=== PATIENT | female | born 1965 | race Caucasian/White ===

== ENCOUNTER → 2017-10-24 01:06 | Outpatient (CLI) | payer MEDICARE, MEDICAID, SELFPAY ==
--- NOTE | 2017-10-24 13:10 | DI.REPORT_ITS ---
SYMPTOMS/DIAGNOSIS: SCREENING MAMMOGRAM: Mammograms were interpreted according to the usual protocol including computer analysis with CAD system, tomosynthesis and C view imaging. Comparison is made with exams from 2009 through 2015. The breasts are composed of scattered fibroglandular densities, breast density Category B. No suspicious masses or suspicious microcalcifications are seen. There has been no significant change. IMPRESSION: Category I B, negative mammogram. Routine screening is recommended. SA ASSESSMENT OF FINDINGS: Negative. Category 1. Patient will receive a letter notifying them of these results. BI-RADS category B. There are scattered areas of fibroglandular density.
== END ==
PROVIDERS: PCP Family Medicine; Visit Provider Nurse Practitioner Primary Care
DX: Z12.31 Encounter for screening mammogram for malignant neoplasm of breast (principal)
CPT/HCPCS: 77063; 77067

== ENCOUNTER 2017-12-22 17:17 | Emergency (ER) | payer MEDICARE, SELFPAY ==
[2017-12-22 17:31] VITALS: BP 149/85; PULSE 70; RESP 18; TEMP 36.7; O2SAT 96
--- NOTE | 2017-12-22 18:19 | DI.CT_ITS ---
SYMPTOM/DIAGNOSIS: RT POST EAR PAIN TEMPORAL BONE CT: CT examination of the temporal region was performed without contrast administration. The visualized brain is unremarkable in appearance. Orbital structures appear intact. Paranasal sinuses and mastoid air cells well aerated. No cervical mass or adenopathy. Severe degenerative changes of the temporal mandibular joints noted, left greater than right, with some fragmentation of the mandibular condyle on the left, progressed since 07/29/14. The middle and inner ear structures appear intact as visualized. CONCLUSION: No evidence of mastoiditis. Severe TMJ degenerative changes, left greater than right.
[2017-12-22] MEDS: Acetaminophen 500 MG TAB 1000 MG PO (18:23)
--- NOTE | 2017-12-22 18:24 | W.ED.GENAD ---
Discharge Plan Disposition Patient Disposition: HOME Condition: Good Discharge Details Chief Complaint: EarProblem Clinical Impression: Swelling of right ear, Acute right otitis media Primary Care Provider: Chano Neves ED Provider: Aaron Puente Home Meds and New Rx's Prescriptions: New amoxicillin 500 mg capsule 500 mg PO BID Qty: 20 RF: 0 Continue acetaminophen [Acetaminophen Extra Strength] 500 MG tablet 1,000 mg PO Q6H PRN RF: 0 amlodipine 10 MG tablet 10 mg PO DAILY RF: 0 aspirin 81 MG tablet,chewable 81 mg PO DAILY RF: 0 sucroferric oxyhydroxide [Velphoro] 500 MG tablet,chewable 500 - 1,000 mg PO as directed RF: 0 omeprazole 20 MG capsule,delayed release(DR/EC) 40 mg PO BID RF: 0 ibuprofen 400 MG tablet 400 mg PO Q6H PRN RF: 0 albuterol sulfate [ProAir HFA] 8.5 GM HFA aerosol inhaler 2 puff Inhalation Q4H PRN RF: 0 PROVENTIL HFA 18 GM HFA.AER.AD 2 puff Inhalation BID RF: 0 tiotropium bromide [Spiriva Respimat] 4 GM mist 1 puff Inhalation BID RF: 0 atorvastatin 40 MG tablet 40 mg PO DAILY Qty: 90 RF: 3 fosinopril 20 MG tablet 20 mg PO BID 3 Days Qty: 180 RF: 3 ondansetron 4 MG tablet,disintegrating 4 mg PO Q8H PRNQty: 10 RF: 1 minoxidil 2.5 MG tablet 2.5 - 5 mg PO BID RF: 0 metoprolol tartrate 50 MG tablet 50 mg PO BID RF: 0 Discharge Instructions Instructions: Otitis Media (ED) Discharge Data Discharge Physician: Aaron Puente Medical Decision Making Patient with hx of esrd on dialysis mwf who comes in with cc of right ear pain since yesterday. 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 Will start abx for AOM and d/c home, advised f/u with pcp and return precautions given Differential Diagnosis aom, mastotoiditis, cellulitis Imaging Data Radiologic Study: Attestation: I personally reviewed and interpreted this imaging study as follows: Imaging: CT Scan My impression: no acute findings Radiologist's impression: no acute findings on cat scan, left tmj djd HPI General Mode of arrival: ambulatory. Date/Time Provider Initiated Documentation: 12/22/17 17:51. Limitations to Documentation: no limitations. Information obtained by: patient. History of Present Illness 52 year old F presents to the emergency department with the chief complaint of right ear pain, described as severe, with intensity rated at 7. Quality is described as constant, Patient reports no radiation. Patient started experiencing this day(s) (1) and it has been constant. No relieving factors improve symptom(s), No exacerbating factors reported . Patient notes no other symptoms.. Related Data Home Medications Medication Instructions Recorded Confirmed acetaminophen [Acetaminophen Extra 1,000 mg PO Q6H PRN tab-cap 05/24/16 12/22/17 Strength] amlodipine 10 mg PO DAILY tab-cap 05/24/16 12/22/17 aspirin 81 mg PO DAILY tab-cap 05/24/16 12/22/17 sucroferric oxyhydroxide [Velphoro] 500 - 1,000 mg PO as directed 05/24/16 12/22/17 tab.chew omeprazole 40 mg PO BID tab-cap 05/30/17 12/22/17 Proventil Hfa 2 puff INHALATION BID inhaler 07/26/17 12/22/17 albuterol sulfate [ProAir HFA] 2 puff INHALATION Q4H PRN inhaler 07/26/17 12/22/17 atorvastatin 40 mg PO DAILY #90 tab-cap 07/26/17 12/22/17 fosinopril 20 mg PO BID 3 Days #180 tab-cap 07/26/17 12/22/17 ibuprofen 400 mg PO Q6H PRN tab-cap 07/26/17 12/22/17 tiotropium bromide [Spiriva 1 puff INHALATION BID 07/26/17 12/22/17 Respimat] ondansetron 4 mg PO Q8H PRN #10 tabef 08/11/17 12/22/17 metoprolol tartrate 50 mg PO BID tab-cap 08/27/17 12/22/17 minoxidil 2.5 - 5 mg PO BID 08/27/17 12/22/17 amoxicillin 500 mg PO BID #20 cap 10/12/18 Previous Rx's Medication Instructions Recorded atorvastatin 40 mg PO DAILY #90 tab-cap 07/26/17 amoxicillin 500 mg PO BID #20 cap 12/22/17 Allergies Allergy/AdvReac Type Severity Reaction Status Date / Time cephalexin monohydrate Allergy Severe trouble Unverified 12/22/17 17:37 [From Keflex] breathing allopurinol AdvReac Intermediate gout Unverified 12/22/17 17:37 breakout erythromycin base AdvReac Intermediate gout Unverified 12/22/17 17:37 breakout General Stated Complaint: EarProblem AWA: 3 Review of Systems Review of Systems All systems reviewed & are unremarkable except as noted in HPI and below Constitutional Denies chills, Denies fever(s) and Denies weakness Eyes Denies loss of vision ENT Denies change in voice Cardiovascular Denies chest pain and Denies dyspnea Respiratory Denies dyspnea Gastrointestinal Denies abdominal pain, Denies nausea and Denies vomiting Genitourinary Denies dysuria Musculoskeletal Denies joint swelling Integumentary/Breasts Denies rash Neurologic Denies loss of vision and Denies weakness Psychiatric Denies depression Endocrine Denies cold intolerance and Denies heat intolerance Allergic/Immunologic Reports urticaria PFSH Family History Mother Essential hypertension Personal history of malignant neoplasm Heart disease Pulmonary emphysema Father Personal history of malignant neoplasm Pulmonary emphysema Brother Hyperlipidemia Brother Hyperlipidemia Brother No problems noted. Social History Smoking/Tobacco Use Status: Former Tobacco Use Surgical History Abdominal hysterectomy (~2006) Repair of umbilical hernia TRANSPLANT, KIDNEY (~1997) Exam Const General: no acute distress Orientation: alert [facility] Head: normal to inspection Ears: other (right tm is red, external audiory meatus normal, has tenderness with mild swelling posterior to the right ear) General nose exam: external nose normal Mouth: moist mucous membranes Eyes General: appearance normal, both eyes and all related structures Neck Neck: normal visual inspection Resp Effort & Inspection: normal respiratory effort and able to speak in complete sentences Cardio Rate: regular rate Skin General skin exam: no rashes or lesions noted Neuro General: alert and oriented x3 Extrem General: normal to inspection Psych Mental Status: mental status grossly normal Course Vital Signs Temperature 36.7 C 10/12/18 17:31 Pulse 70 12/22/17 17:31 Respiratory Rate 18 12/22/17 17:31 Blood Pressure 149/85 H 12/22/17 17:31 Pulse Oximetry 96 12/22/17 17:31 Temperature 36.7 C 12/22/17 17:31 Temperature Source Temporal Artery Scan 12/22/17 17:31 Pulse 70 12/22/17 17:31 Respiratory Rate 18 12/22/17 17:31 Respiratory Effort Non-Labored 12/22/17 17:35 Blood Pressure 149/85 H 12/22/17 17:31 Blood Pressure Position Sitting 12/22/17 17:31 Pulse Oximetry 96 12/22/17 17:31 Oxygen Delivery Method Room Air 12/22/17 17:31 Oxygen Flow Rate 0 12/22/17 17:31 Pain Level 9 12/22/17 17:31 Lab/Test Results Lab/Test Results: Laboratory Tests Range/Units 12/22/17 12/22/17 18:11 18:11 WBC Cancelled RBC Cancelled Hgb Cancelled Hct Cancelled MCV Cancelled MCH Cancelled MCHC Cancelled RDW Cancelled Plt Count Cancelled MPV Cancelled Abs Immat Gran (auto) Cancelled Immature Gran % Cancelled Neutrophils % Cancelled Lymphocytes % Cancelled Monocytes % Cancelled Eosinophils % Cancelled Basophils % Cancelled Absolute Neutrophils Cancelled Band Neutrophils Cancelled Absolute Lymphocytes Cancelled Absolute Monocytes Cancelled Absolute Eosinophils Cancelled Absolute Basophils Cancelled Metamyelocytes Cancelled Myelocytes Cancelled Promyelocytes Cancelled Nucleated RBCs Cancelled Differential Comment Cancelled Atypical Lymphocytes Cancelled Other Cell Type Cancelled RBC Morphology Cancelled Polychromasia Cancelled Hypochromasia Cancelled Poikilocytosis Cancelled Basophilic Stippling Cancelled Anisocytosis Cancelled Microcytosis Cancelled Macrocytosis Cancelled Spherocytes Cancelled Target Cells Cancelled Tear Drop Cells Cancelled Ovalocytes Cancelled Stomatocytes Cancelled [place] Bodies Cancelled Gigi Cells Cancelled Acanthocytes (Spur) Cancelled Schistocytes Cancelled Sodium Cancelled Potassium Cancelled Chloride Cancelled Carbon Dioxide Cancelled Anion Gap Cancelled BUN Cancelled Creatinine Cancelled Estimated GFR/1.73 m2 Cancelled Glucose Cancelled Calcium Cancelled Total Bilirubin Cancelled AST Cancelled ALT Cancelled Alkaline Phosphatase Cancelled Total Protein Cancelled Albumin Cancelled
--- NOTE | 2017-12-22 19:19 | DI.VRAD_ITS ---
EXAM: CT Temporal Bones Without Intravenous Contrast CLINICAL HISTORY: 52 years old, female; Pain; Other: Ear pain; Patient HX: Right posterior ear pain; Additional info: R/O mastoiditis TECHNIQUE: Axial computed tomography images of the temporal bones without intravenous contrast. Coronal and sagittal reformatted images were created and reviewed. COMPARISON: CT HEAD WITHOUT CONTRAST 07/29/2014 11:25 AM FINDINGS: The middle ear is well aerated bilaterally. The mastoid air cells are well aerated bilaterally. The ossicles, semicircular canals and cochlea appear intact bilaterally. No focal bony erosions are present. Bones/joints: Marked erosive changes at the left temporal mandibular joint. No acute fracture. Soft tissues: No focal pathology. Dental: Dental caries. Oropharynx: Tonsilloliths. IMPRESSION: 1. No acute findings. No evidence of otitis or mastoiditis. 2. Marked erosive changes at the left temporomandibular joint. Dictated and Authenticated by: Korina Henderson MD. Ordering:JAMES CORDOVA MD
[2017-12-22] MEDS: Amoxicillin 500 MG CAP PO (19:30)
[2017-12-22 19:32] VITALS: TEMP 36.4
== END 2017-12-22 19:36 | disposition home or self-care (01) ==
PROVIDERS: Emergency Provider Emergency Medicine; PCP Family Medicine
DX: H66.91 Otitis media, unspecified, right ear (principal); R22.0 Localized swelling, mass and lump, head; Z99.2 Dependence on renal dialysis; I12.0 Hypertensive chronic kidney disease with stage 5 chronic kidney disease or end stage renal disease; N18.6 End stage renal disease; J44.9 Chronic obstructive pulmonary disease, unspecified; Z87.891 Personal history of nicotine dependence
CPT/HCPCS: 80053; 99284; 70480; 85025; 99285

== ENCOUNTER 2018-01-02 15:35 | Emergency (ER) | payer MEDICARE, SELFPAY ==
[2018-01-02] VITALS (24 sets, daily range): BP systolic 142–163; BP diastolic 76–104; PULSE 60–66; RESP 2–30; TEMP 36.8–37; O2SAT 90–99
--- NOTE | 2018-01-02 16:34 | DI.RAD_ITS ---
SYMPTOMS/DIAGNOSIS: COUGH, SHORTNESS OF BREATH PA AND LATERAL CHEST: Comparison is made with June,. Cardiomegaly and aortic valve prosthesis are again noted. There are leads overlying the chest. There is a density seen posteriorly, which may be in the left lower lobe, suspicious for pneumonia. The right lung appears clear. IMPRESSION: Findings suspicious for left lower lobe pneumonia.
[2018-01-02] MEDS: Albuterol/Ipratropium 3 ML UPD VIAL UPD (16:39)
--- NOTE | 2018-01-02 16:39 | W.ED.GENAD ---
Discharge Plan Disposition Patient Disposition: HOME Condition: Stable Discharge Details Chief Complaint: Chest Pain Clinical Impression: Pneumonia, COPD (chronic obstructive pulmonary disease) Primary Care Provider: Chano Neves ED Provider: Benjy Espinoza Home Meds and New Rx's Prescriptions: New levofloxacin 500 mg tablet 500 mg PO Q48H Qty: 3 RF: 0 No Action acetaminophen [Acetaminophen Extra Strength] 500 MG tablet 1,000 mg PO Q6H PRN RF: 0 amlodipine 10 MG tablet 10 mg PO DAILY RF: 0 aspirin 81 MG tablet,chewable 81 mg PO DAILY RF: 0 sucroferric oxyhydroxide [Velphoro] 500 MG tablet,chewable 500 - 1,000 mg PO as directed RF: 0 omeprazole 20 MG capsule,delayed release(DR/EC) 40 mg PO BID RF: 0 ibuprofen 400 MG tablet 400 mg PO Q6H PRN RF: 0 albuterol sulfate [ProAir HFA] 8.5 GM HFA aerosol inhaler 2 puff Inhalation Q4H PRN RF: 0 PROVENTIL HFA 18 GM HFA.AER.AD 2 puff Inhalation BID RF: 0 tiotropium bromide [Spiriva Respimat] 4 GM mist 1 puff Inhalation BID RF: 0 atorvastatin 40 MG tablet 40 mg PO DAILY Qty: 90 RF: 3 fosinopril 20 MG tablet 20 mg PO BID 3 Days Qty: 180 RF: 3 ondansetron 4 MG tablet,disintegrating 4 mg PO Q8H PRNQty: 10 RF: 1 minoxidil 2.5 MG tablet 2.5 - 5 mg PO BID RF: 0 metoprolol tartrate 50 MG tablet 50 mg PO BID RF: 0 amoxicillin 500 mg capsule 500 mg PO BID Qty: 20 RF: 0 Discharge Instructions Instructions: COPD (Chronic Obstructive Pulmonary Disease) (ED), Pneumonia (ED) Additional Instructions: Feel free to return to the emergency department for any new or significant worsening of symptoms. Otherwise take your normally prescribed medication for your COPD and other conditions as prescribed by your primary care provider. With your antibiotic you should take this every 48 hours. Referrals: Chano Neves [Primary Care Provider] - 1 week (Follow-up with your primary care provider for reassessment in the next week. ) Discharge Data Discharge Date/Time-TO BE ENTERED AT DEPARTURE: 01/02/18 18:24 Medical Decision Making <Benjy Espinoza NP - Last Filed: 01/10/18 09:19> Patient presenting to the emergency department with chief complaint of chest pain, cough, malaise for the past 2 days. Patient does have history of COPD but states that this feels different. Physical exam does reveal crackles and diminished lung sounds throughout. Plan to check labs including troponin, perform chest x-ray, and EKG. Suspect pneumonia versus COPD exacerbation more than ACS. Pending results patient given DuoNeb Review of labs is nondiagnostic with no severe leukocytosis and no elevation in troponin. X-ray shows opacities in the left lower lobe and otherwise findings consistent with COPD. Given these opacities I do suspect pneumonia so patient placed upon Levaquin. Patient did have improvement of symptoms after DuoNeb. Patient to return for any new or significant worsening of symptoms otherwise follow-up with primary care as needed for reassessment. After discussion of diagnosis and plan of care patient has no further needs, questions, or concerns and states clear understanding to return to the emergency department for any worsening symptoms. Lab Data Lab results reviewed: Yes I reviewed the patient's lab results. <Justice Cooper MD - Last Filed: 01/02/18 17:47> ECG Data Attestation: I personally reviewed and interpreted this ECG (s) as follows: (Sinus rhythm 64 bpm, right bundle branch block is present, normal axis, nondiagnostic and no significant changes compared to prior EKG from 06/23/2017) HPI <Benjy Espinoza NP - Last Filed: 01/10/18 09:19> General Mode of arrival: ambulatory. Date/Time Provider Initiated Documentation: 01/02/18 16:17. Limitations to Documentation: no limitations. Information obtained by: patient and RN notes reviewed. History of Present Illness 52 year old F presents to the emergency department with the chief complaint of Chest pain, described as moderate, with intensity rated at 5. Quality is described as dull, and is localized to the chest. Patient started experiencing this day(s) (2) and it has been constant. No relieving factors improve symptom(s), Other factors that worsen symptoms (activity) . Related Data Home Medications Medication Instructions Recorded Confirmed acetaminophen [Acetaminophen Extra 1,000 mg PO Q6H PRN tab-cap 05/24/16 12/22/17 Strength] amlodipine 10 mg PO DAILY tab-cap 05/24/16 12/22/17 aspirin 81 mg PO DAILY tab-cap 05/24/16 12/22/17 sucroferric oxyhydroxide [Velphoro] 500 - 1,000 mg PO as directed 05/24/16 12/22/17 tab.chew omeprazole 40 mg PO BID tab-cap 05/30/17 12/22/17 Proventil Hfa 2 puff INHALATION BID inhaler 07/26/17 12/22/17 albuterol sulfate [ProAir HFA] 2 puff INHALATION Q4H PRN inhaler 07/26/17 12/22/17 atorvastatin 40 mg PO DAILY #90 tab-cap 07/26/17 12/22/17 fosinopril 20 mg PO BID 3 Days #180 tab-cap 07/26/17 12/22/17 ibuprofen 400 mg PO Q6H PRN tab-cap 07/26/17 12/22/17 tiotropium bromide [Spiriva 1 puff INHALATION BID 07/26/17 12/22/17 Respimat] ondansetron 4 mg PO Q8H PRN #10 tabef 08/11/17 12/22/17 metoprolol tartrate 50 mg PO BID tab-cap 08/27/17 12/22/17 minoxidil 2.5 - 5 mg PO BID 08/27/17 12/22/17 amoxicillin 500 mg PO BID #20 cap 12/22/17 levofloxacin 500 mg PO Q48H #3 tab 01/02/18 Previous Rx's Medication Instructions Recorded atorvastatin 40 mg PO DAILY #90 tab-cap 07/26/17 amoxicillin 500 mg PO BID #20 cap 12/22/17 levofloxacin 500 mg PO Q48H #3 tab 01/02/18 Allergies Allergy/AdvReac Type Severity Reaction Status Date / Time cephalexin monohydrate Allergy Severe trouble Unverified 12/22/17 17:37 [From Keflex] breathing allopurinol AdvReac Intermediate gout Unverified 12/22/17 17:37 breakout erythromycin base AdvReac Intermediate gout Unverified 12/22/17 17:37 breakout General Stated Complaint: Chest Pain AWA: 2 Review of Systems <Benjy Espinoza NP - Last Filed: 01/10/18 09:19> Constitutional Denies chills, Reports fatigue, Denies fever(s) and Reports malaise ENT Denies hoarseness, Denies nasal congestion, Denies sinus pressure and Denies sore throat Cardiovascular Reports chest pain, Reports dyspnea and Reports dyspnea on exertion Respiratory Reports as per HPI, Reports chest congestion, Reports cough, Reports pain with cough, Reports dyspnea, Reports dyspnea on exertion and Denies wheezing Gastrointestinal Reports vomiting Musculoskeletal Denies joint swelling Integumentary/Breasts Denies rash Endocrine Reports fatigue Allergic/Immunologic Denies wheezing Exam <Benjy Espinoza NP - Last Filed: 01/10/18 09:19> Const General: cooperative, comfortable and no acute distress Orientation: alert, awake and oriented x3 HENMT Head: normal to inspection Ears: hearing grossly normal bilaterally Face and sinus: normal facial exam Mouth: oral mucosae normal Throat: posterior oropharynx normal Eyes General: appearance normal, both eyes and all related structures Conjunctivae: conjunctivae normal Sclera: sclerae normal Neck Neck: normal visual inspection, full ROM, no lymphadenopathy, meningismus present and no JVD Resp Effort & Inspection: normal respiratory effort, able to speak in complete sentences, no audible wheezes, cough Quality of cough: productive, not labored, no pursed lip breathing and no respiratory distress Auscultation: crackles on the right at the base and diminished lung sounds bilaterally throughout Cardio Rate: regular rate Rhythm: regular rhythm Heart Sounds: S1 normal, S2 normal and murmur systolic Skin General skin exam: no rashes or lesions noted and dry skin Rashes: no rashes Neuro General: alert, awake, oriented x3 and gait normal Course <Benjy Espinoza, KATALINA - Last Filed: 01/10/18 09:19> Vital Signs Temperature 37 C 01/02/18 15:59 Pulse 62 01/02/18 15:59 Respiratory Rate 24 01/02/18 15:59 Blood Pressure 149/76 H 01/02/18 15:59 Pulse Oximetry 99 01/02/18 15:59 Temperature 37 C 01/02/18 15:59 Temperature Source Skin 01/02/18 15:59 Pulse 62 01/02/18 15:59 Respiratory Rate 24 01/02/18 15:59 Respiratory Effort Labored 01/02/18 16:18 Respiratory Depth Normal 01/02/18 16:18 Respiratory Pattern Normal 01/02/18 16:18 Blood Pressure 149/76 H 01/02/18 15:59 Blood Pressure Position Sitting 01/02/18 15:59 Pulse Oximetry 99 01/02/18 15:59 Oxygen Delivery Method Room Air 01/02/18 15:59 Oxygen Flow Rate 0 01/02/18 15:59 Pain Level 5 01/02/18 15:59
[2018-01-02 16:42] LABS: Abs Immature Grans 0.04 k/cumm (0.0-0.09); Absolute Basophil Count 0.07 k/cumm (0.0-0.2); Absolute Eosinophil Count 0.45 k/cumm (0.0-0.7); Absolute Lymphocyte Count 1.16 k/cumm (1.2-3.4); Absolute Monocyte Count 0.94 k/cumm (0.11-0.7); Absolute Neutrophil Count 5.06 k/cumm (1.2-6.7); Basophils % 0.9; Eosinophils % 5.8; HCT 36.1 % (36.0-46.0); HGB 11.5 g/dL (12.0-15.5); Immature Grans % 0.5; Mean Corp. HGB Concentration 31.9 g/dL (32.0-36.0); Mean Corpuscular Hemoglobin 31.6 pg (27.0-33.0); Mean Corpuscular Volume 99.2 fL (80-95); Monocytes % 12.2; Neutrophils % 65.6; Platelet Count 177 x1000/uL (130-400); RBC 3.64 m/cumm (4.00-5.20); RBC Distribution Width 15.1 % (11.7-14.6); White Blood Cell Count 7.72 k/cumm (4.4-10.8)
--- NOTE | 2018-01-02 16:44 | ED.GENADUL_ITS ---
Discharge Plan Disposition Patient Disposition: HOME Condition: Stable Discharge Details Chief Complaint: Chest Pain Clinical Impression: Pneumonia, COPD (chronic obstructive pulmonary disease) Primary Care Provider: Chano Neves ED Provider: Benjy Espinoza Home Meds and New Rx's Prescriptions: New levofloxacin 500 mg tablet 500 mg PO Q48H Qty: 3 RF: 0 No Action acetaminophen [Acetaminophen Extra Strength] 500 MG tablet 1,000 mg PO Q6H PRN RF: 0 amlodipine 10 MG tablet 10 mg PO DAILY RF: 0 aspirin 81 MG tablet,chewable 81 mg PO DAILY RF: 0 sucroferric oxyhydroxide [Velphoro] 500 MG tablet,chewable 500 - 1,000 mg PO as directed RF: 0 omeprazole 20 MG capsule,delayed release(DR/EC) 40 mg PO BID RF: 0 ibuprofen 400 MG tablet 400 mg PO Q6H PRN RF: 0 albuterol sulfate [ProAir HFA] 8.5 GM HFA aerosol inhaler 2 puff Inhalation Q4H PRN RF: 0 PROVENTIL HFA 18 GM HFA.AER.AD 2 puff Inhalation BID RF: 0 tiotropium bromide [Spiriva Respimat] 4 GM mist 1 puff Inhalation BID RF: 0 atorvastatin 40 MG tablet 40 mg PO DAILY Qty: 90 RF: 3 fosinopril 20 MG tablet 20 mg PO BID 3 Days Qty: 180 RF: 3 ondansetron 4 MG tablet,disintegrating 4 mg PO Q8H PRNQty: 10 RF: 1 minoxidil 2.5 MG tablet 2.5 - 5 mg PO BID RF: 0 metoprolol tartrate 50 MG tablet 50 mg PO BID RF: 0 amoxicillin 500 mg capsule 500 mg PO BID Qty: 20 RF: 0 Discharge Instructions Instructions: COPD (Chronic Obstructive Pulmonary Disease) (ED), Pneumonia (ED) Additional Instructions: Feel free to return to the emergency department for any new or significant worsening of symptoms. Otherwise take your normally prescribed medication for your COPD and other conditions as prescribed by your primary care provider. With your antibiotic you should take this every 48 hours. Referrals: Chano Neves [Primary Care Provider] - 1 week (Follow-up with your primary care provider for reassessment in the next week. ) Discharge Data Discharge Date/Time-TO BE ENTERED AT DEPARTURE: 01/02/18 18:24 Medical Decision Making <Benjy Espinoza NP - Last Filed: 01/10/18 09:19> Patient presenting to the emergency department with chief complaint of chest pain, cough, malaise for the past 2 days. Patient does have history of COPD but states that this feels different. Physical exam does reveal crackles and diminished lung sounds throughout. Plan to check labs including troponin, perform chest x-ray, and EKG. Suspect pneumonia versus COPD exacerbation more than ACS. Pending results patient given DuoNeb Review of labs is nondiagnostic with no severe leukocytosis and no elevation in troponin. X-ray shows opacities in the left lower lobe and otherwise findings consistent with COPD. Given these opacities I do suspect pneumonia so patient placed upon Levaquin. Patient did have improvement of symptoms after DuoNeb. Patient to return for any new or significant worsening of symptoms otherwise follow-up with primary care as needed for reassessment. After discussion of diagnosis and plan of care patient has no further needs, questions, or concerns and states clear understanding to return to the emergency department for any worsening symptoms. Lab Data Lab results reviewed: Yes I reviewed the patient's lab results. <Justice Cooper MD - Last Filed: 01/02/18 17:47> ECG Data Attestation: I personally reviewed and interpreted this ECG (s) as follows: ( Sinus rhythm 64 bpm, right bundle branch block is present, normal axis, nondiagnostic and no significant changes compared to prior EKG from 06/23/2017) HPI <Benjy Espinoza NP - Last Filed: 01/10/18 09:19> General Mode of arrival: ambulatory . Date/Time Provider Initiated Documentation: 01/02/18 16:17 . Limitations to Documentation: no limitations . Information obtained by: patient and RN notes reviewed . History of Present Illness 52 year old F presents to the emergency department with the chief complaint of Chest pain, described as moderate, with intensity rated at 5. Quality is described as dull, and is localized to the chest. Patient started experiencing this day(s) (2) and it has been constant. No relieving factors improve symptom(s), Other factors that worsen symptoms (activity) . Related Data Home Medications Medication Instructions Recorded Confirmed acetaminophen [Acetaminophen Extra 1,000 mg PO Q6H PRN tab-cap 05/24/16 Strength] amlodipine 10 mg PO DAILY tab-cap 05/24/16 12/22/17 aspirin 81 mg PO DAILY tab-cap 05/24/16 12/22/17 sucroferric oxyhydroxide [Velphoro] 500 - 1,000 mg PO as directed 05/24/1612/22 tab.chew omeprazole 40 mg PO BID tab-cap 05/30/17 12/22/17 Proventil Hfa 2 puff INHALATION BID inhaler 07/26/17 12/22/17 albuterol sulfate [ProAir HFA] 2 puff INHALATION Q4H PRN inhaler 07/26/1712/22 atorvastatin 40 mg PO DAILY #90 tab-cap 07/26/17 12/22/17 fosinopril 20 mg PO BID 3 Days #180 tab-cap 07/26/17 12/22/17 ibuprofen 400 mg PO Q6H PRN tab-cap 07/26/17 12/22/17 tiotropium bromide [Spiriva 1 puff INHALATION BID 07/26/17 12/22/17 Respimat] ondansetron 4 mg PO Q8H PRN #10 tabef 08/11/17 12/22/17 metoprolol tartrate 50 mg PO BID tab-cap 08/27/17 12/22/17 minoxidil 2.5 - 5 mg PO BID 08/27/17 12/22/17 amoxicillin 500 mg PO BID #20 cap 12/22/17 levofloxacin 500 mg PO Q48H #3 tab 01/02/18 Previous Rx's Medication Instructions Recorded atorvastatin 40 mg PO DAILY #90 tab-cap 07/26/17 amoxicillin 500 mg PO BID #20 cap 12/22/17 levofloxacin 500 mg PO Q48H #3 tab 01/02/18 Allergies Allergy/AdvReac Type Severity Reaction Status Date / Time cephalexin monohydrate Allergy Severe trouble Unverified 12/22/17 17:37 [From Keflex] breathing allopurinol AdvReac Intermediate gout Unverified 12/22/17 17:37 breakout erythromycin base AdvReac Intermediate gout Unverified 12/22/17 17:37 breakout General Stated Complaint: Chest Pain AWA: 2 Review of Systems <Benjy Espinoza NP - Last Filed: 01/10/18 09:19> Constitutional Denies chills, Reports fatigue, Denies fever(s) and Reports malaise ENT Denies hoarseness, Denies nasal congestion, Denies sinus pressure and Denies sore throat Cardiovascular Reports chest pain, Reports dyspnea and Reports dyspnea on exertion Respiratory Reports as per HPI, Reports chest congestion, Reports cough, Reports pain with cough, Reports dyspnea, Reports dyspnea on exertion and Denies wheezing Gastrointestinal Reports vomiting Musculoskeletal Denies joint swelling Integumentary/Breasts Denies rash Endocrine Reports fatigue Allergic/Immunologic Denies wheezing Exam <Benjy Espinoza NP - Last Filed: 01/10/18 09:19> Const General: cooperative, comfortable and no acute distress Orientation: alert, awake and oriented x3 HENMT Head: normal to inspection Ears: hearing grossly normal bilaterally Face and sinus: normal facial exam Mouth: oral mucosae normal Throat: posterior oropharynx normal Eyes General: appearance normal, both eyes and all related structures Conjunctivae: conjunctivae normal Sclera: sclerae normal Neck Neck: normal visual inspection, full ROM, no lymphadenopathy, meningismus present and no JVD Resp Effort & Inspection: normal respiratory effort, able to speak in complete sentences, no audible wheezes, cough Quality of cough: productive, not labored, no pursed lip breathing and no respiratory distress Auscultation: crackles on the right at the base and diminished lung sounds bilaterally throughout Cardio Rate: regular rate Rhythm: regular rhythm Heart Sounds: S1 normal, S2 normal and murmur systolic Skin General skin exam: no rashes or lesions noted and dry skin Rashes: no rashes Neuro General: alert, awake, oriented x3 and gait normal Course <Benjy Espinoza, KATALINA - Last Filed: 01/10/18 09:19> Vital Signs Temperature 37 C 01/02/18 15:59 Pulse 62 01/02/18 15:59 Respiratory Rate 24 01/02/18 15:59 Blood Pressure 149/76 H 01/02/18 15:59 Pulse Oximetry 99 01/02/18 15:59 Temperature 37 C 01/02/18 15:59 Temperature Source Skin 01/02/18 15:59 Pulse 62 01/02/18 15:59 Respiratory Rate 24 01/02/18 15:59 Respiratory Effort Labored 01/02/18 16:18 Respiratory Depth Normal 01/02/18 16:18 Respiratory Pattern Normal 01/02/18 16:18 Blood Pressure 149/76 H 01/02/18 15:59 Blood Pressure Position Sitting 01/02/18 15:59 Pulse Oximetry 99 01/02/18 15:59 Oxygen Delivery Method Room Air 01/02/18 15:59 Oxygen Flow Rate 0 01/02/18 15:59 Pain Level 5 01/02/18 15:59
[2018-01-02 16:50] LABS: ALT 27 U/L (12-78); AST 30 U/L (15-37); Albumin 3.9 g/dL (3.4-5.0); Alkaline Phosphatase 285 U/L (46-116); BUN 29 mg/dL (7-18); Bilirubin, Total 0.9 mg/dL (0.2-1.0); Calcium 9.1 mg/dL (8.5-10.1); Chloride 95 mmol/L (98-107); Estimated GFR 5.84 (mL/min/1.73m2); Glucose 96 mg/dL (70-100); Potassium 4.3 mmol/L (3.5-5.1); Sodium 138 mmol/L (136-145); Total Protein 7.9 g/dL (6.4-8.2)
[2018-01-02 17:02] LABS: CREATININE 7.29 mg/dL (0.55-1.02); Troponin I < 0.02 ng/mL (0.00-0.06)
--- NOTE | 2018-01-02 17:22 | DI.VRAD_ITS ---
EXAM: XR Chest, 2 Views EXAM DATE/TIME: 01/02/2018 4:36 PM CLINICAL HISTORY: 52 years old, female; Signs and symptoms; Other: Cough, SOB TECHNIQUE: XR of the chest, 2 views. COMPARISON: CR CHEST 2 VIEWS PA,LAT 06/23/2017 11:12 AM FINDINGS: Lungs: Hyperexpanded lung knox consistent with COPD. Mild opacities in the left lower lobe were not present on the prior study. This may represent mild atelectasis or pneumonia. Pleural space: Unremarkable. No pleural effusion. No pneumothorax. Heart/Mediastinum: Cardiac valve replacement Stable cardiac silhouette Bones/joints: Median sternotomy IMPRESSION: 1. Hyperexpanded lung knox consistent with COPD. 2. Mild opacities in the left lower lobe were not present on the prior study. This may represent mild atelectasis or pneumonia. Dictated and Authenticated by: Yao Lanier MD. Ordering:JESSIKA SCHMIDT MD
[2018-01-02] MEDS: LEVOFLOXACIN 500 MG, LEVOFLOXACIN 250 MG 750 MG PO (18:19)
== END 2018-01-02 18:24 | disposition home or self-care (01) ==
PROVIDERS: Emergency Provider Nurse Practitioner Family; PCP Family Medicine
DX: J18.9 Pneumonia, unspecified organism (principal); J44.9 Chronic obstructive pulmonary disease, unspecified; Z87.891 Personal history of nicotine dependence; N18.6 End stage renal disease; I12.0 Hypertensive chronic kidney disease with stage 5 chronic kidney disease or end stage renal disease; Z99.2 Dependence on renal dialysis
CPT/HCPCS: 36415; 80053; 93005; 94640; 99285; 71046; 84484; 85025; 93010; 99284; J7620

== ENCOUNTER 2018-02-12 18:45 | Emergency (ER) | payer MEDICARE, SELFPAY ==
[2018-02-12 18:53] VITALS: BP 180/98; PULSE 69; RESP 18; TEMP 37.2; O2SAT 96
--- NOTE | 2018-02-12 19:00 | DI.CT_ITS ---
SYMPTOMS/DIAGNOSIS: PAIN S/P FALL CT BRAIN: Noncontrast examination. Comparison is 12/22/17 and 07/29/14. The ventricular system is normal in appearance. There is no evidence of an intracranial mass lesion. There is no evidence of a subdural or epidural hematoma. No focal areas of decreased attenuation are seen. IMPRESSION: Normal noncontrast cranial CT. CT SCAN OF THE CERVICAL SPINE: Multiple contiguous axial images of the cervical spine were obtained. Sagittal and coronal reformatted images were evaluated on the Siemens workstation. There is normal alignment of the cervical spine. No acute fractures or subluxations are seen. Moderate degenerative changes are seen in the cervical spine from C3-4 though C5-C6. Prevertebral soft tissues are unremarkable. The odontoid and lateral masses are well aligned. IMPRESSION: No acute fractures or subluxations in the cervical spine. CT SCAN OF THE CHEST, ABDOMEN AND PELVIS AND RECONSTRUCTIONS OF THE THORACIC AND LUMBAR SPINE: CT SCAN OF THE ABDOMEN AND PELVIS AND RECONSTRUCTIONS OF THE LUMBAR SPINE: Comparison is 03/21/17. Lack of IV contrast does limit evaluation of the abdominal organ injury. The liver is normal in size. There is a nodular contour of the liver suggesting hepatic cirrhosis. There are gallstones present. No biliary ductal dilatation is seen. The spleen appears mildly enlarged. The pancreas and adrenal glands are unremarkable. The kidneys are again noted to be severely atrophic. The urinary bladder is unremarkable as visualized. The reproductive organs are unremarkable. There is atherosclerosis of the abdominal aorta. There is ectasia of the proximal abdominal aorta. There is diverticulosis of the colon, but no evidence of acute diverticulitis. No evidence of bowel obstruction or bowel inflammatory process. No findings to suggest an acute appendicitis are present. A normal appendix is seen in the right lower quadrant. There is a small amount of free intraperitoneal fluid, particularly around the liver. This has decreased in size compared to the examination from 03/21/17. No significant adenopathy is appreciated. The lumbar spine is intact. No acute fracture or subluxation is seen. Degenerative changes are seen in the lumbar spine, particularly the facets at L4 -5 and L5-S1. The pelvis and visualized proximal femurs are unremarkable and intact. IMPRESSION: 1. No evidence of an acute fracture or dislocation. 2. No definite abdominal or pelvic organ injury. Lack of IV contrast does limit evaluation of visceral injury. Followup as clinically appropriate. 3. Findings suggestive of hepatic cirrhosis. 4. Cholelithiasis without CT evidence of acute cholecystitis. 5. Diverticulosis without evidence of acute diverticulitis. CT SCAN OF THE CHEST AND CT RECONSTRUCTIONS OF THE THORACIC SPINE: There is patient motion artifact present. Emphysematous changes are seen in the lungs. Dependent atelectatic changes are seen in the lung bases. No focal consolidating infiltrates are present. There is a 3 mm pleural-based nodule in the left lower lobe. No other pulmonary nodules are seen. The tracheobronchial tree is unremarkable. No pleural effusion or pneumothorax is identified. There is cardiomegaly present. Coronary artery calcifications are seen. Sternal wires are in place. the patient is status post aortic valve replacement. There is calcification of the mitral annulus. No significant thoracic adenopathy is seen. There is atherosclerosis of the thoracic aorta, but no aneurysmal dilatation is appreciated. The thoracic spine is intact. No acute fracture or subluxation is seen. Wires are seen in the sternum. No acute rib fracture is appreciated. IMPRESSION: 1. No evidence of an acute fracture or dislocation. 2. No evidence of acute thoracic injury. Lack of IV contrast does limit evaluation.
[2018-02-12] MEDS: Acetaminophen 500 MG TAB 1000 MG PO (19:06)
--- NOTE | 2018-02-12 19:15 | W.ED.GENAD ---
Discharge Plan Disposition Patient Disposition: HOME Condition: Good Discharge Details Chief Complaint: Trauma Clinical Impression: Blunt head trauma, Cervical strain, Blunt abdominal trauma, Blunt chest trauma Reason For Visit: Fall Primary Care Provider: Chano Neves ED Provider: [facility] Meds and New Rx's Prescriptions: New cyclobenzaprine 10 mg tablet 10 mg PO TID PRN (Reason: muscle spasm) Qty: 20 RF: 0 Continue acetaminophen [Acetaminophen Extra Strength] 500 MG tablet 1,000 mg PO Q6H PRN RF: 0 amlodipine 10 MG tablet 10 mg PO DAILY RF: 0 aspirin 81 MG tablet,chewable 81 mg PO DAILY RF: 0 sucroferric oxyhydroxide [Velphoro] 500 MG tablet,chewable 500 - 1,000 mg PO as directed RF: 0 omeprazole 20 MG capsule,delayed release(DR/EC) 40 mg PO BID RF: 0 ibuprofen 400 MG tablet 400 mg PO Q6H PRN RF: 0 albuterol sulfate [ProAir HFA] 8.5 GM HFA aerosol inhaler 2 puff Inhalation Q4H PRN RF: 0 PROVENTIL HFA 18 GM HFA.AER.AD 2 puff Inhalation BID RF: 0 tiotropium bromide [Spiriva Respimat] 4 GM mist 1 puff Inhalation BID RF: 0 atorvastatin 40 MG tablet 40 mg PO DAILY Qty: 90 RF: 3 fosinopril 20 MG tablet 20 mg PO BID 3 Days Qty: 180 RF: 3 ondansetron 4 MG tablet,disintegrating 4 mg PO Q8H PRNQty: 10 RF: 1 minoxidil 2.5 MG tablet 2.5 - 5 mg PO BID RF: 0 metoprolol tartrate 50 MG tablet 50 mg PO BID RF: 0 levofloxacin 500 mg tablet 500 mg PO Q48H Qty: 3 RF: 0 amoxicillin 500 mg capsule 500 mg PO BID Qty: 20 RF: 0 Discharge Instructions Instructions: Cervical Strain (ED) Additional Instructions: follow up with your primary care provider in 1-2 weeks if still in pain and also discuss the findings on the cat scan of possible liver damage that could have been from alcohol use Medical Decision Making 52 yo female comes in with back elizabeth, headache and neck pain since falling earlier, she states she fell back after tripping over cat liter. Denies loc but has had headache, neck pain, upper and lower back pain and upper abdominal pain since. Given location of all of her pain and the fall will obtan CT imaging to eval for fx/dislocation. No preceding symptoms such as chest pain/pressure or lightheadedness to suggest syncope/presyncope all imaging shows no acute findings, cleared c spine clinically and has no pain in neck at this time. CT did show possible cirrhosis, she states when she was younger she did drink heavily, hasn't drank in 6 years. She was advised to f/u with pcp regarding this and will d/c home. No longer has any abdominal tenderness on exam Differential Diagnosis contusion, fracture, dislocation Imaging Data Radiologic Study: Attestation: I personally reviewed and interpreted this imaging study as follows: Imaging: CT Scan Radiologist's impression: Ct head/c spine/chest/abd/pelvis shows no acute emergent findings HPI General Mode of arrival: ambulatory. Date/Time Provider Initiated Documentation: 02/12/18 18:46. Limitations to Documentation: no limitations. Information obtained by: patient. History of Present Illness 52 year old F presents to the emergency department with the chief complaint of back pain, described as severe, Patient reports no radiation. Patient started experiencing this hour(s) (4) and it has been constant. No relieving factors improve symptom(s), No exacerbating factors reported . Patient notes no other symptoms.. Patient did receive the following treatments prior to arrival, none Related Data Home Medications Medication Instructions Recorded Confirmed acetaminophen [Acetaminophen Extra 1,000 mg PO Q6H PRN tab-cap 05/24/16 12/22/17 Strength] amlodipine 10 mg PO DAILY tab-cap 05/24/16 12/22/17 aspirin 81 mg PO DAILY tab-cap 05/24/16 12/22/17 sucroferric oxyhydroxide [Velphoro] 500 - 1,000 mg PO as directed 05/24/16 12/22/17 tab.chew omeprazole 40 mg PO BID tab-cap 05/30/17 12/22/17 Proventil Hfa 2 puff INHALATION BID inhaler 07/26/17 12/22/17 albuterol sulfate [ProAir HFA] 2 puff INHALATION Q4H PRN inhaler 07/26/17 12/22/17 atorvastatin 40 mg PO DAILY #90 tab-cap 07/26/17 12/22/17 fosinopril 20 mg PO BID 3 Days #180 tab-cap 07/26/17 12/22/17 ibuprofen 400 mg PO Q6H PRN tab-cap 07/26/17 12/22/17 tiotropium bromide [Spiriva 1 puff INHALATION BID 07/26/17 12/22/17 Respimat] ondansetron 4 mg PO Q8H PRN #10 tabef 08/11/17 12/22/17 metoprolol tartrate 50 mg PO BID tab-cap 08/27/17 12/22/17 minoxidil 2.5 - 5 mg PO BID 08/27/17 12/22/17 amoxicillin 500 mg PO BID #20 cap 12/22/17 levofloxacin 500 mg PO Q48H #3 tab 01/02/18 cyclobenzaprine 10 mg PO TID PRN #20 tab 02/12/18 Previous Rx's Medication Instructions Recorded atorvastatin 40 mg PO DAILY #90 tab-cap 07/26/17 amoxicillin 500 mg PO BID #20 cap 12/22/17 levofloxacin 500 mg PO Q48H #3 tab 01/02/18 cyclobenzaprine 10 mg PO TID PRN #20 tab 02/12/18 Allergies Allergy/AdvReac Type Severity Reaction Status Date / Time cephalexin monohydrate Allergy Severe trouble Unverified 02/12/18 18:52 [From Keflex] breathing allopurinol AdvReac Intermediate gout Unverified 02/12/18 18:52 breakout erythromycin base AdvReac Intermediate gout Unverified 02/12/18 18:52 breakout General Stated Complaint: Trauma AWA: 2 Review of Systems Review of Systems All systems reviewed & are unremarkable except as noted in HPI and below Constitutional Denies chills, Denies fever(s) and Denies weakness Eyes Denies loss of vision ENT Denies change in voice Cardiovascular Denies chest pain and Denies dyspnea Respiratory Denies dyspnea Gastrointestinal Denies vomiting Genitourinary Denies dysuria Musculoskeletal Denies joint swelling Integumentary/Breasts Denies rash Neurologic Denies loss of vision and Denies weakness Allergic/Immunologic Denies urticaria PFSH Aortic stenosis (Chronic) COPD (chronic obstructive pulmonary disease) (Chronic) ESRD on dialysis (Chronic) Family History Mother Essential hypertension Personal history of malignant neoplasm Heart disease Pulmonary emphysema Father Personal history of malignant neoplasm Pulmonary emphysema Brother Hyperlipidemia Brother Hyperlipidemia Brother No problems noted. Medical History Aortic stenosis (Chronic) COPD (chronic obstructive pulmonary disease) (Chronic) ESRD on dialysis (Chronic) Social History Smoking/Tobacco Use Status: Former Tobacco Use Surgical History Abdominal hysterectomy (~2006) Repair of umbilical hernia TRANSPLANT, KIDNEY (~1997) Social History Smoking/Tobacco Use Status: Former Tobacco Use Exam Const General: no acute distress Orientation: alert HENMT Head: normal to inspection Ears: external ears normal General nose exam: external nose normal Mouth: moist mucous membranes Eyes General: appearance normal, both eyes and all related structures Neck Neck: normal visual inspection Resp Effort & Inspection: normal respiratory effort and able to speak in complete sentences Cardio Rate: regular rate Skin General skin exam: no rashes or lesions noted Neuro General: alert and oriented x3 Extrem General: normal to inspection Psych Mental Status: mental status grossly normal Course Vital Signs Temperature 37.2 C 02/12/18 18:53 Pulse 69 02/12/18 18:53 Respiratory Rate 18 02/12/18 18:53 Blood Pressure 180/98 H 02/12/18 18:53 Pulse Oximetry 96 02/12/18 18:53 Temperature 37.2 C 02/12/18 18:53 Temperature Source Temporal Artery Scan 02/12/18 18:53 Pulse 69 02/12/18 18:53 Respiratory Rate 18 02/12/18 18:53 Respiratory Effort 02/12/18 18:57 Respiratory Depth Normal 02/12/18 18:57 Blood Pressure 180/98 H 02/12/18 18:53 Pulse Oximetry 96 02/12/18 18:53 Oxygen Delivery Method Room Air 02/12/18 18:53 Oxygen Flow Rate 0 02/12/18 18:53 Pain Level 8 02/12/18 19:06
--- NOTE | 2018-02-12 19:19 | ED.GENADUL_ITS ---
Discharge Plan Disposition Patient Disposition: HOME Condition: Good Discharge Details Chief Complaint: Trauma Clinical Impression: Blunt head trauma, Cervical strain, Blunt abdominal trauma, Blunt chest trauma Reason For Visit: Fall Primary Care Provider: Chano Neves ED Provider: Aaron Puente Davidson Meds and New Rx's Prescriptions: New cyclobenzaprine 10 mg tablet 10 mg PO TID PRN (Reason: muscle spasm) Qty: 20 RF: 0 Continue acetaminophen [Acetaminophen Extra Strength] 500 MG tablet 1,000 mg PO Q6H PRN RF: 0 amlodipine 10 MG tablet 10 mg PO DAILY RF: 0 aspirin 81 MG tablet,chewable 81 mg PO DAILY RF: 0 sucroferric oxyhydroxide [Velphoro] 500 MG tablet,chewable 500 - 1,000 mg PO as directed RF: 0 omeprazole 20 MG capsule,delayed release(DR/EC) 40 mg PO BID RF: 0 ibuprofen 400 MG tablet 400 mg PO Q6H PRN RF: 0 albuterol sulfate [ProAir HFA] 8.5 GM HFA aerosol inhaler 2 puff Inhalation Q4H PRN RF: 0 PROVENTIL HFA 18 GM HFA.AER.AD 2 puff Inhalation BID RF: 0 tiotropium bromide [Spiriva Respimat] 4 GM mist 1 puff Inhalation BID RF: 0 atorvastatin 40 MG tablet 40 mg PO DAILY Qty: 90 RF: 3 fosinopril 20 MG tablet 20 mg PO BID 3 Days Qty: 180 RF: 3 ondansetron 4 MG tablet,disintegrating 4 mg PO Q8H PRNQty: 10 RF: 1 minoxidil 2.5 MG tablet 2.5 - 5 mg PO BID RF: 0 metoprolol tartrate 50 MG tablet 50 mg PO BID RF: 0 levofloxacin 500 mg tablet 500 mg PO Q48H Qty: 3 RF: 0 amoxicillin 500 mg capsule 500 mg PO BID Qty: 20 RF: 0 Discharge Instructions Instructions: Cervical Strain (ED) Additional Instructions: follow up with your primary care provider in 1-2 weeks if still in pain and also discuss the findings on the cat scan of possible liver damage that could have been from alcohol use Medical Decision Making 52 yo female comes in with back elizabeth, headache and neck pain since falling earlier, she states she fell back after tripping over cat liter. Denies loc but has had headache, neck pain, upper and lower back pain and upper abdominal pain since. Given location of all of her pain and the fall will obtan CT imaging to eval for fx/dislocation. No preceding symptoms such as chest pain/pressure or lightheadedness to suggest syncope/presyncope all imaging shows no acute findings, cleared c spine clinically and has no pain in neck at this time. CT did show possible cirrhosis, she states when she was younger she did drink heavily, hasn't drank in 6 years. She was advised to f/u with pcp regarding this and will d/c home. No longer has any abdominal tenderness on exam Differential Diagnosis contusion, fracture, dislocation Imaging Data Radiologic Study: Attestation: I personally reviewed and interpreted this imaging study as follows: Imaging: CT Scan Radiologist's impression: Ct head/c spine/chest/abd/pelvis shows no acute emergent findings HPI General Mode of arrival: ambulatory . Date/Time Provider Initiated Documentation: 02/12/18 18:46 . Limitations to Documentation: no limitations . Information obtained by: patient . History of Present Illness 52 year old F presents to the emergency department with the chief complaint of back pain, described as severe, Patient reports no radiation. Patient started experiencing this hour(s) (4) and it has been constant. No relieving factors improve symptom(s), No exacerbating factors reported . Patient notes no other symptoms.. Patient did receive the following treatments prior to arrival, none Related Data Home Medications Medication Instructions Recorded Confirmed acetaminophen [Acetaminophen Extra 1,000 mg PO Q6H PRN tab-cap 05/24/16 Strength] amlodipine 10 mg PO DAILY tab-cap 05/24/16 12/22/17 aspirin 81 mg PO DAILY tab-cap 05/24/16 12/22/17 sucroferric oxyhydroxide [Velphoro] 500 - 1,000 mg PO as directed 05/24/1612/22 tab.chew omeprazole 40 mg PO BID tab-cap 05/30/17 12/22/17 Proventil Hfa 2 puff INHALATION BID inhaler 07/26/17 12/22/17 albuterol sulfate [ProAir HFA] 2 puff INHALATION Q4H PRN inhaler 07/26/1712/22 atorvastatin 40 mg PO DAILY #90 tab-cap 07/26/17 12/22/17 fosinopril 20 mg PO BID 3 Days #180 tab-cap 07/26/17 12/22/17 ibuprofen 400 mg PO Q6H PRN tab-cap 07/26/17 12/22/17 tiotropium bromide [Spiriva 1 puff INHALATION BID 07/26/17 12/22/17 Respimat] ondansetron 4 mg PO Q8H PRN #10 tabef 08/11/17 12/22/17 metoprolol tartrate 50 mg PO BID tab-cap 08/27/17 12/22/17 minoxidil 2.5 - 5 mg PO BID 08/27/17 12/22/17 amoxicillin 500 mg PO BID #20 cap 12/22/17 levofloxacin 500 mg PO Q48H #3 tab 01/02/18 cyclobenzaprine 10 mg PO TID PRN #20 tab 02/12/18 Previous Rx's Medication Instructions Recorded atorvastatin 40 mg PO DAILY #90 tab-cap 07/26/17 amoxicillin 500 mg PO BID #20 cap 12/22/17 levofloxacin 500 mg PO Q48H #3 tab 01/02/18 cyclobenzaprine 10 mg PO TID PRN #20 tab 02/12/18 Allergies Allergy/AdvReac Type Severity Reaction Status Date / Time cephalexin monohydrate Allergy Severe trouble Unverified 02/12/18 18:52 [From Keflex] breathing allopurinol AdvReac Intermediate gout Unverified 02/12/18 18:52 breakout erythromycin base AdvReac Intermediate gout Unverified 02/12/18 18:52 breakout General Stated Complaint: Trauma AWA: 2 Review of Systems Review of Systems All systems reviewed & are unremarkable except as noted in HPI and below Constitutional Denies chills, Denies fever(s) and Denies weakness Eyes Denies loss of vision ENT Denies change in voice Cardiovascular Denies chest pain and Denies dyspnea Respiratory Denies dyspnea Gastrointestinal Denies vomiting Genitourinary Denies dysuria Musculoskeletal Denies joint swelling Integumentary/Breasts Denies rash Neurologic Denies loss of vision and Denies weakness Allergic/Immunologic Denies urticaria PFSH Aortic stenosis (Chronic) COPD (chronic obstructive pulmonary disease) (Chronic) ESRD on dialysis (Chronic) Family History Mother Essential hypertension Personal history of malignant neoplasm Heart disease Pulmonary emphysema Father Personal history of malignant neoplasm Pulmonary emphysema Brother Hyperlipidemia Brother Hyperlipidemia Brother No problems noted. Medical History Aortic stenosis (Chronic) COPD (chronic obstructive pulmonary disease) (Chronic) ESRD on dialysis (Chronic) Social History Smoking/Tobacco Use Status: Former Tobacco Use Surgical History Abdominal hysterectomy (~2006) Repair of umbilical hernia TRANSPLANT, KIDNEY (~1997) Social History Smoking/Tobacco Use Status: Former Tobacco Use Exam Const General: no acute distress Orientation: alert HENMT Head: normal to inspection Ears: external ears normal General nose exam: external nose normal Mouth: moist mucous membranes Eyes General: appearance normal, both eyes and all related structures Neck Neck: normal visual inspection Resp Effort & Inspection: normal respiratory effort and able to speak in complete sentences Cardio Rate: regular rate Skin General skin exam: no rashes or lesions noted Neuro General: alert and oriented x3 Extrem General: normal to inspection Psych Mental Status: mental status grossly normal Course Vital Signs Temperature 37.2 C 02/12/18 18:53 Pulse 69 02/12/18 18:53 Respiratory Rate 18 02/12/18 18:53 Blood Pressure 180/98 H 02/12/18 18:53 Pulse Oximetry 96 02/12/18 18:53 Temperature 37.2 C 02/12/18 18:53 Temperature Source Temporal Artery Scan 02/12/18 18:53 Pulse 69 02/12/18 18:53 Respiratory Rate 18 02/12/18 18:53 Respiratory Effort 02/12/18 18:57 Respiratory Depth Normal 02/12/18 18:57 Blood Pressure 180/98 H 02/12/18 18:53 Pulse Oximetry 96 02/12/18 18:53 Oxygen Delivery Method Room Air 02/12/18 18:53 Oxygen Flow Rate 0 02/12/18 18:53 Pain Level 8 02/12/18 19:06
[2018-02-12 19:32] VITALS: PULSE 64; RESP 16; O2SAT 93
[2018-02-12 19:40] VITALS: PULSE 63; RESP 18; O2SAT 92
--- NOTE | 2018-02-12 19:44 | DI.VRAD_ITS ---
EXAM: CT Chest Without Contrast EXAM DATE/TIME: 02/12/2018 7:01 PM CLINICAL HISTORY: 52 years old, female; Injury or trauma; Fall; Patient HX: Pain S/P fall with back pain headache and neck pain. TECHNIQUE: Axial computed tomography images of the chest without intravenous contrast. Coronal and sagittal reformatted images were created and reviewed. COMPARISON: CTA chest 04/26/2016. FINDINGS: Limitations: Absence of IV contrast decreases soft tissue differentiation and sensitivity for detecting pathology. Thyroid: The thyroid gland is normal. Lungs: There is minor linear scarring or atelectasis in the left lung.There are dependent changes in the lung bases.There are no focal air space opacities. There is a stable 3 mm pleural-based nodule in the left lower lobe. Pleural space: Normal. No pneumothorax. No pleural effusion. Heart: The heart demonstrates moderate diffuse enlargement.There are coronary artery calcifications.The patient is status post aortic valve replacement. There is calcification of the mitral valve annulus.There is no evidence of pericardial fluid collections. Mediastinum: The trachea and main bronchi are patent. Aorta: The aorta is normal in caliber.The vasculature demonstrates diffuse moderate atherosclerotic calcification. Lymph nodes: Unremarkable. No enlarged lymph nodes. Bones/joints: There are sternal wires consistent with sternotomy incision.There is no evidence of acute fracture. No dislocation. Soft tissues: Unremarkable. IMPRESSION: 1. No evidence of acute fracture or dislocation. 2. No acute pulmonary parenchymal process, pleural effusion or pneumothorax. EXAM: CT Abdomen and Pelvis Without Intravenous Contrast EXAM DATE/TIME: 02/12/2018 7:01 PM CLINICAL HISTORY: 52 years old, female; Injury or trauma; Fall; Patient HX: Pain S/P fall TECHNIQUE: Axial computed tomography images of the abdomen and pelvis without intravenous contrast. Coronal and sagittal reformatted images were created and reviewed. COMPARISON: CT ABD PELVIS WO CONTRAST 03/21/2017 5:09 PM FINDINGS: Limitations: Absence of IV contrast decreases soft tissue differentiation and sensitivity for detecting pathology. Lower thorax: No acute findings. ABDOMEN: Liver: There is a finely nodular contour to the liver, suggestive of cirrhosis. Gallbladder and bile ducts: There is cholelithiasis with no evidence of acute cholecystitis. The gallbladder is not distended. Pancreas: Normal. No ductal dilation. Spleen: Normal. No splenomegaly. Adrenals: Normal. No mass. Kidneys and ureters: The kidneys are severely atrophic. Stomach and bowel: There is diverticulosis with no evidence of acute diverticulitis. Appendix: No evidence of appendicitis. PELVIS: Bladder: Unremarkable as visualized. Reproductive: Unremarkable as visualized. ABDOMEN and PELVIS: Intraperitoneal space: There is a small amount of nonspecific free intraperitoneal fluid present. This has decreased in comparison to the prior examination.There is no free intraperitoneal air. Bones/joints: There is no evidence of acute fracture. No dislocation. Soft tissues: There has been a left lower quadrant ventral hernia repair. There has been midline ventral hernia repair. Vasculature: The vasculature demonstrates diffuse marked atherosclerotic calcification. The aorta is ectatic.There is no evidence of an aortic aneurysm. Lymph nodes: Normal. No enlarged lymph nodes. IMPRESSION: 1. No evidence of acute fracture or dislocation. 2. There is no definite evidence of visceral trauma. Absence of IV contrast decreases sensitivity for detecting visceral injury. Clinical correlation and close clinical follow-up is recommended to exclude occult injury. 3. There is a finely nodular contour to the liver, suggestive of cirrhosis. 4. There is cholelithiasis with no evidence of acute cholecystitis. 5. There is diverticulosis with no evidence of acute diverticulitis. Remainder of non-emergent findings as described above. Dictated and Authenticated by: Arlene Asencio MD. Ordering:JAMES CORDOVA MD
[2018-02-12 19:46] VITALS: BP 140/88; PULSE 64; RESP 20; O2SAT 93
--- NOTE | 2018-02-12 19:46 | DI.VRAD_ITS ---
EXAM: CT Head Without Intravenous Contrast EXAM DATE/TIME: 02/12/2018 7:01 PM CLINICAL HISTORY: 52 years old, female; Injury or trauma; Fall; Initial encounter; Injury details: Pain S/P fall TECHNIQUE: Axial computed tomography images of the head/brain without intravenous contrast. Coronal and sagittal reformatted images were created and reviewed. COMPARISON: CT HEAD WITHOUT CONTRAST 07/29/2014 11:25 AM FINDINGS: Brain: No acute intracranial hemorrhage identified. No midline shift. There are vascular calcifications. Ventricles: Normal. No ventriculomegaly. Bones/joints: Normal. No acute fracture. Sinuses: Normal as visualized. No acute sinusitis. Mastoid air cells: Normal as visualized. No mastoid effusion. Soft tissues: Normal. IMPRESSION: 1. No acute intracranial hemorrhage identified. Other findings as above. If symptoms remain concerning, MRI would be beneficial. EXAM: CT Cervical Spine Without Intravenous Contrast EXAM DATE/TIME: 02/12/2018 7:01 PM CLINICAL HISTORY: 52 years old, female; Injury or trauma; Fall; Initial encounter; Injury details: Pain S/P fall TECHNIQUE: Axial computed tomography images of the cervical spine without intravenous contrast. Coronal and sagittal reformatted images were created and reviewed. COMPARISON: CT HEAD WITHOUT CONTRAST 07/29/2014 11:25 AM FINDINGS: Vertebrae: No loss of vertebral body height or listhesis. Skeletal degenerative changes are seen. Discs/Spinal canal/Neural foramina: There is disc space narrowing at C4-5 and C5-6. There is a disc bulge versus protrusion at C3-4. If the patient is symptomatic, MRI would be beneficial. Soft tissues: Gas is noted in the esophagus which can be seen with reflux. Possible paraesophageal surgical clips are seen on series 6 image 49. There are vascular calcifications.. Lungs: Lung apices are normal. IMPRESSION: 1. No loss in vertebral body height or listhesis seen. 2. Disc space narrowing at C4-5 and C5-6. Disc bulge versus protrusion at C3-4. If the patient is symptomatic, MRI would be beneficial. 3. Other findings as above. Dictated and Authenticated by: Hortencia Mobley MD. Ordering:JAMES CORDOVA MD
[2018-02-12 19:50] VITALS: PULSE 64; RESP 23; O2SAT 91
[2018-02-12] MEDS: Cyclobenzaprine 10 MG TAB PO ×2 (19:58)
== END 2018-02-12 20:08 | disposition home or self-care (01) ==
PROVIDERS: Emergency Provider Emergency Medicine; PCP Family Medicine
DX: R51 Headache (principal); S13.4XXA Sprain of ligaments of cervical spine, initial encounter; M54.6 Pain in thoracic spine; M54.5 Low back pain; J44.9 Chronic obstructive pulmonary disease, unspecified; Z87.891 Personal history of nicotine dependence; W01.0XXA Fall on same level from slipping, tripping and stumbling without subsequent striking against object, initial encounter
CPT/HCPCS: 71250; 99284; 70450; 72125; 74176; L0172

== ENCOUNTER 2018-05-17 13:44 | Emergency (ER) | payer MEDICARE, OTHER, SELFPAY ==
[2018-05-17] VITALS (37 sets, daily range): BP systolic 131–148; BP diastolic 71–98; PULSE 65–82; RESP 4–30; TEMP 37.4; O2SAT 87–98
--- NOTE | 2018-05-17 14:00 | DI.RAD_ITS ---
SYMPTOMS/DIAGNOSIS: SHORTNESS OF BREATH CHEST X-RAY, PA AND LATERAL: Comparison is 01/02/18. The heart appears enlarged but stable. There are again seen postsurgical changes of an aortic valve replacement. The lungs show no evidence of congestive heart failure or pneumonia. No effusions or pneumothoraces are identified. The bones appear intact. Sternal wires are in place. IMPRESSION: No acute pulmonary process.
[2018-05-17] MEDS: methylPREDNISolone SUCC 125 MG VIAL IVP (14:12)
[2018-05-17 14:19] LABS: Abs Immature Grans 0.02 k/cumm (0.0-0.09); Absolute Basophil Count 0.04 k/cumm (0.0-0.2); Absolute Eosinophil Count 0.18 k/cumm (0.0-0.7); Absolute Lymphocyte Count 0.62 k/cumm (1.2-3.4); Absolute Monocyte Count 0.58 k/cumm (0.11-0.7); Absolute Neutrophil Count 3.23 k/cumm (1.2-6.7); Basophils % 0.9; Eosinophils % 3.9; HCT 32.5 % (36.0-46.0); HGB 10.4 g/dL (12.0-15.5); Immature Grans % 0.4; Lymphocytes % 13.3; Mean Corpuscular Hemoglobin 31.1 pg (27.0-33.0); Mean Corpuscular Volume 97.3 fL (80-95); Mean Platelet Volume 11.3 fL (8.0-11.0); Monocytes % 12.4; Neutrophils % 69.1; Platelet Count 201 x1000/uL (130-400); RBC 3.34 m/cumm (4.00-5.20); RBC Distribution Width 14.9 % (11.7-14.6); White Blood Cell Count 4.67 k/cumm (4.4-10.8)
[2018-05-17] MEDS: Albuterol/Ipratropium 3 ML UPD VIAL UPD ×2 (14:20→14:48)
[2018-05-17 14:42] LABS: ALT 32 U/L (12-78); AST 44 U/L (15-37); Albumin 3.4 g/dL (3.4-5.0); Alkaline Phosphatase 563 U/L (46-116); Anion Gap 10.2 mmol/L (3-11); BUN 25 mg/dL (7-18); Bilirubin, Total 0.7 mg/dL (0.2-1.0); CO2 31.8 mmol/L (21.0-32.0); Calcium 8.1 mg/dL (8.5-10.1); Chloride 94 mmol/L (98-107); Estimated GFR 6.34 (mL/min/1.73m2); Glucose 111 mg/dL (70-100); Magnesium 1.7 mg/dL (1.8-2.4); Potassium 4.1 mmol/L (3.5-5.1); Sodium 136 mmol/L (136-145); Total Protein 7.8 g/dL (6.4-8.2); Troponin I 0.05 ng/mL (0.00-0.06)
[2018-05-17 14:49] LABS: CREATININE 6.79 mg/dL (0.55-1.02)
[2018-05-17 15:05] LABS: NT-proBNP > 35000 pg/mL
--- NOTE | 2018-05-17 15:16 | ED.GENADUL_ITS ---
Discharge Plan Disposition Patient Disposition: HOME Discharge Details Chief Complaint: RespSymp Clinical Impression: Asthma exacerbation in COPD, Acute bronchitis with chronic obstructive pulmonary disease (COPD) Primary Care Provider: Chano Neves ED Provider: Justice Cooper Home Meds and New Rx's Prescriptions: New ipratropium-albuterol 0.5 mg-3 mg(2.5 mg base)/3 mL solution for nebulization 3 ml IH Q6H Qty: 90 RF: 0 prednisone 20 mg tablet 60 mg PO DAILY Qty: 12 RF: 0 levofloxacin [Levaquin] 750 mg tablet 750 mg PO DAILY Qty: 4 RF: 0 Continued acetaminophen [Acetaminophen Extra Strength] 500 MG tablet 1,000 mg PO Q6H PRN RF: 0 amlodipine 10 MG tablet 10 mg PO DAILY RF: 0 aspirin 81 MG tablet,chewable 81 mg PO DAILY RF: 0 Velphoro 500 MG tablet,chewable 500 - 1,000 mg PO as directed RF: 0 omeprazole 20 MG capsule,delayed release(DR/EC) 40 mg PO BID RF: 0 ibuprofen 400 MG tablet 400 mg PO Q6H PRN RF: 0 albuterol sulfate [ProAir HFA] 8.5 GM HFA aerosol inhaler 2 puff Inhalation Q4H PRN RF: 0 PROVENTIL HFA 18 GM HFA.AER.AD 2 puff Inhalation BID RF: 0 Spiriva Respimat 4 GM mist 1 puff Inhalation BID RF: 0 atorvastatin 40 MG tablet 40 mg PO DAILY Qty: 90 RF: 3 fosinopril 20 MG tablet 20 mg PO BID 3 Days Qty: 180 RF: 3 ondansetron 4 MG tablet,disintegrating 4 mg PO Q8H PRNQty: 10 RF: 1 minoxidil 2.5 MG tablet 2.5 mg PO HS RF: 0 metoprolol tartrate 50 MG tablet 50 mg PO BID RF: 0 Discharge Instructions Instructions: Acute Bronchitis (ED), COPD (Chronic Obstructive Pulmonary Dis ease) (ED) Additional Instructions: Please use albuterol nebulizer as prescribed. Take prednisone and antibiotic (levaquin) as prescribed. You should undergo dialysis tomorrow as scheduled. Please contact your primary care physician to arrange follow-up. Return to the ER for any worsening or new concerning symptoms. Referrals: Chano Neves [Primary Care Provider] - Discharge Data Discharge Date/Time-TO BE ENTERED AT DEPARTURE: 05/17/18 17:57 Medical Decision Making 52-year-old female with multiple medical problems including history of end-stage renal disease on hemodialysis, prior CHF in the past, former smoker, COPD, here with shortness of breath and cough. Patient in mild respiratory distress on arrival in tripod positioning. Chest x-ray interpreted by radiology as negative. Patient was given 2 DuoNeb treatments and an additional albuterol neb treatment. She was given Solu-Medrol IV. Patient was seen by respiratory therapy. Her symptoms significantly improved with treatment. I suspect the patient has a COPD exacerbation with bronchitis. She did complete a course of azithromycin 1-2 weeks ago that did provide some improvement to her symptoms while she was taking it. Plan is to start Levaquin for broader coverage for bronchitis. Also will continue burst course of prednisone. Patient does have a history of aortic stenosis. She has a 3/6 murmur on exam. Patient was advised to follow-up with her primary care physician for potential outpatient echocardiogram. Pt was encouraged to have her dialysis tomorrow as scheduled. Disposition decision was made weighing the risks and benefits of hospitalization versus outpatient treatment, the risk for further decompensation, and the patient's wishes. The patient was stable and requested discharge. Prior to discharge, my usual and customary return precautions were reviewed with the patient - this included follow-up instructions and reason to return to the emergency department if condition worsens, does not improve as expected, or other new concerns arise. Imaging Data Radiologic Study: Imaging: X-Ray Radiologist's impression: CHEST X-RAY, PA AND LATERAL: Comparison is 01/02/18. The heart appears enlarged but stable. There are again seen postsurgical changes of an aortic valve replacement. The lungs show no evidence of congestive heart failure or pneumonia. No effusions or pneumothoraces are identified. The bones appear intact. Sternal wires are in place. IMPRESSION: No acute pulmonary process. ECG Data Attestation: I personally reviewed and interpreted this ECG (s) as follows: (Sinus rhythm 68 bpm, normal axis, right bundle branch block pattern, nondiagnostic) Prior ECG tracings: available for review (No significant changes today) HPI General Mode of arrival: ambulatory . Date/Time Provider Initiated Documentation: 05/17/18 14:00 . Limitations to Documentation: no limitations . Information obtained by: patient . HPI Narrative: 52-year-old female with multiple medical problems including history of COPD, end-stage renal disease on hemodialysis, CHF in the past, here with chief complaint of shortness of breath. Patient notes that she has had cough for the past 2 weeks. She was treated with azithromycin and completed course last week. She thinks that this antibiotic course did help her symptoms while she was on it but upon completion seem to have worsened. She notes that over the past 4 days she has had progressively worse shortness of breath. Shortness of breath is severe. Worse with exertion. She specifically notes that it feels like she has trouble getting air in. Patient denies associated chest pain. She has no associated leg swelling or edema. No calf tenderness. Patient seen by her primary care provider today and advised to come to the emergency department for further evaluation. Of note, patient has been undergoing dialysis as scheduled and last completed dialysis yesterday. She is due for dialysis again tomorrow. Related Data Home Medications Medication Instructions Recorded Confirmed Velphoro 500 - 1,000 mg PO as directed 05/24/16 05/17/18 tab.chew acetaminophen [Acetaminophen Extra 1,000 mg PO Q6H PRN tab-cap 05/24/16 05/17/18 Strength] amlodipine 10 mg PO DAILY tab-cap 05/24/16 05/17/18 aspirin 81 mg PO DAILY tab-cap 05/24/16 05/17/18 omeprazole 40 mg PO BID tab-cap 05/30/17 05/17/18 Proventil Hfa 2 puff INHALATION BID inhaler 07/26/17 05/17/18 Spiriva Respimat 1 puff INHALATION BID 07/26/17 05/17/18 albuterol sulfate [ProAir HFA] 2 puff INHALATION Q4H PRN inhaler 07/26/17 05/17/18 atorvastatin 40 mg PO DAILY #90 tab-cap 07/26/17 05/17/18 fosinopril 20 mg PO BID 3 Days #180 tab-cap 07/26/17 05/17/18 ibuprofen 400 mg PO Q6H PRN tab-cap 07/26/17 05/17/18 ondansetron 4 mg PO Q8H PRN #10 tabef 08/11/17 05/17/18 metoprolol tartrate 50 mg PO BID tab-cap 08/27/17 05/17/18 minoxidil 2.5 mg PO HS 08/27/17 05/17/18 ipratropium-albuterol 3 ml IH Q6H #90 ml 05/17/18 levofloxacin [Levaquin] 750 mg PO DAILY #4 tab 05/17/18 prednisone 60 mg PO DAILY #12 tab 05/17/18 Previous Rx's Medication Instructions Recorded atorvastatin 40 mg PO DAILY #90 tab-cap 07/26/17 ipratropium-albuterol 3 ml IH Q6H #90 ml 05/17/18 levofloxacin [Levaquin] 750 mg PO DAILY #4 tab 05/17/18 prednisone 60 mg PO DAILY #12 tab 05/17/18 Allergies Allergy/AdvReac Type Severity Reaction Status Date / Time cephalexin monohydrate Allergy Severe trouble Verified 05/17/18 13:04 [From Keflex] breathing allopurinol AdvReac Intermediate gout Verified 05/17/18 13:04 breakout erythromycin base AdvReac Intermediate gout Verified 05/17/18 13:04 breakout General Stated Complaint: RespSymp AWA: 2 Review of Systems Constitutional Denies fever(s) Cardiovascular Denies chest pain, Denies diaphoresis, Denies syncope and Reports dyspnea Respiratory Reports as per HPI, Reports cough and Reports dyspnea Neurologic Denies syncope PFSH Medical History Shoulder pain, right (Acute) Gallstones (Acute) Aortic stenosis (Chronic) COPD (chronic obstructive pulmonary disease) (Chronic) ESRD on dialysis (Chronic) Surgical History Abdominal hysterectomy (~2006) Repair of umbilical hernia TRANSPLANT, KIDNEY (~1997) Family History Mother Essential hypertension Personal history of malignant neoplasm Heart disease Pulmonary emphysema Father Personal history of malignant neoplasm Pulmonary emphysema Brother Hyperlipidemia Brother Hyperlipidemia Brother No problems noted. Social History Smoking and Tabacco status: Former Tobacco Use Exam Const General: cooperative and no acute distress HENMT Head: normocephalic and atraumatic Mouth: moist mucous membranes Eyes Conjunctivae: normal conjunctivae Sclera: normal sclerae EOM: EOM intact bilaterally Neck Neck: trachea midline, supple and no JVD Resp Effort & Inspection: labored, tripod positioning and other Auscultation: diminished lung sounds bilaterally, rales bilaterally at the base (Faint) and wheezes expiratory wheezes Cardio Jugular venous pressure: no JVD Rate: regular rate and not tachycardic Rhythm: regular rhythm GI Palpation: soft, not firm, no guarding, no masses, not rigid and nontender Skin General skin exam: no rashes or lesions noted Neuro General: alert, awake, oriented x3 and tone normal Extrem General: no calf tenderness and no edema Psych Appearance: grossly normal Mental Status: mental status grossly normal Speech and Movement: speech and movement normal Course Vital Signs Temperature 37.4 C 05/17/18 13:51 Pulse 69 05/17/18 13:51 Respiratory Rate 20 05/17/18 13:51 Blood Pressure 131/81 05/17/18 13:51 Pulse Oximetry 95 05/17/18 13:51 Temperature 37.4 C 05/17/18 13:51 Temperature Source Skin 05/17/18 13:51 Pulse 66 05/17/18 14:20 Respiratory Rate 23 05/17/18 14:20 Respiratory Effort Labored 05/17/18 14:13 Blood Pressure 131/81 05/17/18 13:51 Blood Pressure Position Sitting 05/17/18 13:51 Pulse Oximetry 98 05/17/18 14:20 Oxygen Delivery Method Room Air 05/17/18 14:20 Oxygen Flow Rate 0 05/17/18 14:20 Lab/Test Results Lab/Test Results: Laboratory Tests Range/Units 05/17/18 14:05 WBC (4.4-10.8) k/cumm 4.67 RBC (4.00-5.20) m/cumm 3.34 L Hgb (12.0-15.5) g/dL 10.4 L Hct (36.0-46.0) % 32.5 L MCV (80-95) fL 97.3 H MCH (27.0-33.0) pg 31.1 MCHC (32.0-36.0) g/dL 32.0 RDW (11.7-14.6) % 14.9 H Plt Count (130-400) x1000/uL 201 MPV (8.0-11.0) fL 11.3 H Immature Gran % 0.4 Neutrophils % 69.1 Lymphocytes % 13.3 Monocytes % 12.4 Eosinophils % 3.9 Basophils % 0.9 Absolute Neutrophils (1.2-6.7) k/cumm 3.23 Absolute Lymphocytes (1.2-3.4) k/cumm 0.62 L Absolute Monocytes (0.11-0.7) k/cumm 0.58 Absolute Eosinophils (0.0-0.7) k/cumm 0.18 Absolute Basophils (0.0-0.2) k/cumm 0.04
[2018-05-17] MEDS: LEVOFLOXACIN 750 MG/150 ML BAG 100 MG IVPB (15:21)
== END 2018-05-17 17:57 | disposition home or self-care (01) ==
PROVIDERS: Emergency Provider Student in an Organized Health Care Education/Training Program; PCP Family Medicine
DX: J44.1 Chronic obstructive pulmonary disease with (acute) exacerbation (principal); R01.1 Cardiac murmur, unspecified; Z87.891 Personal history of nicotine dependence
CPT/HCPCS: 36415; 80053; 94640; 96365; 96375; 99284; 71046; 83735; 83880; 84484; 85025; J1956; J2930; J7620

== ENCOUNTER 2018-09-17 07:04 | Emergency (ER) | payer MEDICARE, SELFPAY ==
[2018-09-17 07:05] VITALS: BP 188/81; PULSE 65; RESP 18; TEMP 36.7; O2SAT 95
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
[2018-09-17] MEDS: diazePAM 5 MG TAB PO (07:50)
[2018-09-17] MEDS: Ondansetron O.D.T. 4 MG TABEF (08:15)
[2018-09-17 08:36] VITALS: BP 143/87; PULSE 61; RESP 18; O2SAT 95
[2018-09-17 08:54] VITALS: BP 143/87; PULSE 61; RESP 18; O2SAT 95
== END 2018-09-17 08:57 | disposition home or self-care (01) ==
PROVIDERS: Emergency Provider Physician Assistant; PCP Family Medicine
DX: S16.1XXA Strain of muscle, fascia and tendon at neck level, initial encounter (principal); S39.012A Strain of muscle, fascia and tendon of lower back, initial encounter; V43.52XA Car driver injured in collision with other type car in traffic accident, initial encounter; I13.0 Hypertensive heart and chronic kidney disease with heart failure and stage 1 through stage 4 chronic kidney disease, or unspecified chronic kidney disease; I50.811 Acute right heart failure; J44.9 Chronic obstructive pulmonary disease, unspecified; N18.6 End stage renal disease; Z99.2 Dependence on renal dialysis; Z94.0 Kidney transplant status
CPT/HCPCS: 99284; 72110; 72125

== ENCOUNTER 2018-09-27 12:28 | Emergency (ER) | payer MEDICARE, SELFPAY ==
[2018-09-27] VITALS (19 sets, daily range): BP systolic 169–195; BP diastolic 93–109; PULSE 66–70; RESP 14–23; TEMP 36.7; O2SAT 90–98
--- NOTE | 2018-09-27 12:45 | W.ED.GENAD ---
Discharge Plan Disposition Patient Disposition: HOME Condition: Improving Discharge Details Chief Complaint: Nausea/Vomit/Diar Clinical Impression: Gastroenteritis Primary Care Provider: Chano Neves ED Provider: Kristie Mathews Home Meds and New Rx's Prescriptions: New ondansetron 4 mg tablet,disintegrating 4 mg PO Q8H PRN (Reason: nausea and vomiting) Qty: 10 RF: 0 Continued acetaminophen [Acetaminophen Extra Strength] 500 MG tablet 1,000 mg PO Q6H PRN RF: 0 amlodipine 10 MG tablet 10 mg PO DAILY RF: 0 aspirin 81 MG tablet,chewable 81 mg PO DAILY RF: 0 Velphoro 500 MG tablet,chewable 500 - 1,000 mg PO as directed RF: 0 omeprazole 20 MG capsule,delayed release(DR/EC) 40 mg PO BID RF: 0 ibuprofen 400 MG tablet 400 mg PO Q6H PRN RF: 0 albuterol sulfate [ProAir HFA] 8.5 GM HFA aerosol inhaler 2 puff Inhalation Q4H PRN RF: 0 PROVENTIL HFA 18 GM HFA.AER.AD 2 puff Inhalation BID RF: 0 Spiriva Respimat 4 GM mist 1 puff Inhalation BID RF: 0 atorvastatin 40 MG tablet 40 mg PO DAILY Qty: 90 RF: 3 fosinopril 20 MG tablet 20 mg PO BID 3 Days Qty: 180 RF: 3 ondansetron 4 MG tablet,disintegrating 4 mg PO Q8H PRNQty: 10 RF: 1 minoxidil 2.5 MG tablet 2.5 mg PO HS RF: 0 metoprolol tartrate 50 MG tablet 50 mg PO BID RF: 0 methocarbamol 750 mg tablet 750 mg PO TID PRN (Reason: muscle spasm) Qty: 10 RF: 0 ondansetron HCl [Zofran] 4 mg tablet 4 mg PO TID PRN (Reason: nausea and vomiting) Qty: 6 RF: 0 ipratropium-albuterol 0.5 mg-3 mg(2.5 mg base)/3 mL solution for nebulization 3 ml IH Q6H Qty: 90 RF: 0 Discharge Instructions Instructions: Gastroenteritis (ED) Additional Instructions: Please continue to hydrate as previously advised. You may use the Zofran as prescribed for recurrence of your nausea/vomiting. You have an appointment with Dr. Neves tomorrow afternoon at 2PM. If you develop fevers/chills, inability to stay hydrated, have increased abdominal pain or other new/worsening symptoms please seek care urgently once again. Please keep appointment for dialysis tomorrow. Referrals: Chano Neves [Primary Care Provider] - 09/28/18 2:00 pm Discharge Data Discharge Date/Time-TO BE ENTERED AT DEPARTURE: 09/27/18 14:53 Medical Decision Making Patient 53-year-old female, currently on dialysis for CKD, presenting today with chief complaint of nausea, vomiting and diarrhea x4 days. She reports that she is having some abdominal cramping. Denies any hematemesis, melena, hematochezia. Does not have any peritoneal findings on exam. Patient does have a palpable hard area superior to the umbilicus which she reports is new and tender on exam. She does not have any peritoneal findings. She does not not make urine. Undergoes dialysis Monday, Monday, Monday. Patient is afebrile. Denies fever at home. Is notably hypertensive at 195/96, reports that she has not taken her medications for her hypertension recently. Plan to give a small IV bolus, obtain CT scan and laboratory evaluation. In particular, I am curious about the hernia palpable area. Discussed this plan with the patient who is in agreement. We will give IV morphine for discomfort. Patient feeling improved after IV Zofran. She reports she is uses historically with good relief. Spoke spoke with radiologist regarding the patient's noncontrast abdominal CT. He notes mesh in good position with no evidence of acute hernia, this appears consistent with the area of hardness is likely chronic based on the findings at this time. They advised no acute abnormalities noted on the imaging. Labs significant for anemia with a hemoglobin of 9.7, this is not atypical for the patient. Her BUN is 37 with a creatinine of 5.62, again this is not atypical for the patient. Her alk phos is elevated at 236 which is typical for the patient. We examined the patient. She continues to feel much improved. No abdominal pain at this time. Her nausea has subsided. No diarrhea since being here. Has only had one episode of soft stools today. Advise at this point, I do not see any evidence of acute surgical pathology of the abdomen. With resolution of her symptoms, I advised that she continue with her hydration plan as previously outlined. Advise close follow-up with primary care, she will call them today to schedule follow-up appointment. I will prescribe Zofran to help with symptomatic management. She does have dialysis tomorrow. All of her questions and concerns were addressed and she is in agreement this plan. Patient is able to return with new or worsening symptoms. HPI General Mode of arrival: ambulatory. Date/Time Provider Initiated Documentation: 09/27/18 12:41. Limitations to Documentation: no limitations. Information obtained by: patient and RN notes reviewed. History of Present Illness 53 year old F presents to the emergency department with the chief complaint of nauea/vomiting/diarrhea , described as moderate, Quality is described as aching (having abdominal cramping), and is localized to the abdomen. Patient reports no radiation. Patient started experiencing this day(s) (4) and it has been constant. No relieving factors improve symptom(s), No exacerbating factors reported . Patient notes loss of appetite and nausea/vomiting; denies chest pain, cough, diaphoresis, fever/chills, headaches, malaise, rash, shortness of breath and weakness. Patient did receive the following treatments prior to arrival, none Related Data Home Medications Medication Instructions Recorded Confirmed Velphoro 500 - 1,000 mg PO as directed 05/24/16 09/28/18 tab.chew acetaminophen [Acetaminophen Extra 1,000 mg PO Q6H PRN tab-cap 05/24/16 09/28/18 Strength] amlodipine 10 mg PO DAILY tab-cap 05/24/16 09/28/18 aspirin 81 mg PO DAILY tab-cap 05/24/16 09/28/18 omeprazole 40 mg PO BID tab-cap 05/30/17 09/28/18 Proventil Hfa 2 puff INHALATION BID inhaler 07/26/17 09/28/18 Spiriva Respimat 1 puff INHALATION BID 07/26/17 09/28/18 albuterol sulfate [ProAir HFA] 2 puff INHALATION Q4H PRN inhaler 07/26/17 09/28/18 atorvastatin 40 mg PO DAILY #90 tab-cap 07/26/17 09/28/18 fosinopril 20 mg PO BID 3 Days #180 tab-cap 07/26/17 09/28/18 ibuprofen 400 mg PO Q6H PRN tab-cap 07/26/17 09/28/18 ondansetron 4 mg PO Q8H PRN #10 tabef 08/11/17 09/28/18 metoprolol tartrate 50 mg PO BID tab-cap 08/27/17 09/28/18 minoxidil 2.5 mg PO HS 08/27/17 09/28/18 ipratropium-albuterol 3 ml IH Q6H #90 ml 05/17/18 09/28/18 methocarbamol 750 mg PO TID PRN #10 tab 09/17/18 09/28/18 ondansetron HCl [Zofran] 4 mg PO TID PRN #6 tab 09/17/18 09/28/18 ondansetron 4 mg PO Q8H PRN #10 tab 09/27/18 09/28/18 Previous Rx's Medication Instructions Recorded atorvastatin 40 mg PO DAILY #90 tab-cap 07/26/17 ipratropium-albuterol 3 ml IH Q6H #90 ml 05/17/18 methocarbamol 750 mg PO TID PRN #10 tab 09/17/18 ondansetron HCl [Zofran] 4 mg PO TID PRN #6 tab 09/17/18 ondansetron 4 mg PO Q8H PRN #10 tab 09/27/18 Allergies Allergy/AdvReac Type Severity Reaction Status Date / Time cephalexin monohydrate Allergy Severe trouble Verified 09/28/18 14:15 [From Keflex] breathing allopurinol AdvReac Intermediate gout Verified 09/28/18 14:15 breakout erythromycin base AdvReac Intermediate gout Verified 09/28/18 14:15 breakout General Stated Complaint: Nausea/Vomit/Diar AWA: 3 Review of Systems Constitutional Reports as per HPI, Reports chills, Denies fatigue, Denies fever(s) and Denies headache(s) ENT Denies headache(s) Cardiovascular Reports as per HPI, Denies chest pain and Denies dyspnea Respiratory Reports as per HPI, Denies cough and Denies dyspnea Gastrointestinal Reports as per HPI, Reports change in bowel habits, Reports diarrhea, Reports nausea and Reports vomiting Genitourinary Reports other (patient on MWF dialysis, does not make urine) Musculoskeletal Reports as per HPI and Denies back pain Integumentary/Breasts Reports as per HPI and Denies rash Neurologic Reports as per HPI and Denies headache(s) Endocrine Denies fatigue FOR[facility]LY [facility] Medical History Aortic stenosis (Chronic) COPD (chronic obstructive pulmonary disease) (Chronic) ESRD on dialysis (Chronic) Gallstones (Acute) Shoulder pain, right (Acute) Surgical History Abdominal hysterectomy (~2006) Repair of umbilical hernia TRANSPLANT, KIDNEY (~1997) Social History Smoking/Tobacco Use Status: Former Tobacco Use Alcohol Intake: never Drug use: Occasionally Do you feel safe at home: Yes Do you feel safe in your relationship?: Yes Exam Const General: cooperative, healthy appearing, comfortable, no acute distress and well developed Nutritional Appearance: average body habitus and well nourished Orientation: alert and awake HENMT Head: normal to inspection Mouth: moist mucous membranes Resp Effort & Inspection: normal respiratory effort, able to speak in complete sentences and no respiratory distress Auscultation: clear to auscultation bilaterally, no rales, no rhonchi and no wheezes Cardio Rate: regular rate Rhythm: regular rhythm Heart Sounds: S1 normal and S2 normal GI Inspection: no edema, non-distended, incision (have healed well) and obesity Palpation: soft, no hepatosplenomegaly, not firm, no guarding, hernia (patient has a central area of firmness superior to umbilicus ) and tender Back/Spine/Pelvis Back: no CVA tenderness Skin General skin exam: no rashes or lesions noted Trauma: no lacerations or abrasions Neuro General: alert and awake Cognition: normal cognition Speech: speech normal Gait: normal gait Psych Appearance: grossly normal and well kempt Mental Status: mental status grossly normal Speech and Movement: speech and movement normal Course Vital Signs Temperature 36.7 C 09/27/18 12:38 Pulse 67 09/27/18 12:38 Respiratory Rate 19 09/27/18 12:38 Blood Pressure 195/96 H 09/27/18 12:38 Pulse Oximetry 98 09/27/18 12:38 Temperature 36.7 C 09/27/18 12:38 Temperature Source Skin 09/27/18 12:38 Pulse 67 09/27/18 12:38 Respiratory Rate 09/27/18 12:38 Respiratory Effort Non-Labored 09/27/18 12:38 Blood Pressure 195/96 H 09/27/18 12:38 Blood Pressure Position Supine 09/27/18 12:38 Pulse Oximetry 98 09/27/18 12:38 Oxygen Delivery Method Room Air 09/27/18 12:38 Oxygen Flow Rate 0 09/27/18 12:38 Pain Level 09/27/18 12:38
--- NOTE | 2018-09-27 13:01 | DI.CT_ITS ---
SYMPTOM/DIAGNOSIS: ABD PAIN, PALPABLE HARD AREA, ? HERNIA ABDOMEN AND PELVIC CT: A noncontrast enhanced examination was performed. No acute abnormality involving the lung bases is demonstrated. A cirrhotic liver is noted. There is evidence of cholelithiasis with nothing to suggest acute cholecystitis. The pancreas is intact. The spleen is enlarged. Severe atrophic changes involving the kidneys are noted. There is no evidence of bowel obstruction. Diverticulosis involving the colon is again identified. There is no evidence of diverticulitis. The patient is status post ventral hernia repair, unchanged. Again demonstrated in the fascial defect involving the left lower quadrant. The bladder is decompressed. There is no evidence of free air or free fluid in the intraperitoneal space. When compared with previous images, again noted are the edematous changes in the soft tissues. Again demonstrated is prominence of the infrarenal abdominal aorta. There is nothing to suggest a leak. SUMMARY: A cirrhotic liver is demonstrated. There is cholelithiasis and diverticulosis without evidence of diverticulitis. Post surgical changes are noted as described above.
[2018-09-27] MEDS: Ondansetron 4 MG/2 ML VIAL IVP (13:15)
[2018-09-27] MEDS: Normal Saline 1,000 ML 250 ML IV (13:15)
[2018-09-27 13:20] LABS: Abs Immature Grans 0.02 k/cumm (0.0-0.09); Absolute Basophil Count 0.05 k/cumm (0.0-0.2); Absolute Eosinophil Count 0.22 k/cumm (0.0-0.7); Absolute Lymphocyte Count 0.78 k/cumm (1.2-3.4); Absolute Monocyte Count 0.52 k/cumm (0.11-0.7); Absolute Neutrophil Count 2.56 k/cumm (1.2-6.7); Basophils % 1.2; Eosinophils % 5.3; HCT 30.7 % (36.0-46.0); HGB 9.7 g/dL (12.0-15.5); Immature Grans % 0.5; Lymphocytes % 18.8; Mean Corp. HGB Concentration 31.6 g/dL (32.0-36.0); Mean Corpuscular Volume 98.1 fL (80-95); Mean Platelet Volume 12.1 fL (8.0-11.0); Monocytes % 12.5; Neutrophils % 61.7; Platelet Count 120 x1000/uL (130-400); RBC 3.13 m/cumm (4.00-5.20); RBC Distribution Width 14.4 % (11.7-14.6); White Blood Cell Count 4.15 k/cumm (4.4-10.8)
[2018-09-27 13:54] LABS: ALT 33 U/L (12-78); AST 31 U/L (15-37); Albumin 3.7 g/dL (3.4-5.0); Alkaline Phosphatase 236 U/L (46-116); Anion Gap 11.3 mmol/L (3-11); BUN 37 mg/dL (7-18); Bilirubin, Total 0.6 mg/dL (0.2-1.0); CO2 29.7 mmol/L (21.0-32.0); Calcium 9.2 mg/dL (8.5-10.1); Chloride 100 mmol/L (98-107); Estimated GFR 7.85 (mL/min/1.73m2); Glucose 91 mg/dL (70-100); Magnesium 1.8 mg/dL (1.8-2.4); Potassium 4.9 mmol/L (3.5-5.1); Sodium 141 mmol/L (136-145); Total Protein 7.2 g/dL (6.4-8.2)
[2018-09-27 13:57] LABS: CREATININE 5.62 mg/dL (0.55-1.02); Troponin I < 0.05 ng/mL (0.00-0.06)
== END 2018-09-27 14:53 | disposition home or self-care (01) ==
PROVIDERS: Emergency Provider Physician Assistant; PCP Family Medicine
DX: K52.9 Noninfective gastroenteritis and colitis, unspecified (principal); N18.6 End stage renal disease; Z99.2 Dependence on renal dialysis; J44.9 Chronic obstructive pulmonary disease, unspecified; Z87.891 Personal history of nicotine dependence
CPT/HCPCS: 36415; 80053; 96361; 96374; 96375; 99284; 74176; 83735; 84484; 85025; J2405

== ENCOUNTER 2018-11-08 16:01 | Emergency (ER) | payer MEDICARE, SELFPAY ==
[2018-11-08 16:04] VITALS: PULSE 80; RESP 16; TEMP 36.6; O2SAT 98
--- NOTE | 2018-11-08 16:45 | ED.GENADUL_ITS ---
Discharge Plan Disposition Patient Disposition: HOME Condition: Improving Discharge Details Chief Complaint: Laceration Clinical Impression: Finger laceration Primary Care Provider: Chano Neves ED Provider: Benjy Espinoza Home Meds and New Rx's Prescriptions: No Action acetaminophen [Acetaminophen Extra Strength] 500 MG tablet 1,000 mg PO Q6H PRN RF: 0 amlodipine 10 MG tablet 10 mg PO DAILY RF: 0 aspirin 81 MG tablet,chewable 81 mg PO DAILY RF: 0 Velphoro 500 MG tablet,chewable 500 - 1,000 mg PO as directed RF: 0 omeprazole 20 MG capsule,delayed release(DR/EC) 40 mg PO BID RF: 0 ibuprofen 400 MG tablet 400 mg PO Q6H PRN RF: 0 albuterol sulfate [ProAir HFA] 8.5 GM HFA aerosol inhaler 2 puff Inhalation Q4H PRN RF: 0 PROVENTIL HFA 18 GM HFA.AER.AD 2 puff Inhalation BID RF: 0 Spiriva Respimat 4 GM mist 1 puff Inhalation BID RF: 0 atorvastatin 40 MG tablet 40 mg PO DAILY Qty: 90 RF: 3 fosinopril 20 MG tablet 20 mg PO BID 3 Days Qty: 180 RF: 3 ondansetron 4 MG tablet,disintegrating 4 mg PO Q8H PRNQty: 10 RF: 1 minoxidil 2.5 MG tablet 2.5 mg PO HS RF: 0 metoprolol tartrate 50 MG tablet 50 mg PO BID RF: 0 methocarbamol 750 mg tablet 750 mg PO TID PRN (Reason: muscle spasm) Qty: 10 RF: 0 ondansetron HCl [Zofran] 4 mg tablet 4 mg PO TID PRN (Reason: nausea and vomiting) Qty: 6 RF: 0 ipratropium-albuterol 0.5 mg-3 mg(2.5 mg base)/3 mL solution for nebulization 3 ml IH Q6H Qty: 90 RF: 0 ondansetron 4 mg tablet,disintegrating 4 mg PO Q8H PRN (Reason: nausea and vomiting) Qty: 10 RF: 0 Discharge Instructions Instructions: Finger Laceration (ED), Skin Adhesive Care (ED) Additional Instructions: Return to the emergency department for any signs of infection, swelling, redness, or any concerns. Otherwise keep wound clean and dry. Adhesive will fall off when ready. Please use finger splint to reduce tension on the wound for the next 3 days. Referrals: Chano Neves [Primary Care Provider] - (As needed for reassessment) Medical Decision Making Patient presenting the emergency department for chief complaint of finger laceration. This happened just prior to arrival. Patient has a 1 cm superficial finger laceration to the dorsal aspect of the right middle finger over the PIP. Patient has full range of motion and strength to digit with no tendon involvement noted. Two-point discrimination is intact along with cap refill. Patient given 1.5 cc of local injection of 1% lidocaine and finger tourniquet was applied. Wound was thoroughly scrubbed and irrigated with normal saline. Wound was visualized to base in bloodless field no evidence of foreign body. Wound is easy to approximate so given superficial nature I do not feel that sutures are required but skin glue is adequate. This was applied and tourniquet removed. Appropriate hemostasis was achieved. Patient tolerated procedure well with no complications noted. Patient given foam metal splint to keep finger extended to allow for reduction of tension on the wound over the next 3 days. Return precautions were discussed. Patient is up-to-date on tetanus. After discussion of diagnosis and plan of care patient has no further needs, questions, or concerns and states clear understanding to return to the emergency department for any worsening symptoms. HPI General Mode of arrival: ambulatory . Date/Time Provider Initiated Documentation: 11/08/18 16:08 . Limitations to Documentation: no limitations . Information obtained by: patient and RN notes reviewed . History of Present Illness 53 year old F presents to the emergency department with the chief complaint of Right middle finger laceration, described as moderate, Quality is described as other (Denies pain or discomfort), and is localized to the right and upper extremity. Patient started experiencing this hour(s) (1) and it has been constant. Patient notes no other symptoms.. Patient did receive the following treatments prior to arrival, none Related Data Home Medications Medication Instructions Recorded Confirmed Velphoro 500 - 1,000 mg PO as directed 05/24/16 09/28/18 tab.chew acetaminophen [Acetaminophen Extra 1,000 mg PO Q6H PRN tab-cap 05/24/16 09/28/18 Strength] amlodipine 10 mg PO DAILY tab-cap 05/24/16 09/28/18 aspirin 81 mg PO DAILY tab-cap 05/24/16 09/28/18 omeprazole 40 mg PO BID tab-cap 05/30/17 09/28/18 Proventil Hfa 2 puff INHALATION BID inhaler 07/26/17 09/28/18 Spiriva Respimat 1 puff INHALATION BID 07/26/17 09/28/18 albuterol sulfate [ProAir HFA] 2 puff INHALATION Q4H PRN inhaler 07/26/17 09/28/18 atorvastatin 40 mg PO DAILY #90 tab-cap 07/26/17 09/28/18 fosinopril 20 mg PO BID 3 Days #180 tab-cap 07/26/17 09/28/18 ibuprofen 400 mg PO Q6H PRN tab-cap 07/26/17 09/28/18 ondansetron 4 mg PO Q8H PRN #10 tabef 08/11/17 09/28/18 metoprolol tartrate 50 mg PO BID tab-cap 08/27/17 09/28/18 minoxidil 2.5 mg PO HS 08/27/17 09/28/18 ipratropium-albuterol 3 ml IH Q6H #90 ml 05/17/18 09/28/18 methocarbamol 750 mg PO TID PRN #10 tab 09/17/18 09/28/18 ondansetron HCl [Zofran] 4 mg PO TID PRN #6 tab 09/17/18 09/28/18 ondansetron 4 mg PO Q8H PRN #10 tab 09/27/18 09/28/18 Previous Rx's Medication Instructions Recorded atorvastatin 40 mg PO DAILY #90 tab-cap 07/26/17 ipratropium-albuterol 3 ml IH Q6H #90 ml 05/17/18 methocarbamol 750 mg PO TID PRN #10 tab 09/17/18 ondansetron HCl [Zofran] 4 mg PO TID PRN #6 tab 09/17/18 ondansetron 4 mg PO Q8H PRN #10 tab 09/27/18 Allergies Allergy/AdvReac Type Severity Reaction Status Date / Time cephalexin monohydrate Allergy Severe trouble Verified 11/08/18 16:08 [From Keflex] breathing allopurinol AdvReac Intermediate gout Verified 11/08/18 16:08 breakout erythromycin base AdvReac Intermediate gout Verified 11/08/18 16:08 breakout General Stated Complaint: Laceration AWA: 4 Review of Systems Musculoskeletal Denies deformity, Denies limited range of motion and Denies numbness Integumentary/Breasts Reports as per HPI Neurologic Denies numbness and Denies paresthesias PFSH Social History Smoking/Tobacco Use Status: Former Tobacco Use Alcohol Intake: never Drug use: Occasionally Substance use type: marijuana Do you feel safe at home: Yes Do you feel safe in your relationship?: Yes Exam Const General: cooperative and no acute distress Orientation: alert, awake and oriented x3 Limitations: mental status not altered Resp Effort & Inspection: normal respiratory effort and able to speak in complete sentences Cardio Rate: regular rate Rhythm: regular rhythm Skin Trauma: laceration right dorsal 3rd finger linear, actively bleeding, superficial, motor nerve function intact and sensation intact; no foreign bodies present and not contaminated Neuro General: alert, awake, oriented x3 and no focal motor deficits Motor: no movement abnormalities noted Sensory Exam: no sensory deficits noted Extrem General: normal exam except as noted Course Vital Signs Temperature 36.6 C 11/08/18 16:04 Pulse 80 11/08/18 16:04 Respiratory Rate 16 11/08/18 16:04 Pulse Oximetry 98 11/08/18 16:04 Temperature 36.6 C 11/08/18 16:04 Temperature Source Skin 11/08/18 16:04 Pulse 80 11/08/18 16:04 Respiratory Rate 16 11/08/18 16:04 Respiratory Effort Non-Labored 11/08/18 16:07 Pulse Oximetry 98 11/08/18 16:04 Pain Level 0 11/08/18 16:13 Comment 11/08/18 16:04
[2018-11-08 16:54] VITALS: PULSE 80; RESP 16; TEMP 36.6; O2SAT 98
== END 2018-11-08 17:00 | disposition home or self-care (01) ==
PROVIDERS: Emergency Provider Nurse Practitioner Family; PCP Family Medicine
DX: S61.212A Laceration without foreign body of right middle finger without damage to nail, initial encounter (principal); W45.8XXA Other foreign body or object entering through skin, initial encounter; J44.9 Chronic obstructive pulmonary disease, unspecified; I10 Essential (primary) hypertension; F17.210 Nicotine dependence, cigarettes, uncomplicated
CPT/HCPCS: 12001

== ENCOUNTER 2019-01-26 14:19 | Observation (INO) | payer OTHER, MEDICARE, SELFPAY ==
[2019-01-26] VITALS (56 sets, daily range): BP systolic 145–223; BP diastolic 72–166; PULSE 66–89; RESP 1–31; TEMP 36.8–37.4; O2SAT 90–100
--- NOTE | 2019-01-26 14:22 | ED.GENADUL_ITS ---
Discharge Plan Disposition Patient Disposition: [facility] INPATIENT Condition: Stable Discharge Details Chief Complaint: RespSymp Clinical Impression: COPD with acute exacerbation, ESRD (end stage renal disease) on dialysis, Hypoxia Admit Date/Time: 01/26/19 18:40 Admit Provider: Tony Mcallister Attending Provider: Tony Mcallister Primary Care Provider: Chano Neves. ED Provider: Gladis Haji Medical Decision Making 1420 -- 53-year-old female with a history of COPD, former alcohol abuse, end- stage renal disease on dialysis presents with shortness of breath since 3 AM this morning. She did require oxygen at dialysis yesterday due to shortness of breath. Appears in moderate respiratory distress on arrival. Speaking in 2-3 word sentences. Wheezing and rhonchi throughout with diminished breath sounds. O2 sat 94% on room air. EKG on arrival notes a rate of 70, sinus with right bundle branch block and no acute change from previous EKG. Differential diagnosis includes COPD exacerbation, acute bronchitis, pneumonia, AK, arrhythmia, electrolyte abnormality. Will place an IV, check screening labs, chest x-ray and give a DuoNeb and Solu- Medrol and reassess. 1500 --patient states she feels 100% better. Significantly improved breath sounds. No wheezing or rhonchi noted. O2 sat 97% on room air. Patient still appears to be talking in 3-[address] on 2 L nasal cannula for some time and then reassess. Labs reviewed. White blood cell count mildly decreased to 3.62 from 4.15 in September. Hemoglobin 10 which is close to her baseline. Creatinine 6.47 which is close to her baseline. Troponin negative. CXR notes cardiomegaly and ILD but no effusion or pneumonia. 1535 --patient feels better on O2 and oxygen saturation 100%, 98% on room air, however patient still seems to be working to breathe. Will give another neb treatment and check ABG. 1605 --patient feels much better. Oxygen saturation 96% on room air. Appears much more comfortable and no longer labored breathing. She states that she smokes marijuana frequently for anxiety. Discussed that this may not be the best option for her with her COPD. She states she does get anxious with her shortness of breath as well. We will give a dose of Ativan and attempt ABG. 1640 --O2 sat 89 to 90% on room air. Increased to 96 on 2 L. This is likely an effect of Ativan. ABG done after Ativan given and notes a PO2 of 54 and O2 sat 89%. Normal CO2 at 27 with a normal pH 7.45. Patient states her baseline O2 is low 90s. 1720 --O2 sat 92% on room air. Patient does appear to have some labored breathing. She states she would feel better with admission overnight for oxygen and neb treatment. Patient is a dialysis patient, however her main process appears due to COPD exacerbation. No signs of fluid overload. There could be consideration to keep here overnight for O2 and neb treatments. Case discussed with Dr. Mcallister who would prefer transfer to tertiary facility if available. If not available, can consider admission here overnight. Discussed with [facility] center and no beds available. Discussed with [facility] [[email or web address]] hospitalist -no beds available tonight but can be accepted in the morning/early afternoon tomorrow if needing transfer for dialysis. Accepting physician would be Dr. Mariposa Phipps in the am. 1834 -- d/w Dr. Mcallister --accepts patient for admission. Medical Records Medical records reviewed: Yes I reviewed the patient's medical records. Imaging Data Radiologic Study: Radiologist's impression: XR Chest, 1 View Exam date and time: 01/26/2019 2:54 PM Clinical history: 53 years old, female; Other: Cough, SOB, R/O pneumonia TECHNIQUE: Imaging protocol: XR of the chest Views: 1 view. COMPARISON: CR XR CHEST 2V PA LATERAL 05/17/2018 2:34 PM FINDINGS: Prior median sternotomy unchanged. Moderate cardiomegaly unchanged. Interstitial lung disease most representing interstitial scarring. Mild hyperaeration. No definite focal consolidation. IMPRESSION: Cardiomegaly and mild chronic lung disease unchanged from prior exam. Lab Data Lab results reviewed: Yes I reviewed the patient's lab results. Labs: Laboratory Tests Range/Units 01/26/19 01/26/19 01/26/19 14:31 14:31 16:30 WBC (4.4-10.8) k/cumm 3.62 L RBC (4.00-5.20) m/cumm 3.57 L Hgb (12.0-15.5) g/dL 10.9 L Hct (36.0-46.0) % 34.2 L MCV (80-95) fL 95.8 H MCH (27.0-33.0) pg 30.5 MCHC (32.0-36.0) g/dL 31.9 L RDW (11.7-14.6) % 14.1 Plt Count (130-400) x1000/uL 116 L MPV (8.0-11.0) fL 13.1 H Immature Gran % 0.8 Neutrophils % 57.3 Lymphocytes % 16.0 Monocytes % 19.6 Eosinophils % 5.2 Basophils % 1.1 Absolute Neutrophils (1.2-6.7) k/cumm 2.07 Absolute Lymphocytes (1.2-3.4) k/cumm 0.58 L Absolute Monocytes (0.11-0.7) k/cumm 0.71 H Absolute Eosinophils (0.0-0.7) k/cumm 0.19 Absolute Basophils (0.0-0.2) k/cumm 0.04 Sample Site Right radial pCO2 (34-47) mmHg 42 pO2 (83-108) mmHg 54 L O2 Saturation (94-98) % 89 L ABG pH (7.35-7.45) 7.45 ABG HCO3 (22-28) mmol/L 29 H ABG Total CO2 (22-29) mmol/L 27 ABG Base Excess (-3-3) mmol/L 5.0 H Oxygen Liter Flow L R/a Sodium (136-145) mmol/L 137 Potassium (3.5-5.1) mmol/L 4.1 Chloride (98-107) mmol/L 97 L Carbon Dioxide (21.0-32.0) mmol/L 29.1 Anion Gap (3-11) mmol/L 10.9 BUN (7-18) mg/dL 29 H Creatinine (0.55-1.02) mg/dL 6.47 H* Estimated GFR/1.73 m2 (mL/min/1.73m2) 6.67 Glucose (70-100) mg/dL 112 H Calcium (8.5-10.1) mg/dL 8.6 Magnesium (1.8-2.4) mg/dL 1.7 L Total Bilirubin (0.2-1.0) mg/dL 0.8 AST (15-37) U/L 26 ALT (14-59) U/L 22 Alkaline Phosphatase (46-116) U/L 203 H Troponin I (0.00-0.06) ng/mL < 0.05 Total Protein (6.4-8.2) g/dL 8.0 Albumin (3.4-5.0) g/dL 4.2 ECG Data Attestation: I personally reviewed and interpreted this ECG (s) as follows: Interpretation: Rate of 70, sinus, right bundle branch block. No acute change from previous EKG. No acute ST elevation. VT 160. QTc 483. HPI General Mode of arrival: ambulatory . Date/Time Provider Initiated Documentation: 01/26/19 14:20 . Limitations to Documentation: no limitations . Information obtained by: patient . HPI Narrative: Pt is a 53yo F with a history of COPD, former tobacco smoker who was still exposed to smoke from a wood stove and a roommate who smokes, end-stage renal disease on dialysis, hypertension, depression who presents for shortness of breath since 3 AM. She also admits to cough that is mainly dry but occasionally productive of clear and white sputum. She denies any known fever. She denies any chest pain is complaining of intermittent pain to her right shoulder. She admits to chest congestion. She states her last dialysis session was yesterday and she did require oxygen for 2 hours during that. Due to shortness of breath. She denies any recent antibiotics or recent hospital admission. Related Data Home Medications Medication Instructions Recorded Confirmed Velphoro 1,000 mg PO AC tab.chew 05/24/16 01/26/19 acetaminophen [Acetaminophen Extra 1,000 mg PO Q6H PRN tab-cap 05/24/16 01/26/19 Strength] amlodipine 10 mg PO DAILY tab-cap 05/24/16 01/26/19 aspirin 81 mg PO DAILY tab-cap 05/24/16 01/26/19 omeprazole 40 mg PO BID tab-cap 05/30/17 01/26/19 Proventil Hfa 2 puff INHALATION BID inhaler 07/26/17 01/26/19 Spiriva Respimat 1 puff INHALATION BID 07/26/17 01/26/19 albuterol sulfate [ProAir HFA] 2 puff INHALATION Q4H PRN inhaler 05/16/18 11/16/19 atorvastatin 40 mg PO DAILY #90 tab-cap 07/26/17 01/26/19 fosinopril 20 mg PO BID 3 Days #180 tab-cap 07/26/17 01/26/19 ibuprofen 600 mg PO Q6H PRN tab-cap 07/26/17 01/26/19 ondansetron 4 mg PO Q8H PRN #10 tabef 08/11/17 01/26/19 metoprolol tartrate 50 mg PO BID tab-cap 08/27/17 01/26/19 minoxidil 2.5 mg PO HS 08/27/17 01/26/19 ipratropium-albuterol 3 ml IH Q6H #90 ml 05/17/18 01/26/19 methocarbamol 750 mg PO TID PRN #10 tab 09/17/18 01/26/19 inhalational spacing device 01/26/19 01/26/19 [Aerochamber MV] sucroferric oxyhydroxide [Velphoro] 500 mg PO PRN PRN 01/26/19 01/26/19 Previous Rx's Medication Instructions Recorded atorvastatin 40 mg PO DAILY #90 tab-cap 07/26/17 ipratropium-albuterol 3 ml IH Q6H #90 ml 05/17/18 methocarbamol 750 mg PO TID PRN #10 tab 09/17/18 Allergies Allergy/AdvReac Type Severity Reaction Status Date / Time cephalexin monohydrate Allergy Severe trouble Verified 01/26/19 16:12 [From Keflex] breathing allopurinol AdvReac Intermediate gout Verified 01/26/19 16:12 breakout erythromycin base AdvReac Intermediate gout Verified 01/26/19 16:12 breakout General AWA: 4 Review of Systems All systems reviewed & are unremarkable except as noted in HPI and below Constitutional Constitutional: Reports as per HPI, Denies chills and Denies fever(s) Eyes Eyes: Denies blurry vision ENT Ears, Nose, Mouth, and Throat: Denies dizziness, Denies sore throat and Denies throat swelling Cardiovascular Cardiovascular: Denies chest pain and Denies dyspnea Respiratory Respiratory: Denies cough and Denies dyspnea Gastrointestinal Gastrointestinal: Denies abdominal pain, Denies diarrhea and Denies vomiting Genitourinary Genitourinary: Denies hematuria and Denies dysuria Musculoskeletal Musculoskeletal: Denies back pain and Denies numbness Integumentary/Breasts Skin/Breast: Denies lesions and Denies rash Neurologic Neurologic: Denies dizziness, Denies focal weakness and Denies numbness Allergic/Immunologic Allergic/Immunologic: Denies throat swelling [facility] Medical History Aortic stenosis (Chronic) COPD (chronic obstructive pulmonary disease) (Chronic) ESRD on dialysis (Chronic) Gallstones (Acute) Shoulder pain, right (Acute) continue with tylenol as needed/warmth call if not getting better Surgical History Abdominal hysterectomy (~2006) s/p hyst, but cervix still present and needs yearly PAP due to transplant Repair of umbilical hernia 1995,1997,2001,2003 TRANSPLANT, KIDNEY (~1997) LEFT Family History Mother Essential hypertension Personal history of malignant neoplasm KIDNEY Heart disease Pulmonary emphysema Father Personal history of malignant neoplasm Pulmonary emphysema Brother Hyperlipidemia Brother Hyperlipidemia Brother No problems noted. Social History Smoking/Tobacco Use Status: Current-Occasional Tobacco Type: cigarettes Alcohol Intake: former Drug use: Daily Substance use type: marijuana Details: pt states she has not drank etoh in 6 months Do you feel safe at home: Yes Do you feel safe in your relationship?: Yes Exam Const General: cooperative and ill appearing chronically HENMT Head: normal to inspection Face and sinus: normal facial exam Eyes General: appearance normal, both eyes and all related structures Pupils: PERRL EOM: EOM intact bilaterally Neck Neck: normal visual inspection and No submandibular swelling Lymphatic: no lymphadenopathy noted Chest Chest: normal inspection of the chest and no tenderness Resp Effort & Inspection: normal respiratory effort and not able to speak in complete sentences Auscultation: diminished lung sounds bilaterally throughout and wheezes expiratory wheezes and inspiratory wheezes Cardio Rate: regular rate Rhythm: regular rhythm Heart Sounds: murmur systolic III/ GI Inspection: normal to inspection Palpation: soft, not firm, not rigid and nontender Auscultation: normal bowel sounds Back/Spine/Pelvis Back: no CVA tenderness Skin General skin exam: no rashes or lesions noted Neuro General: alert, awake and oriented x3 Cognition: normal cognition Speech: speech normal Motor: muscle tone normal throughout Sensory Exam: no sensory deficits noted Extrem General: normal to inspection, full ROM, normal capillary refill, no calf tenderness bilaterally and no edema Psych Appearance: grossly normal Mental Status: mental status grossly normal Speech and Movement: speech and movement normal Affect: normal affect
--- NOTE | 2019-01-26 14:31 | DI.RAD_ITS ---
EXAM: XR PORTABLE CHEST AP INDICATION: cough, sob, r/o pneumonia. COMPARISON: No exams were available for comparison TECHNIQUE: 2D digital imaging was performed. FINDINGS: The heart is again noted to be enlarged. An aortic valve prosthesis and sternal wires are seen. Ther e is minimal blunting at both costophrenic angles which could represent tiny effusions or scarring. The lungs appear clear. No overt pulmonary edema or focal consolidation is seen. IMPRESSION: Cardiomegaly. No acute abnormality.
[2019-01-26] MEDS: Albuterol/Ipratropium 3 ML UPD VIAL (14:36)
[2019-01-26] MEDS: Albuterol 2.5 MG/3 ML INH SOLN VIAL 7.5 MG UPD (14:37)
[2019-01-26] MEDS: methylPREDNISolone SUCC 125 MG VIAL IVP (14:38)
[2019-01-26 14:41] LABS: Abs Immature Grans 0.03 k/cumm (0.0-0.09); Absolute Basophil Count 0.04 k/cumm (0.0-0.2); Absolute Eosinophil Count 0.19 k/cumm (0.0-0.7); Absolute Lymphocyte Count 0.58 k/cumm (1.2-3.4); Absolute Monocyte Count 0.71 k/cumm (0.11-0.7); Absolute Neutrophil Count 2.07 k/cumm (1.2-6.7); Basophils % 1.1; Eosinophils % 5.2; HCT 34.2 % (36.0-46.0); HGB 10.9 g/dL (12.0-15.5); Immature Grans % 0.8; Mean Corp. HGB Concentration 31.9 g/dL (32.0-36.0); Mean Corpuscular Hemoglobin 30.5 pg (27.0-33.0); Mean Corpuscular Volume 95.8 fL (80-95); Mean Platelet Volume 13.1 fL (8.0-11.0); Monocytes % 19.6; Neutrophils % 57.3; Platelet Count 116 x1000/uL (130-400); RBC 3.57 m/cumm (4.00-5.20); RBC Distribution Width 14.1 % (11.7-14.6); White Blood Cell Count 3.62 k/cumm (4.4-10.8)
[2019-01-26 14:58] LABS: ALT 22 U/L (14-59); AST 26 U/L (15-37); Albumin 4.2 g/dL (3.4-5.0); Alkaline Phosphatase 203 U/L (46-116); Anion Gap 10.9 mmol/L (3-11); BUN 29 mg/dL (7-18); Bilirubin, Total 0.8 mg/dL (0.2-1.0); CO2 29.1 mmol/L (21.0-32.0); Calcium 8.6 mg/dL (8.5-10.1); Chloride 97 mmol/L (98-107); Estimated GFR 6.67 (mL/min/1.73m2); Glucose 112 mg/dL (70-100); Magnesium 1.7 mg/dL (1.8-2.4); Potassium 4.1 mmol/L (3.5-5.1); Sodium 137 mmol/L (136-145)
[2019-01-26 15:03] LABS: CREATININE 6.47 mg/dL (0.55-1.02); Troponin I < 0.05 ng/mL (0.00-0.06)
--- NOTE | 2019-01-26 15:28 | DI.VRAD_ITS ---
PROCEDURE INFORMATION: Exam: XR Chest, 1 View Exam date and time: 01/26/2019 2:54 PM Clinical history: 53 years old, female; Other: Cough, SOB, R/O pneumonia TECHNIQUE: Imaging protocol: XR of the chest Views: 1 view. COMPARISON: CR XR CHEST 2V PA LATERAL 05/17/2018 2:34 PM FINDINGS: Prior median sternotomy unchanged. Moderate cardiomegaly unchanged. Interstitial lung disease most representing interstitial scarring. Mild hyperaeration. No definite focal consolidation. IMPRESSION: Cardiomegaly and mild chronic lung disease unchanged from prior exam. Dictated and Authenticated by: Milton Cunha MD. Ordering:RADHA Griffith MD
[2019-01-26] MEDS: LORazepam 2 MG/ML VIAL 0.5 MG IVP (16:24)
[2019-01-26 16:39] LABS: HCO3 29 mmol/L (22-28); pCO2 42 mmHg (34-47); pH 7.45 (7.35-7.45); pO2 54 mmHg (83-108); sO2 89 % (94-98); tCO2 27 mmol/L (22-29)
[2019-01-26 16:42] LABS: FIO2L R/A L; Site Right Radial
[2019-01-26] MEDS: Lidocaine 5% Patch 1 PATCH TP (18:15)
[2019-01-26] MEDS: Methocarbamol 500 MG TAB PO (18:15)
--- NOTE | 2019-01-26 18:51 | W.PM.HP.N ---
Date of service: 01/26/19 Time of Service: 18:52 Assessment and Plan Assessment and plan (1) Hypoxemia: Start date: 01/25/19 Status: Acute Assessment and plan: This is a 53-year-old intermittent smoker who has severe COPD and is fairly compliant with her inhalers when reviewed at admission. She does go [facility] and needs to have help with her medications through that system. She was admitted because of hypoxemia the day prior to admission while she was receiving hemodialysis and she worsened the day of admission. She was observed hoping that with increased nebulizer treatments, removal from her would he and IV steroids may help her to improve enough to go home tomorrow. If she is not improving she may need to be transferred to [facility] to Dr. [place] service and nephrology for possible hemodialysis there Monday if she requires inpatient care. She is hopeful to go home in the morning. She may need to apply for oxygen supplement at home long-term. She certainly was encouraged to stop smoking anything and she should work on humidification and adequate ventilation in her house with wood heat. She may have caught a viral URI with recent tenant though she has had no fever measured at home or in the hospital. She did have some slight chills prior to admission. Imaging revealed no pneumonia and she has had no other symptoms to suggest infection requiring antibiotic therapy. If she does well she could go home on oral steroids. (2) COPD (chronic obstructive pulmonary disease): Status: Acute Assessment and plan: This is an acute exacerbation of her chronic end-stage problem with poor compliance with inhalers and intermittent smoking. Patient will be treated with aggressive nebulizer treatments and IV Solu-Medrol which can be converted to steroids by mouth such as prednisone if she is doing well in the morning. She probably could be discharged in the morning but home O2 may need to be arranged. Qualifiers: COPD type: COPD with acute exacerbation Qualified Code(s): J44.1 - Chronic obstructive pulmonary disease with (acute) exacerbation (3) End stage renal disease: Status: Chronic Assessment and plan: Stable on hemodialysis 3 days a week with patient failed renal transplant which was placed which was very for severe reflux which resulted in her renal failure. She did have chronic hep C at one point after transplant but this had cleared. (4) Essential hypertension: Status: Chronic Assessment and plan: Continue multiple antihypertensives while in the hospital with this problem not presently active though not well controlled. She may be noncompliant with medical therapy as she is with her inhalers. [facility] (5) Cannabis dependence: Status: Chronic Assessment and plan: Patient was advised to smoke nothing including her cigarettes which he adamantly smokes presently. She will work on this with her primary care provider as an outpatient. History of Present Illness History of Present Illness Chief Complaint: Difficulty breathing with decreased oxygen saturation Narrative: This is a 53-year-old lady who is a former smoker quitting daily use 6 months ago but she still occasionally smoke cigarettes and does smoke marijuana more frequent. She has a history of COPD with exacerbations in the past, presently with exacerbation of her breathing status requiring oxygen during hemodialysis yesterday. She had been having problems with increased dyspnea since early this morning and presented to the ED for evaluation. She does heat with wood and a new border in her house may have had a cold recently with patient having some chills but no fever prior to evaluation in the ED. She was hypoxemic but not retaining CO2 and did not appear to be have an acute bacterial infection. She has end-stage renal disease on hemodialysis having failed renal transplant which was done when she was younger status post renal failure secondary to severe reflux of both kidneys when she was a child. She was dialyzed last the day prior to admission. Dr. Phipps, optomechanical engineer at [facility] was called and will accept the patient tomorrow if she needs continued hospitalization with inpatient hemodialysis on Monday. The patient was comfortable with this plan if needed but she does prefer [facility] where she has received her previous care with nephrology. She did have improvement during her treatment at the ED with frequent nebulizers and a dose of Solu-Medrol which will be continued. She may want to arrange for home O2 long-term if this is an ongoing problem. Review of Systems Narrative: 13 point review of systems otherwise unrevealing or stable. [facility] Medical History Aortic stenosis (Chronic) COPD (chronic obstructive pulmonary disease) (Chronic) ESRD on dialysis (Chronic) Gallstones (Acute) Shoulder pain, right (Acute) continue with tylenol as needed/warmth call if not getting better Surgical History Abdominal hysterectomy (~2006) s/p hyst, but cervix still present and needs yearly PAP due to transplant Repair of umbilical hernia 1995,1997,2001,2003 TRANSPLANT, KIDNEY (~1997) LEFT Family History Mother Essential hypertension Personal history of malignant neoplasm KIDNEY Heart disease Pulmonary emphysema Father Personal history of malignant neoplasm Pulmonary emphysema Brother Hyperlipidemia Brother Hyperlipidemia Brother No problems noted. Social History Smoking/Tobacco Use Status: Current-Occasional Tobacco Type: cigarettes Alcohol Intake: former Drug use: Daily Substance use type: marijuana Details: pt states she has not drank etoh in 6 months Do you feel safe at home: Yes Do you feel safe in your relationship?: Yes Meds Home Medications and Allergies Home Medications Medication Instructions Recorded Confirmed Type Velphoro 1,000 mg PO AC tab.chew 05/24/16 01/26/19 History acetaminophen [Acetaminophen Extra 1,000 mg PO Q6H PRN tab-cap 05/24/16 01/26/19 History Strength] amlodipine 10 mg PO DAILY tab-cap 05/24/16 01/26/19 History aspirin 81 mg PO DAILY tab-cap 05/24/16 01/26/19 History omeprazole 40 mg PO BID tab-cap 05/30/17 01/26/19 History Proventil Hfa 2 puff INHALATION BID inhaler 07/26/17 01/26/19 History Spiriva Respimat 1 puff INHALATION BID 07/26/17 01/26/19 History albuterol sulfate [ProAir HFA] 2 puff INHALATION Q4H PRN inhaler 07/26/17 01/26/19 History atorvastatin 40 mg PO DAILY #90 tab-cap 07/26/17 01/26/19 Rx fosinopril 20 mg PO BID 3 Days #180 tab-cap 07/26/17 01/26/19 History ibuprofen 600 mg PO Q6H PRN tab-cap 07/26/17 01/26/19 History ondansetron 4 mg PO Q8H PRN #10 tabef 08/11/17 01/26/19 History metoprolol tartrate 50 mg PO BID tab-cap 08/27/17 01/26/19 History minoxidil 2.5 mg PO HS 08/27/17 01/26/19 History ipratropium-albuterol 3 ml IH Q6H #90 ml 05/17/18 01/26/19 Rx methocarbamol 750 mg PO TID PRN #10 tab 09/17/18 01/26/19 Rx inhalational spacing device 01/26/19 01/26/19 History [Aerochamber MV] sucroferric oxyhydroxide [Velphoro] 500 mg PO PRN PRN 01/26/19 01/26/19 History Allergies Allergy/AdvReac Type Severity Reaction Status Date / Time cephalexin monohydrate Allergy Severe trouble Verified 01/26/19 16:12 [From Keflex] breathing allopurinol AdvReac Intermediate gout Verified 01/26/19 16:12 breakout erythromycin base AdvReac Intermediate gout Verified 01/26/19 16:12 breakout Exam Narrative Exam Narrative: General: Patient appears older than stated age, short stature but lean, alert and oriented x3 and in no acute distress. She does speak with a hoarse voice. HEENT: Normocephalic, eyes with pupils equal and reactive to light symmetrically and extraocular movement intact. Sclera anicteric. Oropharynx is slightly dry oral mucosa. Ears normal. Neck: Supple without JVD. Lungs: Decreased aeration diffusely with slightly increased expiratory phase especially on the left and expiratory wheeze mostly on the left. No focalizing rales or rhonchi. No intercostal retractions with inspiration. Back: Stooped posture without CVA tenderness. Heart: Regular rate and rhythm with 3/6 systolic murmur left sternal border. No gallops or rubs. Breast: Exam deferred. Abdomen: Scaphoid contour, soft and nontender with bowel sounds positive all quadrants. No palpable hepatosplenomegaly. Genitalia/rectal: Exam deferred. Extremities: Without clubbing, cyanosis or edema. Joints with fair range of motion. Peripheral pulses intact. There is a large AV fistula with palpable thrill over left forearm. Skin: Tanned, warm and dry. No rashes noted. Neuro: Cranial nerves II through XII grossly intact, no focalizing motor deficits. Psych: Pressured speech with normal mood and affect. Good eye contact. Normal thought processes. Recent and remote memory intact. Results Imaging Imaging Studies: Exam(s) PROCEDURE INFORMATION: Exam: XR Chest, 1 View Exam date and time: 01/26/2019 2:54 PM Clinical history: 53 years old, female; Other: Cough, SOB, R/O pneumonia TECHNIQUE: Imaging protocol: XR of the chest Views: 1 view. COMPARISON: CR XR CHEST 2V PA LATERAL 05/17/2018 2:34 PM FINDINGS: Prior median sternotomy unchanged. Moderate cardiomegaly unchanged. Interstitial lung disease most representing interstitial scarring. Mild hyperaeration. No definite focal consolidation. IMPRESSION: Cardiomegaly and mild chronic lung disease unchanged from prior exam. Dictated and Authenticated by: Milton Cunha MD. Labs Result diagrams: 01/26/19 14:31 01/26/19 14:31 Labs: Laboratory Results - last 24 hr 01/26/19 01/26/19 01/26/19 14:31 14:31 16:30 WBC 3.62 L RBC 3.57 L Hgb 10.9 L Hct 34.2 L MCV 95.8 H MCH 30.5 MCHC 31.9 L RDW 14.1 Plt Count 116 L MPV 13.1 H Immature Gran % 0.8 Neutrophils % 57.3 Lymphocytes % 16.0 Monocytes % 19.6 Eosinophils % 5.2 Basophils % 1.1 Absolute Neutrophils 2.07 Absolute Lymphocytes 0.58 L Absolute Monocytes 0.71 H Absolute Eosinophils 0.19 Absolute Basophils 0.04 Sample Site Right radial pCO2 42 pO2 54 L O2 Saturation 89 L ABG pH 7.45 ABG HCO3 29 H ABG Total CO2 27 ABG Base Excess 5.0 H Oxygen Liter Flow R/a Sodium 137 Potassium 4.1 Chloride 97 L Carbon Dioxide 29.1 Anion Gap 10.9 BUN 29 H Creatinine 6.47 H* Estimated GFR/1.73 m2 6.67 Glucose 112 H Calcium 8.6 Magnesium 1.7 L Total Bilirubin 0.8 AST 26 ALT 22 Alkaline Phosphatase 203 H Troponin I < 0.05 Total Protein 8.0 Albumin 4.2 Last Vital Signs Pulse 75 01/26/19 18:01 Resp 31 H 01/26/19 18:20 BP 173/89 H 01/26/19 18:01 Pulse Ox 99 01/26/19 18:20
[2019-01-26] MEDS: Omeprazole 20 MG CAPCR 40 MG PO (21:25)
[2019-01-26] MEDS: Atorvastatin 40 MG TAB PO (21:25)
[2019-01-26] MEDS: Metoprolol 50 MG TAB PO (21:25)
[2019-01-26] MEDS: Albuterol/Ipratropium 3 ML UPD VIAL UPD (21:25)
[2019-01-26] MEDS: Normal Saline Flush 10 ML SYR IVP (21:26)
[2019-01-26] MEDS: methylPREDNISolone SUCC 125 MG VIAL 80 MG IVP (21:26)
[2019-01-26] MEDS: Minoxidil 2.5 MG TAB PO (22:01)
[2019-01-26] MEDS: Ibuprofen 400 MG TAB 600 MG PO (22:01)
[2019-01-27] VITALS (7 sets, daily range): BP systolic 157–164; BP diastolic 77–88; PULSE 65–68; RESP 1–19; TEMP 36.5–37.1; O2SAT 94–99
[2019-01-27] MEDS: Acetaminophen 325 MG TAB 650 MG PO ×2 (00:53→08:15)
[2019-01-27] MEDS: guaiFENesin/D-METHORPHAN HB 5 ML CUP PO ×2 (00:54→08:14)
[2019-01-27] MEDS: Albuterol/Ipratropium 3 ML UPD VIAL UPD ×2 (03:57→11:36)
[2019-01-27] MEDS: methylPREDNISolone SUCC 125 MG VIAL 80 MG IVP (06:57)
[2019-01-27] MEDS: Normal Saline Flush 10 ML SYR IVP ×2 (06:57→08:16)
[2019-01-27 07:15] LABS: HCT 29.4 % (36.0-46.0); HGB 9.1 g/dL (12.0-15.5); Mean Corpuscular Hemoglobin 29.5 pg (27.0-33.0); Mean Corpuscular Volume 95.5 fL (80-95); Mean Platelet Volume 12.9 fL (8.0-11.0); Platelet Count 101 x1000/uL (130-400); RBC 3.08 m/cumm (4.00-5.20)
[2019-01-27 07:26] LABS: ALT 20 U/L (14-59); AST 21 U/L (15-37); Albumin 3.9 g/dL (3.4-5.0); Alkaline Phosphatase 172 U/L (46-116); Anion Gap 16.3 mmol/L (3-11); BUN 43 mg/dL (7-18); Bilirubin, Total 0.8 mg/dL (0.2-1.0); CO2 24.7 mmol/L (21.0-32.0); Calcium 8.1 mg/dL (8.5-10.1); Chloride 95 mmol/L (98-107); Estimated GFR 4.84 (mL/min/1.73m2); Glucose 138 mg/dL (70-100); Potassium 4.8 mmol/L (3.5-5.1); Sodium 136 mmol/L (136-145); Total Protein 7.5 g/dL (6.4-8.2)
[2019-01-27 07:27] LABS: CREATININE 8.54 mg/dL (0.55-1.02)
[2019-01-27] MEDS: amLODIPine 10 MG TAB PO (08:14)
[2019-01-27] MEDS: Aspirin 81 MG CHEW PO (08:14)
[2019-01-27] MEDS: Metoprolol 50 MG TAB PO (08:14)
[2019-01-27] MEDS: Omeprazole 20 MG CAPCR 40 MG PO (08:15)
--- NOTE | 2019-01-27 11:40 | DSE_ITS ---
Date of service: 01/27/19 Time of Service: 11:40 DS: Diagnosis Discharge Diagnosis (1) Acute exacerbation of chronic obstructive pulmonary disease (COPD): Status: Acute (2) Acute bronchitis: Status: Acute (3) Acute respiratory failure with hypoxia: Status: Resolved (4) End stage renal disease: Status: Chronic (5) Essential hypertension: Status: Chronic (6) Cannabis dependence: Status: Chronic Discharge Plan Disposition Patient Disposition: HOME Condition: Stable Discharge Details Chief Complaint: RespSymp Clinical Impression: COPD with acute exacerbation, ESRD (end stage renal disease) on dialysis, Hypoxia Reason For Visit: HYPOXEMIA W/EXACERB OF COPD,ESRD ON HEMODIALYSIS Admit Date/Time: 01/26/19 18:40 Admit Provider: Tony Mcallister Attending Provider: Tony Mcallsiter Primary Care Provider: Chano Neves ED Provider: Gladis Haji Hospital Course Hospital Course: Ms Huang is a 53 year old female with PMHx of non-oxygen dependent COPD, ESRD on HD M/W/F via LUE AV fistula, as well as hypertension, and ongoing tobacco and cannabis abuse, who was admitted to [facility] hospitalist service overnight on 01/26/19 due to acute hypoxic respiratory failure due to acute exacerbation of COPD/acute viral bronchitis. The patient was treated with Nebulizer treatments, systemic steroids, supplemental O2 (2L), which we were able to wean down to room air on discharge. Ambulatory pulse ox on discharge is 94% on room air, and the patient states that she is 200% better, specifying that she feels better than her baseline. We spoke at length about smoking cessation (both tobacco and cannabis); the patient declined nicotine replacement therapy. She appears euvolemic at the time of discharge and is stable for discharge home today with routine follow up with her outpatient dialysis tomorrow. Care for patient as well as completion of her discharge paperwork on discharge took 45 minutes. Home Meds and New Rx's Prescriptions: New prednisone 20 mg tablet 40 mg PO DAILY Qty: 6 RF: 0 Continued acetaminophen [Acetaminophen Extra Strength] 500 MG tablet 1,000 mg PO Q6H PRN RF: 0 amlodipine 10 MG tablet 10 mg PO DAILY RF: 0 aspirin 81 MG tablet,chewable 81 mg PO DAILY RF: 0 Velphoro 500 MG tablet,chewable 1,000 mg PO AC RF: 0 omeprazole 20 MG capsule,delayed release(DR/EC) 40 mg PO BID RF: 0 ibuprofen 400 MG tablet 600 mg PO Q6H PRN RF: 0 albuterol sulfate [ProAir HFA] 8.5 GM HFA aerosol inhaler 2 puff Inhalation Q4H PRN RF: 0 PROVENTIL HFA 18 GM HFA.AER.AD 2 puff Inhalation BID RF: 0 Spiriva Respimat 4 GM mist 1 puff Inhalation BID RF: 0 atorvastatin 40 MG tablet 40 mg PO DAILY Qty: 90 RF: 3 fosinopril 20 MG tablet 20 mg PO BID 3 Days Qty: 180 RF: 3 ondansetron 4 MG tablet,disintegrating 4 mg PO Q8H PRNQty: 10 RF: 1 minoxidil 2.5 MG tablet 2.5 mg PO HS RF: 0 metoprolol tartrate 50 MG tablet 50 mg PO BID RF: 0 methocarbamol 750 mg tablet 750 mg PO TID PRN (Reason: muscle spasm) Qty: 10 RF: 0 ipratropium-albuterol 0.5 mg-3 mg(2.5 mg base)/3 mL solution for nebulization 3 ml IH Q6H Qty: 90 RF: 0 Velphoro 500 mg Tablet,Chewable 500 mg PO PRN PRNRF: 0 No Action (DME) Aerochamber MV Spacer MISCELLANEOUS RF: 0 Discharge Instructions Instructions: Prednisone (By mouth), How to Stop Smoking (DC), Acute Bronchitis (GEN), COPD (Chronic Obstructive Pulmonary Disease) (DC) Additional Instructions: Finish your steroids as prescribed - your next dose of 40 mg of prednisone (2 tabs) is tomorrow morning. Return to the hospital with any fever, bleeding, chest pain, or shortness of breath. Do not smoke either tobacco or marijuana. Avoid being around smokers. Resume outpatient dialysis tomorrow as scheduled. Stand Alone Forms: Nursing Discharge Form Referrals: Chano Neves [Primary Care Provider] - Activity:: Activity as Tolerated Equipment/Supplies:: No Equipment Needed Diet:: renal Discharge Orders Discharge Orders: Discharge Order (Routine); Ordered 01/27/19 Ordered By: Kendra Verduzco DS: Summary Status at Discharge Functional status at discharge: independent ambulation Overall status at discharge: patient is back to baseline Mental Status: mental status grossly normal Speech and Movement: speech and movement normal Mood: congruent mood Affect: normal affect Exam Narrative Exam Narrative: General: very pleasant middle-aged female, speaking in lengthy statements - no shortness of breath observed, A&Ox3 HEENT: EOMI, MMM Heart: RRR, + GENO Lungs: CTAB with good bilateral air entry GI: abdomen is soft, nondistended, nontender Extremities: no e/c/c BLE's, LUE AVF with good bruit/thrill Psych Mental Status: mental status grossly normal Speech and Movement: speech and movement normal Mood: congruent mood Affect: normal affect DS: Data Vitals/I&O Vitals and I&O: Vital Signs Temperature 36.5 C 01/27/19 07:28 Temperature Source Tympanic 01/27/19 07:28 Pulse 67 01/27/19 08:00 Pulse Rhythm Regular 01/27/19 11:11 Pulse 78 01/26/19 19:40 Respiratory Rate 17 01/27/19 07:28 Respiratory Effort Non-Labored 01/27/19 11:11 Respiratory Depth Normal 01/27/19 11:11 Respiratory Pattern Normal 01/27/19 11:11 Blood Pressure 164/82 H 01/27/19 07:28 Blood Pressure Mean 100 01/26/19 19:01 Pulse Oximetry 94 L 01/27/19 09:42 Oxygen Delivery Method Room Air 01/27/19 09:42 Oxygen Flow Rate 0 01/27/19 09:42 Pain Level 3 01/27/19 08:15 Intake & Output 01/26/19 01/26/19 01/27/19 11:59 23:59 11:59 Intake Total 60 / 60 740 / 740 Balance 60 / 60 740 / 740 Weight 59.2 kg 58.8 kg Intake: IV Oral 60 / 60 730 / 730 Other: Urine Color Yellow Urine Appearance Clear Urine Odor Normal Comment pt on dialysis, does not void Voiding Methods Toilet Data Completed and Pending Completed studies during hospitalization [Text1]: CXR 01/26/19: Cardiomegaly and mild chronic lung disease unchanged from prior exam. Labs on day of discharge: Labs from last 24 hours 01/27/19 01/27/19 01/26/19 06:50 06:50 16:30 WBC 2.90 L RBC 3.08 L Hgb 9.1 L Hct 29.4 L MCV 95.5 H MCH 29.5 MCHC 31.0 L RDW 14.0 Plt Count 101 L MPV 12.9 H Immature Gran % Neutrophils % Lymphocytes % Monocytes % Eosinophils % Basophils % Absolute Neutrophils Absolute Lymphocytes Absolute Monocytes Absolute Eosinophils Absolute Basophils Sample Site Right radial pCO2 42 pO2 54 L O2 Saturation 89 L ABG pH 7.45 ABG HCO3 29 H ABG Total CO2 27 ABG Base Excess 5.0 H Oxygen Liter Flow R/a Sodium 136 Potassium 4.8 Chloride 95 L Carbon Dioxide 24.7 Anion Gap 16.3 H BUN 43 H D Creatinine 8.54 H* D Estimated GFR/1.73 m2 4.84 Glucose 138 H Calcium 8.1 L Magnesium Total Bilirubin 0.8 AST 21 ALT 20 Alkaline Phosphatase 172 H Troponin I Total Protein 7.5 Albumin 3.9 01/26/19 01/26/19 14:31 14:31 WBC 3.62 L RBC 3.57 L Hgb 10.9 L Hct 34.2 L MCV 95.8 H MCH 30.5 MCHC 31.9 L RDW 14.1 Plt Count 116 L MPV 13.1 H Immature Gran % 0.8 Neutrophils % 57.3 Lymphocytes % 16.0 Monocytes % 19.6 Eosinophils % 5.2 Basophils % 1.1 Absolute Neutrophils 2.07 Absolute Lymphocytes 0.58 L Absolute Monocytes 0.71 H Absolute Eosinophils 0.19 Absolute Basophils 0.04 Sample Site pCO2 pO2 O2 Saturation ABG pH ABG HCO3 ABG Total CO2 ABG Base Excess Oxygen Liter Flow Sodium 137 Potassium 4.1 Chloride 97 L Carbon Dioxide 29.1 Anion Gap 10.9 BUN 29 H Creatinine 6.47 H* Estimated GFR/1.73 m2 6.67 Glucose 112 H Calcium 8.6 Magnesium 1.7 L Total Bilirubin 0.8 AST 26 ALT 22 Alkaline Phosphatase 203 H Troponin I < 0.05 Total Protein 8.0 Albumin 4.2 PFSH Medical History Aortic stenosis (Chronic) COPD (chronic obstructive pulmonary disease) (Chronic) ESRD on dialysis (Chronic) Gallstones (Acute) Shoulder pain, right (Acute) continue with tylenol as needed/warmth call if not getting better Surgical History Abdominal hysterectomy (~2006) s/p hyst, but cervix still present and needs yearly PAP due to transplant Repair of umbilical hernia 1995,1997,2001,2003 TRANSPLANT, KIDNEY (~1997) LEFT Family History Mother Essential hypertension Personal history of malignant neoplasm KIDNEY Heart disease Pulmonary emphysema Father Personal history of malignant neoplasm Pulmonary emphysema Brother Hyperlipidemia Brother Hyperlipidemia Brother No problems noted. Social History Smoking/Tobacco Use Status: Current-Occasional Tobacco Type: cigarettes Alcohol Intake: former Drug use: Daily Substance use type: marijuana Details: pt states she has not drank etoh in 6 months Do you feel safe at home: Yes Do you feel safe in your relationship?: Yes
--- NOTE | 2019-01-27 13:31 | CMDISCH_ITS ---
- If Service Date Differs Date of service: 01/27/19 Time of Service: 13:31 LACE Index Scoring Tool - Questions: Length of Stay (in days): 1 Acuity (Admit via E.D.?): Yes Comorbidities: Chronic Pulmonary Disease, Liver or Renal Disease E.D. Visits: 6 - Answers: Total Score: 13 Risk of Readmission: High Risk Care Management Discharge Reason for Hospitalization: Hypoxemia Discharge Plan: Earlene will be discharged home with no new services. She will follow up with her PCP and helix coil winder and resume dialysis tomorrow. She will transport via private vehicle with family. Patient/Family Education Needs: Discharge plan, limitations, follow up plan and Ask Me Three
== END 2019-01-27 12:55 | disposition home or self-care (01) ==
LOC: ER 18:58 → MS 19:54
PROVIDERS: Admitting Provider Family Medicine; Emergency Provider Physician Assistant; PCP Family Medicine; Visit Provider Internal Medicine
DX: J44.1 Chronic obstructive pulmonary disease with (acute) exacerbation (principal); J44.0 Chronic obstructive pulmonary disease with (acute) lower respiratory infection; J20.8 Acute bronchitis due to other specified organisms; J96.01 Acute respiratory failure with hypoxia; N18.6 End stage renal disease; I10 Essential (primary) hypertension; F12.20 Cannabis dependence, uncomplicated; Z99.2 Dependence on renal dialysis; Z72.0 Tobacco use; K21.0 Gastro-esophageal reflux disease with esophagitis
CPT/HCPCS: 36415; 80053; 82805; 85027; 93005; 94640; 96374; 96375; 96376; 99220; 99239; 99285; 36600; 71045; 83735; 84484; 85025; 93010; 99217; G0378; J2060; J2930; J7613; J7620

== ENCOUNTER 2019-02-28 14:57 | Emergency (ER) | payer MEDICARE, OTHER, SELFPAY ==
[2019-02-28 15:07] VITALS: BP 141/80; PULSE 62; RESP 16; TEMP 36.7; O2SAT 95
--- NOTE | 2019-02-28 15:24 | ED.GENADUL_ITS ---
Discharge Plan Disposition Patient Disposition: HOME Discharge Details Chief Complaint: Vascular Clinical Impression: Hemorrhage of arteriovenous fistula Primary Care Provider: Chano Neves ED Provider: Chavez Thompson Home Meds and New Rx's Prescriptions: No Action levofloxacin 250 mg tablet 500 mg PO Q48H Qty: 6 RF: 0 acetaminophen [Acetaminophen Extra Strength] 500 MG tablet 1,000 mg PO Q6H PRN RF: 0 amlodipine 10 MG tablet 10 mg PO DAILY RF: 0 aspirin 81 MG tablet,chewable 81 mg PO DAILY RF: 0 Velphoro 500 MG tablet,chewable 1,000 mg PO AC RF: 0 omeprazole 20 MG capsule,delayed release(DR/EC) 40 mg PO BID RF: 0 ibuprofen 400 MG tablet 600 mg PO Q6H PRN RF: 0 albuterol sulfate [ProAir HFA] 8.5 GM HFA aerosol inhaler 2 puff Inhalation Q4H PRN RF: 0 PROVENTIL HFA 18 GM HFA.AER.AD 2 puff Inhalation BID RF: 0 Spiriva Respimat 4 GM mist 1 puff Inhalation BID RF: 0 atorvastatin 40 MG tablet 40 mg PO DAILY Qty: 90 RF: 3 fosinopril 20 MG tablet 20 mg PO BID 3 Days Qty: 180 RF: 3 minoxidil 2.5 MG tablet 2.5 mg PO HS RF: 0 metoprolol tartrate 50 MG tablet 50 mg PO BID RF: 0 methocarbamol 750 mg tablet 750 mg PO TID PRN (Reason: muscle spasm) Qty: 10 RF: 0 ipratropium-albuterol 0.5 mg-3 mg(2.5 mg base)/3 mL solution for nebulization 3 ml IH Q6H Qty: 90 RF: 0 Velphoro 500 mg Tablet,Chewable 500 mg PO PRN PRNRF: 0 (DME) Aerochamber MV Spacer MISCELLANEOUS RF: 0 Discharge Instructions Additional Instructions: Keep pressure dressing on site for the next 4 to 5 hours. Return to the emergency department should you bleed through the dressing. Return sooner should he develop swelling, severe pain or numbness of the hand. Follow-up with your primary care provider as needed. Call should you have any questions or concerns. Referrals: Chano Neves [Primary Care Provider] - 1 week Medical Decision Making This is a nontoxic-appearing 53-year-old female presenting to the emergency department with slow bleed from her left fistula. Neurovascularly intact status post pressure dressing. We will keep pressure dressing on for the next 4 hours and have her remove it at home. Return precautions provided including distal arm swelling, severe pain, or bleeding through the dressing. HPI General Date/Time Provider Initiated Documentation: 02/28/19 15:12 . HPI Narrative: Patient is a 53-year-old female on hemodialysis who presents to the emergency department with ongoing left fistula bleeding that she describes a slow ooze. She is changed roughly 4-5 bandages over the last 24 hours. She denies any pulsatile bleeding. She is not on any oral anticoagulation. She denies any chest pain or lightheadedness. Related Data Home Medications Medication Instructions Recorded Confirmed Velphoro 1,000 mg PO AC tab.chew 05/24/16 02/28/19 acetaminophen [Acetaminophen Extra 1,000 mg PO Q6H PRN tab-cap 05/24/16 02/28/19 Strength] amlodipine 10 mg PO DAILY tab-cap 05/24/16 02/28/19 aspirin 81 mg PO DAILY tab-cap 05/24/16 02/28/19 omeprazole 40 mg PO BID tab-cap 05/30/17 02/28/19 Proventil Hfa 2 puff INHALATION BID inhaler 07/26/17 02/28/19 Spiriva Respimat 1 puff INHALATION BID 07/26/17 02/28/19 albuterol sulfate [ProAir HFA] 2 puff INHALATION Q4H PRN inhaler 07/26/17 02/28/19 atorvastatin 40 mg PO DAILY #90 tab-cap 07/26/17 02/28/19 fosinopril 20 mg PO BID 3 Days #180 tab-cap 07/26/17 02/28/19 ibuprofen 600 mg PO Q6H PRN tab-cap 07/26/17 02/28/19 metoprolol tartrate 50 mg PO BID tab-cap 08/27/17 02/28/19 minoxidil 2.5 mg PO HS 08/27/17 02/28/19 ipratropium-albuterol 3 ml IH Q6H #90 ml 05/17/18 02/28/19 methocarbamol 750 mg PO TID PRN #10 tab 09/17/18 02/28/19 Velphoro 500 mg PO PRN PRN 01/26/19 02/28/19 inhalational spacing device 01/26/19 02/05/19 [Aertahir MV] levofloxacin 250 mg tablet 500 mg PO Q48H #6 tab 02/05/19 02/28/19 Previous Rx's Medication Instructions Recorded atorvastatin 40 mg PO DAILY #90 tab-cap 07/26/17 ipratropium-albuterol 3 ml IH Q6H #90 ml 05/17/18 methocarbamol 750 mg PO TID PRN #10 tab 09/17/18 levofloxacin 250 mg tablet 500 mg PO Q48H #6 tab 02/05/19 Allergies Allergy/AdvReac Type Severity Reaction Status Date / Time cephalexin monohydrate Allergy Severe trouble Verified 02/28/19 15:11 [From Keflex] breathing allopurinol AdvReac Intermediate gout Verified 02/28/19 15:11 breakout erythromycin base AdvReac Intermediate gout Verified 02/28/19 15:11 breakout General Stated Complaint: Vascular AWA: 3 Review of Systems All systems reviewed & are unremarkable except as noted in HPI and below PFSH Medical History Aortic stenosis (Chronic) COPD (chronic obstructive pulmonary disease) (Chronic) ESRD on dialysis (Chronic) Gallstones (Acute) Shoulder pain, right (Acute) continue with tylenol as needed/warmth call if not getting better Surgical History Abdominal hysterectomy (~2006) s/p hyst, but cervix still present and needs yearly PAP due to transplant Repair of umbilical hernia 1995,1997,2001,2003 TRANSPLANT, KIDNEY (~1997) LEFT Family History Mother Essential hypertension Personal history of malignant neoplasm KIDNEY Heart disease Pulmonary emphysema Father Personal history of malignant neoplasm Pulmonary emphysema Brother Hyperlipidemia Brother Hyperlipidemia Brother No problems noted. Social History Smoking/Tobacco Use Status: Former Tobacco Use Alcohol Intake: former Drug use: Daily Substance use type: marijuana Details: pt states she has not drank etoh in 6 months Do you feel safe at home: Yes Do you feel safe in your relationship?: Yes Exam Const General: cooperative, comfortable and no acute distress Orientation: alert, awake and oriented x3 HENMT Head: normal to inspection Eyes General: appearance normal, both eyes and all related structures Sclera: sclerae normal Pupils: PERRL EOM: EOM intact bilaterally Resp Effort & Inspection: normal respiratory effort and able to speak in complete sentences Extrem Other: Palpable thrill over the left fistula. Small ooze from vascular access. No arterial bleeding. Course Vital Signs Vital signs: Vital Signs Temperature 36.7 C 02/28/19 15:07 Pulse 62 02/28/19 15:07 Respiratory Rate 16 02/28/19 15:07 Blood Pressure 141/80 H 02/28/19 15:07 Pulse Oximetry 95 02/28/19 15:07 Temperature 36.7 C 02/28/19 15:07 Temperature Source Skin 02/28/19 15:07 Pulse 62 02/28/19 15:07 Respiratory Rate 16 02/28/19 15:07 Respiratory Effort Non-Labored 02/28/19 15:07 Blood Pressure 141/80 H 02/28/19 15:07 Blood Pressure Position Sitting 02/28/19 15:07 Pulse Oximetry 95 02/28/19 15:07 Oxygen Delivery Method Room Air 02/28/19 15:07 Oxygen Flow Rate 0 02/28/19 15:07 Pain Level 0 02/28/19 15:07
== END 2019-02-28 16:12 | disposition home or self-care (01) ==
PROVIDERS: Emergency Provider Physician Assistant; PCP Family Medicine
DX: T82.838A Hemorrhage due to vascular prosthetic devices, implants and grafts, initial encounter (principal); N18.6 End stage renal disease; Z99.2 Dependence on renal dialysis; J44.9 Chronic obstructive pulmonary disease, unspecified; Z87.891 Personal history of nicotine dependence
CPT/HCPCS: 99281; 99282

== ENCOUNTER 2019-03-18 12:20 | Emergency (ER) | payer MEDICARE, SELFPAY ==
[2019-03-18] VITALS (29 sets, daily range): BP systolic 161–192; BP diastolic 73–94; PULSE 73–84; RESP 15–23; TEMP 36.8–37; O2SAT 87–97
--- NOTE | 2019-03-18 12:30 | ED.GENADUL_ITS ---
Discharge Plan Disposition Patient Disposition: OTHER Condition: Stable Discharge Details Chief Complaint: Abd Prob Clinical Impression: Abdominal pain, Dyspnea Primary Care Provider: Chano Neves ED Provider: Bhanu Mayorga Home Meds and New Rx's Prescriptions: No Action acetaminophen [Acetaminophen Extra Strength] 500 MG tablet 1,000 mg PO Q6H PRN RF: 0 amlodipine 10 MG tablet 10 mg PO DAILY RF: 0 aspirin 81 MG tablet,chewable 81 mg PO DAILY RF: 0 Velphoro 500 MG tablet,chewable 1,000 mg PO AC RF: 0 albuterol sulfate [ProAir HFA] 8.5 GM HFA aerosol inhaler 2 puff Inhalation Q4H PRN RF: 0 PROVENTIL HFA 18 GM HFA.AER.AD 2 puff Inhalation BID RF: 0 Spiriva Respimat 4 GM mist 1 puff Inhalation BID RF: 0 minoxidil 2.5 MG tablet 2.5 mg PO BID RF: 0 metoprolol succinate 25 mg Tablet Extended Release 24 Hr 25 mg PO BID RF: 0 omeprazole 40 mg Capsule,Delayed Release(Dr/Ec) 40 mg PO BID RF: 0 lisinopril 20 mg Tablet 20 mg PO BID RF: 0 meclizine 12.5 mg Tablet 12.5 mg PO PRN PRNRF: 0 ipratropium-albuterol 0.5 mg-3 mg(2.5 mg base)/3 mL solution for nebulization 3 ml IH Q6H Qty: 90 RF: 0 Velphoro 500 mg Tablet,Chewable 500 mg PO PRN PRNRF: 0 (DME) Aerochamber MV Spacer MISCELLANEOUS RF: 0 Discharge Data Discharge Date/Time-TO BE ENTERED AT DEPARTURE: 03/18/19 19:45 Medical Decision Making <Ivy Cooper MD - Last Filed: 03/25/19 09:48> Earlene Huang is a 53-year-old woman with a history of renal failure on dialysis, COPD, aortic valve repair, CHF, hypertension who presented to the emergency department with lower abdominal pain, increased episodes of bowel movements with softer stool than usual for the past 3 days, nausea. On exam patient is somewhat chronically ill-appearing but acutely nontoxic. Appears comfortable. Expiratory wheeze bilateral lower lobes without increased work of breathing. Mild tenderness palpation across lower abdomen, worse in the left lower quadrant without peritoneal signs. Concern for diverticulitis versus colitis versus other, possible metabolic/lyte derangement. Possible mild COPD exacerbation. Exam/history is not consistent with acute aortic process, ACS, PE, sepsis. Plan for EKG, screening labs, CT abdomen/pelvis, DuoNeb. After CT abdomen/pelvis ordered, patient stating that she would prefer to have CT abdomen/pelvis without contrast due to her renal failure status. I discussed with patient that given that she makes no urine, there is no significant indication to avoid IV contrast at this time. With informed decision making, patient continued to refuse CT abdomen/pelvis with contrast and prefer CT abdomen/pelvis without contrast, she verbalizes the risks of potentially missing significant findings. CT abdomen/pelvis resulted as negative. On reassessment patient reports that she feels well and feels that her abdominal pain and nausea can be managed at home. Patient found to be hypoxic in the mid to high 80s well on room air. Patient reports her normal oxygen saturation is 94%. She does not have home oxygen. Expiratory wheeze continues as on initial exam after DuoNeb. Plan for repeat DuoNeb's, chest x-ray for COPD exacerbation. Patient reports that she has frequent COPD exacerbations in the cold weather, and reports that she noticed her shortness of breath did seem worse this morning while she was out in the cold. After DuoNeb's patient O2 sat remains in mid 80s while she is at rest. While speaking her oxygen saturation increases to 89% on room air. Given that patient has no home O2, plan for admission. 16:15 called [facility], who stated they are at capacity and not accepting noncritical patients. I did discuss the patient with Dr. Verduzco of hospitalist medicine here at [facility], who refused patient based on dialysis status and patient likely to need dialysis prior to her discharge. [facility] transfer center contacted 16:20, awaiting callback. Discussed patient presentation results with Dr. Root hospitalist at [facility]. Patient was reviewed secondary to capacity issues. I called [facility] and discussed patient presentation results, patient refused secondary to capacity issues. Patient was accepted at [facility] in [facility], accepting physician Dr. Stroud. Patient presentation results discussed with accepting physician. On reassessment, patient remains oxygen dependent. Low suspicion for pulmonary embolism, however given relatively benign respiratory exam, no improvement in hypoxia after DuoNeb's,, concern for possible PE at this time. I had a lengthy discussion regarding need for IV contrast for PE study, patient is amenable to obtaining CTA of the chest. Awaiting bed assignment at [facility], will obtain CT chest in the meantime. Patient signed out to Dr. Mayorga at time shift change with CTA, transfer pending. Medical Records Medical records reviewed: Yes I reviewed the patient's medical records. Imaging Data Radiologic Study: Attestation: I personally reviewed and interpreted this imaging study as follows: Radiologist's impression: EXAM: XR CHEST 2V PA AND LATERAL INDICATION: COUGH. COMPARISON: XR PORTABLE CHEST AP from 01/26/2019 TECHNIQUE: 2D digital imaging was performed. FINDINGS: Heart is markedly enlarged, unchanged. Sternal wires and aortic valve prosthesis are again noted. There is no evidence of focal infiltrate, pleural effusion or pulmonary edema. IMPRESSION: Cardiomegaly. No acute abnormality. EXAM: CT ABDOMEN AND PELVIS WO CLINICAL HISTORY: LLQ pain TECHNIQUE: Noncontrast. COMPARISON: CT ABDOMEN PELVIS WO from 09/27/2018 FINDINGS: The heart is enlarged. The lung bases are clear. The liver again has a nodular cirrhotic appearance. The kidneys are atrophic. There is a small amount of fluid around the liver as well as in the pelvis. The spleen is enlarged. Splenic varices are noted. There are numerous calcified stones in the gallbladder. There is no abnormal gallbladder wall thickening or biliary dilatation. The adrenals and pancreas are unremarkable. There is extensive diverticulosis seen throughout the colon. There is no evidence of diverticulitis. There is no small bowel dilatation. The appendix appears normal. There has been prior bilateral hernia repair. There is extensive vascular calcification. IMPRESSION: Diverticulosis. No evidence of diverticulitis. No acute abnormalities identified Lab Data Lab results reviewed: Yes I reviewed the patient's lab results. Labs: Laboratory Tests Range/Units 03/18/19 03/18/19 03/18/19 12:55 12:55 12:55 WBC (4.4-10.8) k/cumm 4.45 RBC (4.00-5.20) m/cumm 3.57 L Hgb (12.0-15.5) g/dL 11.1 L Hct (36.0-46.0) % 34.9 L MCV (80-95) fL 97.8 H MCH (27.0-33.0) pg 31.1 MCHC (32.0-36.0) g/dL 31.8 L RDW (11.7-14.6) % 15.0 H Plt Count (130-400) x1000/uL 126 L MPV (8.0-11.0) fL 11.5 H Immature Gran % % 0.2 Neutrophils % 72.4 Lymphocytes % 12.4 Monocytes % 9.2 Eosinophils % 4.9 Basophils % 0.9 Absolute Neutrophils (1.2-6.7) k/cumm 3.22 Absolute Lymphocytes (1.2-3.4) k/cumm 0.55 L Absolute Monocytes (0.11-0.7) k/cumm 0.41 Absolute Eosinophils (0.0-0.7) k/cumm 0.22 Absolute Basophils (0.0-0.2) k/cumm 0.04 Sodium (136-145) mmol/L 138 Potassium (3.5-5.1) mmol/L 3.6 Chloride (98-107) mmol/L 97 L Carbon Dioxide (21.0-32.0) mmol/L 33.5 H Anion Gap (3-11) mmol/L 7.5 BUN (7-18) mg/dL 12 Creatinine (0.55-1.02) mg/dL 3.56 H* Estimated GFR/1.73 m2 (mL/min/1.73m2) 13.30 Glucose (74-106) mg/dL 81 Lactate (0.6-1.4) mmol/L 0.5 L Calcium (8.5-10.1) mg/dL 8.8 Magnesium (1.8-2.4) mg/dL 1.7 L Total Bilirubin (0.2-1.0) mg/dL 0.8 AST (15-37) U/L 21 ALT (14-59) U/L 19 Alkaline Phosphatase (46-116) U/L 175 H Troponin I (<0.06) ng/Ml < 0.05 Total Protein (6.4-8.2) g/dL 7.2 Albumin (3.4-5.0) g/dL 3.7 Lipase (73-393) U/L 190 ECG Data Attestation: I personally reviewed and interpreted this ECG (s) as follows: Interpretation: EKG shows sinus rhythm at 81, normal axis, right bundle branch block, T wave inversions V1 through V4, T wave inversions present on prior V1 through V2, no STEMI, nondiagnostic EKG <Bhanu Mayorga DO - Last Filed: 03/18/19 21:48> Patient was signed out to me by my colleague Dr. Ivy Cooper. Disposition had already been made and we are waiting EMS personnel for transfer. The patient's was discharged to the other facility safely, Zofran was given for nausea. The patient had no other complaints or challenges here in the ED during her brief time after transfer of care. CT scan demonstrates no evidence of pulmonary embolism. FINDINGS: Pulmonary arteries: Enlarged main pulmonary artery measures 4.6 cm. No evidence for pulmonary embolus. Aorta: Atherosclerotic disease. Lungs: Emphysematous lung disease. 2.0 cm lung mass versus infiltrate left upper lobes posterior lateral segment. 0.5 cm right upper lobe lung nodule series 6, image 28. Prominent pulmonary vasculature. Pleural space: Unremarkable. No pneumothorax. No pleural effusion. Heart: Cardiomegaly. Interval cardiac surgery with sternotomy wires and prosthetic valve in place. Coronary artery disease. Mediastinum: Hiatal hernia. Lymph nodes: Mediastinal lymph nodes. Bones/joints: Multilevel degenerative changes of the spine. Soft tissues: Unremarkable. IMPRESSION: 1. No evidence for pulmonary embolus. 2. Enlarged main pulmonary artery. 3. Emphysematous lung disease. 4. 2.0 cm lung nodule versus infiltrate posterior segment left upper lobe series 10, image 33. 0.5 cm right upper lobe lung nodule series 2, image 28. 5. Cardiomegaly. Interval cardiac surgery with prosthetic valve. Coronary artery disease. Dictated and Authenticated by: Mel Vallejo MD. Ordering:GUNNAR Haynes MD HPI <Ivy Cooper MD - Last Filed: 03/25/19 09:48> General Mode of arrival: ambulatory . Date/Time Provider Initiated Documentation: 03/18/19 12:30 . Limitations to Documentation: no limitations . Information obtained by: patient, RN notes reviewed and old records reviewed . HPI Narrative: Earlene Huang is a 53-year-old woman with a history of COPD, renal failure on dialysis for the past 8 years, GERD, hypertension, CHF, aortic valve replacement presenting to the emergency department with abdominal pain, loose stool. Patient reports that for the past 3 days she has had lower abdominal pain, worse on the left in addition to softer and looser stools than usual, patient reports that stool is not liquid or watery. It is light brown in color. Patient also reports nausea and dry heaving without vomiting. She has been able to eat and drink essentially as usual. Patient received a full course of dialysis today, gets dialysis Monday. She states that she has not made any urine in the past 8 years. Patient reports that she has history of COPD and is not on home O2. She reports that she has chronic shortness of breath and cough that are currently at baseline. She denies fevers, rash, numbness, weakness. Related Data Home Medications Medication Instructions Recorded Confirmed Velphoro 1,000 mg PO AC tab.chew 05/24/16 03/18/19 acetaminophen [Acetaminophen Extra 1,000 mg PO Q6H PRN tab-cap 05/24/16 03/18/19 Strength] amlodipine 10 mg PO DAILY tab-cap 05/24/16 03/18/19 aspirin 81 mg PO DAILY tab-cap 05/24/16 03/18/19 Proventil Hfa 2 puff INHALATION BID inhaler 07/26/17 03/18/19 Spiriva Respimat 1 puff INHALATION BID 07/26/17 03/18/19 albuterol sulfate [ProAir HFA] 2 puff INHALATION Q4H PRN inhaler 07/26/17 03/18/19 minoxidil 2.5 mg PO BID 08/27/17 03/18/19 ipratropium-albuterol 3 ml IH Q6H #90 ml 05/17/18 03/18/19 Velphoro 500 mg PO PRN PRN 01/26/19 03/18/19 inhalational spacing device 01/26/19 03/18/19 [Aerochamber MV] lisinopril 20 mg PO BID 03/18/19 03/18/19 meclizine 12.5 mg PO PRN PRN 03/18/19 03/18/19 metoprolol succinate 25 mg PO BID 03/18/19 03/18/19 omeprazole 40 mg PO BID 03/18/19 03/18/19 Previous Rx's Medication Instructions Recorded ipratropium-albuterol 3 ml IH Q6H #90 ml 05/17/18 Allergies Allergy/AdvReac Type Severity Reaction Status Date / Time cephalexin monohydrate Allergy Severe trouble Verified 02/28/19 15:11 [From Keflex] breathing colchicine Allergy Unverified 03/18/19 12:34 allopurinol AdvReac Intermediate gout Verified 02/28/19 15:11 breakout erythromycin base AdvReac Intermediate gout Verified 02/28/19 15:11 breakout General AWA: 3 Review of Systems <Ivy Cooper MD - Last Filed: 03/25/19 09:48> Narrative: Constitutional: denies fevers Eyes: denies eye pain ENT: denies ear pain, dental pain, sore throat Cardiovascular: denies chest pain Respiratory: denies SOB, cough GI: denies vomiting, diarrhea, constipation, reports increase in frequency of stool, soft stool, abdominal pain : denies flank pain MSK: denies back pain, neck pain, arthralgias, myalgias Skin: denies rash Neuro: denies headaches, numbness, weakness PFSH <Ivy Cooper MD - Last Filed: 03/25/19 09:48> Medical History Aortic stenosis (Chronic) COPD (chronic obstructive pulmonary disease) (Chronic) ESRD on dialysis (Chronic) Gallstones (Acute) Shoulder pain, right (Acute) continue with tylenol as needed/warmth call if not getting better Social History Smoking/Tobacco Use Status: Former Tobacco Use Alcohol Intake: former Drug use: Daily Substance use type: marijuana Details: pt states she has not drank etoh in 6 months Do you feel safe at home: Yes Do you feel safe in your relationship?: Yes Exam <Ivy Cooper MD - Last Filed: 03/25/19 09:48> Narrative Exam Narrative: Constitutional: Somewhat chronically ill but acutely [id number], pleasant, conversing normally HENT: head atraumatic/normocephalic/normal inspection, mucous membranes moist Eyes: conjunctiva normal, sclera normal, pupils 3mm b/l Neck: no stridor, normal ROM, trachea midline Chest: normal inspection Resp: normal work of breathing, expiratory wheeze bilateral lower lobes without rales or rhonchi Cardio: normal rate, normal rhythm, no murmur appreciated GI: abdomen soft, non-distended, mild tenderness to palpation across the lower abdomen worse in the left lower quadrant, no rebound, no guarding Back: normal inspection, no rash Skin: warm, dry, normal color, no rash Neuro: alert, not altered, grossly non-focal, normal tone Ext: no edema, no posterior calf tenderness to palpation Psych: normal mood, normal affect, normal behavior Sign Out <Ivy Cooper MD - Last Filed: 03/25/19 09:48> Sign Out Data: Sign Out Comment: Patient signed out to Dr. Mayorga at time of shift change with CTA chest, transfer pending Last updated by Ivy Cooper MD at 03/18/19 17:46
[2019-03-18 13:04] LABS: Lactate 0.5 mmol/L (0.6-1.4)
[2019-03-18 13:05] LABS: Abs Immature Grans 0.01 k/cumm (0.0-0.09); Absolute Basophil Count 0.04 k/cumm (0.0-0.2); Absolute Eosinophil Count 0.22 k/cumm (0.0-0.7); Absolute Lymphocyte Count 0.55 k/cumm (1.2-3.4); Absolute Monocyte Count 0.41 k/cumm (0.11-0.7); Absolute Neutrophil Count 3.22 k/cumm (1.2-6.7); Basophils % 0.9; Eosinophils % 4.9; HCT 34.9 % (36.0-46.0); HGB 11.1 g/dL (12.0-15.5); Immature Grans % 0.2 %; Lymphocytes % 12.4; Mean Corp. HGB Concentration 31.8 g/dL (32.0-36.0); Mean Corpuscular Hemoglobin 31.1 pg (27.0-33.0); Mean Corpuscular Volume 97.8 fL (80-95); Mean Platelet Volume 11.5 fL (8.0-11.0); Monocytes % 9.2; Neutrophils % 72.4; Platelet Count 126 x1000/uL (130-400); RBC 3.57 m/cumm (4.00-5.20); White Blood Cell Count 4.45 k/cumm (4.4-10.8)
[2019-03-18 13:29] LABS: ALT 19 U/L (14-59); AST 21 U/L (15-37); Albumin 3.7 g/dL (3.4-5.0); Alkaline Phosphatase 175 U/L (46-116); Anion Gap 7.5 mmol/L (3-11); BUN 12 mg/dL (7-18); Bilirubin, Total 0.8 mg/dL (0.2-1.0); CO2 33.5 mmol/L (21.0-32.0); Calcium 8.8 mg/dL (8.5-10.1); Chloride 97 mmol/L (98-107); Glucose 81 mg/dL (74-106); Magnesium 1.7 mg/dL (1.8-2.4); Potassium 3.6 mmol/L (3.5-5.1); Sodium 138 mmol/L (136-145); Total Protein 7.2 g/dL (6.4-8.2); Troponin I < 0.05 ng/Ml (<0.06)
[2019-03-18 13:35] LABS: CREATININE 3.56 mg/dL (0.55-1.02)
--- NOTE | 2019-03-18 13:52 | DI.CT_ITS ---
EXAM: CT ABDOMEN AND PELVIS WO CLINICAL HISTORY: LLQ pain TECHNIQUE: Noncontrast. COMPARISON: CT ABDOMEN PELVIS WO from 09/27/2018 FINDINGS: The heart is enlarged. The lung bases are clear. The liver again has a nodular cirrhotic appearance . The kidneys are atrophic. There is a small amount of fluid around the liver as well as in the pel vis. The spleen is enlarged. Splenic varices are noted. There are numerous calcified stones in the gallbladder. There is no abnormal gallbladder wall thickening or biliary dilatation. The adrenals and pancreas are unremarkable. There is extensive diverticulosis seen throughout the colon. There i s no evidence of diverticulitis. There is no small bowel dilatation. The appendix appears normal. There has been prior bilateral hernia repair. There is extensive vascular calcification. IMPRESSION: Diverticulosis. No evidence of diverticulitis. No acute abnormalities identified
[2019-03-18] MEDS: Albuterol/Ipratropium 3 ML UPD VIAL UPD ×3 (14:48→15:16)
[2019-03-18] MEDS: Ondansetron 4 MG/2 ML VIAL IVP (15:16)
--- NOTE | 2019-03-18 15:36 | DI.RAD_ITS ---
EXAM: XR CHEST 2V PA AND LATERAL INDICATION: COUGH. COMPARISON: XR PORTABLE CHEST AP from 01/26/2019 TECHNIQUE: 2D digital imaging was performed. FINDINGS: Heart is markedly enlarged, unchanged. Sternal wires and aortic valve prosthesis are again noted. T here is no evidence of focal infiltrate, pleural effusion or pulmonary edema. IMPRESSION: Cardiomegaly. No acute abnormality.
[2019-03-18 15:42] LABS: Lipase 190 U/L (73-393)
--- NOTE | 2019-03-18 15:45 | NUR.NOTE ---
pt still c/o nausa that was made worse by movement Nursing Note:
[2019-03-18] MEDS: Meclizine 12.5 MG TAB PO (16:16)
[2019-03-18] MEDS: methylPREDNISolone SUCC 125 MG VIAL IVP (16:21)
--- NOTE | 2019-03-18 18:21 | DI.CT_ITS ---
EXAM: CT CHEST PE CTA CLINICAL HISTORY: hypoxia TECHNIQUE: Axial CT angiography was performed with multi-slice acquisition and multi-planar and/or 3 D reconstructions. 120 cc's of Omnipaque 350 was utilized. COMPARISON: CT chest/abd/pel wo from 02/12/2018 CT ABDOMEN PELVIS WO from 03/18/2019 XR CHEST 2V PA LATERAL from 03/18/2019 FINDINGS: There is no evidence of pulmonary emboli or aortic dissection. An aortic valve prosthesis and sternal wires are noted. The main pulmonary artery is dilated with a diameter of 4.6 cm. No pleural or peric ardial effusion or pneumothorax is seen. There are mild underlying emphysematous changes. Evaluation of the lungs is limited by respiratory motion. There is an area of atelectasis versus infiltrate in t he lateral left upper lobe. There is a pretracheal lymph node measuring 3.2 cm, increased in size from the previous exam. IMPRESSION: No evidence of pulmonary emboli. Dilated pulmonary artery. Small focus of atelectasis versus infiltra te in the left upper lobe.
[2019-03-18] MEDS: Omnipaque 350 MG/ML 100 ML BTL IJ ×2 (18:34→18:35)
[2019-03-18] MEDS: Metoclopramide 10 MG/2 ML VIAL IVP (18:35)
--- NOTE | 2019-03-18 19:57 | DI.VRAD_ITS ---
PROCEDURE INFORMATION: Exam: CT Angiography Chest With Contrast Exam date and time: 03/18/2019 6:18 PM Age: 53 years old Clinical indication: Other: Hypoxia; Prior surgery; Patient HX: On dialysis, symptoms n/v, dizziness; Additional info: Missed bolus with first attempt. When i did the second exam i slowed down injection rate and was able to obtain diagnostic quality imaging TECHNIQUE: Imaging protocol: Computed tomographic angiography of the chest with intravenous contrast. 3D rendering: MIP and/or 3D reconstructed images were created by the technologist. COMPARISON: CT CHEST FOR PULMONARY EMBOLUS 26/04/2016 20:56 FINDINGS: Pulmonary arteries: Enlarged main pulmonary artery measures 4.6 cm. No evidence for pulmonary embolus. Aorta: Atherosclerotic disease. Lungs: Emphysematous lung disease. 2.0 cm lung mass versus infiltrate left upper lobes posterior lateral segment. 0.5 cm right upper lobe lung nodule series 6, image 28. Prominent pulmonary vasculature. Pleural space: Unremarkable. No pneumothorax. No pleural effusion. Heart: Cardiomegaly. Interval cardiac surgery with sternotomy wires and prosthetic valve in place. Coronary artery disease. Mediastinum: Hiatal hernia. Lymph nodes: Mediastinal lymph nodes. Bones/joints: Multilevel degenerative changes of the spine. Soft tissues: Unremarkable. IMPRESSION: 1. No evidence for pulmonary embolus. 2. Enlarged main pulmonary artery. 3. Emphysematous lung disease. 4. 2.0 cm lung nodule versus infiltrate posterior segment left upper lobe series 10, image 33. 0.5 cm right upper lobe lung nodule series 2, image 28. 5. Cardiomegaly. Interval cardiac surgery with prosthetic valve. Coronary artery disease. Dictated and Authenticated by: Mel Vallejo MD. Ordering:GUNNAR Haynes MD
== END 2019-03-18 19:45 | disposition other institution (70) ==
PROVIDERS: Student in an Organized Health Care Education/Training Program; Emergency Provider Student in an Organized Health Care Education/Training Program; PCP Family Medicine
DX: R10.32 Left lower quadrant pain (principal); R11.0 Nausea; R19.7 Diarrhea, unspecified; R09.02 Hypoxemia; N18.6 End stage renal disease; I12.0 Hypertensive chronic kidney disease with stage 5 chronic kidney disease or end stage renal disease; Z99.2 Dependence on renal dialysis; J44.9 Chronic obstructive pulmonary disease, unspecified; Z87.891 Personal history of nicotine dependence; Z95.2 Presence of prosthetic heart valve
CPT/HCPCS: 36415; 71275; 80053; 83690; 93005; 94640; 96374; 96375; 96376; 99285; 71046; 74176; 83605; 83735; 84484; 85025; 93010; J2405; J2765; J2930; J3490; J7620

== ENCOUNTER 2019-04-06 07:58 | Observation (INO) | payer OTHER, SELFPAY ==
[2019-04-06] VITALS (56 sets, daily range): BP systolic 131–173; BP diastolic 69–100; PULSE 71–86; RESP 13–77; TEMP 36.6–37.4; O2SAT 87–97
--- NOTE | 2019-04-06 08:07 | W.ED.GENAD ---
Discharge Plan Disposition Patient Disposition: HOME Condition: Stable Discharge Details Chief Complaint: Chest Pain Clinical Impression: Acute exacerbation of chronic obstructive pulmonary disease Primary Care Provider: Chano Neves ED Provider: Kirt Sky Home Meds and New Rx's Prescriptions: No Action acetaminophen [Acetaminophen Extra Strength] 500 MG tablet 1,000 mg PO Q6H PRN RF: 0 amlodipine 10 MG tablet 10 mg PO DAILY RF: 0 aspirin 81 MG tablet,chewable 81 mg PO DAILY RF: 0 Velphoro 500 MG tablet,chewable 1,000 mg PO AC RF: 0 albuterol sulfate [ProAir HFA] 8.5 GM HFA aerosol inhaler 2 puff Inhalation Q4H PRN RF: 0 PROVENTIL HFA 18 GM HFA.AER.AD 2 puff Inhalation BID RF: 0 Spiriva Respimat 4 GM mist 1 puff Inhalation BID RF: 0 minoxidil 2.5 mg tablet 2.5 mg PO DAILY RF: 0 metoprolol succinate 25 mg Tablet Extended Release 24 Hr 25 mg PO BID RF: 0 omeprazole 40 mg Capsule,Delayed Release(Dr/Ec) 40 mg PO BID RF: 0 lisinopril 20 mg Tablet 20 mg PO BID RF: 0 meclizine 12.5 mg Tablet 12.5 mg PO PRN PRNRF: 0 ipratropium-albuterol 0.5 mg-3 mg(2.5 mg base)/3 mL solution for nebulization 3 ml IH Q6H Qty: 90 RF: 0 Velphoro 500 mg Tablet,Chewable 500 mg PO PRN PRNRF: 0 (DME) Aerochamber MV Spacer MISCELLANEOUS RF: 0 Medical Decision Making 53-year-old female with a number of chronic medical problems including COPD, end-stage renal disease, pulmonary hypertension. She was admitted on March 18 in transfer from this ER to [facility], discharged improved but with 7 kg weight gain. She had dialysis yesterday and is returned to 1 kg over dry weight. She states in dialysis she developed a cough with congestion and subsequent production of yellow sputum. She awoke at 6:00 this morning with aching her chest and cough. She will admit to a great deal of anxiety and stress due to both her own chronic medical conditions and the current marital stress of her daughter. This stress has led to some increased use of cigarettes. She arrives anxious, afebrile, pulse 72, blood pressure 166/88, oxygenation 91 to 94% on room air. She is diminished throughout all lung knox. Differential diagnosis includes COPD exacerbation with bronchitis, must exclude ACS, she also is quite anxious and merits treatment for that. IV was placed, EKG obtained, patient given DuoNeb, Solu-Medrol, 0.5 mg Ativan. Patient's past medical history is notable for aortic valve replacement, April 2016.. Records noted of right and left cardiac cath on July 14, 2017 with mild diffuse disease but no obstructive lesions. Records will note severe tricuspid insufficiency (? planned repair with Dr Coburn). Today, chest x-ray with opacities in the bases, likely atelectasis versus pneumonia. Labs: White blood cell count 3.5, hematocrit 36, platelets 102. Sodium 140, potassium 4.1, chloride 98, bicarb 32, BUN 20, creatinine 5.7. Lactate 0.6. Magnesium 1.6, troponin 0.09. Repeat troponin obtained: 0.06 Patient improved with DuoNeb and Ativan. Discussed the patient's presentation and objective data with Dr. Trivedi of [facility] cardiology, who states she feels this is consistent with type II myocardial infarction, for which she does not recommend heparin. She recommends trending of the patient's troponin, aspirin, the patient's pre-standing medications including metoprolol, and treatment of underlying oxygen demand with the patient COPD exacerbation and bronchitis. Case discussed with Dr. Donato. Given patient's clinical improvement, improvement of troponin, she is appropriate for admission for treatment of COPD exacerbation. Lab Data Lab results reviewed: Yes I reviewed the patient's lab results. Labs: Laboratory Results - last 24 hr 04/06/19 04/06/19 08:10 08:10 WBC 3.54 L RBC 3.66 L Hgb 11.3 L Hct 36.1 MCV 98.6 H MCH 30.9 MCHC 31.3 L RDW 15.6 H Plt Count 102 L MPV 12.2 H Immature Gran % 0.3 Neutrophils % 70.6 Lymphocytes % 9.6 Monocytes % 14.7 Eosinophils % 4.2 Basophils % 0.6 Absolute Neutrophils 2.50 Absolute Lymphocytes 0.34 L Absolute Monocytes 0.52 Absolute Eosinophils 0.15 Absolute Basophils 0.02 Sodium 140 Potassium 4.1 Chloride 98 Carbon Dioxide 32.1 H Anion Gap 9.9 BUN 28 H Creatinine 5.74 H* Estimated GFR/1.73 m2 7.66 Glucose 96 Calcium 7.8 L Magnesium 1.6 L Total Bilirubin 1.5 H AST 33 ALT 25 Alkaline Phosphatase 210 H Troponin I 0.09 H* Total Protein 7.0 Albumin 3.6 ECG Data Attestation: I personally reviewed and interpreted this ECG (s) as follows: Interpretation: Normal sinus rhythm, rate of 71, the QRS is widened with a right bundle branch block pattern. There are repolarization changes throughout the precordium. It is not significantly changed versus March 18, 2019, also similar to May 17, 2018 HPI General Mode of arrival: ambulatory. Date/Time Provider Initiated Documentation: 04/06/19 07:59. Limitations to Documentation: no limitations. Information obtained by: patient. History of Present Illness 53 year old F presents to the emergency department with the chief complaint of Cough x2 days, described as moderate, Quality is described as dull and constant, and is localized to the chest. Patient reports no radiation. Patient started experiencing this day(s) and it has been constant. No relieving factors improve symptom(s), No exacerbating factors reported . Patient notes cough and other (Sputum production, anxious); denies shortness of breath. Patient did receive the following treatments prior to arrival, other (Inhaler x1 at 6 AM) Related Data Home Medications Medication Instructions Recorded Confirmed Velphoro 1,000 mg PO AC tab.chew 05/24/16 04/06/19 acetaminophen [Acetaminophen Extra 1,000 mg PO Q6H PRN tab-cap 05/24/16 04/06/19 Strength] amlodipine 10 mg PO DAILY tab-cap 05/24/16 04/06/19 aspirin 81 mg PO DAILY tab-cap 05/24/16 04/06/19 Proventil Hfa 2 puff INHALATION BID inhaler 07/26/17 04/06/19 Spiriva Respimat 1 puff INHALATION BID 07/26/17 04/06/19 albuterol sulfate [ProAir HFA] 2 puff INHALATION Q4H PRN inhaler 07/26/17 04/06/19 ipratropium-albuterol 3 ml IH Q6H #90 ml 05/17/18 04/06/19 Velphoro 500 mg PO PRN PRN 01/26/19 04/06/19 inhalational spacing device 01/26/19 03/26/19 [Aerochamber MV] lisinopril 20 mg PO BID 03/18/19 04/06/19 meclizine 12.5 mg PO PRN PRN 03/18/19 04/06/19 metoprolol succinate 25 mg PO BID 03/18/19 04/06/19 omeprazole 40 mg PO BID 03/18/19 04/06/19 minoxidil 2.5 mg tablet 2.5 mg PO DAILY tab 03/26/19 04/06/19 Previous Rx's Medication Instructions Recorded ipratropium-albuterol 3 ml IH Q6H #90 ml 05/17/18 Allergies Allergy/AdvReac Type Severity Reaction Status Date / Time cephalexin monohydrate Allergy Severe trouble Verified 04/06/19 08:11 [From Keflex] breathing colchicine Allergy Unverified 04/06/19 08:11 allopurinol AdvReac Intermediate gout Verified 04/06/19 08:11 breakout erythromycin base AdvReac Intermediate gout Verified 04/06/19 08:11 breakout General AWA: 3 Review of Systems Narrative: A great deal of anxiety and stress due to both her own chronic medical issues as well as marital problems of her daughter. No fever, vomiting, difficulty breathing. She has had sputum production that is yellow. Normal dialysis run yesterday. [facility] Medical History Aortic stenosis (Chronic) COPD (chronic obstructive pulmonary disease) (Chronic) ESRD on dialysis (Chronic) Gallstones (Acute) Shoulder pain, right (Acute) continue with tylenol as needed/warmth call if not getting better Surgical History (Updated 04/06/19 @ 09:27 by Kirt Sky MD) Abdominal hysterectomy (~2006) s/p hyst, but cervix still present and needs yearly PAP due to transplant H/O aortic valve replacement (Acute) Repair of umbilical hernia 1995,1997,2001,2003 TRANSPLANT, KIDNEY (~1997) LEFT Social History Smoking/Tobacco Use Status: Former Tobacco Use Alcohol Intake: former Drug use: Daily Substance use type: marijuana Details: pt states she has not drank etoh in 6 months Do you feel safe at home: Yes Do you feel safe in your relationship?: Yes Exam Narrative Exam Narrative: GEN: awake, alert, oriented 3. Pleasant, well groomed, interactive. HEAD: Normocephalic, atraumatic ENT: Mucous membranes moist, oropharynx unremarkable, External ear exam unremarkable EYES: PERRL, EOMI NECK: Full ROM, no MIK, no menigismus CHEST/RESP: Nontender, diminished bilaterally throughout CARDIOVASCULAR: RRR, subtle systolic murmur, no rub sergio. 2+ Rad pulse bilateral ABDOMEN: Soft, nontender, no mass. +Bowel sounds EXT: Full ROM, trace pretibial edema, no rash. Left upper extremity AV fistula Neuro: Grossly normal neurologic exam, conversant, interactive. Psych: Speech fluent, thoughts congruent, affect anxious
[2019-04-06] MEDS: Albuterol/Ipratropium 3 ML UPD VIAL UPD (08:21)
[2019-04-06] MEDS: methylPREDNISolone SUCC 125 MG VIAL 60 MG IVP (08:24)
[2019-04-06] MEDS: LORazepam 2 MG/ML VIAL 0.5 MG IVP ×2 (08:26→11:37)
[2019-04-06 08:27] LABS: Abs Immature Grans 0.01 k/cumm (0.0-0.09); Absolute Basophil Count 0.02 k/cumm (0.0-0.2); Absolute Eosinophil Count 0.15 k/cumm (0.0-0.7); Absolute Lymphocyte Count 0.34 k/cumm (1.2-3.4); Absolute Monocyte Count 0.52 k/cumm (0.11-0.7); Basophils % 0.6; Eosinophils % 4.2; HCT 36.1 % (36.0-46.0); HGB 11.3 g/dL (12.0-15.5); Immature Grans % 0.3 %; Lymphocytes % 9.6; Mean Corp. HGB Concentration 31.3 g/dL (32.0-36.0); Mean Corpuscular Hemoglobin 30.9 pg (27.0-33.0); Mean Corpuscular Volume 98.6 fL (80-95); Mean Platelet Volume 12.2 fL (8.0-11.0); Monocytes % 14.7; Neutrophils % 70.6; Platelet Count 102 x1000/uL (130-400); RBC 3.66 m/cumm (4.00-5.20); RBC Distribution Width 15.6 % (11.7-14.6); White Blood Cell Count 3.54 k/cumm (4.4-10.8)
[2019-04-06] MEDS: Normal Saline Flush 10 ML SYR IVP (08:30)
[2019-04-06] MEDS: Acetaminophen 325 MG TAB 650 MG PO (08:33)
[2019-04-06 08:43] LABS: ALT 25 U/L (14-59); AST 33 U/L (15-37); Albumin 3.6 g/dL (3.4-5.0); Alkaline Phosphatase 210 U/L (46-116); Anion Gap 9.9 mmol/L (3-11); BUN 28 mg/dL (7-18); Bilirubin, Total 1.5 mg/dL (0.2-1.0); CO2 32.1 mmol/L (21.0-32.0); Calcium 7.8 mg/dL (8.5-10.1); Chloride 98 mmol/L (98-107); Estimated GFR 7.66 (mL/min/1.73m2); Glucose 96 mg/dL (74-106); Magnesium 1.6 mg/dL (1.8-2.4); Potassium 4.1 mmol/L (3.5-5.1); Sodium 140 mmol/L (136-145)
--- NOTE | 2019-04-06 08:45 | DI.RAD_ITS ---
EXAM: XR CHEST 2V PA LATERAL INDICATION: cough/sputum. COMPARISON: XR CHEST 2V PA LATERAL from 03/18/2019 TECHNIQUE: 2D digital imaging was performed. FINDINGS: The heart is again noted to be grossly enlarged. An aortic valve prosthesis and sternal wires are a gain noted. No focal infiltrate, effusion or overt pulmonary edema is seen. There is no evidence of pneumothorax. The spine appears intact. IMPRESSION: Cardiomegaly. No acute abnormality.
--- NOTE | 2019-04-06 08:49 | NUR.NOTE ---
08:49 Critical value Troponin 0.[address] Sky aware.
[2019-04-06 08:50] LABS: CREATININE 5.74 mg/dL (0.55-1.02)
[2019-04-06 08:51] LABS: Troponin I 0.09 ng/Ml (<0.06)
[2019-04-06] MEDS: Albuterol/Ipratropium 3 ML UPD VIAL (08:52)
--- NOTE | 2019-04-06 09:04 | DI.VRAD_ITS ---
PROCEDURE INFORMATION: Exam: XR Chest, 2 Views Exam date and time: 04/06/2019 8:47 AM Age: 53 years old Clinical indication: Prior surgery; Patient HX: Cough, sputum TECHNIQUE: Imaging protocol: XR of the chest Views: 2 views. COMPARISON: CR XR CHEST 2V PA LATERAL 03/18/2019 3:36 PM FINDINGS: Lungs: Mild opacities in the bases may represent atelectasis or pneumonia. Pleural space: Unremarkable. No pleural effusion. No pneumothorax. Heart/Mediastinum: Status post cardiac valve replacement Stable cardiomegaly Bones/joints: Median sternotomy IMPRESSION: Mild opacities in the bases may represent atelectasis or pneumonia. Dictated and Authenticated by: Yao Lanier MD. Ordering:IMELDA Moralez MD
[2019-04-06 09:07] LABS: Lactate 0.6 mmol/L (0.6-1.4)
[2019-04-06] MEDS: Aspirin 81 MG CHEW 162 MG PO (09:11)
[2019-04-06 11:19] LABS: Troponin I 0.06 ng/Ml (<0.06)
[2019-04-06] MEDS: Azithromycin 250 MG TAB 500 MG PO (11:29)
--- NOTE | 2019-04-06 13:50 | W.PM.HP.N ---
Date of service: 04/06/19 Time of Service: 13:50 Assessment and Plan Assessment and plan (1) Acute exacerbation of chronic obstructive pulmonary disease (COPD): Status: Acute Assessment and plan: In order to avoid IV fluid overload in this patient who has end-stage renal disease requiring hemodialysis I am going to treat her COPD exacerbation with oral prednisone rather than continued doses of IV Solu-Medrol. Of note she did receive a dose of Solu-Medrol in the emergency department. I would continue to treat her with DuoNeb treatments every 6 hours as needed for acute wheezing or dyspnea. I will treat her anxiety with alprazolam as needed. She will receive azithromycin for her acute bronchitis and will attempt to obtain a sputum culture. She will be placed on Mucinex to help mobilize her sputum and given an Acapella device. She will continue on her Spiriva. For her blood pressure she will continue her minoxidil and lisinopril. She will be kept on a baby aspirin daily. Her troponins will be trended overnight and as long as they continue to decline to within normal limits we will plan for discharge tomorrow and she can have a follow-up outpatient stress test (2) Acute bronchitis: Status: Acute Assessment and plan: As above Qualifiers: Bronchitis organism: unspecified organism Qualified Code(s): J20.9 - Acute bronchitis, unspecified (3) ESRD on dialysis: Status: Chronic Assessment and plan: Continue current hemodialysis regimen every Monday and Monday. If the patient requires hospitalization beyond tomorrow she will need to be transferred to a tertiary care center that can handle her dialysis needs. (4) Elevated troponin I level: Status: Acute Assessment and plan: We will trend her troponin levels and as long as they are normal she will be discharged home tomorrow with a follow-up stress MPI next week. Otherwise she will stay on a baby aspirin daily. We will get a lipid profile in the morning to assess her need for statin therapy History of Present Illness History of Present Illness Chief Complaint: Chest pain, dyspnea Narrative: 53-year-old female with a history of COPD, end-stage renal disease requiring hemodialysis every Monday and Monday, pulmonary pretension. She was recently hospitalized in [facility] from March 18 until recently discharged in improved condition after treatment of COPD exacerbation. She had about a 7 kg weight gain over that hospitalization. However she completed dialysis yesterday and is down to just 1 kg over her dry weight. She states that she she awoke this morning with aching chest and coughing and dyspnea. She is also under increased anxiety and stress due to not only her own chronic medical conditions but also recent marital distress between her daughter and son-in-law. Evaluation emergency room revealed a normal white cell count 3500. She has a stable chronic anemia with hematocrit 36% stable thrombocytopenia 102,000. BUN and creatinine are elevated at 20 and 5.7 with a normal potassium of 4.1. Blood lactate level is 0.6. Initial troponin 0 0.09 and a repeat level is 0.06. ECG was performed and demonstrated sinus rhythm with right bundle branch block. There is some baseline artifact in V leads V5 and V6 but otherwise her ECG is unchanged from prior ECGs. She has concordant T wave changes consistent with right bundle branch block. Dr. Kitr Sky, emergency room attending, discussed her case with Dr. Corbin, freezing room worker of [facility] who felt that her presentation was consistent with a type II myocardial infarction due to increased stress from her COPD exacerbation and anxiety. She recommended trending of her troponin treating her with aspirin admitting her oxygen demands with supplemental oxygen and treat her acute purulent bronchitis. She did not feel it warranted heparin. If the troponins rise and reached a level of significance then further consideration for acute transfer would be given. [facility] Medical History Aortic stenosis (Chronic) COPD (chronic obstructive pulmonary disease) (Chronic) ESRD on dialysis (Chronic) Gallstones (Acute) Shoulder pain, right (Acute) continue with tylenol as needed/warmth call if not getting better Surgical History Abdominal hysterectomy (~2006) s/p hyst, but cervix still present and needs yearly PAP due to transplant H/O aortic valve replacement (Acute) Repair of umbilical hernia 1995,1997,2001,2003 TRANSPLANT, KIDNEY (~1997) LEFT Family History Mother Essential hypertension Personal history of malignant neoplasm KIDNEY Heart disease Pulmonary emphysema Father Personal history of malignant neoplasm Pulmonary emphysema Brother Hyperlipidemia Brother Hyperlipidemia Brother No problems noted. Social History Smoking/Tobacco Use Status: Former Tobacco Use Alcohol Intake: former Drug use: Daily Substance use type: marijuana Details: pt states she has not drank etoh in 6 months Do you feel safe at home: Yes Do you feel safe in your relationship?: Yes Meds Home Medications and Allergies Home Medications Medication Instructions Recorded Confirmed Type Velphoro 1,000 mg PO AC tab.chew 05/24/16 04/06/19 History acetaminophen [Acetaminophen Extra 1,000 mg PO Q6H PRN tab-cap 05/24/16 04/06/19 History Strength] amlodipine 10 mg PO DAILY tab-cap 05/24/16 04/06/19 History aspirin 81 mg PO DAILY tab-cap 05/24/16 04/06/19 History Proventil Hfa 2 puff INHALATION BID inhaler 07/26/17 04/06/19 History Spiriva Respimat 1 puff INHALATION BID 07/26/17 04/06/19 History albuterol sulfate [ProAir HFA] 2 puff INHALATION Q4H PRN inhaler 07/26/17 04/06/19 History ipratropium-albuterol 3 ml IH Q6H #90 ml 05/17/18 04/06/19 Rx Velphoro 500 mg PO PRN PRN 01/26/19 04/06/19 History inhalational spacing device 01/26/19 03/26/19 History [Aerochamber MV] lisinopril 20 mg PO BID 03/18/19 04/06/19 History meclizine 12.5 mg PO PRN PRN 03/18/19 04/06/19 History metoprolol succinate 25 mg PO BID 03/18/19 04/06/19 History omeprazole 40 mg PO BID 03/18/19 04/06/19 History minoxidil 2.5 mg tablet 2.5 mg PO DAILY tab 03/26/19 04/06/19 History Allergies Allergy/AdvReac Type Severity Reaction Status Date / Time cephalexin monohydrate Allergy Severe trouble Verified 04/06/19 08:11 [From Keflex] breathing colchicine Allergy Unverified 04/06/19 08:11 allopurinol AdvReac Intermediate gout Verified 04/06/19 08:11 breakout erythromycin base AdvReac Intermediate gout Verified 04/06/19 08:11 breakout Exam Narrative Exam Narrative: Middle-aged female sitting up in bed alert and oriented person place time circumstance mildly dyspneic with moderate conversation. Not using accessory respiratory muscles. Lungs reveal scattered end expiratory wheezes no rhonchi or rales. Heart is regular rate and rhythm without appreciable murmur rub or gallop. Abdomen is obese soft and nontender. Extremities without peripheral cyanosis or edema. Neuro exam is nonfocal no gross motor or sensory deficits appreciated. Results Labs Result diagrams: 04/06/19 08:10 04/06/19 08:10 Labs: Laboratory Results - last 24 hr 04/06/19 04/06/19 04/06/19 08:10 08:10 09:04 WBC 3.54 L RBC 3.66 L Hgb 11.3 L Hct 36.1 MCV 98.6 H MCH 30.9 MCHC 31.3 L RDW 15.6 H Plt Count 102 L MPV 12.2 H Immature Gran % 0.3 Neutrophils % 70.6 Lymphocytes % 9.6 Monocytes % 14.7 Eosinophils % 4.2 Basophils % 0.6 Absolute Neutrophils 2.50 Absolute Lymphocytes 0.34 L Absolute Monocytes 0.52 Absolute Eosinophils 0.15 Absolute Basophils 0.02 Sodium 140 Potassium 4.1 Chloride 98 Carbon Dioxide 32.1 H Anion Gap 9.9 BUN 28 H Creatinine 5.74 H* Estimated GFR/1.73 m2 7.66 Glucose 96 Lactate 0.6 Calcium 7.8 L Magnesium 1.6 L Total Bilirubin 1.5 H AST 33 ALT 25 Alkaline Phosphatase 210 H Troponin I 0.09 H* Total Protein 7.0 Albumin 3.6 04/06/19 11:00 WBC RBC Hgb Hct MCV MCH MCHC RDW Plt Count MPV Immature Gran % Neutrophils % Lymphocytes % Monocytes % Eosinophils % Basophils % Absolute Neutrophils Absolute Lymphocytes Absolute Monocytes Absolute Eosinophils Absolute Basophils Sodium Potassium Chloride Carbon Dioxide Anion Gap BUN Creatinine Estimated GFR/1.73 m2 Glucose Lactate Calcium Magnesium Total Bilirubin AST ALT Alkaline Phosphatase Troponin I 0.06 Total Protein Albumin Last Vital Signs Temp 36.7 C 04/06/19 12:50 Pulse 79 04/06/19 12:50 Resp 26 H 04/06/19 12:50 BP 154/98 H 04/06/19 12:50 Pulse Ox 94 L 04/06/19 12:50
[2019-04-06] MEDS: Heparin 5,000 UNITS/ML VIAL 5000 UNITS SC (15:04)
[2019-04-06] MEDS: guaiFENesin 600 MG TABCR PO ×2 (15:07→19:53)
[2019-04-06] MEDS: predniSONE 20 MG TAB 60 MG PO (16:38)
[2019-04-06 16:47] LABS: Troponin I < 0.05 ng/Ml (<0.06)
[2019-04-06 17:08] LABS: Procalcitonin 0.9 ng/mL
[2019-04-06] MEDS: Tiotropium Bromide-Respimat 10 PUFF INH IH (19:52)
[2019-04-06] MEDS: Omeprazole 20 MG CAPCR 40 MG PO (19:53)
[2019-04-06] MEDS: ALPRAZolam 0.25 MG TAB PO (19:53)
[2019-04-06] MEDS: Metoprolol CR 25 MG TABCR PO (19:53)
[2019-04-06] MEDS: Lisinopril 20 MG TAB PO (19:53)
[2019-04-07] VITALS (10 sets, daily range): BP systolic 134–185; BP diastolic 82–108; PULSE 72–76; RESP 8–21; TEMP 36.4–36.8; O2SAT 92–98
[2019-04-07] MEDS: Heparin 5,000 UNITS/ML VIAL 5000 UNITS SC (03:05)
[2019-04-07] MEDS: Albuterol/Ipratropium 3 ML UPD VIAL UPD (03:21)
[2019-04-07] MEDS: Albuterol 2.5 MG/3 ML INH SOLN VIAL UPD (07:04)
[2019-04-07 07:13] LABS: Abs Immature Grans 0.02 k/cumm (0.0-0.09); Absolute Lymphocyte Count 0.25 k/cumm (1.2-3.4); Absolute Monocyte Count 0.25 k/cumm (0.11-0.7); Absolute Neutrophil Count 1.88 k/cumm (1.2-6.7); HCT 36.1 % (36.0-46.0); HGB 11.3 g/dL (12.0-15.5); Immature Grans % 0.8 %; Lymphocytes % 10.4; Mean Corp. HGB Concentration 31.3 g/dL (32.0-36.0); Mean Corpuscular Hemoglobin 30.6 pg (27.0-33.0); Mean Corpuscular Volume 97.8 fL (80-95); Mean Platelet Volume 12.8 fL (8.0-11.0); Monocytes % 10.4; Neutrophils % 78.4; Platelet Count 107 x1000/uL (130-400); RBC 3.69 m/cumm (4.00-5.20); RBC Distribution Width 15.3 % (11.7-14.6)
[2019-04-07 07:29] LABS: Anion Gap 14.6 mmol/L (3-11); BUN 53 mg/dL (7-18); CO2 26.4 mmol/L (21.0-32.0); Calcium 7.7 mg/dL (8.5-10.1); Chloride 95 mmol/L (98-107); Estimated GFR 5.28 (mL/min/1.73m2); Glucose 126 mg/dL (74-106); Potassium 5.4 mmol/L (3.5-5.1); Sodium 136 mmol/L (136-145)
[2019-04-07 07:30] LABS: Magnesium 1.6 mg/dL (1.8-2.4)
[2019-04-07 07:35] LABS: CREATININE 7.92 mg/dL (0.55-1.02)
[2019-04-07] MEDS: Tiotropium Bromide-Respimat 10 PUFF INH IH (07:44)
[2019-04-07] MEDS: predniSONE 20 MG TAB 60 MG PO (08:08)
[2019-04-07] MEDS: Lisinopril 20 MG TAB PO (08:08)
[2019-04-07] MEDS: Omeprazole 20 MG CAPCR 40 MG PO (08:08)
[2019-04-07] MEDS: Aspirin 81 MG CHEW PO (08:09)
[2019-04-07] MEDS: Minoxidil 2.5 MG TAB PO (08:09)
[2019-04-07] MEDS: Azithromycin 250 MG TAB PO (08:09)
[2019-04-07] MEDS: amLODIPine 10 MG TAB PO (08:09)
[2019-04-07] MEDS: guaiFENesin 600 MG TABCR PO (08:09)
[2019-04-07] MEDS: ALPRAZolam 0.25 MG TAB PO (08:10)
[2019-04-07] MEDS: Metoprolol CR 25 MG TABCR PO (08:10)
--- NOTE | 2019-04-07 08:19 | PDOC.CMIN ---
- If Service Date Differs Date of service: 04/07/19 Time of Service: 08:19 Care Management Initial Assess REASON FOR HOSPITALIZATION:: Acute exacerbation of COPD PAST MEDICAL HISTORY/PAST SURGICAL HISTORY:: Medical History: Aortic stenosis (Chronic). COPD (chronic obstructive pulmonary disease) (Chronic). ESRD on dialysis (Chronic). Gallstones (Acute). Shoulder pain, right (Acute). continue with tylenol as needed/warmth. call if not getting better. Surgical History: Abdominal hysterectomy (~2006). s/p hyst, but cervix still present and needs yearly PAP due to transplant. H/O aortic valve replacement (Acute). Repair of umbilical hernia. 1995,1997,2001,2003. TRANSPLANT, KIDNEY (~1997). LEFT ADVANCE DIRECTIVES:: On file. Fabio Grider [facility] - . CODE STATUS:: Full Code INSURANCE COVERAGE / FINANCIAL ISSUES:: [employer] (not [employer]) CURRENT HOME/COMMUNITY SERVICES/EQUIPMENT:: on dialysis PRIMARY CARE PHYSICIAN:: Chano Neves POTENTIAL DISCHARGE NEEDS:: Follow up with cardiology, PCP and discharge plan of care PATIENT/FAMILY EDUCATION NEEDS:: Discharge plan, limitations, follow up plan, Ask Me Three
[2019-04-07 10:11] LABS: Hemoglobin A1C 4.7 % (3.8-5.6)
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
[2019-04-07 11:26] LABS: Calculated LDL 73 mg/dL; Cholesterol 160 mg/dL (<200); HDL Cholesterol 58 mg/dL (40-60); Triglyceride 147 mg/dL (<150)
== END 2019-04-07 13:18 | disposition home or self-care (01) ==
LOC: ER 12:23 → MS 13:00
PROVIDERS: Admitting Provider Internal Medicine; Emergency Provider Emergency Medicine; PCP Family Medicine; Visit Provider Internal Medicine
DX: J44.1 Chronic obstructive pulmonary disease with (acute) exacerbation (principal); J44.0 Chronic obstructive pulmonary disease with (acute) lower respiratory infection; J18.9 Pneumonia, unspecified organism; N18.6 End stage renal disease; Z99.2 Dependence on renal dialysis; R79.89 Other specified abnormal findings of blood chemistry; F17.210 Nicotine dependence, cigarettes, uncomplicated; F41.8 Other specified anxiety disorders; F43.0 Acute stress reaction
CPT/HCPCS: 36415; 80048; 80053; 80061; 84145; 93005; 94640; 96374; 96375; 96376; 99220; 99238; 99285; 71046; 83036; 83605; 83735; 84484; 85025; 87070; 87205; 93010; 94667; 99217; G0378; J1644; J2060; J2930; J7512; J7613; J7620

== ENCOUNTER 2019-04-15 12:04 | Inpatient (IN) | payer OTHER, SELFPAY ==
[2019-04-15] VITALS (26 sets, daily range): BP systolic 151–184; BP diastolic 73–91; PULSE 70–100; RESP 8–22; TEMP 36.2–37.1; O2SAT 90–97
[2019-04-15] MEDS: Ondansetron 4 MG/2 ML VIAL IVP (13:01)
[2019-04-15] MEDS: Normal Saline Flush 10 ML SYR IVP (13:03)
[2019-04-15 13:10] LABS: Lactate 0.6 mmol/L (0.6-1.4)
--- NOTE | 2019-04-15 13:14 | ED.GENADUL_ITS ---
Discharge Plan Discharge Details Chief Complaint: Dizzy/Sync Primary Care Provider: Chano Neves ED Provider: Ivy Cooper Home Meds and New Rx's Prescriptions: No Action fosinopril 40 mg tablet 20 mg PO BID Qty: 90 RF: 3 acetaminophen [Acetaminophen Extra Strength] 500 MG tablet 1,000 mg PO Q6H PRN RF: 0 amlodipine 10 MG tablet 10 mg PO DAILY RF: 0 aspirin 81 MG tablet,chewable 81 mg PO DAILY RF: 0 Velphoro 500 MG tablet,chewable 1,000 mg PO AC RF: 0 albuterol sulfate [ProAir HFA] 8.5 GM HFA aerosol inhaler 2 puff Inhalation Q4H PRN RF: 0 PROVENTIL HFA 18 GM HFA.AER.AD 2 puff Inhalation BID RF: 0 Spiriva Respimat 4 GM mist 1 puff Inhalation BID RF: 0 minoxidil 2.5 mg tablet 2.5 mg PO DAILY RF: 0 metoprolol succinate 25 mg Tablet Extended Release 24 Hr 25 mg PO BID RF: 0 omeprazole 40 mg Capsule,Delayed Release(Dr/Ec) 40 mg PO BID RF: 0 meclizine 12.5 mg Tablet 12.5 mg PO PRN PRNRF: 0 levofloxacin [Levaquin] 500 mg tablet 500 mg PO Q48H Qty: 4 RF: 0 guaifenesin [Mucinex] 600 mg tablet extended release 12hr 600 mg PO BID Qty: 14 RF: 0 alprazolam [Xanax] 0.25 mg tablet 0.25 mg PO BID PRN (Reason: anxiety) Qty: 10 RF: 0 ipratropium-albuterol 0.5 mg-3 mg(2.5 mg base)/3 mL solution for nebulization 3 ml IH Q6H Qty: 90 RF: 0 Velphoro 500 mg Tablet,Chewable 500 mg PO PRN PRNRF: 0 (DME) Aerochamber MV Spacer MISCELLANEOUS RF: 0 Medical Decision Making Earlene Huang is a 53 y/o woman with history of COPD, CHF, end-stage renal disease on dialysis, hypertension presenting to the emergency department with 2 days of increased fatigue, nausea, dyspnea upon exertion. On exam patient is chronically ill but acutely nontoxic appearing. No increased work of breathing but decreased lung sounds bilaterally with prolonged expiratory phase. No lower extremity edema or posterior calf tenderness to palpation. Abdominal exam benign. O2 sat 85 to 86% on room air, improved to 93 to 94% on 4 L nasal cannula. Patient does not have home oxygen and is not prescribed oxygen at this time. Concern for COPD exacerbation, pneumonia, influenza, ACS, other. Doubt CHF given dialysis completed today. Exam/history is not consistent with pulmonary embolism, acute aortic process, sepsis at this time. Plan for DuoNeb, chest x-ray, EKG, screening labs, IV Zofran. Will monitor and reassess. Patient reports nausea resolved after Zofran, feels breathing somewhat improved after DuoNeb. She reports that she still has continued headache, reiterates that this is not the worst headache of her life and feels typical of her usual hypertension of headaches. Plan for morphine. Patient with blood pressure 150/80 at this time. Patient with headache improved. Rechecked oxygen status, patient becomes hypoxic when removed from nasal cannula. Plan for repeat DuoNeb, oral prednisone. Chest x-ray shows no new infiltrate. Labs reviewed, troponin negative, BNP greater than 35,000 as has been at previous visits, no leukocytosis, lactate 0.6. Influenza negative. Plan for admission for COPD exacerbation, hypoxia. Clinical impression: COPD exacerbation, hypoxia Disposition: [facility] inpatient Medical Records Medical records reviewed: Yes I reviewed the patient's medical records. Imaging Data Radiologic Study: Attestation: I personally reviewed and interpreted this imaging study as follows: Radiologist's impression: EXAM: XR CHEST 2V PA LATERAL INDICATION: cough. COMPARISON: XR CHEST 2V PA LATERAL from 04/06/2019 TECHNIQUE: 2D digital imaging was performed. FINDINGS: There is cardiomegaly. There is an aortic valve replacement. The pulmonary vasculature is unremarkable. No focal consolidating infiltrates are seen. No pleural effusion or pneumothorax is present. The lungs appear hyperinflated with flattened diaphragms consistent with COPD. Sternal wires are in place. Mild degenerative changes are seen in the spine. IMPRESSION: 1. Cardiomegaly. 2. COPD. 3. No acute pulmonary process. Lab Data Lab results reviewed: Yes I reviewed the patient's lab results. Labs: 04/15/19 13:05 Nasopharynx Influenza Types A,B Antigen - Final Laboratory Tests Range/Units 02/03/20 02/03/20 02/03/20 12:50 12:50 12:50 WBC (4.4-10.8) k/cumm 5.44 RBC (4.00-5.20) m/cumm 3.70 L Hgb (12.0-15.5) g/dL 11.2 L Hct (36.0-46.0) % 36.1 MCV (80-95) fL 97.6 H MCH (27.0-33.0) pg 30.3 MCHC (32.0-36.0) g/dL 31.0 L RDW (11.7-14.6) % 15.3 H Plt Count (130-400) x1000/uL 124 L MPV (8.0-11.0) fL 12.5 H Immature Gran % % 2.6 Neutrophils % 70.3 Lymphocytes % 11.6 Monocytes % 11.8 Eosinophils % 3.5 Basophils % 0.2 Absolute Neutrophils (1.2-6.7) k/cumm 3.83 Absolute Lymphocytes (1.2-3.4) k/cumm 0.63 L Absolute Monocytes (0.11-0.7) k/cumm 0.64 Absolute Eosinophils (0.0-0.7) k/cumm 0.19 Absolute Basophils (0.0-0.2) k/cumm 0.01 Sodium (136-145) mmol/L 139 Potassium (3.5-5.1) mmol/L 3.7 Chloride (98-107) mmol/L 99 Carbon Dioxide (21.0-32.0) mmol/L 33.4 H Anion Gap (3-11) mmol/L 6.6 BUN (7-18) mg/dL 22 H Creatinine (0.55-1.02) mg/dL 3.23 H Estimated GFR/1.73 m2 (mL/min/1.73m2) 14.88 Glucose (74-106) mg/dL 78 Lactate (0.6-1.4) mmol/L 0.6 Calcium (8.5-10.1) mg/dL 7.9 L Total Bilirubin (0.2-1.0) mg/dL 0.7 AST (15-37) U/L 26 ALT (14-59) U/L 50 Alkaline Phosphatase (46-116) U/L 155 H Troponin I (<0.06) ng/Ml < 0.05 NT-Pro-B Natriuret Pep (<300) pg/mL > 00434 H Total Protein (6.4-8.2) g/dL 6.3 L Albumin (3.4-5.0) g/dL 3.2 L Lipase (73-393) U/L 238 Range/Units 04/15/19 15:33 WBC (4.4-10.8) k/cumm RBC (4.00-5.20) m/cumm Hgb (12.0-15.5) g/dL Hct (36.0-46.0) % MCV (80-95) fL MCH (27.0-33.0) pg MCHC (32.0-36.0) g/dL RDW (11.7-14.6) % Plt Count (130-400) x1000/uL MPV (8.0-11.0) fL Immature Gran % % Neutrophils % Lymphocytes % Monocytes % Eosinophils % Basophils % Absolute Neutrophils (1.2-6.7) k/cumm Absolute Lymphocytes (1.2-3.4) k/cumm Absolute Monocytes (0.11-0.7) k/cumm Absolute Eosinophils (0.0-0.7) k/cumm Absolute Basophils (0.0-0.2) k/cumm Sodium (136-145) mmol/L Potassium (3.5-5.1) mmol/L Chloride (98-107) mmol/L Carbon Dioxide (21.0-32.0) mmol/L Anion Gap (3-11) mmol/L BUN (7-18) mg/dL Creatinine (0.55-1.02) mg/dL Estimated GFR/1.73 m2 (mL/min/1.73m2) Glucose (74-106) mg/dL Lactate (0.6-1.4) mmol/L Calcium (8.5-10.1) mg/dL Total Bilirubin (0.2-1.0) mg/dL AST (15-37) U/L ALT (14-59) U/L Alkaline Phosphatase (46-116) U/L Troponin I (<0.06) ng/Ml < 0.05 NT-Pro-B Natriuret Pep (<300) pg/mL Total Protein (6.4-8.2) g/dL Albumin (3.4-5.0) g/dL Lipase (73-393) U/L ECG Data Attestation: I personally reviewed and interpreted this ECG (s) as follows: Interpretation: EKG shows sinus rhythm at 74, right bundle branch block, normal axis, morphology similar to prior, no STEMI, nondiagnostic EKG HPI General Mode of arrival: ambulatory . Date/Time Provider Initiated Documentation: 04/15/19 12:23 . Limitations to Documentation: no limitations . Information obtained by: patient, RN notes reviewed and old records reviewed . HPI Narrative: Earlene Huang is a 53 y/o woman with a history of end-stage renal disease on dialysis, CHF, COPD, aortic stenosis presenting to the emergency department with nausea, shortness of breath. Patient reports that for the past 2 days she has been sleeping more than usual and feeling increasingly nauseous. Patient reports that she has baseline cough and shortness of breath, although her shortness of breath seems to be increasing significantly. Patient was unable to complete her usual daily activities due to dyspnea upon exertion this morning. She did go to dialysis and received a full session, and then came directly from dialysis to the emergency department. Patient reports that she has had waxing and waning headache since yesterday, feels like prior high blood pressure headache she has had in the past, gradual onset. Not the worst h eadache of her life, not worse in severity than prior headaches. She denies other pain. She denies vomiting, diarrhea, fever, numbness, weakness. Has had decreased appetite over the past few days. No recent travel. Has been receiving her dialysis Monday without missed sessions. Related Data Home Medications Medication Instructions Recorded Confirmed Velphoro 1,000 mg PO AC tab.chew 05/24/16 04/10/19 acetaminophen [Acetaminophen Extra 1,000 mg PO Q6H PRN tab-cap 05/24/16 04/10/19 Strength] amlodipine 10 mg PO DAILY tab-cap 05/24/16 04/10/19 aspirin 81 mg PO DAILY tab-cap 05/24/16 04/10/19 Proventil Hfa 2 puff INHALATION BID inhaler 07/26/17 04/10/19 Spiriva Respimat 1 puff INHALATION BID 07/26/17 04/10/19 albuterol sulfate [ProAir HFA] 2 puff INHALATION Q4H PRN inhaler 07/26/17 04/10/19 ipratropium-albuterol 3 ml IH Q6H #90 ml 05/17/18 04/10/19 Velphoro 500 mg PO PRN PRN 01/26/19 04/10/19 inhalational spacing device 01/26/19 04/10/19 [Aerochamber MV] meclizine 12.5 mg PO PRN PRN 03/18/19 04/10/19 metoprolol succinate 25 mg PO BID 03/18/19 04/10/19 omeprazole 40 mg PO BID 03/18/19 04/10/19 minoxidil 2.5 mg tablet 2.5 mg PO DAILY tab 03/26/19 04/10/19 alprazolam [Xanax] 0.25 mg PO BID PRN #10 tab 04/07/19 04/10/19 guaifenesin [Mucinex] 600 mg PO BID #14 tab 04/07/19 04/10/19 levofloxacin [Levaquin] 500 mg PO Q48H #4 tab 04/07/19 04/10/19 fosinopril 40 mg tablet 20 mg PO BID #90 tab 04/10/19 04/10/19 Previous Rx's Medication Instructions Recorded ipratropium-albuterol 3 ml IH Q6H #90 ml 05/17/18 alprazolam [Xanax] 0.25 mg PO BID PRN #10 tab 04/07/19 guaifenesin [Mucinex] 600 mg PO BID #14 tab 04/07/19 levofloxacin [Levaquin] 500 mg PO Q48H #4 tab 04/07/19 fosinopril 40 mg tablet 20 mg PO BID #90 tab 04/10/19 Allergies Allergy/AdvReac Type Severity Reaction Status Date / Time cephalexin monohydrate Allergy Severe trouble Verified 04/15/19 12:11 [From Keflex] breathing colchicine Allergy Unverified 04/15/19 12:11 allopurinol AdvReac Intermediate gout Verified 04/15/19 12:11 breakout erythromycin base AdvReac Intermediate gout Verified 04/15/19 12:11 breakout General Stated Complaint: Dizzy/Sync AWA: 3 Review of Systems Narrative: Constitutional: denies fevers Eyes: denies eye pain ENT: denies ear pain, dental pain, sore throat Cardiovascular: denies chest pain, edema Respiratory: Reports dyspnea upon exertion, cough increased from baseline GI: denies abdominal pain, vomiting, diarrhea, reports nausea : denies flank pain MSK: denies back pain, neck pain, arthralgias, myalgias Skin: denies rash Neuro: denies numbness, weakness, reports headache PFSH Medical History Aortic stenosis (Chronic) COPD (chronic obstructive pulmonary disease) (Chronic) ESRD on dialysis (Chronic) Gallstones (Acute) Shoulder pain, right (Acute) continue with tylenol as needed/warmth call if not getting better Social History Smoking/Tobacco Use Status: Former Tobacco Use Alcohol Intake: former Drug use: Daily Substance use type: marijuana Details: pt states she has not drank etoh in 6 months Do you feel safe at home: Yes Do you feel safe in your relationship?: Yes Exam Narrative Exam Narrative: Constitutional: Chronically ill-appearing but acutely non-toxic, pleasant, conversing normally HENT: head atraumatic/normocephalic/normal inspection, mucous membranes moist Eyes: conjunctiva normal, sclera normal, pupils 3mm b/l Neck: no stridor, normal ROM, trachea midline Chest: normal inspection Resp: normal work of breathing, decreased breath sounds bilaterally throughout, prolonged expiratory phase Cardio: normal rate, normal rhythm GI: abdomen soft, non-tender, non-distended Back: normal inspection, no rash Skin: warm, dry, normal color, no rash Neuro: alert, not altered, grossly non-focal, normal tone Ext: no edema, no posterior calf tenderness to palpation Psych: normal mood, normal affect, normal behavior Course Vital Signs Vital signs: Vital Signs Temperature 37.1 C 04/15/19 12:09 Pulse 79 04/15/19 12:09 Respiratory Rate 22 04/15/19 12:09 Blood Pressure 182/89 H 04/15/19 12:09 Pulse Oximetry 90 L 04/15/19 12:09 Temperature 37.1 C 04/15/19 12:09 Temperature Source Skin 04/15/19 12:09 Pulse 74 04/15/19 13:01 Pulse 75 04/15/19 13:10 Respiratory Rate 16 04/15/19 13:10 Blood Pressure 172/84 H 04/15/19 13:01 Blood Pressure Mean 105 04/15/19 13:01 Blood Pressure Position Sitting 04/15/19 12:09 Pulse Oximetry 90 L 04/15/19 13:10 Oxygen Delivery Method Room Air 04/15/19 12:09 Oxygen Flow Rate 0 04/15/19 12:09 Pain Level 7 04/15/19 12:09 Lab/Test Results Lab/Test Results: 04/15/19 12:48 Nasopharynx Influenza Types A,B Antigen - Pending Laboratory Tests Range/Units 04/15/19 12:50 Lactate (0.6-1.4) mmol/L 0.6
[2019-04-15 13:17] LABS: Abs Immature Grans 0.14 k/cumm (0.0-0.09); Absolute Basophil Count 0.01 k/cumm (0.0-0.2); Absolute Eosinophil Count 0.19 k/cumm (0.0-0.7); Absolute Lymphocyte Count 0.63 k/cumm (1.2-3.4); Absolute Monocyte Count 0.64 k/cumm (0.11-0.7); Absolute Neutrophil Count 3.83 k/cumm (1.2-6.7); Basophils % 0.2; Eosinophils % 3.5; HCT 36.1 % (36.0-46.0); HGB 11.2 g/dL (12.0-15.5); Immature Grans % 2.6 %; Lymphocytes % 11.6; Mean Corpuscular Hemoglobin 30.3 pg (27.0-33.0); Mean Corpuscular Volume 97.6 fL (80-95); Mean Platelet Volume 12.5 fL (8.0-11.0); Monocytes % 11.8; Neutrophils % 70.3; Platelet Count 124 x1000/uL (130-400); RBC Distribution Width 15.3 % (11.7-14.6); White Blood Cell Count 5.44 k/cumm (4.4-10.8)
[2019-04-15 13:42] LABS: ALT 50 U/L (14-59); AST 26 U/L (15-37); Albumin 3.2 g/dL (3.4-5.0); Alkaline Phosphatase 155 U/L (46-116); Anion Gap 6.6 mmol/L (3-11); BUN 22 mg/dL (7-18); Bilirubin, Total 0.7 mg/dL (0.2-1.0); CO2 33.4 mmol/L (21.0-32.0); CREATININE 3.23 mg/dL (0.55-1.02); Calcium 7.9 mg/dL (8.5-10.1); Chloride 99 mmol/L (98-107); Estimated GFR 14.88 (mL/min/1.73m2); Glucose 78 mg/dL (74-106); Lipase 238 U/L (73-393); Potassium 3.7 mmol/L (3.5-5.1); Sodium 139 mmol/L (136-145); Total Protein 6.3 g/dL (6.4-8.2); Troponin I < 0.05 ng/Ml (<0.06)
[2019-04-15 14:08] LABS: NT-proBNP > 35000 pg/mL (<300)
[2019-04-15 15:54] LABS: Troponin I < 0.05 ng/Ml (<0.06)
[2019-04-15] MEDS: Albuterol/Ipratropium 3 ML UPD VIAL UPD ×3 (16:45→21:33)
[2019-04-15] MEDS: predniSONE 20 MG TAB 60 MG PO (17:50)
--- NOTE | 2019-04-15 18:48 | W.PM.HP.N ---
Date of service: 04/15/19 Time of Service: 18:48 Assessment and Plan Assessment and plan (1) COPD (chronic obstructive pulmonary disease): Status: Chronic Assessment and plan: COPD exacerbation. I don't see clear evidence of infection at this point. Perhaps she just needs slower taper of steroids, and perhaps home oxygen as well. Will continue oral steroids, Duonebs and O2 as is. May complete current course of Levaquin but I am not sure she needs ongoing antibiotics. Reviewed advance directives, requests Full Code, but not the marathon. History of Present Illness History of Present Illness Chief Complaint: SOB Narrative: 53 female with COPD, CRF on HD (last dialysis today)-- recently in with COPD exacerbation, D/C'on 5 dy course Prednison along with Levaquin. Since stopping the Prednisone (2 days ago) she reports increasing SOB. No CP, fever or change in baseline cough. States she has also had non-specific anorexia and malaise. In ER findings of note for O2 sats in 80s, negative CXR, and absence of fever or leukocytosis. EKG shows baseline RBBB, no ischemic changes, and troponin is negative x 2. Received Duonebs and 60 oral prednisone and put on 2 L O2. Says she feels definitely improved. Review of Systems All systems reviewed & are unremarkable except as noted in HPI and below PFSH Medical History Aortic stenosis (Chronic) COPD (chronic obstructive pulmonary disease) (Chronic) ESRD on dialysis (Chronic) Gallstones (Acute) Shoulder pain, right (Acute) continue with tylenol as needed/warmth call if not getting better Surgical History Abdominal hysterectomy (~2006) s/p hyst, but cervix still present and needs yearly PAP due to transplant H/O aortic valve replacement (Acute) Repair of umbilical hernia 1995,1997,2001,2003 TRANSPLANT, KIDNEY (~1997) LEFT Family History Mother Essential hypertension Personal history of malignant neoplasm KIDNEY Heart disease Pulmonary emphysema Father Personal history of malignant neoplasm Pulmonary emphysema Brother Hyperlipidemia Brother Hyperlipidemia Brother No problems noted. Social History Smoking/Tobacco Use Status: Former Tobacco Use Alcohol Intake: former Drug use: Daily Substance use type: marijuana Details: pt states she has not drank etoh in 6 months Do you feel safe at home: Yes Do you feel safe in your relationship?: Yes Meds Home Medications and Allergies Home Medications Medication Instructions Recorded Confirmed Type Velphoro 1,000 mg PO AC tab.chew 05/24/16 04/15/19 History acetaminophen [Acetaminophen Extra 1,000 mg PO Q6H PRN tab-cap 05/24/16 04/15/19 History Strength] amlodipine 10 mg PO DAILY tab-cap 05/24/16 04/15/19 History aspirin 81 mg PO DAILY tab-cap 05/24/16 04/15/19 History Proventil Hfa 2 puff INHALATION BID inhaler 07/26/17 04/15/19 History Spiriva Respimat 1 puff INHALATION BID 07/26/17 04/15/19 History albuterol sulfate [ProAir HFA] 2 puff INHALATION Q4H PRN inhaler 07/26/17 04/15/19 History ipratropium-albuterol 3 ml IH Q6H #90 ml 05/17/18 04/15/19 Rx Velphoro 500 mg PO PRN PRN 01/26/19 04/15/19 History inhalational spacing device 01/26/19 04/10/19 History [Aerochamber MV] meclizine 12.5 mg PO PRN PRN 03/18/19 04/15/19 History metoprolol succinate 25 mg PO BID 03/18/19 04/15/19 History omeprazole 40 mg PO BID 03/18/19 04/15/19 History minoxidil 2.5 mg tablet 2.5 mg PO DAILY tab 03/26/19 04/15/19 History alprazolam [Xanax] 0.25 mg PO BID PRN #10 tab 04/07/19 04/15/19 Rx guaifenesin [Mucinex] 600 mg PO BID #14 tab 04/07/19 04/15/19 Rx levofloxacin [Levaquin] 500 mg PO Q48H #4 tab 04/07/19 04/15/19 Rx fosinopril 40 mg tablet 20 mg PO BID #90 tab 04/10/19 04/15/19 Rx Allergies Allergy/AdvReac Type Severity Reaction Status Date / Time cephalexin monohydrate Allergy Severe trouble Verified 04/15/19 12:11 [From Keflex] breathing colchicine Allergy Unverified 04/15/19 12:11 allopurinol AdvReac Intermediate gout Verified 04/15/19 12:11 breakout erythromycin base AdvReac Intermediate gout Verified 04/15/19 12:11 breakout Exam Narrative Exam Narrative: 172/84, 73, 37.1, 21; HEENT AT/NC, neck supple; l;ungs diminished, diffuse wheeze; heart distant but RRR; abdomen soft and NT; extremities w/o edema, +thrill LUE Results Labs Result diagrams: 04/15/19 12:50 04/15/19 12:50 Labs: Laboratory Results - last 24 hr 04/15/19 04/15/19 04/15/19 12:50 12:50 12:50 WBC 5.44 RBC 3.70 L Hgb 11.2 L Hct 36.1 MCV 97.6 H MCH 30.3 MCHC 31.0 L RDW 15.3 H Plt Count 124 L MPV 12.5 H Immature Gran % 2.6 Neutrophils % 70.3 Lymphocytes % 11.6 Monocytes % 11.8 Eosinophils % 3.5 Basophils % 0.2 Absolute Neutrophils 3.83 Absolute Lymphocytes 0.63 L Absolute Monocytes 0.64 Absolute Eosinophils 0.19 Absolute Basophils 0.01 Sodium 139 Potassium 3.7 Chloride 99 Carbon Dioxide 33.4 H Anion Gap 6.6 BUN 22 H Creatinine 3.23 H Estimated GFR/1.73 m2 14.88 Glucose 78 Lactate 0.6 Calcium 7.9 L Total Bilirubin 0.7 AST 26 ALT 50 Alkaline Phosphatase 155 H Troponin I < 0.05 NT-Pro-B Natriuret Pep > 21868 H Total Protein 6.3 L Albumin 3.2 L Lipase 238 04/15/19 15:33 WBC RBC Hgb Hct MCV MCH MCHC RDW Plt Count MPV Immature Gran % Neutrophils % Lymphocytes % Monocytes % Eosinophils % Basophils % Absolute Neutrophils Absolute Lymphocytes Absolute Monocytes Absolute Eosinophils Absolute Basophils Sodium Potassium Chloride Carbon Dioxide Anion Gap BUN Creatinine Estimated GFR/1.73 m2 Glucose Lactate Calcium Total Bilirubin AST ALT Alkaline Phosphatase Troponin I < 0.05 NT-Pro-B Natriuret Pep Total Protein Albumin Lipase Last Vital Signs Temp 37.1 C 04/15/19 12:09 Pulse 74 04/15/19 13:01 Resp 21 04/15/19 15:20 BP 172/84 H 04/15/19 13:01 Pulse Ox 95 04/15/19 15:20
--- NOTE | 2019-04-15 19:06 | NUR.NOTE ---
Assumed care of pt, report from Ni. Pt had HD today via LAVF, 3.3kg off. Came to ED [facility] dizziness, JIMENEZ. #18 RAC. Reports 8/10 crampy abd pain. Attempted to eat dinner, vomited after eating, undigested food. Plan for adimssion, awaiting bed placement. Pt wearing 2L O2, denies using at home.
--- NOTE | 2019-04-15 19:45 | NUR.NOTE ---
LAVF +bruit, +thrill
--- NOTE | 2019-04-15 20:00 | NUR.NOTE ---
Vomited approx 100mL undigested food/fluid. reports feeling better after vomiting. Reports room spinning dizziness when standing. 1 assist to chair while bedding changed.
[2019-04-15] MEDS: Metoprolol CR 25 MG TABCR PO (21:34)
[2019-04-15] MEDS: levoFLOXacin 500 MG TAB PO (21:34)
[2019-04-16] VITALS (29 sets, daily range): BP systolic 104–212; BP diastolic 74–113; PULSE 71–83; RESP 1–24; TEMP 36.6–37.5; O2SAT 85–100
[2019-04-16] MEDS: Ondansetron 4 MG/2 ML VIAL IVP (01:10)
[2019-04-16] MEDS: Normal Saline Flush 10 ML SYR IVP ×2 (01:10→20:38)
[2019-04-16] MEDS: Albuterol/Ipratropium 3 ML UPD VIAL UPD ×4 (01:58→19:49)
[2019-04-16] MEDS: Acetaminophen 325 MG TAB 650 MG PO ×2 (02:37→14:17)
--- NOTE | 2019-04-16 07:53 | INITIAL_ITS ---
- If Service Date Differs Date of service: 04/16/19 Time of Service: 07:53 Care Management Initial Assess REASON FOR HOSPITALIZATION:: COPD PAST MEDICAL HISTORY/PAST SURGICAL HISTORY:: Medical History . Aortic stenosis (Chronic). COPD (chronic obstructive pulmonary disease) (Chronic). ESRD on dialysis (Chronic). Gallstones (Acute). Shoulder pain, right (Acute). continue with tylenol as needed/warmth. call if not getting better. Surgical History . Abdominal hysterectomy (~2006). s/p hyst, but cervix still present and needs yearly PAP due to transplant. H/O aortic valve replacement (Acute). Repair of umbilical hernia. 1995,1997,2001,2003. TRANSPLANT, KIDNEY (~1997). LEFT PREVIOUS FUNCTIONAL STATUS/SOCIAL/FAMILY SUPPORTS:: Earlene lives alone in her [address] family home in [facility]. She has 7 cats that live with her. Earlene is a , having served in the [employer] for 6 years. 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 Earlene has 2 independent daughters and 2 grandchildren. She describes her family as very close and supportive.Earlene has renal disease and receives dialysis 3 times per week. CURRENT FUNCTIONAL STATUS:: Earlene was sitting up in a chair when CM met with her. She was pleasant and engaged readily in conversation. She shared information about her past and some of the challenges she has had to overcome. She also talked proudly of her daughters whom she has raised to be strong, independent women. ADVANCE DIRECTIVES:: On file Nancy Huang [facility] CODE STATUS:: Full Code INSURANCE COVERAGE / FINANCIAL ISSUES:: [id number] (not 's choice) CURRENT HOME/COMMUNITY SERVICES/EQUIPMENT:: on hemodialysis PRIMARY CARE PHYSICIAN:: Chano Neves POTENTIAL DISCHARGE NEEDS:: Follow up with PCP and discharge plan of care PATIENT/FAMILY EDUCATION NEEDS:: Discharge plan, limitations, follow up plan, Ask Me Three ANTICIPATED BARRIERS TO DISCHARGE:: available bed at a receiving facility that can do dialysis TRANSPORTATION:: via private vehicle with family PLAN:: Earlene is awaiting a bed at a tertiary care facility where dialysis is offered. [facility], [facility] and [facility] in [place] have all been contacted but no bed is currently available. There are concerns about a possible abdominal process and testing that needs to be done in a facility that can perform dialysis immediately afterwards.CM will continue to support patient, family and discharge needs.
[2019-04-16] MEDS: Tiotropium Bromide-Respimat 10 PUFF INH IH ×2 (08:45→19:49)
[2019-04-16] MEDS: amLODIPine 10 MG TAB PO (08:47)
[2019-04-16] MEDS: Metoprolol CR 25 MG TABCR PO ×2 (08:47→19:48)
[2019-04-16] MEDS: Minoxidil 2.5 MG TAB PO (08:47)
[2019-04-16] MEDS: Aspirin 81 MG CHEW PO (08:47)
[2019-04-16] MEDS: Omeprazole 20 MG CAPCR 40 MG PO ×2 (08:47→19:49)
[2019-04-16] MEDS: predniSONE 20 MG TAB 60 MG PO (08:47)
--- NOTE | 2019-04-16 10:42 | W.NUTCONSULT ---
Date of service: 04/16/19 Time of Service: 10:42 Nutritional Consult ASSESSMENT: 53 year old female with COPD. PMH: ESRD on HD (MWF). BMI wnl. Following Renal Diet with excellent intake. Not at nutritional risk at this time. MONITORING AND EVALUATION: po intake, weight, labs Time Spent in Nutritional Counseling and Treatment: 0 time spent face to face
[2019-04-16 15:14] LABS: Absolute Basophil Count 0.01 k/cumm (0.0-0.2); Absolute Lymphocyte Count 0.22 k/cumm (1.2-3.4); Absolute Monocyte Count 0.09 k/cumm (0.11-0.7); Basophils % 0.2; HCT 38.8 % (36.0-46.0); HGB 12.2 g/dL (12.0-15.5); Immature Grans % 2.4 %; Lactate 1.5 mmol/L (0.6-1.4); Lymphocytes % 5.2; Mean Corp. HGB Concentration 31.4 g/dL (32.0-36.0); Mean Corpuscular Hemoglobin 30.9 pg (27.0-33.0); Mean Corpuscular Volume 98.2 fL (80-95); Mean Platelet Volume 11.7 fL (8.0-11.0); Monocytes % 2.1; Neutrophils % 90.1; Platelet Count 154 x1000/uL (130-400); RBC 3.95 m/cumm (4.00-5.20); RBC Distribution Width 15.1 % (11.7-14.6); White Blood Cell Count 4.22 k/cumm (4.4-10.8)
[2019-04-16 15:37] LABS: Anion Gap 10.4 mmol/L (3-11); BUN 49 mg/dL (7-18); CO2 31.6 mmol/L (21.0-32.0); Calcium 7.9 mg/dL (8.5-10.1); Chloride 95 mmol/L (98-107); Estimated GFR 6.01 (mL/min/1.73m2); Glucose 155 mg/dL (74-106); Magnesium 1.8 mg/dL (1.8-2.4); Potassium 5.9 mmol/L (3.5-5.1); Sodium 137 mmol/L (136-145)
[2019-04-16 15:41] LABS: CREATININE 7.09 mg/dL (0.55-1.02)
[2019-04-16] MEDS: Dextrose 50%-Water 25 GM/50 ML SYR IVP ×2 (16:03→20:38)
[2019-04-16] MEDS: Insulin REGULAR-Human 100 UNITS/ML UNIT 10 UNITS IV ×2 (16:03→20:40)
[2019-04-16] MEDS: Dextrose 50%-Water 25 GM/50 ML SYR (16:15)
[2019-04-16 20:04] LABS: Anion Gap 10.7 mmol/L (3-11); BUN 54 mg/dL (7-18); CO2 31.3 mmol/L (21.0-32.0); Chloride 95 mmol/L (98-107); Estimated GFR 5.48 (mL/min/1.73m2); Glucose 171 mg/dL (74-106); Potassium 5.7 mmol/L (3.5-5.1); Sodium 137 mmol/L (136-145)
[2019-04-16 20:10] LABS: CREATININE 7.68 mg/dL (0.55-1.02)
--- NOTE | 2019-04-16 20:32 | DSE_ITS ---
Date of service: 04/16/19 Time of Service: 20:32 DS: Diagnosis Discharge Diagnosis (1) Hyperkalemia: Status: Acute (2) ESRD on dialysis: Status: Chronic (3) Abdominal pain: Status: Acute (4) Acute respiratory failure with hypoxia: Status: Acute (5) Acute exacerbation of chronic obstructive pulmonary disease (COPD): Status: Acute Discharge Plan Disposition Condition: Serious Discharge Details Chief Complaint: Dizzy/Sync Reason For Visit: COPD Admit Date/Time: 04/16/19 20:50 Admit Provider: Tony Miranda Attending Provider: Tony Miranda Primary Care Provider: Chano Neves ED Provider: Ivy [facility] Course Hospital Course: Ms Huang is a 53 year old female with PMHx of ESRD on HD MWF via LUE AVF, as well as aortic stenosis s/p bioprosthetic aortic valve, hypertension, GERD, ongoing tobacco abuse, who was admitted to [facility] hospitalist service on 04/16/2019 after presenting to [facility] ED with shortness of breath following her dialysis treatment, with initial diagnostic impression of COPD exacerbation. She was initiated on scheduled and prn nebs, prednisone, and levofloxacin, but her symptoms did not improve. In fact the patient reports feeling like she is fluid overloaded and needs to have more fluid taken off. She also started to report diffuse abdominal pain, especially worse periumbilically, and had nausea/vomiting. Her physical exam is consistent with rales rather than rhonchi and her abdominal pain is out of proportion to her physical exam, concerning for mesenteric ischemia. Her labs on 04/16/2019 revealed a potassium of 5.9, which after treatment with D50/insulin/veltassa and calcium gluconate (because she had evidence of peaked T waves) only came down to 5.7 (about to be treated with D50/insulin again). The patient will likely need her hemodialysis sooner than tomorrow, and [facility] does not have it available. Additionally, she requires a CTA of her abdomen to ensure that her abdominal pain is not due to meseneric ischemia, which needs to be done at a facility where HD is available. No beds were available at the [place], [facility], or [facility]. The patient was accepted in transfer at the [facility] by Dr Navarro of the hospitalist service, whose assistance is greatly appreciated. The patient is hemodynamically stable for transfer and is agreeable to transfer. Care for patient on the day of her transfer took 180 minutes. Home Meds and New Rx's Prescriptions: No Action fosinopril 40 mg tablet 20 mg PO BID Qty: 90 RF: 3 acetaminophen [Acetaminophen Extra Strength] 500 MG tablet 1,000 mg PO Q6H PRN RF: 0 amlodipine 10 MG tablet 10 mg PO DAILY RF: 0 aspirin 81 MG tablet,chewable 81 mg PO DAILY RF: 0 Velphoro 500 MG tablet,chewable 1,000 mg PO AC RF: 0 albuterol sulfate [ProAir HFA] 8.5 GM HFA aerosol inhaler 2 puff Inhalation Q4H PRN RF: 0 PROVENTIL HFA 18 GM HFA.AER.AD 2 puff Inhalation BID RF: 0 Spiriva Respimat 4 GM mist 1 puff Inhalation BID RF: 0 minoxidil 2.5 mg tablet 2.5 mg PO DAILY RF: 0 metoprolol succinate 25 mg Tablet Extended Release 24 Hr 25 mg PO BID RF: 0 omeprazole 40 mg Capsule,Delayed Release(Dr/Ec) 40 mg PO BID RF: 0 meclizine 12.5 mg Tablet 12.5 mg PO PRN PRNRF: 0 levofloxacin [Levaquin] 500 mg tablet 500 mg PO Q48H Qty: 4 RF: 0 guaifenesin [Mucinex] 600 mg tablet extended release 12hr 600 mg PO BID Qty: 14 RF: 0 alprazolam [Xanax] 0.25 mg tablet 0.25 mg PO BID PRN (Reason: anxiety) Qty: 10 RF: 0 ipratropium-albuterol 0.5 mg-3 mg(2.5 mg base)/3 mL solution for nebulization 3 ml IH Q6H Qty: 90 RF: 0 Velphoro 500 mg Tablet,Chewable 500 mg PO PRN PRNRF: 0 (DME) Aerochamber MV Spacer MISCELLANEOUS RF: 0 Discharge Instructions Activity:: Activity as Tolerated Equipment/Supplies:: No Equipment Needed Diet:: renal clear liquid DS: Summary Status at Discharge Functional status at discharge: independent ambulation Overall status at discharge: patient is not back to baseline Mental Status: mental status grossly normal Speech and Movement: speech and movement normal Mood: congruent mood Affect: normal affect Exam Narrative Exam Narrative: General: very pleasant elderly female, who is not in respiratory distress while seated HEENT: EOMI, MMM Heart: RRR, minimal GENO auscultated Lungs: rales at B bases GI: abdomen is soft, nontender, nondistended Extremities: 1+ BLE edema, no c/c Psych Mental Status: mental status grossly normal Speech and Movement: speech and movement normal Mood: congruent mood Affect: normal affect DS: Data Vitals/I&O Vitals and I&O: Vital Signs Temperature 37.1 C 04/16/19 18:19 Temperature Source Tympanic 04/16/19 18:19 Pulse 75 04/16/19 18:19 Pulse Rhythm Regular 04/16/19 19:41 Pulse 73 04/15/19 15:20 Respiratory Rate 20 04/16/19 18:19 Respiratory Effort Non-Labored 04/16/19 19:41 Respiratory Depth Normal 04/16/19 19:41 Respiratory Pattern Normal 04/16/19 19:41 Blood Pressure 143/79 H 04/16/19 18:19 Blood Pressure Mean 105 04/15/19 13:01 Blood Pressure Position Sitting 04/15/19 12:09 Pulse Oximetry 95 04/16/19 18:19 Oxygen Delivery Method Nasal Cannula 04/16/19 18:19 Oxygen Flow Rate 1 04/16/19 18:19 Pain Level 3 04/16/19 18:19 Comment 04/16/19 18:19 Intake & Output 04/15/19 04/16/19 04/16/19 23:59 11:59 23:59 Intake Total 330 / 570 240 / 570 Output Total 0 / 0 Balance 330 / 570 240 / 570 Weight 61.7 kg Intake: Oral 330 / 570 240 / 570 Output: Urine 0 / 0 Other: Comment PT IS ON DIALYSIS AND DOES NOT VOID. Emesis Description Undigested Food None Data Completed and Pending Completed studies during hospitalization [Text1]: CXR official read: 1. Cardiomegaly. 2. COPD. 3. No acute pulmonary process. Per my read: mild pulmonary edema Labs on day of discharge: Labs from last 24 hours 04/16/19 04/16/19 04/16/19 19:36 15:03 15:03 WBC 4.22 L RBC 3.95 L Hgb 12.2 Hct 38.8 MCV 98.2 H MCH 30.9 MCHC 31.4 L RDW 15.1 H Plt Count 154 MPV 11.7 H Immature Gran % 2.4 Neutrophils % 90.1 Lymphocytes % 5.2 Monocytes % 2.1 Eosinophils % 0.0 Basophils % 0.2 Absolute Neutrophils 3.80 Absolute Lymphocytes 0.22 L Absolute Monocytes 0.09 L Absolute Eosinophils 0.00 Absolute Basophils 0.01 Sodium 137 Potassium 5.7 H Chloride 95 L Carbon Dioxide 31.3 Anion Gap 10.7 BUN 54 H Creatinine 7.68 H* Estimated GFR/1.73 m2 5.48 Glucose 171 H Lactate 1.5 H Calcium 8.0 L Magnesium 04/16/19 15:03 WBC RBC Hgb Hct MCV MCH MCHC RDW Plt Count MPV Immature Gran % Neutrophils % Lymphocytes % Monocytes % Eosinophils % Basophils % Absolute Neutrophils Absolute Lymphocytes Absolute Monocytes Absolute Eosinophils Absolute Basophils Sodium 137 Potassium 5.9 H D Chloride 95 L Carbon Dioxide 31.6 Anion Gap 10.4 BUN 49 H D Creatinine 7.09 H* D Estimated GFR/1.73 m2 6.01 Glucose 155 H D Lactate Calcium 7.9 L Magnesium 1.8 PFSH Medical History Aortic stenosis (Chronic) COPD (chronic obstructive pulmonary disease) (Chronic) ESRD on dialysis (Chronic) Gallstones (Acute) Shoulder pain, right (Acute) continue with tylenol as needed/warmth call if not getting better Surgical History Abdominal hysterectomy (~2006) s/p hyst, but cervix still present and needs yearly PAP due to transplant H/O aortic valve replacement (Acute) Repair of umbilical hernia 1995,1997,2001,2003 TRANSPLANT, KIDNEY (~1997) LEFT Family History Mother Essential hypertension Personal history of malignant neoplasm KIDNEY Heart disease Pulmonary emphysema Father Personal history of malignant neoplasm Pulmonary emphysema Brother Hyperlipidemia Brother Hyperlipidemia Brother No problems noted. Social History Smoking/Tobacco Use Status: Former Tobacco Use Alcohol Intake: former Drug use: Daily Substance use type: marijuana Details: pt states she has not drank etoh in 6 months Do you feel safe at home: Yes Do you feel safe in your relationship?: Yes
[2019-04-16] MEDS: ALPRAZolam 0.25 MG TAB PO (20:57)
--- NOTE | 2019-04-17 00:39 | NUR.NOTE ---
Patient was transferred to [facility] via ambulance services. She felt alert, oriented x 3, but a little anxious about the trip and the present diagnosis. All efforts done to reassure patient. Patient was admitted to [address] [place] [address] Room 51, handover report was given to Lynn at 23:20.
== END 2019-04-16 21:55 | disposition short-term general hospital (02) | DRG 190 ==
LOC: ER 19:23 → MS 20:08
PROVIDERS: Admitting Provider General Practice; Emergency Provider Student in an Organized Health Care Education/Training Program; PCP Family Medicine; Visit Provider Internal Medicine
DX: J44.1 Chronic obstructive pulmonary disease with (acute) exacerbation (principal); N18.6 End stage renal disease; Z94.0 Kidney transplant status; E87.5 Hyperkalemia; R10.9 Unspecified abdominal pain; E87.70 Fluid overload, unspecified; Z99.2 Dependence on renal dialysis
CPT/HCPCS: 36415; 80048; 80053; 83690; 87449; 93005; 94618; 94640; 96374; 96375; 99222; 99239; 99285; 71046; 83605; 83735; 83880; 84484; 85025; 93010; 99219; G0378; J0610; J2405; J7512; J7620

== ENCOUNTER 2019-10-11 12:02 | Emergency (ER) | payer MEDICARE, SELFPAY ==
[2019-10-11 12:11] VITALS: BP 158/84; PULSE 65; RESP 18; TEMP 37.1; O2SAT 91
--- NOTE | 2019-10-11 12:36 | RT.EKG_ITS ---
APPROVED REPORT Exam: Resting ECG Patient Location: E HR:62 bpm ECG Measurements Heart Rate 62 AXIS CA 198 P 17 QRSd 170 QRS 16 QT 525 T 48 QTc 534 <Conclusion> Sinus rhythm...normal P axis, V-rate 60- 99 Right bundle branch block...QRSd>120, terminal axis(90,270) Repol abnrm suggests ischemia, diffuse leads...ST-T neg, ant/lat/inf
--- NOTE | 2019-10-11 12:42 | DI.CT_ITS ---
EXAM: CT ABDOMEN PELVIS WO CLINICAL HISTORY: GI bleed hx diverticulitis. TECHNIQUE: Imaging Protocol: Axial computed tomography images with coronal and sagittal reformatted images were created and reviewed. Oral: Yes COMPARISON: CT CT ABDOMEN PELVIS WO from 03/18/[address] CHEST PE CTA from 03/18/2019 FINDINGS: The heart is enlarged. There is respiratory motion at the lung bases. Small amount of fluid is agai n noted around the liver. Gallstones are seen. The spleen is enlarged. There is body wall edema. Diverticulosis is seen in the descending and sigmoid colon. There is no evidence of diverticulitis. There is no small bowel dilatation. There is small amount of fluid in the low pelvis. The bladder is empty. The aorta is heavily calcified. A 2.6 centimeter aneurysm is seen of the distal aorta. IMPRESSION: Limited exam due to lack of IV contrast and mild patient motion.. There is diverticulosis without ev idence of diverticulitis. There is a mild amount of ascites as well as body wall edema. Cirrhotic l iver and gallstones are noted. RADIATION DOSE DELIVERED: 652.15mGy.cm Total DLP DATA REPOSITORY: All CT scans at this facility are submitted to the National Radiology Data Registry (NRDR) Dose Index Registry (DIR) with the [employer] (ACR). RADIATION OPTIMIZATION: All CT scans at this facility use at least one of these dose optimization te chniques: automated exposure control; mA and/or kV adjustment per patient size (includes targeted exa ms where dose is matched to clinical indication); or iterative reconstruction.
--- NOTE | 2019-10-11 12:45 | W.ED.GENAD ---
Discharge Plan Disposition Patient Disposition: HOME Condition: Stable Discharge Details Chief Complaint: GI Bleed Clinical Impression: GI bleed Primary Care Provider: Chano Neves ED Provider: Lyn Márquez Home Meds and New Rx's Prescriptions: Continued fosinopril 40 mg tablet 20 mg PO BID Qty: 90 RF: 3 amlodipine 10 MG tablet 10 mg PO DAILY RF: 0 aspirin 81 MG tablet,chewable 81 mg PO DAILY RF: 0 Velphoro 500 MG tablet,chewable 1,000 mg PO AC RF: 0 albuterol sulfate [ProAir HFA] 8.5 GM HFA aerosol inhaler 2 puff Inhalation Q4H PRN RF: 0 minoxidil 2.5 mg tablet 2.5 mg PO DAILY RF: 0 metoprolol succinate 25 mg Tablet Extended Release 24 Hr 25 mg PO BID RF: 0 omeprazole 40 mg Capsule,Delayed Release(Dr/Ec) 40 mg PO BID RF: 0 meclizine 12.5 mg Tablet 12.5 mg PO PRN PRNRF: 0 alprazolam [Xanax] 0.25 mg tablet 0.25 mg PO BID PRN (Reason: anxiety) Qty: 10 RF: 0 ipratropium-albuterol 0.5 mg-3 mg(2.5 mg base)/3 mL solution for nebulization 3 ml IH Q6H Qty: 90 RF: 0 Velphoro 500 mg Tablet,Chewable 500 mg PO PRN PRNRF: 0 (DME) Aerochamber MV Spacer MISCELLANEOUS RF: 0 Discharge Instructions Instructions: Gastrointestinal Bleeding (ED) Additional Instructions: Follow up with primary care provider in 3-5 days. Return to ED sooner if any worsening or concerns. Increase oral fluids. Return to the ED for any gush of blood, increased dizziness or lightheadedness or any other symptoms such as you have this morning. Referrals: Rama Camacho MD [ [facility] STAFF PHYSICIAN] - Chano Neves [Primary Care Provider] - Discharge Data Discharge Date/Time-TO BE ENTERED AT DEPARTURE: 10/11/19 17:49 Medical Decision Making 54-year-old female with history of stage V chronic kidney disease reports 3 episodes of bright red rectal bleeding with clots which began this morning. Associated with posterior umbilical abdominal tenderness, queasiness and nausea. Does have a history of diverticulitis. She did have dialysis today. She denies any dizziness, lightheadedness or vomiting. She describes pain as cramping, radiates into her lower back. She has a medical history of aortic stenosis, COPD, end-stage renal dialysis, gallstones shoulder pain surgical history includes abdominal hysterectomy, aortic valve replacement, umbilical hernia. She is a daily smoker. Labs are largely within baseline for patient, hemoglobin is 10.8 hematocrit 33.3 which is stable but slightly lower than her last value, RDW is 15.2%, platelet count is 92 which is down from 154 lab result from April, potassium is 3.3, chloride 97, carbon dioxide 30.0, BUN is 16 creatinine is 2.98 GFR is 16.27, glucose 110 COMPARISON: CT CT ABDOMEN PELVIS WO from 03/18/[address] CHEST PE CTA from 03/18/2019 FINDINGS: The heart is enlarged. There is respiratory motion at the lung bases. Small amount of fluid is again noted around the liver. Gallstones are seen. The spleen is enlarged. There is body wall edema. Diverticulosis is seen in the descending and sigmoid colon. There is no evidence of diverticulitis. There is no small bowel dilatation. There is small amount of fluid in the low pelvis. The bladder is empty. The aorta is heavily calcified. A 2.6 centimeter aneurysm is seen of the distal aorta. IMPRESSION: Limited exam due to lack of IV contrast and mild patient motion.. There is diverticulosis without evidence of diverticulitis. There is a mild amount of ascites as well as body wall edema. Cirrhotic liver and gallstones are noted. 1600: Spoke with Dr. Camacho communications and signals supervisor for surgery, she agrees to consult patient for observation and possible nonemergent endoscopy or colonoscopy. Request hospitalist consultation for admission here. 1618: Spoke with hospitalist Dr. Donato regarding patient he recommends transfer to facility that has dialysis if patient needs fluid resuscitation. Will call [facility], for possible transfer. 1638: [facility] states that a potential option for admission would be at redirected to [facility] in [facility]. Awaiting call back. 1647: Spoke with patient, [facility] and [facility], will consult for bed availability. 1714: Spoke with Dr. Waldemar GAYLE at [facility] discussed at length patient case in details and her recommendations is that patient is stable for follow-up as an outpatient does not require emergent admission or emergent scope at this time. Their facility is also at capacity. Rolando reynaga DC and Follow up with Gen surg for outpatient colonoscopy with patient. Patient verbalizes understanding and is ok with the plan to discharge home. Discussed strict return instructions to return immediately or go straight to [facility] if she has any gush of bright red rectal bleeding or gush of blood or any worsening symptoms dizziness weakness lightheadedness. Patient remained slightly hypertensive but hemodynamically stable throughout stay, was discharged with family. This text was generated using [employer] system, please disregard any oddities of phrase or misspellings. HPI General Date/Time Provider Initiated Documentation: 10/11/19 12:35. Limitations to Documentation: no limitations. Information obtained by: patient. HPI Narrative: 54-year-old female with history of stage V chronic kidney disease reports 3 episodes of bright red rectal bleeding with clots which began this morning. Associated with posterior umbilical abdominal tenderness, queasiness and nausea. Does have a history of diverticulitis. She did have dialysis today. She denies any dizziness, lightheadedness or vomiting. She describes pain as cramping, radiates into her lower back. She has a medical history of aortic stenosis, COPD, end-stage renal dialysis, gallstones shoulder pain surgical history includes abdominal hysterectomy, aortic valve replacement, umbilical hernia. She is a daily smoker. Related Data Home Medications Medication Instructions Recorded Confirmed Velphoro 1,000 mg PO AC tab.chew 05/24/16 10/11/19 amlodipine 10 mg PO DAILY tab-cap 05/24/16 10/11/19 aspirin 81 mg PO DAILY tab-cap 05/24/16 10/11/19 albuterol sulfate [ProAir HFA] 2 puff INHALATION Q4H PRN inhaler 07/26/17 10/11/19 ipratropium-albuterol 3 ml IH Q6H #90 ml 05/17/18 10/11/19 Aerochamber MV 01/26/19 10/11/19 Velphoro 500 mg PO PRN PRN 01/26/19 10/11/19 meclizine 12.5 mg PO PRN PRN 03/18/19 10/11/19 metoprolol succinate 25 mg PO BID 03/18/19 10/11/19 omeprazole 40 mg PO BID 03/18/19 10/11/19 minoxidil 2.5 mg tablet 2.5 mg PO DAILY tab 03/26/19 10/11/19 alprazolam [Xanax] 0.25 mg PO BID PRN #10 tab 04/07/19 10/11/19 fosinopril 40 mg tablet 20 mg PO BID #90 tab 04/10/19 10/11/19 Previous Rx's Medication Instructions Recorded ipratropium-albuterol 3 ml IH Q6H #90 ml 05/17/18 alprazolam [Xanax] 0.25 mg PO BID PRN #10 tab 04/07/19 fosinopril 40 mg tablet 20 mg PO BID #90 tab 04/10/19 Allergies Allergy/AdvReac Type Severity Reaction Status Date / Time cephalexin monohydrate Allergy Severe trouble Verified 10/11/19 12:16 [From Keflex] breathing colchicine Allergy Unverified 10/11/19 12:16 allopurinol AdvReac Intermediate gout Verified 10/11/19 12:16 breakout erythromycin base AdvReac Intermediate gout Verified 10/11/19 12:16 breakout General Stated Complaint: GI Bleed AWA: 2 Review of Systems Narrative: Constitutional: Negative for weight loss, alert and oriented, well groomed, normal body habitus, appears comfortable. HEENT: Denies trauma, headaches, blurry vision, nasal discharge, sore throat, trouble swallowing. Chest: Denies chest pain, palpitations, irregular rhythm, hypertension. Respiratory: Denies Shortness of breath, cough, hemoptysis. GI: Reports generalized Reports bright red rectal bleeding with clots x3 this a.m. : Chronic kidney disease stage V does not make urine. Neuro: Denies dizziness, blurry vision, weakness, syncope, headache or facial numbness. Hematologic: Denies easy bruising, intolerance to heat or cold, hair loss. PENDING SALE TO [facility] Medical History Aortic stenosis (Chronic) COPD (chronic obstructive pulmonary disease) (Chronic) ESRD on dialysis (Chronic) Gallstones (Acute) Shoulder pain, right (Acute) continue with tylenol as needed/warmth call if not getting better Surgical History Abdominal hysterectomy (~2006) s/p hyst, but cervix still present and needs yearly PAP due to transplant H/O aortic valve replacement (Acute) Repair of umbilical hernia 1995,1997,2001,2003 TRANSPLANT, KIDNEY (~1997) LEFT Family History Mother Essential hypertension Personal history of malignant neoplasm KIDNEY Heart disease Pulmonary emphysema Father Personal history of malignant neoplasm Pulmonary emphysema Brother Hyperlipidemia Brother Hyperlipidemia Brother No problems noted. Social History Smoking/Tobacco Use Status: Current-Occasional Tobacco Type: cigarettes Alcohol Intake: former Drug use: Daily Substance use type: marijuana Details: pt states she has not had ETOH x 4 years- edible marijuana Do you feel safe at home: Yes Do you feel safe in your relationship?: Yes Exam Narrative Exam Narrative: Constitutional: Alert and oriented x3. Appears stated age. Normal body habitus. Head: Normocephalic, no trauma. Eyes: Pupils PERRLA, Red reflex noted, EOM's intact. Eyelids symmetrical without lesions, discharge, or swelling. ENT: Bilateral TM's WNL, External ear normal to inspection, no mastoid TTP, swelling, or erythema, Nasal turbinates WNL, no nasal discharge. Normal dentition, Posterior pharynx WNL, no exudate. Chest: RRR, Normal S1, S2, distal pulses intact. Resp: Lungs clear to auscultation bilaterally, no wheezes, rales, or rhonchi. Musculoskeletal: Normal gait, 5/5 strength to all four extremities. Abdomen: maggy-umbilical abdominal tenderness, associated with nausea, cramping type pain, hyperactive bowel sounds all 4 quadrants with auscultation. Skin: Has a dialysis shunt noted to her left forearm. Capillary refill less than 2 sec. Neurologic: Cranial nerves II-XII intact. Alert and oriented x 3. DTR's intact. Hematologic/Lymphatic: No ecchymosis, no lymphadenopathy. Course Vital Signs Vital signs: Vital Signs Temperature 37.1 C 10/11/19 12:11 Pulse 65 10/11/19 12:11 Respiratory Rate 18 10/11/19 12:11 Blood Pressure 158/84 H 10/11/19 12:11 Pulse Oximetry 91 L 10/11/19 12:11 Temperature 37.1 C 10/11/19 12:11 Temperature Source Skin 10/11/19 12:11 Pulse 65 10/11/19 12:11 Respiratory Rate 18 10/11/19 12:11 Respiratory Effort Non-Labored 10/11/19 12:14 Blood Pressure 158/84 H 10/11/19 12:11 Blood Pressure Position Sitting 10/11/19 12:11 Pulse Oximetry 91 L 10/11/19 12:11 Oxygen Delivery Method Room Air 10/11/19 12:11 Oxygen Flow Rate 0 10/11/19 12:11 Pain Level 4 10/11/19 12:11
[2019-10-11 12:52] LABS: Abs Immature Grans 0.02 10^3/uL (0.0-0.06); Absolute Basophil Count 0.04 10^3/uL (0.0-0.2); Absolute Eosinophil Count 0.25 10^3/uL (0.0-0.7); Absolute Lymphocyte Count 0.71 10^3/uL (1.2-3.4); Absolute Monocyte Count 0.46 10^3/uL (0.1-0.8); Absolute Neutrophil Count 2.09 10^3/uL (1.2-6.7); Basophils % 1.1; HCT 33.3 % (36.0-46.0); HGB 10.8 g/dL (11.2-15.7); Immature Grans % 0.6; Lymphocytes % 19.9; MCH 30.6 pg (27.0-33.0); MCHC 32.4 % (32.0-36.0); MCV 94.3 fL (80-95); MPV 13.1 fL (8.0-11.0); Monocytes % 12.9; Neutrophils % 58.5; RBC 3.53 10^6/uL (3.93-5.22); RDW 15.2 % (11.7-14.6); RDW-SD 52.6 fL; WBC 3.57 10^3/uL (4.4-10.8)
[2019-10-11 13:12] LABS: Platelet Count 92 10^3/uL (130-400)
[2019-10-11] MEDS: Ondansetron 4 MG/2 ML VIAL IVP (13:14)
[2019-10-11 13:15] LABS: ALT 25 U/L (14-59); AST 28 U/L (15-37); Albumin 3.9 g/dL (3.4-5.0); Alkaline Phosphatase 211 U/L (46-116); BUN 16 mg/dL (7-18); Bilirubin, Total 0.9 mg/dL (0.2-1.0); CREATININE 2.98 mg/dL (0.55-1.02); Calcium 8.9 mg/dL (8.5-10.1); Chloride 97 mmol/L (98-107); Estimated GFR 16.27 (mL/min/1.73m2); Glucose 110 mg/dL (74-106); Magnesium 1.8 mg/dL (1.8-2.4); Potassium 3.3 mmol/L (3.5-5.1); Sodium 138 mmol/L (136-145); Total Protein 7.3 g/dL (6.4-8.2)
[2019-10-11 13:19] LABS: Troponin I < 0.05 ng/mL (<0.06)
[2019-10-11 14:54] VITALS: BP 138/75; PULSE 61; RESP 18; O2SAT 95
[2019-10-11 16:10] VITALS: BP 125/74; PULSE 77; O2SAT 91
[2019-10-11 17:13] VITALS: BP 120/69; PULSE 70; O2SAT 93
[2019-10-11 17:51] VITALS: BP 160/98; PULSE 71; RESP 18; O2SAT 93
[2019-10-12 11:48] LABS: Campylobacter PCR Negative (Negative); Salmonella PCR Negative (Negative); Shiga Toxin PCR Negative (Negative); Shigella/Enteroinvasive Ecoli Negative (Negative)
== END 2019-10-11 17:49 | disposition home or self-care (01) ==
PROVIDERS: Emergency Provider Registered Nurse Emergency; PCP Family Medicine
DX: K62.5 Hemorrhage of anus and rectum (principal); R10.33 Periumbilical pain; R11.0 Nausea; N18.5 Chronic kidney disease, stage 5; Z99.2 Dependence on renal dialysis; J44.9 Chronic obstructive pulmonary disease, unspecified; F17.210 Nicotine dependence, cigarettes, uncomplicated
CPT/HCPCS: 36415; 80053; 86850; 86900; 86901; 87505; 93005; 96374; 99285; 74176; 82270; 83735; 84484; 85025; 87324; 93010; J2405

== ENCOUNTER → 2019-11-19 11:04 | Outpatient (BNVA) | payer MEDICARE, SELFPAY | PROVIDERS: PCP Family Medicine; Referring Provider Family Medicine; Visit Provider Surgery | DX: R13.10 Dysphagia, unspecified (principal); K62.5 Hemorrhage of anus and rectum; R06.02 Shortness of breath; J44.9 Chronic obstructive pulmonary disease, unspecified; N18.6 End stage renal disease; Z99.2 Dependence on renal dialysis; I25.10 Atherosclerotic heart disease of native coronary artery without angina pectoris; F17.210 Nicotine dependence, cigarettes, uncomplicated | CPT/HCPCS: 99213 ==

== ENCOUNTER 2020-01-09 01:26 | Outpatient (CLI) | payer MEDICARE, SELFPAY ==
--- NOTE | 2020-01-09 06:45 | DI.US_ITS ---
EXAM: US ABDOMEN CLINICAL HISTORY: abdominal distension,H.O CIRRHOSIS,ABNL WT LOSS,R63.4,R14.0 TECHNIQUE: Ultrasound performed using standard protocol. COMPARISON: US Cardiac from 04/28/[address] ABDOMEN PELVIS WO from 10/11/2019 FINDINGS: The hepatic contour is nodular and there is mild hepatomegaly and perihepatic ascites, the findings a re consistent with hepatic cirrhosis. No focal lesion identified. Pancreas poorly visualized. There is cholelithiasis with a mildly thickened gallbladder. There is a negative sonographic Wheeler sign. No biliary dilatation seen. Spleen is at the upper limits of normal in size. Kidneys are nonvisualized, the patient has history of renal atrophy bilaterally. IMPRESSION: Hepato splenomegaly and findings consistent with hepatic cirrhosis, mild ascites. Cholelithiasis noted with a thickened gallbladder wall which is nonspecific. DATA REPOSITORY:
== END 2020-01-09 01:46 ==
PROVIDERS: PCP Family Medicine; Visit Provider Family Medicine
DX: R14.0 Abdominal distension (gaseous) (principal); R63.4 Abnormal weight loss; K76.89 Other specified diseases of liver; K80.20 Calculus of gallbladder without cholecystitis without obstruction
CPT/HCPCS: 76700

== ENCOUNTER 2020-01-23 15:49 | Emergency (ER) | payer MEDICARE, SELFPAY ==
--- NOTE | 2020-01-23 14:05 | DI.CT_ITS ---
EXAM: CT ABDOMEN PELVIS W CLINICAL HISTORY: abdominal pain, bloating and bruising TECHNIQUE: Imaging Protocol: Axial computed tomography images with coronal and sagittal reformatted images were created and reviewed CONTRAST MATERIAL: Intravenous: Omnipaque 350 Contrast volume:80 mL Oral: No COMPARISON: CT CT ABDOMEN PELVIS WO from 10/11/2019 FINDINGS: ABDOMEN: Lung Bases: Cardiomegaly. Liver: The liver has a nodular appearance with an enlarged left lobe suggesting hepatic cirrhosis. N o measurable mass. Portal, Superior Mesenteric, and Splenic Veins: Unremarkable. Gallbladder and Biliary Tract: Cholelithiasis is present. No biliary ductal dilatation. Pancreas: Normal density, no abnormal calcifications or inflammatory process. Spleen: Normal. Adrenals: No masses seen. Kidneys: There is marked bilateral renal atrophy. No radiodense stones or obstructive uropathy. No m asses seen. Abdominal Aorta: Abdominal portion non-dilated. Atherosclerosis. Bowel: No obstruction or bowel wall thickening. Appendix is unremarkable. Colonic diverticulosis but no evidence of acute diverticulitis. Peritoneal Cavity: Moderate amount of abdominal pelvic ascites which has increased since the prior ex amination. Lymph Nodes: Stable nonspecific mildly enlarged lymph nodes in the abdomen and pelvis. Calcific dens ities are adjacent to the left external iliac vessels which may represent calcified lymph nodes. The se are unchanged compared to the prior examination. Bones: Degenerative changes in the spine. Soft Tissues: Moderate diffuse subcutaneous edema suspicious for anasarca. PELVIS: Bladder: Incompletely distended. No gross abnormality. Reproductive Organs: Unremarkable as visualized. Lymph Nodes: Please see above. Bones: Please see above. IMPRESSION: 1. Moderate abdominal pelvic ascites which has increased since the prior examination. 2. Findings suggestive of hepatic cirrhosis 3. Anasarca. 4. Incidental findings in the abdomen and pelvis as described above. RADIATION DOSE DELIVERED: 765.58mGy.cm Total DLP DATA REPOSITORY: All CT scans at this facility are submitted to the National Radiology Data Registry (NRDR) Dose Index Registry (DIR) with the [employer] (A[employer]). RADIATION OPTIMIZATION: All CT scans at this facility use at least one of these dose optimization te chniques: automated exposure control; mA and/or kV adjustment per patient size (includes targeted exa ms where dose is matched to clinical indication); or iterative reconstruction.
--- NOTE | 2020-01-23 15:45 | RT.EKG_ITS ---
APPROVED REPORT Exam: Resting ECG Patient Location: E HR:66 bpm ECG Measurements Heart Rate 66 AXIS NE 82 P 0 QRSd 166 QRS 31 QT 678 T -20 QTc 708 Conclusion Sinus rhythm...normal P axis, V-rate 60- 99 Left atrial enlargement...P, P'>60mS, <-0.15mV V1 Right bundle branch block...QRSd>120, terminal axis(90,270). RBBB. No STEMI. No change from previous EKG. I have reviewed and interpreted ECG and agree with software generated interpretation.
[2020-01-23 15:53] VITALS: BP 111/67; PULSE 68; RESP 20; TEMP 37; O2SAT 97
--- NOTE | 2020-01-23 16:08 | ED.GENADUL_ITS ---
Discharge Plan Disposition Patient Disposition: HOME Condition: Stable Discharge Details Clinical Impression: Abdominal ascites Primary Care Provider: Chano Neves ED Provider: Judy Álvarez Home Meds and New Rx's Prescriptions: Continued fosinopril 40 mg tablet 20 mg PO BID Qty: 90 RF: 3 tramadol 50 mg tablet 50 mg PO .q 6h PRN (Reason: pain) Qty: 12 RF: 0 amoxicillin 500 mg capsule 500 mg PO BID Qty: 20 RF: 0 amlodipine 10 MG tablet 10 mg PO DAILY RF: 0 aspirin 81 MG tablet,chewable 81 mg PO DAILY RF: 0 Velphoro 500 MG tablet,chewable 1,000 mg PO AC RF: 0 albuterol sulfate [ProAir HFA] 8.5 GM HFA aerosol inhaler 2 puff Inhalation Q4H PRN RF: 0 minoxidil 2.5 mg tablet 2.5 mg PO DAILY RF: 0 atorvastatin 40 mg tablet 40 mg PO DAILY RF: 0 carboxymethylcellulose sodium 0.5 % dropperette 1 drp OP BID RF: 0 lisinopril 20 mg tablet 20 mg PO BID RF: 0 metoprolol tartrate 50 mg tablet 50 mg PO BID RF: 0 Lactobacillus acidophilus 100 million cell capsule 100 mmu cells PO TID Qty: 90 RF: 0 minoxidil 2.5 mg tablet 2.5 mg PO BID RF: 0 omeprazole 40 mg Capsule,Delayed Release(Dr/Ec) 40 mg PO BID RF: 0 meclizine 12.5 mg Tablet 12.5 mg PO PRN PRNRF: 0 Velphoro 500 mg Tablet,Chewable 500 mg PO PRN PRNRF: 0 (DME) Aerochamber MV Spacer MISCELLANEOUS RF: 0 Discharge Instructions Instructions: Ascites (ED) Additional Instructions: Presents for her dialysis tomorrow as scheduled as you did receive CT contrast in the emergency department tonight You will need to call surgery for a appointment to evaluate ascites and therapeutic?diagnostic paracentesis and further recommendations you will be given one dose of oral morphine for home use if needed tonight Referrals: Rama Camacho MD [ [facility] STAFF PHYSICIAN] - (Plan for symptomatic morning for an appointment as soon as possible for a diagnostic/therapeutic paracentesis) Discharge Data Discharge Date/Time-TO BE ENTERED AT DEPARTURE: 01/23/20 19:02 Medical Decision Making Patient with history of end-stage renal disease on dialysis history of alcohol abuse with cirrhosis who presented to the emergency department for evaluation of increasing abdominal distention and new bruising. IV established CBC CMP coags sent and reviewed. Her labs are stable. I also obtained a CT of the abdomen and pelvis with IV contrast as she is scheduled for dialysis tomorrow that shows ascites cirrhosis and possible anasarca. She received 2 doses of morphine IV with improvement in her symptoms. She will be discharged home she should attend dialysis tomorrow as she did receive IV contrast. Patient is to follow-up with her outpatient provider and will be referred to GI for therapeutic paracentesis. She has had no fevers and there is no tachycardia or hypotension or paracentesis making SBP less likely but it is certainly a differential. I feel her pain is related to her increasing ascites. she will be referred outpatient surgery for therapeutic/diagnositic paracentesis. Medical Records Medical records reviewed: Yes I reviewed the patient's medical records. Medical records narrative: CT abd/pelvis with contrast: IMPRESSION: 1. Ascites. 2. Concern for possible cirrhosis. 3. Possible anasarca. Lab Data Lab results reviewed: Yes I reviewed the patient's lab results. Lab results narrative: Laboratory Results - last 24 hr 01/23/20 01/23/20 01/23/20 16:08 16:08 16:08 WBC 5.29 RBC 3.43 L Hgb 10.6 L Hct 32.8 L MCV 95.6 H MCH 30.9 MCHC 32.3 RDW 15.9 H Plt Count 97 L MPV 12.1 H Immature Gran % 0.2 Neutrophils % 70.8 Lymphocytes % 12.9 Monocytes % 10.6 Eosinophils % 4.9 Basophils % 0.6 Nucleated RBC % 0 Absolute Neutrophils 3.75 Absolute Lymphocytes 0.68 L Absolute Monocytes 0.56 Absolute Eosinophils 0.26 Absolute Basophils 0.03 RBC Morphology Normal PT 12.7 H INR 1.3 H APTT 25.0 Sodium 138 Potassium 4.1 Chloride 98 Carbon Dioxide 30.5 Anion Gap 9.5 BUN 23 H Creatinine 5.64 H* Estimated GFR/1.73 m2 7.79 Glucose 97 Calcium 8.7 Total Bilirubin 1.1 H AST 33 ALT 21 Alkaline Phosphatase 296 H Total Protein 7.5 Albumin 3.8 HPI General Date/Time Provider Initiated Documentation: 01/23/20 15:50 . Limitations to Documentation: no limitations . Information obtained by: patient . HPI Narrative: presents to the ED for increasing abdominal distention, pain, with new bruising. She states she does not recall any trauma. She has had no fevers. No cough or increased shortness of breath. She states she has shortness of breath at baseline due to her COPD but this is unchanged. She has been receiving her dialysis as scheduled. She has been eating and drinking. She reports her bowels and bladder have been functioning Related Data Home Medications Medication Instructions Recorded Confirmed Velphoro 1,000 mg PO AC tab.chew 05/24/16 01/23/20 amlodipine 10 mg PO DAILY tab-cap 05/24/16 01/23/20 aspirin 81 mg PO DAILY tab-cap 05/24/16 01/23/20 albuterol sulfate [ProAir HFA] 2 puff INHALATION Q4H PRN inhaler 07/26/17 01/23/20 Aerochamber MV 01/26/19 01/23/20 Velphoro 500 mg PO PRN PRN 01/26/19 01/23/20 meclizine 12.5 mg PO PRN PRN 03/18/19 01/23/20 omeprazole 40 mg PO BID 03/18/19 01/23/20 minoxidil 2.5 mg tablet 2.5 mg PO DAILY tab 03/26/19 01/23/20 fosinopril 40 mg tablet 20 mg PO BID #90 tab 04/10/19 01/23/20 atorvastatin 40 mg tablet 40 mg PO DAILY 10/24/19 01/23/20 carboxymethylcellulose sodium 0.5 1 drp OP BID 10/24/19 01/23/20 % eye drops in a dropperette lisinopril 20 mg tablet 20 mg PO BID 10/24/19 01/23/20 metoprolol tartrate 50 mg tablet 50 mg PO BID 10/24/19 01/23/20 tramadol 50 mg tablet 50 mg PO .q 6h PRN #12 tab 11/06/19 01/23/20 Lactobacillus acidophilus 100 100 mmu cells PO TID #90 cap 11/12/19 01/23/20 million cell capsule amoxicillin 500 mg capsule 500 mg PO BID #20 cap 11/14/19 01/23/20 minoxidil 2.5 mg tablet 2.5 mg PO BID 12/09/19 01/23/20 Previous Rx's Medication Instructions Recorded fosinopril 40 mg tablet 20 mg PO BID #90 tab 04/10/19 tramadol 50 mg tablet 50 mg PO .q 6h PRN #12 tab 11/06/19 Lactobacillus acidophilus 100 100 mmu cells PO TID #90 cap 11/12/19 million cell capsule amoxicillin 500 mg capsule 500 mg PO BID #20 cap 11/14/19 Allergies Allergy/AdvReac Type Severity Reaction Status Date / Time cephalexin monohydrate Allergy Severe trouble Verified 01/23/20 15:03 [From Keflex] breathing oxycodone Allergy Unknown Verified 01/23/20 15:59 colchicine Allergy Verified 01/23/20 15:03 allopurinol AdvReac Intermediate gout Verified 01/23/20 15:03 breakout erythromycin base AdvReac Intermediate gout Verified 01/23/20 15:03 breakout General Stated Complaint: GenMedical AWA: 3 Review of Systems Constitutional Constitutional: Denies fever(s) Cardiovascular Cardiovascular: Denies chest pain and Reports dyspnea (At baseline) Respiratory Respiratory: Denies cough, Reports dyspnea (At baseline) and Denies wheezing Gastrointestinal Gastrointestinal: Reports abdominal pain, Denies melena, Reports bloating, Denies change in stool character, Denies constipation, Denies diarrhea and Denies nausea Genitourinary Genitourinary: Denies difficulty voiding, Denies urinary hesitancy and Denies urinary urgency Integumentary/Breasts Skin/Breast: Reports unusual bruising Neurologic Neurologic: Denies confusion Psychiatric Psychiatric: Denies confusion Hematologic/Lymphatic Hematologic/Lymphatic: Reports easy bruising Allergic/Immunologic Allergic/Immunologic: Denies wheezing [facility] Medical History Aortic stenosis Central venous catheter in place [place]10/29/19[place] [facility] [place] [facility] [place]; REMOVE SUTURES ON OR AFTER 05/14/16 CKD (chronic kidney disease) stage 5, GFR less than 15 ml/min COPD (chronic obstructive pulmonary disease) ESRD on dialysis Gallstones Other psychoactive substance abuse, uncomplicated Right heart failure Secondary hyperparathyroidism (of renal origin) Shoulder pain, right continue with tylenol as needed/warmth call if not getting better Tricuspid regurgitation Surgical History Abdominal hysterectomy (~2006) s/p hyst, but cervix still present and needs yearly PAP due to transplant H/O aortic valve replacement Repair of umbilical hernia 1995,1997,2001,2003 TRANSPLANT, KIDNEY (~1997) LEFT Family History Mother Essential hypertension Personal history of malignant neoplasm KIDNEY Heart disease Pulmonary emphysema Father Personal history of malignant neoplasm Pulmonary emphysema Brother Hyperlipidemia Brother Hyperlipidemia Brother No problems noted. Social History Smoking/Tobacco Use Status: Current-Occasional Tobacco Type: cigarettes Smoking risk assessment performed?: Yes Alcohol Intake: former Drug use: Daily Substance use type: marijuana Details: pt states she has not had ETOH x 4 years- edible marijuana Current gender identity: female Do you feel safe at home: Yes Do you feel safe in your relationship?: Yes Exam Const General: cooperative, no acute distress and ill appearing (older appearing than stated age) chronically Nutritional Appearance: average body habitus Orientation: alert, awake and oriented x3 HENMT Head: normal to inspection, normocephalic and atraumatic Eyes Sclera: scleral abnormality bilaterally (icteric) Resp Effort & Inspection: normal respiratory effort Auscultation: diminished lung sounds and wheezes Cardio Rate: regular rate Rhythm: regular rhythm GI Inspection: edema Palpation: ascites Skin General skin exam: ecchymosis (left breast and just below sternum) Course Vital Signs Vital signs: Vital Signs Temperature 37.0 C 01/23/20 15:53 Pulse 68 01/23/20 15:53 Respiratory Rate 01/23/20 15:53 Blood Pressure 111/67 01/23/20 15:53 Pulse Oximetry 97 01/23/20 15:53 Temperature 37.0 C 01/23/20 15:53 Temperature Source Skin 01/23/20 15:53 Pulse 68 01/23/20 15:53 Respiratory Rate 01/23/20 15:53 Respiratory Effort 01/23/20 15:56 Blood Pressure 111/67 01/23/20 15:53 Blood Pressure Position Sitting 01/23/20 15:53 Pulse Oximetry 97 01/23/20 15:53 Oxygen Delivery Method Room Air 01/23/20 15:53 Oxygen Flow Rate 0 01/23/20 15:53 Pain Level 8 01/23/20 15:53
[2020-01-23] MEDS: Ondansetron 4 MG/2 ML VIAL IVP (16:23)
[2020-01-23 16:24] LABS: Abs Immature Grans 0.01 10^3/uL (0.0-0.06); Absolute Basophil Count 0.03 10^3/uL (0.0-0.2); Absolute Eosinophil Count 0.26 10^3/uL (0.0-0.7); Absolute Lymphocyte Count 0.68 10^3/uL (1.2-3.4); Absolute Monocyte Count 0.56 10^3/uL (0.1-0.8); Absolute Neutrophil Count 3.75 10^3/uL (1.2-6.7); Basophils % 0.6; Eosinophils % 4.9; HCT 32.8 % (36.0-46.0); HGB 10.6 g/dL (11.2-15.7); Immature Grans % 0.2; Lymphocytes % 12.9; MCH 30.9 pg (27.0-33.0); MCHC 32.3 % (32.0-36.0); MCV 95.6 fL (80-95); MPV 12.1 fL (8.0-11.0); Monocytes % 10.6; Neutrophils % 70.8; Nucleated RBC 0 %; RBC 3.43 10^6/uL (3.93-5.22); RDW 15.9 % (11.7-14.6); RDW-SD 54.3 fL; WBC 5.29 10^3/uL (4.4-10.8)
[2020-01-23 16:36] LABS: ALT 21 U/L (14-59); AST 33 U/L (15-37); Albumin 3.8 g/dL (3.4-5.0); Alkaline Phosphatase 296 U/L (46-116); Anion Gap 9.5 mmol/L (3-11); BUN 23 mg/dL (7-18); Bilirubin, Total 1.1 mg/dL (0.2-1.0); CO2 30.5 mmol/L (21.0-32.0); Calcium 8.7 mg/dL (8.5-10.1); Chloride 98 mmol/L (98-107); Estimated GFR 7.79 (mL/min/1.73m2); Glucose 97 mg/dL (74-106); Potassium 4.1 mmol/L (3.5-5.1); Sodium 138 mmol/L (136-145); Total Protein 7.5 g/dL (6.4-8.2)
[2020-01-23 16:39] LABS: CREATININE 5.64 mg/dL (0.55-1.02)
[2020-01-23 16:46] LABS: INR 1.3 (0.9-1.1); Prothrombin Time 12.7 sec (9.3-11.0)
[2020-01-23 16:48] LABS: Platelet Count 97 10^3/uL (130-400)
[2020-01-23 16:49] LABS: RBC Morphology Normal
[2020-01-23] MEDS: Normal Saline - Diluent 50 ML VIAL IV (16:59)
[2020-01-23] MEDS: Omnipaque 350 MG/ML 100 ML BTL 80 ML IJ (17:01)
[2020-01-23] MEDS: Albuterol HFA 8 GM 60 PUFF INH IH (17:22)
--- NOTE | 2020-01-23 17:27 | DI.VRAD_ITS ---
PROCEDURE INFORMATION: Exam: CT Abdomen And Pelvis With Contrast Exam date and time: 01/23/2020 4:59 PM Age: 54 years old Clinical indication: Bloating; Abdominal pain; Generalized; Prior surgery; Surgery date: 6+ months; Surgery type: Multiple abdominal surgeries over years. ( hernia, hysterectomy, kidney surgeries unknown kind). TECHNIQUE: Imaging protocol: Computed tomography of the abdomen and pelvis with intravenous contrast. Radiation optimization: All CT scans at this facility use at least one of these dose optimization techniques: automated exposure control; mA and/or kV adjustment per patient size (includes targeted exams where dose is matched to clinical indication); or iterative reconstruction. Contrast material: OMNIPAQUE 350; Contrast volume: 80 ml; Contrast route: INTRAVENOUS (IV); COMPARISON: CT ABDOMEN PELVIS WO 10/11/2019 2:27 PM FINDINGS: Lungs: Minimal right lower lobe atelectasis. Heart: There is marked cardiomegaly, unchanged. Liver: There is some nodular change to the hepatic surface of concern for possible cirrhosis. Gallbladder and bile ducts: Gallstones. There may be mild gallbladder wall thickening, difficult to assess with associated ascites. Overall appearances are not significantly changed. Pancreas: Normal. No ductal dilation. Spleen: Normal. No splenomegaly. Adrenal glands: Normal. No mass. Kidneys and ureters: There is marked bilateral renal atrophy. Stomach and bowel: There is diverticulosis without acute diverticulitis. Appendix: No evidence of appendicitis. Intraperitoneal space: Moderate bilateral upper quadrant and pelvic ascites, markedly increased from prior exam. Retroperitoneal space: There are coarse dystrophic calcifications in the left retroperitoneum, some associated with the external iliac artery again seen. Etiology uncertain. Dystrophic bryant calcifications are a consideration. Vasculature: Severe atherosclerotic change present in the vasculature. Lymph nodes: Unremarkable. No enlarged lymph nodes. Urinary bladder: The bladder is nearly empty. Reproductive: Unremarkable as visualized. Bones/joints: Unremarkable. No acute fracture. Soft tissues: There is fairly significant, diffuse subcutaneous edema increased from prior study. Status post anterior abdominal wall hernia repair. There appears to be a left sided spigelian hernia repair change noted with some persistent fatty herniation and dystrophic calcifications. There is asymmetric atrophy of the left rectus abdominus muscle from the mid level to the pelvis. IMPRESSION: 1. Ascites. 2. Concern for possible cirrhosis. 3. Possible anasarca. Dictated and Authenticated by: Althea Davis MD. Ordering:KAYLA Kim MD
[2020-01-23] MEDS: Ipratropium/Albuterol 4 GM 120 PUFF INH IH (17:38)
[2020-01-23 17:40] VITALS: RESP 22
[2020-01-23 17:45] VITALS: BP 113/66; PULSE 68; RESP 20; O2SAT 96
--- NOTE | 2020-01-23 19:09 | NUR.NOTE ---
Referral faxed to [facility]Nursing Note:
== END 2020-01-23 19:02 | disposition home or self-care (01) ==
PROVIDERS: Emergency Provider Nurse Practitioner Acute Care; PCP Family Medicine
DX: R18.8 Other ascites (principal); N18.6 End stage renal disease; Z99.2 Dependence on renal dialysis; J44.9 Chronic obstructive pulmonary disease, unspecified; F17.210 Nicotine dependence, cigarettes, uncomplicated
CPT/HCPCS: 36415; 80053; 93005; 96374; 96375; 96376; 99285; 74177; 85025; 85610; 85730; 93010; 99284; J2405; J3490

== ENCOUNTER → 2020-01-28 12:49 | Outpatient (BNVA) | payer MEDICARE, SELFPAY | PROVIDERS: PCP Family Medicine; Referring Provider Family Medicine; Visit Provider Surgery | DX: K70.30 Alcoholic cirrhosis of liver without ascites (principal); I07.1 Rheumatic tricuspid insufficiency; J43.9 Emphysema, unspecified; N18.6 End stage renal disease; Z99.2 Dependence on renal dialysis; R10.9 Unspecified abdominal pain; I12.0 Hypertensive chronic kidney disease with stage 5 chronic kidney disease or end stage renal disease; F17.210 Nicotine dependence, cigarettes, uncomplicated | CPT/HCPCS: 99214 ==

== ENCOUNTER 2020-02-11 00:50 | Outpatient (CLI) | payer MEDICARE, SELFPAY ==
--- NOTE | 2020-02-11 12:54 | DI.MAMMO_ITS ---
EXAM: MAMMO SCREENING CLINICAL HISTORY: screening,Z12.39 TECHNIQUE: Mammograms were interpreted according to the usual protocol including computer analysis w [employer] CAD system, tomosynthesis and C-view imaging. COMPARISON: FINDINGS: The breasts heterogeneously dense. There is skin thickening of the breasts, left greater than right, in a diffuse pattern. Patient has a history of hemodialysis and hepatic failure, correlation reques kera regarding extent and chronicity of skin edema. Skin thickening can be an indication of breast ca rcinoma. No mass or clumped microcalcification identified in either breast. Apart from thickening of the skin , there has been no gross interval change in appearance of the breasts in comparison with examination of October 2017. Incidentally noted is a high density artifact in the central posterior portion of the right breast on MLO view only. Repeat spot compression view of this area resolved the artifact and there is no mass or calcification in this area. IMPRESSION: Marked skin thickening, particularly of the left breast. This is a nonspecific finding but may be as sociated with breast carcinoma. Please correlate with the patient's overall status regarding diffuse skin edema. No focal mass or clumped microcalcification is identified to suggest the presence of breast carcinoma . BI-RADS Category 2 - Benign Findings Breast Density - Category C - Heterogeneously dense IC
== END 2020-02-11 01:10 ==
PROVIDERS: PCP Family Medicine; Visit Provider Family Medicine
DX: Z12.31 Encounter for screening mammogram for malignant neoplasm of breast (principal); R92.8 Other abnormal and inconclusive findings on diagnostic imaging of breast
CPT/HCPCS: 77063; 77067

== ENCOUNTER 2020-03-18 18:24 | Outpatient (REF) | payer MEDICARE, SELFPAY ==
[2020-03-18 18:55] LABS: INR 1.8 (0.9-1.1); Prothrombin Time 18.3 sec (9.3-11.0)
== END 2020-03-18 18:44 ==
LOC: LBN 18:24
PROVIDERS: PCP Family Medicine; Visit Provider Nurse Practitioner Primary Care
DX: I25.10 Atherosclerotic heart disease of native coronary artery without angina pectoris (principal); Z95.2 Presence of prosthetic heart valve; Z79.01 Long term (current) use of anticoagulants
CPT/HCPCS: 85610

== ENCOUNTER 2020-05-09 13:21 | Emergency (ER) | payer OTHER, SELFPAY ==
[2020-05-09 13:22] VITALS: BP 135/74; PULSE 97; RESP 20; TEMP 36.8; O2SAT 94
--- NOTE | 2020-05-09 13:41 | W.ED.GENAD ---
Discharge Plan Disposition Patient Disposition: HOME Condition: Stable Discharge Details Clinical Impression: Hemorrhage of arteriovenous fistula Primary Care Provider: Chano Neves ED Provider: Aaron Puente Home Meds and New Rx's Prescriptions: Continued fosinopril 40 mg tablet 20 mg PO BID Qty: 90 RF: 3 warfarin 5 mg tablet 2.5 - 5 mg PO DAILY Qty: 90 RF: 2 ondansetron 4 mg tablet,disintegrating 4 mg PO BID PRN PRN (Reason: nausea and vomiting) Qty: 14 RF: 0 bisacodyl [Dulcolax (bisacodyl)] 5 mg tablet,delayed release (DR/EC) 5 mg PO Q3D PRN (Reason: constipation) Qty: 30 RF: 3 tramadol 50 mg tablet 50 mg PO Q6H PRNRF: 0 aspirin 81 MG tablet,chewable 81 mg PO DAILY RF: 0 Velphoro 500 MG tablet,chewable 1,000 mg PO AC RF: 0 albuterol sulfate [ProAir HFA] 8.5 GM HFA aerosol inhaler 2 puff Inhalation Q4H PRN RF: 0 atorvastatin 40 mg tablet 40 mg PO DAILY RF: 0 carboxymethylcellulose sodium 0.5 % dropperette 1 drp OP BID RF: 0 minoxidil 2.5 mg tablet 2.5 mg PO BID RF: 0 tramadol 50 mg tablet 50 mg PO Q8H PRN (Reason: pain) Qty: 15 RF: 0 omeprazole 40 mg Capsule,Delayed Release(Dr/Ec) 40 mg PO BID RF: 0 meclizine 12.5 mg Tablet 12.5 mg PO PRN PRNRF: 0 Velphoro 500 mg Tablet,Chewable 500 mg PO PRN PRNRF: 0 (DME) Aerochamber MV Spacer MISCELLANEOUS RF: 0 Discharge Instructions Additional Instructions: keep the pressure dressing on for 24 hours if you have recurrent bleeding you are unable to stop with direct pressure return to the emergency department follow up with your primary care provider as scheduled for inr check next week Medical Decision Making 54 yo female with esrd on dialysis mwf, comes in with bleeding from left upper arm av fistula site since needle was removed after dialysis yesterday. She states when she removes pressure it starts bleeding again. She did have her inr checked hesterday and it was 1.1. On exam she is stable in no distress and has no pain or other complaints. When I remove a pressure dressing from her left arm she hasa 0.5cm area that is slowly oozing from the av fistula, no pulsatile bleeding and has pulsations through the av fistula. Suspect bleeding from the av fistula due to the needle stick, given inr checked yesterday do not feel repeat testing today indicated and no signs to suggest anemia. I placed surgicel over the site and placed pressure dressing, will observe. patient continues to have no bleeding and no complaints, will continue to observe pt continues to have no recurrent bleeding, will d/c return precautions given and she is in agreement with d/c and f/u with pcp and understands the return precautions Differential Diagnosis Differential Diagnosis: coagulopathy, bleeding fistula HPI General Mode of arrival: EMS. Date/Time Provider Initiated Documentation: 05/09/20 13:28. Limitations to Documentation: no limitations. Information obtained by: patient. History of Present Illness 54 year old F presents to the emergency department with the chief complaint of bleeding from av fistula, described as mild, Patient started experiencing this day(s) (1) and it has been intermittent. Patient did receive the following treatments prior to arrival, none Related Data Home Medications Medication Instructions Recorded Confirmed Velphoro 1,000 mg PO AC tab.chew 05/24/16 03/31/20 aspirin 81 mg PO DAILY tab-cap 05/24/16 03/31/20 albuterol sulfate [ProAir HFA] 2 puff INHALATION Q4H PRN inhaler 07/26/17 03/31/20 Aerochamber MV 01/26/19 03/31/20 Velphoro 500 mg PO PRN PRN 01/26/19 03/31/20 meclizine 12.5 mg PO PRN PRN 03/18/19 03/31/20 omeprazole 40 mg PO BID 03/18/19 03/31/20 fosinopril 40 mg tablet 20 mg PO BID #90 tab 04/10/19 03/31/20 atorvastatin 40 mg tablet 40 mg PO DAILY 10/24/19 03/31/20 carboxymethylcellulose sodium 0.5 1 drp OP BID 10/24/19 03/31/20 % eye drops in a dropperette minoxidil 2.5 mg tablet 2.5 mg PO BID 12/09/19 03/31/20 bisacodyl 5 mg tablet,delayed 5 mg PO Q3D PRN #30 tab 01/31/20 03/31/20 release ondansetron 4 mg disintegrating 4 mg PO BID PRN PRN #14 tab 01/31/20 03/31/20 tablet tramadol 50 mg tablet 50 mg PO Q6H PRN 03/19/20 03/31/20 tramadol 50 mg tablet 50 mg PO Q8H PRN #15 tab 04/09/20 warfarin 5 mg tablet 2.5 - 5 mg PO DAILY #90 tab 05/05/20 05/05/20 Previous Rx's Medication Instructions Recorded fosinopril 40 mg tablet 20 mg PO BID #90 tab 04/10/19 bisacodyl 5 mg tablet,delayed 5 mg PO Q3D PRN #30 tab 01/31/20 release ondansetron 4 mg disintegrating 4 mg PO BID PRN PRN #14 tab 01/31/20 tablet tramadol 50 mg tablet 50 mg PO Q8H PRN #15 tab 04/09/20 warfarin 5 mg tablet 2.5 - 5 mg PO DAILY #90 tab 05/05/20 Allergies Allergy/AdvReac Type Severity Reaction Status Date / Time cephalexin monohydrate Allergy Severe trouble Verified 05/09/20 13:28 [From Keflex] breathing colchicine Allergy Verified 05/09/20 13:28 allopurinol AdvReac Intermediate gout Verified 05/09/20 13:28 breakout erythromycin base AdvReac Intermediate gout Verified 05/09/20 13:28 breakout oxycodone AdvReac Unknown constipatio Verified 05/09/20 13:28 n General Stated Complaint: GenMedical AWA: 3 Review of Systems All systems reviewed & are unremarkable except as noted in HPI and below Constitutional Constitutional: Denies chills, Denies fever(s) and Denies weakness Cardiovascular Cardiovascular: Denies chest pain and Denies dyspnea Respiratory Respiratory: Denies cough and Denies dyspnea Gastrointestinal Gastrointestinal: Denies abdominal pain, Denies nausea and Denies vomiting Musculoskeletal Musculoskeletal: Denies joint swelling Neurologic Neurologic: Denies weakness [facility] Medical History (Updated 05/09/20 @ 14:15 by Aaron Puente MD) Acute bronchitis Acute respiratory failure with hypoxia Acute right-sided congestive heart failure [facility] [place]-05/12/17 Alcohol abuse Aortic stenosis Axillary lymphadenopathy Bleeding hemorrhoids (01/08/13) rectal bleeding (colonoscopy [facility] [place] 01/01/13 internal hemorrhoids and diverticuli) Cannabis dependence Central venous catheter in place (~10/29/19) [facility] [place] Chest tube in place 05/11/16~ [facility] [place] AV REPLACEMENT TUBE; REMOVE SUTURES ON OR AFTER 05/14/16 CKD (chronic kidney disease) stage 5, GFR less than 15 ml/min Community acquired pneumonia COPD (chronic obstructive pulmonary disease) Critical aortic valve stenosis s/p valve repalcement CVD (cardiovascular disease) Cyst of ovary (08/20/12) Depression (09/14/12) Diverticulitis of large intestine without perforation or abscess with bleeding DNI (do not intubate) DNR (do not resuscitate) ESRD on dialysis Essential hypertension (01/16/13) severe and labile Gallstones Gastroesophageal reflux disease with esophagitis (02/03/15) Hyperkalemia Hyperlipidemia Hyperparathyroidism, unspecified (02/09/11) 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[facility] [place] Left 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 Recurrent urinary tract infection Renal failure 2010 transplant failed, back on dialysis 1997-renal transplant left pelvis; renal insuff. Right foot injury (10/19/16) Right heart failure Secondary hyperparathyroidism (of renal origin) Shoulder pain, right continue with tylenol as needed/warmth call if not getting better Smoker Tinea cruris Tricuspid regurgitation s/p tricuspid valve replacement 02/2020 Umbilical hernia repaired 1995,1997,2001,2003 Upper GI bleed (05/17/14) 05/15/14 [facility] [place] EGD, HH, esophagitis, gastric ulcer and duodenitis Wound infection after surgery Surgical History Abdominal hysterectomy (~2006) s/p hyst, but cervix still present and needs yearly PAP due to transplant H/O aortic valve replacement History of kidney transplant Repair of umbilical hernia 1995,1997,2001,2003 TRANSPLANT, KIDNEY (~1997) LEFT Family History Mother Essential hypertension Personal history of malignant neoplasm KIDNEY Heart disease Pulmonary emphysema Father Personal history of malignant neoplasm Pulmonary emphysema Brother Hyperlipidemia Brother Hyperlipidemia Brother No problems noted. Social History Smoking/Tobacco Use Status: Current-Occasional Tobacco Type: cigarettes Smoking risk assessment performed?: Yes Alcohol Intake: former Drug use: Daily Substance use type: marijuana Details: pt states she has not had ETOH x 4 years- edible marijuana Current gender identity: female Do you feel safe at home: Yes Do you feel safe in your relationship?: Yes Exam Const General: no acute distress Orientation: alert HENMT Head: normal to inspection Ears: external ears normal General nose exam: external nose normal Mouth: moist mucous membranes Eyes General: appearance normal, both eyes and all related structures Neck Neck: normal visual inspection Resp Effort & Inspection: normal respiratory effort and able to speak in complete sentences Cardio Rate: regular rate Skin General skin exam: no rashes or lesions noted Neuro General: patient alert and patient oriented x3 Extrem General: capillary refill normal Psych Mental Status: mental status grossly normal Course Vital Signs Vital signs: Vital Signs Temperature 36.8 C 05/09/20 13:22 Pulse 97 H 05/09/20 13:22 Respiratory Rate 20 05/09/20 13:22 Blood Pressure 135/74 05/09/20 13:22 Pulse Oximetry 94 05/09/20 13:22 Temperature 36.8 C 05/09/20 13:22 Temperature Source Temporal Artery Scan 05/09/20 13:22 Pulse 97 H 05/09/20 13:22 Respiratory Rate 20 05/09/20 13:22 Respiratory Effort 05/09/20 13:29 Blood Pressure 135/74 05/09/20 13:22 Blood Pressure Position Sitting 05/09/20 13:22 Pulse Oximetry 94 05/09/20 13:22 Oxygen Delivery Method Room Air 05/09/20 13:22 Oxygen Flow Rate 0 05/09/20 13:22 Pain Level 0 05/09/20 13:22
[2020-05-09 13:46] VITALS: RESP 16
[2020-05-09] MEDS: Cellulose,Oxidized 2X3 PKT 1 EACH MC (13:50)
[2020-05-09 15:44] VITALS: BP 134/76; PULSE 83; RESP 16; O2SAT 94
== END 2020-05-09 15:16 | disposition home or self-care (01) ==
LOC: ER 14:56
PROVIDERS: Emergency Provider Emergency Medicine; PCP Family Medicine
DX: T82.838A Hemorrhage due to vascular prosthetic devices, implants and grafts, initial encounter (principal); N18.6 End stage renal disease; Z99.2 Dependence on renal dialysis; Z79.01 Long term (current) use of anticoagulants
CPT/HCPCS: 99281

== ENCOUNTER 2020-06-10 10:15 | Outpatient (CLI) | payer MEDICARE, OTHER, SELFPAY ==
[2020-06-10 10:51] LABS: Potassium 4.6 mmol/L (3.5-5.1)
== END 2020-06-10 10:16 | disposition home or self-care (01) ==
LOC: LBO 10:16
PROVIDERS: PCP Family Medicine; Visit Provider Internal Medicine Nephrology
DX: E87.5 Hyperkalemia (principal)
CPT/HCPCS: 36415; 84132

== ENCOUNTER 2020-06-18 21:59 | Emergency (ER) | payer OTHER, SELFPAY ==
[2020-06-18] VITALS (11 sets, daily range): BP systolic 143–179; BP diastolic 87–95; PULSE 83–100; RESP 16–20; TEMP 36.7; O2SAT 83–91
--- NOTE | 2020-06-18 22:16 | NUR.NOTE ---
Nursing Note: Pt reports [place] [facility] [place] Reports it's been painful ever since. Pt reports but today it feels like it is tugging and it started to bleed. Pt reports has not performed dressing change since bleeding start. Denies CP, denies SOB.
--- NOTE | 2020-06-18 22:34 | ED.GENADUL_ITS ---
Discharge Plan Disposition Patient Disposition: HOME Condition: Stable Discharge Details Clinical Impression: Post-op bleeding Primary Care Provider: Chano Neves ED Provider: Karan Barrera Home Meds and New Rx's Prescriptions: Continued ondansetron 4 mg tablet,disintegrating 4 mg PO BID PRN PRN (Reason: nausea and vomiting) Qty: 14 RF: 0 bisacodyl [Dulcolax (bisacodyl)] 5 mg tablet,delayed release (DR/EC) 5 mg PO Q3D PRN (Reason: constipation) Qty: 30 RF: 3 aspirin 81 MG tablet,chewable 81 mg PO DAILY RF: 0 Velphoro 500 MG tablet,chewable 1,000 mg PO AC RF: 0 albuterol sulfate [ProAir HFA] 8.5 GM HFA aerosol inhaler 2 puff Inhalation Q4H PRN RF: 0 atorvastatin 40 mg tablet 40 mg PO DAILY RF: 0 carboxymethylcellulose sodium 0.5 % dropperette 1 drp OP BID RF: 0 minoxidil 2.5 mg tablet 2.5 mg PO BID RF: 0 omeprazole 40 mg Capsule,Delayed Release(Dr/Ec) 40 mg PO BID RF: 0 meclizine 12.5 mg Tablet 12.5 mg PO PRN PRNRF: 0 Velphoro 500 mg Tablet,Chewable 500 mg PO PRN PRNRF: 0 (DME) Aerochamber MV Spacer MISCELLANEOUS RF: 0 Discharge Instructions Additional Instructions: I spoke with Dr. Howard from interventional radiology at [facility] regarding your tunneled dialysis catheter bleeding and presentation. He was able to visualize your imaging during your stay at [facility] and recommended removing your current dressing, applying pressure, and using a Surgicel dressing. We were able to easily control the bleeding. Please watch for new or worsening symptoms and return to the ER for any concerns. Otherwise I recommend following the instructions given to you by the [facility] team upon discharge earlier today. Please have your dialysis tomorrow as already scheduled. Medical Decision Making 54-year-old female discharged from [facility] earlier today after a left upper extremity brachiocephalic fistula ligation and subsequent right sided tunneled dialysis catheter. She had a full dialysis yesterday and is scheduled for dialysis tomorrow. Patient reports that she fell asleep this evening asymptomatic and awoke with her dressing bleeding through. She denies any pain, she is unaware of pulling or tugging at the catheter. She appears well, nontoxic. Blood pressure 143/87. Pulse 83. Case was discussed with Dr. Sky, then a consultation placed with [facility]. I was able to speak with SILVINA Moody, who reports that it is very common for these to bleed. He does not recommend any laboratory values or imaging. He would recommend that we that the patient to 70 degrees, applied direct pressure for approximately 15 minutes, can use a Surgicel dressing, and this will likely control the bleeding. If it does not we could place a couple of pressure sutures. If bleeding is not controlled then we could always transfer down to his facility. I removed the Tegaderm dressing, removed all blood, clots, dried blood. The catheter appears to be in place without complication. There is no active bleeding around the catheter. A Surgicel pressure dressing was placed for approximately 15 minutes. No active bleeding. Hemostasis achieved. A Tegaderm dressing was then applied. Unfortunately we did not have any CHG impregnated Tegaderm, I contacted the house carpenter. She is unable to find any either. Patient is scheduled for dialysis tomorrow and they have been stressing at dialysis. Patient remains hemodynamically stable. She has no additional questions or concerns and is comfortable discharge. Standard return precautions given. Otherwise she will follow the instructions given to her from [facility] today upon discharge. Medical Records Medical records reviewed: Yes I reviewed the patient's medical records. HPI General Mode of arrival: EMS . Date/Time Provider Initiated Documentation: 06/18/20 22:18 . Limitations to Documentation: no limitations . Information obtained by: patient . HPI Narrative: This is a 54-year-old female with past medical history that includes right-sided heart failure, history of alcohol abuse, aortic stenosis, end-stage renal disease dialysis patient, COPD, COPD, depression, DNI, DNR, hypertension, GERD, presenting to the ER today via EMS. She was admitted to [facility] on 06-15 and subsequently discharged on 06-18. She had a left upper extremity brachiocephalic fistula ligation. Subsequent right-sided tunneled dialysis catheter placed. She was discharged from [facility] earlier today and reports that she was feeling well, asymptomatic. She fell asleep this evening, and when she awoke a dressing over the catheter has soaked through. She denies any pain. She denies any other bleeding, hematuria, blood in her stools, black tarry stools. She is not anticoagulated. She states that she has had a catheter placed twice before and never had bleeding like this but she is very concerned. Otherwise has no additional concerns or questions. Patient had full dialysis yesterday. Due for dialysis tomorrow. Related Data Home Medications Medication Instructions Recorded Confirmed Velphoro 1,000 mg PO AC tab.chew 05/24/16 03/31/20 aspirin 81 mg PO DAILY tab-cap 05/24/16 06/18/20 albuterol sulfate [ProAir HFA] 2 puff INHALATION Q4H PRN inhaler 07/26/17 06/18/20 Aerochamber MV 01/26/19 03/31/20 Velphoro 500 mg PO PRN PRN 01/26/19 06/18/20 meclizine 12.5 mg PO PRN PRN 03/18/19 06/18/20 omeprazole 40 mg PO BID 03/18/19 06/18/20 atorvastatin 40 mg tablet 40 mg PO DAILY 10/24/19 06/18/20 carboxymethylcellulose sodium 0.5 1 drp OP BID 10/24/19 06/18/20 % eye drops in a dropperette minoxidil 2.5 mg tablet 2.5 mg PO BID 12/09/19 06/18/20 bisacodyl 5 mg tablet,delayed 5 mg PO Q3D PRN #30 tab 01/31/20 06/18/20 release ondansetron 4 mg disintegrating 4 mg PO BID PRN PRN #14 tab 01/31/20 06/18/20 tablet Previous Rx's Medication Instructions Recorded bisacodyl 5 mg tablet,delayed 5 mg PO Q3D PRN #30 tab 01/31/20 release ondansetron 4 mg disintegrating 4 mg PO BID PRN PRN #14 tab 01/31/20 tablet Allergies Allergy/AdvReac Type Severity Reaction Status Date / Time cephalexin monohydrate Allergy Severe trouble Verified 06/18/20 22:05 [From Keflex] breathing colchicine Allergy Verified 06/18/20 22:05 allopurinol AdvReac Intermediate gout Verified 06/18/20 22:05 breakout erythromycin base AdvReac Intermediate gout Verified 06/18/20 22:05 breakout oxycodone AdvReac Unknown constipatio Verified 06/18/20 22:05 n General Stated Complaint: Vascular AWA: 3 Review of Systems Constitutional Constitutional: Denies fever(s) and Denies headache(s) ENT Ears, Nose, Mouth, and Throat: Denies headache(s) and Denies neck pain Cardiovascular Cardiovascular: Denies chest pain and Denies dyspnea Respiratory Respiratory: Denies dyspnea Gastrointestinal Gastrointestinal: Denies abdominal pain, Denies nausea and Denies vomiting Musculoskeletal Musculoskeletal: Denies back pain and Denies neck pain Integumentary/Breasts Skin/Breast: Denies rash Neurologic Neurologic: Denies headache(s) [facility] Medical History Acute bronchitis Acute respiratory failure with hypoxia Acute right-sided congestive heart failure [facility] [place]-05/12/17 Alcohol abuse Aortic stenosis Axillary lymphadenopathy Bleeding hemorrhoids (01/08/13) rectal bleeding (colonoscopy [facility] [place] 01/01/13 internal hemorrhoids and diverticuli) Cannabis dependence Central venous catheter in place (~10/29/19) [facility] [place] Chest tube in place 05/11/16~ [facility] [place] AV REPLACEMENT TUBE; REMOVE SUTURES ON OR AFTER 05/14/16 CKD (chronic kidney disease) stage 5, GFR less than 15 ml/min Community acquired pneumonia COPD (chronic obstructive pulmonary disease) Critical aortic valve stenosis s/p valve repalcement CVD (cardiovascular disease) Cyst of ovary (08/20/12) Depression (09/14/12) Diverticulitis of large intestine without perforation or abscess with bleeding DNI (do not intubate) DNR (do not resuscitate) ESRD on dialysis Essential hypertension (01/16/13) severe and labile Gallstones Gastroesophageal reflux disease with esophagitis (02/03/15) Hyperkalemia Hyperlipidemia Hyperparathyroidism, unspecified (02/09/11) 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[facility] [place] Left arm cellulitis correction current use of anticoagulant therapy Macular degeneration of left eye (~10/17/19) [facility] [place] Nail dystrophy Other psychoactive substance abuse, uncomplicated Palliative care patient POLST (Physician Orders for Life-Sustaining Treatment) COLST completed 02/13/2020, DNR/DNI. Recurrent urinary tract infection Renal failure 2010 transplant failed, back on dialysis 1997-renal transplant left pelvis; renal insuff. Right foot injury (10/19/16) Right heart failure Secondary hyperparathyroidism (of renal origin) Shoulder pain, right continue with tylenol as needed/warmth call if not getting better Smoker Tinea cruris Tricuspid regurgitation s/p tricuspid valve replacement 02/2020 Umbilical hernia repaired 1995,1997,2001,2003 Upper GI bleed (05/17/14) 05/15/14 [facility] [place] EGD, HH, esophagitis, gastric ulcer and duodenitis Ventral hernia Wound infection after surgery Surgical History Abdominal hysterectomy (~2006) s/p hyst, but cervix still present and needs yearly PAP due to transplant H/O aortic valve replacement History of kidney transplant Repair of umbilical hernia 1995,1997,2001,2003 TRANSPLANT, KIDNEY (~1997) LEFT Family History Mother Essential hypertension Personal history of malignant neoplasm KIDNEY Heart disease Pulmonary emphysema Father Personal history of malignant neoplasm Pulmonary emphysema Brother Hyperlipidemia Brother Hyperlipidemia Brother No problems noted. Social History Smoking/Tobacco Use Status: Current-Occasional Tobacco Type: cigarettes Smoking risk assessment performed?: Yes Alcohol Intake: former Drug use: Daily Substance use type: marijuana Details: pt states she has not had ETOH x 4 years- edible marijuana Current gender identity: female Do you feel safe at home: Yes Do you feel safe in your relationship?: Yes Exam Const General: cooperative, healthy appearing, comfortable and no acute distress Orientation: alert, awake and oriented x3 HENMT Head: normal to inspection, normocephalic and atraumatic Face and sinus: normal facial exam Mouth: moist mucous membranes Eyes General: appearance normal, both eyes and all related structures Conjunctivae: conjunctivae normal Neck Neck: normal visual inspection, trachea midline and supple Chest Other: Right-sided chest, there is a tunneled dialysis catheter in place with a Tegaderm dressing over the catheter. The dressing is filled with blood and there is a small trickle of blood coming from the dressing along the inferior aspect. Clotting is noted. Diffuse mild discomfort. Patient also has an underlying hematoma and ecchymosis surrounding the catheter site. No erythema or warmth. Resp Effort & Inspection: normal respiratory effort and able to speak in complete sentences Auscultation: clear to auscultation bilaterally Cardio Rate: regular rate Rhythm: regular rhythm Heart Sounds: murmur GI Palpation: soft and nontender Back/Spine/Pelvis Back: No back tenderness Skin General skin exam: no rashes or lesions noted Neuro General: patient alert, patient awake, patient oriented x3, moves all ex tremities and no focal motor deficits Cognition: normal cognition Speech: speech normal Gait: normal gait Motor: muscle tone normal throughout Sensory Exam: no sensory deficits noted Psych Appearance: grossly normal Mental Status: mental status grossly normal Course Vital Signs Vital signs: Vital Signs Temperature 36.7 C 06/18/20 22:00 Pulse 83 06/18/20 22:00 Respiratory Rate 16 06/18/20 22:00 Blood Pressure 143/87 H 06/18/20 22:00 Pulse Oximetry 91 L 06/18/20 22:00 Temperature 36.7 C 06/18/20 22:00 Temperature Source Tympanic 06/18/20 22:00 Pulse 83 06/18/20 22:00 Respiratory Rate 16 06/18/20 22:10 Respiratory Effort Non-Labored 06/18/20 22:10 Respiratory Depth Normal 06/18/20 22:10 Respiratory Pattern Normal 06/18/20 22:10 Blood Pressure 143/87 H 06/18/20 22:00 Blood Pressure Position Sitting 06/18/20 22:00 Pulse Oximetry 91 L 06/18/20 22:00 Oxygen Delivery Method Room Air 06/18/20 22:00 Oxygen Flow Rate 0 06/18/20 22:00 Pain Level 7 06/18/20 22:00 Comment 06/18/20 22:00
--- NOTE | 2020-06-18 22:54 | NUR.NOTE ---
Nursing Note: hand off to Soraida ROSENBERG
[2020-06-18] MEDS: Cellulose,Oxidized 2X3 PKT 1 EACH MC (23:01)
--- NOTE | 2020-06-18 23:52 | NUR.NOTE ---
Nursing Note: central line tegaderm applied to pt fistula after provider applied surgicel to site. Tegaderm secured and dated with initials. Bleeding controlled.
== END 2020-06-18 23:59 | disposition home or self-care (01) ==
PROVIDERS: Emergency Provider Physician Assistant; PCP Family Medicine
DX: T82.838A Hemorrhage due to vascular prosthetic devices, implants and grafts, initial encounter (principal)
CPT/HCPCS: 99283

== ENCOUNTER 2020-06-20 00:31 | Emergency (ER) | payer MEDICARE, SELFPAY ==
[2020-06-20] VITALS (18 sets, daily range): BP systolic 159–169; BP diastolic 79–92; PULSE 79–85; RESP 14–24; TEMP 37.2; O2SAT 81–99
--- NOTE | 2020-06-20 00:33 | W.ED.GENAD ---
Discharge Plan Disposition Patient Disposition: HOME Condition: Good Discharge Details Clinical Impression: Post-op bleeding Primary Care Provider: Chano Neves ED Provider: Joe Samson Home Meds and New Rx's Prescriptions: Continued ondansetron 4 mg tablet,disintegrating 4 mg PO BID PRN PRN (Reason: nausea and vomiting) Qty: 14 RF: 0 bisacodyl [Dulcolax (bisacodyl)] 5 mg tablet,delayed release (DR/EC) 5 mg PO Q3D PRN (Reason: constipation) Qty: 30 RF: 3 aspirin 81 MG tablet,chewable 81 mg PO DAILY RF: 0 Velphoro 500 MG tablet,chewable 1,000 mg PO AC RF: 0 albuterol sulfate [ProAir HFA] 8.5 GM HFA aerosol inhaler 2 puff Inhalation Q4H PRN RF: 0 atorvastatin 40 mg tablet 40 mg PO DAILY RF: 0 carboxymethylcellulose sodium 0.5 % dropperette 1 drp OP BID RF: 0 minoxidil 2.5 mg tablet 2.5 mg PO BID RF: 0 omeprazole 40 mg Capsule,Delayed Release(Dr/Ec) 40 mg PO BID RF: 0 meclizine 12.5 mg Tablet 12.5 mg PO PRN PRNRF: 0 Velphoro 500 mg Tablet,Chewable 500 mg PO PRN PRNRF: 0 (DME) Aerochamber MV Spacer MISCELLANEOUS RF: 0 amoxicillin 500 mg Tablet 500 mg PO DAILY RF: 0 oxycodone 5 mg Tablet 5 mg PO Q6H PRNRF: 0 Discharge Instructions Additional Instructions: You can expect continued oozing of blood until hematoma from procedure has resolved. You should not have significant bleeding. But you are likely going to need dressing changes few times a day. If significant heavy bleeding, chest pain, shortness of breath return to ED. Otherwise follow-up with home health care as well as [facility] providers as previously scheduled. Medical Decision Making I do not think this is bleeding per se, this is normal training from the hematoma and bruising involving the subcutaneous tissue especially at the base of the neck. While desaturation or mid to high 80s that is baseline according to patient. She is not having difficulty breathing. There is minimal bleeding once dressing has been removed. With pressure over the swelling along the tunnel, I am able to express blood that I suspect is related to the hematoma. We will give the patient DuoNeb as she has not used her nebulizer. Will obtain chest x-ray to be sure catheter in place with no large pleural effusion. Patient breathing much better after neb treatment. Chest x-ray shows no pneumothorax or large pleural effusion. Catheter in correct position. Discussed with patient and explained likelihood of continued oozing until the hematoma from the procedure has resolved. She is comfortable with dressing changes and seems to have a better understanding of what is going on. HPI General Mode of arrival: EMS. Date/Time Provider Initiated Documentation: 06/20/20 00:33. Limitations to Documentation: no limitations. Information obtained by: patient, RN notes reviewed and old records reviewed. HPI Narrative: Patient presents to the ED by ambulance with recurrent bleeding from recent tunneled catheter placement. Patient seen here last night for same. She has just had dialysis catheter placed by interventional radiology at [facility]. She was seen here last night because of bleeding which was easily controlled with Surgicel and pressure. Subsequently had dialysis today without any issues. Catheter worked fine. Nurse did a dressing change after dialysis. Patient this evening has soaked so that dressing. Called EMS to be brought back here for evaluation. Patient is known to have severe COPD and has saturations that are in the mid to high 80s as her normal. She was placed on oxygen by EMS, but it was more for anxiety. Patient denies feeling any significant change in her breathing. There is been no fever. There is no chest pain. There is pain in the area of the procedure. Related Data Home Medications Medication Instructions Recorded Confirmed Velphoro 1,000 mg PO AC tab.chew 05/24/16 06/20/20 aspirin 81 mg PO DAILY tab-cap 05/24/16 06/20/20 albuterol sulfate [ProAir HFA] 2 puff INHALATION Q4H PRN inhaler 07/26/17 06/20/20 Aerochamber MV 01/26/19 06/20/20 Velphoro 500 mg PO PRN PRN 01/26/19 06/20/20 meclizine 12.5 mg PO PRN PRN 03/18/19 06/20/20 omeprazole 40 mg PO BID 03/18/19 06/20/20 atorvastatin 40 mg tablet 40 mg PO DAILY 10/24/19 06/20/20 carboxymethylcellulose sodium 0.5 1 drp OP BID 10/24/19 06/20/20 % eye drops in a dropperette minoxidil 2.5 mg tablet 2.5 mg PO BID 12/09/19 06/20/20 bisacodyl 5 mg tablet,delayed 5 mg PO Q3D PRN #30 tab 01/31/20 06/20/20 release ondansetron 4 mg disintegrating 4 mg PO BID PRN PRN #14 tab 01/31/20 06/20/20 tablet amoxicillin 500 mg PO DAILY 06/20/20 06/20/20 oxycodone 5 mg PO Q6H PRN 06/20/20 06/20/20 Previous Rx's Medication Instructions Recorded bisacodyl 5 mg tablet,delayed 5 mg PO Q3D PRN #30 tab 01/31/20 release ondansetron 4 mg disintegrating 4 mg PO BID PRN PRN #14 tab 01/31/20 tablet Allergies Allergy/AdvReac Type Severity Reaction Status Date / Time cephalexin monohydrate Allergy Severe trouble Verified 06/20/20 00:42 [From Keflex] breathing colchicine Allergy Verified 06/20/20 00:42 allopurinol AdvReac Intermediate gout Verified 06/20/20 00:42 breakout erythromycin base AdvReac Intermediate gout Verified 06/20/20 00:42 breakout oxycodone AdvReac Unknown constipatio Verified 06/20/20 00:42 n General AWA: 3 Review of Systems Narrative: As documented in HPI otherwise negative as below. Const: no fever, chills, weakness Resp: chronic cough, SOB CV: no CP, diaphoresis, syncope GI: no abdominal pain, nausea, vomiting, diarrhea Neuro: no headache, numbness, focal weakness, confusion [facility] Medical History Acute bronchitis Acute respiratory failure with hypoxia Acute right-sided congestive heart failure [facility]-05/12/17 Alcohol abuse Aortic stenosis Axillary lymphadenopathy Bleeding hemorrhoids (01/08/13) rectal bleeding (colonoscopy [facility] 01/01/13 internal hemorrhoids and diverticuli) Cannabis dependence Central venous catheter in place (~10/29/19) [facility] Chest tube in place 05/11/16~ [facility] AV REPLACEMENT TUBE; REMOVE SUTURES ON OR AFTER 3/4/17 CKD (chronic kidney disease) stage 5, GFR less than 15 ml/min Community acquired pneumonia COPD (chronic obstructive pulmonary disease) Critical aortic valve stenosis s/p valve repalcement CVD (cardiovascular disease) Cyst of ovary (08/20/12) Depression (09/14/12) Diverticulitis of large intestine without perforation or abscess with bleeding DNI (do not intubate) DNR (do not resuscitate) ESRD on dialysis Essential hypertension (01/16/13) severe and labile Gallstones Gastroesophageal reflux disease with esophagitis (02/03/15) Hyperkalemia Hyperlipidemia Hyperparathyroidism, unspecified (02/09/11) 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[facility] 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 Recurrent urinary tract infection Renal failure 2010 transplant failed, back on dialysis 1997-renal transplant left pelvis; renal insuff. Right foot injury (10/19/16) Right heart failure Secondary hyperparathyroidism (of renal origin) Shoulder pain, right continue with tylenol as needed/warmth call if not getting better Smoker Tinea cruris Tricuspid regurgitation s/p tricuspid valve replacement 02/2020 Umbilical hernia repaired 1995,1997,2001,2003 Upper GI bleed (05/17/14) 05/15/14 [facility] EGD, HH, esophagitis, gastric ulcer and duodenitis Ventral hernia Wound infection after surgery Surgical History Abdominal hysterectomy (~2006) s/p hyst, but cervix still present and needs yearly PAP due to transplant H/O aortic valve replacement History of kidney transplant Repair of umbilical hernia 1995,1997,2001,2003 TRANSPLANT, KIDNEY (~1997) LEFT Family History Mother Essential hypertension Personal history of malignant neoplasm KIDNEY Heart disease Pulmonary emphysema Father Personal history of malignant neoplasm Pulmonary emphysema Brother Hyperlipidemia Brother Hyperlipidemia Brother No problems noted. Social History Smoking/Tobacco Use Status: Current-Occasional Tobacco Type: cigarettes Smoking risk assessment performed?: Yes Alcohol Intake: former Drug use: Daily Substance use type: marijuana Details: pt states she has not had ETOH x 4 years- edible marijuana Current gender identity: female Do you feel safe at home: Yes Do you feel safe in your relationship?: Yes Exam Narrative Exam Narrative: Const: WDWN female in NAD. HEENT: NC/AT. Normal facial exam. Neck: Supple. Trachea midline. Hematoma with mild tenderness base of the right neck where tunneled catheter appears to enter subclavian vein. Lungs: Normal respiratory effort. Tunneled catheter exit anterior right upper chest. Bruising in the area of catheter. Slight oozing around catheter entrance into the skin. Neuro: A+O x 3. Normal speech, mentation. Cranial nerves II - XII grossly intact. No gross motor or sensory deficit. Ext: No C/E. Skin: Warm and dry. Bruising involving right base of, subclavian area, upper chest.
[2020-06-20] MEDS: Albuterol/Ipratropium 3 ML UPD VIAL UPD (01:02)
--- NOTE | 2020-06-20 01:34 | DI.RAD_ITS ---
EXAM: XR CHEST 2V PA LATERAL CLINICAL HISTORY: check cath placement TECHNIQUE: 2D digital imaging was performed. COMPARISON: CR XR CHEST 2V PA LATERAL from 04/15/2019 FINDINGS: MEDIASTINUM: Normal. HEART: There is cardiomegaly present. There are aortic and mitral valve replacements. PULMONARY VASCULATURE: Normal. LUNGS: The lungs are clear and hyperinflated suggesting underlying COPD. PLEURAL SPACE: No pleural effusion or pneumothorax. There is stable blunting of the costophrenic angl e suggesting scarring. BONE:Within normal limits for the patient's age. OTHER FINDINGS:The tunneled right IJ catheter is in good position. IMPRESSION: 1. The tunnel dialysis catheter is in good position. 2. No acute pulmonary process. DATA REPOSITORY: RADIATION DOSE DELIVERED:
--- NOTE | 2020-06-20 02:14 | DI.VRAD_ITS ---
PROCEDURE INFORMATION: Exam: XR Chest Exam date and time: 06/20/2020 12:50 AM Age: 54 years old Clinical indication: Other vascular access device placement or adjustment; Other: Central line; Prior surgery; Surgery date: Post-operative (0-2 days); Surgery type: [place] [facility] [place] position TECHNIQUE: Imaging protocol: XR of the chest. Views: 2 views. COMPARISON: CR XR CHEST 2V PA LATERAL 04/15/2019 1:24 PM FINDINGS: Tubes, catheters and devices: Right chest tunneled dialysis catheter is well positioned. Lungs: Hyperinflation of lung knox suggesting COPD. No focal lung consolidation. No interstitial edema. Pleural spaces: Blunting of the costophrenic angles bilaterally suggesting minor pleural effusions. No pneumothorax. Heart/Mediastinum: Cardiomegaly. Mitral valve replacement. Aortic valve replacement. Bones/joints: Unremarkable. IMPRESSION: 1. Hyperinflation suggesting COPD. No acute lung infiltrates or edema. 2. Blunted costophrenic angles consistent with small pleural effusions. 3. Right chest dialysis catheter well positioned. 4. Cardiomegaly. Previous open-heart surgery for aortic and mitral valve replacements. Dictated and Authenticated by: Og Quarles MD. Ordering:DENI Diaz MD
== END 2020-06-20 02:55 | disposition home or self-care (01) ==
PROVIDERS: Emergency Provider Emergency Medicine; PCP Family Medicine
DX: T82.838A Hemorrhage due to vascular prosthetic devices, implants and grafts, initial encounter (principal); L76.32 Postprocedural hematoma of skin and subcutaneous tissue following other procedure
CPT/HCPCS: 94640; 99284; 71046; 99283; J7620

== ENCOUNTER 2020-07-03 11:35 | Emergency (ER) | payer MEDICARE, SELFPAY ==
[2020-07-03] VITALS (26 sets, daily range): BP systolic 174–196; BP diastolic 90–114; PULSE 68–79; RESP 4–34; TEMP 37.3; O2SAT 90–100
--- NOTE | 2020-07-03 12:06 | ED.GENADUL_ITS ---
Discharge Plan Disposition Patient Disposition: HOME Condition: Improving Discharge Details Clinical Impression: Headache, Hypertension Primary Care Provider: [facility] ED Provider: Gladis Haji Home Meds and New Rx's Prescriptions: Continued ondansetron 4 mg tablet,disintegrating 4 mg PO BID PRN PRN (Reason: nausea and vomiting) Qty: 14 RF: 0 bisacodyl [Dulcolax (bisacodyl)] 5 mg tablet,delayed release (DR/EC) 5 mg PO Q3D PRN (Reason: constipation) Qty: 30 RF: 3 aspirin 81 MG tablet,chewable 81 mg PO DAILY RF: 0 Velphoro 500 MG tablet,chewable 1,000 mg PO AC RF: 0 albuterol sulfate [ProAir HFA] 8.5 GM HFA aerosol inhaler 2 puff Inhalation Q4H PRN RF: 0 atorvastatin 40 mg tablet 40 mg PO DAILY RF: 0 carboxymethylcellulose sodium 0.5 % dropperette 1 drp OP BID RF: 0 minoxidil 2.5 mg tablet 2.5 mg PO BID RF: 0 omeprazole 40 mg Capsule,Delayed Release(Dr/Ec) 40 mg PO BID RF: 0 meclizine 12.5 mg Tablet 12.5 mg PO PRN PRNRF: 0 Velphoro 500 mg Tablet,Chewable 500 mg PO PRN PRNRF: 0 (DME) Aerochamber MV Spacer MISCELLANEOUS RF: 0 amoxicillin 500 mg Tablet 500 mg PO DAILY RF: 0 oxycodone 5 mg Tablet 5 mg PO Q6H PRNRF: 0 Discharge Instructions Instructions: Hypertension (ED), General Headache (ED) Additional Instructions: Take your regular medications as directed. Take Tylenol as needed and directed for headache. Check your blood pressure this evening when you get home. If it remains high, you can take your evening dose of minoxidil. Follow-up with your primary care doctor in 1 week. Return to the emergency department with any worsening or new concerning symptoms. Discharge Data Discharge Date/Time-TO BE ENTERED AT DEPARTURE: 07/03/20 15:55 Discharge Physician: Gladis Haji Medical Decision Making 54-year-old female with a history of hypertension, COPD, end-stage renal disease on dialysis presents with hypertension today and headache for the past few days. Blood pressure on arrival 183/107. States her highest blood pressure has been 230/114. She denies any chest pain. She states she has intermittent shortness of breath and wheezing with her COPD and states she would like a breathing treatment for this. Patient has scattered wheezing throughout. EKG unremarkable. History and presentation does not appear consistent with CVA, ACS, dissection, PE. Considering patient's age and history, will check screening labs, CT head and chest x-ray and give a dose of 5 mg minoxidil p.o. x1. Labs and imaging reviewed and unremarkable. CT head negative. Chest x-ray negative. Patient reassessed and she feels much better and she is requesting to go home. Lowest blood pressure 181/94. Patient states she needs to go home and sleep as she is becoming anxious while waiting here in the ED and this may be affecting her blood pressure. She states she will check her blood pressure when she gets home and take another minoxidil before bedtime if needed. She is advised to follow-up with her primary care doctor for reevaluation. Usual and customary return precautions given prior to discharge. Medical Records Medical records reviewed: Yes I reviewed the patient's medical records. Imaging Data Radiologic Study: Radiologist's impression: CT HEAD WO CLINICAL HISTORY: headache, r/o acute disease. TECHNIQUE: Imaging Protocol: Axial computed tomography images with coronal and sagittal reformatted images were created and reviewed COMPARISON: CT CT HEAD CERVICAL SPINE WO from 02/12/2018 FINDINGS: Ventricles and Extra axial spaces: Normal in size and morphology for the patient's age. Hemorrhage: None. Cerebral parenchyma: Normal. Midline shift: None. Brainstem/Cerebellum: Normal. Calvarium: Normal. Visualized Paranasal sinuses/Mastoids: Clear. Soft Tissues: Unremarkable. IMPRESSION: No acute intracranial process. XR CHEST 2V PA LATERAL CLINICAL HISTORY: sob, r/o acute disease TECHNIQUE: 2D digital imaging was performed. COMPARISON: CR,XR XR CHEST 2V PA LATERAL from 06/20/2020 FINDINGS: The heart is again noted to be grossly enlarged. Valve prostheses are again noted. There are sternal wires. A port is again noted over the right chest with tip in the right atrium. The lungs are clear. There is no pneumothorax. IMPRESSION: Cardiomegaly, stable. No acute pulmonary findings. Lab Data Lab results reviewed: Yes I reviewed the patient's lab results. Labs: Laboratory Tests Range/Units 07/03/20 07/03/20 12:57 12:57 WBC (4.4-10.8) 10^3/uL 6.42 RBC (3.93-5.22) 10^6/uL 3.27 L Hgb (11.2-15.7) g/dL 9.7 L Hct (36.0-46.0) % 31.2 L MCV (80-95) fL 95.4 H MCH (27.0-33.0) pg 29.7 MCHC (32.0-36.0) % 31.1 L RDW (11.7-14.6) % 16.5 H Plt Count (130-400) 10^3/uL 179 MPV (8.0-11.0) fL 11.2 H Immature Gran % 0.8 Neutrophils % 69.4 Lymphocytes % 9.5 Monocytes % 8.1 Eosinophils % 11.4 Basophils % 0.8 Nucleated RBC % % 0 Absolute Neutrophils (1.2-6.7) 10^3/uL 4.46 Absolute Lymphocytes (1.2-3.4) 10^3/uL 0.61 L Absolute Monocytes (0.1-0.8) 10^3/uL 0.52 Absolute Eosinophils (0.0-0.7) 10^3/uL 0.73 H Absolute Basophils (0.0-0.2) 10^3/uL 0.05 Sodium (136-145) mmol/L 138 Potassium (3.5-5.1) mmol/L 3.5 Chloride (98-107) mmol/L 99 Carbon Dioxide (21.0-32.0) mmol/L 32.8 H Anion Gap (3-11) mmol/L 6.2 BUN (7-18) mg/dL 9 Creatinine (0.55-1.02) mg/dL 2.8 H Estimated GFR/1.73 m2 (mL/min/1.73m2) 17.48 Glucose (74-106) mg/dL 79 Calcium (8.5-10.1) mg/dL 8.9 Total Bilirubin (0.2-1.0) mg/dL 0.9 AST (15-37) U/L 33 ALT (14-59) U/L 19 Alkaline Phosphatase (46-116) U/L 305 H Total Protein (6.4-8.2) g/dL 7.6 Albumin (3.4-5.0) g/dL 3.6 ECG Data Attestation: I personally reviewed and interpreted this ECG (s) as follows: HPI General Mode of arrival: ambulatory . Date/Time Provider Initiated Documentation: 07/03/20 12:05 . Limitations to Documentation: no limitations . Information obtained by: patient . HPI Narrative: Patient is a 54-year-old female with a history of hypertension, GERD, COPD, end-stage renal disease on dialysis who presents to the ED with complaint of hypertension today and headache for the past few days. Patient states she finished her regular session of dialysis today and was noted to be hypotensive before and after the procedure. She states her blood pressure was highest at 230/114. She states she has had intermittent diffuse headache for the past few days. She denies any fever, neck pain, blurry vision, chest pain, nausea, vomiting or dizziness. She states she has intermittent shortness of breath and wheezing with her COPD and states she has been using her nebulizer for this today. She states she has some wheezing at present for which she would like a breathing treatment. She states she did not take her minoxidil this morning due to her shortness of breath. Related Data Home Medications Medication Instructions Recorded Confirmed Velphoro 1,000 mg PO AC tab.chew 05/24/16 06/20/20 aspirin 81 mg PO DAILY tab-cap 05/24/16 06/20/20 albuterol sulfate [ProAir HFA] 2 puff INHALATION Q4H PRN inhaler 07/26/17 06/20/20 Aerochamber MV 01/26/19 06/20/20 Velphoro 500 mg PO PRN PRN 01/26/19 06/20/20 meclizine 12.5 mg PO PRN PRN 03/18/19 06/20/20 omeprazole 40 mg PO BID 03/18/19 06/20/20 atorvastatin 40 mg tablet 40 mg PO DAILY 10/24/19 06/20/20 carboxymethylcellulose sodium 0.5 1 drp OP BID 10/24/19 06/20/20 % eye drops in a dropperette minoxidil 2.5 mg tablet 2.5 mg PO BID 12/09/19 06/20/20 bisacodyl 5 mg tablet,delayed 5 mg PO Q3D PRN #30 tab 01/31/20 06/20/20 release ondansetron 4 mg disintegrating 4 mg PO BID PRN PRN #14 tab 01/31/20 06/20/20 tablet amoxicillin 500 mg PO DAILY 06/20/20 06/20/20 oxycodone 5 mg PO Q6H PRN 06/20/20 06/20/20 Previous Rx's Medication Instructions Recorded bisacodyl 5 mg tablet,delayed 5 mg PO Q3D PRN #30 tab 01/31/20 release ondansetron 4 mg disintegrating 4 mg PO BID PRN PRN #14 tab 01/31/20 tablet Allergies Allergy/AdvReac Type Severity Reaction Status Date / Time cephalexin monohydrate Allergy Severe trouble Verified 06/26/20 14:42 [From Keflex] breathing colchicine Allergy Verified 06/26/20 14:42 allopurinol AdvReac Intermediate gout Verified 06/26/20 14:42 breakout erythromycin base AdvReac Intermediate gout Verified 06/26/20 14:42 breakout oxycodone AdvReac Unknown constipatio Verified 06/26/20 14:42 n General AWA: 3 Review of Systems All systems reviewed & are unremarkable except as noted in HPI and below Constitutional Constitutional: Reports as per HPI, Denies chills, Denies fever(s) and Reports headache(s) Eyes Eyes: Denies blurry vision ENT Ears, Nose, Mouth, and Throat: Denies dizziness, Reports headache(s), Denies sore throat and Denies throat swelling Cardiovascular Cardiovascular: Denies chest pain and Reports dyspnea Respiratory Respiratory: Denies cough and Reports dyspnea Gastrointestinal Gastrointestinal: Denies abdominal pain, Denies diarrhea and Denies vomiting Genitourinary Genitourinary: Denies hematuria and Denies dysuria Musculoskeletal Musculoskeletal: Denies back pain and Denies numbness Integumentary/Breasts Skin/Breast: Denies lesions and Denies rash Neurologic Neurologic: Denies dizziness, Reports headache(s), Denies localized weakness and Denies numbness Allergic/Immunologic Allergic/Immunologic: Denies throat swelling [facility] Medical History Acute bronchitis Acute respiratory failure with hypoxia [place] right-sided congestive heart [place] [facility] [place] Alcohol abuse Aortic stenosis Axillary lymphadenopathy Bleeding hemorrhoids (01/08/13) rectal bleeding [place] [facility] [place] internal hemorrhoids and diverticuli) Cannabis dependence Central venous catheter in place (~10/29/19) [facility] [place] Chest tube in place 05/11/16~ [facility] [place] TUBE; REMOVE SUTURES ON OR AFTER 05/14/16 CKD (chronic kidney disease) stage 5, GFR less than 15 ml/min Community acquired pneumonia COPD (chronic obstructive pulmonary disease) Critical aortic valve stenosis s/p valve repalcement CVD (cardiovascular disease) Cyst of ovary (08/20/12) Depression (09/14/12) Diverticulitis of large intestine without perforation or abscess with bleeding DNI (do not intubate) DNR (do not resuscitate) ESRD on dialysis Essential hypertension (01/16/13) severe and labile Gallstones Gastroesophageal reflux disease with esophagitis (02/03/15) Hyperkalemia Hyperlipidemia Hyperparathyroidism, unspecified (02/09/11) 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 [place] Nail dystrophy Other psychoactive substance abuse, uncomplicated Palliative care patient POLST (Physician Orders for Life-Sustaining Treatment) COLST completed 02/13/2020, DNR/DNI. Recurrent urinary tract infection Renal failure 2010 transplant failed, back on dialysis 1997-renal transplant left pelvis; renal insuff. Right foot injury (10/19/16) Right heart failure Secondary hyperparathyroidism (of renal origin) Shoulder pain, right continue with tylenol as needed/warmth call if not getting better Smoker Tinea cruris Tricuspid regurgitation s/p tricuspid valve replacement 02/2020 Umbilical hernia repaired 1995,1997,2001,2003 Upper GI bleed (05/17/14) 05/15/14 [facility] [place], HH, esophagitis, gastric ulcer and duodenitis Ventral hernia Wound infection after surgery Surgical History Abdominal hysterectomy (~2006) s/p hyst, but cervix still present and needs yearly PAP due to transplant H/O aortic valve replacement History of kidney transplant Repair of umbilical hernia 1995,1997,2001,2003 TRANSPLANT, KIDNEY (~1997) LEFT Family History Mother Essential hypertension Personal history of malignant neoplasm KIDNEY Heart disease Pulmonary emphysema Father Personal history of malignant neoplasm Pulmonary emphysema Brother Hyperlipidemia Brother Hyperlipidemia Brother No problems noted. Social History Smoking/Tobacco Use Status: Current-Occasional Tobacco Type: cigarettes Smoking risk assessment performed?: Yes Alcohol Intake: former Drug use: Daily Substance use type: marijuana Details: pt states she has not had ETOH x 4 years- edible marijuana Current gender identity: female Do you feel safe at home: Yes Do you feel safe in your relationship?: Yes Exam Const General: cooperative and no acute distress HENMT Head: normal to inspection Face and sinus: normal facial exam Eyes General: appearance normal, both eyes and all related structures Pupils: PERRL EOM: EOM intact bilaterally Neck Neck: normal visual inspection and No submandibular swelling Lymphatic: no lymphadenopathy noted Chest Chest: normal inspection of the chest and no tenderness Resp Effort & Inspection: normal respiratory effort and able to speak in complete sentences Auscultation: wheezes scattered wheezes Cardio Rate: regular rate Rhythm: regular rhythm GI Inspection: normal to inspection Palpation: soft, not firm, not rigid and nontender Auscultation: normal bowel sounds Back/Spine/Pelvis Pelvis: no pain with anterior-posterior compression Skin General skin exam: no rashes or lesions noted Neuro General: patient alert, patient awake, patient oriented x3, gait normal, moves all extremities, no meningeal signs and no focal motor deficits Cranial Nerves: CN's II-XI intact bilaterally Cognition: normal cognition Speech: speech normal Motor: muscle tone normal throughout Sensory Exam: no sensory deficits noted Extrem General: normal to inspection, full ROM, capillary refill normal, no calf tenderness bilaterally and no edema Psych Appearance: grossly normal Mental Status: mental status grossly normal Speech and Movement: speech and movement normal Affect: normal affect
--- NOTE | 2020-07-03 12:15 | DI.CT_ITS ---
EXAM: CT HEAD WO CLINICAL HISTORY: headache, r/o acute disease. TECHNIQUE: Imaging Protocol: Axial computed tomography images with coronal and sagittal reformatted images were created and reviewed COMPARISON: CT CT HEAD CERVICAL SPINE WO from 02/12/2018 FINDINGS: Ventricles and Extra axial spaces: Normal in size and morphology for the patient's age. Hemorrhage: None. Cerebral parenchyma: Normal. Midline shift: None. Brainstem/Cerebellum: Normal. Calvarium: Normal. Visualized Paranasal sinuses/Mastoids: Clear. Soft Tissues: Unremarkable. IMPRESSION: No acute intracranial process. RADIATION DOSE DELIVERED: 698.89mGy.cm Total DLP DATA REPOSITORY: All CT scans at this facility are submitted to the National Radiology Data Registry (NRDR) Dose Index Registry (DIR) with the [employer] ([employer]). RADIATION OPTIMIZATION: All CT scans at this facility use at least one of these dose optimization te chniques: automated exposure control; mA and/or kV adjustment per patient size (includes targeted exa ms where dose is matched to clinical indication); or iterative reconstruction.
--- NOTE | 2020-07-03 12:30 | DI.RAD_ITS ---
EXAM: XR CHEST 2V PA LATERAL CLINICAL HISTORY: sob, r/o acute disease TECHNIQUE: 2D digital imaging was performed. COMPARISON: CR,XR XR CHEST 2V PA LATERAL from 06/20/2020 FINDINGS: The heart is again noted to be grossly enlarged. Valve prostheses are again noted. There are sterna l wires. A port is again noted over the right chest with tip in the right atrium. The lungs are omega ar. There is no pneumothorax. IMPRESSION: Cardiomegaly, stable. No acute pulmonary findings. DATA REPOSITORY: RADIATION DOSE DELIVERED:
[2020-07-03] MEDS: Normal Saline 250 ML IV (13:01)
[2020-07-03] MEDS: ACETAMINOPHEN 1,000 MG/100 ML BTL 400 MG IVPB (13:02)
[2020-07-03 13:19] LABS: Abs Immature Grans 0.05 10^3/uL (0.0-0.06); Absolute Basophil Count 0.05 10^3/uL (0.0-0.2); Absolute Eosinophil Count 0.73 10^3/uL (0.0-0.7); Absolute Lymphocyte Count 0.61 10^3/uL (1.2-3.4); Absolute Monocyte Count 0.52 10^3/uL (0.1-0.8); Absolute Neutrophil Count 4.46 10^3/uL (1.2-6.7); Basophils % 0.8; Eosinophils % 11.4; HCT 31.2 % (36.0-46.0); HGB 9.7 g/dL (11.2-15.7); Immature Grans % 0.8; Lymphocytes % 9.5; MCH 29.7 pg (27.0-33.0); MCHC 31.1 % (32.0-36.0); MCV 95.4 fL (80-95); MPV 11.2 fL (8.0-11.0); Monocytes % 8.1; Neutrophils % 69.4; Nucleated RBC 0 %; Platelet Count 179 10^3/uL (130-400); RBC 3.27 10^6/uL (3.93-5.22); RDW 16.5 % (11.7-14.6); RDW-SD 56.8 fL; WBC 6.42 10^3/uL (4.4-10.8)
[2020-07-03 13:22] LABS: ALT 19 U/L (14-59); AST 33 U/L (15-37); Albumin 3.6 g/dL (3.4-5.0); Alkaline Phosphatase 305 U/L (46-116); Anion Gap 6.2 mmol/L (3-11); BUN 9 mg/dL (7-18); Bilirubin, Total 0.9 mg/dL (0.2-1.0); CO2 32.8 mmol/L (21.0-32.0); CREATININE 2.8 mg/dL (0.55-1.02); Calcium 8.9 mg/dL (8.5-10.1); Chloride 99 mmol/L (98-107); Estimated GFR 17.48 (mL/min/1.73m2); Glucose 79 mg/dL (74-106); Potassium 3.5 mmol/L (3.5-5.1); Sodium 138 mmol/L (136-145); Total Protein 7.6 g/dL (6.4-8.2)
[2020-07-03] MEDS: Minoxidil 2.5 MG TAB 5 MG PO (13:24)
[2020-07-03] MEDS: Albuterol/Ipratropium 3 ML UPD VIAL UPD (13:25)
--- NOTE | 2020-07-03 15:30 | RT.EKG_ITS ---
APPROVED REPORT Exam: Resting ECG Patient Location: E HR:76 bpm ECG Measurements Heart Rate 76 AXIS OK 187 P -22 QRSd 156 QRS 65 QT 468 T -31 QTc 522 Conclusion Sinus rhythm...normal P axis, V-rate 60- 99 Atrial premature complex...SV complex w/ short R-R interval Right bundle branch block...QRSd>120, terminal axis(90,270). No change from previous. I have reviewed and interpreted ECG and agree with software generated interpretation. I have reviewed and interpreted ECG and agree with software generated interpretation.
== END 2020-07-03 15:55 | disposition home or self-care (01) ==
PROVIDERS: Emergency Provider Physician Assistant; PCP Family Medicine
DX: I12.0 Hypertensive chronic kidney disease with stage 5 chronic kidney disease or end stage renal disease (principal); N18.6 End stage renal disease; Z99.2 Dependence on renal dialysis; R51.9 Headache, unspecified
CPT/HCPCS: 80053; 93005; 94640; 99284; 70450; 71046; 85025; 93010; 99283; J0131; J7620

== ENCOUNTER 2020-07-10 14:10 | Emergency (ER) | payer MEDICARE, SELFPAY ==
[2020-07-10 14:24] VITALS: BP 161/87; PULSE 82; RESP 20; TEMP 36.3; O2SAT 93
--- NOTE | 2020-07-10 14:38 | W.ED.GENAD ---
Discharge Plan Disposition Patient Disposition: HOME Condition: Stable Discharge Details Clinical Impression: Spontaneous hematoma of hand Primary Care Provider: Chano Neves ED Provider: Lyn Márquez Home Meds and New Rx's Prescriptions: No Action ondansetron 4 mg tablet,disintegrating 4 mg PO BID PRN PRN (Reason: nausea and vomiting) Qty: 14 RF: 0 bisacodyl [Dulcolax (bisacodyl)] 5 mg tablet,delayed release (DR/EC) 5 mg PO Q3D PRN (Reason: constipation) Qty: 30 RF: 3 aspirin 81 MG tablet,chewable 81 mg PO DAILY RF: 0 Velphoro 500 MG tablet,chewable 1,000 mg PO AC RF: 0 albuterol sulfate [ProAir HFA] 8.5 GM HFA aerosol inhaler 2 puff Inhalation Q4H PRN RF: 0 atorvastatin 40 mg tablet 20 mg PO DAILY RF: 0 minoxidil 2.5 mg tablet 5 mg PO BID RF: 0 omeprazole 40 mg Capsule,Delayed Release(Dr/Ec) 40 mg PO BID RF: 0 meclizine 12.5 mg Tablet 12.5 mg PO PRN PRNRF: 0 Velphoro 500 mg Tablet,Chewable 500 mg PO PRN PRNRF: 0 (DME) Aerochamber MV Spacer MISCELLANEOUS RF: 0 oxycodone 5 mg Tablet 5 mg PO Q6H PRNRF: 0 Discharge Instructions Instructions: Hematoma (ED) Additional Instructions: Rest ice compression elevation. Keep extremity elevated above the level of your heart while sitting or lying down. Apply ice directly to the skin at least 3 times a day. You may try a compression wrap milligrams (okay You were alsoor nery bandage. Please which you need me to get on a care take Tylenol with food every 4-6 hours as needed for pain and swelling. Return to the ED or be seen sooner if you feel that you may have some complications with vasculature distally to the injury. Return for severe increasing pain, cold blue numb or tingly fingers or worsening swelling. Follow up with primary care provider in 3-5 days. Return to ED sooner if any worsening or concerns. Increase oral fluids. Referrals: Chano Neves [Primary Care Provider] - Discharge Data Discharge Date/Time-TO BE ENTERED AT DEPARTURE: 07/10/20 16:59 Medical Decision Making 54-year-old female with history of chronic kidney disease, COPD, hypertension and aortic stenosis presents to the ER chief complaint of left hand pain and swelling which began at approximately 1:00 this afternoon. Patient is a dialysis patient had dialysis this morning from a right subclavian dialysis port but she states that approximately 1 PM when she was driving home she noticed her left hand began to swell. On initial exam she does have a large hematoma to the dorsum of her left hand which is painful to the touch. Cap refill to the distal digits is less than 2 seconds she does have good radial pulses intact. She has a dialysis shunt to her left AC which is no longer in use and has been tied off without a bruit or thrill palpated. She denies any injury to the hand or bumping it on anything that she can remember. She does not take it blood thinners she finished warfarin end of May, she does take a daily baby aspirin. Ice pack applied by industrial staff nurse in triage, lab orders in place x-ray of left hand ordered and hydrocodone/Tylenol. Labs show hemoglobin of 9.7 hematocrit 30.9 which is largely patient's baseline, PT is 12.0 INR 2. EXAM: XR HAND LT COMPLETE CLINICAL HISTORY: Hematoma, R/O injury. TECHNIQUE: 2D digital imaging was performed. COMPARISON: No exams were available for comparison FINDINGS: BONES: No acute fracture is present. No bony destructive lesion is seen. JOINTS: No dislocation present. SOFT TISSUE: There is marked soft tissue swelling of the dorsum of the hand. No radiopaque foreign bodies are seen in the soft tissues. IMPRESSION: 1. No acute fracture or dislocation. 2. Marked soft tissue swelling on the dorsum of the hand. CBC shows hemoglobin 9.7 hematocrit 30.9 which is largely patient's baseline, PT 12.0 INR 1.2. Ultrasound soft tissue ordered extremity to rule out arterial bleed. 1600: Spoke with radiologist regarding ultrasound result he does not appreciate any arterial bleeding. EXAM: US SOFT TISSUE EXTREMITY CLINICAL HISTORY: Swelling dorsum left hand. TECHNIQUE: Ultrasound was performed using standard protocol. COMPARISON: No exams were available for comparison FINDINGS: Sonographic assessment utilizing grayscale and color Doppler imaging was performed and targeted to the area of clinical concern. There is a 2.2 AP by 3.7 cc by 4.1 transverse complex fluid collection in the dorsum of the wrist consistent with the patient's known hematoma. No arterial flow is seen within the lesion. There is a vein adjacent to the lesion which appears to communicate. IMPRESSION: 4.1 cm hematoma on the dorsum of the wrist. Results of this exam have been verbally communicated with provider. Discussed results with patient, instructed rest ice compression elevation, discuss strict return instructions including vascular compromise and/or worsening swelling or pain. Patient verbalized understand. HPI General Mode of arrival: ambulatory. Date/Time Provider Initiated Documentation: 07/10/20 14:10. Limitations to Documentation: no limitations. Information obtained by: patient. HPI Narrative: 54-year-old female with history of chronic kidney disease, COPD, hypertension and aortic stenosis presents to the ER chief complaint of left hand pain and swelling which began at approximately 1:00 this afternoon. Patient is a dialysis patient had dialysis this morning from a right subclavian dialysis port but she states that approximately 1 PM when she was driving home she noticed her left hand began to swell. On initial exam she does have a large hematoma to the dorsum of her left hand which is painful to the touch. Cap refill to the distal digits is less than 2 seconds she does have good radial pulses intact. She has a dialysis shunt to her left AC which is no longer in use and has been tied off without a bruit or thrill palpated. She denies any injury to the hand or bumping it on anything that she can remember. She does not take it blood thinners she finished warfarin end of May, she does take a daily baby aspirin. Related Data Home Medications Medication Instructions Recorded Confirmed Velphoro 1,000 mg PO AC tab.chew 05/24/16 07/10/20 aspirin 81 mg PO DAILY tab-cap 05/24/16 07/10/20 albuterol sulfate [ProAir HFA] 2 puff INHALATION Q4H PRN inhaler 07/26/17 07/10/20 Aerochamber MV 01/26/19 06/20/20 Velphoro 500 mg PO PRN PRN 01/26/19 07/10/20 meclizine 12.5 mg PO PRN PRN 03/18/19 07/10/20 omeprazole 40 mg PO BID 03/18/19 07/10/20 atorvastatin 40 mg tablet 20 mg PO DAILY 10/24/19 07/10/20 minoxidil 2.5 mg tablet 5 mg PO BID 12/09/19 07/10/20 bisacodyl 5 mg tablet,delayed 5 mg PO Q3D PRN #30 tab 01/31/20 07/10/20 release ondansetron 4 mg disintegrating 4 mg PO BID PRN PRN #14 tab 01/31/20 07/10/20 tablet oxycodone 5 mg PO Q6H PRN 06/20/20 06/20/20 Previous Rx's Medication Instructions Recorded bisacodyl 5 mg tablet,delayed 5 mg PO Q3D PRN #30 tab 01/31/20 release ondansetron 4 mg disintegrating 4 mg PO BID PRN PRN #14 tab 01/31/20 tablet Allergies Allergy/AdvReac Type Severity Reaction Status Date / Time cephalexin monohydrate Allergy Severe trouble Verified 07/10/20 14:28 [From Keflex] breathing colchicine Allergy Verified 07/10/20 14:28 allopurinol AdvReac Intermediate gout Verified 07/10/20 14:28 breakout erythromycin base AdvReac Intermediate gout Verified 07/10/20 14:28 breakout oxycodone AdvReac Unknown constipatio Verified 07/10/20 14:28 n General Stated Complaint: Orthopedic AWA: 3 Review of Systems All systems reviewed & are unremarkable except as noted in HPI and below Musculoskeletal Musculoskeletal: Reports joint swelling Comments: Dorsum left hand [facility] Medical History Acute bronchitis Acute respiratory failure with hypoxia Acute right-sided congestive heart [place] [facility] Alcohol abuse Aortic stenosis Axillary lymphadenopathy Bleeding hemorrhoids (01/08/13) rectal bleeding (colon[place] [facility] [place] internal hemorrhoids and diverticuli) Cannabis dependence Central venous catheter in place (~10/29/19) [facility] Chest tube in place 05/11/16~ [facility] [place]PLACEMENT TUBE; REMOVE SUTURES ON OR AFTER 05/14/16 CKD (chronic kidney disease) stage 5, GFR less than 15 ml/min Community acquired pneumonia COPD (chronic obstructive pulmonary disease) Critical aortic valve stenosis s/p valve repalcement CVD (cardiovascular disease) Cyst of ovary (08/20/12) Depression (09/14/12) Diverticulitis of large intestine without perforation or abscess with bleeding DNI (do not intubate) DNR (do not resuscitate) ESRD on dialysis Essential hypertension (01/16/13) severe and labile Gallstones Gastroesophageal reflux disease with esophagitis (02/03/15) Hyperkalemia Hyperlipidemia Hyperparathyroidism, unspecified (02/09/11) 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[facility] Left 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 Recurrent urinary tract infection Renal failure 2010 transplant failed, back on dialysis 1997-renal transplant left pelvis; renal insuff. Right foot injury (10/19/16) Right heart failure Secondary hyperparathyroidism (of renal origin) Shoulder pain, right continue with tylenol as needed/warmth call if not getting better Smoker Tinea cruris Tricuspid regurgitation s/p tricuspid valve replacement 02/2020 Umbilical hernia repaired 1995,1997,2001,2003 Upper GI bleed (05/17/14) 05/15/14 [facility] [place], HH, esophagitis, gastric ulcer and duodenitis Ventral hernia Wound infection after surgery Surgical History Abdominal hysterectomy (~2006) s/p hyst, but cervix still present and needs yearly PAP due to transplant H/O aortic valve replacement History of kidney transplant Repair of umbilical hernia 1995,1997,2001,2003 TRANSPLANT, KIDNEY (~1997) LEFT Family History Mother Essential hypertension Personal history of malignant neoplasm KIDNEY Heart disease Pulmonary emphysema Father Personal history of malignant neoplasm Pulmonary emphysema Brother Hyperlipidemia Brother Hyperlipidemia Brother No problems noted. Social History Smoking/Tobacco Use Status: Current-Occasional Tobacco Type: cigarettes Smoking risk assessment performed?: Yes Alcohol Intake: former Drug use: Daily Substance use type: marijuana Details: pt states she has not had ETOH x 4 years- edible marijuana Current gender identity: female Do you feel safe at home: Yes Do you feel safe in your relationship?: Yes Exam Extrem Left upper extremity: hand Details: abnormal to inspection, normal capillary refill, neurosensory exam normal, tenderness, swelling Location: of the dorsal hand and ecchymosis Location: of the dorsal hand (See diagram below); no lacerations and no puncture wound Hand/finger images: 1. Small contusion 2. Significant swelling/hematoma noted to the dorsum of the left hand. Course Vital Signs Vital signs: Vital Signs Temperature 36.3 C L 07/10/20 14:24 Pulse 82 07/10/20 14:24 Respiratory Rate 20 07/10/20 14:24 Blood Pressure 161/87 H 07/10/20 14:24 Pulse Oximetry 93 07/10/20 14:24 Temperature 36.3 C L 07/10/20 14:24 Temperature Source Skin 07/10/20 14:24 Pulse 82 07/10/20 14:24 Respiratory Rate 20 07/10/20 14:24 Blood Pressure 161/87 H 07/10/20 14:24 Blood Pressure Position Sitting 07/10/20 14:24 Pulse Oximetry 93 07/10/20 14:24 Oxygen Delivery Method Room Air 07/10/20 14:24 Oxygen Flow Rate 0 07/10/20 14:24 Pain Level 10 07/10/20 14:24
[2020-07-10] MEDS: HYDROcodone 5/Acetaminophen 325 TAB PO (14:40)
--- NOTE | 2020-07-10 15:01 | DI.RAD_ITS ---
Exam(s) XR HAND LT COMPLETE EXAM: XR HAND LT COMPLETE CLINICAL HISTORY: Hematoma, R/O injury. TECHNIQUE: 2D digital imaging was performed. COMPARISON: No exams were available for comparison FINDINGS: BONES: No acute fracture is present. No bony destructive lesion is seen. JOINTS: No dislocation present. SOFT TISSUE: There is marked soft tissue swelling of the dorsum of the hand. No radiopaque foreign b odies are seen in the soft tissues. IMPRESSION: 1. No acute fracture or dislocation. 2. Marked soft tissue swelling on the dorsum of the hand. DATA REPOSITORY: RADIATION DOSE DELIVERED:
[2020-07-10 15:05] LABS: Abs Immature Grans 0.02 10^3/uL (0.0-0.06); Absolute Basophil Count 0.06 10^3/uL (0.0-0.2); Absolute Eosinophil Count 0.68 10^3/uL (0.0-0.7); Absolute Lymphocyte Count 0.49 10^3/uL (1.2-3.4); Absolute Neutrophil Count 2.97 10^3/uL (1.2-6.7); Basophils % 1.3; Eosinophils % 14.7; HCT 30.9 % (36.0-46.0); HGB 9.7 g/dL (11.2-15.7); Immature Grans % 0.4; Lymphocytes % 10.6; MCH 29.6 pg (27.0-33.0); MCHC 31.4 % (32.0-36.0); MCV 94.2 fL (80-95); MPV 11.6 fL (8.0-11.0); Monocytes % 8.7; Neutrophils % 64.3; Nucleated RBC 0 %; Platelet Count 130 10^3/uL (130-400); RBC 3.28 10^6/uL (3.93-5.22); RDW 16.2 % (11.7-14.6); RDW-SD 56.2 fL; WBC 4.62 10^3/uL (4.4-10.8)
--- NOTE | 2020-07-10 15:15 | DI.US_ITS ---
Exam(s) US SOFT TISSUE EXTREMITY EXAM: US SOFT TISSUE EXTREMITY CLINICAL HISTORY: Swelling dorsum left hand. TECHNIQUE: Ultrasound was performed using standard protocol. COMPARISON: No exams were available for comparison FINDINGS: Sonographic assessment utilizing grayscale and color Doppler imaging was performed and targeted to th e area of clinical concern. There is a 2.2 AP by 3.7 cc by 4.1 transverse complex fluid collection in the dorsum of the wrist con sistent with the patient's known hematoma. No arterial flow is seen within the lesion. There is a v ein adjacent to the lesion which appears to communicate. IMPRESSION: 4.1 cm hematoma on the dorsum of the wrist. Results of this exam have been verbally communicated with provider. DATA REPOSITORY:
[2020-07-10 15:22] LABS: INR 1.2 (0.9-1.1)
[2020-07-10 16:51] VITALS: BP 161/87; PULSE 82; RESP 20; TEMP 36.3; O2SAT 93
[2020-07-10] MEDS: oxyCODONE 5 MG TAB PO (16:51)
== END 2020-07-10 16:59 | disposition home or self-care (01) ==
PROVIDERS: Emergency Provider Registered Nurse Emergency; PCP Family Medicine
DX: M79.81 Nontraumatic hematoma of soft tissue (principal)
CPT/HCPCS: 36415; 76881; 99284; 73130; 85025; 85610

== ENCOUNTER 2020-07-11 20:11 | Emergency (ER) | payer MEDICARE, SELFPAY ==
[2020-07-11 20:17] VITALS: BP 178/103; PULSE 79; RESP 16; TEMP 36.8; O2SAT 93
--- NOTE | 2020-07-11 20:55 | ED.GENADUL_ITS ---
Discharge Plan Disposition Patient Disposition: HOME Condition: Stable Discharge Details Clinical Impression: Hematoma Primary Care Provider: Chano Neves ED Provider: Lyn Márquez Home Meds and New Rx's Prescriptions: No Action ondansetron 4 mg tablet,disintegrating 4 mg PO BID PRN PRN (Reason: nausea and vomiting) Qty: 14 RF: 0 bisacodyl [Dulcolax (bisacodyl)] 5 mg tablet,delayed release (DR/EC) 5 mg PO Q3D PRN (Reason: constipation) Qty: 30 RF: 3 aspirin 81 MG tablet,chewable 81 mg PO DAILY RF: 0 Velphoro 500 MG tablet,chewable 1,000 mg PO AC RF: 0 albuterol sulfate [ProAir HFA] 8.5 GM HFA aerosol inhaler 2 puff Inhalation Q4H PRN RF: 0 atorvastatin 40 mg tablet 20 mg PO DAILY RF: 0 minoxidil 2.5 mg tablet 5 mg PO BID RF: 0 omeprazole 40 mg Capsule,Delayed Release(Dr/Ec) 40 mg PO BID RF: 0 meclizine 12.5 mg Tablet 12.5 mg PO PRN PRNRF: 0 Velphoro 500 mg Tablet,Chewable 500 mg PO PRN PRNRF: 0 (DME) Aerochamber MV Spacer MISCELLANEOUS RF: 0 Discharge Instructions Instructions: Contusion in Adults (ED), Hematoma (ED) Additional Instructions: Use compression bandage and ice as much as possible. Keep elevated above the level of your heart is much as possible. Take Tylenol every 4-6 hours as needed pain. Follow up with primary care provider in 3-5 days. Return to ED sooner if any worsening or concerns. Referrals: Chano Neves. [Primary Care Provider] - Medical Decision Making Discussed hematoma healing process with patient and discussed that this is typical for the second day out of the spreading into the fingers and forearm. I did discuss that it will continue to spread and change color Ed wrap applied an ice pack. Patient does have a sling from yesterday's visit. Instructed to keep arm elevated above level of heart as much as possible. She verbalizes understanding. We will give patient a hydrocodone Tylenol here in department and discharge home This text was generated using Showbieation system, please disregard any odd ities of phrase or misspellings. Discussed strict return instructions and home care verbalized understanding. HPI General Mode of arrival: ambulatory . Date/Time Provider Initiated Documentation: 07/11/20 20:17 . Limitations to Documentation: no limitations . Information obtained by: patient . HPI Narrative: 54-year-old female presents to the ER chief complaint of left hand pain. Was seen yesterday by myself for left hand hematoma which patient reports began while driving. She denied any trauma or being on anything. She has a dialysis patient. Does take aspirin 81 mg daily. Is not currently on any anticoagulant she presents again today for spreading of the swelling into her fingers and her distal forearm increased pain. She states that she is been taking ibuprofen. She does have an ice pack in place upon arrival. On initial exam swelling has gone down somewhat fingers are more swollen and mild lateral forearm swelling. No erythema warmth or evidence of cellulitis at this time. Related Data Home Medications Medication Instructions Recorded Confirmed Velphoro 1,000 mg PO AC tab.chew 05/24/16 07/11/20 aspirin 81 mg PO DAILY tab-cap 05/24/16 07/11/20 albuterol sulfate [ProAir HFA] 2 puff INHALATION Q4H PRN inhaler 07/26/17 07/11/20 Aerochamber MV 01/26/19 07/11/20 Velphoro 500 mg PO PRN PRN 01/26/19 07/11/20 meclizine 12.5 mg PO PRN PRN 03/18/19 07/11/20 omeprazole 40 mg PO BID 03/18/19 07/11/20 atorvastatin 40 mg tablet 20 mg PO DAILY 10/24/19 07/11/20 minoxidil 2.5 mg tablet 5 mg PO BID 12/09/19 07/11/20 bisacodyl 5 mg tablet,delayed 5 mg PO Q3D PRN #30 tab 01/31/20 07/11/20 release ondansetron 4 mg disintegrating 4 mg PO BID PRN PRN #14 tab 01/31/20 07/11/20 tablet Previous Rx's Medication Instructions Recorded bisacodyl 5 mg tablet,delayed 5 mg PO Q3D PRN #30 tab 01/31/20 release ondansetron 4 mg disintegrating 4 mg PO BID PRN PRN #14 tab 11/20/20 tablet Allergies Allergy/AdvReac Type Severity Reaction Status Date / Time cephalexin monohydrate Allergy Severe trouble Verified 07/10/20 14:28 [From Keflex] breathing colchicine Allergy Verified 07/10/20 14:28 allopurinol AdvReac Intermediate gout Verified 07/10/20 14:28 breakout erythromycin base AdvReac Intermediate gout Verified 07/10/20 14:28 breakout oxycodone AdvReac Unknown constipatio Verified 07/10/20 14:28 n General Stated Complaint: Cellulitis AWA: 2 Review of Systems All systems reviewed & are unremarkable except as noted in HPI and below Musculoskeletal Musculoskeletal: Reports arthralgias (Left hand pain) and Reports joint swelling (Swelling has spread into her fingers and distal forearm) [facility] Medical History Acute bronchitis Acute respiratory failure with hypoxia Acute right-sided congestive heart failure [facility] [place]-05/12/17 Alcohol abuse Aortic stenosis Axillary lymphadenopathy Bleeding hemorrhoids (01/08/13) rectal bleeding (colonoscopy [facility] [place] 01/01/13 internal hemorrhoids and diverticuli) Cannabis dependence Central venous catheter in place (~10/29/19) [facility] Chest tube in place 05/11/16~ [facility] AV REPLACEMENT TUBE; REMOVE SUTURES ON OR AFTER 05/14/16 CKD (chronic kidney disease) stage 5, GFR less than 15 ml/min Community acquired pneumonia COPD (chronic obstructive pulmonary disease) Critical aortic valve stenosis s/p valve repalcement CVD (cardiovascular disease) Cyst of ovary (08/20/12) Depression (09/14/12) Diverticulitis of large intestine without perforation or abscess with bleeding DNI (do not intubate) DNR (do not resuscitate) ESRD on dialysis Essential hypertension (01/16/13) severe and labile Gallstones Gastroesophageal reflux disease with esophagitis (02/03/15) Hyperkalemia Hyperlipidemia Hyperparathyroidism, unspecified (02/09/11) 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[facility] [place] Left arm cellulitis [facility] current use of anticoagulant therapy Macular degeneration of left eye (~10/17/19) [facility] [place] Nail dystrophy Other psychoactive substance abuse, uncomplicated Palliative care patient POLST (Physician Orders for Life-Sustaining Treatment) COLST completed 02/13/2020, DNR/DNI. Recurrent urinary tract infection Renal failure 2010 transplant failed, back on dialysis 1997-renal transplant left pelvis; renal insuff. Right foot injury (10/19/16) Right heart failure Secondary hyperparathyroidism (of renal origin) Shoulder pain, right continue with tylenol as needed/warmth call if not getting better Smoker Tinea cruris Tricuspid regurgitation s/p tricuspid valve replacement 02/2020 Umbilical hernia repaired 1995,1997,2001,2003 Upper GI bleed (05/17/14) 05/15/14 [facility] [place] EGD, HH, esophagitis, gastric ulcer and duodenitis Ventral hernia Wound infection after surgery Surgical History Abdominal hysterectomy (~2006) s/p hyst, but cervix still present and needs yearly PAP due to transplant H/O aortic valve replacement History of kidney transplant Repair of umbilical hernia 1995,1997,2001,2003 TRANSPLANT, KIDNEY (~1997) LEFT Family History Mother Essential hypertension Personal history of malignant neoplasm KIDNEY Heart disease Pulmonary emphysema Father Personal history of malignant neoplasm Pulmonary emphysema Brother Hyperlipidemia Brother Hyperlipidemia Brother No problems noted. Social History Smoking/Tobacco Use Status: Current-Occasional Tobacco Type: cigarettes Smoking risk assessment performed?: Yes Alcohol Intake: former Drug use: Daily Substance use type: marijuana Details: pt states she has not had ETOH x 4 years- edible marijuana Current gender identity: female Do you feel safe at home: Yes Do you feel safe in your relationship?: Yes Exam Narrative Exam Narrative: Patient is a dialysis patient Const General: cooperative, comfortable and frail appearing Nutritional Appearance: thin Extrem Left upper extremity: full ROM (Wrist) and normal capillary refill Elbow/forearm/wrist images: 1. Swelling and ecchymosis, improved from yesterday Course Vital Signs Vital signs: Vital Signs Temperature 36.8 C 07/11/20 20:17 Pulse 79 07/11/20 20:17 Respiratory Rate 16 07/11/20 20:17 Blood Pressure 178/103 H 07/11/20 20:17 Pulse Oximetry 93 07/11/20 20:17 Temperature 36.8 C 07/11/20 20:17 Pulse 79 07/11/20 20:17 Respiratory Rate 16 07/11/20 20:17 Respiratory Effort 07/11/20 20:24 Blood Pressure 178/103 H 07/11/20 20:17 Blood Pressure Position Sitting 07/11/20 20:17 Pulse Oximetry 93 07/11/20 20:17 Oxygen Delivery Method Room Air 07/11/20 20:17 Oxygen Flow Rate 0 07/11/20 20:17 Pain Level 10 07/11/20 20:17
[2020-07-11] MEDS: HYDROcodone 5/Acetaminophen 325 TAB PO (21:40)
== END 2020-07-11 21:55 | disposition home or self-care (01) ==
PROVIDERS: Emergency Provider Registered Nurse Emergency; PCP Family Medicine
DX: M79.81 Nontraumatic hematoma of soft tissue (principal); R60.0 Localized edema
CPT/HCPCS: 99283

== ENCOUNTER 2020-08-19 08:21 | Emergency (ER) | payer MEDICARE, SELFPAY ==
[2020-08-19 08:24] VITALS: BP 152/84; PULSE 70; RESP 12; TEMP 36.7; O2SAT 94
--- NOTE | 2020-08-19 08:30 | DI.RAD_ITS ---
Exam(s) XR CHEST 2V PA LATERAL EXAM: XR CHEST 2V PA LATERAL CLINICAL HISTORY: Hypoxia TECHNIQUE: 2D digital imaging was performed. COMPARISON: CR XR CHEST 2V PA LATERAL from 07/03/2020 FINDINGS: MEDIASTINUM: Normal. HEART: Stable cardiomegaly. Valvular prior cc are again noted. PULMONARY VASCULATURE: Normal. LUNGS: Clear. The lungs appear hyperinflated suggesting underlying COPD. PLEURAL SPACE: No pleural effusion or pneumothorax. BONE:Within normal limits for the patient's age. Sternal wires are present. OTHER FINDINGS:The tip of the right-sided port is stable in the right atrium. IMPRESSION: No acute pulmonary findings. DATA REPOSITORY: RADIATION DOSE DELIVERED:
--- NOTE | 2020-08-19 08:38 | W.ED.GENAD ---
Discharge Plan Disposition Patient Disposition: HOME Condition: Improving Discharge Details Clinical Impression: Vomiting Primary Care Provider: Chano Neves ED Provider: Lyn Márquez Home Meds and New Rx's Prescriptions: Continued amoxicillin 500 mg capsule 500 mg PO BID RF: 0 ondansetron 4 mg tablet,disintegrating 4 mg PO BID PRN PRN (Reason: nausea and vomiting) Qty: 14 RF: 0 bisacodyl [Dulcolax (bisacodyl)] 5 mg tablet,delayed release (DR/EC) 5 mg PO Q3D PRN (Reason: constipation) Qty: 30 RF: 3 aspirin 81 MG tablet,chewable 81 mg PO DAILY RF: 0 Velphoro 500 MG tablet,chewable 1,000 mg PO AC RF: 0 albuterol sulfate [ProAir HFA] 8.5 GM HFA aerosol inhaler 2 puff Inhalation Q4H PRN RF: 0 atorvastatin 40 mg tablet 20 mg PO DAILY RF: 0 minoxidil 2.5 mg tablet 5 mg PO BID RF: 0 omeprazole 40 mg Capsule,Delayed Release(Dr/Ec) 40 mg PO BID RF: 0 meclizine 12.5 mg Tablet 12.5 mg PO PRN PRNRF: 0 Velphoro 500 mg Tablet,Chewable 500 mg PO PRN PRNRF: 0 (DME) Aerochamber MV Spacer MISCELLANEOUS RF: 0 Discharge Instructions Instructions: Acute Nausea and Vomiting (ED) Additional Instructions: At this time there is no evidence for pneumonia on your chest x-ray, EKG was unchanged from last and a troponin was negative. Urine to be discharged to the dialysis clinic. Follow up with primary care provider in 3-5 days. Return to ED sooner if any worsening or concerns. Increase oral fluids. Referrals: Chano Neves [Primary Care Provider] - Discharge Data Discharge Date/Time-TO BE ENTERED AT DEPARTURE: 08/19/20 11:15 Medical Decision Making 75-year-old female with history of renal failure on dialysis presents to the ER via EMS with nausea vomiting which began this morning. Patient states that she was out in heat yesterday may have overexerted herself. Upon arrival she is hypoxic at 88% on room air. She is placed on 2 L nasal cannula now at 94%. She is reports generalized weakness. She denies any diarrhea, denies fever does have a past medical history of aortic valve replacement, hysterectomy, end-stage renal disease, heart failure, hypertension, COPD, she is still a smoker former drinker. She is alert and oriented upon arrival. 0920: Spoke with associate faculty at [facility] dialysis at this time awaiting work-up she reports that if she does not need to be admitted they can get her in before noon. She will call back for an update. EKG was reviewed by [facility] attending, please see his official report old EKG available for review. No significant change from previous. EXAM: XR CHEST 2V PA LATERAL CLINICAL HISTORY: Hypoxia TECHNIQUE: 2D digital imaging was performed. COMPARISON: CR XR CHEST 2V PA LATERAL from 07/03/2020 FINDINGS: MEDIASTINUM: Normal. HEART: Stable cardiomegaly. Valvular prior cc are again noted. PULMONARY VASCULATURE: Normal. LUNGS: Clear. The lungs appear hyperinflated suggesting underlying COPD. PLEURAL SPACE: No pleural effusion or pneumothorax. BONE:Within normal limits for the patient's age. Sternal wires are present. OTHER FINDINGS:The tip of the right-sided port is stable in the right atrium. IMPRESSION: No acute pulmonary findings. 1112: Patient placed on room air, 90% room air. Patient states that she feels somewhat better. Discussed follow-up with dialysis clinic patient does feel that she is able to do that. P.o. challenge successful, patient was given hayden dewey and crackers here in department without any further emesis. Will transfer patient to dialysis clinic for her dialysis session. Discussed return instructions with her she verbalizes understanding. HPI General Mode of arrival: EMS. Date/Time Provider Initiated Documentation: 08/19/20 08:32. Limitations to Documentation: no limitations. Information obtained by: patient, EMS and RN notes reviewedFor couple days so. HPI Narrative: 75-year-old female with history of renal failure on dialysis presents to the ER via EMS with nausea vomiting which began this morning. Patient states that she was out in heat yesterday may have overexerted herself. Upon arrival she is hypoxic at 88% on room air. She is placed on 2 L nasal cannula now at 94%. She is reports generalized weakness. She denies any diarrhea, denies fever does have a past medical history of aortic valve replacement, hysterectomy, end-stage renal disease, heart failure, hypertension, COPD, she is still a smoker former drinker. She is alert and oriented upon arrival. Related Data Home Medications Medication Instructions Recorded Confirmed Velphoro 1,000 mg PO AC tab.chew 05/24/16 08/19/20 aspirin 81 mg PO DAILY tab-cap 05/24/16 08/19/20 albuterol sulfate [ProAir HFA] 2 puff INHALATION Q4H PRN inhaler 07/26/17 08/19/20 Aerochamber MV 01/26/19 08/19/20 Velphoro 500 mg PO PRN PRN 01/26/19 08/19/20 meclizine 12.5 mg PO PRN PRN 03/18/19 08/19/20 omeprazole 40 mg PO BID 03/18/19 08/19/20 atorvastatin 40 mg tablet 20 mg PO DAILY 10/24/19 08/19/20 minoxidil 2.5 mg tablet 5 mg PO BID 12/09/19 08/19/20 bisacodyl 5 mg tablet,delayed 5 mg PO Q3D PRN #30 tab 01/31/20 08/19/20 release ondansetron 4 mg disintegrating 4 mg PO BID PRN PRN #14 tab 01/31/20 08/19/20 tablet amoxicillin 500 mg capsule 500 mg PO BID 07/24/20 08/19/20 Previous Rx's Medication Instructions Recorded bisacodyl 5 mg tablet,delayed 5 mg PO Q3D PRN #30 tab 01/31/20 release ondansetron 4 mg disintegrating 4 mg PO BID PRN PRN #14 tab 01/31/20 tablet Allergies Allergy/AdvReac Type Severity Reaction Status Date / Time cephalexin monohydrate Allergy Severe trouble Verified 08/19/20 08:27 [From Keflex] breathing colchicine Allergy Verified 08/19/20 08:27 allopurinol AdvReac Intermediate gout Verified 08/19/20 08:27 breakout erythromycin base AdvReac Intermediate gout Verified 08/19/20 08:27 breakout oxycodone AdvReac Unknown constipatio Verified 08/19/20 08:27 n General Stated Complaint: Nausea/Vomit/Diar AWA: 2 Review of Systems Constitutional Constitutional: Reports as per HPI, Reports fatigue, Reports lethargy and Reports weakness Cardiovascular Cardiovascular: Reports as per HPI, Denies chest pain, Denies chest pain at rest, Denies leg ulcers, Denies leg edema and Reports dyspnea on exertion Respiratory Respiratory: Reports as per HPI, Denies chest congestion, Denies cough, Reports dyspnea on exertion and Denies wheezing Gastrointestinal Gastrointestinal: Denies diarrhea, Reports nausea and Reports vomiting Genitourinary Genitourinary: Reports as per HPI (Does not make urine end-stage renal disease on dialysis 3 times a week) Neurologic Neurologic: Reports weakness Endocrine Endocrine: Reports fatigue Allergic/Immunologic Allergic/Immunologic: Denies wheezing [facility] Medical History Acute bronchitis Acute respiratory failure with hypoxia Acute right-sided congestive heart failure [facility] [place] abuse Aortic stenosis Axillary lymphadenopathy Bleeding hemorrhoids (01/08/13) rectal bleeding (colon[place] [facility] [place] internal hemorrhoids and diverticuli) Cannabis dependence Central venous catheter in place (~10/29/19) [facility] [place] tube in place 05/11/16~ [facility] [place]; REMOVE SUTURES ON OR AFTER 05/14/16 CKD (chronic kidney disease) stage 5, GFR less than 15 ml/min Community acquired pneumonia COPD (chronic obstructive pulmonary disease) Critical aortic valve stenosis s/p valve repalcement CVD (cardiovascular disease) Cyst of ovary (08/20/12) Depression (09/14/12) Diverticulitis of large intestine without perforation or abscess with bleeding DNI (do not intubate) DNR (do not resuscitate) ESRD on dialysis Essential hypertension (01/16/13) severe and labile Gallstones Gastroesophageal reflux disease with esophagitis (02/03/15) Hyperkalemia Hyperlipidemia Hyperparathyroidism, unspecified (02/09/11) 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[facility] [place] arm cellulitis assisted current use of anticoagulant therapy Macular degeneration of left eye (~10/17/19) [facility] [place] Nail dystrophy Other psychoactive substance abuse, uncomplicated Palliative care patient POLST (Physician Orders for Life-Sustaining Treatment) COLST completed 02/13/2020, DNR/DNI. Recurrent urinary tract infection Renal failure 2010 transplant failed, back on dialysis 1997-renal transplant left pelvis; renal insuff. Right foot injury (10/19/16) Right heart failure Secondary hyperparathyroidism (of renal origin) Shoulder pain, right continue with tylenol as needed/warmth call if not getting better Smoker Tinea cruris Tricuspid regurgitation s/p tricuspid valve replacement 02/2020 Umbilical hernia repaired 1995,1997,2001,2003 Upper GI bleed (05/17/14) 05/15/14 [facility] [place], [place], esophagitis, gastric ulcer and duodenitis Ventral hernia Wound infection after surgery Surgical History Abdominal hysterectomy (~2006) s/p hyst, but cervix still present and needs yearly PAP due to transplant H/O aortic valve replacement History of kidney transplant Repair of umbilical hernia 1995,1997,2001,2003 TRANSPLANT, KIDNEY (~1997) LEFT Family History Mother Essential hypertension Personal history of malignant neoplasm KIDNEY Heart disease Pulmonary emphysema Father Personal history of malignant neoplasm Pulmonary emphysema Brother Hyperlipidemia Brother Hyperlipidemia Brother No problems noted. Social History Smoking/Tobacco Use Status: Current-Occasional Tobacco Type: cigarettes Smoking risk assessment performed?: Yes Alcohol Intake: former Drug use: Daily Substance use type: marijuana Current gender identity: female Do you feel safe at home: Yes Do you feel safe in your relationship?: Yes Exam Narrative Exam Narrative: Constitutional: Alert and oriented x3. Appears older than stated age. Appears sickly. Normal body habitus. Head: Normocephalic, no trauma. Eyes: Pupils PERRLA, Red reflex noted, EOM's intact. Eyelids symmetrical without lesions, discharge, or swelling. ENT: Bilateral TM's WNL, External ear normal to inspection, no mastoid TTP, swelling, or erythema, Nasal turbinates WNL, no nasal discharge. Normal dentition, Posterior pharynx WNL, no exudate. Chest: RRR, Normal S1, S2, distal pulses intact. Dialysis shunt noted to the right anterior chest, all dialysis shunts noted to bilateral upper extremities abdomen: Soft, Resp: Lungs diminished bilaterally, no wheezes, rales, or rhonchi. Nondistended nontender with palpation Musculoskeletal: Normal gait, 5/5 strength to all four extremities. Skin: No suspicious rashes or lesions. Capillary refill less than 2 sec. Neurologic: Cranial nerves II-XII intact. Alert and oriented x 3. DTR's intact. Generalized weakness no focal neuro deficits noted. Hematologic/Lymphatic: No ecchymosis, no lymphadenopathy. Course Vital Signs Vital signs: Vital Signs Temperature 36.7 C 08/19/20 08:24 Pulse 70 08/19/20 08:24 Respiratory Rate 12 08/19/20 08:24 Blood Pressure 152/84 H 08/19/20 08:24 Pulse Oximetry 94 08/19/20 08:24 Temperature 36.7 C 08/19/20 08:24 Temperature Source Skin 08/19/20 08:24 Pulse 70 08/19/20 08:24 Respiratory Rate 12 08/19/20 08:24 Respiratory Effort Non-Labored 08/19/20 08:31 Blood Pressure 152/84 H 08/19/20 08:24 Blood Pressure Position Sitting 08/19/20 08:24 Pulse Oximetry 94 08/19/20 08:24 Oxygen Delivery Method Nasal Cannula 08/19/20 08:24 Oxygen Flow Rate 2 08/19/20 08:24 Pain Level 8 08/19/20 08:24 Comment 08/19/20 08:24
[2020-08-19 08:47] VITALS: BP 155/82; PULSE 70; PULSE 71; O2SAT 96
[2020-08-19 09:05] LABS: Abs Immature Grans 0.01 10^3/uL (0.0-0.06); Absolute Basophil Count 0.07 10^3/uL (0.0-0.2); Absolute Eosinophil Count 0.41 10^3/uL (0.0-0.7); Absolute Lymphocyte Count 0.61 10^3/uL (1.2-3.4); Absolute Monocyte Count 0.55 10^3/uL (0.1-0.8); Absolute Neutrophil Count 2.43 10^3/uL (1.2-6.7); Basophils % 1.7; HCT 37.1 % (36.0-46.0); HGB 11.4 g/dL (11.2-15.7); Immature Grans % 0.2; MCH 29.6 pg (27.0-33.0); MCHC 30.7 % (32.0-36.0); MCV 96.4 fL (80-95); MPV 12.6 fL (8.0-11.0); Monocytes % 13.5; Neutrophils % 59.6; Nucleated RBC 0 %; Platelet Count 121 10^3/uL (130-400); RBC 3.85 10^6/uL (3.93-5.22); RDW 16.2 % (11.7-14.6); RDW-SD 57.7 fL; WBC 4.08 10^3/uL (4.4-10.8)
--- NOTE | 2020-08-19 09:15 | RT.EKG_ITS ---
APPROVED REPORT Exam: Resting ECG Reason for Exam: nausea Patient Location: E HR:68 bpm ECG Measurements Heart Rate 68 AXIS FL 190 P 21 QRSd 159 QRS 101 QT 476 T -19 QTc 509 Conclusion Sinus rhythm... RBBB and LPFB. No significant change.
[2020-08-19 09:27] LABS: Diff Comment Agrees w/ Instrument
[2020-08-19 09:28] LABS: RBC Morphology Normal
[2020-08-19 09:42] LABS: ALT 22 U/L (14-59); AST 37 U/L (15-37); Albumin 3.7 g/dL (3.4-5.0); Alkaline Phosphatase 334 U/L (46-116); Anion Gap 9.6 mmol/L (3-11); BUN 49 mg/dL (7-18); Bilirubin, Total 0.8 mg/dL (0.2-1.0); CO2 28.4 mmol/L (21.0-32.0); Chloride 101 mmol/L (98-107); Estimated GFR 6.36 (mL/min/1.73m2); Glucose 85 mg/dL (74-106); Magnesium 1.9 mg/dL (1.8-2.4); Potassium 5.5 mmol/L (3.5-5.1); Sodium 139 mmol/L (136-145); Total Protein 7.7 g/dL (6.4-8.2); Troponin I < 0.05 ng/mL (<0.06)
[2020-08-19 09:48] LABS: CREATININE 6.7 mg/dL (0.55-1.02)
[2020-08-19] MEDS: Ondansetron O.D.T. 4 MG TABEF, 3 TABS/BTL PO (11:16)
== END 2020-08-19 11:15 | disposition home or self-care (01) ==
PROVIDERS: Emergency Provider Registered Nurse Emergency; PCP Family Medicine
DX: R11.2 Nausea with vomiting, unspecified (principal)
CPT/HCPCS: 80053; 93005; 99283; 71046; 83735; 84484; 85025; 93010

== ENCOUNTER 2021-02-03 13:52 | Emergency (ER) | payer MEDICARE, SELFPAY ==
--- NOTE | 2021-02-03 14:00 | DI.CT_ITS ---
Exam(s) CT CHEST/ABD/PEL W EXAM: CT CHEST/ABD/PEL W CLINICAL HISTORY: trip and fall, chest pain, rt flank pain TECHNIQUE: CT examination of the chest, abdomen, and pelvis was performed with intravenous infusion of 100 cc of Omnipaque 350. COMPARISON: CT CT ABDOMEN PELVIS W from 01/23/2020 FINDINGS: The lungs are clear. There is no pleural effusion seen. There is no mediastinal or hilar adenopathy. Pulmonary arteries are markedly dilated centrally consistent with pulmonary arterial hypertension. N o focal pulmonary embolic disease. No thoracic aortic aneurysm dissection. Note is made of coronary artery calcification. There are mitral and aortic prostheses position period there is central venou s line place the tip which lies in the right atrium.. There is a midline sternotomy. No acute fracture seen. There is hepatosplenomegaly. Liver has a nodular contour consistent with cirrhosis. There are promi nent venous collaterals in the upper abdomen consistent with portal venous hypertension. There is mo derate to severe ascites. There is cholelithiasis without evident biliary dilatation. No abnormality seen involving the spleen. Pancreas appears intact. The adrenals are unremarkable in appearance. The kidneys severely atrophic. The patient is reported ly on dialysis. Abdominal aorta and major visceral branches appear intact. No significant abdominal wall hernia seen. No significant abdominal or pelvic adenopathy. No focal bowel pathology. No evidence of appendicitis or diverticulitis. IMPRESSION: No evidence of acute process of the chest, abdomen, or pelvis. Please see multiple chronic findings in above discussion. RADIATION DOSE DELIVERED: 862.34mGy.cm Total DLP 862.34mGy.cm Total DLP 13.55mGy CTDIvol
[2021-02-03 14:04] VITALS: BP 181/86; PULSE 64; RESP 18; TEMP 36.7; O2SAT 98
[2021-02-03 14:28] LABS: Abs Immature Grans 0.04 10^3/uL (0.0-0.06); Absolute Basophil Count 0.05 10^3/uL (0.0-0.2); Absolute Eosinophil Count 0.37 10^3/uL (0.0-0.7); Absolute Lymphocyte Count 0.64 10^3/uL (1.2-3.4); Absolute Monocyte Count 0.61 10^3/uL (0.1-0.8); Absolute Neutrophil Count 3.02 10^3/uL (1.2-6.7); Basophils % 1.1; Eosinophils % 7.8; HCT 35.8 % (36.0-46.0); HGB 11.1 g/dL (11.2-15.7); Immature Grans % 0.8; Lymphocytes % 13.5; MCH 30.4 pg (27.0-33.0); MCV 98.1 fL (80-95); MPV 11.7 fL (8.0-11.0); Monocytes % 12.9; Neutrophils % 63.9; Nucleated RBC 0 %; Platelet Count 125 10^3/uL (130-400); RBC 3.65 10^6/uL (3.93-5.22); RDW 14.4 % (11.7-14.6); RDW-SD 51.4 fL; WBC 4.73 10^3/uL (4.4-10.8)
[2021-02-03 14:44] LABS: ALT 18 U/L (14-59); AST 24 U/L (15-37); Albumin 4.1 g/dL (3.4-5.0); Alkaline Phosphatase 244 U/L (46-116); Anion Gap 8.7 mmol/L (3-11); BUN 24 mg/dL (7-18); Bilirubin, Total 0.7 mg/dL (0.2-1.0); CO2 32.3 mmol/L (21.0-32.0); Calcium 8.7 mg/dL (8.5-10.1); Chloride 98 mmol/L (98-107); Estimated GFR 10.07 (mL/min/1.73m2); Glucose 74 mg/dL (74-106); Potassium 4.2 mmol/L (3.5-5.1); Sodium 139 mmol/L (136-145); Total Protein 8.1 g/dL (6.4-8.2)
[2021-02-03 14:45] LABS: CREATININE 4.5 mg/dL (0.55-1.02)
[2021-02-03] MEDS: Omnipaque 350 MG/ML 100 ML BTL IJ (15:17)
[2021-02-03] MEDS: Normal Saline Flush 10 ML SYR IVP (15:18)
--- NOTE | 2021-02-03 15:45 | ED.GENADUL_ITS ---
Discharge Plan Disposition Patient Disposition: HOME Condition: Stable Discharge Details Clinical Impression: Fall, Chest wall contusion Primary Care Provider: Chano Neves ED Provider: Justice Cooper Home Meds and New Rx's Prescriptions: Continued ondansetron 4 mg tablet,disintegrating 4 mg PO BID PRN PRN (Reason: nausea and vomiting) Qty: 14 RF: 0 bisacodyl [Dulcolax (bisacodyl)] 5 mg tablet,delayed release (DR/EC) 5 mg PO Q3D PRN (Reason: constipation) Qty: 30 RF: 3 aspirin 81 MG tablet,chewable 81 mg PO DAILY RF: 0 Velphoro 500 MG tablet,chewable 1,000 mg PO AC RF: 0 albuterol sulfate [ProAir HFA] 8.5 GM HFA aerosol inhaler 2 puff Inhalation Q4H PRN RF: 0 atorvastatin 40 mg tablet 20 mg PO DAILY RF: 0 minoxidil 2.5 mg tablet 5 mg PO BID RF: 0 omeprazole 40 mg Capsule,Delayed Release(Dr/Ec) 40 mg PO BID RF: 0 meclizine 12.5 mg Tablet 12.5 mg PO PRN PRNRF: 0 Velphoro 500 mg Tablet,Chewable 500 mg PO PRN PRNRF: 0 (DME) Aerochamber MV Spacer MISCELLANEOUS RF: 0 Discharge Instructions Instructions: Contusion in Adults (ED), Fall Prevention (ED) Additional Instructions: Please contact your primary care physician to arrange follow-up. Return to the ER for any worsening or new concerning symptoms. Referrals: Chano Neves MD [Primary Care Provider] - Discharge Data Discharge Date/Time-TO BE ENTERED AT DEPARTURE: 02/03/21 16:05 Medical Decision Making 55-year-old female with multiple medical problems presents after mechanical trip and fall with injury to her sternum and abdomen. Patient is tender over sternum as well as upper abdomen. Considered acute life-threatening intra-abdominal and intrathoracic traumatic process. CT of the chest abdomen pelvis was interpreted by radiology: No acute traumatic injury. Patient reassessed and has remained stable. She was given Tylenol for pain. All results were discussed with the patient. Usual and customary discharge instructions reviewed with the patient. Plan for discharge with outpatient followup. Lab Data Lab results reviewed: Yes I reviewed the patient's lab results. Labs: Laboratory Tests Range/Units 02/03/21 02/03/21 14:22 14:22 WBC (4.4-10.8) 10^3/uL 4.73 RBC (3.93-5.22) 10^6/uL 3.65 L Hgb (11.2-15.7) g/dL 11.1 L Hct (36.0-46.0) % 35.8 L MCV (80-95) fL 98.1 H MCH (27.0-33.0) pg 30.4 MCHC (32.0-36.0) % 31.0 L RDW (11.7-14.6) % 14.4 Plt Count (130-400) 10^3/uL 125 L MPV (8.0-11.0) fL 11.7 H Immature Gran % 0.8 Neutrophils % 63.9 Lymphocytes % 13.5 Monocytes % 12.9 Eosinophils % 7.8 Basophils % 1.1 Nucleated RBC % % 0 Absolute Neutrophils (1.2-6.7) 10^3/uL 3.02 Absolute Lymphocytes (1.2-3.4) 10^3/uL 0.64 L Absolute Monocytes (0.1-0.8) 10^3/uL 0.61 Absolute Eosinophils (0.0-0.7) 10^3/uL 0.37 Absolute Basophils (0.0-0.2) 10^3/uL 0.05 Sodium (136-145) mmol/L 139 Potassium (3.5-5.1) mmol/L 4.2 Chloride (98-107) mmol/L 98 Carbon Dioxide (21.0-32.0) mmol/L 32.3 H Anion Gap (3-11) mmol/L 8.7 BUN (7-18) mg/dL 24 H Creatinine (0.55-1.02) mg/dL 4.5 H* Estimated GFR/1.73 m2 (mL/min/1.73m2) 10.07 Glucose (74-106) mg/dL 74 Calcium (8.5-10.1) mg/dL 8.7 Total Bilirubin (0.2-1.0) mg/dL 0.7 AST (15-37) U/L 24 ALT (14-59) U/L 18 Alkaline Phosphatase (46-116) U/L 244 H Total Protein (6.4-8.2) g/dL 8.1 Albumin (3.4-5.0) g/dL 4.1 HPI General Mode of arrival: ambulatory . Date/Time Provider Initiated Documentation: 02/03/21 14:10 . Limitations to Documentation: no limitations . Information obtained by: patient . HPI Narrative: 55-year-old female with multiple medical presents with chief complaint of chest pain. Patient tripped and fell from standing position to the ground and impacted her chest. She notes moderate to severe pain in her sternal chest and upper abdomen as well as right flank. No modifiers. No associated shortness of breath. No head trauma. No neck pain or back pain. Patient notes she did not blackout during the fall. This was a mechanical fall. Related Data Home Medications Medication Instructions Recorded Confirmed Velphoro 1,000 mg PO AC tab.chew 05/24/16 02/03/21 aspirin 81 mg PO DAILY tab-cap 05/24/16 02/03/21 albuterol sulfate [ProAir HFA] 2 puff INHALATION Q4H PRN inhaler 07/26/17 02/03/21 Aerochamber MV 01/26/19 02/03/21 Velphoro 500 mg PO PRN PRN 01/26/19 02/03/21 meclizine 12.5 mg PO PRN PRN 03/18/19 02/03/21 omeprazole 40 mg PO BID 03/18/19 02/03/21 atorvastatin 40 mg tablet 20 mg PO DAILY 10/24/19 02/03/21 minoxidil 2.5 mg tablet 5 mg PO BID 12/09/19 02/03/21 bisacodyl 5 mg tablet,delayed 5 mg PO Q3D PRN #30 tab 01/31/20 02/03/21 release ondansetron 4 mg disintegrating 4 mg PO BID PRN PRN #14 tab 01/31/20 02/03/21 tablet Previous Rx's Medication Instructions Recorded bisacodyl 5 mg tablet,delayed 5 mg PO Q3D PRN #30 tab 01/31/20 release ondansetron 4 mg disintegrating 4 mg PO BID PRN PRN #14 tab 01/31/20 tablet Allergies Allergy/AdvReac Type Severity Reaction Status Date / Time cephalexin monohydrate Allergy Severe trouble Verified 02/03/21 14:07 [From Keflex] breathing colchicine Allergy Verified 02/03/21 14:07 allopurinol AdvReac Intermediate gout Verified 02/03/21 14:07 breakout erythromycin base AdvReac Intermediate gout Verified 02/03/21 14:07 breakout oxycodone AdvReac Unknown constipatio Verified 02/03/21 14:07 n General Stated Complaint: Trauma AWA: 2 Review of Systems All systems reviewed & are unremarkable except as noted in HPI and below Cardiovascular Cardiovascular: Reports as per HPI Gastrointestinal Gastrointestinal: Reports as per HPI [facility] Active Problem List Vomiting (Acute) Fall (Acute) Chest wall contusion (Acute) Spontaneous hematoma of hand (Acute) Hematoma (Acute) Subcutaneous nodules (Acute) Asthma (Chronic) Headache (Acute) Hypertension (Chronic) Elevated blood pressure, situational (Acute) Post-op bleeding (Acute) Anticoagulation adequate (Acute) Ventral hernia (Acute) Hemorrhage of arteriovenous fistula (Acute) 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 (Acute) Abdominal wall cellulitis (Acute) Palliative care patient (Acute) DNI (do not intubate) (Acute) DNR (do not resuscitate) (Acute) POLST (Physician Orders for Life-Sustaining Treatment) (Acute) Cirrhosis, alcoholic (Acute) Tricuspid regurgitation (Acute) Abdominal distension (Acute) Central venous catheter in place (Acute ~10/29/19) Abdominal pain (Acute) COPD (chronic obstructive pulmonary disease) (Chronic) ESRD on dialysis (Chronic) Gastroenteritis (Acute) Headache (Acute) Chest pain (Acute) Shoulder pain, right (Acute) Gallstones (Acute) Depression (Acute 08/28/14) Exertional dyspnea (Acute) COPD (chronic obstructive pulmonary disease) (Acute) Hypertensive urgency (Acute) End stage renal disease (Chronic) Medical History Acute bronchitis Acute respiratory failure with hypoxia Acute right-sided congestive heart failure [facility] [place]-05/12/17 Alcohol abuse Aortic stenosis Axillary lymphadenopathy Bleeding hemorrhoids (01/08/13) rectal bleeding (colonoscopy [facility] [place] 01/01/13 internal hemorrhoids and diverticuli) Cannabis dependence Chest tube in place 05/11/16~ [facility] [place] AV REPLACEMENT TUBE; REMOVE SUTURES ON OR AFTER 05/14/16 CKD (chronic kidney disease) stage 5, GFR less than 15 ml/min Community acquired pneumonia COPD (chronic obstructive pulmonary disease) Critical aortic valve stenosis s/p valve repalcement CVD (cardiovascular disease) Cyst of ovary (08/20/12) Depression (09/14/12) Diverticulitis of large intestine without perforation or abscess with bleeding Essential hypertension (01/16/13) severe and labile Gastroesophageal reflux disease with esophagitis (02/03/15) Hyperkalemia Hyperlipidemia Hyperparathyroidism, unspecified (02/09/11) 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[facility] [place] Left arm cellulitis Macular degeneration of left eye (~10/17/19) [facility] [place] Nail dystrophy Other psychoactive substance abuse, uncomplicated Recurrent urinary tract infection Renal failure 2010 transplant failed, back on dialysis 1997-renal transplant left pelvis; renal insuff. Right foot injury (10/19/16) Right heart failure Secondary hyperparathyroidism (of renal origin) Smoker Tinea cruris Umbilical hernia repaired 1995,1997,2001,2003 Upper GI bleed (05/17/14) 05/15/14 [facility] [place] EGD, HH, esophagitis, gastric ulcer and duodenitis Wound infection after surgery Surgical History Abdominal hysterectomy (~2006) s/p hyst, but cervix still present and needs yearly PAP due to transplant H/O aortic valve replacement History of kidney transplant Repair of umbilical hernia 1995,1997,2001,2003 TRANSPLANT, KIDNEY (~1997) LEFT Family History Mother Essential hypertension Personal history of malignant neoplasm KIDNEY Heart disease Pulmonary emphysema Father Personal history of malignant neoplasm Pulmonary emphysema Brother Hyperlipidemia Brother Hyperlipidemia Brother No problems noted. Social History Smoking/Tobacco Use Status: Current-Occasional Tobacco Type: cigarettes Smoking risk assessment performed?: Yes Alcohol Intake: former Drug use: Daily Substance use type: marijuana Current gender identity: female Do you feel safe at home: Yes Do you feel safe in your relationship?: Yes Exam Const General: cooperative and no acute distress HENMT Mouth: moist mucous membranes Eyes Conjunctivae: normal conjunctivae Sclera: normal sclerae Neck Neck: trachea midline and supple Chest Chest: tenderness sternum Resp Auscultation: clear to auscultation bilaterally, no rales, no rhonchi and no wheezes Cardio Rate: regular rate and not tachycardic Rhythm: regular rhythm GI Palpation: soft, firm, no guarding, no masses and tender in the epigastrum Back/Spine/Pelvis Cervical Spine: cervical ROM normal, No cervical spinal tenderness and No step off deformity Thoracic/Lumbar Spine: No thoracic spinal tenderness and No lumbar spinal tende rness Skin General skin exam: no rashes or lesions noted Neuro General: patient alert, patient awake, patient oriented x3 and tone normal Extrem General: no edema Psych Appearance: grossly normal Mental Status: mental status grossly normal Speech and Movement: speech and movement normal Course Vital Signs Vital signs: Vital Signs Temperature 36.7 C 02/03/21 14:04 Pulse 64 02/03/21 14:04 Respiratory Rate 18 02/03/21 14:04 Blood Pressure 181/86 H 02/03/21 14:04 Pulse Oximetry 98 02/03/21 14:04 Temperature 36.7 C 02/03/21 14:04 Temperature Source Temporal Artery Scan 02/03/21 14:04 Pulse 64 02/03/21 14:04 Respiratory Rate 18 02/03/21 14:04 Respiratory Effort Non-Labored 02/03/21 14:27 Respiratory Depth Normal 02/03/21 14:27 Respiratory Pattern Normal 02/03/21 14:27 Blood Pressure 181/86 H 02/03/21 14:04 Pulse Oximetry 98 02/03/21 14:04 Oxygen Delivery Method Room Air 02/03/21 14:04 Oxygen Flow Rate 0 02/03/21 14:04 Pain Level 8 02/03/21 14:04 Lab/Test Results Lab/Test Results: Laboratory Tests Range/Units 02/03/21 02/03/21 14:22 14:22 WBC (4.4-10.8) 10^3/uL 4.73 RBC (3.93-5.22) 10^6/uL 3.65 L Hgb (11.2-15.7) g/dL 11.1 L Hct (36.0-46.0) % 35.8 L MCV (80-95) fL 98.1 H MCH (27.0-33.0) pg 30.4 MCHC (32.0-36.0) % 31.0 L RDW (11.7-14.6) % 14.4 Plt Count (130-400) 10^3/uL 125 L MPV (8.0-11.0) fL 11.7 H Immature Gran % 0.8 Neutrophils % 63.9 Lymphocytes % 13.5 Monocytes % 12.9 Eosinophils % 7.8 Basophils % 1.1 Nucleated RBC % % 0 Absolute Neutrophils (1.2-6.7) 10^3/uL 3.02 Absolute Lymphocytes (1.2-3.4) 10^3/uL 0.64 L Absolute Monocytes (0.1-0.8) 10^3/uL 0.61 Absolute Eosinophils (0.0-0.7) 10^3/uL 0.37 Absolute Basophils (0.0-0.2) 10^3/uL 0.05 Sodium (136-145) mmol/L 139 Potassium (3.5-5.1) mmol/L 4.2 Chloride (98-107) mmol/L 98 Carbon Dioxide (21.0-32.0) mmol/L 32.3 H Anion Gap (3-11) mmol/L 8.7 BUN (7-18) mg/dL 24 H Creatinine (0.55-1.02) mg/dL 4.5 H* Estimated GFR/1.73 m2 (mL/min/1.73m2) 10.07 Glucose (74-106) mg/dL 74 Calcium (8.5-10.1) mg/dL 8.7 Total Bilirubin (0.2-1.0) mg/dL 0.7 AST (15-37) U/L 24 ALT (14-59) U/L 18 Alkaline Phosphatase (46-116) U/L 244 H Total Protein (6.4-8.2) g/dL 8.1 Albumin (3.4-5.0) g/dL 4.1
[2021-02-03 16:06] VITALS: BP 124/80; PULSE 61; RESP 18; TEMP 36.7; O2SAT 95
[2021-02-03] MEDS: Acetaminophen 325 MG TAB PO (16:06)
== END 2021-02-03 16:05 | disposition home or self-care (01) ==
PROVIDERS: Emergency Provider Student in an Organized Health Care Education/Training Program; PCP Family Medicine
DX: S20.214A Contusion of middle front wall of thorax, initial encounter (principal); R10.9 Unspecified abdominal pain; W01.0XXA Fall on same level from slipping, tripping and stumbling without subsequent striking against object, initial encounter
CPT/HCPCS: 74177; 80053; 99285; 71260; 85025; 99284; J3490

== ENCOUNTER 2021-02-16 19:20 | Outpatient (REF) | payer MEDICARE, SELFPAY ==
[2021-02-18 14:06] LABS: COVID-19 RT-PCR UVMMC Result Negative (Negative)
== END 2021-02-16 19:21 | disposition home or self-care (01) ==
LOC: LBN 19:20
PROVIDERS: PCP Family Medicine; Visit Provider Family Medicine
DX: Z20.822 Contact with and (suspected) exposure to COVID-19 (principal); R50.9 Fever, unspecified
CPT/HCPCS: U0003

== ENCOUNTER 2021-03-16 18:45 | Outpatient (REF) | payer MEDICARE, SELFPAY ==
[2021-03-18 01:18] LABS: COVID-19 RT-PCR UVMMC Result Negative (Negative)
== END 2021-03-16 18:46 | disposition home or self-care (01) ==
LOC: LBN 18:45
PROVIDERS: PCP Family Medicine; Visit Provider Internal Medicine Hematology & Oncology
DX: Z20.822 Contact with and (suspected) exposure to COVID-19 (principal)
CPT/HCPCS: U0003; U0005

== ENCOUNTER 2021-03-20 16:17 | Emergency (ER) | payer MEDICARE, OTHER, SELFPAY ==
[2021-03-20] VITALS (37 sets, daily range): BP systolic 96–132; BP diastolic 50–75; PULSE 67–93; RESP 14–26; TEMP 36.9; O2SAT 84–100
--- NOTE | 2021-03-20 16:15 | RT.EKG_ITS ---
APPROVED REPORT Exam: Resting ECG Reason for Exam: SOB Patient Location: E HR:73 bpm ECG Measurements Heart Rate 73 AXIS NV 215 P 58 QRSd 164 QRS 86 QT 470 T -11 QTc 517 Conclusion Sinus rhythm Prolonged NV interval. Right bundle branch block, Similar to previous.
--- NOTE | 2021-03-20 16:45 | DI.RAD_ITS ---
Exam(s) XR PORTABLE CHEST AP EXAM: XR PORTABLE CHEST AP CLINICAL HISTORY: shortness of breath TECHNIQUE: 2D digital imaging was performed. COMPARISON: CR XR CHEST 2V PA LATERAL from 08/19/[address] CHEST/ABD/PEL W from 02/03/2021 FINDINGS: LUNGS: Minimal blunting at the costophrenic angles. Vascular prominence. HEART: Markedly enlarged. Valve prosthesis. Central venous catheter unchanged with tip in right atrium. BONES: Sternal wires. IMPRESSION: Cardiomegaly and mild CHF. DATA REPOSITORY: RADIATION DOSE DELIVERED:
[2021-03-20 17:06] LABS: Abs Immature Grans 0.05 10^3/uL (0.0-0.06); Absolute Basophil Count 0.04 10^3/uL (0.0-0.2); Absolute Eosinophil Count 0.31 10^3/uL (0.0-0.7); Absolute Lymphocyte Count 0.61 10^3/uL (1.2-3.4); Absolute Monocyte Count 0.49 10^3/uL (0.1-0.8); Absolute Neutrophil Count 2.06 10^3/uL (1.2-6.7); Basophils % 1.1; Eosinophils % 8.7; HCT 33.9 % (36.0-46.0); HGB 10.6 g/dL (11.2-15.7); Immature Grans % 1.4; Lymphocytes % 17.1; MCH 30.5 pg (27.0-33.0); MCHC 31.3 % (32.0-36.0); MCV 97.4 fL (80-95); MPV 13.4 fL (8.0-11.0); Monocytes % 13.8; Neutrophils % 57.9; Nucleated RBC 0 %; Platelet Count 99 10^3/uL (130-400); RBC 3.48 10^6/uL (3.93-5.22); RDW 14.4 % (11.7-14.6); RDW-SD 51.8 fL; WBC 3.56 10^3/uL (4.4-10.8)
--- NOTE | 2021-03-20 17:18 | ED.GENADUL_ITS ---
Discharge Plan Disposition Patient Disposition: [facility] Condition: Critical Discharge Details Clinical Impression: COPD (chronic obstructive pulmonary disease), ESRD on dialysis, CHF (congestive heart failure), Respiratory failure ED Provider: Aarti Peralta Home Meds and New Rx's Prescriptions: No Action ondansetron 4 mg tablet,disintegrating 4 mg PO BID PRN PRN (Reason: nausea and vomiting) Qty: 14 RF: 0 bisacodyl [Dulcolax (bisacodyl)] 5 mg tablet,delayed release (DR/EC) 5 mg PO Q3D PRN (Reason: constipation) Qty: 30 RF: 3 Spiriva with HandiHaler 18 mcg capsule, w/inhalation device 1 cap inhalation DAILY Qty: 1 RF: 0 albuterol sulfate 2.5 mg /3 mL (0.083 %) solution for nebulization 2.5 mg inhalation Q6H PRN (Reason: shortness of breath or wheezing) Qty: 3 RF: 0 codeine-guaifenesin 10-100 mg/5 mL liquid See Rx Instructions PO Q6H PRN (Reason: cough) Qty: 120 RF: 0 azithromycin 250 mg tablet 250 - 500 mg PO DAILY Qty: 6 RF: 0 aspirin 81 MG tablet,chewable 81 mg PO DAILY RF: 0 Velphoro 500 MG tablet,chewable 1,000 mg PO AC RF: 0 albuterol sulfate [ProAir HFA] 8.5 GM HFA aerosol inhaler 2 puff Inhalation Q4H PRN RF: 0 atorvastatin 40 mg tablet 20 mg PO DAILY RF: 0 minoxidil 2.5 mg tablet 5 mg PO BID RF: 0 omeprazole 40 mg Capsule,Delayed Release(Dr/Ec) 40 mg PO BID RF: 0 meclizine 12.5 mg Tablet 12.5 mg PO PRN PRNRF: 0 Velphoro 500 mg Tablet,Chewable 500 mg PO PRN PRNRF: 0 (DME) Aerochamber MV Spacer MISCELLANEOUS RF: 0 Medical Decision Making Patient presentation is likely predominantly COPD but does appear to be volume overloaded with peripheral edema Anuric Dyspneic with speech and position change, hypoxic off oxygen, not currently oxygen dependent, 86% on room air Feels symptomatic improvement after 3 DuoNeb administration, initially had CPR For approximately 20 minutes in route to the hospital, on room air 2 L on reassessment CODE STATUS DNR/DNI confirmed with patient Covid negative x2, negative PCR today, negative BCR yesterday reportedly Low suspicion for pulmonary embolism given presentation similar to prior COPD exacerbations in the past, evidence of vascular congestion on chest x-ray, consistent with prior, BNP consistent prior, 35,000, troponin 83 strain induced Received 125 of Solu-Medrol and 3 DuoNeb treatments, dose of doxycycline 100 mg for COPD exacerbation No chest pain at this time, nonpleuritic pain EKG baseline for patient when compared to prior Electrolytes stable, last dialysis Monday per patient Did have episode of epistaxis, no active bleeding at this time, facemask applied with humidified oxygen, tolerating this well Case discussed with [facility], Dr. Neves, admitting hospitalist They are graciously able to accept this patient is not a candidate for Lasix given that patient is anuric symptomatically improved after COPD intervention but still in respiratory failure, with oxygen supplementation necessary needing admission In transfer as we do not have dialysis capability at this hospital for COPD exacerbation likely complicated with CHF exacerbation, I did not administer BiPAP as it would not be necessary during my clinical assessment No indication for emergent dialysis at time of my assessment but would likely benefit from dialysis sooner than Monday At this time, patient is stable for transfer to the [facility] in [place], she has been accepted by Dr. Neves, and pending transport at this time, she is agreeable to transport Medical Records Medical records reviewed: Yes I reviewed the patient's medical records. Lab Data Lab results reviewed: Yes I reviewed the patient's lab results. HPI General Mode of arrival: ambulatory . Date/Time Provider Initiated Documentation: 03/20/21 16:24 . Limitations to Documentation: no limitations . Information obtained by: patient . HPI Narrative: This 65-year-old female with history of hypertension, renal failure and dialysis dependent, alcoholic cirrhosis, COPD, presents with report of cough, subjective fever, and shortness of breath for the past week. Does smoke tobacco on a daily basis. Denies any new calf pain or swelling. Denies any significant weight gain. Does not drink alcohol currently. Denies any associated chest discomfort. Denies history of pulmonary embolism. States her symptoms are consistent with a COPD exacerbation. Has been using inhalers at home. Prior to arrival, she was given a DuoNeb and placed on CPAP in route by EMS and had symptomatic improvement. Denies any falls or injuries. Denies any insomnia. Has not been on a steroid or antibiotics recently reportedly. Did have a recent Covid exposure, tested negative yesterday per patient. Related Data Home Medications Medication Instructions Recorded Confirmed Velphoro 1,000 mg PO AC tab.chew 05/24/16 03/20/21 aspirin 81 mg PO DAILY tab-cap 05/24/16 03/20/21 albuterol sulfate [ProAir HFA] 2 puff INHALATION Q4H PRN inhaler 07/26/17 03/20/21 Aerochamber MV 01/26/19 03/20/21 Velphoro 500 mg PO PRN PRN 01/26/19 03/20/21 meclizine 12.5 mg PO PRN PRN 03/18/19 03/20/21 omeprazole 40 mg PO BID 03/18/19 03/20/21 atorvastatin 40 mg tablet 20 mg PO DAILY 10/24/19 03/20/21 minoxidil 2.5 mg tablet 5 mg PO BID 12/09/19 03/20/21 bisacodyl 5 mg tablet,delayed 5 mg PO Q3D PRN #30 tab 01/31/20 03/20/21 release ondansetron 4 mg disintegrating 4 mg PO BID PRN PRN #14 tab 01/31/20 03/20/21 tablet albuterol sulfate 2.5 mg INHALATION Q6H PRN #3 ml 02/16/21 03/20/21 tiotropium bromide 18 mcg capsule 1 cap INHALATION DAILY #1 inh 02/16/21 03/20/21 with inhalation device azithromycin 250 mg tablet 250 - 500 mg PO DAILY #6 tab 03/16/21 03/20/21 codeine 10 mg-guaifenesin 100 mg/5 See Rx Instructions PO Q6H PRN 03/16/21 03/20/21 mL oral liquid #120 ml Previous Rx's Medication Instructions Recorded bisacodyl 5 mg tablet,delayed 5 mg PO Q3D PRN #30 tab 01/31/20 release ondansetron 4 mg disintegrating 4 mg PO BID PRN PRN #14 tab 01/31/20 tablet albuterol sulfate 2.5 mg INHALATION Q6H PRN #3 ml 02/16/21 tiotropium bromide 18 mcg capsule 1 cap INHALATION DAILY #1 inh 02/16/21 with inhalation device azithromycin 250 mg tablet 250 - 500 mg PO DAILY #6 tab 03/16/21 codeine 10 mg-guaifenesin 100 mg/5 See Rx Instructions PO Q6H PRN 03/16/21 mL oral liquid #120 ml Allergies Allergy/AdvReac Type Severity Reaction Status Date / Time cephalexin monohydrate Allergy Severe trouble Verified 03/20/21 16:30 [From Keflex] breathing colchicine Allergy Verified 03/20/21 16:30 allopurinol AdvReac Intermediate gout Verified 03/20/21 16:30 breakout erythromycin base AdvReac Intermediate gout Verified 03/20/21 16:30 breakout General Stated Complaint: SOB AWA: 2 Review of Systems All systems reviewed & are unremarkable except as noted in HPI and below PFSH All Active Problems (Updated 03/20/21 @ 21:07 by SHIRA Pepper) CHF (congestive heart failure) (Chronic) Respiratory failure (Acute) Exposure to COVID-19 virus (Acute) Personal history of nicotine dependence (Acute) 02/2021 Aortic valve replaced (Acute) Bovine-with [facility] Hypertension (Chronic) Ventral hernia (Acute) Hemorrhage of arteriovenous fistula (Acute) Abdominal wall cellulitis (Acute) Palliative care patient (Acute) DNI (do not intubate) (Acute) DNR (do not resuscitate) (Acute) POLST (Physician Orders for Life-Sustaining Treatment) (Acute) COLST completed 02/13/2020, DNR/DNI. Cirrhosis, alcoholic (Acute) Tricuspid regurgitation (Acute) s/p tricuspid valve replacement 02/2020, bovine Central venous catheter in place (Acute ~10/29/19) [facility] [place], right subclavian-dialysis COPD (chronic obstructive pulmonary disease) (Chronic) Pulmonary at [facility] ESRD on dialysis (Chronic) On hemodialysis currently using central catheter-nephrology at [facility] receives dialysis at [facility] Gallstones (Acute) Depression (Acute 08/28/14) COPD (chronic obstructive pulmonary disease) (Acute) End stage renal disease (Chronic) Medical History (Updated 03/20/21 @ 21:07 by SHIRA Pepper) Acute bronchitis Acute respiratory failure with hypoxia Acute right-sided congestive heart failure [facility] [place]-05/12/17 Alcohol abuse Aortic stenosis Axillary lymphadenopathy Bleeding hemorrhoids (01/08/13) rectal bleeding (colonoscopy [facility] [place] 01/01/13 internal hemorrhoids and diverticuli) Cannabis dependence Chest tube in place 05/11/16~ [facility] [place] AV REPLACEMENT TUBE; REMOVE SUTURES ON OR AFTER 05/14/16 CKD (chronic kidney disease) stage 5, GFR less than 15 ml/min Community acquired pneumonia COPD (chronic obstructive pulmonary disease) Critical aortic valve stenosis s/p valve repalcement CVD (cardiovascular disease) Cyst of ovary (08/20/12) Depression (09/14/12) Diverticulitis of large intestine without perforation or abscess with bleeding Essential hypertension (01/16/13) severe and labile Gastroesophageal reflux disease with esophagitis (02/03/15) Hyperkalemia Hyperlipidemia Hyperparathyroidism, unspecified (02/09/11) 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[facility] [place] Left arm cellulitis Macular degeneration of left eye (~10/17/19) [facility] [place] Nail dystrophy Other psychoactive substance abuse, uncomplicated Recurrent urinary tract infection Renal failure 2010 transplant failed, back on dialysis 1997-renal transplant left pelvis; renal insuff. Right foot injury (10/19/16) Right heart failure Secondary hyperparathyroidism (of renal origin) Smoker Tinea cruris Umbilical hernia repaired 1995,1997,2001,2003 Upper GI bleed (05/17/14) 05/15/14 [facility] [place] EGD, HH, esophagitis, gastric ulcer and duodenitis Wound infection after surgery Surgical History (Updated 02/16/21 @ 14:45 by Rubens Amaya MD) Abdominal hysterectomy (~2006) s/p hyst, but cervix still present and needs yearly PAP due to transplant H/O aortic valve replacement History of kidney transplant Repair of umbilical hernia 1995,1997,2001,2003 TRANSPLANT, KIDNEY (~1997) LEFT Family History Mother Essential hypertension Personal history of malignant neoplasm KIDNEY Heart disease Pulmonary emphysema Father Personal history of malignant neoplasm Pulmonary emphysema Brother Hyperlipidemia Brother Hyperlipidemia Brother No problems noted. Social History Smoking/Tobacco Use Status: Current-Occasional Tobacco Type: cigarettes Smoking risk assessment performed?: Yes Alcohol Intake: former Drug use: Daily Substance use type: marijuana Current gender identity: female Do you feel safe at home: Yes Do you feel safe in your relationship?: Yes Exam Const General: cooperative, frail appearing and ill appearing HENMT Other: Scant bleeding from left nare, uvula midline, moist mucous membranes Eyes Pupils: PERRL Chest Chest: no crepitus Resp Effort & Inspection: tachypneic Auscultation: diminished lung sounds and rhonchi Cardio Rate: regular rate Heart Sounds: murmur GI Other: No abdominal tenderness Skin General skin exam: no rashes or lesions noted Neuro General: patient alert and patient oriented x3 Speech: speech normal Sensory Exam: sensory deficits noted Extrem Other: 2+ edema to bilateral lower extremities Doppler pulses positive to bilateral lower extremities No calf tenderness Course Vital Signs Vital signs: Vital Signs Respiratory Rate 24 03/20/21 16:20 Temperature 36.9 C 03/20/21 16:21 Temperature Source Skin 03/20/21 16:21 Pulse 72 03/20/21 16:22 Pulse 79 03/20/21 16:30 Respiratory Rate 19 03/20/21 16:30 Respiratory Effort 03/20/21 16:39 Respiratory Depth Normal 03/20/21 16:39 Respiratory Pattern Normal 03/20/21 16:39 Blood Pressure 119/67 03/20/21 16:22 Blood Pressure Mean 76 03/20/21 16:22 Blood Pressure Position Supine 03/20/21 16:21 Pulse Oximetry 96 03/20/21 16:30 Oxygen Delivery Method Room Air 03/20/21 16:21 Oxygen Flow Rate 0 03/20/21 16:21 Pain Level 5 03/20/21 16:21 Lab/Test Results Lab/Test Results: Laboratory Tests Range/Units 03/20/21 16:34 WBC (4.4-10.8) 10^3/uL 3.56 L RBC (3.93-5.22) 10^6/uL 3.48 L Hgb (11.2-15.7) g/dL 10.6 L Hct (36.0-46.0) % 33.9 L MCV (80-95) fL 97.4 H MCH (27.0-33.0) pg 30.5 MCHC (32.0-36.0) % 31.3 L RDW (11.7-14.6) % 14.4 Plt Count (130-400) 10^3/uL 99 L MPV (8.0-11.0) fL 13.4 H Immature Gran % 1.4 Neutrophils % 57.9 Lymphocytes % 17.1 Monocytes % 13.8 Eosinophils % 8.7 Basophils % 1.1 Nucleated RBC % % 0 Absolute Neutrophils (1.2-6.7) 10^3/uL 2.06 Absolute Lymphocytes (1.2-3.4) 10^3/uL 0.61 L Absolute Monocytes (0.1-0.8) 10^3/uL 0.49 Absolute Eosinophils (0.0-0.7) 10^3/uL 0.31 Absolute Basophils (0.0-0.2) 10^3/uL 0.04 Critical Care Time Critical Care Time Critical Care Time: Yes Total Critical Care Time: 60 Attestation: IV Solu-Medrol, DuoNeb x3, telemetry monitoring, IV access, diagnostic labs, diagnostic imaging, supplemental oxygen, transfer to higher level of care
[2021-03-20 17:21] LABS: ALT 27 U/L (14-59); AST 45 U/L (15-37); Albumin 4.2 g/dL (3.4-5.0); Alkaline Phosphatase 243 U/L (46-116); Anion Gap 8.1 mmol/L (3-11); BUN 19 mg/dL (7-18); Bilirubin, Total 0.9 mg/dL (0.2-1.0); CO2 30.9 mmol/L (21.0-32.0); Calcium 8.2 mg/dL (8.5-10.1); Chloride 97 mmol/L (98-107); Estimated GFR 9.58 (mL/min/1.73m2); Glucose 103 mg/dL (74-106); Magnesium 1.8 mg/dL (1.8-2.4); Potassium 3.9 mmol/L (3.5-5.1); Sodium 136 mmol/L (136-145); Total Protein 8.3 g/dL (6.4-8.2)
[2021-03-20 17:23] LABS: CREATININE 4.7 mg/dL (0.55-1.02)
[2021-03-20 17:24] LABS: Troponin I 83 ng/L (<or=60)
--- NOTE | 2021-03-20 17:24 | DI.VRAD_ITS ---
PROCEDURE INFORMATION: Exam: XR Chest Exam date and time: 03/20/2021 4:57 PM Age: 55 years old Clinical indication: Shortness of breath TECHNIQUE: Imaging protocol: XR of the chest. Views: 1 view. COMPARISON: CT CHEST/ABD/PEL W 02/03/2021 3:16 PM FINDINGS: Tubes, catheters and devices: Sternal wires. Right-sided approach central venous catheter terminates over the right atrium. Lungs: Pulmonary vascular prominence. No convincing consolidation. Pleural spaces: Trace bilateral pleural effusions. No pneumothorax. Heart/Mediastinum: Cardiac silhouette is enlarged. Prosthetic heart valve. Bones/joints: No acute displaced fracture. IMPRESSION: Findings most suggestive of mild pulmonary edema. Dictated and Authenticated by: Dipak Elkins MD. Ordering:FELA Broussard MD
[2021-03-20] MEDS: methylPREDNISolone SUCC 125 MG VIAL IVP (17:26)
[2021-03-20] MEDS: Albuterol/Ipratropium 3 ML UPD VIAL UPD ×2 (17:26)
[2021-03-20 17:27] LABS: Source Nasal/Nares
[2021-03-20 17:53] LABS: NT-proBNP > 35000 pg/mL (<300)
[2021-03-20 18:05] LABS: COVID-19 PCR Negative (Negative)
[2021-03-20 18:58] LABS: BE (Venous) 5 mmol/L (-2-3); HCO3 (Venous) 31 mmol/L (23-28); O2 Sat (Venous) 89 %; TCO2 (Venous) 29 mmol/L (24-29); pCO2 (Venous) 59 mmHg (41-51); pH (Venous) 7.33 (7.31-7.41); pO2 (Venous) 57 mmHg
[2021-03-20 18:59] LABS: Lactate 0.5 mmol/L (0.6-1.4)
[2021-03-20] MEDS: Doxycycline Hyclate 100 MG CAP PO (19:37)
[2021-03-20 20:08] LABS: Troponin I 85 ng/L (<or=60)
== END 2021-03-20 20:21 | disposition short-term general hospital (02) ==
PROVIDERS: Emergency Provider Physician Assistant; PCP Family Medicine
DX: J44.1 Chronic obstructive pulmonary disease with (acute) exacerbation (principal); J96.01 Acute respiratory failure with hypoxia; I13.2 Hypertensive heart and chronic kidney disease with heart failure and with stage 5 chronic kidney disease, or end stage renal disease; N18.6 End stage renal disease; I50.9 Heart failure, unspecified; Z99.2 Dependence on renal dialysis
CPT/HCPCS: 36415; 80053; 82805; 87635; 93005; 94640; 96374; 99291; 71045; 83605; 83735; 83880; 84100; 84484; 85025; 93010; J2930; J7620

== ENCOUNTER 2021-04-19 15:02 | Emergency (ER) | payer MEDICARE, OTHER, SELFPAY ==
--- NOTE | 2021-04-19 15:00 | DI.RAD_ITS ---
Exam(s) XR PORTABLE CHEST AP EXAM: XR PORTABLE CHEST AP CLINICAL HISTORY: cough, hx COPD, ? covid exposure. TECHNIQUE: 2D digital imaging was performed. COMPARISON: CR XR CHEST 2V PA LATERAL from 08/19/2020 CR,XR XR PORTABLE CHEST AP from 03/20/2021 FINDINGS: Distal tip of the right dialysis catheter is in the mid-lower right atrium. Sternotomy wires and cardiomegaly as well as prosthetic cardiac valve is a are again noted. There ar e 2 prosthetic valves. One mitral and the other aortic. Cardiomegaly again noted. Mediastinum unchanged. Pulmonary venous hypertension pattern no jenny air space pulmonary edema. Blunting of the right costophrenic angle indicates a small amount of right pl eural fluid not a new finding. IMPRESSION: Dialysis catheter. Cardiomegaly. Prosthetic mitral and aortic valves. Pulmonary venous hypertensio n pattern. Small right pleural effusion. No prominent airspace pulmonary edema. Minimal radiograph ic change compared to August 2020. DATA REPOSITORY: RADIATION DOSE DELIVERED: All CT scans at this facility use at least one of these dose optimization techniques: automated exposure control; mA and/or kV adjustment per patient size (includes targeted e xams where dose is matched to clinical indication); or iterative reconstruction.
[2021-04-19 15:07] VITALS: BP 143/84; PULSE 73; RESP 18; TEMP 36.7; O2SAT 94
--- NOTE | 2021-04-19 15:26 | W.ED.GENAD ---
Discharge Plan Disposition Patient Disposition: HOME Condition: Improving Discharge Details Clinical Impression: Exposure to COVID-19 virus Primary Care Provider: Chano Neves ED Provider: Kirt Sky Home Meds and New Rx's Prescriptions: Continued ondansetron 4 mg tablet,disintegrating 4 mg PO BID PRN PRN (Reason: nausea and vomiting) Qty: 14 RF: 0 bisacodyl [Dulcolax (bisacodyl)] 5 mg tablet,delayed release (DR/EC) 5 mg PO Q3D PRN (Reason: constipation) Qty: 30 RF: 3 Spiriva with HandiHaler 18 mcg capsule, w/inhalation device 1 cap inhalation DAILY Qty: 1 RF: 0 albuterol sulfate 2.5 mg /3 mL (0.083 %) solution for nebulization 2.5 mg inhalation Q6H PRN (Reason: shortness of breath or wheezing) Qty: 3 RF: 0 codeine-guaifenesin 10-100 mg/5 mL liquid See Rx Instructions PO Q6H PRN (Reason: cough) Qty: 120 RF: 0 azithromycin 250 mg tablet 250 - 500 mg PO DAILY Qty: 6 RF: 0 aspirin 81 MG tablet,chewable 81 mg PO DAILY RF: 0 Velphoro 500 MG tablet,chewable 1,000 mg PO AC RF: 0 albuterol sulfate [ProAir HFA] 8.5 GM HFA aerosol inhaler 2 puff Inhalation Q4H PRN RF: 0 atorvastatin 40 mg tablet 20 mg PO DAILY RF: 0 minoxidil 2.5 mg tablet 5 mg PO BID RF: 0 omeprazole 40 mg Capsule,Delayed Release(Dr/Ec) 40 mg PO BID RF: 0 meclizine 12.5 mg Tablet 12.5 mg PO PRN PRNRF: 0 Velphoro 500 mg Tablet,Chewable 500 mg PO PRN PRNRF: 0 (DME) Aerochamber MV Spacer MISCELLANEOUS RF: 0 Discharge Instructions Instructions: Droplet Precautions (ED), COVID-19: Slow the Coronavirus Spread (ED) Additional Instructions: We will call you with results of your COVID test. You also underwent Chest XRay today. Continue careful mask use, and quarantine until test results. Return at any time fore repeat evaluation. Stand Alone Forms: PENDING COVID-19 TESTING Medical Decision Making [id number], known to me from previous visits. Her chronic medical problems have been stable, she has felt well and had normal dialysis this morning. She is immunized x3 against covid. She was informed of + Covid exposure in Child/grandchildren after a 20 min visit. No symptoms and she waylon cough, fever. She is oxygenating normally and has only been using oxygen at night. Lungs are clear and exam is reassuring. Rapid Flu-Covid/Rsv obtained. Screening CXR obtained. Her chest x-ray is without consolidation, flu/RSV/Covid are negative. Patient stable and appropriate for discharge to home. HPI General Mode of arrival: ambulatory. Date/Time Provider Initiated Documentation: 04/19/21 15:07. Limitations to Documentation: no limitations. Information obtained by: patient. History of Present Illness 55 year old F presents to the emergency department with the chief complaint of Exposure to Covid - [address] [facility], feels well, described as mild, No relieving factors improve symptom(s), No exacerbating factors reported . Patient notes no other symptoms.; denies chest pain, cough, fever/chills and shortness of breath. Patient did receive the following treatments prior to arrival, none Related Data Home Medications Medication Instructions Recorded Confirmed Velphoro 1,000 mg PO AC tab.chew 05/24/16 03/20/21 aspirin 81 mg PO DAILY tab-cap 05/24/16 03/20/21 albuterol sulfate [ProAir HFA] 2 puff INHALATION Q4H PRN inhaler 07/26/17 03/20/21 Aerochamber MV 01/26/19 03/20/21 Velphoro 500 mg PO PRN PRN 01/26/19 03/20/21 meclizine 12.5 mg PO PRN PRN 03/18/19 03/20/21 omeprazole 40 mg PO BID 03/18/19 03/20/21 atorvastatin 40 mg tablet 20 mg PO DAILY 10/24/19 03/20/21 minoxidil 2.5 mg tablet 5 mg PO BID 12/09/19 03/20/21 bisacodyl 5 mg tablet,delayed 5 mg PO Q3D PRN #30 tab 01/31/20 03/20/21 release ondansetron 4 mg disintegrating 4 mg PO BID PRN PRN #14 tab 01/31/20 03/20/21 tablet albuterol sulfate 2.5 mg INHALATION Q6H PRN #3 ml 02/16/21 03/20/21 tiotropium bromide 18 mcg capsule 1 cap INHALATION DAILY #1 inh 02/16/21 03/20/21 with inhalation device azithromycin 250 mg tablet 250 - 500 mg PO DAILY #6 tab 03/16/21 03/20/21 codeine 10 mg-guaifenesin 100 mg/5 See Rx Instructions PO Q6H PRN 03/16/21 03/20/21 mL oral liquid #120 ml Previous Rx's Medication Instructions Recorded bisacodyl 5 mg tablet,delayed 5 mg PO Q3D PRN #30 tab 01/31/20 release ondansetron 4 mg disintegrating 4 mg PO BID PRN PRN #14 tab 01/31/20 tablet albuterol sulfate 2.5 mg INHALATION Q6H PRN #3 ml 02/16/21 tiotropium bromide 18 mcg capsule 1 cap INHALATION DAILY #1 inh 02/16/21 with inhalation device azithromycin 250 mg tablet 250 - 500 mg PO DAILY #6 tab 03/16/21 codeine 10 mg-guaifenesin 100 mg/5 See Rx Instructions PO Q6H PRN 03/16/21 mL oral liquid #120 ml Allergies Allergy/AdvReac Type Severity Reaction Status Date / Time cephalexin monohydrate Allergy Severe trouble Verified 03/20/21 16:30 [From Keflex] breathing colchicine Allergy Verified 03/20/21 16:30 allopurinol AdvReac Intermediate gout Verified 03/20/21 16:30 breakout erythromycin base AdvReac Intermediate gout Verified 03/20/21 16:30 breakout General Stated Complaint: RespSymp AWA: 3 Review of Systems Narrative: 2L O2 at night, unchanged. No SOB, no weight gain, normal dialysis today. PLan for RUE fistula, now with R chest port. Immunized Covid x3. 8 systems were reviewed. PFSH All Active Problems (Updated 04/19/21 @ 15:58 by Kirt Sky MD) CHF (congestive heart failure) (Chronic) Respiratory failure (Acute) Exposure to COVID-19 virus (Acute) Personal history of nicotine dependence (Acute) 02/2021 Aortic valve replaced (Acute) Bovine-with [facility] Hypertension (Chronic) Ventral hernia (Acute) Hemorrhage of arteriovenous fistula (Acute) Abdominal wall cellulitis (Acute) Palliative care patient (Acute) DNI (do not intubate) (Acute) DNR (do not resuscitate) (Acute) POLST (Physician Orders for Life-Sustaining Treatment) (Acute) COLST completed 02/13/2020, DNR/DNI. Cirrhosis, alcoholic (Acute) Tricuspid regurgitation (Acute) s/p tricuspid valve replacement 02/2020, bovine Central venous catheter in place (Acute ~10/29/19) [facility] [place], right subclavian-dialysis COPD (chronic obstructive pulmonary disease) (Chronic) Pulmonary at [facility] ESRD on dialysis (Chronic) On hemodialysis currently using central catheter-nephrology at [facility] receives dialysis at [facility] Gallstones (Acute) Depression (Acute 08/28/14) COPD (chronic obstructive pulmonary disease) (Acute) End stage renal disease (Chronic) Medical History Acute bronchitis Acute respiratory failure with hypoxia Acute right-sided congestive heart failure [facility] [place]-05/12/17 Alcohol abuse Aortic stenosis Axillary lymphadenopathy Bleeding hemorrhoids (01/08/13) rectal bleeding (colonoscopy [facility] [place] 01/01/13 internal hemorrhoids and diverticuli) Cannabis dependence Chest tube in place 05/11/16~ [facility] [place] AV REPLACEMENT TUBE; REMOVE SUTURES ON OR AFTER 05/14/16 CKD (chronic kidney disease) stage 5, GFR less than 15 ml/min Community acquired pneumonia COPD (chronic obstructive pulmonary disease) Critical aortic valve stenosis s/p valve repalcement CVD (cardiovascular disease) Cyst of ovary (08/20/12) Depression (09/14/12) Diverticulitis of large intestine without perforation or abscess with bleeding Essential hypertension (01/16/13) severe and labile Gastroesophageal reflux disease with esophagitis (02/03/15) Hyperkalemia Hyperlipidemia Hyperparathyroidism, unspecified (02/09/11) 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[facility] [place] Left arm cellulitis Macular degeneration of left eye (~10/17/19) [facility] [place] Nail dystrophy Other psychoactive substance abuse, uncomplicated Recurrent urinary tract infection Renal failure 2010 transplant failed, back on dialysis 1997-renal transplant left pelvis; renal insuff. Right foot injury (10/19/16) Right heart failure Secondary hyperparathyroidism (of renal origin) Smoker Tinea cruris Umbilical hernia repaired 1995,1997,2001,2003 Upper GI bleed (05/17/14) 05/15/14 [facility] [place] EGD, HH, esophagitis, gastric ulcer and duodenitis Wound infection after surgery Surgical History (Updated 02/16/21 @ 14:45 by Rubens Amaya MD) Abdominal hysterectomy (~2006) s/p hyst, but cervix still present and needs yearly PAP due to transplant H/O aortic valve replacement History of kidney transplant Repair of umbilical hernia 1995,1997,2001,2003 TRANSPLANT, KIDNEY (~1997) LEFT Family History Mother Essential hypertension Personal history of malignant neoplasm KIDNEY Heart disease Pulmonary emphysema Father Personal history of malignant neoplasm Pulmonary emphysema Brother Hyperlipidemia Brother Hyperlipidemia Brother No problems noted. Social History Smoking/Tobacco Use Status: Current-Occasional Tobacco Type: cigarettes Smoking risk assessment performed?: Yes Alcohol Intake: former Drug use: Daily Substance use type: marijuana Current gender identity: female Do you feel safe at home: Yes Do you feel safe in your relationship?: Yes Exam Narrative Exam Narrative: GEN: awake, alert, oriented 3. Pleasant, well groomed, interactive. HEAD: Normocephalic, atraumatic ENT: Mucous membranes moist, oropharynx unremarkable, External ear exam unremarkable EYES: PERRL, EOMI NECK: Full ROM, no MIK, no menigismus CHEST/RESP: Right upper chest dialysis catheter, clean dry and intact. Normal chest movement, clear to auscultation bilateral, no wheeze/rhonchi/rales CARDIOVASCULAR: RRR, no murmur, rub sergio. 2+ Rad pulse bilateral ABDOMEN: Soft, nontender, no mass. +Bowel sounds EXT: Full ROM, no edema, no rash. Upper extremity fistula without thrill. Neuro: Grossly normal neurologic exam, conversant, interactive. Psych: Speech fluent, thoughts congruent, affect normal Course Vital Signs Vital signs: Vital Signs Temperature 36.7 C 04/19/21 15:07 Pulse 73 04/19/21 15:07 Respiratory Rate 18 04/19/21 15:07 Blood Pressure 143/84 H 04/19/21 15:07 Pulse Oximetry 94 04/19/21 15:07 Temperature 36.7 C 04/19/21 15:07 Temperature Source Temporal Artery Scan 04/19/21 15:07 Pulse 73 04/19/21 15:07 Respiratory Rate 18 04/19/21 15:07 Respiratory Effort Short of Breath 04/19/21 15:12 Respiratory Depth Normal 04/19/21 15:12 Blood Pressure 143/84 H 04/19/21 15:07 Blood Pressure Position Supine 04/19/21 15:07 Pulse Oximetry 94 04/19/21 15:07 Oxygen Delivery Method Room Air 04/19/21 15:07 Oxygen Flow Rate 0 04/19/21 15:07 Pain Level 0 04/19/21 15:07
[2021-04-19 15:35] LABS: Source Nasopharynx
[2021-04-19 16:23] LABS: COVID-19 PCR Negative (Negative); Influenza A PCR Negative (Negative); Influenza B PCR Negative (Negative); RSV PCR Negative (Negative)
== END 2021-04-19 16:10 | disposition home or self-care (01) ==
PROVIDERS: Emergency Provider Emergency Medicine; PCP Family Medicine
DX: R05.1 Acute cough (principal); Z20.822 Contact with and (suspected) exposure to COVID-19; J44.9 Chronic obstructive pulmonary disease, unspecified
CPT/HCPCS: 87637; 99283; 71045

== ENCOUNTER 2021-06-08 15:16 | Outpatient (REF) | payer MEDICARE, OTHER, SELFPAY ==
[2021-06-10 12:52] LABS: COVID-19 RT-PCR UVMMC Result Negative (Negative)
== END 2021-06-08 15:17 | disposition home or self-care (01) ==
LOC: LBN 15:16
PROVIDERS: PCP Family Medicine; Visit Provider Family Medicine
DX: Z20.822 Contact with and (suspected) exposure to COVID-19 (principal); R09.89 Other specified symptoms and signs involving the circulatory and respiratory systems
CPT/HCPCS: U0003

== ENCOUNTER 2021-06-28 15:24 | Outpatient (CLI) | payer MEDICARE, OTHER, SELFPAY ==
--- NOTE | 2021-06-28 15:00 | DI.RAD_ITS ---
Exam(s) XR CHEST 2V PA LATERAL EXAM: XR CHEST 2V PA LATERAL CLINICAL HISTORY: W19.XXXA Fall- large hematoma-painful breathing back right TECHNIQUE: 2D digital imaging was performed. COMPARISON: CR XR PORTABLE CHEST AP from 04/19/2021 FINDINGS: MEDIASTINUM: Normal. HEART: Enlarged, unchanged. Valve prostheses. PULMONARY VASCULATURE: Mildly prominent. LUNGS: Clear. PLEURAL SPACE: No pleural effusion or pneumothorax. BONE:Sternal wires. No spine or rib fracture visible. No change in position of right-sided central venous catheter with tip in the right atrium. IMPRESSION: No acute abnormality. DATA REPOSITORY: RADIATION DOSE DELIVERED:
== END 2021-06-28 15:44 ==
PROVIDERS: PCP Family Medicine; Visit Provider Nurse Practitioner Family
DX: R07.1 Chest pain on breathing (principal); S20.221A Contusion of right back wall of thorax, initial encounter; W19.XXXA Unspecified fall, initial encounter; Z95.2 Presence of prosthetic heart valve
CPT/HCPCS: 71046

== ENCOUNTER 2021-09-17 11:51 | Emergency (ER) | payer MEDICARE, SELFPAY ==
[2021-09-17] VITALS (17 sets, daily range): BP systolic 111–134; BP diastolic 49–58; PULSE 61–68; RESP 17–24; TEMP 37.6; O2SAT 93–100
--- NOTE | 2021-09-17 11:45 | RT.EKG_ITS ---
APPROVED REPORT Exam: Resting ECG Reason for Exam: SOB Patient Location: E HR:79 bpm ECG Measurements Heart Rate 79 AXIS [place] 155 P 7 QRSd 167 QRS 67 QT 453 T -21 QTc 520 Conclusion Sinus rhythm...normal P axis, V-rate 60- 99 Right bundle branch block...QRSd>120, terminal axis(90,270)
--- NOTE | 2021-09-17 12:00 | DI.RAD_ITS ---
Exam(s) XR PORTABLE CHEST AP EXAM: XR PORTABLE CHEST AP CLINICAL HISTORY: cough, left chest pain, copd flare TECHNIQUE: 2D digital imaging was performed. COMPARISON: CR XR CHEST 2V PA LATERAL from 06/28/2021 FINDINGS: LUNGS: Clear. No pleural abnormality seen. HEART: Stable cardiac enlargement. Valve prostheses, sternal wires and central venous catheter. AORTA: Normal. BONES: Unremarkable for age. Soft tissues: Unremarkable. IMPRESSION: Cardiomegaly. No acute findings. DATA REPOSITORY: RADIATION DOSE DELIVERED:
[2021-09-17] MEDS: methylPREDNISolone SUCC 125 MG VIAL IVP (12:28)
[2021-09-17 12:34] LABS: Source Nasal/Nares
--- NOTE | 2021-09-17 12:40 | W.ED.GENAD ---
Discharge Plan Disposition Patient Disposition: HOME Condition: Stable Discharge Details Clinical Impression: Acute exacerbation of chronic obstructive pulmonary disease Primary Care Provider: Chano Neves ED Provider: Justice Cooper Home Meds and New Rx's Prescriptions: New prednisone 20 mg tablet 40 mg PO DAILY Qty: 8 0RF Rx Instructions: start 09/18/21 Continued Spiriva with HandiHaler 18 mcg capsule, w/inhalation device 1 cap inhalation DAILY Qty: 1 0RF Rx Instructions: puncture 1 cap using device; one dose = 2 inhalations from [facility] albuterol sulfate 2.5 mg /3 mL (0.083 %) solution for nebulization 2.5 mg inhalation Q6H PRN (Reason: shortness of breath or wheezing) Qty: 3 0RF Rx Instructions: [facility] bupropion HCl [Wellbutrin SR] 150 mg tablet sustained-release 12 hr 150 mg PO DAILY Qty: 30 5RF aspirin 81 MG tablet,chewable 81 mg PO DAILY albuterol sulfate [ProAir HFA] 8.5 GM HFA aerosol inhaler 2 puff Inhalation Q4H PRN atorvastatin 40 mg tablet 20 mg PO DAILY minoxidil 2.5 mg tablet 10 mg PO DAILY omeprazole 40 mg Capsule,Delayed Release(Dr/Ec) 40 mg PO BID meclizine 12.5 mg Tablet 12.5 mg PO PRN PRN (DME) Aerochamber MV Spacer MISCELLANEOUS Discharge Instructions Instructions: COPD (Chronic Obstructive Pulmonary Disease) (ED) Additional Instructions: Please use your inhaler as prescribed. Please contact your primary care physician to arrange follow-up. Return to the ER immediately for any worsening or new concerning symptoms. Referrals: Chano Neves MD [Primary Care Provider] - Discharge Data Discharge Date/Time-TO BE ENTERED AT DEPARTURE: 09/17/21 14:35 Medical Decision Making 1245 --56-year-old female with significant medical history including COPD, end-stage renal disease on hemodialysis, alcoholic cirrhosis, here with shortness of breath today, expiratory wheeze on exam and mild respiratory distress. Patient has had recent cough and associated pleuritic left rib pain. Patient has point tenderness over the left rib. I will apply lidocaine patch. Consider COVID. Patient is vaccinated. Plan to obtain stat testing. Suspect acute exacerbation of COPD. I will treat with multiple DuoNeb and Solu-Medrol IV. Consider pneumonia and pneumothorax we will obtain chest x-ray. Screening EKG was reviewed and interpreted by me: Sinus rhythm 75 bpm, right bundle branch block is present, please see report. --Chest x-ray was reviewed and interpreted by radiology: No acute findings. Labs reviewed and nondiagnostic. 1415 --Patient received 2 DuoNeb treatments and Solu-Medrol. On reassessment she notes significant improvement in symptoms. Patient is wheezing at baseline and breathing easily. She is requesting discharge. Patient discharged in improved and stable condition. Usual customary discharge instructions reviewed with the patient. Lab Data Lab results reviewed: Yes I reviewed the patient's lab results. Labs: Laboratory Tests Range/Units 09/17/21 09/17/21 09/17/21 12:15 12:20 12:20 WBC (4.4-10.8) 10^3/uL 4.17 L RBC (3.93-5.22) 10^6/uL 3.79 L Hgb (11.2-15.7) g/dL 11.5 Hct (36.0-46.0) % 35.7 L MCV (80-95) fL 94 MCH (27.0-33.0) pg 30.3 MCHC (32.0-36.0) % 32.2 RDW (11.7-14.6) % 15.8 H Plt Count (130-400) 10^3/uL 118 L MPV (8.0-11.0) fL 12.6 H Immature Gran % 0.5 Neutrophils % 62.3 Lymphocytes % 13.7 Monocytes % 12.0 Eosinophils % 10.3 Basophils % 1.2 Nucleated RBC % (0.0-0.3) % 0.0 Absolute Neutrophils (1.2-6.7) 10^3/uL 2.60 Absolute Lymphocytes (1.2-3.4) 10^3/uL 0.57 L Absolute Monocytes (0.1-0.8) 10^3/uL 0.50 Absolute Eosinophils (0.0-0.7) 10^3/uL 0.43 Absolute Basophils (0.0-0.2) 10^3/uL 0.05 Sodium (136-145) mmol/L 137 Potassium (3.5-5.1) mmol/L 3.6 Chloride (98-107) mmol/L 96 L Carbon Dioxide (21.0-32.0) mmol/L 30.7 Anion Gap (3-11) mmol/L 10.3 BUN (7-18) mg/dL 13 Creatinine (0.55-1.02) mg/dL 2.5 H Estimated GFR/1.73 m2 (mL/min/1.73m2) 19.78 Glucose (74-106) mg/dL 93 Calcium (8.5-10.1) mg/dL 8.7 Magnesium (1.8-2.4) mg/dL 1.8 Total Bilirubin (0.2-1.0) mg/dL 0.7 AST (15-37) U/L 30 ALT (14-59) U/L 27 Alkaline Phosphatase (46-116) U/L 248 H Troponin I (<or=60) ng/L < 50 Total Protein (6.4-8.2) g/dL 8.0 Albumin (3.4-5.0) g/dL 4.1 COVID-19 Source Nasal/Nares SARS-CoV-2 (PCR) (Negative) Negative HPI General Mode of arrival: ambulatory. Date/Time Provider Initiated Documentation: 09/17/21 11:56. Limitations to Documentation: no limitations. Information obtained by: patient. HPI Narrative: 56-year-old female with multiple medical problems including history of COPD, end-stage renal disease on hemodialysis, alcoholic cirrhosis, status post aortic valve replacement, here with chief complaint of shortness of breath. Patient notes she completed dialysis today and started to have shortness of breath. She states she has been having cough for the past week and developed left lateral chest wall pain related to the cough. Shortness of breath today is severe. Patient thinks breathing treatment would be helpful. She denies associated fever. No associated leg swelling. Related Data Home Medications Medication Instructions Recorded Confirmed aspirin 81 mg chewable tablet 81 mg PO DAILY 05/24/16 09/17/21 albuterol sulfate 90 mcg/actuation 2 puff inhalation Q4H PRN 07/26/17 09/17/21 aerosol inhaler (ProAir HFA) inhalational spacing device 01/26/19 09/16/21 (Aerochamber MV spacer) meclizine 12.5 mg tablet 12.5 mg PO PRN PRN 03/18/19 09/17/21 omeprazole 40 mg capsule,delayed 40 mg PO BID 03/18/19 09/17/21 release atorvastatin 40 mg tablet 20 mg PO DAILY 10/24/19 09/17/21 albuterol sulfate 2.5 mg/3 mL 2.5 mg (3 mL) inhalation Q6H PRN 02/16/21 09/17/21 (0.083 %) solution for nebulization shortness of breath or wheezing #3 mL tiotropium bromide 18 mcg capsule 1 cap inhalation DAILY #1 inh 02/16/21 09/17/21 with inhalation device (Spiriva with HandiHaler) bupropion HCl 150 mg tablet,12 hr 150 mg PO DAILY #30 tabs 06/22/21 09/17/21 sustained-release (Wellbutrin SR) minoxidil 2.5 mg tablet 10 mg PO DAILY 09/16/21 09/17/21 prednisone 20 mg tablet 40 mg PO DAILY #8 tabs 09/17/21 Previous Rx's Medication Instructions Recorded albuterol sulfate 2.5 mg/3 mL 2.5 mg (3 mL) inhalation Q6H PRN 02/16/21 (0.083 %) solution for nebulization shortness of breath or wheezing #3 mL tiotropium bromide 18 mcg capsule 1 cap inhalation DAILY #1 inh 02/16/21 with inhalation device (Spiriva with HandiHaler) bupropion HCl 150 mg tablet,12 hr 150 mg PO DAILY #30 tabs 06/22/21 sustained-release (Wellbutrin SR) prednisone 20 mg tablet 40 mg PO DAILY #8 tabs 09/17/21 Allergies Allergy/AdvReac Type Severity Reaction Status Date / Time cephalexin monohydrate Allergy Severe trouble Verified 09/17/21 12:25 [From Keflex] breathing colchicine Allergy Verified 09/17/21 12:25 allopurinol AdvReac Intermediate gout Verified 09/17/21 12:25 breakout erythromycin base AdvReac Intermediate gout Verified 09/17/21 12:25 breakout General Stated Complaint: SOB AWA: 3 Review of Systems All systems reviewed & are unremarkable except as noted in HPI and below Constitutional Constitutional: Denies fever(s) Cardiovascular Cardiovascular: Reports as per HPI Respiratory Respiratory: Reports as per HPI PFSH All Active Problems (Updated 09/17/21 @ 14:23 by Justice Cooper MD) Acute exacerbation of chronic obstructive pulmonary disease (Acute) Rib pain on left side (Acute) Pneumonia (Acute) Fall with injury (Acute) Tobacco abuse (Acute) Exposure to COVID-19 virus (Acute) Personal history of nicotine dependence (Acute) 02/2021 Aortic valve replaced (Acute) Bovine-with [facility] [place] Hypertension (Chronic) Ventral hernia (Acute) Hemorrhage of arteriovenous fistula (Acute) Abdominal wall cellulitis (Acute) DNI (do not intubate) (Acute) DNR (do not resuscitate) (Acute) POLST (Physician Orders for Life-Sustaining Treatment) (Acute) COLST completed 02/13/2020, DNR/DNI. Cirrhosis, alcoholic (Acute) Tricuspid regurgitation (Acute) s/p tricuspid valve replacement 02/2020, bovine Central venous catheter in place (Acute ~10/29/19) [facility], right subclavian-dialysis COPD (chronic obstructive pulmonary disease) (Chronic) Pulmonary at [place] ESRD on dialysis (Chronic) On hemodialysis currently using central catheter-nephrology at [facility] receives dialysis at [facility] Gallstones (Acute) Depression (Acute 08/28/14) COPD (chronic obstructive pulmonary disease) (Acute) End stage renal disease (Chronic) Medical History Acute bronchitis Acute respiratory failure with hypoxia Acute right-sided congestive heart failure [facility]-05/12/17 Alcohol abuse Aortic stenosis Axillary lymphadenopathy Bleeding hemorrhoids (01/08/13) rectal bleeding (colonoscopy [facility] 01/01/13 internal hemorrhoids and diverticuli) Cannabis dependence Chest tube in place 05/11/16~ [facility] AV REPLACEMENT TUBE; REMOVE SUTURES ON OR AFTER 05/14/16 CKD (chronic kidney disease) stage 5, GFR less than 15 ml/min Community acquired pneumonia COPD (chronic obstructive pulmonary disease) Critical aortic valve stenosis s/p valve repalcement CVD (cardiovascular disease) Cyst of ovary (08/20/12) Depression (09/14/12) Diverticulitis of large intestine without perforation or abscess with bleeding Essential hypertension (01/16/13) severe and labile Gastroesophageal reflux disease with esophagitis (02/03/15) Hyperkalemia Hyperlipidemia Hyperparathyroidism, unspecified (02/09/11) 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[facility] Left arm cellulitis Macular degeneration of left eye (~10/17/19) [facility] Nail dystrophy Other psychoactive substance abuse, uncomplicated Palliative care 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 Right foot injury (10/19/16) Right heart failure Secondary hyperparathyroidism (of renal origin) Smoker Tinea cruris Umbilical hernia repaired 1995,1997,2001,2003 Upper GI bleed (05/17/14) 05/15/14 [facility] EGD, HH, esophagitis, gastric ulcer and duodenitis Wound infection after surgery Surgical History Abdominal hysterectomy (~2006) s/p hyst, but cervix still present and needs yearly PAP due to transplant H/O aortic valve replacement History of kidney transplant Repair of umbilical hernia 1995,1997,2001,2003 TRANSPLANT, KIDNEY (~1997) LEFT Family History Mother Essential hypertension Personal history of malignant neoplasm KIDNEY Heart disease Pulmonary emphysema Father Personal history of malignant neoplasm Pulmonary emphysema Brother Hyperlipidemia Brother Hyperlipidemia Brother No problems noted. Social History Smoking/Tobacco Use Status: Current-Occasional Tobacco Type: cigarettes Smoking risk assessment performed?: Yes Alcohol Intake: former Drug use: Daily Substance use type: marijuana Current gender identity: female Do you feel safe at home: Yes Do you feel safe in your relationship?: Yes Exam Const General: cooperative and in distress respiratory Orientation: alert and awake HENMT Mouth: moist mucous membranes Eyes Conjunctivae: normal conjunctivae Sclera: normal sclerae Neck Neck: trachea midline and supple Resp Auscultation: no rales, no rhonchi and wheezes expiratory wheezes Cardio Rate: regular rate and not tachycardic Rhythm: regular rhythm GI Palpation: soft, not firm, no guarding, no masses, not rigid and nontender Skin General skin exam: no rashes or lesions noted Neuro General: patient alert, patient awake and tone normal Extrem General: no calf tenderness and no edema Psych Appearance: grossly normal Mental Status: mental status grossly normal Speech and Movement: speech and movement normal Course Vital Signs Vital signs: Vital Signs Temperature 37.6 C 09/17/21 12:19 Pulse 68 09/17/21 12:19 Respiratory Rate 17 09/17/21 12:19 Blood Pressure 122/57 L 09/17/21 12:19 Pulse Oximetry 95 09/17/21 12:19 Temperature 37.6 C 09/17/21 12:19 Temperature Source Temporal Artery Scan 09/17/21 12:19 Pulse 68 09/17/21 12:19 Respiratory Rate 17 09/17/21 12:23 Respiratory Effort 09/17/21 12:24 Respiratory Depth Shallow 09/17/21 12:23 Respiratory Pattern Normal 09/17/21 12:23 Blood Pressure 122/57 L 09/17/21 12:19 Blood Pressure Position Sitting 09/17/21 12:19 Pulse Oximetry 95 09/17/21 12:19 Oxygen Delivery Method Nasal Cannula 09/17/21 12:19 Oxygen Flow Rate 1 09/17/21 12:19 Pain Level 7 09/17/21 12:19 Lab/Test Results Lab/Test Results: Laboratory Tests Range/Units 09/17/21 12:15 COVID-19 Source Nasal/Nares
[2021-09-17 12:43] LABS: Abs Immature Grans 0.02 10^3/uL (0.0-0.06); Absolute Basophil Count 0.05 10^3/uL (0.0-0.2); Absolute Eosinophil Count 0.43 10^3/uL (0.0-0.7); Absolute Lymphocyte Count 0.57 10^3/uL (1.2-3.4); Basophils % 1.2; Eosinophils % 10.3; HCT 35.7 % (36.0-46.0); HGB 11.5 g/dL (11.2-15.7); Immature Grans % 0.5; Lymphocytes % 13.7; MCH 30.3 pg (27.0-33.0); MCHC 32.2 % (32.0-36.0); MCV 94 fL (80-95); MPV 12.6 fL (8.0-11.0); Neutrophils % 62.3; Platelet Count 118 10^3/uL (130-400); RBC 3.79 10^6/uL (3.93-5.22); RDW 15.8 % (11.7-14.6); RDW-SD 53.6 fL; WBC 4.17 10^3/uL (4.4-10.8)
[2021-09-17 12:53] LABS: ALT 27 U/L (14-59); AST 30 U/L (15-37); Albumin 4.1 g/dL (3.4-5.0); Alkaline Phosphatase 248 U/L (46-116); Anion Gap 10.3 mmol/L (3-11); BUN 13 mg/dL (7-18); Bilirubin, Total 0.7 mg/dL (0.2-1.0); CO2 30.7 mmol/L (21.0-32.0); CREATININE 2.5 mg/dL (0.55-1.02); Calcium 8.7 mg/dL (8.5-10.1); Chloride 96 mmol/L (98-107); Estimated GFR 19.78 (mL/min/1.73m2); Glucose 93 mg/dL (74-106); Magnesium 1.8 mg/dL (1.8-2.4); Potassium 3.6 mmol/L (3.5-5.1); Sodium 137 mmol/L (136-145); Troponin I < 50 ng/L (<or=60)
[2021-09-17] MEDS: Albuterol/Ipratropium 3 ML UPD VIAL UPD ×2 (12:58)
[2021-09-17 13:26] LABS: COVID-19 PCR Negative (Negative)
[2021-09-17] MEDS: Lidocaine 5% Patch 1 PATCH TP (14:28)
== END 2021-09-17 14:35 | disposition home or self-care (01) ==
PROVIDERS: Emergency Provider Student in an Organized Health Care Education/Training Program; PCP Family Medicine
DX: J44.1 Chronic obstructive pulmonary disease with (acute) exacerbation (principal); R07.9 Chest pain, unspecified; R05.1 Acute cough
CPT/HCPCS: 36415; 80053; 87635; 93005; 96374; 99284; 71045; 83735; 84484; 85025; 93010; J2930; J7620

== ENCOUNTER 2021-09-28 07:48 | Emergency (ER) | payer MEDICARE, SELFPAY ==
[2021-09-28] VITALS (31 sets, daily range): BP systolic 152–176; BP diastolic 40–92; PULSE 59–75; RESP 4–25; TEMP 36.9; O2SAT 95–100
--- NOTE | 2021-09-28 07:30 | RT.EKG_ITS ---
APPROVED REPORT Exam: Resting ECG Reason for Exam: sob Patient Location: E HR:66 bpm ECG Measurements Heart Rate 66 AXIS WA 186 P 12 QRSd 162 QRS 98 QT 485 T -4 QTc 509 Conclusion Sinus rhythm...normal P axis, V-rate 60- 99 RBBB and LPFB...QRSd >120mS, axis(90,210). Sinus. No significant change from previous EKG. No STEMI. I have reviewed and interpreted ECG and agree with software generated interpretation.
--- NOTE | 2021-09-28 08:00 | DI.RAD_ITS ---
Exam(s) XR PORTABLE CHEST AP EXAM: XR PORTABLE CHEST AP CLINICAL HISTORY: sob. TECHNIQUE: 2D digital imaging was performed. COMPARISON: CR XR PORTABLE CHEST AP from 09/17/2021 FINDINGS: Single AP portable view. Distal tip of the right supra clavi in line is in the right atrium, unchanged Cardiomegaly and sternotomy wires again noted as well as 2 prosthetic cardiac valves again noted. Mild pulmonary venous hypertension pattern but no jenny airspace edema. No Lluvia B lines. No pleur al effusions. IMPRESSION: Cardiac findings as above. No pulmonary edema at this time. DATA REPOSITORY: RADIATION DOSE DELIVERED: All CT scans at this facility use at least one of these dose optimization techniques: automated exposure control; mA and/or kV adjustment per patient size (includes targeted e xams where dose is matched to clinical indication); or iterative reconstruction.
[2021-09-28] MEDS: Ondansetron 4 MG/2 ML VIAL IVP (08:19)
--- NOTE | 2021-09-28 08:22 | ED.GENADUL_ITS ---
Discharge Plan Disposition Patient Disposition: HOME Condition: Improving Discharge Details Clinical Impression: Acute exacerbation of chronic obstructive pulmonary disease Primary Care Provider: Chano Neves ED Provider: Karan Barrera Home Meds and New Rx's Prescriptions: New prednisone 20 mg tablet 40 mg PO DAILY 4 Days Qty: 8 0RF Continued Spiriva with HandiHaler 18 mcg capsule, w/inhalation device 1 cap inhalation DAILY Qty: 1 0RF Rx Instructions: puncture 1 cap using device; one dose = 2 inhalations from [facility] albuterol sulfate 2.5 mg /3 mL (0.083 %) solution for nebulization 2.5 mg inhalation Q6H PRN (Reason: shortness of breath or wheezing) Qty: 3 0RF Rx Instructions: [facility] bupropion HCl [Wellbutrin SR] 150 mg tablet sustained-release 12 hr 150 mg PO DAILY Qty: 30 5RF aspirin 81 MG tablet,chewable 81 mg PO DAILY albuterol sulfate [ProAir HFA] 8.5 GM HFA aerosol inhaler 2 puff Inhalation Q4H PRN atorvastatin 40 mg tablet 20 mg PO DAILY minoxidil 2.5 mg tablet 10 mg PO DAILY omeprazole 40 mg Capsule,Delayed Release(Dr/Ec) 40 mg PO BID meclizine 12.5 mg Tablet 12.5 mg PO PRN PRN (DME) Aerochamber MV Spacer MISCELLANEOUS Discontinued prednisone 20 mg tablet 40 mg PO DAILY Qty: 8 0RF Rx Instructions: start 09/18/21 Discharge Instructions Instructions: COPD (Chronic Obstructive Pulmonary Disease) (ED) Additional Instructions: Work-up in the ER does not reveal any obvious emergent process and you have responded well to the neb treatments and steroids. Prednisone for the next 4 days as directed. I do recommend that you quit smoking. Please watch for new or worsening symptoms and return to the ER for any concerns. Lastly, I recommend reaching out to your primary care provider later today or tomorrow to discuss your ER visit and need for outpatient Medical Decision Making 56-year-old female, DNR, DNI, past medical history of COPD, heart failure, aortic stenosis, end-stage renal disease, dialysis 3 times a week, last dialysis was yesterday and completed in full, hypertension, palliative care patient, current smoker, O2 dependent only at night, presents to the ER for what she describes as a COPD exacerbation. Patient states that during her dialysis yesterday which she completed overall she did not feel well, mild nausea, awoke this morning with shortness of breath and had 1 episode of diarrhea when coughing. Clinically she appears chronically ill but in no acute distress, speaking in full sentences, afebrile, O2 sat is 96% on room air. We obtain IV access, initiate cardiac work-up, provide 2 breathing treatments, IV Solu- Medrol, obtain a chest x-ray and obtain a COVID, flu, RSV swab. Patient received her breathing treatments and reports feeling 100% better and ready to go home. Laboratory values revealed no evidence of leukocytosis. No evidence of anemia. Platelet count is appropriate at 133. Sodium 136 potassium 4.5. Creatinine is 5.3 but this is to be expected in end-stage renal disease patient. Dialysis was performed yesterday. Troponin less than 50. BNP is greater than 35,000, this appears to be her baseline. Clinically no clear signs of acute CHF exacerbati on. Flu, COVID, RSV all negative. Discussed work-up with patient and daughter. Patient reports that she feels back to baseline and is ready to go home, requesting discharge. Given her symptoms began a few hours prior to arrival, she has no chest pain and this feels exactly like her COPD exacerbation which has responded well to the neb treatments, I do not feel as though a deltal troponin is indicated, patient would rather not wait. We will provide for day history of burst dose steroids. Strict discharge and return precautions were provided. Patient understands, is agreeable to this plan, and has no additional questions or concerns upon discharge. This documentation was generated using [employer] dictation system, please disregard any oddities of phrase or misspellings. Medical Records Medical records reviewed: Yes I reviewed the patient's medical records. Imaging Data Radiologic Study: Attestation: I personally reviewed and interpreted this imaging study as follows: Imaging: X-Ray Radiologist's impression: Exam(s) XR PORTABLE CHEST AP EXAM: XR PORTABLE CHEST AP CLINICAL HISTORY: sob. TECHNIQUE: 2D digital imaging was performed. COMPARISON: CR XR PORTABLE CHEST AP from 09/17/2021 FINDINGS: Single AP portable view. Distal tip of the right supra clavi in line is in the right atrium, unchanged Cardiomegaly and sternotomy wires again noted as well as 2 prosthetic cardiac valves again noted. Mild pulmonary venous hypertension pattern but no jenny airspace edema. No Lluvia B lines. No pleural effusions. IMPRESSION: Cardiac findings as above. No pulmonary edema at this time. Lab Data Lab results reviewed: Yes I reviewed the patient's lab results. Labs: Laboratory Tests Range/Units 09/28/21 09/28/21 09/28/21 08:07 08:07 08:20 WBC (4.4-10.8) 10^3/uL 5.58 RBC (3.93-5.22) 10^6/uL 3.72 L Hgb (11.2-15.7) g/dL 11.3 Hct (36.0-46.0) % 35.2 L MCV (80-95) fL 95 MCH (27.0-33.0) pg 30.4 MCHC (32.0-36.0) % 32.1 RDW (11.7-14.6) % 15.6 H Plt Count (130-400) 10^3/uL 133 MPV (8.0-11.0) fL 12.3 H Immature Gran % 1.1 Neutrophils % 69.0 Lymphocytes % 9.5 Monocytes % 12.4 Eosinophils % 7.3 Basophils % 0.7 Nucleated RBC % (0.0-0.3) % 0.0 Absolute Neutrophils (1.2-6.7) 10^3/uL 3.85 Absolute Lymphocytes (1.2-3.4) 10^3/uL 0.53 L Absolute Monocytes (0.1-0.8) 10^3/uL 0.69 Absolute Eosinophils (0.0-0.7) 10^3/uL 0.41 Absolute Basophils (0.0-0.2) 10^3/uL 0.04 Sodium (136-145) mmol/L 136 Potassium (3.5-5.1) mmol/L 4.5 Chloride (98-107) mmol/L 96 L Carbon Dioxide (21.0-32.0) mmol/L 27.3 Anion Gap (3-11) mmol/L 12.7 H BUN (7-18) mg/dL 32 H Creatinine (0.55-1.02) mg/dL 5.3 H* Estimated GFR/1.73 m2 (mL/min/1.73m2) 8.31 Glucose (74-106) mg/dL 92 Calcium (8.5-10.1) mg/dL 8.5 Magnesium (1.8-2.4) mg/dL 2.0 Total Bilirubin (0.2-1.0) mg/dL 0.9 AST (15-37) U/L 24 ALT (14-59) U/L 31 Alkaline Phosphatase (46-116) U/L 196 H Troponin I (<or=60) ng/L < 50 NT-Pro-B Natriuret Pep (<300) pg/mL > 87840 H Total Protein (6.4-8.2) g/dL 7.7 Albumin (3.4-5.0) g/dL 4.1 COVID-19 Source Nasopharynx SARS-CoV-2 (PCR) (Negative) Negative Influenza Type A (PCR) (Negative) Negative Influenza Type B (PCR) (Negative) Negative RSV (PCR) (Negative) Negative ECG Data Attestation: I personally reviewed and interpreted this ECG (s) as follows: Interpretation: Please see official report by Dr. Haji. Sinus rhythm, ventricular rate of 66, right bundle branch block, no dynamic changes when compared to previous EKG HPI General Mode of arrival: EMS . Date/Time Provider Initiated Documentation: 09/28/21 08:02 . Limitations to Documentation: no limitations . Information obtained by: patient and EMS . History of Present Illness 56 year old F presents to the emergency department with the chief complaint of copd exacerbation, described as moderate, with intensity rated at 4. Quality is described as other (wheezing), and is localized to the chest. Patient reports no radiation. Patient started experiencing this hour(s) (3) and it has been constant. No relieving factors improve symptom(s), No exacerbating factors reported . Patient notes cough, nausea/vomiting (just nausea), shortness of breath and other (Diarrhea x1); denies chest pain and fever/chills. Patient did receive the following treatments prior to arrival, other (EMS) Related Data Home Medications Medication Instructions Recorded Confirmed aspirin 81 mg chewable tablet 81 mg PO DAILY 05/24/16 09/17/21 albuterol sulfate 90 mcg/actuation 2 puff inhalation Q4H PRN 07/26/17 09/17/21 aerosol inhaler (ProAir HFA) inhalational spacing device 01/26/19 09/16/21 (Aerochamber MV spacer) meclizine 12.5 mg tablet 12.5 mg PO PRN PRN 03/18/19 09/17/21 omeprazole 40 mg capsule,delayed 40 mg PO BID 03/18/19 09/17/21 release atorvastatin 40 mg tablet 20 mg PO DAILY 10/24/19 09/17/21 albuterol sulfate 2.5 mg/3 mL 2.5 mg (3 mL) inhalation Q6H PRN 02/16/21 09/17/21 (0.083 %) solution for nebulization shortness of breath or wheezing #3 mL tiotropium bromide 18 mcg capsule 1 cap inhalation DAILY #1 inh 02/16/21 09/17/21 with inhalation device (Spiriva with HandiHaler) bupropion HCl 150 mg tablet,12 hr 150 mg PO DAILY #30 tabs 06/22/21 09/17/21 sustained-release (Wellbutrin SR) minoxidil 2.5 mg tablet 10 mg PO DAILY 09/16/21 09/17/21 prednisone 20 mg tablet 40 mg PO DAILY 4 days #8 tabs 09/28/21 Previous Rx's Medication Instructions Recorded albuterol sulfate 2.5 mg/3 mL 2.5 mg (3 mL) inhalation Q6H PRN 02/16/21 (0.083 %) solution for nebulization shortness of breath or wheezing #3 mL tiotropium bromide 18 mcg capsule 1 cap inhalation DAILY #1 inh 02/16/21 with inhalation device (Spiriva with HandiHaler) bupropion HCl 150 mg tablet,12 hr 150 mg PO DAILY #30 tabs 06/22/21 sustained-release (Wellbutrin SR) prednisone 20 mg tablet 40 mg PO DAILY 4 days #8 tabs 09/28/21 Allergies Allergy/AdvReac Type Severity Reaction Status Date / Time cephalexin monohydrate Allergy Severe trouble Verified 09/28/21 08:13 [From Keflex] breathing colchicine Allergy Verified 09/28/21 08:13 allopurinol AdvReac Intermediate gout Verified 09/28/21 08:13 breakout erythromycin base AdvReac Intermediate gout Verified 09/28/21 08:13 breakout General Stated Complaint: SOB AWA: 2 Review of Systems Constitutional Constitutional: Denies fever(s) and Denies weakness ENT Ears, Nose, Mouth, and Throat: Denies neck pain Cardiovascular Cardiovascular: Denies chest pain and Reports dyspnea Respiratory Respiratory: Reports cough and Reports dyspnea Gastrointestinal Gastrointestinal: Denies abdominal pain, Reports diarrhea, Reports nausea and Denies vomiting Musculoskeletal Musculoskeletal: Denies neck pain Integumentary/Breasts Skin/Breast: Denies rash Neurologic Neurologic: Denies weakness PFSH All Active Problems (Updated 09/28/21 @ 10:15 by SHIRA Belcher) Acute exacerbation of chronic obstructive pulmonary disease (Acute) Rib pain on left side (Acute) Pneumonia (Acute) Fall with injury (Acute) Tobacco abuse (Acute) Exposure to COVID-19 virus (Acute) Personal history of nicotine dependence (Acute) 02/2021 Aortic valve replaced (Acute) Bovine-with [facility] Hypertension (Chronic) Ventral hernia (Acute) Hemorrhage of arteriovenous fistula (Acute) Abdominal wall cellulitis (Acute) DNI (do not intubate) (Acute) DNR (do not resuscitate) (Acute) POLST (Physician Orders for Life-Sustaining Treatment) (Acute) COLST completed 02/13/2020, DNR/DNI. Cirrhosis, alcoholic (Acute) Tricuspid regurgitation (Acute) s/p tricuspid valve replacement 02/2020, bovine Central venous catheter in place (Acute ~10/29/19) [facility], right subclavian-dialysis COPD (chronic obstructive pulmonary disease) (Chronic) Pulmonary at [facility] ESRD on dialysis (Chronic) On hemodialysis currently using central catheter-nephrology at [facility] receives dialysis at [facility] Gallstones (Acute) Depression (Acute 08/28/14) COPD (chronic obstructive pulmonary disease) (Acute) End stage renal disease (Chronic) Medical History Acute bronchitis Acute respiratory failure with hypoxia Acute right-sided congestive heart failure [facility]-05/12/17 Alcohol abuse Aortic stenosis Axillary lymphadenopathy Bleeding hemorrhoids (01/08/13) rectal bleeding (colonoscopy [facility] 01/01/13 internal hemorrhoids and diverticuli) Cannabis dependence Chest tube in place 05/11/16~ [facility] AV REPLACEMENT TUBE; REMOVE SUTURES ON OR AFTER 05/14/16 CKD (chronic kidney disease) stage 5, GFR less than 15 ml/min Community acquired pneumonia COPD (chronic obstructive pulmonary disease) Critical aortic valve stenosis s/p valve repalcement CVD (cardiovascular disease) Cyst of ovary (08/20/12) Depression (09/14/12) Diverticulitis of large intestine without perforation or abscess with bleeding Essential hypertension (01/16/13) severe and labile Gastroesophageal reflux disease with esophagitis (02/03/15) Hyperkalemia Hyperlipidemia Hyperparathyroidism, unspecified (02/09/11) 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[facility] Left arm cellulitis Macular degeneration of left eye (~10/17/19) [facility] Nail dystrophy Other psychoactive substance abuse, uncomplicated Palliative care 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 Right foot injury (10/19/16) Right heart failure Secondary hyperparathyroidism (of renal origin) Smoker Tinea cruris Umbilical hernia repaired 1995,1997,2001,2003 Upper GI bleed (05/17/14) 05/15/14 [facility] EGD, HH, esophagitis, gastric ulcer and duodenitis Wound infection after surgery Surgical History Abdominal hysterectomy (~2006) s/p hyst, but cervix still present and needs yearly PAP due to transplant H/O aortic valve replacement History of kidney transplant Repair of umbilical hernia 1995,1997,2001,2003 TRANSPLANT, KIDNEY (~1997) LEFT Family History Mother Essential hypertension Personal history of malignant neoplasm KIDNEY Heart disease Pulmonary emphysema Father Personal history of malignant neoplasm Pulmonary emphysema Brother Hyperlipidemia Brother Hyperlipidemia Brother No problems noted. Social History Smoking/Tobacco Use Status: Current-Occasional Tobacco Type: cigarettes Smoking risk assessment performed?: Yes Alcohol Intake: former Drug use: Daily Substance use type: marijuana Details: mostly edibles Current gender identity: female Do you feel safe at home: Yes Do you feel safe in your relationship?: Yes Exam Const General: cooperative, comfortable, no acute distress and ill appearing chronically Orientation: alert, awake and oriented x3 HENMT Head: normal to inspection, normocephalic and atraumatic Face and sinus: normal facial exam Mouth: moist mucous membranes Eyes General: appearance normal, both eyes and all related structures Conjunctivae: conjunctivae normal Neck Neck: normal visual inspection, full ROM, no meningeal signs, trachea midline and supple Resp Effort & Inspection: normal respiratory effort, able to speak in complete sentences and cough Quality of cough: dry (Mild) Auscultation: diminished lung sounds bilaterally in the lower lung knox and wheezes scattered wheezes (Throughout) Cardio Rate: regular rate Rhythm: regular rhythm GI Palpation: soft, not firm, no guarding, no pulsatile masses and nontender Auscultation: normal bowel sounds Back/Spine/Pelvis Back: No back tenderness Skin General skin exam: no rashes or lesions noted Neuro General: patient alert, patient awake, moves all extremities and no focal motor deficits Cognition: normal cognition Speech: speech normal Motor: muscle tone normal throughout Sensory Exam: no sensory deficits noted Extrem General: normal to inspection, full ROM, capillary refill normal, no pedal edema and no calf tenderness Psych Appearance: grossly normal Mental Status: mental status grossly normal Course Vital Signs Vital signs: Vital Signs Temperature 36.9 C 09/28/21 07:50 Pulse 71 09/28/21 07:50 Respiratory Rate 16 09/28/21 07:50 Blood Pressure 152/88 H 09/28/21 07:50 Pulse Oximetry 96 09/28/21 07:50 Temperature 36.9 C 09/28/21 07:50 Temperature Source Skin 09/28/21 07:50 Pulse 71 09/28/21 07:50 Respiratory Rate 16 09/28/21 07:55 Respiratory Effort Incrsd Work of Breathing 09/28/21 07:55 Respiratory Depth Shallow 09/28/21 07:55 Respiratory Pattern Normal 09/28/21 07:55 Blood Pressure 152/88 H 09/28/21 07:50 Blood Pressure Position Sitting 09/28/21 07:50 Pulse Oximetry 96 09/28/21 07:50 Oxygen Delivery Method Nasal Cannula 09/28/21 07:50 Pain Level 3 09/28/21 07:55
[2021-09-28] MEDS: methylPREDNISolone SUCC 125 MG VIAL IVP (08:30)
[2021-09-28 08:34] LABS: Abs Immature Grans 0.06 10^3/uL (0.0-0.06); Absolute Basophil Count 0.04 10^3/uL (0.0-0.2); Absolute Eosinophil Count 0.41 10^3/uL (0.0-0.7); Absolute Lymphocyte Count 0.53 10^3/uL (1.2-3.4); Absolute Monocyte Count 0.69 10^3/uL (0.1-0.8); Absolute Neutrophil Count 3.85 10^3/uL (1.2-6.7); Basophils % 0.7; Eosinophils % 7.3; HCT 35.2 % (36.0-46.0); HGB 11.3 g/dL (11.2-15.7); Immature Grans % 1.1; Lymphocytes % 9.5; MCH 30.4 pg (27.0-33.0); MCHC 32.1 % (32.0-36.0); MCV 95 fL (80-95); MPV 12.3 fL (8.0-11.0); Monocytes % 12.4; Platelet Count 133 10^3/uL (130-400); RBC 3.72 10^6/uL (3.93-5.22); RDW 15.6 % (11.7-14.6); RDW-SD 54.4 fL; WBC 5.58 10^3/uL (4.4-10.8)
--- NOTE | 2021-09-28 08:34 | NUR.NOTE ---
0106 Daughter Hortencia given an update on patient condition.
[2021-09-28] MEDS: Albuterol/Ipratropium 3 ML UPD VIAL UPD (08:45)
[2021-09-28] MEDS: Albuterol 2.5 MG/3 ML INH SOLN VIAL UPD (08:46)
--- NOTE | 2021-09-28 08:52 | NUR.NOTE ---
Nursing Note: patient presents unkept with very dirty skin.
[2021-09-28 09:23] LABS: ALT 31 U/L (14-59); AST 24 U/L (15-37); Albumin 4.1 g/dL (3.4-5.0); Alkaline Phosphatase 196 U/L (46-116); Anion Gap 12.7 mmol/L (3-11); BUN 32 mg/dL (7-18); Bilirubin, Total 0.9 mg/dL (0.2-1.0); CO2 27.3 mmol/L (21.0-32.0); Calcium 8.5 mg/dL (8.5-10.1); Chloride 96 mmol/L (98-107); Estimated GFR 8.31 (mL/min/1.73m2); Glucose 92 mg/dL (74-106); Potassium 4.5 mmol/L (3.5-5.1); Sodium 136 mmol/L (136-145); Total Protein 7.7 g/dL (6.4-8.2); Troponin I < 50 ng/L (<or=60)
[2021-09-28 09:29] LABS: COVID-19 PCR Negative (Negative); Influenza A PCR Negative (Negative); Influenza B PCR Negative (Negative); RSV PCR Negative (Negative)
[2021-09-28 09:32] LABS: Source Nasopharynx
[2021-09-28 09:35] LABS: CREATININE 5.3 mg/dL (0.55-1.02)
--- NOTE | 2021-09-28 09:37 | NUR.NOTE ---
Nursing Note: gave the result of creatine to Jonathan Barrera. Also noted to him that the NTP is greater than 35,000 but it still needs to be verified.
[2021-09-28 09:54] LABS: NT-proBNP > 35000 pg/mL (<300)
== END 2021-09-28 10:30 | disposition home or self-care (01) ==
PROVIDERS: Emergency Provider Physician Assistant; PCP Family Medicine
DX: J44.1 Chronic obstructive pulmonary disease with (acute) exacerbation (principal); Z20.822 Contact with and (suspected) exposure to COVID-19; R06.02 Shortness of breath
CPT/HCPCS: 36415; 80053; 87637; 93005; 94640; 96374; 96375; 99283; 99284; 71045; 83735; 83880; 84484; 85025; 93010; J2405; J2930; J7613; J7620

== ENCOUNTER 2021-10-29 08:23 | Emergency (ER) | payer MEDICARE, SELFPAY ==
[2021-10-29] VITALS (32 sets, daily range): BP systolic 89–121; BP diastolic 38–58; PULSE 60–72; RESP 1–26; TEMP 37; O2SAT 85–100
--- NOTE | 2021-10-29 08:15 | RT.EKG_ITS ---
APPROVED REPORT Exam: Resting ECG Reason for Exam: dyspnea Patient Location: E HR:64 bpm ECG Measurements Heart Rate 64 AXIS CO 209 P 7 QRSd 166 QRS 78 QT 501 T 43 QTc 519 Conclusion Sinus rhythm...normal P axis, V-rate 60- 99 Borderline prolonged CO interval...CO >202, V-rate 50- 90 Right bundle branch block...QRSd>120, terminal axis(90,270). Sinus. RBBB. No STEMI. I have reviewed and interpreted ECG and agree with software generated interpretation.
--- NOTE | 2021-10-29 08:45 | DI.CT_ITS ---
Exam(s) CT ABDOMEN WO EXAM: CT ABDOMEN WO CLINICAL HISTORY: abd pain, nausea vomiting diarrhea TECHNIQUE: Imaging Protocol: Axial computed tomography images with coronal and sagittal reformatted images were created and reviewed CONTRAST MATERIAL: Noncontrast COMPARISON: CT CT CHEST/ABD/PEL W from 02/03/2021 CR XR PORTABLE CHEST AP from 09/28/2021 CR XR CHEST 2V PA LATERAL from 10/29/2021 FINDINGS: ABDOMEN: Exam is limited without oral and IV contrast. Lung Bases: Evaluation limited due to respiratory motion. Heart: Partially included on exam. Markedly enlarged. Mitral valve prosthesis. No pericardial effusio n. Liver: Cirrhotic liver.. No measurable mass. Prominent portal vein. Varicosities. Gallbladder and biliary tract: Cholelithiasis. No biliary dilation. Pancreas: Normal density, no abnormal calcifications or inflammatory process. Spleen: Enlarged, unchanged. Kidneys: Severely atrophic Adrenal glands: No masses seen. Abdominal Aorta: Heavily calcified. Lymph nodes: Within normal limits. Peritoneum: Mild to moderate quantity of ascites, less than prior. Bowel: Prominent diverticulosis. No wall thickening or evidence of obstruction. Stomach contains flu id. No abnormal gastric distension. Bones: Unremarkable for age. Soft tissues: Severe body wall edema. Mesh midline anterior abdomen. IMPRESSION: Cirrhotic liver. Moderate amount of ascites. Body wall edema. No acute abnormality. RADIATION DOSE DELIVERED: 370.59mGy.cm Total DLP DATA REPOSITORY: All CT scans at this facility are submitted to the National Radiology Data Registry (NRDR) Dose Index Registry (DIR) with the [employer] (A[employer]). RADIATION OPTIMIZATION: All CT scans at this facility use at least one of these dose optimization te chniques: automated exposure control; mA and/or kV adjustment per patient size (includes targeted exa ms where dose is matched to clinical indication); or iterative reconstruction.
--- NOTE | 2021-10-29 08:48 | ED.GENADUL_ITS ---
Discharge Plan Disposition Patient Disposition: HOME Condition: Improving Discharge Details Clinical Impression: Nausea vomiting and diarrhea, COPD (chronic obstructive pulmonary disease) Primary Care Provider: Chano Neves ED Provider: Benjy Espinoza Home Meds and New Rx's Prescriptions: No Action Spiriva with HandiHaler 18 mcg capsule, w/inhalation device 1 cap inhalation DAILY Qty: 1 0RF Rx Instructions: puncture 1 cap using device; one dose = 2 inhalations from [facility] albuterol sulfate 2.5 mg /3 mL (0.083 %) solution for nebulization 2.5 mg inhalation Q6H PRN (Reason: shortness of breath or wheezing) Qty: 3 0RF Rx Instructions: [facility] bupropion HCl [Wellbutrin SR] 150 mg tablet sustained-release 12 hr 150 mg PO DAILY Qty: 30 5RF aspirin 81 MG tablet,chewable 81 mg PO DAILY albuterol sulfate [ProAir HFA] 8.5 GM HFA aerosol inhaler 2 puff Inhalation Q4H PRN atorvastatin 40 mg tablet 20 mg PO DAILY minoxidil 2.5 mg tablet 10 mg PO DAILY omeprazole 40 mg Capsule,Delayed Release(Dr/Ec) 40 mg PO BID meclizine 12.5 mg Tablet 12.5 mg PO PRN PRN prednisone 20 mg tablet 40 mg PO DAILY 4 Days Qty: 8 0RF (DME) Aerochamber MV Spacer MISCELLANEOUS Discharge Instructions Instructions: COPD (Chronic Obstructive Pulmonary Disease) (ED), Acute Nausea and Vomiting (ED) Additional Instructions: Please start with clear liquids and drink the appropriate mental fluid that we are allowed with your end-stage renal disease and dialysis. If you have any new or significant worsening of symptoms please return immediately to the emergency department otherwise slowly advance your diet as tolerated. At this time I feel that you more likely have a slight viral gastrointestinal illness that will typically resolve over the next couple days. Again if you have any concerns please return immediately to the emergency department or follow-up with your primary care provider Referrals: Chano Neves MD [Primary Care Provider] - (As needed for reassessment) Discharge Data Discharge Date/Time-TO BE ENTERED AT DEPARTURE: 10/29/21 11:21 Medical Decision Making Patient presenting to the emergency department for chief complaint of shortness of breath that is slightly worsened versus her baseline but also more concerned about developing abdominal pain nausea vomiting diarrhea. This started last night. Patient has a significant past medical history of COPD with multiple exacerbations, ESRD with dialysis Monday, alcoholic cirrhosis aortic valve replacement and tricuspid regurgitation. Patient is DNR/DNI. Patient was due for dialysis this morning but due to the abdominal pain nausea vomiting diarrhea is presenting to the emergency department. Physical exam shows diminished lung sounds in the bases but no obvious crackles and otherwise clear lung sounds, cardiac exam shows a grade 2/3 murmur otherwise unremarkable, abdominal exam shows a diffusely tender abdomen with patient stating mostly epigastric pain. We will plan on checking patient's labs along with a CT of her abdomen. Pending results we will give patient 2 DuoNeb's and Solu-Medrol which typically resolves her shortness of breath symptoms and Zofran pending results. EKG performed and shows a sinus rhythm with a rate of 64. Please see physician interpretation for full interpretation of EKG but does not show any worrisome interval changes from previous EKGs. Reviewed CBC and shows no significant leukocytosis. Patient has chronic anemia which is not far from baseline, platelet count of 115 which is also at or near patient's baseline. CMP shows creatinine of 6.1 with a BUN of 36 and GFR 7 which is near patient's baseline. Calcium of 8.1 again which is not abnormal for patient. Alk phos of 219. Troponin is nondetected and BNP is 29,000 358 which again is actually lower than patient's previously reported results. Lipase is 138. Review of chest x-ray and abdominal CT shows no acute findings noted all other findings are chronic and stable in nature. Patient is also negative for COVID flu and RSV. Patient reassessed and stated that she has mostly improved but still having slight shortness of breath. Patient's lactate is 0.4 which I feel is reassuring. Will give patient 1 more albuterol and patient otherwise states she feels comfortable being discharged. We will send her home with some Zofran and have her complete her dialysis today. After discussion of diagnosis and plan of care patient has no further needs, questions, or concerns and states clear understanding to return to the emergency department for any worsening symptoms. This documentation was generated using [employer] system, please disregard any oddities of phrase or misspellings. Imaging Data Radiologic Study: Imaging: X-Ray Radiologist's impression: FINDINGS: The heart is massively enlarged, stable. Pulmonary arteries are prominent, unchanged. Aortic and mitral valve prostheses, sternal wires and central venous catheter again noted. There is minimal blunting at the right costophrenic angle. No overt pulmonary edema or focal infiltrate is seen. IMPRESSION: Marked cardiomegaly. No acute abnormality Radiologic Study #2: Imaging: CT Scan Radiologist's impression: FINDINGS: ABDOMEN: Exam is limited without oral and IV contrast. Lung Bases: Evaluation limited due to respiratory motion. Heart: Partially included on exam. Markedly enlarged. Mitral valve prosthesis. No pericardial effusion. Liver: Cirrhotic liver.. No measurable mass. Prominent portal vein. Varicosities. Gallbladder and biliary tract: Cholelithiasis. No biliary dilation. Pancreas: Normal density, no abnormal calcifications or inflammatory process. Spleen: Enlarged, unchanged. Kidneys: Severely atrophic Adrenal glands: No masses seen. Abdominal Aorta: Heavily calcified. Lymph nodes: Within normal limits. Peritoneum: Mild to moderate quantity of ascites, less than prior. Bowel: Prominent diverticulosis. No wall thickening or evidence of obstruction. Stomach contains fluid. No abnormal gastric distension. Bones: Unremarkable for age. Soft tissues: Severe body wall edema. Mesh midline anterior abdomen. IMPRESSION: Cirrhotic liver. Moderate amount of ascites. Body wall edema. No acute abnormality. Lab Data Lab results reviewed: Yes I reviewed the patient's lab results. HPI General Mode of arrival: EMS . Date/Time Provider Initiated Documentation: 10/29/21 08:31 . Limitations to Documentation: no limitations . Information obtained by: patient, RN notes reviewed and old records reviewed . History of Present Illness 56 year old F presents to the emergency department with the chief complaint of Shortness of breath, abdominal pain nausea vomiting diarrhea, described as moderate, with intensity rated at 7. Quality is described as aching, and is localized to the abdomen. Patient started experiencing this day(s) (1) and it has been constant. No relieving factors improve symptom(s), No exacerbating factors reported . Patient did receive the following treatments prior to arrival, none Related Data Home Medications Medication Instructions Recorded Confirmed aspirin 81 mg chewable tablet 81 mg PO DAILY 05/24/16 10/29/21 albuterol sulfate 90 mcg/actuation 2 puff inhalation Q4H PRN 07/26/17 10/29/21 aerosol inhaler (ProAir HFA) inhalational spacing device 01/26/19 10/29/21 (Aerochamber MV spacer) meclizine 12.5 mg tablet 12.5 mg PO PRN PRN 03/18/19 10/29/21 omeprazole 40 mg capsule,delayed 40 mg PO BID 03/18/19 10/29/21 release atorvastatin 40 mg tablet 20 mg PO DAILY 10/24/19 10/29/21 albuterol sulfate 2.5 mg/3 mL 2.5 mg (3 mL) inhalation Q6H PRN 02/16/21 10/29/21 (0.083 %) solution for nebulization shortness of breath or wheezing #3 mL tiotropium bromide 18 mcg capsule 1 cap inhalation DAILY #1 inh 02/16/21 10/29/21 with inhalation device (Spiriva with HandiHaler) bupropion HCl 150 mg tablet,12 hr 150 mg PO DAILY #30 tabs 06/22/21 10/29/21 sustained-release (Wellbutrin SR) minoxidil 2.5 mg tablet 10 mg PO DAILY 09/16/21 10/29/21 prednisone 20 mg tablet 40 mg PO DAILY 4 days #8 tabs 09/28/21 10/29/21 Previous Rx's Medication Instructions Recorded albuterol sulfate 2.5 mg/3 mL 2.5 mg (3 mL) inhalation Q6H PRN 02/16/21 (0.083 %) solution for nebulization shortness of breath or wheezing #3 mL tiotropium bromide 18 mcg capsule 1 cap inhalation DAILY #1 inh 02/16/21 with inhalation device (Spiriva with HandiHaler) bupropion HCl 150 mg tablet,12 hr 150 mg PO DAILY #30 tabs 06/22/21 sustained-release (Wellbutrin SR) prednisone 20 mg tablet 40 mg PO DAILY 4 days #8 tabs 09/28/21 Allergies Allergy/AdvReac Type Severity Reaction Status Date / Time cephalexin monohydrate Allergy Severe trouble Verified 09/28/21 08:13 [From Keflex] breathing colchicine Allergy Verified 09/28/21 08:13 allopurinol AdvReac Intermediate gout Verified 09/28/21 08:13 breakout erythromycin base AdvReac Intermediate gout Verified 09/28/21 08:13 breakout General Stated Complaint: RespSymp AWA: 2 Review of Systems Constitutional Constitutional: Denies chills, Denies fever(s), Reports malaise and Reports poor appetite Cardiovascular Cardiovascular: Denies chest pain, Denies edema, Denies leg edema and Reports dyspnea Respiratory Respiratory: Reports cough (Chronic without change) and Reports dyspnea Gastrointestinal Gastrointestinal: Reports as per HPI, Reports abdominal pain, Denies melena, Denies change in bowel habits, Denies constipation, Denies diarrhea, Reports nausea and Reports vomiting Genitourinary Genitourinary: Denies hematuria, Denies urinary incontinence, Denies urinary hesitancy and Denies urinary urgency Integumentary/Breasts Skin/Breast: Denies rash PFSH All Active Problems (Updated 10/29/21 @ 10:51 by Benjy Espinoza NP) Nausea vomiting and diarrhea (Acute) Rib pain on left side (Acute) Pneumonia (Acute) Fall with injury (Acute) Tobacco abuse (Acute) Exposure to COVID-19 virus (Acute) Personal history of nicotine dependence (Acute) 02/2021 Aortic valve replaced (Acute) Bovine-with [facility] Hypertension (Chronic) Ventral hernia (Acute) Hemorrhage of arteriovenous fistula (Acute) Abdominal wall cellulitis (Acute) DNI (do not intubate) (Acute) DNR (do not resuscitate) (Acute) POLST (Physician Orders for Life-Sustaining Treatment) (Acute) COLST completed 02/13/2020, DNR/DNI. Cirrhosis, alcoholic (Acute) Tricuspid regurgitation (Acute) s/p tricuspid valve replacement 02/2020, bovine Central venous catheter in place (Acute ~10/29/19) [facility], right subclavian-dialysis COPD (chronic obstructive pulmonary disease) (Chronic) Pulmonary at [place] ESRD on dialysis (Chronic) On hemodialysis currently using central catheter-nephrology at [facility] receives dialysis at [facility] region Gallstones (Acute) Depression (Acute 08/28/14) COPD (chronic obstructive pulmonary disease) (Acute) End stage renal disease (Chronic) Medical History Acute bronchitis Acute respiratory failure with hypoxia Acute right-sided congestive heart failure [facility]-05/12/17 Alcohol abuse Aortic stenosis Axillary lymphadenopathy Bleeding hemorrhoids (01/08/13) rectal bleeding (colonoscopy [facility] 01/01/13 internal hemorrhoids and diverticuli) Cannabis dependence Chest tube in place 05/11/16~ [facility] AV REPLACEMENT TUBE; REMOVE SUTURES ON OR AFTER 05/14/16 CKD (chronic kidney disease) stage 5, GFR less than 15 ml/min Community acquired pneumonia COPD (chronic obstructive pulmonary disease) Critical aortic valve stenosis s/p valve repalcement CVD (cardiovascular disease) Cyst of ovary (08/20/12) Depression (09/14/12) Diverticulitis of large intestine without perforation or abscess with bleeding Essential hypertension (01/16/13) severe and labile Gastroesophageal reflux disease with esophagitis (02/03/15) Hyperkalemia Hyperlipidemia Hyperparathyroidism, unspecified (02/09/11) 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[facility] Left arm cellulitis Macular degeneration of left eye (~10/17/19) [facility] Nail dystrophy Other psychoactive substance abuse, uncomplicated Palliative care 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 Right foot injury (10/19/16) Right heart failure Secondary hyperparathyroidism (of renal origin) Smoker Tinea cruris Umbilical hernia repaired 1995,1997,2001,2003 Upper GI bleed (05/17/14) 05/15/14 [facility] EGD, HH, esophagitis, gastric ulcer and duodenitis Wound infection after surgery Surgical History Abdominal hysterectomy (~2006) s/p hyst, but cervix still present and needs yearly PAP due to transplant H/O aortic valve replacement History of kidney transplant Repair of umbilical hernia 1995,1997,2001,2003 TRANSPLANT, KIDNEY (~1997) LEFT Family History Mother Essential hypertension Personal history of malignant neoplasm KIDNEY Heart disease Pulmonary emphysema Father Personal history of malignant neoplasm Pulmonary emphysema Brother Hyperlipidemia Brother Hyperlipidemia Brother No problems noted. Social History Smoking/Tobacco Use Status: Current-Occasional Tobacco Type: cigarettes Smoking risk assessment performed?: Yes Alcohol Intake: former Drug use: Daily Substance use type: marijuana Details: mostly edibles Current gender identity: female Do you feel safe at home: Yes Do you feel safe in your relationship?: Yes Exam Const General: cooperative Orientation: alert, awake and oriented x3 Resp Effort & Inspection: able to speak in complete sentences and tachypneic Auscultation: diminished lung sounds bilaterally in the lower lung knox Cardio Rate: regular rate Rhythm: regular rhythm Heart Sounds: S1 normal and S2 normal GI Palpation: soft, not firm, guarding, no masses, no pulsatile masses and tender (Diffuse) Auscultation: normal bowel sounds Back/Spine/Pelvis Back: no CVA tenderness Neuro General: patient alert, patient awake, patient oriented x3, gait normal and moves all extremities Course Vital Signs Vital signs: Vital Signs Temperature 37.0 C 10/29/21 08:22 Pulse 65 10/29/21 08:22 Respiratory Rate 24 10/29/21 08:22 Blood Pressure 112/58 L 10/29/21 08:22 Pulse Oximetry 98 10/29/21 08:22 Temperature 37.0 C 10/29/21 08:22 Temperature Source Temporal Artery Scan 10/29/21 08:22 Pulse 65 10/29/21 08:22 Respiratory Rate 24 10/29/21 08:22 Respiratory Effort 10/29/21 08:38 Respiratory Depth Normal 10/29/21 08:38 Blood Pressure 112/58 L 10/29/21 08:22 Blood Pressure Position Supine 10/29/21 08:22 Pulse Oximetry 98 10/29/21 08:22 Oxygen Delivery Method Nasal Cannula 10/29/21 08:22 Oxygen Flow Rate 3 10/29/21 08:22 Pain Level 7 10/29/21 08:22
--- NOTE | 2021-10-29 08:57 | DI.RAD_ITS ---
Exam(s) XR CHEST 2V PA LATERAL EXAM: XR CHEST 2V PA LATERAL CLINICAL HISTORY: Shortness of breath TECHNIQUE: 2D digital imaging was performed. COMPARISON: CR XR PORTABLE CHEST AP from 09/28/2021 FINDINGS: The heart is massively enlarged, stable. Pulmonary arteries are prominent, unchanged. Aortic and mi tral valve prostheses, sternal wires and central venous catheter again noted. There is minimal blunt ing at the right costophrenic angle. No overt pulmonary edema or focal infiltrate is seen. IMPRESSION: Marked cardiomegaly. No acute abnormality. DATA REPOSITORY: RADIATION DOSE DELIVERED:
[2021-10-29 09:03] LABS: Abs Immature Grans 0.02 10^3/uL (0.0-0.06); Absolute Basophil Count 0.03 10^3/uL (0.0-0.2); Absolute Eosinophil Count 0.42 10^3/uL (0.0-0.7); Absolute Lymphocyte Count 0.42 10^3/uL (1.2-3.4); Absolute Monocyte Count 0.47 10^3/uL (0.1-0.8); Absolute Neutrophil Count 3.37 10^3/uL (1.2-6.7); Basophils % 0.6; Eosinophils % 8.9; HCT 31.4 % (36.0-46.0); HGB 9.8 g/dL (11.2-15.7); Immature Grans % 0.4; Lymphocytes % 8.9; MCH 30.6 pg (27.0-33.0); MCHC 31.2 % (32.0-36.0); MCV 98 fL (80-95); MPV 12.8 fL (8.0-11.0); Monocytes % 9.9; Neutrophils % 71.3; Platelet Count 115 10^3/uL (130-400); RDW 14.2 % (11.7-14.6); RDW-SD 51.1 fL; WBC 4.73 10^3/uL (4.4-10.8)
[2021-10-29] MEDS: Ondansetron 4 MG/2 ML VIAL IVP (09:12)
[2021-10-29 09:24] LABS: ALT 29 U/L (14-59); AST 32 U/L (15-37); Alkaline Phosphatase 219 U/L (46-116); Anion Gap 10.4 mmol/L (3-11); BUN 36 mg/dL (7-18); Bilirubin, Total 0.6 mg/dL (0.2-1.0); CO2 29.6 mmol/L (21.0-32.0); Calcium 8.1 mg/dL (8.5-10.1); Chloride 98 mmol/L (98-107); Estimated GFR 7.07 (mL/min/1.73m2); Glucose 92 mg/dL (74-106); Lipase 138 U/L (73-393); NT-proBNP 29358 pg/mL (<300); Potassium 4.2 mmol/L (3.5-5.1); Sodium 138 mmol/L (136-145); Total Protein 7.4 g/dL (6.4-8.2); Troponin I < 50 ng/L (<or=60)
[2021-10-29 09:26] LABS: CREATININE 6.1 mg/dL (0.55-1.02)
[2021-10-29 09:37] LABS: COVID-19 PCR Negative (Negative); Influenza A PCR Negative (Negative); Influenza B PCR Negative (Negative); RSV PCR Negative (Negative)
[2021-10-29 10:33] LABS: Lactate 0.4 mmol/L (0.6-1.4)
[2021-10-29] MEDS: Albuterol 2.5 MG/3 ML INH SOLN VIAL UPD (10:57)
== END 2021-10-29 11:21 | disposition home or self-care (01) ==
PROVIDERS: Emergency Provider Nurse Practitioner Family; PCP Family Medicine
DX: J44.9 Chronic obstructive pulmonary disease, unspecified (principal); K52.9 Noninfective gastroenteritis and colitis, unspecified; R01.1 Cardiac murmur, unspecified; I13.2 Hypertensive heart and chronic kidney disease with heart failure and with stage 5 chronic kidney disease, or end stage renal disease; I50.811 Acute right heart failure; N18.6 End stage renal disease; Z99.2 Dependence on renal dialysis; F17.210 Nicotine dependence, cigarettes, uncomplicated; Z20.822 Contact with and (suspected) exposure to COVID-19
CPT/HCPCS: 36415; 74150; 80053; 83690; 87637; 93005; 94640; 96374; 96375; 99284; 99285; 71046; 83605; 83880; 84484; 85025; 93010; J2405; J7613

== ENCOUNTER 2021-11-23 10:47 | Emergency (ER) | payer MEDICARE, SELFPAY ==
[2021-11-23] VITALS (35 sets, daily range): BP systolic 140–176; BP diastolic 55–138; PULSE 69–85; RESP 0–29; TEMP 38–38.1; O2SAT 90–100
--- NOTE | 2021-11-23 10:30 | RT.EKG_ITS ---
APPROVED REPORT Exam: Resting ECG Reason for Exam: sob Patient Location: E HR:81 bpm ECG Measurements Heart Rate 81 AXIS NJ 185 P 4 QRSd 162 QRS 74 QT 410 T 1 QTc 477 Conclusion Sinus rhythm...normal P axis, V-rate 60- 99 Right bundle branch block...QRSd>120, terminal axis(90,270). Sinus. RBBB. No significant change from previous. No STEMI. I have reviewed and interpreted ECG and agree with software generated interpretation.
--- NOTE | 2021-11-23 10:55 | ED.GENADUL_ITS ---
Discharge Plan Disposition Patient Disposition: HOME Condition: Stable Discharge Details Clinical Impression: Pneumonia, Acute exacerbation of chronic obstructive pulmonary disease Primary Care Provider: Chano Neves ED Provider: Lyn Márquez Home Meds and New Rx's Prescriptions: New levofloxacin 750 mg tablet 750 mg PO DAILY 7 Days Qty: 7 0RF Rx Instructions: Take one tablet daily x 7 days Continued Spiriva with HandiHaler 18 mcg capsule, w/inhalation device 1 cap inhalation DAILY Qty: 1 0RF Rx Instructions: puncture 1 cap using device; one dose = 2 inhalations from [facility] albuterol sulfate 2.5 mg /3 mL (0.083 %) solution for nebulization 2.5 mg inhalation Q6H PRN (Reason: shortness of breath or wheezing) Qty: 3 0RF Rx Instructions: [facility] prednisone 20 mg tablet 40 mg PO DAILY 5 Days Qty: 10 0RF aspirin 81 MG tablet,chewable 81 mg PO DAILY albuterol sulfate [ProAir HFA] 8.5 GM HFA aerosol inhaler 2 puff Inhalation Q4H PRN atorvastatin 40 mg tablet 20 mg PO DAILY minoxidil 2.5 mg tablet 2.5 mg PO QHS omeprazole 40 mg Capsule,Delayed Release(Dr/Ec) 40 mg PO BID meclizine 12.5 mg Tablet 12.5 mg PO PRN PRN (DME) Aerochamber MV Spacer MISCELLANEOUS Discharge Instructions Instructions: COPD (Chronic Obstructive Pulmonary Disease) (ED), Pneumonia (ED) Additional Instructions: A prescription for levofloxacin was sent to the pharmacy on file. Please take 1 tablet daily x7 days. This time it appears you may have pneumonia. Please take Tylenol with food every 4-6 hours as needed for pain and swelling. Wear your oxygen during the day as needed for shortness of breath. Continue taking your inhalers as prescribed. Please keep your dialysis appointments. Follow up with primary care provider in 3-5 days. Return to ED sooner if any worsening or concerns. Referrals: Chano Neves MD [Primary Care Provider] - 3 days Discharge Data Discharge Date/Time-TO BE ENTERED AT DEPARTURE: 11/23/21 14:24 Medical Decision Making 56-year-old female with a past medical history of stage V renal failure on dialysis, mitral valve regurgitation, hyperlipidemia, hyperlipidemia, hypertension, aortic valve stenosis, COPD, congestive heart failure presents to the ER with chief complaint of increased shortness of breath. EMS gave her a DuoNeb and albuterol neb prior to arrival. On scene she was speaking in 2 word sentences and tachypneic. Upon arrival on 3 L nasal cannula patient is satting 96%. She reports quitting smoking in October 11, she reports she has not smoked marijuana for last 5 days. She has noted bilateral lower extremity swelling which has improved over the last couple of days. She is also complaining of some chest pressure. She does have some decreased lung sounds noted on the left and wheezes expiratory on the right. X-ray shows cardiomegaly. Pulmonary edema versus bibasilar pneumonia. Patient is febrile here. Which would indicate pneumonia. COVID, flu, RSV all negative. Discussed results with patient she is requesting to be transferred to the [facility]. Patient given p.o. doxycycline and IV levofloxacin ordered. After discussion with patient after learning that the [facility] does not do dialysis patient has determined that she would rather trial outpatient oral antibiotics at home. Before being admitted. I feel like this is reasonable. I did discuss strict return instructions and follow-up care she is scheduled for dialysis tomorrow. She reports feeling better. I will send her home on Levaquin. Medical Records Medical records reviewed: Yes I reviewed the patient's medical records. Imaging Data Radiologic Study: Imaging: X-Ray Radiologist's impression: EXAM:? XR PORTABLE CHEST AP CLINICAL HISTORY:? SOB, Hx COPD TECHNIQUE:? 2D digital imaging was performed. COMPARISON:? CR XR CHEST 2V PA ? LATERAL from 10/29/2021 FINDINGS: LUNGS: Bibasilar areas of increased patchy density could represent pneumonia versus mild pulmonary edema. HEART: Marked cardiomegaly.? A valve prostheses.? Right-sided central venous catheter with tip terminating in the right atrium. AORTA: Normal. BONES: Unremarkable for age.? Soft tissues: Unremarkable. IMPRESSION: Marked cardiomegaly.? Mild pulmonary edema versus bibasilar pneumonia.? Lab Data Lab results reviewed: Yes I reviewed the patient's lab results. Labs: Laboratory Tests Range/Units 11/23/21 11/23/21 11/23/21 11:00 11:00 11:00 WBC (4.4-10.8) 10^3/uL 8.33 RBC (3.93-5.22) 10^6/uL 3.15 L Hgb (11.2-15.7) g/dL 9.7 L Hct (36.0-46.0) % 31.0 L MCV (80-95) fL 98 H MCH (27.0-33.0) pg 30.8 MCHC (32.0-36.0) % 31.3 L RDW (11.7-14.6) % 14.3 Plt Count (130-400) 10^3/uL 130 MPV (8.0-11.0) fL 11.9 H Immature Gran % 0.8 Neutrophils % 79.4 Lymphocytes % 5.4 Monocytes % 11.6 Eosinophils % 2.3 Basophils % 0.5 Nucleated RBC % (0.0-0.3) % 0.0 Absolute Neutrophils (1.2-6.7) 10^3/uL 6.61 Absolute Lymphocytes (1.2-3.4) 10^3/uL 0.45 L Absolute Monocytes (0.1-0.8) 10^3/uL 0.97 H Absolute Eosinophils (0.0-0.7) 10^3/uL 0.19 Absolute Basophils (0.0-0.2) 10^3/uL 0.04 PT (9.3-11.0) sec 11.8 H INR (0.9-1.1) 1.2 H Sodium (136-145) mmol/L 137 Potassium (3.5-5.1) mmol/L 3.7 Chloride (98-107) mmol/L 97 L Carbon Dioxide (21.0-32.0) mmol/L 30.6 Anion Gap (3-11) mmol/L 9.4 BUN (7-18) mg/dL 40 H Creatinine (0.55-1.02) mg/dL 5.6 H* Est GFR (CKD-EPI 2020) (mL/min/1.73m2) 8.26 Glucose (74-106) mg/dL 97 Calcium (8.5-10.1) mg/dL 9.0 Magnesium (1.8-2.4) mg/dL 1.3 L Total Bilirubin (0.2-1.0) mg/dL 0.9 AST (15-37) U/L 46 H ALT (14-59) U/L 33 Alkaline Phosphatase (46-116) U/L 298 H Troponin I (<or=60) ng/L < 50 NT-Pro-B Natriuret Pep (<300) pg/mL > 11888 H Total Protein (6.4-8.2) g/dL 7.3 Albumin (3.4-5.0) g/dL 3.7 HPI General Mode of arrival: EMS . Date/Time Provider Initiated Documentation: 11/23/21 10:54 . Limitations to Documentation: no limitations . Information obtained by: patient, EMS, RN notes reviewed and old records reviewed . HPI Narrative: 56-year-old female with a past medical history of stage V renal failure on dialysis, mitral valve regurgitation, hyperlipidemia, hyperlipidemia, hypertension, aortic valve stenosis, COPD, congestive heart failure presents to the ER with chief complaint of increased shortness of breath. EMS gave her a DuoNeb and albuterol neb prior to arrival. On scene she was speaking in 2 word sentences and tachypneic. Upon arrival on 3 L nasal cannula patient is satting 96%. She reports quitting smoking in October 11, she reports she has not smoked marijuana for last 5 days. She has noted bilateral lower extremity swelling which has improved over the last couple of days. She is also complaining of some chest pressure. She does have some decreased lung sounds noted on the left and wheezes expiratory on the right. Related Data Home Medications Medication Instructions Recorded Confirmed aspirin 81 mg chewable tablet 81 mg PO DAILY 05/24/16 11/23/21 albuterol sulfate 90 mcg/actuation 2 puff inhalation Q4H PRN 07/26/17 11/23/21 aerosol inhaler (ProAir HFA) inhalational spacing device 01/26/19 11/20/21 (Aerochamber MV spacer) meclizine 12.5 mg tablet 12.5 mg PO PRN PRN 03/18/19 11/23/21 omeprazole 40 mg capsule,delayed 40 mg PO BID 03/18/19 11/23/21 release atorvastatin 40 mg tablet 20 mg PO DAILY 10/24/19 11/23/21 albuterol sulfate 2.5 mg/3 mL 2.5 mg (3 mL) inhalation Q6H PRN 02/16/21 11/23/21 (0.083 %) solution for nebulization shortness of breath or wheezing #3 mL tiotropium bromide 18 mcg capsule 1 cap inhalation DAILY #1 inh 02/16/21 11/23/21 with inhalation device (Spiriva with HandiHaler) minoxidil 2.5 mg tablet 2.5 mg PO QHS 11/20/21 11/23/21 prednisone 20 mg tablet 40 mg PO DAILY 5 days #10 tabs 11/20/21 11/23/21 levofloxacin 750 mg tablet 750 mg PO DAILY 7 days #7 tabs 11/23/21 Previous Rx's Medication Instructions Recorded albuterol sulfate 2.5 mg/3 mL 2.5 mg (3 mL) inhalation Q6H PRN 02/16/21 (0.083 %) solution for nebulization shortness of breath or wheezing #3 mL tiotropium bromide 18 mcg capsule 1 cap inhalation DAILY #1 inh 02/16/21 with inhalation device (Spiriva with HandiHaler) prednisone 20 mg tablet 40 mg PO DAILY 5 days #10 tabs 11/20/21 levofloxacin 750 mg tablet 750 mg PO DAILY 7 days #7 tabs 11/23/21 Allergies Allergy/AdvReac Type Severity Reaction Status Date / Time cephalexin monohydrate Allergy Severe trouble Verified 11/23/21 10:58 [From Keflex] breathing colchicine Allergy Verified 11/23/21 10:58 allopurinol AdvReac Intermediate gout Verified 11/23/21 10:58 breakout erythromycin base AdvReac Intermediate gout Verified 11/23/21 10:58 breakout General AWA: 2 Review of Systems All systems reviewed & are unremarkable except as noted in HPI and below Cardiovascular Cardiovascular: Reports dyspnea Respiratory Respiratory: Reports as per HPI and Reports dyspnea Gastrointestinal Gastrointestinal: Denies diarrhea, Denies nausea and Denies vomiting PFSH All Active Problems (Updated 11/23/21 @ 13:17 by Lyn Márquez NP) Pneumonia (Acute) Acute exacerbation of chronic obstructive pulmonary disease (Acute) Nausea vomiting and diarrhea (Acute) Rib pain on left side (Acute) Pneumonia (Acute) Fall with injury (Acute) Tobacco abuse (Acute) Exposure to COVID-19 virus (Acute) Personal history of nicotine dependence (Acute) 02/2021 Aortic valve replaced (Acute) Bovine-with [facility] Hypertension (Chronic) Ventral hernia (Acute) Hemorrhage of arteriovenous fistula (Acute) Abdominal wall cellulitis (Acute) DNI (do not intubate) (Acute) DNR (do not resuscitate) (Acute) POLST (Physician Orders for Life-Sustaining Treatment) (Acute) COLST completed 02/13/2020, DNR/DNI. Cirrhosis, alcoholic (Acute) Tricuspid regurgitation (Acute) s/p tricuspid valve replacement 02/2020, bovine Central venous catheter in place (Acute ~10/29/19) [facility], right subclavian-dialysis COPD (chronic obstructive pulmonary disease) (Chronic) [facility] ESRD on dialysis (Chronic) On hemodialysis currently using central catheter-nephrology at [facility] receives dialysis at [facility] Gallstones (Acute) Depression (Acute 08/28/14) COPD (chronic obstructive pulmonary disease) (Acute) End stage renal disease (Chronic) Medical History Acute bronchitis Acute respiratory failure with hypoxia Acute right-sided congestive heart failure [facility]-05/12/17 Alcohol abuse Aortic stenosis Axillary lymphadenopathy Bleeding hemorrhoids (01/08/13) rectal bleeding (colonoscopy [facility] 01/01/13 internal hemorrhoids and diverticuli) Cannabis dependence Chest tube in place 05/11/16~ [facility] AV REPLACEMENT TUBE; REMOVE SUTURES ON OR AFTER 05/14/16 CKD (chronic kidney disease) stage 5, GFR less than 15 ml/min Community acquired pneumonia COPD (chronic obstructive pulmonary disease) Critical aortic valve stenosis s/p valve repalcement CVD (cardiovascular disease) Cyst of ovary (08/20/12) Depression (09/14/12) Diverticulitis of large intestine without perforation or abscess with bleeding Essential hypertension (01/16/13) severe and labile Gastroesophageal reflux disease with esophagitis (02/03/15) Hyperkalemia Hyperlipidemia Hyperparathyroidism, unspecified (02/09/11) 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[facility] Left arm cellulitis Macular degeneration of left eye (~10/17/19) [facility] Nail dystrophy Other psychoactive substance abuse, uncomplicated Palliative care 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 Right foot injury (10/19/16) Right heart failure Secondary hyperparathyroidism (of renal origin) Smoker Tinea cruris Umbilical hernia repaired 1995,1997,2001,2003 Upper GI bleed (05/17/14) 05/15/14 [facility] EGD, HH, esophagitis, gastric ulcer and duodenitis Wound infection after surgery Surgical History Abdominal hysterectomy (~2006) s/p hyst, but cervix still present and needs yearly PAP due to transplant H/O aortic valve replacement History of kidney transplant Repair of umbilical hernia 1995,1997,2001,2003 TRANSPLANT, KIDNEY (~1997) LEFT Family History Mother Essential hypertension Personal history of malignant neoplasm KIDNEY Heart disease Pulmonary emphysema Father Personal history of malignant neoplasm Pulmonary emphysema Brother Hyperlipidemia Brother Hyperlipidemia Brother No problems noted. Social History Smoking/Tobacco Use Status: Former Tobacco Use Quit Date: 10/11/21 Smoking risk assessment performed?: Yes Alcohol Intake: former Drug use: Daily Substance use type: marijuana Details: mostly edibles Current gender identity: female Do you feel safe at home: Yes Do you feel safe in your relationship?: Yes Exam Narrative Exam Narrative: Constitutional: Alert and oriented x3. Patient appears chronically ill. She does have a dialysis shunt to her right anterior chest wall. Newly placed fistula noted to right upper extremity with stitches in place no surrounding redness or erythema. Head: Normocephalic, no trauma. Eyes: Pupils PERRL, Red reflex noted, EOM's intact. Eyelids symmetrical without lesions, discharge, or swelling. ENT: Bilateral TM's WNL, External ear normal to inspection, no mastoid TTP, swelling, or erythema, Nasal turbinates WNL, no nasal discharge. Normal d entition, Posterior pharynx WNL, no exudate. Chest: RRR, Normal S1, S2, distal pulses intact. Resp: Lungs diminished on the left, expiratory wheezes noted on the right Abdomen: Soft, non-distended, Normoactive bowel sounds all 4 quads. Musculoskeletal: Unable to assess gait. She does have 2+ pitting edema noted to her bilateral lower extremities. Skin: No suspicious rashes or lesions. Capillary refill less than 2 sec. Neurologic: Cranial nerves II-XII intact. Alert and oriented x 3. Motor: No deficits noted. Sensory: Intact bilaterally all 4 extremities. Reflexes: DTR's intact bilaterally.. Hematologic/Lymphatic: No ecchymosis, no lymphadenopathy.
[2021-11-23] MEDS: methylPREDNISolone SUCC 125 MG VIAL IVP (11:07)
[2021-11-23 11:09] LABS: Abs Immature Grans 0.07 10^3/uL (0.0-0.06); Absolute Basophil Count 0.04 10^3/uL (0.0-0.2); Absolute Eosinophil Count 0.19 10^3/uL (0.0-0.7); Absolute Lymphocyte Count 0.45 10^3/uL (1.2-3.4); Absolute Monocyte Count 0.97 10^3/uL (0.1-0.8); Absolute Neutrophil Count 6.61 10^3/uL (1.2-6.7); Basophils % 0.5; Eosinophils % 2.3; HGB 9.7 g/dL (11.2-15.7); Immature Grans % 0.8; Lymphocytes % 5.4; MCH 30.8 pg (27.0-33.0); MCHC 31.3 % (32.0-36.0); MCV 98 fL (80-95); MPV 11.9 fL (8.0-11.0); Monocytes % 11.6; Neutrophils % 79.4; Platelet Count 130 10^3/uL (130-400); RBC 3.15 10^6/uL (3.93-5.22); RDW 14.3 % (11.7-14.6); RDW-SD 50.9 fL; WBC 8.33 10^3/uL (4.4-10.8)
[2021-11-23 11:20] LABS: INR 1.2 (0.9-1.1); Prothrombin Time 11.8 sec (9.3-11.0)
--- NOTE | 2021-11-23 11:30 | DI.RAD_ITS ---
Exam(s) XR PORTABLE CHEST AP EXAM: XR PORTABLE CHEST AP CLINICAL HISTORY: SOB, Hx COPD TECHNIQUE: 2D digital imaging was performed. COMPARISON: CR XR CHEST 2V PA LATERAL from 10/29/2021 FINDINGS: LUNGS: Bibasilar areas of increased patchy density could represent pneumonia versus mild pulmonary ed sundar. HEART: Marked cardiomegaly. A valve prostheses. Right-sided central venous catheter with tip termin ating in the right atrium. AORTA: Normal. BONES: Unremarkable for age. Soft tissues: Unremarkable. IMPRESSION: Marked cardiomegaly. Mild pulmonary edema versus bibasilar pneumonia. DATA REPOSITORY: RADIATION DOSE DELIVERED:
[2021-11-23] MEDS: ACETAMINOPHEN 1,000 MG/100 ML BTL 400 MG IVPB (11:36)
[2021-11-23 11:56] LABS: ALT 33 U/L (14-59); AST 46 U/L (15-37); Albumin 3.7 g/dL (3.4-5.0); Alkaline Phosphatase 298 U/L (46-116); Anion Gap 9.4 mmol/L (3-11); BUN 40 mg/dL (7-18); Bilirubin, Total 0.9 mg/dL (0.2-1.0); CO2 30.6 mmol/L (21.0-32.0); Chloride 97 mmol/L (98-107); Estimated GFR 8.26 (mL/min/1.73m2); Glucose 97 mg/dL (74-106); Magnesium 1.3 mg/dL (1.8-2.4); NT-proBNP > 35000 pg/mL (<300); Potassium 3.7 mmol/L (3.5-5.1); Sodium 137 mmol/L (136-145); Total Protein 7.3 g/dL (6.4-8.2); Troponin I < 50 ng/L (<or=60)
[2021-11-23 11:57] LABS: CREATININE 5.6 mg/dL (0.55-1.02)
[2021-11-23 12:02] LABS: COVID-19 PCR Negative (Negative); Influenza A PCR Negative (Negative); Influenza B PCR Negative (Negative); RSV PCR Negative (Negative)
[2021-11-23] MEDS: Doxycycline Hyclate 100 MG CAP PO (12:53)
[2021-11-23 13:58] LABS: Troponin I < 50 ng/L (<or=60)
== END 2021-11-23 14:24 | disposition home or self-care (01) ==
PROVIDERS: Emergency Provider Registered Nurse Emergency; PCP Family Medicine
DX: J44.0 Chronic obstructive pulmonary disease with (acute) lower respiratory infection (principal); J18.9 Pneumonia, unspecified organism; J44.1 Chronic obstructive pulmonary disease with (acute) exacerbation; I13.2 Hypertensive heart and chronic kidney disease with heart failure and with stage 5 chronic kidney disease, or end stage renal disease; I50.9 Heart failure, unspecified; N18.6 End stage renal disease; Z99.2 Dependence on renal dialysis; Z20.822 Contact with and (suspected) exposure to COVID-19; Z79.82 Long term (current) use of aspirin
CPT/HCPCS: 36415; 80053; 87040; 87637; 93005; 96365; 96375; 99284; 99285; 71045; 83735; 83880; 84484; 85025; 85610; 93010; J0131; J2930

== ENCOUNTER 2021-12-27 12:53 | Emergency (ER) | payer MEDICARE, SELFPAY ==
[2021-12-27] VITALS (44 sets, daily range): BP systolic 140–159; BP diastolic 31–110; PULSE 62–90; RESP 8–26; TEMP 36.7; O2SAT 86–99
--- NOTE | 2021-12-27 13:15 | RT.EKG_ITS ---
APPROVED REPORT Exam: Resting ECG Reason for Exam: SOB Patient Location: E HR:85 bpm ECG Measurements Heart Rate 85 AXIS MN 215 P 3 QRSd 173 QRS 80 QT 450 T -12 QTc 536 Conclusion Sinus rhythm...normal P axis, V-rate 60- 99 Prolonged MN interval...MN >210, V-rate 50- 90 Right bundle branch block...QRSd>120, terminal axis(90,270) sinus rhythm at 85, normal axis, right bundle branch block, no STEMI, nondiagnostic EKG I have reviewed and interpreted ECG and agree with software generated interpretation.
[2021-12-27] MEDS: Albuterol/Ipratropium 3 ML UPD VIAL UPD (13:30)
--- NOTE | 2021-12-27 13:45 | ED.GENADUL_ITS ---
Discharge Plan Disposition Patient Disposition: STILL A PATIENT Discharge Details Chief Complaint: GenMedical Primary Care Provider: Chano Neves ED Provider: Ivy Cooper Home Meds and New Rx's Prescriptions: No Action Spiriva with HandiHaler 18 mcg capsule, w/inhalation device 1 cap inhalation DAILY Qty: 1 0RF Rx Instructions: puncture 1 cap using device; one dose = 2 inhalations from [facility] albuterol sulfate 2.5 mg /3 mL (0.083 %) solution for nebulization 2.5 mg inhalation Q6H PRN (Reason: shortness of breath or wheezing) Qty: 3 0RF Rx Instructions: VA aspirin 81 MG tablet,chewable 81 mg PO DAILY albuterol sulfate [ProAir HFA] 8.5 GM HFA aerosol inhaler 2 puff Inhalation Q4H PRN atorvastatin 40 mg tablet 20 mg PO DAILY minoxidil 2.5 mg tablet 2.5 mg PO QHS omeprazole 40 mg Capsule,Delayed Release(Dr/Ec) 40 mg PO BID meclizine 12.5 mg Tablet 12.5 mg PO PRN PRN (DME) Aerochamber MV Spacer MISCELLANEOUS Medical Decision Making Concern for COPD exacerbation, pneumonia, COVID, flu, other. Doubt acute coronary syndrome, pulmonary embolism. Exam/history at this time is not consistent with sepsis, acute aortic pathology. Plan for EKG, IV placement, telemetry, screening labs, nasal cannula O2 at 2 L, DuoNebs, IV solumedrol. Will monitor and reassess. Patient reports feeling improved after DuoNeb. D-dimer greater than 5000, BNP greater than 35,000, difficult to interpret these lab results in this clinical setting however D-dimer significantly elevated from prior 2014. Chest x-ray read as mild increase in interstitial markings concerning for pulmonary edema. I discussed patient presentation results with Dr. Cruz of nephrology at [facility], who has some concern for fluid overload from contrast dye administration. He states also the plan for CT of the chest could potentially be ultrasound of bilateral lower extremities with Noncon CT of chest. He will attempt to call dialysis center and see if patient can undergo dialysis tomorrow, in which case fluid overload from contrast dye would be less of a concern, states he will call back. Spoke with Dr. Cruz of nephrology at [facility] a second time, who states that patient can be dialyzed in [facility] [place] at [address] for [address] chest. Patient signed out to Dr. Puente at time of shift change with CT chest, reassessment pending. Patient confirmed that she is able to attend dialysis at 745 tomorrow morning if she is discharged. Medical Records Medical records reviewed: Yes I reviewed the patient's medical records. Lab Data Lab results reviewed: Yes I reviewed the patient's lab results. Labs: Laboratory Tests Range/Units 12/27/21 12/27/21 12/27/21 13:30 13:45 13:45 WBC (4.4-10.8) 10^3/uL 3.43 L RBC (3.93-5.22) 10^6/uL 3.58 L Hgb (11.2-15.7) g/dL 10.7 L Hct (36.0-46.0) % 33.9 L MCV (80-95) fL 95 MCH (27.0-33.0) pg 29.9 MCHC (32.0-36.0) % 31.6 L RDW (11.7-14.6) % 14.7 H Plt Count (130-400) 10^3/uL 110 L MPV (8.0-11.0) fL 11.3 H Immature Gran % 0.3 Neutrophils % 64.8 Lymphocytes % 12.5 Monocytes % 12.2 Eosinophils % 9.0 Basophils % 1.2 Nucleated RBC % (0.0-0.3) % 0.0 Absolute Neutrophils (1.2-6.7) 10^3/uL 2.22 Absolute Lymphocytes (1.2-3.4) 10^3/uL 0.43 L Absolute Monocytes (0.1-0.8) 10^3/uL 0.42 Absolute Eosinophils (0.0-0.7) 10^3/uL 0.31 Absolute Basophils (0.0-0.2) 10^3/uL 0.04 D-Dimer (<500) ng/mlFEU VBG Lactate (0.6-1.4) mmol/L Sodium (136-145) mmol/L 139 Potassium (3.5-5.1) mmol/L 3.3 L Chloride (98-107) mmol/L 97 L Carbon Dioxide (21.0-32.0) mmol/L 33.5 H Anion Gap (3-11) mmol/L 8.5 BUN (7-18) mg/dL 11 Creatinine (0.55-1.02) mg/dL 3.2 H Est GFR (CKD-EPI 2020) (mL/min/1.73m2) 16.17 Glucose (74-106) mg/dL 108 H Calcium (8.5-10.1) mg/dL 9.0 Total Bilirubin (0.2-1.0) mg/dL 0.7 AST (15-37) U/L 31 ALT (14-59) U/L 21 Alkaline Phosphatase (46-116) U/L 264 H Troponin I (<or=60) ng/L 53 NT-Pro-B Natriuret Pep (<300) pg/mL > 17425 H Total Protein (6.4-8.2) g/dL 7.7 Albumin (3.4-5.0) g/dL 3.9 COVID-19 Source Not Applicable SARS-CoV-2 (PCR) (Negative) Negative Influenza Type A (PCR) (Negative) Negative Influenza Type B (PCR) (Negative) Negative RSV (PCR) (Negative) Negative Range/Units 12/27/21 12/27/21 12/27/21 13:45 13:45 13:45 WBC (4.4-10.8) 10^3/uL RBC (3.93-5.22) 10^6/uL Hgb (11.2-15.7) g/dL Hct (36.0-46.0) % MCV (80-95) fL MCH (27.0-33.0) pg MCHC (32.0-36.0) % RDW (11.7-14.6) % Plt Count (130-400) 10^3/uL MPV (8.0-11.0) fL Immature Gran % Neutrophils % Lymphocytes % Monocytes % Eosinophils % Basophils % Nucleated RBC % (0.0-0.3) % Absolute Neutrophils (1.2-6.7) 10^3/uL Absolute Lymphocytes (1.2-3.4) 10^3/uL Absolute Monocytes (0.1-0.8) 10^3/uL Absolute Eosinophils (0.0-0.7) 10^3/uL Absolute Basophils (0.0-0.2) 10^3/uL D-Dimer (<500) ng/mlFEU 5377 H VBG Lactate (0.6-1.4) mmol/L 1.0 Sodium (136-145) mmol/L Potassium (3.5-5.1) mmol/L Chloride (98-107) mmol/L Carbon Dioxide (21.0-32.0) mmol/L Anion Gap (3-11) mmol/L BUN (7-18) mg/dL Creatinine (0.55-1.02) mg/dL Est GFR (CKD-EPI 2020) (mL/min/1.73m2) Glucose (74-106) mg/dL Calcium (8.5-10.1) mg/dL Total Bilirubin (0.2-1.0) mg/dL AST (15-37) U/L ALT (14-59) U/L Alkaline Phosphatase (46-116) U/L Troponin I (<or=60) ng/L NT-Pro-B Natriuret Pep (<300) pg/mL Cancelled Total Protein (6.4-8.2) g/dL Albumin (3.4-5.0) g/dL COVID-19 Source SARS-CoV-2 (PCR) (Negative) Influenza Type A (PCR) (Negative) Influenza Type B (PCR) (Negative) RSV (PCR) (Negative) ECG Data Attestation: I personally reviewed and interpreted this ECG (s) as follows: Interpretation: EKG shows sinus rhythm at 85, normal axis, right bundle branch block, no STEMI, nondiagnostic EKG HPI General Mode of arrival: ambulatory . Date/Time Provider Initiated Documentation: 12/27/21 13:20 . Limitations to Documentation: no limitations . Information obtained by: patient, RN notes reviewed and old records reviewed . HPI Narrative: Earlene Huang is a 56-year-old woman with a history of aortic valve replacement, hypertension, cirrhosis, COPD, end-stage renal disease on dialysis presenting to the emergency department with shortness of breath. Patient reports that she is currently supposed to be using home oxygen at night only, 2 L. Patient reports that over the past 2 weeks she has needed to use 2 L of oxygen throughout the day as well due to feeling dyspneic with any type of exertion, even around her house. Patient reports that 6 or 7 days ago she developed cough productive of thick white sputum. Patient reports that she has had no change in symptoms today, but came to the emergency department because of their persistence. Patient reports that prior to arrival in the ER she went to her dialysis session as usual and received full dialysis. She denies pain, fevers, vomiting, diarrhea, numbness, focal weakness, rash. She reports feeling very tired over the past few days and having a decreased appetite. Patient reports that she was recently treated for pneumonia, and her symptoms now feel similar. Record review shows that this was 11/23/2021. Patient denies any recent hospitalizations over the past few months. Patient reports that she has some mild swelling of her ankles that is chronic and unchanged. Patient states that she has received 4 COVID vaccinations. Related Data Home Medications Medication Instructions Recorded Confirmed aspirin 81 mg chewable tablet 81 mg PO DAILY 05/24/16 12/27/21 albuterol sulfate 90 mcg/actuation 2 puff inhalation Q4H PRN 07/26/17 12/27/21 aerosol inhaler (ProAir HFA) inhalational spacing device 01/26/19 12/27/21 (Aerochamber MV spacer) meclizine 12.5 mg tablet 12.5 mg PO PRN PRN 03/18/19 12/27/21 omeprazole 40 mg capsule,delayed 40 mg PO BID 03/18/19 12/27/21 release atorvastatin 40 mg tablet 20 mg PO DAILY 10/24/19 12/27/21 albuterol sulfate 2.5 mg/3 mL 2.5 mg (3 mL) inhalation Q6H PRN 02/16/21 12/27/21 (0.083 %) solution for nebulization shortness of breath or wheezing #3 mL tiotropium bromide 18 mcg capsule 1 cap inhalation DAILY #1 inh 02/16/21 12/27/21 with inhalation device (Spiriva with HandiHaler) minoxidil 2.5 mg tablet 2.5 mg PO QHS 11/20/21 12/27/21 Previous Rx's Medication Instructions Recorded albuterol sulfate 2.5 mg/3 mL 2.5 mg (3 mL) inhalation Q6H PRN 02/16/21 (0.083 %) solution for nebulization shortness of breath or wheezing #3 mL tiotropium bromide 18 mcg capsule 1 cap inhalation DAILY #1 inh 02/16/21 with inhalation device (Spiriva with HandiHaler) Allergies Allergy/AdvReac Type Severity Reaction Status Date / Time cephalexin monohydrate Allergy Severe trouble Verified 12/27/21 12:08 [From Keflex] breathing colchicine Allergy Verified 12/27/21 12:08 allopurinol AdvReac Intermediate gout Verified 12/27/21 12:08 breakout erythromycin base AdvReac Intermediate gout Verified 12/27/21 12:08 breakout General Stated Complaint: GenMedical AWA: 3 Review of Systems Narrative: Constitutional: denies fevers, reports fatigue Eyes: denies eye pain ENT: denies ear pain, dental pain, sore throat Cardiovascular: denies chest pain, reports chronic edema Respiratory: Reports SOB, cough GI: denies abdominal pain, vomiting, diarrhea : denies flank pain MSK: denies back pain, neck pain, arthralgias, myalgias Skin: denies rash Neuro: denies headaches, numbness, weakness PFSH All Active Problems Rib pain on left side (Acute) Pneumonia (Acute) Fall with injury (Acute) Tobacco abuse (Acute) Exposure to COVID-19 virus (Acute) Personal history of nicotine dependence (Acute) 02/2021 Aortic valve replaced (Acute) Bovine-with [facility] Hypertension (Chronic) Ventral hernia (Acute) Hemorrhage of arteriovenous fistula (Acute) Abdominal wall cellulitis (Acute) DNI (do not intubate) (Acute) DNR (do not resuscitate) (Acute) POLST (Physician Orders for Life-Sustaining Treatment) (Acute) COLST completed 02/13/2020, DNR/DNI. Cirrhosis, alcoholic (Acute) Tricuspid regurgitation (Acute) s/p tricuspid valve replacement 02/2020, bovine Central venous catheter in place (Acute ~10/29/19) [facility], right subclavian-dialysis COPD (chronic obstructive pulmonary disease) (Chronic) Pulmonary at [facility] ESRD on dialysis (Chronic) On hemodialysis currently using central catheter-nephrology at [facility] receives dialysis at [facility] Gallstones (Acute) Depression (Acute 08/28/14) COPD (chronic obstructive pulmonary disease) (Acute) End stage renal disease (Chronic) Medical History Acute bronchitis Acute respiratory failure with hypoxia Acute right-sided congestive heart failure [facility]-05/12/17 Alcohol abuse Aortic stenosis Axillary lymphadenopathy Bleeding hemorrhoids (01/08/13) rectal bleeding (colonoscopy [facility] 01/01/13 internal hemorrhoids and diverticuli) Cannabis dependence Chest tube in place 05/11/16~ [facility] AV REPLACEMENT TUBE; REMOVE SUTURES ON OR AFTER 05/14/16 CKD (chronic kidney disease) stage 5, GFR less than 15 ml/min Community acquired pneumonia COPD (chronic obstructive pulmonary disease) Critical aortic valve stenosis s/p valve repalcement CVD (cardiovascular disease) Cyst of ovary (08/20/12) Depression (09/14/12) Diverticulitis of large intestine without perforation or abscess with bleeding Essential hypertension (01/16/13) severe and labile Gastroesophageal reflux disease with esophagitis (02/03/15) Hyperkalemia Hyperlipidemia Hyperparathyroidism, unspecified (02/09/11) 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[facility] Left arm cellulitis Macular degeneration of left eye (~10/17/19) [facility] Nail dystrophy Other psychoactive substance abuse, uncomplicated Palliative care 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 Right foot injury (10/19/16) Right heart failure Secondary hyperparathyroidism (of renal origin) Smoker Tinea cruris Umbilical hernia repaired 1995,1997,2001,2003 Upper GI bleed (05/17/14) 05/15/14 [facility] EGD, HH, esophagitis, gastric ulcer and duodenitis Wound infection after surgery Surgical History Abdominal hysterectomy (~2006) s/p hyst, but cervix still present and needs yearly PAP due to transplant H/O aortic valve replacement History of kidney transplant Repair of umbilical hernia 1995,1997,2001,2003 TRANSPLANT, KIDNEY (~1997) LEFT Family History Mother Essential hypertension Personal history of malignant neoplasm KIDNEY Heart disease Pulmonary emphysema Father Personal history of malignant neoplasm Pulmonary emphysema Brother Hyperlipidemia Brother Hyperlipidemia Brother No problems noted. Social History Smoking/Tobacco Use Status: Former Tobacco Use Quit Date: 10/11/21 Smoking risk assessment performed?: Yes Alcohol Intake: former Drug use: Daily Substance use type: marijuana Details: mostly edibles Current gender identity: female Do you feel safe at home: Yes Do you feel safe in your relationship?: Yes Exam Narrative Exam Narrative: Constitutional: Chronically ill but acutely [id number], pleasant, conversing normally on 2 L nasal cannula O2 HENT: head atraumatic/normocephalic/normal inspection, mucous membranes moist Eyes: conjunctiva normal, sclera normal, pupils 3mm b/l Neck: no stridor, normal ROM, trachea midline Chest: normal inspection Resp: normal work of breathing, diminished breath sounds bilaterally, expiratory wheeze throughout Cardio: normal rate, normal rhythm, no murmur appreciated GI: abdomen soft, non-tender, non-distended Back: normal inspection, no rash Skin: warm, dry, normal color, no rash Neuro: alert, not altered, grossly non-focal, normal tone Ext: mild edema b/l ankles, no posterior calf tenderness to palpation Psych: normal mood, normal affect, normal behavior Course Vital Signs Vital signs: Vital Signs Temperature 36.7 C 12/27/21 13:03 Pulse 90 12/27/21 13:03 Respiratory Rate 20 12/27/21 13:03 Blood Pressure 147/67 H 12/27/21 13:03 Pulse Oximetry 86 L 12/27/21 13:03 Temperature 36.7 C 12/27/21 13:03 Temperature Source Oral 12/27/21 13:03 Pulse 90 12/27/21 13:03 Respiratory Rate 20 12/27/21 13:03 Blood Pressure 147/67 H 12/27/21 13:03 Blood Pressure Position Sitting 12/27/21 13:03 Pulse Oximetry 86 L 12/27/21 13:03 Oxygen Delivery Method Room Air 12/27/21 13:03 Oxygen Flow Rate 0 12/27/21 13:03
[2021-12-27 13:58] LABS: Abs Immature Grans 0.01 10^3/uL (0.0-0.06); Absolute Basophil Count 0.04 10^3/uL (0.0-0.2); Absolute Eosinophil Count 0.31 10^3/uL (0.0-0.7); Absolute Lymphocyte Count 0.43 10^3/uL (1.2-3.4); Absolute Monocyte Count 0.42 10^3/uL (0.1-0.8); Absolute Neutrophil Count 2.22 10^3/uL (1.2-6.7); Basophils % 1.2; HCT 33.9 % (36.0-46.0); HGB 10.7 g/dL (11.2-15.7); Immature Grans % 0.3; Lymphocytes % 12.5; MCH 29.9 pg (27.0-33.0); MCHC 31.6 % (32.0-36.0); MCV 95 fL (80-95); MPV 11.3 fL (8.0-11.0); Monocytes % 12.2; Neutrophils % 64.8; Platelet Count 110 10^3/uL (130-400); RBC 3.58 10^6/uL (3.93-5.22); RDW 14.7 % (11.7-14.6); WBC 3.43 10^3/uL (4.4-10.8)
--- NOTE | 2021-12-27 14:02 | DI.RAD_ITS ---
Exam(s) XR PORTABLE CHEST AP EXAM: XR PORTABLE CHEST AP CLINICAL HISTORY: cough, SOB TECHNIQUE: 2D digital imaging was performed of the chest. Two images were obtained. AP views were obtained. COMPARISON: CR XR CHEST 2V PA LATERAL from 10/29/2021 CR XR PORTABLE CHEST AP from 11/23/2021 FINDINGS: MEDIASTINUM: Normal. HEART: Cardiomegaly is present. Valvular prostheses are again noted. PULMONARY VASCULATURE: Normal. LUNGS: No focal consolidating infiltrates are present. There is a mild overall increase in the inter stitial markings which may represent pulmonary edema. PLEURAL SPACE: No pleural effusion or pneumothorax. BONE:Within normal limits for the patient's age. OTHER FINDINGS:The right-sided central venous catheter is stable. IMPRESSION: Mild overall increase in the interstitial markings suspicious for pulmonary edema. DATA REPOSITORY: RADIATION DOSE DELIVERED:
[2021-12-27] MEDS: Albuterol/Ipratropium 3 ML UPD VIAL (14:11)
[2021-12-27 14:20] LABS: ALT 21 U/L (14-59); AST 31 U/L (15-37); Albumin 3.9 g/dL (3.4-5.0); Alkaline Phosphatase 264 U/L (46-116); Anion Gap 8.5 mmol/L (3-11); BUN 11 mg/dL (7-18); Bilirubin, Total 0.7 mg/dL (0.2-1.0); CO2 33.5 mmol/L (21.0-32.0); CREATININE 3.2 mg/dL (0.55-1.02); Chloride 97 mmol/L (98-107); Estimated GFR 16.17 (mL/min/1.73m2); Glucose 108 mg/dL (74-106); Potassium 3.3 mmol/L (3.5-5.1); Sodium 139 mmol/L (136-145); Total Protein 7.7 g/dL (6.4-8.2); Troponin I 53 ng/L (<or=60)
[2021-12-27 14:34] LABS: COVID-19 PCR Negative (Negative); Influenza A PCR Negative (Negative); Influenza B PCR Negative (Negative); RSV PCR Negative (Negative)
[2021-12-27 14:40] LABS: NT-proBNP > 35000 pg/mL (<300)
[2021-12-27 14:41] LABS: D-Dimer 5377 ng/mlFEU (<500)
[2021-12-27] MEDS: methylPREDNISolone SUCC 125 MG VIAL IVP (15:38)
--- NOTE | 2021-12-27 16:30 | DI.CT_ITS ---
Exam(s) CT CHEST PE CTA EXAM: CT CHEST PE CTA CLINICAL HISTORY: elevated d dimer, ?pe. TECHNIQUE: Imaging Protocol: Axial CT angiography was performed with multi-slice acquisition and mu lti-planar and/or 3D reconstructions. CONTRAST MATERIAL: Intravenous: Omnipaque 350 contrast volume:99 mL COMPARISON: CT CT CHEST/ABD/PEL W from 02/03/[address] ABDOMEN WO from 10/29/2021 CR XR PORTABLE CHEST AP from 12/27/2021 FINDINGS: Tracheobronchial tree: Patent where visualized. Pulmonary parenchyma: There is a 2.1 x 1 x 1.0 irregular nodule in the posterior aspect of the right upper lobe abutting the fissure. Bilateral basilar opacities are seen which may reflect atelectasis. Emphysematous changes are present in the lungs. Pulmonary Arteries: The subsegmental pulmonary arteries are suboptimally opacified. No large central pulmonary embolus is identified. There is dilatation of the main pulmonary artery suggesting pulmon nate artery hypertension. Mediastinum and Magali: There are stable mildly enlarged mediastinal lymph nodes. The esophagus is unr emarkable. Visualized thyroid gland: Unremarkable. Pleura: There are bilateral tiny pleural effusions. No pneumothorax is identified. Heart: Cardiomegaly is present. Coronary artery calcifications are present. No pericardial effusion . Aorta: Thoracic aorta non-dilated. No evidence of dissection. Atherosclerosis is present. Upper abdomen: Moderate abdominal ascites is seen. The liver has a lobulated contour with an intra large left lobe and caudate suspicious for hepatic cirrhosis. The spleen is enlarged. There is agai n seen severe bilateral renal atrophy. Tubes, Catheters, and Lines: The tip of the catheter is seen in the right atrium. Soft tissues: There is mild diffuse subcutaneous edema. Stable mildly enlarged axillary lymph nodes are seen. Bones: Sternal wires are in place. IMPRESSION: 1. No evidence of pulmonary embolism, thoracic aortic dissection or aneurysm. 2. Cardiomegaly and tiny pleural effusions. 3. Bilateral basilar opacities which may represent atelectasis. Pneumonia cannot be excluded. 4. New 2.1 x 1.0 x 1.0 irregular nodular lesion in the right upper lobe. While this may represent in fectious or inflammatory process neoplasm cannot be excluded. CT scan at 3 months, PET-CT or biopsy should be considered for both low and high risk patients. (Priti et al, 2017). 5. Findings of hepatic cirrhosis with splenomegaly and abdominal ascites. 6. Dual lumen catheter tip seen in the right atrium. RADIATION DOSE DELIVERED: 306.48mGy.cm Total DLP DATA REPOSITORY: All CT scans at this facility are submitted to the National Radiology Data Registry (NRDR) Dose Index Registry (DIR) with the [employer] (ACR). RADIATION OPTIMIZATION: All CT scans at this facility use at least one of these dose optimization te chniques: automated exposure control; mA and/or kV adjustment per patient size (includes targeted exa ms where dose is matched to clinical indication); or iterative reconstruction.
[2021-12-27 17:26] LABS: Troponin I < 50 ng/L (<or=60)
[2021-12-27] MEDS: Omnipaque 350 MG/ML 100 ML BTL 99 ML IJ (17:28)
[2021-12-27] MEDS: Normal Saline Flush 10 ML SYR IVP (17:31)
--- NOTE | 2021-12-27 18:19 | DI.VRAD_ITS ---
PROCEDURE INFORMATION: Exam: CTA Chest With Contrast Exam date and time: 12/27/2021 4:43 PM Age: 56 years old Clinical indication: Other: Elevated d dimer, ? pe; Patient HX: PT is a dialysis PT. Okay to inject per Dr. Puetne. TECHNIQUE: Imaging protocol: Computed tomographic angiography of the chest with contrast. 3D rendering (Not supervised by radiologist): MIP and/or 3D reconstructed images were created by the technologist. Radiation optimization: All CT scans at this facility use at least one of these dose optimization techniques: automated exposure control; mA and/or kV adjustment per patient size (includes targeted exams where dose is matched to clinical indication); or iterative reconstruction. Contrast material: OMNIPAQUE 350; Contrast volume: 99 ml; Contrast route: INTRAVENOUS (IV); COMPARISON: CT CHEST PE CTA 03/18/2019 6:21 PM FINDINGS: Tubes, catheters and devices: There is a new double-lumen right IJ line with its tip residing within the lower right atrium near the inferior cavoatrial junction. Pulmonary arteries: No filling defects within the pulmonary arteries are identified to suggest pulmonary embolism. Again noted is dilatation of the central pulmonary arteries with the main pulmonary artery measuring 4.5 cm diameter, suggesting history of pulmonary hypertension. Aorta: There is mild to moderate scattered atherosclerotic calcification throughout the thoracic aorta. Again noted is mild fusiform dilatation of the ascending aorta measuring up to 4.3 cm diameter, without change. Celiac trunk and mesenteric arteries: Again noted is mild aneurysmal dilatation of the celiac axis. There is marked atherosclerotic calcification of the splenic artery with diffuse ectasia, as on prior study. Lungs: There is a new irregular 2.1 x 1.0 x 1.0 cm nodular lesion within the posterior aspect of the right upper lobe abutting the major fissure, as seen on axial image 260, series 7 and sagittal image 86, series 10. There are few regions of tiny subcentimeter nodular branching opacity around this larger lesion suggesting infectious small airways disease. There are increased dependent airspace opacities within both lung bases in a configuration suggesting atelectasis. Again noted is moderate centrilobular and paraseptal emphysema involving the upper lobes. Pleural spaces: There are new tiny pleural effusions. There is no evidence of pneumothorax. Heart: There is moderate cardiomegaly, as on prior study. There is a new very small pericardial effusion. Again noted is a prosthetic aortic valve. There is moderate coronary artery calcification. Lymph nodes: Again noted are prominent subcentimeter bilateral axillary lymph nodes, likely reactive. Liver: The liver demonstrates a lobular contour, suggesting cirrhosis, as on prior study. Spleen: The spleen measures 14 cm diameter, consistent with mild splenomegaly. Kidneys and ureters: Both pamunkey kidneys appear severely atrophic but are only partially imaged on this exam. Intraperitoneal space: There is increased small ascites within the upper abdomen. Bones/joints: There are postoperative changes of sternotomy with sternal wire placement. The hardware appears intact. There appears to be nonunion the sternum, with corticated margins. Soft tissues: There is increased moderate anasarca. IMPRESSION: 1. No pulmonary embolism identified. 2. Dilatation of the central pulmonary arteries, as on prior study, suggesting history of pulmonary hypertension. Recommend clinical correlation. 3. Moderate cardiomegaly, as on prior study. New tiny pleural effusions. 4. Increased basilar airspace opacities suggesting atelectasis. 5. New 2.1 x 1.0 x 1.0 cm irregular nodular lesion within the right upper lobe, may represent focal pneumonia but cannot exclude pulmonary neoplasm on this exam. For both low risk and high risk patients, consider CT Chest at 3 months, PET/CT, or biopsy. (Reference: [place]) 6. Moderate emphysema, as on prior study. 7. New double lumen right IJ line with tip residing in the region of the inferior cavoatrial junction. Recommend retraction by approximately 4 cm. 8. Mild fusiform dilatation of the ascending aorta, stable. Recommend clinical assessment and follow-up. REFERENCES: Refugiohotracy H, et al. Guidelines for Management of Incidental Pulmonary Nodules Detected on CT Images: From the Fleischner Society 2017. Radiology. 2017;284(1):228-243. Dictated and Authenticated by: Willard Haro MD. Ordering:JAMES Walker MD
--- NOTE | 2021-12-27 18:37 | ED.GENADUL_ITS ---
Discharge Plan Disposition Patient Disposition: HOME Condition: Stable Discharge Details Clinical Impression: COPD (chronic obstructive pulmonary disease), Pneumonia, Shortness of breath Primary Care Provider: Chano Neves ED Provider: Aaron Puente Home Meds and New Rx's Prescriptions: New prednisone 20 mg tablet 60 mg PO DAILY 4 Days Qty: 12 0RF levofloxacin 750 mg tablet 750 mg PO DAILY Qty: 5 0RF Continued Spiriva with HandiHaler 18 mcg capsule, w/inhalation device 1 cap inhalation DAILY Qty: 1 0RF Rx Instructions: puncture 1 cap using device; one dose = 2 inhalations from [facility] albuterol sulfate 2.5 mg /3 mL (0.083 %) solution for nebulization 2.5 mg inhalation Q6H PRN (Reason: shortness of breath or wheezing) Qty: 3 0RF Rx Instructions: VA aspirin 81 MG tablet,chewable 81 mg PO DAILY albuterol sulfate [ProAir HFA] 8.5 GM HFA aerosol inhaler 2 puff Inhalation Q4H PRN atorvastatin 40 mg tablet 20 mg PO DAILY minoxidil 2.5 mg tablet 2.5 mg PO QHS omeprazole 40 mg Capsule,Delayed Release(Dr/Ec) 40 mg PO BID meclizine 12.5 mg Tablet 12.5 mg PO PRN PRN (DME) Aerochamber MV Spacer MISCELLANEOUS Discharge Instructions Instructions: COPD (Chronic Obstructive Pulmonary Disease) (ED), Pneumonia (ED) Additional Instructions: follow up with your primary care provider within 1-2 weeks. You should have a follow up cat scan in 3 months to confirm your right upper lung is improving you have dialysis tomorrow morning if you feel more ill , feel more pain or significant more short of breath return to the emergency department Medical Decision Making patient signed out to me pending cta which shows no pe, no acute changes other than new 2.1x1xcm nodular lesion in right upper lobe suspicious for pneumonia vs neoplasm. She is feeling much better requesting d/c, has bilateral apical wheezing otherwise clear lungs. Discussed with her and given stable vitals and reassuring workup will start her on prednisone and levofloxacin. She is going to dialysis tomorrow, has nebulizers and oxygen at home. She states her ij line is being removed soon as her fistual is almost mature, is following up at [facility] for this and will f/u with pcp to confirm resuolution of lesion in her lungs, return precautions given Imaging Data Radiologic Study: Attestation: I personally reviewed and interpreted this imaging study as follows: Imaging: CT Scan Radiologist's impression: 1. No pulmonary embolism identified. 2. Dilatation of the central pulmonary arteries, as on prior study, suggesting history of pulmonary hypertension. Recommend clinical correlation. 3. Moderate cardiomegaly, as on prior study. New tiny pleural effusions. 4. Increased basilar airspace opacities suggesting atelectasis. 5. New 2.1 x 1.0 x 1.0 cm irregular nodular lesion within the right upper lobe, may represent focal pneumonia but cannot exclude pulmonary neoplasm on this exam. For both low risk and high risk patients, consider CT Chest at 3 months, PET/CT, or biopsy. (Reference: [facility]) 6. Moderate emphysema, as on prior study. 7. New double lumen right IJ line with tip residing in the region of the inferior cavoatrial junction. Recommend retraction by approximately 4 cm. 8. Mild fusiform dilatation of the ascending aorta, stable. Recommend clinical assessment and followup. Lab Data Lab results reviewed: Yes I reviewed the patient's lab results. HPI General Mode of arrival: ambulatory . Date/Time Provider Initiated Documentation: 12/27/21 13:20 . Limitations to Documentation: no limitations . Information obtained by: patient, RN notes reviewed and old records reviewed . Related Data Home Medications Medication Instructions Recorded Confirmed aspirin 81 mg chewable tablet 81 mg PO DAILY 05/24/16 12/27/21 albuterol sulfate 90 mcg/actuation 2 puff inhalation Q4H PRN 07/26/17 12/27/21 aerosol inhaler (ProAir HFA) inhalational spacing device 01/26/19 12/27/21 (Aerochamber MV spacer) meclizine 12.5 mg tablet 12.5 mg PO PRN PRN 03/18/19 12/27/21 omeprazole 40 mg capsule,delayed 40 mg PO BID 03/18/19 12/27/21 release atorvastatin 40 mg tablet 20 mg PO DAILY 10/24/19 12/27/21 albuterol sulfate 2.5 mg/3 mL 2.5 mg (3 mL) inhalation Q6H PRN 02/16/21 12/27/21 (0.083 %) solution for nebulization shortness of breath or wheezing #3 mL tiotropium bromide 18 mcg capsule 1 cap inhalation DAILY #1 inh 02/16/21 with inhalation device (Spiriva with HandiHaler) minoxidil 2.5 mg tablet 2.5 mg PO QHS 11/20/21 12/27/21 levofloxacin 750 mg tablet 750 mg PO DAILY #5 tabs 12/27/21 prednisone 20 mg tablet 60 mg PO DAILY 4 days #12 tabs 12/27/21 Previous Rx's Medication Instructions Recorded albuterol sulfate 2.5 mg/3 mL 2.5 mg (3 mL) inhalation Q6H PRN 02/16/21 (0.083 %) solution for nebulization shortness of breath or wheezing #3 mL tiotropium bromide 18 mcg capsule 1 cap inhalation DAILY #1 inh 02/16/21 with inhalation device (Spiriva with HandiHaler) levofloxacin 750 mg tablet 750 mg PO DAILY #5 tabs 12/27/21 prednisone 20 mg tablet 60 mg PO DAILY 4 days #12 tabs 12/27/21 Allergies Allergy/AdvReac Type Severity Reaction Status Date / Time cephalexin monohydrate Allergy Severe trouble Verified 12/27/21 12:08 [From Keflex] breathing colchicine Allergy Verified 12/27/21 12:08 allopurinol AdvReac Intermediate gout Verified 12/27/21 12:08 breakout erythromycin base AdvReac Intermediate gout Verified 12/27/21 12:08 breakout General Stated Complaint: GenMedical AWA: 3 PFSH All Active Problems (Updated 12/27/21 @ 18:41 by Aaron Puente MD) Pneumonia (Acute) Shortness of breath (Acute) Rib pain on left side (Acute) Pneumonia (Acute) Fall with injury (Acute) Tobacco abuse (Acute) Exposure to COVID-19 virus (Acute) Personal history of nicotine dependence (Acute) 02/2021 Aortic valve replaced (Acute) Bovine-with [facility] Hypertension (Chronic) Ventral hernia (Acute) Hemorrhage of arteriovenous fistula (Acute) Abdominal wall cellulitis (Acute) DNI (do not intubate) (Acute) DNR (do not resuscitate) (Acute) POLST (Physician Orders for Life-Sustaining Treatment) (Acute) COLST completed 02/13/2020, DNR/DNI. Cirrhosis, alcoholic (Acute) Tricuspid regurgitation (Acute) s/p tricuspid valve replacement 02/2020, bovine Central venous catheter in place (Acute ~10/29/19) [facility] [place] subclavian-dialysis COPD (chronic obstructive pulmonary disease) (Chronic) Pulmonary at [facility] ESRD on dialysis (Chronic) On hemodialysis currently using central catheter-nephrology at [facility] receives dialysis at [facility] Gallstones (Acute) Depression (Acute 08/28/14) COPD (chronic obstructive pulmonary disease) (Acute) End stage renal disease (Chronic) Medical History Acute bronchitis Acute respiratory failure with hypoxia Acute right-sided congestive heart failure [facility] [place]-05/12/17 Alcohol abuse Aortic stenosis Axillary lymphadenopathy Bleeding hemorrhoids (01/08/13) rectal bleeding (colonoscopy [facility] [place] 01/01/13 internal hemorrhoids and diverticuli) Cannabis dependence Chest tube in place 05/11/16~ [facility] [place] AV REPLACEMENT TUBE; REMOVE SUTURES ON OR AFTER 05/14/16 CKD (chronic kidney disease) stage 5, GFR less than 15 ml/min Community acquired pneumonia COPD (chronic obstructive pulmonary disease) Critical aortic valve stenosis s/p valve repalcement CVD (cardiovascular disease) Cyst of ovary (08/20/12) Depression (09/14/12) Diverticulitis of large intestine without perforation or abscess with bleeding Essential hypertension (01/16/13) severe and labile Gastroesophageal reflux disease with esophagitis (02/03/15) Hyperkalemia Hyperlipidemia Hyperparathyroidism, unspecified (02/09/11) 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[facility] [place] Left arm cellulitis Macular degeneration of left eye (~10/17/19) [facility] [place] Nail dystrophy Other psychoactive substance abuse, uncomplicated Palliative care 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 Right foot injury (10/19/16) Right heart failure Secondary hyperparathyroidism (of renal origin) Smoker Tinea cruris Umbilical hernia repaired 1995,1997,2001,2003 Upper GI bleed (05/17/14) 05/15/14 [facility] [place] EGD, HH, esophagitis, gastric ulcer and duodenitis Wound infection after surgery Surgical History Abdominal hysterectomy (~2006) s/p hyst, but cervix still present and needs yearly PAP due to transplant H/O aortic valve replacement History of kidney transplant Repair of umbilical hernia 1995,1997,2001,2003 TRANSPLANT, KIDNEY (~1997) LEFT Family History Mother Essential hypertension Personal history of malignant neoplasm KIDNEY Heart disease Pulmonary emphysema Father Personal history of malignant neoplasm Pulmonary emphysema Brother Hyperlipidemia Brother Hyperlipidemia Brother No problems noted. Social History Smoking/Tobacco Use Status: Former Tobacco Use Quit Date: 10/11/21 Smoking risk assessment performed?: Yes Alcohol Intake: former Drug use: Daily Substance use type: marijuana Details: mostly edibles Current gender identity: female Do you feel safe at home: Yes Do you feel safe in your relationship?: Yes Course Vital Signs Vital signs: Vital Signs Temperature 36.7 C 12/27/21 13:03 Pulse 90 12/27/21 13:03 Respiratory Rate 20 12/27/21 13:03 Blood Pressure 147/67 H 12/27/21 13:03 Pulse Oximetry 86 L 12/27/21 13:03 Temperature 36.7 C 12/27/21 13:03 Temperature Source Oral 12/27/21 13:03 Pulse 78 12/27/21 18:16 Pulse 78 12/27/21 18:20 Respiratory Rate 15 12/27/21 18:20 Respiratory Effort 12/27/21 14:29 Respiratory Depth Normal 12/27/21 14:29 Respiratory Pattern Normal 12/27/21 14:29 Blood Pressure 151/37 H 12/27/21 18:16 Blood Pressure Mean 67 12/27/21 18:16 Blood Pressure Position Sitting 12/27/21 13:03 Pulse Oximetry 93 12/27/21 18:20 Oxygen Delivery Method Nasal Cannula 12/27/21 14:11 Oxygen Flow Rate 2 12/27/21 14:11 Pain Level 0 12/27/21 15:38 Lab/Test Results Lab/Test Results: Laboratory Tests Range/Units 12/27/21 12/27/21 12/27/21 13:30 13:45 13:45 WBC (4.4-10.8) 10^3/uL 3.43 L RBC (3.93-5.22) 10^6/uL 3.58 L Hgb (11.2-15.7) g/dL 10.7 L Hct (36.0-46.0) % 33.9 L MCV (80-95) fL 95 MCH (27.0-33.0) pg 29.9 MCHC (32.0-36.0) % 31.6 L RDW (11.7-14.6) % 14.7 H Plt Count (130-400) 10^3/uL 110 L MPV (8.0-11.0) fL 11.3 H Immature Gran % 0.3 Neutrophils % 64.8 Lymphocytes % 12.5 Monocytes % 12.2 Eosinophils % 9.0 Basophils % 1.2 Nucleated RBC % (0.0-0.3) % 0.0 Absolute Neutrophils (1.2-6.7) 10^3/uL 2.22 Absolute Lymphocytes (1.2-3.4) 10^3/uL 0.43 L Absolute Monocytes (0.1-0.8) 10^3/uL 0.42 Absolute Eosinophils (0.0-0.7) 10^3/uL 0.31 Absolute Basophils (0.0-0.2) 10^3/uL 0.04 D-Dimer (<500) ng/mlFEU VBG Lactate (0.6-1.4) mmol/L Sodium (136-145) mmol/L 139 Potassium (3.5-5.1) mmol/L 3.3 L Chloride (98-107) mmol/L 97 L Carbon Dioxide (21.0-32.0) mmol/L 33.5 H Anion Gap (3-11) mmol/L 8.5 BUN (7-18) mg/dL 11 Creatinine (0.55-1.02) mg/dL 3.2 H Est GFR (CKD-EPI 2020) (mL/min/1.73m2) 16.17 Glucose (74-106) mg/dL 108 H Calcium (8.5-10.1) mg/dL 9.0 Total Bilirubin (0.2-1.0) mg/dL 0.7 AST (15-37) U/L 31 ALT (14-59) U/L 21 Alkaline Phosphatase (46-116) U/L 264 H Troponin I (<or=60) ng/L 53 NT-Pro-B Natriuret Pep (<300) pg/mL > 43775 H Total Protein (6.4-8.2) g/dL 7.7 Albumin (3.4-5.0) g/dL 3.9 COVID-19 Source Not Applicable SARS-CoV-2 (PCR) (Negative) Negative Influenza Type A (PCR) (Negative) Negative Influenza Type B (PCR) (Negative) Negative RSV (PCR) (Negative) Negative Range/Units 12/27/21 12/27/21 12/27/21 13:45 13:45 13:45 WBC (4.4-10.8) 10^3/uL RBC (3.93-5.22) 10^6/uL Hgb (11.2-15.7) g/dL Hct (36.0-46.0) % MCV (80-95) fL MCH (27.0-33.0) pg MCHC (32.0-36.0) % RDW (11.7-14.6) % Plt Count (130-400) 10^3/uL MPV (8.0-11.0) fL Immature Gran % Neutrophils % Lymphocytes % Monocytes % Eosinophils % Basophils % Nucleated RBC % (0.0-0.3) % Absolute Neutrophils (1.2-6.7) 10^3/uL Absolute Lymphocytes (1.2-3.4) 10^3/uL Absolute Monocytes (0.1-0.8) 10^3/uL Absolute Eosinophils (0.0-0.7) 10^3/uL Absolute Basophils (0.0-0.2) 10^3/uL D-Dimer (<500) ng/mlFEU 5377 H VBG Lactate (0.6-1.4) mmol/L 1.0 Sodium (136-145) mmol/L Potassium (3.5-5.1) mmol/L Chloride (98-107) mmol/L Carbon Dioxide (21.0-32.0) mmol/L Anion Gap (3-11) mmol/L BUN (7-18) mg/dL Creatinine (0.55-1.02) mg/dL Est GFR (CKD-EPI 2020) (mL/min/1.73m2) Glucose (74-106) mg/dL Calcium (8.5-10.1) mg/dL Total Bilirubin (0.2-1.0) mg/dL AST (15-37) U/L ALT (14-59) U/L Alkaline Phosphatase (46-116) U/L Troponin I (<or=60) ng/L NT-Pro-B Natriuret Pep (<300) pg/mL Cancelled Total Protein (6.4-8.2) g/dL Albumin (3.4-5.0) g/dL COVID-19 Source SARS-CoV-2 (PCR) (Negative) Influenza Type A (PCR) (Negative) Influenza Type B (PCR) (Negative) RSV (PCR) (Negative) Range/Units 12/27/21 17:00 WBC (4.4-10.8) 10^3/uL RBC (3.93-5.22) 10^6/uL Hgb (11.2-15.7) g/dL Hct (36.0-46.0) % MCV (80-95) fL MCH (27.0-33.0) pg MCHC (32.0-36.0) % RDW (11.7-14.6) % Plt Count (130-400) 10^3/uL MPV (8.0-11.0) fL Immature Gran % Neutrophils % Lymphocytes % Monocytes % Eosinophils % Basophils % Nucleated RBC % (0.0-0.3) % Absolute Neutrophils (1.2-6.7) 10^3/uL Absolute Lymphocytes (1.2-3.4) 10^3/uL Absolute Monocytes (0.1-0.8) 10^3/uL Absolute Eosinophils (0.0-0.7) 10^3/uL Absolute Basophils (0.0-0.2) 10^3/uL D-Dimer (<500) ng/mlFEU VBG Lactate (0.6-1.4) mmol/L Sodium (136-145) mmol/L Potassium (3.5-5.1) mmol/L Chloride (98-107) mmol/L Carbon Dioxide (21.0-32.0) mmol/L Anion Gap (3-11) mmol/L BUN (7-18) mg/dL Creatinine (0.55-1.02) mg/dL Est GFR (CKD-EPI 2020) (mL/min/1.73m2) Glucose (74-106) mg/dL Calcium (8.5-10.1) mg/dL Total Bilirubin (0.2-1.0) mg/dL AST (15-37) U/L ALT (14-59) U/L Alkaline Phosphatase (46-116) U/L Troponin I (<or=60) ng/L < 50 NT-Pro-B Natriuret Pep (<300) pg/mL Total Protein (6.4-8.2) g/dL Albumin (3.4-5.0) g/dL COVID-19 Source SARS-CoV-2 (PCR) (Negative) Influenza Type A (PCR) (Negative) Influenza Type B (PCR) (Negative) RSV (PCR) (Negative) Sign Out Sign Out Data: Sign Out Comment: Patient signed out to Dr. Puente at time of shift change with CT chest, reassessment pending Last updated by Ivy Cooper MD at 12/27/21 16:28
[2021-12-27] MEDS: levoFLOXacin 500 MG, levoFLOXacin 250 MG 750 MG PO (18:47)
== END 2021-12-27 18:48 | disposition home or self-care (01) ==
PROVIDERS: Student in an Organized Health Care Education/Training Program; Emergency Provider Emergency Medicine; PCP Family Medicine
DX: J44.0 Chronic obstructive pulmonary disease with (acute) lower respiratory infection (principal); J18.9 Pneumonia, unspecified organism; I12.0 Hypertensive chronic kidney disease with stage 5 chronic kidney disease or end stage renal disease; N18.6 End stage renal disease; Z99.2 Dependence on renal dialysis; Z87.891 Personal history of nicotine dependence; Z20.822 Contact with and (suspected) exposure to COVID-19
CPT/HCPCS: 71275; 80053; 87637; 93005; 94640; 96374; 99284; 99285; 71045; 83605; 83880; 84484; 85025; 85379; 93010; J2930; J3490; J7620

== ENCOUNTER 2021-12-29 15:56 | Emergency (ER) | payer MEDICARE, SELFPAY ==
[2021-12-29] VITALS (33 sets, daily range): BP systolic 102–175; BP diastolic 63–99; PULSE 93–98; RESP 15–20; TEMP 36.8; O2SAT 81–93
--- NOTE | 2021-12-29 16:30 | DI.CT_ITS ---
Exam(s) CT NECK W EXAM: CT NECK W CLINICAL HISTORY: submandibular edema TECHNIQUE: COMPARISON: CT CT CERVICAL SPINE WO from 09/17/2018 FINDINGS: CT examination of the cervical region was performed with intravenous infusion of 100 cc of Omnipaque 350. Images obtained through the upper thorax show pulmonary emphysematous changes and show dilatation of the main pulmonary artery which measures 46 millimeters in diameter, raising the possibility of pulmo nary arterial hypertension. No gross cervical mass or adenopathy. Motion artifact limits evaluation of pharyngeal and laryngeal structures. There is no gross airway obstruction. There is atheromatous disease of the carotid bifurcations bilaterally with the degree of stenosis of the proximal internal carotid arteries estimated at 50 percent of the luminal diameter bilaterally. Carotid arteries are not optimally visualized due to motion artifact. No gross abnormality of the salivary glands. No significant abnormality seen on visualized portions of the brain. IMPRESSION: Limited scan due to motion artifact. No gross cervical abnormality seen. Note is made of dilatation of the main pulmonary artery at 46 millimeters raising the possibility of pulmonary arterial hypertension Probable approximately 50 percent luminal diameter stenosis of proximal internal carotid arteries ambika aterally RADIATION DOSE DELIVERED: 270.63mGy.cm Total DLP !Error CTDIvol DATA REPOSITORY: All CT scans at this facility are submitted to the National Radiology Data Registry (NRDR) Dose Index Registry (DIR) with the [employer] ([employer]). RADIATION OPTIMIZATION: All CT scans at this facility use at least one of these dose optimization te chniques: automated exposure control; mA and/or kV adjustment per patient size (includes targeted exa ms where dose is matched to clinical indication); or iterative reconstruction.
[2021-12-29 17:06] LABS: Abs Immature Grans 0.01 10^3/uL (0.0-0.06); Absolute Lymphocyte Count 0.21 10^3/uL (1.2-3.4); Absolute Monocyte Count 0.12 10^3/uL (0.1-0.8); Absolute Neutrophil Count 2.35 10^3/uL (1.2-6.7); HCT 35.3 % (36.0-46.0); HGB 11.1 g/dL (11.2-15.7); Immature Grans % 0.4; Lymphocytes % 7.8; MCH 29.4 pg (27.0-33.0); MCHC 31.4 % (32.0-36.0); MCV 94 fL (80-95); MPV 12.3 fL (8.0-11.0); Monocytes % 4.5; Neutrophils % 87.3; Platelet Count 102 10^3/uL (130-400); RBC 3.77 10^6/uL (3.93-5.22); RDW 14.8 % (11.7-14.6); RDW-SD 51.1 fL; WBC 2.69 10^3/uL (4.4-10.8)
[2021-12-29 17:20] LABS: ALT 39 U/L (14-59); AST 58 U/L (15-37); Albumin 4.3 g/dL (3.4-5.0); Alkaline Phosphatase 285 U/L (46-116); Anion Gap 9.2 mmol/L (3-11); BUN 19 mg/dL (7-18); Bilirubin, Total 0.8 mg/dL (0.2-1.0); C-Reactive Protein 0.13 mg/dL (0.0-0.3); CO2 31.8 mmol/L (21.0-32.0); Calcium 9.5 mg/dL (8.5-10.1); Chloride 97 mmol/L (98-107); Estimated GFR 13.16 (mL/min/1.73m2); Glucose 128 mg/dL (74-106); Potassium 4.1 mmol/L (3.5-5.1); Sodium 138 mmol/L (136-145); Total Protein 8.5 g/dL (6.4-8.2)
[2021-12-29 17:22] LABS: CREATININE 3.8 mg/dL (0.55-1.02)
[2021-12-29] MEDS: Omnipaque 350 MG/ML 100 ML BTL IJ (18:36)
--- NOTE | 2021-12-29 19:25 | DI.VRAD_ITS ---
PROCEDURE INFORMATION: Exam: CT Neck With Contrast Exam date and time: 12/29/2021 6:14 PM Age: 56 years old Clinical indication: Submandibular edema TECHNIQUE: Imaging protocol: Computed tomography of the neck with contrast. Radiation optimization: All CT scans at this facility use at least one of these dose optimization techniques: automated exposure control; mA and/or kV adjustment per patient size (includes targeted exams where dose is matched to clinical indication); or iterative reconstruction. COMPARISON: CT CERVICAL SPINE WO 09/17/2018 8:09 AM FINDINGS: Limitations: Motion and streak artifact moderately limit the sensitivity of this examination. Mastoid air cells: Trace fluid seen in the bilateral mastoid air cells. Pharynx: No significant tonsillar enlargement. Larynx: Epiglottis is grossly normal. Prevertebral and retropharyngeal spaces: Not well evaluated. Salivary glands: The bilateral parotid and submandibular glands appear grossly unremarkable. Thyroid: No enlarged or calcified nodules visualized. Lymph nodes: No lymphadenopathy. Trachea: Visualized trachea is unremarkable. Lungs: Centrilobular emphysema noted. Bones/joints: No acute fracture. Prominent degenerative changes noted in the cervical spine with bilateral neural foraminal narrowing. Vasculature: Incidentally noted is a retropharyngeal course of the right internal carotid artery. Soft tissues: There is suggestion of subcutaneous edema in the submandibular region, however not well evaluated due to motion and streak artifact. IMPRESSION: 1. Suggestion of mild subcutaneous edema in the submandibular region and anterior neck, however not well evaluated due to prominent artifacts. If there is clinical concern for venous thrombosis, ultrasound may be obtained for further evaluation. 2. Prominent cervical spine degenerative changes. Dictated and Authenticated by: Sulma Brown MD. Ordering:FELA Broussard MD
[2021-12-29] MEDS: PIPERACILLIN/TAZO 3.375 GM in Normal Saline 50 ML IVPB (19:58)
--- NOTE | 2021-12-29 22:46 | W.ED.GENAD ---
Discharge Plan Disposition Patient Disposition: HOME Condition: Stable Discharge Details Clinical Impression: Cellulitis of submandibular region Primary Care Provider: Chano Neves ED Provider: Aarti Peralta Home Meds and New Rx's Prescriptions: New amoxicillin-pot clavulanate [Augmentin] 500-125 mg tablet 1 tab PO BID Qty: 14 0RF Rx Instructions: Take 1 tablet of the amoxicillin daily Bactrim DS that you have dialysis and he should take a dose of during your dialysis session and immediately after your dialysis session prednisone 20 mg tablet 20 mg PO DAILY Qty: 5 0RF Rx Instructions: take 20 mg daily for the next 4 days, take 1/2 tablet for the last two days Continued Spiriva with HandiHaler 18 mcg capsule, w/inhalation device 1 cap inhalation DAILY Qty: 1 0RF Rx Instructions: puncture 1 cap using device; one dose = 2 inhalations from [facility] albuterol sulfate 2.5 mg /3 mL (0.083 %) solution for nebulization 2.5 mg inhalation Q6H PRN (Reason: shortness of breath or wheezing) Qty: 3 0RF Rx Instructions: VA aspirin 81 MG tablet,chewable 81 mg PO DAILY albuterol sulfate [ProAir HFA] 8.5 GM HFA aerosol inhaler 2 puff Inhalation Q4H PRN atorvastatin 40 mg tablet 20 mg PO DAILY minoxidil 2.5 mg tablet 2.5 mg PO QHS omeprazole 40 mg Capsule,Delayed Release(Dr/Ec) 40 mg PO BID meclizine 12.5 mg Tablet 12.5 mg PO PRN PRN prednisone 20 mg tablet 60 mg PO DAILY 4 Days Qty: 12 0RF levofloxacin 750 mg tablet 750 mg PO DAILY Qty: 5 0RF (DME) Aerochamber MV Spacer MISCELLANEOUS Discharge Instructions Instructions: Cellulitis (ED) Additional Instructions: Please go to your dialysis session on Monday You received a dose of your antibiotic today, take your antibiotic once daily and on days he has dialysis take the antibiotic during dialysis and that immediately following Recheck in the emergency department in 12 to 24 hours for reassessment and immediate return should you have new or worsening complaints Extend your prednisone for another 5 days Referrals: Chano Neves MD [Primary Care Provider] - 1 day Discharge Data Discharge Date/Time-TO BE ENTERED AT DEPARTURE: 12/29/21 21:57 Medical Decision Making Patient appears chronically ill but in no acute distress She has mild submandibular swelling and pink discoloration She has no evidence of intraoral lesion, specifically no dental tenderness on exam Maintaining secretions, uvula midline, no trismus CT scan does not show evidence of significant acute abnormality, specifically no airway compromise Labs are stable for patient with compared to prior, encouraged to discontinue Levaquin, placed on Augmentin, 500 mg, 1 tablet daily aside from days with dialysis which she will take 2 tablets Will need recheck tomorrow, 12 to 24 hours recommended Will take Augmentin, will extend prednisone We talked about admission, however there are no beds available at this facility and the patient was willing to be transferred to the [place], however they were unable to accept patient secondary capacity Patient therefore would like to be discharged home with close outpatient reassessment Medical Records Medical records reviewed: Yes I reviewed the patient's medical records. Lab Data Lab results reviewed: Yes I reviewed the patient's lab results. HPI General Date/Time Provider Initiated Documentation: 12/29/21 15:58. HPI Narrative: This 66-year-old female presents with submandibular swelling. She denies fever or chills. She states that she has a scratchy throat noticed swelling underneath her chin. She denies any fever or chills. She states it is slightly painful. She denies any dental pain. She denies any difficulty swallowing. She is taking Levaquin for bronchitis. She is also taking prednisone for bronchitis. Last dialysis was today. Was sent in by her primary care physician for CT scan. Denies history of similar symptoms in the past. Denies pain with chewing or opening jaw. Denies any stiff neck. Denies new chest pain or shortness of breath. Denies globus sensation. Related Data Home Medications Medication Instructions Recorded Confirmed aspirin 81 mg chewable tablet 81 mg PO DAILY 05/24/16 12/30/21 albuterol sulfate 90 mcg/actuation 2 puff inhalation Q4H PRN 07/26/17 12/30/21 aerosol inhaler (ProAir HFA) inhalational spacing device 01/26/19 12/30/21 (Aerochamber MV spacer) meclizine 12.5 mg tablet 12.5 mg PO PRN PRN 03/18/19 12/30/21 omeprazole 40 mg capsule,delayed 40 mg PO BID 03/18/19 12/30/21 release atorvastatin 40 mg tablet 20 mg PO DAILY 10/24/19 12/30/21 albuterol sulfate 2.5 mg/3 mL 2.5 mg (3 mL) inhalation Q6H PRN 02/16/21 12/30/21 (0.083 %) solution for nebulization shortness of breath or wheezing #3 mL tiotropium bromide 18 mcg capsule 1 cap inhalation DAILY #1 inh 02/16/21 12/30/21 with inhalation device (Spiriva with HandiHaler) minoxidil 2.5 mg tablet 2.5 mg PO QHS 11/20/21 12/30/21 levofloxacin 750 mg tablet 750 mg PO DAILY #5 tabs 12/27/21 12/30/21 prednisone 20 mg tablet 60 mg PO DAILY 4 days #12 tabs 12/27/21 12/30/21 amoxicillin 500 mg-potassium 1 tab PO BID #14 tabs 12/29/21 12/30/21 clavulanate 125 mg tablet (Augmentin) prednisone 20 mg tablet 20 mg PO DAILY #5 tabs 12/29/21 12/30/21 Previous Rx's Medication Instructions Recorded albuterol sulfate 2.5 mg/3 mL 2.5 mg (3 mL) inhalation Q6H PRN 02/16/21 (0.083 %) solution for nebulization shortness of breath or wheezing #3 mL tiotropium bromide 18 mcg capsule 1 cap inhalation DAILY #1 inh 02/16/21 with inhalation device (Spiriva with HandiHaler) levofloxacin 750 mg tablet 750 mg PO DAILY #5 tabs 12/27/21 prednisone 20 mg tablet 60 mg PO DAILY 4 days #12 tabs 12/27/21 amoxicillin 500 mg-potassium 1 tab PO BID #14 tabs 12/29/21 clavulanate 125 mg tablet (Augmentin) prednisone 20 mg tablet 20 mg PO DAILY #5 tabs 12/29/21 Allergies Allergy/AdvReac Type Severity Reaction Status Date / Time cephalexin monohydrate Allergy Severe trouble Verified 12/29/21 14:46 [From Keflex] breathing colchicine Allergy Verified 12/29/21 14:46 allopurinol AdvReac Intermediate gout Verified 12/29/21 14:46 breakout erythromycin base AdvReac Intermediate gout Verified 12/29/21 14:46 breakout General Stated Complaint: GenMedical AWA: 4 Review of Systems All systems reviewed & are unremarkable except as noted in HPI and below PFSH All Active Problems Cellulitis of submandibular region (Acute) Submandibular gland swelling (Acute) Pneumonia (Acute) Shortness of breath (Acute) Rib pain on left side (Acute) Pneumonia (Acute) Fall with injury (Acute) Tobacco abuse (Acute) Exposure to COVID-19 virus (Acute) Personal history of nicotine dependence (Acute) 02/2021 Aortic valve replaced (Acute) Bovine-with [facility] Hypertension (Chronic) Ventral hernia (Acute) Hemorrhage of arteriovenous fistula (Acute) Abdominal wall cellulitis (Acute) DNI (do not intubate) (Acute) DNR (do not resuscitate) (Acute) POLST (Physician Orders for Life-Sustaining Treatment) (Acute) COLST completed 02/13/2020, DNR/DNI. Cirrhosis, alcoholic (Acute) Tricuspid regurgitation (Acute) s/p tricuspid valve replacement 02/2020, bovine Central venous catheter in place (Acute ~10/29/19) [facility] [place], right subclavian-dialysis COPD (chronic obstructive pulmonary disease) (Chronic) Pulmonary at [place] ESRD on dialysis (Chronic) On hemodialysis currently using central catheter-nephrology at [facility] receives dialysis at [facility] Gallstones (Acute) Depression (Acute 08/28/14) COPD (chronic obstructive pulmonary disease) (Acute) End stage renal disease (Chronic) Medical History Acute bronchitis Acute respiratory failure with hypoxia Acute right-sided congestive heart failure [facility] [place]-05/12/17 Alcohol abuse Aortic stenosis Axillary lymphadenopathy Bleeding hemorrhoids (01/08/13) rectal bleeding (colonoscopy [facility] [place] 01/01/13 internal hemorrhoids and diverticuli) Cannabis dependence Chest tube in place 05/11/16~ [facility] [place] AV REPLACEMENT TUBE; REMOVE SUTURES ON OR AFTER 05/14/16 CKD (chronic kidney disease) stage 5, GFR less than 15 ml/min Community acquired pneumonia COPD (chronic obstructive pulmonary disease) Critical aortic valve stenosis s/p valve repalcement CVD (cardiovascular disease) Cyst of ovary (08/20/12) Depression (09/14/12) Diverticulitis of large intestine without perforation or abscess with bleeding Essential hypertension (01/16/13) severe and labile Gastroesophageal reflux disease with esophagitis (02/03/15) Hyperkalemia Hyperlipidemia Hyperparathyroidism, unspecified (02/09/11) 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[facility] [place] Left arm cellulitis Macular degeneration of left eye (~10/17/19) [facility] [place] Nail dystrophy Other psychoactive substance abuse, uncomplicated Palliative care 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 Right foot injury (10/19/16) Right heart failure Secondary hyperparathyroidism (of renal origin) Smoker Tinea cruris Umbilical hernia repaired 1995,1997,2001,2003 Upper GI bleed (05/17/14) 05/15/14 [facility] [place] EGD, HH, esophagitis, gastric ulcer and duodenitis Wound infection after surgery Surgical History Abdominal hysterectomy (~2006) s/p hyst, but cervix still present and needs yearly PAP due to transplant H/O aortic valve replacement History of kidney transplant Repair of umbilical hernia 1995,1997,2001,2003 TRANSPLANT, KIDNEY (~1997) LEFT Family History Mother Essential hypertension Personal history of malignant neoplasm KIDNEY Heart disease Pulmonary emphysema Father Personal history of malignant neoplasm Pulmonary emphysema Brother Hyperlipidemia Brother Hyperlipidemia Brother No problems noted. Social History Smoking/Tobacco Use Status: Former Tobacco Use Quit Date: 10/11/21 Smoking risk assessment performed?: Yes Alcohol Intake: former Drug use: Daily Substance use type: marijuana Details: mostly edibles Current gender identity: female Do you feel safe at home: Yes Do you feel safe in your relationship?: Yes Exam Const General: cooperative, no acute distress and frail appearing Orientation: alert and oriented x3 HENMT Head: normal to inspection Head images: 1. Swelling and mild erythema, no submandibular lymphadenopathy Mouth: oral mucosae normal Other: uvula midline Eyes Sclera: sclerae normal Resp Effort & Inspection: normal respiratory effort Auscultation: clear to auscultation bilaterally Cardio Rate: regular rate Rhythm: regular rhythm Neuro General: patient alert Course Vital Signs Vital signs: Vital Signs Temperature 36.8 C 12/29/21 16:03 Pulse 98 H 12/29/21 16:03 Respiratory Rate 20 12/29/21 16:03 Blood Pressure 102/81 12/29/21 16:03 Pulse Oximetry 93 12/29/21 16:03 Temperature 36.8 C 12/29/21 16:03 Temperature Source Oral 12/29/21 16:03 Pulse 98 H 12/29/21 21:56 Respiratory Rate 15 12/29/21 21:56 Respiratory Effort 12/29/21 18:58 Respiratory Depth Normal 12/29/21 18:58 Respiratory Pattern Normal 12/29/21 18:58 Blood Pressure 139/82 12/29/21 21:56 Blood Pressure Mean 107 12/29/21 21:16 Blood Pressure Position Sitting 12/29/21 16:03 Pulse Oximetry 93 12/29/21 21:56 Oxygen Delivery Method Room Air 12/29/21 16:03 Oxygen Flow Rate 0 12/29/21 16:03 Pain Level 0 12/29/21 21:56 Lab/Test Results Lab/Test Results: Laboratory Tests Range/Units 12/29/21 12/29/21 16:56 16:56 WBC (4.4-10.8) 10^3/uL 2.69 L RBC (3.93-5.22) 10^6/uL 3.77 L Hgb (11.2-15.7) g/dL 11.1 L Hct (36.0-46.0) % 35.3 L MCV (80-95) fL 94 MCH (27.0-33.0) pg 29.4 MCHC (32.0-36.0) % 31.4 L RDW (11.7-14.6) % 14.8 H Plt Count (130-400) 10^3/uL 102 L MPV (8.0-11.0) fL 12.3 H Immature Gran % 0.4 Neutrophils % 87.3 Lymphocytes % 7.8 Monocytes % 4.5 Eosinophils % 0.0 Basophils % 0.0 Nucleated RBC % (0.0-0.3) % 0.0 Absolute Neutrophils (1.2-6.7) 10^3/uL 2.35 Absolute Lymphocytes (1.2-3.4) 10^3/uL 0.21 L Absolute Monocytes (0.1-0.8) 10^3/uL 0.12 Absolute Eosinophils (0.0-0.7) 10^3/uL 0.00 Absolute Basophils (0.0-0.2) 10^3/uL 0.00 Sodium (136-145) mmol/L 138 Potassium (3.5-5.1) mmol/L 4.1 Chloride (98-107) mmol/L 97 L Carbon Dioxide (21.0-32.0) mmol/L 31.8 Anion Gap (3-11) mmol/L 9.2 BUN (7-18) mg/dL 19 H Creatinine (0.55-1.02) mg/dL 3.8 H* Est GFR (CKD-EPI 2020) (mL/min/1.73m2) 13.16 Glucose (74-106) mg/dL 128 H Calcium (8.5-10.1) mg/dL 9.5 Total Bilirubin (0.2-1.0) mg/dL 0.8 AST (15-37) U/L 58 H ALT (14-59) U/L 39 Alkaline Phosphatase (46-116) U/L 285 H C-Reactive Protein (0.0-0.3) mg/dL 0.13 Total Protein (6.4-8.2) g/dL 8.5 H Albumin (3.4-5.0) g/dL 4.3
== END 2021-12-29 21:57 | disposition home or self-care (01) ==
PROVIDERS: Emergency Provider Physician Assistant; PCP Family Medicine
DX: K12.2 Cellulitis and abscess of mouth (principal); I13.2 Hypertensive heart and chronic kidney disease with heart failure and with stage 5 chronic kidney disease, or end stage renal disease; I50.811 Acute right heart failure; N18.6 End stage renal disease; Z99.2 Dependence on renal dialysis; J44.9 Chronic obstructive pulmonary disease, unspecified; Z79.52 Long term (current) use of systemic steroids
CPT/HCPCS: 70491; 80053; 96365; 99285; 85025; 86140; 99284; J2543; J3490

== ENCOUNTER 2021-12-30 10:35 | Emergency (ER) | payer MEDICARE, SELFPAY ==
[2021-12-30 10:40] VITALS: BP 178/90; PULSE 74; RESP 18; TEMP 37.3; O2SAT 92
--- NOTE | 2021-12-30 10:50 | W.ED.GENAD ---
Discharge Plan Disposition Patient Disposition: HOME Condition: Improving Discharge Details Clinical Impression: Submandibular gland swelling, Cellulitis of submandibular region Primary Care Provider: Chano Neves ED Provider: Kirt Sky Home Meds and New Rx's Prescriptions: Continued Spiriva with HandiHaler 18 mcg capsule, w/inhalation device 1 cap inhalation DAILY Qty: 1 0RF Rx Instructions: puncture 1 cap using device; one dose = 2 inhalations from VA albuterol sulfate 2.5 mg /3 mL (0.083 %) solution for nebulization 2.5 mg inhalation Q6H PRN (Reason: shortness of breath or wheezing) Qty: 3 0RF Rx Instructions: VA aspirin 81 MG tablet,chewable 81 mg PO DAILY albuterol sulfate [ProAir HFA] 8.5 GM HFA aerosol inhaler 2 puff Inhalation Q4H PRN atorvastatin 40 mg tablet 20 mg PO DAILY minoxidil 2.5 mg tablet 2.5 mg PO QHS omeprazole 40 mg Capsule,Delayed Release(Dr/Ec) 40 mg PO BID meclizine 12.5 mg Tablet 12.5 mg PO PRN PRN prednisone 20 mg tablet 60 mg PO DAILY 4 Days Qty: 12 0RF amoxicillin-pot clavulanate [Augmentin] 500-125 mg tablet 1 tab PO BID Qty: 14 0RF Rx Instructions: Take 1 tablet of the amoxicillin daily Bactrim DS that you have dialysis and he should take a dose of during your dialysis session and immediately after your dialysis session prednisone 20 mg tablet 20 mg PO DAILY Qty: 5 0RF Rx Instructions: take 20 mg daily for the next 4 days, take 1/2 tablet for the last two days (DME) Aerochamber MV Spacer MISCELLANEOUS No Action levofloxacin 750 mg tablet 750 mg PO DAILY Qty: 5 0RF Discharge Instructions Instructions: Cellulitis (ED) Additional Instructions: You were given the morning dose of prednisone and Augmentin today. Please fill the prescriptions and continue the course of treatment. Return for any acute concern Medical Decision Making 56-year-old female presents for recheck. She was diagnosed with submandibular cellulitis that had occurred following some upper respiratory illness which has been treated with Levaquin and prednisone. She been placed on more persistent prednisone burst yesterday and switched from Levaquin to Augmentin. Today she is improving. She has not yet had a chance to fill her prescription therefore was given a dose of both prednisone and Augmentin. She is stable and appropriate for discharge to home. HPI General Mode of arrival: ambulatory. Date/Time Provider Initiated Documentation: 12/30/21 10:36. Limitations to Documentation: no limitations. Information obtained by: patient. History of Present Illness 56 year old F presents to the emergency department with the chief complaint of Recheck of submandibular swelling and cellulitis, described as moderate, Quality is described as dull, and is localized to the face. Patient reports no radiation. and it has been constant. No relieving factors improve symptom(s), No exacerbating factors reported . Patient notes no other symptoms.. Patient did receive the following treatments prior to arrival, none Related Data Home Medications Medication Instructions Recorded Confirmed aspirin 81 mg chewable tablet 81 mg PO DAILY 05/24/16 12/30/21 albuterol sulfate 90 mcg/actuation 2 puff inhalation Q4H PRN 07/26/17 12/30/21 aerosol inhaler (ProAir HFA) inhalational spacing device 01/26/19 12/30/21 (Aerochamber MV spacer) meclizine 12.5 mg tablet 12.5 mg PO PRN PRN 03/18/19 12/30/21 omeprazole 40 mg capsule,delayed 40 mg PO BID 03/18/19 12/30/21 release atorvastatin 40 mg tablet 20 mg PO DAILY 10/24/19 12/30/21 albuterol sulfate 2.5 mg/3 mL 2.5 mg (3 mL) inhalation Q6H PRN 02/16/21 12/30/21 (0.083 %) solution for nebulization shortness of breath or wheezing #3 mL tiotropium bromide 18 mcg capsule 1 cap inhalation DAILY #1 inh 02/16/21 12/30/21 with inhalation device (Spiriva with HandiHaler) minoxidil 2.5 mg tablet 2.5 mg PO QHS 11/20/21 12/30/21 levofloxacin 750 mg tablet 750 mg PO DAILY #5 tabs 12/27/21 12/30/21 prednisone 20 mg tablet 60 mg PO DAILY 4 days #12 tabs 12/27/21 12/30/21 amoxicillin 500 mg-potassium 1 tab PO BID #14 tabs 12/29/21 12/30/21 clavulanate 125 mg tablet (Augmentin) prednisone 20 mg tablet 20 mg PO DAILY #5 tabs 12/29/21 12/30/21 Previous Rx's Medication Instructions Recorded albuterol sulfate 2.5 mg/3 mL 2.5 mg (3 mL) inhalation Q6H PRN 02/16/21 (0.083 %) solution for nebulization shortness of breath or wheezing #3 mL tiotropium bromide 18 mcg capsule 1 cap inhalation DAILY #1 inh 02/16/21 with inhalation device (Spiriva with HandiHaler) levofloxacin 750 mg tablet 750 mg PO DAILY #5 tabs 12/27/21 prednisone 20 mg tablet 60 mg PO DAILY 4 days #12 tabs 12/27/21 amoxicillin 500 mg-potassium 1 tab PO BID #14 tabs 12/29/21 clavulanate 125 mg tablet (Augmentin) prednisone 20 mg tablet 20 mg PO DAILY #5 tabs 12/29/21 Allergies Allergy/AdvReac Type Severity Reaction Status Date / Time cephalexin monohydrate Allergy Severe trouble Verified 12/29/21 14:46 [From Keflex] breathing colchicine Allergy Verified 12/29/21 14:46 allopurinol AdvReac Intermediate gout Verified 12/29/21 14:46 breakout erythromycin base AdvReac Intermediate gout Verified 12/29/21 14:46 breakout General Stated Complaint: GenMedical AWA: 3 Review of Systems Narrative: 6 systems reviewed and otherwise negative. No change to voice. Normal shortness of breath that is unchanged. No change to chronic cough. PFSH All Active Problems Cellulitis of submandibular region (Acute) Submandibular gland swelling (Acute) Pneumonia (Acute) Shortness of breath (Acute) Rib pain on left side (Acute) Pneumonia (Acute) Fall with injury (Acute) Tobacco abuse (Acute) Exposure to COVID-19 virus (Acute) Personal history of nicotine dependence (Acute) 02/2021 Aortic valve replaced (Acute) Bovine-with [facility] Hypertension (Chronic) Ventral hernia (Acute) Hemorrhage of arteriovenous fistula (Acute) Abdominal wall cellulitis (Acute) DNI (do not intubate) (Acute) DNR (do not resuscitate) (Acute) POLST (Physician Orders for Life-Sustaining Treatment) (Acute) COLST completed 02/13/2020, DNR/DNI. Cirrhosis, alcoholic (Acute) Tricuspid regurgitation (Acute) s/p tricuspid valve replacement 02/2020, bovine Central venous catheter in place (Acute ~10/29/19) [facility], right subclavian-dialysis COPD (chronic obstructive pulmonary disease) (Chronic) Pulmonary at [place] ESRD on dialysis (Chronic) On hemodialysis currently using central catheter-nephrology at [facility] receives dialysis at [facility] Gallstones (Acute) Depression (Acute 08/28/14) COPD (chronic obstructive pulmonary disease) (Acute) End stage renal disease (Chronic) Medical History Acute bronchitis Acute respiratory failure with hypoxia Acute right-sided congestive heart failure [facility]-05/12/17 Alcohol abuse Aortic stenosis Axillary lymphadenopathy Bleeding hemorrhoids (01/08/13) rectal bleeding (colonoscopy [facility] 01/01/13 internal hemorrhoids and diverticuli) Cannabis dependence Chest tube in place 05/11/16~ [facility] AV REPLACEMENT TUBE; REMOVE SUTURES ON OR AFTER 05/14/16 CKD (chronic kidney disease) stage 5, GFR less than 15 ml/min Community acquired pneumonia COPD (chronic obstructive pulmonary disease) Critical aortic valve stenosis s/p valve repalcement CVD (cardiovascular disease) Cyst of ovary (08/20/12) Depression (09/14/12) Diverticulitis of large intestine without perforation or abscess with bleeding Essential hypertension (01/16/13) severe and labile Gastroesophageal reflux disease with esophagitis (02/03/15) Hyperkalemia Hyperlipidemia Hyperparathyroidism, unspecified (02/09/11) 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[facility] Left arm cellulitis Macular degeneration of left eye (~10/17/19) [facility] Nail dystrophy Other psychoactive substance abuse, uncomplicated Palliative care 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 Right foot injury (10/19/16) Right heart failure Secondary hyperparathyroidism (of renal origin) Smoker Tinea cruris Umbilical hernia repaired 1995,1997,2001,2003 Upper GI bleed (05/17/14) 05/15/14 [facility] EGD, HH, esophagitis, gastric ulcer and duodenitis Wound infection after surgery Surgical History Abdominal hysterectomy (~2006) s/p hyst, but cervix still present and needs yearly PAP due to transplant H/O aortic valve replacement History of kidney transplant Repair of umbilical hernia 1995,1997,2001,2003 TRANSPLANT, KIDNEY (~1997) LEFT Family History Mother Essential hypertension Personal history of malignant neoplasm KIDNEY Heart disease Pulmonary emphysema Father Personal history of malignant neoplasm Pulmonary emphysema Brother Hyperlipidemia Brother Hyperlipidemia Brother No problems noted. Social History Smoking/Tobacco Use Status: Former Tobacco Use Quit Date: 10/11/21 Smoking risk assessment performed?: Yes Alcohol Intake: former Drug use: Daily Substance use type: marijuana Details: mostly edibles Current gender identity: female Do you feel safe at home: Yes Do you feel safe in your relationship?: Yes Exam Narrative Exam Narrative: GEN: awake, alert, oriented 3. Pleasant, well groomed, interactive. HEAD: Normocephalic, atraumatic ENT: Mucous membranes moist, oropharynx unremarkable, submandibular lymphadenopathy present bilaterally. No intraoral lesions. External ear exam unremarkable EYES: PERRL, EOMI NECK: Full ROM, no MIK, no menigismus CHEST/RESP: Scant, scattered end expiratory wheeze. Speaking in full sentences. CARDIOVASCULAR: Distant, RRR, no murmur, rub sergio. 2+ Rad pulse bilateral EXT: Full ROM, no edema, no rash Neuro: Grossly normal neurologic exam, conversant, interactive. Psych: Speech fluent, thoughts congruent, affect normal Course Vital Signs Vital signs: Vital Signs Temperature 37.3 C 12/30/21 10:40 Pulse 74 12/30/21 10:40 Respiratory Rate 18 12/30/21 10:40 Blood Pressure 178/90 H 12/30/21 10:40 Pulse Oximetry 92 12/30/21 10:40 Temperature 37.3 C 12/30/21 10:40 Temperature Source Temporal Artery Scan 12/30/21 10:40 Pulse 74 12/30/21 10:40 Respiratory Rate 18 12/30/21 10:40 Blood Pressure 178/90 H 12/30/21 10:40 Blood Pressure Position Sitting 12/30/21 10:40 Pulse Oximetry 92 12/30/21 10:40 Oxygen Delivery Method Room Air 12/30/21 10:40 Oxygen Flow Rate 0 12/30/21 10:40
[2021-12-30] MEDS: Amoxicillin 875/Clav. 125 TAB PO (10:58)
[2021-12-30 10:59] VITALS: RESP 20
[2021-12-30] MEDS: predniSONE 20 MG TAB 60 MG PO (10:59)
== END 2021-12-30 11:01 | disposition home or self-care (01) ==
LOC: ER 10:56
PROVIDERS: Emergency Provider Emergency Medicine; PCP Family Medicine
DX: K12.2 Cellulitis and abscess of mouth (principal); I13.2 Hypertensive heart and chronic kidney disease with heart failure and with stage 5 chronic kidney disease, or end stage renal disease; I50.811 Acute right heart failure; N18.6 End stage renal disease; J44.9 Chronic obstructive pulmonary disease, unspecified; Z79.52 Long term (current) use of systemic steroids
CPT/HCPCS: 99283; 99284; J7512

== ENCOUNTER 2022-01-21 10:52 | Outpatient (CLI) | payer MEDICARE, SELFPAY ==
--- NOTE | 2022-01-21 09:45 | DI.US_ITS ---
Exam(s) US LOWER EXTREMITY VENOUS LT EXAM: US LOWER EXTREMITY VENOUS LT CLINICAL HISTORY: inner thigh ecchymoses and nodules / ? clots R22.42 SWELLING LT LEG R58 TECHNIQUE: Grayscale, color, and doppler imaging of the deep venous system of the left lower extremi ty was performed. COMPARISON: US US SOFT TISSUE EXTREMITY from 07/10/2020 FINDINGS: There is no evidence of intraluminal thrombus and there is normal compression and augmentation demons trated within the common femoral vein, femoral vein, and popliteal vein. In the ipsilateral calf the interrogated veins also exhibit normal compression/ augmentation properti es. The ipsilateral saphenofemoral junction is patent. IMPRESSION: 1. No evidence of DVT in the LEFT lower extremity. DATA REPOSITORY:
== END 2022-01-21 11:12 ==
LOC: DI 10:54
PROVIDERS: PCP Family Medicine; Visit Provider Family Medicine
DX: K70.30 Alcoholic cirrhosis of liver without ascites (principal); R22.42 Localized swelling, mass and lump, left lower limb; R58 Hemorrhage, not elsewhere classified
CPT/HCPCS: 93971

== ENCOUNTER 2022-01-28 08:47 | Emergency (ER) | payer MEDICARE, SELFPAY ==
--- NOTE | 2022-01-28 08:45 | RT.EKG_ITS ---
APPROVED REPORT Exam: Resting ECG Reason for Exam: Dyspnea Patient Location: E HR:65 bpm ECG Measurements Heart Rate 65 AXIS RI 184 P 31 QRSd 165 QRS 78 QT 487 T -9 QTc 509 Conclusion Sinus rhythm...normal P axis, V-rate 60- 99 Right bundle branch block...QRSd>120, terminal axis(90,270) sinus rhythm. normal axis, RBBB
[2022-01-28 08:48] VITALS: BP 123/59; PULSE 71; RESP 22; TEMP 36.7; O2SAT 99
[2022-01-28 08:54] VITALS: RESP 22
--- NOTE | 2022-01-28 09:00 | DI.RAD_ITS ---
Exam(s) XR PORTABLE CHEST AP EXAM: XR PORTABLE CHEST AP CLINICAL HISTORY: Shortness of breath. TECHNIQUE: 2D digital imaging was performed. COMPARISON: CR XR PORTABLE CHEST AP from 12/27/2021 FINDINGS: Single AP portable view. There is sternotomy wires and prosthetic heart valves again noted. Distal tip of the right supra cla vi in dialysis catheter is in the right atrium, unchanged. Cardiomegaly again noted. The mediastinum is not widened. No confluent infiltrates nor pleural effusions and there is no evidence of pulmonary edema. No pneum othorax. IMPRESSION: Lungs are presently clear.Other findings as above. DATA REPOSITORY: RADIATION DOSE DELIVERED:
[2022-01-28 09:37] VITALS: RESP 5
[2022-01-28] MEDS: Albuterol/Ipratropium 3 ML UPD VIAL 6 ML UPD (09:37)
[2022-01-28] MEDS: methylPREDNISolone SUCC 125 MG VIAL IVP (09:37)
[2022-01-28 09:45] LABS: Abs Immature Grans 0.02 10^3/uL (0.0-0.06); Absolute Basophil Count 0.05 10^3/uL (0.0-0.2); Absolute Eosinophil Count 0.61 10^3/uL (0.0-0.7); Absolute Lymphocyte Count 0.42 10^3/uL (1.2-3.4); Absolute Monocyte Count 0.52 10^3/uL (0.1-0.8); Absolute Neutrophil Count 2.24 10^3/uL (1.2-6.7); Basophils % 1.3; Eosinophils % 15.8; HCT 30.8 % (36.0-46.0); HGB 9.4 g/dL (11.2-15.7); Immature Grans % 0.5; Lymphocytes % 10.9; MCH 29.7 pg (27.0-33.0); MCHC 30.5 % (32.0-36.0); MCV 97 fL (80-95); Monocytes % 13.5; Platelet Count 137 10^3/uL (130-400); RBC 3.17 10^6/uL (3.93-5.22); RDW 16.4 % (11.7-14.6); RDW-SD 58.4 fL; WBC 3.86 10^3/uL (4.4-10.8)
[2022-01-28 10:03] LABS: ALT 20 U/L (14-59); AST 30 U/L (15-37); Albumin 3.7 g/dL (3.4-5.0); Alkaline Phosphatase 281 U/L (46-116); Anion Gap 10.4 mmol/L (3-11); BUN 42 mg/dL (7-18); Bilirubin, Total 0.6 mg/dL (0.2-1.0); CO2 30.6 mmol/L (21.0-32.0); Calcium 8.7 mg/dL (8.5-10.1); Chloride 98 mmol/L (98-107); Estimated GFR 7.61 (mL/min/1.73m2); Glucose 84 mg/dL (74-106); Potassium 4.6 mmol/L (3.5-5.1); Sodium 139 mmol/L (136-145); Total Protein 7.5 g/dL (6.4-8.2); Troponin I < 50 ng/L (<or=60)
--- NOTE | 2022-01-28 10:05 | W.ED.GENAD ---
Discharge Plan Disposition Patient Disposition: Home Condition: Improving Discharge Details Clinical Impression: COPD exacerbation Primary Care Provider: Chano Neves ED Provider: Benjy Espinoza Home Meds and New Rx's Prescriptions: New doxycycline hyclate 100 mg capsule 100 mg PO BID Qty: 10 0RF prednisone 20 mg tablet 40 mg PO DAILY Qty: 10 0RF Continued Spiriva with HandiHaler 18 mcg capsule, w/inhalation device 1 cap inhalation DAILY Qty: 1 0RF Rx Instructions: puncture 1 cap using device; one dose = 2 inhalations from [facility] albuterol sulfate 2.5 mg /3 mL (0.083 %) solution for nebulization 2.5 mg inhalation Q6H PRN (Reason: shortness of breath or wheezing) Qty: 3 0RF Rx Instructions: VA aspirin 81 MG tablet,chewable 81 mg PO DAILY albuterol sulfate [ProAir HFA] 8.5 GM HFA aerosol inhaler 2 puff Inhalation Q4H PRN atorvastatin 40 mg tablet 20 mg PO DAILY minoxidil 2.5 mg tablet 5 mg PO QHS omeprazole 40 mg Capsule,Delayed Release(Dr/Ec) 40 mg PO BID meclizine 12.5 mg Tablet 12.5 mg PO PRN PRN (DME) Aerochamber MV Spacer MISCELLANEOUS Discharge Instructions Instructions: COPD (Chronic Obstructive Pulmonary Disease) (ED) Additional Instructions: Please take your medication as prescribed along with the new antibiotic and steroid burst. If you develop any new or significant worsening of symptoms feel free to return the emergency department for reassessment. It is important that you still complete your dialysis today. If possible ensure that as you use a woodstove that you also ensure the correct humidity level is obtained in your home by using a humidifier as this may help with some of your symptoms. Referrals: Chano Neves MD [Primary Care Provider] - 1 week (As needed for reassessment or if not improving) Discharge Data Discharge Date/Time-TO BE ENTERED AT DEPARTURE: 01/28/22 11:05 Medical Decision Making Patient presenting the emergency department via EMS for chief complaint of shortness of breath and productive cough. Patient does state this is similar to in the past when she has had pneumonia but also does endorse this could be a COPD exacerbation given that she has been needing to use with heat more often due to the change in weather. Patient denies any fever chills, denies chest pain, denies any other medical changes in her baseline status. Patient does have end-stage renal disease on dialysis, COPD with oxygen dependence, hypertension, mitral valve replacement. Physical exam shows diffuse wheezing throughout all lung sounds, normal vital signs, patient is on oxygen but is oxygenating appropriate. Exam is otherwise nondiagnostic and appears at baseline for patient. Of notation is that patient is hoping to get to dialysis today as she gets dialysis on Monday and feels like she should be able to be discharged. Based upon initial presentation and exam I do feel this is a reasonable goal and last findings dictate otherwise. Please see physician interpretation for full interpretation of EKG but upon my review patient has a right bundle branch block, rate of 65, and overall does not appear to have much changes noticed from last EKG Review of labs show a chronic but stable anemia, elevated BUN of 42 and creatinine of 6.0 and alk phos this is 281. These all are very typical labs for patient with no worrisome electrolyte abnormalities, negative troponin, BNP at patient's baseline. Reviewed chest x-ray and radiologist interpretation that shows no acute worrisome findings. Reassessed patient after she received Solu-Medrol and 2 DuoNeb's and patient stated significant improvement and almost full resolution of symptoms. Reassessed patient lungs and wheezing is no longer appreciated. Given stable labs and significant improvement in the emergency department I do feel that she is able to be safely discharged. Due to patient's complicated medical history and severe COPD we will still place patient on doxycycline for 5 days along with prednisone for the same amount of time. Patient states clear understanding to return if her COPD exacerbation worsens in any way and will continue with dialysis today along with continuing her normal daily medications. After discussion of diagnosis and plan of care patient has no further needs, questions, or concerns and states clear understanding to return to the emergency department for any worsening symptoms. This documentation was generated using [employer]acyteation system, please disregard any oddities of phrase or misspellings. Imaging Data Radiologic Study: Attestation: I personally reviewed and interpreted this imaging study as follows: Imaging: X-Ray Radiologist's impression: FINDINGS: Single AP portable view. There is sternotomy wires and prosthetic heart valves again noted. Distal tip of the right supra clavi in dialysis catheter is in the right atrium, unchanged. Cardiomegaly again noted. The mediastinum is not widened. No confluent infiltrates nor pleural effusions and there is no evidence of pulmonary edema. No pneumothorax. IMPRESSION: Lungs are presently clear.Other findings as above. Sign Out No HPI General Mode of arrival: EMS. Date/Time Provider Initiated Documentation: 01/28/22 09:01. Limitations to Documentation: no limitations. Information obtained by: patient, RN notes reviewed and old records reviewed. History of Present Illness 56 year old F presents to the emergency department with the chief complaint of Shortness of breath, described as moderate and similar to prior episodes, Patient started experiencing this day(s) (1) and it has been constant. No relieving factors improve symptom(s), Other factors that worsen symptoms (Use of woodstove) . Patient did receive the following treatments prior to arrival, other (Home inhalers) Related Data Home Medications Medication Instructions Recorded Confirmed aspirin 81 mg chewable tablet 81 mg PO DAILY 05/24/16 01/28/22 albuterol sulfate 90 mcg/actuation 2 puff inhalation Q4H PRN 07/26/17 01/28/22 aerosol inhaler (ProAir HFA) inhalational spacing device 01/26/19 01/28/22 (Aerochamber MV spacer) meclizine 12.5 mg tablet 12.5 mg PO PRN PRN 03/18/19 01/28/22 omeprazole 40 mg capsule,delayed 40 mg PO BID 03/18/19 01/28/22 release atorvastatin 40 mg tablet 20 mg PO DAILY 10/24/19 01/28/22 albuterol sulfate 2.5 mg/3 mL 2.5 mg (3 mL) inhalation Q6H PRN 02/16/21 01/28/22 (0.083 %) solution for nebulization shortness of breath or wheezing #3 mL tiotropium bromide 18 mcg capsule 1 cap inhalation DAILY #1 inh 02/16/21 01/28/22 with inhalation device (Spiriva with HandiHaler) minoxidil 2.5 mg tablet 5 mg PO QHS 01/21/22 01/28/22 doxycycline hyclate 100 mg capsule 100 mg PO BID #10 caps 01/28/22 prednisone 20 mg tablet 40 mg PO DAILY #10 tabs 01/28/22 Previous Rx's Medication Instructions Recorded albuterol sulfate 2.5 mg/3 mL 2.5 mg (3 mL) inhalation Q6H PRN 02/16/21 (0.083 %) solution for nebulization shortness of breath or wheezing #3 mL tiotropium bromide 18 mcg capsule 1 cap inhalation DAILY #1 inh 02/16/21 with inhalation device (Spiriva with HandiHaler) doxycycline hyclate 100 mg capsule 100 mg PO BID #10 caps 01/28/22 prednisone 20 mg tablet 40 mg PO DAILY #10 tabs 01/28/22 Allergies Allergy/AdvReac Type Severity Reaction Status Date / Time cephalexin monohydrate Allergy Severe trouble Verified 01/28/22 08:57 [From Keflex] breathing colchicine Allergy Verified 01/28/22 08:57 allopurinol AdvReac Intermediate gout Verified 01/28/22 08:57 breakout erythromycin base AdvReac Intermediate gout Verified 01/28/22 08:57 breakout General Stated Complaint: SOB AWA: 2 Review of Systems Constitutional Constitutional: Reports chills, Denies fever(s), Denies headache(s) and Reports malaise ENT Ears, Nose, Mouth, and Throat: Denies headache(s), Denies nasal congestion, Denies nasal discharge, Denies sore throat and Denies throat swelling Cardiovascular Cardiovascular: Denies chest pain, Denies syncope, Denies lightheadedness, Reports dyspnea and Reports dyspnea on exertion Respiratory Respiratory: Reports as per HPI, Reports change in phlegm color, Reports pain with cough, Reports dyspnea, Reports dyspnea on exertion and Reports wheezing Gastrointestinal Gastrointestinal: Denies abdominal pain, Denies nausea and Denies vomiting Musculoskeletal Musculoskeletal: Denies myalgias Integumentary/Breasts Skin/Breast: Denies rash Neurologic Neurologic: Denies syncope and Denies headache(s) Allergic/Immunologic Allergic/Immunologic: Denies throat swelling and Reports wheezing PFSH All Active Problems (Updated 01/30/22 @ 00:05 by GETACHEW MELENDEZ) ESRD on dialysis (Chronic) On hemodialysis currently using central catheter-nephrology at [facility] receives dialysis at [facility] region Depression (Acute 08/28/14) Gallstones (Acute) COPD (chronic obstructive pulmonary disease) (Chronic) Pulmonary at [facility] Central venous catheter in place (Acute ~10/29/19) [facility], right subclavian-dialysis Tricuspid regurgitation (Acute) s/p tricuspid valve replacement 02/2020, bovine Cirrhosis, alcoholic (Acute) POLST (Physician Orders for Life-Sustaining Treatment) (Acute) COLST completed 02/13/2020, DNR/DNI. Hemorrhage of arteriovenous fistula (Acute) Ventral hernia (Acute) Hypertension (Chronic) Aortic valve replaced (Acute) Bovine-with [facility] Personal history of nicotine dependence (Acute) 02/2021 Tobacco abuse (Acute) Lung nodule, solitary (Acute) Hemoptysis (Acute) COPD exacerbation (Acute) Medical History (Updated 01/30/22 @ 00:05 by GETACHEW MELENDEZ) Axillary lymphadenopathy Bleeding hemorrhoids (01/08/13) rectal bleeding (colonoscopy [facility] 01/01/13 internal hemorrhoids and diverticuli) Cannabis dependence CVD (cardiovascular disease) Cyst of ovary (08/20/12) Depression (09/14/12) Diverticulitis of large intestine without perforation or abscess with bleeding Essential hypertension (01/16/13) severe and labile Gastroesophageal reflux disease with esophagitis (02/03/15) Hyperlipidemia Hyperparathyroidism, unspecified (02/09/11) 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[facility] Macular degeneration of left eye (~10/17/19) [facility] Nail dystrophy Recurrent urinary tract infection Right heart failure Secondary hyperparathyroidism (of renal origin) Umbilical hernia repaired 1995,1997,2001,2003 Upper GI bleed (05/17/14) 05/15/14 [facility] EGD, HH, esophagitis, gastric ulcer and duodenitis Surgical History Abdominal hysterectomy (~2006) s/p hyst, but cervix still present and needs yearly PAP due to transplant H/O aortic valve replacement History of kidney transplant Repair of umbilical hernia 1995,1997,2001,2003 TRANSPLANT, KIDNEY (~1997) LEFT Family History Mother Essential hypertension Personal history of malignant neoplasm KIDNEY Heart disease Pulmonary emphysema Father Personal history of malignant neoplasm Pulmonary emphysema Brother Hyperlipidemia Brother Hyperlipidemia Brother No problems noted. Social History Smoking/Tobacco Use Status: Former Tobacco Use Quit Date: 10/11/21 Smoking risk assessment performed?: Yes Alcohol Intake: former Drug use: Daily Substance use type: marijuana Details: mostly edibles Current gender identity: female Do you feel safe at home: Yes Do you feel safe in your relationship?: Yes Exam Const General: cooperative, no acute distress and ill appearing chronically Orientation: alert, awake and oriented x3 HENMT Mouth: moist mucous membranes Resp Effort & Inspection: normal respiratory effort, able to speak in complete sentences, no audible wheezes, no cough, no respiratory distress and tachypneic Auscultation: diminished lung sounds bilaterally throughout and wheezes scattered wheezes Cardio Rate: regular rate Rhythm: regular rhythm Heart Sounds: S1 normal and S2 normal Pulses: normal peripheral pulses Skin General skin exam: no rashes or lesions noted Neuro General: patient alert, patient awake, patient oriented x3, moves all extremities and no focal motor deficits Sensory Exam: no sensory deficits noted Course Vital Signs Vital signs: Vital Signs Temperature 36.7 C 01/28/22 08:48 Pulse 71 01/28/22 08:48 Respiratory Rate 22 01/28/22 08:48 Blood Pressure 123/59 L 01/28/22 08:48 Pulse Oximetry 99 01/28/22 08:48 Temperature 36.7 C 01/28/22 08:48 Temperature Source Temporal Artery Scan 01/28/22 08:48 Pulse 71 01/28/22 08:48 Respiratory Rate 22 01/28/22 08:54 Respiratory Effort Labored 01/28/22 08:54 Respiratory Depth Normal 01/28/22 08:54 Respiratory Pattern Normal 01/28/22 08:54 Blood Pressure 123/59 L 01/28/22 08:48 Pulse Oximetry 99 01/28/22 08:48 Oxygen Delivery Method Nasal Cannula 01/28/22 08:48 Oxygen Flow Rate 4 01/28/22 08:48 Pain Level 2 01/28/22 08:48 Lab/Test Results Lab/Test Results: Laboratory Tests Range/Units 01/28/22 01/28/22 09:30 09:30 WBC (4.4-10.8) 10^3/uL 3.86 L RBC (3.93-5.22) 10^6/uL 3.17 L Hgb (11.2-15.7) g/dL 9.4 L Hct (36.0-46.0) % 30.8 L MCV (80-95) fL 97 H MCH (27.0-33.0) pg 29.7 MCHC (32.0-36.0) % 30.5 L RDW (11.7-14.6) % 16.4 H Plt Count (130-400) 10^3/uL 137 MPV (8.0-11.0) fL 12.0 H Immature Gran % 0.5 Neutrophils % 58.0 Lymphocytes % 10.9 Monocytes % 13.5 Eosinophils % 15.8 Basophils % 1.3 Nucleated RBC % (0.0-0.3) % 0.0 Absolute Neutrophils (1.2-6.7) 10^3/uL 2.24 Absolute Lymphocytes (1.2-3.4) 10^3/uL 0.42 L Absolute Monocytes (0.1-0.8) 10^3/uL 0.52 Absolute Eosinophils (0.0-0.7) 10^3/uL 0.61 Absolute Basophils (0.0-0.2) 10^3/uL 0.05 Sodium Cancelled Potassium Cancelled Chloride Cancelled Carbon Dioxide Cancelled Anion Gap Cancelled BUN Cancelled Creatinine Cancelled Est GFR (CKD-EPI 2020) Cancelled Glucose Cancelled Calcium Cancelled Total Bilirubin Cancelled AST Cancelled ALT Cancelled Alkaline Phosphatase Cancelled Total Protein Cancelled Albumin Cancelled
[2022-01-28 10:06] LABS: NT-proBNP > 35000 pg/mL (<300)
[2022-01-28 10:28] LABS: COVID-19 PCR Negative (Negative); Influenza A PCR Negative (Negative); Influenza B PCR Negative (Negative); RSV PCR Negative (Negative)
[2022-01-28] MEDS: Doxycycline Hyclate 100 MG CAP PO (10:47)
--- NOTE | 2022-01-28 10:54 | NUR.NOTE ---
Nursing Note: PT info faxed to PCP for follow up next week for COPD exacerbation. Yolanda, ED
== END 2022-01-28 11:05 | disposition home or self-care (01) ==
PROVIDERS: Emergency Provider Nurse Practitioner Family; PCP Family Medicine
DX: J44.1 Chronic obstructive pulmonary disease with (acute) exacerbation (principal); I12.0 Hypertensive chronic kidney disease with stage 5 chronic kidney disease or end stage renal disease; N18.6 End stage renal disease; D63.1 Anemia in chronic kidney disease; R79.89 Other specified abnormal findings of blood chemistry; Z79.82 Long term (current) use of aspirin; Z99.2 Dependence on renal dialysis; Z20.822 Contact with and (suspected) exposure to COVID-19; R74.8 Abnormal levels of other serum enzymes
CPT/HCPCS: 36415; 80053; 87637; 93005; 96374; 99284; 71045; 83735; 83880; 84484; 85025; 93010; J2930; J7620

== ENCOUNTER 2022-02-08 12:03 | Outpatient (REF) | payer MEDICARE, SELFPAY | END 2022-02-08 12:04 | disposition home or self-care (01) | LOC: LBN 12:03 | PROVIDERS: PCP Family Medicine; Visit Provider Physician Assistant | DX: N89.8 Other specified noninflammatory disorders of vagina (principal) | CPT/HCPCS: 87480; 87510; 87660 ==

== ENCOUNTER 2022-03-01 11:14 | Emergency (ER) | payer MEDICARE, SELFPAY ==
[2022-03-01] VITALS (22 sets, daily range): BP systolic 91–152; BP diastolic 50–83; PULSE 67–93; RESP 4–20; TEMP 36.8; O2SAT 87–100
[2022-03-01] MEDS: Albuterol/Ipratropium 3 ML UPD VIAL 6 ML UPD (12:05)
[2022-03-01] MEDS: methylPREDNISolone SUCC 125 MG VIAL 80 MG IVP (12:25)
[2022-03-01] MEDS: Doxycycline Hyclate 100 MG CAP PO (12:25)
[2022-03-01 12:29] LABS: Abs Immature Grans 0.02 10^3/uL (0.0-0.06); Absolute Basophil Count 0.04 10^3/uL (0.0-0.2); Absolute Eosinophil Count 0.46 10^3/uL (0.0-0.7); Absolute Lymphocyte Count 0.56 10^3/uL (1.2-3.4); Absolute Monocyte Count 0.52 10^3/uL (0.1-0.8); Absolute Neutrophil Count 2.33 10^3/uL (1.2-6.7); Eosinophils % 11.7; HCT 36.7 % (36.0-46.0); HGB 11.3 g/dL (11.2-15.7); Immature Grans % 0.5; Lymphocytes % 14.2; MCH 29.4 pg (27.0-33.0); MCHC 30.8 % (32.0-36.0); MCV 96 fL (80-95); Monocytes % 13.2; Neutrophils % 59.4; Platelet Count 109 10^3/uL (130-400); RBC 3.84 10^6/uL (3.93-5.22); RDW 15.6 % (11.7-14.6); RDW-SD 54.4 fL; WBC 3.93 10^3/uL (4.4-10.8)
[2022-03-01 12:52] LABS: ALT 23 U/L (14-59); AST 34 U/L (15-37); Albumin 3.8 g/dL (3.4-5.0); Alkaline Phosphatase 189 U/L (46-116); Anion Gap 7.9 mmol/L (3-11); BUN 27 mg/dL (7-18); Bilirubin, Total 0.7 mg/dL (0.2-1.0); CO2 31.1 mmol/L (21.0-32.0); Calcium 8.5 mg/dL (8.5-10.1); Chloride 98 mmol/L (98-107); Estimated GFR 7.46 (mL/min/1.73m2); Glucose 95 mg/dL (74-106); Potassium 4.2 mmol/L (3.5-5.1); Sodium 137 mmol/L (136-145); Total Protein 7.3 g/dL (6.4-8.2); Troponin I < 50 ng/L (<or=60)
[2022-03-01 12:54] LABS: CREATININE 6.1 mg/dL (0.55-1.02); NT-proBNP > 35000 pg/mL (<300)
[2022-03-01 13:06] LABS: COVID-19 PCR Negative (Negative); Influenza A PCR Negative (Negative); Influenza B PCR Negative (Negative); RSV PCR Negative (Negative)
[2022-03-01 13:15] LABS: Source Nasopharynx
--- NOTE | 2022-03-01 13:48 | DI.RAD_ITS ---
Exam(s) XR PORTABLE CHEST AP EXAM: XR PORTABLE CHEST AP CLINICAL HISTORY: cough. TECHNIQUE: 2D digital imaging was performed. COMPARISON: CR XR PORTABLE CHEST AP from 01/28/2022 FINDINGS: Single AP portable view. There is a right supra clavi in dialysis catheter. Distal tip is in the mid-lower right atrium, unch anged. There is cardiomegaly and sternotomy wires again evident. There are 2 prosthetic valves again noted. There is a pulmonary venous hypertension pattern but no jenny airspace pulmonary edema. Mild bluntin g of the right costophrenic angle is noted which may indicate a small amount of right pleural fluid. This is unchanged from 01/28/2022. IMPRESSION: As above but with minimal change from 01/28/2022.No new confluent infiltrates. DATA REPOSITORY: RADIATION DOSE DELIVERED:
[2022-03-01] MEDS: Albuterol/Ipratropium 3 ML UPD VIAL UPD (14:01)
[2022-03-01 14:02] LABS: Lactate 0.7 mmol/L (0.6-1.4)
--- NOTE | 2022-03-01 14:58 | W.ED.GENAD ---
Discharge Plan Disposition Patient Disposition: Home Condition: Stable Discharge Details Clinical Impression: Acute exacerbation of chronic obstructive pulmonary disease Primary Care Provider: Chano Neves ED Provider: Aarti Peralta Home Meds and New Rx's Prescriptions: New prednisone 20 mg tablet 40 mg PO DAILY 5 Days Qty: 10 0RF doxycycline hyclate 100 mg tablet 100 mg PO BID Qty: 20 0RF ipratropium-albuterol 0.5 mg-3 mg(2.5 mg base)/3 mL solution for nebulization 3 ml inhalation Q4H PRNQty: 180 0RF Continued ondansetron HCl 4 mg tablet 4 mg PO ONCE PRN (Reason: nausea and vomiting) Qty: 1 0RF Spiriva with HandiHaler 18 mcg capsule, w/inhalation device 1 cap inhalation DAILY Qty: 1 0RF Rx Instructions: puncture 1 cap using device; one dose = 2 inhalations from [facility] albuterol sulfate 2.5 mg /3 mL (0.083 %) solution for nebulization 2.5 mg inhalation Q6H PRN (Reason: shortness of breath or wheezing) Qty: 3 0RF Rx Instructions: [facility] mupirocin 2 % ointment 1 applic topical TID Qty: 15 0RF aspirin 81 MG tablet,chewable 81 mg PO DAILY albuterol sulfate [ProAir HFA] 8.5 GM HFA aerosol inhaler 2 puff Inhalation Q4H PRN atorvastatin 40 mg tablet 20 mg PO DAILY minoxidil 2.5 mg tablet 5 mg PO QHS omeprazole 40 mg Capsule,Delayed Release(Dr/Ec) 40 mg PO BID meclizine 12.5 mg Tablet 12.5 mg PO PRN PRN (DME) Aerochamber MV Spacer MISCELLANEOUS Discharge Instructions Instructions: COPD (Chronic Obstructive Pulmonary Disease) (ED) Additional Instructions: Use your nebulizer every 4-6 hours Take the steroid as prescribed, your next dose is tomorrow Take your dose of antibiotic this evening Yogurt daily while on antibiotics Use your oxygen as needed for shortness of breath Please return earlier should you have new or worsening complaints, recommendation for recheck in 24 to 48 hours Referrals: Cahno Neves MD [Primary Care Provider] - 1 day Discharge Data Discharge Date/Time-TO BE ENTERED AT DEPARTURE: 03/01/22 15:30 Medical Decision Making This complex 56-year-old female with history of dialysis and COPD presents with shortness of breath consistent with COPD exacerbation per patient States she has been worsening progressively over the past 2 weeks, is not taking steroid Using inhaler, ran out of nebulizers Completed full dialysis yesterday without incident Denies any chest discomfort or fever. Denies any known sick contacts. Denies any calf pain or swelling Denies any pleuritic chest pain, calf pain or swelling Patient with reports of [facility] oxygenation's 88%, this is her baseline, and she is at 88% renown feeling symptomatic improvement She request discharge home, I discussed risk of further deterioration and even , she states that she will not stay in the hospital and is requesting treatment for home which I am happy to supply She is completely alert and oriented, of decisional capacity Should be discharged home on doxycycline, Combivent nebulizer capsules, and steroids She is instructed to call her primary care physician for reassessment tomorrow and return earlier should she have new or worsening complaints Her labs are baseline for her including a BNP of greater than 35,000, no evidence of acute abnormality on her chest x-ray per radiology interpretation my review Troponin within normal limits, no leukocytosis Medical Records Medical records reviewed: Yes I reviewed the patient's medical records. Lab Data Lab results reviewed: Yes I reviewed the patient's lab results. ECG Data Prior ECG tracings: available for review HPI General Date/Time Provider Initiated Documentation: 03/01/22 11:42. HPI Narrative: This chronically unwell 56-year-old female with history of end-stage renal disease on dialysis, COPD, not oxygen dependent, alcoholic cirrhosis tobacco use presents with report of cough, shortness of breath despite using home measures. Taking her regular inhalers at home. Denies any chest pain associated, weakness, dizziness. Was able to drive herself here. Denies fever or chills, calf pain or swelling. Did receive full dialysis yesterday reportedly. Related Data Home Medications Medication Instructions Recorded Confirmed aspirin 81 mg chewable tablet 81 mg PO DAILY 05/24/16 03/01/22 albuterol sulfate 90 mcg/actuation 2 puff inhalation Q4H PRN 07/26/17 03/01/22 aerosol inhaler (ProAir HFA) inhalational spacing device 01/26/19 02/26/22 (Aerochamber MV spacer) meclizine 12.5 mg tablet 12.5 mg PO PRN PRN 03/18/19 03/01/22 omeprazole 40 mg capsule,delayed 40 mg PO BID 03/18/19 03/01/22 release atorvastatin 40 mg tablet 20 mg PO DAILY 10/24/19 03/01/22 albuterol sulfate 2.5 mg/3 mL 2.5 mg (3 mL) inhalation Q6H PRN 02/16/21 02/26/22 (0.083 %) solution for nebulization shortness of breath or wheezing #3 mL tiotropium bromide 18 mcg capsule 1 cap inhalation DAILY #1 inh 02/16/21 03/01/22 with inhalation device (Spiriva with HandiHaler) minoxidil 2.5 mg tablet 5 mg PO QHS 01/21/22 03/01/22 mupirocin 2 % topical ointment 1 applic topical TID #15 grams 02/02/22 03/01/22 ondansetron HCl 4 mg tablet 4 mg PO ONCE PRN nausea and 02/08/22 03/01/22 vomiting #1 tab doxycycline hyclate 100 mg tablet 100 mg PO BID #20 tabs 03/01/22 ipratropium 0.5 mg-albuterol 3 mg 3 ml inhalation Q4H PRN #180 mL 03/01/22 (2.5 mg base)/3 mL nebulization soln prednisone 20 mg tablet 40 mg PO DAILY 5 days #10 tabs 03/01/22 Previous Rx's Medication Instructions Recorded albuterol sulfate 2.5 mg/3 mL 2.5 mg (3 mL) inhalation Q6H PRN 02/16/21 (0.083 %) solution for nebulization shortness of breath or wheezing #3 mL tiotropium bromide 18 mcg capsule 1 cap inhalation DAILY #1 inh 02/16/21 with inhalation device (Spiriva with HandiHaler) mupirocin 2 % topical ointment 1 applic topical TID #15 grams 02/02/22 ondansetron HCl 4 mg tablet 4 mg PO ONCE PRN nausea and 02/08/22 vomiting #1 tab doxycycline hyclate 100 mg tablet 100 mg PO BID #20 tabs 03/01/22 ipratropium 0.5 mg-albuterol 3 mg 3 ml inhalation Q4H PRN #180 mL 03/01/22 (2.5 mg base)/3 mL nebulization soln prednisone 20 mg tablet 40 mg PO DAILY 5 days #10 tabs 03/01/22 Allergies Allergy/AdvReac Type Severity Reaction Status Date / Time cephalexin monohydrate Allergy Severe trouble Verified 03/01/22 11:28 [From Keflex] breathing colchicine Allergy Verified 03/01/22 11:28 allopurinol AdvReac Intermediate gout Verified 03/01/22 11:28 breakout erythromycin base AdvReac Intermediate gout Verified 03/01/22 11:28 breakout General Stated Complaint: SOB AWA: 3 Review of Systems All systems reviewed & are unremarkable except as noted in HPI and below PFSH All Active Problems (Updated 03/01/22 @ 15:03 by SHIRA Pepper) Acute exacerbation of chronic obstructive pulmonary disease (Acute) ESRD on dialysis (Chronic) On hemodialysis currently using central catheter-nephrology at [facility] receives dialysis at [facility] Depression (Acute 08/28/14) Gallstones (Acute) COPD (chronic obstructive pulmonary disease) (Chronic) Pulmonary at [facility] Central venous catheter in place (Acute ~10/29/19) [facility], right subclavian-dialysis Tricuspid regurgitation (Acute) s/p tricuspid valve replacement 02/2020, bovine Cirrhosis, alcoholic (Acute) POLST (Physician Orders for Life-Sustaining Treatment) (Acute) COLST completed 02/13/2020, DNR/DNI. Hemorrhage of arteriovenous fistula (Acute) Ventral hernia (Acute) Hypertension (Chronic) Aortic valve replaced (Acute) Bovine-with [facility] Personal history of nicotine dependence (Acute) 02/2021 Tobacco abuse (Acute) Lung nodule, solitary (Acute) Hemoptysis (Acute) Medical History Axillary lymphadenopathy Bleeding hemorrhoids (01/08/13) rectal bleeding (colonoscopy [facility] 01/01/13 internal hemorrhoids and diverticuli) Cannabis dependence CVD (cardiovascular disease) Cyst of ovary (08/20/12) Depression (09/14/12) Diverticulitis of large intestine without perforation or abscess with bleeding Essential hypertension (01/16/13) severe and labile Gastroesophageal reflux disease with esophagitis (02/03/15) Hyperlipidemia Hyperparathyroidism, unspecified (02/09/11) 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[facility] Macular degeneration of left eye (~10/17/19) [facility] Nail dystrophy Recurrent urinary tract infection Right heart failure Secondary hyperparathyroidism (of renal origin) Umbilical hernia repaired 1995,1997,2001,2003 Upper GI bleed (05/17/14) 05/15/14 [facility] EGD, HH, esophagitis, gastric ulcer and duodenitis Surgical History Abdominal hysterectomy (~2006) s/p hyst, but cervix still present and needs yearly PAP due to transplant H/O aortic valve replacement History of kidney transplant Repair of umbilical hernia 1995,1997,2001,2003 TRANSPLANT, KIDNEY (~1997) LEFT Family History Mother Essential hypertension Personal history of malignant neoplasm KIDNEY Heart disease Pulmonary emphysema Father Personal history of malignant neoplasm Pulmonary emphysema Brother Hyperlipidemia Brother Hyperlipidemia Brother No problems noted. Social History Smoking/Tobacco Use Status: Former Tobacco Use Quit Date: 10/11/21 Smoking risk assessment performed?: Yes Alcohol Intake: former Drug use: Daily Substance use type: marijuana Details: mostly edibles Current gender identity: female Do you feel safe at home: Yes Do you feel safe in your relationship?: Yes Exam Const General: cooperative, comfortable, no acute distress and well developed Orientation: alert and oriented x3 Eyes Pupils: PERRL Resp Auscultation: diminished lung sounds and wheezes Cardio Rate: regular rate Rhythm: regular rhythm Neuro General: patient alert and patient oriented x3 Course Vital Signs Vital signs: Vital Signs Pulse Oximetry 90 L 03/01/22 11:23 Temperature 36.8 C 03/01/22 11:24 Temperature Source Oral 03/01/22 11:24 Pulse 73 03/01/22 13:48 Respiratory Rate 20 03/01/22 11:24 Respiratory Effort 03/01/22 11:30 Respiratory Depth Normal 03/01/22 11:30 Respiratory Pattern Normal 03/01/22 11:30 Blood Pressure 129/64 03/01/22 13:48 Blood Pressure Mean 77 03/01/22 13:48 Blood Pressure Position Sitting 03/01/22 11:24 Pulse Oximetry 100 03/01/22 14:10 Oxygen Delivery Method Room Air 03/01/22 11:24 Oxygen Flow Rate 0 03/01/22 11:24 Lab/Test Results Lab/Test Results: 03/01/22 14:11 Blood Blood Culture - Pending 03/01/22 13:55 Blood Blood Culture - Pending Laboratory Tests Range/Units 03/01/22 03/01/22 03/01/22 12:20 12:20 12:20 WBC (4.4-10.8) 10^3/uL RBC (3.93-5.22) 10^6/uL Hgb (11.2-15.7) g/dL Hct (36.0-46.0) % MCV (80-95) fL MCH (27.0-33.0) pg MCHC (32.0-36.0) % RDW (11.7-14.6) % Plt Count (130-400) 10^3/uL MPV (8.0-11.0) fL Immature Gran % Neutrophils % Lymphocytes % Monocytes % Eosinophils % Basophils % Nucleated RBC % (0.0-0.3) % Absolute Neutrophils (1.2-6.7) 10^3/uL Absolute Lymphocytes (1.2-3.4) 10^3/uL Absolute Monocytes (0.1-0.8) 10^3/uL Absolute Eosinophils (0.0-0.7) 10^3/uL Absolute Basophils (0.0-0.2) 10^3/uL VBG Lactate (0.6-1.4) mmol/L Sodium (136-145) mmol/L 137 Potassium (3.5-5.1) mmol/L 4.2 Chloride (98-107) mmol/L 98 Carbon Dioxide (21.0-32.0) mmol/L 31.1 Anion Gap (3-11) mmol/L 7.9 BUN (7-18) mg/dL 27 H Creatinine (0.55-1.02) mg/dL 6.1 H* Est GFR (CKD-EPI 2020) (mL/min/1.73m2) 7.46 Glucose (74-106) mg/dL 95 Calcium (8.5-10.1) mg/dL 8.5 Magnesium (1.8-2.4) mg/dL 2.0 Total Bilirubin (0.2-1.0) mg/dL 0.7 AST (15-37) U/L 34 ALT (14-59) U/L 23 Alkaline Phosphatase (46-116) U/L 189 H Troponin I (<or=60) ng/L < 50 Cancelled NT-Pro-B Natriuret Pep (<300) pg/mL > 79833 H Total Protein (6.4-8.2) g/dL 7.3 Albumin (3.4-5.0) g/dL 3.8 COVID-19 Source Nasopharynx SARS-CoV-2 (PCR) (Negative) Negative Influenza Type A (PCR) (Negative) Negative Influenza Type B (PCR) (Negative) Negative RSV (PCR) (Negative) Negative Range/Units 03/01/22 03/01/22 12:20 13:55 WBC (4.4-10.8) 10^3/uL 3.93 L RBC (3.93-5.22) 10^6/uL 3.84 L Hgb (11.2-15.7) g/dL 11.3 Hct (36.0-46.0) % 36.7 MCV (80-95) fL 96 H MCH (27.0-33.0) pg 29.4 MCHC (32.0-36.0) % 30.8 L RDW (11.7-14.6) % 15.6 H Plt Count (130-400) 10^3/uL 109 L MPV (8.0-11.0) fL 12.0 H Immature Gran % 0.5 Neutrophils % 59.4 Lymphocytes % 14.2 Monocytes % 13.2 Eosinophils % 11.7 Basophils % 1.0 Nucleated RBC % (0.0-0.3) % 0.0 Absolute Neutrophils (1.2-6.7) 10^3/uL 2.33 Absolute Lymphocytes (1.2-3.4) 10^3/uL 0.56 L Absolute Monocytes (0.1-0.8) 10^3/uL 0.52 Absolute Eosinophils (0.0-0.7) 10^3/uL 0.46 Absolute Basophils (0.0-0.2) 10^3/uL 0.04 VBG Lactate (0.6-1.4) mmol/L 0.7 Sodium (136-145) mmol/L Potassium (3.5-5.1) mmol/L Chloride (98-107) mmol/L Carbon Dioxide (21.0-32.0) mmol/L Anion Gap (3-11) mmol/L BUN (7-18) mg/dL Creatinine (0.55-1.02) mg/dL Est GFR (CKD-EPI 2020) (mL/min/1.73m2) Glucose (74-106) mg/dL Calcium (8.5-10.1) mg/dL Magnesium (1.8-2.4) mg/dL Total Bilirubin (0.2-1.0) mg/dL AST (15-37) U/L ALT (14-59) U/L Alkaline Phosphatase (46-116) U/L Troponin I (<or=60) ng/L NT-Pro-B Natriuret Pep (<300) pg/mL Total Protein (6.4-8.2) g/dL Albumin (3.4-5.0) g/dL COVID-19 Source SARS-CoV-2 (PCR) (Negative) Influenza Type A (PCR) (Negative) Influenza Type B (PCR) (Negative) RSV (PCR) (Negative)
--- NOTE | 2022-03-01 18:13 | NUR.NOTE ---
Nursing Note: Referral faxed to PCP for recheck MARY.
== END 2022-03-01 15:30 | disposition home or self-care (01) ==
PROVIDERS: Emergency Provider Physician Assistant; PCP Family Medicine
DX: J44.1 Chronic obstructive pulmonary disease with (acute) exacerbation (principal); I12.0 Hypertensive chronic kidney disease with stage 5 chronic kidney disease or end stage renal disease; N18.6 End stage renal disease; Z99.2 Dependence on renal dialysis; Z79.82 Long term (current) use of aspirin; Z20.822 Contact with and (suspected) exposure to COVID-19
CPT/HCPCS: 36415; 80053; 87040; 87637; 96374; 99284; 71045; 83605; 83735; 83880; 84484; 85025; J2930; J7620

== ENCOUNTER 2022-03-03 11:58 | Outpatient (REF) | payer MEDICARE, SELFPAY | END 2022-03-03 11:59 | disposition home or self-care (01) | LOC: LBN 11:58 | PROVIDERS: PCP Family Medicine; Visit Provider Family Medicine | DX: L02.211 Cutaneous abscess of abdominal wall (principal) | CPT/HCPCS: 87070; 87205 ==

== ENCOUNTER 2022-03-28 07:18 | Emergency (ER) | payer OTHER, SELFPAY ==
[2022-03-28] VITALS (52 sets, daily range): BP systolic 146–171; BP diastolic 41–131; PULSE 74–88; RESP 18–20; TEMP 37.2–37.4; O2SAT 74–100
--- NOTE | 2022-03-28 07:15 | DI.RAD_ITS ---
Exam(s) XR PORTABLE CHEST AP EXAM: XR PORTABLE CHEST AP CLINICAL HISTORY: fever TECHNIQUE: 2D digital imaging was performed of the chest. One image was obtained. An AP view was ob tained. COMPARISON: CR XR CHEST 2V PA LATERAL from 10/29/2021 CR XR PORTABLE CHEST AP from 01/28/2022 CR XR PORTABLE CHEST AP from 03/01/2022 FINDINGS: MEDIASTINUM: Normal. HEART: Unchanged cardiomegaly. Prostatic cardiac valves are again seen. PULMONARY VASCULATURE: Normal. LUNGS: No focal consolidating infiltrates. PLEURAL SPACE: No pleural effusion or pneumothorax. BONE:Within normal limits for the patient's age. OTHER FINDINGS:There is a dialysis catheter in place. IMPRESSION: No acute pulmonary findings. DATA REPOSITORY: RADIATION DOSE DELIVERED:
--- NOTE | 2022-03-28 08:15 | RT.EKG_ITS ---
APPROVED REPORT Exam: Resting ECG Reason for Exam: shortness of breath Patient Location: E HR:78 bpm ECG Measurements Heart Rate 78 AXIS MO 173 P 13 QRSd 159 QRS 80 QT 440 T -5 QTc 502 Conclusion Sinus rhythm. Probable left atrial enlargement Right bundle branch block ST depr anterolateral lds...ST <-0.10mV, I aVL V2-V6. Similar to previous
[2022-03-28 08:16] LABS: Lactate 0.6 mmol/L (0.6-1.4)
[2022-03-28 08:19] LABS: Abs Immature Grans 0.06 10^3/uL (0.0-0.06); Absolute Basophil Count 0.03 10^3/uL (0.0-0.2); Absolute Eosinophil Count 0.25 10^3/uL (0.0-0.7); Absolute Lymphocyte Count 0.38 10^3/uL (1.2-3.4); Absolute Monocyte Count 1.05 10^3/uL (0.1-0.8); Absolute Neutrophil Count 8.47 10^3/uL (1.2-6.7); Basophils % 0.3; Eosinophils % 2.4; HCT 32.5 % (36.0-46.0); HGB 10.3 g/dL (11.2-15.7); Immature Grans % 0.6; Lymphocytes % 3.7; MCH 29.9 pg (27.0-33.0); MCHC 31.7 % (32.0-36.0); MCV 94 fL (80-95); Monocytes % 10.3; Neutrophils % 82.7; RBC 3.45 10^6/uL (3.93-5.22); RDW 15.5 % (11.7-14.6); RDW-SD 54.1 fL; WBC 10.24 10^3/uL (4.4-10.8)
[2022-03-28 08:31] LABS: Diff Comment Diff Reviewed; Platelet Count 90 10^3/uL (130-400); RBC Morphology Normal
[2022-03-28 08:33] LABS: ALT 32 U/L (14-59); AST 27 U/L (15-37); Albumin 3.8 g/dL (3.4-5.0); Alkaline Phosphatase 239 U/L (46-116); Anion Gap 10.7 mmol/L (3-11); BUN 45 mg/dL (7-18); Bilirubin, Total 1.3 mg/dL (0.2-1.0); CO2 28.3 mmol/L (21.0-32.0); Calcium 8.5 mg/dL (8.5-10.1); Chloride 96 mmol/L (98-107); Estimated GFR 5.08 (mL/min/1.73m2); Glucose 85 mg/dL (74-106); Magnesium 1.9 mg/dL (1.8-2.4); Potassium 4.6 mmol/L (3.5-5.1); Sodium 135 mmol/L (136-145); Total Protein 7.4 g/dL (6.4-8.2)
[2022-03-28 08:35] LABS: CREATININE 8.4 mg/dL (0.55-1.02)
[2022-03-28 08:52] LABS: Magnesium 1.8 mg/dL (1.8-2.4)
[2022-03-28] MEDS: Acetaminophen 325 MG TAB 650 MG PO (08:53)
[2022-03-28] MEDS: Albuterol/Ipratropium 3 ML UPD VIAL 6 ML UPD (08:54)
[2022-03-28] MEDS: Metoclopramide 10 MG/2 ML VIAL 5 MG IVP (08:56)
[2022-03-28] MEDS: methylPREDNISolone SUCC 125 MG VIAL 80 MG IVP (08:58)
[2022-03-28] MEDS: Erythromycin Ophth Oint 3.5 GM TUBE OU (09:00)
[2022-03-28 09:03] LABS: COVID-19 PCR Negative (Negative); Influenza A PCR Negative (Negative); Influenza B PCR Negative (Negative); RSV PCR Negative (Negative)
[2022-03-28 09:04] LABS: Source Nasopharynx
--- NOTE | 2022-03-28 09:30 | DI.CT_ITS ---
Exam(s) CT ABDOMEN PELVIS WO EXAM: CT ABDOMEN PELVIS WO CLINICAL HISTORY: abdominal pain, diarrhea. TECHNIQUE: Imaging Protocol: Axial computed tomography images with coronal and sagittal reformatted images were created and reviewed. COMPARISON: CT CT CHEST/ABD/PEL W from 02/03/[address] ABDOMEN WO from 10/29/[address] CHEST PE CTA from 12/27/2021 FINDINGS: The examination is limited due to patient motion artifact.. ABDOMEN: Lung Bases: Cardiomegaly. There is an aortic valve replacement. Coronary artery calcifications are present. There infiltrates seen in the right middle lobe and right lower lobe. The right middle lob e infiltrate is new since 12/27/2021. Liver: There are findings again suggestive of hepatic cirrhosis. No measurable mass. Mild hepatomega ly. Gallbladder and biliary tract: Cholelithiasis. No biliary ductal dilatation. Pancreas: Normal density, no abnormal calcifications or inflammatory process. Spleen: Mild splenomegaly. Kidneys: There is again seen marked atrophy of the [place] kidneys.No radiodense stones or obstructive uropathy. No masses seen. Adrenal glands: No mass is seen. Lymph nodes: Stable mildly prominent abdominal pelvic lymph nodes. Abdominal Aorta: Atherosclerosis. PELVIS: Bladder:The urinary bladder is incompletely distended. Bowel: There is diverticulosis seen in the colon but no evidence of acute diverticulitis. There is n o evidence of bowel obstruction. There is mild thickening of the wall of proximal small bowel loops. No evidence of appendicitis. There is a duodenal diverticulum present. Peritoneal cavity: There is a small amount of abdominal pelvic ascites. No free air. Reproductive organs: Unremarkable as visualized. Bones: Within normal limits. Soft Tissues: There is extensive edema in the soft tissues suggesting anasarca. There is a small fat and fluid containing midline upper abdominal wall hernia. IMPRESSION: 1. Mild wall thickening seen in proximal small bowel loops suspicious for an infectious/inflammatory enteritis. 2. Findings of hepatic cirrhosis with hepatosplenomegaly. Small amount of abdominal pelvic ascites. 3. Extensive edema in the soft tissues suggesting anasarca. 4. New right middle lobe infiltrate and a right lower lobe infiltrate. This may represent atelectasi s, pneumonia or scarring. Please correlate clinically. 5. Cholelithiasis. No biliary ductal dilatation. 6. Stable marked [place] renal atrophy. 7. Findings were discussed with Aarti Peralta at 11:35 a.m. on 03/28/2022. RADIATION DOSE DELIVERED: 741.41mGy.cm Total DLP DATA REPOSITORY: All CT scans at this facility are submitted to the National Radiology Data Registry (NRDR) Dose Index Registry (DIR) with the [employer] ([employer]). RADIATION OPTIMIZATION: All CT scans at this facility use at least one of these dose optimization te chniques: automated exposure control; mA and/or kV adjustment per patient size (includes targeted exa ms where dose is matched to clinical indication); or iterative reconstruction.
--- NOTE | 2022-03-28 11:14 | ED.GENADUL_ITS ---
Discharge Plan Disposition Patient Disposition: Transfer-Acute Inpatient Care Specific Acute Inpt Facility: Other Condition: Serious Discharge Details Clinical Impression: ESRD on dialysis, Acute exacerbation of chronic obstructive pulmonary disease, Pneumonia, Respiratory failure Primary Care Provider: Chano Neves ED Provider: Aarti Peralta Home Meds and New Rx's Prescriptions: No Action ondansetron HCl 4 mg tablet 4 mg PO ONCE PRN (Reason: nausea and vomiting) Qty: 1 0RF Spiriva with HandiHaler 18 mcg capsule, w/inhalation device 1 cap inhalation DAILY Qty: 1 0RF Rx Instructions: puncture 1 cap using device; one dose = 2 inhalations from [facility] albuterol sulfate 2.5 mg /3 mL (0.083 %) solution for nebulization 2.5 mg inhalation Q6H PRN (Reason: shortness of breath or wheezing) Qty: 3 0RF Rx Instructions: [facility] codeine-guaifenesin 10-100 mg/5 mL liquid See Rx Instructions PO Q6H PRN (Reason: cough) Qty: 120 0RF Rx Instructions: one to two teaspoons PO every 6 hours PRN cough ; aspirin 81 MG tablet,chewable 81 mg PO DAILY albuterol sulfate [ProAir HFA] 8.5 GM HFA aerosol inhaler 2 puff Inhalation Q4H PRN atorvastatin 40 mg tablet 20 mg PO DAILY minoxidil 2.5 mg tablet 5 mg PO QHS omeprazole 40 mg Capsule,Delayed Release(Dr/Ec) 40 mg PO BID meclizine 12.5 mg Tablet 12.5 mg PO PRN PRN (DME) Aerochamber MV Spacer MISCELLANEOUS ipratropium-albuterol 0.5 mg-3 mg(2.5 mg base)/3 mL solution for nebulization 3 ml inhalation Q4H PRNQty: 180 0RF Discharge Data Discharge Date/Time-TO BE ENTERED AT DEPARTURE: 03/28/22 15:36 Medical Decision Making This 56-year-old female presents with history of cirrhosis and end-stage renal disease dialysis dependent with flulike syndrome She has shortness of breath that is worsening, nausea, vomiting, diarrhea, weakness She is been treated outpatient with antibiotics and reportedly had pneumonia back in December, she feels though she may be developing pneumonia again She generally feels unwell, she had conjunctival injection for which we will initiate erythromycin ointment She has increased work of breathing with wheezes throughout, will order Solu- Medrol, DuoNeb administration, placed on telemetry monitoring, and perform chest x-ray Chest x-ray and CT show evidence of right middle and right lower lobe infiltrate CT scan of abdomen and pelvis shows evidence of enteritis but no other acute abn ormalities, exam consistent with psoriasis and chronic renal disease Secondary to patient's allergies, and comorbidities, meropenem was ordered for IV antibiotics for broad-spectrum treatment This will likely need to be renally adjusted Secondary hypoxia, 79% on room air VBG and oxygen were ordered, lactate is 0.4 and VBG is all within normal limits She is received 2 DuoNeb's in the emergency department, Solu-Medrol IV antibiotics, 500 cc of fluid Her last dialysis was reportedly on Monday, she missed her dialysis today secondary to illness She is also received antiemetics, Zofran, and she was able to tolerate p.o. She feels weak and she is hypoxic, although she is flu, COVID, and RSV negative, secondary to pneumonia and failure of outpatient treatment likely, she will need admission to inpatient status for acute respiratory failure, she has very between 1 to 2 L and the goal is to keep patient at 90 to 92% Case was discussed with several local hospitals who are at capacity and unable to accept this patient, finally she was accepted in transfer by Dr. Evans and will be transferred to the [facility] at this time Electrolytes stable however creatinine is 8.67 consistent with dialysis status Has remained stable throughout this encounter Medical Records Medical records reviewed: Yes I reviewed the patient's medical records. Lab Data Lab results reviewed: Yes I reviewed the patient's lab results. HPI General Date/Time Provider Initiated Documentation: 03/28/22 07:26 . HPI Narrative: This complex 56-year-old female with history of end-stage renal disease dialysis dependent with aortic valve replacement coronary artery disease alcoholic cirrhosis presents with reports of worsening shortness of breath, nausea, vomiting, dizziness, weakness. She been sick for several weeks now Symptoms are worsening. She states that she has had diarrhea for the past week and with cough and subjective fevers. She states she has been on numerous antibiotics for COPD exacerbations and thinks she was last on antibiotics for pneumonia in December. She lives at home independently. She states that after her last prednisone and antibiotic regimen she did not have improvement as she typically does with COPD exacerbations. Related Data Home Medications Medication Instructions Recorded Confirmed aspirin 81 mg chewable tablet 81 mg PO DAILY 05/24/16 03/28/22 albuterol sulfate 90 mcg/actuation 2 puff inhalation Q4H PRN 07/26/17 03/28/22 aerosol inhaler (ProAir HFA) inhalational spacing device 01/26/19 03/15/22 (Aerochamber MV spacer) meclizine 12.5 mg tablet 12.5 mg PO PRN PRN 03/18/19 03/28/22 omeprazole 40 mg capsule,delayed 40 mg PO BID 03/18/19 03/28/22 release atorvastatin 40 mg tablet 20 mg PO DAILY 10/24/19 03/28/22 albuterol sulfate 2.5 mg/3 mL 2.5 mg (3 mL) inhalation Q6H PRN 02/16/21 03/28/22 (0.083 %) solution for nebulization shortness of breath or wheezing #3 mL tiotropium bromide 18 mcg capsule 1 cap inhalation DAILY #1 inh 02/16/21 03/28/22 with inhalation device (Spiriva with HandiHaler) minoxidil 2.5 mg tablet 5 mg PO QHS 01/21/22 03/28/22 ondansetron HCl 4 mg tablet 4 mg PO ONCE PRN nausea and 02/08/22 03/28/22 vomiting #1 tab ipratropium 0.5 mg-albuterol 3 mg 3 ml inhalation Q4H PRN #180 mL 03/01/22 03/28/22 (2.5 mg base)/3 mL nebulization soln codeine 10 mg-guaifenesin 100 mg/5 See Rx Instructions PO Q6H PRN 03/03/22 03/28/22 mL oral liquid cough #120 mL Previous Rx's Medication Instructions Recorded albuterol sulfate 2.5 mg/3 mL 2.5 mg (3 mL) inhalation Q6H PRN 02/16/21 (0.083 %) solution for nebulization shortness of breath or wheezing #3 mL tiotropium bromide 18 mcg capsule 1 cap inhalation DAILY #1 inh 02/16/21 with inhalation device (Spiriva with HandiHaler) ondansetron HCl 4 mg tablet 4 mg PO ONCE PRN nausea and 02/08/22 vomiting #1 tab ipratropium 0.5 mg-albuterol 3 mg 3 ml inhalation Q4H PRN #180 mL 03/01/22 (2.5 mg base)/3 mL nebulization soln codeine 10 mg-guaifenesin 100 mg/5 See Rx Instructions PO Q6H PRN 03/03/22 mL oral liquid cough #120 mL Allergies Allergy/AdvReac Type Severity Reaction Status Date / Time cephalexin monohydrate Allergy Severe trouble Verified 03/28/22 07:31 [From Keflex] breathing colchicine Allergy Verified 03/28/22 07:31 allopurinol AdvReac Intermediate gout Verified 03/28/22 07:31 breakout erythromycin base AdvReac Intermediate gout Verified 03/28/22 07:31 breakout General Stated Complaint: RespSymp AWA: 3 Review of Systems All systems reviewed & are unremarkable except as noted in HPI and below PFSH All Active Problems (Updated 03/30/22 @ 16:25 by SHIRA Pepper) Pneumonia (Acute) Respiratory failure (Acute) Open abdominal wall wound (Acute) Acute exacerbation of chronic obstructive pulmonary disease (Acute) ESRD on dialysis (Chronic) On hemodialysis currently using central catheter-nephrology at [facility] receives dialysis at [facility] Depression (Acute 08/28/14) Gallstones (Acute) COPD (chronic obstructive pulmonary disease) (Chronic) Pulmonary at [facility] Central venous catheter in place (Acute ~10/29/19) [facility], right subclavian-dialysis Tricuspid regurgitation (Acute) s/p tricuspid valve replacement 02/2020, bovine Cirrhosis, alcoholic (Acute) POLST (Physician Orders for Life-Sustaining Treatment) (Acute) COLST completed 02/13/2020, DNR/DNI. Hemorrhage of arteriovenous fistula (Acute) Ventral hernia (Acute) Hypertension (Chronic) Aortic valve replaced (Acute) Bovine-with [facility] Personal history of nicotine dependence (Acute) 02/2021 Tobacco abuse (Acute) Lung nodule, solitary (Acute) Hemoptysis (Acute) Medical History Axillary lymphadenopathy Bleeding hemorrhoids (01/08/13) rectal bleeding (colonoscopy [facility] 10/22/13 internal hemorrhoids and diverticuli) Cannabis dependence CVD (cardiovascular disease) Cyst of ovary (08/20/12) Depression (09/14/12) Diverticulitis of large intestine without perforation or abscess with bleeding Essential hypertension (01/16/13) severe and labile Gastroesophageal reflux disease with esophagitis (02/03/15) Hyperlipidemia Hyperparathyroidism, unspecified (02/09/11) 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[facility] Macular degeneration of left eye (~10/17/19) [facility] Nail dystrophy Recurrent urinary tract infection Right heart failure Secondary hyperparathyroidism (of renal origin) Umbilical hernia repaired 1995,1997,2001,2003 Upper GI bleed (05/17/14) 05/15/14 [facility] EGD, HH, esophagitis, gastric ulcer and duodenitis Surgical History Abdominal hysterectomy (~2006) s/p hyst, but cervix still present and needs yearly PAP due to transplant H/O aortic valve replacement History of kidney transplant Repair of umbilical hernia 1995,1997,2001,2003 TRANSPLANT, KIDNEY (~1997) LEFT Family History Mother Essential hypertension Personal history of malignant neoplasm KIDNEY Heart disease Pulmonary emphysema Father Personal history of malignant neoplasm Pulmonary emphysema Brother Hyperlipidemia Brother Hyperlipidemia Brother No problems noted. Social History (Updated 03/03/22 @ 16:54 by Za Kim RN) Smoking/Tobacco Use Status: Former Tobacco Use Quit Date: 02/10/22 Smoking risk assessment performed?: Yes Alcohol Intake: former Drug use: Daily Substance use type: marijuana Details: mostly edibles Current gender identity: female Do you feel safe at home: Yes Do you feel safe in your relationship?: Yes Exam Const General: cooperative and ill appearing [facility] Head: normal to inspection Other: Moist mucous membranes Eyes Pupils: PERRL Resp Auscultation: wheezes Other: Tachypnea over the Cardio Rate: regular rate Rhythm: regular rhythm GI Other: Diffuse abdominal tenderness Neuro General: patient alert and patient oriented x3 Cranial Nerves: tongue midline Other: Tired in appearance Course Vital Signs Vital signs: Vital Signs Temperature 37.4 C 03/28/22 07:24 Blood Pressure 171/45 H 03/28/22 07:24 Pulse Oximetry 100 03/28/22 07:24 Temperature 37.4 C 03/28/22 07:24 Temperature Source Tympanic 03/28/22 07:24 Pulse 77 03/28/22 08:54 Respiratory Rate 20 03/28/22 08:54 Respiratory Effort Non-Labored 03/28/22 07:34 Blood Pressure 171/45 H 03/28/22 07:24 Blood Pressure Position Supine 03/28/22 07:24 Pulse Oximetry 97 03/28/22 08:54 Oxygen Delivery Method Nasal Cannula 03/28/22 08:54 Oxygen Flow Rate 1 03/28/22 08:54 Lab/Test Results Lab/Test Results: 03/28/22 08:45 Blood Blood Culture - Pending 03/28/22 09:00 Blood Blood Culture - Pending Laboratory Tests Range/Units 03/28/22 03/28/22 03/28/22 08:10 08:10 08:10 WBC (4.4-10.8) 10^3/uL 10.24 RBC (3.93-5.22) 10^6/uL 3.45 L Hgb (11.2-15.7) g/dL 10.3 L Hct (36.0-46.0) % 32.5 L MCV (80-95) fL 94 MCH (27.0-33.0) pg 29.9 MCHC (32.0-36.0) % 31.7 L RDW (11.7-14.6) % 15.5 H Plt Count (130-400) 10^3/uL 90 L MPV (8.0-11.0) fL 12.0 H Immature Gran % 0.6 Neutrophils % 82.7 Lymphocytes % 3.7 Monocytes % 10.3 Eosinophils % 2.4 Basophils % 0.3 Nucleated RBC % (0.0-0.3) % 0.0 Absolute Neutrophils (1.2-6.7) 10^3/uL 8.47 H Absolute Lymphocytes (1.2-3.4) 10^3/uL 0.38 L Absolute Monocytes (0.1-0.8) 10^3/uL 1.05 H Absolute Eosinophils (0.0-0.7) 10^3/uL 0.25 Absolute Basophils (0.0-0.2) 10^3/uL 0.03 RBC Morphology Normal VBG Lactate (0.6-1.4) mmol/L 0.6 Sodium (136-145) mmol/L 135 L Potassium (3.5-5.1) mmol/L 4.6 Chloride (98-107) mmol/L 96 L Carbon Dioxide (21.0-32.0) mmol/L 28.3 Anion Gap (3-11) mmol/L 10.7 BUN (7-18) mg/dL 45 H Creatinine (0.55-1.02) mg/dL 8.4 H* Est GFR (CKD-EPI 2020) (mL/min/1.73m2) 5.08 Glucose (74-106) mg/dL 85 Calcium (8.5-10.1) mg/dL 8.5 Magnesium (1.8-2.4) mg/dL 1.9 Total Bilirubin (0.2-1.0) mg/dL 1.3 H AST (15-37) U/L 27 ALT (14-59) U/L 32 Alkaline Phosphatase (46-116) U/L 239 H Total Protein (6.4-8.2) g/dL 7.4 Albumin (3.4-5.0) g/dL 3.8 COVID-19 Source SARS-CoV-2 (PCR) (Negative) Influenza Type A (PCR) (Negative) Influenza Type B (PCR) (Negative) RSV (PCR) (Negative) Range/Units 03/28/22 03/28/22 08:10 08:17 WBC (4.4-10.8) 10^3/uL RBC (3.93-5.22) 10^6/uL Hgb (11.2-15.7) g/dL Hct (36.0-46.0) % MCV (80-95) fL MCH (27.0-33.0) pg MCHC (32.0-36.0) % RDW (11.7-14.6) % Plt Count (130-400) 10^3/uL MPV (8.0-11.0) fL Immature Gran % Neutrophils % Lymphocytes % Monocytes % Eosinophils % Basophils % Nucleated RBC % (0.0-0.3) % Absolute Neutrophils (1.2-6.7) 10^3/uL Absolute Lymphocytes (1.2-3.4) 10^3/uL Absolute Monocytes (0.1-0.8) 10^3/uL Absolute Eosinophils (0.0-0.7) 10^3/uL Absolute Basophils (0.0-0.2) 10^3/uL RBC Morphology VBG Lactate (0.6-1.4) mmol/L Sodium (136-145) mmol/L Potassium (3.5-5.1) mmol/L Chloride (98-107) mmol/L Carbon Dioxide (21.0-32.0) mmol/L Anion Gap (3-11) mmol/L BUN (7-18) mg/dL Creatinine (0.55-1.02) mg/dL Est GFR (CKD-EPI 2020) (mL/min/1.73m2) Glucose (74-106) mg/dL Calcium (8.5-10.1) mg/dL Magnesium (1.8-2.4) mg/dL 1.8 Total Bilirubin (0.2-1.0) mg/dL AST (15-37) U/L ALT (14-59) U/L Alkaline Phosphatase (46-116) U/L Total Protein (6.4-8.2) g/dL Albumin (3.4-5.0) g/dL COVID-19 Source Nasopharynx SARS-CoV-2 (PCR) (Negative) Negative Influenza Type A (PCR) (Negative) Negative Influenza Type B (PCR) (Negative) Negative RSV (PCR) (Negative) Negative Critical Care Time Critical Care Time Critical Care Time: Yes Total Critical Care Time: 45 Attestation: Recently 45 minutes of critical care time were performed secondary to acute respiratory failure in the presence of COPD exacerbation and a previously known oxygen dependent patient Placed on nasal cannula oxygen at 2 L Diagnostic evaluation including chest x-ray and diagnostic labs IV antibiotics consistent with acute pneumonia And transfer to higher level of care secondary to need for dialysis IV antibiotics, meropenem secondary to inpatient hospitalization for pneumonia in the presence of recent antibiotics for pneumonia in the outpatient setting Telemetry monitoring
[2022-03-28 12:38] LABS: Lactate 0.4 mmol/L (0.6-1.4)
[2022-03-28] MEDS: CEFEPIME 2 GM in Normal Saline 100 ML IVPB (13:06)
[2022-03-28] MEDS: Albuterol/Ipratropium 3 ML UPD VIAL UPD (13:13)
[2022-03-28 13:32] LABS: BE (Venous) 3 mmol/L (-2-3); HCO3 (Venous) 28 mmol/L (23-28); O2 Sat (Venous) 99 %; TCO2 (Venous) 26 mmol/L (24-29); pCO2 (Venous) 50 mmHg (41-51); pH (Venous) 7.36 (7.31-7.41); pO2 (Venous) 126 mmHg
== END 2022-03-28 15:36 | disposition short-term general hospital (02) ==
PROVIDERS: Emergency Medicine; Emergency Provider Physician Assistant; PCP Family Medicine
DX: J44.1 Chronic obstructive pulmonary disease with (acute) exacerbation (principal); J96.91 Respiratory failure, unspecified with hypoxia; J18.9 Pneumonia, unspecified organism; I13.2 Hypertensive heart and chronic kidney disease with heart failure and with stage 5 chronic kidney disease, or end stage renal disease; N18.6 End stage renal disease; I50.9 Heart failure, unspecified; I25.10 Atherosclerotic heart disease of native coronary artery without angina pectoris; Z95.4 Presence of other heart-valve replacement; Z79.82 Long term (current) use of aspirin; Z86.73 Personal history of transient ischemic attack (TIA), and cerebral infarction without residual deficits; Z99.2 Dependence on renal dialysis; Z20.822 Contact with and (suspected) exposure to COVID-19; Z94.0 Kidney transplant status; Z90.710 Acquired absence of both cervix and uterus
CPT/HCPCS: 36415; 80053; 82805; 84145; 87040; 87637; 93005; 94640; 96361; 96365; 96366; 96375; 99291; 71045; 74176; 83605; 83735; 85025; 93010; J2765; J2930; J7620

== ENCOUNTER 2022-04-13 09:12 | Emergency (ER) | payer OTHER, SELFPAY ==
[2022-04-13] VITALS (20 sets, daily range): BP systolic 103–123; BP diastolic 32–98; PULSE 72–84; RESP 10–29; TEMP 37.3; O2SAT 93–97
--- NOTE | 2022-04-13 09:30 | DI.RAD_ITS ---
Exam(s) XR PORTABLE CHEST AP EXAM: XR PORTABLE CHEST AP CLINICAL HISTORY: cough, r/o acute disease TECHNIQUE: 2D digital imaging was performed. COMPARISON: CR XR PORTABLE CHEST AP from 03/28/2022 FINDINGS: Leads overlie the chest. The heart is enlarged, stable. Sternal wires and valve prosthesis are note d. There is a double-lumen catheter tip projecting in right atrium, unchanged. No infiltrate, effus ion or pulmonary edema visible. IMPRESSION: No acute findings. DATA REPOSITORY: RADIATION DOSE DELIVERED:
[2022-04-13 09:35] LABS: Abs Immature Grans 0.01 10^3/uL (0.0-0.06); Absolute Basophil Count 0.04 10^3/uL (0.0-0.2); Absolute Lymphocyte Count 0.38 10^3/uL (1.2-3.4); Absolute Monocyte Count 0.68 10^3/uL (0.1-0.8); Absolute Neutrophil Count 3.62 10^3/uL (1.2-6.7); Basophils % 0.8; Eosinophils % 4.1; HCT 34.8 % (36.0-46.0); HGB 10.6 g/dL (11.2-15.7); Immature Grans % 0.2; Lymphocytes % 7.7; MCH 28.8 pg (27.0-33.0); MCHC 30.5 % (32.0-36.0); MCV 95 fL (80-95); MPV 12.3 fL (8.0-11.0); Monocytes % 13.8; Neutrophils % 73.4; Platelet Count 140 10^3/uL (130-400); RBC 3.68 10^6/uL (3.93-5.22); WBC 4.93 10^3/uL (4.4-10.8)
[2022-04-13 09:51] LABS: ALT 21 U/L (14-59); AST 36 U/L (15-37); Albumin 3.9 g/dL (3.4-5.0); Alkaline Phosphatase 360 U/L (46-116); Anion Gap 7.2 mmol/L (3-11); BUN 13 mg/dL (7-18); Bilirubin, Total 1.1 mg/dL (0.2-1.0); CO2 32.8 mmol/L (21.0-32.0); CREATININE 3.5 mg/dL (0.55-1.02); Calcium 9.4 mg/dL (8.5-10.1); Chloride 97 mmol/L (98-107); Estimated GFR 14.52 (mL/min/1.73m2); Glucose 81 mg/dL (74-106); Potassium 3.1 mmol/L (3.5-5.1); Sodium 137 mmol/L (136-145); Total Protein 7.6 g/dL (6.4-8.2)
[2022-04-13 10:11] LABS: COVID-19 PCR Negative (Negative); Influenza A PCR Negative (Negative); Influenza B PCR Negative (Negative)
[2022-04-13 10:23] LABS: RSV PCR Positive (Negative)
[2022-04-13] MEDS: ACETAMINOPHEN 1,000 MG/100 ML BTL 400 MG IVPB (10:31)
[2022-04-13] MEDS: Potassium Chloride 20 MEQ TABCR PO (10:31)
[2022-04-13] MEDS: Ondansetron 4 MG/2 ML VIAL IVP (10:31)
[2022-04-13] MEDS: Normal Saline 250 ML IV (10:32)
--- NOTE | 2022-04-13 10:34 | ED.GENADUL_ITS ---
Discharge Plan Disposition Patient Disposition: Home Condition: Improving Discharge Details Clinical Impression: Nausea, Diarrhea, RSV infection Primary Care Provider: Chano Neves. ED Provider: Gladis Haji Home Meds and New Rx's Prescriptions: Continued ondansetron HCl 4 mg tablet 4 mg PO ONCE PRN (Reason: nausea and vomiting) Qty: 1 0RF Spiriva with HandiHaler 18 mcg capsule, w/inhalation device 1 cap inhalation DAILY Qty: 1 0RF Rx Instructions: puncture 1 cap using device; one dose = 2 inhalations from [facility] albuterol sulfate 2.5 mg /3 mL (0.083 %) solution for nebulization 2.5 mg inhalation Q6H PRN (Reason: shortness of breath or wheezing) Qty: 3 0RF Rx Instructions: [facility] codeine-guaifenesin 10-100 mg/5 mL liquid See Rx Instructions PO Q6H PRN (Reason: cough) Qty: 120 0RF Rx Instructions: one to two teaspoons PO every 6 hours PRN cough ; aspirin 81 MG tablet,chewable 81 mg PO DAILY albuterol sulfate [ProAir HFA] 8.5 GM HFA aerosol inhaler 2 puff Inhalation Q4H PRN atorvastatin 40 mg tablet 20 mg PO DAILY minoxidil 2.5 mg tablet 5 mg PO QHS omeprazole 40 mg Capsule,Delayed Release(Dr/Ec) 40 mg PO BID meclizine 12.5 mg Tablet 12.5 mg PO PRN PRN (DME) Aerochamber MV Spacer MISCELLANEOUS ipratropium-albuterol 0.5 mg-3 mg(2.5 mg base)/3 mL solution for nebulization 3 ml inhalation Q4H PRNQty: 180 0RF sucralfate 1 gram tablet 1 g PO DAILY Label Comments: TAKE 1 TABLET BY MOUTH FOUR TIMES DAILY BEFORE MEALS AND AT BEDTIME loperamide 2 mg Capsule 2 mg PO PRN PRN diphenhydramine HCl 25 mg Tablet 25 mg PO PRN PRN calcitriol 1 mcg/mL Solution 1 mcg Discharge Instructions Instructions: Respiratory Syncytial Virus (ED), Acute Nausea and Vomiting (ED), Acute Diarrhea (ED) Additional Instructions: You tested positive for the RSV virus today. This is a respiratory virus that can cause fever, fatigue, runny nose, sore throat and coughing. The remainder of your blood tests are reassurring, your COVID and influenza tests are negative and your chest x-ray was negative for acute disease today. Drink plenty of fluids and get plenty of rest. Take Tylenol as needed and directed for pain. Return the stool sample to the hospital as directed. Follow-up with your primary care doctor in 1 week. Return to the emergency department with any worsening or new concerning symptoms. Discharge Data Discharge Physician: Gladis Haji Medical Decision Making 0918 -- 56-year-old female with a history of hypertension, hyperlipidemia, GERD, COPD, end-stage renal disease on dialysis, aortic valve replacement, kidney transplant presents from dialysis for nausea and dry heaving. EMS reported that they were called to the dialysis center for new cough with clear phlegm. Review of records note that patient was transferred to [facility] on March 28 for COPD and pneumonia. She was recently discharged and since then has developed watery brown diarrhea for the past few days and nausea today. She states she has a chronic cough and denies any new shortness of breath. 1215 --labs and imaging reviewed. Normal white blood cell count. Hemoglobin stable at 10. Potassium 3.1, likely decreased in the setting of diarrhea, will replete. Creatinine 3.5, reflecting recent dialysis. RSV +. Covid and RSV negative. CXR negative for acute disease. Patient reassessed and she feels much better and she is requesting to eat. Patient was able to eat shepherds pie and mashed potatoes and feels comfortable going home. She was unable to provide a stool sample and has had no further diarrhea here. She has normal oxygen saturation and is breathing comfortably. We will give Zofran to go. She was given a stool sample kit to go. Advised to follow up with the primary care doctor for re-evaluation. Usual and customary return precautions given prior to discharge. Medical Records Medical records reviewed: Yes I reviewed the patient's medical records. Imaging Data Radiologic Study: Radiologist's impression: XR PORTABLE CHEST AP CLINICAL HISTORY:? cough, r/o acute disease TECHNIQUE:? 2D digital imaging was performed. COMPARISON:? CR XR PORTABLE CHEST AP from 03/28/2022 FINDINGS: Leads overlie the chest.? The heart is enlarged, stable.? Sternal wires and valve prosthesis are noted.? There is a double-lumen catheter tip projecting in right atrium, unchanged.? No infiltrate, effusion or pulmonary edema visible. IMPRESSION: No acute? findings. Lab Data Lab results reviewed: Yes I reviewed the patient's lab results. Labs: Laboratory Tests Range/Units 04/13/22 04/13/22 04/13/22 09:20 09:27 09:27 WBC (4.4-10.8) 10^3/uL 4.93 RBC (3.93-5.22) 10^6/uL 3.68 L Hgb (11.2-15.7) g/dL 10.6 L Hct (36.0-46.0) % 34.8 L MCV (80-95) fL 95 MCH (27.0-33.0) pg 28.8 MCHC (32.0-36.0) % 30.5 L RDW (11.7-14.6) % 15.0 H Plt Count (130-400) 10^3/uL 140 MPV (8.0-11.0) fL 12.3 H Immature Gran % 0.2 Neutrophils % 73.4 Lymphocytes % 7.7 Monocytes % 13.8 Eosinophils % 4.1 Basophils % 0.8 Nucleated RBC % (0.0-0.3) % 0.0 Absolute Neutrophils (1.2-6.7) 10^3/uL 3.62 Absolute Lymphocytes (1.2-3.4) 10^3/uL 0.38 L Absolute Monocytes (0.1-0.8) 10^3/uL 0.68 Absolute Eosinophils (0.0-0.7) 10^3/uL 0.20 Absolute Basophils (0.0-0.2) 10^3/uL 0.04 Sodium (136-145) mmol/L 137 Potassium (3.5-5.1) mmol/L 3.1 L Chloride (98-107) mmol/L 97 L Carbon Dioxide (21.0-32.0) mmol/L 32.8 H Anion Gap (3-11) mmol/L 7.2 BUN (7-18) mg/dL 13 Creatinine (0.55-1.02) mg/dL 3.5 H Est GFR (CKD-EPI 2020) (mL/min/1.73m2) 14.52 Glucose (74-106) mg/dL 81 Calcium (8.5-10.1) mg/dL 9.4 Total Bilirubin (0.2-1.0) mg/dL 1.1 H AST (15-37) U/L 36 ALT (14-59) U/L 21 Alkaline Phosphatase (46-116) U/L 360 H Total Protein (6.4-8.2) g/dL 7.6 Albumin (3.4-5.0) g/dL 3.9 COVID-19 Source Nasopharynx SARS-CoV-2 (PCR) (Negative) Negative Influenza Type A (PCR) (Negative) Negative Influenza Type B (PCR) (Negative) Negative RSV (PCR) (Negative) Positive A* HPI General Mode of arrival: EMS . Date/Time Provider Initiated Documentation: 04/13/22 09:18 . Limitations to Documentation: no limitations . Information obtained by: patient . HPI Narrative: Patient is a 56-year-old female with a history of hypertension, hyperlipidemia, GERD, COPD, end-stage renal disease on dialysis, aortic valve replacement, kidney transplant presents from dialysis for nausea and dry heaving. She had a recent hospitalization for COPD and pneumonia and had been transferred to [facility] due to lack of local bed availability and need for dialysis. She states she developed watery brown diarrhea a few days ago and has been having multiple episodes daily. She states she has a chronic cough and does not believe it is any worse than usual. Dialysis called EMS for patient complaining of a new cough with clear phlegm. Patient denies any worsening shortness of breath and is mainly complaining now of nausea. She denies any fever, chest pain, difficulty breathing, abdominal pain. Patient states she is on a Monday schedule for her dialysis and did receive a full session 2 days ago and received three quarters of a session today. She states she no longer makes urine. Related Data Home Medications Medication Instructions Recorded Confirmed aspirin 81 mg chewable tablet 81 mg PO DAILY 05/24/16 04/13/22 albuterol sulfate 90 mcg/actuation 2 puff inhalation Q4H PRN 07/26/17 04/13/22 aerosol inhaler (ProAir HFA) inhalational spacing device 01/26/19 04/12/22 (Aerochamber MV spacer) meclizine 12.5 mg tablet 12.5 mg PO PRN PRN 03/18/19 04/13/22 omeprazole 40 mg capsule,delayed 40 mg PO BID 03/18/19 04/13/22 release atorvastatin 40 mg tablet 20 mg PO DAILY 10/24/19 04/13/22 albuterol sulfate 2.5 mg/3 mL 2.5 mg (3 mL) inhalation Q6H PRN 02/16/21 04/13/22 (0.083 %) solution for nebulization shortness of breath or wheezing #3 mL tiotropium bromide 18 mcg capsule 1 cap inhalation DAILY #1 inh 02/16/21 04/13/22 with inhalation device (Spiriva with HandiHaler) minoxidil 2.5 mg tablet 5 mg PO QHS 01/21/22 04/13/22 ondansetron HCl 4 mg tablet 4 mg PO ONCE PRN nausea and 02/08/22 04/13/22 vomiting #1 tab ipratropium 0.5 mg-albuterol 3 mg 3 ml inhalation Q4H PRN #180 mL 03/01/22 04/12/22 (2.5 mg base)/3 mL nebulization soln codeine 10 mg-guaifenesin 100 mg/5 See Rx Instructions PO Q6H PRN 03/03/22 04/13/22 mL oral liquid cough #120 mL calcitriol 1 mcg/mL intravenous 1 mcg 04/13/22 solution diphenhydramine HCl 25 mg tablet 25 mg PO PRN PRN 04/13/22 04/13/22 loperamide 2 mg capsule 2 mg PO PRN PRN 04/13/22 04/13/22 sucralfate 1 gram tablet 1 g PO DAILY 04/13/22 04/13/22 Previous Rx's Medication Instructions Recorded albuterol sulfate 2.5 mg/3 mL 2.5 mg (3 mL) inhalation Q6H PRN 02/16/21 (0.083 %) solution for nebulization shortness of breath or wheezing #3 mL tiotropium bromide 18 mcg capsule 1 cap inhalation DAILY #1 inh 02/16/21 with inhalation device (Spiriva with HandiHaler) ondansetron HCl 4 mg tablet 4 mg PO ONCE PRN nausea and 02/08/22 vomiting #1 tab ipratropium 0.5 mg-albuterol 3 mg 3 ml inhalation Q4H PRN #180 mL 03/01/22 (2.5 mg base)/3 mL nebulization soln codeine 10 mg-guaifenesin 100 mg/5 See Rx Instructions PO Q6H PRN 03/03/22 mL oral liquid cough #120 mL Allergies Allergy/AdvReac Type Severity Reaction Status Date / Time cephalexin monohydrate Allergy Severe trouble Verified 03/28/22 07:31 [From Keflex] breathing colchicine Allergy Verified 03/28/22 07:31 allopurinol AdvReac Intermediate gout Verified 03/28/22 07:31 breakout erythromycin base AdvReac Intermediate gout Verified 03/28/22 07:31 breakout acetaminophen [From Percocet] AdvReac Unverified 04/13/22 10:08 oxycodone [From Percocet] AdvReac Unverified 04/13/22 10:08 General Stated Complaint: RespSymp AWA: 3 Review of Systems All systems reviewed & are unremarkable except as noted in HPI and below Constitutional Constitutional: Reports as per HPI, Denies chills and Denies fever(s) Eyes Eyes: Denies blurry vision ENT Ears, Nose, Mouth, and Throat: Denies dizziness, Denies sore throat and Denies throat swelling Cardiovascular Cardiovascular: Denies chest pain and Denies dyspnea Respiratory Respiratory: Reports cough and Denies dyspnea Gastrointestinal Gastrointestinal: Denies abdominal pain, Reports diarrhea, Reports nausea (dry heaving) and Denies vomiting Genitourinary Genitourinary: Denies hematuria and Denies dysuria Musculoskeletal Musculoskeletal: Denies back pain and Denies numbness Integumentary/Breasts Skin/Breast: Denies lesions and Denies rash Neurologic Neurologic: Denies dizziness, Denies localized weakness and Denies numbness Allergic/Immunologic Allergic/Immunologic: Denies throat swelling PFSH All Active Problems (Updated 04/13/22 @ 12:23 by Gladis Haji DO) Nausea (Acute) Diarrhea (Acute) RSV infection (Acute) Fever (Acute) Pneumonia (Acute) Respiratory failure (Acute) Open abdominal wall wound (Acute) ESRD on dialysis (Chronic) On hemodialysis currently using central catheter-nephrology at [facility] receives dialysis at [facility] Depression (Acute 08/28/14) Gallstones (Acute) COPD (chronic obstructive pulmonary disease) (Chronic) Pulmonary at [facility] Central venous catheter in place (Acute ~10/29/19) [facility], right subclavian-dialysis Tricuspid regurgitation (Acute) s/p tricuspid valve replacement 02/2020, bovine Cirrhosis, alcoholic (Acute) POLST (Physician Orders for Life-Sustaining Treatment) (Acute) COLST completed 02/13/2020, DNR/DNI. Hemorrhage of arteriovenous fistula (Acute) Ventral hernia (Acute) Hypertension (Chronic) Aortic valve replaced (Acute) Bovine-with [facility] Personal history of nicotine dependence (Acute) 02/2021 Tobacco abuse (Acute) Lung nodule, solitary (Acute) Hemoptysis (Acute) Medical History Axillary lymphadenopathy Bleeding hemorrhoids (01/08/13) rectal bleeding (colonoscopy [facility] 01/01/13 internal hemorrhoids and diverticuli) Cannabis dependence CVD (cardiovascular disease) Cyst of ovary (08/20/12) Depression (09/14/12) Diverticulitis of large intestine without perforation or abscess with bleeding Essential hypertension (01/16/13) severe and labile Gastroesophageal reflux disease with esophagitis (02/03/15) Hyperlipidemia Hyperparathyroidism, unspecified (02/09/11) 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[facility] Macular degeneration of left eye (~10/17/19) [facility] Nail dystrophy Recurrent urinary tract infection Right heart failure Secondary hyperparathyroidism (of renal origin) Umbilical hernia repaired 1995,1997,2001,2003 Upper GI bleed (05/17/14) 05/15/14 [facility] EGD, HH, esophagitis, gastric ulcer and duodenitis Surgical History Abdominal hysterectomy (~2006) s/p hyst, but cervix still present and needs yearly PAP due to transplant H/O aortic valve replacement History of kidney transplant Repair of umbilical hernia 1995,1997,2001,2003 TRANSPLANT, KIDNEY (~1997) LEFT Family History Mother Essential hypertension Personal history of malignant neoplasm KIDNEY Heart disease Pulmonary emphysema Father Personal history of malignant neoplasm Pulmonary emphysema Brother Hyperlipidemia Brother Hyperlipidemia Brother No problems noted. Social History (Updated 03/03/22 @ 16:54 by Za Kim RN) Smoking/Tobacco Use Status: Former Tobacco Use Quit Date: 02/10/22 Smoking risk assessment performed?: Yes Alcohol Intake: former Drug use: Daily Substance use type: marijuana Details: mostly edibles Current gender identity: female Do you feel safe at home: Yes Do you feel safe in your relationship?: Yes Exam Const General: cooperative, healthy appearing and no acute distress Orientation: alert, awake and oriented x3 HENMT Head: normal to inspection Ears: hearing grossly normal bilaterally and external ears normal Face and sinus: normal facial exam Mouth: mucous membranes dry Eyes General: appearance normal, both eyes and all related structures Pupils: PERRL EOM: EOM intact bilaterally Neck Neck: normal visual inspection and No submandibular swelling Lymphatic: no lymphadenopathy noted Chest Chest: normal inspection of the chest and no tenderness Resp Effort & Inspection: normal respiratory effort and able to speak in complete sentences Auscultation: clear to auscultation bilaterally Cardio Rate: regular rate Rhythm: regular rhythm GI Inspection: normal to inspection Palpation: soft, not firm, not rigid and nontender Auscultation: hypoactive bowel sounds Back/Spine/Pelvis Thoracic/Lumbar Spine: thoracic and lumbar spine normal to inspection Skin General skin exam: no rashes or lesions noted Neuro General: patient alert, patient awake and patient oriented x3 Cognition: normal cognition Speech: speech normal Motor: muscle tone normal throughout Sensory Exam: no sensory deficits noted Extrem General: normal to inspection, full ROM, capillary refill normal, no calf tenderness bilaterally and no edema Psych Appearance: grossly normal Mental Status: mental status grossly normal Speech and Movement: speech and movement normal Affect: normal affect Course Vital Signs Vital signs: Vital Signs Temperature 99.1 F 04/13/22 09:15 Pulse 76 04/13/22 09:15 Respiratory Rate 24 04/13/22 09:15 Blood Pressure 123/98 H 04/13/22 09:15 Pulse Oximetry 96 04/13/22 09:15 Temperature 99.1 F 04/13/22 09:15 Temperature Source Oral 04/13/22 09:15 Pulse 76 04/13/22 09:15 Respiratory Rate 24 04/13/22 09:15 Respiratory Effort 04/13/22 10:14 Respiratory Depth Normal 04/13/22 10:14 Blood Pressure 123/98 H 04/13/22 09:15 Blood Pressure Position Sitting 04/13/22 09:15 Pulse Oximetry 96 04/13/22 09:15 Oxygen Delivery Method Nasal Cannula 04/13/22 09:15 Oxygen Flow Rate 4 04/13/22 09:15 Pain Level 6 04/13/22 09:15 Lab/Test Results Lab/Test Results: Laboratory Tests Range/Units 04/13/22 04/13/22 04/13/22 09:20 09:27 09:27 WBC (4.4-10.8) 10^3/uL 4.93 RBC (3.93-5.22) 10^6/uL 3.68 L Hgb (11.2-15.7) g/dL 10.6 L Hct (36.0-46.0) % 34.8 L MCV (80-95) fL 95 MCH (27.0-33.0) pg 28.8 MCHC (32.0-36.0) % 30.5 L RDW (11.7-14.6) % 15.0 H Plt Count (130-400) 10^3/uL 140 MPV (8.0-11.0) fL 12.3 H Immature Gran % 0.2 Neutrophils % 73.4 Lymphocytes % 7.7 Monocytes % 13.8 Eosinophils % 4.1 Basophils % 0.8 Nucleated RBC % (0.0-0.3) % 0.0 Absolute Neutrophils (1.2-6.7) 10^3/uL 3.62 Absolute Lymphocytes (1.2-3.4) 10^3/uL 0.38 L Absolute Monocytes (0.1-0.8) 10^3/uL 0.68 Absolute Eosinophils (0.0-0.7) 10^3/uL 0.20 Absolute Basophils (0.0-0.2) 10^3/uL 0.04 Sodium (136-145) mmol/L 137 Potassium (3.5-5.1) mmol/L 3.1 L Chloride (98-107) mmol/L 97 L Carbon Dioxide (21.0-32.0) mmol/L 32.8 H Anion Gap (3-11) mmol/L 7.2 BUN (7-18) mg/dL 13 Creatinine (0.55-1.02) mg/dL 3.5 H Est GFR (CKD-EPI 2020) (mL/min/1.73m2) 14.52 Glucose (74-106) mg/dL 81 Calcium (8.5-10.1) mg/dL 9.4 Total Bilirubin (0.2-1.0) mg/dL 1.1 H AST (15-37) U/L 36 ALT (14-59) U/L 21 Alkaline Phosphatase (46-116) U/L 360 H Total Protein (6.4-8.2) g/dL 7.6 Albumin (3.4-5.0) g/dL 3.9 SARS-CoV-2 (PCR) (Negative) Negative Influenza Type A (PCR) (Negative) Negative Influenza Type B (PCR) (Negative) Negative RSV (PCR) (Negative) Positive A*
[2022-04-13 11:14] LABS: Source Nasopharynx
[2022-04-13] MEDS: Ondansetron O.D.T. 4 MG TABEF, 3 TABS/BTL PO (12:40)
== END 2022-04-13 12:52 | disposition home or self-care (01) ==
PROVIDERS: Emergency Provider Physician Assistant; PCP Family Medicine
DX: J98.8 Other specified respiratory disorders (principal); B97.4 Respiratory syncytial virus as the cause of diseases classified elsewhere; R11.0 Nausea; R19.7 Diarrhea, unspecified; I13.0 Hypertensive heart and chronic kidney disease with heart failure and stage 1 through stage 4 chronic kidney disease, or unspecified chronic kidney disease; I50.9 Heart failure, unspecified; N18.6 End stage renal disease; J44.9 Chronic obstructive pulmonary disease, unspecified; Z95.4 Presence of other heart-valve replacement; Z20.822 Contact with and (suspected) exposure to COVID-19; Z94.0 Kidney transplant status; Z99.2 Dependence on renal dialysis; Z79.82 Long term (current) use of aspirin; Z86.73 Personal history of transient ischemic attack (TIA), and cerebral infarction without residual deficits
CPT/HCPCS: 80053; 87493; 87505; 87637; 96361; 96365; 96375; 99284; 71045; 85025; J0131; J2405

== ENCOUNTER 2022-04-15 07:05 | Emergency (ER) | payer OTHER, SELFPAY ==
[2022-04-15] VITALS (99 sets, daily range): BP systolic 100–166; BP diastolic 40–78; PULSE 78–105; RESP 14–26; TEMP 36.3–39; O2SAT 90–97
--- NOTE | 2022-04-15 07:15 | RT.EKG_ITS ---
APPROVED REPORT Exam: Resting ECG Reason for Exam: Dyspnea Patient Location: E HR:94 bpm ECG Measurements Heart Rate 94 AXIS OK 58 P 0 QRSd 162 QRS 158 QT 375 T -7 QTc 470 Conclusion Sinus rhythm...normal P axis, V-rate 60- 99 Right bundle branch block...QRSd>120, terminal axis(90,270) Lateral infarct, old...Q>40mS, flat T, V5 V6 I aVL Physician:Notable RBBB and artifact
--- NOTE | 2022-04-15 07:18 | ED.GENADUL_ITS ---
Discharge Plan Discharge Details Chief Complaint: GenMedical Primary Care Provider: Chano Neves ED Provider: Bhanu Mayorga Home Meds and New Rx's Prescriptions: No Action ondansetron HCl 4 mg tablet 4 mg PO ONCE PRN (Reason: nausea and vomiting) Qty: 1 0RF Spiriva with HandiHaler 18 mcg capsule, w/inhalation device 1 cap inhalation DAILY Qty: 1 0RF Rx Instructions: puncture 1 cap using device; one dose = 2 inhalations from [facility] albuterol sulfate 2.5 mg /3 mL (0.083 %) solution for nebulization 2.5 mg inhalation Q6H PRN (Reason: shortness of breath or wheezing) Qty: 3 0RF Rx Instructions: [place] codeine-guaifenesin 10-100 mg/5 mL liquid See Rx Instructions PO Q6H PRN (Reason: cough) Qty: 120 0RF Rx Instructions: one to two teaspoons PO every 6 hours PRN cough ; aspirin 81 MG tablet,chewable 81 mg PO DAILY albuterol sulfate [ProAir HFA] 8.5 GM HFA aerosol inhaler 2 puff Inhalation Q4H PRN atorvastatin 40 mg tablet 20 mg PO DAILY minoxidil 2.5 mg tablet 5 mg PO QHS codeine-guaifenesin 10-100 mg/5 mL liquid See Rx Instructions PO Q6H PRN (Reason: cough) Qty: 120 0RF Rx Instructions: one to two teaspoons PO every 6 hours PRN cough ; omeprazole 40 mg Capsule,Delayed Release(Dr/Ec) 40 mg PO BID meclizine 12.5 mg Tablet 12.5 mg PO PRN PRN (DME) Aerochamber MV Spacer MISCELLANEOUS ipratropium-albuterol 0.5 mg-3 mg(2.5 mg base)/3 mL solution for nebulization 3 ml inhalation Q4H PRNQty: 180 0RF sucralfate 1 gram tablet 1 g PO DAILY Label Comments: TAKE 1 TABLET BY MOUTH FOUR TIMES DAILY BEFORE MEALS AND AT BEDTIME loperamide 2 mg Capsule 2 mg PO PRN PRN diphenhydramine HCl 25 mg Tablet 25 mg PO PRN PRN calcitriol 1 mcg/mL Solution 1 mcg Medical Decision Making 56-year-old female with a history of hypertension, hyperlipidemia, GERD, COPD, end-stage renal disease on dialysis, aortic valve replacement, kidney transplant, who is on dialysis Monday, Monday, Monday, presents today for evaluation of fever. She went to dialysis today and she was noted to be febrile by the dialysis team. They refused to perform dialysis and recommend that she come for evaluation. She was diagnosed with respiratory syncytial virus 2 days ago. She has had a cough that is continued since then. She did have diarrhea previously about 3 to 5 days ago, but this is improved and resolved with Imodium. She denies any chest pain. She denies any vomiting. She denies any hemoptysis. No other complaints at this time. No other modifying factors. Exam demonstrates rhonchorous breath sounds. She is febrile here. Heart rate elevated. Concern for pneumonia. We will get labs, chest x-ray, give Tylenol, monitor closely and reassess. Patient will be signed out to my colleague Dr. Victor for follow-up on labs and imaging. HPI General Date/Time Provider Initiated Documentation: 04/15/22 07:13 . HPI Narrative: 56-year-old female with a history of hypertension, hyperlipidemia, GERD, COPD, end-stage renal disease on dialysis, aortic valve replacement, kidney transplant, who is on dialysis Monday, Monday, Monday, presents today for evaluation of fever. She went to dialysis today and she was noted to be febrile by the dialysis team. They refused to perform dialysis and recommend that she come for evaluation. She was diagnosed with respiratory syncytial virus 2 days ago. She has had a cough that is continued since then. She did have diarrhea previously about 3 to 5 days ago, but this is improved and resolved with Imodium. She denies any chest pain. She denies any vomiting. She denies any hemoptysis. No other complaints at this time. No other modifying factors. Related Data Home Medications Medication Instructions Recorded Confirmed aspirin 81 mg chewable tablet 81 mg PO DAILY 05/24/16 04/15/22 albuterol sulfate 90 mcg/actuation 2 puff inhalation Q4H PRN 07/26/17 04/15/22 aerosol inhaler (ProAir HFA) inhalational spacing device 01/26/19 04/12/22 (Aerochamber MV spacer) meclizine 12.5 mg tablet 12.5 mg PO PRN PRN 03/18/19 04/15/22 omeprazole 40 mg capsule,delayed 40 mg PO BID 03/18/19 04/15/22 release atorvastatin 40 mg tablet 20 mg PO DAILY 10/24/19 04/15/22 albuterol sulfate 2.5 mg/3 mL 2.5 mg (3 mL) inhalation Q6H PRN 02/16/21 04/15/22 (0.083 %) solution for nebulization shortness of breath or wheezing #3 mL tiotropium bromide 18 mcg capsule 1 cap inhalation DAILY #1 inh 02/16/21 04/15/22 with inhalation device (Spiriva with HandiHaler) minoxidil 2.5 mg tablet 5 mg PO QHS 01/21/22 04/15/22 ondansetron HCl 4 mg tablet 4 mg PO ONCE PRN nausea and 02/08/22 04/15/22 vomiting #1 tab ipratropium 0.5 mg-albuterol 3 mg 3 ml inhalation Q4H PRN #180 mL 03/01/22 04/15/22 (2.5 mg base)/3 mL nebulization soln codeine 10 mg-guaifenesin 100 mg/5 See Rx Instructions PO Q6H PRN 03/03/2204/15 mL oral liquid cough #120 mL calcitriol 1 mcg/mL intravenous 1 mcg 04/13/22 solution diphenhydramine HCl 25 mg tablet 25 mg PO PRN PRN 04/13/22 04/15/22 loperamide 2 mg capsule 2 mg PO PRN PRN 04/13/22 04/15/22 sucralfate 1 gram tablet 1 g PO DAILY 04/13/22 04/15/22 codeine 10 mg-guaifenesin 100 mg/5 See Rx Instructions PO Q6H PRN 04/14/22 04/15/22 mL oral liquid cough #120 mL Previous Rx's Medication Instructions Recorded albuterol sulfate 2.5 mg/3 mL 2.5 mg (3 mL) inhalation Q6H PRN 02/16/21 (0.083 %) solution for nebulization shortness of breath or wheezing #3 mL tiotropium bromide 18 mcg capsule 1 cap inhalation DAILY #1 inh 02/16/21 with inhalation device (Spiriva with HandiHaler) ondansetron HCl 4 mg tablet 4 mg PO ONCE PRN nausea and 02/08/22 vomiting #1 tab ipratropium 0.5 mg-albuterol 3 mg 3 ml inhalation Q4H PRN #180 mL 03/01/22 (2.5 mg base)/3 mL nebulization soln codeine 10 mg-guaifenesin 100 mg/5 See Rx Instructions PO Q6H PRN 03/03/22 mL oral liquid cough #120 mL codeine 10 mg-guaifenesin 100 mg/5 See Rx Instructions PO Q6H PRN 04/14/22 mL oral liquid cough #120 mL Allergies Allergy/AdvReac Type Severity Reaction Status Date / Time cephalexin monohydrate Allergy Severe trouble Verified 04/15/22 07:13 [From Keflex] breathing colchicine Allergy Verified 04/15/22 07:13 allopurinol AdvReac Intermediate gout Verified 04/15/22 07:13 breakout erythromycin base AdvReac Intermediate gout Verified 04/15/22 07:13 breakout acetaminophen [From Percocet] AdvReac Unverified 04/15/22 07:13 oxycodone [From Percocet] AdvReac Unverified 04/15/22 07:13 General Stated Complaint: GenMedical AWA: 3 Review of Systems All systems reviewed & are unremarkable except as noted in HPI and below PFSH All Active Problems Nausea (Acute) Diarrhea (Acute) RSV infection (Acute) Fever (Acute) Pneumonia (Acute) Respiratory failure (Acute) Open abdominal wall wound (Acute) ESRD on dialysis (Chronic) On hemodialysis currently using central catheter-nephrology at [facility] receives dialysis at [facility] region Depression (Acute 08/28/14) Gallstones (Acute) COPD (chronic obstructive pulmonary disease) (Chronic) Pulmonary at [facility] Central venous catheter in place [place]Acute [place]10[place]29/19[place] [facility] [place] sub[place] Tricuspid regurgitation (Acute) s/p tricuspid valve replacement 02/2020, bovine Cirrhosis, alcoholic (Acute) POLST (Physician Orders for Life-Sustaining Treatment) (Acute) COLST completed 02/13/2020, DNR/DNI. Hemorrhage of arteriovenous fistula (Acute) Ventral hernia (Acute) Hypertension (Chronic) Aortic valve replaced (Acute) Bovine-with [facility] Personal history of nicotine dependence (Acute) 02/2021 Tobacco abuse (Acute) Lung nodule, solitary (Acute) Hemoptysis (Acute) Medical History Axillary lymphadenopathy Bleeding hemorrhoids (01/08/13) rectal bleeding [place] [facility] [place] internal hemorrhoids and diverticuli) Cannabis dependence CVD (cardiovascular disease) Cyst of ovary (08/20/12) Depression (09/14/12) Diverticulitis of large intestine without perforation or abscess with bleeding Essential hypertension (01/16/13) severe and labile Gastroesophageal reflux disease with esophagitis (02/03/15) Hyperlipidemia Hyperparathyroidism, unspecified (02/09/11) 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[facility] [place]ular degeneration of left eye (~10/17/19[place] [facility] [place] Nail dystrophy Recurrent urinary tract infection Right heart failure Secondary hyperparathyroidism (of renal origin) Umbilical hernia repaired 1995,1997,2001,2003 Upper GI bleed (05/17/14) 05/15/14 [facility] [place], HH, esophagitis, gastric ulcer and duodenitis Surgical History Abdominal hysterectomy (~2006) s/p hyst, but cervix still present and needs yearly PAP due to transplant H/O aortic valve replacement History of kidney transplant Repair of umbilical hernia 1995,1997,2001,2003 TRANSPLANT, KIDNEY (~1997) LEFT Family History Mother Essential hypertension Personal history of malignant neoplasm KIDNEY Heart disease Pulmonary emphysema Father Personal history of malignant neoplasm Pulmonary emphysema Brother Hyperlipidemia Brother Hyperlipidemia Brother No problems noted. Social History Smoking/Tobacco Use Status: Former Tobacco Use Quit Date: 02/10/22 Smoking risk assessment performed?: Yes Alcohol Intake: former Drug use: Daily Substance use type: marijuana Details: mostly edibles Current gender identity: female Do you feel safe at home: Yes Do you feel safe in your relationship?: Yes Exam Narrative Exam Narrative: 1.Const: Well-nourished, Well-developed, appearing stated age 2.Eyes: PERRL, no conjunctival injection, and symmetrical lids. 3.ENT: Atraumatic external nose and ears. Moist MM. Neck: Symmetric, trachea midline, No thyromegaly. 4.CVS: +S1/S2, No murmurs or gallops. Peripheral pulses 2+ and equal in all extremities. Brisk capillary refill in all extremities. 5.RESP: Mild rhonchi throughout. No rales or wheezes. Chest wall demonstrates dialysis port in right chest. 6.GI: Soft, Nontender/Nondistended, No hepatosplenomegaly. No guarding or rebound. 7.MSK: Normocephalic/Atraumatic, Extremities w/o deformity or ttp No cyanosis or clubbing, Normal movement of all extremities. Multiple failed fistulas on the left and the right. Right AV fistula still has palpable thrill. 8.Skin: Warm, Dry. No rashes or lesions. 9.Neuro: pump installation and servicer II-XII grossly intact. Sensation grossly intact, no focal neurologic deficits. 10.Psych: (AAO) x3. Appropriate mood and affect Course Vital Signs Vital signs: Vital Signs Temperature 39.0 C H 04/15/22 07:08 Pulse 89 04/15/22 07:08 Respiratory Rate 22 04/15/22 07:08 Blood Pressure 153/76 H 04/15/22 07:08 Pulse Oximetry 90 L 04/15/22 07:08 Temperature 39.0 C H 04/15/22 07:08 Temperature Source Temporal Artery Scan 04/15/22 07:08 Pulse 89 04/15/22 07:08 Respiratory Rate 22 04/15/22 07:08 Respiratory Effort Labored 04/15/22 07:15 Blood Pressure 153/76 H 04/15/22 07:08 Blood Pressure Position Sitting 04/15/22 07:08 Pulse Oximetry 90 L 04/15/22 07:08 Oxygen Delivery Method Nasal Cannula 04/15/22 07:08 Oxygen Flow Rate 2 04/15/22 07:08 Pain Level 8 04/15/22 07:08
[2022-04-15 07:47] LABS: BE (Venous) 1 mmol/L (-2-3); HCO3 (Venous) 27 mmol/L (23-28); O2 Sat (Venous) 93 %; TCO2 (Venous) 25 mmol/L (24-29); pCO2 (Venous) 48 mmHg (41-51); pH (Venous) 7.35 (7.31-7.41); pO2 (Venous) 64 mmHg
[2022-04-15 07:48] LABS: Abs Immature Grans 0.02 10^3/uL (0.0-0.06); Absolute Basophil Count 0.04 10^3/uL (0.0-0.2); Absolute Eosinophil Count 0.03 10^3/uL (0.0-0.7); Absolute Lymphocyte Count 0.53 10^3/uL (1.2-3.4); Absolute Neutrophil Count 3.46 10^3/uL (1.2-6.7); Basophils % 0.8; Eosinophils % 0.6; HCT 29.9 % (36.0-46.0); HGB 9.2 g/dL (11.2-15.7); Immature Grans % 0.4; Lymphocytes % 10.9; MCH 28.9 pg (27.0-33.0); MCHC 30.8 % (32.0-36.0); MCV 94 fL (80-95); MPV 12.3 fL (8.0-11.0); Monocytes % 16.4; Neutrophils % 70.9; Platelet Count 133 10^3/uL (130-400); RBC 3.18 10^6/uL (3.93-5.22); RDW 15.3 % (11.7-14.6); RDW-SD 53.6 fL; WBC 4.88 10^3/uL (4.4-10.8)
--- NOTE | 2022-04-15 08:00 | DI.RAD_ITS ---
Exam(s) XR PORTABLE CHEST AP EXAM: XR PORTABLE CHEST AP CLINICAL HISTORY: cough, fever, rsv, r/o pneumonia. TECHNIQUE: 2D digital imaging was performed. COMPARISON: CR XR PORTABLE CHEST AP from 04/13/2022 FINDINGS: Single AP portable view. Distal tip of the right supra clavi in catheter is in the right atrium, unchanged. Sternotomy wires again noted. Two prosthetic cardiac valves are again evident. Cardiomegaly again noted. Mediastinum not widened. Mild increased markings in the right lung base as well as in the right midlung.. No pulmonary edema. IMPRESSION: Findings as above. Recommend nonportable PA and lateral views when clinically possible. DATA REPOSITORY: RADIATION DOSE DELIVERED:
[2022-04-15] MEDS: Ondansetron 4 MG/2 ML VIAL IVP ×2 (08:04→18:24)
[2022-04-15] MEDS: ACETAMINOPHEN 1,000 MG/100 ML BTL 400 MG IVPB (08:08)
[2022-04-15 08:13] LABS: ALT 21 U/L (14-59); AST 42 U/L (15-37); Albumin 3.6 g/dL (3.4-5.0); Alkaline Phosphatase 353 U/L (46-116); Anion Gap 11.3 mmol/L (3-11); BUN 41 mg/dL (7-18); Bilirubin, Total 1.1 mg/dL (0.2-1.0); CO2 26.7 mmol/L (21.0-32.0); Calcium 8.5 mg/dL (8.5-10.1); Chloride 94 mmol/L (98-107); Estimated GFR 6.11 (mL/min/1.73m2); Glucose 83 mg/dL (74-106); Sodium 132 mmol/L (136-145); Total Protein 7.1 g/dL (6.4-8.2)
[2022-04-15 08:15] LABS: CREATININE 7.2 mg/dL (0.55-1.02); Troponin I 118 ng/L (<or=60)
[2022-04-15 08:40] LABS: Procalcitonin 1.7 ng/mL
[2022-04-15 08:47] LABS: COVID-19 PCR Negative (Negative); Influenza A PCR Negative (Negative); Influenza B PCR Negative (Negative)
[2022-04-15 08:52] LABS: Source Nasopharynx
[2022-04-15 08:53] LABS: RSV PCR Positive (Negative)
--- NOTE | 2022-04-15 10:15 | RT.EKG_ITS ---
APPROVED REPORT Exam: Resting ECG Reason for Exam: Repeat Patient Location: E HR:84 bpm ECG Measurements Heart Rate 84 AXIS OR 194 P 18 QRSd 169 QRS 79 QT 441 T -8 QTc 523 Conclusion Sinus rhythm...normal P axis, V-rate 60- 99 Right bundle branch block...QRSd>120, terminal axis(90,270)
[2022-04-15 11:06] LABS: Troponin I 162 ng/L (<or=60)
[2022-04-15] MEDS: Albuterol 2.5 MG/3 ML INH SOLN VIAL UPD (11:17)
--- NOTE | 2022-04-15 11:31 | ED.PROG_ITS ---
Date of service: 04/15/22 Time of Service: 15:39 Medical Decision Making Signout received from Dr. Bhanu Mayorga. Work-up pending. Patient's troponins are trending up. No EKG changes. No chest pain. Patient will require dialysis. She is also has some mild congestive heart failure. Her COPD appears stable after treatment on her 2 L. I reached out to her with [facility] for admission. Unfortunately they do not have any beds. I reached out to [facility] at the patient's request 11:30 AM I received a call from the [facility] transfer center asking me to contact [facility] because her census at [facility] is high. 13:30 [place] d/[place] [facility] [place] [facility] awaiting bed placement Patient s/o Dr Samson - awaiting bed and transport Sign Out Sign Out Data: Sign Out Comment: Dialysis, cough, fever. Follow-up on labs and imaging and x- ray Last updated by Bhanu Mayorga DO at 04/15/22 07:27 Discharge Plan Disposition Specific Acute Inpt Facility: [facility] Condition: Good Discharge Details Chief Complaint: GenMedical Clinical Impression: Respiratory syncytial virus (RSV) infection, COPD (chronic obstructive pulmonary disease), CAD (coronary artery disease), Anemia Primary Care Provider: Chano Neves ED Provider: Bhanu Mayorga Home Meds and New Rx's Prescriptions: No Action ondansetron HCl 4 mg tablet 4 mg PO ONCE PRN (Reason: nausea and vomiting) Qty: 1 0RF Spiriva with HandiHaler 18 mcg capsule, w/inhalation device 1 cap inhalation DAILY Qty: 1 0RF Rx Instructions: puncture 1 cap using device; one dose = 2 inhalations from [place] albuterol sulfate 2.5 mg /3 mL (0.083 %) solution for nebulization 2.5 mg inhalation Q6H PRN (Reason: shortness of breath or wheezing) Qty: 3 0RF Rx Instructions: [place] codeine-guaifenesin 10-100 mg/5 mL liquid See Rx Instructions PO Q6H PRN (Reason: cough) Qty: 120 0RF Rx Instructions: one to two teaspoons PO every 6 hours PRN cough ; aspirin 81 MG tablet,chewable 81 mg PO DAILY albuterol sulfate [ProAir HFA] 8.5 GM HFA aerosol inhaler 2 puff Inhalation Q4H PRN atorvastatin 40 mg tablet 20 mg PO DAILY minoxidil 2.5 mg tablet 5 mg PO QHS codeine-guaifenesin 10-100 mg/5 mL liquid See Rx Instructions PO Q6H PRN (Reason: cough) Qty: 120 0RF Rx Instructions: one to two teaspoons PO every 6 hours PRN cough ; omeprazole 40 mg Capsule,Delayed Release(Dr/Ec) 40 mg PO BID meclizine 12.5 mg Tablet 12.5 mg PO PRN PRN (DME) Aerochamber MV Spacer MISCELLANEOUS ipratropium-albuterol 0.5 mg-3 mg(2.5 mg base)/3 mL solution for nebulization 3 ml inhalation Q4H PRNQty: 180 0RF sucralfate 1 gram tablet 1 g PO DAILY Label Comments: TAKE 1 TABLET BY MOUTH FOUR TIMES DAILY BEFORE MEALS AND AT BEDTIME loperamide 2 mg Capsule 2 mg PO PRN PRN diphenhydramine HCl 25 mg Tablet 25 mg PO PRN PRN calcitriol 1 mcg/mL Solution 1 mcg
[2022-04-15] MEDS: Ibuprofen 400 MG TAB PO (11:45)
--- NOTE | 2022-04-15 14:29 | NUR.NOTE ---
low sodium meal provided Nursing Note:
--- NOTE | 2022-04-15 17:29 | NUR.NOTE ---
[place] [facility] [place]:
== END 2022-04-15 18:53 ==
PROVIDERS: Student in an Organized Health Care Education/Training Program; Emergency Provider Emergency Medicine; PCP Family Medicine
DX: I25.10 Atherosclerotic heart disease of native coronary artery without angina pectoris (principal); B97.4 Respiratory syncytial virus as the cause of diseases classified elsewhere; I12.0 Hypertensive chronic kidney disease with stage 5 chronic kidney disease or end stage renal disease; N18.6 End stage renal disease; E78.5 Hyperlipidemia, unspecified; J44.9 Chronic obstructive pulmonary disease, unspecified; D63.1 Anemia in chronic kidney disease; Z99.2 Dependence on renal dialysis; Z79.82 Long term (current) use of aspirin; Z20.822 Contact with and (suspected) exposure to COVID-19
CPT/HCPCS: 36415; 80053; 82805; 84145; 87040; 87637; 93005; 96374; 96375; 96376; 99284; 99285; 71045; 83605; 84484; 85025; 93010; J0131; J2405; J7613

== ENCOUNTER 2022-05-04 07:40 | Outpatient (REF) | payer OTHER, SELFPAY ==
[2022-05-04 07:55] LABS: HGB 9.1 g/dL (11.2-15.7)
== END 2022-05-04 07:41 | disposition home or self-care (01) ==
LOC: LBN 07:40
PROVIDERS: PCP Family Medicine; Visit Provider Internal Medicine Nephrology
DX: D64.9 Anemia, unspecified (principal)
CPT/HCPCS: 85018

== ENCOUNTER 2022-05-14 11:15 | Emergency (ER) | payer OTHER, SELFPAY ==
[2022-05-14] VITALS (30 sets, daily range): BP systolic 154–211; BP diastolic 76–97; PULSE 75–90; RESP 4–28; TEMP 37.1; O2SAT 91–100
--- NOTE | 2022-05-14 11:00 | RT.EKG_ITS ---
APPROVED REPORT Exam: Resting ECG Reason for Exam: SOB Patient Location: E HR:77 bpm ECG Measurements Heart Rate 77 AXIS MN 220 P 12 QRSd 155 QRS 73 QT 433 T 7 QTc 490 Conclusion Sinus rhythm...normal P axis, V-rate 60- 99 Prolonged MN interval...MN >210, V-rate 50- 90 Right bundle branch block...QRSd>120, terminal axis(90,270) sinus rhythm, normal axis, RBBB, largely unchanged from prior ecg
--- NOTE | 2022-05-14 11:15 | DI.RAD_ITS ---
Exam(s) XR PORTABLE CHEST AP EXAM: XR PORTABLE CHEST AP CLINICAL HISTORY: copd, sob, cough. TECHNIQUE: 2D digital imaging was performed. COMPARISON: CR XR PORTABLE CHEST AP from 04/13/2022 CR XR PORTABLE CHEST AP from 04/15/2022 FINDINGS: Single AP portable view. Again noted sternotomy and 2 prosthetic cardiac valves as well as wide bore right supra clavicular ca theter with distal tip in the lower right atrium. Cardiomegaly again noted. Mediastinum not widened. Pulmonary venous hypertension pattern. Small ri ght pleural effusion. More so than previous. No airspace pulmonary edema. IMPRESSION: Pulmonary venous hypertension pattern without confluent airspace pulmonary edema. Small right pleura l effusion evident, more so than previous. DATA REPOSITORY: RADIATION DOSE DELIVERED:
[2022-05-14] MEDS: Albuterol/Ipratropium 3 ML UPD VIAL UPD (11:27)
--- NOTE | 2022-05-14 11:30 | ED.GENADUL_ITS ---
Discharge Plan Disposition Patient Disposition: Home Condition: Improving Discharge Details Chief Complaint: RespSymp Clinical Impression: COPD (chronic obstructive pulmonary disease) Primary Care Provider: Chano Neves ED Provider: Best Daniels Home Meds and New Rx's Prescriptions: No Action ondansetron HCl 4 mg tablet 4 mg PO ONCE PRN (Reason: nausea and vomiting) Qty: 1 0RF Spiriva with HandiHaler 18 mcg capsule, w/inhalation device 1 cap inhalation DAILY Qty: 1 0RF Rx Instructions: puncture 1 cap using device; one dose = 2 inhalations from [facility] albuterol sulfate 2.5 mg /3 mL (0.083 %) solution for nebulization 2.5 mg inhalation Q6H PRN (Reason: shortness of breath or wheezing) Qty: 3 0RF Rx Instructions: [facility] codeine-guaifenesin 10-100 mg/5 mL liquid See Rx Instructions PO Q6H PRN (Reason: cough) Qty: 120 0RF Rx Instructions: one to two teaspoons PO every 6 hours PRN cough ; B complex-vitamin C-folic acid 0.8 mg tablet 1 tab PO DAILY sevelamer carbonate 800 mg tablet 400 mg PO TID Rx Instructions: must administer with a meal/food aspirin 81 MG tablet,chewable 81 mg PO DAILY albuterol sulfate [ProAir HFA] 8.5 GM HFA aerosol inhaler 2 puff Inhalation Q4H PRN atorvastatin 40 mg tablet 20 mg PO DAILY minoxidil 2.5 mg tablet 5 mg PO QHS codeine-guaifenesin 10-100 mg/5 mL liquid See Rx Instructions PO Q6H PRN (Reason: cough) Qty: 120 0RF Rx Instructions: one to two teaspoons PO every 6 hours PRN cough ; omeprazole 40 mg Capsule,Delayed Release(Dr/Ec) 40 mg PO BID meclizine 12.5 mg Tablet 12.5 mg PO PRN PRN (DME) Aerochamber MV Spacer MISCELLANEOUS ipratropium-albuterol 0.5 mg-3 mg(2.5 mg base)/3 mL solution for nebulization 3 ml inhalation Q4H PRNQty: 180 0RF sucralfate 1 gram tablet 1 g PO DAILY Patient Comments: TAKE 1 TABLET BY MOUTH FOUR TIMES DAILY BEFORE MEALS AND AT BEDTIME loperamide 2 mg Capsule 2 mg PO PRN PRN diphenhydramine HCl 25 mg Tablet 25 mg PO PRN PRN calcitriol 1 mcg/mL Solution 1 mcg intraperitoneal 1XD Discharge Instructions Instructions: COPD (Chronic Obstructive Pulmonary Disease) (ED) Additional Instructions: Please follow-up with your primary care physician. Medical Decision Making 56-year-old female history of COPD, end-stage renal disease on hemodialysis, presents with shortness of breath and cough baseline 2 L nasal cannula at home has increased her self to 3-4, saturating 98% on 3 to 4 L nasal cannula, no respiratory distress at this time mild wheezing left base greater than right, peripheral edema bilateral lower extremities to level of shins, nausea without vomiting abdomen soft nontender nondistended. Consider viral syndrome exacerbating COPD versus COPD exacerbation related to environmental exposure versus gastritis versus less likely diverticulitis bowel obstruction colitis or appendicitis, trial of nebs dexamethasone famotidine basic labs chest x-ray viral screening. Disposition pending results 13: 45 patient resting comfortably no acute distress feeling much better after medications. No vomiting. No respiratory distress. Saturating 97% on nasal cannula. HPI General Date/Time Provider Initiated Documentation: 05/14/22 11:23 . HPI Narrative: 56-year-old female history of COPD end-stage renal disease on hemodialysis last dialyzed yesterday presents with shortness of breath and nausea and vomiting. He is on approximately 2 L nasal cannula oxygen at home. Chronic stomach issues including gastric ulcer and past diverticulitis. Endorses that her discomfort feels different than diverticulitis more of a nauseous sensation Related Data Home Medications Medication Instructions Recorded Confirmed aspirin 81 mg chewable tablet 81 mg PO DAILY 05/24/16 05/14/22 albuterol sulfate 90 mcg/actuation 2 puff inhalation Q4H PRN 07/26/17 05/14/22 aerosol inhaler (ProAir HFA) inhalational spacing device 01/26/19 05/14/22 (Aerochamber MV spacer) meclizine 12.5 mg tablet 12.5 mg PO PRN PRN 03/18/19 05/14/22 omeprazole 40 mg capsule,delayed 40 mg PO BID 03/18/19 05/14/22 release atorvastatin 40 mg tablet 20 mg PO DAILY 10/24/19 05/14/22 albuterol sulfate 2.5 mg/3 mL 2.5 mg (3 mL) inhalation Q6H PRN 02/16/21 05/14/22 (0.083 %) solution for nebulization shortness of breath or wheezing #3 mL tiotropium bromide 18 mcg capsule 1 cap inhalation DAILY #1 inh 02/16/21 05/14/22 with inhalation device (Spiriva with HandiHaler) minoxidil 2.5 mg tablet 5 mg PO QHS 01/21/22 05/14/22 ondansetron HCl 4 mg tablet 4 mg PO ONCE PRN nausea and 02/08/22 05/14/22 vomiting #1 tab ipratropium 0.5 mg-albuterol 3 mg 3 ml inhalation Q4H PRN #180 mL 03/01/22 05/14/22 (2.5 mg base)/3 mL nebulization soln codeine 10 mg-guaifenesin 100 mg/5 See Rx Instructions PO Q6H PRN 03/03/22 05/14/22 mL oral liquid cough #120 mL calcitriol 1 mcg/mL intravenous 1 mcg intraperitoneal 1XD 04/13/22 05/14/22 solution diphenhydramine HCl 25 mg tablet 25 mg PO PRN PRN 04/13/22 05/14/22 loperamide 2 mg capsule 2 mg PO PRN PRN 04/13/22 05/14/22 sucralfate 1 gram tablet 1 g PO DAILY 04/13/22 05/14/22 codeine 10 mg-guaifenesin 100 mg/5 See Rx Instructions PO Q6H PRN 04/14/22 05/14/22 mL oral liquid cough #120 mL sevelamer carbonate 800 mg tablet 400 mg PO TID 04/19/22 05/14/22 vitamin B complex-vitamin C-folic 1 tab PO DAILY 04/19/22 05/14/22 acid 0.8 mg tablet Previous Rx's Medication Instructions Recorded albuterol sulfate 2.5 mg/3 mL 2.5 mg (3 mL) inhalation Q6H PRN 02/16/21 (0.083 %) solution for nebulization shortness of breath or wheezing #3 mL tiotropium bromide 18 mcg capsule 1 cap inhalation DAILY #1 inh 02/16/21 with inhalation device (Spiriva with HandiHaler) ondansetron HCl 4 mg tablet 4 mg PO ONCE PRN nausea and 02/08/22 vomiting #1 tab ipratropium 0.5 mg-albuterol 3 mg 3 ml inhalation Q4H PRN #180 mL 03/01/22 (2.5 mg base)/3 mL nebulization soln codeine 10 mg-guaifenesin 100 mg/5 See Rx Instructions PO Q6H PRN 03/03/22 mL oral liquid cough #120 mL codeine 10 mg-guaifenesin 100 mg/5 See Rx Instructions PO Q6H PRN 04/14/22 mL oral liquid cough #120 mL Allergies Allergy/AdvReac Type Severity Reaction Status Date / Time cephalexin monohydrate Allergy Severe trouble Verified 05/14/22 11:18 [From Keflex] breathing colchicine Allergy Verified 05/14/22 11:18 allopurinol AdvReac Intermediate gout Verified 05/14/22 11:18 breakout erythromycin base AdvReac Intermediate gout Verified 05/14/22 11:18 breakout acetaminophen [From Percocet] AdvReac Unverified 05/14/22 11:18 oxycodone [From Percocet] AdvReac Unverified 05/14/22 11:18 General Stated Complaint: RespSymp AWA: 3 Review of Systems Narrative: Review of Systems Constitutional: negative Eyes: negative ENT: negative Cardiovascular: negative Respiratory: Shortness of breath Gastrointestinal: Nausea, vomiting : negative Musculoskeletal: negative Skin: negative Neurologic: negative Psych: negative PFSH All Active Problems (Updated 05/14/22 @ 13:46 by Best Daniels MD) Respiratory syncytial virus (RSV) infection (Acute) COPD (chronic obstructive pulmonary disease) (Chronic) CAD (coronary artery disease) (Chronic) Anemia (Chronic) Fever (Acute) Open abdominal wall wound (Acute) ESRD on dialysis (Chronic) On hemodialysis currently using central catheter-nephrology at [facility] receives dialysis at [facility] region Depression (Acute 08/28/14) Gallstones (Acute) COPD (chronic obstructive pulmonary disease) (Chronic) Pulmonary at [facility] Central venous catheter in place (Acute ~10/29/19) [facility] [place] [facility] [place] right subclavian-dialysis Tricuspid regurgitation (Acute) s/p tricuspid valve replacement 02/2020, bovine Cirrhosis, alcoholic (Acute) POLST (Physician Orders for Life-Sustaining Treatment) (Acute) COLST completed 02/13/2020, DNR/DNI. Hemorrhage of arteriovenous fistula (Acute) Ventral hernia (Acute) Hypertension (Chronic) Aortic valve replaced (Acute) Bovine-with [facility] Personal history of nicotine dependence (Acute) 02/2021 Tobacco abuse (Acute) Lung nodule, solitary (Acute) Hemoptysis (Acute) Medical History Axillary lymphadenopathy Bleeding hemorrhoids (01/08/13) rectal bleeding (colonoscopy [facility] [place]/01/13 internal hemorrhoids and diverticuli) Cannabis dependence CVD (cardiovascular disease) Cyst of ovary (08/20/12) Depression (09/14/12) Diverticulitis of large intestine without perforation or abscess with bleeding Essential hypertension (01/16/13) severe and labile Gastroesophageal reflux disease with esophagitis (02/03/15) Hyperlipidemia Hyperparathyroidism, unspecified (02/09/11) 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[facility] [place] [facility] [place] Macular degeneration of left eye (~10/17/19) [facility] [place] Nail dystrophy Recurrent urinary tract infection Right heart failure Secondary hyperparathyroidism (of renal origin) Umbilical hernia repaired 1995,1997,2001,2003 Upper GI bleed (05/17/14) 05/15/14 [facility] [place] [facility] [place] EGD, HH, esophagitis, gastric ulcer and duodenitis Surgical History Abdominal hysterectomy (~2006) s/p hyst, but cervix still present and needs yearly PAP due to transplant H/O aortic valve replacement History of kidney transplant Repair of umbilical hernia 1995,1997,2001,2003 TRANSPLANT, KIDNEY (~1997) LEFT Family History Mother Essential hypertension Personal history of malignant neoplasm KIDNEY Heart disease Pulmonary emphysema Father Personal history of malignant neoplasm Pulmonary emphysema Brother Hyperlipidemia Brother Hyperlipidemia Brother No problems noted. Social History Smoking/Tobacco Use Status: Current every day Tobacco Type: cigarettes Smoking risk assessment performed?: Yes Alcohol Intake: former Drug use: Daily Substance use type: marijuana Details: mostly edibles Current gender identity: female Do you feel safe at home: Yes Do you feel safe in your relationship?: Yes Exam Narrative Exam Narrative: Physical Examination General: alert, awake, cooperative, mildly uncomfortable HEENT: normocephalic, atraumatic; PERRL, EOM intact, conjunctiva normal; no nasal discharge; moist mucous membranes, oral and pharyngeal mucosa normal, tolerating secretions Neck: supple, trachea midline; full ROM Chest: normal to inspection Respiratory: normal respiratory effort, speaking in full sentences, wheezing left base greater than right Cardiac: regular rate, regular rhythm, S1S2 intact, no murmurs rubs or gallops GI: abdomen soft, non-tender, non-distended; no palpable mass or hepatosplenomegaly Skin: Dry skin Neuro: AAOx3, normal speech, moving all extremities Extremities: Pitting edema to bilateral shins Psych: Appropriate mood and affect Course Vital Signs Vital signs: Vital Signs Temperature 37.1 C 05/14/22 11:20 Pulse 90 05/14/22 11:20 Pulse Oximetry 98 05/14/22 11:20 Temperature 37.1 C 05/14/22 11:20 Temperature Source Oral 05/14/22 11:20 Pulse 90 05/14/22 11:20 Respiratory Effort Normal, Non-Labored 05/14/22 11:16 Blood Pressure 191/93 H 05/14/22 11:23 Pulse Oximetry 93 05/14/22 11:23 Oxygen Delivery Method Room Air 05/14/22 11:23 Oxygen Flow Rate 0 05/14/22 11:23
[2022-05-14] MEDS: Dexamethasone 10 MG/ML VIAL IVP (11:32)
[2022-05-14] MEDS: Ondansetron 4 MG/2 ML VIAL IVP (11:33)
[2022-05-14] MEDS: Famotidine 20 MG/2 ML VIAL IVP (11:34)
[2022-05-14 11:35] LABS: Abs Immature Grans 0.02 10^3/uL (0.0-0.06); Absolute Basophil Count 0.04 10^3/uL (0.0-0.2); Absolute Eosinophil Count 0.67 10^3/uL (0.0-0.7); Absolute Lymphocyte Count 0.55 10^3/uL (1.2-3.4); Absolute Monocyte Count 0.37 10^3/uL (0.1-0.8); Absolute Neutrophil Count 1.89 10^3/uL (1.2-6.7); Basophils % 1.1; Eosinophils % 18.9; HCT 31.9 % (36.0-46.0); HGB 9.5 g/dL (11.2-15.7); Immature Grans % 0.6; Lymphocytes % 15.5; MCH 28.9 pg (27.0-33.0); MCHC 29.8 % (32.0-36.0); MCV 97 fL (80-95); MPV 11.6 fL (8.0-11.0); Monocytes % 10.5; Neutrophils % 53.4; Platelet Count 125 10^3/uL (130-400); RBC 3.29 10^6/uL (3.93-5.22); RDW 15.7 % (11.7-14.6); RDW-SD 56.2 fL; WBC 3.54 10^3/uL (4.4-10.8)
[2022-05-14 11:48] LABS: ALT 26 U/L (14-59); AST 33 U/L (15-37); Albumin 3.8 g/dL (3.4-5.0); Alkaline Phosphatase 268 U/L (46-116); Anion Gap 6.9 mmol/L (3-11); BUN 21 mg/dL (7-18); Bilirubin, Total 0.7 mg/dL (0.2-1.0); CO2 33.1 mmol/L (21.0-32.0); Calcium 9.4 mg/dL (8.5-10.1); Chloride 100 mmol/L (98-107); Estimated GFR 9.94 (mL/min/1.73m2); Glucose 88 mg/dL (74-106); Lipase 24 U/L (16-77); Potassium 4.6 mmol/L (3.5-5.1); Sodium 140 mmol/L (136-145); Total Protein 7.2 g/dL (6.4-8.2)
[2022-05-14 11:50] LABS: CREATININE 4.8 mg/dL (0.55-1.02)
[2022-05-14 12:36] LABS: COVID-19 PCR Negative (Negative); Influenza A PCR Negative (Negative); Influenza B PCR Negative (Negative); RSV PCR Negative (Negative)
[2022-05-14 12:38] LABS: Source Nasopharynx
--- NOTE | 2022-05-14 13:31 | DI.VRAD_ITS ---
PROCEDURE INFORMATION: Exam: XR Chest Exam date and time: 05/14/2022 12:47 PM Age: 56 years old Clinical indication: Cough TECHNIQUE: Imaging protocol: Radiologic exam of the chest. Views: 1 view. COMPARISON: CR XR PORTABLE CHEST AP 05/12/2022 07:36 FINDINGS: Tubes, catheters and devices: Right central line in place with the tip in the right atrium. Lungs: Increased perihilar markings and interstitial markings with peribronchial thickening consistent with vascular congestion. Persistent increased perihilar markings and increased markings in the right mid lung and right base. Persistent increased markings in the left retrocardiac region. Pleural spaces: Blunted right lateral costophrenic angle. Heart/Mediastinum: See Bones/joints finding. Bones/joints: Sternotomy wires and prosthetic valves are in place stable compared with prior study. IMPRESSION: Cardiomegaly. Pulmonary vascular congestion. Right pleural effusion. Bibasilar densities consistent with atelectasis or developing infiltrate. Dictated and Authenticated by: Mel Vallejo MD. Ordering:KENNETH Jewell MD
== END 2022-05-14 14:15 | disposition home or self-care (01) ==
PROVIDERS: Emergency Provider Emergency Medicine; PCP Family Medicine
DX: J44.9 Chronic obstructive pulmonary disease, unspecified (principal); I13.2 Hypertensive heart and chronic kidney disease with heart failure and with stage 5 chronic kidney disease, or end stage renal disease; I50.9 Heart failure, unspecified; N18.6 End stage renal disease; R60.0 Localized edema; F17.210 Nicotine dependence, cigarettes, uncomplicated; Z95.4 Presence of other heart-valve replacement; Z99.2 Dependence on renal dialysis; Z79.82 Long term (current) use of aspirin; Z86.73 Personal history of transient ischemic attack (TIA), and cerebral infarction without residual deficits; Z20.822 Contact with and (suspected) exposure to COVID-19
CPT/HCPCS: 80053; 83690; 87637; 93005; 94640; 96374; 96375; 99284; 99285; 71045; 85025; 93010; J1100; J2405; J7620

== ENCOUNTER 2022-05-19 15:18 | Emergency (ER) | payer OTHER, SELFPAY ==
[2022-05-19] VITALS (8 sets, daily range): BP systolic 116–205; BP diastolic 61–98; PULSE 83–101; RESP 18–28; TEMP 37; O2SAT 95–99
--- NOTE | 2022-05-19 15:00 | RT.EKG_ITS ---
APPROVED REPORT Exam: Resting ECG Reason for Exam: sob Patient Location: E HR:99 bpm ECG Measurements Heart Rate 99 AXIS KS 197 P 8 QRSd 154 QRS 119 QT 394 T -12 QTc 505 Conclusion Sinus rhythm...normal P axis, V-rate 60- 99 Borderline prolonged KS interval...KS >197, V-rate 91-120 Right bundle branch block...QRSd>120, terminal axis(90,270)
--- NOTE | 2022-05-19 15:45 | DI.RAD_ITS ---
Exam(s) XR PORTABLE CHEST AP EXAM: XR PORTABLE CHEST AP CLINICAL HISTORY: cough TECHNIQUE: 2D digital imaging was performed. COMPARISON: CR XR PORTABLE CHEST AP from 04/13/2022 CR XR PORTABLE CHEST AP from 04/15/2022 CR,XR XR PORTABLE CHEST AP from 05/14/2022 FINDINGS: Heart is enlarged, unchanged. Two prosthetic valves again noted. Sternal wires and central venous c atheter present. Mild blunting at the costophrenic angles consistent with small effusions. No focal infiltrates or evidence of overt pulmonary edema. IMPRESSION: Small tiny bilateral pleural effusions. Cardiomegaly. DATA REPOSITORY: RADIATION DOSE DELIVERED:
--- NOTE | 2022-05-19 15:53 | ED.GENADUL_ITS ---
Discharge Plan Disposition Patient Disposition: Home Condition: Improving Discharge Details Clinical Impression: Acute exacerbation of chronic obstructive pulmonary disease Primary Care Provider: Chano Neves ED Provider: Benjy Espinoza Home Meds and New Rx's Prescriptions: New doxycycline hyclate 100 mg capsule 100 mg PO BID Qty: 10 0RF benzonatate 100 mg capsule 100 mg PO TID PRN (Reason: cough) Qty: 20 0RF prednisone 20 mg tablet 40 mg PO DAILY Qty: 6 0RF Continued ondansetron HCl 4 mg tablet 4 mg PO ONCE PRN (Reason: nausea and vomiting) Qty: 1 0RF Spiriva with HandiHaler 18 mcg capsule, w/inhalation device 1 cap inhalation DAILY Qty: 1 0RF Rx Instructions: puncture 1 cap using device; one dose = 2 inhalations from [facility] albuterol sulfate 2.5 mg /3 mL (0.083 %) solution for nebulization 2.5 mg inhalation Q6H PRN (Reason: shortness of breath or wheezing) Qty: 3 0RF Rx Instructions: [facility] codeine-guaifenesin 10-100 mg/5 mL liquid See Rx Instructions PO Q6H PRN (Reason: cough) Qty: 120 0RF Rx Instructions: one to two teaspoons PO every 6 hours PRN cough ; B complex-vitamin C-folic acid 0.8 mg tablet 1 tab PO DAILY sevelamer carbonate 800 mg tablet 400 mg PO TID Rx Instructions: must administer with a meal/food aspirin 81 MG tablet,chewable 81 mg PO DAILY albuterol sulfate [ProAir HFA] 8.5 GM HFA aerosol inhaler 2 puff Inhalation Q4H PRN atorvastatin 40 mg tablet 20 mg PO DAILY minoxidil 2.5 mg tablet 5 mg PO QHS codeine-guaifenesin 10-100 mg/5 mL liquid See Rx Instructions PO Q6H PRN (Reason: cough) Qty: 120 0RF Rx Instructions: one to two teaspoons PO every 6 hours PRN cough ; omeprazole 40 mg Capsule,Delayed Release(Dr/Ec) 40 mg PO BID meclizine 12.5 mg Tablet 12.5 mg PO PRN PRN (DME) Aerochamber MV Spacer MISCELLANEOUS ipratropium-albuterol 0.5 mg-3 mg(2.5 mg base)/3 mL solution for nebulization 3 ml inhalation Q4H PRNQty: 180 0RF sucralfate 1 gram tablet 1 g PO DAILY Patient Comments: TAKE 1 TABLET BY MOUTH FOUR TIMES DAILY BEFORE MEALS AND AT BEDTIME loperamide 2 mg Capsule 2 mg PO PRN PRN diphenhydramine HCl 25 mg Tablet 25 mg PO PRN PRN calcitriol 1 mcg/mL Solution 1 mcg intraperitoneal 1XD Discharge Instructions Instructions: COPD (Chronic Obstructive Pulmonary Disease) (ED) Additional Instructions: Please continue to take your medication as prescribed and monitor your symptoms. Return to the emergency department for any new or significant worsening of your condition otherwise follow-up with your primary care provider to ensure that you are improving next week or for further medication changes as needed. Referrals: Chano Neves MD [Primary Care Provider] - 1 week Medical Decision Making Patient presenting to the emergency department for chief complaint of worsening cough. Patient states she is had symptoms for approximately 1 week but worse alyx since Monday. Patient was seen on Monday and diagnosed with COPD exacerbation and given steroids which did somewhat help but now her symptoms seem to have worsened. She states that she has been getting her standard dialysis and no worsening of fluid and was able to complete her full dialysis yesterday. Patient does have history of COPD, ESRD, cardiovascular disease, right-sided CHF. Physical exam shows acute on chronic respiratory symptoms with patient ill in appearance worse than baseline, nontoxic stable vital signs with mild tachycardia but within normal range, no hypotension, patient on 2 L of oxygen but satting 94 to 95%, does have mild crackles in left lower lung otherwise diminished to clear lung sounds throughout. Exam is otherwise nondiagnostic. We will plan on checking labs EKG and chest x-ray along with blood cultures. Differential diagnosis to include continued COPD exacerbation, pneumonia, viral illness, CHF. Less likely patient has ACS, patient denies any GI complaints. Pending results we will give patient 2 DuoNebs, 125 Solu-Medrol, and Tessalon Perle. Please see physician interpretation for full interpretation of EKG but patient is in sinus rhythm, rate of 99, borderline prolonged UT was noted with right bundle branch block. Patient has ongoing but stable anemia with no significant or precipitous drop, no leukocytosis or shift noted, patient's creatinine was 4.8 and BUN of 26 but nonworrisome given end-stage renal disease. Troponin was negative BNP is greater than 35,000 which is at patient's baseline. Patient negative for COVID flu and RSV. Reviewed chest x-ray along with radiologist interpretation that shows no acute cardiopulmonary findings. Patient reassessed after 2 DuoNeb's and did state some improvement of symptoms but will give additional DuoNeb. Reassessed patient patient states significant improvement and that she is breathing better. And spite of overall negative work-up and high suspicion of acute COPD exacerbation I will place patient on 3 additional days of 40 mg of prednisone, 1 week of antibiotic given high risk of development of pneumonia, and Tessalon Perles. After discussion of diagnosis and plan of care patient has no further needs, questions, or concerns and states clear understanding to return to the emergency department for any worsening symptoms. This documentation was generated using [employer] system, please disregard any oddities of phrase or misspellings. Medical Records Medical records reviewed: Yes I reviewed the patient's medical records. Medical records narrative: Reviewed recent visit to the emergency department along with work-up and treatment plan Imaging Data Radiologic Study: Imaging: X-Ray Radiologist's impression: Exam(s) XR PORTABLE CHEST AP EXAM: XR PORTABLE CHEST AP CLINICAL HISTORY: cough TECHNIQUE: 2D digital imaging was performed. COMPARISON: CR XR PORTABLE CHEST AP from 04/13/2022 CR XR PORTABLE CHEST AP from 04/15/2022 CR,XR XR PORTABLE CHEST AP from 05/14/2022 FINDINGS: Heart is enlarged, unchanged. Two prosthetic valves again noted. Sternal wires and central venous catheter present. Mild blunting at the costophrenic angles consistent with small effusions. No focal infiltrates or evidence of overt pulmonary edema. IMPRESSION: Small tiny bilateral pleural effusions. Cardiomegaly. Lab Data Lab results reviewed: Yes I reviewed the patient's lab results. HPI General Mode of arrival: EMS . Date/Time Provider Initiated Documentation: 05/19/22 15:43 . Limitations to Documentation: no limitations . Information obtained by: patient, RN notes reviewed and old records reviewed . History of Present Illness 56 year old F presents to the emergency department with the chief complaint of Worsening cough and shortness of breath, described as moderate and similar to prior episodes, with intensity rated at 5. Quality is described as aching, and is localized to the chest. Patient started experiencing this week(s) (1) and it has been constant. No relieving factors improve symptom(s), No exacerbating factors reported . Patient notes no other symptoms.. Patient did receive the following treatments prior to arrival, other (Inhaler use this morning) Related Data Home Medications Medication Instructions Recorded Confirmed aspirin 81 mg chewable tablet 81 mg PO DAILY 05/24/16 05/17/22 albuterol sulfate 90 mcg/actuation 2 puff inhalation Q4H PRN 07/26/17 05/17/22 aerosol inhaler (ProAir HFA) inhalational spacing device 01/26/19 05/17/22 (Aerochamber MV spacer) meclizine 12.5 mg tablet 12.5 mg PO PRN PRN 03/18/19 05/17/22 omeprazole 40 mg capsule,delayed 40 mg PO BID 03/18/19 05/17/22 release atorvastatin 40 mg tablet 20 mg PO DAILY 10/24/19 05/17/22 albuterol sulfate 2.5 mg/3 mL 2.5 mg (3 mL) inhalation Q6H PRN 02/16/21 05/17/22 (0.083 %) solution for nebulization shortness of breath or wheezing #3 mL tiotropium bromide 18 mcg capsule 1 cap inhalation DAILY #1 inh 02/16/21 05/17/22 with inhalation device (Spiriva with HandiHaler) minoxidil 2.5 mg tablet 5 mg PO QHS 01/21/22 05/17/22 ondansetron HCl 4 mg tablet 4 mg PO ONCE PRN nausea and 02/08/22 05/17/22 vomiting #1 tab ipratropium 0.5 mg-albuterol 3 mg 3 ml inhalation Q4H PRN #180 mL 03/01/22 05/17/22 (2.5 mg base)/3 mL nebulization soln codeine 10 mg-guaifenesin 100 mg/5 See Rx Instructions PO Q6H PRN 03/03/22 7 mL oral liquid cough #120 mL calcitriol 1 mcg/mL intravenous 1 mcg intraperitoneal 1XD 04/13/22 05/17/22 solution diphenhydramine HCl 25 mg tablet 25 mg PO PRN PRN 04/13/22 05/17/22 loperamide 2 mg capsule 2 mg PO PRN PRN 04/13/22 05/17/22 sucralfate 1 gram tablet 1 g PO DAILY 04/13/22 05/17/22 codeine 10 mg-guaifenesin 100 mg/5 See Rx Instructions PO Q6H PRN 04/14/22 05/17/22 mL oral liquid cough #120 mL sevelamer carbonate 800 mg tablet 400 mg PO TID 04/19/22 05/17/22 vitamin B complex-vitamin C-folic 1 tab PO DAILY 04/19/22 05/17/22 acid 0.8 mg tablet benzonatate 100 mg capsule 100 mg PO TID PRN cough #20 caps 05/19/22 doxycycline hyclate 100 mg capsule 100 mg PO BID #10 caps 05/19/22 prednisone 20 mg tablet 40 mg PO DAILY #6 tabs 05/19/22 Previous Rx's Medication Instructions Recorded albuterol sulfate 2.5 mg/3 mL 2.5 mg (3 mL) inhalation Q6H PRN 02/16/21 (0.083 %) solution for nebulization shortness of breath or wheezing #3 mL tiotropium bromide 18 mcg capsule 1 cap inhalation DAILY #1 inh 02/16/21 with inhalation device (Spiriva with HandiHaler) ondansetron HCl 4 mg tablet 4 mg PO ONCE PRN nausea and 02/08/22 vomiting #1 tab ipratropium 0.5 mg-albuterol 3 mg 3 ml inhalation Q4H PRN #180 mL 03/01/22 (2.5 mg base)/3 mL nebulization soln codeine 10 mg-guaifenesin 100 mg/5 See Rx Instructions PO Q6H PRN 03/03/22 mL oral liquid cough #120 mL codeine 10 mg-guaifenesin 100 mg/5 See Rx Instructions PO Q6H PRN 04/14/22 mL oral liquid cough #120 mL benzonatate 100 mg capsule 100 mg PO TID PRN cough #20 caps 05/19/22 doxycycline hyclate 100 mg capsule 100 mg PO BID #10 caps 05/19/22 prednisone 20 mg tablet 40 mg PO DAILY #6 tabs 05/19/22 Allergies Allergy/AdvReac Type Severity Reaction Status Date / Time cephalexin monohydrate Allergy Severe trouble Verified 05/17/22 11:47 [From Keflex] breathing colchicine Allergy Verified 05/17/22 11:47 allopurinol AdvReac Intermediate gout Verified 05/17/22 11:47 breakout erythromycin base AdvReac Intermediate gout Verified 05/17/22 11:47 breakout acetaminophen [From Percocet] AdvReac Unverified 05/17/22 11:47 oxycodone [From Percocet] AdvReac Unverified 05/17/22 11:47 General Stated Complaint: RespSymp AWA: 3 Review of Systems Constitutional Constitutional: Denies chills and Denies fever(s) Cardiovascular Cardiovascular: Reports chest pain (Secondary to coughing), Denies syncope, Denies pedal edema (At baseline) and Reports dyspnea Respiratory Respiratory: Reports as per HPI, Reports chest congestion, Reports cough, Denies hemoptysis, Reports excessive phlegm production, Reports pain with cough and Reports dyspnea Gastrointestinal Gastrointestinal: Denies abdominal pain Neurologic Neurologic: Denies syncope PFSH All Active Problems (Updated 05/19/22 @ 18:14 by Benjy Espinoza NP) Acute exacerbation of chronic obstructive pulmonary disease (Acute) Fever (Acute) Open abdominal wall wound (Acute) ESRD on dialysis (Chronic) On hemodialysis currently using central catheter-nephrology at [facility] receives dialysis at [facility] Depression (Acute 08/28/14) Gallstones (Acute) COPD (chronic obstructive pulmonary disease) (Chronic) Pulmonary at [facility] Central venous catheter in place (Acute ~10/29/19) [facility] [place], right subclavian-dialysis Tricuspid regurgitation (Acute) s/p tricuspid valve replacement 02/2020, bovine Cirrhosis, alcoholic (Acute) POLST (Physician Orders for Life-Sustaining Treatment) (Acute) COLST completed 02/13/2020, DNR/DNI. Hemorrhage of arteriovenous fistula (Acute) Ventral hernia (Acute) Hypertension (Chronic) Aortic valve replaced (Acute) Bovine-with [facility] Personal history of nicotine dependence (Acute) 02/2021 Tobacco abuse (Acute) Lung nodule, solitary (Acute) Hemoptysis (Acute) Medical History Axillary lymphadenopathy Bleeding hemorrhoids (01/08/13) rectal bleeding (colonoscopy [facility] [place] 01/01/13 internal hemorrhoids and diverticuli) Cannabis dependence CVD (cardiovascular disease) Cyst of ovary (08/20/12) Depression (09/14/12) Diverticulitis of large intestine without perforation or abscess with bleeding Essential hypertension (01/16/13) severe and labile Gastroesophageal reflux disease with esophagitis (02/03/15) Hyperlipidemia Hyperparathyroidism, unspecified (02/09/11) 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[facility] [place] Macular degeneration of left eye (~10/17/19) [facility] Nail dystrophy Recurrent urinary tract infection Right heart failure Secondary hyperparathyroidism (of renal origin) Umbilical hernia repaired 1995,1997,2001,2003 Upper GI bleed (05/17/14) 05/15/14 [facility] [place] EGD, HH, esophagitis, gastric ulcer and duodenitis Surgical History Abdominal hysterectomy (~2006) s/p hyst, but cervix still present and needs yearly PAP due to transplant H/O aortic valve replacement History of kidney transplant Repair of umbilical hernia 1995,1997,2001,2003 TRANSPLANT, KIDNEY (~1997) LEFT Family History Mother Essential hypertension Personal history of malignant neoplasm KIDNEY Heart disease Pulmonary emphysema Father Personal history of malignant neoplasm Pulmonary emphysema Brother Hyperlipidemia Brother Hyperlipidemia Brother No problems noted. Social History Smoking/Tobacco Use Status: Current every day Tobacco Type: cigarettes Smoking risk assessment performed?: Yes Alcohol Intake: former Drug use: Daily Substance use type: marijuana Details: mostly edibles Current gender identity: female Do you feel safe at home: Yes Do you feel safe in your relationship?: Yes Exam Const General: cooperative, not diaphoretic and ill appearing acutely and chronically Orientation: alert, awake and oriented x3 Limitations: mental status not altered Neck Neck: normal visual inspection, full ROM and no anterior neck swelling Resp Effort & Inspection: normal respiratory effort, able to speak in complete sentences and cough (wet) Quality of cough: actively coughing Auscultation: crackles on the left in the lower lung knox and diminished lung sounds bilaterally in the lower lung knox Cardio Jugular venous pressure: no JVD Palpation: normal PMI Rate: regular rate Rhythm: regular rhythm Heart Sounds: S1 normal and S2 normal Neuro General: patient alert, patient awake, patient oriented x3, tone normal and moves all extremities Course Vital Signs Vital signs: Vital Signs Temperature 37.0 C 05/19/22 15:37 Pulse 100 H 05/19/22 15:37 Respiratory Rate 28 H 05/19/22 15:37 Blood Pressure 116/70 05/19/22 15:37 Pulse Oximetry 96 05/19/22 15:37 Temperature 37.0 C 05/19/22 15:37 Temperature Source Oral 05/19/22 15:37 Pulse 100 H 05/19/22 15:37 Respiratory Rate 28 H 05/19/22 15:37 Respiratory Effort Short of Breath, Labored 05/19/22 15:41 Blood Pressure 116/70 05/19/22 15:37 Blood Pressure Position Supine 05/19/22 15:37 Pulse Oximetry 96 05/19/22 15:37 Oxygen Delivery Method Nasal Cannula 05/19/22 15:37 Oxygen Flow Rate 2 05/19/22 15:37 Pain Level 5 05/19/22 15:37
[2022-05-19] MEDS: methylPREDNISolone SUCC 125 MG VIAL IVP (16:09)
[2022-05-19] MEDS: Benzonatate 100 MG CAP PO (16:15)
[2022-05-19] MEDS: Albuterol/Ipratropium 3 ML UPD VIAL 6 ML UPD (16:15)
--- NOTE | 2022-05-19 16:25 | NUR.NOTE ---
Nursing Note: First set BC drawn from pt L arm and taken to lab. electronic calibration technician asked to get 2nd set of cx and agreed.
[2022-05-19 16:27] LABS: Abs Immature Grans 0.01 10^3/uL (0.0-0.06); Absolute Basophil Count 0.06 10^3/uL (0.0-0.2); Absolute Lymphocyte Count 0.54 10^3/uL (1.2-3.4); Absolute Monocyte Count 0.46 10^3/uL (0.1-0.8); Absolute Neutrophil Count 2.84 10^3/uL (1.2-6.7); Basophils % 1.4; Eosinophils % 11.3; HCT 32.9 % (36.0-46.0); HGB 10.1 g/dL (11.2-15.7); Immature Grans % 0.2; Lymphocytes % 12.2; MCHC 30.7 % (32.0-36.0); MCV 95 fL (80-95); MPV 11.9 fL (8.0-11.0); Monocytes % 10.4; Neutrophils % 64.5; Platelet Count 135 10^3/uL (130-400); RBC 3.48 10^6/uL (3.93-5.22); RDW 15.2 % (11.7-14.6); RDW-SD 52.8 fL; WBC 4.41 10^3/uL (4.4-10.8)
[2022-05-19 16:35] LABS: ALT 27 U/L (14-59); AST 30 U/L (15-37); Albumin 3.8 g/dL (3.4-5.0); Alkaline Phosphatase 227 U/L (46-116); Anion Gap 10.1 mmol/L (3-11); BUN 26 mg/dL (7-18); Bilirubin, Total 0.6 mg/dL (0.2-1.0); CO2 29.9 mmol/L (21.0-32.0); Calcium 9.3 mg/dL (8.5-10.1); Chloride 97 mmol/L (98-107); Estimated GFR 9.94 (mL/min/1.73m2); Glucose 86 mg/dL (74-106); Potassium 4.8 mmol/L (3.5-5.1); Sodium 137 mmol/L (136-145); Total Protein 7.2 g/dL (6.4-8.2)
[2022-05-19 16:36] LABS: CREATININE 4.8 mg/dL (0.55-1.02)
[2022-05-19 16:42] LABS: Troponin I < 50 ng/L (<or=60)
[2022-05-19 16:43] LABS: NT-proBNP > 35000 pg/mL (<300)
[2022-05-19] MEDS: Albuterol/Ipratropium 3 ML UPD VIAL UPD (16:51)
[2022-05-19 16:57] LABS: COVID-19 PCR Negative (Negative); Influenza A PCR Negative (Negative); Influenza B PCR Negative (Negative); RSV PCR Negative (Negative)
[2022-05-19 17:00] LABS: Source Nasopharynx
--- NOTE | 2022-05-19 17:00 | NUR.NOTE ---
Nursing Note: equipment operator/laborer at bedside for 2nd set BC
--- NOTE | 2022-05-19 18:26 | NUR.NOTE ---
Nursing Note: Faxed to PCP referral for COPD exacerbation, next week.
[2022-05-19] MEDS: Doxycycline Hyclate 100 MG CAP PO (18:30)
--- NOTE | 2022-05-21 12:34 | RESPIRATORY ---
RT called patient to follow-up on the Oxygen tank in which patient took home. RT was unable to speak to patient but left a voicemail concerning returning the tank to the ER.
== END 2022-05-19 18:44 | disposition home or self-care (01) ==
PROVIDERS: Emergency Provider Nurse Practitioner Family; PCP Family Medicine
DX: J44.1 Chronic obstructive pulmonary disease with (acute) exacerbation (principal); I13.2 Hypertensive heart and chronic kidney disease with heart failure and with stage 5 chronic kidney disease, or end stage renal disease; I50.9 Heart failure, unspecified; N18.6 End stage renal disease; F17.210 Nicotine dependence, cigarettes, uncomplicated; Z86.73 Personal history of transient ischemic attack (TIA), and cerebral infarction without residual deficits; Z95.4 Presence of other heart-valve replacement; Z94.0 Kidney transplant status; Z20.822 Contact with and (suspected) exposure to COVID-19
CPT/HCPCS: 80053; 87040; 87637; 93005; 94640; 96374; 99284; 71045; 83880; 84484; 85025; 93010; J2930; J7620

== ENCOUNTER → 2022-05-31 08:59 | Outpatient (BNVA) | payer OTHER, SELFPAY | PROVIDERS: PCP Family Medicine; Referring Provider Family Medicine; Visit Provider Surgery | DX: N18.6 End stage renal disease (principal); Z99.2 Dependence on renal dialysis; Z99.81 Dependence on supplemental oxygen; J44.9 Chronic obstructive pulmonary disease, unspecified | CPT/HCPCS: 99212; 99213 ==

== ENCOUNTER 2022-06-07 09:15 | Emergency (ER) | payer OTHER, SELFPAY ==
--- NOTE | 2022-06-07 09:15 | RT.EKG_ITS ---
APPROVED REPORT Exam: Resting ECG Reason for Exam: short of breath Patient Location: E HR:79 bpm ECG Measurements Heart Rate 79 AXIS OK 224 P 8 QRSd 167 QRS 45 QT 508 T 11 QTc 558 Conclusion Sinus rhythm.poor wandering baseline Prolonged OK interval...OK >210 Right bundle branch block
--- NOTE | 2022-06-07 09:15 | DI.RAD_ITS ---
Exam(s) XR PORTABLE CHEST AP EXAM: XR PORTABLE CHEST AP CLINICAL HISTORY: shortness of breath TECHNIQUE: 2D digital imaging was performed of the chest. One image was obtained. An AP view was ob tained. COMPARISON: CR XR CHEST 2V PA LATERAL from 07/03/[address] CHEST/ABD/PEL W from 02/03/2021 CR XR PORTABLE CHEST AP from 05/19/2022 FINDINGS: MEDIASTINUM: Normal. HEART: Cardiomegaly. Aortic and tricuspid process valves are again seen. PULMONARY VASCULATURE: Normal. LUNGS: No focal consolidating infiltrates are present. The lungs are hyperinflated with flattened di aphragms suggesting underlying COPD. PLEURAL SPACE: No pneumothorax. There is again seen blunting of the right costophrenic angle. This may represent scarring or tiny effusion. No significant left pleural effusion is seen. BONE:Within normal limits for the patient's age. OTHER FINDINGS:The central venous catheter is stable in position. IMPRESSION: Overall, there has been no significant change in appearance of the chest compared to prior examinatio n. No focal consolidating infiltrate. Scarring versus tiny right pleural effusion. DATA REPOSITORY: RADIATION DOSE DELIVERED:
[2022-06-07 09:22] VITALS: PULSE 74; TEMP 36.8; O2SAT 90
--- NOTE | 2022-06-07 09:24 | ED.GENADUL_ITS ---
Discharge Plan Disposition Patient Disposition: Home Discharge Details Clinical Impression: ESRD on dialysis, COPD exacerbation Primary Care Provider: Chano Neves ED Provider: Kirt Sky Home Meds and New Rx's Prescriptions: New prednisone 50 mg tablet 50 mg PO DAILY 5 Days Qty: 5 0RF Continued ondansetron HCl 4 mg tablet 4 mg PO ONCE PRN (Reason: nausea and vomiting) Qty: 1 0RF levofloxacin 750 mg tablet 750 mg PO DAILY Qty: 5 0RF Spiriva with HandiHaler 18 mcg capsule, w/inhalation device 1 cap inhalation DAILY Qty: 1 0RF Rx Instructions: puncture 1 cap using device; one dose = 2 inhalations from [facility] albuterol sulfate 2.5 mg /3 mL (0.083 %) solution for nebulization 2.5 mg inhalation Q6H PRN (Reason: shortness of breath or wheezing) Qty: 3 0RF Rx Instructions: VA B complex-vitamin C-folic acid 0.8 mg tablet 1 tab PO DAILY sevelamer carbonate 800 mg tablet 400 mg PO TID Rx Instructions: must administer with a meal/food aspirin 81 MG tablet,chewable 81 mg PO DAILY albuterol sulfate [ProAir HFA] 8.5 GM HFA aerosol inhaler 2 puff Inhalation Q4H PRN atorvastatin 40 mg tablet 20 mg PO DAILY minoxidil 2.5 mg tablet 5 mg PO QHS omeprazole 40 mg Capsule,Delayed Release(Dr/Ec) 40 mg PO BID meclizine 12.5 mg Tablet 12.5 mg PO PRN PRN benzonatate 100 mg capsule 100 mg PO TID PRN (Reason: cough) Qty: 20 0RF (DME) Aerochamber MV Spacer MISCELLANEOUS ipratropium-albuterol 0.5 mg-3 mg(2.5 mg base)/3 mL solution for nebulization 3 ml inhalation Q4H PRNQty: 180 0RF sucralfate 1 gram tablet 1 g PO DAILY Patient Comments: TAKE 1 TABLET BY MOUTH FOUR TIMES DAILY BEFORE MEALS AND AT BEDTIME loperamide 2 mg Capsule 2 mg PO PRN PRN diphenhydramine HCl 25 mg Tablet 25 mg PO PRN PRN calcitriol 1 mcg/mL Solution 1 mcg intraperitoneal 1XD No Action codeine-guaifenesin 10-100 mg/5 mL liquid See Rx Instructions PO Q6H PRN (Reason: cough) Qty: 120 0RF Rx Instructions: one to two teaspoons PO every 6 hours PRN cough ; doxycycline hyclate 100 mg capsule 100 mg PO BID Qty: 10 0RF prednisone 20 mg tablet 40 mg PO DAILY Qty: 6 0RF Discharge Instructions Instructions: COPD (Chronic Obstructive Pulmonary Disease) (ED) Additional Instructions: Continue your Levaquin as previously prescribed until finished. You should be proud of the fact that you stop smoking, continue this good improvement to your health. Take prednisone as prescribed, next dose will be tomorrow morning. Follow-up with Dr. Neves for routine care and dialysis as planned. Return to the emergency department for any acute concerns Medical Decision Making This is a 56-year-old female who presents via EMS. She has a history of COPD on 2 L home oxygen. Noticed increased shortness of breath this morning. She has had some cough and wheezing. No noted fever. The patient has been routinely attending dialysis including a normal run yesterday. She arrives with diminished breath sounds and at times low oxygen. IV access is established, she is given parenteral steroids, inhaled DuoNeb and is improving with an oxygen 97% on 2 L. Laboratories note chronic anemia hemoglobin of 9.9, hematocrit 33, white blood cell count of 3.8 and platelets 92. Electrolytes unremarkable. BUN 29 creatinine 5.5. Influenza/SARS/RSV negative Chest x-ray no significant change in appearance of the chest compared to prior. No infiltrate. See formal report. Patient observed, ate a midday meal, improved with DuoNeb therapy and steroids. Oxygen was 95 to 96% on her home level of 2 L. This piercing was consistent with COPD exacerbation. Her primary care physician has her on currently on a course of Levaquin for which she is finishing in 2 days. I will add a burst of steroids. Patient will continue outpatient dialysis tomorrow. HPI General Mode of arrival: EMS . Date/Time Provider Initiated Documentation: 06/07/22 09:48 . Limitations to Documentation: no limitations . Information obtained by: patient and EMS . History of Present Illness 56 year old F presents to the emergency department with the chief complaint of Shortness of breath this morning. Normal dialysis yesterday., described as moderate, and is localized to the chest. Patient reports no radiation. Patient started experiencing this hour(s) and it has been constant. other things that improve symptom(s), (DuoNeb en route) No exacerbating factors reported . Patient notes shortness of breath; denies chest pain, fever/chills and syncope. Patient did receive the following treatments prior to arrival, none Related Data Home Medications Medication Instructions Recorded Confirmed aspirin 81 mg chewable tablet 81 mg PO DAILY 05/24/16 06/02/22 albuterol sulfate 90 mcg/actuation 2 puff inhalation Q4H PRN 07/26/17 06/02/22 aerosol inhaler (ProAir HFA) inhalational spacing device 01/26/19 06/02/22 (Aerochamber MV spacer) meclizine 12.5 mg tablet 12.5 mg PO PRN PRN 03/18/19 06/02/22 omeprazole 40 mg capsule,delayed 40 mg PO BID 03/18/19 06/02/22 release atorvastatin 40 mg tablet 20 mg PO DAILY 10/24/19 06/02/22 albuterol sulfate 2.5 mg/3 mL 2.5 mg (3 mL) inhalation Q6H PRN 02/16/21 06/02/22 (0.083 %) solution for nebulization shortness of breath or wheezing #3 mL tiotropium bromide 18 mcg capsule 1 cap inhalation DAILY #1 inh 02/16/21 06/02/22 with inhalation device (Spiriva with HandiHaler) minoxidil 2.5 mg tablet 5 mg PO QHS 01/21/22 06/02/22 ondansetron HCl 4 mg tablet 4 mg PO ONCE PRN nausea and 02/08/22 06/02/22 vomiting #1 tab ipratropium 0.5 mg-albuterol 3 mg 3 ml inhalation Q4H PRN #180 mL 03/01/22 06/02/22 (2.5 mg base)/3 mL nebulization soln calcitriol 1 mcg/mL intravenous 1 mcg intraperitoneal 1XD 04/13/22 06/02/22 solution diphenhydramine HCl 25 mg tablet 25 mg PO PRN PRN 04/13/22 06/02/22 loperamide 2 mg capsule 2 mg PO PRN PRN 04/13/22 06/02/22 sucralfate 1 gram tablet 1 g PO DAILY 04/13/22 06/02/22 codeine 10 mg-guaifenesin 100 mg/5 See Rx Instructions PO Q6H PRN 04/14/22 06/02/22 mL oral liquid cough #120 mL sevelamer carbonate 800 mg tablet 400 mg PO TID 04/19/22 06/02/22 vitamin B complex-vitamin C-folic 1 tab PO DAILY 04/19/22 06/02/22 acid 0.8 mg tablet benzonatate 100 mg capsule 100 mg PO TID PRN cough #20 caps 05/19/22 06/02/22 doxycycline hyclate 100 mg capsule 100 mg PO BID #10 caps 05/19/22 06/02/22 prednisone 20 mg tablet 40 mg PO DAILY #6 tabs 05/19/22 06/02/22 levofloxacin 750 mg tablet 750 mg PO DAILY #5 tabs 06/02/22 06/02/22 prednisone 50 mg tablet 50 mg PO DAILY 5 days #5 tabs 06/07/22 Previous Rx's Medication Instructions Recorded albuterol sulfate 2.5 mg/3 mL 2.5 mg (3 mL) inhalation Q6H PRN 02/16/21 (0.083 %) solution for nebulization shortness of breath or wheezing #3 mL tiotropium bromide 18 mcg capsule 1 cap inhalation DAILY #1 inh 02/16/21 with inhalation device (Spiriva with HandiHaler) ondansetron HCl 4 mg tablet 4 mg PO ONCE PRN nausea and 02/08/22 vomiting #1 tab ipratropium 0.5 mg-albuterol 3 mg 3 ml inhalation Q4H PRN #180 mL 03/01/22 (2.5 mg base)/3 mL nebulization soln codeine 10 mg-guaifenesin 100 mg/5 See Rx Instructions PO Q6H PRN 04/14/22 mL oral liquid cough #120 mL benzonatate 100 mg capsule 100 mg PO TID PRN cough #20 caps 05/19/22 doxycycline hyclate 100 mg capsule 100 mg PO BID #10 caps 05/19/22 prednisone 20 mg tablet 40 mg PO DAILY #6 tabs 05/19/22 levofloxacin 750 mg tablet 750 mg PO DAILY #5 tabs 06/02/22 prednisone 50 mg tablet 50 mg PO DAILY 5 days #5 tabs 06/07/22 Allergies Allergy/AdvReac Type Severity Reaction Status Date / Time cephalexin monohydrate Allergy Severe trouble Verified 05/31/22 09:02 [From Keflex] breathing colchicine Allergy Verified 05/31/22 09:02 allopurinol AdvReac Intermediate gout Verified 05/31/22 09:02 breakout erythromycin base AdvReac Intermediate gout Verified 05/31/22 09:02 breakout acetaminophen [From Percocet] AdvReac Unverified 05/31/22 09:02 oxycodone [From Percocet] AdvReac Unverified 05/31/22 09:02 General Stated Complaint: SOB AWA: 3 Review of Systems Narrative: 6 systems reviewed and otherwise negative. Home oxygen of 2 L. No recent prednisone. Monday dialysis that has been routine. She has a maturing right upper extremity AV fistula they have begun to use. PFSH All Active Problems (Updated 06/07/22 @ 11:35 by Kirt Sky MD) COPD exacerbation (Acute) Acute exacerbation of chronic obstructive pulmonary disease (Acute) Fever (Acute) Open abdominal wall wound (Acute) ESRD on dialysis (Chronic) On hemodialysis currently using central catheter-nephrology at [facility] receives dialysis at [facility] Depression (Acute 08/28/14) Gallstones (Acute) COPD (chronic obstructive pulmonary disease) (Chronic) Pulmonary at [facility] Central venous catheter in place (Acute ~10/29/19) [facility] [place] subclavian-dialysis Tricuspid regurgitation (Acute) s/p tricuspid valve replacement 02/2020, bovine Cirrhosis, alcoholic (Acute) POLST (Physician Orders for Life-Sustaining Treatment) (Acute) COLST completed 02/13/2020, DNR/DNI. Hemorrhage of arteriovenous fistula (Acute) Ventral hernia (Acute) Hypertension (Chronic) Aortic valve replaced (Acute) Bovine-with [facility] Personal history of nicotine dependence (Acute) 02/2021 Tobacco abuse (Acute) Lung nodule, solitary (Acute) Hemoptysis (Acute) Medical History Axillary lymphadenopathy Bleeding hemorrhoids (01/08/13) rectal bleeding (colonoscopy [facility] [place]13 internal hemorrhoids and diverticuli) Cannabis dependence CVD (cardiovascular disease) Cyst of ovary (08/20/12) Depression (09/14/12) Diverticulitis of large intestine without perforation or abscess with bleeding Essential hypertension (01/16/13) severe and labile Gastroesophageal reflux disease with esophagitis (02/03/15) Hyperlipidemia Hyperparathyroidism, unspecified (02/09/11) 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[facility] [place] Macular degeneration of left eye (~10/17/19) [facility] [place] Nail dystrophy Recurrent urinary tract infection Right heart failure Secondary hyperparathyroidism (of renal origin) Umbilical hernia repaired 1995,1997,2001,2003 Upper GI bleed (05/17/14) 05/15/14 [facility] [place] EGD, HH, esophagitis, gastric ulcer and duodenitis Surgical History Abdominal hysterectomy (~2006) s/p hyst, but cervix still present and needs yearly PAP due to transplant H/O aortic valve replacement History of kidney transplant Repair of umbilical hernia 1995,1997,2001,2003 TRANSPLANT, KIDNEY (~1997) LEFT Family History Mother Essential hypertension Personal history of malignant neoplasm KIDNEY Heart disease Pulmonary emphysema Father Personal history of malignant neoplasm Pulmonary emphysema Brother Hyperlipidemia Brother Hyperlipidemia Brother No problems noted. Social History Smoking/Tobacco Use Status: Current every day Tobacco Type: cigarettes Smoking risk assessment performed?: Yes Alcohol Intake: former Drug use: Daily Substance use type: marijuana Details: mostly edibles Current gender identity: female Do you feel safe at home: Yes Do you feel safe in your relationship?: Yes Exam Narrative Exam Narrative: GEN: awake, alert, oriented 3. Pleasant, interactive. HEAD: Normocephalic, atraumatic ENT: Mucous membranes moist, oropharynx unremarkable, External ear exam unremarkable EYES: PERRL, EOMI NECK: Full ROM, no MIK, no menigismus CHEST/RESP: Nontender, diminished throughout with few expiratory wheezes, no rales appreciated. Right upper anterior chest with dialysis catheter in place. CARDIOVASCULAR: RRR, no murmur, rub sergio. 2+ Rad pulse bilateral ABDOMEN: Soft, nontender, no mass. +Bowel sounds EXT: Full ROM, right and left upper extremity AV fistulas present, 1-2+ edema lower extremity. Neuro: Grossly normal neurologic exam, conversant, interactive. Psych: Speech fluent, thoughts congruent, affect normal Course Vital Signs Vital signs: Respiratory Effort Short of Breath 06/07/22 09:20
[2022-06-07 09:25] VITALS: RESP 24
[2022-06-07 09:28] VITALS: BP 174/90
[2022-06-07 09:34] VITALS: O2SAT 97
[2022-06-07 09:48] LABS: Abs Immature Grans 0.02 10^3/uL (0.0-0.06); Absolute Basophil Count 0.05 10^3/uL (0.0-0.2); Absolute Eosinophil Count 0.46 10^3/uL (0.0-0.7); Absolute Lymphocyte Count 0.49 10^3/uL (1.2-3.4); Absolute Monocyte Count 0.47 10^3/uL (0.1-0.8); Absolute Neutrophil Count 2.38 10^3/uL (1.2-6.7); Basophils % 1.3; Eosinophils % 11.9; HGB 9.9 g/dL (11.2-15.7); Immature Grans % 0.5; Lymphocytes % 12.7; MCH 29.2 pg (27.0-33.0); MCV 97 fL (80-95); MPV 11.6 fL (8.0-11.0); Monocytes % 12.1; Neutrophils % 61.5; RBC 3.39 10^6/uL (3.93-5.22); RDW 16.2 % (11.7-14.6); RDW-SD 57.3 fL; WBC 3.87 10^3/uL (4.4-10.8)
[2022-06-07 10:00] VITALS: RESP 11; RESP 15; RESP 8; O2SAT 97
[2022-06-07] MEDS: methylPREDNISolone SUCC 125 MG VIAL IVP (10:00)
[2022-06-07] MEDS: Normal Saline 500 ML IV (10:01)
[2022-06-07 10:03] LABS: ALT 24 U/L (14-59); AST 29 U/L (15-37); Albumin 3.4 g/dL (3.4-5.0); Alkaline Phosphatase 236 U/L (46-116); Anion Gap 9.6 mmol/L (3-11); BUN 29 mg/dL (7-18); Bilirubin, Total 0.6 mg/dL (0.2-1.0); CO2 30.4 mmol/L (21.0-32.0); Calcium 8.8 mg/dL (8.5-10.1); Chloride 100 mmol/L (98-107); Estimated GFR 8.44 (mL/min/1.73m2); Glucose 83 mg/dL (74-106); Magnesium 2.1 mg/dL (1.8-2.4); Potassium 4.9 mmol/L (3.5-5.1); Sodium 140 mmol/L (136-145); Total Protein 6.9 g/dL (6.4-8.2)
[2022-06-07 10:04] LABS: CREATININE 5.5 mg/dL (0.55-1.02)
[2022-06-07 10:14] LABS: Diff Comment Diff Reviewed; Platelet Count 92 10^3/uL (130-400)
[2022-06-07 10:15] LABS: Hypochromasia 1+
[2022-06-07 10:50] LABS: COVID-19 PCR Negative (Negative); Influenza A PCR Negative (Negative); Influenza B PCR Negative (Negative); RSV PCR Negative (Negative)
[2022-06-07 11:00] LABS: Source Nasopharynx
[2022-06-07] MEDS: Acetaminophen 500 MG TAB 1000 MG PO (11:54)
[2022-06-07] MEDS: Ondansetron 4 MG/2 ML VIAL IVP (12:12)
--- NOTE | 2022-06-07 12:16 | NUR.NOTE ---
Nursing Note: Pt started vomiting. Administered IV zofran 4mg per Dr. Sky verbal order
--- NOTE | 2022-06-07 12:18 | NUR.NOTE ---
Nursing Note: MD Sky stopped IV infusion at 250ml did not want to finish
[2022-06-07] MEDS: predniSONE 40 MG, predniSONE 10 MG 50 MG PO (12:33)
[2022-06-07 12:35] VITALS: BP 168/82; PULSE 75; RESP 18; O2SAT 97
== END 2022-06-07 12:39 | disposition home or self-care (01) ==
PROVIDERS: Emergency Provider Emergency Medicine; PCP Family Medicine
DX: J44.1 Chronic obstructive pulmonary disease with (acute) exacerbation (principal); N18.6 End stage renal disease; D63.1 Anemia in chronic kidney disease; Z20.822 Contact with and (suspected) exposure to COVID-19; Z99.2 Dependence on renal dialysis; I12.0 Hypertensive chronic kidney disease with stage 5 chronic kidney disease or end stage renal disease
CPT/HCPCS: 36415; 80053; 87637; 93005; 94640; 96374; 96375; 99284; 71045; 83735; 85025; 93010; J2405; J2930; J7512; J7613; J7644

== ENCOUNTER 2022-07-04 10:15 | Emergency (ER) | payer OTHER, SELFPAY ==
[2022-07-04] VITALS (9 sets, daily range): BP systolic 90–137; BP diastolic 37–73; PULSE 65–74; RESP 4–22; TEMP 36.8; O2SAT 89–100
--- NOTE | 2022-07-04 10:15 | DI.RAD_ITS ---
Exam(s) XR PORTABLE CHEST AP EXAM: XR PORTABLE CHEST AP CLINICAL HISTORY: dyspnea, wheezing TECHNIQUE: 2D digital imaging was performed of the chest. One image was obtained. An AP view was ob tained. COMPARISON: CR XR CHEST 2V PA LATERAL from 06/28/[address] CHEST PE CTA from 12/27/2021 CR XR PORTABLE CHEST AP from 06/07/2022 FINDINGS: MEDIASTINUM: Normal. HEART: Cardiomegaly. Aortic and mitral valve replacements are present. PULMONARY VASCULATURE: Normal. LUNGS: No focal consolidating infiltrates. PLEURAL SPACE: No pleural effusion or pneumothorax. BONE:Within normal limits for the patient's age. Sternal wires are in place. OTHER FINDINGS:Normal. IMPRESSION: No acute pulmonary findings. DATA REPOSITORY: RADIATION DOSE DELIVERED:
--- NOTE | 2022-07-04 10:20 | ED.GENADUL_ITS ---
Discharge Plan Disposition Patient Disposition: Home Discharge Details Clinical Impression: COPD exacerbation, Acute bronchitis Primary Care Provider: Chano Neves ED Provider: Kian Gross Home Meds and New Rx's Prescriptions: New prednisone 10 mg tablet 10 mg PO DIRECTED Qty: 30 0RF Rx Instructions: see taper instructions3 4 tab x 3 day, 3 tab x 3 days, 2 tab x 3 days, 1 tab x 3 days levofloxacin 250 mg tablet 250 mg PO DAILY 10 Days Qty: 10 0RF Continued ondansetron HCl 4 mg tablet 4 mg PO ONCE PRN (Reason: nausea and vomiting) Qty: 1 0RF levofloxacin 750 mg tablet 750 mg PO DAILY Qty: 5 0RF Spiriva with HandiHaler 18 mcg capsule, w/inhalation device 1 cap inhalation DAILY Qty: 1 0RF Rx Instructions: puncture 1 cap using device; one dose = 2 inhalations from [facility] albuterol sulfate 2.5 mg /3 mL (0.083 %) solution for nebulization 2.5 mg inhalation Q6H PRN (Reason: shortness of breath or wheezing) Qty: 3 0RF Rx Instructions: VA B complex-vitamin C-folic acid 0.8 mg tablet 1 tab PO DAILY sevelamer carbonate 800 mg tablet 400 mg PO TID Rx Instructions: must administer with a meal/food codeine-guaifenesin 10-100 mg/5 mL liquid See Rx Instructions PO Q6H PRN (Reason: cough) Qty: 120 0RF Rx Instructions: one to two teaspoons PO every 6 hours PRN cough ; aspirin 81 MG tablet,chewable 81 mg PO DAILY albuterol sulfate [ProAir HFA] 8.5 GM HFA aerosol inhaler 2 puff Inhalation Q4H PRN atorvastatin 40 mg tablet 20 mg PO DAILY minoxidil 2.5 mg tablet 5 mg PO QHS omeprazole 40 mg Capsule,Delayed Release(Dr/Ec) 40 mg PO BID meclizine 12.5 mg Tablet 12.5 mg PO PRN PRN doxycycline hyclate 100 mg capsule 100 mg PO BID Qty: 10 0RF benzonatate 100 mg capsule 100 mg PO TID PRN (Reason: cough) Qty: 20 0RF prednisone 20 mg tablet 40 mg PO DAILY Qty: 6 0RF prednisone 50 mg tablet 50 mg PO DAILY 5 Days Qty: 5 0RF (DME) Aerochamber MV Spacer MISCELLANEOUS ipratropium-albuterol 0.5 mg-3 mg(2.5 mg base)/3 mL solution for nebulization 3 ml inhalation Q4H PRNQty: 180 0RF sucralfate 1 gram tablet 1 g PO DAILY Patient Comments: TAKE 1 TABLET BY MOUTH FOUR TIMES DAILY BEFORE MEALS AND AT BEDTIME loperamide 2 mg Capsule 2 mg PO PRN PRN diphenhydramine HCl 25 mg Tablet 25 mg PO PRN PRN calcitriol 1 mcg/mL Solution 1 mcg intraperitoneal 1XD Discharge Instructions Instructions: Acute Bronchitis (ED), COPD (Chronic Obstructive Pulmonary Disease) (ED) Discharge Data Discharge Physician: Kian Gross Medical Decision Making Patient presented to the emergency department this morning after she had dialysis complaining of wheezing cough productive of yellow sputum. On exam she had audible wheezing. She had chest x-rays done which did not show any abnormality at this time. Labs are unchanged from previous ones, patient received prednisone, DuoNeb, and ciprofloxacin in the emergency department no examination he has no more wheezing. She will be placed on a tapering dose of prednisone and will be discharged home with continuation of dialysis program. Differential Diagnosis Differential Diagnosis: 1. COPD exacerbation 2. Asthma 3. Fluid overload with congestive heart f Medical Records Medical records reviewed: Yes I reviewed the patient's medical records. Imaging Data Radiologic Study: Attestation: I personally reviewed and interpreted this imaging study as follows: Imaging: X-Ray My impression: Agree with the radiologist interpretation that the patient has no infiltrates on his chest x-ray Radiologist's impression: Patient Name: Earlene Huang Unit #: [id number] Loc: ER ? Ordering Provider:? Kian Gross M.D. Status: REG ER ? Primary Care Provider: Chano Neves M.D. Date of Exam: 07/04/22 Sex: F ? Admission Date: 07/04/22? : 1965 ? Age: 56 ? Exam(s) XR PORTABLE CHEST AP EXAM:? XR PORTABLE CHEST AP CLINICAL HISTORY:? dyspnea, wheezing TECHNIQUE:? 2D digital imaging was performed of the chest. One image was obtained.? An AP view was obtained. COMPARISON:? CR XR CHEST 2V PA ? LATERAL from 06/28/[address] CHEST PE CTA from 12/27/2021 CR XR PORTABLE CHEST AP from 06/07/2022 FINDINGS: MEDIASTINUM: Normal.? HEART: Cardiomegaly.? Aortic and mitral valve replacements are present.? PULMONARY VASCULATURE: Normal. LUNGS: No focal consolidating infiltrates. ? PLEURAL SPACE: No pleural effusion or pneumothorax. BONE:Within normal limits for the patient's age. Sternal wires are in place. OTHER FINDINGS:Normal.? IMPRESSION: No acute pulmonary findings. DATA REPOSITORY:? RADIATION DOSE DELIVERED:? Ordered By:? Kian Gross M.D. CC: ? Dictated By: Joe Short M.D. ? 07/04/22 1149 ? <Electronically signed by Joe Short M.D. in OV> ? 07/04/22 1149 Transcribed By: Joe Short?? ? This is privileged, confidential information intended only for the provider named. Any use or distribution by any person other than this provider is strictly prohibited. If you receive this report in error, please notify us immediately at [phone] Lab Data Lab results reviewed: Yes I reviewed the patient's lab results. HPI General Date/Time Provider Initiated Documentation: 07/04/22 10:20 . HPI Narrative: Patient presents emergency department complaining of cough sometimes productive of yellow-green sputum shortness of breath and states that she has audible wheezes. Patient is a frequent visitor to the emergency department who is on hemodialysis who was hemodialysis prior to arrival to the ED where they removed 2 L of fluid. She was noted to be wheezing and states that she has COPD and this is most likely one of her exacerbation. Denies any chest pain denies any lower extremity swelling denies any fever denies any chills. Related Data Home Medications Medication Instructions Recorded Confirmed aspirin 81 mg chewable tablet 81 mg PO DAILY 05/24/16 07/04/22 albuterol sulfate 90 mcg/actuation 2 puff inhalation Q4H PRN 07/26/17 07/04/22 aerosol inhaler (ProAir HFA) inhalational spacing device 01/26/19 07/04/22 (Aerochamber MV spacer) meclizine 12.5 mg tablet 12.5 mg PO PRN PRN 03/18/19 07/04/22 omeprazole 40 mg capsule,delayed 40 mg PO BID 03/18/19 07/04/22 release atorvastatin 40 mg tablet 20 mg PO DAILY 10/24/19 07/04/22 albuterol sulfate 2.5 mg/3 mL 2.5 mg (3 mL) inhalation Q6H PRN 02/16/21 07/04/22 (0.083 %) solution for nebulization shortness of breath or wheezing #3 mL tiotropium bromide 18 mcg capsule 1 cap inhalation DAILY #1 inh 02/16/21 07/04/22 with inhalation device (Spiriva with HandiHaler) minoxidil 2.5 mg tablet 5 mg PO QHS 01/21/22 07/04/22 ondansetron HCl 4 mg tablet 4 mg PO ONCE PRN nausea and 02/08/22 07/04/22 vomiting #1 tab ipratropium 0.5 mg-albuterol 3 mg 3 ml inhalation Q4H PRN #180 mL 03/01/22 07/04/22 (2.5 mg base)/3 mL nebulization soln calcitriol 1 mcg/mL intravenous 1 mcg intraperitoneal 1XD 04/13/22 07/04/22 solution diphenhydramine HCl 25 mg tablet 25 mg PO PRN PRN 04/13/22 07/04/22 loperamide 2 mg capsule 2 mg PO PRN PRN 04/13/22 07/04/22 sucralfate 1 gram tablet 1 g PO DAILY 04/13/22 07/04/22 sevelamer carbonate 800 mg tablet 400 mg PO TID 04/19/22 07/04/22 vitamin B complex-vitamin C-folic 1 tab PO DAILY 04/19/22 07/04/22 acid 0.8 mg tablet benzonatate 100 mg capsule 100 mg PO TID PRN cough #20 caps 05/19/22 07/04/22 doxycycline hyclate 100 mg capsule 100 mg PO BID #10 caps 05/19/22 07/04/22 prednisone 20 mg tablet 40 mg PO DAILY #6 tabs 05/19/22 07/04/22 levofloxacin 750 mg tablet 750 mg PO DAILY #5 tabs 06/02/22 07/04/22 prednisone 50 mg tablet 50 mg PO DAILY 5 days #5 tabs 06/07/22 07/04/22 codeine 10 mg-guaifenesin 100 mg/5 See Rx Instructions PO Q6H PRN 06/14/22 07/04/22 mL oral liquid cough #120 mL levofloxacin 250 mg tablet 250 mg PO DAILY 10 days #10 tabs 07/04/22 prednisone 10 mg tablet 10 mg PO DIRECTED #30 tabs 07/04/22 Previous Rx's Medication Instructions Recorded albuterol sulfate 2.5 mg/3 mL 2.5 mg (3 mL) inhalation Q6H PRN 02/16/21 (0.083 %) solution for nebulization shortness of breath or wheezing #3 mL tiotropium bromide 18 mcg capsule 1 cap inhalation DAILY #1 inh 02/16/21 with inhalation device (Spiriva with HandiHaler) ondansetron HCl 4 mg tablet 4 mg PO ONCE PRN nausea and 02/08/22 vomiting #1 tab ipratropium 0.5 mg-albuterol 3 mg 3 ml inhalation Q4H PRN #180 mL 03/01/22 (2.5 mg base)/3 mL nebulization soln benzonatate 100 mg capsule 100 mg PO TID PRN cough #20 caps 05/19/22 doxycycline hyclate 100 mg capsule 100 mg PO BID #10 caps 05/19/22 prednisone 20 mg tablet 40 mg PO DAILY #6 tabs 05/19/22 levofloxacin 750 mg tablet 750 mg PO DAILY #5 tabs 06/02/22 prednisone 50 mg tablet 50 mg PO DAILY 5 days #5 tabs 06/07/22 codeine 10 mg-guaifenesin 100 mg/5 See Rx Instructions PO Q6H PRN 06/14/22 mL oral liquid cough #120 mL levofloxacin 250 mg tablet 250 mg PO DAILY 10 days #10 tabs 07/04/22 prednisone 10 mg tablet 10 mg PO DIRECTED #30 tabs 07/04/22 Allergies Allergy/AdvReac Type Severity Reaction Status Date / Time cephalexin monohydrate Allergy Severe trouble Verified 07/04/22 10:24 [From Keflex] breathing colchicine Allergy Verified 07/04/22 10:24 allopurinol AdvReac Intermediate gout Verified 07/04/22 10:24 breakout erythromycin base AdvReac Intermediate gout Verified 07/04/22 10:24 breakout acetaminophen [From Percocet] AdvReac Unverified 07/04/22 10:24 oxycodone [From Percocet] AdvReac Unverified 07/04/22 10:24 General AWA: 3 Review of Systems All systems reviewed & are unremarkable except as noted in HPI and below Constitutional Constitutional: Reports as per HPI and Reports system reviewed and no additional complaints, except as documented Eyes Eyes: Reports as per HPI ENT Ears, Nose, Mouth, and Throat: Reports system reviewed and no additional complaints, except as documented Cardiovascular Cardiovascular: Reports as per HPI and Reports system reviewed and no additional complaints, except as documented Respiratory Respiratory: Reports as per HPI and Reports system reviewed and no additional complaints, except as documented Gastrointestinal Gastrointestinal: Reports as per HPI and Reports system reviewed and no ad ditional complaints, except as documented Genitourinary Genitourinary: Reports system reviewed and no additional complaints, except as documented Musculoskeletal Musculoskeletal: Reports system reviewed and no additional complaints, except as documented Integumentary/Breasts Skin/Breast: Reports system reviewed and no additional complaints, except as documented Neurologic Neurologic: Reports system reviewed and no additional complaints, except as documented Psychiatric Psychiatric: Reports system reviewed and no additional complaints, except as documented Hematologic/Lymphatic Hematologic/Lymphatic: Reports system reviewed and no additional complaints, except as documented PFSH All Active Problems (Updated 07/04/22 @ 12:11 by Kian Gross MD) Acute bronchitis (Acute) Neck pain (Acute) COPD exacerbation (Acute) Fever (Acute) Open abdominal wall wound (Acute) ESRD on dialysis (Chronic) On hemodialysis currently using central catheter-nephrology at [facility] receives dialysis at [facility] region Depression (Acute 08/28/14) Gallstones (Acute) COPD (chronic obstructive pulmonary disease) (Chronic) Pulmonary at [facility] Central venous catheter in place (Acute ~10/29/19) [facility], right subclavian-dialysis Tricuspid regurgitation (Acute) s/p tricuspid valve replacement 02/2020, bovine Cirrhosis, alcoholic (Acute) POLST (Physician Orders for Life-Sustaining Treatment) (Acute) COLST completed 02/13/2020, DNR/DNI. Hemorrhage of arteriovenous fistula (Acute) Ventral hernia (Acute) Hypertension (Chronic) Aortic valve replaced (Acute) Bovine-with [facility] Personal history of nicotine dependence (Acute) 02/2021 Tobacco abuse (Acute) Lung nodule, solitary (Acute) Hemoptysis (Acute) Medical History Axillary lymphadenopathy Bleeding hemorrhoids (01/08/13) rectal bleeding (colonoscopy [facility] 01/01/13 internal hemorrhoids and diverticuli) Cannabis dependence CVD (cardiovascular disease) Cyst of ovary (08/20/12) Depression (09/14/12) Diverticulitis of large intestine without perforation or abscess with bleeding Essential hypertension (01/16/13) severe and labile Gastroesophageal reflux disease with esophagitis (02/03/15) Hyperlipidemia Hyperparathyroidism, unspecified (02/09/11) 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[facility] Macular degeneration of left eye (~10/17/19) [facility] Nail dystrophy Recurrent urinary tract infection Right heart failure Secondary hyperparathyroidism (of renal origin) Umbilical hernia repaired 1995,1997,2001,2003 Upper GI bleed (05/17/14) 05/15/14 [facility] EGD, HH, esophagitis, gastric ulcer and duodenitis Surgical History Abdominal hysterectomy (~2006) s/p hyst, but cervix still present and needs yearly PAP due to transplant H/O aortic valve replacement History of kidney transplant Repair of umbilical hernia 1995,1997,2001,2003 TRANSPLANT, KIDNEY (~1997) LEFT Family History Mother Essential hypertension Personal history of malignant neoplasm KIDNEY Heart disease Pulmonary emphysema Father Personal history of malignant neoplasm Pulmonary emphysema Brother Hyperlipidemia Brother Hyperlipidemia Brother No problems noted. Social History Smoking/Tobacco Use Status: Current every day Tobacco Type: cigarettes Smoking risk assessment performed?: Yes Alcohol Intake: former Drug use: Daily Substance use type: marijuana Details: mostly edibles Current gender identity: female Do you feel safe at home: Yes Do you feel safe in your relationship?: Yes Exam Const General: cooperative, healthy appearing, comfortable, no acute distress and well developed HENMT Head: normal to inspection, normocephalic and atraumatic Ears: hearing grossly normal bilaterally Mouth: oral mucosae normal Eyes General: appearance normal, both eyes and all related structures Neck Neck: normal visual inspection Carotids: normal carotid upstroke Chest Chest: normal inspection of the chest and normal palpation of entire chest wall Resp Effort & Inspection: normal respiratory effort Auscultation: wheezes expiratory wheezes, inspiratory wheezes and upper bilaterally Cardio Jugular venous pressure: no JVD Rate: regular rate Rhythm: regular rhythm GI Inspection: normal to inspection Palpation: soft Back/Spine/Pelvis Back: no CVA tenderness Skin General skin exam: no rashes or lesions noted and ecchymosis Neuro General: patient alert, patient awake and patient oriented x3 Cranial Nerves: CN's II-XI intact bilaterally Cognition: normal cognition Speech: speech normal Gait: normal gait Motor: muscle tone normal throughout Sensory Exam: no sensory deficits noted Extrem General: normal to inspection and no pedal edema Course Reevaluation(s) Initial Evaluation: Patient was reevaluated and her lungs are clear after the DuoNeb and the prednisone and she states she is better and will be discharged home Time: 12:05 Lab/Test Results Lab/Test Results: RUN DATE: 07/04/22 [facility] PAGE 1 RUN TIME: [id number] RUN USER: [place] [address] Priscilla Mcarthur MD PATIENT REPORT PATIENT: Earlene Huang LOC: ER U #: [id number] /SX: 1965 F ROOM: RE07/04/[address]: Kian Gross M.D. STATUS: REG ER BED: DIS: SPEC #: [id number] YANELI: 07/04/22 STATUS: COMP REQ #: [id number] RECD: 07/04/[address] [facility] [address]: Kian Gross M.D. ENTERED: 07/04/[address]: DELPHINE GAYLE, [place] FAX #: ORDERED: CBC/Diff Test Result Flag Reference Verified WBC 2.88 L 4.4-10.8 10^3/uL 07/04/22 RBC 3.32 L 3.93-5.22 10^6/uL 07/04/22 HGB 9.6 L 11.2-15.7 g/dL 07/04/22 HCT 31.1 L 36.0-46.0 % 07/04/22 MCV 94 80-95 fL 07/04/22 MCH 28.9 27.0-33.0 pg 07/04/22 MCHC 30.9 L 32.0-36.0 % 07/04/22 RDW 15.5 H 11.7-14.6 % 07/04/22 Platelet Count 117 L 130-400 10^3/uL 07/04/22 MPV 11.4 H 8.0-11.0 fL 07/04/22 Neutrophils % 50.0 07/04/22 Lymphocytes % 17.0 07/04/22 Monocytes % 16.7 07/04/22 Eosinophils % 14.6 07/04/22 Basophils % 1.4 07/04/22 Immature Grans % 0.3 07/04/22 Nucleated RBC 0.0 0.0-0.3 % 07/04/22 Absolute Neutrophil Count 1.44 1.2-6.7 10^3/uL 07/04/22 Absolute Lymphocyte Count 0.49 L 1.2-3.4 10^3/uL 07/04/22 Absolute Monocyte Count 0.48 0.1-0.8 10^3/uL 07/04/22 Absolute Eosinophil Count 0.42 0.0-0.7 10^3/uL 07/04/22 Absolute Basophil Count 0.04 0.0-0.2 10^3/uL 07/04/22 Patient: Earlene Huang LABORATORY Acct#[id number] Unit#[id number] RUN DATE: 07/04/22 [facility] PAGE 1 RUN TIME: [address] RUN USER: [place] [address] Priscilla Mcarthur MD PATIENT REPORT PATIENT: Earlene Huang LOC: ER U #: [id number] /SX: 1965 F ROOM: RE07/04/[address]: Kian Gross M.D. STATUS: REG ER BED: DIS: SPEC #: [id number] YANELI: 07/04/22 STATUS: COMP REQ #: [id number] RECD: 07/04/[address]: Kian Gross M.D. ENTERED: 07/04/[address] [facility] [address]: DELPHINE GAYLE, [place] FAX #: ORDERED: CMP, MG, Troponin I Test Result Flag Reference Verified Calcium 8.6 8.5-10.1 mg/dL 07/04/22-1133 Glucose 72 L 74-106 mg/dL 07/04/22 BUN 21 H 7-18 mg/dL 07/04/22 Creatinine 4.4 *H 0.55-1.02 mg/dL 07/04/22 Critical creatinine value reported to and readback from renae rothman in the er at 1132 07/04/22 by LAB.CAMS Result verified by repeat analysis Estimated GFR 11.04 mL/min/1.73m2 07/04/22 The eGFR is calculated from a serum creatinine using the CKD-EPI 202 equation. Other variables required for the equation are gender and age; this equation does not include a race coefficient. This equation has similar overall performance to previous equations except values may differ, in particular, in patients with higher values of eGFR and younger-aged adults. Total Protein 6.9 6.4-8.2 g/dL 07/04/22-1133 Albumin 3.5 3.4-5.0 g/dL 07/04/22 Bilirubin, Total 0.7 0.2-1.0 mg/dL 07/04/22 Alk Phos 307 H 46-116 U/L 07/04/22 Sodium 134 L 136-145 mmol/L 07/04/22 Potassium 3.9 3.5-5.1 mmol/L 07/04/22 Chloride 97 L 98-107 mmol/L 07/04/22 CO2 31.7 21.0-32.0 mmol/L 07/04/22 Anion Gap 5.3 3-11 mmol/L 07/04/22 AST 24 15-37 U/L 07/04/22 ALT 27 14-59 U/L 07/04/22 Magnesium 2.0 1.8-2.4 mg/dL 07/04/22 Cardiac Troponin I < 50 <or=60 ng/L 07/04/22 Patient: Rosie Huangrocio Azevedo LABORATORY Acct#[id number] Unit#[id number] Labs are similar to previous with a creatinine of 4.4 after dialysis
[2022-07-04] MEDS: Albuterol/Ipratropium 3 ML UPD VIAL UPD (10:38)
[2022-07-04] MEDS: predniSONE 20 MG TAB 60 MG PO (10:39)
[2022-07-04] MEDS: Ciprofloxacin 250 MG TAB PO (10:39)
[2022-07-04 11:13] LABS: Abs Immature Grans 0.01 10^3/uL (0.0-0.06); Absolute Basophil Count 0.04 10^3/uL (0.0-0.2); Absolute Eosinophil Count 0.42 10^3/uL (0.0-0.7); Absolute Lymphocyte Count 0.49 10^3/uL (1.2-3.4); Absolute Monocyte Count 0.48 10^3/uL (0.1-0.8); Absolute Neutrophil Count 1.44 10^3/uL (1.2-6.7); Basophils % 1.4; Eosinophils % 14.6; HCT 31.1 % (36.0-46.0); HGB 9.6 g/dL (11.2-15.7); Immature Grans % 0.3; MCH 28.9 pg (27.0-33.0); MCHC 30.9 % (32.0-36.0); MCV 94 fL (80-95); MPV 11.4 fL (8.0-11.0); Monocytes % 16.7; Platelet Count 117 10^3/uL (130-400); RBC 3.32 10^6/uL (3.93-5.22); RDW 15.5 % (11.7-14.6); WBC 2.88 10^3/uL (4.4-10.8)
[2022-07-04 11:29] LABS: ALT 27 U/L (14-59); AST 24 U/L (15-37); Albumin 3.5 g/dL (3.4-5.0); Alkaline Phosphatase 307 U/L (46-116); Anion Gap 5.3 mmol/L (3-11); BUN 21 mg/dL (7-18); Bilirubin, Total 0.7 mg/dL (0.2-1.0); CO2 31.7 mmol/L (21.0-32.0); Calcium 8.6 mg/dL (8.5-10.1); Chloride 97 mmol/L (98-107); Estimated GFR 11.04 (mL/min/1.73m2); Glucose 72 mg/dL (74-106); Potassium 3.9 mmol/L (3.5-5.1); Sodium 134 mmol/L (136-145); Total Protein 6.9 g/dL (6.4-8.2); Troponin I < 50 ng/L (<or=60)
[2022-07-04 11:34] LABS: CREATININE 4.4 mg/dL (0.55-1.02)
== END 2022-07-04 13:02 | disposition home or self-care (01) ==
PROVIDERS: Emergency Provider Emergency Medicine Emergency Medical Services; PCP Family Medicine
DX: J44.0 Chronic obstructive pulmonary disease with (acute) lower respiratory infection (principal); J44.1 Chronic obstructive pulmonary disease with (acute) exacerbation; J20.9 Acute bronchitis, unspecified; I11.0 Hypertensive heart disease with heart failure; I50.9 Heart failure, unspecified; F17.210 Nicotine dependence, cigarettes, uncomplicated; Z79.82 Long term (current) use of aspirin; Z79.52 Long term (current) use of systemic steroids; Z95.4 Presence of other heart-valve replacement
CPT/HCPCS: 36415; 80053; 94640; 99283; 71045; 83735; 84484; 85025; 99284; J7512; J7620

== ENCOUNTER 2022-07-07 16:01 | Emergency (ER) | payer OTHER, SELFPAY ==
[2022-07-07] VITALS (50 sets, daily range): BP systolic 115–161; BP diastolic 34–112; PULSE 71–82; RESP 4–30; TEMP 37; O2SAT 87–100
--- NOTE | 2022-07-07 16:30 | DI.CT_ITS ---
Exam(s) CT CHEST/ABD/PEL WO EXAM: CT CHEST/ABD/PEL WO CLINICAL HISTORY: epigastric and chest pain, GI bleed, ulcer. TECHNIQUE: Imaging Protocol: Axial computed tomography images with coronal and sagittal reformatted images were created and reviewed CONTRAST MATERIAL: Intravenous: Omnipaque 350 Contrast volume:100 ml Oral: yes / no COMPARISON: CT CT CHEST/ABD/PEL W from 02/03/[address] ABDOMEN PELVIS WO from 03/28/2022 CR XR PORTABLE CHEST AP from 07/04/2022 FINDINGS: CHEST: Tracheobronchial tree: Patent where visualized. Pulmonary parenchyma: Emphysematous changes greater in the upper lobes.. Pleura: No effusion or pneumothorax. Lymph nodes: Within normal limits. Aorta: Thoracic portion non-dilated. Atherosclerotic changes. Pulmonary arteries dilated pulmonary arteries, similar to prior. Heart: Enlarged. Coronary arteries heavily calcified.. Mitral and aortic valve prostheses. Bones: Unremarkable for age. No lytic or blastic lesions.No compression fractures. Sternal wires. Soft tissues: Body wall edema. ABDOMEN: Liver: Cirrhotic appearing liver.. No measurable mass. Gallbladder and biliary tract: Cholelithiasis. No gallbladder wall thickening or abnormal distension. Pancreas: Normal density, no abnormal calcifications or inflammatory process. Spleen: Splenomegaly. Kidneys: Severely atrophic.. Adrenal glands: No masses seen. Aorta: Abdominal portion non-dilated. Severely calcified. Splenic artery severely calcified. Lymph nodes: Enlarged bilateral inguinal lymph nodes. Soft tissues: Diffuse body wall edema. Prior abdominal wall hernia repair with mesh in place in the upper midline abdomen left upper quadrant hernia repair.. PELVIS: Bladder: Symmetric distention, no gross wall thickening. Bowel: Severe diverticulosis. No evidence of diverticulitis. No obstruction or bowel wall thickening. Peritoneal cavity: Small amount of ascites. No focal collection or mesenteric inflammatory response. Bones: Unremarkable for age.. Reproductive organs: Within normal limits. IMPRESSION: Cirrhotic liver. Ascites and body wall edema. No acute abnormality. Severely dilated heart. Mitral and aortic valve prostheses. No acute abnormality in the chest. RADIATION DOSE DELIVERED: 861.7mGy.cm Total DLP DATA REPOSITORY: All CT scans at this facility are submitted to the National Radiology Data Registry (NRDR) Dose Index Registry (DIR) with the [employer] (ACR). RADIATION OPTIMIZATION: All CT scans at this facility use at least one of these dose optimization te chniques: automated exposure control; mA and/or kV adjustment per patient size (includes targeted exa ms where dose is matched to clinical indication); or iterative reconstruction.
--- NOTE | 2022-07-07 16:30 | RT.EKG_ITS ---
APPROVED REPORT Exam: Resting ECG Reason for Exam: epigastric pain Patient Location: E HR:74 bpm ECG Measurements Heart Rate 74 AXIS DE 178 P 21 QRSd 159 QRS 57 QT 443 T -5 QTc 490 Conclusion Sinus rhythm...normal P axis, V-rate 60- 99 Right bundle branch block...QRSd>120, terminal axis(90,270)
[2022-07-07 16:41] LABS: Abs Immature Grans 0.04 10^3/uL (0.0-0.06); Absolute Basophil Count 0.01 10^3/uL (0.0-0.2); Absolute Lymphocyte Count 0.37 10^3/uL (1.2-3.4); Absolute Monocyte Count 0.24 10^3/uL (0.1-0.8); Absolute Neutrophil Count 3.93 10^3/uL (1.2-6.7); Basophils % 0.2; HCT 30.5 % (36.0-46.0); HGB 9.7 g/dL (11.2-15.7); Immature Grans % 0.9; Lymphocytes % 8.1; MCH 29.6 pg (27.0-33.0); MCHC 31.8 % (32.0-36.0); MCV 93 fL (80-95); MPV 12.5 fL (8.0-11.0); Monocytes % 5.2; Neutrophils % 85.6; Platelet Count 162 10^3/uL (130-400); RBC 3.28 10^6/uL (3.93-5.22); RDW 15.8 % (11.7-14.6); RDW-SD 53.6 fL; WBC 4.59 10^3/uL (4.4-10.8)
[2022-07-07] MEDS: MORPHine 10 MG/ML VIAL 2 MG IVP ×3 (16:41→21:29)
[2022-07-07] MEDS: Pantoprazole 40 MG VIAL IVP (16:42)
--- NOTE | 2022-07-07 16:45 | W.ED.GENAD ---
Discharge Plan Disposition Patient Disposition: Transfer-Acute Inpatient Care Specific Acute Inpt Facility: Other Condition: Serious Discharge Details Clinical Impression: Acute GI bleeding, ESRD on dialysis, COPD (chronic obstructive pulmonary disease), Cirrhosis, alcoholic, POLST (Physician Orders for Life-Sustaining Treatment), Aortic valve replaced, Anemia Primary Care Provider: Chano Neves ED Provider: Aarti Peralta Home Meds and New Rx's Prescriptions: No Action ondansetron HCl 4 mg tablet 4 mg PO ONCE PRN (Reason: nausea and vomiting) Qty: 1 0RF levofloxacin 750 mg tablet 750 mg PO DAILY Qty: 5 0RF Spiriva with HandiHaler 18 mcg capsule, w/inhalation device 1 cap inhalation DAILY Qty: 1 0RF Rx Instructions: puncture 1 cap using device; one dose = 2 inhalations from [facility] albuterol sulfate 2.5 mg /3 mL (0.083 %) solution for nebulization 2.5 mg inhalation Q6H PRN (Reason: shortness of breath or wheezing) Qty: 3 0RF Rx Instructions: VA B complex-vitamin C-folic acid 0.8 mg tablet 1 tab PO DAILY sevelamer carbonate 800 mg tablet 400 mg PO TID Rx Instructions: must administer with a meal/food codeine-guaifenesin 10-100 mg/5 mL liquid See Rx Instructions PO Q6H PRN (Reason: cough) Qty: 120 0RF Rx Instructions: one to two teaspoons PO every 6 hours PRN cough ; aspirin 81 MG tablet,chewable 81 mg PO DAILY albuterol sulfate [ProAir HFA] 8.5 GM HFA aerosol inhaler 2 puff Inhalation Q4H PRN atorvastatin 40 mg tablet 20 mg PO DAILY minoxidil 2.5 mg tablet 5 mg PO QHS omeprazole 40 mg Capsule,Delayed Release(Dr/Ec) 40 mg PO BID meclizine 12.5 mg Tablet 12.5 mg PO PRN PRN doxycycline hyclate 100 mg capsule 100 mg PO BID Qty: 10 0RF benzonatate 100 mg capsule 100 mg PO TID PRN (Reason: cough) Qty: 20 0RF prednisone 20 mg tablet 40 mg PO DAILY Qty: 6 0RF prednisone 50 mg tablet 50 mg PO DAILY 5 Days Qty: 5 0RF (DME) Aerochamber MV Spacer MISCELLANEOUS ipratropium-albuterol 0.5 mg-3 mg(2.5 mg base)/3 mL solution for nebulization 3 ml inhalation Q4H PRNQty: 180 0RF sucralfate 1 gram tablet 1 g PO DAILY Patient Comments: TAKE 1 TABLET BY MOUTH FOUR TIMES DAILY BEFORE MEALS AND AT BEDTIME loperamide 2 mg Capsule 2 mg PO PRN PRN diphenhydramine HCl 25 mg Tablet 25 mg PO PRN PRN calcitriol 1 mcg/mL Solution 1 mcg intraperitoneal 1XD prednisone 10 mg tablet 10 mg PO DIRECTED Qty: 30 0RF Rx Instructions: see taper instructions3 4 tab x 3 day, 3 tab x 3 days, 2 tab x 3 days, 1 tab x 3 days levofloxacin 250 mg tablet 250 mg PO DAILY 10 Days Qty: 10 0RF Medical Decision Making 56-year-old female known to this facility with history of COPD, end-stage renal disease, dialysis dependent, prosthetic aortic valve presents with report of black tarry stools for the past 3 days, worse today with 3 stools and some epigastric discomfort. Hemoglobin and hematocrit appear stable for the patient, her BUN is elevated at 56, likely consistent with upper GI bleed, she has not had any additional episodes of black tarry stools here although her stool is dark in color and guaiac positive Her blood pressure and vitals have been otherwise stable From a breathing or respiratory standpoint her vitals have been stable, she has been using her oxygen intermittently and her baseline oxygenation between 88 and 90% per patient She uses 2 L as needed She received 40 mg of IV Lasix I did not administer fluid resuscitation as she appears to be mildly volume overloaded and is scheduled for dialysis tomorrow Her last dialysis was on Monday of this week, her electrolytes are stable Her EKG is stable for her She is in no acute distress but has needed several doses of pain medication She did receive Pepcid, 40 mg of Protonix, CT scan does not show evidence of varices We did call [facility], and numerous larger facilities that may have access to dialysis available and they were unable to accept this patient, [facility] in [facility] has dialysis and is willing to accept this patient for observation and possible intervention I spoke with Dr. Dos Santos and Dr. Padilla who are willing to accept this patient, she is remained hemodynamically stable, repeat CBC has a hemoglobin that is decreased from 9.7-9.1, her pulse rate remains stable, she is fully alert and oriented She has not needed any additional intervention at this time She did take her 81 mg of aspirin today, we will hold further dosing of this She also did take an ibuprofen today, she was encouraged to not use this medication again She thinks that her last endoscopy was in 2013 or , she states she has not had endoscopy since that time. Medical Records Medical records reviewed: Yes I reviewed the patient's medical records. Lab Data Lab results reviewed: Yes I reviewed the patient's lab results. HPI General Date/Time Provider Initiated Documentation: 07/07/22 16:09. HPI Narrative: This complex 56-year-old female with chronic kidney disease, dialysis dependent, COPD tricuspid regurgitation, psoriasis, aortic valve replacement, hypertension presents with report of epigastric pain and black tarry stools which started approximately 2 days ago. Last dialysis was yesterday. Denies any new shortness of breath. Was treated in this facility for COPD exacerbation and currently on prednisone. Has been taking ibuprofen for the discomfort for epigastric pain. History of bleeding ulcers in the past. Denies any alcohol consumption currently. Denies any fevers or chills. Denies any radiation of pain in her chest discomfort. Has had 3 dark tarry stools today per patient. Related Data Home Medications Medication Instructions Recorded Confirmed aspirin 81 mg chewable tablet 81 mg PO DAILY 05/24/16 07/07/22 albuterol sulfate 90 mcg/actuation 2 puff inhalation Q4H PRN 07/26/17 07/07/22 aerosol inhaler (ProAir HFA) inhalational spacing device 01/26/19 07/07/22 (Aerochamber MV spacer) meclizine 12.5 mg tablet 12.5 mg PO PRN PRN 03/18/19 07/07/22 omeprazole 40 mg capsule,delayed 40 mg PO BID 03/18/19 07/07/22 release atorvastatin 40 mg tablet 20 mg PO DAILY 10/24/19 07/07/22 albuterol sulfate 2.5 mg/3 mL 2.5 mg (3 mL) inhalation Q6H PRN 02/16/21 07/07/22 (0.083 %) solution for nebulization shortness of breath or wheezing #3 mL tiotropium bromide 18 mcg capsule 1 cap inhalation DAILY #1 inh 02/16/21 07/07/22 with inhalation device (Spiriva with HandiHaler) minoxidil 2.5 mg tablet 5 mg PO QHS 01/21/22 07/07/22 ondansetron HCl 4 mg tablet 4 mg PO ONCE PRN nausea and 02/08/22 07/07/22 vomiting #1 tab ipratropium 0.5 mg-albuterol 3 mg 3 ml inhalation Q4H PRN #180 mL 03/01/22 07/07/22 (2.5 mg base)/3 mL nebulization soln calcitriol 1 mcg/mL intravenous 1 mcg intraperitoneal 1XD 04/13/22 07/07/22 solution diphenhydramine HCl 25 mg tablet 25 mg PO PRN PRN 04/13/22 07/07/22 loperamide 2 mg capsule 2 mg PO PRN PRN 04/13/22 07/07/22 sucralfate 1 gram tablet 1 g PO DAILY 04/13/22 07/07/22 sevelamer carbonate 800 mg tablet 400 mg PO TID 04/19/22 07/07/22 vitamin B complex-vitamin C-folic 1 tab PO DAILY 04/19/22 07/07/22 acid 0.8 mg tablet benzonatate 100 mg capsule 100 mg PO TID PRN cough #20 caps 05/19/22 07/07/22 doxycycline hyclate 100 mg capsule 100 mg PO BID #10 caps 05/19/22 07/07/22 prednisone 20 mg tablet 40 mg PO DAILY #6 tabs 05/19/22 07/07/22 levofloxacin 750 mg tablet 750 mg PO DAILY #5 tabs 06/02/22 07/07/22 prednisone 50 mg tablet 50 mg PO DAILY 5 days #5 tabs 06/07/22 07/07/22 codeine 10 mg-guaifenesin 100 mg/5 See Rx Instructions PO Q6H PRN 06/14/22 07/07/22 mL oral liquid cough #120 mL levofloxacin 250 mg tablet 250 mg PO DAILY 10 days #10 tabs 07/04/22 07/07/22 prednisone 10 mg tablet 10 mg PO DIRECTED #30 tabs 07/04/22 07/07/22 Previous Rx's Medication Instructions Recorded albuterol sulfate 2.5 mg/3 mL 2.5 mg (3 mL) inhalation Q6H PRN 02/16/21 (0.083 %) solution for nebulization shortness of breath or wheezing #3 mL tiotropium bromide 18 mcg capsule 1 cap inhalation DAILY #1 inh 02/16/21 with inhalation device (Spiriva with HandiHaler) ondansetron HCl 4 mg tablet 4 mg PO ONCE PRN nausea and 02/08/22 vomiting #1 tab ipratropium 0.5 mg-albuterol 3 mg 3 ml inhalation Q4H PRN #180 mL 03/01/22 (2.5 mg base)/3 mL nebulization soln benzonatate 100 mg capsule 100 mg PO TID PRN cough #20 caps 05/19/22 doxycycline hyclate 100 mg capsule 100 mg PO BID #10 caps 05/19/22 prednisone 20 mg tablet 40 mg PO DAILY #6 tabs 05/19/22 levofloxacin 750 mg tablet 750 mg PO DAILY #5 tabs 06/02/22 prednisone 50 mg tablet 50 mg PO DAILY 5 days #5 tabs 06/07/22 codeine 10 mg-guaifenesin 100 mg/5 See Rx Instructions PO Q6H PRN 06/14/22 mL oral liquid cough #120 mL levofloxacin 250 mg tablet 250 mg PO DAILY 10 days #10 tabs 07/04/22 prednisone 10 mg tablet 10 mg PO DIRECTED #30 tabs 07/04/22 Allergies Allergy/AdvReac Type Severity Reaction Status Date / Time cephalexin monohydrate Allergy Severe trouble Verified 07/07/22 15:10 [From Keflex] breathing colchicine Allergy Verified 07/07/22 15:10 allopurinol AdvReac Intermediate gout Verified 07/07/22 15:10 breakout erythromycin base AdvReac Intermediate gout Verified 07/07/22 15:10 breakout acetaminophen [From Percocet] AdvReac Unverified 07/07/22 15:10 oxycodone [From Percocet] AdvReac Unverified 07/07/22 15:10 General Stated Complaint: Abd Prob AWA: 3 PFSH All Active Problems (Updated 07/07/22 @ 21:26 by SHIRA Pepper) Acute GI bleeding (Acute) Anemia (Chronic) Right upper quadrant abdominal pain (Acute) Acute bronchitis (Acute) Neck pain (Acute) COPD exacerbation (Acute) Fever (Acute) Open abdominal wall wound (Acute) ESRD on dialysis (Chronic) On hemodialysis currently using central catheter-nephrology at [facility] receives dialysis at 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 Hemorrhage of arteriovenous fistula (Acute) Ventral hernia (Acute) Hypertension (Chronic) Aortic valve replaced (Acute) Bovine-with [facility] Personal history of nicotine dependence (Acute) 02/2021 Tobacco abuse (Acute) Lung nodule, solitary (Acute) Hemoptysis (Acute) Medical History Axillary lymphadenopathy Bleeding hemorrhoids (01/08/13) rectal bleeding (colon[place] [facility] [place] internal hemorrhoids and diverticuli) Cannabis dependence CVD (cardiovascular disease) Cyst of ovary (08/20/12) Depression (09/14/12) Diverticulitis of large intestine without perforation or abscess with bleeding Essential hypertension (01/16/13) severe and labile Gastroesophageal reflux disease with esophagitis (02/03/15) Hyperlipidemia Hyperparathyroidism, unspecified (02/09/11) 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[facility] Macular degeneration of left eye (~10/17/19) [facility] Nail dystrophy Recurrent urinary tract infection Right heart failure Secondary hyperparathyroidism (of renal origin) Umbilical hernia repaired 1995,1997,2001,2003 Upper GI bleed (05/17/14) 05/15/14 [facility] EGD, HH, esophagitis, gastric ulcer and duodenitis Surgical History Abdominal hysterectomy (~2006) s/p hyst, but cervix still present and needs yearly PAP due to transplant H/O aortic valve replacement History of kidney transplant Repair of umbilical hernia 1995,1997,2001,2003 TRANSPLANT, KIDNEY (~1997) LEFT Family History Mother Essential hypertension Personal history of malignant neoplasm KIDNEY Heart disease Pulmonary emphysema Father Personal history of malignant neoplasm Pulmonary emphysema Brother Hyperlipidemia Brother Hyperlipidemia Brother No problems noted. Social History Smoking/Tobacco Use Status: Current every day Tobacco Type: cigarettes Smoking risk assessment performed?: Yes Alcohol Intake: former Drug use: Daily Substance use type: marijuana Details: mostly edibles Current gender identity: female Do you feel safe at home: Yes Do you feel safe in your relationship?: Yes Exam Const General: cooperative and no acute distress Orientation: alert and oriented x3 Other: Very chronically ill-appearing HENMT Other: Moist mucous membranes Eyes Pupils: PERRL Resp Effort & Inspection: normal respiratory effort Auscultation: wheezes Cardio Rate: regular rate Rhythm: regular rhythm GI Other: Mild epigastric tenderness, no rebound or guarding, mild distention Skin General skin exam: no rashes or lesions noted Neuro General: patient alert and patient oriented x3 Cranial Nerves: tongue midline Extrem Other: 2+ edema to bilateral lower extremities, neurovascularly intact Course Vital Signs Vital signs: Vital Signs Temperature 37.0 C 07/07/22 16:06 Pulse 80 07/07/22 16:06 Respiratory Rate 18 07/07/22 16:06 Blood Pressure 128/44 L 07/07/22 16:06 Pulse Oximetry 94 07/07/22 16:06 Temperature 37.0 C 07/07/22 16:06 Temperature Source Skin 07/07/22 16:06 Pulse 80 07/07/22 16:06 Respiratory Rate 18 07/07/22 16:06 Blood Pressure 128/44 L 07/07/22 16:06 Blood Pressure Position Sitting 07/07/22 16:06 Pulse Oximetry 94 07/07/22 16:06 Oxygen Delivery Method Room Air 07/07/22 16:06 Oxygen Flow Rate 0 07/07/22 16:06 Pain Level 8 07/07/22 16:33 Comment took ibuprofen at noon takes 81mg aspirin daily 07/07/22 16:06 Lab/Test Results Lab/Test Results: Laboratory Tests Range/Units 07/07/22 16:35 WBC (4.4-10.8) 10^3/uL 4.59 RBC (3.93-5.22) 10^6/uL 3.28 L Hgb (11.2-15.7) g/dL 9.7 L Hct (36.0-46.0) % 30.5 L MCV (80-95) fL 93 MCH (27.0-33.0) pg 29.6 MCHC (32.0-36.0) % 31.8 L RDW (11.7-14.6) % 15.8 H Plt Count (130-400) 10^3/uL 162 MPV (8.0-11.0) fL 12.5 H Immature Gran % 0.9 Neutrophils % 85.6 Lymphocytes % 8.1 Monocytes % 5.2 Eosinophils % 0.0 Basophils % 0.2 Nucleated RBC % (0.0-0.3) % 0.0 Absolute Neutrophils (1.2-6.7) 10^3/uL 3.93 Absolute Lymphocytes (1.2-3.4) 10^3/uL 0.37 L Absolute Monocytes (0.1-0.8) 10^3/uL 0.24 Absolute Eosinophils (0.0-0.7) 10^3/uL 0.00 Absolute Basophils (0.0-0.2) 10^3/uL 0.01
[2022-07-07] MEDS: Albuterol/Ipratropium 3 ML UPD VIAL UPD (17:57)
--- NOTE | 2022-07-07 18:20 | DI.VRAD_ITS ---
PROCEDURE INFORMATION: Exam: CT Chest Without Contrast; Diagnostic Exam date and time: 07/07/2022 5:07 PM Age: 56 years old Clinical indication: Other: Epigastric and chest pain, gi bleed, ulcer TECHNIQUE: Imaging protocol: Diagnostic computed tomography of the chest without contrast. COMPARISON: CT CHEST/ABD/PEL W 03/02/2021 15:16 FINDINGS: Limitations: Lack of contrast. Lungs: Emphysematous changes of lung knox. Pleural spaces: Unremarkable. No pneumothorax. No pleural effusion. Heart: Cardiomegaly. Stable prosthetic cardiac valves compared with prior study. Coronary arteries: Dense calcified coronary arteries. Lymph nodes: Stable axillary lymph nodes compared with prior study. Mediastinal and hilar adenopathy. Vasculature: Atherosclerotic disease. Enlarged main pulmonary artery measuring 3.9 cm. Enlarged right pulmonary artery measuring 3.6 cm. Normal appearance of the left pulmonary artery. Diaphragm: Hiatal hernia. Bones/joints: Sternotomy wires and mediastinal clips in place. Multilevel degenerative changes of the spine. Soft tissues: Anasarca. IMPRESSION: 1. Limitations as discussed above. 2. Enlarged main pulmonary artery and right pulmonary artery. 3. Cardiomegaly. Coronary artery disease. Prosthetic valves. 4. Atherosclerotic disease. 5. Mediastinal and hilar adenopathy. 6. Multiple additional findings as discussed above PROCEDURE INFORMATION: Exam: CT Abdomen And Pelvis Without Contrast Exam date and time: 07/07/2022 5:07 PM Age: 56 years old Clinical indication: Other: Epigastric and chest pain, gi bleed, ulcer TECHNIQUE: Imaging protocol: Computed tomography of the abdomen and pelvis without contrast. COMPARISON: CT ABDOMEN PELVIS WO 28/03/2022 11:02 FINDINGS: Limitations: Lack of contrast. Liver: Hepatic steatosis. Nodular contour of the liver suggestive of cirrhosis. Gallbladder and bile ducts: Cholelithiasis. Pancreas: Limited visualization of the pancreas secondary to lack of contrast and bowel loops. Spleen: Splenomegaly. Adrenal glands: Normal. No mass. Kidneys and ureters: Severe bilateral renal atrophy. Stomach and bowel: See Pancreas finding. Thickened gastric wall similar to prior study. Diverticulosis similar to prior study. Appendix: The appendix is not identified. Intraperitoneal space: Ascites similar to prior study. Vasculature: Advanced atherosclerotic disease. Dense vascular calcification of the splenic artery similar to prior study. Lymph nodes: Bilateral inguinal adenopathy. Inguinal adenopathy. Urinary bladder: Decompressed urinary bladder. Reproductive: Unremarkable as visualized. Bones/joints: Multilevel degenerative changes of the spine. Soft tissues: Anasarca. Cachexia. Postsurgical changes midline abdominal wall. Postsurgical changes of the left lower anterior pelvic wall. IMPRESSION: 1. Limitations as discussed above. 2. Cirrhotic liver. Ascites. Splenomegaly. 3. Cholelithiasis. 4. Anasarca. Cachexia. 5. Diverticulosis. 6. Bilateral inguinal adenopathy. 7. Advanced atherosclerotic disease. 8. Multiple additional findings as discussed above. Dictated and Authenticated by: Mel Vallejo MD. Ordering:FELA Broussard MD
[2022-07-07 18:33] LABS: ALT 42 U/L (14-59); AST 38 U/L (15-37); Albumin 3.2 g/dL (3.4-5.0); Alkaline Phosphatase 248 U/L (46-116); Anion Gap 8.5 mmol/L (3-11); BUN 56 mg/dL (7-18); Bilirubin, Total 0.5 mg/dL (0.2-1.0); CO2 27.5 mmol/L (21.0-32.0); Calcium 7.4 mg/dL (8.5-10.1); Chloride 101 mmol/L (98-107); Estimated GFR 11.04 (mL/min/1.73m2); Glucose 101 mg/dL (74-106); Lipase 36 U/L (16-77); Potassium 4.7 mmol/L (3.5-5.1); Sodium 137 mmol/L (136-145); Total Protein 6.1 g/dL (6.4-8.2)
[2022-07-07 18:35] LABS: CREATININE 4.4 mg/dL (0.55-1.02)
[2022-07-07 19:34] LABS: Troponin I < 50 ng/L (<or=60)
[2022-07-07] MEDS: FAMOTIDINE 20 MG in Normal Saline 100 ML 400 MG IVPB (19:40)
[2022-07-07 19:53] LABS: Abs Immature Grans 0.03 10^3/uL (0.0-0.06); Absolute Basophil Count 0.01 10^3/uL (0.0-0.2); Absolute Lymphocyte Count 0.49 10^3/uL (1.2-3.4); Absolute Monocyte Count 0.34 10^3/uL (0.1-0.8); Absolute Neutrophil Count 3.57 10^3/uL (1.2-6.7); Basophils % 0.2; HCT 29.3 % (36.0-46.0); HGB 9.1 g/dL (11.2-15.7); Immature Grans % 0.7; MCH 28.9 pg (27.0-33.0); MCHC 31.1 % (32.0-36.0); MCV 93 fL (80-95); MPV 11.9 fL (8.0-11.0); Monocytes % 7.7; Neutrophils % 80.4; Platelet Count 150 10^3/uL (130-400); RBC 3.15 10^6/uL (3.93-5.22); RDW 15.7 % (11.7-14.6); RDW-SD 53.1 fL; WBC 4.44 10^3/uL (4.4-10.8)
--- NOTE | 2022-07-07 19:55 | NUR.NOTE ---
Nursing Note:pt assisted to commode, only passed vicki, assisted back into the bed, pt asking for some pain meds. plan is to tx pt to [facility]
== END 2022-07-07 21:31 | disposition short-term general hospital (02) ==
PROVIDERS: Emergency Provider Physician Assistant; PCP Family Medicine
DX: K92.2 Gastrointestinal hemorrhage, unspecified (principal); N18.6 End stage renal disease; J44.9 Chronic obstructive pulmonary disease, unspecified; K70.30 Alcoholic cirrhosis of liver without ascites; D63.1 Anemia in chronic kidney disease; Z95.4 Presence of other heart-valve replacement; Z79.82 Long term (current) use of aspirin; Z99.2 Dependence on renal dialysis; R79.89 Other specified abnormal findings of blood chemistry; I11.0 Hypertensive heart disease with heart failure; I50.9 Heart failure, unspecified; Z86.73 Personal history of transient ischemic attack (TIA), and cerebral infarction without residual deficits
CPT/HCPCS: 36415; 71250; 80053; 83690; 86850; 86900; 86901; 93005; 96365; 99285; 74176; 84484; 85025; 93010; J2270; J7620

== ENCOUNTER 2022-08-01 05:58 | Emergency (ER) | payer OTHER, SELFPAY ==
--- NOTE | 2022-08-01 05:45 | RT.EKG_ITS ---
APPROVED REPORT Exam: Resting ECG Reason for Exam: short of breath Patient Location: E HR:88 bpm ECG Measurements Heart Rate 88 AXIS MI 204 P 47 QRSd 163 QRS 71 QT 443 T 14 QTc 537 Conclusion Sinus rhythm...normal P axis, V-rate 60- 99 Borderline prolonged MI interval...MI >202, V-rate 50- 90 Right bundle branch block...QRSd>120, terminal axis(90,270) ST depr, consider ischemia, anterolateral lds...ST <-0.10mV, I aVL V2-V6 Physician:no stemi, unchagned from prior ekg on 07/07/22
[2022-08-01 05:58] VITALS: BP 180/102; PULSE 67; RESP 18; TEMP 36.1; O2SAT 100
--- NOTE | 2022-08-01 06:00 | DI.RAD_ITS ---
Exam(s) XR PORTABLE CHEST AP EXAM: XR PORTABLE CHEST AP CLINICAL HISTORY: sob, copd TECHNIQUE: 2D digital imaging was performed of the chest. One image was obtained. An AP view was ob tained. COMPARISON: CR XR CHEST 2V PA LATERAL from 10/29/2021 CR XR PORTABLE CHEST AP from 07/04/2022 FINDINGS: MEDIASTINUM: Normal. HEART: Stable cardiomegaly. Cardiac valve prostheses are again seen. PULMONARY VASCULATURE: There is prominent pulmonary vasculature in the hilum which may represent prom inent pulmonary arteries and pulmonary artery hypertension. LUNGS: The lungs are hyperinflated suggesting underlying COPD. No focal consolidating infiltrates ar e present. PLEURAL SPACE: No pleural effusion or pneumothorax. BONE:Within normal limits for the patient's age. Sternal wires are in place. OTHER FINDINGS:Normal. IMPRESSION: No acute pulmonary findings. DATA REPOSITORY: RADIATION DOSE DELIVERED:
[2022-08-01] MEDS: methylPREDNISolone SUCC 125 MG VIAL IVP (06:14)
[2022-08-01] MEDS: Albuterol/Ipratropium 3 ML UPD VIAL UPD (06:14)
[2022-08-01 06:23] LABS: Abs Immature Grans 0.02 10^3/uL (0.0-0.06); Absolute Basophil Count 0.06 10^3/uL (0.0-0.2); Absolute Eosinophil Count 0.75 10^3/uL (0.0-0.7); Absolute Lymphocyte Count 0.56 10^3/uL (1.2-3.4); Absolute Monocyte Count 0.56 10^3/uL (0.1-0.8); Absolute Neutrophil Count 3.04 10^3/uL (1.2-6.7); Basophils % 1.2; HGB 10.3 g/dL (11.2-15.7); Immature Grans % 0.4; Lymphocytes % 11.2; MCH 29.3 pg (27.0-33.0); MCHC 31.2 % (32.0-36.0); MCV 94 fL (80-95); MPV 11.4 fL (8.0-11.0); Monocytes % 11.2; Platelet Count 122 10^3/uL (130-400); RBC 3.51 10^6/uL (3.93-5.22); RDW 15.6 % (11.7-14.6); WBC 4.99 10^3/uL (4.4-10.8)
--- NOTE | 2022-08-01 06:25 | ED.GENADUL_ITS ---
Discharge Plan Disposition Patient Disposition: Home Condition: Good Discharge Details Clinical Impression: Acute exacerbation of chronic obstructive pulmonary disease Primary Care Provider: Chano Neves ED Provider: Bhanu Mayorga Home Meds and New Rx's Prescriptions: New prednisone 50 mg tablet 50 mg PO DAILY Qty: 5 0RF Discontinued doxycycline hyclate 100 mg capsule 100 mg PO BID Qty: 10 0RF prednisone 20 mg tablet 40 mg PO DAILY Qty: 6 0RF prednisone 10 mg tablet 10 mg PO DIRECTED Qty: 30 0RF Hold Instructions: Changed by Provider Rx Instructions: see taper instructions3 4 tab x 3 day, 3 tab x 3 days, 2 tab x 3 days, 1 tab x 3 days levofloxacin 250 mg tablet 250 mg PO DAILY 10 Days Qty: 10 0RF Hold Instructions: Changed by Provider No Action ondansetron HCl 4 mg tablet 4 mg PO ONCE PRN (Reason: nausea and vomiting) Qty: 1 0RF Spiriva with HandiHaler 18 mcg capsule, w/inhalation device 1 cap inhalation DAILY Qty: 1 0RF Rx Instructions: puncture 1 cap using device; one dose = 2 inhalations from [facility] albuterol sulfate 2.5 mg /3 mL (0.083 %) solution for nebulization 2.5 mg inhalation Q6H PRN (Reason: shortness of breath or wheezing) Qty: 3 0RF Rx Instructions: VA B complex-vitamin C-folic acid 0.8 mg tablet 1 tab PO DAILY sevelamer carbonate 800 mg tablet 400 mg PO TID Rx Instructions: must administer with a meal/food codeine-guaifenesin 10-100 mg/5 mL liquid See Rx Instructions PO Q6H PRN (Reason: cough) Qty: 120 0RF Rx Instructions: one to two teaspoons PO every 6 hours PRN cough ; aspirin 81 MG tablet,chewable 81 mg PO DAILY albuterol sulfate [ProAir HFA] 8.5 GM HFA aerosol inhaler 2 puff Inhalation Q4H PRN atorvastatin 40 mg tablet 20 mg PO DAILY minoxidil 2.5 mg tablet 5 mg PO QHS omeprazole 40 mg Capsule,Delayed Release(Dr/Ec) 40 mg PO BID meclizine 12.5 mg Tablet 12.5 mg PO PRN PRN benzonatate 100 mg capsule 100 mg PO TID PRN (Reason: cough) Qty: 20 0RF (DME) Aerochamber MV Spacer MISCELLANEOUS ipratropium-albuterol 0.5 mg-3 mg(2.5 mg base)/3 mL solution for nebulization 3 ml inhalation Q4H PRNQty: 180 0RF sucralfate 1 gram tablet 1 g PO DAILY Patient Comments: TAKE 1 TABLET BY MOUTH FOUR TIMES DAILY BEFORE MEALS AND AT BEDTIME loperamide 2 mg Capsule 2 mg PO PRN PRN diphenhydramine HCl 25 mg Tablet 25 mg PO PRN PRN calcitriol 1 mcg/mL Solution 1 mcg intraperitoneal 1XD Discharge Instructions Instructions: COPD (Chronic Obstructive Pulmonary Disease) (ED) Additional Instructions: At this time you have evidence of a COPD exacerbation. Please take the steroid prednisone as directed. Please make sure to take the medicine with food and with Tums or Maalox to help reduce the chance of ulcers. It is been sent to your pharmacy on file. Please continue to take your inhalers and use your nebulizer every 6 hours for the next 2 to 3 days. If you notice any worsening of your symptoms, or any new symptoms such as vomiting, diarrhea, fever, chills, shortness of breath, chest pain, numbness, weakness, or fainting , please return immediately to the emergency department for reevaluation. Please follow up with your primary care provider as soon as possible for reassessment and reevaluation. As always, it was a pleasure participating in your medical care today. Referrals: Chano Neves MD [Primary Care Provider] - Medical Decision Making 57-year-old female with a past medical history of previous GI bleeds, COPD on a baseline of 2 L at all times with a normal oxygen saturation between 88 and 91, aortic valve replacement, renal failure on dialysis Monday, congestive heart failure, who presents today for evaluation of shortness of breath. Patient states that since last night she has been quite short of breath. She developed some chest tightness with her breathing last evening, and called EMS early this morning. She denies any cough fever or chills. She denies any numbness tingling or weakness. EMS did give her breathing treatment and this notably improved her symptoms per the patient. She had not taken a breathing treatments throughout the night. She denies any other complaints at this time. She states that she feels much better currently. She denies any tearing or ripping sensation. She does not urinate. She is due for dialysis this morning. Exam demonstrates diffuse wheezes, however she is saturating at 100% on 2 L currently. No significant pitting edema. Bedside ultrasound demonstrates no significant B-lines. EKG shows a notable right bundle branch block but unchanged from prior EKG. No evidence of STEMI. Concern for COPD exacerbation. Will give Solu-Medrol, and an additional breathing treatment, with expected plan for discharge if tolerable. 7:08 AM Patient states she feels much better after the breathing treatments. Oxygenation remains excellent. Chest x-ray shows mild fluid congestion, no evidence of large pneumonia on my inspection. Still pending V rad read. Hemog lobin stable, electrolytes stable. proBNP greater than 35,000, however this appears to be her baseline. I do feel that the patient needs her regular daily dialysis, and as her COPD component is notably improved at this time I do feel that she is appropriate for discharge with her stable respiratory status. Patient will be discharged to dialysis. We will give a 5-day burst of prednisone. Will recommend taking this with Tums and Pepto-Bismol to help reduce any potential ulcers. Discussed red flags for which to return. Patient will have to go back with the EMS secondary to her not having her oxygen tank at this time. She remains oxygen dependent at baseline. HPI General Date/Time Provider Initiated Documentation: 08/01/22 06:03 . HPI Narrative: 57-year-old female with a past medical history of previous GI bleeds, COPD on a baseline of 2 L at all times with a normal oxygen saturation between 88 and 91, aortic valve replacement, renal failure on dialysis Monday, congestive heart failure, who presents today for evaluation of shortness of breath. Patient states that since last night she has been quite short of breath. She developed some chest tightness with her breathing last evening, and called EMS early this morning. She denies any cough fever or chills. She denies any numbness tingling or weakness. EMS did give her breathing treatment and this notably improved her symptoms per the patient. She had not taken a breathing treatments throughout the night. She denies any other complaints at this time. She states that she feels much better currently. She denies any tearing or ripping sensation. She does not urinate. She is due for dialysis this morning. Related Data Home Medications Medication Instructions Recorded Confirmed aspirin 81 mg chewable tablet 81 mg PO DAILY 05/24/16 07/07/22 albuterol sulfate 90 mcg/actuation 2 puff inhalation Q4H PRN 07/26/17 07/07/22 aerosol inhaler (ProAir HFA) inhalational spacing device 01/26/19 07/07/22 (Aerochamber MV spacer) meclizine 12.5 mg tablet 12.5 mg PO PRN PRN 03/18/19 07/07/22 omeprazole 40 mg capsule,delayed 40 mg PO BID 03/18/19 07/07/22 release atorvastatin 40 mg tablet 20 mg PO DAILY 10/24/19 07/07/22 albuterol sulfate 2.5 mg/3 mL 2.5 mg (3 mL) inhalation Q6H PRN 02/16/21 07/07/22 (0.083 %) solution for nebulization shortness of breath or wheezing #3 mL tiotropium bromide 18 mcg capsule 1 cap inhalation DAILY #1 inh 02/16/21 07/07/22 with inhalation device (Spiriva with HandiHaler) minoxidil 2.5 mg tablet 5 mg PO QHS 01/21/22 07/07/22 ondansetron HCl 4 mg tablet 4 mg PO ONCE PRN nausea and 02/08/22 07/07/22 vomiting #1 tab ipratropium 0.5 mg-albuterol 3 mg 3 ml inhalation Q4H PRN #180 mL 03/01/22 07/07/22 (2.5 mg base)/3 mL nebulization soln calcitriol 1 mcg/mL intravenous 1 mcg intraperitoneal 1XD 04/13/22 07/07/22 solution diphenhydramine HCl 25 mg tablet 25 mg PO PRN PRN 04/13/22 07/07/22 loperamide 2 mg capsule 2 mg PO PRN PRN 04/13/22 07/07/22 sucralfate 1 gram tablet 1 g PO DAILY 04/13/22 07/07/22 sevelamer carbonate 800 mg tablet 400 mg PO TID 04/19/22 07/07/22 vitamin B complex-vitamin C-folic 1 tab PO DAILY 04/19/22 07/07/22 acid 0.8 mg tablet benzonatate 100 mg capsule 100 mg PO TID PRN cough #20 caps 05/19/22 07/07/22 codeine 10 mg-guaifenesin 100 mg/5 See Rx Instructions PO Q6H PRN 06/14/22 07/07/22 mL oral liquid cough #120 mL prednisone 50 mg tablet 50 mg PO DAILY #5 tabs 08/01/22 Previous Rx's Medication Instructions Recorded albuterol sulfate 2.5 mg/3 mL 2.5 mg (3 mL) inhalation Q6H PRN 02/16/21 (0.083 %) solution for nebulization shortness of breath or wheezing #3 mL tiotropium bromide 18 mcg capsule 1 cap inhalation DAILY #1 inh 02/16/21 with inhalation device (Spiriva with HandiHaler) ondansetron HCl 4 mg tablet 4 mg PO ONCE PRN nausea and 02/08/22 vomiting #1 tab ipratropium 0.5 mg-albuterol 3 mg 3 ml inhalation Q4H PRN #180 mL 03/01/22 (2.5 mg base)/3 mL nebulization soln benzonatate 100 mg capsule 100 mg PO TID PRN cough #20 caps 05/19/22 codeine 10 mg-guaifenesin 100 mg/5 See Rx Instructions PO Q6H PRN 06/14/22 mL oral liquid cough #120 mL prednisone 50 mg tablet 50 mg PO DAILY #5 tabs 08/01/22 Allergies Allergy/AdvReac Type Severity Reaction Status Date / Time cephalexin monohydrate Allergy Severe trouble Verified 07/07/22 15:10 [From Keflex] breathing colchicine Allergy Verified 07/07/22 15:10 allopurinol AdvReac Intermediate gout Verified 07/07/22 15:10 breakout erythromycin base AdvReac Intermediate gout Verified 07/07/22 15:10 breakout acetaminophen [From Percocet] AdvReac Unverified 07/07/22 15:10 oxycodone [From Percocet] AdvReac Unverified 07/07/22 15:10 General Stated Complaint: SOB AWA: 3 Review of Systems All systems reviewed & are unremarkable except as noted in HPI and below PFSH All Active Problems (Updated 08/01/22 @ 06:47 by Bhanu Mayorga DO) Acute GI bleeding (Acute) Anemia (Chronic) Acute exacerbation of chronic obstructive pulmonary disease (Acute) Right upper quadrant abdominal pain (Acute) Acute bronchitis (Acute) Neck pain (Acute) Fever (Acute) Open abdominal wall wound (Acute) ESRD on dialysis (Chronic) On hemodialysis currently using central catheter-nephrology at [facility] receives dialysis at [facility] H region Depression (Acute 08/28/14) Gallstones (Acute) COPD (chronic obstructive pulmonary disease) (Chronic) Pulmonary at [facility] Central venous catheter in place (Acute ~10/29/19) [facility], right subclavian-dialysis Tricuspid regurgitation (Acute) s/p tricuspid valve replacement 02/2020, bovine Cirrhosis, alcoholic (Acute) POLST (Physician Orders for Life-Sustaining Treatment) (Acute) COLST completed 02/13/2020, DNR/DNI. Hemorrhage of arteriovenous fistula (Acute) Ventral hernia (Acute) Hypertension (Chronic) Aortic valve replaced (Acute) Bovine-with [facility] Personal history of nicotine dependence (Acute) 02/2021 Tobacco abuse (Acute) Lung nodule, solitary (Acute) Hemoptysis (Acute) Medical History Axillary lymphadenopathy Bleeding hemorrhoids (01/08/13) rectal bleeding (colonoscopy [facility] 01/01/13 internal hemorrhoids and diverticuli) Cannabis dependence CVD (cardiovascular disease) Cyst of ovary (08/20/12) Depression (09/14/12) Diverticulitis of large intestine without perforation or abscess with bleeding Essential hypertension (01/16/13) severe and labile Gastroesophageal reflux disease with esophagitis (02/03/15) Hyperlipidemia Hyperparathyroidism, unspecified (02/09/11) 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[facility] Macular degeneration of left eye (~10/17/19) [facility] Nail dystrophy Recurrent urinary tract infection Right heart failure Secondary hyperparathyroidism (of renal origin) Umbilical hernia repaired 1995,1997,2001,2003 Upper GI bleed (05/17/14) 05/15/14 [facility] EGD, HH, esophagitis, gastric ulcer and duodenitis Surgical History Abdominal hysterectomy (~2006) s/p hyst, but cervix still present and needs yearly PAP due to transplant H/O aortic valve replacement History of kidney transplant Repair of umbilical hernia 1995,1997,2001,2003 TRANSPLANT, KIDNEY (~1997) LEFT Family History Mother Essential hypertension Personal history of malignant neoplasm KIDNEY Heart disease Pulmonary emphysema Father Personal history of malignant neoplasm Pulmonary emphysema Brother Hyperlipidemia Brother Hyperlipidemia Brother No problems noted. Social History Smoking/Tobacco Use Status: Current every day Tobacco Type: cigarettes Smoking risk assessment performed?: Yes Alcohol Intake: former Drug use: Daily Substance use type: marijuana Details: mostly edibles Current gender identity: female Do you feel safe at home: Yes Do you feel safe in your relationship?: Yes Exam Narrative Exam Narrative: 1.Const: Well-nourished, Well-developed, appearing stated age 2.Eyes: PERRL, no conjunctival injection, and symmetrical lids. 3.ENT: Atraumatic external nose and ears. Moist MM. Neck: Symmetric, trachea midline, No thyromegaly. 4.CVS: +S1/S2, No murmurs or gallops. Peripheral pulses 2+ and equal in all extremities. Brisk capillary refill in all extremities. 5.RESP: Fuhs wheezes throughout. No rhonchi or rales. 6.GI: Soft, Nontender/Nondistended, No hepatosplenomegaly. No guarding or rebound. 7.MSK: Normocephalic/Atraumatic, Extremities w/o deformity or ttp No cyanosis or clubbing, Normal movement of all extremities. Active AV fistula on the right with good palpable thrill. Left old AV fistula does demonstrate intermittent thrill. 8.Skin: Somewhat dark in color, warm, Dry. No rashes or lesions. 9.Neuro: senior support analyst II-XII grossly intact. Sensation grossly intact, no focal neurologic deficits. 10.Psych: (AAO) x3. Appropriate mood and affect Course Vital Signs Vital signs: Vital Signs Temperature 36.1 C L 08/01/22 05:58 Pulse 67 08/01/22 05:58 Respiratory Rate 18 08/01/22 05:58 Blood Pressure 180/102 H 08/01/22 05:58 Pulse Oximetry 100 08/01/22 05:58 Temperature 36.1 C L 08/01/22 05:58 Temperature Source Tympanic 08/01/22 05:58 Pulse 67 08/01/22 05:58 Respiratory Rate 18 08/01/22 05:58 Respiratory Effort Short of Breath 08/01/22 06:02 Respiratory Depth Normal 08/01/22 06:02 Respiratory Pattern Normal 08/01/22 06:02 Blood Pressure 180/102 H 08/01/22 05:58 Blood Pressure Position Supine 08/01/22 05:58 Pulse Oximetry 100 08/01/22 05:58 Oxygen Delivery Method Nasal Cannula 08/01/22 05:58 Oxygen Flow Rate 2 08/01/22 05:58 Pain Level 3 08/01/22 05:58 Lab/Test Results Lab/Test Results: Laboratory Tests Range/Units 08/01/22 06:20 WBC (4.4-10.8) 10^3/uL 4.99 RBC (3.93-5.22) 10^6/uL 3.51 L Hgb (11.2-15.7) g/dL 10.3 L Hct (36.0-46.0) % 33.0 L MCV (80-95) fL 94 MCH (27.0-33.0) pg 29.3 MCHC (32.0-36.0) % 31.2 L RDW (11.7-14.6) % 15.6 H Plt Count (130-400) 10^3/uL 122 L MPV (8.0-11.0) fL 11.4 H Immature Gran % 0.4 Neutrophils % 61.0 Lymphocytes % 11.2 Monocytes % 11.2 Eosinophils % 15.0 Basophils % 1.2 Nucleated RBC % (0.0-0.3) % 0.0 Absolute Neutrophils (1.2-6.7) 10^3/uL 3.04 Absolute Lymphocytes (1.2-3.4) 10^3/uL 0.56 L Absolute Monocytes (0.1-0.8) 10^3/uL 0.56 Absolute Eosinophils (0.0-0.7) 10^3/uL 0.75 H Absolute Basophils (0.0-0.2) 10^3/uL 0.06
[2022-08-01 06:45] LABS: ALT 20 U/L (14-59); AST 27 U/L (15-37); Alkaline Phosphatase 235 U/L (46-116); BUN 59 mg/dL (7-18); Bilirubin, Total 0.8 mg/dL (0.2-1.0); Calcium 8.3 mg/dL (8.5-10.1); Chloride 97 mmol/L (98-107); Glucose 89 mg/dL (74-106); Sodium 139 mmol/L (136-145); Total Protein 7.4 g/dL (6.4-8.2); Troponin I < 50 ng/L (<or=60)
[2022-08-01 06:46] LABS: NT-proBNP > 35000 pg/mL (<300)
[2022-08-01 06:47] LABS: CREATININE 7.7 mg/dL (0.55-1.02)
[2022-08-01 07:32] VITALS: BP 183/84; PULSE 64; RESP 18; O2SAT 96
--- NOTE | 2022-08-01 09:01 | DI.VRAD_ITS ---
PROCEDURE INFORMATION: Exam: XR Chest Exam date and time: 08/01/2022 6:37 AM Age: 57 years old Clinical indication: Shortness of breath; Prior surgery; Surgery date: 6+ months; Surgery type: Aortic and mitral valve replacement; Patient HX: SOB, copd TECHNIQUE: Imaging protocol: Radiologic exam of the chest. Views: 1 view. COMPARISON: 1. CT CHEST/ABD/PEL WO 07/07/2022 5:07 PM 2. CR XR PORTABLE CHEST AP 07/04/2022 11:16 AM 3. CR XR PORTABLE CHEST AP 06/07/2022 9:26 AM FINDINGS: Lungs: The lungs are again noted to be hyperinflated with flattening of the hemidiaphragms consistent with chronic obstructive pulmonary disease. There is no consolidation or overt pulmonary edema. The pulmonary vasculature does not appear significantly engorged. Pleural spaces: Unchanged minimal blunting of both costophrenic angles. No new pleural effusion or pneumothorax. Heart/Mediastinum: Moderate cardiomegaly with an enlarged main pulmonary artery. Cardiomediastinal contours are stable. A tricuspid valve prosthesis is noted. Bones/joints: Median sternotomy wires. IMPRESSION: 1. Findings consistent with chronic obstructive pulmonary disease. No new/acute abnormality. 2. Cardiomegaly and findings consistent with pulmonary arterial hypertension. Dictated and Authenticated by: Gwen Tenorio MD. Ordering:AMINATA Drummond MD
== END 2022-08-01 07:45 | disposition home or self-care (01) ==
PROVIDERS: Emergency Provider Student in an Organized Health Care Education/Training Program; PCP Family Medicine
DX: J44.1 Chronic obstructive pulmonary disease with (acute) exacerbation (principal); N19 Unspecified kidney failure; Z95.2 Presence of prosthetic heart valve; R06.02 Shortness of breath; R07.89 Other chest pain; R06.2 Wheezing
CPT/HCPCS: 80053; 93005; 96374; 99284; 71045; 83880; 84484; 85025; 93010; J2930; J7620

== ENCOUNTER 2022-08-07 19:20 | Emergency (ER) | payer OTHER, SELFPAY ==
[2022-08-07] VITALS (18 sets, daily range): BP systolic 165–231; BP diastolic 81–97; PULSE 80–98; RESP 10–22; O2SAT 92–100
--- NOTE | 2022-08-07 19:15 | DI.RAD_ITS ---
Exam(s) XR PORTABLE CHEST AP EXAM: XR PORTABLE CHEST AP CLINICAL HISTORY: SOB. TECHNIQUE: 2D digital imaging was performed. COMPARISON: CR,XR XR PORTABLE CHEST AP from 08/01/2022 FINDINGS: Single AP portable view. Sternotomy wires again noted. Cardiomegaly and prosthetic aortic valve again noted. Pulmonary artery segments again noted be prominent. No new infiltrates mild blunting of the costophrenic angles may indicate small pleural effusions. IMPRESSION: Findings as above. If clinically indicated follow-up CT scan can be performed. Cardiomegaly and probable element of pulmonary arterial hypertension. Also sternotomy wires and pros thetic cardiac valve the again noted. DATA REPOSITORY: RADIATION DOSE DELIVERED:
--- NOTE | 2022-08-07 19:15 | RT.EKG_ITS ---
APPROVED REPORT Exam: Resting ECG Reason for Exam: SOB Patient Location: E HR:105 bpm ECG Measurements Heart Rate 105 AXIS DE 173 P -7 QRSd 161 QRS 68 QT 370 T 5 QTc 489 Conclusion Sinus tachycardia...rate> 99 Right bundle branch block...QRSd>120, terminal axis(90,270) motion artifact, no stemi
--- NOTE | 2022-08-07 19:18 | W.ED.GENAD ---
Discharge Plan Disposition Patient Disposition: Transfer-Acute Inpatient Care Specific Acute Inpt Facility: [facility] Condition: Critical Discharge Details Clinical Impression: Renal failure, Acute exacerbation of chronic obstructive pulmonary disease, Acute hyperkalemia Primary Care Provider: Chano Neves ED Provider: Lyn Márquez Home Meds and New Rx's Prescriptions: No Action ondansetron HCl 4 mg tablet 4 mg PO ONCE PRN (Reason: nausea and vomiting) Qty: 1 0RF ipratropium-albuterol 0.5 mg-3 mg(2.5 mg base)/3 mL solution for nebulization 3 ml inhalation Q4H PRN (Reason: shortness of breath or wheezing) Qty: 180 0RF Spiriva with HandiHaler 18 mcg capsule, w/inhalation device 1 cap inhalation DAILY Qty: 1 0RF Rx Instructions: puncture 1 cap using device; one dose = 2 inhalations from VA albuterol sulfate 2.5 mg /3 mL (0.083 %) solution for nebulization 2.5 mg inhalation Q6H PRN (Reason: shortness of breath or wheezing) Qty: 3 0RF Rx Instructions: VA B complex-vitamin C-folic acid 0.8 mg tablet 1 tab PO DAILY sevelamer carbonate 800 mg tablet 400 mg PO TID Rx Instructions: must administer with a meal/food codeine-guaifenesin 10-100 mg/5 mL liquid See Rx Instructions PO Q6H PRN (Reason: cough) Qty: 120 0RF Rx Instructions: one to two teaspoons PO every 6 hours PRN cough ; aspirin 81 MG tablet,chewable 81 mg PO DAILY albuterol sulfate [ProAir HFA] 8.5 GM HFA aerosol inhaler 2 puff Inhalation Q4H PRN atorvastatin 40 mg tablet 20 mg PO DAILY minoxidil 2.5 mg tablet 5 mg PO QHS omeprazole 40 mg Capsule,Delayed Release(Dr/Ec) 40 mg PO BID meclizine 12.5 mg Tablet 12.5 mg PO PRN PRN benzonatate 100 mg capsule 100 mg PO TID PRN (Reason: cough) Qty: 20 0RF prednisone 50 mg tablet 50 mg PO DAILY Qty: 5 0RF (DME) Aerochamber MV Spacer MISCELLANEOUS sucralfate 1 gram tablet 1 g PO DAILY Patient Comments: TAKE 1 TABLET BY MOUTH FOUR TIMES DAILY BEFORE MEALS AND AT BEDTIME loperamide 2 mg Capsule 2 mg PO PRN PRN diphenhydramine HCl 25 mg Tablet 25 mg PO PRN PRN calcitriol 1 mcg/mL Solution 1 mcg intraperitoneal 1XD Discharge Data Discharge Date/Time-TO BE ENTERED AT DEPARTURE: 08/08/22 02:19 Medical Decision Making 57-year-old female with a past medical history of end-stage renal disease on dialysis, COPD, CHF, tricuspid regurgitation alcoholic cirrhosis, tobacco abuse, GI bleed hypertension hyperlipidemia presents to the ER with a chief complaint of shortness of breath. Patient has used her rescue inhaler 4 times today and was given a DuoNeb by EMS prior to arrival. She is normally on 2 L of oxygen nasal cannula. She does have dialysis Monday. She was seen in the heart department approximately 6 days ago for similar complaint. Upon arrival patient has pursed lip breathing, is unable to speak in full sentences, she is 98% on 3 L nasal cannula, she is tripoding. She does have expiratory wheezes and diminished lung sounds bilaterally. Patient is DNR/DNI does receive home health and has been seen by palliative care last note noted to be in June. Patient is satting 100% on her normal 3 L nasal cannula, 125 Solu-Medrol ordered, albuterol neb and 0.5 of lorazepam IV. 2107: Patient appears much more comfortable at this time. She reports that she does live alone and home health has not been consistent in coming to see her. I will place her on the care management list for reeval with palliative care. I will place patient on additional tapering prednisone dose. Patient does have dialysis tomorrow. Labs are largely at baseline cardiac troponin within normal limits. COVID flu RSV is negative. Patient is requesting to be admitted, she does not feel she can function on her own at home anymore. She normally drives herself to Dialysis. [facility] Called regarding capacity for admission. They will call me back. 2144: [facility] is at capacity and have no beds. 2152: [facility] called, no bed capacity 2153: [facility], called, they will call me back. 2240: [place] [facility] [place] hospitalist Dr. Galan who does have capacity and he is accepting patient however he is recommending Bipap and control of her potassium with Kayexalate, Calcium, and insulin prior to acceptance for stability of patient transfer.. Will call back in 2 hours after repeat potassium. RT paged to set up BiPAP potassium lowering meds ordered including calcium gluconate, insulin, Kayexalate, D50. We will give another neb. 2345: Spoke with Dr. Horne at [facility] with MedSurg team who conditionally accepts patient to MedSurg or stepdown pending repeat VBG. He cannot accept the patient to MedSurg if she is on BiPAP she would then have to go to the ICU team. We will repeat a VBG at this time. Care is to be handed off to ER Dr. Mayorga pending repeat VBG and transfer. Medical Records Medical records reviewed: Yes I reviewed the patient's medical records. Imaging Data Radiologic Study: Imaging: X-Ray Radiologist's impression: Imaging protocol: Radiologic exam of the chest. Views: 1 view. COMPARISON: XR PORTABLE CHEST AP 08/01/2022 6:37 AM FINDINGS: Lungs: Lungs are mildly hyperexpanded, compatible chronic obstructive pulmonary physiologic changes. Minimal bibasilar ground-glass opacities, likely areas of atelectasis and/or pneumonitis. Pleural spaces: Minimal blunting of the costophrenic angles bilaterally, likely small bilateral pleural effusions and/or pleural thickening. Heart/Mediastinum: Cardiomegaly. Enlarged pulmonary arteries, compatible with pulmonary arterial hypertension. Bones/joints: Changes of prior sternotomy. IMPRESSION: Minimal bibasilar ground-glass opacities, likely areas of atelectasis and/or pneumonitis. Thank you for allowing us to participate in the care of your patient. Dictated and Authenticated by: Yaya Wei MD Lab Data Lab results reviewed: Yes I reviewed the patient's lab results. Labs: Laboratory Tests Range/Units 08/07/22 08/07/22 08/07/22 19:55 19:55 19:55 WBC (4.4-10.8) 10^3/uL 8.27 RBC (3.93-5.22) 10^6/uL 3.45 L Hgb (11.2-15.7) g/dL 10.1 L Hct (36.0-46.0) % 33.5 L MCV (80-95) fL 97 H MCH (27.0-33.0) pg 29.3 MCHC (32.0-36.0) % 30.1 L RDW (11.7-14.6) % 15.4 H Plt Count (130-400) 10^3/uL 162 MPV (8.0-11.0) fL 11.6 H Immature Gran % 1.8 Neutrophils % 76.9 Lymphocytes % 8.1 Monocytes % 8.6 Eosinophils % 4.1 Basophils % 0.5 Nucleated RBC % (0.0-0.3) % 0.0 Absolute Neutrophils (1.2-6.7) 10^3/uL 6.36 Absolute Lymphocytes (1.2-3.4) 10^3/uL 0.67 L Absolute Monocytes (0.1-0.8) 10^3/uL 0.71 Absolute Eosinophils (0.0-0.7) 10^3/uL 0.34 Absolute Basophils (0.0-0.2) 10^3/uL 0.04 Sodium (136-145) mmol/L 142 Potassium (3.5-5.1) mmol/L 6.9 H* Chloride (98-107) mmol/L 102 Carbon Dioxide (21.0-32.0) mmol/L 28.6 Anion Gap (3-11) mmol/L 11.4 H BUN (7-18) mg/dL 85 H* Creatinine (0.55-1.02) mg/dL 6.7 H* Est GFR (CKD-EPI 2020) (mL/min/1.73m2) 6.62 Glucose (74-106) mg/dL 94 Calcium (8.5-10.1) mg/dL 8.4 L Magnesium (1.8-2.4) mg/dL 2.1 Total Bilirubin (0.2-1.0) mg/dL 0.7 AST (15-37) U/L 41 H ALT (14-59) U/L 50 Alkaline Phosphatase (46-116) U/L 212 H Troponin I (<or=60) ng/L 55 NT-Pro-B Natriuret Pep (<300) pg/mL > 66961 H Total Protein (6.4-8.2) g/dL 7.7 Albumin (3.4-5.0) g/dL 4.3 COVID-19 Source Nasopharynx SARS-CoV-2 (PCR) (Negative) Negative Influenza Type A (PCR) (Negative) Negative Influenza Type B (PCR) (Negative) Negative RSV (PCR) (Negative) Negative HPI General Mode of arrival: EMS. Date/Time Provider Initiated Documentation: 08/07/22 19:22. Information obtained by: patient, EMS, RN notes reviewed and old records reviewed. HPI Narrative: 57-year-old female with a past medical history of end-stage renal disease on dialysis, COPD, CHF, tricuspid regurgitation alcoholic cirrhosis, tobacco abuse, GI bleed hypertension hyperlipidemia presents to the ER with a chief complaint of shortness of breath. Patient has used her rescue inhaler 4 times today and was given a DuoNeb by EMS prior to arrival. She is normally on 2 L of oxygen nasal cannula. She does have dialysis Monday. She was seen in the heart department approximately 6 days ago for similar complaint. Upon arrival patient has pursed lip breathing, is unable to speak in full sentences, she is 98% on 3 L nasal cannula, she is tripoding. She does have expiratory wheezes and diminished lung sounds bilaterally. Patient is DNR/DNI does receive home health and has been seen by palliative care last note noted to be in June. Related Data Home Medications Medication Instructions Recorded Confirmed aspirin 81 mg chewable tablet 81 mg PO DAILY 05/24/16 08/07/22 albuterol sulfate 90 mcg/actuation 2 puff inhalation Q4H PRN 07/26/17 08/07/22 aerosol inhaler (ProAir HFA) inhalational spacing device 01/26/19 08/07/22 (Aerochamber MV spacer) meclizine 12.5 mg tablet 12.5 mg PO PRN PRN 03/18/19 08/07/22 omeprazole 40 mg capsule,delayed 40 mg PO BID 03/18/19 08/07/22 release atorvastatin 40 mg tablet 20 mg PO DAILY 10/24/19 08/07/22 albuterol sulfate 2.5 mg/3 mL 2.5 mg (3 mL) inhalation Q6H PRN 02/16/21 08/07/22 (0.083 %) solution for nebulization shortness of breath or wheezing #3 mL tiotropium bromide 18 mcg capsule 1 cap inhalation DAILY #1 inh 02/16/21 08/07/22 with inhalation device (Spiriva with HandiHaler) minoxidil 2.5 mg tablet 5 mg PO QHS 01/21/22 08/07/22 ondansetron HCl 4 mg tablet 4 mg PO ONCE PRN nausea and 02/08/22 08/07/22 vomiting #1 tab calcitriol 1 mcg/mL intravenous 1 mcg intraperitoneal 1XD 04/13/22 08/07/22 solution diphenhydramine HCl 25 mg tablet 25 mg PO PRN PRN 04/13/22 08/07/22 loperamide 2 mg capsule 2 mg PO PRN PRN 04/13/22 08/07/22 sucralfate 1 gram tablet 1 g PO DAILY 04/13/22 08/07/22 sevelamer carbonate 800 mg tablet 400 mg PO TID 04/19/22 08/07/22 vitamin B complex-vitamin C-folic 1 tab PO DAILY 04/19/22 08/07/22 acid 0.8 mg tablet benzonatate 100 mg capsule 100 mg PO TID PRN cough #20 caps 05/19/22 08/07/22 codeine 10 mg-guaifenesin 100 mg/5 See Rx Instructions PO Q6H PRN 06/14/22 08/07/22 mL oral liquid cough #120 mL prednisone 50 mg tablet 50 mg PO DAILY #5 tabs 08/01/22 08/07/22 ipratropium 0.5 mg-albuterol 3 mg 3 ml inhalation Q4H PRN shortness 08/02/22 08/07/22 (2.5 mg base)/3 mL nebulization of breath or wheezing #180 mL soln Previous Rx's Medication Instructions Recorded albuterol sulfate 2.5 mg/3 mL 2.5 mg (3 mL) inhalation Q6H PRN 02/16/21 (0.083 %) solution for nebulization shortness of breath or wheezing #3 mL tiotropium bromide 18 mcg capsule 1 cap inhalation DAILY #1 inh 02/16/21 with inhalation device (Spiriva with HandiHaler) ondansetron HCl 4 mg tablet 4 mg PO ONCE PRN nausea and 02/08/22 vomiting #1 tab benzonatate 100 mg capsule 100 mg PO TID PRN cough #20 caps 03/09/23 codeine 10 mg-guaifenesin 100 mg/5 See Rx Instructions PO Q6H PRN 06/14/22 mL oral liquid cough #120 mL prednisone 50 mg tablet 50 mg PO DAILY #5 tabs 08/01/22 ipratropium 0.5 mg-albuterol 3 mg 3 ml inhalation Q4H PRN shortness 08/02/22 (2.5 mg base)/3 mL nebulization of breath or wheezing #180 mL soln Allergies Allergy/AdvReac Type Severity Reaction Status Date / Time cephalexin monohydrate Allergy Severe trouble Verified 08/02/22 10:10 [From Keflex] breathing colchicine Allergy Verified 08/02/22 10:10 allopurinol AdvReac Intermediate gout Verified 08/02/22 10:10 breakout erythromycin base AdvReac Intermediate gout Verified 08/02/22 10:10 breakout acetaminophen [From Percocet] AdvReac Unverified 08/02/22 10:10 oxycodone [From Percocet] AdvReac Unverified 08/02/22 10:10 General AWA: 3 Review of Systems Constitutional Constitutional: Reports as per HPI, Reports lethargy and Reports poor appetite Cardiovascular Cardiovascular: Denies chest pain, Reports palpitations and Reports dyspnea Respiratory Respiratory: Reports chest congestion, Reports cough, Reports dyspnea and Reports wheezing Genitourinary Genitourinary: Reports as per HPI Endocrine Endocrine: Reports palpitations Allergic/Immunologic Allergic/Immunologic: Reports wheezing PFSH All Active Problems (Updated 08/08/22 @ 02:19 by Bhanu Mayorga DO) ESRD on dialysis (Chronic) On hemodialysis currently using central catheter-nephrology at [facility] receives dialysis at [facility] region Depression (Acute 08/28/14) Gallstones (Acute) COPD (chronic obstructive pulmonary disease) (Chronic) Pulmonary at [facility] Central venous catheter in place (Acute ~10/29/19) [facility], right subclavian-dialysis Tricuspid regurgitation (Acute) s/p tricuspid valve replacement 02/2020, bovine Cirrhosis, alcoholic (Acute) POLST (Physician Orders for Life-Sustaining Treatment) (Acute) COLST completed 02/13/2020, DNR/DNI. Hemorrhage of arteriovenous fistula (Acute) Ventral hernia (Acute) Hypertension (Chronic) Aortic valve replaced (Acute) Bovine-with [facility] Personal history of nicotine dependence (Acute) 02/2021 Tobacco abuse (Acute) Lung nodule, solitary (Acute) Hemoptysis (Acute) Open abdominal wall wound (Acute) Fever (Acute) Neck pain (Acute) Right upper quadrant abdominal pain (Acute) Acute exacerbation of chronic obstructive pulmonary disease (Acute) Renal failure (Chronic) Acute exacerbation of chronic obstructive pulmonary disease (Acute) Acute hyperkalemia (Acute) Medical History Axillary lymphadenopathy Bleeding hemorrhoids (01/08/13) rectal bleeding (colonoscopy [facility] 01/01/13 internal hemorrhoids and diverticuli) Cannabis dependence CVD (cardiovascular disease) Cyst of ovary (08/20/12) Depression (09/14/12) Diverticulitis of large intestine without perforation or abscess with bleeding Essential hypertension (01/16/13) severe and labile Gastroesophageal reflux disease with esophagitis (02/03/15) Hyperlipidemia Hyperparathyroidism, unspecified (02/09/11) 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[facility] Macular degeneration of left eye (~10/17/19) [facility] Nail dystrophy Recurrent urinary tract infection Right heart failure Secondary hyperparathyroidism (of renal origin) Umbilical hernia repaired 1995,1997,2001,2003 Upper GI bleed (05/17/14) 05/15/14 [facility] EGD, HH, esophagitis, gastric ulcer and duodenitis Surgical History Abdominal hysterectomy (~2006) s/p hyst, but cervix still present and needs yearly PAP due to transplant H/O aortic valve replacement History of kidney transplant Repair of umbilical hernia 1995,1997,2001,2003 TRANSPLANT, KIDNEY (~1997) LEFT Family History Mother Essential hypertension Personal history of malignant neoplasm KIDNEY Heart disease Pulmonary emphysema Father Personal history of malignant neoplasm Pulmonary emphysema Brother Hyperlipidemia Brother Hyperlipidemia Brother No problems noted. Social History Smoking/Tobacco Use Status: Current every day Tobacco Type: cigarettes Smoking risk assessment performed?: Yes Alcohol Intake: former Drug use: Daily Substance use type: marijuana Details: mostly edibles Current gender identity: female Do you feel safe at home: Yes Do you feel safe in your relationship?: Yes Exam Const General: in distress moderate, anxious, frail appearing and ill appearing chronically Nutritional Appearance: thin Orientation: alert and awake Limitations: physical limitations Eyes Conjunctivae: conjunctival abnormality bilaterally discharge purulent Resp Effort & Inspection: labored, pursed lip breathing, tripod positioning and prolonged expiratory phase Auscultation: rales Cardio Rate: regular rate GI Palpation: soft Neuro General: patient alert, patient awake and unable to assess gait Critical Care Time Critical Care Time Critical Care Time: Yes Total Critical Care Time: 45 Attestation: I spent greater than 35 minutes addressing this patient's acute life threatening illness. This time was spent engaged in actions directly related to the patient's care. Failure to initiate these interventions would have likely resulted in clinically significant or life threatening deterioration in the patients condition.
--- NOTE | 2022-08-07 19:59 | DI.VRAD_ITS ---
PROCEDURE INFORMATION: Exam: XR Chest Exam date and time: 08/07/2022 7:30 PM Age: 57 years old Clinical indication: Shortness of breath TECHNIQUE: Imaging protocol: Radiologic exam of the chest. Views: 1 view. COMPARISON: XR PORTABLE CHEST AP 08/01/2022 6:37 AM FINDINGS: Lungs: Lungs are mildly hyperexpanded, compatible chronic obstructive pulmonary physiologic changes. Minimal bibasilar ground-glass opacities, likely areas of atelectasis and/or pneumonitis. Pleural spaces: Minimal blunting of the costophrenic angles bilaterally, likely small bilateral pleural effusions and/or pleural thickening. Heart/Mediastinum: Cardiomegaly. Enlarged pulmonary arteries, compatible with pulmonary arterial hypertension. Bones/joints: Changes of prior sternotomy. IMPRESSION: Minimal bibasilar ground-glass opacities, likely areas of atelectasis and/or pneumonitis. Dictated and Authenticated by: Yaya Wei MD. Ordering:LUPE Nicholson MD
[2022-08-07] MEDS: Albuterol 2.5 MG/3 ML INH SOLN VIAL UPD (20:04)
[2022-08-07] MEDS: methylPREDNISolone SUCC 125 MG VIAL IVP (20:04)
[2022-08-07] MEDS: LORazepam 2 MG/ML VIAL 0.5 MG IVP (20:04)
[2022-08-07 20:07] LABS: Abs Immature Grans 0.15 10^3/uL (0.0-0.06); Absolute Basophil Count 0.04 10^3/uL (0.0-0.2); Absolute Eosinophil Count 0.34 10^3/uL (0.0-0.7); Absolute Lymphocyte Count 0.67 10^3/uL (1.2-3.4); Absolute Monocyte Count 0.71 10^3/uL (0.1-0.8); Absolute Neutrophil Count 6.36 10^3/uL (1.2-6.7); Basophils % 0.5; Eosinophils % 4.1; HCT 33.5 % (36.0-46.0); HGB 10.1 g/dL (11.2-15.7); Immature Grans % 1.8; Lymphocytes % 8.1; MCH 29.3 pg (27.0-33.0); MCHC 30.1 % (32.0-36.0); MCV 97 fL (80-95); MPV 11.6 fL (8.0-11.0); Monocytes % 8.6; Neutrophils % 76.9; Platelet Count 162 10^3/uL (130-400); RBC 3.45 10^6/uL (3.93-5.22); RDW 15.4 % (11.7-14.6); RDW-SD 55.1 fL; WBC 8.27 10^3/uL (4.4-10.8)
[2022-08-07 20:34] LABS: ALT 50 U/L (14-59); AST 41 U/L (15-37); Albumin 4.3 g/dL (3.4-5.0); Alkaline Phosphatase 212 U/L (46-116); Anion Gap 11.4 mmol/L (3-11); Bilirubin, Total 0.7 mg/dL (0.2-1.0); CO2 28.6 mmol/L (21.0-32.0); Calcium 8.4 mg/dL (8.5-10.1); Chloride 102 mmol/L (98-107); Estimated GFR 6.62 (mL/min/1.73m2); Glucose 94 mg/dL (74-106); Magnesium 2.1 mg/dL (1.8-2.4); Sodium 142 mmol/L (136-145); Total Protein 7.7 g/dL (6.4-8.2); Troponin I 55 ng/L (<or=60)
[2022-08-07 20:49] LABS: COVID-19 PCR Negative (Negative); Influenza A PCR Negative (Negative); Influenza B PCR Negative (Negative); RSV PCR Negative (Negative)
[2022-08-07 20:54] LABS: Source Nasopharynx
[2022-08-07 20:56] LABS: NT-proBNP > 35000 pg/mL (<300)
[2022-08-07 20:58] LABS: BUN 85 mg/dL (7-18); CREATININE 6.7 mg/dL (0.55-1.02); Potassium 6.9 mmol/L (3.5-5.1)
[2022-08-07 21:41] LABS: BE (Venous) 2 mmol/L (-2-3); HCO3 (Venous) 28 mmol/L (23-28); O2 Sat (Venous) 96 %; TCO2 (Venous) 27 mmol/L (24-29); pCO2 (Venous) 60 mmHg (41-51); pH (Venous) 7.28 (7.31-7.41); pO2 (Venous) 81 mmHg
[2022-08-07 23:07] LABS: Troponin I 60 ng/L (<or=60)
[2022-08-07] MEDS: Calcium Gluconate 4.65 MEQ/10 ML VIAL 4.65 MG IVP (23:16)
[2022-08-07] MEDS: Insulin REGULAR-Human 100 UNITS/ML UNIT 6 UNITS IV (23:20)
[2022-08-07] MEDS: Dextrose 50%-Water 25 GM/50 ML SYR IVP (23:28)
[2022-08-07 23:51] LABS: BE (Venous) -1 mmol/L (-2-3); HCO3 (Venous) 26 mmol/L (23-28); O2 Sat (Venous) 95 %; TCO2 (Venous) 25 mmol/L (24-29); pCO2 (Venous) 59 mmHg (41-51); pH (Venous) 7.26 (7.31-7.41); pO2 (Venous) 75 mmHg
[2022-08-08] MEDS: Albuterol 2.5 MG/3 ML INH SOLN VIAL UPD (00:51)
[2022-08-08 01:52] LABS: BE (Venous) 0 mmol/L (-2-3); HCO3 (Venous) 27 mmol/L (23-28); O2 Sat (Venous) 93 %; TCO2 (Venous) 26 mmol/L (24-29); pH (Venous) 7.25 (7.31-7.41); pO2 (Venous) 69 mmHg
[2022-08-08 01:57] LABS: pCO2 (Venous) 62 mmHg (41-51)
--- NOTE | 2022-08-08 02:01 | ED.PROG_ITS ---
Date of service: 08/08/22 Time of Service: 02:01 Medical Decision Making Patient was signed out to me by my colleague Trisha Zapata. Please refer to HPI, physical exam, assessment and plan. Patient had already been accepted to the [facility] medicine service for transfer for dialysis. Medications had been administered here already. We were waiting on repeat VBG after trial by BiPAP for follow-up with [facility]. Unfortunately the patient did not tolerate BiPAP at all. She kept ripping the mask off after every few minutes. She was unwilling to trial it anymore. On my personal reassessment she showed no evidence of altered mental status at this stage. She was communicative and talkative, and at her respiratory baseline on 3 L via nasal cannula. She did not show respiratory need for the BiPAP. Clearly it would be beneficial for her PCO2 level and pH. She refused to tolerate it any longer. She does not show evidence of respiratory decline necessitating intubation. She shows no signs of significant altered mental status at this stage. Repeat VBG shows a pH of 7.25, and a PCO2 of 62. Repeat labs did return right now as well, and the patient does have an increasing potassium in spite of all the treatments provided by my colleague. Calcium is 7.5, BUN 91, creatinine 7. We will give an additional amp of calcium gluconate. I did contact [facility] and discussed this with the medicine team. Patient remained stable from a mental status point, her vital signs remained stable. In addition to this EKG and telemetry shows no signs of ectopy at this time. I did convey to the medicine team my concern that it is critically important that we expedite transition to [facility] for dialysis as the patient has worsened and her potassium levels in spite of all of her treatments of insulin, calcium, albuterol, Kayexalate. Medicine team agrees with this plan. Renea is here for transfer. Patient will be transferred down emergently for dialysis. I have extensively reviewed the treatment plan with the patient. I have addressed all patient concerns at this time. I have also discussed the plan with the admitting physician and they agree with the current assessment and plan and have agreed to assume responsibility for the patient. All parties demonstrate verbal understanding and agreement with our assessment and plan at this time. The documentation in this chart was dictated using [employer] dictation software. Please excuse any dictation errors. At time of transfer the patient was reassessed and continued to demonstrate No signs of acute respiratory distress requiring intubation, hemodynamic instability requiring pressor support, or rapidly declining mental status. Critical Care Time Critical Care Time Critical Care Time: Yes Total Critical Care Time: 45 Attestation: Upon my evaluation, this patient had a high probability of imminent or life- threatening deterioration, which required my direct attention, intervention, and personal management. I have personally provided 45 minutes of critical care time exclusive of time spent on separately billable procedures. Time includes review of laboratory data, radiology results, discussion with consultants, and monitoring for potential decompensation. Interventions were performed as documented. Sign Out Sign Out Data: Sign Out Comment: Pending transfer to [facility]. COPD Exacerbation, end stage renal Disease, Dialysis due tomorrow, End stage COPD, CHF. Last updated by Lyn Márquez NP at 08/08/22 00:00 Discharge Plan Disposition Patient Disposition: Transfer-Acute Inpatient Care Specific Acute Inpt Facility: [facility] Condition: Critical Condition: Critical Discharge Details Chief Complaint: SOB Clinical Impression: Renal failure, Acute exacerbation of chronic obstructive pulmonary disease, Acute hyperkalemia Primary Care Provider: Chano Neves ED Provider: Lyn Márquez Home Meds and New Rx's Prescriptions: No Action ondansetron HCl 4 mg tablet 4 mg PO ONCE PRN (Reason: nausea and vomiting) Qty: 1 0RF ipratropium-albuterol 0.5 mg-3 mg(2.5 mg base)/3 mL solution for nebulization 3 ml inhalation Q4H PRN (Reason: shortness of breath or wheezing) Qty: 180 0RF Spiriva with HandiHaler 18 mcg capsule, w/inhalation device 1 cap inhalation DAILY Qty: 1 0RF Rx Instructions: puncture 1 cap using device; one dose = 2 inhalations from VA albuterol sulfate 2.5 mg /3 mL (0.083 %) solution for nebulization 2.5 mg inhalation Q6H PRN (Reason: shortness of breath or wheezing) Qty: 3 0RF Rx Instructions: VA B complex-vitamin C-folic acid 0.8 mg tablet 1 tab PO DAILY sevelamer carbonate 800 mg tablet 400 mg PO TID Rx Instructions: must administer with a meal/food codeine-guaifenesin 10-100 mg/5 mL liquid See Rx Instructions PO Q6H PRN (Reason: cough) Qty: 120 0RF Rx Instructions: one to two teaspoons PO every 6 hours PRN cough ; aspirin 81 MG tablet,chewable 81 mg PO DAILY albuterol sulfate [ProAir HFA] 8.5 GM HFA aerosol inhaler 2 puff Inhalation Q4H PRN atorvastatin 40 mg tablet 20 mg PO DAILY minoxidil 2.5 mg tablet 5 mg PO QHS omeprazole 40 mg Capsule,Delayed Release(Dr/Ec) 40 mg PO BID meclizine 12.5 mg Tablet 12.5 mg PO PRN PRN benzonatate 100 mg capsule 100 mg PO TID PRN (Reason: cough) Qty: 20 0RF prednisone 50 mg tablet 50 mg PO DAILY Qty: 5 0RF (DME) Aerochamber MV Spacer MISCELLANEOUS sucralfate 1 gram tablet 1 g PO DAILY Patient Comments: TAKE 1 TABLET BY MOUTH FOUR TIMES DAILY BEFORE MEALS AND AT BEDTIME loperamide 2 mg Capsule 2 mg PO PRN PRN diphenhydramine HCl 25 mg Tablet 25 mg PO PRN PRN calcitriol 1 mcg/mL Solution 1 mcg intraperitoneal 1XD
[2022-08-08 02:07] LABS: Anion Gap 12.2 mmol/L (3-11); CO2 27.8 mmol/L (21.0-32.0); Calcium 8.8 mg/dL (8.5-10.1); Chloride 101 mmol/L (98-107); Estimated GFR 6.28 (mL/min/1.73m2); Glucose 122 mg/dL (74-106); Sodium 141 mmol/L (136-145)
[2022-08-08 02:09] LABS: BUN 91 mg/dL (7-18); Potassium 7.5 mmol/L (3.5-5.1)
[2022-08-08] MEDS: Calcium Gluconate 4.65 MEQ/10 ML VIAL 4.65 MG IVP (02:25)
--- NOTE | 2022-08-08 02:25 | NUR.NOTE ---
Nursing Note: Report called to [facility] to Sabra Lord RN. Pt going to [address]. Report given to Zaki EMT-P with [facility]. Pt out of ER with EMS crew.
--- NOTE | 2022-08-08 09:54 | NUR.NOTE ---
Nursing Note: Accessed pt chart to determine where the patient was transferred.
== END 2022-08-08 02:19 | disposition short-term general hospital (02) ==
PROVIDERS: Student in an Organized Health Care Education/Training Program; Emergency Provider Registered Nurse Emergency; PCP Family Medicine
DX: J44.1 Chronic obstructive pulmonary disease with (acute) exacerbation (principal); E87.5 Hyperkalemia; I13.2 Hypertensive heart and chronic kidney disease with heart failure and with stage 5 chronic kidney disease, or end stage renal disease; I50.9 Heart failure, unspecified; N18.6 End stage renal disease; K70.30 Alcoholic cirrhosis of liver without ascites; R06.02 Shortness of breath; Z99.81 Dependence on supplemental oxygen; F17.210 Nicotine dependence, cigarettes, uncomplicated
CPT/HCPCS: 36415; 80048; 80053; 82805; 87637; 93005; 96374; 96375; 96376; 99291; 71045; 83735; 83880; 84484; 85025; 93010; 94660; J0612; J2060; J2930; J7613

== ENCOUNTER 2022-11-07 17:41 | Emergency (ER) | payer OTHER, SELFPAY ==
--- NOTE | 2022-11-07 17:45 | RT.EKG_ITS ---
APPROVED REPORT Exam: Resting ECG Reason for Exam: sob Patient Location: E HR:94 bpm ECG Measurements Heart Rate [address] 194 P 9 QRSd 158 QRS 72 QT 408 T 34 QTc 510 Conclusion Sinus rhythm...normal P axis, V-rate 60- 99 Right bundle branch block...QRSd>120, terminal axis(90,270) sinus rhythm, RBBB
[2022-11-07 17:48] VITALS: BP 121/65; PULSE 95; RESP 22; TEMP 37.3; O2SAT 87
--- NOTE | 2022-11-07 18:37 | W.ED.GENAD ---
Discharge Plan Disposition Patient Disposition: Home Condition: Stable Discharge Details Clinical Impression: COPD (chronic obstructive pulmonary disease), ESRD on dialysis, COPD exacerbation, Pneumonia Primary Care Provider: Chano Neves ED Provider: Kristie Mathews Home Meds and New Rx's Prescriptions: Continued ondansetron HCl 4 mg tablet 4 mg PO ONCE PRN (Reason: nausea and vomiting) Qty: 1 0RF prednisone 20 mg tablet 40 mg PO DAILY 5 Days Qty: 10 0RF Rx Instructions: 3/4 days of prednisone benzonatate 100 mg capsule 100 mg PO TID PRN (Reason: cough) Qty: 14 0RF Spiriva with HandiHaler 18 mcg capsule, w/inhalation device 1 cap inhalation DAILY Qty: 1 0RF Rx Instructions: puncture 1 cap using device; one dose = 2 inhalations from [facility] albuterol sulfate 2.5 mg /3 mL (0.083 %) solution for nebulization 2.5 mg inhalation Q6H PRN (Reason: shortness of breath or wheezing) Qty: 3 0RF Rx Instructions: VA B complex-vitamin C-folic acid 0.8 mg tablet 1 tab PO DAILY sevelamer carbonate 800 mg tablet 400 mg PO TID Rx Instructions: must administer with a meal/food codeine-guaifenesin 10-100 mg/5 mL liquid See Rx Instructions PO Q6H PRN (Reason: cough) Qty: 120 0RF Rx Instructions: one to two teaspoons PO every 6 hours PRN cough ; aspirin 81 MG tablet,chewable 81 mg PO DAILY albuterol sulfate [ProAir HFA] 8.5 GM HFA aerosol inhaler 2 puff Inhalation Q4H PRN atorvastatin 40 mg tablet 20 mg PO DAILY minoxidil 2.5 mg tablet 5 mg PO QHS acetaminophen 325 mg capsule 325 mg PO ONCE PRN amlodipine 10 mg tablet 10 mg PO DAILY omeprazole 40 mg Capsule,Delayed Release(Dr/Ec) 40 mg PO BID meclizine 12.5 mg Tablet 12.5 mg PO PRN PRN (DME) Aerochamber MV Spacer MISCELLANEOUS sucralfate 1 gram tablet 1 g PO DAILY Patient Comments: TAKE 1 TABLET BY MOUTH FOUR TIMES DAILY BEFORE MEALS AND AT BEDTIME loperamide 2 mg Capsule 2 mg PO PRN PRN diphenhydramine HCl 25 mg Tablet 25 mg PO PRN PRN calcitriol 1 mcg/mL Solution 1 mcg intraperitoneal 1XD No Action levofloxacin 250 mg tablet 250 mg PO DAILY Qty: 6 0RF Rx Instructions: Take one tablet daily for 6 days for a total of 10 days ipratropium-albuterol 0.5 mg-3 mg(2.5 mg base)/3 mL solution for nebulization 3 ml inhalation Q4H PRN (Reason: shortness of breath or wheezing) Qty: 180 3RF Discharge Instructions Instructions: COPD (Chronic Obstructive Pulmonary Disease) (ED), Pneumonia (ED) Additional Instructions: Your imaging was concerning for possible pneumonia. Also concerned that you may have a COPD exacerbation. Please take the steroids and antibiotics as prescribed. These have been sent to your pharmacy, only once a day dosing, next dose due tomorrow. Please continue with your home O2 at 2L. Please use your nebulizer every 4 hours as previously instructed. Please call your dialysis team tomorrow to discuss having another dialysis session tomorrow as you received IV contrast tomorrow. If you develop any other new/worsening symptoms, please seek care urgently once again. Please follow up with primary care this week. Referrals: Chano Neves MD [Primary Care Provider] - Discharge Data Discharge Date/Time-TO BE ENTERED AT DEPARTURE: 11/07/22 23:19 Medical Decision Making Patient is a pleasant 57-year-old female past medical history significant for end-stage renal disease currently on dialysis, received dialysis today, COPD, still an active smoker, hypertension, ventral hernia, aortic valve replacement, presenting with chief complaint of shortness of breath. She reports that the shortness of breath began suddenly this morning around 1 AM and woke her from sleep. States that she had chest pain feeling tight. She denies any sore throat, congestion, ear pain. No fevers or chills. No GI upset. Has not had symptoms like this historically. States that she has had COPD exacerbation has not been to this degree. She was initially hypoxic in the mid to high 80s with nursing staff and was speaking in fragmented sentences. On 2 L nasal cannula, her her O2 is in the mid 90s and she is speaking in full sentences and feels significantly improved. States that her symptoms are worsened with exertion. On exam, patient appears nontoxic. She appears slightly anxious and was initially distressed based on nursing discription. She has 2L of O2 on. She had diffuse expiratory wheezing. RLE swelling and mild calf pain. No crepitus, lung sounds in all kn[place]. Concern for potential COPD exacerbation given how tight the patient sounds and will begin on nebulizer as well as methylprednisolone. Also considered potential pulmonary embolism we will obtain a D-dimer. Also obtain chest x-ray. Given her symptoms, thinking more pulmonary but ACS is certainly on the differential. Labs reviewed. No leukocytosis. Patient is anemic but this is stable and baseline. D-dimer is elevated at 1700. We will move forward with CTA for possible pulmonary embolism, particular given the right sided leg swelling. CMP significantly changed from the patient's baseline. Creatinine is elevated at 4 which is baseline. Alk phos also elevated which is baseline for her. Troponin within normal limits. FINDINGS: Tubes, catheters and devices: There are sternal wires consistent with previous sternotomy incision. Hemodialysis catheter present on prior study is no longer visualized. Pulmonary arteries: The pulmonary artery is enlarged at 4.8 cm. There has been replacement of the tricuspid valve. There has been replacement of the aortic valve. Great vessels off aortic arch: [id number]-[id number] atherosclerosis of the great vessels. Aorta: The aorta demonstrates mild atherosclerotic calcification. Lungs: Bilateral upper lobe paraseptal and central lobular [id number] emphysematous changes. There is heterogeneous attenuation of the pulmonary parenchyma, consistent with air trapping from underlying small airways disease. There are diffuse interstitial infiltrates present. This may represent cardiogenic versus noncardiogenic edema. An acute inflammatory process and/or infectious process/pneumonia are not excluded. Pleural spaces: No pneumothorax. No pleural effusion. Heart: The heart is enlarged. There is left ventricular hypertrophy. The right ventricular to left ventricular ratio is normal measuring 0.9. No evidence of reflux of contrast into the inferior vena cava or hepatic veins to suggest right heart strain or pulmonary hypertension. Coronary arteries: There is moderate atherosclerotic calcification of the coronary arteries. Lymph nodes: Bilateral axillary adenopathy present. This was present on the prior study of 12/27/2021. Liver: Macronodular cirrhotic changes within the liver. The spleen is enlarged. Kidneys and ureters: Severe bilateral renal atrophy consistent with renal failure. Bones/joints: There are sternal wires consistent with previous sternotomy incision. The thoracic spine is unremarkable. Soft tissues: The soft tissues of the extrathoracic region are unremarkable. IMPRESSION: 1. ? Bilateral upper lobe paraseptal and central lobular [id number] emphysematous changes. 2. ? There is heterogeneous attenuation of the pulmonary parenchyma, consistent with air trapping from underlying small airways disease. 3. ? There are diffuse interstitial infiltrates present. This may represent cardiogenic versus noncardiogenic edema. An acute inflammatory process and/or infectious process/pneumonia are not excluded. Discussed these findings with the patient. She is now reporting that she has had some cough and that she is not surprised to hear that she does have possible infection. We will begin her on antibiotics. Discussed admission for need for O2 and have requested consultation with [facility] as she has dialysis requirements and is not able to stay here. [facility] advised that they may have a bed for her at [place]. When I discussed this with the patient, she now reports that she has oxygen at home as well as in her car and would like to go home. I encouraged that she continue to use the 2 L of nasal cannula as this seems to work well for her. She actually has a O2 canister in her car here. She used O2 on her way here as well as at home prior to arrival. She will continue with the antibiotics as well as steroids for presumed COPD exacerbation given initial presentation. She will call her team tomorrow to see if she may have more prompt dialysis as she did receive contrast. I advised she should have dialysis tomorrow. When [facility] calls back we will also discuss this with them but patient does not want to wait any longer for at home. She will f/u with PCP this week. Encouraged supportive care with neb at home. She will continue with abx, steroids. Strict return precautions discussed. [facility] is aware that she may return at any time for continued care and possible admission, which would require transfer of care. All of her questions and concerns were addressed, she is in agreement with this plan. [facility] General Date/Time Provider Initiated Documentation: 11/07/22 17:50. Limitations to Documentation: no limitations. Information obtained by: patient and RN notes reviewed. History of Present Illness 57 year old F presents to the emergency department with the chief complaint of SOB, described as severe and similar to prior episodes, Quality is described as other (describes chest feeling tight), and is localized to the chest. Patient reports no radiation. Patient started experiencing this hour(s) (0100) and it has been constant. No relieving factors improve symptom(s), Movement worsens symptoms . Patient notes chest pain (feels tight), cough, loss of appetite, malaise and shortness of breath; denies fever/chills and nausea/vomiting. Patient did receive the following treatments prior to arrival, none Related Data Home Medications Medication Instructions Recorded Confirmed aspirin 81 mg chewable tablet 81 mg PO DAILY 05/24/16 11/13/22 albuterol sulfate 90 mcg/actuation 2 puff inhalation Q4H PRN 07/26/17 11/13/22 aerosol inhaler (ProAir HFA) inhalational spacing device 01/26/19 11/11/22 (Aerochamber MV spacer) meclizine 12.5 mg tablet 12.5 mg PO PRN PRN 03/18/19 11/13/22 omeprazole 40 mg capsule,delayed 40 mg PO BID 03/18/19 11/13/22 release atorvastatin 40 mg tablet 20 mg PO DAILY 10/24/19 11/13/22 albuterol sulfate 2.5 mg/3 mL 2.5 mg (3 mL) inhalation Q6H PRN 02/16/21 11/13/22 (0.083 %) solution for nebulization shortness of breath or wheezing #3 mL tiotropium bromide 18 mcg capsule 1 cap inhalation DAILY #1 inh 02/16/21 11/13/22 with inhalation device (Spiriva with HandiHaler) minoxidil 2.5 mg tablet 5 mg PO QHS 01/21/22 11/13/22 ondansetron HCl 4 mg tablet 4 mg PO ONCE PRN nausea and 02/08/22 11/13/22 vomiting #1 tab calcitriol 1 mcg/mL intravenous 1 mcg intraperitoneal 1XD 04/13/22 11/13/22 solution diphenhydramine HCl 25 mg tablet 25 mg PO PRN PRN 04/13/22 11/13/22 loperamide 2 mg capsule 2 mg PO PRN PRN 04/13/22 11/13/22 sucralfate 1 gram tablet 1 g PO DAILY 04/13/22 11/13/22 sevelamer carbonate 800 mg tablet 400 mg PO TID 04/19/22 11/13/22 vitamin B complex-vitamin C-folic 1 tab PO DAILY 04/19/22 11/13/22 acid 0.8 mg tablet codeine 10 mg-guaifenesin 100 mg/5 See Rx Instructions PO Q6H PRN 06/14/22 11/13/22 mL oral liquid cough #120 mL acetaminophen 325 mg capsule 325 mg PO ONCE PRN 08/23/22 11/13/22 amlodipine 10 mg tablet 10 mg PO DAILY 08/23/22 11/13/22 benzonatate 100 mg capsule 100 mg PO TID PRN cough #14 caps 09/01/22 11/13/22 prednisone 20 mg tablet 40 mg PO DAILY 5 days #10 tabs 09/01/22 11/13/22 ipratropium 0.5 mg-albuterol 3 mg 3 ml inhalation Q4H PRN shortness 11/13/22 (2.5 mg base)/3 mL nebulization of breath or wheezing #180 mL soln levofloxacin 250 mg tablet 250 mg PO DAILY Pneumonia #6 tabs 11/13/22 Previous Rx's Medication Instructions Recorded albuterol sulfate 2.5 mg/3 mL 2.5 mg (3 mL) inhalation Q6H PRN 02/16/21 (0.083 %) solution for nebulization shortness of breath or wheezing #3 mL tiotropium bromide 18 mcg capsule 1 cap inhalation DAILY #1 inh 02/16/21 with inhalation device (Spiriva with HandiHaler) ondansetron HCl 4 mg tablet 4 mg PO ONCE PRN nausea and 02/08/22 vomiting #1 tab codeine 10 mg-guaifenesin 100 mg/5 See Rx Instructions PO Q6H PRN 06/14/22 mL oral liquid cough #120 mL benzonatate 100 mg capsule 100 mg PO TID PRN cough #14 caps 09/01/22 prednisone 20 mg tablet 40 mg PO DAILY 5 days #10 tabs 09/01/22 ipratropium 0.5 mg-albuterol 3 mg 3 ml inhalation Q4H PRN shortness 11/13/22 (2.5 mg base)/3 mL nebulization of breath or wheezing #180 mL soln levofloxacin 250 mg tablet 250 mg PO DAILY Pneumonia #6 tabs 11/13/22 Allergies Allergy/AdvReac Type Severity Reaction Status Date / Time cephalexin monohydrate Allergy Severe trouble Verified 11/11/22 13:41 [From Keflex] breathing colchicine Allergy Verified 11/11/22 13:41 allopurinol AdvReac Intermediate gout Verified 11/11/22 13:41 breakout erythromycin base AdvReac Intermediate gout Verified 11/11/22 13:41 breakout acetaminophen [From Percocet] AdvReac Unverified 11/11/22 13:41 oxycodone [From Percocet] AdvReac Unverified 11/11/22 13:41 General Stated Complaint: RespSymp AWA: 2 Review of Systems Constitutional Constitutional: Reports as per HPI, Denies chills, Denies fever(s) and Denies headache(s) Eyes Eyes: Denies change in vision ENT Ears, Nose, Mouth, and Throat: Denies dizziness and Denies headache(s) Cardiovascular Cardiovascular: Reports as per HPI Respiratory Respiratory: Reports as per HPI, Denies chest congestion, Denies cough and Denies pain with cough Gastrointestinal Gastrointestinal: Reports as per HPI, Denies abdominal pain, Denies diarrhea, Denies nausea and Denies vomiting Musculoskeletal Musculoskeletal: Reports as per HPI and Denies back pain Integumentary/Breasts Skin/Breast: Reports as per HPI and Denies rash Neurologic Neurologic: Reports as per HPI, Denies dizziness and Denies headache(s) PFSH All Active Problems (Updated 11/13/22 @ 11:31 by Lyn Márquez NP) COPD exacerbation (Acute) Pneumonia (Acute) Medication refill (Acute) Vaginal lesion (Acute) ESRD on dialysis (Chronic) On hemodialysis currently using central catheter-nephrology at [facility] receives dialysis at [facility] Depression (Acute 08/28/14) Gallstones (Acute) COPD (chronic obstructive pulmonary disease) (Chronic) Pulmonary at [facility] Central venous catheter in place (Acute ~10/29/19) [facility], right subclavian-dialysis Tricuspid regurgitation (Acute) s/p tricuspid valve replacement 02/2020, bovine Cirrhosis, alcoholic (Acute) POLST (Physician Orders for Life-Sustaining Treatment) (Acute) COLST completed 02/13/2020, DNR/DNI. Hemorrhage of arteriovenous fistula (Acute) Ventral hernia (Acute) Hypertension (Chronic) Aortic valve replaced (Acute) Bovine-with [facility] Personal history of nicotine dependence (Acute) 02/2021 Tobacco abuse (Acute) Lung nodule, solitary (Acute) Hemoptysis (Acute) Open abdominal wall wound (Acute) Fever (Acute) Neck pain (Acute) Right upper quadrant abdominal pain (Acute) Medical History Axillary lymphadenopathy Bleeding hemorrhoids (01/08/13) rectal bleeding (colonoscopy [facility] 01/01/13 internal hemorrhoids and diverticuli) Cannabis dependence CVD (cardiovascular disease) Cyst of ovary (08/20/12) Depression (09/14/12) Diverticulitis of large intestine without perforation or abscess with bleeding Essential hypertension (01/16/13) severe and labile Gastroesophageal reflux disease with esophagitis (02/03/15) Hyperlipidemia Hyperparathyroidism, unspecified (02/09/11) 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[facility] Macular degeneration of left eye (~10/17/19) [facility] Nail dystrophy Recurrent urinary tract infection Right heart failure Secondary hyperparathyroidism (of renal origin) Umbilical hernia repaired 1995,1997,2001,2003 Upper GI bleed (05/17/14) 05/15/14 [facility] EGD, HH, esophagitis, gastric ulcer and duodenitis Surgical History Abdominal hysterectomy (~2006) s/p hyst, but cervix still present and needs yearly PAP due to transplant H/O aortic valve replacement History of kidney transplant Repair of umbilical hernia 1995,1997,2001,2003 TRANSPLANT, KIDNEY (~1997) LEFT Family History Mother Essential hypertension Personal history of malignant neoplasm KIDNEY Heart disease Pulmonary emphysema Father Personal history of malignant neoplasm Pulmonary emphysema Brother Hyperlipidemia Brother Hyperlipidemia Brother No problems noted. Social History Smoking/Tobacco Use Status: Current every day Tobacco Type: cigarettes Smoking risk assessment performed?: Yes Alcohol Intake: former Drug use: Daily Substance use type: marijuana Details: mostly edibles Current gender identity: female Do you feel safe at home: Yes Do you feel safe in your relationship?: Yes Exam Const General: cooperative, comfortable, no acute distress, well developed and ill appearing acutely (appears SOB but improved with NC O2) and chronically Nutritional Appearance: average body habitus and well nourished Orientation: alert, awake and oriented x3 HENMT Head: normal to inspection Ears: hearing grossly normal bilaterally Mouth: moist mucous membranes Chest Chest: normal inspection of the chest, normal palpation of entire chest wall and no crepitus Resp Effort & Inspection: normal respiratory effort (On2L NC), able to speak in complete sentences and no respiratory distress Auscultation: clear to auscultation bilaterally, no rales, no rhonchi and wheezes expiratory wheezes (diffuse) Cardio Rate: regular rate Rhythm: regular rhythm Heart Sounds: S1 normal and S2 normal GI Inspection: normal to inspection, no edema and non-distended Palpation: soft, no hepatosplenomegaly, not firm, no guarding, not rigid and nontender Auscultation: normal bowel sounds Back/Spine/Pelvis Back: no CVA tenderness Thoracic/Lumbar Spine: thoracic and lumbar spine normal to inspection Skin General skin exam: no rashes or lesions noted Trauma: no lacerations or abrasions Neuro General: patient alert, patient awake and patient oriented x3 Cognition: normal cognition Speech: speech normal Gait: normal gait Extrem General: capillary refill normal, normal gait, calf tenderness (mildly tender on the RLE), edema (slight swellin g to the RLE, none in the left) and other (2+ distal pulses) Psych Appearance: grossly normal and well kempt Mental Status: mental status grossly normal Speech and Movement: speech and movement normal Course Vital Signs Vital signs: Vital Signs Temperature 37.3 C 11/07/22 17:48 Pulse 95 H 11/07/22 17:48 Respiratory Rate 22 11/07/22 17:48 Blood Pressure 121/65 11/07/22 17:48 Pulse Oximetry 87 L 11/07/22 17:48 Temperature 37.3 C 11/07/22 17:48 Temperature Source Temporal Artery Scan 11/07/22 17:48 Pulse 95 H 11/07/22 17:48 Respiratory Rate 22 11/07/22 17:48 Respiratory Effort Short of Breath 11/07/22 18:16 Respiratory Depth Deep 11/07/22 18:16 Blood Pressure 121/65 11/07/22 17:48 Blood Pressure Position Sitting 11/07/22 17:48 Pulse Oximetry 87 L 11/07/22 17:48 Oxygen Delivery Method Room Air 11/07/22 17:48 Oxygen Flow Rate 0 11/07/22 17:48
[2022-11-07] MEDS: Albuterol/Ipratropium 3 ML UPD VIAL UPD (19:06)
[2022-11-07] MEDS: methylPREDNISolone SUCC 125 MG VIAL IVP (19:08)
[2022-11-07 19:22] LABS: Abs Immature Grans 0.02 10^3/uL (0.0-0.06); Absolute Basophil Count 0.06 10^3/uL (0.0-0.2); Absolute Eosinophil Count 0.56 10^3/uL (0.0-0.7); Absolute Monocyte Count 0.57 10^3/uL (0.1-0.8); Absolute Neutrophil Count 3.34 10^3/uL (1.2-6.7); Basophils % 1.2; Eosinophils % 11.1; HCT 34.5 % (36.0-46.0); HGB 10.9 g/dL (11.2-15.7); Immature Grans % 0.4; Lymphocytes % 9.9; MCH 28.8 pg (27.0-33.0); MCHC 31.6 % (32.0-36.0); MCV 91 fL (80-95); MPV 12.4 fL (8.0-11.0); Monocytes % 11.3; Neutrophils % 66.1; Platelet Count 140 10^3/uL (130-400); RBC 3.78 10^6/uL (3.93-5.22); RDW 14.1 % (11.7-14.6); WBC 5.05 10^3/uL (4.4-10.8)
[2022-11-07 19:32] LABS: INR 1.2 (0.9-1.1); PTT Activated 27.6 sec (21.5-31.9); Prothrombin Time 11.8 sec (9.3-11.0)
[2022-11-07 19:37] LABS: ALT 24 U/L (14-59); AST 30 U/L (15-37); Albumin 3.8 g/dL (3.4-5.0); Alkaline Phosphatase 288 U/L (46-116); Anion Gap 6.5 mmol/L (3-11); BUN 23 mg/dL (7-18); Bilirubin, Total 0.5 mg/dL (0.2-1.0); CO2 33.5 mmol/L (21.0-32.0); Calcium 8.4 mg/dL (8.5-10.1); Chloride 95 mmol/L (98-107); Glucose 95 mg/dL (74-106); Potassium 4.4 mmol/L (3.5-5.1); Sodium 135 mmol/L (136-145); Total Protein 7.5 g/dL (6.4-8.2); Troponin I < 50 ng/L (<or=60)
[2022-11-07 19:47] LABS: D-Dimer 1754 ng/mlFEU (<500)
--- NOTE | 2022-11-07 19:56 | DI.RAD_ITS ---
Exam(s) XR CHEST 2V PA LATERAL EXAM: XR CHEST 2V PA LATERAL CLINICAL HISTORY: SOB TECHNIQUE: 2D digital imaging was performed of the chest. Two images were obtained. PA and lateral views were obtained. COMPARISON: CR,XR XR PORTABLE CHEST AP from 08/07/2022 FINDINGS: MEDIASTINUM: Normal. HEART: Cardiomegaly. Two cardiac valve replacements are present. PULMONARY VASCULATURE: There is prominence of the pulmonary vasculature in the amanda is raising the qu estion of pulmonary artery hypertension. LUNGS: No focal consolidating infiltrates are present. There is a question of mild interstitial prom inence. PLEURAL SPACE: No pleural effusion or pneumothorax. BONE:Within normal limits for the patient's age. There are sternal wires in place. OTHER FINDINGS:Normal. IMPRESSION: Cardiomegaly and mild interstitial prominence which may reflect a interstitial edema. Pneumonia santiago ot be excluded. DATA REPOSITORY: RADIATION DOSE DELIVERED:
--- NOTE | 2022-11-07 20:15 | DI.CT_ITS ---
Exam(s) CT CHEST PE CTA EXAM: CT CHEST PE CTA CLINICAL HISTORY: SOB, pleuritic pain, hypoxia, RLE edema. TECHNIQUE: Imaging Protocol: Axial CT angiography was performed with multi-slice acquisition and mu lti-planar and/or 3D reconstructions. CONTRAST MATERIAL: Intravenous: Omnipaque 350 contrast volume:59 mL COMPARISON: CT CT CHEST PE CTA from 12/27/[address] CHEST/ABD/PEL WO from 07/07/2022 FINDINGS: The examination is limited due to patient motion artifact. Tracheobronchial tree: Patent where visualized. Pulmonary parenchyma: Emphysematous changes are present in the lungs. No focal consolidating infiltr ates. Pulmonary Arteries: There is suboptimal visualization of the subsegmental pulmonary arteries due to p atient motion artifact. No central pulmonary embolus is present. There is enlarged pulmonary artery . Mediastinum and Magali: No dominant adenopathy or fluid collection. The esophagus is unremarkable. St able bilateral enlarged axillary lymph nodes are present. Visualized thyroid gland: Unremarkable. Pleura: No effusion or pneumothorax. Heart: Cardiomegaly. There is an aortic valve replacement. There is calcification of the mitral tamanna ve. Moderate coronary artery calcification is present. No pericardial effusion. Aorta: Thoracic aorta non-dilated. No evidence of dissection. Atherosclerosis. Upper abdomen: There is marked bilateral renal atrophy. The spleen is enlarged. Tubes, Catheters, and Lines: None. Soft tissues: Unremarkable. Bones: Within normal limits for the patient's age.There are sternal wires in place. IMPRESSION: 1. No evidence of pulmonary embolism, thoracic aortic dissection or aneurysm. 2. Bilateral fjej-oh-ggdotcft emphysematous changes. 3. No focal consolidating infiltrates are seen. There is mild prominence of the interstitium which m ay represent interstitial edema. Pneumonia cannot be excluded. RADIATION DOSE DELIVERED: 240.92mGy.cm Total DLP DATA REPOSITORY: All CT scans at this facility are submitted to the National Radiology Data Registry (NRDR) Dose Index Registry (DIR) with the [employer] (A[employer]). RADIATION OPTIMIZATION: All CT scans at this facility use at least one of these dose optimization te chniques: automated exposure control; mA and/or kV adjustment per patient size (includes targeted exa ms where dose is matched to clinical indication); or iterative reconstruction.
--- NOTE | 2022-11-07 20:19 | DI.VRAD_ITS ---
PROCEDURE INFORMATION: Exam: XR Chest Exam date and time: 11/07/2022 7:51 PM Age: 57 years old Clinical indication: Shortness of breath; Prior surgery; Surgery date: 6+ months; Surgery type: Valve replacement; Patient HX: SOB TECHNIQUE: Imaging protocol: Radiologic exam of the chest. Views: 2 views. COMPARISON: CR XR PORTABLE CHEST AP 08/07/2022 7:30 PM FINDINGS: Tubes, catheters and devices: There are sternal wires consistent with previous sternotomy incision. Lungs: The lungs are hyperinflated, consistent with underlying small airways disease. There is pulmonary venous congestion. There is diffuse interstitial edema. Underlying inflammatory or infectious process not excluded. Pleural spaces: There are no pleural effusions. No evidence of pneumothorax. Heart/Mediastinum: The heart is enlarged. There is prominence of the mediastinum. Mitral and aortic valvular replacements. Bones/joints: The skeletal structures and soft tissues show no evidence of fracture or other acute processes. Soft tissues: The soft tissues of the extrathoracic region are unremarkable. Probable congestive heart failure. Underlying inflammatory or infectious process not excluded. IMPRESSION: 1. Congestive heart failure. 2. The lungs are hyperinflated, consistent with underlying small airways disease. 3. Mitral and aortic valvular replacements. Dictated and Authenticated by: Og Valadez MD. Ordering:MARGARET Flowers MD
[2022-11-07] MEDS: Omnipaque 350 MG/ML 100 ML BTL IJ (20:27)
[2022-11-07] MEDS: Normal Saline - Diluent 50 ML VIAL IJ (20:30)
[2022-11-07] MEDS: Normal Saline Flush 10 ML SYR IVP (20:31)
[2022-11-07] MEDS: Ondansetron 4 MG/2 ML VIAL IVP (21:07)
--- NOTE | 2022-11-07 21:27 | DI.VRAD_ITS ---
PROCEDURE INFORMATION: Exam: CTA Chest With Contrast Exam date and time: 11/07/2022 8:45 PM Age: 57 years old Clinical indication: Shortness of breath; Prior surgery; Surgery date: 1-6 months; Surgery type: Valve replacement; Patient HX: SOB, pleuritic pain, hypoxia, rle edema; Additional info: Dialysis PT. Chf, TECHNIQUE: Imaging protocol: Computed tomographic angiography of the chest with contrast. Exam focused on the arteries. 3D rendering (Not supervised by radiologist): MIP and/or 3D reconstructed images were created by the technologist. Radiation optimization: All CT scans at this facility use at least one of these dose optimization techniques: automated exposure control; mA and/or kV adjustment per patient size (includes targeted exams where dose is matched to clinical indication); or iterative reconstruction. Contrast material: OMNIPAQUE 350; Contrast volume: 59 ml; Contrast route: INTRAVENOUS (IV); COMPARISON: CT CHEST PE CTA 12/27/2021 4:43 PM FINDINGS: Tubes, catheters and devices: There are sternal wires consistent with previous sternotomy incision. Hemodialysis catheter present on prior study is no longer visualized. Pulmonary arteries: The pulmonary artery is enlarged at 4.8 cm. There has been replacement of the tricuspid valve. There has been replacement of the aortic valve. Great vessels off aortic arch: Fjeu-ni-rmkthnvf atherosclerosis of the great vessels. Aorta: The aorta demonstrates mild atherosclerotic calcification. Lungs: Bilateral upper lobe paraseptal and central lobular fqba-ke-vjqkekxd emphysematous changes. There is heterogeneous attenuation of the pulmonary parenchyma, consistent with air trapping from underlying small airways disease. There are diffuse interstitial infiltrates present. This may represent cardiogenic versus noncardiogenic edema. An acute inflammatory process and/or infectious process/pneumonia are not excluded. Pleural spaces: No pneumothorax. No pleural effusion. Heart: The heart is enlarged. There is left ventricular hypertrophy. The right ventricular to left ventricular ratio is normal measuring 0.9. No evidence of reflux of contrast into the inferior vena cava or hepatic veins to suggest right heart strain or pulmonary hypertension. Coronary arteries: There is moderate atherosclerotic calcification of the coronary arteries. Lymph nodes: Bilateral axillary adenopathy present. This was present on the prior study of 12/27/2021. Liver: Macronodular cirrhotic changes within the liver. The spleen is enlarged. Kidneys and ureters: Severe bilateral renal atrophy consistent with renal failure. Bones/joints: There are sternal wires consistent with previous sternotomy incision. The thoracic spine is unremarkable. Soft tissues: The soft tissues of the extrathoracic region are unremarkable. IMPRESSION: 1. Bilateral upper lobe paraseptal and central lobular gehy-sz-yzedeszh emphysematous changes. 2. There is heterogeneous attenuation of the pulmonary parenchyma, consistent with air trapping from underlying small airways disease. 3. There are diffuse interstitial infiltrates present. This may represent cardiogenic versus noncardiogenic edema. An acute inflammatory process and/or infectious process/pneumonia are not excluded. Dictated and Authenticated by: Og Valadez MD. Ordering:MARGARET Flowers MD
[2022-11-07] MEDS: levoFLOXacin 500 MG, levoFLOXacin 250 MG 750 MG PO (22:57)
== END 2022-11-07 23:19 | disposition home or self-care (01) ==
PROVIDERS: Emergency Provider Physician Assistant; PCP Family Medicine
DX: J44.1 Chronic obstructive pulmonary disease with (acute) exacerbation (principal); J18.9 Pneumonia, unspecified organism; N18.9 Chronic kidney disease, unspecified; R06.02 Shortness of breath
CPT/HCPCS: 36415; 71275; 80053; 93005; 96374; 96375; 99285; 71046; 84484; 85025; 85379; 85610; 85730; 93010; 99284; J2405; J2930; J3490; J7620

== ENCOUNTER 2022-11-11 13:35 | Emergency (ER) | payer OTHER, SELFPAY ==
--- NOTE | 2022-11-11 13:30 | RT.EKG_ITS ---
APPROVED REPORT Exam: Resting ECG Reason for Exam: Dyspnea Patient Location: E HR:82 bpm ECG Measurements Heart Rate 82 AXIS NE 149 P 4 QRSd 165 QRS 92 QT 449 T 19 QTc 526 Conclusion Sinus rhythm...normal P axis, V-rate 60- 99 RBBB and LPFB...QRSd >120mS, axis(90,210)
--- NOTE | 2022-11-11 13:30 | DI.RAD_ITS ---
Exam(s) XR CHEST 2V PA LATERAL EXAM: XR CHEST 2V PA LATERAL CLINICAL HISTORY: shortness of breath TECHNIQUE: 2D digital imaging was performed. COMPARISON: CR,XR XR CHEST 2V PA LATERAL from 11/07/[address] CHEST PE CTA from 11/07/2022 FINDINGS: HEART: Enlarged, unchanged. Valve prostheses again noted. Aorta: Not dilated. PULMONARY VASCULATURE: Normal. LUNGS: Clear. PLEURAL SPACE: No pleural effusion or pneumothorax. BONE:Sternal wires. IMPRESSION: Cardiomegaly. No acute abnormality. DATA REPOSITORY: RADIATION DOSE DELIVERED:
[2022-11-11 13:37] VITALS: BP 93/41; PULSE 83; RESP 24; O2SAT 99
[2022-11-11 13:42] VITALS: RESP 23
[2022-11-11 13:58] VITALS: RESP 18
[2022-11-11 14:26] VITALS: RESP 18; RESP 4
[2022-11-11] MEDS: Albuterol/Ipratropium 3 ML UPD VIAL UPD (14:26)
[2022-11-11 14:47] LABS: Abs Immature Grans 0.07 10^3/uL (0.0-0.06); Absolute Basophil Count 0.01 10^3/uL (0.0-0.2); Absolute Eosinophil Count 0.02 10^3/uL (0.0-0.7); Absolute Lymphocyte Count 0.38 10^3/uL (1.2-3.4); Absolute Monocyte Count 0.21 10^3/uL (0.1-0.8); Absolute Neutrophil Count 4.19 10^3/uL (1.2-6.7); Basophils % 0.2; Eosinophils % 0.4; HGB 10.9 g/dL (11.2-15.7); Immature Grans % 1.4; Lymphocytes % 7.8; MCH 29.1 pg (27.0-33.0); MCHC 32.1 % (32.0-36.0); MCV 91 fL (80-95); Monocytes % 4.3; Neutrophils % 85.9; Platelet Count 190 10^3/uL (130-400); RBC 3.74 10^6/uL (3.93-5.22); RDW 14.9 % (11.7-14.6); WBC 4.88 10^3/uL (4.4-10.8)
[2022-11-11 15:03] LABS: Diff Comment Agrees w/ Instrument; RBC Morphology Normal
[2022-11-11 15:11] LABS: ALT 37 U/L (14-59); AST 38 U/L (15-37); Albumin 3.7 g/dL (3.4-5.0); Alkaline Phosphatase 220 U/L (46-116); Anion Gap 10.3 mmol/L (3-11); BUN 14 mg/dL (7-18); Bilirubin, Total 0.5 mg/dL (0.2-1.0); CO2 29.7 mmol/L (21.0-32.0); Calcium 8.6 mg/dL (8.5-10.1); Chloride 94 mmol/L (98-107); Estimated GFR 28.25 (mL/min/1.73m2); Glucose 120 mg/dL (74-106); Magnesium 1.7 mg/dL (1.8-2.4); NT-proBNP 34228 pg/mL (<300); Sodium 134 mmol/L (136-145); Total Protein 7.4 g/dL (6.4-8.2); Troponin I < 50 ng/L (<or=60)
--- NOTE | 2022-11-11 15:42 | W.ED.GENAD ---
Discharge Plan Disposition Patient Disposition: Home Discharge Details Clinical Impression: COPD exacerbation Primary Care Provider: Chano Neves ED Provider: Benjy Espinoza Home Meds and New Rx's Prescriptions: New prednisone 20 mg tablet 40 mg PO DAILY Qty: 8 0RF No Action ondansetron HCl 4 mg tablet 4 mg PO ONCE PRN (Reason: nausea and vomiting) Qty: 1 0RF levofloxacin 250 mg tablet 250 mg PO DAILY Qty: 9 0RF Rx Instructions: 750mg on day 1: then 250mg daily day 2-7 prednisone 20 mg tablet 40 mg PO DAILY 5 Days Qty: 10 0RF benzonatate 100 mg capsule 100 mg PO TID PRN (Reason: cough) Qty: 14 0RF Spiriva with HandiHaler 18 mcg capsule, w/inhalation device 1 cap inhalation DAILY Qty: 1 0RF Rx Instructions: puncture 1 cap using device; one dose = 2 inhalations from [facility] albuterol sulfate 2.5 mg /3 mL (0.083 %) solution for nebulization 2.5 mg inhalation Q6H PRN (Reason: shortness of breath or wheezing) Qty: 3 0RF Rx Instructions: VA B complex-vitamin C-folic acid 0.8 mg tablet 1 tab PO DAILY sevelamer carbonate 800 mg tablet 400 mg PO TID Rx Instructions: must administer with a meal/food codeine-guaifenesin 10-100 mg/5 mL liquid See Rx Instructions PO Q6H PRN (Reason: cough) Qty: 120 0RF Rx Instructions: one to two teaspoons PO every 6 hours PRN cough ; aspirin 81 MG tablet,chewable 81 mg PO DAILY albuterol sulfate [ProAir HFA] 8.5 GM HFA aerosol inhaler 2 puff Inhalation Q4H PRN atorvastatin 40 mg tablet 20 mg PO DAILY minoxidil 2.5 mg tablet 5 mg PO QHS acetaminophen 325 mg capsule 325 mg PO ONCE PRN amlodipine 10 mg tablet 10 mg PO DAILY ipratropium-albuterol 0.5 mg-3 mg(2.5 mg base)/3 mL solution for nebulization 3 ml inhalation Q4H PRN (Reason: shortness of breath or wheezing) Qty: 180 3RF omeprazole 40 mg Capsule,Delayed Release(Dr/Ec) 40 mg PO BID meclizine 12.5 mg Tablet 12.5 mg PO PRN PRN prednisone 50 mg tablet 50 mg PO DAILY Qty: 5 0RF (DME) Aerochamber MV Spacer MISCELLANEOUS sucralfate 1 gram tablet 1 g PO DAILY Patient Comments: TAKE 1 TABLET BY MOUTH FOUR TIMES DAILY BEFORE MEALS AND AT BEDTIME loperamide 2 mg Capsule 2 mg PO PRN PRN diphenhydramine HCl 25 mg Tablet 25 mg PO PRN PRN calcitriol 1 mcg/mL Solution 1 mcg intraperitoneal 1XD prednisone 20 mg tablet 40 mg PO DAILY 4 Days Qty: 8 0RF levofloxacin 250 mg tablet 250 mg PO DAILY 4 Days Qty: 4 0RF Discharge Instructions Instructions: COPD (Chronic Obstructive Pulmonary Disease) (ED) Additional Instructions: Continue taking medication as prescribed and return to the emergency department for any new or significant worsening of symptoms. Continue to use your inhalers and if not improving follow-up with your primary care provider next week for reassessment. Referrals: Chano Neves MD [Primary Care Provider] - Discharge Data Discharge Date/Time-TO BE ENTERED AT DEPARTURE: 11/11/22 16:16 Medical Decision Making Patient presenting to the emergency department via EMS for shortness of breath and some chest tightness after dialysis. Patient states that she was over her typical Weight predialysis and had extra fluid taken off her today. Patient states it was 4 kg of fluid taken off over 5 hours. Patient states after dialysis she was having some shortness of breath. She does note that she did have recent COPD exacerbation with antibiotics and steroids given. This morning she finished her antibiotics and steroids but still feeling somewhat short of breath. Patient states this is similar to previous episodes of her COPD exacerbation while she does state some chest tightness still. This does not seem cardiac in nature. Physical exam shows significant diffuse wheezing throughout all lung knox otherwise unremarkable exam. Review of vital signs does show some hypotension but patient is asymptomatic and I feel this is probably secondary to removal of fluids. Will check labs and EKG. Pending results we will give patient DuoNeb Please see physician interpretation for full interpretation of EKG but upon my review patient is in sinus rhythm and has no worrisome findings to suggest acute STEMI Reviewed patient's labs and they are overall nondiagnostic compared to patient's baseline labs. Troponin negative. chest x-ray reviewed which shows cardiomegaly otherwise unremarkable. Patient reassessed and states significant improvement of symptoms, is requesting discharge home, reassess lungs and wheezing is pretty much resolved. Discussed with patient that we did not perform second troponin but given patient's history do feel that this is more respiratory than cardiac in nature. Patient is in agreement with this. We will replace patient on steroids but given that she just finished Levaquin do not feel that further antibiotics are needed. After discussion of diagnosis and plan of care patient has no further needs, questions, or concerns and states clear understanding to return to the emergency department for any worsening symptoms. This documentation was generated using 48domaination system, please disregard any oddities of phrase or misspellings. Imaging Data Radiologic Study: Imaging: X-Ray Radiologist's impression: Exam(s) XR CHEST 2V PA LATERAL EXAM: XR CHEST 2V PA LATERAL CLINICAL HISTORY: shortness of breath TECHNIQUE: 2D digital imaging was performed. COMPARISON: CR,XR XR CHEST 2V PA LATERAL from 11/07/[address] CHEST PE CTA from 11/07/2022 FINDINGS: HEART: Enlarged, unchanged. Valve prostheses again noted. Aorta: Not dilated. PULMONARY VASCULATURE: Normal. LUNGS: Clear. PLEURAL SPACE: No pleural effusion or pneumothorax. BONE:Sternal wires. IMPRESSION: Cardiomegaly. No acute abnormality. Lab Data Lab results reviewed: Yes I reviewed the patient's lab results. HPI General Mode of arrival: EMS. Date/Time Provider Initiated Documentation: 11/11/22 13:43. Limitations to Documentation: no limitations. Information obtained by: patient and RN notes reviewed. History of Present Illness 57 year old F presents to the emergency department with the chief complaint of Shortness of breath, chest tightness, described as moderate and similar to prior episodes, Patient started experiencing this hour(s) (5) and it has been constant. Medication improves symptom(s), No exacerbating factors reported . Patient notes no other symptoms.. Patient did receive the following treatments prior to arrival, other (Albuterol per EMS) Related Data Home Medications Medication Instructions Recorded Confirmed aspirin 81 mg chewable tablet 81 mg PO DAILY 05/24/16 11/11/22 albuterol sulfate 90 mcg/actuation 2 puff inhalation Q4H PRN 07/26/17 11/11/22 aerosol inhaler (ProAir HFA) inhalational spacing device 01/26/19 11/11/22 (Aerochamber MV spacer) meclizine 12.5 mg tablet 12.5 mg PO PRN PRN 03/18/19 11/11/22 omeprazole 40 mg capsule,delayed 40 mg PO BID 03/18/19 11/11/22 release atorvastatin 40 mg tablet 20 mg PO DAILY 10/24/19 11/11/22 albuterol sulfate 2.5 mg/3 mL 2.5 mg (3 mL) inhalation Q6H PRN 02/16/21 11/11/22 (0.083 %) solution for nebulization shortness of breath or wheezing #3 mL tiotropium bromide 18 mcg capsule 1 cap inhalation DAILY #1 inh 02/16/21 11/11/22 with inhalation device (Spiriva with HandiHaler) minoxidil 2.5 mg tablet 5 mg PO QHS 01/21/22 11/11/22 ondansetron HCl 4 mg tablet 4 mg PO ONCE PRN nausea and 02/08/22 11/11/22 vomiting #1 tab calcitriol 1 mcg/mL intravenous 1 mcg intraperitoneal 1XD 04/13/22 11/11/22 solution diphenhydramine HCl 25 mg tablet 25 mg PO PRN PRN 04/13/22 11/11/22 loperamide 2 mg capsule 2 mg PO PRN PRN 04/13/22 11/11/22 sucralfate 1 gram tablet 1 g PO DAILY 04/13/22 11/11/22 sevelamer carbonate 800 mg tablet 400 mg PO TID 04/19/22 11/11/22 vitamin B complex-vitamin C-folic 1 tab PO DAILY 04/19/22 11/11/22 acid 0.8 mg tablet codeine 10 mg-guaifenesin 100 mg/5 See Rx Instructions PO Q6H PRN 06/14/22 11/11/22 mL oral liquid cough #120 mL prednisone 50 mg tablet 50 mg PO DAILY #5 tabs 08/01/22 11/11/22 acetaminophen 325 mg capsule 325 mg PO ONCE PRN 08/23/22 11/11/22 amlodipine 10 mg tablet 10 mg PO DAILY 08/23/22 11/11/22 benzonatate 100 mg capsule 100 mg PO TID PRN cough #14 caps 09/01/22 11/11/22 levofloxacin 250 mg tablet 250 mg PO DAILY #9 tabs 09/01/22 11/11/22 prednisone 20 mg tablet 40 mg PO DAILY 5 days #10 tabs 09/01/22 11/11/22 ipratropium 0.5 mg-albuterol 3 mg 3 ml inhalation Q4H PRN shortness 10/10/22 11/11/22 (2.5 mg base)/3 mL nebulization of breath or wheezing #180 mL soln levofloxacin 250 mg tablet 250 mg PO DAILY 4 days #4 tabs 11/07/22 11/11/22 prednisone 20 mg tablet 40 mg PO DAILY 4 days #8 tabs 11/07/22 11/11/22 prednisone 20 mg tablet 40 mg PO DAILY #8 tabs 11/11/22 Previous Rx's Medication Instructions Recorded albuterol sulfate 2.5 mg/3 mL 2.5 mg (3 mL) inhalation Q6H PRN 02/16/21 (0.083 %) solution for nebulization shortness of breath or wheezing #3 mL tiotropium bromide 18 mcg capsule 1 cap inhalation DAILY #1 inh 02/16/21 with inhalation device (Spiriva with HandiHaler) ondansetron HCl 4 mg tablet 4 mg PO ONCE PRN nausea and 02/08/22 vomiting #1 tab codeine 10 mg-guaifenesin 100 mg/5 See Rx Instructions PO Q6H PRN 06/14/22 mL oral liquid cough #120 mL prednisone 50 mg tablet 50 mg PO DAILY #5 tabs 08/01/22 benzonatate 100 mg capsule 100 mg PO TID PRN cough #14 caps 09/01/22 levofloxacin 250 mg tablet 250 mg PO DAILY #9 tabs 09/01/22 prednisone 20 mg tablet 40 mg PO DAILY 5 days #10 tabs 09/01/22 ipratropium 0.5 mg-albuterol 3 mg 3 ml inhalation Q4H PRN shortness 10/10/22 (2.5 mg base)/3 mL nebulization of breath or wheezing #180 mL soln levofloxacin 250 mg tablet 250 mg PO DAILY 4 days #4 tabs 11/07/22 prednisone 20 mg tablet 40 mg PO DAILY 4 days #8 tabs 11/07/22 prednisone 20 mg tablet 40 mg PO DAILY #8 tabs 11/11/22 Allergies Allergy/AdvReac Type Severity Reaction Status Date / Time cephalexin monohydrate Allergy Severe trouble Verified 11/11/22 13:41 [From Keflex] breathing colchicine Allergy Verified 11/11/22 13:41 allopurinol AdvReac Intermediate gout Verified 11/11/22 13:41 breakout erythromycin base AdvReac Intermediate gout Verified 11/11/22 13:41 breakout acetaminophen [From Percocet] AdvReac Unverified 11/11/22 13:41 oxycodone [From Percocet] AdvReac Unverified 11/11/22 13:41 General Stated Complaint: SOB AWA: 2 Review of Systems Constitutional Constitutional: Denies chills, Denies fever(s) and Reports malaise Cardiovascular Cardiovascular: Reports as per HPI, Reports chest pain (Tightness), Denies chest pain with activity, Denies syncope, Denies irregular heart rhythm, Denies palpitations and Reports dyspnea Respiratory Respiratory: Reports cough, Denies hemoptysis, Reports dyspnea and Reports wheezing Gastrointestinal Gastrointestinal: Denies abdominal pain, Denies nausea and Denies vomiting Neurologic Neurologic: Denies syncope Psychiatric Psychiatric: Denies anxiety Endocrine Endocrine: Denies cold intolerance, Denies heat intolerance and Denies palpitations Allergic/Immunologic Allergic/Immunologic: Reports wheezing PFSH All Active Problems (Updated 11/11/22 @ 15:48 by Benjy Espinoza NP) COPD exacerbation (Acute) Pneumonia (Acute) Vaginal lesion (Acute) ESRD on dialysis (Chronic) On hemodialysis currently using central catheter-nephrology at [facility] receives dialysis at [facility] Depression (Acute 08/28/14) Gallstones (Acute) COPD (chronic obstructive pulmonary disease) (Chronic) Pulmonary at [facility] Central venous catheter in place (Acute ~10/29/19) [facility], right subclavian-dialysis Tricuspid regurgitation (Acute) s/p tricuspid valve replacement 02/2020, bovine Cirrhosis, alcoholic (Acute) POLST (Physician Orders for Life-Sustaining Treatment) (Acute) COLST completed 02/13/2020, DNR/DNI. Hemorrhage of arteriovenous fistula (Acute) Ventral hernia (Acute) Hypertension (Chronic) Aortic valve replaced (Acute) Bovine-with [facility] Personal history of nicotine dependence (Acute) 02/2021 Tobacco abuse (Acute) Lung nodule, solitary (Acute) Hemoptysis (Acute) Open abdominal wall wound (Acute) Fever (Acute) Neck pain (Acute) Right upper quadrant abdominal pain (Acute) Medical History Axillary lymphadenopathy Bleeding hemorrhoids (01/08/13) rectal bleeding (colonoscopy [facility] 01/01/13 internal hemorrhoids and diverticuli) Cannabis dependence CVD (cardiovascular disease) Cyst of ovary (08/20/12) Depression (09/14/12) Diverticulitis of large intestine without perforation or abscess with bleeding Essential hypertension (01/16/13) severe and labile Gastroesophageal reflux disease with esophagitis (02/03/15) Hyperlipidemia Hyperparathyroidism, unspecified (02/09/11) 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[facility] Macular degeneration of left eye (~10/17/19) [facility] Nail dystrophy Recurrent urinary tract infection Right heart failure Secondary hyperparathyroidism (of renal origin) Umbilical hernia repaired 1995,1997,2001,2003 Upper GI bleed (05/17/14) 05/15/14 [facility] EGD, HH, esophagitis, gastric ulcer and duodenitis Surgical History Abdominal hysterectomy (~2006) s/p hyst, but cervix still present and needs yearly PAP due to transplant H/O aortic valve replacement History of kidney transplant Repair of umbilical hernia 1995,1997,2001,2003 TRANSPLANT, KIDNEY (~1997) LEFT Family History Mother Essential hypertension Personal history of malignant neoplasm KIDNEY Heart disease Pulmonary emphysema Father Personal history of malignant neoplasm Pulmonary emphysema Brother Hyperlipidemia Brother Hyperlipidemia Brother No problems noted. Social History Smoking/Tobacco Use Status: Current every day Tobacco Type: cigarettes Smoking risk assessment performed?: Yes Alcohol Intake: former Drug use: Daily Substance use type: marijuana Details: mostly edibles Current gender identity: female Do you feel safe at home: Yes Do you feel safe in your relationship?: Yes Exam Const General: cooperative, comfortable, no acute distress, not diaphoretic and ill appearing chronically Orientation: alert, awake and oriented x3 Limitations: mental status not altered Resp Effort & Inspection: able to speak in complete sentences, labored and tachypneic Auscultation: wheezes expiratory wheezes and scattered wheezes Cardio Jugular venous pressure: no JVD Palpation: normal PMI Rate: regular rate Rhythm: regular rhythm Heart Sounds: S1 normal and S2 normal Skin General skin exam: no rashes or lesions noted Neuro General: patient alert, patient awake, patient oriented x3, tone normal and moves all extremities Course Vital Signs Vital signs: Vital Signs Pulse 83 11/11/22 13:37 Respiratory Rate 24 11/11/22 13:37 Blood Pressure 93/41 L 11/11/22 13:37 Pulse Oximetry 99 11/11/22 13:37 Pulse 83 11/11/22 13:37 Respiratory Rate 18 11/11/22 14:26 Respiratory Effort Short of Breath 11/11/22 13:58 Respiratory Depth Normal 11/11/22 13:58 Respiratory Pattern Normal 11/11/22 13:58 Blood Pressure 93/41 L 11/11/22 13:37 Blood Pressure Position Sitting 11/11/22 13:37 Pulse Oximetry 99 11/11/22 13:37 Oxygen Delivery Method Nasal Cannula 11/11/22 13:37 Oxygen Flow Rate 4 11/11/22 13:37 Pain Level 0 11/11/22 13:37 Lab/Test Results Lab/Test Results: Laboratory Tests Range/Units 11/11/22 11/11/22 14:40 14:40 WBC (4.4-10.8) 10^3/uL 4.88 RBC (3.93-5.22) 10^6/uL 3.74 L Hgb (11.2-15.7) g/dL 10.9 L Hct (36.0-46.0) % 34.0 L MCV (80-95) fL 91 MCH (27.0-33.0) pg 29.1 MCHC (32.0-36.0) % 32.1 RDW (11.7-14.6) % 14.9 H Plt Count (130-400) 10^3/uL 190 MPV (8.0-11.0) fL 12.0 H Immature Gran % 1.4 Neutrophils % 85.9 Lymphocytes % 7.8 Monocytes % 4.3 Eosinophils % 0.4 Basophils % 0.2 Nucleated RBC % (0.0-0.3) % 0.0 Absolute Neutrophils (1.2-6.7) 10^3/uL 4.19 Absolute Lymphocytes (1.2-3.4) 10^3/uL 0.38 L Absolute Monocytes (0.1-0.8) 10^3/uL 0.21 Absolute Eosinophils (0.0-0.7) 10^3/uL 0.02 Absolute Basophils (0.0-0.2) 10^3/uL 0.01 RBC Morphology Normal Sodium (136-145) mmol/L 134 L Potassium (3.5-5.1) mmol/L 4.0 Chloride (98-107) mmol/L 94 L Carbon Dioxide (21.0-32.0) mmol/L 29.7 Anion Gap (3-11) mmol/L 10.3 BUN (7-18) mg/dL 14 Creatinine (0.55-1.02) mg/dL 2.0 H Est GFR (CKD-EPI 2020) (mL/min/1.73m2) 28.25 Glucose (74-106) mg/dL 120 H Calcium (8.5-10.1) mg/dL 8.6 Magnesium (1.8-2.4) mg/dL 1.7 L Total Bilirubin (0.2-1.0) mg/dL 0.5 AST (15-37) U/L 38 H ALT (14-59) U/L 37 Alkaline Phosphatase (46-116) U/L 220 H Troponin I (<or=60) ng/L < 50 NT-Pro-B Natriuret Pep (<300) pg/mL 42483 H Total Protein (6.4-8.2) g/dL 7.4 Albumin (3.4-5.0) g/dL 3.7
[2022-11-11] MEDS: predniSONE 20 MG TAB 40 MG PO (16:01)
[2022-11-11] MEDS: Magnesium Oxide 400 MG TAB PO (16:01)
== END 2022-11-11 16:16 | disposition home or self-care (01) ==
PROVIDERS: Emergency Provider Nurse Practitioner Family; PCP Family Medicine
DX: J44.1 Chronic obstructive pulmonary disease with (acute) exacerbation (principal); R06.02 Shortness of breath
CPT/HCPCS: 36415; 80053; 93005; 94640; 99284; 71046; 83735; 83880; 84484; 85025; 93010; J7512; J7620

== ENCOUNTER 2022-11-13 10:46 | Emergency (ER) | payer OTHER, SELFPAY ==
--- NOTE | 2022-11-13 10:45 | RT.EKG_ITS ---
APPROVED REPORT Exam: Resting ECG Reason for Exam: Dyspnea Patient Location: E HR:75 bpm ECG Measurements Heart Rate 75 AXIS WA 159 P 13 QRSd 164 QRS 61 QT 435 T 11 QTc 485 Conclusion Sinus rhythm...normal P axis, V-rate 60- 99 Right bundle branch block...QRSd>120, terminal axis(90,270)
[2022-11-13 10:49] VITALS: BP 112/54; PULSE 73; RESP 18; O2SAT 96
--- NOTE | 2022-11-13 11:10 | W.ED.GENAD ---
Discharge Plan Disposition Patient Disposition: Home Condition: Stable Discharge Details Clinical Impression: Medication refill Primary Care Provider: Chano Neves ED Provider: Lyn Márquez Home Meds and New Rx's Prescriptions: New levofloxacin 250 mg tablet 250 mg PO DAILY Qty: 6 0RF Rx Instructions: Take one tablet daily for 6 days for a total of 10 days Continued ondansetron HCl 4 mg tablet 4 mg PO ONCE PRN (Reason: nausea and vomiting) Qty: 1 0RF prednisone 20 mg tablet 40 mg PO DAILY 5 Days Qty: 10 0RF Rx Instructions: 3/4 days of prednisone benzonatate 100 mg capsule 100 mg PO TID PRN (Reason: cough) Qty: 14 0RF Spiriva with HandiHaler 18 mcg capsule, w/inhalation device 1 cap inhalation DAILY Qty: 1 0RF Rx Instructions: puncture 1 cap using device; one dose = 2 inhalations from [facility] albuterol sulfate 2.5 mg /3 mL (0.083 %) solution for nebulization 2.5 mg inhalation Q6H PRN (Reason: shortness of breath or wheezing) Qty: 3 0RF Rx Instructions: VA B complex-vitamin C-folic acid 0.8 mg tablet 1 tab PO DAILY sevelamer carbonate 800 mg tablet 400 mg PO TID Rx Instructions: must administer with a meal/food codeine-guaifenesin 10-100 mg/5 mL liquid See Rx Instructions PO Q6H PRN (Reason: cough) Qty: 120 0RF Rx Instructions: one to two teaspoons PO every 6 hours PRN cough ; aspirin 81 MG tablet,chewable 81 mg PO DAILY albuterol sulfate [ProAir HFA] 8.5 GM HFA aerosol inhaler 2 puff Inhalation Q4H PRN atorvastatin 40 mg tablet 20 mg PO DAILY minoxidil 2.5 mg tablet 5 mg PO QHS acetaminophen 325 mg capsule 325 mg PO ONCE PRN amlodipine 10 mg tablet 10 mg PO DAILY omeprazole 40 mg Capsule,Delayed Release(Dr/Ec) 40 mg PO BID meclizine 12.5 mg Tablet 12.5 mg PO PRN PRN ipratropium-albuterol 0.5 mg-3 mg(2.5 mg base)/3 mL solution for nebulization 3 ml inhalation Q4H PRN (Reason: shortness of breath or wheezing) Qty: 180 3RF (DME) Aerochamber MV Spacer MISCELLANEOUS sucralfate 1 gram tablet 1 g PO DAILY Patient Comments: TAKE 1 TABLET BY MOUTH FOUR TIMES DAILY BEFORE MEALS AND AT BEDTIME loperamide 2 mg Capsule 2 mg PO PRN PRN diphenhydramine HCl 25 mg Tablet 25 mg PO PRN PRN calcitriol 1 mcg/mL Solution 1 mcg intraperitoneal 1XD Discharge Instructions Instructions: Shortness of Breath (ED) Additional Instructions: Please continue taking the previously prescribed prednisone as directed. A renewed prescription for 6 tablets of the levofloxacin was sent to the pharmacy on file. A refill for the albuterol and ipratropium solution was also sent to the pharmacy on file. [facility] in [place]. Please keep your dialysis appointment on Monday. Follow up with primary care provider in 3-5 days. Return to ED sooner if any worsening or concerns. At this time your EKG is unchanged. You have declined any further work-up for labs we cannot rule out an KS or anything serious going on. Thank you for allowing us to care for you today. Referrals: Chano Neves MD [Primary Care Provider] - Return if symptoms worsen Discharge Data Discharge Date/Time-TO BE ENTERED AT DEPARTURE: 11/13/22 11:43 Medical Decision Making 57-year-old female with past medical history of COPD exacerbation, depression, cirrhosis hypertension aortic valve replacement who is a dialysis patient with chronic stage III kidney failure presents to the ER for the second time in the last 48 hours with a chief complaint of shortness of breath. She was recently diagnosed with pneumonia and finished levofloxacin on Monday which she took for approximately 5 days. She reports that she is out of her albuterol ipratropium nebulizer solution. She did take 1 just prior to arrival. She is normally on 2 L nasal cannula which she presents with now. She denies any significant change in chest pain. At this time she is declining significant work-up and is just requesting her medication refills. She is due for her dialysis on Monday. EKG was reviewed by Dr. Cooper and myself ER attending, right bundle branch block, no significant change from previous. On physical exam patient does not have any rhonchi, wheezing or stridor. She is satting 95% on 2 L which she is normally on. She is declining any significant work-up for labs to rule out KS or further I did discuss the risks and benefits of this she verbalized understanding. She is requesting few more days of levofloxacin as she was placed on 4 days of antibiotic for pneumonia approximately 5 days ago. She is also requesting a refill of her albuterol and ipratropium nebulizer solution which was sent to the pharmacy on file. She has no significant increase in swelling. She is due for dialysis on Monday. She reports that she is felt much better than she has in a while here on arrival. She denies any significant chest pain or any other associated symptoms. Medications refilled instructed on strict return instructions and follow-up care encouraged her to keep her appointment on Monday for dialysis patient verbalized understanding remained hemodynamically stable throughout the remainder of her stay. This text was generated using [employer] system, please disregard any oddities of phrase or misspellings. Medical Records Medical records reviewed: Yes I reviewed the patient's medical records. Medical records narrative: Patient seen here on November 09 and November 11, 2022. 2 days ago. HPI General Mode of arrival: ambulatory. Date/Time Provider Initiated Documentation: 11/13/22 10:48. Limitations to Documentation: no limitations. Information obtained by: patient, RN notes reviewed and old records reviewed. HPI Narrative: 57-year-old female with past medical history of COPD exacerbation, depression, cirrhosis hypertension aortic valve replacement who is a dialysis patient with chronic stage III kidney failure presents to the ER for the second time in the last 48 hours with a chief complaint of shortness of breath. She was recently diagnosed with pneumonia and finished levofloxacin on Monday which she took for approximately 5 days. She reports that she is out of her albuterol ipratropium nebulizer solution. She did take 1 just prior to arrival. She is normally on 2 L nasal cannula which she presents with now. She denies any significant change in chest pain. At this time she is declining significant work-up and is just requesting her medication refills. She is due for her dialysis on Monday. Related Data Home Medications Medication Instructions Recorded Confirmed aspirin 81 mg chewable tablet 81 mg PO DAILY 05/24/16 11/13/22 albuterol sulfate 90 mcg/actuation 2 puff inhalation Q4H PRN 07/26/17 11/13/22 aerosol inhaler (ProAir HFA) inhalational spacing device 01/26/19 11/11/22 (Aerochamber MV spacer) meclizine 12.5 mg tablet 12.5 mg PO PRN PRN 03/18/19 11/13/22 omeprazole 40 mg capsule,delayed 40 mg PO BID 03/18/19 11/13/22 release atorvastatin 40 mg tablet 20 mg PO DAILY 10/24/19 11/13/22 albuterol sulfate 2.5 mg/3 mL 2.5 mg (3 mL) inhalation Q6H PRN 02/16/21 11/13/22 (0.083 %) solution for nebulization shortness of breath or wheezing #3 mL tiotropium bromide 18 mcg capsule 1 cap inhalation DAILY #1 inh 02/16/21 11/13/22 with inhalation device (Spiriva with HandiHaler) minoxidil 2.5 mg tablet 5 mg PO QHS 01/21/22 11/13/22 ondansetron HCl 4 mg tablet 4 mg PO ONCE PRN nausea and 02/08/22 11/13/22 vomiting #1 tab calcitriol 1 mcg/mL intravenous 1 mcg intraperitoneal 1XD 04/13/22 11/13/22 solution diphenhydramine HCl 25 mg tablet 25 mg PO PRN PRN 04/13/22 11/13/22 loperamide 2 mg capsule 2 mg PO PRN PRN 04/13/22 11/13/22 sucralfate 1 gram tablet 1 g PO DAILY 04/13/22 11/13/22 sevelamer carbonate 800 mg tablet 400 mg PO TID 04/19/22 11/13/22 vitamin B complex-vitamin C-folic 1 tab PO DAILY 04/19/22 11/13/22 acid 0.8 mg tablet codeine 10 mg-guaifenesin 100 mg/5 See Rx Instructions PO Q6H PRN 06/14/22 11/13/22 mL oral liquid cough #120 mL acetaminophen 325 mg capsule 325 mg PO ONCE PRN 08/23/22 11/13/22 amlodipine 10 mg tablet 10 mg PO DAILY 08/23/22 11/13/22 benzonatate 100 mg capsule 100 mg PO TID PRN cough #14 caps 09/01/22 11/13/22 prednisone 20 mg tablet 40 mg PO DAILY 5 days #10 tabs 09/01/22 11/13/22 ipratropium 0.5 mg-albuterol 3 mg 3 ml inhalation Q4H PRN shortness 11/13/22 (2.5 mg base)/3 mL nebulization of breath or wheezing #180 mL soln levofloxacin 250 mg tablet 250 mg PO DAILY Pneumonia #6 tabs 11/13/22 Previous Rx's Medication Instructions Recorded albuterol sulfate 2.5 mg/3 mL 2.5 mg (3 mL) inhalation Q6H PRN 02/16/21 (0.083 %) solution for nebulization shortness of breath or wheezing #3 mL tiotropium bromide 18 mcg capsule 1 cap inhalation DAILY #1 inh 02/16/21 with inhalation device (Spiriva with HandiHaler) ondansetron HCl 4 mg tablet 4 mg PO ONCE PRN nausea and 02/08/22 vomiting #1 tab codeine 10 mg-guaifenesin 100 mg/5 See Rx Instructions PO Q6H PRN 06/14/22 mL oral liquid cough #120 mL benzonatate 100 mg capsule 100 mg PO TID PRN cough #14 caps 09/01/22 prednisone 20 mg tablet 40 mg PO DAILY 5 days #10 tabs 09/01/22 ipratropium 0.5 mg-albuterol 3 mg 3 ml inhalation Q4H PRN shortness 11/13/22 (2.5 mg base)/3 mL nebulization of breath or wheezing #180 mL soln levofloxacin 250 mg tablet 250 mg PO DAILY Pneumonia #6 tabs 11/13/22 Allergies Allergy/AdvReac Type Severity Reaction Status Date / Time cephalexin monohydrate Allergy Severe trouble Verified 11/11/22 13:41 [From Keflex] breathing colchicine Allergy Verified 11/11/22 13:41 allopurinol AdvReac Intermediate gout Verified 11/11/22 13:41 breakout erythromycin base AdvReac Intermediate gout Verified 11/11/22 13:41 breakout acetaminophen [From Percocet] AdvReac Unverified 11/11/22 13:41 oxycodone [From Percocet] AdvReac Unverified 11/11/22 13:41 General Stated Complaint: RespSymp AWA: 3 Review of Systems All systems reviewed & are unremarkable except as noted in HPI and below Constitutional Constitutional: Denies snoring Cardiovascular Cardiovascular: Reports as per HPI, Denies pedal edema, Denies edema, Denies leg edema, Denies lightheadedness and Reports dyspnea Respiratory Respiratory: Reports chest congestion, Denies excessive phlegm production, Reports dyspnea, Denies snoring, Denies stridor and Denies wheezing Allergic/Immunologic Allergic/Immunologic: Denies wheezing PFSH All Active Problems (Updated 11/13/22 @ 11:31 by Lyn Márquez NP) COPD exacerbation (Acute) Pneumonia (Acute) Medication refill (Acute) Vaginal lesion (Acute) ESRD on dialysis (Chronic) On hemodialysis currently using central catheter-nephrology at [facility] receives dialysis at [facility] region Depression (Acute 08/28/14) Gallstones (Acute) COPD (chronic obstructive pulmonary disease) (Chronic) Pulmonary at [facility] Central venous catheter in place (Acute ~10/29/19) [facility], right subclavian-dialysis Tricuspid regurgitation (Acute) s/p tricuspid valve replacement 02/2020, bovine Cirrhosis, alcoholic (Acute) POLST (Physician Orders for Life-Sustaining Treatment) (Acute) COLST completed 02/13/2020, DNR/DNI. Hemorrhage of arteriovenous fistula (Acute) Ventral hernia (Acute) Hypertension (Chronic) Aortic valve replaced (Acute) Bovine-with [facility] Personal history of nicotine dependence (Acute) 02/2021 Tobacco abuse (Acute) Lung nodule, solitary (Acute) Hemoptysis (Acute) Open abdominal wall wound (Acute) Fever (Acute) Neck pain (Acute) Right upper quadrant abdominal pain (Acute) Medical History Axillary lymphadenopathy Bleeding hemorrhoids (01/08/13) rectal bleeding (colonoscopy [facility] 01/01/13 internal hemorrhoids and diverticuli) Cannabis dependence CVD (cardiovascular disease) Cyst of ovary (08/20/12) Depression (09/14/12) Diverticulitis of large intestine without perforation or abscess with bleeding Essential hypertension (01/16/13) severe and labile Gastroesophageal reflux disease with esophagitis (02/03/15) Hyperlipidemia Hyperparathyroidism, unspecified (02/09/11) 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[facility] Macular degeneration of left eye (~10/17/19) [facility] Nail dystrophy Recurrent urinary tract infection Right heart failure Secondary hyperparathyroidism (of renal origin) Umbilical hernia repaired 1995,1997,2001,2003 Upper GI bleed (05/17/14) 05/15/14 [facility] EGD, HH, esophagitis, gastric ulcer and duodenitis Surgical History Abdominal hysterectomy (~2006) s/p hyst, but cervix still present and needs yearly PAP due to transplant H/O aortic valve replacement History of kidney transplant Repair of umbilical hernia 1995,1997,2001,2003 TRANSPLANT, KIDNEY (~1997) LEFT Family History Mother Essential hypertension Personal history of malignant neoplasm KIDNEY Heart disease Pulmonary emphysema Father Personal history of malignant neoplasm Pulmonary emphysema Brother Hyperlipidemia Brother Hyperlipidemia Brother No problems noted. Social History Smoking/Tobacco Use Status: Current every day Tobacco Type: cigarettes Smoking risk assessment performed?: Yes Alcohol Intake: former Drug use: Daily Substance use type: marijuana Details: mostly edibles Current gender identity: female Do you feel safe at home: Yes Do you feel safe in your relationship?: Yes Exam Narrative Exam Narrative: Constitutional: Alert and oriented x3. Appears stated age. Normal body habitus. Patient does appear chronically ill, nontoxic she is alert and oriented x4. Sitting up in bed on 2 L oxygen. Head: Normocephalic, no trauma. Eyes: Pupils PERRL, Red reflex noted, EOM's intact. Eyelids symmetrical without lesions, discharge, or swelling. No scleral icterus. Chest: RRR, Normal S1, S2, distal pulses intact. EKG shows right bundle branch block which is unchanged from previous. Resp: Lungs diminished to auscultation bilaterally, no wheezes, rales, or rhonchi. Abdomen: Soft, non-distended, Normoactive bowel sounds all 4 quads. Musculoskeletal: Normal gait, 5/5 strength to all four extremities. No swelling noted in her lower extremities. Skin: No suspicious rashes or lesions. Capillary refill less than 2 sec. Neurologic: Cranial nerves II-XII intact. Alert and oriented x 3. Motor: No deficits noted. Hematologic/Lymphatic: No ecchymosis, no lymphadenopathy. Course Vital Signs Vital signs: Vital Signs Pulse 73 11/13/22 10:49 Respiratory Rate 18 11/13/22 10:49 Blood Pressure 112/54 L 11/13/22 10:49 Pulse Oximetry 96 11/13/22 10:49 Pulse 73 11/13/22 10:49 Respiratory Rate 18 11/13/22 10:49 Respiratory Effort Short of Breath 11/13/22 10:57 Blood Pressure 112/54 L 11/13/22 10:49 Blood Pressure Position Sitting 11/13/22 10:49 Pulse Oximetry 96 11/13/22 10:49 Oxygen Delivery Method Nasal Cannula 11/13/22 10:49 Oxygen Flow Rate 2 11/13/22 10:49 Pain Level 3 11/13/22 10:49
[2022-11-13] MEDS: levoFLOXacin 250 MG TAB PO (11:43)
[2022-11-13] MEDS: levoFLOXacin 250 MG TAB 500 MG PO (11:43)
[2022-11-13 11:44] VITALS: BP 114/78; PULSE 87; RESP 24; TEMP 37; O2SAT 93
== END 2022-11-13 11:43 | disposition home or self-care (01) ==
PROVIDERS: Emergency Provider Registered Nurse Emergency; PCP Family Medicine
DX: Z76.0 Encounter for issue of repeat prescription (principal); I45.19 Other right bundle-branch block; J44.9 Chronic obstructive pulmonary disease, unspecified; I10 Essential (primary) hypertension; I12.9 Hypertensive chronic kidney disease with stage 1 through stage 4 chronic kidney disease, or unspecified chronic kidney disease; N18.30 Chronic kidney disease, stage 3 unspecified; N17.9 Acute kidney failure, unspecified; Z95.2 Presence of prosthetic heart valve; Z94.0 Kidney transplant status; Z99.2 Dependence on renal dialysis; Z99.81 Dependence on supplemental oxygen; Z79.899 Other long term (current) drug therapy
CPT/HCPCS: 93005; 99283; 93010

== ENCOUNTER 2022-11-28 07:16 | Emergency (ER) | payer OTHER, SELFPAY ==
[2022-11-28] VITALS (40 sets, daily range): BP systolic 76–232; BP diastolic 23–137; PULSE 62–146; RESP 15–32; TEMP 36.8; O2SAT 84–100
[2022-11-28] MEDS: EPINEPHrine 0.3 MG KIT IM (07:42)
[2022-11-28] MEDS: diphenhydrAMINE 50 MG/ML VIAL IM/IVP (07:42)
[2022-11-28] MEDS: methylPREDNISolone SUCC 125 MG VIAL IVP (07:54)
[2022-11-28] MEDS: Ketamine 500 MG/10 ML VIAL 50 MG IVP ×2 (08:16→08:17)
[2022-11-28] MEDS: PROPOFOL 1,000 MG/100 ML BTL 16.8 MG (08:19)
[2022-11-28] MEDS: Lidocaine 2% Multi-Dose 50 ML VIAL (08:20)
[2022-11-28] MEDS: fentaNYL 100 MCG/2 ML VIAL (08:31)
--- NOTE | 2022-11-28 08:45 | DI.RAD_ITS ---
Exam(s) XR PORTABLE CHEST AP EXAM: XR PORTABLE CHEST AP CLINICAL HISTORY: post line TECHNIQUE: 2D digital imaging was performed. COMPARISON: CR XR CHEST 2V PA LATERAL from 11/11/2022 FINDINGS: Exam limited by overlying monitoring leads. LUNGS: Clear where visualized. No pleural abnormality seen. HEART: Enlarged. Valve prostheses again noted. AORTA: Normal diameter. BONES: Wires. Soft tissues: Endotracheal tube is been inserted with the tip lying at the level of the aortic arch. IMPRESSION: Satisfactory placement of endotracheal tube. DATA REPOSITORY: RADIATION DOSE DELIVERED:
--- NOTE | 2022-11-28 08:59 | ED.GENADUL_ITS ---
Discharge Plan Disposition Patient Disposition: Transfer-Acute Inpatient Care Specific Acute Inpt Facility: [facility] Discharge Details Clinical Impression: Angioedema, Ventricular tachycardia, Dialysis patient, Respiratory failure Primary Care Provider: Chano Neves ED Provider: Hortencia Childers Home Meds and New Rx's Prescriptions: No Action ondansetron HCl 4 mg tablet 4 mg PO ONCE PRN (Reason: nausea and vomiting) Qty: 1 0RF benzonatate 100 mg capsule 100 mg PO TID PRN (Reason: cough) Qty: 14 0RF Spiriva with HandiHaler 18 mcg capsule, w/inhalation device 1 cap inhalation DAILY Qty: 1 0RF Rx Instructions: puncture 1 cap using device; one dose = 2 inhalations from [facility] albuterol sulfate 2.5 mg /3 mL (0.083 %) solution for nebulization 2.5 mg inhalation Q6H PRN (Reason: shortness of breath or wheezing) Qty: 3 0RF Rx Instructions: VA B complex-vitamin C-folic acid 0.8 mg tablet 1 tab PO DAILY sevelamer carbonate 800 mg tablet 400 mg PO TID Rx Instructions: must administer with a meal/food codeine-guaifenesin 10-100 mg/5 mL liquid See Rx Instructions PO Q6H PRN (Reason: cough) Qty: 120 0RF Rx Instructions: one to two teaspoons PO every 6 hours PRN cough ; aspirin 81 MG tablet,chewable 81 mg PO DAILY albuterol sulfate [ProAir HFA] 8.5 GM HFA aerosol inhaler 2 puff Inhalation Q4H PRN atorvastatin 40 mg tablet 20 mg PO DAILY minoxidil 2.5 mg tablet 5 mg PO QHS acetaminophen 325 mg capsule 325 mg PO ONCE PRN amlodipine 10 mg tablet 10 mg PO DAILY omeprazole 40 mg Capsule,Delayed Release(Dr/Ec) 40 mg PO BID meclizine 12.5 mg Tablet 12.5 mg PO PRN PRN levofloxacin 250 mg tablet 250 mg PO DAILY Qty: 6 0RF Rx Instructions: Take one tablet daily for 6 days for a total of 10 days ipratropium-albuterol 0.5 mg-3 mg(2.5 mg base)/3 mL solution for nebulization 3 ml inhalation Q4H PRN (Reason: shortness of breath or wheezing) Qty: 180 3RF (DME) Aerochamber MV Spacer MISCELLANEOUS sucralfate 1 gram tablet 1 g PO DAILY Patient Comments: TAKE 1 TABLET BY MOUTH FOUR TIMES DAILY BEFORE MEALS AND AT BEDTIME loperamide 2 mg Capsule 2 mg PO PRN PRN diphenhydramine HCl 25 mg Tablet 25 mg PO PRN PRN calcitriol 1 mcg/mL Solution 1 mcg intraperitoneal 1XD Medical Decision Making 57yo F with SOB, on dialysis, presents from dialysis for low O2 sat. Reassuring vital signs in triage. On my exam in the room, marked tongue swelling with difficult phonation, managing secretions, fullness/swelling to anterior-lateral neck bilaterally. Denies any prior history of this, any new medications, any nery inhibitors. Clear angioedema on exam (no obvious exposure, unclear if hereditary vs other etiology) with potentially impeding respiratory comprise should it progress. Patient states that she wants a breathing tube put in if necessary. Given IM epinephrine and IM benadyrl and transferred to resuscitation to room, respiratory therapy and anesthesia paged and preparations made for awake fiberoptic intubation. Attempt IV access without expeditious success; IO placed in left tibia and given IV methylprednisolone. FFP ordered. PIV subsequently placed in left hand. Airway anesthetized with topical lidocaine and patient given 50 of fentanyl for procedure. Orally intubated with bronchoscope successfully by Dr. Mohamud pulmonology at bedside; given 50 of ketamine post intubation and propofol gtt started. Given second dose of 50 of ketamine with good effect. Did have ~20 second run of v-tach post intubation/post ketamine during which she maintained a pulse and which resolved without innervation; placed on Zoll as a precaution and amiodarone brought to bedside. Central line placed in right fem. Post intubation CXR independently reviewed; ETT in good position, agree with radiology read below. EKG with RBBB, present on priors, no acute ischemic signs. On reassesmsent patient remains somewhat awake despite good dose of propofol; will add precedex gtt. Medical records reviewed; patient does have COLST from 2019 which is DNR/DNI/limited medical interventions. Labs sent and reviewed as below; consistent with known disease processes. Remainder of labs pending at this time including blood gas. Discussed with ICU team at [facility] and accepted under Dr. Fuchs to MICU at [facility]. Tryptase and C1 esterase sent out. Discussed with daughter/POA Hortencia Huang [phone] and updated regarding patient's status, condition, and plan. Transferred to [facility] via [facility]. Medical Records Medical records reviewed: Yes I reviewed the patient's medical records. Lab Data Lab results reviewed: Yes I reviewed the patient's lab results. Labs: Laboratory Tests Range/Units 11/28/22 11/28/22 11/28/22 09:25 09:25 09:25 WBC (4.4-10.8) 10^3/uL 8.38 RBC (3.93-5.22) 10^6/uL 3.15 L Hgb (11.2-15.7) g/dL 9.1 L Hct (36.0-46.0) % 29.8 L MCV (80-95) fL 95 MCH (27.0-33.0) pg 28.9 MCHC (32.0-36.0) % 30.5 L RDW (11.7-14.6) % 14.6 Plt Count (130-400) 10^3/uL 118 L MPV (8.0-11.0) fL 11.7 H Immature Gran % 0.8 Neutrophils % 89.4 Lymphocytes % 3.3 Monocytes % 2.4 Eosinophils % 3.7 Basophils % 0.4 Nucleated RBC % (0.0-0.3) % 0.0 Absolute Neutrophils (1.2-6.7) 10^3/uL 7.49 H Absolute Lymphocytes (1.2-3.4) 10^3/uL 0.28 L Absolute Monocytes (0.1-0.8) 10^3/uL 0.20 Absolute Eosinophils (0.0-0.7) 10^3/uL 0.31 Absolute Basophils (0.0-0.2) 10^3/uL 0.03 Sodium (136-145) mmol/L 137 Potassium (3.5-5.1) mmol/L 5.0 Chloride (98-107) mmol/L 97 L Carbon Dioxide (21.0-32.0) mmol/L 30.1 Anion Gap (3-11) mmol/L 9.9 BUN (7-18) mg/dL 58 H Creatinine (0.55-1.02) mg/dL 8.1 H* Est GFR (CKD-EPI 2020) (mL/min/1.73m2) 5.27 Glucose (74-106) mg/dL 100 Calcium (8.5-10.1) mg/dL 8.3 L Magnesium (1.8-2.4) mg/dL 1.9 Total Bilirubin (0.2-1.0) mg/dL 0.7 AST (15-37) U/L 21 ALT (14-59) U/L 23 Alkaline Phosphatase (46-116) U/L 296 H Total Protein (6.4-8.2) g/dL 6.7 Albumin (3.4-5.0) g/dL 3.3 L Patient ABO/Rh A Positive HPI General Date/Time Provider Initiated Documentation: 11/28/22 07:30 . Limitations to Documentation: no limitations . Information obtained by: patient . HPI Narrative: 57yo F with SOB, on dialysis, presents from dialysis for low O2 sat. Was not dialzed this morning. Reports face & tongue swelling, noted when she woke up this morning. No difficulty breathing. Never happened before. No new meds. Denies being on an ACEI. Otherwise in her usual state of health. Related Data Home Medications Medication Instructions Recorded Confirmed aspirin 81 mg chewable tablet 81 mg PO DAILY 05/24/16 11/17/22 albuterol sulfate 90 mcg/actuation 2 puff inhalation Q4H PRN 07/26/17 11/17/22 aerosol inhaler (ProAir HFA) inhalational spacing device 01/26/19 11/17/22 (Aerochamber MV spacer) meclizine 12.5 mg tablet 12.5 mg PO PRN PRN 03/18/19 11/17/22 omeprazole 40 mg capsule,delayed 40 mg PO BID 03/18/19 11/17/22 release atorvastatin 40 mg tablet 20 mg PO DAILY 10/24/19 11/17/22 albuterol sulfate 2.5 mg/3 mL 2.5 mg (3 mL) inhalation Q6H PRN 02/16/21 11/17/22 (0.083 %) solution for nebulization shortness of breath or wheezing #3 mL tiotropium bromide 18 mcg capsule 1 cap inhalation DAILY #1 inh 02/16/21 11/17/22 with inhalation device (Spiriva with HandiHaler) minoxidil 2.5 mg tablet 5 mg PO QHS 01/21/22 11/17/22 ondansetron HCl 4 mg tablet 4 mg PO ONCE PRN nausea and 02/08/22 11/17/22 vomiting #1 tab calcitriol 1 mcg/mL intravenous 1 mcg intraperitoneal 1XD 04/13/22 11/17/22 solution diphenhydramine HCl 25 mg tablet 25 mg PO PRN PRN 04/13/22 11/17/22 loperamide 2 mg capsule 2 mg PO PRN PRN 04/13/22 11/17/22 sucralfate 1 gram tablet 1 g PO DAILY 04/13/22 11/17/22 sevelamer carbonate 800 mg tablet 400 mg PO TID 04/19/22 11/17/22 vitamin B complex-vitamin C-folic 1 tab PO DAILY 04/19/22 11/17/22 acid 0.8 mg tablet codeine 10 mg-guaifenesin 100 mg/5 See Rx Instructions PO Q6H PRN 06/14/22 11/17/22 mL oral liquid cough #120 mL acetaminophen 325 mg capsule 325 mg PO ONCE PRN 08/23/22 11/17/22 amlodipine 10 mg tablet 10 mg PO DAILY 08/23/22 11/17/22 benzonatate 100 mg capsule 100 mg PO TID PRN cough #14 caps 09/01/22 11/17/22 ipratropium 0.5 mg-albuterol 3 mg 3 ml inhalation Q4H PRN shortness 11/13/22 11/17/22 (2.5 mg base)/3 mL nebulization of breath or wheezing #180 mL soln levofloxacin 250 mg tablet 250 mg PO DAILY Pneumonia #6 tabs 11/13/22 11/17/22 Previous Rx's Medication Instructions Recorded albuterol sulfate 2.5 mg/3 mL 2.5 mg (3 mL) inhalation Q6H PRN 02/16/21 (0.083 %) solution for nebulization shortness of breath or wheezing #3 mL tiotropium bromide 18 mcg capsule 1 cap inhalation DAILY #1 inh 02/16/21 with inhalation device (Spiriva with HandiHaler) ondansetron HCl 4 mg tablet 4 mg PO ONCE PRN nausea and 02/08/22 vomiting #1 tab codeine 10 mg-guaifenesin 100 mg/5 See Rx Instructions PO Q6H PRN 06/14/22 mL oral liquid cough #120 mL benzonatate 100 mg capsule 100 mg PO TID PRN cough #14 caps 09/01/22 ipratropium 0.5 mg-albuterol 3 mg 3 ml inhalation Q4H PRN shortness 11/13/22 (2.5 mg base)/3 mL nebulization of breath or wheezing #180 mL soln levofloxacin 250 mg tablet 250 mg PO DAILY Pneumonia #6 tabs 11/13/22 Allergies Allergy/AdvReac Type Severity Reaction Status Date / Time cephalexin monohydrate Allergy Severe trouble Verified 11/17/22 11:17 [From Keflex] breathing colchicine Allergy Verified 11/17/22 11:17 allopurinol AdvReac Intermediate gout Verified 11/17/22 11:17 breakout erythromycin base AdvReac Intermediate gout Verified 11/17/22 11:17 breakout acetaminophen [From Percocet] AdvReac Unverified 11/17/22 11:17 oxycodone [From Percocet] AdvReac Unverified 11/17/22 11:17 General Stated Complaint: Allergic AWA: 2 Review of Systems Narrative: see HPI PFSH All Active Problems (Updated 11/28/22 @ 10:38 by Hortencia Childers MD) Angioedema (Acute) Ventricular tachycardia (Chronic) Dialysis patient (Acute) Respiratory failure (Acute) Thrombocytopenia (Chronic) Angioedema (Acute) COPD exacerbation (Acute) Pneumonia (Acute) Medication refill (Acute) Vaginal lesion (Acute) ESRD on dialysis (Chronic) On hemodialysis currently using central catheter-nephrology at [facility] receives dialysis at [facility] Depression (Acute 08/28/14) Gallstones (Acute) COPD (chronic obstructive pulmonary disease) (Chronic) Pulmonary at [facility] Central venous catheter in place (Acute ~10/29/19) [facility], right subclavian-dialysis Tricuspid regurgitation (Acute) s/p tricuspid valve replacement 02/2020, bovine Cirrhosis, alcoholic (Acute) POLST (Physician Orders for Life-Sustaining Treatment) (Acute) COLST completed 02/13/2020, DNR/DNI. Hemorrhage of arteriovenous fistula (Acute) Ventral hernia (Acute) Hypertension (Chronic) Aortic valve replaced (Acute) Bovine-with [facility] Personal history of nicotine dependence (Acute) 02/2021 Tobacco abuse (Acute) Lung nodule, solitary (Acute) Hemoptysis (Acute) Open abdominal wall wound (Acute) Fever (Acute) Neck pain (Acute) Right upper quadrant abdominal pain (Acute) Medical History Axillary lymphadenopathy Bleeding hemorrhoids (01/08/13) rectal bleeding (colonoscopy [facility] 01/01/13 internal hemorrhoids and diverticuli) Cannabis dependence CVD (cardiovascular disease) Cyst of ovary (08/20/12) Depression (09/14/12) Diverticulitis of large intestine without perforation or abscess with bleeding Essential hypertension (01/16/13) severe and labile Gastroesophageal reflux disease with esophagitis (02/03/15) Hyperlipidemia Hyperparathyroidism, unspecified (02/09/11) 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[facility] Macular degeneration of left eye (~10/17/19) [facility] Nail dystrophy Recurrent urinary tract infection Right heart failure Secondary hyperparathyroidism (of renal origin) Umbilical hernia repaired 1995,1997,2001,2003 Upper GI bleed (05/17/14) 05/15/14 [facility] EGD, HH, esophagitis, gastric ulcer and duodenitis Surgical History Abdominal hysterectomy (~2006) s/p hyst, but cervix still present and needs yearly PAP due to transplant H/O aortic valve replacement History of kidney transplant Repair of umbilical hernia 1995,1997,2001,2003 TRANSPLANT, KIDNEY (~1997) LEFT Family History Mother Essential hypertension Personal history of malignant neoplasm KIDNEY Heart disease Pulmonary emphysema Father Personal history of malignant neoplasm Pulmonary emphysema Brother Hyperlipidemia Brother Hyperlipidemia Brother No problems noted. Social History Smoking/Tobacco Use Status: Current every day Tobacco Type: cigarettes Smoking risk assessment performed?: Yes Alcohol Intake: former Drug use: Daily Substance use type: marijuana Details: mostly edibles Current gender identity: female Do you feel safe at home: Yes Do you feel safe in your relationship?: Yes Exam Narrative Exam Narrative: General: Alert, no acute distress Head: Normocephalic, atraumatic Neck: Trachea midline. Anteriorlateral neck swelling/fullness, no warmth or erythema. ENT: MMM. Markedly swollen tongue. Unable to visualize posterior oropharynx. Cardiac: RRR, no murmurs appreciated Resp: No respiratory distress. Managing secretions. Faint lung sounds bilaterally. Abd: Soft, non-distended, nontender : No suprapubic tenderness. Neurologic: GCS 15. Moves all extremities freely against gravity Course Vital Signs Vital signs: Vital Signs Temperature 36.8 C 11/28/22 07:24 Pulse 77 11/28/22 07:24 Respiratory Rate 20 11/28/22 07:24 Blood Pressure 140/65 11/28/22 07:24 Pulse Oximetry 99 11/28/22 07:24 Temperature 36.8 C 11/28/22 07:24 Pulse 77 11/28/22 07:24 Respiratory Rate 20 11/28/22 07:24 Respiratory Effort Short of Breath, Labored 11/28/22 07:30 Blood Pressure 140/65 11/28/22 07:24 Blood Pressure Position Sitting 11/28/22 07:24 Pulse Oximetry 99 11/28/22 07:24 Oxygen Delivery Method Nasal Cannula 11/28/22 07:24 Oxygen Flow Rate 2 11/28/22 07:24 Critical Care Time Critical Care Time Critical Care Time: Yes Total Critical Care Time: 93 Attestation: Due to a high probability of clinically significant, life threatening dete rioration, the patient required my highest level of preparedness to intervene emergently and I personally spent this critical care time directly and personally managing the patient. This critical care time included obtaining a history; examining the patient; pulse oximetry; ordering and review of studies; arranging urgent treatment with development of a management plan; evaluation of patient's response to treatment; frequent reassessment; and, discussions with other providers as well as greater than 60 minutes physically present at the bedside. This critical care time was performed to assess and manage the high probability of imminent, life-threatening deterioration that could result in multi-organ failure. It was exclusive of separately billable procedures.
[2022-11-28] MEDS: fentaNYL 100 MCG/2 ML VIAL IVP (09:00)
--- NOTE | 2022-11-28 09:04 | W.ANESVAS ---
Central Venous Line Placement Date Performed: 11/28/22 Procedure Time: 08:45 Procedure Location: Emergency Department Requesting Provider: Toshia Israel Standard Monitors Applied: ECG, Blood Pressure, SpO2 and ETCO2 Pt. Position: Supine Timeout Performed: No Sedation Given (Indicate Dose Given): Directed by Requesting Provider Patient Mental Status: Sedated or Ventilated without meaningful communication Sterility: Hand Hygiene, Surgical Cap, Surgical Mask, Sterile Gloves, Sterile Drape/Sheet, Sterile Gown and Chlorhexidine Laterality: Right Insertion Site: Femoral Central Line Type: 7 Japanese and Triple Lumen Catheter Insertion Procedure: Other Dressing: Other Catheter Depth at Skin (cm): 0 Placement Confirmation: Other Ultrasound: Sterile probe cover and gel used Ultrasound Image Saved?: No Number of Attempts (See previous attempts in note section): 2 Procedure Tolerated: Other Procedure Outcome: Unsuccessful Procedure Comment: Recently intubated, with poor IV access, asked to place femoral line for urgent IV access, this was not a full sterile procedure. femoral vein identified on US, venous blood obtained, as wire was attempted to be advanced pt coughing and max up legs with loss of blood return, on cessation of coughing, blood return reobtained, but would be lost on return of cough/max. Switched to catheter over needle, but inadvertently accessed femoral artery. Catheter was removed, pressure was held, and attempts at venous access turned over to Jhonatan. Performed By: Aron Daniel
--- NOTE | 2022-11-28 09:30 | W.PULMCC ---
General Date of Service Date of service: 11/28/22 Time of Service: 08:15 Assessment and Plan Assessment and plan (1) Angioedema: Status: Acute (2) ESRD on dialysis: Status: Chronic (3) COPD (chronic obstructive pulmonary disease): Status: Chronic Qualifiers: COPD type: emphysema Emphysema type: unspecified Qualified Code(s): J43.9 - Emphysema, unspecified (4) Anemia: Status: Inactive (5) Thrombocytopenia: Status: Chronic (6) Respiratory failure: Status: Inactive Assessment and plan: This is a chronically unwell 57 yo who presented tot Ed and found to have angioedema. There are no signs of anaphylaxis (no other organ involvement, no rash, hemodynamically stable). This appears to be histamine mediated angioedema as she does not appear to be on ACEi and has not had any recent trauma, although the presentation is very classic for bradykinin-mediated angioedema with no other swelling present and primarily tongue involvement. I would recommend acutely treating both pathways. She has received FFP, epi, steroids, benadryl. I will add famotidine and would recommend TXA. She is intubated and has central femoral access (however procedure done emergently, so access should be changed to a more sterile line placement as able. Recommendations Pulmonary: Angioedema - s/p epi, benadryl, methylpred - recommend giving famotidine and TXA as well - s/p fiberoptic awake intubation - transfer to tertiary given ESRD on HD Respiratory failure - low tidal volume ventilation - RR for EtCO2 40-60 - titrate O2 for sats 88-92% - ETT placement satisfactory at 24cm at lip COPD - continue home pulm meds when able - recommend Duonebs standing q4h Cardiac: No acute concerns Renal: ESRD on HD - was due to HD today - transfer to [facility] with HD capabilities I&O: Intake & Output 11/25/22 11/26/22 11/27/22 11/28/22 23:59 23:59 23:59 23:59 Weight 58.967 kg GI Nutrition: No acute concerns Infectious Disease: No acute concerns Hematologic: Thrombocytopenia - monitor Neurologic: No acute concerns. patient alert and interactive prior to sedation. Endocrine: No acute concerns Lines: R femoral (done emergently) IO - recommend this be pulled now that there is IV access Code Status: Full Code Subjective Critical and life-threatening events over the past 24 hours: This is a chronically unwell 57 yo with ESRD on HD who presented to the ED from her dialysis center for a low O2 sat. She did not undergo HD this morning. She was found to have classic appearing tongue angioedema. She is not on an ACEi per report. I was called in an urgent manner out of concern for inability to perform endotracheal intubation. In the Ed she has been given IM epi, benadryl, mehylpred and FFP was ordered. She was a difficult stick so an IO had been placed prior to my arrival. On my assessment her vital signs were stable, but she clearly had airway compromise and needed urgent intubation. After an airway assessment with the glydescope the vocal cords and trachea were visible, however patient did not tolerate manipulation with glydescope and oropharyngeal trauma occurred so I recommended stopping this approach. I intubated the patient fiberoptically. I gave her fentanyl pre-intubation as this had to occur awake and sitting up. We also used an atomized with 2% lidocaine to attempt to anesthesize her pharynx and vocal cords. See intubation report for more details. Once the ETT was placed I gave her ketamine and ran propofol through her IO. She did remain suboptimally sedated for additional ketamine and fentanyl was given, in addition to getting a central line in the right femoral and Precedex being ordered for additional sedation. Exam Narrative Exam Narrative: Gen: In moderate distress, drooling with some blood mixed with saliva HENT: PERRL, nasal turbinates normal without erythema or inflammation, moist oral mucosa, isolated tongue swelling which fills her mouth. Chest: Moderate respiratory distress, bilateral wheeze Heart: regular rate and rhythym, no murmurs, rubs or gallops Abdomen: Non-distended, soft, non tender Extremities: No clubbing, edema, cyanosis, rashes Neuro: non focal, moves all extremities Psych: unable to assess Most Recent VS/Results Last Vital Signs Temp 36.8 C 11/28/22 07:24 Pulse 77 11/28/22 07:24 Resp 20 11/28/22 07:24 BP 140/65 11/28/22 07:24 Pulse Ox 99 11/28/22 07:24 Review of Systems Unobtainable due to endotracheal tube Time spent with patient Time spent in Critical Care: 120 Time spent in Critical care included: Performing procedures not included in c.c time, Coordination of care, Chart review, Documenting critically ill care, Time at immediate bedside and Discussing critically ill care with other medical staff Procedure Note Date of procedure: 11/28/22 Procedure: Central Line Placement Indication: No IV access Line Priority: Emergent Tip Confirmation: Not required - femoral Consent Obtained: No - emergent procedure Central Catheter Type: Non-Tunneled Non-Tunneled Catheter: Standard Line Location: Right femoral Final tip location satisfactory? Yes Line Lumens (#): 3 Line External Length:20cm Line Securement Device: Sutured Catheter Secured At: 20cm Central Line Methods: Procedure completed in emergent fashion. Sterile procedures completed to the best of our abilities, however would be considered a 'dirty' line and should be changed MARY. Modified Seldinger technique used for line placement without issue. Visualization of wire in femoral vein. Biopatch and sterile brandages placed. Good blood return and easily flushes for all three ports. Number of Attempts: 2 Number of Sites Attempted: 1 Number of Kits Used: 1 Central Line Operators: Aron Daniel was 1st attempt (see separate documentation); Toshia Israel second and successful attempt. Number Of Operators: 2 First Masking Machine Operator's Name: Toshia Israel MD Unless otherwise noted, there were no complications, no blood loss and no cultures obtained.
[2022-11-28 09:37] LABS: Abs Immature Grans 0.07 10^3/uL (0.0-0.06); Absolute Basophil Count 0.03 10^3/uL (0.0-0.2); Absolute Eosinophil Count 0.31 10^3/uL (0.0-0.7); Absolute Lymphocyte Count 0.28 10^3/uL (1.2-3.4); Absolute Neutrophil Count 7.49 10^3/uL (1.2-6.7); Basophils % 0.4; Eosinophils % 3.7; HCT 29.8 % (36.0-46.0); HGB 9.1 g/dL (11.2-15.7); Immature Grans % 0.8; Lymphocytes % 3.3; MCH 28.9 pg (27.0-33.0); MCHC 30.5 % (32.0-36.0); MCV 95 fL (80-95); MPV 11.7 fL (8.0-11.0); Monocytes % 2.4; Neutrophils % 89.4; Platelet Count 118 10^3/uL (130-400); RBC 3.15 10^6/uL (3.93-5.22); RDW 14.6 % (11.7-14.6); RDW-SD 50.7 fL; WBC 8.38 10^3/uL (4.4-10.8)
[2022-11-28] MEDS: Tranexamic Acid 1,000 MG/10 ML VIAL 1000 MG IVP (09:37)
[2022-11-28] MEDS: Norepinephrine in D5W 8 MG/250 ML BAG 9.375 MG IV (09:38)
[2022-11-28 09:59] LABS: ALT 23 U/L (14-59); AST 21 U/L (15-37); Albumin 3.3 g/dL (3.4-5.0); Alkaline Phosphatase 296 U/L (46-116); Anion Gap 9.9 mmol/L (3-11); BUN 58 mg/dL (7-18); Bilirubin, Total 0.7 mg/dL (0.2-1.0); CO2 30.1 mmol/L (21.0-32.0); Calcium 8.3 mg/dL (8.5-10.1); Chloride 97 mmol/L (98-107); Estimated GFR 5.27 (mL/min/1.73m2); Glucose 100 mg/dL (74-106); Magnesium 1.9 mg/dL (1.8-2.4); Sodium 137 mmol/L (136-145); Total Protein 6.7 g/dL (6.4-8.2)
[2022-11-28 10:00] LABS: CREATININE 8.1 mg/dL (0.55-1.02)
--- NOTE | 2022-11-28 10:00 | RT.EKG_ITS ---
APPROVED REPORT Exam: Resting ECG Reason for Exam: v tach Patient Location: E HR:93 bpm ECG Measurements Heart Rate 93 AXIS SD 177 P 17 QRSd 157 QRS 83 QT 410 T 40 QTc 511 Conclusion Sinus rhythm... V-rate 60- 99 Right bundle branch block.
--- NOTE | 2022-11-28 10:32 | W.PM.OP ---
Date of service: 11/28/22 Time of Service: 08:45 Operative Note Operative Note DATE OF PROCEDURE: 11/28/22
--- NOTE | 2022-11-28 10:47 | W.PM.OP ---
Date of service: 11/28/22 Time of Service: 08:45 Operative Note Operative Note DATE OF PROCEDURE: 11/28/22 Procedure Description: Fiberoptic endotracheal intubation Indication: Respiratory failure due to angioedema Procedure: Awake fiberoptic intubation Medications: 50mcg fentanyl, atomized 2% lidocaine Verbal consent for procedure obtained from patient emergently. Procedure: Patient was positioned in a seated position and was premedicated with atomized topical lidocaine in her oropharynx and 50mcg fentanyl. Anesthesia was able to visualize vocal cords with glydescope, however unable to pass ETT given patient intolerance and bloody oral secretions. 7.0 ETT loaded onto disposable bronchoscope. Oral airway placed to act as a bite block. Bronchoscope navigated into laryngopharynx where vocal cords were visualized. There was no clear edema of any surrounding structures. Bronchoscope was inserted into the trachea with some difficulty with vocal cord spasm, however this was short lived. The ETT was then inserted into the airway from the bronchoscope. Placement at 24cm at the lips. No significant desaturations during procedure. Once the ETT was secured in the airway, propofol infusion was started and ketamine was administered. EtCO2 verification on monitor and breath sounds appreciated. Patient was then placed on mechanical ventilator. CXR post intubation finds appropriate placement of ETT. No complications. Toshia Israel MD Pulmonary & Critical Care
[2022-11-28 10:55] LABS: Troponin I < 50 ng/L (<or=60)
[2022-11-28] MEDS: dexmedeTOMidine IN 0.9 % NACL 400 MCG/100 ML BTL 7 MCG IV (10:56)
--- NOTE | 2022-11-28 11:40 | NUR.NOTE ---
Oxygen tank, shoes and fitbit sent to [facility] [place] with patient via [facility]. Nursing Note:
[2022-12-02 14:59] LABS: C1 Esterase Inhib, Functional 86 %
== END 2022-11-28 11:24 | disposition short-term general hospital (02) ==
PROVIDERS: Emergency Provider Student in an Organized Health Care Education/Training Program; PCP Family Medicine
DX: T78.3XXA Angioneurotic edema, initial encounter (principal); N18.6 End stage renal disease; Z99.2 Dependence on renal dialysis; J43.9 Emphysema, unspecified; D64.9 Anemia, unspecified; D69.6 Thrombocytopenia, unspecified; J96.90 Respiratory failure, unspecified, unspecified whether with hypoxia or hypercapnia; I47.20 Ventricular tachycardia, unspecified
CPT/HCPCS: 31500; 36430; 80053; 82805; 83520; 86900; 86901; 93005; 96365; 96368; 96372; 96375; 99291; 99292; 71045; 83735; 84484; 85025; 86161; 93010; J0171; J1200; J2930; J3010; P9059

== ENCOUNTER 2023-01-16 12:32 | Emergency (ER) | payer OTHER, SELFPAY ==
[2023-01-16 12:34] VITALS: BP 159/36; PULSE 80; RESP 20; TEMP 37; O2SAT 95
--- NOTE | 2023-01-16 12:45 | DI.RAD_ITS ---
Exam(s) XR CHEST 2V PA LATERAL EXAM: XR CHEST 2V PA LATERAL CLINICAL HISTORY: shortness of breath TECHNIQUE: 2D digital imaging was performed of the chest. Two images were obtained. PA and lateral views were obtained. COMPARISON: CR XR CHEST 2V PA LATERAL from 11/11/2022 FINDINGS: MEDIASTINUM: Normal. HEART: Cardiomegaly. Stable valvular replacements. PULMONARY VASCULATURE: Normal. LUNGS: Clear. PLEURAL SPACE: No pleural effusion or pneumothorax. BONE:Within normal limits for the patient's age. OTHER FINDINGS:Normal. IMPRESSION: No acute pulmonary findings. DATA REPOSITORY: RADIATION DOSE DELIVERED:
--- NOTE | 2023-01-16 12:45 | RT.EKG_ITS ---
APPROVED REPORT Exam: Resting ECG Reason for Exam: dyspnea Patient Location: E HR:72 bpm ECG Measurements Heart Rate 72 AXIS MI 167 P -5 QRSd 165 QRS 51 QT 474 T 30 QTc 518 Conclusion Sinus rhythm...normal P axis, V-rate 60- 99 Right bundle branch block...QRSd>120, terminal axis(90,270)
--- NOTE | 2023-01-16 12:59 | ED.GENADUL_ITS ---
Discharge Plan Disposition Patient Disposition: Home Condition: Stable Discharge Details Clinical Impression: COPD exacerbation Primary Care Provider: Chano Neves ED Provider: Bhanu Hamilton Home Meds and New Rx's Prescriptions: New prednisone 20 mg tablet 40 mg PO DAILY 5 Days Qty: 10 0RF azithromycin 250 mg tablet See Rx Instructions .ROUTE .COMPLEX Qty: 6 0RF Rx Instructions: For 250 mg dose pack: take 500 mg today (day 1), then 250 mg for 4 days (days 2-5) Continued ondansetron HCl 4 mg tablet 4 mg PO ONCE PRN (Reason: nausea and vomiting) Qty: 1 0RF benzonatate 100 mg capsule 100 mg PO TID PRN (Reason: cough) Qty: 14 0RF tiotropium bromide [Spiriva with HandiHaler] 18 mcg capsule, w/inhalation device 1 cap inhalation DAILY Qty: 1 0RF Rx Instructions: puncture 1 cap using device; one dose = 2 inhalations from [facility] B complex-vitamin C-folic acid 0.8 mg tablet 1 tab PO DAILY sevelamer carbonate 800 mg tablet 400 mg PO TID Rx Instructions: must administer with a meal/food codeine-guaifenesin 10-100 mg/5 mL liquid See Rx Instructions PO Q6H PRN (Reason: cough) Qty: 120 0RF Rx Instructions: one to two teaspoons PO every 6 hours PRN cough ; aspirin 81 MG tablet,chewable 81 mg PO DAILY albuterol sulfate [ProAir HFA] 8.5 GM HFA aerosol inhaler 2 puff Inhalation Q4H PRN atorvastatin 40 mg tablet 20 mg PO DAILY minoxidil 2.5 mg tablet 5 mg PO QHS acetaminophen 325 mg capsule 325 mg PO ONCE PRN amlodipine 10 mg tablet 10 mg PO DAILY epinephrine 0.3 mg/0.3 mL auto-injector 0.3 mg IM ONCE PRN Rx Instructions: as a single dose; may repeat once nifedipine 60 mg tablet extended release 24hr 60 mg PO DAILY cetirizine [Zyrtec] 10 mg tablet 10 mg PO DAILY PRN budesonide-formoterol [Symbicort] 80-4.5 mcg/actuation HFA aerosol inhaler 2 puff inhalation BID prednisone 10 mg tablet 10 mg PO DAILY omeprazole 40 mg Capsule,Delayed Release(Dr/Ec) 40 mg PO BID meclizine 12.5 mg Tablet 12.5 mg PO PRN PRN levofloxacin 250 mg tablet 250 mg PO DAILY Qty: 6 0RF Rx Instructions: Take one tablet daily for 6 days for a total of 10 days ipratropium-albuterol 0.5 mg-3 mg(2.5 mg base)/3 mL solution for nebulization 3 ml inhalation Q4H PRN (Reason: shortness of breath or wheezing) Qty: 180 3RF albuterol sulfate 2.5 mg /3 mL (0.083 %) solution for nebulization 2.5 mg inhalation Q6H PRN (Reason: shortness of breath or wheezing) Qty: 3 0RF Rx Instructions: [facility] (DME) Aerochamber MV Spacer MISCELLANEOUS sucralfate 1 gram tablet 1 g PO DAILY Patient Comments: TAKE 1 TABLET BY MOUTH FOUR TIMES DAILY BEFORE MEALS AND AT BEDTIME loperamide 2 mg Capsule 2 mg PO PRN PRN diphenhydramine HCl 25 mg Tablet 25 mg PO PRN PRN calcitriol 1 mcg/mL Solution 1 mcg intraperitoneal 1XD No Action trazodone 50 mg tablet 50 mg PO HS Qty: 90 3RF Rx Instructions: 1 TAB HS Discharge Instructions Instructions: COPD (Chronic Obstructive Pulmonary Disease) (ED) Additional Instructions: You were seen in the emergency department for your COPD exacerbation, we are going to treat this with a 5-day burst of steroids as well as a 5-day azithromyc in antibiotic prescription. I have also refilled some albuterol nebulizer fluids sent to [facility] in [place] for your at home nebulizer treatments. Your complete blood count shows no signs of major infection, your metabolic panel shows no major electrolyte abnormalities, your chest x-ray shows no focal pneumonia or severe pulmonary edema and you were in no acute respiratory distress throughout visit. Please watch your condition closely and return for any worsening. Referrals: Chano Neves MD [Primary Care Provider] - Medical Decision Making This dictation utilizes [id number] dictation software and may contain unedited grammatical errors. 57 y/o F presents to ED today with a chief complaint of shortness of breath, cough, nausea/vomiting, headache. Onset and characteristics include days ago. Patient has relevant history of COPD, end-stage renal disease on dialysis, CVD, upper GI bleeding, HTN, Diverticulitis. Family and social history: heavy smoker. Pertinent exam findings / vital signs include wheezing, frail, benign abdomen, nontoxic vitals, neuro intact. Differential / pathologies of concern include Covid/Flu, PNA, Gastroenteritis, NOT Sepsis, End-stage renal disease, Pleural Effusion. Diagnostic studies of: -CBC, CMP, Trop I, BNP, CXR, EKG. -chronic BNP elevation- end-stage renal disease, no pulmonary edema on CXR -CXR clear of PNA/pleural effusion -EKG without ischemic changes -CBC benign -CMP benign -Trop I negative with reliable onset, no chest pain Interventions of: -DuoNeb, Tylenol, IV Methylprednisolone. ED Course: No acute decompensation or increasing respiratory distress third lengthy visit, patient was provided snack, counseled on results. Findings not consistent with hypoxemic respiratory failure, pneumonia, pulmonary edema or pleural effusion, the patient likely has an upper respiratory infection in the setting of severe COPD, I counseled her on careful monitoring at home and strict return criteria. Disposition of COPD Exacerbation. Assessment/Plan: Patient will trial 5 days of prednisone burst as well as antibiotics sent to [facility] in [place], they are comfortable with this plan and I counseled them on the negative results of their tests including CBC, CMP, counseled on chronic elevated BNP in the setting of dialysis but no evidence of pulmonary edema or strain on the heart with negative troponin and EKG within normal limits. Patient verbalized understanding of the plan and return to ED criteria and engaged in shared decision making. Medical Records Medical records reviewed: Yes I reviewed the patient's medical records. Imaging Data Radiologic Study: Imaging: X-Ray Radiologist's impression: XR CHEST 2V PA LATERAL EXAM: XR CHEST 2V PA LATERAL CLINICAL HISTORY: shortness of breath TECHNIQUE: 2D digital imaging was performed of the chest. Two images were obtained. PA and lateral views were obtained. COMPARISON: CR XR CHEST 2V PA LATERAL from 11/11/2022 FINDINGS: MEDIASTINUM: Normal. HEART: Cardiomegaly. Stable valvular replacements. PULMONARY VASCULATURE: Normal. LUNGS: Clear. PLEURAL SPACE: No pleural effusion or pneumothorax. BONE:Within normal limits for the patient's age. OTHER FINDINGS:Normal. IMPRESSION: No acute pulmonary findings. Lab Data Labs: Laboratory Tests Range/Units 01/16/23 01/16/23 01/16/23 12:55 13:00 15:52 WBC (4.4-10.8) 10^3/uL 3.85 L RBC (3.93-5.22) 10^6/uL 3.79 L Hgb (11.2-15.7) g/dL 11.1 L Hct (36.0-46.0) % 35.4 L MCV (80-95) fL 93 MCH (27.0-33.0) pg 29.3 MCHC (32.0-36.0) % 31.4 L RDW (11.7-14.6) % 15.1 H Plt Count (130-400) 10^3/uL 119 L MPV (8.0-11.0) fL 13.0 H Immature Gran % 0.3 Neutrophils % 58.6 Lymphocytes % 16.1 Monocytes % 11.2 Eosinophils % 12.2 Basophils % 1.6 Nucleated RBC % (0.0-0.3) % 0.0 Absolute Neutrophils (1.2-6.7) 10^3/uL 2.26 Absolute Lymphocytes (1.2-3.4) 10^3/uL 0.62 L Absolute Monocytes (0.1-0.8) 10^3/uL 0.43 Absolute Eosinophils (0.0-0.7) 10^3/uL 0.47 Absolute Basophils (0.0-0.2) 10^3/uL 0.06 Sodium (136-145) mmol/L 136 Potassium (3.5-5.1) mmol/L 3.7 Chloride (98-107) mmol/L 96 L Carbon Dioxide (21.0-32.0) mmol/L 31.0 Anion Gap (3-11) mmol/L 9.0 BUN (7-18) mg/dL 12 Creatinine (0.55-1.02) mg/dL 3.1 H Est GFR (CKD-EPI 2020) (mL/min/1.73m2) 16.70 Glucose (74-106) mg/dL 81 Calcium (8.5-10.1) mg/dL 9.3 Magnesium (1.8-2.4) mg/dL 2.0 Total Bilirubin (0.2-1.0) mg/dL 0.6 AST (15-37) U/L 19 ALT (14-59) U/L 15 Alkaline Phosphatase (46-116) U/L 186 H Troponin I (<or=60) ng/L < 50 Cancelled NT-Pro-B Natriuret Pep (<300) pg/mL 77325 H Total Protein (6.4-8.2) g/dL 7.9 Albumin (3.4-5.0) g/dL 4.2 COVID-19 Source Nasopharynx SARS-CoV-2 (PCR) (Negative) Negative Influenza Type A (PCR) (Negative) Negative Influenza Type B (PCR) (Negative) Negative RSV (PCR) (Negative) Negative HPI General Date/Time Provider Initiated Documentation: 01/16/23 12:42 . HPI Narrative: 57 year-old female presents to ED today by POV from dialysis visit with a chief complaint of SOB, nausea/vomiting since yesterday, headache with onset over the past few days. States she does not make urine. Quality described as just tired, short on breath, no radiation to chest pain, syncope, fever, intractable vomitin g. Severity is described as 7-8/10. Palliating factors include nothing specific attempted. Provoking factors include nothing specific. Events leading up to the incident/Associated Symptoms: Patient has known history of COPD, oxygen dependent, notes generalized cold syndrome onset over days. Patient not anticoagulated. Related Data Home Medications Medication Instructions Recorded Confirmed aspirin 81 mg chewable tablet 81 mg PO DAILY 05/24/16 12/07/22 albuterol sulfate 90 mcg/actuation 2 puff inhalation Q4H PRN 07/26/17 12/07/22 aerosol inhaler (ProAir HFA) inhalational spacing device 01/26/19 12/07/22 (Aerochamber MV spacer) meclizine 12.5 mg tablet 12.5 mg PO PRN PRN 03/18/19 12/07/22 omeprazole 40 mg capsule,delayed 40 mg PO BID 03/18/19 12/07/22 release atorvastatin 40 mg tablet 20 mg PO DAILY 10/24/19 12/07/22 tiotropium bromide 18 mcg capsule 1 cap inhalation DAILY #1 inh 02/16/21 12/07/22 with inhalation device (Spiriva with HandiHaler) minoxidil 2.5 mg tablet 5 mg PO QHS 01/21/22 12/07/22 ondansetron HCl 4 mg tablet 4 mg PO ONCE PRN nausea and 02/08/22 12/07/22 vomiting #1 tab calcitriol 1 mcg/mL intravenous 1 mcg intraperitoneal 1XD 04/13/22 12/07/22 solution diphenhydramine HCl 25 mg tablet 25 mg PO PRN PRN 04/13/22 12/07/22 loperamide 2 mg capsule 2 mg PO PRN PRN 04/13/22 12/07/22 sucralfate 1 gram tablet 1 g PO DAILY 04/13/22 12/07/22 sevelamer carbonate 800 mg tablet 400 mg PO TID 04/19/22 12/07/22 vitamin B complex-vitamin C-folic 1 tab PO DAILY 04/19/22 12/07/22 acid 0.8 mg tablet codeine 10 mg-guaifenesin 100 mg/5 See Rx Instructions PO Q6H PRN 06/14/22 12/07/22 mL oral liquid cough #120 mL acetaminophen 325 mg capsule 325 mg PO ONCE PRN 08/23/22 12/07/22 amlodipine 10 mg tablet 10 mg PO DAILY 08/23/22 12/07/22 benzonatate 100 mg capsule 100 mg PO TID PRN cough #14 caps 09/01/22 12/07/22 ipratropium 0.5 mg-albuterol 3 mg 3 ml inhalation Q4H PRN shortness 11/13/22 12/07/22 (2.5 mg base)/3 mL nebulization of breath or wheezing #180 mL soln levofloxacin 250 mg tablet 250 mg PO DAILY Pneumonia #6 tabs 11/13/22 12/07/22 trazodone 50 mg tablet 50 mg PO HS #90 tab-caps 12/07/22 12/07/22 budesonide-formoterol HFA 80 2 puff inhalation BID 01/04/23 mcg-4.5 mcg/actuation aerosol inhaler (Symbicort) cetirizine 10 mg tablet (Zyrtec) 10 mg PO DAILY PRN 01/04/23 epinephrine 0.3 mg/0.3 mL 0.3 mg IM ONCE PRN 01/04/23 injection, auto-injector nifedipine 60 mg tablet,extended 60 mg PO DAILY 01/04/23 release 24 hr prednisone 10 mg tablet 10 mg PO DAILY 01/04/23 albuterol sulfate 2.5 mg/3 mL 2.5 mg (3 mL) inhalation Q6H PRN 01/16/23 (0.083 %) solution for nebulization shortness of breath or wheezing #3 mL azithromycin 250 mg tablet See Rx Instructions PO .COMPLEX 01/16/23 COPD Exacerbation #6 tabs prednisone 20 mg tablet 40 mg (2 x 20 mg) PO DAILY COPD 01/16/23 Exacerbation 5 days #10 tabs Previous Rx's Medication Instructions Recorded tiotropium bromide 18 mcg capsule 1 cap inhalation DAILY #1 inh 02/16/21 with inhalation device (Spiriva with HandiHaler) ondansetron HCl 4 mg tablet 4 mg PO ONCE PRN nausea and 02/08/22 vomiting #1 tab codeine 10 mg-guaifenesin 100 mg/5 See Rx Instructions PO Q6H PRN 06/14/22 mL oral liquid cough #120 mL benzonatate 100 mg capsule 100 mg PO TID PRN cough #14 caps 09/01/22 ipratropium 0.5 mg-albuterol 3 mg 3 ml inhalation Q4H PRN shortness 11/13/22 (2.5 mg base)/3 mL nebulization of breath or wheezing #180 mL soln levofloxacin 250 mg tablet 250 mg PO DAILY Pneumonia #6 tabs 11/13/22 trazodone 50 mg tablet 50 mg PO HS #90 tab-caps 12/07/22 albuterol sulfate 2.5 mg/3 mL 2.5 mg (3 mL) inhalation Q6H PRN 01/16/23 (0.083 %) solution for nebulization shortness of breath or wheezing #3 mL azithromycin 250 mg tablet See Rx Instructions PO .COMPLEX 01/16/23 COPD Exacerbation #6 tabs prednisone 20 mg tablet 40 mg (2 x 20 mg) PO DAILY COPD 01/16/23 Exacerbation 5 days #10 tabs Allergies Allergy/AdvReac Type Severity Reaction Status Date / Time cephalexin monohydrate Allergy Severe trouble Verified 11/17/22 11:17 [From Keflex] breathing colchicine Allergy Verified 11/17/22 11:17 allopurinol AdvReac Intermediate gout Verified 11/17/22 11:17 breakout erythromycin base AdvReac Intermediate gout Verified 11/17/22 11:17 breakout acetaminophen [From Percocet] AdvReac Unverified 11/17/22 11:17 oxycodone [From Percocet] AdvReac Unverified 11/17/22 11:17 General Stated Complaint: SOB AWA: 3 PFSH All Active Problems (Updated 01/16/23 @ 15:04 by SHIRA Perdomo) COPD exacerbation (Acute) Vaginal bleeding (Acute) Thrombocytopenia (Chronic) Angioedema (Acute) Vaginal lesion (Acute) ESRD on dialysis (Chronic) On hemodialysis currently using central catheter-nephrology at [facility] rece derick dialysis at [facility] region Depression (Acute 08/28/14) Gallstones (Acute) COPD (chronic obstructive pulmonary disease) (Chronic) Pulmonary at [facility] Central venous catheter in place (Acute ~10/29/19) [facility], right subclavian-dialysis Tricuspid regurgitation (Acute) s/p tricuspid valve replacement 02/2020, bovine Cirrhosis, alcoholic (Acute) POLST (Physician Orders for Life-Sustaining Treatment) (Acute) COLST completed 02/13/2020, DNR/DNI. Hemorrhage of arteriovenous fistula (Acute) Ventral hernia (Acute) Hypertension (Chronic) Aortic valve replaced (Acute) Bovine-with [facility] Personal history of nicotine dependence (Acute) 02/2021 Tobacco abuse (Acute) Lung nodule, solitary (Acute) Hemoptysis (Acute) Open abdominal wall wound (Acute) Fever (Acute) Neck pain (Acute) Right upper quadrant abdominal pain (Acute) Medical History Axillary lymphadenopathy Bleeding hemorrhoids (01/08/13) rectal bleeding (colonoscopy [facility] 01/01/13 internal hemorrhoids and diverticuli) Cannabis dependence CVD (cardiovascular disease) Cyst of ovary (08/20/12) Depression (09/14/12) Diverticulitis of large intestine without perforation or abscess with bleeding Essential hypertension (01/16/13) severe and labile Gastroesophageal reflux disease with esophagitis (02/03/15) Hyperlipidemia Hyperparathyroidism, unspecified (02/09/11) 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[facility] Macular degeneration of left eye (~10/17/19) [facility] Nail dystrophy Recurrent urinary tract infection Right heart failure Secondary hyperparathyroidism (of renal origin) Umbilical hernia repaired 1995,1997,2001,2003 Upper GI bleed (05/17/14) 05/15/14 [facility] EGD, HH, esophagitis, gastric ulcer and duodenitis Surgical History Abdominal hysterectomy (~2006) s/p hyst, but cervix still present and needs yearly PAP due to transplant H/O aortic valve replacement History of kidney transplant Repair of umbilical hernia 1995,1997,2001,2003 TRANSPLANT, KIDNEY (~1997) LEFT Family History Mother Essential hypertension Personal history of malignant neoplasm KIDNEY Heart disease Pulmonary emphysema Father Personal history of malignant neoplasm Pulmonary emphysema Brother Hyperlipidemia Brother Hyperlipidemia Brother No problems noted. Social History Smoking/Tobacco Use Status: Current every day Tobacco Type: cigarettes Smoking risk assessment performed?: Yes Alcohol Intake: former Drug use: Daily Substance use type: marijuana Details: mostly edibles Current gender identity: female Do you feel safe at home: Yes Do you feel safe in your relationship?: Yes Exam Narrative Exam Narrative: GENERAL APPEARANCE: Well-nourished, non-toxic, awake and alert, atraumatic, no acute distress. SKIN: Warm, pink, dry, intact, without rashes/lesions/ulcerations. HEAD: Normocephalic, atraumatic, normal hair distribution for gender/age. EYES: Pupils PERRLA, EOMs intact without nystagmus, normal conjunctiva, no exudates on lids/lashes. ENT: Nares patent, no circumoral cyanosis, no facial swelling NECK: Supple, trachea midline, painless cervical ROM. LUNGS/CHEST: Lungs -wheezing diffusely, mildly labored respirations without accessory muscle use, normal A/P diameter, symmetrical expansion, no chest wall deformity HEART (CV/PV): Regular rate and rhythm without murmur, no peripheral edema, no JVD. ABDOMEN: Soft, non-distended, no guarding, no tenderness. MSK: Normal ROM, no swelling/deformity to bilateral UEs or LEs, moving all extremities without weakness, no cyanosis, spine midline without tenderness, normal curvature. NEURO: Mental Status AAOx4 - alert to person, place, time, events No facial droop, no forehead involvement. Motor: No focal weakness - strength 5/5 in bilateral UEs and LEs, proximal and distal, symmetric. Sensory: sensation intact to light touch globally. Gait normal: patient ambulated without ataxia into ED room. PSYCH: euthymic, cooperative, pleasant, appropriate speech Course Vital Signs Vital signs: Vital Signs Temperature 37.0 C 01/16/23 12:34 Pulse 80 01/16/23 12:34 Respiratory Rate 20 01/16/23 12:34 Blood Pressure 159/36 H 01/16/23 12:34 Pulse Oximetry 95 01/16/23 12:34 Temperature 37.0 C 01/16/23 12:34 Temperature Source Temporal Artery Scan 01/16/23 12:34 Pulse 80 01/16/23 12:34 Respiratory Rate 20 01/16/23 12:34 Blood Pressure 159/36 H 01/16/23 12:34 Blood Pressure Position Sitting 01/16/23 12:34 Pulse Oximetry 95 01/16/23 12:34 Oxygen Delivery Method Nasal Cannula 01/16/23 12:34 Oxygen Flow Rate 3 01/16/23 12:34 Pain Level 2 01/16/23 12:34
[2023-01-16 13:10] LABS: Abs Immature Grans 0.01 10^3/uL (0.0-0.06); Absolute Basophil Count 0.06 10^3/uL (0.0-0.2); Absolute Eosinophil Count 0.47 10^3/uL (0.0-0.7); Absolute Lymphocyte Count 0.62 10^3/uL (1.2-3.4); Absolute Monocyte Count 0.43 10^3/uL (0.1-0.8); Absolute Neutrophil Count 2.26 10^3/uL (1.2-6.7); Basophils % 1.6; Eosinophils % 12.2; HCT 35.4 % (36.0-46.0); HGB 11.1 g/dL (11.2-15.7); Immature Grans % 0.3; Lymphocytes % 16.1; MCH 29.3 pg (27.0-33.0); MCHC 31.4 % (32.0-36.0); MCV 93 fL (80-95); Monocytes % 11.2; Neutrophils % 58.6; Platelet Count 119 10^3/uL (130-400); RBC 3.79 10^6/uL (3.93-5.22); RDW 15.1 % (11.7-14.6); RDW-SD 51.2 fL; WBC 3.85 10^3/uL (4.4-10.8)
[2023-01-16] MEDS: Albuterol/Ipratropium 3 ML UPD VIAL 9 ML UPD (13:20)
[2023-01-16] MEDS: methylPREDNISolone SUCC 125 MG VIAL IVP (13:20)
[2023-01-16 13:34] LABS: ALT 15 U/L (14-59); AST 19 U/L (15-37); Albumin 4.2 g/dL (3.4-5.0); Alkaline Phosphatase 186 U/L (46-116); BUN 12 mg/dL (7-18); Bilirubin, Total 0.6 mg/dL (0.2-1.0); CREATININE 3.1 mg/dL (0.55-1.02); Calcium 9.3 mg/dL (8.5-10.1); Chloride 96 mmol/L (98-107); Glucose 81 mg/dL (74-106); Potassium 3.7 mmol/L (3.5-5.1); Sodium 136 mmol/L (136-145); Total Protein 7.9 g/dL (6.4-8.2); Troponin I < 50 ng/L (<or=60)
[2023-01-16 13:47] LABS: COVID-19 PCR Negative (Negative); Influenza A PCR Negative (Negative); Influenza B PCR Negative (Negative); RSV PCR Negative (Negative)
[2023-01-16 13:48] LABS: Source Nasopharynx
[2023-01-16] MEDS: ACETAMINOPHEN 1,000 MG/100 ML BTL 400 MG IVPB (13:55)
[2023-01-16 15:18] VITALS: BP 148/70; RESP 20; O2SAT 96
== END 2023-01-16 15:20 | disposition home or self-care (01) ==
PROVIDERS: Emergency Provider Physician Assistant; PCP Family Medicine
DX: J44.1 Chronic obstructive pulmonary disease with (acute) exacerbation (principal); N25.81 Secondary hyperparathyroidism of renal origin; I12.0 Hypertensive chronic kidney disease with stage 5 chronic kidney disease or end stage renal disease; N18.6 End stage renal disease; I25.10 Atherosclerotic heart disease of native coronary artery without angina pectoris; Z99.2 Dependence on renal dialysis; Z95.2 Presence of prosthetic heart valve; Z20.822 Contact with and (suspected) exposure to COVID-19
CPT/HCPCS: 80053; 87637; 93005; 96374; 96375; 99284; 71046; 83735; 83880; 84484; 85025; 93010; J0131; J2930; J7620

== ENCOUNTER 2023-01-27 12:52 | Emergency (ER) | payer OTHER, SELFPAY ==
[2023-01-27 12:45] VITALS: BP 165/75; PULSE 72; RESP 22; TEMP 36.8; O2SAT 97
[2023-01-27 13:00] VITALS: RESP 22; O2SAT 97
--- NOTE | 2023-01-27 13:07 | ED.GENADUL_ITS ---
Discharge Plan Disposition Patient Disposition: Home Condition: Improving Discharge Details Chief Complaint: SOB Clinical Impression: COPD exacerbation Primary Care Provider: Chano Neves ED Provider: Best Daniels Home Meds and New Rx's Prescriptions: No Action ondansetron HCl 4 mg tablet 4 mg PO ONCE PRN (Reason: nausea and vomiting) Qty: 1 0RF benzonatate 100 mg capsule 100 mg PO TID PRN (Reason: cough) Qty: 14 0RF trazodone 50 mg tablet 50 mg PO HS Qty: 90 3RF Rx Instructions: 1 TAB HS tiotropium bromide [Spiriva with HandiHaler] 18 mcg capsule, w/inhalation device 1 cap inhalation DAILY Qty: 1 0RF Rx Instructions: puncture 1 cap using device; one dose = 2 inhalations from [facility] B complex-vitamin C-folic acid 0.8 mg tablet 1 tab PO DAILY sevelamer carbonate 800 mg tablet 400 mg PO TID Rx Instructions: must administer with a meal/food aspirin 81 MG tablet,chewable 81 mg PO DAILY atorvastatin 40 mg tablet 20 mg PO DAILY minoxidil 2.5 mg tablet 5 mg PO QHS acetaminophen 325 mg capsule 325 mg PO ONCE PRN amlodipine 10 mg tablet 10 mg PO DAILY epinephrine 0.3 mg/0.3 mL auto-injector 0.3 mg IM ONCE PRN Rx Instructions: as a single dose; may repeat once nifedipine 60 mg tablet extended release 24hr 60 mg PO DAILY cetirizine [Zyrtec] 10 mg tablet 10 mg PO DAILY PRN budesonide-formoterol [Symbicort] 80-4.5 mcg/actuation HFA aerosol inhaler 2 puff inhalation BID prednisone 10 mg tablet 10 mg PO DAILY albuterol sulfate [Ventolin HFA] 90 mcg/actuation HFA aerosol inhaler 2 puff inhalation QID PRN (Reason: shortness of breath or wheezing) Qty: 8.5 5RF ipratropium-albuterol 0.5 mg-3 mg(2.5 mg base)/3 mL solution for nebulization 3 ml inhalation Q4H PRN (Reason: shortness of breath or wheezing) Qty: 180 3RF omeprazole 40 mg Capsule,Delayed Release(Dr/Ec) 40 mg PO BID meclizine 12.5 mg Tablet 12.5 mg PO PRN PRN levofloxacin 250 mg tablet 250 mg PO DAILY Qty: 6 0RF Rx Instructions: Take one tablet daily for 6 days for a total of 10 days albuterol sulfate 2.5 mg /3 mL (0.083 %) solution for nebulization 2.5 mg inhalation Q6H PRN (Reason: shortness of breath or wheezing) Qty: 3 0RF Rx Instructions: [facility] (D[facility]) Aerochamber MV Spacer MISCELLANEOUS sucralfate 1 gram tablet 1 g PO DAILY Patient Comments: TAKE 1 TABLET BY MOUTH FOUR TIMES DAILY BEFORE MEALS AND AT BEDTIME loperamide 2 mg Capsule 2 mg PO PRN PRN calcitriol 1 mcg/mL Solution 1 mcg intraperitoneal 1XD Discharge Instructions Instructions: COPD (Chronic Obstructive Pulmonary Disease) (ED) Additional Instructions: Please follow-up with your primary care physician. Please return to the emergency department for any worsening symptoms Medical Decision Making 57-year-old female history of COPD, CKD on dialysis, presents with dyspnea in the setting of running out of oxygen at dialysis today, given nebulized albuterol in route and started on nasal cannula with great improvement. Still with mild dyspnea and expiratory wheezing however speaking in full sentences no retractions. Afebrile nontoxic. Likely COPD exacerbation low suspicion for pneumonia ACS PE pneumothorax or fluid overload state given history and physical. Will continue with nebs and steroid, close reassessment of respiratory status. Patient has condenser at home and daughter has secondary tank that she will be able to use if she is able to be discharged 14: 19 patient feeling better after nebulized albuterol. Resting comfortably on 2 to 3 L nasal cannula. HPI General Date/Time Provider Initiated Documentation: 01/27/23 12:56 . HPI Narrative: 57-year-old female history of COPD, CKD on dialysis, her oxygen tank ran out while she was at dialysis today leading to dyspnea, improved on nasal cannula given a nebulizer in route. Feeling much better on arrival. Patient has condenser at home and her daughter has a spare tank for her available Related Data Home Medications Medication Instructions Recorded Confirmed aspirin 81 mg chewable tablet 81 mg PO DAILY 05/24/16 01/27/23 inhalational spacing device 01/26/19 01/17/23 (Aerochamber MV spacer) meclizine 12.5 mg tablet 12.5 mg PO PRN PRN 03/18/19 01/27/23 omeprazole 40 mg capsule,delayed 40 mg PO BID 03/18/19 01/27/23 release atorvastatin 40 mg tablet 20 mg PO DAILY 10/24/19 01/27/23 tiotropium bromide 18 mcg capsule 1 cap inhalation DAILY #1 inh 02/16/21 01/27/23 with inhalation device (Spiriva with HandiHaler) minoxidil 2.5 mg tablet 5 mg PO QHS 01/21/22 01/27/23 ondansetron HCl 4 mg tablet 4 mg PO ONCE PRN nausea and 02/08/22 01/27/23 vomiting #1 tab calcitriol 1 mcg/mL intravenous 1 mcg intraperitoneal 1XD 04/13/22 01/27/23 solution loperamide 2 mg capsule 2 mg PO PRN PRN 04/13/22 01/27/23 sucralfate 1 gram tablet 1 g PO DAILY 04/13/22 01/27/23 sevelamer carbonate 800 mg tablet 400 mg PO TID 04/19/22 01/27/23 vitamin B complex-vitamin C-folic 1 tab PO DAILY 04/19/22 01/27/23 acid 0.8 mg tablet acetaminophen 325 mg capsule 325 mg PO ONCE PRN 08/23/22 01/27/23 amlodipine 10 mg tablet 10 mg PO DAILY 08/23/22 01/27/23 benzonatate 100 mg capsule 100 mg PO TID PRN cough #14 caps 09/01/22 01/27/23 levofloxacin 250 mg tablet 250 mg PO DAILY Pneumonia #6 tabs 11/13/22 01/27/23 trazodone 50 mg tablet 50 mg PO HS #90 tab-caps 12/07/22 01/17/23 budesonide-formoterol HFA 80 2 puff inhalation BID 01/04/23 01/27/23 mcg-4.5 mcg/actuation aerosol inhaler (Symbicort) cetirizine 10 mg tablet (Zyrtec) 10 mg PO DAILY PRN 01/04/23 01/27/23 epinephrine 0.3 mg/0.3 mL 0.3 mg IM ONCE PRN 01/04/23 01/27/23 injection, auto-injector nifedipine 60 mg tablet,extended 60 mg PO DAILY 01/04/23 01/27/23 release 24 hr prednisone 10 mg tablet 10 mg PO DAILY 01/04/23 01/27/23 albuterol sulfate 2.5 mg/3 mL 2.5 mg (3 mL) inhalation Q6H PRN 01/16/23 01/27/23 (0.083 %) solution for nebulization shortness of breath or wheezing #3 mL albuterol sulfate 90 mcg/actuation 2 puff inhalation QID PRN 01/24/23 01/27/23 aerosol inhaler (Ventolin HFA) shortness of breath or wheezing #8.5 grams ipratropium 0.5 mg-albuterol 3 mg 3 ml inhalation Q4H PRN shortness 01/25/23 01/27/23 (2.5 mg base)/3 mL nebulization of breath or wheezing #180 mL soln Previous Rx's Medication Instructions Recorded tiotropium bromide 18 mcg capsule 1 cap inhalation DAILY #1 inh 02/16/21 with inhalation device (Spiriva with HandiHaler) ondansetron HCl 4 mg tablet 4 mg PO ONCE PRN nausea and 02/08/22 vomiting #1 tab benzonatate 100 mg capsule 100 mg PO TID PRN cough #14 caps 09/01/22 levofloxacin 250 mg tablet 250 mg PO DAILY Pneumonia #6 tabs 11/13/22 trazodone 50 mg tablet 50 mg PO HS #90 tab-caps 12/07/22 albuterol sulfate 2.5 mg/3 mL 2.5 mg (3 mL) inhalation Q6H PRN 01/16/23 (0.083 %) solution for nebulization shortness of breath or wheezing #3 mL albuterol sulfate 90 mcg/actuation 2 puff inhalation QID PRN 01/24/23 aerosol inhaler (Ventolin HFA) shortness of breath or wheezing #8.5 grams ipratropium 0.5 mg-albuterol 3 mg 3 ml inhalation Q4H PRN shortness 01/25/23 (2.5 mg base)/3 mL nebulization of breath or wheezing #180 mL soln Allergies Allergy/AdvReac Type Severity Reaction Status Date / Time cephalexin monohydrate Allergy Severe trouble Verified 01/27/23 12:50 [From Keflex] breathing colchicine Allergy Verified 01/27/23 12:50 allopurinol AdvReac Intermediate gout Verified 01/27/23 12:50 breakout erythromycin base AdvReac Intermediate gout Verified 01/27/23 12:50 breakout acetaminophen [From Percocet] AdvReac Unverified 01/27/23 12:50 oxycodone [From Percocet] AdvReac Unverified 01/27/23 12:50 General Stated Complaint: SOB AWA: 3 Review of Systems Narrative: Review of Systems Constitutional: negative Eyes: negative ENT: negative Cardiovascular: negative Respiratory: Shortness of breath Gastrointestinal: negative : negative Musculoskeletal: negative Skin: negative Neurologic: negative Psych: negative PFSH All Active Problems (Updated 01/27/23 @ 14:20 by Best Daniels MD) COPD exacerbation (Acute) COPD exacerbation (Acute) Vaginal bleeding (Acute) Thrombocytopenia (Chronic) Angioedema (Acute) Vaginal lesion (Acute) ESRD on dialysis (Chronic) On hemodialysis currently using central catheter-nephrology at [facility] receives dialysis at [facility] Depression (Acute 08/28/14) Gallstones (Acute) COPD (chronic obstructive pulmonary disease) (Chronic) Pulmonary at [facility] Central venous catheter in place [place]Acute [place]10[place]29/19[place] [facility] [place] Tricuspid regurgitation (Acute) s/p tricuspid valve replacement 02/2020, bovine Cirrhosis, alcoholic (Acute) POLST (Physician Orders for Life-Sustaining Treatment) (Acute) COLST completed 02/13/2020, DNR/DNI. Hemorrhage of arteriovenous fistula (Acute) Ventral hernia (Acute) Hypertension (Chronic) Aortic valve replaced (Acute) Bovine-with [facility] Personal history of nicotine dependence (Acute) 02/2021 Tobacco abuse (Acute) Lung nodule, solitary (Acute) Hemoptysis (Acute) Open abdominal wall wound (Acute) Fever (Acute) Neck pain (Acute) Right upper quadrant abdominal pain (Acute) Medical History Axillary lymphadenopathy Bleeding hemorrhoids (01/08/13) rectal bleeding ([place] [facility] [place] internal hemorrhoids and diverticuli) Cannabis dependence CVD (cardiovascular disease) Cyst of ovary (08/20/12) Depression (09/14/12) Diverticulitis of large intestine without perforation or abscess with bleeding Essential hypertension (01/16/13) severe and labile Gastroesophageal reflux disease with esophagitis (02/03/15) Hyperlipidemia Hyperparathyroidism, unspecified (02/09/11) 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[facility] [place] degeneration of left eye (~10/17/19) [facility] [place] Nail dystrophy Recurrent urinary tract infection Right heart failure Secondary hyperparathyroidism (of renal origin) Umbilical hernia repaired 1995,1997,2001,2003 Upper GI bleed (05/17/14) 05/15/14 [facility] [place], [place], esophagitis, gastric ulcer and duodenitis Surgical History Abdominal hysterectomy (~2006) s/p hyst, but cervix still present and needs yearly PAP due to transplant H/O aortic valve replacement History of kidney transplant Repair of umbilical hernia 1995,1997,2001,2003 TRANSPLANT, KIDNEY (~1997) LEFT Family History Mother Essential hypertension Personal history of malignant neoplasm KIDNEY Heart disease Pulmonary emphysema Father Personal history of malignant neoplasm Pulmonary emphysema Brother Hyperlipidemia Brother Hyperlipidemia Brother No problems noted. Social History Smoking/Tobacco Use Status: Current every day Tobacco Type: cigarettes Smoking risk assessment performed?: Yes Alcohol Intake: former Drug use: Daily Substance use type: marijuana Details: mostly edibles Current gender identity: female Do you feel safe at home: Yes Do you feel safe in your relationship?: Yes Exam Narrative Exam Narrative: Physical Examination General: alert, awake, cooperative, resting comfortably, no acute distress HEENT: normocephalic, atraumatic; PERRL, EOM intact, conjunctiva normal; no nasal discharge; moist mucous membranes, oral and pharyngeal mucosa normal, tolerating secretions Neck: supple, trachea midline; full ROM Chest: normal to inspection Respiratory: mildly dyspneic, speaking in full sentences, expiratory wheeze bilaterally no retraction Cardiac: regular rate, regular rhythm, S1S2 intact, no murmurs rubs or gallops GI: abdomen soft, non-tender, non-distended; no palpable mass or hepatosplenomegaly Skin: no lesions, rashes or trauma appreciated Neuro: AAOx3, normal speech, moving all extremities Psych: Appropriate mood and affect Course Vital Signs Vital signs: Vital Signs Temperature 36.8 C 01/27/23 12:45 Pulse 72 01/27/23 12:45 Respiratory Rate 22 01/27/23 12:45 Blood Pressure 165/75 H 01/27/23 12:45 Pulse Oximetry 97 01/27/23 12:45 Temperature 36.8 C 01/27/23 12:45 Temperature Source Skin 01/27/23 12:45 Pulse 72 01/27/23 12:45 Respiratory Rate 22 01/27/23 13:00 Respiratory Effort Short of Breath 01/27/23 13:00 Respiratory Pattern Tachypnea 01/27/23 13:00 Blood Pressure 165/75 H 01/27/23 12:45 Blood Pressure Position Sitting 01/27/23 12:45 Pulse Oximetry 97 01/27/23 13:00 Oxygen Delivery Method Nasal Cannula 01/27/23 13:00 Oxygen Flow Rate 3 01/27/23 13:00 Pain Level 0 01/27/23 12:45
[2023-01-27] MEDS: Dexamethasone 10 MG/ML VIAL PO (13:11)
[2023-01-27] MEDS: Albuterol/Ipratropium 3 ML UPD VIAL 6 ML UPD (13:11)
[2023-01-27 14:31] VITALS: BP 142/65; PULSE 62; RESP 20; O2SAT 99
== END 2023-01-27 14:45 | disposition home or self-care (01) ==
LOC: ER 15:06
PROVIDERS: Emergency Provider Emergency Medicine; PCP Family Medicine
DX: J44.1 Chronic obstructive pulmonary disease with (acute) exacerbation (principal)
CPT/HCPCS: 94640; 99283; J1100; J7620

== ENCOUNTER 2023-02-27 07:39 | Emergency (ER) | payer OTHER, SELFPAY ==
[2023-02-27] VITALS (64 sets, daily range): BP systolic 99–161; BP diastolic 37–133; PULSE 64–168; RESP 8–31; TEMP 36.6; O2SAT 88–100
--- NOTE | 2023-02-27 07:15 | RT.EKG_ITS ---
APPROVED REPORT Exam: Resting ECG Reason for Exam: difficulty breathing Patient Location: E HR:86 bpm ECG Measurements Heart Rate 86 AXIS CO 155 P 65 QRSd 154 QRS 74 QT 441 T 39 QTc 506 Conclusion Sinus rhythm...normal P axis, V-rate 60- 99 Ventricular premature complex...V complex w/ short R-R interval Right bundle branch block...QRSd>120, terminal axis(90,270)
[2023-02-27] MEDS: Albuterol/Ipratropium 3 ML UPD VIAL UPD (07:45)
--- NOTE | 2023-02-27 08:09 | W.ED.GENAD ---
Discharge Plan Disposition Patient Disposition: Transfer-Acute Inpatient Care Specific Acute Inpt Facility: [place] Condition: Improving Discharge Details Clinical Impression: COPD with acute exacerbation, Acute and chronic respiratory failure with hypoxia, ESRD on dialysis Primary Care Provider: Chano Neves ED Provider: Justice Cooper Home Meds and New Rx's Prescriptions: No Action ondansetron HCl 4 mg tablet 4 mg PO ONCE PRN (Reason: nausea and vomiting) Qty: 1 0RF trazodone 50 mg tablet 50 mg PO HS Qty: 90 3RF Rx Instructions: 1 TAB HS tiotropium bromide [Spiriva with HandiHaler] 18 mcg capsule, w/inhalation device 1 cap inhalation DAILY Qty: 1 0RF Rx Instructions: puncture 1 cap using device; one dose = 2 inhalations from [facility] B complex-vitamin C-folic acid 0.8 mg tablet 1 tab PO DAILY aspirin 81 MG tablet,chewable 81 mg PO DAILY Hold Instructions: out. no resupply atorvastatin 40 mg tablet 20 mg PO DAILY minoxidil 2.5 mg tablet 5 mg PO QHS acetaminophen 325 mg capsule 325 mg PO ONCE PRN amlodipine 10 mg tablet 10 mg PO DAILY Hold Instructions: out. no resupply epinephrine 0.3 mg/0.3 mL auto-injector 0.3 mg IM ONCE PRN Rx Instructions: as a single dose; may repeat once albuterol sulfate [Ventolin HFA] 90 mcg/actuation HFA aerosol inhaler 2 puff inhalation QID PRN (Reason: shortness of breath or wheezing) Qty: 8.5 5RF ipratropium-albuterol 0.5 mg-3 mg(2.5 mg base)/3 mL solution for nebulization 3 ml inhalation Q4H PRN (Reason: shortness of breath or wheezing) Qty: 180 3RF omeprazole 40 mg Capsule,Delayed Release(Dr/Ec) 40 mg PO BID albuterol sulfate 2.5 mg /3 mL (0.083 %) solution for nebulization 2.5 mg inhalation Q6H PRN (Reason: shortness of breath or wheezing) Qty: 3 0RF Rx Instructions: [facility] (DME) Aerochamber MV Spacer MISCELLANEOUS Discharge Data Discharge Date/Time-TO BE ENTERED AT DEPARTURE: 02/27/23 15:13 Medical Decision Making 2012 --57-year-old female with history of COPD, end-stage renal disease on hemodialysis - anuria x 9yrs, alcoholic cirrhosis of the liver, hypertension, status post aortic valve replacement, here with shortness of breath and acute respiratory distress. Patient is tachypneic, hypoxic requiring supplemental NC O2, speaking in 1-2 word responses, hypertensive. I have consulted RT to apply bipap. EKG was reviewed and interpreted by me: please see report, sinus 86bpm, RBBB Patient received 2 nebulized treatments of albuterol by EMS. I will give additional DuoNeb treatment. Will give Solu-Medrol 60 mg IV. 955 -- Patient reassessed: tolerating bipap, resting, decreased work of breathing. Labs reviewed: respiratory acidosis noted. pH 7.29, pCO2 69. I called [facility] transfer center to request transfer and awaiting call back. Patient to recieve levaquin 750mg IV. --I called [facility] transfer center requested transfer. Unfortunately they are at capacity and cannot accept the patient in transfer. -- I called [facility] transfer center and requested transfer, unfortunately they are at capacity and cannot accept the patient in transfer. 11:10 --I spoke with Dr. Garrison here at [facility], discussed ED presentation and course, he will except the patient in transfer. --Unfortunately no EMS available to take patient to check chart to meet cutoff time for dialysis there. They are unable to perform dialysis after 2 PM. I called [facility] transfer center back and they are now diverting all cases other than STEMI's, CVAs and trauma. 12:35 -- I spoke with Dr. Baker, ED physician at [place], discussed ED presentation and course, he will accept the patient in transfer. Repeat VBG reviewed and PCO2 improved. Lab Data Lab results reviewed: Yes I reviewed the patient's lab results. Labs: 02/27/23 09:25 Blood Blood Culture - Pending 02/27/23 09:02 Blood Blood Culture - Pending Laboratory Tests Range/Units 02/27/23 02/27/23 02/27/23 08:15 08:15 08:38 WBC (4.4-10.8) 10^3/uL 5.29 RBC (3.93-5.22) 10^6/uL 4.40 Hgb (11.2-15.7) g/dL 12.9 Hct (36.0-46.0) % 41.8 MCV (80-95) fL 95 MCH (27.0-33.0) pg 29.3 MCHC (32.0-36.0) % 30.9 L RDW (11.7-14.6) % 14.4 Plt Count (130-400) 10^3/uL 88 L MPV (8.0-11.0) fL 13.7 H Immature Gran % 0.2 Neutrophils % 74.6 Lymphocytes % 9.8 Monocytes % 8.7 Eosinophils % 5.9 Basophils % 0.8 Nucleated RBC % (0.0-0.3) % 0.0 Absolute Neutrophils (1.2-6.7) 10^3/uL 3.95 Absolute Lymphocytes (1.2-3.4) 10^3/uL 0.52 L Absolute Monocytes (0.1-0.8) 10^3/uL 0.46 Absolute Eosinophils (0.0-0.7) 10^3/uL 0.31 Absolute Basophils (0.0-0.2) 10^3/uL 0.04 VBG pH (7.31-7.41) 7.29 L VBG pCO2 (41-51) mmHg 69 H* VBG pO2 mmHg 42 VBG HCO3 (23-28) mmol/L 33 H VBG Total CO2 (24-29) mmol/L 31 H VBG O2 Saturation % 71 VBG Base Excess (-2-3) mmol/L 6 H Sodium Cancelled 138 Potassium Cancelled 5.6 H Chloride Cancelled 95 L Carbon Dioxide Cancelled 32.7 H Anion Gap Cancelled 10.3 BUN Cancelled 54 H Creatinine Cancelled 9.7 H* Est GFR (CKD-EPI 2020) Cancelled 4.25 Glucose Cancelled 99 Calcium Cancelled 7.3 L Magnesium Cancelled 2.2 Total Bilirubin Cancelled 0.7 AST Cancelled 37 ALT Cancelled 29 Alkaline Phosphatase Cancelled 200 H Troponin I Cancelled 50 NT-Pro-B Natriuret Pep Cancelled Cancelled 75309 H Total Protein Cancelled 7.4 Albumin Cancelled 3.9 COVID-19 Source Nasopharynx SARS-CoV-2 (PCR) (Negative) Negative Influenza Type A (PCR) (Negative) Negative Influenza Type B (PCR) (Negative) Negative RSV (PCR) (Negative) Negative HPI General Mode of arrival: ambulatory. Date/Time Provider Initiated Documentation: 02/27/23 07:53. Limitations to Documentation: no limitations. Information obtained by: patient and EMS. HPI Narrative: 57yo female with mulitple medical problems including COPD and ESRD on HD here with chief complaint of shortness of breath. Patient notes increasing SOB over the past week. Typically on NC 2L intermittently and has had to increase volume. No associated chest pain or leg swelling. Last HD Monday. Related Data Home Medications Medication Instructions Recorded Confirmed aspirin 81 mg chewable tablet 81 mg PO DAILY 05/24/16 02/27/23 inhalational spacing device 01/26/19 02/27/23 (Aerochamber MV spacer) omeprazole 40 mg capsule,delayed 40 mg PO BID 03/18/19 02/27/23 release atorvastatin 40 mg tablet 20 mg PO DAILY 10/24/19 02/27/23 tiotropium bromide 18 mcg capsule 1 cap inhalation DAILY #1 inh 02/16/21 02/27/23 with inhalation device (Spiriva with HandiHaler) minoxidil 2.5 mg tablet 5 mg PO QHS 01/21/22 02/27/23 ondansetron HCl 4 mg tablet 4 mg PO ONCE PRN nausea and 02/08/22 02/27/23 vomiting #1 tab vitamin B complex-vitamin C-folic 1 tab PO DAILY 04/19/22 02/27/23 acid 0.8 mg tablet acetaminophen 325 mg capsule 325 mg PO ONCE PRN 08/23/22 02/27/23 amlodipine 10 mg tablet 10 mg PO DAILY 08/23/22 02/27/23 trazodone 50 mg tablet 50 mg PO HS #90 tab-caps 12/07/22 02/09/23 epinephrine 0.3 mg/0.3 mL 0.3 mg IM ONCE PRN 01/04/23 02/27/23 injection, auto-injector albuterol sulfate 2.5 mg/3 mL 2.5 mg (3 mL) inhalation Q6H PRN 01/16/23 02/27/23 (0.083 %) solution for nebulization shortness of breath or wheezing #3 mL albuterol sulfate 90 mcg/actuation 2 puff inhalation QID PRN 01/24/23 02/27/23 aerosol inhaler (Ventolin HFA) shortness of breath or wheezing #8.5 grams ipratropium 0.5 mg-albuterol 3 mg 3 ml inhalation Q4H PRN shortness 01/25/23 02/27/23 (2.5 mg base)/3 mL nebulization of breath or wheezing #180 mL soln Previous Rx's Medication Instructions Recorded tiotropium bromide 18 mcg capsule 1 cap inhalation DAILY #1 inh 02/16/21 with inhalation device (Spiriva with HandiHaler) ondansetron HCl 4 mg tablet 4 mg PO ONCE PRN nausea and 02/08/22 vomiting #1 tab trazodone 50 mg tablet 50 mg PO HS #90 tab-caps 12/07/22 albuterol sulfate 2.5 mg/3 mL 2.5 mg (3 mL) inhalation Q6H PRN 01/16/23 (0.083 %) solution for nebulization shortness of breath or wheezing #3 mL albuterol sulfate 90 mcg/actuation 2 puff inhalation QID PRN 01/24/23 aerosol inhaler (Ventolin HFA) shortness of breath or wheezing #8.5 grams ipratropium 0.5 mg-albuterol 3 mg 3 ml inhalation Q4H PRN shortness 01/25/23 (2.5 mg base)/3 mL nebulization of breath or wheezing #180 mL soln Allergies Allergy/AdvReac Type Severity Reaction Status Date / Time cephalexin monohydrate Allergy Severe trouble Verified 02/27/23 07:52 [From Keflex] breathing colchicine Allergy Verified 02/27/23 07:52 allopurinol AdvReac Intermediate gout Verified 02/27/23 07:52 breakout erythromycin base AdvReac Intermediate gout Verified 02/27/23 07:52 breakout acetaminophen [From Percocet] AdvReac Unverified 02/27/23 07:52 oxycodone [From Percocet] AdvReac Unverified 02/27/23 07:52 General Stated Complaint: SOB AWA: 3 Review of Systems All systems reviewed & are unremarkable except as noted in HPI and below Constitutional Constitutional: Denies fever(s) Cardiovascular Cardiovascular: Reports dyspnea Respiratory Respiratory: Reports as per HPI, Reports cough and Reports dyspnea PFSH All Active Problems (Updated 02/27/23 @ 11:11 by Justice Cooper MD) Acute and chronic respiratory failure with hypoxia (Acute) COPD with acute exacerbation (Acute) Vaginal bleeding (Acute) Thrombocytopenia (Chronic) Angioedema (Acute) Vaginal lesion (Acute) ESRD on dialysis (Chronic) On hemodialysis currently using central catheter-nephrology at [facility] receives dialysis at [facility] H region Depression (Acute 08/28/14) Gallstones (Acute) COPD (chronic obstructive pulmonary disease) (Chronic) Pulmonary at [facility] Central venous catheter in place (Acute ~10/29/19) [facility], right subclavian-dialysis Tricuspid regurgitation (Acute) s/p tricuspid valve replacement 02/2020, bovine Cirrhosis, alcoholic (Acute) POLST (Physician Orders for Life-Sustaining Treatment) (Acute) COLST completed 02/13/2020, DNR/DNI. Hemorrhage of arteriovenous fistula (Acute) Ventral hernia (Acute) Hypertension (Chronic) Aortic valve replaced (Acute) Bovine-with [facility] Personal history of nicotine dependence (Acute) 02/2021 Tobacco abuse (Acute) Lung nodule, solitary (Acute) Hemoptysis (Acute) Open abdominal wall wound (Acute) Fever (Acute) Neck pain (Acute) Right upper quadrant abdominal pain (Acute) Medical History Axillary lymphadenopathy Secondary hyperparathyroidism (of renal origin) Right heart failure CVD (cardiovascular disease) Macular degeneration of left eye (~10/17/19) [facility] Nail dystrophy Cannabis dependence Cyst of ovary (08/20/12) Depression (09/14/12) Recurrent urinary tract infection Upper GI bleed (05/17/14) 05/15/14 [facility] EGD, HH, esophagitis, gastric ulcer and duodenitis Umbilical hernia repaired 1995,1997,2001,2003 Hyperparathyroidism, unspecified (02/09/11) 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[facility] Hyperlipidemia Gastroesophageal reflux disease with esophagitis (02/03/15) Essential hypertension (01/16/13) severe and labile Diverticulitis of large intestine without perforation or abscess with bleeding Bleeding hemorrhoids (01/08/13) rectal bleeding (colonoscopy [facility] 01/01/13 internal hemorrhoids and diverticuli) Surgical History H/O aortic valve replacement History of kidney transplant TRANSPLANT, KIDNEY (~1997) LEFT Abdominal hysterectomy (~2006) s/p hyst, but cervix still present and needs yearly PAP due to transplant Repair of umbilical hernia 1995,1997,2001,2003 Family History Mother Essential hypertension Personal history of malignant neoplasm KIDNEY Heart disease Pulmonary emphysema Father Personal history of malignant neoplasm Pulmonary emphysema Brother Hyperlipidemia Brother Hyperlipidemia Brother No problems noted. Social History Smoking/Tobacco Use Status: Current every day Tobacco Type: cigarettes Smoking risk assessment performed?: Yes Alcohol Intake: former Drug use: Daily Substance use type: marijuana Details: mostly edibles Housing: apartment Current gender identity: female Do you feel safe at home: Yes Do you feel safe in your relationship?: Yes Exam Const General: cooperative HENMT Mouth: moist mucous membranes Eyes Conjunctivae: normal conjunctivae Sclera: normal sclerae Neck Neck: trachea midline and supple Resp Effort & Inspection: not able to speak in complete sentences, labored, respiratory distress and tachypneic Auscultation: diminished lung sounds bilaterally and no rhonchi Cardio Jugular venous pressure: no JVD Rate: regular rate and not tachycardic Rhythm: regular rhythm GI Palpation: soft, not firm, no guarding, no masses, not rigid and nontender Skin General skin exam: no rashes or lesions noted Neuro General: patient alert, patient awake and tone normal Extrem General: no edema Psych Appearance: grossly normal Mental Status: mental status grossly normal Course Vital Signs Vital signs: Vital Signs Temperature 36.6 C 02/27/23 07:43 Pulse 70 02/27/23 07:43 Respiratory Rate 30 H 02/27/23 07:43 Blood Pressure 161/117 H 02/27/23 07:43 Pulse Oximetry 94 02/27/23 07:43 Temperature 36.6 C 02/27/23 07:43 Temperature Source Tympanic 02/27/23 07:43 Pulse 70 02/27/23 07:43 Respiratory Rate 30 H 02/27/23 07:45 Blood Pressure 161/117 H 02/27/23 07:43 Blood Pressure Position Sitting 02/27/23 07:43 Pulse Oximetry 95 02/27/23 07:45 Oxygen Delivery Method Nasal Cannula 02/27/23 07:45 Oxygen Flow Rate 0 02/27/23 07:43 Pain Level 6 02/27/23 07:43 Critical Care Time Critical Care Time Critical Care Time: Yes Total Critical Care Time: 85 Attestation: I spent greater than 85 minutes addressing this patient's immediate life threats. Please see MDM section of note. This time was spent engaged in work directly related to the patient's care, exclusive of separate procedures, and failure to initiate these interventions would have likely resulted in clinically significant or life threatening deterioration in the patient's condition.
[2023-02-27 08:26] LABS: Abs Immature Grans 0.01 10^3/uL (0.0-0.06); Absolute Basophil Count 0.04 10^3/uL (0.0-0.2); Absolute Eosinophil Count 0.31 10^3/uL (0.0-0.7); Absolute Lymphocyte Count 0.52 10^3/uL (1.2-3.4); Absolute Monocyte Count 0.46 10^3/uL (0.1-0.8); Absolute Neutrophil Count 3.95 10^3/uL (1.2-6.7); Basophils % 0.8; Eosinophils % 5.9; HCT 41.8 % (36.0-46.0); HGB 12.9 g/dL (11.2-15.7); Immature Grans % 0.2; Lymphocytes % 9.8; MCH 29.3 pg (27.0-33.0); MCHC 30.9 % (32.0-36.0); MCV 95 fL (80-95); MPV 13.7 fL (8.0-11.0); Monocytes % 8.7; Neutrophils % 74.6; RDW 14.4 % (11.7-14.6); RDW-SD 49.8 fL; WBC 5.29 10^3/uL (4.4-10.8)
--- NOTE | 2023-02-27 08:30 | DI.RAD_ITS ---
Exam(s) XR PORTABLE CHEST AP EXAM: XR PORTABLE CHEST AP CLINICAL HISTORY: cough TECHNIQUE: 2D digital imaging was performed of the chest. One image was obtained. An AP view was ob tained. COMPARISON: CR XR PORTABLE CHEST AP from 11/28/2022 CR XR CHEST 2V PA LATERAL from 01/16/2023 FINDINGS: MEDIASTINUM: Normal. HEART: Stable cardiomegaly. Stable cardiac valvular prostheses. PULMONARY VASCULATURE: There is stable prominence of the pulmonary vasculature which may reflect pulm onary artery hypertension. LUNGS: The lungs are hyperinflated. No focal infiltrates are seen. PLEURAL SPACE: No pleural effusion or pneumothorax. BONE:Within normal limits for the patient's age. Sternal wires are in place. OTHER FINDINGS:Normal. IMPRESSION: No focal consolidations. DATA REPOSITORY: RADIATION DOSE DELIVERED:
[2023-02-27] MEDS: Normal Saline Flush 10 ML SYR IVP (08:35)
[2023-02-27 08:39] LABS: Platelet Count 88 10^3/uL (130-400)
[2023-02-27] MEDS: methylPREDNISolone SUCC 125 MG VIAL 60 MG IVP (08:39)
[2023-02-27 08:42] LABS: BE (Venous) 6 mmol/L (-2-3); HCO3 (Venous) 33 mmol/L (23-28); O2 Sat (Venous) 71 %; TCO2 (Venous) 31 mmol/L (24-29); pH (Venous) 7.29 (7.31-7.41); pO2 (Venous) 42 mmHg
[2023-02-27 08:44] LABS: pCO2 (Venous) 69 mmHg (41-51)
[2023-02-27] MEDS: levoFLOXacin 750 MG/150 ML BAG 100 MG IVPB (08:59)
[2023-02-27 09:02] LABS: COVID-19 PCR Negative (Negative); Influenza A PCR Negative (Negative); Influenza B PCR Negative (Negative); RSV PCR Negative (Negative)
[2023-02-27 09:06] LABS: ALT 29 U/L (14-59); AST 37 U/L (15-37); Albumin 3.9 g/dL (3.4-5.0); Alkaline Phosphatase 200 U/L (46-116); Anion Gap 10.3 mmol/L (3-11); BUN 54 mg/dL (7-18); Bilirubin, Total 0.7 mg/dL (0.2-1.0); CO2 32.7 mmol/L (21.0-32.0); Calcium 7.3 mg/dL (8.5-10.1); Chloride 95 mmol/L (98-107); Estimated GFR 4.25 (mL/min/1.73m2); Glucose 99 mg/dL (74-106); Magnesium 2.2 mg/dL (1.8-2.4); Potassium 5.6 mmol/L (3.5-5.1); Sodium 138 mmol/L (136-145); Total Protein 7.4 g/dL (6.4-8.2); Troponin I 50 ng/L (<or=60)
[2023-02-27 09:08] LABS: CREATININE 9.7 mg/dL (0.55-1.02)
[2023-02-27 09:08] LABS: Source Nasopharynx
[2023-02-27 11:17] LABS: Troponin I 50 ng/L (<or=60)
[2023-02-27 11:26] LABS: BE (Venous) 2 mmol/L (-2-3); HCO3 (Venous) 28 mmol/L (23-28); O2 Sat (Venous) 87 %; TCO2 (Venous) 26 mmol/L (24-29); pCO2 (Venous) 58 mmHg (41-51); pH (Venous) 7.29 (7.31-7.41); pO2 (Venous) 58 mmHg
== END 2023-02-27 15:13 | disposition short-term general hospital (02) ==
PROVIDERS: Emergency Provider Student in an Organized Health Care Education/Training Program; PCP Family Medicine
DX: J44.1 Chronic obstructive pulmonary disease with (acute) exacerbation (principal); J96.21 Acute and chronic respiratory failure with hypoxia; I45.19 Other right bundle-branch block; I12.0 Hypertensive chronic kidney disease with stage 5 chronic kidney disease or end stage renal disease; N18.6 End stage renal disease; N25.81 Secondary hyperparathyroidism of renal origin; Z99.2 Dependence on renal dialysis; Z94.0 Kidney transplant status; Z79.82 Long term (current) use of aspirin; Z95.2 Presence of prosthetic heart valve; Z11.52 Encounter for screening for COVID-19
CPT/HCPCS: 36415; 80053; 82805; 87040; 87637; 93005; 94640; 96365; 96366; 96375; 99285; 71045; 83735; 83880; 84484; 85025; 93010; 94660; J1956; J2930; J7620

== ENCOUNTER 2023-03-18 10:22 | Emergency (ER) | payer OTHER, SELFPAY ==
[2023-03-18] VITALS (17 sets, daily range): BP systolic 108–156; BP diastolic 26–74; PULSE 82–92; RESP 13–24; TEMP 37.3; O2SAT 86–97
--- NOTE | 2023-03-18 10:30 | RT.EKG_ITS ---
APPROVED REPORT Exam: Resting ECG Reason for Exam: shortness of breath Patient Location: E HR:85 bpm ECG Measurements Heart Rate 85 AXIS WI [id number] P 0 QRSd 154 QRS 86 QT 456 T 6 QTc 543 Conclusion Complete AV block with wide QRS complex...V-rate< 60, QRSd>140, AV dissoc Right bundle branch block...QRSd>120, terminal axis(90,270) Significant artifact RBBB, minor changes from previous
--- NOTE | 2023-03-18 10:30 | DI.RAD_ITS ---
Exam(s) XR CHEST 2V PA LATERAL EXAM: XR CHEST 2V PA LATERAL CLINICAL HISTORY: cough, shortness of breath TECHNIQUE: 2D digital imaging was performed of the chest. Two images were obtained. PA and lateral views were obtained. COMPARISON: CT CT CHEST/ABD/PEL WO from 07/07/2022 CR XR PORTABLE CHEST AP from 02/27/2023 FINDINGS: MEDIASTINUM: Normal. HEART: Cardiomegaly. Cardiac valve replacements are present. PULMONARY VASCULATURE: Unchanged prominence of the pulmonary vasculature. This can be seen with pulm onary artery hypertension. LUNGS: No focal consolidating infiltrates. Mild prominence of the interstitium bilaterally. PLEURAL SPACE: No pleural effusion or pneumothorax. BONE:Within normal limits for the patient's age. Sternal wires are in place. OTHER FINDINGS:Normal. IMPRESSION: 1. Mildly prominent interstitial findings which may represent edema. Pneumonia cannot be excluded. 2. Stable cardiomegaly and prominence of the pulmonary vasculature which may reflect pulmonary artery hypertension. DATA REPOSITORY: RADIATION DOSE DELIVERED:
--- OUTSIDE RECORDS SUMMARY | 2023-03-18 10:30 | XMS_ITS ---
Author Name Isidoro Cuellar Address [address] [place] [address] Phone [phone] Organization [facility] e, NA DOCUMENT DISCLAIMER Multiple document versions may exist, please be sure you review the latest version. The information in the [facility] Emergency Department Progress Note Document represents a providers documented clinical note containing certain health and medical information. It may not contain the complete medical history for the patient and should be independently verified. The represented time in the document is Eastern Time PROVIDER ROUNDING NOTE COMPREHENSIVE Patient:?ANUSHA?PAULA,?1965,?56y,?F Dialysis?Location:?[facility] Attending?Ordnance Mechanic:?Isidoro?Alisa Service?Date:?04/27/2022 Service?Provider:?Isidoro?Alisa,? I?met?face?to?face?with?the?patient?today. OVERVIEW The?patient?presented?with?ESRD?on?dialysis Comments:?04/27?will?try?to?use?fistula?again?this?week. ?Still?with?URI/COPD?on?doxycyline. 04/20/22-?Tolerating?HD?well?via?her?TDC?and?denies?any&# 160;new?complaints.?AVF?assessed?and?noted?with?diminished?t hrill,?+ve?bruit.?Last?seen?by??Lauryn?has?fistula&# 160;eval?no?evidence?of?significant?stenosis?and?AVF?is ready?to?use. Rn?informed?of?findings?and?recommendations?made?to?cannulat e?on?next?treatment?if?possible. Metabolic?and?volume?parameters?reviewed.? 2/?Patient?feeling?poorly/mod?SOB/anorexia/cough.?Completed?03/14? run/only?had?1?kg?gain.?Ambulance?called?for?transport?to?local?ED No?rales?on?exam/distant?BS?with?wheezes/no?abd?guarding/liver?tender. 04/06?hospitalized?again?for???Pneumonia?at?[facility]/?her? 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 LAST?HOSPITALIZATION Discharge?Diagnosis:?J12.9?Viral?pneumonia,?unspecified Admission?Date?03/28/22 Discharge?Date?04/03/22 DIALYSIS?PRESCRIPTION ??IHD?3x?Week?Start?date:?04/06/22 ??Dialyzer:?160NRe?Optiflux ??BFR:?450 ??DFR:?Manual?500 ??Potassium:?2.0 ??Sodium:?137 ??EDW:?57 ??Duration:?4:00 ??Calcium:?2.5 ??Bicarb:?34 ??Rx?updated?on:?04/04/2022 TREATMENT?ASSESSMENT Blood?pressure?controlled.?No?changes?indicated.? BP?Sit?Pre ??04/25/2022:?142/54 ??04/22/2022:?153/84 ??04/20/2022:?113/56 BP?Stand?Post ??04/25/2022:?174/91 ??04/22/2022:?119/60 ??04/20/2022:?123/43 BP?Sit?Post ??04/25/2022:?178/95 ??04/22/2022:?112/61 ??04/20/2022:?119/53 Tx?Duration ??04/25/2022:?4:01 ??04/22/2022:?4:03 ??04/20/2022:?3:57 Missed?Treatments 0?-?last?30?days 0?-?last?60?days FLUID?ASSESSMENT Fluid?status?acceptable.?Interdialytic?weight?gain?acceptable.?No ?changes?indicated.? EDW?(kg) ??04/25/2022:?57.0 ??04/22/2022:?57.0 ??04/20/2022:?57.0 Weight?Pre?(kg) ??04/25/2022:?61.1 ??04/22/2022:?59.9 ??04/20/2022:?60.1 Weight?Post?(kg) ??04/25/2022:?58.5 ??04/22/2022:?57.4 ??04/20/2022:?59.3 PWV?(kg) ??04/25/2022:?1.5 ??04/22/2022:?0.4 ??04/20/2022:?2.3 UF?Rate?(mL/kg/hr) ??04/25/2022:?11.1 ??04/22/2022:?10.8 ??04/20/2022:?3.4 ADEQUACY?ASSESSMENT Adequacy?target?met.?Prescription?compliance?acceptable.? spKt/V,?URR ??04/18/2022:?2.36,?86.0 ??03/14/2022:?1.51,?71.0 ??02/21/2022:?1.8,?78.0 ACCESS?ASSESSMENT ??Access?Type:?AVFistula ??Access?SubType:?Standard ??Access?Status:?Active?(In?Use)?-?02/07/2022 ??Access?Location:?Right?Upper?Arm ??Created:?04/29/2021 Flow ??03/23/2022:?1761 ??03/18/2022:?1026 ??03/16/2022:?1387 Vascular?access?reviewed.?Current?access?is?permanent?and?functioning?well. ANEMIA?ASSESSMENT FRANCISCO?adjusted?per?protocol.?Anemia?reviewed.? HGB,?TSAT ??04/25/2022:?9.3,?- ??04/18/2022:?10.6,?51.0 ??04/11/2022:?9.5,?- ?? Ferritin ??04/18/2022:?1485.0 ??03/14/2022:?804.0 ??02/21/2022:?712.0 Mircera,?IVP?(mcg) ??03/25/2022:?75 ??02/11/2022:?100 ??01/28/2022:?100 Iron?Sucrose?(Venofer)?(mg) ??04/11/2022:?100 ??04/06/2022:?100 ??04/04/2022:?100 BMM?ASSESSMENT Comments:?Phosphate?low/hold?binder PTH?within?target.?Bone?and?mineral?metabolism?parameters?re viewed.?Calcium?controlled.?Phosphorus?binders?adjusted.? Phosphorus,?Calcium ??04/18/2022:?1.8,?8.9 ??03/14/2022:?9.0,?8.2 ??02/21/2022:?7.3,?8.1 ?? PTH,?Intact ??04/18/2022:?52.0 ??03/14/2022:?75.0 ??02/21/2022:?39.0 Vitamin?D?(Calcitriol)?Oral?(mcg) ??04/25/2022:?1.0 ??04/22/2022:?1.0 ??04/20/2022:?1.0 NUTRITION?ASSESSMENT Albumin,?Potassium ??04/18/2022:?4.4,?4.9 ??03/18/2022:?-,?5.3 ??03/14/2022:?4.1,?6.2 ?? eNPCR ??04/18/2022:?0.78 ??03/14/2022:?1.03 ??02/21/2022:?0.63 PHYSICAL?EXAM Exam?Performed.?Lungs?-?With?wheezing. DIAGNOSIS Chief?Complaint:?N18.6?End?stage?renal?disease Patient?data?updated?04/27/2022?at?9:19?AM Signed?By:?Alisa,?Isidoro???on?04/27/2022?9:21:55?AM END OF DOCUMENT
--- OUTSIDE RECORDS SUMMARY | 2023-03-18 10:30 | XMS_ITS ---
Author Name Isidoro Cuellar Address [address] [place] [address] Phone [phone] Organization [facility] e, NA DOCUMENT DISCLAIMER The information in the [facility] Provider Note Document represents a providersdocumented clinical note containing certain health and medical information. It may not contain the complete medical history for the patient and should be independently verified. The represented time in the document is Eastern Time PROVIDER ROUNDING NOTE BASIC Patient:?ANUSHA?PAULA,?1965,?56y,?F Dialysis?Location:?[facility] Attending?Sample Steamer:?Isidoro?Alisa Service?Date:?02/18/2022 Service?Provider:?Isidoro?Alisa,? I?met?face?to?face?with?the?patient?today. OVERVIEW The?patient?presented?with?ESRD?on?dialysis Comments:?02/18?did?POC?US?on?fistula.??Great?flow/&#160 ;will?try?17?g?needle?to?pull/?I?think?the?basilic ?is?not?arterialized?and?is?fragile.? Medications?and?labs?reviewed. DIALYSIS?PRESCRIPTION ??IHD?3x?Week?Start?date:?02/09/22 ??Dialyzer:?160NRe?Optiflux ??BFR:?450 ??DFR:?Manual?500 ??Potassium:?2.0 ??Sodium:?137 ??EDW:?59.6 ??Duration:?4:00 ??Calcium:?2.5 ??Bicarb:?34 ??Rx?updated?on:?02/08/2022 TREATMENT?ASSESSMENT BP?Sit?Pre ??02/16/2022:?184/98 ??02/14/2022:?157/81 ??02/11/2022:?218/107 BP?Sit?Post ??02/16/2022:?148/66 ??02/14/2022:?148/78 ??02/11/2022:?211/94 Tx?Duration ??02/16/2022:?4:18 ??02/14/2022:?4:07 ??02/11/2022:?3:59 Missed?Treatments 0?-?last?30?days 1?-?last?60?days 10/10?-?recent FLUID?ASSESSMENT EDW?(kg) ??02/16/2022:?59.6 ??02/14/2022:?59.6 ??02/11/2022:?59.6 Weight?Pre?(kg) ??02/16/2022:?63.0 ??02/14/2022:?63.1 ??02/11/2022:?61.8 Weight?Post?(kg) ??02/16/2022:?60.4 ??02/14/2022:?61.0 ??02/11/2022:?59.5 PWV?(kg) ??02/16/2022:?0.8 ??02/14/2022:?1.4 ??02/11/2022:?-0.1 UF?Rate?(mL/kg/hr) ??02/16/2022:?10 ??02/14/2022:?8.4 ??02/11/2022:?9.7 ADEQUACY?ASSESSMENT spKt/V,?URR ??01/24/2022:?1.7,?76.0 ??12/21/2021:?1.46,?70.0 ??11/22/2021:?1.43,?69.0 ACCESS?ASSESSMENT ??Access?Type:?CVCatheter ??Access?SubType:?Tunneled ??Access?Status:?Active?(In?Use)?-?06/15/2020 ??Access?Location:?Chest ??Placed:?06/15/2020 ANEMIA?ASSESSMENT HGB ??02/14/2022:?10.3 ??02/07/2022:?10.7 ??01/31/2022:?10.4 ?? Ferritin ??01/24/2022:?749.0 ??12/21/2021:?990.0 ??11/22/2021:?874.0 Mircera,?IVP?(mcg) ??02/11/2022:?100 ??01/28/2022:?100 ??01/14/2022:?60 Iron?Sucrose?(Venofer)?(mg) ??01/31/2022:?100 ??01/28/2022:?100 ??01/26/2022:?100 BMM?ASSESSMENT Phosphorus,?Calcium ??01/24/2022:?6.4,?9.1 ??12/21/2021:?5.6,?8.9 ??11/22/2021:?3.9,?9.0 ?? PTH,?Intact ??01/24/2022:?29.0 ??12/21/2021:?17.0 ??11/22/2021:?57.0 Vitamin?D?(Calcitriol)?Oral?(mcg) ??02/16/2022:?1.0 ??02/14/2022:?1.0 ??02/11/2022:?1.0 NUTRITION?ASSESSMENT Albumin,?Potassium ??01/24/2022:?4.3,?4.4 ??12/21/2021:?4.3,?4.3 ??11/22/2021:?4.5,?4.4 ?? eNPCR ??01/24/2022:?0.73 ??12/21/2021:?0.59 ??11/22/2021:?0.68 Patient?data?updated?02/18/2022?at?8:59?AM Signed?By:?Alisa,?Isidoro,???on?02/18/2022?11:29:54 AM END OF DOCUMENT
--- OUTSIDE RECORDS SUMMARY | 2023-03-18 10:30 | XMS_ITS ---
Author Name Brady Patelcy Address [address] [place] [address] Phone [phone] Organization [facility], NA DOCUMENT DISCLAIMER Multiple document versions may exist, please be sure you review the latest version. The information in the [facility] Progress Note Document represents a providers documented clinical note containing certain health and medical information. It may not contain the complete medical history for the patient and should be independently verified. The represented time in the document is Eastern Time PROVIDER ROUNDING NOTE BASIC Patient:?ANUSHA?PAULA,?1965,?56y,?F Dialysis?Location:?[facility] Attending?Location Man:?Isidoro?Alisa Service?Date:?05/11/2022 Service?Provider:?Kyara?Jorge,?MANGLE PRESS CATCHER I?met?face?to?face?with?the?patient?today. OVERVIEW The?patient?presented?with?ESRD?on?dialysis Comments:?05/11/22?-?Will?send?referral?to?[facility]?for?tierra ter?removal.??Stable?treatment. 05/04/22?-?Cannulated?with?2?16g?needles?with?no?difficu lty.??Running?a?BPS?of?300?with?good?pressures.?&# 160;Less?sob?today,?states?she?is?starting?to?feel better. 04/27?will?try?to?use?fistula?again?this?week.?Still&#16 0;with?URI/COPD?on?doxycyline. 04/20/22-?Tolerating?HD?well?via?her?TDC?and?denies?any&# 160;new?complaints.?AVF?assessed?and?noted?with?diminished?t hrill,?+ve?bruit.?Last?seen?by?Dr?Columbo?has?fistula&# 160;eval?no?evidence?of?significant?stenosis?and?AVF?is ready?to?use. Rn?informed?of?findings?and?recommendations?made?to?cannulat e?on?next?treatment?if?possible. Metabolic?and?volume?parameters?reviewed.? 2/?Patient?feeling?poorly/mod?SOB/anorexia/cough.?Completed?2? run/only?had?1?kg?gain.?Ambulance?called?for?transport?to?local?ED No?rales?on?exam/distant?BS?with?wheezes/no?abd?guarding/liver?tender. 04/06?hospitalized?again?for???Pneumonia?at?[facility]/?her? 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 LAST?HOSPITALIZATION Discharge?Diagnosis:?J12.9?Viral?pneumonia,?unspecified Admission?Date?03/28/22 Discharge?Date?04/03/22 DIALYSIS?PRESCRIPTION ??IHD?3x?Week?Start?date:?04/06/22 ??Dialyzer:?160NRe?Optiflux ??BFR:?450 ??DFR:?Manual?500 ??Potassium:?2.0 ??Sodium:?137 ??EDW:?57 ??Duration:?4:00 ??Calcium:?2.5 ??Bicarb:?34 ??Rx?updated?on:?04/04/2022 TREATMENT?ASSESSMENT BP?Stand?Pre ??05/09/2022:?132/70 ??05/06/2022:?180/87 BP?Sit?Pre ??05/09/2022:?125/65 ??05/06/2022:?177/98 ??05/04/2022:?112/72 BP?Stand?Post ??05/09/2022:?125/49 ??05/06/2022:?160/72 BP?Sit?Post ??05/09/2022:?119/53 ??05/06/2022:?161/72 ??05/04/2022:?160/80 Tx?Duration ??05/09/2022:?3:50 ??05/06/2022:?4:03 ??05/04/2022:?4:07 Missed?Treatments 0?-?last?30?days 0?-?last?60?days FLUID?ASSESSMENT EDW?(kg) ??05/09/2022:?57.0 ??05/06/2022:?57.0 ??05/04/2022:?57.0 Weight?Pre?(kg) ??05/09/2022:?59.8 ??05/06/2022:?58.7 ??05/04/2022:?58.6 Weight?Post?(kg) ??05/09/2022:?56.7 ??05/06/2022:?56.2 ??05/04/2022:?56.4 PWV?(kg) ??05/09/2022:?-0.3 ??05/06/2022:?-0.8 ??05/04/2022:?-0.6 UF?Rate?(mL/kg/hr) ??05/09/2022:?14.3 ??05/06/2022:?11 ??05/04/2022:?9.5 ADEQUACY?ASSESSMENT spKt/V,?URR ??04/18/2022:?2.36,?86.0 ??03/14/2022:?1.51,?71.0 ??02/21/2022:?1.8,?78.0 ACCESS?ASSESSMENT ??Access?Type:?AVFistula ??Access?SubType:?Standard ??Access?Status:?Active?(In?Use)?-?02/07/2022 ??Access?Location:?Right?Upper?Arm ??Created:?04/29/2021 Flow ??03/23/2022:?1761 ??03/18/2022:?1026 ??03/16/2022:?1387 ANEMIA?ASSESSMENT HGB ??05/09/2022:?10.2 ??05/04/2022:?9.1 ??05/02/2022:?8.8 ?? Ferritin ??04/18/2022:?1485.0 ??03/14/2022:?804.0 ??02/21/2022:?712.0 Mircera,?IVP?(mcg) ??04/29/2022:?75 ??03/25/2022:?75 ??02/11/2022:?100 Iron?Sucrose?(Venofer)?(mg) ??04/11/2022:?100 ??04/08/2022:?100 ??04/06/2022:?100 BMM?ASSESSMENT Comments:?Phosphate?low/hold?binder Phosphorus,?Calcium ??04/18/2022:?1.8,?8.9 ??03/14/2022:?9.0,?8.2 ??02/21/2022:?7.3,?8.1 ?? PTH,?Intact ??04/18/2022:?52.0 ??03/14/2022:?75.0 ??02/21/2022:?39.0 Vitamin?D?(Calcitriol)?Oral?(mcg) ??05/09/2022:?1.0 ??05/06/2022:?1.0 ??05/04/2022:?1.0 NUTRITION?ASSESSMENT Albumin,?Potassium ??04/18/2022:?4.4,?4.9 ??03/18/2022:?-,?5.3 ??03/14/2022:?4.1,?6.2 ?? eNPCR ??04/18/2022:?0.78 ??03/14/2022:?1.03 ??02/21/2022:?0.63 DIAGNOSIS Chief?Complaint:?N18.6?End?stage?renal?disease Patient?data?updated?05/11/2022?at?10:06?AM Signed?By:?Jorge,?Kyara,?MANGLE PRESS CATCHER??on?05/11/2022?10:07:29 AM END OF DOCUMENT
--- OUTSIDE RECORDS SUMMARY | 2023-03-18 10:30 | XMS_ITS ---
Author Name Isidoro Cuellar Address [address] [place], [place] [address] Phone [phone] Organization [facility], NA DOCUMENT DISCLAIMER Multiple document versions may exist, please be sure you review the latest version. The information in the [facility] Emergency Department Progress Note Document represents a providers documented clinical note containing certain health and medical information. It may not contain the complete medical history for the patient and should be independently verified. The represented time in the document is Eastern Time PROVIDER ROUNDING NOTE BASIC Patient:?ANUSHA?PAULA,?1965,?56y,?F Dialysis?Location:?[facility] Attending?Automotive Service Director:?Isidoro?Alisa Service?Date:?05/30/2022 Service?Provider:?Isidoro?Alisa,? I?met?face?to?face?with?the?patient?today. OVERVIEW The?patient?presented?with?ESRD?on?dialysis Comments:?Patient?is?so?seen?on?dialysis.?She?is?schedu led?for?catheter?removal?tomorrow. DIALYSIS?PRESCRIPTION ??IHD?3x?Week?Start?date:?04/06/22 ??Dialyzer:?160NRe?Optiflux ??BFR:?450 ??DFR:?Manual?500 ??Potassium:?2.0 ??Sodium:?137 ??EDW:?57 ??Duration:?4:00 ??Calcium:?2.5 ??Bicarb:?34 ??Rx?updated?on:?04/04/2022 TREATMENT?ASSESSMENT BP?Sit?Pre ??05/27/2022:?196/96 ??05/25/2022:?129/63 ??05/23/2022:?118/62 BP?Stand?Post ??05/27/2022:?188/90 ??05/25/2022:?139/62 BP?Sit?Post ??05/27/2022:?180/93 ??05/25/2022:?142/72 ??05/23/2022:?118/57 Tx?Duration ??05/27/2022:?4:10 ??05/25/2022:?4:00 ??05/23/2022:?3:41 Missed?Treatments 0?-?last?30?days 0?-?last?60?days FLUID?ASSESSMENT EDW?(kg) ??05/27/2022:?57.0 ??05/25/2022:?57.0 ??05/23/2022:?57.0 Weight?Pre?(kg) ??05/27/2022:?61.5 ??05/25/2022:?62.0 ??05/23/2022:?61.5 Weight?Post?(kg) ??05/27/2022:?58.8 ??05/25/2022:?59.1 ??05/23/2022:?58.7 PWV?(kg) ??05/27/2022:?1.8 ??05/25/2022:?2.1 ??05/23/2022:?1.7 UF?Rate?(mL/kg/hr) ??05/27/2022:?11 ??05/25/2022:?12.3 ??05/23/2022:?13 ADEQUACY?ASSESSMENT spKt/V,?URR ??05/16/2022:?1.46,?70.0 ??04/18/2022:?2.36,?86.0 ??03/14/2022:?1.51,?71.0 ACCESS?ASSESSMENT ??Access?Type:?AVFistula ??Access?SubType:?Standard ??Access?Status:?Active?(In?Use)?-?02/07/2022 ??Access?Location:?Right?Upper?Arm ??Created:?04/29/2021 Flow ??05/18/2022:?>2000 ??03/23/2022:?1761 ??03/18/2022:?1026 ANEMIA?ASSESSMENT HGB,?TSAT ??05/23/2022:?10.1,?- ??05/16/2022:?9.7,?29.0 ??05/09/2022:?10.2,?- ?? Ferritin ??05/16/2022:?731.0 ??04/18/2022:?1485.0 ??03/14/2022:?804.0 Mircera,?IVP?(mcg) ??05/27/2022:?75 ??04/29/2022:?75 ??03/25/2022:?75 Iron?Sucrose?(Venofer)?(mg) ??04/11/2022:?100 ??04/08/2022:?100 ??04/06/2022:?100 BMM?ASSESSMENT Phosphorus,?Calcium ??05/16/2022:?6.6,?9.3 ??04/18/2022:?1.8,?8.9 ??03/14/2022:?9.0,?8.2 ?? PTH,?Intact ??05/16/2022:?32.0 ??04/18/2022:?52.0 ??03/14/2022:?75.0 Vitamin?D?(Calcitriol)?Oral?(mcg) ??05/27/2022:?1.0 ??05/25/2022:?1.0 ??05/23/2022:?1.0 NUTRITION?ASSESSMENT Albumin,?Potassium ??05/16/2022:?4.2,?5.2 ??04/18/2022:?4.4,?4.9 ??03/18/2022:?-,?5.3 ?? eNPCR ??05/16/2022:?0.67 ??04/18/2022:?0.78 ??03/14/2022:?1.03 Patient?data?updated?05/30/2022?at?8:50?AM Signed?By:?Alisa,?Isidoro,???on?05/30/2022?8:50:51?AM END OF DOCUMENT
--- OUTSIDE RECORDS SUMMARY | 2023-03-18 10:30 | XMS_ITS ---
Author Name Ted Quintanilla Address [address] [place] [address] Phone [phone] Organization [facility], NA DOCUMENT DISCLAIMER Multiple document versions may exist, please be sure you review the latest version. The information in the [facility] Progress Note Document represents a providers documented clinical note containing certain health and medical information. It may not contain the complete medical history for the patient and should be independently verified. The represented time in the document is Eastern Time PROVIDER ROUNDING NOTE BASIC Patient:?ANUSHA?PAULA,?1965,?56y,?F Dialysis?Location:?[facility] Attending?Route Relief Driver:?Isidoro?Alisa Service?Date:?04/20/2022 Service?Provider:?Shanna?Dwight,?PYTHON CONSULTANT I?met?face?to?face?with?the?patient?today. OVERVIEW The?patient?presented?with?ESRD?on?dialysis Comments:?04/20/22-?Tolerating?HD?well?via?her?TDC?and?de nies?any?new?complaints.?AVF?assessed?and?noted?with?di minished?thrill,?+ve?bruit.?Last?seen?by??Lauryn?has ?fistula?eval?no?evidence?of?significant?stenosis?and?AVF?is?ready?to?use. Rn?informed?of?findings?and?recommendations?made?to?cannulat e?on?next?treatment?if?possible. Metabolic?and?volume?parameters?reviewed.? 2/1?Patient?feeling?poorly/mod?SOB/anorexia/cough.?Completed?1/2? run/only?had?1?kg?gain.?Ambulance?called?for?transport?to?local?ED No?rales?on?exam/distant?BS?with?wheezes/no?abd?guarding/liver?tender. 04/06?hospitalized?again?for???Pneumonia?at?[facility]/?her? right?upper?arm?fistula?was?infiltrated?and?we?are?agai n?using?catheter.?Will?try?to?get?catheter?out?in?next?couple?weeks LAST?HOSPITALIZATION Discharge?Diagnosis:?J12.9?Viral?pneumonia,?unspecified Admission?Date?03/28/22 Discharge?Date?04/03/22 DIALYSIS?PRESCRIPTION ??IHD?3x?Week?Start?date:?04/06/22 ??Dialyzer:?160NRe?Optiflux ??BFR:?450 ??DFR:?Manual?500 ??Potassium:?2.0 ??Sodium:?137 ??EDW:?57 ??Duration:?4:00 ??Calcium:?2.5 ??Bicarb:?34 ??Rx?updated?on:?04/04/2022 TREATMENT?ASSESSMENT BP?Sit?Pre ??04/18/2022:?141/69 ??04/13/2022:?141/71 ??04/11/2022:?163/83 BP?Stand?Post ??04/11/2022:?190/85 BP?Sit?Post ??04/18/2022:?136/60 ??04/13/2022:?141/71 ??04/11/2022:?186/80 Tx?Duration ??04/18/2022:?4:16 ??04/13/2022:?2:13 ??04/11/2022:?4:00 Missed?Treatments 0?-?last?30?days 0?-?last?60?days FLUID?ASSESSMENT EDW?(kg) ??04/18/2022:?57.0 ??04/13/2022:?57.0 ??04/11/2022:?57.0 Weight?Pre?(kg) ??04/18/2022:?57.6 ??04/13/2022:?56.7 ??04/11/2022:?58.2 Weight?Post?(kg) ??04/18/2022:?56.7 ??04/13/2022:?56.0 ??04/11/2022:?55.9 PWV?(kg) ??04/18/2022:?-0.3 ??04/13/2022:?-1.0 ??04/11/2022:?-1.1 UF?Rate?(mL/kg/hr) ??04/18/2022:?3.7 ??04/13/2022:?5.6 ??04/11/2022:?10.3 ADEQUACY?ASSESSMENT spKt/V,?URR ??03/14/2022:?1.51,?71.0 ??02/21/2022:?1.8,?78.0 ??01/24/2022:?1.7,?76.0 ACCESS?ASSESSMENT ??Access?Type:?AVFistula ??Access?SubType:?Standard ??Access?Status:?Active?(In?Use)?-?02/07/2022 ??Access?Location:?Right?Upper?Arm ??Created:?04/29/2021 Flow ??03/23/2022:?1761 ??03/18/2022:?1026 ??03/16/2022:?1387 ANEMIA?ASSESSMENT HGB ??04/11/2022:?9.5 ??04/04/2022:?11.4 ??03/21/2022:?10.9 ?? Ferritin ??03/14/2022:?804.0 ??02/21/2022:?712.0 ??01/24/2022:?749.0 Mircera,?IVP?(mcg) ??03/25/2022:?75 ??02/11/2022:?100 ??01/28/2022:?100 Iron?Sucrose?(Venofer)?(mg) ??04/11/2022:?100 ??04/06/2022:?100 ??04/04/2022:?100 BMM?ASSESSMENT Phosphorus,?Calcium ??03/14/2022:?9.0,?8.2 ??02/21/2022:?7.3,?8.1 ??01/24/2022:?6.4,?9.1 ?? PTH,?Intact ??03/14/2022:?75.0 ??02/21/2022:?39.0 ??01/24/2022:?29.0 Vitamin?D?(Calcitriol)?Oral?(mcg) ??04/18/2022:?1.0 ??04/13/2022:?1.0 ??04/11/2022:?1.0 NUTRITION?ASSESSMENT Albumin,?Potassium ??03/18/2022:?-,?5.3 ??03/14/2022:?4.1,?6.2 ??02/21/2022:?4.0,?4.7 ?? eNPCR ??03/14/2022:?1.03 ??02/21/2022:?0.63 ??01/24/2022:?0.73 DIAGNOSIS Chief?Complaint:?N18.6?End?stage?renal?disease Patient?data?updated?04/20/2022?at?9:30?AM Signed?By:?Dwight,?Shanna,?PYTHON CONSULTANT??on?04/20/2022?9:45:07?AM END OF DOCUMENT
--- OUTSIDE RECORDS SUMMARY | 2023-03-18 10:30 | XMS_ITS ---
Author Name Isidoro Cuellar Address [address] [place] [address] Phone [phone] Organization [facility], NA DOCUMENT DISCLAIMER The information in the [facility] Emergency Department Dialysis Provider Note Document represents a providersdocumented clinical note containing certain health and medical information. It may not contain the complete medical history for the patient and should be independently verified. The represented time in the document is Eastern Time PROVIDER ROUNDING NOTE COMPREHENSIVE Patient:?ANUSHA?PAULA,?1965,?56y,?F Dialysis?Location:?[facility] Attending?Retail Event Assistant:?Isidoro?Alisa Service?Date:?04/03/2022 Service?Provider:?Isidoro?Alisa,? I?met?face?to?face?with?the?patient?today. OVERVIEW The?patient?presented?with?ESRD?on?dialysis Comments:?04/06?hospitalized?again?for???Pneumonia?at?[place]/ ?her?right?upper?arm?fistula?was?infiltrated?and?we&#16 0;are?again?using?catheter.?Will?try?to?get?catheter?out?in?next?couple?weeks Medications?and?labs?reviewed. LAST?HOSPITALIZATION Discharge?Diagnosis:?T82.530A?Leakage?of?surgically?created?arter iovenous?fistula,?initial?encounter Admission?Date?10/31/21 Discharge?Date?11/03/21 DIALYSIS?PRESCRIPTION ??IHD?3x?Week?Start?date:?02/09/22 ??Dialyzer:?160NRe?Optiflux ??BFR:?450 ??DFR:?Manual?500 ??Potassium:?2.0 ??Sodium:?137 ??EDW:?59.6 ??Duration:?4:00 ??Calcium:?2.5 ??Bicarb:?34 ??Rx?updated?on:?02/08/2022 TREATMENT?ASSESSMENT Blood?pressure?controlled.?No?changes?indicated.? BP?Stand?Pre ??03/23/2022:?116/56 BP?Sit?Pre ??03/25/2022:?114/63 ??03/23/2022:?127/71 ??03/21/2022:?163/89 BP?Stand?Post ??03/25/2022:?149/71 ??03/23/2022:?126/67 ??03/21/2022:?153/72 BP?Sit?Post ??03/25/2022:?133/78 ??03/23/2022:?116/55 ??03/21/2022:?121/58 Tx?Duration ??03/25/2022:?4:05 ??03/23/2022:?4:10 ??03/21/2022:?3:03 Missed?Treatments 0?-?last?30?days 0?-?last?60?days FLUID?ASSESSMENT Fluid?status?acceptable.?Interdialytic?weight?gain?not?acceptable .?Optimal?weight?discussed.? EDW?(kg) ??03/25/2022:?59.6 ??03/23/2022:?59.6 ??03/21/2022:?59.6 Weight?Pre?(kg) ??03/25/2022:?63.7 ??03/23/2022:?66.0 ??03/21/2022:?68.7 Weight?Post?(kg) ??03/25/2022:?60.1 ??03/23/2022:?63.0 ??03/21/2022:?64.2 PWV?(kg) ??03/25/2022:?0.5 ??03/23/2022:?3.4 ??03/21/2022:?4.6 UF?Rate?(mL/kg/hr) ??03/25/2022:?14.7 ??03/23/2022:?11.4 ??03/21/2022:?23 ADEQUACY?ASSESSMENT Adequacy?target?met.?Prescription?compliance?not?acceptable.?Coun seled?patient?regarding?prescription?compliance.? spKt/V,?URR ??03/14/2022:?1.51,?71.0 ??02/21/2022:?1.8,?78.0 ??01/24/2022:?1.7,?76.0 ACCESS?ASSESSMENT ??Access?Type:?AVFistula ??Access?SubType:?Standard ??Access?Status:?Active?(In?Use)?-?02/07/2022 ??Access?Location:?Right?Upper?Arm ??Created:?04/29/2021 Flow ??03/23/2022:?1761 ??03/18/2022:?1026 ??03/16/2022:?1387 Vascular?access?reviewed.?New?access?developing?-?awaiting?use. ANEMIA?ASSESSMENT FRANCISCO?adjusted?per?protocol.?Anemia?reviewed.? HGB,?TSAT ??03/21/2022:?10.9,?- ??03/14/2022:?10.9,?27.0 ??02/28/2022:?11.2,?- ?? Ferritin ??03/14/2022:?804.0 ??02/21/2022:?712.0 ??01/24/2022:?749.0 Mircera,?IVP?(mcg) ??03/25/2022:?75 ??02/11/2022:?100 ??01/28/2022:?100 Iron?Sucrose?(Venofer)?(mg) ??01/31/2022:?100 ??01/28/2022:?100 ??01/26/2022:?100 BMM?ASSESSMENT PTH?low.?Bone?and?mineral?metabolism?parameters?reviewed.?Ca lcium?controlled.?Hyperphosphatemia?noted.?Referred?to?stem processing machine operator? for?further?counseling.? Phosphorus,?Calcium ??03/14/2022:?9.0,?8.2 ??02/21/2022:?7.3,?8.1 ??01/24/2022:?6.4,?9.1 ?? PTH,?Intact ??03/14/2022:?75.0 ??02/21/2022:?39.0 ??01/24/2022:?29.0 Vitamin?D?(Calcitriol)?Oral?(mcg) ??03/25/2022:?1.0 ??03/23/2022:?1.0 ??03/21/2022:?1.0 NUTRITION?ASSESSMENT Nutrition?reviewed.?Potassium?controlled.? Albumin,?Potassium ??03/18/2022:?-,?5.3 ??03/14/2022:?4.1,?6.2 ??02/21/2022:?4.0,?4.7 ?? eNPCR ??03/14/2022:?1.03 ??02/21/2022:?0.63 ??01/24/2022:?0.73 PHYSICAL?EXAM Exam?Performed.?Lungs?-?With?bibasilar?rales.?Lungs?-?W ith?wheezing.?CV?-?Blood?pressure?noted. DIAGNOSIS Chief?Complaint:?N18.6?End?stage?renal?disease Patient?data?updated?04/03/2022?at?6:45?AM Signed?By:?Alisa,?Isidoro???on?04/06/2022?9:59:50?AM END OF DOCUMENT
--- OUTSIDE RECORDS SUMMARY | 2023-03-18 10:30 | XMS_ITS ---
Author Name Isidoro Cuellar Address [address] [place], [place] [address] Phone [phone] Organization [facility] e, NA DOCUMENT DISCLAIMER Multiple document versions may exist, please be sure you review the latest version. The information in the [facility] Emergency Department Progress Note Document represents a providers documented clinical note containing certain health and medical information. It may not contain the complete medical history for the patient and should be independently verified. The represented time in the document is Eastern Time PROVIDER ROUNDING NOTE BASIC Patient:?ANUSHA?PALUA,?1965,?56y,?F Dialysis?Location:?[facility] Attending?Compensation Specialist:?Isidoro?Alisa Service?Date:?06/13/2022 Service?Provider:?Isidoro?Alisa,? I?met?face?to?face?with?the?patient?today. OVERVIEW The?patient?presented?with?ESRD?on?dialysis Comments:?4/3?patient?with?high?fluid?gain,?over?7?L.&# 160;Will?do?sequential?ultrafiltration?dialysis?also?needed?tempo rary?refill?on?minoxidil DIALYSIS?PRESCRIPTION ??IHD?3x?Week?Start?date:?06/10/22 ??Dialyzer:?160NRe?Optiflux ??BFR:?450 ??DFR:?Manual?500 ??Potassium:?2.0 ??Sodium:?137 ??EDW:?57.5 ??Duration:?4:00 ??Calcium:?2.5 ??Bicarb:?34 ??Rx?updated?on:?06/08/2022 TREATMENT?ASSESSMENT BP?Sit?Pre ??06/10/2022:?192/97 ??06/08/2022:?196/107 ??06/06/2022:?144/83 BP?Stand?Post ??06/10/2022:?191/98 ??06/08/2022:?150/70 BP?Sit?Post ??06/10/2022:?181/94 ??06/08/2022:?132/71 ??06/06/2022:?129/64 Tx?Duration ??06/10/2022:?4:30 ??06/08/2022:?3:56 ??06/06/2022:?3:55 Missed?Treatments 0?-?last?30?days 0?-?last?60?days FLUID?ASSESSMENT EDW?(kg) ??06/10/2022:?57.5 ??06/08/2022:?57.0 ??06/06/2022:?57.0 Weight?Pre?(kg) ??06/10/2022:?60.5 ??06/08/2022:?59.8 ??06/06/2022:?61.5 Weight?Post?(kg) ??06/10/2022:?57.0 ??06/08/2022:?57.2 ??06/06/2022:?57.7 PWV?(kg) ??06/10/2022:?-0.5 ??06/08/2022:?0.2 ??06/06/2022:?0.7 UF?Rate?(mL/kg/hr) ??06/10/2022:?13.6 ??06/08/2022:?11.6 ??06/06/2022:?16.8 ADEQUACY?ASSESSMENT spKt/V,?URR ??05/16/2022:?1.46,?70.0 ??04/18/2022:?2.36,?86.0 ??03/14/2022:?1.51,?71.0 ACCESS?ASSESSMENT ??Access?Type:?AVFistula ??Access?SubType:?Standard ??Access?Status:?Active?(In?Use)?-?02/07/2022 ??Access?Location:?Right?Upper?Arm ??Created:?04/29/2021 Flow ??05/18/2022:?>2000 ??03/23/2022:?1761 ??03/18/2022:?1026 ANEMIA?ASSESSMENT HGB ??06/06/2022:?9.8 ??05/30/2022:?10.5 ??05/23/2022:?10.1 ?? Ferritin ??05/16/2022:?731.0 ??04/18/2022:?1485.0 ??03/14/2022:?804.0 Mircera,?IVP?(mcg) ??05/27/2022:?75 ??04/29/2022:?75 ??03/25/2022:?75 Iron?Sucrose?(Venofer)?(mg) ??04/11/2022:?100 ??04/08/2022:?100 ??04/06/2022:?100 BMM?ASSESSMENT Phosphorus,?Calcium ??05/16/2022:?6.6,?9.3 ??04/18/2022:?1.8,?8.9 ??03/14/2022:?9.0,?8.2 ?? PTH,?Intact ??05/16/2022:?32.0 ??04/18/2022:?52.0 ??03/14/2022:?75.0 Vitamin?D?(Calcitriol)?Oral?(mcg) ??06/10/2022:?1.0 ??06/08/2022:?1.0 ??06/06/2022:?1.0 NUTRITION?ASSESSMENT Albumin,?Potassium ??05/16/2022:?4.2,?5.2 ??04/18/2022:?4.4,?4.9 ??03/18/2022:?-,?5.3 ?? eNPCR ??05/16/2022:?0.67 ??04/18/2022:?0.78 ??03/14/2022:?1.03 Patient?data?updated?06/13/2022?at?12:49?PM Signed?By:?Alisa,?Isidoro,???on?06/13/2022?12:50:19 PM END OF DOCUMENT
--- OUTSIDE RECORDS SUMMARY | 2023-03-18 10:30 | XMS_ITS ---
Author Name Isidoro Cuellar Address [address] [place] [address] Phone [phone] Organization [facility] e, NA DOCUMENT DISCLAIMER Multiple document versions may exist, please be sure you review the latest version. The information in the [facility] Progress Note Document represents a providers documented clinical note containing certain health and medical information. It may not contain the complete medical history for the patient and should be independently verified. The represented time in the document is Eastern Time PROVIDER ROUNDING NOTE COMPREHENSIVE Patient:?ANUSHA?PAULA,?1965,?57y,?F Dialysis?Location:?[facility] Attending?Multisensor Intelligence Officer:?Isidoro?Alisa Service?Date:?08/29/2022 Service?Provider:?Isidoro?Alisa,? I?met?face?to?face?with?the?patient?today. OVERVIEW The?patient?presented?with?ESRD?on?dialysis Comments:?08/29?Doing?somewhat?better/?COPD?improved LAST?HOSPITALIZATION Discharge?Diagnosis:?786.09?RESP?ABNORMALITY?NEC Admission?Date?08/07/22 Discharge?Date?08/09/22 DIALYSIS?PRESCRIPTION ??IHD?3x?Week?Start?date:?08/10/22 ??Dialyzer:?160NRe?Optiflux ??BFR:?450 ??DFR:?Manual?500 ??Potassium:?2.0 ??Sodium:?137 ??EDW:?54.5 ??Duration:?4:00 ??Calcium:?2.5 ??Bicarb:?34 ??Rx?updated?on:?08/10/2022 TREATMENT?ASSESSMENT Blood?pressure?elevated.?Medications?adjusted.? BP?Stand?Pre ??08/26/2022:?167/73 ??08/24/2022:?158/73 BP?Sit?Pre ??08/26/2022:?163/82 ??08/24/2022:?165/75 ??08/22/2022:?169/91 BP?Stand?Post ??08/26/2022:?186/86 ??08/24/2022:?149/66 BP?Sit?Post ??08/26/2022:?184/86 ??08/24/2022:?144/59 ??08/22/2022:?194/93 Tx?Duration ??08/26/2022:?4:07 ??08/24/2022:?4:11 ??08/22/2022:?4:03 Missed?Treatments 0?-?last?30?days 0?-?last?60?days FLUID?ASSESSMENT Fluid?status?not?acceptable.?Interdialytic?weight?gain?not?a cceptable.?Diet?reviewed?with?patient.? EDW?(kg) ??08/26/2022:?54.5 ??08/24/2022:?54.5 ??08/22/2022:?54.5 Weight?Pre?(kg) ??08/26/2022:?57.2 ??08/24/2022:?58.2 ??08/22/2022:?59.8 Weight?Post?(kg) ??08/26/2022:?55.0 ??08/24/2022:?55.4 ??08/22/2022:?56.6 PWV?(kg) ??08/26/2022:?0.5 ??08/24/2022:?0.9 ??08/22/2022:?2.1 UF?Rate?(mL/kg/hr) ??08/26/2022:?9.7 ??08/24/2022:?12.1 ??08/22/2022:?14 ADEQUACY?ASSESSMENT Adequacy?target?met.?Prescription?compliance?acceptable.? spKt/V,?URR ??08/15/2022:?1.76,?76.0 ??08/10/2022:?1.28,?65.0 ??07/11/2022:?3.63,?93.0 ACCESS?ASSESSMENT ??Access?Type:?AVFistula ??Access?SubType:?Standard ??Access?Status:?Active?(In?Use)?-?02/07/2022 ??Access?Location:?Right?Upper?Arm ??Created:?04/29/2021 Flow ??08/29/2022:?1606 ??08/24/2022:?986 ??07/13/2022:?1109 Vascular?access?reviewed.?Current?access?is?permanent?and?functioning?well. ANEMIA?ASSESSMENT HGB?below?goal.?Iron?parameters?acceptable.?FRANCISCO?dose?adequate.? HGB,?TSAT ??08/22/2022:?9.8,?- ??08/15/2022:?10.1,?25.0 ??08/10/2022:?9.9,?- ?? Ferritin ??08/15/2022:?982.0 ??07/11/2022:?784.0 ??06/13/2022:?727.0 Mircera,?IVP?(mcg) ??08/19/2022:?50 ??08/05/2022:?50 ??07/22/2022:?50 Iron?Sucrose?(Venofer)?(mg) ??08/12/2022:?100 ??08/10/2022:?100 ??08/05/2022:?100 BMM?ASSESSMENT PTH?low.?Calcium?controlled.?Phosphorus?elevated.?BMM?meds?a dherence?not?acceptable.? Phosphorus,?Calcium ??08/15/2022:?6.2,?8.0 ??07/11/2022:?7.8,?8.5 ??06/13/2022:?7.1,?9.1 ?? PTH,?Intact ??07/11/2022:?69.0 ??06/13/2022:?44.0 ??05/16/2022:?32.0 Vitamin?D?(Calcitriol)?Oral?(mcg) ??06/22/2022:?1.0 ??06/20/2022:?1.0 ??06/17/2022:?1.0 NUTRITION?ASSESSMENT Potassium?above?goal.?Albumin?controlled.?Diet?reviewed?with patient.? Albumin,?Potassium ??08/19/2022:?-,?6.1 ??08/15/2022:?4.3,?6.9 ??07/11/2022:?4.1,?5.4 ?? eNPCR ??08/15/2022:?1.0 ??08/10/2022:?0.89 ??06/13/2022:?1.03 PHYSICAL?EXAM Exam?Performed.?Lungs?-?With?bibasilar?rales.?CV?-?Blood?pressure?noted. DIAGNOSIS Chief?Complaint:?N18.6?End?stage?renal?disease Patient?data?updated?08/29/2022?at?9:30?AM Signed?By:?Alisa,?Isidoro,???on?08/29/2022?9:35:00?AM END OF DOCUMENT
--- OUTSIDE RECORDS SUMMARY | 2023-03-18 10:30 | XMS_ITS ---
Author Name Ted Quintanilla [facility] Address [address] [place] [address] Phone [phone] Organization [facility] e, NA DOCUMENT DISCLAIMER Multiple document versions may exist, please be sure you review the latest version. The information in the [facility] Progress Note Document represents a providers documented clinical note containing certain health and medical information. It may not contain the complete medical history for the patient and should be independently verified. The represented time in the document is Eastern Time PROVIDER ROUNDING NOTE BASIC Revised?By:?Shanna?Dwight,?COPY CHASER Revised?Date:?11/11/2022?12:42:18?PM Revised?Reason:?additional?information Patient:?ANUSHA?PAULA,?1965,?57y,?F Dialysis?Location:?[facility] Attending?Electric Motor Control Assembler:?Isidoro?Alisa Service?Date:?11/11/2022 Service?Provider:?Shanna?Dwight,?COPY CHASER I?met?face?to?face?with?the?patient?today. OVERVIEW The?patient?presented?with?ESRD?on?dialysis Comments:?11/11/22 Patient?came?in?with?large?IDWG.?She?ran?for?5hours&#16 0;with?aim?to?remove?4.5L?as?she?refused?seq.?She? tolerated?HD?session?well?however?post?treatment?she?is still?having?SOB.? She?has?had?COPD?exacerbation?post?treatment?prior?when&#160 ;she?comes?in?with?large?IDWG.?She?will?be?sent?to?the?hospital?today. LAST?HOSPITALIZATION Discharge?Diagnosis:?786.09?RESP?ABNORMALITY?NEC Admission?Date?08/07/22 Discharge?Date?08/09/22 DIALYSIS?PRESCRIPTION ??IHD?3x?Week?Start?date:?08/10/22 ??Dialyzer:?160NRe?Optiflux ??BFR:?450 ??DFR:?Manual?500 ??Potassium:?2.0 ??Sodium:?137 ??EDW:?54.5 ??Duration:?4:00 ??Calcium:?2.5 ??Bicarb:?34 ??Rx?updated?on:?08/10/2022 TREATMENT?ASSESSMENT BP?Stand?Pre ??11/07/2022:?152/81 ??11/04/2022:?182/75 BP?Sit?Pre ??11/09/2022:?144/71 ??11/07/2022:?160/85 ??11/04/2022:?176/85 BP?Stand?Post ??11/09/2022:?142/71 ??11/07/2022:?138/69 ??11/04/2022:?156/77 BP?Sit?Post ??11/09/2022:?149/73 ??11/07/2022:?135/60 ??11/04/2022:?146/67 Tx?Duration ??11/09/2022:?4:09 ??11/07/2022:?4:08 ??11/04/2022:?3:59 Missed?Treatments 0?-?last?30?days 0?-?last?60?days FLUID?ASSESSMENT EDW?(kg) ??11/09/2022:?54.5 ??11/07/2022:?54.5 ??11/04/2022:?54.5 Weight?Pre?(kg) ??11/09/2022:?57.0 ??11/07/2022:?57.3 ??11/04/2022:?57.0 Weight?Post?(kg) ??11/09/2022:?54.5 ??11/07/2022:?54.7 ??11/04/2022:?54.5 PWV?(kg) ??11/09/2022:?0.0 ??11/07/2022:?0.2 ??11/04/2022:?0.0 UF?Rate?(mL/kg/hr) ??11/09/2022:?11.1 ??11/07/2022:?11.5 ??11/04/2022:?11.5 ADEQUACY?ASSESSMENT spKt/V,?URR ??10/17/2022:?1.96,?80.0 ??09/14/2022:?1.74,?75.0 ??08/15/2022:?1.76,?76.0 ACCESS?ASSESSMENT ??Access?Type:?AVFistula ??Access?SubType:?Standard ??Access?Status:?Active?(In?Use)?-?02/07/2022 ??Access?Location:?Right?Upper?Arm ??Created:?04/29/2021 Flow ??10/19/2022:?>2000 ??08/29/2022:?1606 ??08/24/2022:?986 ANEMIA?ASSESSMENT HGB ??11/07/2022:?10.8 ??10/31/2022:?10.9 ??10/24/2022:?11.6 ?? Ferritin ??10/17/2022:?643.0 ??09/14/2022:?680.0 ??08/15/2022:?982.0 Mircera,?IVP?(mcg) ??11/04/2022:?30 ??09/16/2022:?60 ??09/02/2022:?50 Iron?Sucrose?(Venofer)?(mg) ??08/12/2022:?100 BMM?ASSESSMENT Phosphorus,?Calcium ??10/17/2022:?6.9,?9.0 ??10/03/2022:?6.8,?- ??09/14/2022:?7.5,?8.1 ?? PTH,?Intact ??07/11/2022:?69.0 ??06/13/2022:?44.0 ??05/16/2022:?32.0 NUTRITION?ASSESSMENT Albumin,?Potassium ??10/24/2022:?-,?4.7 ??10/17/2022:?4.5,?6.1 ??09/14/2022:?4.4,?5.8 ?? eNPCR ??10/17/2022:?0.89 ??09/14/2022:?0.93 ??08/15/2022:?1.0 DIAGNOSIS Chief?Complaint:?N18.6?End?stage?renal?disease Patient?data?updated?11/11/2022?at?9:06?AM Signed?By:?Dwight,?Shanna,?COPY CHASER??on?11/11/2022?12:42:18?PM END OF DOCUMENT
--- OUTSIDE RECORDS SUMMARY | 2023-03-18 10:30 | XMS_ITS ---
Author Name Brady Patelcy Address [address] [place] [address] Phone [phone] Organization [facility] e, NA DOCUMENT DISCLAIMER Multiple document versions may exist, please be sure you review the latest version. The information in the [facility] Progress Note Document represents a providers documented clinical note containing certain health and medical information. It may not contain the complete medical history for the patient and should be independently verified. The represented time in the document is Eastern Time PROVIDER ROUNDING NOTE BASIC Patient:?ANUSHA?PAULA,?1965,?57y,?F Dialysis?[facility] Attending?Conveyor Attendant:?Isidoro?Alisa Service?Date:?11/21/2022 Service?Provider:?Kyara?Jorge,?THERAPEUTIC CONSULTANT I?met?face?to?face?with?the?patient?today. OVERVIEW The?patient?presented?with?ESRD?on?dialysis Comments:?11/21/22?-?Large?IDWG?today,?she?states?she?we nt?to?the?fair?and?went?off?the?rails,?I'll? do?better.??She?is?following?up?with?her?PCP&#160 ;this?week?regarding?her?pneumonia.?She?is?no?longer?on ?abx?or?steroids,?states?she?is?feeling?better,?less&#1 60;sob,?cough?improved.?Stable?dialysis?treatment.? 11/11/22 Patient?came?in?with?large?IDWG.?She?ran?for?5hours&#16 0;with?aim?to?remove?4.5L?as?she?refused?seq.?She? tolerated?HD?session?well?however?post?treatment?she?is still?having?SOB.? She?has?had?COPD?exacerbation?post?treatment?prior?when&#160 ;she?comes?in?with?large?IDWG.?She?will?be?sent?to?the?hospital?today. Medications?and?labs?reviewed. LAST?HOSPITALIZATION Discharge?Diagnosis:?786.09?RESP?ABNORMALITY?NEC Admission?Date?08/07/22 Discharge?Date?08/09/22 DIALYSIS?PRESCRIPTION ??IHD?3x?Week?Start?date:?08/10/22 ??Dialyzer:?160NRe?Optiflux ??BFR:?450 ??DFR:?Manual?500 ??Potassium:?2.0 ??Sodium:?137 ??EDW:?54.5 ??Duration:?4:00 ??Calcium:?2.5 ??Bicarb:?34 ??Rx?updated?on:?08/10/2022 TREATMENT?ASSESSMENT BP?Stand?Pre ??11/18/2022:?147/77 ??11/16/2022:?120/53 ??11/14/2022:?191/106 BP?Sit?Pre ??11/18/2022:?130/68 ??11/16/2022:?122/60 ??11/14/2022:?149/84 BP?Stand?Post ??11/18/2022:?134/51 ??11/16/2022:?128/62 ??11/14/2022:?165/85 BP?Sit?Post ??11/18/2022:?154/59 ??11/16/2022:?131/68 ??11/14/2022:?136/64 Tx?Duration ??11/18/2022:?4:03 ??11/16/2022:?4:03 ??11/14/2022:?4:50 Missed?Treatments 0?-?last?30?days 0?-?last?60?days FLUID?ASSESSMENT EDW?(kg) ??11/18/2022:?54.5 ??11/16/2022:?54.5 ??11/14/2022:?54.5 Weight?Pre?(kg) ??11/18/2022:?58.2 ??11/16/2022:?59.5 ??11/14/2022:?58.0 Weight?Post?(kg) ??11/18/2022:?55.2 ??11/16/2022:?56.6 ??11/14/2022:?54.9 PWV?(kg) ??11/18/2022:?0.7 ??11/16/2022:?2.1 ??11/14/2022:?0.4 UF?Rate?(mL/kg/hr) ??11/18/2022:?13.4 ??11/16/2022:?12.7 ??11/14/2022:?11.7 ADEQUACY?ASSESSMENT spKt/V,?URR ??11/14/2022:?2.36,?85.0 ??10/17/2022:?1.96,?80.0 ??09/14/2022:?1.74,?75.0 ACCESS?ASSESSMENT ??Access?Type:?AVFistula ??Access?SubType:?Standard ??Access?Status:?Active?(In?Use)?-?02/07/2022 ??Access?Location:?Right?Upper?Arm ??Created:?04/29/2021 Flow ??10/19/2022:?>2000 ??08/29/2022:?1606 ??08/24/2022:?986 ANEMIA?ASSESSMENT HGB,?TSAT ??11/14/2022:?10.5,?24.0 ??11/07/2022:?10.8,?- ??10/31/2022:?10.9,?- ?? Ferritin ??11/14/2022:?599.0 ??10/17/2022:?643.0 ??09/14/2022:?680.0 Mircera,?IVP?(mcg) ??11/18/2022:?30 ??11/04/2022:?30 ??09/16/2022:?60 BMM?ASSESSMENT Phosphorus,?Calcium ??11/14/2022:?6.1,?7.8 ??10/17/2022:?6.9,?9.0 ??10/03/2022:?6.8,?- ?? PTH,?Intact ??11/14/2022:?161.0 ??07/11/2022:?69.0 ??06/13/2022:?44.0 NUTRITION?ASSESSMENT Albumin,?Potassium ??11/14/2022:?4.2,?5.1 ??10/24/2022:?-,?4.7 ??10/17/2022:?4.5,?6.1 ?? eNPCR ??11/14/2022:?1.5 ??10/17/2022:?0.89 ??09/14/2022:?0.93 DIAGNOSIS Chief?Complaint:?N18.6?End?stage?renal?disease Patient?data?updated?11/21/2022?at?9:00?AM Signed?By:?Jorge,?Kyara,?THERAPEUTIC CONSULTANT??on?11/21/2022?9:02:05?AM END OF DOCUMENT
--- OUTSIDE RECORDS SUMMARY | 2023-03-18 10:30 | XMS_ITS ---
Author Name Isidoro Cuellar Address [address] [place], [place] [address] Phone [phone] Organization [facility] e, NA DOCUMENT DISCLAIMER Multiple document versions may exist, please be sure you review the latest version. The information in the [facility] Progress Note Document represents a providers documented clinical note containing certain health and medical information. It may not contain the complete medical history for the patient and should be independently verified. The represented time in the document is Eastern Time PROVIDER ROUNDING NOTE COMPREHENSIVE Patient:?ANUSHA?PAULA,?1965,?57y,?F Dialysis?Location:[facility] Attending?Management Expert:?Isidoro?Alisa Service?Date:?01/25/2023 Service?Provider:?Isidoro?Alisa,? I?met?face?to?face?with?the?patient?today. OVERVIEW The?patient?presented?with?ESRD?on?dialysis Comments:?01/25?doing?ok,?having?follow?up?for???Anaphy laxis?with?electrical transmission engineer,?completed?recent?treatment?of?COPD?exacerbations. Medications?and?labs?reviewed. HOME?MEDICATIONS Comments:?L LAST?HOSPITALIZATION Discharge?Diagnosis:?R60.9?Edema,?unspecified Admission?Date?11/28/22 Discharge?Date?12/01/22 DIALYSIS?PRESCRIPTION ??IHD?3x?Week?Start?date:?01/11/23 ??Dialyzer:?160NRe?Optiflux ??BFR:?450 ??DFR:?Manual?500 ??Potassium:?2.0 ??Sodium:?137 ??EDW:?54.5 ??Duration:?4:00 ??Calcium:?2.5 ??Bicarb:?34 ??Rx?updated?on:?01/09/2023 TREATMENT?ASSESSMENT Blood?pressure?elevated.?No?changes?indicated.? BP?Stand?Pre ??01/23/2023:?164/85 ??01/20/2023:?189/85 ??01/18/2023:?160/82 BP?Sit?Pre ??01/23/2023:?154/82 ??01/20/2023:?180/81 ??01/18/2023:?155/79 BP?Stand?Post ??01/23/2023:?170/97 ??01/20/2023:?127/75 ??01/18/2023:?175/83 BP?Sit?Post ??01/23/2023:?144/77 ??01/20/2023:?147/71 ??01/18/2023:?161/81 Tx?Duration ??01/23/2023:?4:07 ??01/20/2023:?3:58 ??01/18/2023:?4:05 Missed?Treatments 0?-?last?30?days 0?-?last?60?days FLUID?ASSESSMENT Fluid?status?acceptable.?Interdialytic?weight?gain?acceptable.?No ?changes?indicated.? EDW?(kg) ??01/23/2023:?54.5 ??01/20/2023:?54.5 ??01/18/2023:?54.5 Weight?Pre?(kg) ??01/23/2023:?61.7 ??01/20/2023:?56.6 ??01/18/2023:?56.2 Weight?Post?(kg) ??01/23/2023:?57.3 ??01/20/2023:?54.1 ??01/18/2023:?54.3 PWV?(kg) ??01/23/2023:?2.8 ??01/20/2023:?-0.4 ??01/18/2023:?-0.2 UF?Rate?(mL/kg/hr) ??01/23/2023:?18.7 ??01/20/2023:?11.6 ??01/18/2023:?8.6 ADEQUACY?ASSESSMENT Adequacy?target?met.?Prescription?compliance?acceptable.? spKt/V,?URR ??01/16/2023:?1.78,?78.0 ??12/12/2022:?1.51,?70.0 ??11/14/2022:?2.36,?85.0 ACCESS?ASSESSMENT ??Access?Type:?AVFistula ??Access?SubType:?Standard ??Access?Status:?Active?(In?Use)?-?02/07/2022 ??Access?Location:?Right?Upper?Arm ??Created:?04/29/2021 Flow ??01/20/2023:?>1999 ??01/18/2023:?>1999 ??10/19/2022:?>1999 Vascular?access?reviewed.?Current?access?is?permanent?and?functioning?well. ANEMIA?ASSESSMENT HGB?at?goal.?Iron?parameters?acceptable.?FRANCISCO?dose?adequate.& #160;No?changes?indicated.? HGB,?TSAT ??01/16/2023:?11.6,?24.0 ??01/09/2023:?11.1,?- ??01/02/2023:?9.9,?- ?? Ferritin ??01/16/2023:?648.0 ??12/12/2022:?1172.0 ??11/14/2022:?599.0 Mircera,?IVP?(mcg) ??01/13/2023:?75 ??12/30/2022:?75 ??12/16/2022:?30 BMM?ASSESSMENT PTH?low.?Calcium?controlled.?Phosphorus?controlled.?BMM?meds&#160 ;adherence?not?acceptable.?Diet?reviewed?with?patient.? Phosphorus,?Calcium ??01/16/2023:?7.3,?8.6 ??12/12/2022:?7.1,?8.3 ??11/21/2022:?-,?7.8 ?? PTH,?Intact ??01/16/2023:?167.0 ??12/12/2022:?136.0 ??11/14/2022:?161.0 NUTRITION?ASSESSMENT Potassium?controlled.?Albumin?controlled.?No?changes?indicated.? Albumin,?Potassium ??01/16/2023:?4.6,?5.6 ??12/12/2022:?4.2,?5.3 ??11/14/2022:?4.2,?5.1 ?? eNPCR ??01/16/2023:?0.74 ??12/12/2022:?0.83 ??11/14/2022:?1.5 PHYSICAL?EXAM Exam?Performed.?Lungs?-?With?wheezing. DIAGNOSIS Chief?Complaint:?N18.6?End?stage?renal?disease Patient?data?updated?01/25/2023?at?9:38?AM Signed?By:?Alisa,?Isidoro,???on?01/25/2023?9:41:42?AM END OF DOCUMENT
--- OUTSIDE RECORDS SUMMARY | 2023-03-18 10:30 | XMS_ITS ---
Author Name Isidoro Cuellar Address [address] [place] [id number] Phone [phone] Organization [facility] e, NA DOCUMENT DISCLAIMER Multiple document versions may exist, please be sure you review the latest version. The information in the [facility] Progress Note Document represents a providers documented clinical note containing certain health and medical information. It may not contain the complete medical history for the patient and should be independently verified. The represented time in the document is Eastern Time PROVIDER ROUNDING NOTE BASIC Patient:?ANUSHA?PAULA,?1965,?57y,?F Dialysis?Location:?[facility] Attending?Cardroom Plastic Card Grader:?Isidoro?Alisa Service?Date:?01/30/2023 Service?Provider:?Isidoro?Alisa,? I?met?face?to?face?with?the?patient?today. OVERVIEW The?patient?presented?with?ESRD?on?dialysis Comments:?01/30?Patient?with?significant?fluid?overload.?Reviewed ?fluid?intake?with?her/access?working?well. DIALYSIS?PRESCRIPTION ??IHD?3x?Week?Start?date:?01/11/23 ??Dialyzer:?160NRe?Optiflux ??BFR:?450 ??DFR:?Manual?500 ??Potassium:?2.0 ??Sodium:?137 ??EDW:?54.5 ??Duration:?4:00 ??Calcium:?2.5 ??Bicarb:?34 ??Rx?updated?on:?01/09/2023 TREATMENT?ASSESSMENT BP?Stand?Pre ??01/27/2023:?175/105 ??01/25/2023:?179/88 ??01/23/2023:?164/85 BP?Sit?Pre ??01/27/2023:?176/103 ??01/25/2023:?171/91 ??01/23/2023:?154/82 BP?Stand?Post ??01/27/2023:?171/96 ??01/23/2023:?170/97 BP?Sit?Post ??01/27/2023:?176/83 ??01/25/2023:?173/91 ??01/23/2023:?144/77 Tx?Duration ??01/27/2023:?4:04 ??01/25/2023:?4:16 ??01/23/2023:?4:07 Missed?Treatments 0?-?last?30?days 0?-?last?60?days FLUID?ASSESSMENT EDW?(kg) ??01/27/2023:?54.5 ??01/25/2023:?54.5 ??01/23/2023:?54.5 Weight?Pre?(kg) ??01/27/2023:?61.2 ??01/25/2023:?60.1 ??01/23/2023:?61.7 Weight?Post?(kg) ??01/27/2023:?56.2 ??01/25/2023:?57.4 ??01/23/2023:?57.3 PWV?(kg) ??01/27/2023:?1.7 ??01/25/2023:?2.9 ??01/23/2023:?2.8 UF?Rate?(mL/kg/hr) ??01/27/2023:?21.9 ??01/25/2023:?11 ??01/23/2023:?18.7 ADEQUACY?ASSESSMENT spKt/V,?URR ??01/16/2023:?1.78,?78.0 ??12/12/2022:?1.51,?70.0 ??11/14/2022:?2.36,?85.0 ACCESS?ASSESSMENT ??Access?Type:?AVFistula ??Access?SubType:?Standard ??Access?Status:?Active?(In?Use)?-?02/07/2022 ??Access?Location:?Right?Upper?Arm ??Created:?04/29/2021 Flow ??01/20/2023:?>1999 ??01/18/2023:?>1999 ??10/19/2022:?>2000 ANEMIA?ASSESSMENT HGB,?TSAT ??01/23/2023:?10.7,?- ??01/16/2023:?11.6,?24.0 ??01/09/2023:?11.1,?- ?? Ferritin ??01/16/2023:?648.0 ??12/12/2022:?1172.0 ??11/14/2022:?599.0 Mircera,?IVP?(mcg) ??01/27/2023:?75 ??01/13/2023:?75 ??12/30/2022:?75 BMM?ASSESSMENT Phosphorus,?Calcium ??01/16/2023:?7.3,?8.6 ??12/12/2022:?7.1,?8.3 ??11/21/2022:?-,?7.8 ?? PTH,?Intact ??01/16/2023:?167.0 ??12/12/2022:?136.0 ??11/14/2022:?161.0 NUTRITION?ASSESSMENT Albumin,?Potassium ??01/16/2023:?4.6,?5.6 ??12/12/2022:?4.2,?5.3 ??11/14/2022:?4.2,?5.1 ?? eNPCR ??01/16/2023:?0.74 ??12/12/2022:?0.83 ??11/14/2022:?1.5 Patient?data?updated?01/30/2023?at?9:18?AM Signed?By:?Alisa,?Isidoro,???on?01/30/2023?9:19:09?AM END OF DOCUMENT
--- OUTSIDE RECORDS SUMMARY | 2023-03-18 10:31 | XMS_ITS ---
Author Name Brady Patelcy Address [address] [place] [address] Phone [phone] Organization [facility] e, NA DOCUMENT DISCLAIMER Multiple document versions may exist, please be sure you review the latest version. The information in the [facility] Progress Note Document represents a providers documented clinical note containing certain health and medical information. It may not contain the complete medical history for the patient and should be independently verified. The represented time in the document is Eastern Time PROVIDER ROUNDING NOTE BASIC Patient:?ANUSHA?PAULA,?1965,?56y,?F Dialysis?Location:?[facility] Attending?Bend Sorter:?Isidoro?Alisa Service?Date:?06/27/2022 Service?Provider:?Kyara?Jorge,?REGISTERED NURSE SUPERVISOR I?met?face?to?face?with?the?patient?today. OVERVIEW The?patient?presented?with?ESRD?on?dialysis Comments:?06/27/22?-?Discussed?IDWG?and?the?importance?of&#16 0;fluid?restriction?related?to?being?able?to?get?her?to ?her?EDW?by?the?end?of?treatment.?She?is?excited&# 160;to?go?fishing,?used?this?as?a?good?reason?to?o ptimize?her?dialysis?so?she?can?be?as?active?as?sh e?wishes.?She?seems?receptive.? 06/22?tunneled?catheter?is?out.? Medications?and?labs?reviewed. LAST?HOSPITALIZATION Discharge?Diagnosis:?J12.9?Viral?pneumonia,?unspecified Admission?Date?03/28/22 Discharge?Date?1/22/23 DIALYSIS?PRESCRIPTION ??IHD?3x?Week?Start?date:?06/10/22 ??Dialyzer:?160NRe?Optiflux ??BFR:?450 ??DFR:?Manual?500 ??Potassium:?2.0 ??Sodium:?137 ??EDW:?57.5 ??Duration:?4:00 ??Calcium:?2.5 ??Bicarb:?34 ??Rx?updated?on:?06/08/2022 TREATMENT?ASSESSMENT BP?Sit?Pre ??06/24/2022:?134/70 ??06/22/2022:?137/70 ??06/20/2022:?157/70 BP?Sit?Post ??06/24/2022:?124/58 ??06/22/2022:?134/71 ??06/20/2022:?139/70 Tx?Duration ??06/24/2022:?4:15 ??06/22/2022:?4:07 ??06/20/2022:?1:26 Missed?Treatments 0?-?last?30?days 0?-?last?60?days FLUID?ASSESSMENT EDW?(kg) ??06/24/2022:?57.5 ??06/22/2022:?57.5 ??06/20/2022:?57.5 Weight?Pre?(kg) ??06/24/2022:?63.7 ??06/22/2022:?65.0 ??06/20/2022:?63.4 Weight?Post?(kg) ??06/24/2022:?59.6 ??06/22/2022:?61.5 ??06/20/2022:?62.8 PWV?(kg) ??06/24/2022:?2.1 ??06/22/2022:?4.0 ??06/20/2022:?5.3 UF?Rate?(mL/kg/hr) ??06/24/2022:?16.2 ??06/22/2022:?13.8 ??06/20/2022:?6.7 ADEQUACY?ASSESSMENT Comments:?Catheter?out?kt/v?should?improve spKt/V,?URR ??06/13/2022:?1.08,?55.0 ??05/16/2022:?1.46,?70.0 ??04/18/2022:?2.36,?86.0 ACCESS?ASSESSMENT ??Access?Type:?AVFistula ??Access?SubType:?Standard ??Access?Status:?Active?(In?Use)?-?02/07/2022 ??Access?Location:?Right?Upper?Arm ??Created:?04/29/2021 Flow ??06/27/2022:?>1999 ??06/22/2022:?>1999 ??05/18/2022:?>1999 ANEMIA?ASSESSMENT HGB,?TSAT ??06/20/2022:?9.7,?- ??06/13/2022:?10.0,?32.0 ??06/06/2022:?9.8,?- ?? Ferritin ??06/13/2022:?727.0 ??05/16/2022:?731.0 ??04/18/2022:?1485.0 Mircera,?IVP?(mcg) ??06/24/2022:?75 ??05/27/2022:?75 ??04/29/2022:?75 Iron?Sucrose?(Venofer)?(mg) ??04/11/2022:?100 ??04/08/2022:?100 ??04/06/2022:?100 BMM?ASSESSMENT Phosphorus,?Calcium ??06/13/2022:?7.1,?9.1 ??05/16/2022:?6.6,?9.3 ??04/18/2022:?1.8,?8.9 ?? PTH,?Intact ??06/13/2022:?44.0 ??05/16/2022:?32.0 ??04/18/2022:?52.0 Vitamin?D?(Calcitriol)?Oral?(mcg) ??06/22/2022:?1.0 ??06/20/2022:?1.0 ??06/17/2022:?1.0 NUTRITION?ASSESSMENT Albumin,?Potassium ??06/13/2022:?4.3,?4.6 ??05/16/2022:?4.2,?5.2 ??04/18/2022:?4.4,?4.9 ?? eNPCR ??06/13/2022:?1.03 ??05/16/2022:?0.67 ??04/18/2022:?0.78 DIAGNOSIS Chief?Complaint:?N18.6?End?stage?renal?disease Patient?data?updated?06/27/2022?at?9:35?AM Signed?By:?Jorge,?Kyara,?REGISTERED NURSE SUPERVISOR??on?06/27/2022?9:45:23?AM END OF DOCUMENT
--- OUTSIDE RECORDS SUMMARY | 2023-03-18 10:31 | XMS_ITS ---
Author Name Isidoro Cuellar Address [address] [place], [place] [id number] Phone [phone] Organization [facility] e, NA DOCUMENT DISCLAIMER Multiple document versions may exist, please be sure you review the latest version. The information in the [facility] Progress Note Document represents a providers documented clinical note containing certain health and medical information. It may not contain the complete medical history for the patient and should be independently verified. The represented time in the document is Eastern Time PROVIDER ROUNDING NOTE BASIC Patient:?ANUSHA?PAULA,?1965,?57y,?F Dialysis?Location:?[facility] Attending?Shake Feeder:?Isidoro?Alisa Service?Date:?09/28/2022 Service?Provider:?Isidoro?Alisa,? I?met?face?to?face?with?the?patient?today. OVERVIEW The?patient?presented?with?ESRD?on?dialysis Comments:?09/28?doing?better?with?COPD DIALYSIS?PRESCRIPTION ??IHD?3x?Week?Start?date:?08/10/22 ??Dialyzer:?160NRe?Optiflux ??BFR:?450 ??DFR:?Manual?500 ??Potassium:?2.0 ??Sodium:?137 ??EDW:?54.5 ??Duration:?4:00 ??Calcium:?2.5 ??Bicarb:?34 ??Rx?updated?on:?08/10/2022 TREATMENT?ASSESSMENT BP?Stand?Pre ??09/26/2022:?160/56 ??09/23/2022:?180/88 ??09/21/2022:?228/86 BP?Sit?Pre ??09/26/2022:?150/86 ??09/23/2022:?181/92 ??09/21/2022:?232/60 BP?Stand?Post ??09/26/2022:?140/57 ??09/23/2022:?198/101 ??09/21/2022:?193/74 BP?Sit?Post ??09/26/2022:?127/80 ??09/23/2022:?194/90 ??09/21/2022:?167/88 Tx?Duration ??09/26/2022:?4:08 ??09/23/2022:?3:59 ??09/21/2022:?4:08 Missed?Treatments 0?-?last?30?days 0?-?last?60?days FLUID?ASSESSMENT EDW?(kg) ??09/26/2022:?54.5 ??09/23/2022:?54.5 ??09/21/2022:?54.5 Weight?Pre?(kg) ??09/26/2022:?55.7 ??09/23/2022:?57.0 ??09/21/2022:?57.3 Weight?Post?(kg) ??09/26/2022:?54.3 ??09/23/2022:?54.7 ??09/21/2022:?54.8 PWV?(kg) ??09/26/2022:?-0.2 ??09/23/2022:?0.2 ??09/21/2022:?0.3 UF?Rate?(mL/kg/hr) ??09/26/2022:?6.2 ??09/23/2022:?10.6 ??09/21/2022:?11 ADEQUACY?ASSESSMENT spKt/V,?URR ??09/14/2022:?1.74,?75.0 ??08/15/2022:?1.76,?76.0 ??08/10/2022:?1.28,?65.0 ACCESS?ASSESSMENT ??Access?Type:?AVFistula ??Access?SubType:?Standard ??Access?Status:?Active?(In?Use)?-?02/07/2022 ??Access?Location:?Right?Upper?Arm ??Created:?04/29/2021 Flow ??08/29/2022:?1606 ??08/24/2022:?986 ??07/13/2022:?1109 ANEMIA?ASSESSMENT HGB,?TSAT ??09/19/2022:?10.9,?- ??09/14/2022:?11.1,?18.0 ??09/05/2022:?9.9,?- ?? Ferritin ??09/14/2022:?680.0 ??08/15/2022:?982.0 ??07/11/2022:?784.0 Mircera,?IVP?(mcg) ??09/16/2022:?60 ??09/02/2022:?50 ??08/19/2022:?50 Iron?Sucrose?(Venofer)?(mg) ??08/12/2022:?100 ??08/10/2022:?100 ??08/05/2022:?100 BMM?ASSESSMENT Phosphorus,?Calcium ??09/14/2022:?7.5,?8.1 ??08/15/2022:?6.2,?8.0 ??07/11/2022:?7.8,?8.5 ?? PTH,?Intact ??07/11/2022:?69.0 ??06/13/2022:?44.0 ??05/16/2022:?32.0 NUTRITION?ASSESSMENT Albumin,?Potassium ??09/14/2022:?4.4,?5.8 ??08/19/2022:?-,?6.1 ??08/15/2022:?4.3,?6.9 ?? eNPCR ??09/14/2022:?0.93 ??08/15/2022:?1.0 ??08/10/2022:?0.89 Patient?data?updated?09/28/2022?at?9:25?AM Signed?By:?Remillard,?Isidoro,???on?09/28/2022?9:26:06?AM END OF DOCUMENT
--- OUTSIDE RECORDS SUMMARY | 2023-03-18 10:31 | XMS_ITS ---
Author Name Isidoro Cuellar Address [address] [place] [id number] Phone [phone] Organization [facility] e, NA DOCUMENT DISCLAIMER Multiple document versions may exist, please be sure you review the latest version. The information in the [facility] Progress Note Document represents a providers documented clinical note containing certain health and medical information. It may not contain the complete medical history for the patient and should be independently verified. The represented time in the document is Eastern Time PROVIDER ROUNDING NOTE BASIC Patient:?ANUSHA?PAULA,?1965,?57y,?F Dialysis?Location:?[facility] Attending?Seed Production Field Supervisor:?Isidoro?Alisa Service?Date:?08/12/2022 Service?Provider:?Isidoro?Alisa,? I?met?face?to?face?with?the?patient?today. OVERVIEW The?patient?presented?with?ESRD?on?dialysis Comments:?6/2?had?3.5?weight?gain?today?6?kg?over?EDW.?Will?do?sequential DIALYSIS?PRESCRIPTION ??IHD?3x?Week?Start?date:?08/10/22 ??Dialyzer:?160NRe?Optiflux ??BFR:?450 ??DFR:?Manual?500 ??Potassium:?2.0 ??Sodium:?137 ??EDW:?54.5 ??Duration:?4:00 ??Calcium:?2.5 ??Bicarb:?34 ??Rx?updated?on:?08/10/2022 TREATMENT?ASSESSMENT BP?Stand?Pre ??08/05/2022:?172/97 BP?Sit?Pre ??08/10/2022:?161/81 ??08/05/2022:?178/107 ??08/03/2022:?203/97 BP?Stand?Post ??08/10/2022:?168/83 ??08/05/2022:?155/80 BP?Sit?Post ??08/10/2022:?168/83 ??08/05/2022:?170/86 ??08/03/2022:?108/66 Tx?Duration ??08/10/2022:?3:36 ??08/05/2022:?4:03 ??08/03/2022:?4:23 Missed?Treatments 0?-?last?30?days 0?-?last?60?days FLUID?ASSESSMENT EDW?(kg) ??08/10/2022:?55.0 ??08/05/2022:?55.0 ??08/03/2022:?57.0 Weight?Pre?(kg) ??08/10/2022:?60.1 ??08/05/2022:?57.2 ??08/03/2022:?57.5 Weight?Post?(kg) ??08/10/2022:?57.2 ??08/05/2022:?54.5 ??08/03/2022:?55.3 PWV?(kg) ??08/10/2022:?2.2 ??08/05/2022:?-0.5 ??08/03/2022:?-1.7 UF?Rate?(mL/kg/hr) ??08/10/2022:?14.1 ??08/05/2022:?12.2 ??08/03/2022:?9.1 ADEQUACY?ASSESSMENT spKt/V,?URR ??08/10/2022:?1.28,?65.0 ??07/11/2022:?3.63,?93.0 ??06/13/2022:?1.08,?55.0 ACCESS?ASSESSMENT ??Access?Type:?AVFistula ??Access?SubType:?Standard ??Access?Status:?Active?(In?Use)?-?02/07/2022 ??Access?Location:?Right?Upper?Arm ??Created:?04/29/2021 Flow ??07/13/2022:?1109 ??06/27/2022:?>2000 ??06/22/2022:?>2000 ANEMIA?ASSESSMENT HGB ??08/10/2022:?9.9 ??08/01/2022:?10.5 ??07/25/2022:?9.8 ?? Ferritin ??07/11/2022:?784.0 ??06/13/2022:?727.0 ??05/16/2022:?731.0 Mircera,?IVP?(mcg) ??08/05/2022:?50 ??07/22/2022:?50 ??06/24/2022:?75 Iron?Sucrose?(Venofer)?(mg) ??08/10/2022:?100 ??08/05/2022:?100 ??08/03/2022:?100 BMM?ASSESSMENT Phosphorus,?Calcium ??07/11/2022:?7.8,?8.5 ??06/13/2022:?7.1,?9.1 ??05/16/2022:?6.6,?9.3 ?? PTH,?Intact ??07/11/2022:?69.0 ??06/13/2022:?44.0 ??05/16/2022:?32.0 Vitamin?D?(Calcitriol)?Oral?(mcg) ??06/22/2022:?1.0 ??06/20/2022:?1.0 ??06/17/2022:?1.0 NUTRITION?ASSESSMENT Albumin,?Potassium ??07/11/2022:?4.1,?5.4 ??06/13/2022:?4.3,?4.6 ??05/16/2022:?4.2,?5.2 ?? eNPCR ??08/10/2022:?0.89 ??06/13/2022:?1.03 ??05/16/2022:?0.67 Patient?data?updated?08/12/2022?at?9:11?AM Signed?By:?Alisa,?Isidoro,???on?08/12/2022?9:13:57?AM END OF DOCUMENT
--- OUTSIDE RECORDS SUMMARY | 2023-03-18 10:31 | XMS_ITS ---
Author Name Isidoro Cuellar Address [address] [place] [address] Phone [phone] Organization [facility] e, NA DOCUMENT DISCLAIMER Multiple document versions may exist, please be sure you review the latest version. The information in the [facility] Progress Note Document represents a providers documented clinical note containing certain health and medical information. It may not contain the complete medical history for the patient and should be independently verified. The represented time in the document is Eastern Time PROVIDER ROUNDING NOTE BASIC Patient:?ANUSHA?PAULA,?1965,?57y,?F Dialysis?Location:?[facility] Attending?Coffee Sampler:?Isidoro?Alisa Service?Date:?09/05/2022 Service?Provider:?Isidoro?Alisa,? I?met?face?to?face?with?the?patient?today. OVERVIEW The?patient?presented?with?ESRD?on?dialysis Comments:?09/05?Patient?on?steroids?and?antibiotics?again.?Is ?having?increased?symptoms?as[place]and?the?air?quality?has?been?poor?due?to&#160 ;the?ongoing?Iranian?fires Medications?and?labs?reviewed. DIALYSIS?PRESCRIPTION ??IHD?3x?Week?Start?date:?08/10/22 ??Dialyzer:?160NRe?Optiflux ??BFR:?450 ??DFR:?Manual?500 ??Potassium:?2.0 ??Sodium:?137 ??EDW:?54.5 ??Duration:?4:00 ??Calcium:?2.5 ??Bicarb:?34 ??Rx?updated?on:?08/10/2022 TREATMENT?ASSESSMENT BP?Stand?Pre ??09/02/2022:?193/109 ??08/31/2022:?154/72 BP?Sit?Pre ??09/02/2022:?190/90 ??08/31/2022:?165/86 ??08/29/2022:?162/86 BP?Stand?Post ??09/02/2022:?234/120 ??08/31/2022:?176/72 BP?Sit?Post ??09/02/2022:?240/117 ??08/31/2022:?147/72 ??08/29/2022:?223/97 Tx?Duration ??09/02/2022:?4:20 ??08/31/2022:?3:51 ??08/29/2022:?4:10 Missed?Treatments 0?-?last?30?days 0?-?last?60?days FLUID?ASSESSMENT EDW?(kg) ??09/02/2022:?54.5 ??08/31/2022:?54.5 ??08/29/2022:?54.5 Weight?Pre?(kg) ??09/02/2022:?57.0 ??08/31/2022:?58.2 ??08/29/2022:?58.5 Weight?Post?(kg) ??09/02/2022:?54.3 ??08/31/2022:?54.0 ??08/29/2022:?56.0 PWV?(kg) ??09/02/2022:?-0.2 ??08/31/2022:?-0.5 ??08/29/2022:?1.5 UF?Rate?(mL/kg/hr) ??09/02/2022:?11.5 ??08/31/2022:?20.2 ??08/29/2022:?10.7 ADEQUACY?ASSESSMENT spKt/V,?URR ??08/15/2022:?1.76,?76.0 ??08/10/2022:?1.28,?65.0 ??07/11/2022:?3.63,?93.0 ACCESS?ASSESSMENT ??Access?Type:?AVFistula ??Access?SubType:?Standard ??Access?Status:?Active?(In?Use)?-?02/07/2022 ??Access?Location:?Right?Upper?Arm ??Created:?04/29/2021 Flow ??08/29/2022:?1606 ??08/24/2022:?986 ??07/13/2022:?1109 ANEMIA?ASSESSMENT HGB,?TSAT ??08/29/2022:?10.1,?- ??08/22/2022:?9.8,?- ??08/15/2022:?10.1,?25.0 ?? Ferritin ??08/15/2022:?982.0 ??07/11/2022:?784.0 ??06/13/2022:?727.0 Mircera,?IVP?(mcg) ??09/02/2022:?50 ??08/19/2022:?50 ??08/05/2022:?50 Iron?Sucrose?(Venofer)?(mg) ??08/12/2022:?100 ??08/10/2022:?100 ??08/05/2022:?100 BMM?ASSESSMENT Phosphorus,?Calcium ??08/15/2022:?6.2,?8.0 ??07/11/2022:?7.8,?8.5 ??06/13/2022:?7.1,?9.1 ?? PTH,?Intact ??07/11/2022:?69.0 ??06/13/2022:?44.0 ??05/16/2022:?32.0 Vitamin?D?(Calcitriol)?Oral?(mcg) ??06/22/2022:?1.0 ??06/20/2022:?1.0 ??06/17/2022:?1.0 NUTRITION?ASSESSMENT Albumin,?Potassium ??08/19/2022:?-,?6.1 ??08/15/2022:?4.3,?6.9 ??07/11/2022:?4.1,?5.4 ?? eNPCR ??08/15/2022:?1.0 ??08/10/2022:?0.89 ??06/13/2022:?1.03 Patient?data?updated?09/05/2022?at?9:11?AM Signed?By:?Alisa,?Isidoro,???on?09/05/2022?9:13:04?AM END OF DOCUMENT
--- OUTSIDE RECORDS SUMMARY | 2023-03-18 10:31 | XMS_ITS ---
Author Name Isidoro Cuellar Address [address] [place], [place] [address] Phone [phone] Organization [facility] e, NA DOCUMENT DISCLAIMER Multiple document versions may exist, please be sure you review the latest version. The information in the [facility] Progress Note Document represents a providers documented clinical note containing certain health and medical information. It may not contain the complete medical history for the patient and should be independently verified. The represented time in the document is Eastern Time PROVIDER ROUNDING NOTE COMPREHENSIVE Patient:?ANSUHA?PAULA,?1965,?57y,?F Dialysis?[facility] Attending?Econometrics Professor:?Isidoro?Alisa Service?Date:?10/05/2022 Service?Provider:?Isidoro?Alisa,? I?met?face?to?face?with?the?patient?today. OVERVIEW The?patient?presented?with?ESRD?on?dialysis Comments:?10/05?Doing?better?with?COPD?but?failing?overall Medications?and?labs?reviewed. LAST?HOSPITALIZATION Discharge?Diagnosis:?786.09?RESP?ABNORMALITY?NEC Admission?Date?08/07/22 Discharge?Date?08/09/22 DIALYSIS?PRESCRIPTION ??IHD?3x?Week?Start?date:?08/10/22 ??Dialyzer:?160NRe?Optiflux ??BFR:?450 ??DFR:?Manual?500 ??Potassium:?2.0 ??Sodium:?137 ??EDW:?54.5 ??Duration:?4:00 ??Calcium:?2.5 ??Bicarb:?34 ??Rx?updated?on:?08/10/2022 TREATMENT?ASSESSMENT Blood?pressure?elevated.?Medications?adjusted.? BP?Stand?Pre ??10/03/2022:?210/84 ??09/30/2022:?154/84 ??09/28/2022:?159/91 BP?Sit?Pre ??10/03/2022:?177/75 ??09/30/2022:?139/77 ??09/28/2022:?164/86 BP?Stand?Post ??10/03/2022:?163/65 ??09/30/2022:?187/87 ??09/28/2022:?163/87 BP?Sit?Post ??10/03/2022:?179/68 ??09/30/2022:?163/78 ??09/28/2022:?180/90 Tx?Duration ??10/03/2022:?4:08 ??09/30/2022:?3:56 ??09/28/2022:?4:14 Missed?Treatments 0?-?last?30?days 0?-?last?60?days FLUID?ASSESSMENT Fluid?status?acceptable.?Interdialytic?weight?gain?acceptable.?No ?changes?indicated.? EDW?(kg) ??10/03/2022:?54.5 ??09/30/2022:?54.5 ??09/28/2022:?54.5 Weight?Pre?(kg) ??10/03/2022:?59.2 ??09/30/2022:?56.6 ??09/28/2022:?57.0 Weight?Post?(kg) ??10/03/2022:?56.2 ??09/30/2022:?54.6 ??09/28/2022:?55.1 PWV?(kg) ??10/03/2022:?1.7 ??09/30/2022:?0.1 ??09/28/2022:?0.6 UF?Rate?(mL/kg/hr) ??10/03/2022:?12.9 ??09/30/2022:?9.3 ??09/28/2022:?8.1 ADEQUACY?ASSESSMENT Adequacy?target?met.?Prescription?compliance?acceptable.? spKt/V,?URR ??09/14/2022:?1.74,?75.0 ??08/15/2022:?1.76,?76.0 ??08/10/2022:?1.28,?65.0 ACCESS?ASSESSMENT ??Access?Type:?AVFistula ??Access?SubType:?Standard ??Access?Status:?Active?(In?Use)?-?02/07/2022 ??Access?Location:?Right?Upper?Arm ??Created:?04/29/2021 Flow ??08/29/2022:?1606 ??08/24/2022:?986 ??07/13/2022:?1109 Vascular?access?reviewed.?Current?access?is?permanent?and?functioning?well. ANEMIA?ASSESSMENT HGB?at?goal.?Iron?parameters?not?acceptable.?Medications?adjusted.? HGB,?TSAT ??09/26/2022:?11.8,?- ??09/19/2022:?10.9,?- ??09/14/2022:?11.1,?18.0 ?? Ferritin ??09/14/2022:?680.0 ??08/15/2022:?982.0 ??07/11/2022:?784.0 Mircera,?IVP?(mcg) ??09/16/2022:?60 ??09/02/2022:?50 ??08/19/2022:?50 Iron?Sucrose?(Venofer)?(mg) ??08/12/2022:?100 ??08/10/2022:?100 ??08/05/2022:?100 BMM?ASSESSMENT PTH?low.?Calcium?controlled.?Phosphorus?elevated.?Diet?reviewed&# 160;with?patient.? Phosphorus,?Calcium ??09/14/2022:?7.5,?8.1 ??08/15/2022:?6.2,?8.0 ??07/11/2022:?7.8,?8.5 ?? PTH,?Intact ??07/11/2022:?69.0 ??06/13/2022:?44.0 ??05/16/2022:?32.0 NUTRITION?ASSESSMENT Potassium?above?goal.?Albumin?controlled.?Diet?reviewed?with patient.? Albumin,?Potassium ??09/14/2022:?4.4,?5.8 ??08/19/2022:?-,?6.1 ??08/15/2022:?4.3,?6.9 ?? eNPCR ??09/14/2022:?0.93 ??08/15/2022:?1.0 ??08/10/2022:?0.89 PHYSICAL?EXAM Exam?Performed.?Lungs?-?With?wheezing.?CV?-?RRR. DIAGNOSIS Chief?Complaint:?N18.6?End?stage?renal?disease Patient?data?updated?10/05/2022?at?9:56?AM Signed?By:?Alisa,?Isidoro,???on?10/05/2022?9:59:07?AM END OF DOCUMENT
--- OUTSIDE RECORDS SUMMARY | 2023-03-18 10:31 | XMS_ITS ---
Author Name Isidoro Cuellar Address [address] [place] [address] Phone [phone] Organization [facility], NA DOCUMENT DISCLAIMER Multiple document versions may exist, please be sure you review the latest version. The information in the [facility] Progress Note Document represents a providers documented clinical note containing certain health and medical information. It may not contain the complete medical history for the patient and should be independently verified. The represented time in the document is Eastern Time PROVIDER ROUNDING NOTE BASIC Revised?By:?Isidoro?Alisa? Revised?Date:?04/13/2022?9:22:09?AM Revised?Reason:?Wrong?date Patient:?ANUSHA?PAULA,?1965,?56y,?F Dialysis?Location:?[facility] Attending?Residential Caregiver:?Isidoro?Alisa Service?Date:?04/13/2022 Service?Provider:?Isidoro?Alisa,? I?met?face?to?face?with?the?patient?today. OVERVIEW The?patient?presented?with?ESRD?on?dialysis Comments:?04/13?Patient?feeling?poorly/mod?SOB/anorexia/cough.?Completed ?12?run/only?had?1?kg?gain.?Ambulance?called?for?transport?to?local?ED No?rales?on?exam/distant?BS?with?wheezes/no?abd?guarding/liver?tender. 04/06?hospitalized?again?for???Pneumonia?at?[place]/?her? 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 DIALYSIS?PRESCRIPTION ??IHD?3x?Week?Start?date:?04/06/22 ??Dialyzer:?160NRe?Optiflux ??BFR:?450 ??DFR:?Manual?500 ??Potassium:?2.0 ??Sodium:?137 ??EDW:?57 ??Duration:?4:00 ??Calcium:?2.5 ??Bicarb:?34 ??Rx?updated?on:?04/04/2022 TREATMENT?ASSESSMENT BP?Sit?Pre ??04/13/2022:?141/71 ??04/11/2022:?163/83 ??04/08/2022:?169/86 BP?Stand?Post ??04/11/2022:?190/85 ??04/08/2022:?162/79 BP?Sit?Post ??04/13/2022:?141/71 ??04/11/2022:?186/80 ??04/08/2022:?160/72 Tx?Duration ??04/13/2022:?2:13 ??04/11/2022:?4:00 ??04/08/2022:?3:59 Missed?Treatments 0?-?last?30?days 0?-?last?60?days FLUID?ASSESSMENT EDW?(kg) ??04/13/2022:?57.0 ??04/11/2022:?57.0 ??04/08/2022:?57.0 Weight?Pre?(kg) ??04/13/2022:?56.7 ??04/11/2022:?58.2 ??04/08/2022:?58.3 Weight?Post?(kg) ??04/13/2022:?56.0 ??04/11/2022:?55.9 ??04/08/2022:?56.7 PWV?(kg) ??04/13/2022:?-1.0 ??04/11/2022:?-1.1 ??04/08/2022:?-0.3 UF?Rate?(mL/kg/hr) ??04/13/2022:?5.6 ??04/11/2022:?10.3 ??04/08/2022:?7.1 ADEQUACY?ASSESSMENT spKt/V,?URR ??03/14/2022:?1.51,?71.0 ??02/21/2022:?1.8,?78.0 ??01/24/2022:?1.7,?76.0 ACCESS?ASSESSMENT ??Access?Type:?AVFistula ??Access?SubType:?Standard ??Access?Status:?Active?(In?Use)?-?02/07/2022 ??Access?Location:?Right?Upper?Arm ??Created:?04/29/2021 Flow ??03/23/2022:?1761 ??03/18/2022:?1026 ??03/16/2022:?1387 ANEMIA?ASSESSMENT HGB ??04/11/2022:?9.5 ??04/04/2022:?11.4 ??03/21/2022:?10.9 ?? Ferritin ??03/14/2022:?804.0 ??02/21/2022:?712.0 ??01/24/2022:?749.0 Mircera,?IVP?(mcg) ??03/25/2022:?75 ??02/11/2022:?100 ??01/28/2022:?100 Iron?Sucrose?(Venofer)?(mg) ??04/11/2022:?100 ??04/06/2022:?100 ??04/04/2022:?100 BMM?ASSESSMENT Phosphorus,?Calcium ??03/14/2022:?9.0,?8.2 ??02/21/2022:?7.3,?8.1 ??01/24/2022:?6.4,?9.1 ?? PTH,?Intact ??03/14/2022:?75.0 ??02/21/2022:?39.0 ??01/24/2022:?29.0 Vitamin?D?(Calcitriol)?Oral?(mcg) ??04/11/2022:?1.0 ??04/08/2022:?1.0 ??04/06/2022:?1.0 NUTRITION?ASSESSMENT Albumin,?Potassium ??03/18/2022:?-,?5.3 ??03/14/2022:?4.1,?6.2 ??02/21/2022:?4.0,?4.7 ?? eNPCR ??03/14/2022:?1.03 ??02/21/2022:?0.63 ??01/24/2022:?0.73 Patient?data?updated?04/13/2022?at?9:18?AM Signed?By:?Alisa,?Isidoro,???on?04/13/2022?9:22:09?AM END OF DOCUMENT
--- OUTSIDE RECORDS SUMMARY | 2023-03-18 10:31 | XMS_ITS ---
Author Name Brady Patelcy Address [address] [place] [address] Phone [phone] Organization [facility] e, NA DOCUMENT DISCLAIMER Multiple document versions may exist, please be sure you review the latest version. The information in the [facility] Progress Note Document represents a providers documented clinical note containing certain health and medical information. It may not contain the complete medical history for the patient and should be independently verified. The represented time in the document is Eastern Time PROVIDER ROUNDING NOTE BASIC Patient:?ANUSHA?PAULA,?1965,?57y,?F Dialysis?Location:?[facility] Attending?Fleet Maintenance Foreman:?Isidoro?Alisa Service?Date:?12/19/2022 Service?Provider:?Kyara?Jorge,?DOG FOOD SHREDDER OPERATOR I?met?face?to?face?with?the?patient?today. OVERVIEW The?patient?presented?with?ESRD?on?dialysis Comments:?12/19/22?-?Continues?to?feel?better?since?hospitali zation.?No?shortness?of?breath?or?angioedema.?Large?IDWG&#16 0;today,?discussed?with?patient.?No?complaints?or?acute?issues.? 12/07?Had?been?intubated?due?to?angioedema/no?meds?implicated /she?thinks?it?was?a?spider?bite.?Now?doing?better Medications?and?labs?reviewed. LAST?HOSPITALIZATION Discharge?Diagnosis:?R60.9?Edema,?unspecified Admission?Date?11/28/22 Discharge?Date?12/01/22 DIALYSIS?PRESCRIPTION ??IHD?3x?Week?Start?date:?08/10/22 ??Dialyzer:?160NRe?Optiflux ??BFR:?450 ??DFR:?Manual?500 ??Potassium:?2.0 ??Sodium:?137 ??EDW:?54.5 ??Duration:?4:00 ??Calcium:?2.5 ??Bicarb:?34 ??Rx?updated?on:?08/10/2022 TREATMENT?ASSESSMENT BP?Stand?Pre ??12/16/2022:?164/85 ??12/14/2022:?141/59 ??12/12/2022:?168/85 BP?Sit?Pre ??12/16/2022:?172/79 ??12/14/2022:?143/75 ??12/12/2022:?184/93 BP?Stand?Post ??12/16/2022:?189/109 ??12/14/2022:?132/63 ??12/12/2022:?148/67 BP?Sit?Post ??12/16/2022:?188/91 ??12/14/2022:?141/62 ??12/12/2022:?135/57 Tx?Duration ??12/16/2022:?3:59 ??12/14/2022:?4:05 ??12/12/2022:?3:58 Missed?Treatments 0?-?last?30?days 0?-?last?60?days FLUID?ASSESSMENT EDW?(kg) ??12/16/2022:?54.5 ??12/14/2022:?54.5 ??12/12/2022:?54.5 Weight?Pre?(kg) ??12/16/2022:?58.6 ??12/14/2022:?58.9 ??12/12/2022:?59.5 Weight?Post?(kg) ??12/16/2022:?54.5 ??12/14/2022:?56.4 ??12/12/2022:?56.1 PWV?(kg) ??12/16/2022:?0.0 ??12/14/2022:?1.9 ??12/12/2022:?1.6 UF?Rate?(mL/kg/hr) ??12/16/2022:?18.9 ??12/14/2022:?10.9 ??12/12/2022:?15.3 ADEQUACY?ASSESSMENT spKt/V,?URR ??12/12/2022:?1.51,?70.0 ??11/14/2022:?2.36,?85.0 ??10/17/2022:?1.96,?80.0 ACCESS?ASSESSMENT ??Access?Type:?AVFistula ??Access?SubType:?Standard ??Access?Status:?Active?(In?Use)?-?02/07/2022 ??Access?Location:?Right?Upper?Arm ??Created:?04/29/2021 Flow ??10/19/2022:?>2000 ??08/29/2022:?1606 ??08/24/2022:?986 ANEMIA?ASSESSMENT HGB,?TSAT ??12/12/2022:?9.2,?25.0 ??12/05/2022:?10.0,?- ??11/21/2022:?10.3,?- ?? Ferritin ??12/12/2022:?1172.0 ??11/14/2022:?599.0 ??10/17/2022:?643.0 Mircera,?IVP?(mcg) ??12/16/2022:?30 ??12/02/2022:?30 ??11/18/2022:?30 BMM?ASSESSMENT Phosphorus,?Calcium ??12/12/2022:?7.1,?8.3 ??11/21/2022:?-,?7.8 ??11/14/2022:?6.1,?7.8 ?? PTH,?Intact ??12/12/2022:?136.0 ??11/14/2022:?161.0 ??07/11/2022:?69.0 NUTRITION?ASSESSMENT Albumin,?Potassium ??12/12/2022:?4.2,?5.3 ??11/14/2022:?4.2,?5.1 ??10/24/2022:?-,?4.7 ?? eNPCR ??12/12/2022:?0.83 ??11/14/2022:?1.5 ??10/17/2022:?0.89 DIAGNOSIS Chief?Complaint:?N18.6?End?stage?renal?disease Patient?data?updated?12/19/2022?at?9:47?AM Signed?By:?Jorge,?Kyara,?DOG FOOD SHREDDER OPERATOR??on?12/19/2022?9:49:15?AM END OF DOCUMENT
--- OUTSIDE RECORDS SUMMARY | 2023-03-18 10:31 | XMS_ITS ---
Author Name Brady Patelcy Address [address] [place] [address] Phone [phone] Organization [facility] e, NA DOCUMENT DISCLAIMER Multiple document versions may exist, please be sure you review the latest version. The information in the [facility] Progress Note Document represents a providers documented clinical note containing certain health and medical information. It may not contain the complete medical history for the patient and should be independently verified. The represented time in the document is Eastern Time PROVIDER ROUNDING NOTE BASIC Patient:?ANUSHA?PAULA,?1965,?57y,?F Dialysis?Location:?[facility] Attending?Physical Medicine Teacher:?Isidoro?Alisa Service?Date:?02/03/2023 Service?Provider:?Kyara?Jorge,?FUNERAL COUNSELOR I?met?face?to?face?with?the?patient?today. OVERVIEW The?patient?presented?with?ESRD?on?dialysis Comments:?02/03/23?-?States?she?went?to?ED?after?last&# 160;dialysis.?She?is?now?on?abx?and?prednisone?for?COPD?exacerbation.? 01/30?Patient?with?significant?fluid?overload.?Reviewed?fluid&#16 0;intake?with?her/access?working?well. Medications?and?labs?reviewed. LAST?HOSPITALIZATION Discharge?Diagnosis:?R60.9?Edema,?unspecified Admission?Date?11/28/22 Discharge?Date?12/01/22 DIALYSIS?PRESCRIPTION ??IHD?3x?Week?Start?date:?01/11/23 ??Dialyzer:?160NRe?Optiflux ??BFR:?450 ??DFR:?Manual?500 ??Potassium:?2.0 ??Sodium:?137 ??EDW:?54.5 ??Duration:?4:00 ??Calcium:?2.5 ??Bicarb:?34 ??Rx?updated?on:?01/09/2023 TREATMENT?ASSESSMENT BP?Stand?Pre ??02/01/2023:?150/44 ??01/30/2023:?196/77 ??01/27/2023:?175/105 BP?Sit?Pre ??02/01/2023:?143/76 ??01/30/2023:?175/93 ??01/27/2023:?176/103 BP?Stand?Post ??02/01/2023:?188/92 ??01/30/2023:?189/94 ??01/27/2023:?171/96 BP?Sit?Post ??02/01/2023:?180/80 ??01/30/2023:?191/94 ??01/27/2023:?176/83 Tx?Duration ??02/01/2023:?4:08 ??01/30/2023:?4:04 ??01/27/2023:?4:04 Missed?Treatments 0?-?last?30?days 0?-?last?60?days FLUID?ASSESSMENT EDW?(kg) ??02/01/2023:?54.5 ??01/30/2023:?54.5 ??01/27/2023:?54.5 Weight?Pre?(kg) ??02/01/2023:?60.8 ??01/30/2023:?61.6 ??01/27/2023:?61.2 Weight?Post?(kg) ??02/01/2023:?56.8 ??01/30/2023:?58.5 ??01/27/2023:?56.2 PWV?(kg) ??02/01/2023:?2.3 ??01/30/2023:?4.0 ??01/27/2023:?1.7 UF?Rate?(mL/kg/hr) ??02/01/2023:?17 ??01/30/2023:?13 ??01/27/2023:?21.9 ADEQUACY?ASSESSMENT spKt/V,?URR ??01/16/2023:?1.78,?78.0 ??12/12/2022:?1.51,?70.0 ??11/14/2022:?2.36,?85.0 ACCESS?ASSESSMENT ??Access?Type:?AVFistula ??Access?SubType:?Standard ??Access?Status:?Active?(In?Use)?-?02/07/2022 ??Access?Location:?Right?Upper?Arm ??Created:?04/29/2021 Flow ??01/20/2023:?>1999 ??01/18/2023:?>1999 ??10/19/2022:?>1999 ANEMIA?ASSESSMENT HGB,?TSAT ??01/30/2023:?11.9,?- ??01/23/2023:?10.7,?- ??01/16/2023:?11.6,?24.0 ?? Ferritin ??01/16/2023:?648.0 ??12/12/2022:?1172.0 ??11/14/2022:?599.0 Mircera,?IVP?(mcg) ??01/27/2023:?75 ??01/13/2023:?75 ??12/30/2022:?75 BMM?ASSESSMENT Phosphorus,?Calcium ??01/16/2023:?7.3,?8.6 ??12/12/2022:?7.1,?8.3 ??11/21/2022:?-,?7.8 ?? PTH,?Intact ??01/16/2023:?167.0 ??12/12/2022:?136.0 ??11/14/2022:?161.0 NUTRITION?ASSESSMENT Albumin,?Potassium ??01/16/2023:?4.6,?5.6 ??12/12/2022:?4.2,?5.3 ??11/14/2022:?4.2,?5.1 ?? eNPCR ??01/16/2023:?0.74 ??12/12/2022:?0.83 ??11/14/2022:?1.5 DIAGNOSIS Chief?Complaint:?N18.6?End?stage?renal?disease Patient?data?updated?02/03/2023?at?9:47?AM Signed?By:?Jorge,?Kyara,?FUNERAL COUNSELOR??on?02/03/2023?9:48:33?AM END OF DOCUMENT
--- OUTSIDE RECORDS SUMMARY | 2023-03-18 10:31 | XMS_ITS ---
Author Name Isidoro Cuellar Address [address] [place], [place] [address] Phone [phone] Organization [facility] e, NA DOCUMENT DISCLAIMER Multiple document versions may exist, please be sure you review the latest version. The information in the [facility] Progress Note Document represents a providers documented clinical note containing certain health and medical information. It may not contain the complete medical history for the patient and should be independently verified. The represented time in the document is Eastern Time PROVIDER ROUNDING NOTE BASIC Patient:?ANUSHA?PAULA,?1965,?56y,?F Dialysis?Location:?[email or web address] Attending?Acute Care Physical Therapist:?Isidoro?Alisa Service?Date:?07/04/2022 Service?Provider:?Isidoro?Alisa,? I?met?face?to?face?with?the?patient?today. OVERVIEW The?patient?presented?with?ESRD?on?dialysis Comments:?Having?some?difficulty?breathing.?Forgot?inhaler. DIALYSIS?PRESCRIPTION ??IHD?3x?Week?Start?date:?06/10/22 ??Dialyzer:?160NRe?Optiflux ??BFR:?450 ??DFR:?Manual?500 ??Potassium:?2.0 ??Sodium:?137 ??EDW:?57.5 ??Duration:?4:00 ??Calcium:?2.5 ??Bicarb:?34 ??Rx?updated?on:?06/08/2022 TREATMENT?ASSESSMENT BP?Sit?Pre ??07/01/2022:?151/77 ??06/29/2022:?104/51 ??06/27/2022:?130/72 BP?Stand?Post ??07/01/2022:?137/64 ??06/29/2022:?103/44 ??06/27/2022:?151/72 BP?Sit?Post ??07/01/2022:?129/55 ??06/29/2022:?97/44 ??06/27/2022:?132/68 Tx?Duration ??07/01/2022:?3:54 ??06/29/2022:?4:18 ??06/27/2022:?5:01 Missed?Treatments 0?-?last?30?days 0?-?last?60?days FLUID?ASSESSMENT EDW?(kg) ??07/01/2022:?57.5 ??06/29/2022:?57.5 ??06/27/2022:?57.5 Weight?Pre?(kg) ??07/01/2022:?61.3 ??06/29/2022:?62.7 ??06/27/2022:?62.6 Weight?Post?(kg) ??07/01/2022:?58.3 ??06/29/2022:?60.3 ??06/27/2022:?58.7 PWV?(kg) ??07/01/2022:?0.8 ??06/29/2022:?2.8 ??06/27/2022:?1.2 UF?Rate?(mL/kg/hr) ??07/01/2022:?13.2 ??06/29/2022:?9.3 ??06/27/2022:?13.2 ADEQUACY?ASSESSMENT spKt/V,?URR ??06/13/2022:?1.08,?55.0 ??05/16/2022:?1.46,?70.0 ??04/18/2022:?2.36,?86.0 ACCESS?ASSESSMENT ??Access?Type:?AVFistula ??Access?SubType:?Standard ??Access?Status:?Active?(In?Use)?-?02/07/2022 ??Access?Location:?Right?Upper?Arm ??Created:?04/29/2021 Flow ??06/27/2022:?>1999 ??06/22/2022:?>1999 ??05/18/2022:?>2000 ANEMIA?ASSESSMENT HGB,?TSAT ??06/27/2022:?9.1,?- ??06/20/2022:?9.7,?- ??06/13/2022:?10.0,?32.0 ?? Ferritin ??06/13/2022:?727.0 ??05/16/2022:?731.0 ??04/18/2022:?1485.0 Mircera,?IVP?(mcg) ??06/24/2022:?75 ??05/27/2022:?75 ??04/29/2022:?75 Iron?Sucrose?(Venofer)?(mg) ??04/11/2022:?100 ??04/08/2022:?100 ??04/06/2022:?100 BMM?ASSESSMENT Phosphorus,?Calcium ??06/13/2022:?7.1,?9.1 ??05/16/2022:?6.6,?9.3 ??04/18/2022:?1.8,?8.9 ?? PTH,?Intact ??06/13/2022:?44.0 ??05/16/2022:?32.0 ??04/18/2022:?52.0 Vitamin?D?(Calcitriol)?Oral?(mcg) ??06/22/2022:?1.0 ??06/20/2022:?1.0 ??06/17/2022:?1.0 NUTRITION?ASSESSMENT Albumin,?Potassium ??06/13/2022:?4.3,?4.6 ??05/16/2022:?4.2,?5.2 ??04/18/2022:?4.4,?4.9 ?? eNPCR ??06/13/2022:?1.03 ??05/16/2022:?0.67 ??04/18/2022:?0.78 Patient?data?updated?07/04/2022?at?8:50?AM Signed?By:?Alisa,?Isidoro,???on?07/04/2022?8:51:33?AM END OF DOCUMENT
--- OUTSIDE RECORDS SUMMARY | 2023-03-18 10:31 | XMS_ITS ---
Author Name Brady Patelcy Address [address] [place] [address] Phone [phone] Organization [facility] e, NA DOCUMENT DISCLAIMER Multiple document versions may exist, please be sure you review the latest version. The information in the [facility] Progress Note Document represents a providers documented clinical note containing certain health and medical information. It may not contain the complete medical history for the patient and should be independently verified. The represented time in the document is Eastern Time PROVIDER ROUNDING NOTE BASIC Patient:?ANUSHA?PAULA,?1965,?57y,?F Dialysis?Location:?[facility] Attending?Wood Coater:?Isidoro?Alisa Service?Date:?07/20/2022 Service?Provider:?Kyara?Jorge,?A P MECHANIC I?met?face?to?face?with?the?patient?today. OVERVIEW The?patient?presented?with?ESRD?on?dialysis Comments:?07/20/22?-?Continues?with?large?IDWG.?Order?added&# 160;to?special?attention:?if?IDWG?is?>?than?3.5kg,?m ay?increase?dialysis?time?to?5?hours. Will?send?script?for?sevelamer?800mg,?1?tab,?3?times&#1 60;per?day?with[facility]Stable?treatment?today.? Having?some?difficulty?breathing.?Forgot?inhaler.? Medications?and?labs?reviewed. 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07/13/2022:?140/67 Tx?Duration ??07/18/2022:?4:05 ??07/15/2022:?4:08 ??07/13/2022:?4:12 Missed?Treatments 0?-?last?30?days 0?-?last?60?days FLUID?ASSESSMENT EDW?(kg) ??07/18/2022:?57.5 ??07/15/2022:?57.5 ??07/13/2022:?57.5 Weight?Pre?(kg) ??07/18/2022:?62.3 ??07/15/2022:?61.5 ??07/13/2022:?61.5 Weight?Post?(kg) ??07/18/2022:?57.5 ??07/15/2022:?59.0 ??07/13/2022:?58.7 PWV?(kg) ??07/18/2022:?0.0 ??07/15/2022:?1.5 ??07/13/2022:?1.2 UF?Rate?(mL/kg/hr) ??07/18/2022:?20.4 ??07/15/2022:?10.3 ??07/13/2022:?11.4 ADEQUACY?ASSESSMENT spKt/V,?URR ??07/11/2022:?3.63,?93.0 ??06/13/2022:?1.08,?55.0 ??05/16/2022:?1.46,?70.0 ACCESS?ASSESSMENT ??Access?Type:?AVFistula ??Access?SubType:?Standard ??Access?Status:?Active?(In?Use)?-?02/07/2022 ??Access?Location:?Right?Upper?Arm ??Created:?04/29/2021 Flow ??07/13/2022:?1109 ??06/27/2022:?>2000 ??06/22/2022:?>2000 ANEMIA?ASSESSMENT HGB,?TSAT ??07/18/2022:?9.3,?- ??07/11/2022:?10.1,?19.0 ??07/04/2022:?10.0,?- ?? Ferritin ??07/11/2022:?784.0 ??06/13/2022:?727.0 ??05/16/2022:?731.0 Mircera,?IVP?(mcg) ??06/24/2022:?75 ??05/27/2022:?75 ??04/29/2022:?75 BMM?ASSESSMENT Phosphorus,?Calcium ??07/11/2022:?7.8,?8.5 ??06/13/2022:?7.1,?9.1 ??05/16/2022:?6.6,?9.3 ?? PTH,?Intact ??07/11/2022:?69.0 ??06/13/2022:?44.0 ??05/16/2022:?32.0 Vitamin?D?(Calcitriol)?Oral?(mcg) ??06/22/2022:?1.0 ??06/20/2022:?1.0 ??06/17/2022:?1.0 NUTRITION?ASSESSMENT Albumin,?Potassium ??07/11/2022:?4.1,?5.4 ??06/13/2022:?4.3,?4.6 ??05/16/2022:?4.2,?5.2 ?? eNPCR ??06/13/2022:?1.03 ??05/16/2022:?0.67 ??04/18/2022:?0.78 DIAGNOSIS Chief?Complaint:?N18.6?End?stage?renal?disease Patient?data?updated?07/20/2022?at?10:24?AM Signed?By:?Jorge,?Kyara,?A P MECHANIC??on?07/20/2022?11:01:30 AM END OF DOCUMENT
--- OUTSIDE RECORDS SUMMARY | 2023-03-18 10:31 | XMS_ITS ---
Author Name Isidoro Cuellar Address [address] [place], [place] [address] Phone [phone] Organization [facility] e, NA DOCUMENT DISCLAIMER Multiple document versions may exist, please be sure you review the latest version. The information in the [facility] Progress Note Document represents a providers documented clinical note containing certain health and medical information. It may not contain the complete medical history for the patient and should be independently verified. The represented time in the document is Eastern Time PROVIDER ROUNDING NOTE COMPREHENSIVE Patient:?ANUSHA?PAULA,?1965,?57y,?F Dialysis?Location:?[facility] Attending?Reproduction Order Processor:?Isidoro?Alisa Service?Date:?11/07/2022 Service?Provider:?Isidoro?Alisa,? I?met?face?to?face?with?the?patient?today. OVERVIEW The?patient?presented?with?ESRD?on?dialysis Comments:?12/08?HAVING?ANOTHER?COPD?EXACERBATION/GOING?TO?ER?POST?TREATMENT Medications?and?labs?reviewed. LAST?HOSPITALIZATION Discharge?Diagnosis:?786.09?RESP?ABNORMALITY?NEC Admission?Date?08/07/22 Discharge?Date?08/09/22 DIALYSIS?PRESCRIPTION ??IHD?3x?Week?Start?date:?08/10/22 ??Dialyzer:?160NRe?Optiflux ??BFR:?450 ??DFR:?Manual?500 ??Potassium:?2.0 ??Sodium:?137 ??EDW:?54.5 ??Duration:?4:00 ??Calcium:?2.5 ??Bicarb:?34 ??Rx?updated?on:?08/10/2022 TREATMENT?ASSESSMENT Blood?pressure?controlled.?No?changes?indicated.? BP?Stand?Pre ??11/04/2022:?182/75 BP?Sit?Pre ??11/04/2022:?176/85 ??11/02/2022:?179/86 ??10/31/2022:?148/75 BP?Stand?Post ??11/04/2022:?156/77 BP?Sit?Post ??11/04/2022:?146/67 ??11/02/2022:?137/80 ??10/31/2022:?162/68 Tx?Duration ??11/04/2022:?3:59 ??11/02/2022:?4:11 ??10/31/2022:?3:59 Missed?Treatments 0?-?last?30?days 0?-?last?60?days FLUID?ASSESSMENT Fluid?status?acceptable.?Interdialytic?weight?gain?acceptable.?No ?changes?indicated.? EDW?(kg) ??11/04/2022:?54.5 ??11/02/2022:?54.5 ??10/31/2022:?54.5 Weight?Pre?(kg) ??11/04/2022:?57.0 ??11/02/2022:?58.3 ??10/31/2022:?56.2 Weight?Post?(kg) ??11/04/2022:?54.5 ??11/02/2022:?54.9 ??10/31/2022:?54.6 PWV?(kg) ??11/04/2022:?0.0 ??11/02/2022:?0.4 ??10/31/2022:?0.1 UF?Rate?(mL/kg/hr) ??11/04/2022:?11.5 ??11/02/2022:?14.8 ??10/31/2022:?7.4 ADEQUACY?ASSESSMENT Adequacy?target?met.?Prescription?compliance?acceptable.?No?changes?indicated.? spKt/V,?URR ??10/17/2022:?1.96,?80.0 ??09/14/2022:?1.74,?75.0 ??08/15/2022:?1.76,?76.0 ACCESS?ASSESSMENT ??Access?Type:?AVFistula ??Access?SubType:?Standard ??Access?Status:?Active?(In?Use)?-?02/07/2022 ??Access?Location:?Right?Upper?Arm ??Created:?04/29/2021 Flow ??10/19/2022:?>2000 ??08/29/2022:?1606 ??08/24/2022:?986 Vascular?access?reviewed.?Current?access?is?permanent?and?functioning?well. ANEMIA?ASSESSMENT HGB?at?goal.?Iron?parameters?acceptable.?FRANCISCO?dose?adequate.& #160;No?changes?indicated.? HGB,?TSAT ??10/31/2022:?10.9,?- ??10/24/2022:?11.6,?- ??10/17/2022:?11.0,?43.0 ?? Ferritin ??10/17/2022:?643.0 ??09/14/2022:?680.0 ??08/15/2022:?982.0 Mircera,?IVP?(mcg) ??11/04/2022:?30 ??09/16/2022:?60 ??09/02/2022:?50 Iron?Sucrose?(Venofer)?(mg) ??08/12/2022:?100 ??08/10/2022:?100 BMM?ASSESSMENT PTH?low.?Calcium?controlled.?Phosphorus?elevated.?BMM?meds?a dherence?acceptable.?No?changes?indicated.? Phosphorus,?Calcium ??10/17/2022:?6.9,?9.0 ??10/03/2022:?6.8,?- ??09/14/2022:?7.5,?8.1 ?? PTH,?Intact ??07/11/2022:?69.0 ??06/13/2022:?44.0 ??05/16/2022:?32.0 NUTRITION?ASSESSMENT Potassium?controlled.?Albumin?controlled.?No?changes?indicated.? Albumin,?Potassium ??10/24/2022:?-,?4.7 ??10/17/2022:?4.5,?6.1 ??09/14/2022:?4.4,?5.8 ?? eNPCR ??10/17/2022:?0.89 ??09/14/2022:?0.93 ??08/15/2022:?1.0 PHYSICAL?EXAM Exam?Performed.?Lungs?-?With?wheezing.?CV?-?Blood?pressure?noted. DIAGNOSIS Chief?Complaint:?N18.6?End?stage?renal?disease Patient?data?updated?11/07/2022?at?10:04?AM Signed?By:?Alisa,?Isidoro,???on?11/07/2022?10:07:53 AM END OF DOCUMENT
--- OUTSIDE RECORDS SUMMARY | 2023-03-18 10:31 | XMS_ITS ---
Author Name Brady Patelcy Address [address] [place] [address] Phone [phone] Organization [facility] e, NA DOCUMENT DISCLAIMER Multiple document versions may exist, please be sure you review the latest version. The information in the [facility] Progress Note Document represents a providers documented clinical note containing certain health and medical information. It may not contain the complete medical history for the patient and should be independently verified. The represented time in the document is Eastern Time PROVIDER ROUNDING NOTE BASIC Patient:?ANUSHA?PAULA,?1965,?56y,?F Dialysis?Location:?[facility] Attending?Radiation Oncology Nurse:?Isidoro?Alisa Service?Date:?06/15/2022 Service?Provider:?Kyara?Jorge,?[employer] I?met?face?to?face?with?the?patient?today. OVERVIEW The?patient?presented?with?ESRD?on?dialysis Comments:??-?Pt?with?recent?high?IDWG,?she?says& #160;is?due?to?stressors?at?home,?causing?increased?sob.&#16 0;Will?run?extra?hour?of?dialysis?today,?no?sequential? since?this?was?done?last?treatment.?Scheduled?to?have?H D?catheter?removed?tomorrow.? 06/13?patient?with?high?fluid?gain,?over?7?L.?Will?d o?sequential?ultrafiltration?dialysis?also?needed?temporary?refill?on?minoxidil Medications?and?labs?reviewed. LAST?HOSPITALIZATION Discharge?Diagnosis:?J12.9?Viral?pneumonia,?unspecified Admission?Date?03/28/22 Discharge?Date?04/03/22 DIALYSIS?PRESCRIPTION ??IHD?3x?Week?Start?date:?06/10/22 ??Dialyzer:?160NRe?Optiflux ??BFR:?450 ??DFR:?Manual?500 ??Potassium:?2.0 ??Sodium:?137 ??EDW:?57.5 ??Duration:?4:00 ??Calcium:?2.5 ??Bicarb:?34 ??Rx?updated?on:?06/08/2022 TREATMENT?ASSESSMENT BP?Sit?Pre ??06/13/2022:?142/74 ??06/10/2022:?192/97 ??06/08/2022:?196/107 BP?Stand?Post ??06/10/2022:?191/98 ??06/08/2022:?150/70 BP?Sit?Post ??06/13/2022:?140/72 ??06/10/2022:?181/94 ??06/08/2022:?132/71 Tx?Duration ??06/13/2022:?3:53 ??06/10/2022:?4:30 ??06/08/2022:?3:56 Missed?Treatments 0?-?last?30?days 0?-?last?60?days FLUID?ASSESSMENT EDW?(kg) ??06/13/2022:?57.5 ??06/10/2022:?57.5 ??06/08/2022:?57.0 Weight?Pre?(kg) ??06/13/2022:?64.6 ??06/10/2022:?60.5 ??06/08/2022:?59.8 Weight?Post?(kg) ??06/13/2022:?60.1 ??06/10/2022:?57.0 ??06/08/2022:?57.2 PWV?(kg) ??06/13/2022:?2.6 ??06/10/2022:?-0.5 ??06/08/2022:?0.2 UF?Rate?(mL/kg/hr) ??06/13/2022:?19.3 ??06/10/2022:?13.6 ??06/08/2022:?11.6 ADEQUACY?ASSESSMENT spKt/V,?URR ??05/16/2022:?1.46,?70.0 ??04/18/2022:?2.36,?86.0 ??03/14/2022:?1.51,?71.0 ACCESS?ASSESSMENT ??Access?Type:?AVFistula ??Access?SubType:?Standard ??Access?Status:?Active?(In?Use)?-?02/07/2022 ??Access?Location:?Right?Upper?Arm ??Created:?04/29/2021 Flow ??05/18/2022:?>2000 ??03/23/2022:?1761 ??03/18/2022:?1026 ANEMIA?ASSESSMENT HGB ??06/06/2022:?9.8 ??05/30/2022:?10.5 ??05/23/2022:?10.1 ?? Ferritin ??05/16/2022:?731.0 ??04/18/2022:?1485.0 ??03/14/2022:?804.0 Mircera,?IVP?(mcg) ??05/27/2022:?75 ??04/29/2022:?75 ??03/25/2022:?75 Iron?Sucrose?(Venofer)?(mg) ??04/11/2022:?100 ??04/08/2022:?100 ??04/06/2022:?100 BMM?ASSESSMENT Phosphorus,?Calcium ??05/16/2022:?6.6,?9.3 ??04/18/2022:?1.8,?8.9 ??03/14/2022:?9.0,?8.2 ?? PTH,?Intact ??05/16/2022:?32.0 ??04/18/2022:?52.0 ??03/14/2022:?75.0 Vitamin?D?(Calcitriol)?Oral?(mcg) ??06/13/2022:?1.0 ??06/10/2022:?1.0 ??06/08/2022:?1.0 NUTRITION?ASSESSMENT Albumin,?Potassium ??05/16/2022:?4.2,?5.2 ??04/18/2022:?4.4,?4.9 ??03/18/2022:?-,?5.3 ?? eNPCR ??05/16/2022:?0.67 ??04/18/2022:?0.78 ??03/14/2022:?1.03 DIAGNOSIS Chief?Complaint:?N18.6?End?stage?renal?disease Patient?data?updated?06/15/2022?at?10:30?AM Signed?By:?Jorge,?Kyara,?[employer]??on?06/15/2022?10:31:39 AM END OF DOCUMENT
--- OUTSIDE RECORDS SUMMARY | 2023-03-18 10:31 | XMS_ITS ---
Author Name Brady Patelcy Address [address] [place] [address] Phone [phone] Organization [facility] e, NA DOCUMENT DISCLAIMER Multiple document versions may exist, please be sure you review the latest version. The information in the [facility] Progress Note Document represents a providers documented clinical note containing certain health and medical information. It may not contain the complete medical history for the patient and should be independently verified. The represented time in the document is Eastern Time PROVIDER ROUNDING NOTE BASIC Patient:?ANUSHA?PAULA,?1965,?57y,?F Dialysis?Location:?[facility] Attending?Governor Assembler Hydraulic:?Isidoro?Alisa Service?Date:?12/23/2022 Service?Provider:?Kyara?Jorge,?AUDIOVISUAL LEAD TECHNICIAN I?met?face?to?face?with?the?patient?today. OVERVIEW The?patient?presented?with?ESRD?on?dialysis Comments:?12/23/22?-?Stable?treatment?with?no?complaints?or acute?issues.? 12/19/22?-?Continues?to?feel?better?since?hospitalization.?No ?shortness?of?breath?or?angioedema.?Large?IDWG?today,?d iscussed?with?patient.?No?complaints?or?acute?issues.? 12/07?Had?been?intubated?due?to?angioedema/no?meds?implicated /she?thinks?it?was?a?spider?bite.?Now?doing?better LAST?HOSPITALIZATION Discharge?Diagnosis:?R60.9?Edema,?unspecified Admission?Date?11/28/22 Discharge?Date?12/01/22 DIALYSIS?PRESCRIPTION ??IHD?3x?Week?Start?date:?08/10/22 ??Dialyzer:?160NRe?Optiflux ??BFR:?450 ??DFR:?Manual?500 ??Potassium:?2.0 ??Sodium:?137 ??EDW:?54.5 ??Duration:?4:00 ??Calcium:?2.5 ??Bicarb:?34 ??Rx?updated?on:?08/10/2022 TREATMENT?ASSESSMENT BP?Stand?Pre ??12/21/2022:?163/67 ??12/19/2022:?191/87 ??12/16/2022:?164/85 BP?Sit?Pre ??12/21/2022:?157/84 ??12/19/2022:?172/91 ??12/16/2022:?172/79 BP?Stand?Post ??12/21/2022:?171/85 ??12/19/2022:?151/66 ??12/16/2022:?189/109 BP?Sit?Post ??12/21/2022:?162/79 ??12/19/2022:?160/66 ??12/16/2022:?188/91 Tx?Duration ??12/21/2022:?4:01 ??12/19/2022:?4:04 ??12/16/2022:?3:59 Missed?Treatments 0?-?last?30?days 0?-?last?60?days FLUID?ASSESSMENT EDW?(kg) ??12/21/2022:?54.5 ??12/19/2022:?54.5 ??12/16/2022:?54.5 Weight?Pre?(kg) ??12/21/2022:?57.7 ??12/19/2022:?59.5 ??12/16/2022:?58.6 Weight?Post?(kg) ??12/21/2022:?55.5 ??12/19/2022:?56.1 ??12/16/2022:?54.5 PWV?(kg) ??12/21/2022:?1.0 ??12/19/2022:?1.6 ??12/16/2022:?0.0 UF?Rate?(mL/kg/hr) ??12/21/2022:?9.9 ??12/19/2022:?14.9 ??12/16/2022:?18.9 ADEQUACY?ASSESSMENT spKt/V,?URR ??12/12/2022:?1.51,?70.0 ??11/14/2022:?2.36,?85.0 ??10/17/2022:?1.96,?80.0 ACCESS?ASSESSMENT ??Access?Type:?AVFistula ??Access?SubType:?Standard ??Access?Status:?Active?(In?Use)?-?02/07/2022 ??Access?Location:?Right?Upper?Arm ??Created:?04/29/2021 Flow ??10/19/2022:?>2000 ??08/29/2022:?1606 ??08/24/2022:?986 ANEMIA?ASSESSMENT HGB,?TSAT ??12/19/2022:?9.0,?- ??12/12/2022:?9.2,?25.0 ??12/05/2022:?10.0,?- ?? Ferritin ??12/12/2022:?1172.0 ??11/14/2022:?599.0 ??10/17/2022:?643.0 Mircera,?IVP?(mcg) ??12/16/2022:?30 ??12/02/2022:?30 ??11/18/2022:?30 BMM?ASSESSMENT Phosphorus,?Calcium ??12/12/2022:?7.1,?8.3 ??11/21/2022:?-,?7.8 ??11/14/2022:?6.1,?7.8 ?? PTH,?Intact ??12/12/2022:?136.0 ??11/14/2022:?161.0 ??07/11/2022:?69.0 NUTRITION?ASSESSMENT Albumin,?Potassium ??12/12/2022:?4.2,?5.3 ??11/14/2022:?4.2,?5.1 ??10/24/2022:?-,?4.7 ?? eNPCR ??12/12/2022:?0.83 ??11/14/2022:?1.5 ??10/17/2022:?0.89 DIAGNOSIS Chief?Complaint:?N18.6?End?stage?renal?disease Patient?data?updated?12/23/2022?at?12:20?PM Signed?By:?Jorge,?Kyara,?AUDIOVISUAL LEAD TECHNICIAN??on?12/23/2022?12:21:23 PM END OF DOCUMENT
--- OUTSIDE RECORDS SUMMARY | 2023-03-18 10:31 | XMS_ITS ---
Author Name Brady Patelcy Address [address] [place] [address] Phone [phone] Organization [facility], NA DOCUMENT DISCLAIMER The information in the [facility] Provider Note Document represents a providersdocumented clinical note containing certain health and medical information. It may not contain the complete medical history for the patient and should be independently verified. The represented time in the document is Eastern Time PROVIDER ROUNDING NOTE BASIC Patient:?ANUSHA?PAULA,?1965,?56y,?F Dialysis?Location:?[facility] Attending?Quarry Plug And Feather Driller:?Isidoro?Alisa Service?Date:?02/25/2022 Service?Provider:?Kyara?Jorge,?LABORER ADJUSTABLE STEEL JOIST I?met?face?to?face?with?the?patient?today. OVERVIEW The?patient?presented?with?ESRD?on?dialysis Comments:?02/25/22?-?Cannulating?with?1?17g?arterial?needled,?running?well. 02/21/22?-?Stable?treatment. 02/18?did?POC?US?on?fistula.??Great?flow/?will?try& #160;17?g?needle?to?pull/?I?think?the?basilic?is?n ot?arterialized?and?is?fragile.? Medications?and?labs?reviewed. LAST?HOSPITALIZATION Discharge?Diagnosis:?T82.530A?Leakage?of?surgically?created?arter iovenous?fistula,?initial?encounter Admission?Date?10/31/21 Discharge?Date?11/03/21 DIALYSIS?PRESCRIPTION ??IHD?3x?Week?Start?date:?02/09/22 ??Dialyzer:?160NRe?Optiflux ??BFR:?450 ??DFR:?Manual?500 ??Potassium:?2.0 ??Sodium:?137 ??EDW:?59.6 ??Duration:?4:00 ??Calcium:?2.5 ??Bicarb:?34 ??Rx?updated?on:?02/08/2022 TREATMENT?ASSESSMENT BP?Sit?Pre ??02/23/2022:?150/81 ??02/21/2022:?160/84 ??02/18/2022:?135/66 BP?Stand?Post ??02/21/2022:?140/70 BP?Sit?Post ??02/23/2022:?162/68 ??02/21/2022:?144/71 ??02/18/2022:?139/61 Tx?Duration ??02/23/2022:?4:04 ??02/21/2022:?4:05 ??02/18/2022:?3:59 Missed?Treatments 0?-?last?30?days 0?-?last?60?days FLUID?ASSESSMENT EDW?(kg) ??02/23/2022:?59.6 ??02/21/2022:?59.6 ??02/18/2022:?59.6 Weight?Pre?(kg) ??02/23/2022:?60.2 ??02/21/2022:?62.4 ??02/18/2022:?61.2 Weight?Post?(kg) ??02/23/2022:?59.2 ??02/21/2022:?59.5 ??02/18/2022:?60.4 PWV?(kg) ??02/23/2022:?-0.4 ??02/21/2022:?-0.1 ??02/18/2022:?0.8 UF?Rate?(mL/kg/hr) ??02/23/2022:?4.2 ??02/21/2022:?11.9 ??02/18/2022:?3.3 ADEQUACY?ASSESSMENT spKt/V,?URR ??02/21/2022:?1.8,?78.0 ??01/24/2022:?1.7,?76.0 ??12/21/2021:?1.46,?70.0 ACCESS?ASSESSMENT ??Access?Type:?CVCatheter ??Access?SubType:?Tunneled ??Access?Status:?Active?(In?Use)?-?06/15/2020 ??Access?Location:?Chest ??Placed:?06/15/2020 ANEMIA?ASSESSMENT HGB,?TSAT ??02/21/2022:?11.7,?24.0 ??02/14/2022:?10.3,?- ??02/07/2022:?10.7,?- ?? Ferritin ??02/21/2022:?712.0 ??01/24/2022:?749.0 ??12/21/2021:?990.0 Mircera,?IVP?(mcg) ??02/11/2022:?100 ??01/28/2022:?100 ??01/14/2022:?60 Iron?Sucrose?(Venofer)?(mg) ??01/31/2022:?100 ??01/28/2022:?100 ??01/26/2022:?100 BMM?ASSESSMENT Phosphorus,?Calcium ??02/21/2022:?7.3,?8.1 ??01/24/2022:?6.4,?9.1 ??12/21/2021:?5.6,?8.9 ?? PTH,?Intact ??02/21/2022:?39.0 ??01/24/2022:?29.0 ??12/21/2021:?17.0 Vitamin?D?(Calcitriol)?Oral?(mcg) ??02/23/2022:?1.0 ??02/21/2022:?1.0 ??02/18/2022:?1.0 NUTRITION?ASSESSMENT Albumin,?Potassium ??02/21/2022:?4.0,?4.7 ??01/24/2022:?4.3,?4.4 ??12/21/2021:?4.3,?4.3 ?? eNPCR ??02/21/2022:?0.63 ??01/24/2022:?0.73 ??12/21/2021:?0.59 DIAGNOSIS Chief?Complaint:?N18.6?End?stage?renal?disease Patient?data?updated?02/25/2022?at?9:47?AM Signed?By:?Jorge,?Kyara,?LABORER ADJUSTABLE STEEL JOIST??on?02/25/2022?9:47:50?AM END OF DOCUMENT
--- OUTSIDE RECORDS SUMMARY | 2023-03-18 10:31 | XMS_ITS ---
Author Name Brady Patelcy Address [address] [place] [address] Phone [phone] Organization [facility], NA DOCUMENT DISCLAIMER Multiple document versions may exist, please be sure you review the latest version. The information in the [facility] Progress Note Document represents a providers documented clinical note containing certain health and medical information. It may not contain the complete medical history for the patient and should be independently verified. The represented time in the document is Eastern Time PROVIDER ROUNDING NOTE BASIC Patient:?ANUSHA?PAULA,?1965,?57y,?F Dialysis?Location:?[facility] Attending?Jig Inspector:?Isidoro?Alisa Service?Date:?10/19/2022 Service?Provider:?Kyara?Jorge,?TECHNOLOGY RECRUITER I?met?face?to?face?with?the?patient?today. OVERVIEW The?patient?presented?with?ESRD?on?dialysis Comments:?10/19/22?-?Stable?treatment?with?no?acute?issues.&#1 60;Feeling?well?on?her?non?dialysis?days.?States?she?mcintosh s?not?smoked??in?2?week?and?her?breathing?is?feeling?much?better.? 10/12?has?been?ok.?COPD?stable? Medications?and?labs?reviewed. LAST?HOSPITALIZATION Discharge?Diagnosis:?786.09?RESP?ABNORMALITY?NEC Admission?Date?08/07/22 Discharge?Date?08/09/22 DIALYSIS?PRESCRIPTION ??IHD?3x?Week?Start?date:?08/10/22 ??Dialyzer:?160NRe?Optiflux ??BFR:?450 ??DFR:?Manual?500 ??Potassium:?2.0 ??Sodium:?137 ??EDW:?54.5 ??Duration:?4:00 ??Calcium:?2.5 ??Bicarb:?34 ??Rx?updated?on:?08/10/2022 TREATMENT?ASSESSMENT BP?Sit?Pre ??10/17/2022:?241/103 ??10/14/2022:?183/94 ??10/12/2022:?187/109 BP?Stand?Post ??10/14/2022:?211/109 BP?Sit?Post ??10/17/2022:?194/96 ??10/14/2022:?198/97 ??10/12/2022:?175/93 Tx?Duration ??10/17/2022:?3:57 ??10/14/2022:?4:06 ??10/12/2022:?4:02 Missed?Treatments 0?-?last?30?days 0?-?last?60?days FLUID?ASSESSMENT EDW?(kg) ??10/17/2022:?54.5 ??10/14/2022:?54.5 ??10/12/2022:?54.5 Weight?Pre?(kg) ??10/17/2022:?57.9 ??10/14/2022:?56.9 ??10/12/2022:?56.8 Weight?Post?(kg) ??10/17/2022:?55.0 ??10/14/2022:?54.7 ??10/12/2022:?54.6 PWV?(kg) ??10/17/2022:?0.5 ??10/14/2022:?0.2 ??10/12/2022:?0.1 UF?Rate?(mL/kg/hr) ??10/17/2022:?13.3 ??10/14/2022:?9.8 ??10/12/2022:?10 ADEQUACY?ASSESSMENT spKt/V,?URR ??09/14/2022:?1.74,?75.0 ??08/15/2022:?1.76,?76.0 ??08/10/2022:?1.28,?65.0 ACCESS?ASSESSMENT ??Access?Type:?AVFistula ??Access?SubType:?Standard ??Access?Status:?Active?(In?Use)?-?02/07/2022 ??Access?Location:?Right?Upper?Arm ??Created:?04/29/2021 Flow ??10/19/2022:?>2000 ??08/29/2022:?1606 ??08/24/2022:?986 ANEMIA?ASSESSMENT HGB ??10/10/2022:?12.0 ??10/03/2022:?11.3 ??09/26/2022:?11.8 ?? Ferritin ??09/14/2022:?680.0 ??08/15/2022:?982.0 ??07/11/2022:?784.0 Mircera,?IVP?(mcg) ??09/16/2022:?60 ??09/02/2022:?50 ??08/19/2022:?50 Iron?Sucrose?(Venofer)?(mg) ??08/12/2022:?100 ??08/10/2022:?100 ??08/05/2022:?100 BMM?ASSESSMENT Phosphorus,?Calcium ??10/03/2022:?6.8,?- ??09/14/2022:?7.5,?8.1 ??08/15/2022:?6.2,?8.0 ?? PTH,?Intact ??07/11/2022:?69.0 ??06/13/2022:?44.0 ??05/16/2022:?32.0 NUTRITION?ASSESSMENT Albumin,?Potassium ??09/14/2022:?4.4,?5.8 ??08/19/2022:?-,?6.1 ??08/15/2022:?4.3,?6.9 ?? eNPCR ??09/14/2022:?0.93 ??08/15/2022:?1.0 ??08/10/2022:?0.89 DIAGNOSIS Chief?Complaint:?N18.6?End?stage?renal?disease Patient?data?updated?10/19/2022?at?9:30?AM Signed?By:?Jorge,?Kyara,?TECHNOLOGY RECRUITER??on?10/19/2022?9:31:08?AM END OF DOCUMENT
--- OUTSIDE RECORDS SUMMARY | 2023-03-18 10:31 | XMS_ITS ---
Author Name Isidoro Cuellar Address [address] [place] [address] Phone [phone] Organization [facility], NA DOCUMENT DISCLAIMER The information in the [facility] Provider Note Document represents a providersdocumented clinical note containing certain health and medical information. It may not contain the complete medical history for the patient and should be independently verified. The represented time in the document is Eastern Time PROVIDER ROUNDING NOTE COMPREHENSIVE Patient:?ANUSHA?PAULA,?1965,?56y,?F Dialysis?Location:?[facility] Attending?Oyster Opener:?Isidoro?Alisa Service?Date:?02/28/2022 Service?Provider:?Isidoro?Alisa,? I?met?face?to?face?with?the?patient?today. OVERVIEW The?patient?presented?with?ESRD?on?dialysis Comments:?02/25/22?-?Cannulating?with?1?17g?arterial?needled,?running?well. 02/21/22?-?Stable?treatment. 02/18?did?POC?US?on?fistula.??Great?flow/?will?try& #160;17?g?needle?to?pull/?I?think?the?basilic?is?n ot?arterialized?and?is?fragile.? Medications?and?labs?reviewed. LAST?HOSPITALIZATION Discharge?Diagnosis:?T82.530A?Leakage?of?surgically?created?arter iovenous?fistula,?initial?encounter Admission?Date?10/31/21 Discharge?Date?11/03/21 DIALYSIS?PRESCRIPTION ??IHD?3x?Week?Start?date:?02/09/22 ??Dialyzer:?160NRe?Optiflux ??BFR:?450 ??DFR:?Manual?500 ??Potassium:?2.0 ??Sodium:?137 ??EDW:?59.6 ??Duration:?4:00 ??Calcium:?2.5 ??Bicarb:?34 ??Rx?updated?on:?02/08/2022 TREATMENT?ASSESSMENT Comments:?02/28?Patient?having?more?trouble?with?shortness?o f?breath?since?creation?of?fistula/?concerned?for?high?output?failure. Blood?pressure?controlled.?No?changes?indicated.? BP?Sit?Pre ??02/25/2022:?134/60 ??02/23/2022:?150/81 ??02/21/2022:?160/84 BP?Stand?Post ??02/21/2022:?140/70 BP?Sit?Post ??02/25/2022:?161/82 ??02/23/2022:?162/68 ??02/21/2022:?144/71 Tx?Duration ??02/25/2022:?4:31 ??02/23/2022:?4:04 ??02/21/2022:?4:05 Missed?Treatments 0?-?last?30?days 0?-?last?60?days FLUID?ASSESSMENT Fluid?status?not?acceptable.?Interdialytic?weight?gain?acceptable .?No?changes?indicated.? EDW?(kg) ??02/25/2022:?59.6 ??02/23/2022:?59.6 ??02/21/2022:?59.6 Weight?Pre?(kg) ??02/25/2022:?60.4 ??02/23/2022:?60.2 ??02/21/2022:?62.4 Weight?Post?(kg) ??02/25/2022:?59.1 ??02/23/2022:?59.2 ??02/21/2022:?59.5 PWV?(kg) ??02/25/2022:?-0.5 ??02/23/2022:?-0.4 ??02/21/2022:?-0.1 UF?Rate?(mL/kg/hr) ??02/25/2022:?4.9 ??02/23/2022:?4.2 ??02/21/2022:?11.9 ADEQUACY?ASSESSMENT Adequacy?target?met.?Prescription?compliance?acceptable.? spKt/V,?URR ??02/21/2022:?1.8,?78.0 ??01/24/2022:?1.7,?76.0 ??12/21/2021:?1.46,?70.0 ACCESS?ASSESSMENT ??Access?Type:?CVCatheter ??Access?SubType:?Tunneled ??Access?Status:?Active?(In?Use)?-?06/15/2020 ??Access?Location:?Chest ??Placed:?06/15/2020 Comments:?02/28?will?start?workup?fo?fistula?flow/??Needs&#1 60;ligation?if?cardiac?symptoms?worsen Vascular?access?reviewed. ANEMIA?ASSESSMENT Anemia?reviewed.?Anemia?targets?met.? HGB,?TSAT ??02/21/2022:?11.7,?24.0 ??02/14/2022:?10.3,?- ??02/07/2022:?10.7,?- ?? Ferritin ??02/21/2022:?712.0 ??01/24/2022:?749.0 ??12/21/2021:?990.0 Mircera,?IVP?(mcg) ??02/11/2022:?100 ??01/28/2022:?100 ??01/14/2022:?60 Iron?Sucrose?(Venofer)?(mg) ??01/31/2022:?100 ??01/28/2022:?100 ??01/26/2022:?100 BMM?ASSESSMENT PTH?low.?Bone?and?mineral?metabolism?parameters?reviewed.?Ca lcium?controlled.?Hyperphosphatemia?noted.? Phosphorus,?Calcium ??02/21/2022:?7.3,?8.1 ??01/24/2022:?6.4,?9.1 ??12/21/2021:?5.6,?8.9 ?? PTH,?Intact ??02/21/2022:?39.0 ??01/24/2022:?29.0 ??12/21/2021:?17.0 Vitamin?D?(Calcitriol)?Oral?(mcg) ??02/25/2022:?1.0 ??02/23/2022:?1.0 ??02/21/2022:?1.0 NUTRITION?ASSESSMENT Nutrition?reviewed.?Potassium?controlled.? Albumin,?Potassium ??02/21/2022:?4.0,?4.7 ??01/24/2022:?4.3,?4.4 ??12/21/2021:?4.3,?4.3 ?? eNPCR ??02/21/2022:?0.63 ??01/24/2022:?0.73 ??12/21/2021:?0.59 PHYSICAL?EXAM Exam?Performed.?Vital?Signs?Reviewed.?Lungs?-?With?bibasilar?rales. DIAGNOSIS Chief?Complaint:?N18.6?End?stage?renal?disease Patient?data?updated?02/28/2022?at?9:58?AM Signed?By:?Alisa,?Isidoro,???on?02/28/2022?10:03:35 AM END OF DOCUMENT
--- OUTSIDE RECORDS SUMMARY | 2023-03-18 10:31 | XMS_ITS ---
Author Name Brady Patelcy Address [address] [place] [address] Phone [phone] Organization [facility] e, NA DOCUMENT DISCLAIMER Multiple document versions may exist, please be sure you review the latest version. The information in the [facility] Progress Note Document represents a providers documented clinical note containing certain health and medical information. It may not contain the complete medical history for the patient and should be independently verified. The represented time in the document is Eastern Time PROVIDER ROUNDING NOTE BASIC Patient:?ANUSHA?PAULA,?1965,?57y,?F Dialysis?Location:?[facility] Attending?Head Bander And Liner Operator:?Isidoro?Alisa Service?Date:?10/31/2022 Service?Provider:?Kyara?Jorge,?CURRICULUM CONSULTANT I?met?face?to?face?with?the?patient?today. OVERVIEW The?patient?presented?with?ESRD?on?dialysis Comments:?10/31/22-Stable?treatment. 10/19/22?-?Stable?treatment?with?no?acute?issues.?Feeling&#160 ;well?on?her?non?dialysis?days.?States?she?has?not&#160 ;smoked??in?2?week?and?her?breathing?is?feeling?much?better.? 8/2?has?been?ok.?COPD?stable LAST?HOSPITALIZATION Discharge?Diagnosis:?786.09?RESP?ABNORMALITY?NEC Admission?Date?08/07/22 Discharge?Date?08/09/22 DIALYSIS?PRESCRIPTION ??IHD?3x?Week?Start?date:?08/10/22 ??Dialyzer:?160NRe?Optiflux ??BFR:?450 ??DFR:?Manual?500 ??Potassium:?2.0 ??Sodium:?137 ??EDW:?54.5 ??Duration:?4:00 ??Calcium:?2.5 ??Bicarb:?34 ??Rx?updated?on:?08/10/2022 TREATMENT?ASSESSMENT BP?Stand?Pre ??10/24/2022:?193/100 BP?Sit?Pre ??10/28/2022:?198/87 ??10/26/2022:?157/81 ??10/24/2022:?164/87 BP?Stand?Post ??10/26/2022:?194/86 ??10/24/2022:?177/96 BP?Sit?Post ??10/28/2022:?165/76 ??10/26/2022:?188/96 ??10/24/2022:?149/81 Tx?Duration ??10/28/2022:?3:34 ??10/26/2022:?3:45 ??10/24/2022:?4:12 Missed?Treatments 0?-?last?30?days 0?-?last?60?days FLUID?ASSESSMENT EDW?(kg) ??10/28/2022:?54.5 ??10/26/2022:?54.5 ??10/24/2022:?54.5 Weight?Pre?(kg) ??10/28/2022:?56.2 ??10/26/2022:?56.8 ??10/24/2022:?57.7 Weight?Post?(kg) ??10/28/2022:?54.1 ??10/26/2022:?55.0 ??10/24/2022:?54.2 PWV?(kg) ??10/28/2022:?-0.4 ??10/26/2022:?0.5 ??10/24/2022:?-0.3 UF?Rate?(mL/kg/hr) ??10/28/2022:?10.9 ??10/26/2022:?8.7 ??10/24/2022:?15.4 ADEQUACY?ASSESSMENT spKt/V,?URR ??10/17/2022:?1.96,?80.0 ??09/14/2022:?1.74,?75.0 ??08/15/2022:?1.76,?76.0 ACCESS?ASSESSMENT ??Access?Type:?AVFistula ??Access?SubType:?Standard ??Access?Status:?Active?(In?Use)?-?02/07/2022 ??Access?Location:?Right?Upper?Arm ??Created:?04/29/2021 Flow ??10/19/2022:?>2000 ??08/29/2022:?1606 ??08/24/2022:?986 ANEMIA?ASSESSMENT HGB,?TSAT ??10/24/2022:?11.6,?- ??10/17/2022:?11.0,?43.0 ??10/10/2022:?12.0,?- ?? Ferritin ??10/17/2022:?643.0 ??09/14/2022:?680.0 ??08/15/2022:?982.0 Mircera,?IVP?(mcg) ??09/16/2022:?60 ??09/02/2022:?50 ??08/19/2022:?50 Iron?Sucrose?(Venofer)?(mg) ??08/12/2022:?100 ??08/10/2022:?100 ??08/05/2022:?100 BMM?ASSESSMENT Phosphorus,?Calcium ??10/17/2022:?6.9,?9.0 ??10/03/2022:?6.8,?- ??09/14/2022:?7.5,?8.1 ?? PTH,?Intact ??07/11/2022:?69.0 ??06/13/2022:?44.0 ??05/16/2022:?32.0 NUTRITION?ASSESSMENT Albumin,?Potassium ??10/24/2022:?-,?4.7 ??10/17/2022:?4.5,?6.1 ??09/14/2022:?4.4,?5.8 ?? eNPCR ??10/17/2022:?0.89 ??09/14/2022:?0.93 ??08/15/2022:?1.0 DIAGNOSIS Chief?Complaint:?N18.6?End?stage?renal?disease Patient?data?updated?10/31/2022?at?12:59?PM Signed?By:?Jorge,?Kyara,?CURRICULUM CONSULTANT??on?10/31/2022?1:00:10?PM END OF DOCUMENT
--- OUTSIDE RECORDS SUMMARY | 2023-03-18 10:31 | XMS_ITS ---
Author Name Isidoro Cuellar Address [address] [place] [address] Phone [phone] Organization [facility] e, NA DOCUMENT DISCLAIMER Multiple document versions may exist, please be sure you review the latest version. The information in the [facility] Progress Note Document represents a providers documented clinical note containing certain health and medical information. It may not contain the complete medical history for the patient and should be independently verified. The represented time in the document is Eastern Time PROVIDER ROUNDING NOTE BASIC Patient:?ANUSHA?PAULA,?1965,?56y,?F Dialysis?Location:?[facility] Attending?Washroom Cleaner:?Isidoro?Alisa Service?Date:?05/18/2022 Service?Provider:?Isidoro?Alisa,? I?met?face?to?face?with?the?patient?today. OVERVIEW The?patient?presented?with?ESRD?on?dialysis Comments:?Patient?seen?in?examined?on?dialysis.?Will?plan&#1 60;to?get?her?dialysis?catheter?removed.?An?order?has?b een?placed?for?this.?Her?current?right?upper?arm?access ?is?working?without?problems.?She?seems?to?improve?from?her?COPD?exacerbation DIALYSIS?PRESCRIPTION ??IHD?3x?Week?Start?date:?04/06/22 ??Dialyzer:?160NRe?Optiflux ??BFR:?450 ??DFR:?Manual?500 ??Potassium:?2.0 ??Sodium:?137 ??EDW:?57 ??Duration:?4:00 ??Calcium:?2.5 ??Bicarb:?34 ??Rx?updated?on:?04/04/2022 TREATMENT?ASSESSMENT BP?Stand?Pre ??05/16/2022:?147/73 BP?Sit?Pre ??05/16/2022:?153/78 ??05/13/2022:?184/95 ??05/11/2022:?175/154 BP?Stand?Post ??05/13/2022:?195/93 ??05/11/2022:?210/103 BP?Sit?Post ??05/16/2022:?105/53 ??05/13/2022:?175/72 ??05/11/2022:?181/100 Tx?Duration ??05/16/2022:?3:53 ??05/13/2022:?2:50 ??05/11/2022:?3:48 Missed?Treatments 0?-?last?30?days 0?-?last?60?days FLUID?ASSESSMENT EDW?(kg) ??05/16/2022:?57.0 ??05/13/2022:?57.0 ??05/11/2022:?57.0 Weight?Pre?(kg) ??05/16/2022:?61.2 ??05/13/2022:?59.1 ??05/11/2022:?58.1 Weight?Post?(kg) ??05/16/2022:?59.0 ??05/13/2022:?57.3 ??05/11/2022:?56.6 PWV?(kg) ??05/16/2022:?2.0 ??05/13/2022:?0.3 ??05/11/2022:?-0.4 UF?Rate?(mL/kg/hr) ??05/16/2022:?9.6 ??05/13/2022:?11.1 ??05/11/2022:?7 ADEQUACY?ASSESSMENT spKt/V,?URR ??04/18/2022:?2.36,?86.0 ??03/14/2022:?1.51,?71.0 ??02/21/2022:?1.8,?78.0 ACCESS?ASSESSMENT ??Access?Type:?AVFistula ??Access?SubType:?Standard ??Access?Status:?Active?(In?Use)?-?02/07/2022 ??Access?Location:?Right?Upper?Arm ??Created:?04/29/2021 Flow ??03/23/2022:?1761 ??03/18/2022:?1026 ??03/16/2022:?1387 ANEMIA?ASSESSMENT HGB ??05/09/2022:?10.2 ??05/04/2022:?9.1 ??05/02/2022:?8.8 ?? Ferritin ??04/18/2022:?1485.0 ??03/14/2022:?804.0 ??02/21/2022:?712.0 Mircera,?IVP?(mcg) ??04/29/2022:?75 ??03/25/2022:?75 Iron?Sucrose?(Venofer)?(mg) ??04/11/2022:?100 ??04/08/2022:?100 ??04/06/2022:?100 BMM?ASSESSMENT Phosphorus,?Calcium ??04/18/2022:?1.8,?8.9 ??03/14/2022:?9.0,?8.2 ??02/21/2022:?7.3,?8.1 ?? PTH,?Intact ??04/18/2022:?52.0 ??03/14/2022:?75.0 ??02/21/2022:?39.0 Vitamin?D?(Calcitriol)?Oral?(mcg) ??05/16/2022:?1.0 ??05/13/2022:?1.0 ??05/11/2022:?1.0 NUTRITION?ASSESSMENT Albumin,?Potassium ??04/18/2022:?4.4,?4.9 ??03/18/2022:?-,?5.3 ??03/14/2022:?4.1,?6.2 ?? eNPCR ??04/18/2022:?0.78 ??03/14/2022:?1.03 ??02/21/2022:?0.63 Patient?data?updated?05/18/2022?at?9:08?AM Signed?By:?Alisa,?Isidoro,???on?05/18/2022?9:09:10?AM END OF DOCUMENT
--- OUTSIDE RECORDS SUMMARY | 2023-03-18 10:31 | XMS_ITS ---
Author Name Isidoro Cuellar Address [address] [place] [address] Phone [phone] Organization [facility], NA DOCUMENT DISCLAIMER The information in the [facility] Dialysis Provider Note Document represents a providersdocumented clinical note containing certain health and medical information. It may not contain the complete medical history for the patient and should be independently verified. The represented time in the document is Eastern Time PROVIDER ROUNDING NOTE BASIC Patient:?ANUSHA?PAULA,?1965,?56y,?F Dialysis?Location:?[facility] Attending?Animal Husbandry Technician:?Isidoro?Alisa Service?Date:?03/14/2022 Service?Provider:?Isidoro?Alisa,? I?met?face?to?face?with?the?patient?today. OVERVIEW The?patient?presented?with?ESRD?on?dialysis Comments:?04/14/22?patient?gained?6?kg.?Will?try?to?do better.? Using?basilic?access/2x?16?gauge?needles?in? Will?also?need?to?assess?access?flow?if?recurring?chf&# 160;issues?before?pulling?catheter DIALYSIS?PRESCRIPTION ??IHD?3x?Week?Start?date:?02/09/22 ??Dialyzer:?160NRe?Optiflux ??BFR:?450 ??DFR:?Manual?500 ??Potassium:?2.0 ??Sodium:?137 ??EDW:?59.6 ??Duration:?4:00 ??Calcium:?2.5 ??Bicarb:?34 ??Rx?updated?on:?02/08/2022 TREATMENT?ASSESSMENT BP?Sit?Pre ??03/11/2022:?109/58 ??03/09/2022:?151/82 ??03/07/2022:?179/92 BP?Stand?Post ??03/11/2022:?137/61 ??03/07/2022:?182/94 BP?Sit?Post ??03/11/2022:?125/56 ??03/09/2022:?131/57 ??03/07/2022:?167/72 Tx?Duration ??03/11/2022:?4:11 ??03/09/2022:?4:03 ??03/07/2022:?4:07 Missed?Treatments 0?-?last?30?days 0?-?last?60?days FLUID?ASSESSMENT EDW?(kg) ??03/11/2022:?59.6 ??03/09/2022:?59.6 ??03/07/2022:?59.6 Weight?Pre?(kg) ??03/11/2022:?65.8 ??03/09/2022:?64.4 ??03/07/2022:?62.9 Weight?Post?(kg) ??03/11/2022:?62.8 ??03/09/2022:?61.6 ??03/07/2022:?60.3 PWV?(kg) ??03/11/2022:?3.2 ??03/09/2022:?2.0 ??03/07/2022:?0.7 UF?Rate?(mL/kg/hr) ??03/11/2022:?11.4 ??03/09/2022:?11.2 ??03/07/2022:?10.5 ADEQUACY?ASSESSMENT spKt/V,?URR ??02/21/2022:?1.8,?78.0 ??01/24/2022:?1.7,?76.0 ??12/21/2021:?1.46,?70.0 ACCESS?ASSESSMENT ??Access?Type:?CVCatheter ??Access?SubType:?Tunneled ??Access?Status:?Active?(In?Use)?-?06/15/2020 ??Access?Location:?Chest ??Placed:?06/15/2020 ANEMIA?ASSESSMENT HGB,?TSAT ??02/28/2022:?11.2,?- ??02/21/2022:?11.7,?24.0 ??02/14/2022:?10.3,?- ?? Ferritin ??02/21/2022:?712.0 ??01/24/2022:?749.0 ??12/21/2021:?990.0 Mircera,?IVP?(mcg) ??02/11/2022:?100 ??01/28/2022:?100 ??01/14/2022:?60 Iron?Sucrose?(Venofer)?(mg) ??01/31/2022:?100 ??01/28/2022:?100 ??01/26/2022:?100 BMM?ASSESSMENT Phosphorus,?Calcium ??02/21/2022:?7.3,?8.1 ??01/24/2022:?6.4,?9.1 ??12/21/2021:?5.6,?8.9 ?? PTH,?Intact ??02/21/2022:?39.0 ??01/24/2022:?29.0 ??12/21/2021:?17.0 Vitamin?D?(Calcitriol)?Oral?(mcg) ??03/11/2022:?1.0 ??03/09/2022:?1.0 ??03/07/2022:?1.0 NUTRITION?ASSESSMENT Albumin,?Potassium ??02/21/2022:?4.0,?4.7 ??01/24/2022:?4.3,?4.4 ??12/21/2021:?4.3,?4.3 ?? eNPCR ??02/21/2022:?0.63 ??01/24/2022:?0.73 ??12/21/2021:?0.59 Patient?data?updated?03/14/2022?at?8:47?AM Signed?By:?Alisa,?Isidoro,???on?03/14/2022?8:48:47?AM END OF DOCUMENT
--- OUTSIDE RECORDS SUMMARY | 2023-03-18 10:31 | XMS_ITS ---
Author Name Brady Patelcy Address [address] [place] [address] Phone [phone] Organization [facility], NA DOCUMENT DISCLAIMER Multiple document versions may exist, please be sure you review the latest version. The information in the [facility] Progress Note Document represents a providers documented clinical note containing certain health and medical information. It may not contain the complete medical history for the patient and should be independently verified. The represented time in the document is Eastern Time PROVIDER ROUNDING NOTE BASIC Patient:?ANUSHA?PAULA,?1965,?57y,?F Dialysis?Location:?[facility] Attending?Demo Event Specialist:?Isidoro?Alisa Service?Date:?08/17/2022 Service?Provider:?Kyara?Jorge,?PEST LOCATOR I?met?face?to?face?with?the?patient?today. OVERVIEW The?patient?presented?with?ESRD?on?dialysis Comments:?08/17/22?-?c/o?increased?sob,?feels?it?is?due&# 160;to?the?weather.?However,?she?is?about?6KG?above?her ?EDW.?Discussed?fluid?restriction,?she?admits?to?going ?off?the?rails?for?a?bit.?She?declined?the?o ffer?of?extra?treatments.?No?respiratory?distress,?chest?xuan n?or?acute?indication?for?emergency?care.?Discussed?the&#160 ;importance?of?fluid?restriction.?Stabel?treatment?today.? 6/2?had?3.5?weight?gain?today?6?kg?over?EDW.?Will do?sequential? Medications?and?labs?reviewed. LAST?HOSPITALIZATION Discharge?Diagnosis:?786.09?RESP?ABNORMALITY?NEC Admission?Date?08/07/22 Discharge?Date?08/09/22 DIALYSIS?PRESCRIPTION ??IHD?3x?Week?Start?date:?08/10/22 ??Dialyzer:?160NRe?Optiflux ??BFR:?450 ??DFR:?Manual?500 ??Potassium:?2.0 ??Sodium:?137 ??EDW:?54.5 ??Duration:?4:00 ??Calcium:?2.5 ??Bicarb:?34 ??Rx?updated?on:?08/10/2022 TREATMENT?ASSESSMENT BP?Sit?Pre ??08/15/2022:?152/75 ??08/12/2022:?157/83 ??08/10/2022:?161/81 BP?Stand?Post ??08/12/2022:?164/81 ??08/10/2022:?168/83 BP?Sit?Post ??08/15/2022:?163/58 ??08/12/2022:?140/64 ??08/10/2022:?168/83 Tx?Duration ??08/15/2022:?4:00 ??08/12/2022:?4:21 ??08/10/2022:?3:36 Missed?Treatments 0?-?last?30?days 0?-?last?60?days FLUID?ASSESSMENT EDW?(kg) ??08/15/2022:?54.5 ??08/12/2022:?54.5 ??08/10/2022:?55.0 Weight?Pre?(kg) ??08/15/2022:?61.1 ??08/12/2022:?60.7 ??08/10/2022:?60.1 Weight?Post?(kg) ??08/15/2022:?58.4 ??08/12/2022:?57.2 ??08/10/2022:?57.2 PWV?(kg) ??08/15/2022:?3.9 ??08/12/2022:?2.7 ??08/10/2022:?2.2 UF?Rate?(mL/kg/hr) ??08/15/2022:?11.6 ??08/12/2022:?14.1 ??08/10/2022:?14.1 ADEQUACY?ASSESSMENT spKt/V,?URR ??08/10/2022:?1.28,?65.0 ??07/11/2022:?3.63,?93.0 ??06/13/2022:?1.08,?55.0 ACCESS?ASSESSMENT ??Access?Type:?AVFistula ??Access?SubType:?Standard ??Access?Status:?Active?(In?Use)?-?02/07/2022 ??Access?Location:?Right?Upper?Arm ??Created:?04/29/2021 Flow ??07/13/2022:?1109 ??06/27/2022:?>2000 ??06/22/2022:?>2000 ANEMIA?ASSESSMENT HGB ??08/10/2022:?9.9 ??08/01/2022:?10.5 ??07/25/2022:?9.8 ?? Ferritin ??07/11/2022:?784.0 ??06/13/2022:?727.0 ??05/16/2022:?731.0 Mircera,?IVP?(mcg) ??08/05/2022:?50 ??07/22/2022:?50 ??06/24/2022:?75 Iron?Sucrose?(Venofer)?(mg) ??08/12/2022:?100 ??08/10/2022:?100 ??08/05/2022:?100 BMM?ASSESSMENT Phosphorus,?Calcium ??07/11/2022:?7.8,?8.5 ??06/13/2022:?7.1,?9.1 ??05/16/2022:?6.6,?9.3 ?? PTH,?Intact ??07/11/2022:?69.0 ??06/13/2022:?44.0 ??05/16/2022:?32.0 Vitamin?D?(Calcitriol)?Oral?(mcg) ??06/22/2022:?1.0 ??06/20/2022:?1.0 ??06/17/2022:?1.0 NUTRITION?ASSESSMENT Albumin,?Potassium ??07/11/2022:?4.1,?5.4 ??06/13/2022:?4.3,?4.6 ??05/16/2022:?4.2,?5.2 ?? eNPCR ??08/10/2022:?0.89 ??06/13/2022:?1.03 ??05/16/2022:?0.67 DIAGNOSIS Chief?Complaint:?N18.6?End?stage?renal?disease Patient?data?updated?08/17/2022?at?10:25?AM Signed?By:?Jorge,?Kyara,?PEST LOCATOR??on?08/17/2022?10:27:55 AM END OF DOCUMENT
--- OUTSIDE RECORDS SUMMARY | 2023-03-18 10:31 | XMS_ITS ---
Author Name Ted Quintanilla [facility] Address [address] [place] [address] Phone [phone] Organization [facility], NA DOCUMENT DISCLAIMER Multiple document versions may exist, please be sure you review the latest version. The information in the [facility] Progress Note Document represents a providers documented clinical note containing certain health and medical information. It may not contain the complete medical history for the patient and should be independently verified. The represented time in the document is Eastern Time PROVIDER ROUNDING NOTE BASIC Patient:?ANUSHA?PAULA,?1965,?57y,?F Dialysis?Location:?[facility] Attending?[employer] Drawer:?Isidoro?Alisa Service?Date:?10/07/2022 Service?Provider:?Shanna?Dwight,?RAIL FLAW DETECTOR OPERATOR I?met?face?to?face?with?the?patient?today. OVERVIEW The?patient?presented?with?ESRD?on?dialysis Comments:?10/07/22 Stable?HD?run.? 10/05?Doing?better?with?COPD?but?failing?overall LAST?HOSPITALIZATION Discharge?Diagnosis:?786.09?RESP?ABNORMALITY?NEC Admission?Date?08/07/22 Discharge?Date?08/09/22 DIALYSIS?PRESCRIPTION ??IHD?3x?Week?Start?date:?08/10/22 ??Dialyzer:?160NRe?Optiflux ??BFR:?450 ??DFR:?Manual?500 ??Potassium:?2.0 ??Sodium:?137 ??EDW:?54.5 ??Duration:?4:00 ??Calcium:?2.5 ??Bicarb:?34 ??Rx?updated?on:?08/10/2022 TREATMENT?ASSESSMENT BP?Stand?Pre ??10/05/2022:?158/82 ??10/03/2022:?210/84 ??09/30/2022:?154/84 BP?Sit?Pre ??10/05/2022:?134/79 ??10/03/2022:?177/75 ??09/30/2022:?139/77 BP?Stand?Post ??10/05/2022:?183/89 ??10/03/2022:?163/65 ??09/30/2022:?187/87 BP?Sit?Post ??10/05/2022:?165/80 ??10/03/2022:?179/68 ??09/30/2022:?163/78 Tx?Duration ??10/05/2022:?4:06 ??10/03/2022:?4:08 ??09/30/2022:?3:56 Missed?Treatments 0?-?last?30?days 0?-?last?60?days FLUID?ASSESSMENT EDW?(kg) ??10/05/2022:?54.5 ??10/03/2022:?54.5 ??09/30/2022:?54.5 Weight?Pre?(kg) ??10/05/2022:?59.2 ??10/03/2022:?59.2 ??09/30/2022:?56.6 Weight?Post?(kg) ??10/05/2022:?55.5 ??10/03/2022:?56.2 ??09/30/2022:?54.6 PWV?(kg) ??10/05/2022:?1.0 ??10/03/2022:?1.7 ??09/30/2022:?0.1 UF?Rate?(mL/kg/hr) ??10/05/2022:?16.3 ??10/03/2022:?12.9 ??09/30/2022:?9.3 ADEQUACY?ASSESSMENT spKt/V,?URR ??09/14/2022:?1.74,?75.0 ??08/15/2022:?1.76,?76.0 ??08/10/2022:?1.28,?65.0 ACCESS?ASSESSMENT ??Access?Type:?AVFistula ??Access?SubType:?Standard ??Access?Status:?Active?(In?Use)?-?02/07/2022 ??Access?Location:?Right?Upper?Arm ??Created:?04/29/2021 Flow ??08/29/2022:?1606 ??08/24/2022:?986 ??07/13/2022:?1109 ANEMIA?ASSESSMENT HGB ??10/03/2022:?11.3 ??09/26/2022:?11.8 ??09/19/2022:?10.9 ?? Ferritin ??09/14/2022:?680.0 ??08/15/2022:?982.0 ??07/11/2022:?784.0 Mircera,?IVP?(mcg) ??09/16/2022:?60 ??09/02/2022:?50 ??08/19/2022:?50 Iron?Sucrose?(Venofer)?(mg) ??08/12/2022:?100 ??08/10/2022:?100 ??08/05/2022:?100 BMM?ASSESSMENT Phosphorus,?Calcium ??10/03/2022:?6.8,?- ??09/14/2022:?7.5,?8.1 ??08/15/2022:?6.2,?8.0 ?? PTH,?Intact ??07/11/2022:?69.0 ??06/13/2022:?44.0 ??05/16/2022:?32.0 NUTRITION?ASSESSMENT Albumin,?Potassium ??09/14/2022:?4.4,?5.8 ??08/19/2022:?-,?6.1 ??08/15/2022:?4.3,?6.9 ?? eNPCR ??09/14/2022:?0.93 ??08/15/2022:?1.0 ??08/10/2022:?0.89 DIAGNOSIS Chief?Complaint:?N18.6?End?stage?renal?disease Patient?data?updated?10/07/2022?at?9:16?AM Signed?By:?Dwight,?Shanna,?RAIL FLAW DETECTOR OPERATOR??on?10/07/2022?9:17:09?AM END OF DOCUMENT
--- OUTSIDE RECORDS SUMMARY | 2023-03-18 10:31 | XMS_ITS ---
Author Name Isidoro Cuellar Address [address] [place], [place] [address] Phone [phone] Organization [facility], NA DOCUMENT DISCLAIMER Multiple document versions may exist, please be sure you review the latest version. The information in the [facility] Progress Note Document represents a providers documented clinical note containing certain health and medical information. It may not contain the complete medical history for the patient and should be independently verified. The represented time in the document is Eastern Time PROVIDER ROUNDING NOTE BASIC Patient:?ANUSHA?PAULA,?1965,?57y,?F Dialysis?Location:?[facility] Attending?Automotive Parts Salesperson:?Isidoro?Alisa Service?Date:?01/06/2023 Service?Provider:?Isidoro?Alisa,? I?met?face?to?face?with?the?patient?today. OVERVIEW The?patient?presented?with?ESRD?on?dialysis Comments:?Patient?is?doing?well?currently?in?terms?of?h er?COPD.?She?has?stopped?smoking?marijuana.?Her?intradialyti c?weight?gains?are?better. DIALYSIS?PRESCRIPTION ??IHD?3x?Week?Start?date:?08/10/22 ??Dialyzer:?160NRe?Optiflux ??BFR:?450 ??DFR:?Manual?500 ??Potassium:?2.0 ??Sodium:?137 ??EDW:?54.5 ??Duration:?4:00 ??Calcium:?2.5 ??Bicarb:?34 ??Rx?updated?on:?08/10/2022 TREATMENT?ASSESSMENT BP?Stand?Pre ??01/04/2023:?155/74 ??01/02/2023:?170/81 ??12/30/2022:?147/69 BP?Sit?Pre ??01/04/2023:?140/72 ??01/02/2023:?149/82 ??12/30/2022:?137/74 BP?Stand?Post ??01/04/2023:?122/40 ??01/02/2023:?179/88 ??12/30/2022:?150/76 BP?Sit?Post ??01/04/2023:?133/56 ??01/02/2023:?155/64 ??12/30/2022:?119/56 Tx?Duration ??01/04/2023:?4:03 ??01/02/2023:?4:06 ??12/30/2022:?4:02 Missed?Treatments 0?-?last?30?days 0?-?last?60?days FLUID?ASSESSMENT EDW?(kg) ??01/04/2023:?54.5 ??01/02/2023:?54.5 ??12/30/2022:?54.5 Weight?Pre?(kg) ??01/04/2023:?56.7 ??01/02/2023:?58.8 ??12/30/2022:?57.9 Weight?Post?(kg) ??01/04/2023:?54.3 ??01/02/2023:?55.2 ??12/30/2022:?54.8 PWV?(kg) ??01/04/2023:?-0.2 ??01/02/2023:?0.7 ??12/30/2022:?0.3 UF?Rate?(mL/kg/hr) ??01/04/2023:?10.9 ??01/02/2023:?15.9 ??12/30/2022:?14 ADEQUACY?ASSESSMENT spKt/V,?URR ??12/12/2022:?1.51,?70.0 ??11/14/2022:?2.36,?85.0 ??10/17/2022:?1.96,?80.0 ACCESS?ASSESSMENT ??Access?Type:?AVFistula ??Access?SubType:?Standard ??Access?Status:?Active?(In?Use)?-?02/07/2022 ??Access?Location:?Right?Upper?Arm ??Created:?04/29/2021 Flow ??10/19/2022:?>2000 ??08/29/2022:?1606 ??08/24/2022:?986 ANEMIA?ASSESSMENT HGB ??01/02/2023:?9.9 ??12/26/2022:?9.6 ??12/19/2022:?9.0 ?? Ferritin ??12/12/2022:?1172.0 ??11/14/2022:?599.0 ??10/17/2022:?643.0 Mircera,?IVP?(mcg) ??12/30/2022:?75 ??12/16/2022:?30 ??12/02/2022:?30 BMM?ASSESSMENT Phosphorus,?Calcium ??12/12/2022:?7.1,?8.3 ??11/21/2022:?-,?7.8 ??11/14/2022:?6.1,?7.8 ?? PTH,?Intact ??12/12/2022:?136.0 ??11/14/2022:?161.0 ??07/11/2022:?69.0 NUTRITION?ASSESSMENT Albumin,?Potassium ??12/12/2022:?4.2,?5.3 ??11/14/2022:?4.2,?5.1 ??10/24/2022:?-,?4.7 ?? eNPCR ??12/12/2022:?0.83 ??11/14/2022:?1.5 ??10/17/2022:?0.89 Patient?data?updated?01/06/2023?at?9:38?AM Signed?By:?Alisa,?Isidoro,???on?01/06/2023?9:39:03?AM END OF DOCUMENT
--- NOTE | 2023-03-18 10:45 | RT.EKG_ITS ---
APPROVED REPORT Exam: Resting ECG Reason for Exam: sob Patient Location: E HR:86 bpm ECG Measurements Heart Rate 86 AXIS MT 178 P 19 QRSd 157 QRS 57 QT 441 T 8 QTc 529 Conclusion Sinus rhythm...normal P axis, V-rate 60- 99 Right bundle branch block...QRSd>120, terminal axis(90,270) NSR, RBBB, new t wave inversion in III, no STEMI
[2023-03-18 11:22] LABS: Lactate 1.6 mmol/L (0.6-1.4)
[2023-03-18] MEDS: Albuterol/Ipratropium 3 ML UPD VIAL UPD (11:22)
[2023-03-18 11:25] LABS: Abs Immature Grans 0.03 10^3/uL (0.0-0.06); Absolute Basophil Count 0.03 10^3/uL (0.0-0.2); Absolute Eosinophil Count 0.35 10^3/uL (0.0-0.7); Absolute Lymphocyte Count 0.54 10^3/uL (1.2-3.4); Absolute Monocyte Count 0.55 10^3/uL (0.1-0.8); Absolute Neutrophil Count 3.89 10^3/uL (1.2-6.7); Basophils % 0.6; Eosinophils % 6.5; HCT 36.8 % (36.0-46.0); HGB 11.4 g/dL (11.2-15.7); Immature Grans % 0.6; MCH 28.7 pg (27.0-33.0); MCV 93 fL (80-95); MPV 12.7 fL (8.0-11.0); Monocytes % 10.2; Neutrophils % 72.1; Platelet Count 102 10^3/uL (130-400); RBC 3.97 10^6/uL (3.93-5.22); RDW 14.6 % (11.7-14.6); RDW-SD 50.2 fL; WBC 5.39 10^3/uL (4.4-10.8)
[2023-03-18 11:26] LABS: COVID-19 PCR Negative (Negative); Influenza A PCR Negative (Negative); Influenza B PCR Negative (Negative); RSV PCR Negative (Negative)
[2023-03-18 11:29] LABS: Source Nasopharynx
[2023-03-18 11:49] LABS: ALT 28 U/L (14-59); AST 24 U/L (15-37); Albumin 3.7 g/dL (3.4-5.0); Alkaline Phosphatase 267 U/L (46-116); Anion Gap 6.9 mmol/L (3-11); BUN 29 mg/dL (7-18); Bilirubin, Total 0.8 mg/dL (0.2-1.0); CO2 35.1 mmol/L (21.0-32.0); Calcium 8.5 mg/dL (8.5-10.1); Chloride 98 mmol/L (98-107); Estimated GFR 8.58 (mL/min/1.73m2); Glucose 163 mg/dL (74-106); Potassium 4.1 mmol/L (3.5-5.1); Sodium 140 mmol/L (136-145); Total Protein 7.2 g/dL (6.4-8.2)
[2023-03-18 11:54] LABS: CREATININE 5.4 mg/dL (0.55-1.02)
[2023-03-18 12:05] LABS: Troponin I 59 ng/L (<or=60)
[2023-03-18 12:38] LABS: Procalcitonin 0.7 ng/mL
--- NOTE | 2023-03-18 12:46 | DI.VRAD_ITS ---
PROCEDURE INFORMATION: Exam: XR Chest Exam date and time: 03/18/2023 11:46 AM Age: 57 years old Clinical indication: Cough and shortness of breath; Prior surgery; Surgery date: 6+ months; Surgery type: Open heart TECHNIQUE: Imaging protocol: Radiologic exam of the chest. Views: 2 views. COMPARISON: CR XR PORTABLE CHEST AP 02/27/2023 9:31 AM FINDINGS: Lungs: There are changes of diffuse interstitial edema. No focal consolidation. Pleural spaces: There is blunting of bilateral costophrenic angles consistent with small pleural effusions. Heart/Mediastinum: Surgical changes of sternotomy and aortic and mitral valve replacement. There is cardiomegaly. Bones/joints: See Heart/Mediastinum finding. IMPRESSION: Findings consistent with combination of pulmonary congestion and possible underlying pulmonary hypertension. Superimposed infectious process not completely excluded. Dictated and Authenticated by: Chon Kelley MD. Ordering:JESSIKA Burleson MD
[2023-03-18] MEDS: Doxycycline Hyclate 100 MG CAP PO (12:49)
[2023-03-18] MEDS: Dexamethasone 10 MG/ML VIAL IVP (12:49)
--- NOTE | 2023-03-18 13:15 | ED.GENADUL_ITS ---
HPI General Stated Complaint: GenMedical Mode of arrival: ambulatory. AWA: 3 Date/Time Provider Initiated Documentation: 03/18/23 10:28. Limitations to Documentation: no limitations. Information obtained by: patient and RN notes reviewed. History of Present Illness Cough, increased shortness of breath, diarrhe, headache day(s) (1) constant No relieving factors improve symptom(s), Other factors that worsen symptoms (Family exposure to RSV) Related Data Home Medications Medication Instructions Recorded Confirmed aspirin 81 mg chewable tablet 81 mg PO DAILY 05/24/16 03/18/23 inhalational spacing device 01/26/19 02/27/23 (Aerochamber MV spacer) omeprazole 40 mg capsule,delayed 40 mg PO BID 03/18/19 03/18/23 release atorvastatin 40 mg tablet 20 mg PO DAILY 10/24/19 03/18/23 tiotropium bromide 18 mcg capsule 1 cap inhalation DAILY #1 inh 02/16/21 03/18/23 with inhalation device (Spiriva with HandiHaler) minoxidil 2.5 mg tablet 5 mg PO QHS 01/21/22 03/18/23 ondansetron HCl 4 mg tablet 4 mg PO ONCE PRN nausea and 02/08/22 03/18/23 vomiting #1 tab vitamin B complex-vitamin C-folic 1 tab PO DAILY 04/19/22 03/18/23 acid 0.8 mg tablet acetaminophen 325 mg capsule 325 mg PO ONCE PRN 08/23/22 03/18/23 amlodipine 10 mg tablet 10 mg PO DAILY 08/23/22 03/18/23 trazodone 50 mg tablet 50 mg PO HS #90 tab-caps 12/07/22 02/09/23 epinephrine 0.3 mg/0.3 mL 0.3 mg IM ONCE PRN 01/04/23 03/18/23 injection, auto-injector albuterol sulfate 2.5 mg/3 mL 2.5 mg (3 mL) inhalation Q6H PRN 01/16/23 03/18/23 (0.083 %) solution for nebulization shortness of breath or wheezing #3 mL albuterol sulfate 90 mcg/actuation 2 puff inhalation QID PRN 01/24/23 03/18/23 aerosol inhaler (Ventolin HFA) shortness of breath or wheezing #8.5 grams ipratropium 0.5 mg-albuterol 3 mg 3 ml inhalation Q4H PRN shortness 01/25/23 03/18/23 (2.5 mg base)/3 mL nebulization of breath or wheezing #180 mL soln doxycycline hyclate 100 mg capsule 100 mg PO BID 7 days #14 caps 03/18/23 prednisone 20 mg tablet 40 mg (2 x 20 mg) PO DAILY #8 tabs 03/18/23 trazodone 50 mg tablet 50 mg PO DAILY 03/18/23 03/18/23 Previous Rx's Medication Instructions Recorded tiotropium bromide 18 mcg capsule 1 cap inhalation DAILY #1 inh 02/16/21 with inhalation device (Spiriva with HandiHaler) ondansetron HCl 4 mg tablet 4 mg PO ONCE PRN nausea and 02/08/22 vomiting #1 tab trazodone 50 mg tablet 50 mg PO HS #90 tab-caps 12/07/22 albuterol sulfate 2.5 mg/3 mL 2.5 mg (3 mL) inhalation Q6H PRN 01/16/23 (0.083 %) solution for nebulization shortness of breath or wheezing #3 mL albuterol sulfate 90 mcg/actuation 2 puff inhalation QID PRN 01/24/23 aerosol inhaler (Ventolin HFA) shortness of breath or wheezing #8.5 grams ipratropium 0.5 mg-albuterol 3 mg 3 ml inhalation Q4H PRN shortness 01/25/23 (2.5 mg base)/3 mL nebulization of breath or wheezing #180 mL soln doxycycline hyclate 100 mg capsule 100 mg PO BID 7 days #14 caps 03/18/23 prednisone 20 mg tablet 40 mg (2 x 20 mg) PO DAILY #8 tabs 03/18/23 Allergies Allergy/AdvReac Type Severity Reaction Status Date / Time cephalexin monohydrate Allergy Severe trouble Verified 02/27/23 07:52 [From Keflex] breathing colchicine Allergy Verified 02/27/23 07:52 allopurinol AdvReac Intermediate gout Verified 02/27/23 07:52 breakout erythromycin base AdvReac Intermediate gout Verified 02/27/23 07:52 breakout acetaminophen [From Percocet] AdvReac Unverified 02/27/23 07:52 oxycodone [From Percocet] AdvReac Unverified 02/27/23 07:52 Review of Systems Constitutional Constitutional: Reports chills, Reports fatigue, Reports fever(s) (Low-grade noted at dialysis yesterday), Reports headache(s) and Reports malaise ENT Ears, Nose, Mouth, and Throat: Reports headache(s) Cardiovascular Cardiovascular: Denies chest pain and Reports dyspnea Respiratory Respiratory: Reports cough and Reports dyspnea Gastrointestinal Gastrointestinal: Denies abdominal pain, Reports diarrhea and Reports nausea Integumentary/Breasts Skin/Breast: Denies rash Neurologic Neurologic: Reports headache(s) Endocrine Endocrine: Reports fatigue PFSH All Active Problems (Updated 03/18/23 @ 13:17 by Benjy Espinoza NP) Pneumonia (Acute) Acute and chronic respiratory failure with hypoxia (Acute) COPD with acute exacerbation (Acute) Vaginal bleeding (Acute) Thrombocytopenia (Chronic) Angioedema (Acute) Vaginal lesion (Acute) ESRD on dialysis (Chronic) On hemodialysis currently using central catheter-nephrology at [facility] receives dialysis at [facility] Depression (Acute 08/28/14) Gallstones (Acute) COPD (chronic obstructive pulmonary disease) (Chronic) Pulmonary at [facility] Central venous catheter in place (Acute ~10/29/19) [facility], right subclavian-dialysis Tricuspid regurgitation (Acute) s/p tricuspid valve replacement 02/2020, bovine Cirrhosis, alcoholic (Acute) POLST (Physician Orders for Life-Sustaining Treatment) (Acute) COLST completed 02/13/2020, DNR/DNI. Hemorrhage of arteriovenous fistula (Acute) Ventral hernia (Acute) Hypertension (Chronic) Aortic valve replaced (Acute) Bovine-with [facility] Personal history of nicotine dependence (Acute) 02/2021 Tobacco abuse (Acute) Lung nodule, solitary (Acute) Hemoptysis (Acute) Open abdominal wall wound (Acute) Fever (Acute) Neck pain (Acute) Right upper quadrant abdominal pain (Acute) Medical History Axillary lymphadenopathy Secondary hyperparathyroidism (of renal origin) Right heart failure CVD (cardiovascular disease) Macular degeneration of left eye (~10/17/19) [facility] Nail dystrophy Cannabis dependence Cyst of ovary (08/20/12) Depression (09/14/12) Recurrent urinary tract infection Upper GI bleed (05/17/14) 05/15/14 [facility] EGD, HH, esophagitis, gastric ulcer and duodenitis Umbilical hernia repaired 1995,1997,2001,2003 Hyperparathyroidism, unspecified (02/09/11) 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[facility] Hyperlipidemia Gastroesophageal reflux disease with esophagitis (02/03/15) Essential hypertension (01/16/13) severe and labile Diverticulitis of large intestine without perforation or abscess with bleeding Bleeding hemorrhoids (01/08/13) rectal bleeding (colonoscopy [facility] 01/01/13 internal hemorrhoids and diverticuli) Surgical History H/O aortic valve replacement History of kidney transplant TRANSPLANT, KIDNEY (~1997) LEFT Abdominal hysterectomy (~2006) s/p hyst, but cervix still present and needs yearly PAP due to transplant Repair of umbilical hernia 1995,1997,2001,2003 Family History Mother Essential hypertension Personal history of malignant neoplasm KIDNEY Heart disease Pulmonary emphysema Father Personal history of malignant neoplasm Pulmonary emphysema Brother Hyperlipidemia Brother Hyperlipidemia Brother No problems noted. Social History Smoking/Tobacco Use Status: Current every day Tobacco Type: cigarettes Smoking risk assessment performed?: Yes Alcohol Intake: former Drug use: Daily Substance use type: marijuana Details: mostly edibles Housing: apartment Current gender identity: female Do you feel safe at home: Yes Do you feel safe in your relationship?: Yes Exam Const General: cooperative, comfortable and no acute distress Orientation: alert and awake [facility] Head: normal to inspection, normocephalic and atraumatic Ears: hearing grossly normal bilaterally and TM's normal bilaterally General nose exam: external nose normal Face and sinus: no erythema Mouth: oral mucosae normal, no drooling, no muffled voice and no trismus Throat: posterior oropharynx normal Neck Neck: normal visual inspection, full ROM, no lymphadenopathy, no meningeal signs, trachea midline and supple Resp Effort & Inspection: normal respiratory effort, able to speak in complete sent ences and cough Quality of cough: dry Auscultation: clear to auscultation bilaterally and diminished lung sounds bilaterally in the lower lung knox Cardio Rate: regular rate Rhythm: regular rhythm Heart Sounds: S1 normal, S2 normal, normal S1 and S2, no click, no gallops, no m urmurs and no rubs Skin General skin exam: no rashes or lesions noted and dry skin (warm) Neuro General: patient alert, patient awake, patient oriented x3, gait normal and moves all extremities Cognition: normal cognition Speech: speech normal Course Vital Signs Vital signs: Vital Signs Temperature 37.3 C 03/18/23 10:25 Pulse 90 03/18/23 10:25 Respiratory Rate 22 03/18/23 10:25 Blood Pressure 156/66 H 03/18/23 10:25 Pulse Oximetry 86 L 03/18/23 10:25 Temperature 37.3 C 03/18/23 10:25 Temperature Source Temporal Artery Scan 03/18/23 10:25 Pulse 85 03/18/23 12:01 Pulse 84 03/18/23 12:20 Respiratory Rate 23 03/18/23 12:20 Respiratory Effort Labored 03/18/23 10:45 Respiratory Depth Normal 03/18/23 10:45 Respiratory Pattern Normal 03/18/23 10:45 Blood Pressure 108/54 L 03/18/23 12:01 Blood Pressure Mean 70 03/18/23 12:01 Pulse Oximetry 96 03/18/23 12:10 Oxygen Delivery Method Nasal Cannula 03/18/23 10:25 Oxygen Flow Rate 2 03/18/23 10:25 Lab/Test Results Lab/Test Results: 03/18/23 11:12 Blood Blood Culture - Pending 03/18/23 11:05 Blood Blood Culture - Pending Laboratory Tests Range/Units 03/18/23 03/18/23 03/18/23 10:35 11:12 11:30 WBC (4.4-10.8) 10^3/uL 5.39 RBC (3.93-5.22) 10^6/uL 3.97 Hgb (11.2-15.7) g/dL 11.4 Hct (36.0-46.0) % 36.8 MCV (80-95) fL 93 MCH (27.0-33.0) pg 28.7 MCHC (32.0-36.0) % 31.0 L RDW (11.7-14.6) % 14.6 Plt Count (130-400) 10^3/uL 102 L MPV (8.0-11.0) fL 12.7 H Immature Gran % 0.6 Neutrophils % 72.1 Lymphocytes % 10.0 Monocytes % 10.2 Eosinophils % 6.5 Basophils % 0.6 Nucleated RBC % (0.0-0.3) % 0.0 Absolute Neutrophils (1.2-6.7) 10^3/uL 3.89 Absolute Lymphocytes (1.2-3.4) 10^3/uL 0.54 L Absolute Monocytes (0.1-0.8) 10^3/uL 0.55 Absolute Eosinophils (0.0-0.7) 10^3/uL 0.35 Absolute Basophils (0.0-0.2) 10^3/uL 0.03 VBG Lactate (0.6-1.4) mmol/L 1.6 H Sodium (136-145) mmol/L 140 Potassium (3.5-5.1) mmol/L 4.1 Chloride (98-107) mmol/L 98 Carbon Dioxide (21.0-32.0) mmol/L 35.1 H Anion Gap (3-11) mmol/L 6.9 BUN (7-18) mg/dL 29 H Creatinine (0.55-1.02) mg/dL 5.4 H* Est GFR (CKD-EPI 2020) (mL/min/1.73m2) 8.58 Glucose (74-106) mg/dL 163 H Calcium (8.5-10.1) mg/dL 8.5 Total Bilirubin (0.2-1.0) mg/dL 0.8 AST (15-37) U/L 24 ALT (14-59) U/L 28 Alkaline Phosphatase (46-116) U/L 267 H Troponin I (<or=60) ng/L 59 Total Protein (6.4-8.2) g/dL 7.2 Albumin (3.4-5.0) g/dL 3.7 Procalcitonin ng/mL 0.7 COVID-19 Source Nasopharynx SARS-CoV-2 (PCR) (Negative) Negative Influenza Type A (PCR) (Negative) Negative Influenza Type B (PCR) (Negative) Negative RSV (PCR) (Negative) Negative Medical Decision Making Patient presenting to the emergency department for chief complaint of shortness of breath, low-grade fever, intermittent cough malaise and single episode of diarrhea that started yesterday. She states significant concern and anxiety about potential exposure to RSV from family member. Patient has significant past medical history of end-stage renal disease with dialysis which she is does states she had a full session yesterday, COPD with intermittent oxygen use with normal saturation per patient between 88 and 91, cardiovascular disease, right- sided heart failure, hypertension, depression. Physical exam shows chronically ill-appearing patient with no signs of respiratory distress but does have intermittent dry cough during exam. No tachycardia perceived during exam unremarkable HEENT exam and exam otherwise noncontributory. Given patient's significant history we will plan on performing chest x-ray, viral swab, and labs. Pending results will give DuoNeb. Of note when patient initially got here her O2 sat was 86% and she did state slight increased need of oxygen use at home so on staff did place oxygen on but was able to titrate her down. CBC shows slightly decreased lymphocytes otherwise nondiagnostic, lactate slightly elevated at 1.6, CMP shows findings at baseline for patient which include abnormal carbon oxide, BUN, creatinine glucose and alk phos but again not concerning given patient's baseline. Patient negative for COVID flu and influenza. Did review chest x-ray with radiologist interpretation of Findings consistent with combination of pulmonary congestion and possible underlying pulmonary hypertension. Superimposed infectious process not completely excluded. Given low-grade fever and cough I am concerned for possible infectious process including pneumonia. Also considered is COPD with acute exacerbation. Patient given Decadron and doxycycline. Discussed with patient admission due to very slight need of oxygen but now is back on room air and shows no extra demand Along with question of pneumonia via x-ray and symptoms. After discussion patient states that she does not want to stay as she is aware that she is a dialysis patient and would need to be transferred to another hospital. Her vital signs are stable and she states significant improvement of her symptoms. Shared decision-making was utilized and discussed honestly my concern given her significant past medical history but she states that she will go home and return for any significant worsening of symptoms. Given patient's history she does have a low threshold for returning but given that she no longer requires additional oxygen, O2 sat was noted while I was in the room of 90 to 91% on room air with no signs of respiratory distress patient discharged on course of prednisone and doxycycline and encouraged to immediately return for new or worsening. After discussion of diagnosis and plan of care patient has no further needs, questions, or concerns and states clear understanding to return to the emergency department for any worsening symptoms. This documentation was generated using cashcloud dictation system, please disregard any oddities of phrase or misspellings. Imaging Data Radiologic Study: Imaging: X-Ray Radiologist's impression: Exam(s) PROCEDURE INFORMATION: Exam: XR Chest Exam date and time: 03/18/2023 11:46 AM Age: 57 years old Clinical indication: Cough and shortness of breath; Prior surgery; Surgery date: 6+ months; Surgery type: Open heart TECHNIQUE: Imaging protocol: Radiologic exam of the chest. Views: 2 views. COMPARISON: CR XR PORTABLE CHEST AP 02/27/2023 9:31 AM FINDINGS: Lungs: There are changes of diffuse interstitial edema. No focal consolidation. Pleural spaces: There is blunting of bilateral costophrenic angles consistent with small pleural effusions. Heart/Mediastinum: Surgical changes of sternotomy and aortic and mitral valve replacement. There is cardiomegaly. Bones/joints: See Heart/Mediastinum finding. IMPRESSION: Findings consistent with combination of pulmonary congestion and possible underlying pulmonary hypertension. Superimposed infectious process not completely excluded. Dictated and Authenticated by: Chon Kelley MD. Ordering:JESSIKA Burleson MD Lab Data Lab results reviewed: Yes I reviewed the patient's lab results. Quality:SDOH Health Related Social Needs: No Data to Display Discharge Plan Disposition Patient Disposition: Home Discharge Details Clinical Impression: Pneumonia, COPD with acute exacerbation Primary Care Provider: Chano Neves ED Provider: Benjy Espinoza Home Meds and New Rx's Prescriptions: New doxycycline hyclate 100 mg capsule 100 mg PO BID 7 Days Qty: 14 0RF prednisone 20 mg tablet 40 mg PO DAILY Qty: 8 0RF Continued ondansetron HCl 4 mg tablet 4 mg PO ONCE PRN (Reason: nausea and vomiting) Qty: 1 0RF tiotropium bromide [Spiriva with HandiHaler] 18 mcg capsule, w/inhalation device 1 cap inhalation DAILY Qty: 1 0RF Rx Instructions: puncture 1 cap using device; one dose = 2 inhalations from [facility] B complex-vitamin C-folic acid 0.8 mg tablet 1 tab PO DAILY aspirin 81 MG tablet,chewable 81 mg PO DAILY Hold Instructions: out. no resupply atorvastatin 40 mg tablet 20 mg PO DAILY minoxidil 2.5 mg tablet 5 mg PO QHS acetaminophen 325 mg capsule 325 mg PO ONCE PRN amlodipine 10 mg tablet 10 mg PO DAILY Hold Instructions: out. no resupply epinephrine 0.3 mg/0.3 mL auto-injector 0.3 mg IM ONCE PRN Rx Instructions: as a single dose; may repeat once albuterol sulfate [Ventolin HFA] 90 mcg/actuation HFA aerosol inhaler 2 puff inhalation QID PRN (Reason: shortness of breath or wheezing) Qty: 8.5 5RF ipratropium-albuterol 0.5 mg-3 mg(2.5 mg base)/3 mL solution for nebulization 3 ml inhalation Q4H PRN (Reason: shortness of breath or wheezing) Qty: 180 3RF omeprazole 40 mg Capsule,Delayed Release(Dr/Ec) 40 mg PO BID albuterol sulfate 2.5 mg /3 mL (0.083 %) solution for nebulization 2.5 mg inhalation Q6H PRN (Reason: shortness of breath or wheezing) Qty: 3 0RF Rx Instructions: [facility] trazodone 50 mg tablet 50 mg PO DAILY (DME) Aerochamber MV Spacer MISCELLANEOUS No Action trazodone 50 mg tablet 50 mg PO HS Qty: 90 3RF Rx Instructions: 1 TAB HS Discharge Instructions Instructions: COPD (Chronic Obstructive Pulmonary Disease) (ED), Pneumonia (ED) Additional Instructions: If you have any new or significant worsening of your symptoms return immediately to the emergency department for reassessment. If your oxygen gets low or you start having significant worsening of your breathing again call 911 or return to the emergency department for reassessment. Otherwise continue to take your inhalers, stay appropriately hydrated based on your dialysis needs, and take antibiotic and steroid as prescribed. You were given your first dose of steroid today IV send can start the oral steroid tomorrow morning. Please take dose of antibiotic this evening before bed and then twice a day until gone. Referrals: Chano Neves MD [Primary Care Provider] - 3 days Discharge Data Discharge Date/Time-TO BE ENTERED AT DEPARTURE: 03/18/23 13:32
== END 2023-03-18 13:32 | disposition home or self-care (01) ==
PROVIDERS: Emergency Provider Nurse Practitioner Family; PCP Family Medicine
DX: R06.02 Shortness of breath (principal); R53.1 Weakness; R05.1 Acute cough; R50.9 Fever, unspecified; J18.9 Pneumonia, unspecified organism; J44.1 Chronic obstructive pulmonary disease with (acute) exacerbation
CPT/HCPCS: 80053; 84145; 87040; 87637; 93005; 94640; 96374; 99284; 71046; 83605; 84484; 85025; 93010; 99283; J1100; J7620

== ENCOUNTER 2023-03-22 18:06 | Emergency (ER) | payer OTHER, SELFPAY ==
[2023-03-22 18:15] VITALS: BP 140/112; PULSE 82; RESP 22; TEMP 37.2; O2SAT 96
--- NOTE | 2023-03-22 18:30 | DI.RAD_ITS ---
Exam(s) XR CHEST 2V PA LATERAL EXAM: XR CHEST 2V PA LATERAL CLINICAL HISTORY: SOB/. TECHNIQUE: 2D digital imaging was performed. COMPARISON: CR,XR XR CHEST 2V PA LATERAL from 03/18/2023 FINDINGS: 2 views: Again noted is cardiomegaly, sternotomy, and 2 prosthetic cardiac valves. There has been improvement in the pulmonary edema pattern which is mostly resolved. There are no ple ural effusions. No infiltrates. IMPRESSION: Improved pulmonary edema. Lungs presently appear clear. DATA REPOSITORY: RADIATION DOSE DELIVERED:
[2023-03-22 18:44] VITALS: RESP 18; O2SAT 20
--- NOTE | 2023-03-22 18:49 | ED.GENADUL_ITS ---
HPI General Stated Complaint: SOB Mode of arrival: ambulatory. AWA: 2 Date/Time Provider Initiated Documentation: 03/22/23 18:43. Limitations to Documentation: no limitations. Information obtained by: patient, RN notes reviewed and old records reviewed. HPI Narrative: 57-year-old female past medical history of COPD, who is on dialysis for end- stage renal disease, heart failure, CVD, depression hyperlipidemia presents with shortness of breath which was worse at 1630 today. She has been using her albuterol nebulizer last at 1330. She reports that her power has been out since 230 today. She was seen here on Monday and was diagnosed with early pneumonia and is on doxycycline currently. Patient has 2 days left of doxycycline which she was prescribed on Monday for early pneumonia. She was out of her oxygen due to power outage earlier today. She is requesting a nebulizer. Denies any chest pain, nausea vomiting diarrhea. No new fever. She is at her baseline. She is reporting some mild dizziness when she moves too fast. She also has a small contusion noted to her left lower anterior tenorio after hitting her leg with her oxygen tank. She did have her dialysis treatment today. She does have an appointment with her PCP upcoming on Monday. Related Data Home Medications Medication Instructions Recorded Confirmed aspirin 81 mg chewable tablet 81 mg PO DAILY 05/24/16 03/20/23 inhalational spacing device 01/26/19 03/20/23 (Aerochamber MV spacer) omeprazole 40 mg capsule,delayed 40 mg PO BID 03/18/19 03/20/23 release atorvastatin 40 mg tablet 20 mg PO DAILY 10/24/19 03/20/23 tiotropium bromide 18 mcg capsule 1 cap inhalation DAILY #1 inh 02/16/21 03/20/23 with inhalation device (Spiriva with HandiHaler) minoxidil 2.5 mg tablet 5 mg PO QHS 01/21/22 03/20/23 ondansetron HCl 4 mg tablet 4 mg PO ONCE PRN nausea and 02/08/22 03/20/23 vomiting #1 tab vitamin B complex-vitamin C-folic 1 tab PO DAILY 04/19/22 03/20/23 acid 0.8 mg tablet acetaminophen 325 mg capsule 325 mg PO ONCE PRN 08/23/22 03/20/23 amlodipine 10 mg tablet 10 mg PO DAILY 08/23/22 03/20/23 trazodone 50 mg tablet 50 mg PO HS #90 tab-caps 12/07/22 03/20/23 epinephrine 0.3 mg/0.3 mL 0.3 mg IM ONCE PRN 01/04/23 03/20/23 injection, auto-injector albuterol sulfate 2.5 mg/3 mL 2.5 mg (3 mL) inhalation Q6H PRN 01/16/23 03/20/23 (0.083 %) solution for nebulization shortness of breath or wheezing #3 mL albuterol sulfate 90 mcg/actuation 2 puff inhalation QID PRN 01/24/23 03/20/23 aerosol inhaler (Ventolin HFA) shortness of breath or wheezing #8.5 grams ipratropium 0.5 mg-albuterol 3 mg 3 ml inhalation Q4H PRN shortness 01/25/23 03/20/23 (2.5 mg base)/3 mL nebulization of breath or wheezing #180 mL soln doxycycline hyclate 100 mg capsule 100 mg PO BID 7 days #14 caps 03/18/23 03/20/23 prednisone 20 mg tablet 40 mg (2 x 20 mg) PO DAILY #8 tabs 03/18/23 03/20/23 trazodone 50 mg tablet 50 mg PO DAILY 03/18/23 03/20/23 prednisone 20 mg tablet 40 mg (2 x 20 mg) PO DAILY #10 tabs 03/22/23 03/22/23 Previous Rx's Medication Instructions Recorded tiotropium bromide 18 mcg capsule 1 cap inhalation DAILY #1 inh 02/16/21 with inhalation device (Spiriva with HandiHaler) ondansetron HCl 4 mg tablet 4 mg PO ONCE PRN nausea and 02/08/22 vomiting #1 tab trazodone 50 mg tablet 50 mg PO HS #90 tab-caps 12/07/22 albuterol sulfate 2.5 mg/3 mL 2.5 mg (3 mL) inhalation Q6H PRN 01/16/23 (0.083 %) solution for nebulization shortness of breath or wheezing #3 mL albuterol sulfate 90 mcg/actuation 2 puff inhalation QID PRN 01/24/23 aerosol inhaler (Ventolin HFA) shortness of breath or wheezing #8.5 grams ipratropium 0.5 mg-albuterol 3 mg 3 ml inhalation Q4H PRN shortness 01/25/23 (2.5 mg base)/3 mL nebulization of breath or wheezing #180 mL soln doxycycline hyclate 100 mg capsule 100 mg PO BID 7 days #14 caps 03/18/23 prednisone 20 mg tablet 40 mg (2 x 20 mg) PO DAILY #8 tabs 03/18/23 prednisone 20 mg tablet 40 mg (2 x 20 mg) PO DAILY #10 tabs 03/22/23 Allergies Allergy/AdvReac Type Severity Reaction Status Date / Time cephalexin monohydrate Allergy Severe trouble Verified 03/22/23 12:27 [From Keflex] breathing colchicine Allergy Verified 03/22/23 12:27 allopurinol AdvReac Intermediate gout Verified 03/22/23 12:27 breakout erythromycin base AdvReac Intermediate gout Verified 03/22/23 12:27 breakout acetaminophen [From Percocet] AdvReac Unverified 03/22/23 12:27 oxycodone [From Percocet] AdvReac Unverified 03/22/23 12:27 Review of Systems All systems reviewed & are unremarkable except as noted in HPI and below ENT Ears, Nose, Mouth, and Throat: Reports dizziness Cardiovascular Cardiovascular: Denies chest pain, Denies syncope, Denies leg edema and Reports dyspnea Respiratory Respiratory: Reports dyspnea Neurologic Neurologic: Reports dizziness and Denies syncope PFSH All Active Problems (Updated 03/22/23 @ 19:42 by Lyn Márquez NP) Pneumonia (Acute) Acute and chronic respiratory failure with hypoxia (Acute) COPD with acute exacerbation (Acute) Vaginal bleeding (Acute) Thrombocytopenia (Chronic) Angioedema (Acute) Vaginal lesion (Acute) ESRD on dialysis (Chronic) On hemodialysis currently using central catheter-nephrology at [facility] receives dialysis at [facility] H region Depression (Acute 08/28/14) Gallstones (Acute) COPD (chronic obstructive pulmonary disease) (Chronic) Pulmonary at [facility] Central venous catheter in place (Acute ~10/29/19[place] [facility] sub[place] Tricuspid regurgitation (Acute) s/p tricuspid valve replacement 02/2020, bovine Cirrhosis, alcoholic (Acute) POLST (Physician Orders for Life-Sustaining Treatment) (Acute) COLST completed 02/13/2020, DNR/DNI. Hemorrhage of arteriovenous fistula (Acute) Ventral hernia (Acute) Hypertension (Chronic) Aortic valve replaced (Acute) Bovine-with [facility] Personal history of nicotine dependence (Acute) 02/2021 Tobacco abuse (Acute) Lung nodule, solitary (Acute) Hemoptysis (Acute) Open abdominal wall wound (Acute) Fever (Acute) Neck pain (Acute) Right upper quadrant abdominal pain (Acute) Medical History Axillary lymphadenopathy Secondary hyperparathyroidism (of renal origin) Right heart failure CVD (cardiovascular disease) Macular degeneration of left eye (~10/17/19) [facility] Nail dystrophy Cannabis dependence Cyst of ovary (08/20/12) Depression (09/14/12) Recurrent urinary tract infection Upper GI bleed (05/17/14) 05/15/14 [facility], HH, esophagitis, gastric ulcer and duodenitis Umbilical hernia repaired 1995,1997,2001,2003 Hyperparathyroidism, unspecified (02/09/11) 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[facility] Hyperlipidemia Gastroesophageal reflux disease with esophagitis (02/03/15) Essential hypertension (01/16/13) severe and labile Diverticulitis of large intestine without perforation or abscess with bleeding Bleeding hemorrhoids (01/08/13) rectal bleeding (colonoscopy [facility] internal hemorrhoids and diverticuli) Surgical History H/O aortic valve replacement History of kidney transplant TRANSPLANT, KIDNEY (~1997) LEFT Abdominal hysterectomy (~2006) s/p hyst, but cervix still present and needs yearly PAP due to transplant Repair of umbilical hernia 1995,1997,2001,2003 Family History Mother Essential hypertension Personal history of malignant neoplasm KIDNEY Heart disease Pulmonary emphysema Father Personal history of malignant neoplasm Pulmonary emphysema Brother Hyperlipidemia Brother Hyperlipidemia Brother No problems noted. Social History Smoking/Tobacco Use Status: Current every day Tobacco Type: cigarettes Smoking risk assessment performed?: Yes Alcohol Intake: former Drug use: Daily Substance use type: marijuana Details: mostly edibles Housing: apartment Current gender identity: female Do you feel safe at home: Yes Do you feel safe in your relationship?: Yes Exam Narrative Exam Narrative: Constitutional: Alert and oriented x3. Appears stated age. Normal body habitus. Patient is chronically ill, history of dialysis which she had today. She is slightly tachypneic. O2 sat is 95% on 2 L, lungs are clear to auscultation bilaterally. Head: Normocephalic, no trauma. Eyes: Pupils PERRL, Red reflex noted, EOM's intact. Eyelids symmetrical without lesions, discharge, or swelling. ENT: Bilateral TM's WNL, External ear normal to inspection, no mastoid TTP, swelling, or erythema, Nasal turbinates WNL, no nasal discharge. Normal dentition, Posterior pharynx WNL, no exudate. Chest: RRR, Normal S1, S2, distal pulses intact. Resp: Lungs clear to auscultation bilaterally, no wheezes, rales, or rhonchi. She does have pursed lip breathing. Abdomen: Soft, non-distended, Normoactive bowel sounds all 4 quads. Musculoskeletal: Normal gait, 5/5 strength to all four extremities. Skin: No suspicious rashes or lesions. Capillary refill less than 2 sec. Neurologic: Cranial nerves II-XII intact. Alert and oriented x 3. Motor: No deficits noted. Sensory: Intact bilaterally all 4 extremities. Reflexes: DTR's intact bilaterally.. Hematologic/Lymphatic: No ecchymosis, no lymphadenopathy. Course Vital Signs Vital signs: Vital Signs Temperature 37.2 C 03/22/23 18:15 Pulse 82 03/22/23 18:15 Respiratory Rate 22 03/22/23 18:15 Blood Pressure 140/112 H 03/22/23 18:15 Pulse Oximetry 96 03/22/23 18:15 Temperature 37.2 C 03/22/23 18:15 Temperature Source Skin 03/22/23 18:15 Pulse 82 03/22/23 18:15 Respiratory Rate 18 03/22/23 18:44 Respiratory Effort Normal 03/22/23 18:44 Blood Pressure 140/112 H 03/22/23 18:15 Blood Pressure Position Sitting 03/22/23 18:15 Pulse Oximetry 20 L 03/22/23 18:44 Oxygen Delivery Method Room Air 03/22/23 18:44 Oxygen Flow Rate 2 03/22/23 18:15 Comment chronic oxygen at 2 lpm 03/22/23 18:15 Medical Decision Making Patient has 2 days left of doxycycline which she was prescribed on Monday for early pneumonia. She was out of her oxygen due to power outage earlier today. She is requesting a nebulizer. Denies any chest pain, nausea vomiting diarrhea. No new fever. She is at her baseline. Negative flu COVID. She does have an appointment with PCP follow-up on Monday. She does have everything she needs at home. Patient was given 2 DuoNebs here in the department she reports feeling better prior to her to discharge. She remained hemodynamically stable throughout her the remainder of her stay. Patient was seen here few days ago and had a complete workup. Will plan for discharge for COPD exacerbation. This text was generated using [employer].meation system, please disregard any oddities of phrase or misspellings. Medical Records Medical records reviewed: Yes I reviewed the patient's medical records. Quality:[facility] Related Social Needs: No Data to Display Discharge Plan Disposition Patient Disposition: Home Condition: Stable Discharge Details Clinical Impression: COPD with acute exacerbation Primary Care Provider: Chano Neves ED Provider: Lyn Márquez Home Meds and New Rx's Prescriptions: Continued ondansetron HCl 4 mg tablet 4 mg PO ONCE PRN (Reason: nausea and vomiting) Qty: 1 0RF tiotropium bromide [Spiriva with HandiHaler] 18 mcg capsule, w/inhalation device 1 cap inhalation DAILY Qty: 1 0RF Rx Instructions: puncture 1 cap using device; one dose = 2 inhalations from [facility] B complex-vitamin C-folic acid 0.8 mg tablet 1 tab PO DAILY prednisone 20 mg tablet 40 mg PO DAILY Qty: 10 0RF Rx Instructions: take in the morning with food. take 2 pills daily x 5 days aspirin 81 MG tablet,chewable 81 mg PO DAILY Hold Instructions: out. no resupply atorvastatin 40 mg tablet 20 mg PO DAILY minoxidil 2.5 mg tablet 5 mg PO QHS acetaminophen 325 mg capsule 325 mg PO ONCE PRN amlodipine 10 mg tablet 10 mg PO DAILY Hold Instructions: out. no resupply epinephrine 0.3 mg/0.3 mL auto-injector 0.3 mg IM ONCE PRN Rx Instructions: as a single dose; may repeat once albuterol sulfate [Ventolin HFA] 90 mcg/actuation HFA aerosol inhaler 2 puff inhalation QID PRN (Reason: shortness of breath or wheezing) Qty: 8.5 5RF ipratropium-albuterol 0.5 mg-3 mg(2.5 mg base)/3 mL solution for nebulization 3 ml inhalation Q4H PRN (Reason: shortness of breath or wheezing) Qty: 180 3RF omeprazole 40 mg Capsule,Delayed Release(Dr/Ec) 40 mg PO BID albuterol sulfate 2.5 mg /3 mL (0.083 %) solution for nebulization 2.5 mg inhalation Q6H PRN (Reason: shortness of breath or wheezing) Qty: 3 0 RF Rx Instructions: [facility] trazodone 50 mg tablet 50 mg PO DAILY doxycycline hyclate 100 mg capsule 100 mg PO BID 7 Days Qty: 14 0RF prednisone 20 mg tablet 40 mg PO DAILY Qty: 8 0RF (DME) Aerochamber MV Spacer MISCELLANEOUS No Action trazodone 50 mg tablet 50 mg PO HS Qty: 90 3RF Rx Instructions: 1 TAB HS Discharge Instructions Instructions: COPD (Chronic Obstructive Pulmonary Disease) (ED), Hematoma (ED) Additional Instructions: Please take your medications as previously prescribed at home. Use a long- acting nebulizers once a day. Please follow-up with your PCP as previously prescribed. You are given 2 nebulizers here in the department. No evidence of pneumonia on your chest x-ray. Follow up with primary care provider in 3-5 days. Return to ED sooner if any worsening or concerns. Increase oral fluids. Referrals: Chano Neves MD [Primary Care Provider] - 3 days
[2023-03-22 18:53] VITALS: O2SAT 95
[2023-03-22] MEDS: Albuterol/Ipratropium 3 ML UPD VIAL UPD ×2 (18:53→19:50)
--- NOTE | 2023-03-22 19:34 | DI.VRAD_ITS ---
PROCEDURE INFORMATION: Exam: XR Chest Exam date and time: 03/22/2023 7:11 PM Age: 57 years old Clinical indication: Shortness of breath TECHNIQUE: Imaging protocol: Radiologic exam of the chest. Views: 2 views. Total images: 2 COMPARISON: CR XR CHEST 2V PA LATERAL 03/18/2023 11:46 AM FINDINGS: Lungs: Lungs appear clear. No visible consolidation. No pulmonary masses. Pulmonary vascularity is normal. Pleural spaces: No pleural effusion or pneumothorax. Heart/Mediastinum: Mild cardiomegaly stable. Two cardiac valve prostheses. Bones/joints: No acute osseous abnormalities. IMPRESSION: 1. No acute pulmonary disease. 2. Mild cardiomegaly stable. Dictated and Authenticated by: Ignacia Guerrero MD. Ordering:LUPE Nicholson MD
[2023-03-22 20:00] VITALS: PULSE 78; RESP 18; O2SAT 97
== END 2023-03-22 20:00 | disposition home or self-care (01) ==
PROVIDERS: Emergency Provider Registered Nurse Emergency; PCP Family Medicine
DX: J44.1 Chronic obstructive pulmonary disease with (acute) exacerbation (principal); R06.02 Shortness of breath; J18.9 Pneumonia, unspecified organism; I13.2 Hypertensive heart and chronic kidney disease with heart failure and with stage 5 chronic kidney disease, or end stage renal disease; N18.6 End stage renal disease; I50.810 Right heart failure, unspecified; Z99.2 Dependence on renal dialysis; Z79.82 Long term (current) use of aspirin; Z79.899 Other long term (current) drug therapy; E78.5 Hyperlipidemia, unspecified; F32.A Depression, unspecified; Z72.0 Tobacco use
CPT/HCPCS: 87426; 94640; 99284; 71046; J7620

== ENCOUNTER 2023-05-14 19:35 | Emergency (ER) | payer OTHER, SELFPAY ==
[2023-05-14] VITALS (26 sets, daily range): BP systolic 163–208; BP diastolic 55–159; PULSE 70–84; RESP 15–28; TEMP 37; O2SAT 98
--- NOTE | 2023-05-14 19:15 | RT.EKG_ITS ---
APPROVED REPORT Exam: Resting ECG Reason for Exam: SOB Patient Location: E HR:71 bpm ECG Measurements Heart Rate 71 AXIS LA 181 P 17 QRSd 158 QRS 67 QT 464 T 19 QTc 504 Conclusion Sinus rhythm...normal P axis, V-rate 60- 99 Right bundle branch block...QRSd>120, terminal axis(90,270) NO CHANGE VS 03/18/23
--- NOTE | 2023-05-14 19:39 | W.ED.GENAD ---
Discharge Plan Disposition Patient Disposition: Home Condition: Stable Discharge Details Clinical Impression: Acute exacerbation of chronic obstructive pulmonary disease Primary Care Provider: Chano Neves ED Provider: Judy Álvarez Home Meds and New Rx's Prescriptions: New prednisone 20 mg tablet 40 mg PO DAILY Qty: 10 0RF Continued ondansetron HCl 4 mg tablet 4 mg PO ONCE PRN (Reason: nausea and vomiting) Qty: 1 0RF tiotropium bromide [Spiriva with HandiHaler] 18 mcg capsule, w/inhalation device 1 cap inhalation DAILY Qty: 1 0RF Rx Instructions: puncture 1 cap using device; one dose = 2 inhalations from [facility] B complex-vitamin C-folic acid 0.8 mg tablet 1 tab PO DAILY aspirin 81 MG tablet,chewable 81 mg PO DAILY Hold Instructions: out. no resupply atorvastatin 40 mg tablet 20 mg PO DAILY minoxidil 2.5 mg tablet 5 mg PO QHS acetaminophen 325 mg capsule 325 mg PO ONCE PRN amlodipine 10 mg tablet 10 mg PO DAILY Hold Instructions: out. no resupply epinephrine 0.3 mg/0.3 mL auto-injector 0.3 mg IM ONCE PRN Rx Instructions: as a single dose; may repeat once albuterol sulfate [Ventolin HFA] 90 mcg/actuation HFA aerosol inhaler 2 puff inhalation QID PRN (Reason: shortness of breath or wheezing) Qty: 8.5 5RF ipratropium-albuterol 0.5 mg-3 mg(2.5 mg base)/3 mL solution for nebulization 3 ml inhalation Q4H PRN (Reason: shortness of breath or wheezing) Qty: 180 3RF omeprazole 40 mg Capsule,Delayed Release(Dr/Ec) 40 mg PO BID albuterol sulfate 2.5 mg /3 mL (0.083 %) solution for nebulization 2.5 mg inhalation Q6H PRN (Reason: shortness of breath or wheezing) Qty: 3 0RF Rx Instructions: [facility] trazodone 50 mg tablet 50 mg PO DAILY (DME) Aerochamber MV Spacer MISCELLANEOUS No Action trazodone 50 mg tablet 50 mg PO HS Qty: 90 3RF Rx Instructions: 1 TAB HS Discharge Instructions Instructions: COPD (Chronic Obstructive Pulmonary Disease) (ED) Additional Instructions: take medications as prescribed. Referrals: Chano Neves MD [Primary Care Provider] - HPI General Mode of arrival: EMS. Date/Time Provider Initiated Documentation: 05/14/23 19:39. Limitations to Documentation: no limitations. Information obtained by: patient. HPI Narrative: This is a 57-year-old female patient on dialysis for end-stage renal disease who presents with increased shortness of breath increased cough. Is on oxygen at nighttime but stated she needed to use her oxygen today during the day. She has been using her updraft at home with no improvement in her symptoms. She receives dialysis Monday and has not missed any of her sessions. She has not had fever. She was treated 1 month ago for a COPD exacerbation with antibiotics and steroids. She states she did feel she recovered from that and this is a new illness. She is talking in full sentences. She is oxygenating in the high 90s on oxygen. She does have oxygen at home Related Data Home Medications Medication Instructions Recorded Confirmed aspirin 81 mg chewable tablet 81 mg PO DAILY 05/24/16 04/27/23 inhalational spacing device 01/26/19 04/27/23 (Aerochamber MV spacer) omeprazole 40 mg capsule,delayed 40 mg PO BID 03/18/19 04/27/23 release atorvastatin 40 mg tablet 20 mg PO DAILY 10/24/19 04/27/23 tiotropium bromide 18 mcg capsule 1 cap inhalation DAILY #1 inh 02/16/21 04/27/23 with inhalation device (Spiriva with HandiHaler) minoxidil 2.5 mg tablet 5 mg PO QHS 01/21/22 04/27/23 ondansetron HCl 4 mg tablet 4 mg PO ONCE PRN nausea and 02/08/22 04/27/23 vomiting #1 tab vitamin B complex-vitamin C-folic 1 tab PO DAILY 04/19/22 04/27/23 acid 0.8 mg tablet acetaminophen 325 mg capsule 325 mg PO ONCE PRN 08/23/22 04/27/23 amlodipine 10 mg tablet 10 mg PO DAILY 08/23/22 04/27/23 trazodone 50 mg tablet 50 mg PO HS #90 tab-caps 12/07/22 04/27/23 epinephrine 0.3 mg/0.3 mL 0.3 mg IM ONCE PRN 01/04/23 04/27/23 injection, auto-injector albuterol sulfate 2.5 mg/3 mL 2.5 mg (3 mL) inhalation Q6H PRN 01/16/23 04/27/23 (0.083 %) solution for nebulization shortness of breath or wheezing #3 mL albuterol sulfate 90 mcg/actuation 2 puff inhalation QID PRN 01/24/23 04/27/23 aerosol inhaler (Ventolin HFA) shortness of breath or wheezing #8.5 grams ipratropium 0.5 mg-albuterol 3 mg 3 ml inhalation Q4H PRN shortness 01/25/23 04/27/23 (2.5 mg base)/3 mL nebulization of breath or wheezing #180 mL soln trazodone 50 mg tablet 50 mg PO DAILY 03/18/23 04/27/23 prednisone 20 mg tablet 40 mg (2 x 20 mg) PO DAILY #10 tabs 05/14/23 Previous Rx's Medication Instructions Recorded tiotropium bromide 18 mcg capsule 1 cap inhalation DAILY #1 inh 02/16/21 with inhalation device (Spiriva with HandiHaler) ondansetron HCl 4 mg tablet 4 mg PO ONCE PRN nausea and 02/08/22 vomiting #1 tab trazodone 50 mg tablet 50 mg PO HS #90 tab-caps 12/07/22 albuterol sulfate 2.5 mg/3 mL 2.5 mg (3 mL) inhalation Q6H PRN 01/16/23 (0.083 %) solution for nebulization shortness of breath or wheezing #3 mL albuterol sulfate 90 mcg/actuation 2 puff inhalation QID PRN 01/24/23 aerosol inhaler (Ventolin HFA) shortness of breath or wheezing #8.5 grams ipratropium 0.5 mg-albuterol 3 mg 3 ml inhalation Q4H PRN shortness 01/25/23 (2.5 mg base)/3 mL nebulization of breath or wheezing #180 mL soln prednisone 20 mg tablet 40 mg (2 x 20 mg) PO DAILY #10 tabs 05/14/23 Allergies Allergy/AdvReac Type Severity Reaction Status Date / Time cephalexin monohydrate Allergy Severe trouble Verified 05/14/23 19:41 [From Keflex] breathing colchicine Allergy Unknown Verified 05/14/23 19:41 allopurinol AdvReac Intermediate gout Verified 05/14/23 19:41 breakout erythromycin base AdvReac Intermediate gout Verified 05/14/23 19:41 breakout acetaminophen [From Percocet] AdvReac constipatio Unverified 05/14/23 19:41 n oxycodone [From Percocet] AdvReac constipatio Unverified 05/14/23 19:41 n General AWA: 2 Review of Systems All systems reviewed & are unremarkable except as noted in HPI and below Exam Narrative Exam Narrative: Chronically ill-appearing older than stated age in no acute distress head is atraumatic skin is ashen warm dry well-perfused eyes normal appearance noninjected oral mucosa slightly dry neck is supple with no JVD respirations are even and unlabored her breath sounds are diminished throughout no coarse breath sounds noted faint expiratory wheeze cardiovascular regular rate and rhythm her abdomen is benign she moves all extremities does have a fistula in her left forearm no rashes noted neurologic she is awake alert oriented no focal deficits psychiatric blunted affect normal mood cooperative and pleasant Medical Decision Making Patient presents for increasing shortness of breath most consistent with exacerbation of her COPD. Other differentials could include congestive heart failure ACS pneumonia other viral illness. She did receive a nebulizer DuoNeb en route with improvement in her symptoms. Will provide another DuoNeb here while waiting for chest x-ray viral panel and routine labs to include BNP troponin CBC CMP. All labs and x-ray reviewed and her symptoms most likely due to a COPD exacerbation. Her Pro-Ej is under 0.4 so we will hold off on antibiotics at this point as she just completed a course. I do think it is reasonable to give her a prednisone burst of 40 mg daily for the next 5 days she should call her primary care provider tomorrow for follow-up return sooner for new or worsening symptoms she will attend her dialysis tomorrow as scheduled and give her PCP a call she is stable for discharge to home for outpatient treatment of COPD exacerbation Medical Records Medical records reviewed: Yes I reviewed the patient's medical records. Imaging Data Radiologic Study: Imaging: X-Ray Radiologist's impression: Exam(s) PROCEDURE INFORMATION: Exam: XR Chest Exam date and time: 05/14/2023 8:05 PM Age: 57 years old Clinical indication: Cough TECHNIQUE: Imaging protocol: Radiologic exam of the chest. Views: 2 views. COMPARISON: CR XR CHEST 2V PA LATERAL 03/22/2023 7:11 PM FINDINGS: Lungs: Bilateral moderate hyperinflation which could reflect air trapping from an upper respiratory infection or reactive airway disease. Differential diagnosis would include emphysema or COPD. Pleural spaces: No pleural effusion. No pneumothorax. Heart/Mediastinum: Moderate cardiac enlargement. Previous open-heart surgery for aortic and mitral valve replacement. Bones/joints: Unremarkable. IMPRESSION: 1. Hyperinflation which could reflect air trapping from an upper respiratory infection or emphysema/COPD. 2. No acute infiltrates. 3. No acute pleural effusion. 4. Cardiomegaly. Previous open-heart surgery for aortic valve and mitral valve replacement. Dictated and Authenticated by: Og Quarles MD. Ordering:KAYLA Kim MD Lab Data Lab results reviewed: Yes I reviewed the patient's lab results. Labs: Laboratory Results - last 24 hr 05/14/23 19:57 WBC 4.85 RBC 3.96 Hgb 11.9 Hct 38.9 MCV 98 H MCH 30.1 MCHC 30.6 L RDW 16.0 H Plt Count 123 L MPV 12.2 H Immature Gran % 0.6 Neutrophils % 61.2 Lymphocytes % 19.0 Monocytes % 8.9 Eosinophils % 8.7 Basophils % 1.6 Nucleated RBC % 0.0 Absolute Neutrophils 2.97 Absolute Lymphocytes 0.92 L Absolute Monocytes 0.43 Absolute Eosinophils 0.42 Absolute Basophils 0.08 Sodium 142 Potassium 4.5 Chloride 97 L Carbon Dioxide 31.3 Anion Gap 13.7 H BUN 62 H Creatinine 8.1 H* Est GFR (CKD-EPI 2020) 5.27 Glucose 127 H Calcium 8.1 L Magnesium 2.3 Total Bilirubin 0.8 AST 24 ALT 21 Alkaline Phosphatase 228 H Troponin I < 50 NT-Pro-B Natriuret Pep 21955 H Total Protein 7.4 Albumin 4.1 Procalcitonin 0.4 COVID-19 Source Nasopharynx SARS-CoV-2 (PCR) Negative Influenza Type A (PCR) Negative Influenza Type B (PCR) Negative RSV (PCR) Negative Quality:SDOH Health Related Social Needs: No Data to Display PFSH All Active Problems (Updated 05/14/23 @ 21:48 by Judy Álvarez NP) Acute exacerbation of chronic obstructive pulmonary disease (Acute) Shoulder pain, right (Acute) Vaginal bleeding (Acute) Thrombocytopenia (Chronic) Angioedema (Acute) Vaginal lesion (Acute) ESRD on dialysis (Chronic) On hemodialysis currently using central catheter-nephrology at [facility] receives dialysis at [facility] Depression (Acute 08/28/14) Gallstones (Acute) COPD (chronic obstructive pulmonary disease) (Chronic) Pulmonary at [facility] Central venous catheter in place (Acute ~10/29/19) [facility] [place], right subclavian-dialysis Tricuspid regurgitation (Acute) s/p tricuspid valve replacement 02/2020, bovine Cirrhosis, alcoholic (Acute) POLST (Physician Orders for Life-Sustaining Treatment) (Acute) COLST completed 02/13/2020, DNR/DNI. Hemorrhage of arteriovenous fistula (Acute) Ventral hernia (Acute) Hypertension (Chronic) Aortic valve replaced (Acute) Bovine-with [facility] Personal history of nicotine dependence (Acute) 02/2021 Tobacco abuse (Acute) Lung nodule, solitary (Acute) Hemoptysis (Acute) Open abdominal wall wound (Acute) Fever (Acute) Neck pain (Acute) Right upper quadrant abdominal pain (Acute) Medical History Axillary lymphadenopathy Secondary hyperparathyroidism (of renal origin) Right heart failure CVD (cardiovascular disease) Macular degeneration of left eye (~10/17/19) [facility] [place] Nail dystrophy Cannabis dependence Cyst of ovary (08/20/12) Depression (09/14/12) Recurrent urinary tract infection Upper GI bleed (05/17/14) 05/15/14 [facility] [place] EGD, HH, esophagitis, gastric ulcer and duodenitis Umbilical hernia repaired 1995,1997,2001,2003 Hyperparathyroidism, unspecified (02/09/11) 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[facility] [place] Hyperlipidemia Gastroesophageal reflux disease with esophagitis (02/03/15) Essential hypertension (01/16/13) severe and labile Diverticulitis of large intestine without perforation or abscess with bleeding Bleeding hemorrhoids (01/08/13) rectal bleeding (colonoscopy [facility] [place] 01/01/13 internal hemorrhoids and diverticuli) Surgical History H/O aortic valve replacement History of kidney transplant TRANSPLANT, KIDNEY (~1997) LEFT Abdominal hysterectomy (~2006) s/p hyst, but cervix still present and needs yearly PAP due to transplant Repair of umbilical hernia 1995,1997,2001,2003 Family History Mother Essential hypertension Personal history of malignant neoplasm KIDNEY Heart disease Pulmonary emphysema Father Personal history of malignant neoplasm Pulmonary emphysema Brother Hyperlipidemia Brother Hyperlipidemia Brother No problems noted. Social History Smoking/Tobacco Use Status: Current every day Tobacco Type: cigarettes Smoking risk assessment performed?: Yes Alcohol Intake: former Drug use: Daily Substance use type: marijuana Details: mostly edibles Housing: apartment Current gender identity: female Do you feel safe at home: Yes Do you feel safe in your relationship?: Yes
--- NOTE | 2023-05-14 19:45 | DI.RAD_ITS ---
Exam(s) XR CHEST 2V PA LATERAL EXAM: XR CHEST 2V PA LATERAL CLINICAL HISTORY: shortness of breath TECHNIQUE: 2D digital imaging was performed. COMPARISON: CR,XR XR CHEST 2V PA LATERAL from 03/18/2023 CR,XR XR CHEST 2V PA LATERAL from 03/22/2023 FINDINGS: Monitoring leads and oxygen tubing overlie the chest. HEART: Normal size. Aorta: Dilated. Aortic and mitral valve prostheses. PULMONARY VASCULATURE: Normal. LUNGS: No focal infiltrate or overt pulmonary edema. PLEURAL SPACE: No pleural effusion or pneumothorax. BONE:Sternal wires. Soft tissues: Unremarkable. IMPRESSION: No acute abnormality. DATA REPOSITORY: RADIATION DOSE DELIVERED:
[2023-05-14 20:07] LABS: Abs Immature Grans 0.03 10^3/uL (0.0-0.06); Absolute Basophil Count 0.08 10^3/uL (0.0-0.2); Absolute Eosinophil Count 0.42 10^3/uL (0.0-0.7); Absolute Lymphocyte Count 0.92 10^3/uL (1.2-3.4); Absolute Monocyte Count 0.43 10^3/uL (0.1-0.8); Absolute Neutrophil Count 2.97 10^3/uL (1.2-6.7); Basophils % 1.6; Eosinophils % 8.7; HCT 38.9 % (36.0-46.0); HGB 11.9 g/dL (11.2-15.7); Immature Grans % 0.6; MCH 30.1 pg (27.0-33.0); MCHC 30.6 % (32.0-36.0); MCV 98 fL (80-95); MPV 12.2 fL (8.0-11.0); Monocytes % 8.9; Neutrophils % 61.2; Platelet Count 123 10^3/uL (130-400); RBC 3.96 10^6/uL (3.93-5.22); RDW-SD 57.3 fL; WBC 4.85 10^3/uL (4.4-10.8)
[2023-05-14 20:24] LABS: Troponin I < 50 ng/L (< or =60)
[2023-05-14 20:31] LABS: ALT 21 U/L (14-59); AST 24 U/L (15-37); Albumin 4.1 g/dL (3.4-5.0); Alkaline Phosphatase 228 U/L (46-116); Anion Gap 13.7 mmol/L (3-11); BUN 62 mg/dL (7-18); Bilirubin, Total 0.8 mg/dL (0.2-1.0); CO2 31.3 mmol/L (21.0-32.0); Calcium 8.1 mg/dL (8.5-10.1); Chloride 97 mmol/L (98-107); Estimated GFR 5.27 (mL/min/1.73m2); Glucose 127 mg/dL (74-106); Magnesium 2.3 mg/dL (1.8-2.4); Potassium 4.5 mmol/L (3.5-5.1); Sodium 142 mmol/L (136-145); Total Protein 7.4 g/dL (6.4-8.2)
[2023-05-14 20:33] LABS: CREATININE 8.1 mg/dL (0.55-1.02)
[2023-05-14 20:34] LABS: Procalcitonin 0.4 ng/mL
[2023-05-14 20:39] LABS: NT-proBNP 31331 pg/mL (<300)
[2023-05-14 20:40] LABS: COVID-19 PCR Negative (Negative); Influenza A PCR Negative (Negative); Influenza B PCR Negative (Negative); RSV PCR Negative (Negative)
--- NOTE | 2023-05-14 20:41 | NUR.NOTE ---
After PTs nebulizer treatment was complete PT was trialed on room air. PTs SPO2% dropped to the mis 80s. PTs was started on 2L NC. PTs SPO2% is maintaining in the low 90sNursing Note:
[2023-05-14 20:43] LABS: Source Nasopharynx
--- NOTE | 2023-05-14 21:25 | DI.VRAD_ITS ---
PROCEDURE INFORMATION: Exam: XR Chest Exam date and time: 05/14/2023 8:05 PM Age: 57 years old Clinical indication: Cough TECHNIQUE: Imaging protocol: Radiologic exam of the chest. Views: 2 views. COMPARISON: CR XR CHEST 2V PA LATERAL 03/22/2023 7:11 PM FINDINGS: Lungs: Bilateral moderate hyperinflation which could reflect air trapping from an upper respiratory infection or reactive airway disease. Differential diagnosis would include emphysema or COPD. Pleural spaces: No pleural effusion. No pneumothorax. Heart/Mediastinum: Moderate cardiac enlargement. Previous open-heart surgery for aortic and mitral valve replacement. Bones/joints: Unremarkable. IMPRESSION: 1. Hyperinflation which could reflect air trapping from an upper respiratory infection or emphysema/COPD. 2. No acute infiltrates. 3. No acute pleural effusion. 4. Cardiomegaly. Previous open-heart surgery for aortic valve and mitral valve replacement. Dictated and Authenticated by: Og Quarles MD. Ordering:KAYLA Kim MD
[2023-05-14] MEDS: Albuterol/Ipratropium 3 ML UPD VIAL (21:32)
[2023-05-14] MEDS: predniSONE 20 MG TAB 40 MG PO (21:58)
== END 2023-05-14 22:15 | disposition home or self-care (01) ==
PROVIDERS: Emergency Provider Nurse Practitioner Acute Care; PCP Family Medicine
DX: J44.1 Chronic obstructive pulmonary disease with (acute) exacerbation (principal); I12.0 Hypertensive chronic kidney disease with stage 5 chronic kidney disease or end stage renal disease; N18.6 End stage renal disease; I25.10 Atherosclerotic heart disease of native coronary artery without angina pectoris; E21.0 Primary hyperparathyroidism; Z95.2 Presence of prosthetic heart valve; Z11.52 Encounter for screening for COVID-19; Z79.82 Long term (current) use of aspirin; Z99.2 Dependence on renal dialysis; Z94.0 Kidney transplant status
CPT/HCPCS: 80053; 84145; 87637; 93005; 99284; 71046; 83735; 83880; 84484; 85025; 93010; J7512; J7620

== ENCOUNTER 2023-06-30 15:23 | Outpatient (REF) | payer OTHER, SELFPAY | END 2023-06-30 15:24 | disposition home or self-care (01) | LOC: LBN 15:23 | PROVIDERS: PCP Family Medicine; Visit Provider Family Medicine | DX: N76.0 Acute vaginitis (principal) | CPT/HCPCS: 87480; 87510; 87660 ==

== ENCOUNTER 2023-07-24 14:13 | Emergency (ER) | payer OTHER, SELFPAY ==
[2023-07-24] VITALS (25 sets, daily range): BP systolic 126–177; BP diastolic 44–118; PULSE 77–102; RESP 6–24; TEMP 36.3; O2SAT 90–98
--- NOTE | 2023-07-24 14:00 | RT.EKG_ITS ---
APPROVED REPORT Exam: Resting ECG Reason for Exam: Difficulty Breathing Patient Location: E HR:82 bpm ECG Measurements Heart Rate [address] 129 P 49 QRSd 159 QRS 74 QT 452 T 28 QTc 528 Conclusion Sinus rhythm...normal P axis, V-rate 60- 99 Right bundle branch block...QRSd>120, terminal axis(90,270)
--- NOTE | 2023-07-24 14:29 | ED.GENADUL_ITS ---
Discharge Plan Disposition Patient Disposition: Home Condition: Stable Discharge Details Clinical Impression: COPD with acute exacerbation, Shortness of breath Primary Care Provider: Chano Neves ED Provider: Aaron Puente Home Meds and New Rx's Prescriptions: New doxycycline hyclate 100 mg tablet 100 mg PO BID Qty: 14 0RF Continued tiotropium bromide [Spiriva with HandiHaler] 18 mcg capsule, w/inhalation device 1 cap inhalation DAILY Qty: 1 0RF Rx Instructions: puncture 1 cap using device; one dose = 2 inhalations from [facility] aspirin 81 MG tablet,chewable 81 mg PO DAILY Hold Instructions: out. no resupply atorvastatin 40 mg tablet 20 mg PO DAILY epinephrine 0.3 mg/0.3 mL auto-injector 0.3 mg IM ONCE PRN Rx Instructions: as a single dose; may repeat once albuterol sulfate [Ventolin HFA] 90 mcg/actuation HFA aerosol inhaler 2 puff inhalation QID PRN (Reason: shortness of breath or wheezing) Qty: 8.5 5RF ipratropium-albuterol 0.5 mg-3 mg(2.5 mg base)/3 mL solution for nebulization 3 ml inhalation Q4H PRN (Reason: shortness of breath or wheezing) Qty: 180 3RF minoxidil 2.5 mg tablet 2.5 mg PO QHS omeprazole 40 mg Capsule,Delayed Release(Dr/Ec) 40 mg PO BID albuterol sulfate 2.5 mg /3 mL (0.083 %) solution for nebulization 2.5 mg inhalation Q6H PRN (Reason: shortness of breath or wheezing) Qty: 3 0RF Rx Instructions: [facility] (DME) Aerochamber MV Spacer MISCELLANEOUS No Action trazodone 50 mg tablet 50 mg PO HS PRN Rx Instructions: 1 TAB HS Discharge Instructions Additional Instructions: Your x-ray and blood work did not show any emergent or concerning findings at this time from her baseline Follow-up with your primary care provider within 1 week especially if still having symptoms If you feel more ill, have worsening shortness of breath or severe chest pain return to the emergency department for reevaluation HPI General Mode of arrival: EMS . Date/Time Provider Initiated Documentation: 07/24/23 14:15 . Limitations to Documentation: no limitations . Information obtained by: patient . History of Present Illness 58 year old F presents to the emergency department with the chief complaint of Difficulty breathing, described as moderate, Patient started experiencing this day(s) (1) and it has been constant. Rest improves symptom(s), Movement worsens symptoms . Patient notes chest pain and cough; denies fever/chills. Patient did receive the following treatments prior to arrival, none Related Data Home Medications Medication Instructions Recorded Confirmed aspirin 81 mg chewable tablet 81 mg PO DAILY 05/24/16 07/24/23 inhalational spacing device 01/26/19 07/20/23 (Aerochamber MV spacer) omeprazole 40 mg capsule,delayed 40 mg PO BID 03/18/19 07/24/23 release atorvastatin 40 mg tablet 20 mg PO DAILY 10/24/19 07/24/23 tiotropium bromide 18 mcg capsule 1 cap inhalation DAILY #1 inh 02/16/21 07/24/23 with inhalation device (Spiriva with HandiHaler) epinephrine 0.3 mg/0.3 mL 0.3 mg IM ONCE PRN 01/04/23 07/24/23 injection, auto-injector albuterol sulfate 2.5 mg/3 mL 2.5 mg (3 mL) inhalation Q6H PRN 01/16/23 07/24/23 (0.083 %) solution for nebulization shortness of breath or wheezing #3 mL albuterol sulfate 90 mcg/actuation 2 puff inhalation QID PRN 01/24/23 07/24/23 aerosol inhaler (Ventolin HFA) shortness of breath or wheezing #8.5 grams ipratropium 0.5 mg-albuterol 3 mg 3 ml inhalation Q4H PRN shortness 06/27/23 07/24/23 (2.5 mg base)/3 mL nebulization of breath or wheezing #180 mL soln minoxidil 2.5 mg tablet 2.5 mg PO QHS 06/30/23 07/24/23 trazodone 50 mg tablet 50 mg PO HS PRN 06/30/23 07/20/23 doxycycline hyclate 100 mg tablet 100 mg PO BID #14 tabs 07/24/23 Previous Rx's Medication Instructions Recorded tiotropium bromide 18 mcg capsule 1 cap inhalation DAILY #1 inh 02/16/21 with inhalation device (Spiriva with HandiHaler) albuterol sulfate 2.5 mg/3 mL 2.5 mg (3 mL) inhalation Q6H PRN 01/16/23 (0.083 %) solution for nebulization shortness of breath or wheezing #3 mL albuterol sulfate 90 mcg/actuation 2 puff inhalation QID PRN 01/24/23 aerosol inhaler (Ventolin HFA) shortness of breath or wheezing #8.5 grams ipratropium 0.5 mg-albuterol 3 mg 3 ml inhalation Q4H PRN shortness 06/27/23 (2.5 mg base)/3 mL nebulization of breath or wheezing #180 mL soln doxycycline hyclate 100 mg tablet 100 mg PO BID #14 tabs 07/24/23 Allergies Allergy/AdvReac Type Severity Reaction Status Date / Time cephalexin monohydrate Allergy Severe trouble Verified 07/24/23 14:51 [From Keflex] breathing colchicine Allergy Unknown Verified 07/24/23 14:51 allopurinol AdvReac Intermediate gout Verified 07/24/23 14:51 breakout erythromycin base AdvReac Intermediate gout Verified 07/24/23 14:51 breakout oxycodone [From Percocet] AdvReac constipatio Unverified 07/24/23 14:51 n General Stated Complaint: SOB AWA: 3 Review of Systems All systems reviewed & are unremarkable except as noted in HPI and below Constitutional Constitutional: Denies chills, Denies fever(s) and Denies weakness Cardiovascular Cardiovascular: Reports chest pain and Reports dyspnea Respiratory Respiratory: Reports cough and Reports dyspnea Gastrointestinal Gastrointestinal: Denies abdominal pain, Denies nausea and Denies vomiting Musculoskeletal Musculoskeletal: Denies joint swelling Neurologic Neurologic: Denies weakness Course Vital Signs Vital signs: Vital Signs Temperature 36.3 C L 07/24/23 14:13 Pulse 84 07/24/23 14:13 Respiratory Rate 22 07/24/23 14:13 Blood Pressure 177/118 H 07/24/23 14:13 Pulse Oximetry 95 07/24/23 14:13 Temperature 36.3 C L 07/24/23 14:13 Temperature Source Skin 07/24/23 14:13 Pulse 85 07/24/23 14:21 Respiratory Rate 20 07/24/23 14:22 Respiratory Effort Short of Breath, Labored 07/24/23 14:22 Respiratory Depth Deep 07/24/23 14:22 Respiratory Pattern Tachypnea 07/24/23 14:22 Blood Pressure 177/118 H 07/24/23 14:13 Blood Pressure Position Sitting 07/24/23 14:13 Pulse Oximetry 94 07/24/23 14:21 Oxygen Delivery Method Nasal Cannula 07/24/23 14:21 Oxygen Flow Rate 2 07/24/23 14:21 Pain Level 0 07/24/23 14:13 Medical Decision Making 4-year-old female with a history of COPD on oxygen at home, end-stage renal disease on dialysis, who comes in with shortness of breath since last night along with a cough and when she does cough has chest pain. She denies any leg swelling, calf tenderness, fevers, chills. She went to dialysis as normal today and came here after. She is alert and oriented on arrival, is speaking in 4-5 word sentences, does have rhonchi in both lungs on exam diffusely. No JVD, no leg swelling, soft nontender abdomen. Suspect COPD exacerbation will treat with DuoNeb and Solu-Medrol, will also obtain a chest x-ray to evaluate for pneumonia, she says her chest pain is when she coughs but will also obtain troponin. Her exam is consistent with COPD, no tearing back pain to suggest a dissection and has no evidence of DVT on exam or pleuritic chest pain so doubt PE. Patient feels significantly better, speaking in full sentences and only has mild rhonchi at the bases bilaterally, labs unremarkable from baseline, x-ray unremarkable. She is stable for discharge and states she already has prednisone from her PCP that she got yesterday but has not started. Will initiate on doxycycline as well due to increased cough. Advised follow-up with PCP and return precautions given Differential Diagnosis Differential Diagnosis: COPD, pneumonia Medical Records Medical records reviewed: Yes I reviewed the patient's medical records. Imaging Data Radiologic Study: Attestation: I personally reviewed and interpreted this imaging study as follows: Imaging: X-Ray Radiologist's impression: No acute findings Lab Data Lab results reviewed: Yes I reviewed the patient's lab results. ECG Data Attestation: I personally reviewed and interpreted this ECG (s) as follows: Prior ECG tracings: available for review Interpretation: Sinus rhythm, rate of 82, right bundle branch block, no STEMI Quality:SDOH Health Related Social Needs: No Data to Display PFSH All Active Problems (Updated 07/24/23 @ 15:45 by Aaron Puente MD) Shortness of breath (Acute) COPD with acute exacerbation (Acute) Anxiety disorder (Acute) Shoulder pain, right (Acute) Vaginal bleeding (Acute) Thrombocytopenia (Chronic) Angioedema (Acute) Vaginal lesion (Acute) ESRD on dialysis (Chronic) On hemodialysis currently using central catheter-nephrology at [facility] receives dialysis at [facility] Depression (Acute 08/28/14) Gallstones (Acute) COPD (chronic obstructive pulmonary disease) (Chronic) Pulmonary at [facility] Central venous catheter in place (Acute ~10/29/19) [facility], right subclavian-dialysis Tricuspid regurgitation (Acute) s/p tricuspid valve replacement 02/2020, bovine Cirrhosis, alcoholic (Acute) POLST (Physician Orders for Life-Sustaining Treatment) (Acute) COLST completed 02/13/2020, DNR/DNI. Hemorrhage of arteriovenous fistula (Acute) Ventral hernia (Acute) Hypertension (Chronic) Aortic valve replaced (Acute) Bovine-with [facility] Personal history of nicotine dependence (Acute) 02/2021 Tobacco abuse (Acute) Lung nodule, solitary (Acute) Hemoptysis (Acute) Open abdominal wall wound (Acute) Fever (Acute) Neck pain (Acute) Right upper quadrant abdominal pain (Acute) Medical History Axillary lymphadenopathy Secondary hyperparathyroidism (of renal origin) Right heart failure CVD (cardiovascular disease) Macular degeneration of left eye (~10/17/19) [facility] Nail dystrophy Cannabis dependence Cyst of ovary (08/20/12) Depression (09/14/12) Recurrent urinary tract infection Upper GI bleed (05/17/14) 05/15/14 [facility] EGD, HH, esophagitis, gastric ulcer and duodenitis Umbilical hernia repaired 1995,1997,2001,2003 Hyperparathyroidism, unspecified (02/09/11) 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[facility] Hyperlipidemia Gastroesophageal reflux disease with esophagitis (02/03/15) Essential hypertension (01/16/13) severe and labile Diverticulitis of large intestine without perforation or abscess with bleeding Bleeding hemorrhoids (01/08/13) rectal bleeding (colonoscopy [facility] 01/01/13 internal hemorrhoids and diverticuli) Surgical History H/O aortic valve replacement History of kidney transplant TRANSPLANT, KIDNEY (~1997) LEFT Abdominal hysterectomy (~2006) s/p hyst, but cervix still present and needs yearly PAP due to transplant Repair of umbilical hernia 1995,1997,2001,2003 Family History Mother Essential hypertension Personal history of malignant neoplasm KIDNEY Heart disease Pulmonary emphysema Father Personal history of malignant neoplasm Pulmonary emphysema Brother Hyperlipidemia Brother Hyperlipidemia Brother No problems noted. Social History Smoking/Tobacco Use Status: Current every day Tobacco Type: cigarettes Smoking risk assessment performed?: Yes Alcohol Intake: former Drug use: Daily Substance use type: marijuana Details: mostly edibles Housing: apartment Current gender identity: female Do you feel safe at home: Yes Do you feel safe in your relationship?: Yes
[2023-07-24] MEDS: Albuterol/Ipratropium 3 ML UPD VIAL UPD ×3 (14:43→16:01)
[2023-07-24] MEDS: methylPREDNISolone SUCC 125 MG VIAL IVP (14:44)
--- NOTE | 2023-07-24 14:45 | DI.RAD_ITS ---
Exam(s) XR PORTABLE CHEST AP EXAM: XR PORTABLE CHEST AP CLINICAL HISTORY: dyspnea TECHNIQUE: 2D digital imaging was performed of the chest. One image was obtained. An AP view was ob tained. COMPARISON: CR,XR XR CHEST 2V PA LATERAL from 05/14/2023 FINDINGS: MEDIASTINUM: Normal. HEART: Cardiomegaly. Cardiac valvular prostheses are again seen. PULMONARY VASCULATURE: Normal. LUNGS: The lungs are hyperinflated suggesting underlying COPD. No focal consolidating infiltrates ar e seen. PLEURAL SPACE: No pleural effusion or pneumothorax. BONE:Within normal limits for the patient's age. OTHER FINDINGS:Normal. IMPRESSION: No acute pulmonary findings. DATA REPOSITORY: RADIATION DOSE DELIVERED:
[2023-07-24 14:48] LABS: BE (Venous) 11 mmol/L (-2-3); HCO3 (Venous) 36 mmol/L (23-28); O2 Sat (Venous) 81 %; TCO2 (Venous) 32 mmol/L (24-29); pH (Venous) 7.37 (7.31-7.41); pO2 (Venous) 49 mmHg
[2023-07-24 14:49] LABS: Abs Immature Grans 0.01 10^3/uL (0.0-0.06); Absolute Basophil Count 0.05 10^3/uL (0.0-0.2); Absolute Eosinophil Count 0.59 10^3/uL (0.0-0.7); Absolute Lymphocyte Count 0.57 10^3/uL (1.2-3.4); Absolute Monocyte Count 0.37 10^3/uL (0.1-0.8); Absolute Neutrophil Count 2.81 10^3/uL (1.2-6.7); Basophils % 1.1 %; Eosinophils % 13.4 %; HCT 43.4 % (36.0-46.0); HGB 13.9 g/dL (11.2-15.7); Immature Grans % 0.2 %; MCH 30.6 pg (27.0-33.0); MCV 96 fL (80-95); Monocytes % 8.4 %; Neutrophils % 63.9 %; RBC 4.54 10^6/uL (3.93-5.22); RDW 13.8 % (11.7-14.6); RDW-SD 48.4 fL
[2023-07-24 14:50] LABS: pCO2 (Venous) 63 mmHg (41-51)
[2023-07-24 15:03] LABS: INR 1.2 (0.9-1.1); PTT Activated 27.6 sec (23.6-32.8); Prothrombin Time 11.9 sec (9.1-11.1)
[2023-07-24 15:06] LABS: Platelet Count 103 10^3/uL (130-400)
[2023-07-24 15:07] LABS: Diff Comment PLT Morph Reviewed; RBC Morphology Normal
[2023-07-24 15:15] LABS: ALT 25 U/L (14-59); AST 27 U/L (15-37); Albumin 4.8 g/dL (3.4-5.0); Alkaline Phosphatase 186 U/L (46-116); Anion Gap 10.9 mmol/L (3-11); BUN 15 mg/dL (7-18); Bilirubin, Total 0.7 mg/dL (0.2-1.0); CO2 35.1 mmol/L (21.0-32.0); Calcium 8.2 mg/dL (8.5-10.1); Chloride 95 mmol/L (98-107); Estimated GFR 13.42 (mL/min/1.73m2); Glucose 89 mg/dL (74-106); Magnesium 1.8 mg/dL (1.8-2.4); Potassium 3.7 mmol/L (3.5-5.1); Sodium 141 mmol/L (136-145); TSH (W/Ref FT4) 1.69 uIU/mL (0.36-3.74); Total Protein 8.7 g/dL (6.4-8.2); Troponin I < 50 ng/L (< or =60)
[2023-07-24 15:17] LABS: CREATININE 3.7 mg/dL (0.55-1.02)
[2023-07-24 15:40] LABS: COVID-19 PCR Negative (Negative); Influenza A PCR Negative (Negative); Influenza B PCR Negative (Negative); RSV PCR Negative (Negative)
[2023-07-24 15:41] LABS: Source Nasopharynx
== END 2023-07-24 16:43 | disposition home or self-care (01) ==
PROVIDERS: Emergency Provider Emergency Medicine; PCP Family Medicine
DX: J44.1 Chronic obstructive pulmonary disease with (acute) exacerbation (principal); I12.0 Hypertensive chronic kidney disease with stage 5 chronic kidney disease or end stage renal disease; N18.6 End stage renal disease; E78.5 Hyperlipidemia, unspecified; I45.19 Other right bundle-branch block; Z95.2 Presence of prosthetic heart valve; Z79.82 Long term (current) use of aspirin; Z99.2 Dependence on renal dialysis; Z94.0 Kidney transplant status; Z99.81 Dependence on supplemental oxygen; F17.210 Nicotine dependence, cigarettes, uncomplicated
CPT/HCPCS: 36415; 80053; 82805; 87637; 93005; 94640; 96374; 99285; 71045; 83735; 84443; 84484; 85025; 85610; 85730; 93010; 99284; J2919; J7620

== ENCOUNTER 2023-08-28 13:23 | Emergency (ER) | payer OTHER, SELFPAY ==
[2023-08-28] VITALS (14 sets, daily range): BP systolic 152–202; BP diastolic 45–96; PULSE 63–90; RESP 5–22; TEMP 36.1–36.7; O2SAT 90–100
--- NOTE | 2023-08-28 13:30 | RT.EKG_ITS ---
APPROVED REPORT Exam: Resting ECG Reason for Exam: diffiulty breathing Patient Location: E HR:70 bpm ECG Measurements Heart Rate 70 AXIS NJ 153 P 16 QRSd 165 QRS 60 QT 474 T 14 QTc 511 Conclusion Sinus rhythm...normal P axis, V-rate 60- 99 Right bundle branch block...QRSd>120, terminal axis(90,270)
--- NOTE | 2023-08-28 13:44 | W.ED.GENAD ---
Discharge Plan Disposition Patient Disposition: Home Condition: Stable Discharge Details Clinical Impression: Shortness of breath, COPD exacerbation Primary Care Provider: Chano Neves ED Provider: Aaron Puente Home Meds and New Rx's Prescriptions: New prednisone 20 mg tablet 60 mg PO DAILY 4 Days Qty: 12 0RF Continued tiotropium bromide [Spiriva with HandiHaler] 18 mcg capsule, w/inhalation device 1 cap inhalation DAILY Qty: 1 0RF Rx Instructions: puncture 1 cap using device; one dose = 2 inhalations from [facility] aspirin 81 MG tablet,chewable 81 mg PO DAILY Hold Instructions: out. no resupply atorvastatin 40 mg tablet 20 mg PO DAILY epinephrine 0.3 mg/0.3 mL auto-injector 0.3 mg IM ONCE PRN Rx Instructions: as a single dose; may repeat once albuterol sulfate [Ventolin HFA] 90 mcg/actuation HFA aerosol inhaler 2 puff inhalation QID PRN (Reason: shortness of breath or wheezing) Qty: 8.5 5RF ipratropium-albuterol 0.5 mg-3 mg(2.5 mg base)/3 mL solution for nebulization 3 ml inhalation Q4H PRN (Reason: shortness of breath or wheezing) Qty: 180 3RF minoxidil 2.5 mg tablet 2.5 mg PO QHS omeprazole 40 mg Capsule,Delayed Release(Dr/Ec) 40 mg PO BID albuterol sulfate 2.5 mg /3 mL (0.083 %) solution for nebulization 2.5 mg inhalation Q6H PRN (Reason: shortness of breath or wheezing) Qty: 3 0RF Rx Instructions: [facility] doxycycline hyclate 100 mg tablet 100 mg PO BID Qty: 14 0RF (DME) Aerochamber MV Spacer MISCELLANEOUS No Action trazodone 50 mg tablet 50 mg PO HS PRN Rx Instructions: 1 TAB HS Discharge Instructions Additional Instructions: Follow-up with your primary care provider within 1 week If you feel more ill or have worsening shortness of breath despite using a nebulizers return to the emergency department for reevaluation HPI General Date/Time Provider Initiated Documentation: 08/28/23 13:27. Limitations to Documentation: no limitations. Information obtained by: patient. History of Present Illness 58 year old F presents to the emergency department with the chief complaint of Cough, described as moderate, Patient started experiencing this day(s) (1) and it has been constant. No relieving factors improve symptom(s), No exacerbating factors reported . Patient notes shortness of breath; denies chest pain and fever/chills. Patient did receive the following treatments prior to arrival, none Related Data Home Medications Medication Instructions Recorded Confirmed aspirin 81 mg chewable tablet 81 mg PO DAILY 05/24/16 08/28/23 inhalational spacing device 01/26/19 08/28/23 (Aerochamber MV spacer) omeprazole 40 mg capsule,delayed 40 mg PO BID 03/18/19 08/28/23 release atorvastatin 40 mg tablet 20 mg PO DAILY 10/24/19 08/28/23 tiotropium bromide 18 mcg capsule 1 cap inhalation DAILY #1 inh 02/16/21 08/28/23 with inhalation device (Spiriva with HandiHaler) epinephrine 0.3 mg/0.3 mL 0.3 mg IM ONCE PRN 01/04/23 08/28/23 injection, auto-injector albuterol sulfate 2.5 mg/3 mL 2.5 mg (3 mL) inhalation Q6H PRN 01/16/23 08/28/23 (0.083 %) solution for nebulization shortness of breath or wheezing #3 mL albuterol sulfate 90 mcg/actuation 2 puff inhalation QID PRN 01/24/23 08/28/23 aerosol inhaler (Ventolin HFA) shortness of breath or wheezing #8.5 grams ipratropium 0.5 mg-albuterol 3 mg 3 ml inhalation Q4H PRN shortness 06/27/23 08/28/23 (2.5 mg base)/3 mL nebulization of breath or wheezing #180 mL soln minoxidil 2.5 mg tablet 2.5 mg PO QHS 06/30/23 08/28/23 trazodone 50 mg tablet 50 mg PO HS PRN 06/30/23 07/25/23 doxycycline hyclate 100 mg tablet 100 mg PO BID #14 tabs 08/28/23 prednisone 20 mg tablet 60 mg (3 x 20 mg) PO DAILY 4 days 08/28/23 #12 tabs Previous Rx's Medication Instructions Recorded tiotropium bromide 18 mcg capsule 1 cap inhalation DAILY #1 inh 02/16/21 with inhalation device (Spiriva with HandiHaler) albuterol sulfate 2.5 mg/3 mL 2.5 mg (3 mL) inhalation Q6H PRN 01/16/23 (0.083 %) solution for nebulization shortness of breath or wheezing #3 mL albuterol sulfate 90 mcg/actuation 2 puff inhalation QID PRN 01/24/23 aerosol inhaler (Ventolin HFA) shortness of breath or wheezing #8.5 grams ipratropium 0.5 mg-albuterol 3 mg 3 ml inhalation Q4H PRN shortness 06/27/23 (2.5 mg base)/3 mL nebulization of breath or wheezing #180 mL soln doxycycline hyclate 100 mg tablet 100 mg PO BID #14 tabs 08/28/23 prednisone 20 mg tablet 60 mg (3 x 20 mg) PO DAILY 4 days 08/28/23 #12 tabs Allergies Allergy/AdvReac Type Severity Reaction Status Date / Time cephalexin monohydrate Allergy Severe trouble Verified 08/28/23 13:28 [From Keflex] breathing colchicine Allergy Unknown Verified 08/28/23 13:28 allopurinol AdvReac Intermediate gout Verified 08/28/23 13:28 breakout erythromycin base AdvReac Intermediate gout Verified 08/28/23 13:28 breakout oxycodone [From Percocet] AdvReac constipatio Unverified 08/28/23 13:28 n General Stated Complaint: RespSymp AWA: 3 Review of Systems All systems reviewed & are unremarkable except as noted in HPI and below Constitutional Constitutional: Denies chills, Denies fever(s) and Denies weakness Cardiovascular Cardiovascular: Denies chest pain and Reports dyspnea Respiratory Respiratory: Reports cough and Reports dyspnea Gastrointestinal Gastrointestinal: Denies abdominal pain, Denies nausea and Denies vomiting Musculoskeletal Musculoskeletal: Denies joint swelling Neurologic Neurologic: Denies weakness Exam Const General: no acute distress Orientation: alert HENWY Head: normal to inspection Ears: external ears normal General nose exam: external nose normal Mouth: moist mucous membranes Eyes General: appearance normal, both eyes and all related structures Neck Neck: normal visual inspection Resp Effort & Inspection: normal respiratory effort and able to speak in complete sentences Auscultation: wheezes Cardio Jugular venous pressure: no JVD Rate: regular rate Skin General skin exam: no rashes or lesions noted Neuro General: patient alert and patient oriented x3 Extrem General: normal to inspection Psych Mental Status: mental status grossly normal Course Vital Signs Vital signs: Vital Signs Temperature 36.1 C L 08/28/23 13:25 Pulse 72 08/28/23 13:25 Respiratory Rate 22 08/28/23 13:25 Blood Pressure 156/77 H 08/28/23 13:25 Pulse Oximetry 100 08/28/23 13:25 Temperature 36.1 C L 08/28/23 13:25 Temperature Source Temporal Artery Scan 08/28/23 13:25 Pulse 72 08/28/23 13:25 Respiratory Rate 22 08/28/23 13:25 Respiratory Effort Short of Breath 08/28/23 13:29 Blood Pressure 156/77 H 08/28/23 13:25 Blood Pressure Position Sitting 08/28/23 13:25 Pulse Oximetry 100 08/28/23 13:25 Oxygen Delivery Method Nasal Cannula 08/28/23 13:25 Oxygen Flow Rate 2 08/28/23 13:25 Medical Decision Making 4-year-old female with a history of COPD on home oxygen, end-stage renal disease on dialysis, states she has not missed any recent dialysis sessions, comes in with 1 day of cough and shortness of breath stating it feels like prior COPD exacerbations. She denies any fevers, no chest pain, no leg pain or swelling. She is alert speaking clearly on arrival. Stable vital signs, she does have diffuse wheezing bilaterally on exam, given her history suspect COPD exacerbation will treat with methylprednisolone and she has had good response with doxycycline in the past so we will initiate this. Will also check a CBC and CMP and a chest x-ray. Her symptoms are primarily cough and her lung exam's findings are consistent with COPD doubt ACS and do not feel any workup for this indicated. Show no significant changes from baseline and x-rays unremarkable. She feels significantly better requesting discharge. Her lungs are clear and she has stable vital signs. Will provide her with a short course of prednisone and also doxycycline. She will follow-up with her PCP and return precautions given Differential Diagnosis Differential Diagnosis: COPD, viral illness, pneumonia Imaging Data Radiologic Study: Imaging: X-Ray Radiologist's impression: No acute findings Lab Data Lab results reviewed: Yes I reviewed the patient's lab results. ECG Data Attestation: I personally reviewed and interpreted this ECG (s) as follows: Prior ECG tracings: available for review Interpretation: Sinus rhythm, rate of 70, [place] 153, no significant changes from prior Quality:SDOH Health Related Social Needs: No Data to Display PFSH All Active Problems (Updated 08/28/23 @ 14:50 by Aaron Puente MD) COPD exacerbation (Acute) Shortness of breath (Acute) Anxiety disorder (Acute) Shoulder pain, right (Acute) Vaginal bleeding (Acute) Thrombocytopenia (Chronic) Angioedema (Acute) Vaginal lesion (Acute) ESRD on dialysis (Chronic) On hemodialysis currently using central catheter-nephrology at [facility] receives dialysis at [facility] region Depression (Acute 08/28/14) Gallstones (Acute) COPD (chronic obstructive pulmonary disease) (Chronic) Pulmonary at [facility] Central venous catheter in place (Acute ~10/29/19) [facility] [place], right subclavian-dialysis Tricuspid regurgitation (Acute) s/p tricuspid valve replacement 02/2020, bovine Cirrhosis, alcoholic (Acute) POLST (Physician Orders for Life-Sustaining Treatment) (Acute) COLST completed 02/13/2020, DNR/DNI. Hemorrhage of arteriovenous fistula (Acute) Ventral hernia (Acute) Hypertension (Chronic) Aortic valve replaced (Acute) Bovine-with [facility] Personal history of nicotine dependence (Acute) 02/2021 Tobacco abuse (Acute) Lung nodule, solitary (Acute) Hemoptysis (Acute) Open abdominal wall wound (Acute) Fever (Acute) Neck pain (Acute) Right upper quadrant abdominal pain (Acute) Medical History Axillary lymphadenopathy Secondary hyperparathyroidism (of renal origin) Right heart failure CVD (cardiovascular disease) Macular degeneration of left eye (~10/17/19) [facility] [place] Nail dystrophy Cannabis dependence Cyst of ovary (08/20/12) Depression (09/14/12) Recurrent urinary tract infection Upper GI bleed (05/17/14) 05/15/14 [facility] [place] EGD, HH, esophagitis, gastric ulcer and duodenitis Umbilical hernia repaired 1995,1997,2001,2003 Hyperparathyroidism, unspecified (02/09/11) 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[facility] [place] Hyperlipidemia Gastroesophageal reflux disease with esophagitis (02/03/15) Essential hypertension (11/06/13) severe and labile Diverticulitis of large intestine without perforation or abscess with bleeding Bleeding hemorrhoids (01/08/13) rectal bleeding (colonoscopy [facility] 01/01/13 internal hemorrhoids and diverticuli) Surgical History H/O aortic valve replacement History of kidney transplant TRANSPLANT, KIDNEY (~1997) LEFT Abdominal hysterectomy (~2006) s/p hyst, but cervix still present and needs yearly PAP due to transplant Repair of umbilical hernia 1995,1997,2001,2003 Family History Mother Essential hypertension Personal history of malignant neoplasm KIDNEY Heart disease Pulmonary emphysema Father Personal history of malignant neoplasm Pulmonary emphysema Brother Hyperlipidemia Brother Hyperlipidemia Brother No problems noted. Social History Smoking/Tobacco Use Status: Current every day Tobacco Type: cigarettes Smoking risk assessment performed?: Yes Alcohol Intake: former Drug use: Daily Substance use type: marijuana Details: mostly edibles Housing: apartment Current gender identity: female Do you feel safe at home: Yes Do you feel safe in your relationship?: Yes
[2023-08-28 13:51] LABS: BE (Venous) 13 mmol/L (-2-3); HCO3 (Venous) 36 mmol/L (23-28); O2 Sat (Venous) 92 %; TCO2 (Venous) 34 mmol/L (24-29); pCO2 (Venous) 51 mmHg (41-51); pH (Venous) 7.46 (7.31-7.41); pO2 (Venous) 59 mmHg
[2023-08-28] MEDS: methylPREDNISolone SUCC 125 MG VIAL IVP (13:51)
[2023-08-28 13:52] LABS: Abs Immature Grans 0.02 10^3/uL (0.0-0.06); Absolute Basophil Count 0.04 10^3/uL (0.0-0.2); Absolute Eosinophil Count 0.34 10^3/uL (0.0-0.7); Absolute Lymphocyte Count 0.48 10^3/uL (1.2-3.4); Absolute Monocyte Count 0.33 10^3/uL (0.1-0.8); Absolute Neutrophil Count 2.04 10^3/uL (1.2-6.7); Basophils % 1.2 %; Eosinophils % 10.5 %; HCT 31.5 % (36.0-46.0); Immature Grans % 0.6 %; Lymphocytes % 14.8 %; MCH 30.5 pg (27.0-33.0); MCHC 31.7 % (32.0-36.0); MCV 96 fL (80-95); MPV 12.6 fL (8.0-11.0); Monocytes % 10.2 %; Neutrophils % 62.7 %; RBC 3.28 10^6/uL (3.93-5.22); RDW 13.5 % (11.7-14.6); RDW-SD 47.8 fL; WBC 3.25 10^3/uL (4.4-10.8)
[2023-08-28] MEDS: DOXYCYCLINE 100 MG in Normal Saline 100 ML IVPB (13:55)
[2023-08-28] MEDS: Albuterol/Ipratropium 3 ML UPD VIAL UPD (13:56)
[2023-08-28 14:09] LABS: ALT 24 U/L (14-59); AST 27 U/L (15-37); Albumin 4.1 g/dL (3.4-5.0); Alkaline Phosphatase 176 U/L (46-116); Anion Gap 8.1 mmol/L (3-11); BUN 11 mg/dL (7-18); Bilirubin, Total 0.8 mg/dL (0.2-1.0); CO2 35.9 mmol/L (21.0-32.0); CREATININE 2.8 mg/dL (0.55-1.02); Calcium 8.4 mg/dL (8.5-10.1); Chloride 97 mmol/L (98-107); Estimated GFR 18.75 (mL/min/1.73m2); Glucose 79 mg/dL (74-106); Potassium 3.4 mmol/L (3.5-5.1); Sodium 141 mmol/L (136-145); Total Protein 7.4 g/dL (6.4-8.2)
[2023-08-28 14:13] LABS: Diff Comment Diff Reviewed; Platelet Count 96 10^3/uL (130-400); RBC Morphology Normal
--- NOTE | 2023-08-28 14:35 | DI.RAD_ITS ---
Exam(s) XR PORTABLE CHEST AP EXAM: XR PORTABLE CHEST APz CLINICAL HISTORY: cough TECHNIQUE: 2D digital imaging was performed. COMPARISON: CR XR PORTABLE CHEST AP from 07/24/2023 FINDINGS: Exam is limited by overlying leads and oxygen tubing. LUNGS: Clear where visualized.. No pleural abnormality seen. HEART: Enlarged, stable. Valve prostheses. Pulmonary arteries: Dilated, stable. AORTA: Normal diameter. BONES: Sternal wires. Spine mainly obscured. Soft tissues: Unremarkable. IMPRESSION: No acute findings. DATA REPOSITORY: RADIATION DOSE DELIVERED:
== END 2023-08-28 15:09 | disposition home or self-care (01) ==
PROVIDERS: Emergency Provider Emergency Medicine; PCP Family Medicine
DX: J44.1 Chronic obstructive pulmonary disease with (acute) exacerbation (principal); I45.19 Other right bundle-branch block; I12.0 Hypertensive chronic kidney disease with stage 5 chronic kidney disease or end stage renal disease; N18.6 End stage renal disease; Z99.2 Dependence on renal dialysis; Z94.0 Kidney transplant status; F17.210 Nicotine dependence, cigarettes, uncomplicated; Z99.81 Dependence on supplemental oxygen; N25.81 Secondary hyperparathyroidism of renal origin
CPT/HCPCS: 80053; 82805; 93005; 96365; 96375; 99285; 71045; 85025; 93010; 99284; J2919; J7620

== ENCOUNTER 2023-09-08 09:40 | Emergency (ER) | payer OTHER, SELFPAY ==
--- NOTE | 2023-09-08 09:30 | RT.EKG_ITS ---
APPROVED REPORT Exam: Resting ECG Reason for Exam: Dyspnea Patient Location: E HR:66 bpm ECG Measurements Heart Rate 66 AXIS RI 174 P 24 QRSd 158 QRS 66 QT 515 T 32 QTc 538 Conclusion Sinus rhythm...normal P axis, V-rate 60- 99 Right bundle branch block...QRSd>120, terminal axis(90,270) Normal sinus rhythm at a rate of 66 with QTc prolongation at 538 ms. Right bundle branch block. RI within normal limits. No ST segment abnormalities. No acute injury pattern. Appears similar to taylor or dated earlier this month.
[2023-09-08 09:41] VITALS: BP 159/86; PULSE 71; RESP 20; TEMP 36.7; O2SAT 97
--- NOTE | 2023-09-08 09:46 | W.ED.GENAD ---
Discharge Plan Disposition Patient Disposition: Home Discharge Details Clinical Impression: Acute exacerbation of chronic obstructive pulmonary disease (COPD) Primary Care Provider: Chano Neves ED Provider: Willard Friedman Jerome Meds and New Rx's Prescriptions: New doxycycline hyclate 100 mg capsule 100 mg PO BID Qty: 10 0RF Continued tiotropium bromide [Spiriva with HandiHaler] 18 mcg capsule, w/inhalation device 1 cap inhalation DAILY Qty: 1 0RF Rx Instructions: puncture 1 cap using device; one dose = 2 inhalations from [facility] aspirin 81 MG tablet,chewable 81 mg PO DAILY Hold Instructions: out. no resupply atorvastatin 40 mg tablet 20 mg PO DAILY epinephrine 0.3 mg/0.3 mL auto-injector 0.3 mg IM ONCE PRN Rx Instructions: as a single dose; may repeat once albuterol sulfate [Ventolin HFA] 90 mcg/actuation HFA aerosol inhaler 2 puff inhalation QID PRN (Reason: shortness of breath or wheezing) Qty: 8.5 5RF ipratropium-albuterol 0.5 mg-3 mg(2.5 mg base)/3 mL solution for nebulization 3 ml inhalation Q4H PRN (Reason: shortness of breath or wheezing) Qty: 180 3RF minoxidil 2.5 mg tablet 2.5 mg PO QHS omeprazole 40 mg Capsule,Delayed Release(Dr/Ec) 40 mg PO BID albuterol sulfate 2.5 mg /3 mL (0.083 %) solution for nebulization 2.5 mg inhalation Q6H PRN (Reason: shortness of breath or wheezing) Qty: 3 0RF Rx Instructions: VA doxycycline hyclate 100 mg tablet 100 mg PO BID Qty: 14 0RF (DME) Aerochamber MV Spacer MISCELLANEOUS No Action trazodone 50 mg tablet 50 mg PO HS PRN Rx Instructions: 1 TAB HS Discharge Instructions Instructions: COPD Exacerbation, Adult ED Additional Instructions: You were seen in the emergency department for shortness of breath. You are found to have an exacerbation of your COPD. Please take these antibiotics as directed. Please return if you develop fevers chest pain or have any other concerns. Discharge Data Discharge Date/Time-TO BE ENTERED AT DEPARTURE: 09/08/23 10:22 HPI General Date/Time Provider Initiated Documentation: 09/08/23 09:46. HPI Narrative: MDM This is a chronically ill-appearing normothermic and not tachycardic 58-year-old female with end-stage renal disease on dialysis now with cough and shortness of breath with wheezing improved following prehospital nebulized albuterol and ipratropium most consistent with COPD exacerbation for which patient will receive doxycycline dexamethasone along with outpatient follow-up. No recent falls and equal breath sounds so my suspicion is low for pneumothorax. ECG nonischemic so I am not concerned for ACS in the absence of chest pain. Not hypotensive nor hypoxic and in the absence of chest pain doubt PE so I did not send a dimer. Patient does not appear markedly volume overloaded and is having no positional component to her shortness of breath so I am not suspicious for acute heart failure. Patient is due to go to dialysis today. Her QTc was mildly prolonged and it is certainly possible that in the setting of her dialysis that she could have hyperkalemia. Given the patient felt improved and requested to go to dialysis I did not want to delay her dialysis treatment by checking her electrolytes. She had not had any syncope to suggest torsades. In the setting of a right bundle branch block patient's QRS was prolonged at 158 milliseconds. This is actually slightly improved prior to prior. I considered whether or not again to obtain a basic metabolic panel however given that the patient's QRS was narrow or I did not feel that delaying her dialysis was necessary to obtain a basic metabolic panel as I would only be able to temporize her hyperkalemia with calcium gluconate insulin and albuterol rather than definitively treat her with dialysis. No abdominal pain to suggest intra-abdominal infection. No pain out of proportion to suggest necrotizing soft tissue infection. She has not had any fevers and her cough has been productive of clear phlegm so I did not feel that she required a chest x-ray as my suspicion for pneumonia was low. I considered whether or not to obtain a venous blood gas however the patient was on baseline oxygen at 2 L and was speaking in complete sentences so is not concerned for retention so I did not obtain a venous blood gas. She was speaking in complete sentences in no respiratory distress. I offered her another breathing treatment but she did not feel that she wanted one at this point in time. She requested to be discharged to dialysis and was going to call a ride. I advised her to return to the ED if she develops fevers worsening shortness of breath any lower extremity swelling or if she develops any syncope. She understood her return indications and was discharged with empiric trial of expectant outpatient management. Chronic conditions affecting the care of the patient: COPD end-stage dialysis History obtained from an outside historian: Paramedics External record review: N/A Diagnostic interpretations performed by me: Per my independent interpretation chest x-ray shows: Per my independent interpretation EKG shows: Normal sinus rhythm at a rate of 66 with QTc prolongation at 538 ms. Right bundle branch block. CA within normal limits. No ST segment abnormalities. No acute injury pattern. Appears similar to prior dated earlier this month. ]Medications: Doxycycline dexamethasone Social determinants of health affecting disposition: N/A Management discussed with: N/A Treatment/interventions considered: Labs chest x-ray Response to therapies provided: Improved symptoms in the ED HPI This is a 66-year-old female with history of end-stage renal disease on dialysis and COPD on 2 to 3 L home oxygen arrived to the emergency department via paramedics in the setting of increasing shortness of breath. Patient received nebulized albuterol/ipratropium by the paramedics. She notes her symptoms began last night. She has been increasingly coughing. Her sputum has been productive. Her phlegm has been clear. She is taken no recent falls. No abdominal pain. She is due for dialysis later this morning. She feels that her symptoms are most consistent with prior episodes of COPD. No fevers. No chest pain. No nausea no vomiting. Exam General: Chronically ill-appearing in no acute distress speaking in complete sentences. Head: Normocephalic, atraumatic. Eye: Extraocular eye movements intact. No conjunctival injection. No scleral icterus. Ear, nose, mouth, throat: Grossly normal inspection. Normal voice, handling secretions normally. Neck: Trachea midline. Cardiovascular: Well-perfused distal extremities. Regular rate and rhythm. No JVD. Upper extremity fistula Respiratory: Nonlabored respiration. Saturations within normal limits at baseline 2 to 3 L. Speaking in complete sentences. Mildly prolonged expiratory phase. No rhonchi. No respiratory distress. Gastrointestinal: Nondistended abdomen. Musculoskeletal: No significant lower extremity pitting edema. Moving all 4 extremities spontaneously. Skin: Normal for age and race, grossly normal temperature and turgor. No acute rash. Neurologic: Alert and appropriate, no apparent acute deficits. Psychiatric: Mood and manner are appropriate. Grooming and personal hygiene are appropriate. Related Data Home Medications Medication Instructions Recorded Confirmed aspirin 81 mg chewable tablet 81 mg PO DAILY 05/24/16 08/28/23 inhalational spacing device 01/26/19 08/28/23 (Aerochamber MV spacer) omeprazole 40 mg capsule,delayed 40 mg PO BID 03/18/19 08/28/23 release atorvastatin 40 mg tablet 20 mg PO DAILY 10/24/19 08/28/23 tiotropium bromide 18 mcg capsule 1 cap inhalation DAILY #1 inh 02/16/21 08/28/23 with inhalation device (Spiriva with HandiHaler) epinephrine 0.3 mg/0.3 mL 0.3 mg IM ONCE PRN 01/04/23 08/28/23 injection, auto-injector albuterol sulfate 2.5 mg/3 mL 2.5 mg (3 mL) inhalation Q6H PRN 01/16/23 08/28/23 (0.083 %) solution for nebulization shortness of breath or wheezing #3 mL albuterol sulfate 90 mcg/actuation 2 puff inhalation QID PRN 01/24/23 08/28/23 aerosol inhaler (Ventolin HFA) shortness of breath or wheezing #8.5 grams ipratropium 0.5 mg-albuterol 3 mg 3 ml inhalation Q4H PRN shortness 06/27/23 08/28/23 (2.5 mg base)/3 mL nebulization of breath or wheezing #180 mL soln minoxidil 2.5 mg tablet 2.5 mg PO QHS 06/30/23 08/28/23 trazodone 50 mg tablet 50 mg PO HS PRN 06/30/23 08/28/23 doxycycline hyclate 100 mg tablet 100 mg PO BID #14 tabs 08/28/23 08/28/23 doxycycline hyclate 100 mg capsule 100 mg PO BID #10 caps 09/08/23 Previous Rx's Medication Instructions Recorded tiotropium bromide 18 mcg capsule 1 cap inhalation DAILY #1 inh 02/16/21 with inhalation device (Spiriva with HandiHaler) albuterol sulfate 2.5 mg/3 mL 2.5 mg (3 mL) inhalation Q6H PRN 01/16/23 (0.083 %) solution for nebulization shortness of breath or wheezing #3 mL albuterol sulfate 90 mcg/actuation 2 puff inhalation QID PRN 01/24/23 aerosol inhaler (Ventolin HFA) shortness of breath or wheezing #8.5 grams ipratropium 0.5 mg-albuterol 3 mg 3 ml inhalation Q4H PRN shortness 06/27/23 (2.5 mg base)/3 mL nebulization of breath or wheezing #180 mL soln doxycycline hyclate 100 mg tablet 100 mg PO BID #14 tabs 08/28/23 doxycycline hyclate 100 mg capsule 100 mg PO BID #10 caps 09/08/23 Allergies Allergy/AdvReac Type Severity Reaction Status Date / Time cephalexin monohydrate Allergy Severe trouble Verified 08/28/23 13:28 [From Keflex] breathing colchicine Allergy Unknown Verified 08/28/23 13:28 allopurinol AdvReac Intermediate gout Verified 08/28/23 13:28 breakout erythromycin base AdvReac Intermediate gout Verified 08/28/23 13:28 breakout oxycodone [From Percocet] AdvReac constipatio Unverified 08/28/23 13:28 n General AWA: 3 Medical Decision Making Quality:SDOH Health Related Social Needs: No Data to Display PFSH All Active Problems (Updated 09/08/23 @ 09:56 by Willard Friedman MD) Acute exacerbation of chronic obstructive pulmonary disease (COPD) (Acute) COPD exacerbation (Acute) Shortness of breath (Acute) Anxiety disorder (Acute) Shoulder pain, right (Acute) Vaginal bleeding (Acute) Thrombocytopenia (Chronic) Angioedema (Acute) Vaginal lesion (Acute) ESRD on dialysis (Chronic) On hemodialysis currently using central catheter-nephrology at [facility] receives dialysis at [facility] region Depression (Acute 08/28/14) Gallstones (Acute) COPD (chronic obstructive pulmonary disease) (Chronic) Pulmonary at [facility] Central venous catheter in place (Acute ~10/29/19) [facility], right subclavian-dialysis Tricuspid regurgitation (Acute) s/p tricuspid valve replacement 02/2020, bovine Cirrhosis, alcoholic (Acute) POLST (Physician Orders for Life-Sustaining Treatment) (Acute) COLST completed 02/13/2020, DNR/DNI. Hemorrhage of arteriovenous fistula (Acute) Ventral hernia (Acute) Hypertension (Chronic) Aortic valve replaced (Acute) Bovine-with [facility] Personal history of nicotine dependence (Acute) 02/2021 Tobacco abuse (Acute) Lung nodule, solitary (Acute) Hemoptysis (Acute) Open abdominal wall wound (Acute) Fever (Acute) Neck pain (Acute) Right upper quadrant abdominal pain (Acute) Medical History Axillary lymphadenopathy Secondary hyperparathyroidism (of renal origin) Right heart failure CVD (cardiovascular disease) Macular degeneration of left eye (~10/17/19) [facility] Nail dystrophy Cannabis dependence Cyst of ovary (08/20/12) Depression (09/14/12) Recurrent urinary tract infection Upper GI bleed (05/17/14) 05/15/14 [facility] EGD, HH, esophagitis, gastric ulcer and duodenitis Umbilical hernia repaired 1995,1997,2001,2003 Hyperparathyroidism, unspecified (02/09/11) 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[facility] Hyperlipidemia Gastroesophageal reflux disease with esophagitis (02/03/15) Essential hypertension (01/16/13) severe and labile Diverticulitis of large intestine without perforation or abscess with bleeding Bleeding hemorrhoids (01/08/13) rectal bleeding (colonoscopy [facility] 01/01/13 internal hemorrhoids and diverticuli) Surgical History H/O aortic valve replacement History of kidney transplant TRANSPLANT, KIDNEY (~1997) LEFT Abdominal hysterectomy (~2006) s/p hyst, but cervix still present and needs yearly PAP due to transplant Repair of umbilical hernia 1995,1997,2001,2003 Family History Mother Essential hypertension Personal history of malignant neoplasm KIDNEY Heart disease Pulmonary emphysema Father Personal history of malignant neoplasm Pulmonary emphysema Brother Hyperlipidemia Brother Hyperlipidemia Brother No problems noted. Social History Smoking/Tobacco Use Status: Current every day Tobacco Type: cigarettes Smoking risk assessment performed?: Yes Alcohol Intake: former Drug use: Daily Substance use type: marijuana Details: mostly edibles Housing: apartment Current gender identity: female Do you feel safe at home: Yes Do you feel safe in your relationship?: Yes
[2023-09-08 09:49] VITALS: BP 159/86; PULSE 71; RESP 20; TEMP 36.7; O2SAT 97
[2023-09-08] MEDS: Dexamethasone 4 MG TAB 8 MG PO (10:20)
[2023-09-08] MEDS: Doxycycline Hyclate 100 MG CAP PO (10:20)
[2023-09-08 10:21] VITALS: RESP 20
== END 2023-09-08 10:22 | disposition home or self-care (01) ==
PROVIDERS: Emergency Provider Emergency Medicine; PCP Family Medicine
DX: J44.1 Chronic obstructive pulmonary disease with (acute) exacerbation (principal); R06.02 Shortness of breath
CPT/HCPCS: 93005; 99283; 93010; J8540

== ENCOUNTER 2023-09-29 06:57 | Emergency (ER) | payer OTHER, SELFPAY ==
[2023-09-29] VITALS (31 sets, daily range): BP systolic 176–216; BP diastolic 41–147; PULSE 69–92; RESP 2–27; TEMP 37; O2SAT 85–99
--- NOTE | 2023-09-29 06:45 | RT.EKG_ITS ---
APPROVED REPORT Exam: Resting ECG Reason for Exam: short of breath Patient Location: E HR:76 bpm ECG Measurements Heart Rate 76 AXIS HI 184 P 17 QRSd 157 QRS 53 QT 456 T 3 QTc 514 Conclusion Sinus rhythm...normal P axis, V-rate 60- 99 Right bundle branch block...QRSd>120, terminal axis(90,270)
--- NOTE | 2023-09-29 07:12 | ED.GENADUL_ITS ---
Discharge Plan Disposition Patient Disposition: Home Condition: Stable Discharge Details Clinical Impression: Acute exacerbation of chronic obstructive pulmonary disease, Bilateral pulmonary infiltrates, Anemia Primary Care Provider: Chano Neves ED Provider: Justice Cooper Home Meds and New Rx's Prescriptions: New prednisone 20 mg tablet 40 mg PO DAILY Qty: 8 0RF Rx Instructions: start 09/30/23 levofloxacin 750 mg tablet 750 mg PO DAILY Qty: 4 0RF Rx Instructions: start 09/30/23 Continued tiotropium bromide [Spiriva with HandiHaler] 18 mcg capsule, w/inhalation device 1 cap inhalation DAILY Qty: 1 0RF Rx Instructions: puncture 1 cap using device; one dose = 2 inhalations from [facility] aspirin 81 MG tablet,chewable 81 mg PO DAILY atorvastatin 40 mg tablet 20 mg PO DAILY epinephrine 0.3 mg/0.3 mL auto-injector 0.3 mg IM ONCE PRN Rx Instructions: as a single dose; may repeat once albuterol sulfate [Ventolin HFA] 90 mcg/actuation HFA aerosol inhaler 2 puff inhalation QID PRN (Reason: shortness of breath or wheezing) Qty: 8.5 5RF ipratropium-albuterol 0.5 mg-3 mg(2.5 mg base)/3 mL solution for nebulization 3 ml inhalation Q4H PRN (Reason: shortness of breath or wheezing) Qty: 180 3RF minoxidil 2.5 mg tablet 2.5 mg PO QHS omeprazole 40 mg Capsule,Delayed Release(Dr/Ec) 40 mg PO BID albuterol sulfate 2.5 mg /3 mL (0.083 %) solution for nebulization 2.5 mg inhalation Q6H PRN (Reason: shortness of breath or wheezing) Qty: 3 0RF Rx Instructions: [facility] (DME) Aerochamber MV Spacer MISCELLANEOUS No Action trazodone 50 mg tablet 50 mg PO HS PRN Rx Instructions: 1 TAB HS Discharge Instructions Instructions: Pneumonia in adults, COPD Exacerbation, Adult ED Additional Instructions: Please go to dialysis today as scheduled. Take full course of antibiotic as prescribed. You were given first dose of antibiotic in the ER. Your next dose is tomorrow. Take prednisone as prescribed. Your next dose is tomorrow. Please followup with you [facility] care doctor. You should be seen for reevaluation by your doctor early next week. Call today to schedule followup. Return to the ER immediately for any worsening or new concerning symptoms. Referrals: Chano Neves MD [Primary Care Provider] - [facility] General Mode of arrival: EMS . Date/Time Provider Initiated Documentation: 09/29/23 06:59 . Limitations to Documentation: no limitations . Information obtained by: patient . HPI Narrative: 58yo f with mulitple medical problems including history of ESRD on HD, COPD with frequent exacerbations, here with chief complaint of COPD exacerbation. Patient notes SOB started this AM. SOB was severe, now improved after two neb treatments. No associated CP. She does have associated cough. No fever. Related Data Home Medications ?Medication ?Instructions ?Recorded ?Confirmed aspirin 81 mg chewable tablet 81 mg PO DAILY 05/24/16 09/29/23 inhalational spacing device 01/26/19 09/29/23 (Aerochamber MV spacer) omeprazole 40 mg capsule,delayed 40 mg PO BID 03/18/19 09/29/23 release atorvastatin 40 mg tablet 20 mg PO DAILY 10/24/19 09/29/23 tiotropium bromide 18 mcg capsule 1 cap inhalation DAILY #1 inh 02/16/21 with inhalation device (Spiriva with HandiHaler) epinephrine 0.3 mg/0.3 mL 0.3 mg IM ONCE PRN 01/04/23 09/29/23 injection, auto-injector albuterol sulfate 2.5 mg/3 mL 2.5 mg (3 mL) inhalation Q6H PRN 01/16/23 09/29/23 (0.083 %) solution for nebulization shortness of breath or wheezing #3 mL albuterol sulfate 90 mcg/actuation 2 puff inhalation QID PRN 01/24/23 09/29/23 aerosol inhaler (Ventolin HFA) shortness of breath or wheezing #8.5 grams ipratropium 0.5 mg-albuterol 3 mg 3 ml inhalation Q4H PRN shortness 06/27/23 09/29/23 (2.5 mg base)/3 mL nebulization of breath or wheezing #180 mL soln minoxidil 2.5 mg tablet 2.5 mg PO QHS 06/30/23 09/29/23 trazodone 50 mg tablet 50 mg PO HS PRN 06/30/23 09/20/23 levofloxacin 750 mg tablet 750 mg PO DAILY #4 tabs 09/29/23 prednisone 20 mg tablet 40 mg (2 x 20 mg) PO DAILY #8 tabs 09/29/23 Previous Rx's ?Medication ?Instructions ?Recorded tiotropium bromide 18 mcg capsule 1 cap inhalation DAILY #1 inh 02/16/21 with inhalation device (Spiriva with HandiHaler) albuterol sulfate 2.5 mg/3 mL 2.5 mg (3 mL) inhalation Q6H PRN 01/16/23 (0.083 %) solution for nebulization shortness of breath or wheezing #3 mL albuterol sulfate 90 mcg/actuation 2 puff inhalation QID PRN 01/24/23 aerosol inhaler (Ventolin HFA) shortness of breath or wheezing #8.5 grams ipratropium 0.5 mg-albuterol 3 mg 3 ml inhalation Q4H PRN shortness 06/27/23 (2.5 mg base)/3 mL nebulization of breath or wheezing #180 mL soln levofloxacin 750 mg tablet 750 mg PO DAILY #4 tabs 09/29/23 prednisone 20 mg tablet 40 mg (2 x 20 mg) PO DAILY #8 tabs 09/29/23 Allergies Allergy/AdvReac Type Severity Reaction Status Date / Time cephalexin monohydrate (From Allergy Severe trouble Verified 09/20/23 14:00 Keflex) breathing colchicine Allergy Unknown Verified 09/20/23 14:00 allopurinol AdvReac Intermediate gout Verified 09/20/23 14:00 breakout erythromycin base AdvReac Intermediate gout Verified 09/20/23 14:00 breakout oxycodone (From Percocet) AdvReac constipatio Unverified 09/20/23 14:00 n General Stated Complaint: SOB AWA: 3 Review of Systems All systems reviewed & are unremarkable except as noted in HPI and below Constitutional Constitutional: Denies fever(s) Cardiovascular Cardiovascular: Denies chest pain Respiratory Respiratory: Reports as per HPI Psychiatric Psychiatric: Reports anxiety Exam Const General: cooperative, in distress and anxious HENMT Mouth: moist mucous membranes Neck Neck: trachea midline and supple Resp Auscultation: diminished lung sounds bilaterally, no rales and no rhonchi Cardio Rate: regular rate and not tachycardic Rhythm: regular rhythm GI Palpation: soft, not firm, no guarding, no masses, not rigid and nontender Neuro General: patient alert, patient awake and tone normal Extrem General: no calf tenderness and edema Laterality: bilateral (trace) Course Vital Signs Vital signs: Vital Signs Pulse 78 09/29/23 07:03 Respiratory Rate 20 09/29/23 07:03 Pulse Oximetry 92 09/29/23 07:03 Pulse 78 09/29/23 07:03 Respiratory Rate 20 09/29/23 07:03 Pulse Oximetry 92 09/29/23 07:03 Oxygen Delivery Method Room Air 09/29/23 07:03 Oxygen Flow Rate 0 09/29/23 07:03 Medical Decision Making 7:25 -- 58yo f with history of COPD, ESRD on HD, cirrhosis, here with SOB and increased cough with respiratory distress, improved now with neb treatment. Patient is saturating low 90s on supplemental O2. I will initiate treatment for acute COPD exacerbation with duoneb and solumedrol. EKG was reviewed and interpreted by me: sinus rhythm 76bpm, RBBB, no significant change from prior. Plan to consult RT. -- cxr interpreted by radiology: 11:05 -- CT interpreted by radiology: Plan to initiate treatment with levaquin (patient has allergy listed to cephalosporin). Patient reassessed and significantly improved. Back to baseline. Requesting discharge. Plan for discharge with close outaptient followup for reassessment early next week. She will go to dialysis as schedueld today. Usual and customary dischrage instructions were reviewed. Quality:SDOH Health Related Social Needs: No Data to Display PFSH All Active Problems (Updated 09/29/23 @ 11:10 by Justice Cooper MD) Anemia (Chronic) Bilateral pulmonary infiltrates (Acute) Acute exacerbation of chronic obstructive pulmonary disease (Acute) Acute exacerbation of chronic obstructive pulmonary disease (COPD) (Acute) Anxiety disorder (Acute) Shoulder pain, right (Acute) Vaginal bleeding (Acute) Thrombocytopenia (Chronic) Angioedema (Acute) Vaginal lesion (Acute) ESRD on dialysis (Chronic) On hemodialysis currently using central catheter-nephrology at [facility] receives dialysis at [facility] region Depression (Acute 08/28/14) Gallstones (Acute) COPD (chronic obstructive pulmonary disease) (Chronic) Pulmonary at [facility] Central venous catheter in place (Acute ~10/29/19) [facility], right subclavian-dialysis Tricuspid regurgitation (Acute) s/p tricuspid valve replacement 02/2020, bovine Cirrhosis, alcoholic (Acute) POLST (Physician Orders for Life-Sustaining Treatment) (Acute) COLST completed 02/13/2020, DNR/DNI. Hemorrhage of arteriovenous fistula (Acute) Ventral hernia (Acute) Hypertension (Chronic) Aortic valve replaced (Acute) Bovine-with [facility] Personal history of nicotine dependence (Acute) 02/2021 Tobacco abuse (Acute) Lung nodule, solitary (Acute) Hemoptysis (Acute) Open abdominal wall wound (Acute) Fever (Acute) Neck pain (Acute) Right upper quadrant abdominal pain (Acute) Medical History Axillary lymphadenopathy Secondary hyperparathyroidism (of renal origin) Right heart failure CVD (cardiovascular disease) Macular degeneration of left eye (~10/17/19) [facility] Nail dystrophy Cannabis dependence Cyst of ovary (08/20/12) Depression (09/14/12) Recurrent urinary tract infection Upper GI bleed (05/17/14) 05/15/14 [facility] EGD, HH, esophagitis, gastric ulcer and duodenitis Umbilical hernia repaired 1995,1997,2001,2003 Hyperparathyroidism, unspecified (02/09/11) 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[facility] Hyperlipidemia Gastroesophageal reflux disease with esophagitis (02/03/15) Essential hypertension (01/16/13) severe and labile Diverticulitis of large intestine without perforation or abscess with bleeding Bleeding hemorrhoids (01/08/13) rectal bleeding (colonoscopy [facility] 01/01/13 internal hemorrhoids and diverticuli) Surgical History H/O aortic valve replacement History of kidney transplant TRANSPLANT, KIDNEY (~1997) LEFT Abdominal hysterectomy (~2006) s/p hyst, but cervix still present and needs yearly PAP due to transplant Repair of umbilical hernia 1995,1997,2001,2003 Family History Mother Essential hypertension Personal history of malignant neoplasm KIDNEY Heart disease Pulmonary emphysema Father Personal history of malignant neoplasm Pulmonary emphysema Brother Hyperlipidemia Brother Hyperlipidemia Brother No problems noted. Social History Smoking/Tobacco Use Status: Current every day Tobacco Type: cigarettes Smoking risk assessment performed?: Yes Alcohol Intake: former Drug use: Daily Substance use type: marijuana Details: mostly edibles Housing: apartment Current gender identity: female Do you feel safe at home: Yes Do you feel safe in your relationship?: Yes
--- NOTE | 2023-09-29 07:24 | RESPIRATORY ---
Pt's baseline is RA at rest and 2L O2 at night only. Pt states that she is still smoking cigarettes, about 5/day and is actively trying to quit. She states she is also trying to change her THC from the smoking kind to the edibles. RT trialed pt on room air, SpO2 fell to 87%. RT placed pt on 1L OxyMask, currently maintaining 93% on this 1L at rest, falls to 91% on 1L while holding conversation. Target SpO2 88-92% per COPD protocol.
[2023-09-29 07:30] LABS: Abs Immature Grans 0.01 10^3/uL (0.0-0.06); Absolute Basophil Count 0.03 10^3/uL (0.0-0.2); Absolute Eosinophil Count 0.37 10^3/uL (0.0-0.7); Absolute Neutrophil Count 2.67 10^3/uL (1.2-6.7); Basophils % 0.7 %; Eosinophils % 9.1 %; HCT 28.8 % (36.0-46.0); HGB 9.1 g/dL (11.2-15.7); Immature Grans % 0.2 %; Lymphocytes % 12.3 %; MCH 31.4 pg (27.0-33.0); MCHC 31.6 % (32.0-36.0); MCV 99 fL (80-95); MPV 11.8 fL (8.0-11.0); Monocytes % 12.3 %; Neutrophils % 65.4 %; Platelet Count 133 10^3/uL (130-400); RDW 15.4 % (11.7-14.6); RDW-SD 54.8 fL; WBC 4.08 10^3/uL (4.4-10.8)
[2023-09-29 07:43] LABS: ALT 26 U/L (14-59); AST 32 U/L (15-37); Albumin 3.9 g/dL (3.4-5.0); Alkaline Phosphatase 181 U/L (46-116); Anion Gap 9.9 mmol/L (3-11); BUN 37 mg/dL (7-18); Bilirubin, Total 0.74 mg/dL (0.2-1.0); CO2 32.1 mmol/L (21.0-32.0); Calcium 7.7 mg/dL (8.5-10.1); Chloride 96 mmol/L (98-107); Estimated GFR 6.14 (mL/min/1.73m2); Glucose 88 mg/dL (74-106); Potassium 4.7 mmol/L (3.5-5.1); Sodium 138 mmol/L (136-145); Total Protein 7.1 g/dL (6.4-8.2); Troponin I < 50 ng/L (< or =60)
[2023-09-29 07:45] LABS: CREATININE 7.1 mg/dL (0.55-1.02)
[2023-09-29] MEDS: Albuterol/Ipratropium 3 ML UPD VIAL UPD (07:48)
[2023-09-29] MEDS: methylPREDNISolone SUCC 125 MG VIAL IVP (07:49)
[2023-09-29] MEDS: Normal Saline Flush 10 ML SYR IVP (07:50)
--- NOTE | 2023-09-29 07:51 | DI.RAD_ITS ---
Exam(s) XR PORTABLE CHEST AP EXAM: XR PORTABLE CHEST AP CLINICAL HISTORY: sob. TECHNIQUE: 2D digital imaging was performed. COMPARISON: Prior chest x-ray 08/28/2023 FINDINGS: Single AP portable view. Sternotomy wires and prosthetic cardiac valve again noted, unchanged in position. Cardiomegaly again noted. Mediastinum unchanged. There appears to be some possible infiltrate in th e right infrahilar region-right lower lobe. No infiltrates on the left side. No pulmonary edema. N o obvious pleural effusions. No fractures evident. IMPRESSION: Sternotomy. Cardiomegaly. Prosthetic aortic valve. Probable right lower lobe infiltrate. Recommend follow-up CT scan. DATA REPOSITORY: RADIATION DOSE DELIVERED:
--- NOTE | 2023-09-29 09:24 | DI.CT_ITS ---
Exam(s) CT CHEST W EXAM: CT CHEST W CLINICAL HISTORY: cxr ? infiltrate, copd exacerbation. TECHNIQUE: Multi planar reconstructions were performed. CONTRAST MATERIAL: Omnipaque 350; 75 cc COMPARISON: CT CT CHEST PE CTA from 11/07/2022 FINDINGS: CHEST: LUNGS: Mild infiltrate noted in the posterior basal segments of both lower lobes. No associated pleu ral effusions.. The infrahilar finding evident on the chest x-ray corresponds to multiple normal pul monary vessels. No evidence of pulmonary edema. No findings in the trachea and mainstem bronchi. T here is no bronchiectasis. MEDIASTINUM: There is no hilar nor mediastinal adenopathy. Partially visualized thyroid appears unrem arkable. CARDIAC: There is sternotomy wires and cardiomegaly. No pericardial effusion. There prosthetic aort ic and tricuspid valves. Diameter of the ascending thoracic aorta is prominent, measuring 4 cm. Summer meter of the mid aortic arch is upper normal as is the diameter of the descending thoracic aorta. Th ere is no evidence of aortic dissection. Diameter of the main pulmonary arteries is prominent consistent with element of pulmonary arterial hy pertension. The diameter of the main right pulmonary artery is 3.6 cm. There are no intraluminal em boli evident in the main pulmonary arteries. Distal pulmonary arteries are not able to be assessed a s this was not performed as a pulmonary embolus protocol study. VISUALIZED UPPER ABDOMEN:Prominent diameter IVC. Calcified splenic artery. Partially included splee n appears enlarged. OSSEOUS: No significant osseous lesions.. IMPRESSION: 1. There is mild infiltrate in both lung bases, specifically in the posterior basal segments of both lower lobes. There are no associated pleural effusions. No intrathoracic adenopathy. 2. Sternotomy. Multiple prosthetic cardiac valves. Enlarged ascending thoracic aorta (4 cm) with no evidence of dissection. No pericardial effusion. 3. Large diameter central pulmonary arteries indicating element of pulmonary arterial hypertension. No central pulmonary emboli identified. Called by myself to ER provider. RADIATION DOSE DELIVERED: Total DLP DATA REPOSITORY: All CT scans at this facility are submitted to the National Radiology Data Registry (NRDR) Dose Index Registry (DIR) with the [employer] (ACR). RADIATION OPTIMIZATION: All CT scans at this facility use at least one of these dose optimization te chniques: automated exposure control; mA and/or kV adjustment per patient size (includes targeted exa ms where dose is matched to clinical indication); or iterative reconstruction.
[2023-09-29] MEDS: Omnipaque 350 MG/ML 100 ML BTL 70 ML IJ (09:46)
[2023-09-29] MEDS: Normal Saline - Diluent 50 ML VIAL IJ (09:48)
--- NOTE | 2023-09-29 10:58 | DI.VRAD_ITS ---
PROCEDURE INFORMATION: Exam: XR Chest Exam date and time: 09/29/2023 7:45 AM Age: 58 years old Clinical indication: Shortness of breath; Patient HX: SOB TECHNIQUE: Imaging protocol: Radiologic exam of the chest. Views: 1 view. COMPARISON: CR XR PORTABLE CHEST AP 08/28/2023 2:32 PM FINDINGS: Lungs: Stable mild vascular congestion. Infiltrate or atelectasis left lower lobe. Pleural spaces: Unremarkable. No pleural effusion. No pneumothorax. Heart/Mediastinum: AVR. TVR. Cardiomegaly. Bones/joints: Sternotomy. IMPRESSION: Stable cardiomegaly with mild vascular congestion and infiltrate or atelectasis left lower lobe. Dictated and Authenticated by: Radha Lopez MD. Ordering:BRETT Rendon MD
[2023-09-29] MEDS: levoFLOXacin 500 MG, levoFLOXacin 250 MG 750 MG PO (11:16)
[2023-09-29] MEDS: Albuterol 2.5 MG/3 ML INH SOLN VIAL UPD (11:42)
== END 2023-09-29 12:03 | disposition home or self-care (01) ==
PROVIDERS: Emergency Provider Student in an Organized Health Care Education/Training Program; PCP Family Medicine
DX: J44.1 Chronic obstructive pulmonary disease with (acute) exacerbation (principal); R91.8 Other nonspecific abnormal finding of lung field; D64.9 Anemia, unspecified; I12.0 Hypertensive chronic kidney disease with stage 5 chronic kidney disease or end stage renal disease; N18.6 End stage renal disease; N25.81 Secondary hyperparathyroidism of renal origin; Z79.82 Long term (current) use of aspirin; Z99.2 Dependence on renal dialysis; Z94.0 Kidney transplant status; Z95.2 Presence of prosthetic heart valve
CPT/HCPCS: 80053; 93005; 94640; 96374; 99285; 71045; 71260; 83735; 84484; 85025; 93010; J2919; J3490; J7613; J7620

== ENCOUNTER 2023-10-02 14:41 | Emergency (ER) | payer OTHER, SELFPAY ==
[2023-10-02 14:35] VITALS: BP 155/87; PULSE 105; RESP 18; TEMP 37.5; O2SAT 95
--- NOTE | 2023-10-02 14:47 | ED.GENADUL_ITS ---
Discharge Plan Disposition Patient Disposition: Home Condition: Improving Discharge Details Chief Complaint: RespSymp Clinical Impression: COPD exacerbation Primary Care Provider: Chano Neves ED Provider: Best Daniels Home Meds and New Rx's Prescriptions: No Action tiotropium bromide [Spiriva with HandiHaler] 18 mcg capsule, w/inhalation device 1 cap inhalation DAILY Qty: 1 0RF Rx Instructions: puncture 1 cap using device; one dose = 2 [facility]ations [facility] trazodone 50 mg tablet 50 mg PO HS PRN Rx Instructions: 1 TAB HS aspirin 81 MG tablet,chewable 81 mg PO DAILY atorvastatin 40 mg tablet 20 mg PO DAILY epinephrine 0.3 mg/0.3 mL auto-injector 0.3 mg IM ONCE PRN Rx Instructions: as a single dose; may repeat once albuterol sulfate [Ventolin HFA] 90 mcg/actuation HFA aerosol inhaler 2 puff inhalation QID PRN (Reason: shortness of breath or wheezing) Qty: 8.5 5RF ipratropium-albuterol 0.5 mg-3 mg(2.5 mg base)/3 mL solution for nebulization 3 ml inhalation Q4H PRN (Reason: shortness of breath or wheezing) Qty: 180 3RF minoxidil 2.5 mg tablet 2.5 mg PO QHS omeprazole 40 mg Capsule,Delayed Release(Dr/Ec) 40 mg PO BID albuterol sulfate 2.5 mg /3 mL (0.083 %) solution for nebulization 2.5 mg inhalation Q6H PRN (Reason: shortness of breath or wheezing) Qty: 3 0RF Rx Instructions: [facility] prednisone 20 mg tablet 40 mg PO DAILY Qty: 8 0RF Rx Instructions: start 09/30/23 levofloxacin 750 mg tablet 750 mg PO DAILY Qty: 4 0RF Rx Instructions: start 09/30/23 (DME) Aerochamber MV Spacer MISCELLANEOUS Discharge Instructions Instructions: Chronic obstructive pulmonary disease (COPD) Additional Instructions: Please follow with your primary care physician. Return to the emergency department for any worsening symptoms HPI General Date/Time Provider Initiated Documentation: 10/02/23 14:47 . HPI Narrative: 58-year-old female history of COPD, end-stage renal disease on hemodialysis, dialyzed earlier today presents with wheezing and shortness of breath consistent with prior COPD exacerbations, patient is on 2 to 3 L nasal cannula baseline Related Data Home Medications ?Medication ?Instructions ?Recorded ?Confirmed aspirin 81 mg chewable tablet 81 mg PO DAILY 05/24/16 10/02/23 inhalational spacing device 01/26/19 10/02/23 (Aerochamber MV spacer) omeprazole 40 mg capsule,delayed 40 mg PO BID 03/18/19 10/02/23 release atorvastatin 40 mg tablet 20 mg PO DAILY 10/24/19 10/02/23 tiotropium bromide 18 mcg capsule 1 cap inhalation DAILY #1 inh 02/16/21 with inhalation device (Spiriva with HandiHaler) epinephrine 0.3 mg/0.3 mL 0.3 mg IM ONCE PRN 01/04/23 10/02/23 injection, auto-injector albuterol sulfate 2.5 mg/3 mL 2.5 mg (3 mL) inhalation Q6H PRN 01/16/23 10/02/23 (0.083 %) solution for nebulization shortness of breath or wheezing #3 mL albuterol sulfate 90 mcg/actuation 2 puff inhalation QID PRN 01/24/23 10/02/23 aerosol inhaler (Ventolin HFA) shortness of breath or wheezing #8.5 grams ipratropium 0.5 mg-albuterol 3 mg 3 ml inhalation Q4H PRN shortness 06/27/23 10/02/23 (2.5 mg base)/3 mL nebulization of breath or wheezing #180 mL soln minoxidil 2.5 mg tablet 2.5 mg PO QHS 06/30/23 10/02/23 trazodone 50 mg tablet 50 mg PO HS PRN 06/30/23 10/02/23 levofloxacin 750 mg tablet 750 mg PO DAILY #4 tabs 09/29/23 10/02/23 prednisone 20 mg tablet 40 mg (2 x 20 mg) PO DAILY #8 tabs 09/29/23 10/02/23 Previous Rx's ?Medication ?Instructions ?Recorded tiotropium bromide 18 mcg capsule 1 cap inhalation DAILY #1 inh 02/16/21 with inhalation device (Spiriva with HandiHaler) albuterol sulfate 2.5 mg/3 mL 2.5 mg (3 mL) inhalation Q6H PRN 01/16/23 (0.083 %) solution for nebulization shortness of breath or wheezing #3 mL albuterol sulfate 90 mcg/actuation 2 puff inhalation QID PRN 01/24/23 aerosol inhaler (Ventolin HFA) shortness of breath or wheezing #8.5 grams ipratropium 0.5 mg-albuterol 3 mg 3 ml inhalation Q4H PRN shortness 06/27/23 (2.5 mg base)/3 mL nebulization of breath or wheezing #180 mL soln levofloxacin 750 mg tablet 750 mg PO DAILY #4 tabs 09/29/23 prednisone 20 mg tablet 40 mg (2 x 20 mg) PO DAILY #8 tabs 09/29/23 Allergies Allergy/AdvReac Type Severity Reaction Status Date / Time cephalexin monohydrate (From Allergy Severe trouble Verified 10/02/23 14:51 Keflex) breathing colchicine Allergy Unknown Verified 10/02/23 14:51 allopurinol AdvReac Intermediate gout Verified 10/02/23 14:51 breakout erythromycin base AdvReac Intermediate gout Verified 10/02/23 14:51 breakout General Stated Complaint: RespSymp AWA: 3 Exam Narrative Exam Narrative: Alert oriented and dry Expiratory wheeze bilaterally, speaking full sentences, no rales or rhonchi Heart rate slightly tachycardic normal rhythm, no murmurs rubs or gallops Alert oriented interactive Course Vital Signs Vital signs: Vital Signs Temperature 37.5 C 10/02/23 14:35 Pulse 105 H 10/02/23 14:35 Respiratory Rate 18 10/02/23 14:35 Blood Pressure 155/87 H 10/02/23 14:35 Pulse Oximetry 95 10/02/23 14:35 Temperature 37.5 C 10/02/23 14:35 Temperature Source Temporal Artery Scan 10/02/23 14:35 Pulse 105 H 10/02/23 14:35 Respiratory Rate 18 10/02/23 14:35 Respiratory Effort Short of Breath 10/02/23 14:38 Blood Pressure 155/87 H 10/02/23 14:35 Blood Pressure Position Sitting 10/02/23 14:35 Pulse Oximetry 95 10/02/23 14:35 Oxygen Delivery Method Nasal Cannula 10/02/23 14:35 Oxygen Flow Rate 3 10/02/23 14:35 Pain Level 2 07/22/24 14:35 Medical Decision Making 58-year-old female history of COPD end-stage renal disease on hemodialysis dialyzed earlier today presents with shortness of breath and wheezing, bilateral expiratory wheeze on examination, saturating 95% on 3 L nasal cannula, patient is on 2 to 3 L nasal cannula at baseline, afebrile nontoxic speaking full sentences, likely COPD exacerbation must consider viral illness lower suspicion for bacterial pneumonia, no evidence of fluid overload state at this time, low suspicion for ACS CHF PE or aortic pathology given history and physical. Trial of nebulized albuterol/ipratropium close reassessment. Patient is already on prednisone likely home with close follow 15: 38 patient feeling much better lungs clear. At baseline oxygen flow rate Quality:SDOH Health Related Social Needs: No Data to Display PFSH All Active Problems (Updated 10/02/23 @ 15:38 by Best Daniels MD) COPD exacerbation (Acute) Thoracic aortic aneurysm (Acute) 4 cm 09/2023 Anemia (Chronic) Bilateral pulmonary infiltrates (Acute) Acute exacerbation of chronic obstructive pulmonary disease (Acute) Acute exacerbation of chronic obstructive pulmonary disease (COPD) (Acute) Anxiety disorder (Acute) Shoulder pain, right (Acute) Vaginal bleeding (Acute) Thrombocytopenia (Chronic) Angioedema (Acute) Vaginal lesion (Acute) ESRD on dialysis (Chronic) On hemodialysis currently using central catheter-nephrology at [facility] receives dialysis at [facility] Depression (Acute 08/28/14) Gallstones (Acute) COPD (chronic obstructive pulmonary disease) (Chronic) [facility]monary at [facility] Central venous catheter in place [place]Acute [place]10[place]29/19[place] [facility] [place] Tricuspid regurgitation (Acute) s/p tricuspid valve replacement 02/2020, bovine Cirrhosis, alcoholic (Acute) POLST (Physician Orders for Life-Sustaining Treatment) (Acute) COLST completed 02/13/2020, DNR/DNI. Hemorrhage of arteriovenous fistula (Acute) Ventral hernia (Acute) Hypertension (Chronic) Aortic valve replaced (Acute) Bovine-with [facility] Personal history of nicotine dependence (Acute) 02/2021 Tobacco abuse (Acute) Lung nodule, solitary (Acute) Hemoptysis (Acute) Open abdominal wall wound (Acute) Fever (Acute) Neck pain (Acute) Right upper quadrant abdominal pain (Acute) Medical History Axillary lymphadenopathy Secondary hyperparathyroidism (of renal origin) Right heart failure CVD (cardiovascular disease) Macular degeneration of left eye (~10/17/19[place] [facility] [place] dyst[place] Cannabis dependence Cyst of ovary (08/20/12) Depression (09/14/12) Recurrent urinary tract infection Upper GI bleed (05/17/14) 05/15/[place] [facility] [place], esophagitis, gastric ulcer and duodenitis Umbilical hernia repaired 1995,1997,2001,2003 Hyperparathyroidism, unspecified (02/09/11) 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[facility] [place]lipidemia Gastroesophageal reflux disease with esophagitis (02/03/15) Essential hypertension (01/16/13) severe and labile Diverticulitis of large intestine without perforation or abscess with bleeding Bleeding hemorrhoids (01/08/13) rectal bleeding ([place] [facility] [place] internal hemorrhoids and diverticuli) Surgical History H/O aortic valve replacement History of kidney transplant TRANSPLANT, KIDNEY (~1997) LEFT Abdominal hysterectomy (~2006) s/p hyst, but cervix still present and needs yearly PAP due to transplant Repair of umbilical hernia 1995,1997,2001,2003 Family History Mother Essential hypertension Personal history of malignant neoplasm KIDNEY Heart disease Pulmonary emphysema Father Personal history of malignant neoplasm Pulmonary emphysema Brother Hyperlipidemia Brother Hyperlipidemia Brother No problems noted. Social History Smoking/Tobacco Use Status: Current every day Tobacco Type: cigarettes Smoking risk assessment performed?: Yes Alcohol Intake: former Drug use: Daily Substance use type: marijuana Details: mostly edibles Housing: apartment Current gender identity: female Do you feel safe at home: Yes Do you feel safe in your relationship?: Yes
[2023-10-02 15:01] VITALS: RESP 3; RESP 5; O2SAT 97
[2023-10-02] MEDS: Albuterol/Ipratropium 3 ML UPD VIAL 9 ML UPD (15:01)
[2023-10-02 15:52] VITALS: BP 147/78; PULSE 88; RESP 16; O2SAT 98
[2023-10-02 16:04] VITALS: BP 141/76; PULSE 94; RESP 16; O2SAT 98
== END 2023-10-02 16:05 | disposition home or self-care (01) ==
PROVIDERS: Emergency Provider Emergency Medicine; PCP Family Medicine
DX: J44.1 Chronic obstructive pulmonary disease with (acute) exacerbation (principal); R06.02 Shortness of breath; I10 Essential (primary) hypertension
CPT/HCPCS: 94640; 99283; J7620

== ENCOUNTER 2023-10-27 11:57 | Emergency (ER) | payer OTHER, SELFPAY ==
[2023-10-27 12:03] VITALS: BP 105/44; PULSE 72; RESP 15; TEMP 36.7; O2SAT 99
--- NOTE | 2023-10-27 13:37 | W.ED.GENAD ---
Discharge Plan Discharge Details Chief Complaint: Fall/Non TraumaCriteria Primary Care Provider: Chano Neves ED Provider: Kristie Mathews [place] Meds and New Rx's Prescriptions: No Action tiotropium bromide [Spiriva with HandiHaler] 18 mcg capsule, w/inhalation device 1 cap inhalation DAILY Qty: 1 0RF Rx Instructions: puncture 1 cap using device; one dose = 2 [facility] trazodone 50 mg tablet 50 mg PO HS PRN Rx Instructions: 1 TAB HS fluoxetine 10 mg tablet 10 mg PO DAILY Qty: 30 1RF aspirin 81 MG tablet,chewable 81 mg PO DAILY atorvastatin 40 mg tablet 20 mg PO DAILY epinephrine 0.3 mg/0.3 mL auto-injector 0.3 mg IM ONCE PRN Rx Instructions: as a single dose; may repeat once albuterol sulfate [Ventolin HFA] 90 mcg/actuation HFA aerosol inhaler 2 puff inhalation QID PRN (Reason: shortness of breath or wheezing) Qty: 8.5 5RF ipratropium-albuterol 0.5 mg-3 mg(2.5 mg base)/3 mL solution for nebulization 3 ml inhalation Q4H PRN (Reason: shortness of breath or wheezing) Qty: 180 3RF minoxidil 2.5 mg tablet 2.5 mg PO QHS omeprazole 40 mg Capsule,Delayed Release(Dr/Ec) 40 mg PO BID albuterol sulfate 2.5 mg /3 mL (0.083 %) solution for nebulization 2.5 mg inhalation Q6H PRN (Reason: shortness of breath or wheezing) Qty: 3 0RF Rx Instructions: [facility] ([facility] Aerochamber MV Spacer MISCELLANEOUS HPI General Date/Time Provider Initiated Documentation: 10/27/23 12:34. Limitations to Documentation: no limitations. Information obtained by: patient, RN notes reviewed and old records reviewed. History of Present Illness 58 year old F presents to the emergency department with the chief complaint of head injury, left hip and left knee pain after fall , described as moderate, Quality is described as aching, and is localized to the head, left and lower extremity. Patient reports no radiation. Patient started experiencing this day(s) (1) and it has been constant. Immobilization improves symptom(s), Movement worsens symptoms . Patient notes no other symptoms.. Patient did receive the following treatments prior to arrival, none Related Data Home Medications ?Medication ?Instructions ?Recorded ?Confirmed aspirin 81 mg chewable tablet 81 mg PO DAILY 05/24/16 10/27/23 inhalational spacing device 01/26/19 10/27/23 (Aerochamber MV spacer) omeprazole 40 mg capsule,delayed 40 mg PO BID 03/18/19 10/27/23 release atorvastatin 40 mg tablet 20 mg PO DAILY 10/24/19 10/27/23 tiotropium bromide 18 mcg capsule 1 cap inhalation DAILY #1 inh 02/16/21 10/27/23 with inhalation device (Spiriva with HandiHaler) epinephrine 0.3 mg/0.3 mL 0.3 mg IM ONCE PRN 01/04/23 10/27/23 injection, auto-injector albuterol sulfate 2.5 mg/3 mL 2.5 mg (3 mL) inhalation Q6H PRN 01/16/23 10/27/23 (0.083 %) solution for nebulization shortness of breath or wheezing #3 mL albuterol sulfate 90 mcg/actuation 2 puff inhalation QID PRN 01/24/23 10/27/23 aerosol inhaler (Ventolin HFA) shortness of breath or wheezing #8.5 grams ipratropium 0.5 mg-albuterol 3 mg 3 ml inhalation Q4H PRN shortness 06/27/23 10/27/23 (2.5 mg base)/3 mL nebulization of breath or wheezing #180 mL soln minoxidil 2.5 mg tablet 2.5 mg PO QHS 06/30/23 10/27/23 trazodone 50 mg tablet 50 mg PO HS PRN 06/30/23 10/05/23 fluoxetine 10 mg tablet 10 mg PO DAILY #30 tabs 10/05/23 10/27/23 Previous Rx's ?Medication ?Instructions ?Recorded tiotropium bromide 18 mcg capsule 1 cap inhalation DAILY #1 inh 02/16/21 with inhalation device (Spiriva with HandiHaler) albuterol sulfate 2.5 mg/3 mL 2.5 mg (3 mL) inhalation Q6H PRN 01/16/23 (0.083 %) solution for nebulization shortness of breath or wheezing #3 mL albuterol sulfate 90 mcg/actuation 2 puff inhalation QID PRN 01/24/23 aerosol inhaler (Ventolin HFA) shortness of breath or wheezing #8.5 grams ipratropium 0.5 mg-albuterol 3 mg 3 ml inhalation Q4H PRN shortness 06/27/23 (2.5 mg base)/3 mL nebulization of breath or wheezing #180 mL soln fluoxetine 10 mg tablet 10 mg PO DAILY #30 tabs 10/05/23 Allergies Allergy/AdvReac Type Severity Reaction Status Date / Time cephalexin monohydrate (From Allergy Severe trouble Verified 10/05/23 10:05 Keflex) breathing colchicine Allergy Unknown Verified 10/05/23 10:05 allopurinol AdvReac Intermediate gout Verified 10/05/23 10:05 breakout erythromycin base AdvReac Intermediate gout Verified 10/05/23 10:05 breakout General Stated Complaint: Fall/Non TraumaCriteria AWA: 3 Review of Systems Constitutional Constitutional: Reports as per HPI, Denies chills, Denies fever(s), Denies headache(s) and Denies weakness ENT Ears, Nose, Mouth, and Throat: Denies headache(s) Cardiovascular Cardiovascular: Reports as per HPI, Denies chest pain and Denies dyspnea (has SOB at baseline with COPD, on O2, no acute change) Respiratory Respiratory: Reports as per HPI, Denies cough and Denies dyspnea (has SOB at baseline with COPD, on O2, no acute change) Musculoskeletal Musculoskeletal: Reports as per HPI and Denies tingling Integumentary/Breasts Skin/Breast: Reports as per HPI (swelling over left hip and head), Denies rash and Denies wounds Neurologic Neurologic: Reports as per HPI, Denies headache(s), Denies tingling, Denies paresthesias and Denies weakness Exam Const General: cooperative, comfortable, no acute distress, well developed, frail appearing and ill appearing chronically Nutritional Appearance: well nourished and cachectic Orientation: alert and awake [facility] Head: normal to inspection, no palpable skull fracture, no Browne's sign and contusion (left upper, no laceration) 0.79 in Neck Neck: normal visual inspection and full ROM Resp Effort & Inspection: normal respiratory effort, able to speak in complete sentences and no respiratory distress Cardio Rate: regular rate Rhythm: regular rhythm Back/Spine/Pelvis Cervical Spine: normal cervical lordosis, cervical ROM normal, No cervical spasm, cervical spinal tenderness and No step off deformity Skin General skin exam: no rashes or lesions noted Lesions: no lesions Rashes: no rashes Trauma: no lacerations or abrasions Neuro General: patient alert and patient awake Cognition: normal cognition Speech: speech normal Gait: normal gait Motor: muscle tone normal throughout Sensory Exam: no sensory deficits noted Psych Appearance: grossly normal and well kempt Mental Status: mental status grossly normal Speech and Movement: speech and movement normal Course Vital Signs Vital signs: Vital Signs Temperature 36.7 C 10/27/23 12:03 Pulse 72 10/27/23 12:03 Respiratory Rate 15 10/27/23 12:03 Blood Pressure 105/44 L 10/27/23 12:03 Pulse Oximetry 99 10/27/23 12:03 Temperature 36.7 C 10/27/23 12:03 Temperature Source Tympanic 10/27/23 12:03 Pulse 72 10/27/23 12:03 Respiratory Rate 15 10/27/23 12:03 Blood Pressure 105/44 L 10/27/23 12:03 Blood Pressure Position Sitting 10/27/23 12:03 Pulse Oximetry 99 10/27/23 12:03 Oxygen Delivery Method Room Air 10/27/23 12:03 Oxygen Flow Rate 0 10/27/23 12:03 Pain Level 5 10/27/23 12:03 Medical Decision Making Patient is a pleasant 58-year-old female with past medical history significant for cardiovascular disease, right-sided heart failure, depression, upper GI bleed, COPD, on dialysis, presenting for evaluation after fall. She reports that she lost her balance while trying to davis to the bathroom yesterday. States that she tripped over the toilet and fell striking her head on the toilet paper andrade. Did not lose consciousness. States she is also having some neck pain like I have been leaning my head forward for a long time. Also reports that she has pain in the left hip and left knee. Has noted swelling in both areas. States she has been ambulating with her cane but does have pain with doing so. Did have dialysis today. Denies any continued headache, LOC. On exam, patient appears chronically ill. She is on 2 L nasal cannula. This is baseline for the patient. She does have a quarter sized area of swelling along the left side of her head but no evidence of laceration or break in the skin. She has some vague neck tenderness but no specific area of discomfort. She has been sitting hunched over consistent with her current discomfort and description. She also has swelling along the lateral aspect of the left hip over the greater trochanter and a small effusion at the knee. Given the patient load in the department, unable to undress during initial evaluation, will need to assess hip once were able to get her to her room. There is no evidence of obvious acute fracture nor joint space narrowing. However, there is a prominent joint effusion signifying internal derangement. In addition, there is a subtle lucency in the mid-lateral aspect of the tibial plateau evident on 2 images. Cannot exclude subtle tibial plateau fracture. IMPRESSION: Subtle tibial plateau finding as described above. Prominent joint effusion-possible hemarthrosis. Recommend follow-up CT Two views No evidence of acute pelvic hip fracture. Additional lateral the left hip does not reveal a fracture nor joint space narrowing nor osteophytes. Right hip unremarkable. There are multiple surgical clips in left side of the pelvis noted. Also what appears to be a hernia mesh on the left side and also what appears to be numerous gallstones on the right side IMPRESSION: No acute osseous findings Incidental soft tissue findings as above including what appears to be multiple gallstones BRAIN: There are no skull fractures nor fluid in the visualized paranasal sinuses. There is no evidence of intracranial hemorrhage, mass effect, or shift of midline structures. There are no extra-axial fluid collections. The ventricles are not enlarged or shifted and there is no blood within the ventricular system nor within the basal cisterns. Tiny hyperechoic focus in the high right side of the brain frontal lobe is unchanged and is probably a vessel. The amount of periventricular hypodensity is unchanged from 07/03/2020. No new findings. CERVICAL SPINE: There is no evidence of acute fracture.. No significant prevertebral soft tissue swelling. There is mild anterolisthesis of C2 upon C3 related to facet arthropathy. This was not evident on the cervical CT scan 2019. The amount of degenerative change in facet joints at this level has significantly increased, particularly on the left side where there is some widening of the left facet joint when compared to the right facet joint but no malalignment. There is also chronic advanced disc space narrowing at C3-4, C4-5, and C5-6 levels. This is similar at C 4-5 level but was not evident at C3-4 on the 2019 study. C5-6 level is chronically narrowed disc space. C6-7 disc space maintains normal height. Facet joints at the lower 2 levels remain unremarkable without degenerative change. No listhesis at these levels although there is some facet arthropathy. No significant osseous lesions evident. IMPRESSION: No acute intracranial findings on this noninfused CT scan of the brain. No evidence of cervical spine fracture, malalignment, nor acute compromise of the cervical spinal canal. However, there is significant multilevel increased degenerative disc disease and facet arthropathy when compared to the spine prior CT scan of the cervical spine performed September 2018. Will obtain CT as advised above. At end of my shift, care transitioned to oncoming clinician with CT and disposition pending. Quality:SDOH Health Related Social Needs: No Data to Display PFSH All Active Problems (Updated 10/09/23 @ 00:09 by GETACHEW MELENDEZ) COPD exacerbation (Acute) Thoracic aortic aneurysm (Acute) 4 cm 09/2023 Anemia (Chronic) Bilateral pulmonary infiltrates (Acute) Acute exacerbation of chronic obstructive pulmonary disease (Acute) Anxiety disorder (Acute) Shoulder pain, right (Acute) Vaginal bleeding (Acute) Thrombocytopenia (Chronic) Angioedema (Acute) Vaginal lesion (Acute) ESRD on dialysis (Chronic) On hemodialysis currently using central catheter[facility]nephrology at [facility] receives dialysis at [facility] region Depression (Acute 08/28/14) Gallstones (Acute) COPD (chronic obstructive pulmonary disease) (Chronic) [facility] at [facility] Central venous catheter in place (Acute [place]10/29/19[place] [facility] [place] Tricuspid regurgitation (Acute) s/p tricuspid valve replacement 02/2020, bovine Cirrhosis, alcoholic (Acute) POLST (Physician Orders for Life-Sustaining Treatment) (Acute) COLST completed 02/13/2020, DNR/DNI. Hemorrhage of arteriovenous fistula (Acute) Ventral hernia (Acute) Hypertension (Chronic) Aortic valve replaced (Acute) Bovine-with [facility] Personal history of nicotine dependence (Acute) 02/2021 Tobacco abuse (Acute) Lung nodule, solitary (Acute) Hemoptysis (Acute) Open abdominal wall wound (Acute) Fever (Acute) Neck pain (Acute) Right upper quadrant abdominal pain (Acute) Medical History Axillary lymphadenopathy Secondary hyperparathyroidism (of renal origin) Right heart failure CVD (cardiovascular disease) Macular degeneration of left eye (~10/17/19[place] [facility] [place]ail dystrophy Cannabis dependence Cyst of ovary (08/20/12) Depression (09/14/12) Recurrent urinary tract infection Upper GI bleed (05/17/14) 05/15/[place] [facility] [place], esophagitis, gastric ulcer and duodenitis Umbilical hernia repaired 1995,1997,2001,2003 Hyperparathyroidism, unspecified (02/09/11) 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[facility] [place] Hyperlipidemia Gastroesophageal reflux disease with esophagitis (02/03/15) Essential hypertension (01/16/13) severe and labile Diverticulitis of large intestine without perforation or abscess with bleeding Bleeding hemorrhoids (01/08/13) rectal bleeding [place] [facility] [place] internal hemorrhoids and diverticuli) Surgical History H/O aortic valve replacement History of kidney transplant TRANSPLANT, KIDNEY (~1997) LEFT Abdominal hysterectomy (~2006) s/p hyst, but cervix still present and needs yearly PAP due to transplant Repair of umbilical hernia 1995,1997,2001,2003 Family History Mother Essential hypertension Personal history of malignant neoplasm KIDNEY Heart disease Pulmonary emphysema Father Personal history of malignant neoplasm Pulmonary emphysema Brother Hyperlipidemia Brother Hyperlipidemia Brother No problems noted. Social History Smoking/Tobacco Use Status: Current every day Tobacco Type: cigarettes Smoking risk assessment performed?: Yes Alcohol Intake: former Drug use: Daily Substance use type: marijuana Details: mostly edibles Housing: apartment Current gender identity: female Do you feel safe at home: Yes Do you feel safe in your relationship?: Yes Sign Out Sign Out Data: Sign Out Comment: Question of tibial plateau fx, CT pending, patient in CT currently. Last updated by Kristie Mathews PA at 10/27/23 15:35
--- NOTE | 2023-10-27 13:45 | DI.CT_ITS ---
Exam(s) CT HEAD CERVICAL SPINE WO EXAM: CT HEAD CERVICAL SPINE WO CLINICAL HISTORY: fall, strruck left side of head. TECHNIQUE: Imaging Protocol: Axial computed tomography images with coronal and sagittal reformatted images were created and reviewed COMPARISON: CT CT CERVICAL SPINE WO from 09/17/[address] HEAD WO from 07/03/2020 FINDINGS: BRAIN: There are no skull fractures nor fluid in the visualized paranasal sinuses. There is no evidence of intracranial hemorrhage, mass effect, or shift of midline structures. There are no extra-axial fluid collections. The ventricles are not enlarged or shifted and there is no blo od within the ventricular system nor within the basal cisterns. Tiny hyperechoic focus in the high right side of the brain frontal lobe is unchanged and is probably a vessel. The amount of periventricular hypodensity is unchanged from 07/03/2020. No new findings. CERVICAL SPINE: There is no evidence of acute fracture.. No significant prevertebral soft tissue swelling. There is mild anterolisthesis of C2 upon C3 related to facet arthropathy. This was not evident on th e cervical CT scan 2018. The amount of degenerative change in facet joints at this level has signifi cantly increased, particularly on the left side where there is some widening of the left facet joint when compared to the right facet joint but no malalignment. There is also chronic advanced disc spac e narrowing at C3-4, C4-5, and C5-6 levels. This is similar at C 4-5 level but was not evident at C3 -4 on the 2019 study. C5-6 level is chronically narrowed disc space. C6-7 disc space maintains norm al height. Facet joints at the lower 2 levels remain unremarkable without degenerative change. No l isthesis at these levels although there is some facet arthropathy. No significant osseous lesions evident. IMPRESSION: No acute intracranial findings on this noninfused CT scan of the brain. No evidence of cervical spine fracture, malalignment, nor acute compromise of the cervical spinal can al. However, there is significant multilevel increased degenerative disc disease and facet arthropat hy when compared to the spine prior CT scan of the cervical spine performed September 2018. Called by myself to ER 10/27/2023 at 2:38 p.m. RADIATION DOSE DELIVERED: Total DLP DATA REPOSITORY: All CT scans at this facility are submitted to the National Radiology Data Registry (NRDR) Dose Index Registry (DIR) with the [employer] (ACR). RADIATION OPTIMIZATION: All CT scans at this facility use at least one of these dose optimization te chniques: automated exposure control; mA and/or kV adjustment per patient size (includes targeted exa ms where dose is matched to clinical indication); or iterative reconstruction.
--- NOTE | 2023-10-27 13:45 | DI.RAD_ITS ---
Exam(s) XR KNEE LT 4V AP,LAT,RUBIA,PAT EXAM: XR KNEE LT 4V AP,LAT,RUBIA,PAT CLINICAL HISTORY: fall, posterior pain. TECHNIQUE: 2D digital imaging was performed. COMPARISON: No exams were available for comparison FINDINGS: Four views. There is no evidence of obvious acute fracture nor joint space narrowing. However, there is a promin ent joint effusion signifying internal derangement. In addition, there is a subtle lucency in the mi d-lateral aspect of the tibial plateau evident on 2 images. Cannot exclude subtle tibial plateau fra cture. IMPRESSION: Subtle tibial plateau finding as described above. Prominent joint effusion-possible hemarthrosis. R ecommend follow-up CT DATA REPOSITORY: RADIATION DOSE DELIVERED:
--- NOTE | 2023-10-27 13:45 | DI.RAD_ITS ---
Exam(s) XR HIP LT COMPLETE AP PELVIS EXAM: XR HIP LT COMPLETE AP PELVIS CLINICAL HISTORY: fall, pain laterally. TECHNIQUE: 2D digital imaging was performed. COMPARISON: CT CT CHEST W from 09/29/2023 FINDINGS: Two views No evidence of acute pelvic hip fracture. Additional lateral the left hip does not reveal a fracture nor joint space narrowing nor osteophytes. Right hip unremarkable. There are multiple surgical clips in left side of the pelvis noted. Also what appears to be a hernia mesh on the left side and also what appears to be numerous gallstones on the right side IMPRESSION: No acute osseous findings Incidental soft tissue findings as above including what appears to be multiple gallstones. DATA REPOSITORY: RADIATION DOSE DELIVERED:
[2023-10-27] MEDS: Acetaminophen 325 MG TAB 650 MG PO (14:44)
--- NOTE | 2023-10-27 14:45 | DI.CT_ITS ---
Exam(s) CT LOWER EXTREMITY LT WO EXAM: CT LOWER EXTREMITY LT WO CLINICAL HISTORY: evaluation possible tibial plat fx. TECHNIQUE: Imaging Protocol: Axial computed tomography images with coronal and sagittal reformatted images were created and reviewed. CONTRAST MATERIAL: Intravenous: None COMPARISON: Plain films earlier today. FINDINGS: OSSEOUS: There is indeed a lateral tibial plateau fracture corresponding to the finding on cyst plain films. This exhibits uniform mild depression of 1.5 mm. This fracture does not appear comminuted. The main fracture fragment is 2.5 cm wide by 2.1 cm AP x 0.9 cm deep. The medium tibial plateau is intact. No osseous findings in the femoral condyles nor in the fibular head and neck nor in the patella. Knee joint effusion-hemarthrosis noted. IMPRESSION: Non comminuted minimally depressed lateral tibial plateau fracture, as described above, this correspo nding to the finding seen on plain films. Called by myself to ER provider 10/27/2023 at 3:45 p.m. RADIATION DOSE DELIVERED: Total DLP DATA REPOSITORY: All CT scans at this facility are submitted to the National Radiology Data Registry (NRDR) Dose Index Registry (DIR) with the [employer] (ACR). RADIATION OPTIMIZATION: All CT scans at this facility use at least one of these dose optimization te chniques: automated exposure control; mA and/or kV adjustment per patient size (includes targeted exa ms where dose is matched to clinical indication); or iterative reconstruction.
--- NOTE | 2023-10-27 16:00 | W.EDPROG ---
Date of service: 10/27/23 Time of Service: 16:00 Medical Decision Making Patient signed out to me by Kristie Sawant and SHIRA for history of mechanical fall with injury to left hip and knee. Patient is ambulatory with cane but stating significant knee discomfort. Plain film imaging revealed potential tibial fracture so CT imaging was recommended. Patient pending imaging at time of signout Received radiology report that patient does have a lateral tibial plateau fracture. Given that patient is a dialysis patient will consult with our orthopedist but doubt patient would be an appropriate case for our anesthesia group given her multiple comorbidities. Spoke with Dr. Balderrama who recommended knee immobilizer, nonweightbearing, and walker or crutch use for ambulation. Patient to follow-up in their office as he feels that the case is more than likely nonoperative given minimal depression. Discussed this with patient patient states she already has a walker and states good understanding to remain nonweightbearing. Will give patient limited supply of narcotics to help with pain control given significant fracture and patient stating difficulty with discomfort and sleep. After discussion of diagnosis and plan of care patient has no further needs, questions, or concerns and states clear understanding to return to the emergency department for any worsening symptoms. This documentation was generated using FlyClip dictation system, please disregard any oddities of phrase or misspellings. Imaging Data Radiologic Study: Imaging: CT Scan Radiologist's impression: EXTREMITY LT WO CLINICAL HISTORY: evaluation possible tibial plat fx. TECHNIQUE: Imaging Protocol: Axial computed tomography images with coronal and sagittal reformatted images were created and reviewed. CONTRAST MATERIAL: Intravenous: None COMPARISON: Plain films earlier today. FINDINGS: OSSEOUS: There is indeed a lateral tibial plateau fracture corresponding to the finding on cyst plain films. This exhibits uniform mild depression of 1.5 mm. This fracture does not appear comminuted. The main fracture fragment is 2.5 cm wide by 2.1 cm AP x 0.9 cm deep. The medium tibial plateau is intact. No osseous findings in the femoral condyles nor in the fibular head and neck nor in the patella. Knee joint effusion-hemarthrosis noted. IMPRESSION: Non comminuted minimally depressed lateral tibial plateau fracture, as described above, this corresponding to the finding seen on plain films. Called by myself to ER provider 10/27/2023 at 3:45 p.m. Quality:SDOH Health Related Social Needs: No Data to Display Exam Const General: cooperative, no acute distress and not ill appearing Orientation: alert, awake and oriented x3 HENMT Mouth: moist mucous membranes Resp Effort & Inspection: normal respiratory effort, able to speak in complete sentences and no respiratory distress Cardio Pulses: dorsalis pedis present Neuro General: patient alert, patient awake and patient oriented x3 Extrem Left lower extremity: hip/thigh Details: tenderness Location: of the hip Location: laterally and normal ROM; no swelling and knee Details: tenderness Location: of the lateral joint line, swelling and abnormal ROM Details: pain with active ROM; able to extend lower leg actively Sign Out Sign Out Data: Sign Out Comment: Question of tibial plateau fx, CT pending, patient in CT currently. Last updated by Kristie Mathews PA at 10/27/23 15:35 Discharge Plan Disposition Patient Disposition: Home Condition: Stable Discharge Details Clinical Impression: Closed fracture of left tibial plateau, Contusion of multiple sites, Fall Primary Care Provider: Chano Neves ED Provider: Benjy Espinoza Home Meds and New Rx's Prescriptions: No Action tiotropium bromide [Spiriva with HandiHaler] 18 mcg capsule, w/inhalation device 1 cap inhalation DAILY Qty: 1 0RF Rx Instructions: puncture 1 cap using device; one dose = 2 [facility]ations from [facility] trazodone 50 mg tablet 50 mg PO HS PRN Rx Instructions: 1 TAB HS fluoxetine 10 mg tablet 10 mg PO DAILY Qty: 30 1RF aspirin 81 MG tablet,chewable 81 mg PO DAILY atorvastatin 40 mg tablet 20 mg PO DAILY epinephrine 0.3 mg/0.3 mL auto-injector 0.3 mg IM ONCE PRN Rx Instructions: as a single dose; may repeat once albuterol sulfate [Ventolin HFA] 90 mcg/actuation HFA aerosol inhaler 2 puff inhalation QID PRN (Reason: shortness of breath or wheezing) Qty: 8.5 5RF ipratropium-albuterol 0.5 mg-3 mg(2.5 mg base)/3 mL solution for nebulization 3 ml inhalation Q4H PRN (Reason: shortness of breath or wheezing) Qty: 180 3RF minoxidil 2.5 mg tablet 2.5 mg PO QHS omeprazole 40 mg Capsule,Delayed Release(Dr/Ec) 40 mg PO BID albuterol sulfate 2.5 mg /3 mL (0.083 %) solution for nebulization 2.5 mg inhalation Q6H PRN (Reason: shortness of breath or wheezing) Qty: 3 0RF Rx Instructions: [facility] ([facility] Aerochamber MV Spacer MISCELLANEOUS Discharge Instructions Instructions: Lower leg fracture, Preventing Falls ED Additional Instructions: You may use your provided limited narcotics in case of severe pain and discomfort. Please also keep the leg elevated and you may apply ice. Please keep the knee immobilizer in place and do not perform any weightbearing activities until cleared by orthopedist. If you have any new or significant worsening of symptoms feel free to return to the emergency department for reassessment Referrals: [facility] [Provider Group] (Please call the office on Monday for arrangement of follow-up appointment) Discharge Data Discharge Date/Time-TO BE ENTERED AT DEPARTURE: 10/27/23 16:36
== END 2023-10-27 16:36 | disposition home or self-care (01) ==
PROVIDERS: Emergency Provider Nurse Practitioner Family; PCP Family Medicine
DX: S82.142A Displaced bicondylar fracture of left tibia, initial encounter for closed fracture (principal); S79.912A Unspecified injury of left hip, initial encounter; S00.03XA Contusion of scalp, initial encounter; W19.XXXA Unspecified fall, initial encounter; Y92.002 Bathroom of unspecified non-institutional (private) residence as the place of occurrence of the external cause; K21.9 Gastro-esophageal reflux disease without esophagitis; E78.5 Hyperlipidemia, unspecified; F17.210 Nicotine dependence, cigarettes, uncomplicated; J44.9 Chronic obstructive pulmonary disease, unspecified; I12.0 Hypertensive chronic kidney disease with stage 5 chronic kidney disease or end stage renal disease; N18.6 End stage renal disease; Z99.2 Dependence on renal dialysis; Z94.0 Kidney transplant status; Z79.82 Long term (current) use of aspirin; Z79.899 Other long term (current) drug therapy; Z99.81 Dependence on supplemental oxygen
CPT/HCPCS: 00123; 29505; 99284; 70450; 72125; 73502; 73564; 73700

== ENCOUNTER 2023-10-29 20:04 | Emergency (ER) | payer OTHER, SELFPAY ==
[2023-10-29] VITALS (25 sets, daily range): BP systolic 117; BP diastolic 52; PULSE 83–85; RESP 15–22; TEMP 37.1; O2SAT 84–100
--- NOTE | 2023-10-29 19:45 | RT.EKG_ITS ---
APPROVED REPORT Exam: Resting ECG Reason for Exam: chest pain Patient Location: E HR:81 bpm ECG Measurements Heart Rate 81 AXIS FL 167 P 19 QRSd 157 QRS 66 QT 448 T 14 QTc 521 Conclusion Sinus rhythm RBBB. When compared to priors, amplitude increased but morphology largely preserved. No STEMI
[2023-10-29 20:26] LABS: Abs Immature Grans 0.01 10^3/uL (0.0-0.06); Absolute Basophil Count 0.07 10^3/uL (0.0-0.2); Absolute Eosinophil Count 1.08 10^3/uL (0.0-0.7); Absolute Lymphocyte Count 0.64 10^3/uL (1.2-3.4); Absolute Monocyte Count 0.48 10^3/uL (0.1-0.8); Absolute Neutrophil Count 2.74 10^3/uL (1.2-6.7); Basophils % 1.4 %; Eosinophils % 21.5 %; HCT 33.7 % (36.0-46.0); HGB 10.4 g/dL (11.2-15.7); Immature Grans % 0.2 %; Lymphocytes % 12.7 %; MCH 30.7 pg (27.0-33.0); MCHC 30.9 % (32.0-36.0); MCV 99 fL (80-95); MPV 11.8 fL (8.0-11.0); Monocytes % 9.6 %; Neutrophils % 54.6 %; Platelet Count 116 10^3/uL (130-400); RBC 3.39 10^6/uL (3.93-5.22); RDW 15.2 % (11.7-14.6); RDW-SD 55.3 fL; WBC 5.02 10^3/uL (4.4-10.8)
[2023-10-29] MEDS: LORazepam 2 MG/ML VIAL 0.5 MG IVP (20:44)
[2023-10-29 20:48] LABS: ALT 17 U/L (14-59); AST 25 U/L (15-37); Albumin 3.8 g/dL (3.4-5.0); Alkaline Phosphatase 206 U/L (46-116); Anion Gap 11.6 mmol/L (3-11); BUN 44 mg/dL (7-18); Bilirubin, Total 0.79 mg/dL (0.2-1.0); CO2 32.4 mmol/L (21.0-32.0); Chloride 95 mmol/L (98-107); Estimated GFR 5.09 (mL/min/1.73m2); Glucose 95 mg/dL (74-106); Magnesium 2.4 mg/dL (1.8-2.4); Potassium 4.5 mmol/L (3.5-5.1); Sodium 139 mmol/L (136-145); Total Protein 7.2 g/dL (6.4-8.2); Troponin I 53 ng/L (< or =60)
[2023-10-29 21:24] LABS: CREATININE 8.3 mg/dL (0.55-1.02); NT-proBNP > 35000 pg/mL (<300)
--- NOTE | 2023-10-29 21:45 | DI.RAD_ITS ---
Exam(s) XR CHEST 2V PA LATERAL EXAM: XR CHEST 2V PA LATERAL CLINICAL HISTORY: Chest pain, shortness of breath TECHNIQUE: 2D digital imaging was performed. Two views. COMPARISON: CT CT CHEST W from 09/29/2023 CR,XR XR PORTABLE CHEST AP from 09/29/2023 FINDINGS: HEART: Normal size. Aorta: Enlarged, unchanged. Prostatic aortic and tricuspid valves. PULMONARY VASCULATURE: Prominent, unchanged. MEDIASTINUM: Unremarkable. LUNGS: Clear. No focal infiltrate. Mild emphysematous changes. PLEURAL SPACE: No pleural effusion or pneumothorax. BONE:Unremarkable for age. SOFT TISSUES: Unremarkable. IMPRESSION: Cardiomegaly. No acute abnormality. DATA REPOSITORY: RADIATION DOSE DELIVERED:
[2023-10-29 21:49] LABS: COVID-19 PCR Negative (Negative); Influenza A PCR Negative (Negative); Influenza B PCR Negative (Negative); RSV PCR Negative (Negative)
[2023-10-29 21:50] LABS: Source NASOPHARYNX
--- NOTE | 2023-10-29 22:23 | RESPIRATORY ---
RT was paged to see pt. regarding pt's O2 concentrator issues. Pt. stated that she does not get O2 through [facility]. We can not send pt. with hospital's tank unless pt's with [facility]. Pt. needs to stay in hospital until safe to go or until we get the pt's DME informations. Tank does not last very longer.
[2023-10-29] MEDS: Acetaminophen 500 MG TAB 1000 MG PO (23:39)
--- NOTE | 2023-10-29 23:40 | DI.VRAD_ITS ---
PROCEDURE INFORMATION: Exam: XR Chest Exam date and time: 10/29/2023 10:07 PM Age: 58 years old Clinical indication: Shortness of breath; Other: Chest pain TECHNIQUE: Imaging protocol: Radiologic exam of the chest. Views: 2 views. COMPARISON: CT CHEST W 09/29/2023 9:58 AM FINDINGS: Lungs: No gross focal pulmonary consolidation is seen. Pleural spaces: No pleural effusion or pneumothorax is demonstrated. Heart/Mediastinum: The heart is enlarged. There are prosthetic tricuspid and aortic valves. There has been a prior median sternotomy. Bones/joints: The visualized bony structures appear grossly intact. IMPRESSION: 1. No active disease is seen in the chest. 2. Prominent cardiomegaly. Prosthetic tricuspid and aortic valves. Dictated and Authenticated by: Cash Rodriguez MD. Ordering:JESSIKA Burleson MD
--- NOTE | 2023-10-29 23:47 | ED.GENADUL_ITS ---
Discharge Plan Discharge Details Chief Complaint: SOB Clinical Impression: Anxiety about health, ESRD on dialysis, COPD (chronic obstructive pulmonary disease), Dependence on continuous supplemental oxygen Primary Care Provider: Chano Neves ED Provider: Benjy Espinoza Home Meds and New Rx's Prescriptions: No Action tiotropium bromide [Spiriva with HandiHaler] 18 mcg capsule, w/inhalation device 1 cap inhalation DAILY Qty: 1 0RF Rx Instructions: puncture 1 cap using device; one dose = 2 inhalations from [facility] trazodone 50 mg tablet 50 mg PO HS PRN Rx Instructions: 1 TAB HS fluoxetine 10 mg tablet 10 mg PO DAILY Qty: 30 1RF aspirin 81 MG tablet,chewable 81 mg PO DAILY atorvastatin 40 mg tablet 20 mg PO DAILY epinephrine 0.3 mg/0.3 mL auto-injector 0.3 mg IM ONCE PRN Rx Instructions: as a single dose; may repeat once albuterol sulfate [Ventolin HFA] 90 mcg/actuation HFA aerosol inhaler 2 puff inhalation QID PRN (Reason: shortness of breath or wheezing) Qty: 8.5 5RF ipratropium-albuterol 0.5 mg-3 mg(2.5 mg base)/3 mL solution for nebulization 3 ml inhalation Q4H PRN (Reason: shortness of breath or wheezing) Qty: 180 3RF minoxidil 2.5 mg tablet 2.5 mg PO QHS omeprazole 40 mg Capsule,Delayed Release(Dr/Ec) 40 mg PO BID albuterol sulfate 2.5 mg /3 mL (0.083 %) solution for nebulization 2.5 mg inhalation Q6H PRN (Reason: shortness of breath or wheezing) Qty: 3 0RF Rx Instructions: [facility] Aerochamber MV Spacer MISCELLANEOUS HPI General Mode of arrival: EMS . Date/Time Provider Initiated Documentation: 10/29/23 20:07 . Limitations to Documentation: no limitations . Information obtained by: patient and RN notes reviewed . History of Present Illness 58 year old F presents to the emergency department with the chief complaint of Shortness of breath, chest pain, described as moderate and similar to prior episodes, Patient started experiencing this hour(s) (1) and it has been constant. No relieving factors improve symptom(s), Other factors that worsen symptoms (Home oxygen machine not working) . Patient notes other (Anxiety). Patient did receive the following treatments prior to arrival, other (Aspirin and Zofran by EMS) Related Data Home Medications ?Medication ?Instructions ?Recorded ?Confirmed aspirin 81 mg chewable tablet 81 mg PO DAILY 05/24/16 10/29/23 inhalational spacing device 01/26/19 10/27/23 (Aerochamber MV spacer) omeprazole 40 mg capsule,delayed 40 mg PO BID 03/18/19 10/29/23 release atorvastatin 40 mg tablet 20 mg PO DAILY 10/24/19 10/29/23 tiotropium bromide 18 mcg capsule 1 cap inhalation DAILY #1 inh 02/16/21 10/29/23 with inhalation device (Spiriva with HandiHaler) epinephrine 0.3 mg/0.3 mL 0.3 mg IM ONCE PRN 01/04/23 10/29/23 injection, auto-injector albuterol sulfate 2.5 mg/3 mL 2.5 mg (3 mL) inhalation Q6H PRN 01/16/23 10/29/23 (0.083 %) solution for nebulization shortness of breath or wheezing #3 mL albuterol sulfate 90 mcg/actuation 2 puff inhalation QID PRN 01/24/23 10/29/23 aerosol inhaler (Ventolin HFA) shortness of breath or wheezing #8.5 grams ipratropium 0.5 mg-albuterol 3 mg 3 ml inhalation Q4H PRN shortness 06/27/23 10/29/23 (2.5 mg base)/3 mL nebulization of breath or wheezing #180 mL soln minoxidil 2.5 mg tablet 2.5 mg PO QHS 06/30/23 10/29/23 trazodone 50 mg tablet 50 mg PO HS PRN 06/30/23 10/05/23 fluoxetine 10 mg tablet 10 mg PO DAILY #30 tabs 10/05/23 10/29/23 Previous Rx's ?Medication ?Instructions ?Recorded tiotropium bromide 18 mcg capsule 1 cap inhalation DAILY #1 inh 02/16/21 with inhalation device (Spiriva with HandiHaler) albuterol sulfate 2.5 mg/3 mL 2.5 mg (3 mL) inhalation Q6H PRN 01/16/23 (0.083 %) solution for nebulization shortness of breath or wheezing #3 mL albuterol sulfate 90 mcg/actuation 2 puff inhalation QID PRN 01/24/23 aerosol inhaler (Ventolin HFA) shortness of breath or wheezing #8.5 grams ipratropium 0.5 mg-albuterol 3 mg 3 ml inhalation Q4H PRN shortness 06/27/23 (2.5 mg base)/3 mL nebulization of breath or wheezing #180 mL soln fluoxetine 10 mg tablet 10 mg PO DAILY #30 tabs 10/05/23 Allergies Allergy/AdvReac Type Severity Reaction Status Date / Time cephalexin monohydrate (From Allergy Severe trouble Verified 10/29/23 20:12 Keflex) breathing colchicine Allergy Unknown Verified 10/29/23 20:12 allopurinol AdvReac Intermediate gout Verified 10/29/23 20:12 breakout erythromycin base AdvReac Intermediate gout Verified 10/29/23 20:12 breakout General Stated Complaint: SOB AWA: 3 Review of Systems Constitutional Constitutional: Denies chills, Denies fever(s), Denies headache(s) and Reports malaise ENT Ears, Nose, Mouth, and Throat: Denies headache(s) Cardiovascular Cardiovascular: Reports chest pain, Denies syncope, Denies lightheadedness, Reports dyspnea and Reports dyspnea on exertion Respiratory Respiratory: Reports dyspnea and Reports dyspnea on exertion Gastrointestinal Gastrointestinal: Denies abdominal pain, Reports nausea and Denies vomiting Neurologic Neurologic: Denies syncope and Denies headache(s) Exam Const General: cooperative, frail appearing and ill appearing chronically Orientation: alert, awake and oriented x3 Resp Effort & Inspection: normal respiratory effort, able to speak in complete sentences and no respiratory distress Auscultation: clear to auscultation bilaterally Cardio Rate: regular rate Rhythm: regular rhythm Heart Sounds: S1 normal and S2 normal Skin General skin exam: no rashes or lesions noted Neuro General: patient alert, patient awake, patient oriented x3, moves all extremities and no focal motor deficits Sensory Exam: no sensory deficits noted Course Vital Signs Vital signs: Vital Signs Temperature 37.1 C 10/29/23 20:05 Pulse 85 10/29/23 20:05 Respiratory Rate 22 10/29/23 20:05 Blood Pressure 117/52 L 10/29/23 20:05 Pulse Oximetry 95 10/29/23 20:05 Temperature 37.1 C 10/29/23 20:12 Temperature Source Temporal Artery Scan 10/29/23 20:12 Pulse 85 10/29/23 20:12 Respiratory Rate 15 10/29/23 23:28 Respiratory Effort Normal 10/29/23 23:28 Respiratory Depth Normal 10/29/23 23:28 Respiratory Pattern Normal 10/29/23 23:28 Blood Pressure 117/52 L 10/29/23 20:12 Blood Pressure Mean 72 10/29/23 20:10 Blood Pressure Position Supine 10/29/23 20:12 Pulse Oximetry 92 10/29/23 23:20 Oxygen Delivery Method Nasal Cannula 10/29/23 20:12 Oxygen Flow Rate 2 10/29/23 20:12 Pain Level 0 10/29/23 23:28 Lab/Test Results Lab/Test Results: Laboratory Tests Range/Units 10/29/23 10/29/23 20:19 21:05 WBC (4.4-10.8) 10^3/uL 5.02 RBC (3.93-5.22) 10^6/uL 3.39 L Hgb (11.2-15.7) g/dL 10.4 L Hct (36.0-46.0) % 33.7 L MCV (80-95) fL 99 H MCH (27.0-33.0) pg 30.7 MCHC (32.0-36.0) % 30.9 L RDW (11.7-14.6) % 15.2 H Plt Count (130-400) 10^3/uL 116 L MPV (8.0-11.0) fL 11.8 H Immature Gran % % 0.2 Neutrophils % % 54.6 Lymphocytes % % 12.7 Monocytes % % 9.6 Eosinophils % % 21.5 Basophils % % 1.4 Nucleated RBC % (0.0-0.3) % 0.0 Absolute Neutrophils (1.2-6.7) 10^3/uL 2.74 Absolute Lymphocytes (1.2-3.4) 10^3/uL 0.64 L Absolute Monocytes (0.1-0.8) 10^3/uL 0.48 Absolute Eosinophils (0.0-0.7) 10^3/uL 1.08 H Absolute Basophils (0.0-0.2) 10^3/uL 0.07 Sodium (136-145) mmol/L 139 Potassium (3.5-5.1) mmol/L 4.5 Chloride (98-107) mmol/L 95 L Carbon Dioxide (21.0-32.0) mmol/L 32.4 H Anion Gap (3-11) mmol/L 11.6 H BUN (7-18) mg/dL 44 H Creatinine (0.55-1.02) mg/dL 8.3 H* Est GFR (CKD-EPI 2020) (mL/min/1.73m2) 5.09 Glucose (74-106) mg/dL 95 Calcium (8.5-10.1) mg/dL 8.0 L Magnesium (1.8-2.4) mg/dL 2.4 Total Bilirubin (0.2-1.0) mg/dL 0.79 AST (15-37) U/L 25 ALT (14-59) U/L 17 Alkaline Phosphatase (46-116) U/L 206 H Troponin I (< or =60) ng/L 53 NT-Pro-B Natriuret Pep (<300) pg/mL > 12720 H Total Protein (6.4-8.2) g/dL 7.2 Albumin (3.4-5.0) g/dL 3.8 COVID-19 Source NASOPHARYNX SARS-CoV-2 (PCR) (Negative) Negative Influenza Type A (PCR) (Negative) Negative Influenza Type B (PCR) (Negative) Negative RSV (PCR) (Negative) Negative Medical Decision Making Patient presenting to the emergency department for chief complaint of shortness of breath with some chest pain. Patient states that chest discomfort started an hour ago but shortness of breath has been ongoing. Patient reports since Monday of last week her oxygen concentrator has been alarming. She has called the company to see if they can replace it but unfortunately they have not showed up to replace her machine. Due to this she has went through all of her reserve bottles of oxygen and ran out today causing her to try to use the concentrator again which she has had to turn on and off multiple times to even get it to work. She feels that this is led to her shortness of breath which then caused her to be anxious having her call 911. She states that once paramedics arrived and gave her some aspirin Zofran and oxygen she started feeling better. Physical exam is consistent with patient's baseline and no respiratory distress is noted, stable vital signs, otherwise noncontributory exam. Given patient's multiple comorbidities we will plan on checking patient's labs and EKG. Pending results will give patient nasal cannula oxygen at baseline and will give small amount of Ativan given I feel that the majority of patient symptoms are being driven by her anxiety. Please see physician interpretation for full interpretation of EKG but upon my review patient is in sinus rhythm, has right bundle branch block, rate of 91, does not appear consistent with acute ischemic pattern but will continue to monitor. Reviewed patient's labs show a chronic but stable anemia, low chloride, high carbon oxide, anion gap of 11.6, BUN of 44 and creatinine of 8.3 but of note patient is due for dialysis tomorrow. Initial troponin is negative and nondetected and BNP is greater than 35,000 which is not uncommon for patient. Chest x-ray showed no acute findings. Patient reassessed and does state significant improvement of symptoms with almost near resolution of her chest pain and shortness of breath. Pending delta troponin did call RT to see if there was any way we could assist her given that her home oxygen machine is malfunctioning. Unfortunate we are unable to send patient home with a oxygen tank and given weekend evening no ability to contact medical supply at this time. Will continue with delta troponin but have low suspicion that patient is experiencing ACS. Discussed with patient boarding in the emergency department through the evening to guarantee oxygen delivery and for patient to be discharged in the morning to go to dialysis and then during dialysis for patient or family to contact medical supply company to get a emergent replacement. Patient is agreeable to this plan of care. Second troponin was reviewed and is negative. Of note patient did state that she is considering discussing with primary care or [facility] [place] [facility] given that she is having more difficulty taking care of herself. Did request that care management attempt to assist with oxygen concentrator and either referral of note or informing primary care of patient's consideration of [facility] [place] [facility]. I do feel that this would be beneficial to patient as she states that she is having significant weakness and more difficulties caring for self. Patient signed out to Dr. Mayorga pending discharge in the morning to go to dialysis and patient to remain on oxygen for the evening. Imaging Data Radiologic Study: Imaging: X-Ray Radiologist's impression: Exam(s) PROCEDURE INFORMATION: Exam: XR Chest Exam date and time: 10/29/2023 10:07 PM Age: 58 years old Clinical indication: Shortness of breath; Other: Chest pain TECHNIQUE: Imaging protocol: Radiologic exam of the chest. Views: 2 views. COMPARISON: CT CHEST W 09/29/2023 9:58 AM FINDINGS: Lungs: No gross focal pulmonary consolidation is seen. Pleural spaces: No pleural effusion or pneumothorax is demonstrated. Heart/Mediastinum: The heart is enlarged. There are prosthetic tricuspid and aortic valves. There has been a prior median sternotomy. Bones/joints: The visualized bony structures appear grossly intact. IMPRESSION: 1. No active disease is seen in the chest. 2. Prominent cardiomegaly. Prosthetic tricuspid and aortic valves. Lab Data Lab results reviewed: Yes I reviewed the patient's lab results. Quality:SDOH Health Related Social Needs: No Data to Display PFSH All Active Problems (Updated 10/30/23 @ 01:27 by Benjy Espinoza NP) Dependence on continuous supplemental oxygen (Acute) COPD (chronic obstructive pulmonary disease) (Chronic) Anxiety about health (Acute) Fall (Acute) Contusion of multiple sites (Acute) Closed fracture of left tibial plateau (Acute) COPD exacerbation (Acute) Thoracic aortic aneurysm (Acute) 4 cm 09/2023 Anxiety disorder (Acute) Shoulder pain, right (Acute) Vaginal bleeding (Acute) Thrombocytopenia (Chronic) Angioedema (Acute) Vaginal lesion (Acute) ESRD on dialysis (Chronic) On hemodialysis currently using central catheter-nephrology at [facility] receives dialysis at [facility] Depression (Acute 08/28/14) Gallstones (Acute) COPD (chronic obstructive pulmonary disease) (Chronic) Pulmonary at [facility] Central venous catheter in place (Acute ~10/29/19) [facility], right subclavian-dialysis Tricuspid regurgitation (Acute) s/p tricuspid valve replacement 02/2020, bovine Cirrhosis, alcoholic (Acute) POLST (Physician Orders for Life-Sustaining Treatment) (Acute) COLST completed 02/13/2020, DNR/DNI. 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/19) [facility] Nail dystrophy Cannabis dependence Cyst of ovary (08/20/12) Depression (09/14/12) Recurrent urinary tract infection Upper GI bleed (05/17/14) 05/15/14 [facility] EGD, HH, esophagitis, gastric ulcer and duodenitis Umbilical hernia repaired 1995,1997,2001,2003 Hyperparathyroidism, unspecified (02/09/11) 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[facility] Hyperlipidemia Gastroesophageal reflux disease with esophagitis (02/03/15) Essential hypertension (01/16/13) severe and labile Diverticulitis of large intestine without perforation or abscess with bleeding Bleeding hemorrhoids (01/08/13) rectal bleeding (colonoscopy [facility] 01/01/13 internal hemorrhoids and diverticuli) Surgical History H/O aortic valve replacement History of kidney transplant TRANSPLANT, KIDNEY (~1997) LEFT Abdominal hysterectomy (~2006) s/p hyst, but cervix still present and needs yearly PAP due to transplant Repair of umbilical hernia 1995,1997,2001,2003 Family History Mother Essential hypertension Personal history of malignant neoplasm KIDNEY Heart disease Pulmonary emphysema Father Personal history of malignant neoplasm Pulmonary emphysema Brother Hyperlipidemia Brother Hyperlipidemia Brother No problems noted. Social History Smoking/Tobacco Use Status: Current every day Tobacco Type: cigarettes Smoking risk assessment performed?: Yes Alcohol Intake: former Drug use: Daily Substance use type: marijuana Details: mostly edibles Housing: apartment Current gender identity: female Do you feel safe at home: Yes Do you feel safe in your relationship?: Yes Sign Out Sign Out Data: Sign Out Comment: pending discharge in the morning, patient to remain on oxygen for the evening due to inability to assist with home oxygen given weekend and the evening, plan for discharge in the morning and for patient to go directly to go to dialysis. Last updated by Benjy Espinoza NP at 10/30/23 01:28
--- NOTE | 2023-10-30 00:06 | NUR.NOTE ---
Referral sent over to care management for pt assistance with O2 usage at home. Pt spoke with provider about additional assistance with care and well being.
[2023-10-30 00:29] LABS: Troponin I 50 ng/L (< or =60)
[2023-10-30 00:41] VITALS: O2SAT 93
[2023-10-30 00:50] VITALS: O2SAT 95
[2023-10-30 01:00] VITALS: O2SAT 93
[2023-10-30 01:10] VITALS: O2SAT 93
--- NOTE | 2023-10-30 01:17 | NUR.NOTE ---
Advised on pt hand off, pt called 911 because she was low on oxygen and became anxious, pt was transported to ED, pt placed on oxygen and currently has no complaints, pt is being held in ED over night and oxygen to resolved in the morning, HARPREET
[2023-10-30] MEDS: Albuterol/Ipratropium 3 ML UPD VIAL (04:29)
[2023-10-30 05:48] VITALS: BP 142/60; PULSE 79; RESP 15; TEMP 36.6; O2SAT 93
--- NOTE | 2023-10-30 06:00 | ED.PROG_ITS ---
Date of service: 10/30/23 Time of Service: 06:00 Medical Decision Making Patient remained stable throughout the night. No interventions needed. Plan at time of signout was to keep the patient here in the ER until her daughter could come pick her up for dialysis at 6 AM. It is currently 6 AM and the patient r emained stable. We did contact respiratory therapy, we have approved her home concentrator to be replaced, and they should be delivering a new one by this evening per respiratory therapy's discussion. Patient will be discharged home. I have extensively reviewed the treatment plan and discharge instructions with the patient. I have addressed all patient concerns at this time. The patient was made aware of what symptoms to monitor for that would warrant a return to the emergency department. Discussed the plan with the patient, they demonstrate verbal understanding and agreement with our assessment and plan at this time. The documentation in this chart was dictated using [employer] dictation software. Please excuse any dictation errors. Quality:SDOH Health Related Social Needs: No Data to Display Sign Out Sign Out Data: Sign Out Comment: pending discharge in the morning, patient to remain on oxygen for the evening due to inability to assist with home oxygen given weekend and the evening, plan for discharge in the morning and for patient to go directly to go to dialysis. Last updated by Benjy Espinoza NP at 10/30/23 01:28 Discharge Plan Disposition Patient Disposition: Home Discharge Details Clinical Impression: Anxiety about health, ESRD on dialysis, COPD (chronic obstructive pulmonary di sease), Dependence on continuous supplemental oxygen Primary Care Provider: Chano Neves ED Provider: Bhanu Mayorga Home Meds and New Rx's Prescriptions: No Action tiotropium bromide [Spiriva with HandiHaler] 18 mcg capsule, w/inhalation device 1 cap inhalation DAILY Qty: 1 0RF Rx Instructions: puncture 1 cap using device; one dose = 2 inhalations from [facility] trazodone 50 mg tablet 50 mg PO HS PRN Rx Instructions: 1 TAB HS fluoxetine 10 mg tablet 10 mg PO DAILY Qty: 30 1RF aspirin 81 MG tablet,chewable 81 mg PO DAILY atorvastatin 40 mg tablet 20 mg PO DAILY epinephrine 0.3 mg/0.3 mL auto-injector 0.3 mg IM ONCE PRN Rx Instructions: as a single dose; may repeat once albuterol sulfate [Ventolin HFA] 90 mcg/actuation HFA aerosol inhaler 2 puff inhalation QID PRN (Reason: shortness of breath or wheezing) Qty: 8.5 5RF ipratropium-albuterol 0.5 mg-3 mg(2.5 mg base)/3 mL solution for nebulization 3 ml inhalation Q4H PRN (Reason: shortness of breath or wheezing) Qty: 180 3RF minoxidil 2.5 mg tablet 2.5 mg PO QHS omeprazole 40 mg Capsule,Delayed Release(Dr/Ec) 40 mg PO BID albuterol sulfate 2.5 mg /3 mL (0.083 %) solution for nebulization 2.5 mg inhalation Q6H PRN (Reason: shortness of breath or wheezing) Qty: 3 0RF Rx Instructions: [facility] (D[facility]) Aerochamber MV Spacer MISCELLANEOUS Discharge Instructions Additional Instructions: At time of discharge please go straight to dialysis and receive your normal treatment. Our respiratory therapists have placed the order for your home concentrator and a new one should come to your home by this evening. If you notice any worsening of your symptoms, or any new symptoms such as vomiting, diarrhea, fever, chills, shortness of breath, chest pain, numbness, weakness, or fainting , please return immediately to the emergency department for reevaluation. Please follow up with your primary care provider as soon as possible for reassessment and reevaluation. As always, it was a pleasure participating in your medical care today. Referrals: Chano Neves MD [Primary Care Provider] -
[2023-10-30 06:05] VITALS: BP 142/60; PULSE 79; RESP 15; TEMP 36.6; O2SAT 93
== END 2023-10-30 06:05 | disposition home or self-care (01) ==
PROVIDERS: Nurse Practitioner Family; Emergency Provider Student in an Organized Health Care Education/Training Program; PCP Family Medicine
DX: F41.9 Anxiety disorder, unspecified (principal); J44.9 Chronic obstructive pulmonary disease, unspecified; R07.9 Chest pain, unspecified; R45.89 Other symptoms and signs involving emotional state; Z99.81 Dependence on supplemental oxygen
CPT/HCPCS: 00123; 36415; 80053; 87637; 93005; 94640; 96374; 99284; 71046; 83735; 83880; 84484; 85025; 93010; 99283; J2060; J7620

== ENCOUNTER 2023-11-01 20:17 | Emergency (ER) | payer OTHER, SELFPAY ==
[2023-11-01 20:20] VITALS: BP 133/63; PULSE 83; RESP 15; TEMP 37.1; O2SAT 95
--- NOTE | 2023-11-01 22:20 | W.ED.GENAD ---
Discharge Plan Disposition Patient Disposition: Home Condition: Good Discharge Details Clinical Impression: Acute pain of left knee Primary Care Provider: Chano Neves ED Provider: Bhanu Mayorga Home Meds and New Rx's Prescriptions: No Action tiotropium bromide [Spiriva with HandiHaler] 18 mcg capsule, w/inhalation device 1 cap inhalation DAILY Qty: 1 0RF Rx Instructions: puncture 1 cap using device; one dose = 2 inhalations from [facility] trazodone 50 mg tablet 50 mg PO HS PRN Rx Instructions: 1 TAB HS fluoxetine 10 mg tablet 10 mg PO DAILY Qty: 30 1RF aspirin 81 MG tablet,chewable 81 mg PO DAILY atorvastatin 40 mg tablet 20 mg PO DAILY epinephrine 0.3 mg/0.3 mL auto-injector 0.3 mg IM ONCE PRN Rx Instructions: as a single dose; may repeat once albuterol sulfate [Ventolin HFA] 90 mcg/actuation HFA aerosol inhaler 2 puff inhalation QID PRN (Reason: shortness of breath or wheezing) Qty: 8.5 5RF ipratropium-albuterol 0.5 mg-3 mg(2.5 mg base)/3 mL solution for nebulization 3 ml inhalation Q4H PRN (Reason: shortness of breath or wheezing) Qty: 180 3RF minoxidil 2.5 mg tablet 2.5 mg PO QHS omeprazole 40 mg Capsule,Delayed Release(Dr/Ec) 40 mg PO BID albuterol sulfate 2.5 mg /3 mL (0.083 %) solution for nebulization 2.5 mg inhalation Q6H PRN (Reason: shortness of breath or wheezing) Qty: 3 0RF Rx Instructions: [facility] (D[facility]) Aerochamber MV Spacer MISCELLANEOUS Discharge Instructions Instructions: Knee Pain ED Additional Instructions: At this time I did review the images and you do have a known fracture they are in your left knee. Please remain nonweightbearing and do not walk on it at all. Please continue to take Tylenol 1000 mg every 6 hours. This is maximum dose. Please rub the Voltaren gel on the tender areas every 4-6 hours. Please ice the knee frequently. Please follow-up closely with the adaptive physical education specialist. If you notice any worsening of your symptoms, or any new symptoms such as vomiting, diarrhea, fever, chills, shortness of breath, chest pain, numbness, weakness, or fainting , please return immediately to the emergency department for reevaluation. Please follow up with your primary care provider as soon as possible for reassessment and reevaluation. As always, it was a pleasure participating in your medical care today. Referrals: Chano Neves MD [Primary Care Provider] - [facility] General Date/Time Provider Initiated Documentation: 11/01/23 22:03. HPI Narrative: This is a 58-year-old female with a past medical history of renal failure on dialysis, thrombocytopenia, reactive airway disease, GERD, high cholesterol, hypertension, aortic valve replacement, kidney transplant in the past, who presents today for evaluation of left knee pain. The patient was seen and assessed here on 10/27/2023. She was diagnosed with a left-sided tibial plateau fracture. She was placed in a knee immobilizer. Because of her dialysis fistula as she has been using a walker at home. She presents today because of continued pain. She takes Tylenol for the pain which only improves it slightly. She states that she has occasionally been bearing weight on the leg even though she knows I am not supposed to. She denies any new numbness or tingling. No new falls or trauma. No other complaints at this time. Related Data Home Medications ?Medication ?Instructions ?Recorded ?Confirmed aspirin 81 mg chewable tablet 81 mg PO DAILY 05/24/16 11/01/23 inhalational spacing device 01/26/19 11/01/23 (Aerochamber MV spacer) omeprazole 40 mg capsule,delayed 40 mg PO BID 03/18/19 11/01/23 release atorvastatin 40 mg tablet 20 mg PO DAILY 10/24/19 11/01/23 tiotropium bromide 18 mcg capsule 1 cap inhalation DAILY #1 inh 02/16/21 11/01/23 with inhalation device (Spiriva with HandiHaler) epinephrine 0.3 mg/0.3 mL 0.3 mg IM ONCE PRN 01/04/23 11/01/23 injection, auto-injector albuterol sulfate 2.5 mg/3 mL 2.5 mg (3 mL) inhalation Q6H PRN 01/16/23 11/01/23 (0.083 %) solution for nebulization shortness of breath or wheezing #3 mL albuterol sulfate 90 mcg/actuation 2 puff inhalation QID PRN 01/24/23 11/01/23 aerosol inhaler (Ventolin HFA) shortness of breath or wheezing #8.5 grams ipratropium 0.5 mg-albuterol 3 mg 3 ml inhalation Q4H PRN shortness 06/27/23 11/01/23 (2.5 mg base)/3 mL nebulization of breath or wheezing #180 mL soln minoxidil 2.5 mg tablet 2.5 mg PO QHS 06/30/23 11/01/23 trazodone 50 mg tablet 50 mg PO HS PRN 06/30/23 10/05/23 fluoxetine 10 mg tablet 10 mg PO DAILY #30 tabs 10/05/23 11/01/23 Previous Rx's ?Medication ?Instructions ?Recorded tiotropium bromide 18 mcg capsule 1 cap inhalation DAILY #1 inh 02/16/21 with inhalation device (Spiriva with HandiHaler) albuterol sulfate 2.5 mg/3 mL 2.5 mg (3 mL) inhalation Q6H PRN 01/16/23 (0.083 %) solution for nebulization shortness of breath or wheezing #3 mL albuterol sulfate 90 mcg/actuation 2 puff inhalation QID PRN 01/24/23 aerosol inhaler (Ventolin HFA) shortness of breath or wheezing #8.5 grams ipratropium 0.5 mg-albuterol 3 mg 3 ml inhalation Q4H PRN shortness 06/27/23 (2.5 mg base)/3 mL nebulization of breath or wheezing #180 mL soln fluoxetine 10 mg tablet 10 mg PO DAILY #30 tabs 10/05/23 Allergies Allergy/AdvReac Type Severity Reaction Status Date / Time cephalexin monohydrate (From Allergy Severe trouble Verified 11/01/23 20:23 Keflex) breathing colchicine Allergy Unknown Verified 11/01/23 20:23 allopurinol AdvReac Intermediate gout Verified 11/01/23 20:23 breakout erythromycin base AdvReac Intermediate gout Verified 11/01/23 20:23 breakout General Stated Complaint: Orthopedic AWA: 3 Review of Systems All systems reviewed & are unremarkable except as noted in HPI and below Exam Narrative Exam Narrative: 1.Const: Well-nourished, Well-developed, appearing stated age 2.Eyes: PERRL, no conjunctival injection, and symmetrical lids. 3.ENT: Atraumatic external nose and ears. Moist MM. Neck: Symmetric, trachea midline, No thyromegaly. 4.CVS: +S1/S2, No murmurs or gallops. Peripheral pulses 2+ and equal in all extremities. Brisk capillary refill in all extremities. 5.RESP: Unlabored respiratory effort. Clear to auscultation bilaterally. No wheezes rales or rhonchi 6.GI: Soft, Nontender/Nondistended, No hepatosplenomegaly. No guarding or rebound. 7.MSK: Normocephalic/No cyanosis or clubbing, Normal movement of all extremities. Patient's left knee demonstrates no significant swelling redness or erythema. Dorsalis pedis and posterior tibial pulses are +1 bilaterally. Brisk capillary refill throughout all toes on both feet, sensation intact throughout overall aspects of the feet. Patient does have tenderness over the left tibial plateau, as well as minimal achiness over the fibular head. No calf tenderness, no femur tenderness. 8.Skin: Warm, Dry. No rashes or lesions. 9.Neuro: physician neonatology II-XII grossly intact. Sensation grossly intact, no focal neurologic deficits. 10.Psych: (AAO) x3. Appropriate mood and affect Course Vital Signs Vital signs: Vital Signs Temperature 37.1 C 11/01/23 20:20 Pulse 83 11/01/23 20:20 Respiratory Rate 15 11/01/23 20:20 Blood Pressure 133/63 11/01/23 20:20 Pulse Oximetry 95 11/01/23 20:20 Temperature 37.1 C 11/01/23 20:20 Temperature Source Oral 11/01/23 20:20 Pulse 83 11/01/23 20:20 Respiratory Rate 15 11/01/23 20:20 Respiratory Effort Normal, Non-Labored 11/01/23 22:15 Blood Pressure 133/63 11/01/23 20:20 Blood Pressure Position Sitting 11/01/23 20:20 Pulse Oximetry 95 11/01/23 20:20 Oxygen Delivery Method Room Air 11/01/23 20:20 Oxygen Flow Rate 0 11/01/23 20:20 Pain Level 8 11/01/23 22:12 Medical Decision Making This is a 58-year-old female with a past medical history of renal failure on dialysis, thrombocytopenia, reactive airway disease, GERD, high cholesterol, hypertension, aortic valve replacement, kidney transplant in the past, who presents today for evaluation of left knee pain. The patient was seen and assessed here on 10/27/2023. She was diagnosed with a left-sided tibial plateau fracture. She was placed in a knee immobilizer. Because of her dialysis fistula as she has been using a walker at home. She presents today because of continued pain. She takes Tylenol for the pain which only improves it slightly. She states that she has occasionally been bearing weight on the leg even though she knows I am not supposed to. She denies any new numbness or tingling. No new falls or trauma. No other complaints at this time. Exam demonstrates a stable appearing female, no signs of new trauma. Appropriate tenderness noted over the tibial plateau which was diagnosed on CT imaging on the visit on 10/26. No evidence of neurovascular compromise. Symptoms appear consistent and appropriate with her fracture pattern. No pain out of proportion, compartment syndrome, or other concerning abnormalities. I do feel that the patient will require an enhancement of her pain management. Will recommend continued and regular icing throughout the day. Will recommend continued Tylenol 1000 mg every 6 hours. We will give a tube of Voltaren gel for application to the knee for the pain. Will also give 4 tablets of oxycodone to use for breakthrough pain only. In addition to this, I made it unequivocally clear to the patient that she should not be bearing weight on her tibial plateau fracture. She states she understands this and will continue to do her best not to. She did have her family member caregiver at bedside, and they are well aware of our recommendations. Discussed red flags which to return. No indication for repeat imaging at this time. I have extensively reviewed the treatment plan and discharge instructions with the patient and their family. I have addressed all patient concerns at this time. The patient and family was made aware of what symptoms to monitor for that would warrant a return to the emergency department. Discussed the plan with the patient and family, they demonstrate verbal understanding and agreement with our assessment and plan at this time. The documentation in this chart was dictated using [employer] dictation software. Please excuse any dictation errors. Quality:SDOH Health Related Social Needs: No Data to Display PFSH All Active Problems Acute pain of left knee (Acute) Dependence on continuous supplemental oxygen (Acute) COPD (chronic obstructive pulmonary disease) (Chronic) Anxiety about health (Acute) Fall (Acute) Contusion of multiple sites (Acute) Closed fracture of left tibial plateau (Acute) COPD exacerbation (Acute) Thoracic aortic aneurysm (Acute) 4 cm 09/2023 Anxiety disorder (Acute) Shoulder pain, right (Acute) Vaginal bleeding (Acute) Thrombocytopenia (Chronic) Angioedema (Acute) Vaginal lesion (Acute) ESRD on dialysis (Chronic) On hemodialysis currently using central catheter-nephrology at [facility] receives dialysis at [facility] region Depression (Acute 08/28/14) Gallstones (Acute) COPD (chronic obstructive pulmonary disease) (Chronic) Pulmonary at [facility] Central venous catheter in place (Acute ~10/29/19) [facility] [place], right subclavian-dialysis Tricuspid regurgitation (Acute) s/p tricuspid valve replacement 02/2020, bovine Cirrhosis, alcoholic (Acute) POLST (Physician Orders for Life-Sustaining Treatment) (Acute) COLST completed 02/13/2020, DNR/DNI. Hemorrhage of arteriovenous fistula (Acute) Ventral hernia (Acute) Hypertension (Chronic) Aortic valve replaced (Acute) Bovine-with [facility] Personal history of nicotine dependence (Acute) 02/2021 Tobacco abuse (Acute) Lung nodule, solitary (Acute) Hemoptysis (Acute) Open abdominal wall wound (Acute) Fever (Acute) Neck pain (Acute) Right upper quadrant abdominal pain (Acute) Medical History Axillary lymphadenopathy Secondary hyperparathyroidism (of renal origin) Right heart failure CVD (cardiovascular disease) Macular degeneration of left eye (~10/17/19) [facility] [place] Nail dystrophy Cannabis dependence Cyst of ovary (08/20/12) Depression (09/14/12) Recurrent urinary tract infection Upper GI bleed (05/17/14) 05/15/14 [facility] [place] EGD, HH, esophagitis, gastric ulcer and duodenitis Umbilical hernia repaired 1995,1997,2001,2003 Hyperparathyroidism, unspecified (02/09/11) 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[facility] [place] Hyperlipidemia Gastroesophageal reflux disease with esophagitis (02/03/15) Essential hypertension (01/16/13) severe and labile Diverticulitis of large intestine without perforation or abscess with bleeding Bleeding hemorrhoids (01/08/13) rectal bleeding (colonoscopy [facility] [place] 01/01/13 internal hemorrhoids and diverticuli) Surgical History H/O aortic valve replacement History of kidney transplant TRANSPLANT, KIDNEY (~1997) LEFT Abdominal hysterectomy (~2006) s/p hyst, but cervix still present and needs yearly PAP due to transplant Repair of umbilical hernia 1995,1997,2001,2003 Family History Mother Essential hypertension Personal history of malignant neoplasm KIDNEY Heart disease Pulmonary emphysema Father Personal history of malignant neoplasm Pulmonary emphysema Brother Hyperlipidemia Brother Hyperlipidemia Brother No problems noted. Social History Smoking/Tobacco Use Status: Current every day Tobacco Type: cigarettes Smoking risk assessment performed?: Yes Alcohol Intake: former Drug use: Daily Substance use type: marijuana Details: mostly edibles Housing: apartment Current gender identity: female Do you feel safe at home: Yes Do you feel safe in your relationship?: Yes
[2023-11-01] MEDS: Diclofenac 1% Gel 100 GM TUBE TP (22:26)
== END 2023-11-01 22:27 | disposition home or self-care (01) ==
PROVIDERS: Emergency Provider Student in an Organized Health Care Education/Training Program; PCP Family Medicine
DX: M25.562 Pain in left knee (principal)
CPT/HCPCS: 99282

== ENCOUNTER 2023-11-14 15:26 | Outpatient (CLI) | payer OTHER, SELFPAY ==
--- NOTE | 2023-11-14 14:14 | DI.RAD_ITS ---
Exam(s) XR KNEE LT 2V AP,LAT EXAM: XR KNEE LT 2V AP,LAT CLINICAL HISTORY: f/u fracture. TECHNIQUE: 2D digital imaging was performed. COMPARISON: CR XR KNEE LT 4V AP,LAT,RUBIA,PAT from 10/27/[address] LOWER EXTREMITY LT WO from 10/27/2023 FINDINGS: Two views-AP and lateral: The subtle lateral tibial plateau fracture (which is best seen on CT scan of 10/27/2023) exhibits min imal if any significant radiographic change. Remains quite subtle. Is no joint space narrowing. Aliyah int effusion/hemarthrosis is again noted although appears smaller than on images of 10/27/2023. IMPRESSION: Stable satisfactory appearance decreasing size joint hemarthrosis DATA REPOSITORY: RADIATION DOSE DELIVERED:
== END 2023-11-14 15:27 | disposition home or self-care (01) ==
LOC: DIORS 15:26
PROVIDERS: PCP Family Medicine; Visit Provider Student in an Organized Health Care Education/Training Program
DX: S82.142A Displaced bicondylar fracture of left tibia, initial encounter for closed fracture (principal); W19.XXXA Unspecified fall, initial encounter; N18.6 End stage renal disease; Z99.2 Dependence on renal dialysis
CPT/HCPCS: 99213; 73560

== ENCOUNTER 2023-12-08 11:18 | Emergency (ER) | payer OTHER, SELFPAY ==
[2023-12-08] VITALS (77 sets, daily range): BP systolic 104–152; BP diastolic 40–110; PULSE 42–131; RESP 13–30; TEMP 37.2; O2SAT 91–100
--- NOTE | 2023-12-08 11:15 | RT.EKG_ITS ---
APPROVED REPORT Exam: Resting ECG Reason for Exam: dyspnea Patient Location: E HR:129 bpm ECG Measurements Heart Rate 129 AXIS MS 87 P 0 QRSd 164 QRS -175 QT 375 T -37 QTc 551 Conclusion Sinus tachycardia...rate> 99 RBBB and LPFB...QRSd >120mS, axis(90,210) Inferolateral infarct, age indeterminate...Q >30mS, T neg, inf-lat leads
[2023-12-08 12:27] LABS: BE (Venous) 13 mmol/L (-2-3); HCO3 (Venous) 37 mmol/L (23-28); Lactate 0.7 mmol/L (0.6-1.4); O2 Sat (Venous) 96 %; TCO2 (Venous) 33 mmol/L (24-29); pCO2 (Venous) 50 mmHg (41-51); pH (Venous) 7.48 (7.31-7.41); pO2 (Venous) 70 mmHg
[2023-12-08 12:28] LABS: HCT 35.7 % (36.0-46.0); HGB 11.4 g/dL (11.2-15.7); MCH 30.9 pg (27.0-33.0); MCHC 31.9 % (32.0-36.0); MCV 97 fL (80-95); RBC 3.69 10^6/uL (3.93-5.22); RDW-SD 49.9 fL; WBC 4.07 10^3/uL (4.4-10.8)
[2023-12-08] MEDS: Normal Saline 250 ML IV (12:30)
[2023-12-08 12:44] LABS: INR 1.3 (0.9-1.1); Prothrombin Time 12.6 sec (9.1-11.1)
[2023-12-08 12:51] LABS: Absolute Neutrophil Count 2.89 10^3/uL (1.2-6.7); Bands % 0 %
[2023-12-08 12:52] LABS: Absolute Eosinophil Count 0.45 10^3/uL (0.0-0.7); Absolute Lymphocyte Count 0.37 10^3/uL (1.2-3.4); Absolute Monocyte Count 0.37 10^3/uL (0.1-0.8); Atypical Lymphocytes % 1 %; Diff Comment Manual Differential; Metamyelocytes % 0; Myelocytes % 0; Other Cells % 0; Promyelocytes % 0; RBC Morphology Normal
[2023-12-08 12:53] LABS: Platelet Count 81 10^3/uL (130-400)
[2023-12-08 12:54] LABS: Abs Immature Grans 0.01 10^3/uL (0.0-0.06)
[2023-12-08 12:57] LABS: ALT 20 U/L (14-59); AST 25 U/L (15-37); Albumin 3.9 g/dL (3.4-5.0); Alkaline Phosphatase 168 U/L (46-116); Anion Gap 5.6 mmol/L (3-11); BUN 12 mg/dL (7-18); Bilirubin, Total 0.85 mg/dL (0.2-1.0); CO2 36.4 mmol/L (21.0-32.0); CREATININE 2.5 mg/dL (0.55-1.02); Chloride 97 mmol/L (98-107); Estimated GFR 21.48 (mL/min/1.73m2); Glucose 88 mg/dL (74-106); Magnesium 2.1 mg/dL (1.8-2.4); Potassium 3.5 mmol/L (3.5-5.1); Sodium 139 mmol/L (136-145); TSH (W/Ref FT4) 1.11 uIU/mL (0.36-3.74); Total Protein 7.3 g/dL (6.4-8.2)
[2023-12-08 13:02] LABS: D-Dimer 1244 ng/mlFEU (<500)
[2023-12-08 13:12] LABS: Procalcitonin 0.3 ng/mL
[2023-12-08] MEDS: Normal Saline - Diluent 50 ML VIAL IJ (13:23)
[2023-12-08] MEDS: Omnipaque 350 MG/ML 500 ML BTL-Imaging package 60 ML IJ (13:33)
--- NOTE | 2023-12-08 13:36 | DI.CT_ITS ---
Exam(s) CT CHEST PE CTA EXAM: CT CHEST PE CTA CLINICAL HISTORY: tachycardia, elevated ddimer. TECHNIQUE: Imaging Protocol: Axial CT angiography was performed with multi-slice acquisition and mu lti-planar and/or 3D reconstructions. CONTRAST MATERIAL: Intravenous: Omnipaque 350 contrast volume:60 mL COMPARISON: CT CT CHEST PE CTA from 11/07/2022 CR,XR XR CHEST 2V PA LATERAL from 10/29/2023 FINDINGS: Tracheobronchial tree: Patent where visualized. No bronchiectasis. Pulmonary parenchyma: No consolidation or dominant measurable mass. Atelectasis in the lung bases. Centrilobular emphysematous changes are present. Pulmonary Arteries: No evidence of filling defect to suggest pulmonary emboli. There is an enlarged m ain pulmonary artery which may reflect pulmonary artery hypertension. Mediastinum and Magali: No dominant adenopathy or fluid collection. The esophagus is unremarkable. Visualized thyroid gland: Unremarkable. Pleura: No effusion or pneumothorax. Heart: Cardiomegaly. Tricuspid and aortic valve replacements are in place. Coronary artery calcific ations are present. No pericardial effusion. Aorta: Thoracic aorta non-dilated. No evidence of dissection. Atherosclerotic calcification is presen t. Upper abdomen: No acute abnormality. Soft tissues: Unremarkable. Bones: Within normal limits for the patient's age.Sternal wires are in place. IMPRESSION: No evidence of pulmonary embolism, thoracic aortic dissection or aneurysm. RADIATION DOSE DELIVERED: 46.62mGy.cm Total DLP DATA REPOSITORY: All CT scans at this facility are submitted to the National Radiology Data Registry (NRDR) Dose Index Registry (DIR) with the [employer] (ACR). RADIATION OPTIMIZATION: All CT scans at this facility use at least one of these dose optimization te chniques: automated exposure control; mA and/or kV adjustment per patient size (includes targeted exa ms where dose is matched to clinical indication); or iterative reconstruction.
[2023-12-08] MEDS: dilTIAZem 25 MG/5 ML VIAL 10 MG IVP (14:09)
[2023-12-08 14:45] LABS: Troponin I 40 ng/L (<or=51)
[2023-12-08] MEDS: dilTIAZem 125 MG in Normal Saline 100 ML IV (15:20)
--- NOTE | 2023-12-08 16:08 | ED.GENADUL_ITS ---
Discharge Plan Disposition Patient Disposition: Transfer-Acute Inpatient Care Specific Acute Inpt Facility: Other Condition: Stable Discharge Details Clinical Impression: Atrial flutter, Dialysis patient Primary Care Provider: Chano Neves ED Provider: Aarti Peralta Home Meds and New Rx's Prescriptions: No Action tiotropium bromide [Spiriva with HandiHaler] 18 mcg capsule, w/inhalation device 1 cap inhalation DAILY Qty: 1 0RF Rx Instructions: puncture 1 cap using device; one dose = 2 [facility] trazodone 50 mg tablet 100 mg PO HS PRN Rx Instructions: 1 TAB HS fluoxetine 10 mg tablet 10 mg PO DAILY Qty: 30 1RF prazosin 1 mg capsule 1 mg PO QHS Qty: 30 0RF tramadol 50 mg tablet 50 mg PO Q6H PRN (Reason: pain) Qty: 10 0RF aspirin 81 MG tablet,chewable 81 mg PO DAILY epinephrine 0.3 mg/0.3 mL auto-injector 0.3 mg IM ONCE PRN Rx Instructions: as a single dose; may repeat once albuterol sulfate [Ventolin HFA] 90 mcg/actuation HFA aerosol inhaler 2 puff inhalation QID PRN (Reason: shortness of breath or wheezing) Qty: 8.5 5RF ipratropium-albuterol 0.5 mg-3 mg(2.5 mg base)/3 mL solution for nebulization 3 ml inhalation Q4H PRN (Reason: shortness of breath or wheezing) Qty: 180 3RF minoxidil 2.5 mg tablet 2.5 mg PO QHS atorvastatin 40 mg tablet 40 mg PO DAILY omeprazole 40 mg Capsule,Delayed Release(Dr/Ec) 40 mg PO BID albuterol sulfate 2.5 mg /3 mL (0.083 %) solution for nebulization 2.5 mg inhalation Q6H PRN (Reason: shortness of breath or wheezing) Qty: 3 0RF Rx Instructions: [facility] (ESTEBAN) Aerochamber MV Spacer MISCELLANEOUS Discharge Data Discharge Date/Time-TO BE ENTERED AT DEPARTURE: 12/08/23 19:30 HPI General Date/Time Provider Initiated Documentation: 12/08/23 11:34 . HPI Narrative: This 58-year-old female presents to the hospital with report of tachycardia. Complex medical history including that of renal failure dialysis dependent presents from dialysis. Patient states she has had some chest pressure but has had no other symptoms in relation to her tachycardia. She states that dialysis noted on Monday and she has had no change in symptoms time. She states that she was also noted to be tachycardic on Monday, she declined evaluation at that time. She did not have change in symptoms but presents secondary to persistent tachycardia. States she is normally in the 80s. Denies any weight gain or new shortness of breath. Chronically oxygen dependent per patient. Denies any neurological symptoms. Denies any new medications or change medications. Related Data Home Medications ?Medication ?Instructions ?Recorded ?Confirmed aspirin 81 mg chewable tablet 81 mg PO DAILY 05/24/16 12/08/23 inhalational spacing device 01/26/19 12/08/23 (Aerochamber MV spacer) omeprazole 40 mg capsule,delayed 40 mg PO BID 03/18/19 12/08/23 release tiotropium bromide 18 mcg capsule 1 cap inhalation DAILY #1 inh 02/16/21 12/08/23 with inhalation device (Spiriva with HandiHaler) epinephrine 0.3 mg/0.3 mL 0.3 mg IM ONCE PRN 01/04/23 12/08/23 injection, auto-injector albuterol sulfate 2.5 mg/3 mL 2.5 mg (3 mL) inhalation Q6H PRN 01/16/23 12/08/23 (0.083 %) solution for nebulization shortness of breath or wheezing #3 mL albuterol sulfate 90 mcg/actuation 2 puff inhalation QID PRN 01/24/23 12/08/23 aerosol inhaler (Ventolin HFA) shortness of breath or wheezing #8.5 grams ipratropium 0.5 mg-albuterol 3 mg 3 ml inhalation Q4H PRN shortness 06/27/23 12/08/23 (2.5 mg base)/3 mL nebulization of breath or wheezing #180 mL soln minoxidil 2.5 mg tablet 2.5 mg PO QHS 06/30/23 12/08/23 fluoxetine 10 mg tablet 10 mg PO DAILY #30 tabs 10/05/23 12/08/23 prazosin 1 mg capsule 1 mg PO QHS PTSD #30 caps 11/09/23 12/08/23 tramadol 50 mg tablet 50 mg PO Q6H PRN pain #10 tabs 11/09/23 12/08/23 atorvastatin 40 mg tablet 40 mg PO DAILY 11/14/23 12/08/23 trazodone 50 mg tablet 100 mg PO HS PRN 11/14/23 11/14/23 Previous Rx's ?Medication ?Instructions ?Recorded tiotropium bromide 18 mcg capsule 1 cap inhalation DAILY #1 inh 02/16/21 with inhalation device (Spiriva with HandiHaler) albuterol sulfate 2.5 mg/3 mL 2.5 mg (3 mL) inhalation Q6H PRN 01/16/23 (0.083 %) solution for nebulization shortness of breath or wheezing #3 mL albuterol sulfate 90 mcg/actuation 2 puff inhalation QID PRN 01/24/23 aerosol inhaler (Ventolin HFA) shortness of breath or wheezing #8.5 grams ipratropium 0.5 mg-albuterol 3 mg 3 ml inhalation Q4H PRN shortness 06/27/23 (2.5 mg base)/3 mL nebulization of breath or wheezing #180 mL soln fluoxetine 10 mg tablet 10 mg PO DAILY #30 tabs 10/05/23 prazosin 1 mg capsule 1 mg PO QHS PTSD #30 caps 11/09/23 tramadol 50 mg tablet 50 mg PO Q6H PRN pain #10 tabs 11/09/23 Allergies Allergy/AdvReac Type Severity Reaction Status Date / Time cephalexin monohydrate (From Allergy Severe trouble Verified 12/08/23 11:24 Keflex) breathing colchicine Allergy Unknown Verified 12/08/23 11:24 allopurinol AdvReac Intermediate gout Verified 12/08/23 11:24 breakout erythromycin base AdvReac Intermediate gout Verified 12/08/23 11:24 breakout General Stated Complaint: GenMedical AWA: 3 Exam Narrative Exam Narrative: Alert and oriented chronically ill-appearing 58-year-old female appearing in no acute distress, oxygen dependent nasal cannula and please, and there increased work of breathing, mildly diminished lung sounds, cardiac rate cardia, irregular, no abdominal tenderness, alert and oriented x 4, no peripheral edema distal pulses intact Course Vital Signs Vital signs: Vital Signs Temperature 37.2 C 12/08/23 11:19 Pulse 131 H 12/08/23 11:19 Respiratory Rate 14 12/08/23 11:19 Blood Pressure 126/78 12/08/23 11:19 Pulse Oximetry 98 12/08/23 11:19 Temperature 37.2 C 12/08/23 11:26 Temperature Source Oral 12/08/23 11:26 Pulse 105 H 12/08/23 15:16 Pulse 120 H 12/08/23 15:20 Respiratory Rate 29 H 12/08/23 15:20 Respiratory Effort Normal, Short of Breath 12/08/23 11:26 Blood Pressure 130/62 12/08/23 15:16 Blood Pressure Mean 84 12/08/23 15:16 Blood Pressure Position Sitting 12/08/23 11:19 Pulse Oximetry 96 12/08/23 15:20 Oxygen Delivery Method Room Air 12/08/23 11:19 Oxygen Flow Rate 0 12/08/23 11:19 Pain Level 0 12/08/23 11:26 Lab/Test Results Lab/Test Results: 12/08/23 12:09 Blood Blood Culture - Pending 12/08/23 11:49 Blood Blood Culture - Pending Laboratory Tests Range/Units 12/08/23 12/08/23 12:09 14:19 WBC (4.4-10.8) 10^3/uL 4.07 L RBC (3.93-5.22) 10^6/uL 3.69 L Hgb (11.2-15.7) g/dL 11.4 Hct (36.0-46.0) % 35.7 L MCV (80-95) fL 97 H MCH (27.0-33.0) pg 30.9 MCHC (32.0-36.0) % 31.9 L RDW (11.7-14.6) % 14.0 Plt Count (130-400) 10^3/uL 81 L MPV (8.0-11.0) fL Immature Gran % % 0.0 Neutrophils % % 71.0 Band Neutrophils % % 0 Lymphocytes % % 8.0 Atypical Lymphs % % 1 Monocytes % % 9.0 Eosinophils % % 11.0 Basophils % % 0.0 Metamyelocytes % 0 Myelocytes % 0 Promyelocytes % 0 Other Cells % 0 Nucleated RBC % (0.0-0.3) % 1.0 H Absolute Neutrophils (1.2-6.7) 10^3/uL 2.89 Absolute Lymphocytes (1.2-3.4) 10^3/uL 0.37 L Absolute Monocytes (0.1-0.8) 10^3/uL 0.37 Absolute Eosinophils (0.0-0.7) 10^3/uL 0.45 Absolute Basophils (0.0-0.2) 10^3/uL 0.00 RBC Morphology Normal PT (9.1-11.1) sec 12.6 H INR (0.9-1.1) 1.3 H D-Dimer (<500) ng/mlFEU 1244 H VBG pH (7.31-7.41) 7.48 H VBG pCO2 (41-51) mmHg 50 VBG pO2 mmHg 70 VBG HCO3 (23-28) mmol/L 37 H VBG Total CO2 (24-29) mmol/L 33 H VBG O2 Saturation % 96 VBG Base Excess (-2-3) mmol/L 13 H VBG Lactate (0.6-1.4) mmol/L 0.7 Sodium (136-145) mmol/L 139 Potassium (3.5-5.1) mmol/L 3.5 Chloride (98-107) mmol/L 97 L Carbon Dioxide (21.0-32.0) mmol/L 36.4 H Anion Gap (3-11) mmol/L 5.6 BUN (7-18) mg/dL 12 Creatinine (0.55-1.02) mg/dL 2.5 H Est GFR (CKD-EPI 2020) (mL/min/1.73m2) 21.48 Glucose (74-106) mg/dL 88 Calcium (8.5-10.1) mg/dL 9.0 Magnesium (1.8-2.4) mg/dL 2.1 Total Bilirubin (0.2-1.0) mg/dL 0.85 AST (15-37) U/L 25 ALT (14-59) U/L 20 Alkaline Phosphatase (46-116) U/L 168 H Troponin I (<or=51) ng/L 40 Total Protein (6.4-8.2) g/dL 7.3 Albumin (3.4-5.0) g/dL 3.9 Procalcitonin ng/mL 0.3 TSH (0.36-3.74) uIU/mL 1.11 Medical Decision Making Chronically ill-appearing 58-year-old female in no acute distress, initially presentation sinus tachycardia, EKG reviewed, suspect atrial flutter, will order diagnostic labs and chest x-ray for further evaluation. Diagnostic lab including magnesium electrolytes and thyroid do not show evidence of acute abnormality, received complete dialysis today. Chest x-ray and CT without evidence of significant volume overload status and no evidence of PE, treated with 15 mg of diltiazem and and was rate controlled for at least 10 minutes so diltiazem drip was initiated, on 5 mg/h patient is approximately 100 with stable blood pressure here. She had some mild chest pressure initial troponin was 48, she is feeling movement in her symptoms. The remainder of her diagnostic labs are consistent with her diagnosis of renal failure, creatinine 2.5 postdialysis. At this time, given patient's new onset atrial flutter and chronically ill status with dialysis dependent and [id number] score of 4 I think she would benefit from admission for observation, [facility] and [facility] capabilities with Dr. Mackay, resident director at [facility] has accepted patient to their service and care. Patient is stable for transfer on a diltiazem drip at 5 mg an hour. CTA was reviewed with radiologist, Dr. Bahena. Will hold on anticoagulation at this time patient's have bled score is 2. Quality:SDOH Health Related Social Needs: No Data to Display Critical Care Time Critical Care Time Attestation: 35 minutes of critical care time secondary to new onset atrial flutter requiring IV Cardizem with infusion. Patient will require telemetry monitoring throughout her stay with diagnostic lab interpretation and review and consultation with facility capable of providing dialysis for this dialysis patient [facility] All Active Problems (Updated 12/08/23 @ 16:25 by SHIRA Pepper) Dialysis patient (Acute) Atrial flutter (Acute) Tibial plateau fracture, left (Acute 10/27/23) PTSD (post-traumatic stress disorder) (Acute) Thoracic aortic aneurysm (Acute) 4 cm 09/2023 Anxiety disorder (Acute) Shoulder pain, right (Acute) Vaginal bleeding (Acute) Thrombocytopenia (Chronic) Angioedema (Acute) Vaginal lesion (Acute) ESRD on dialysis (Chronic) On hemodialysis currently using central catheter-nephrology at [facility] receives dialysis at [facility] Depression (Acute 08/28/14) Gallstones (Acute) COPD (chronic obstructive pulmonary disease) (Chronic) Pulmonary at [facility] Central venous catheter in place (Acute ~10/29/19) [facility], right subclavian-dialysis Tricuspid regurgitation (Acute) s/p tricuspid valve replacement 02/2020, bovine Cirrhosis, alcoholic (Acute) POLST (Physician Orders for Life-Sustaining Treatment) (Acute) COLST completed 02/13/2020, DNR/DNI. Hemorrhage of arteriovenous fistula (Acute) Ventral hernia (Acute) Hypertension (Chronic) Aortic valve replaced (Acute) Bovine-with [facility] Personal history of nicotine dependence (Acute) 02/2021 Tobacco abuse (Acute) Lung nodule, solitary (Acute) Hemoptysis (Acute) Open abdominal wall wound (Acute) Fever (Acute) Neck pain (Acute) Right upper quadrant abdominal pain (Acute) Medical History Axillary lymphadenopathy Secondary hyperparathyroidism (of renal origin) Right heart failure CVD (cardiovascular disease) Macular degeneration of left eye (~10/17/19) [facility] Nail dystrophy Cannabis dependence Cyst of ovary (08/20/12) Depression (09/14/12) Recurrent urinary tract infection Upper GI bleed (05/17/14) 05/15/14 [facility] EGD, HH, esophagitis, gastric ulcer and duodenitis Umbilical hernia repaired 1995,1997,2001,2003 Hyperparathyroidism, unspecified (02/09/11) 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[facility] Hyperlipidemia Gastroesophageal reflux disease with esophagitis (02/03/15) Essential hypertension (01/16/13) severe and labile Diverticulitis of large intestine without perforation or abscess with bleeding Bleeding hemorrhoids (01/08/13) rectal bleeding (colonoscopy [facility] 01/01/13 internal hemorrhoids and diverticuli) Surgical History H/O aortic valve replacement History of kidney transplant TRANSPLANT, KIDNEY (~1997) LEFT Abdominal hysterectomy (~2006) s/p hyst, but cervix still present and needs yearly PAP due to transplant Repair of umbilical hernia 1995,1997,2001,2003 Family History Mother Essential hypertension Personal history of malignant neoplasm KIDNEY Heart disease Pulmonary emphysema Father Personal history of malignant neoplasm Pulmonary emphysema Brother Hyperlipidemia Brother Hyperlipidemia Brother No problems noted. Social History Smoking/Tobacco Use Status: Current every day Tobacco Type: cigarettes Smoking risk assessment performed?: Yes Alcohol Intake: former Drug use: Daily Substance use type: marijuana Details: mostly edibles Housing: apartment Current gender identity: female Do you feel safe at home: Yes Do you feel safe in your relationship?: Yes
[2023-12-08] MEDS: Acetaminophen 325 MG TAB 650 MG PO (16:12)
--- NOTE | 2023-12-09 11:59 | NUR.NOTE ---
Patient's daughter Hortencia called asking disposition of her mother. She is on the HIPPA form, I told the daughter that I believed that she was transferred to [facility] but [facility]. SHe is going to call [facility]. Nursing Note:
== END 2023-12-08 19:30 | disposition short-term general hospital (02) ==
PROVIDERS: Emergency Provider Physician Assistant; PCP Family Medicine
DX: I48.92 Unspecified atrial flutter (principal)
CPT/HCPCS: 36415; 71275; 80053; 82805; 84145; 87040; 93005; 96365; 96366; 96376; 99291; 83605; 83735; 84443; 84484; 85025; 85379; 85610; 93010

== ENCOUNTER 2023-12-22 11:44 | Emergency (ER) | payer OTHER, SELFPAY ==
[2023-12-22] VITALS (34 sets, daily range): BP systolic 148–215; BP diastolic 56–138; PULSE 62–78; RESP 5–28; TEMP 36.8; O2SAT 94–100
--- NOTE | 2023-12-22 11:45 | RT.EKG_ITS ---
APPROVED REPORT Exam: Resting ECG Reason for Exam: Dyspnea Patient Location: E HR:64 bpm ECG Measurements Heart Rate 64 AXIS IN 188 P 34 QRSd 167 QRS 62 QT 491 T 11 QTc 505 Conclusion Sinus rhythm with RBBB Rate 64 Compared to priors, rate no longer tachycardic
[2023-12-22] MEDS: Albuterol/Ipratropium 3 ML UPD VIAL UPD ×2 (11:50→13:28)
[2023-12-22] MEDS: methylPREDNISolone SUCC 125 MG VIAL 80 MG IVP (12:33)
[2023-12-22 13:13] LABS: BE (Venous) 16 mmol/L (-2-3); HCO3 (Venous) 39 mmol/L (23-28); O2 Sat (Venous) 92 %; TCO2 (Venous) 36 mmol/L (24-29); pCO2 (Venous) 52 mmHg (41-51); pH (Venous) 7.49 (7.31-7.41); pO2 (Venous) 55 mmHg
[2023-12-22 13:15] LABS: Abs Immature Grans 0.01 10^3/uL (0.0-0.06); Absolute Basophil Count 0.04 10^3/uL (0.0-0.2); Absolute Eosinophil Count 0.36 10^3/uL (0.0-0.7); Absolute Lymphocyte Count 0.72 10^3/uL (1.2-3.4); Absolute Monocyte Count 0.49 10^3/uL (0.1-0.8); Absolute Neutrophil Count 3.12 10^3/uL (1.2-6.7); Basophils % 0.8 %; Eosinophils % 7.6 %; HCT 33.1 % (36.0-46.0); HGB 10.7 g/dL (11.2-15.7); Immature Grans % 0.2 %; Lymphocytes % 15.2 %; MCH 30.9 pg (27.0-33.0); MCHC 32.3 % (32.0-36.0); MCV 96 fL (80-95); MPV 12.2 fL (8.0-11.0); Monocytes % 10.3 %; Neutrophils % 65.9 %; RBC 3.46 10^6/uL (3.93-5.22); RDW 13.8 % (11.7-14.6); RDW-SD 48.5 fL; WBC 4.74 10^3/uL (4.4-10.8)
[2023-12-22] MEDS: Albuterol 2.5 MG/3 ML INH SOLN VIAL (13:27)
[2023-12-22 13:33] LABS: Basophilic Stippling Present; Diff Comment Diff Reviewed; Platelet Count 95 10^3/uL (130-400)
[2023-12-22 13:38] LABS: ALT 17 U/L (14-59); AST 22 U/L (15-37); Albumin 3.9 g/dL (3.4-5.0); Alkaline Phosphatase 171 U/L (46-116); Anion Gap 5.1 mmol/L (3-11); BUN 9 mg/dL (7-18); Bilirubin, Total 0.67 mg/dL (0.2-1.0); CO2 37.9 mmol/L (21.0-32.0); CREATININE 2.3 mg/dL (0.55-1.02); Calcium 8.8 mg/dL (8.5-10.1); Chloride 98 mmol/L (98-107); Estimated GFR 23.74 (mL/min/1.73m2); Glucose 84 mg/dL (74-106); Magnesium 1.8 mg/dL (1.8-2.4); Potassium 3.2 mmol/L (3.5-5.1); Sodium 141 mmol/L (136-145); Total Protein 7.4 g/dL (6.4-8.2); Troponin I 32 ng/L (<or=51)
[2023-12-22 14:09] LABS: NT-proBNP > 35000 pg/mL (<300)
--- NOTE | 2023-12-22 15:30 | DI.RAD_ITS ---
Exam(s) XR PORTABLE CHEST AP EXAM: XR PORTABLE CHEST AP CLINICAL HISTORY: shortness of breath TECHNIQUE: 2D digital imaging was performed. COMPARISON: CT CT CHEST PE CTA from 12/08/2023 FINDINGS: LUNGS: Clear. No pleural abnormality seen. HEART: Enlarged. Aortic and tricuspid valve prostheses. AORTA: Normal diameter. BONES: Sternal wires. Spine mainly obscured. Soft tissues: Unremarkable. IMPRESSION: Cardiomegaly. No acute findings. DATA REPOSITORY: RADIATION DOSE DELIVERED:
--- NOTE | 2023-12-22 16:00 | ED.GENADUL_ITS ---
Discharge Plan Disposition Patient Disposition: Home Discharge Details Clinical Impression: Asthma exacerbation in COPD Primary Care Provider: Chano Neves ED Provider: Aarti Peralta Home Meds and New Rx's Prescriptions: New doxycycline hyclate 100 mg capsule 100 mg PO BID Qty: 14 0RF prednisone 20 mg tablet 40 mg PO DAILY Qty: 10 0RF Continued tiotropium bromide [Spiriva with HandiHaler] 18 mcg capsule, w/inhalation device 1 cap inhalation DAILY Qty: 1 0RF Rx Instructions: puncture 1 cap using device; one dose = 2 [facility] fluoxetine 10 mg tablet 10 mg PO DAILY Qty: 30 1RF prazosin 1 mg capsule 1 mg PO QHS Qty: 30 0RF tramadol 50 mg tablet 50 mg PO Q6H PRN (Reason: pain) Qty: 10 0RF Eliquis 5 mg tablet 5 mg PO BID Qty: 60 2RF metoprolol succinate 100 mg tablet extended release 24 hr 100 mg PO DAILY Qty: 90 3RF Rx Instructions: per pt report aspirin 81 MG tablet,chewable 81 mg PO DAILY epinephrine 0.3 mg/0.3 mL auto-injector 0.3 mg IM ONCE PRN Rx Instructions: as a single dose; may repeat once albuterol sulfate [Ventolin HFA] 90 mcg/actuation HFA aerosol inhaler 2 puff inhalation QID PRN (Reason: shortness of breath or wheezing) Qty: 8.5 5RF ipratropium-albuterol 0.5 mg-3 mg(2.5 mg base)/3 mL solution for nebulization 3 ml inhalation Q4H PRN (Reason: shortness of breath or wheezing) Qty: 180 3RF minoxidil 2.5 mg tablet 2.5 mg PO QHS atorvastatin 40 mg tablet 40 mg PO DAILY omeprazole 40 mg Capsule,Delayed Release(Dr/Ec) 40 mg PO BID albuterol sulfate 2.5 mg /3 mL (0.083 %) solution for nebulization 2.5 mg inhalation Q6H PRN (Reason: shortness of breath or wheezing) Qty: 3 0RF Rx Instructions: [facility] ([facility] Aerochamber MV Spacer MISCELLANEOUS No Action trazodone 50 mg tablet 100 mg PO HS PRN Rx Instructions: 1 TAB HS Discharge Instructions Instructions: COPD Exacerbation, Adult ED Additional Instructions: Take the doxycycline once every 12 hours, you received a dose in the emergency department tonight, your next dose will be tomorrow You received a dose of steroid in the emergency department tonight, begin your steroid tomorrow Follow-up with your doctor on Monday Use your nebulizers as instructed and return immediately should you have new or worsening complaints Discharge Data Discharge Date/Time-TO BE ENTERED AT DEPARTURE: 12/22/23 16:10 HPI General Date/Time Provider Initiated Documentation: 12/22/23 11:51 . HPI Narrative: This complex 58-year-old female with history of COPD, dialysis, and new relatively new onset of atrial flutter, thoracic aortic aneurysm presents with report of acute onset of shortness of breath which started after dialysis. Patient states she has a history of COPD stop smoking approximately 1 year ago. Feels tired from dialysis which she was able to successfully complete today. Oxygen dependent on 3 L. Denies any calf pain or swelling, taking Eliquis for relatively new onset of atrial flutter. In normal sinus rhythm at this time. Related Data Home Medications ?Medication ?Instructions ?Recorded ?Confirmed aspirin 81 mg chewable tablet 81 mg PO DAILY 05/24/16 12/22/23 inhalational spacing device 01/26/19 12/22/23 (Aerochamber MV spacer) omeprazole 40 mg capsule,delayed 40 mg PO BID 03/18/19 12/22/23 release tiotropium bromide 18 mcg capsule 1 cap inhalation DAILY #1 inh 02/16/21 12/22/23 with inhalation device (Spiriva with HandiHaler) epinephrine 0.3 mg/0.3 mL 0.3 mg IM ONCE PRN 01/04/23 12/22/23 injection, auto-injector albuterol sulfate 2.5 mg/3 mL 2.5 mg (3 mL) inhalation Q6H PRN 01/16/23 12/22/23 (0.083 %) solution for nebulization shortness of breath or wheezing #3 mL albuterol sulfate 90 mcg/actuation 2 puff inhalation QID PRN 01/24/23 12/22/23 aerosol inhaler (Ventolin HFA) shortness of breath or wheezing #8.5 grams ipratropium 0.5 mg-albuterol 3 mg 3 ml inhalation Q4H PRN shortness 06/27/2302/03 (2.5 mg base)/3 mL nebulization of breath or wheezing #180 mL soln minoxidil 2.5 mg tablet 2.5 mg PO QHS 06/30/23 12/22/23 fluoxetine 10 mg tablet 10 mg PO DAILY #30 tabs 10/05/23 12/22/23 prazosin 1 mg capsule 1 mg PO QHS PTSD #30 caps 11/09/23 12/22/23 tramadol 50 mg tablet 50 mg PO Q6H PRN pain #10 tabs 11/09/23 12/22/23 atorvastatin 40 mg tablet 40 mg PO DAILY 11/14/23 12/22/23 trazodone 50 mg tablet 100 mg PO HS PRN 11/14/23 12/19/23 apixaban 5 mg tablet (Eliquis) 5 mg PO BID #60 tabs 12/19/23 12/22/23 metoprolol succinate 100 mg 100 mg PO DAILY #90 tabs 12/19/23 12/22/23 tablet,extended release 24 hr doxycycline hyclate 100 mg capsule 100 mg PO BID #14 caps 12/22/23 prednisone 20 mg tablet 40 mg (2 x 20 mg) PO DAILY #10 tabs 12/22/23 Previous Rx's ?Medication ?Instructions ?Recorded tiotropium bromide 18 mcg capsule 1 cap inhalation DAILY #1 inh 02/16/21 with inhalation device (Spiriva with HandiHaler) albuterol sulfate 2.5 mg/3 mL 2.5 mg (3 mL) inhalation Q6H PRN 01/16/23 (0.083 %) solution for nebulization shortness of breath or wheezing #3 mL albuterol sulfate 90 mcg/actuation 2 puff inhalation QID PRN 01/24/23 aerosol inhaler (Ventolin HFA) shortness of breath or wheezing #8.5 grams ipratropium 0.5 mg-albuterol 3 mg 3 ml inhalation Q4H PRN shortness 06/27/23 (2.5 mg base)/3 mL nebulization of breath or wheezing #180 mL soln fluoxetine 10 mg tablet 10 mg PO DAILY #30 tabs 10/05/23 prazosin 1 mg capsule 1 mg PO QHS PTSD #30 caps 11/09/23 tramadol 50 mg tablet 50 mg PO Q6H PRN pain #10 tabs 11/09/23 apixaban 5 mg tablet (Eliquis) 5 mg PO BID #60 tabs 12/19/23 metoprolol succinate 100 mg 100 mg PO DAILY #90 tabs 12/19/23 tablet,extended release 24 hr doxycycline hyclate 100 mg capsule 100 mg PO BID #14 caps 12/22/23 prednisone 20 mg tablet 40 mg (2 x 20 mg) PO DAILY #10 tabs 12/22/23 Allergies Allergy/AdvReac Type Severity Reaction Status Date / Time cephalexin monohydrate (From Allergy Severe trouble Verified 12/22/23 11:51 Keflex) breathing colchicine Allergy Unknown Verified 12/22/23 11:51 allopurinol AdvReac Intermediate gout Verified 12/22/23 11:51 breakout erythromycin base AdvReac Intermediate gout Verified 12/22/23 11:51 breakout General Stated Complaint: SOB AWA: 3 Exam Narrative Exam Narrative: 58-year-old female alert and oriented, mild respiratory distress, cardiac rate rhythm regular, wheezes throughout, no abdominal tenderness, alert and oriented x 4, no calf swelling or tenderness, Appears Tired Course Vital Signs Vital signs: Vital Signs Temperature 36.8 C 12/22/23 11:45 Pulse 69 12/22/23 11:45 Respiratory Rate 18 12/22/23 11:45 Blood Pressure 177/84 H 12/22/23 11:45 Pulse Oximetry 98 12/22/23 11:45 Temperature 36.8 C 12/22/23 11:45 Temperature Source Temporal Artery Scan 12/22/23 11:45 Pulse 66 12/22/23 11:50 Respiratory Rate 18 12/22/23 12:30 Respiratory Effort Normal 12/22/23 12:30 Respiratory Depth Normal 12/22/23 12:30 Respiratory Pattern Normal 12/22/23 12:30 Blood Pressure 177/84 H 12/22/23 11:45 Blood Pressure Position Sitting 12/22/23 11:45 Pulse Oximetry 95 12/22/23 11:50 Oxygen Delivery Method Nasal Cannula 12/22/23 11:50 Oxygen Flow Rate 0 12/22/23 11:45 Lab/Test Results Lab/Test Results: Laboratory Tests Range/Units 12/22/23 13:05 WBC (4.4-10.8) 10^3/uL 4.74 RBC (3.93-5.22) 10^6/uL 3.46 L Hgb (11.2-15.7) g/dL 10.7 L Hct (36.0-46.0) % 33.1 L MCV (80-95) fL 96 H MCH (27.0-33.0) pg 30.9 MCHC (32.0-36.0) % 32.3 RDW (11.7-14.6) % 13.8 Plt Count (130-400) 10^3/uL 95 L MPV (8.0-11.0) fL 12.2 H Immature Gran % % 0.2 Neutrophils % % 65.9 Lymphocytes % % 15.2 Monocytes % % 10.3 Eosinophils % % 7.6 Basophils % % 0.8 Nucleated RBC % (0.0-0.3) % 0.0 Absolute Neutrophils (1.2-6.7) 10^3/uL 3.12 Absolute Lymphocytes (1.2-3.4) 10^3/uL 0.72 L Absolute Monocytes (0.1-0.8) 10^3/uL 0.49 Absolute Eosinophils (0.0-0.7) 10^3/uL 0.36 Absolute Basophils (0.0-0.2) 10^3/uL 0.04 RBC Morphology See Below Basophilic Stippling Present VBG pH (7.31-7.41) 7.49 H VBG pCO2 (41-51) mmHg 52 H VBG pO2 mmHg 55 VBG HCO3 (23-28) mmol/L 39 H VBG Total CO2 (24-29) mmol/L 36 H VBG O2 Saturation % 92 VBG Base Excess (-2-3) mmol/L 16 H Sodium (136-145) mmol/L 141 Potassium (3.5-5.1) mmol/L 3.2 L Chloride (98-107) mmol/L 98 Carbon Dioxide (21.0-32.0) mmol/L 37.9 H Anion Gap (3-11) mmol/L 5.1 BUN (7-18) mg/dL 9 Creatinine (0.55-1.02) mg/dL 2.3 H Est GFR (CKD-EPI 2020) (mL/min/1.73m2) 23.74 Glucose (74-106) mg/dL 84 Calcium (8.5-10.1) mg/dL 8.8 Magnesium (1.8-2.4) mg/dL 1.8 Total Bilirubin (0.2-1.0) mg/dL 0.67 AST (15-37) U/L 22 ALT (14-59) U/L 17 Alkaline Phosphatase (46-116) U/L 171 H Troponin I (<or=51) ng/L 32 NT-Pro-B Natriuret Pep (<300) pg/mL > 02744 H Total Protein (6.4-8.2) g/dL 7.4 Albumin (3.4-5.0) g/dL 3.9 Medical Decision Making 58-year-old female acute and oriented, mild respiratory distress. Given 3 double DuoNebs in the emergency department. Given Solu-Medrol. Chest x-ray does not show evidence of acute abnormality. Patient with BNP of greater than 35,000 consistent for her. Negative cardiac workup otherwise for patient. Initial troponin negative without any chest discomfort. Low suspicion for pulmonary embolism clinically. Patient with ipratropium and albuterol at home. Given doxycycline to treat for COPD exacerbation and prednisone. Patient was able to ambulate without significant hypoxia and is on her baseline 3 L and feeling significantly improved at her respiratory baseline. She is requesting discharge home at this time and I think this is reasonable. Given very low threshold to return with new or worsening complaints Quality:SDOH Health Related Social Needs: No Data to Display PFSH All Active Problems (Updated 12/22/23 @ 15:29 by SHIRA Pepper) Asthma exacerbation in COPD (Acute) Dialysis patient (Acute) Atrial flutter (Acute) Tibial plateau fracture, left (Acute 10/27/23) PTSD (post-traumatic stress disorder) (Acute) Thoracic aortic aneurysm (Acute) 4 cm 09/2023 Anxiety disorder (Acute) Shoulder pain, right (Acute) Vaginal bleeding (Acute) Thrombocytopenia (Chronic) Angioedema (Acute) Vaginal lesion (Acute) ESRD on dialysis (Chronic) On hemodialysis currently using central catheter-nephrology at [facility] receives dialysis at [facility] region Depression (Acute 08/28/14) Gallstones (Acute) COPD (chronic obstructive pulmonary disease) (Chronic) [facility]monary at [facility] Central venous catheter in place [place]Acute [place]10[place]29/19[place] [facility] [place] Tricuspid regurgitation (Acute) s/p tricuspid valve replacement 02/2020, bovine Cirrhosis, alcoholic (Acute) POLST (Physician Orders for Life-Sustaining Treatment) (Acute) COLST completed 02/13/2020, DNR/DNI. 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/19[place] [facility] [place] dyst[place] Cannabis dependence Cyst of ovary (08/20/12) Depression (09/14/12) Recurrent urinary tract infection Upper GI bleed (05/17/14) 05/15/14 [facility] [place], esophagitis, gastric ulcer and duodenitis Umbilical hernia repaired 1995,1997,2001,2003 Hyperparathyroidism, unspecified (02/09/11) 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[facility] [place]lipidemia Gastroesophageal reflux disease with esophagitis (02/03/15) Essential hypertension (01/16/13) severe and labile Diverticulitis of large intestine without perforation or abscess with bleeding Bleeding hemorrhoids (01/08/13) rectal bleeding ([place] [facility] [place] internal hemorrhoids and diverticuli) Surgical History H/O aortic valve replacement History of kidney transplant TRANSPLANT, KIDNEY (~1997) LEFT Abdominal hysterectomy (~2006) s/p hyst, but cervix still present and needs yearly PAP due to transplant Repair of umbilical hernia 1995,1997,2001,2003 Family History Mother Essential hypertension Personal history of malignant neoplasm KIDNEY Heart disease Pulmonary emphysema Father Personal history of malignant neoplasm Pulmonary emphysema Brother Hyperlipidemia Brother Hyperlipidemia Brother No problems noted. Social History Smoking/Tobacco Use Status: Current every day Tobacco Type: cigarettes Smoking risk assessment performed?: Yes Alcohol Intake: former Drug use: Daily Substance use type: marijuana Details: mostly edibles Housing: apartment Current gender identity: female Do you feel safe at home: Yes Do you feel safe in your relationship?: Yes
[2023-12-22] MEDS: Doxycycline Hyclate 100 MG CAP PO (16:03)
== END 2023-12-22 16:10 | disposition home or self-care (01) ==
PROVIDERS: Emergency Provider Physician Assistant; PCP Family Medicine
DX: J44.1 Chronic obstructive pulmonary disease with (acute) exacerbation (principal); J45.901 Unspecified asthma with (acute) exacerbation; N25.81 Secondary hyperparathyroidism of renal origin; E78.5 Hyperlipidemia, unspecified; I45.19 Other right bundle-branch block; I12.0 Hypertensive chronic kidney disease with stage 5 chronic kidney disease or end stage renal disease; N18.6 End stage renal disease; Z94.0 Kidney transplant status; Z79.82 Long term (current) use of aspirin; Z79.01 Long term (current) use of anticoagulants; Z99.2 Dependence on renal dialysis; F17.210 Nicotine dependence, cigarettes, uncomplicated
CPT/HCPCS: 80053; 82805; 87637; 93005; 94640; 96374; 99285; 71045; 83735; 83880; 84484; 85025; 93010; 99284; J2919; J7613; J7620

== ENCOUNTER 2023-12-25 16:01 | Emergency (ER) | payer OTHER, SELFPAY ==
[2023-12-25] VITALS (48 sets, daily range): BP systolic 171; BP diastolic 71; PULSE 48–90; RESP 5–21; TEMP 37; O2SAT 91–100
--- NOTE | 2023-12-25 16:00 | RT.EKG_ITS ---
APPROVED REPORT Exam: Resting ECG Reason for Exam: Inhalation burn Patient Location: E HR:52 bpm ECG Measurements Heart Rate 52 AXIS NC 169 P -40 QRSd 168 QRS 52 QT 560 T 4 QTc 524 Conclusion Sinus bradycardia, rate 52 RBBB No STEMI No significant change compared to priors
[2023-12-25] MEDS: Albuterol/Ipratropium 3 ML UPD VIAL UPD (16:18)
[2023-12-25] MEDS: fentaNYL 100 MCG/2 ML VIAL 50 MCG IVP (16:34)
[2023-12-25] MEDS: methylPREDNISolone SUCC 125 MG VIAL IVP (16:34)
[2023-12-25 16:40] LABS: BE (Venous) 12 mmol/L (-2-3); HCO3 (Venous) 35 mmol/L (23-28); pCO2 (Venous) 43 mmHg (41-51); pH (Venous) 7.52 (7.31-7.41); pO2 (Venous) 172 mmHg
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
[2023-12-25 17:00] LABS: ALT 21 U/L (14-59); AST 25 U/L (15-37); Albumin 3.8 g/dL (3.4-5.0); Alkaline Phosphatase 142 U/L (46-116); Anion Gap 8.7 mmol/L (3-11); BUN 18 mg/dL (7-18); Bilirubin, Total 0.65 mg/dL (0.2-1.0); CO2 32.3 mmol/L (21.0-32.0); CREATININE 3.1 mg/dL (0.55-1.02); Calcium 8.3 mg/dL (8.5-10.1); Chloride 99 mmol/L (98-107); Estimated GFR 16.59 (mL/min/1.73m2); Glucose 86 mg/dL (74-106); Magnesium 1.8 mg/dL (1.8-2.4); Potassium 3.8 mmol/L (3.5-5.1); Sodium 140 mmol/L (136-145); Total Protein 7.2 g/dL (6.4-8.2); Troponin I 29 ng/L (<or=51)
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
[2023-12-25 17:11] LABS: Carboxyhemoglobin 2.6 %
[2023-12-25 17:20] LABS: Abs Immature Grans 0.01 10^3/uL (0.0-0.06); Absolute Basophil Count 0.04 10^3/uL (0.0-0.2); Absolute Eosinophil Count 0.25 10^3/uL (0.0-0.7); Absolute Lymphocyte Count 0.74 10^3/uL (1.2-3.4); Absolute Monocyte Count 0.47 10^3/uL (0.1-0.8); Absolute Neutrophil Count 3.66 10^3/uL (1.2-6.7); Basophils % 0.8 %; Eosinophils % 4.8 %; HCT 31.9 % (36.0-46.0); Immature Grans % 0.2 %; Lymphocytes % 14.3 %; MCHC 31.3 % (32.0-36.0); MCV 96 fL (80-95); Monocytes % 9.1 %; Neutrophils % 70.8 %; RBC 3.33 10^6/uL (3.93-5.22); RDW 13.8 % (11.7-14.6); WBC 5.17 10^3/uL (4.4-10.8)
[2023-12-25 17:25] LABS: Platelet Count 87 10^3/uL (130-400)
[2023-12-25 17:44] LABS: Troponin I 26 ng/L (<or=51)
[2023-12-25 20:00] LABS: Troponin I 25 ng/L (<or=51)
[2023-12-25] MEDS: MORPHine 4 MG/ML SYR IVP (22:09)
[2023-12-26] VITALS (55 sets, daily range): BP systolic 143–174; BP diastolic 59–105; PULSE 51–109; RESP 10–25; O2SAT 93–100
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
--- NOTE | 2023-12-26 01:21 | NUR.NOTE ---
Nursing Note: [facility] SHAKIRA Cha updated on pt status and ETA to their facility. No changes in pt condition from original report given by previous RN. Update: Pt to be transported after 0700 shift change at [facility]. ETA to [facility] = 1000.
[2023-12-26] MEDS: Metoprolol CR 100 MG TABCR PO (02:28)
[2023-12-26] MEDS: Albuterol 2.5 MG/3 ML INH SOLN VIAL UPD (04:57)
[2023-12-26 04:58] LABS: BE (Venous) 11 mmol/L (-2-3); HCO3 (Venous) 35 mmol/L (23-28); O2 Sat (Venous) 91 %; TCO2 (Venous) 32 mmol/L (24-29); pCO2 (Venous) 50 mmHg (41-51); pH (Venous) 7.46 (7.31-7.41); pO2 (Venous) 55 mmHg
[2023-12-26 05:01] LABS: Abs Immature Grans 0.02 10^3/uL (0.0-0.06); Absolute Basophil Count 0.01 10^3/uL (0.0-0.2); Absolute Lymphocyte Count 0.34 10^3/uL (1.2-3.4); Absolute Monocyte Count 0.29 10^3/uL (0.1-0.8); Absolute Neutrophil Count 4.74 10^3/uL (1.2-6.7); Basophils % 0.2 %; HCT 34.7 % (36.0-46.0); HGB 10.9 g/dL (11.2-15.7); Immature Grans % 0.4 %; Lymphocytes % 6.3 %; MCH 30.4 pg (27.0-33.0); MCHC 31.4 % (32.0-36.0); MCV 97 fL (80-95); MPV 12.8 fL (8.0-11.0); Monocytes % 5.4 %; Neutrophils % 87.7 %; Platelet Count 100 10^3/uL (130-400); RBC 3.59 10^6/uL (3.93-5.22); RDW 13.8 % (11.7-14.6); RDW-SD 49.4 fL
[2023-12-26] MEDS: Acetaminophen 325 MG TAB 650 MG PO (05:32)
[2023-12-26 06:09] LABS: Anion Gap 6.5 mmol/L (3-11); BUN 28 mg/dL (7-18); CO2 34.5 mmol/L (21.0-32.0); Calcium 8.2 mg/dL (8.5-10.1); Chloride 98 mmol/L (98-107); Estimated GFR 10.61 (mL/min/1.73m2); Glucose 96 mg/dL (74-106); Potassium 4.7 mmol/L (3.5-5.1); Sodium 139 mmol/L (136-145)
[2023-12-26 06:10] LABS: CREATININE 4.5 mg/dL (0.55-1.02)
== END 2023-12-26 07:39 | disposition short-term general hospital (02) ==
PROVIDERS: Emergency Medicine; Emergency Provider Student in an Organized Health Care Education/Training Program; PCP Family Medicine
DX: T20.29XA Burn of second degree of multiple sites of head, face, and neck, initial encounter (principal); T31.0 Burns involving less than 10% of body surface; I12.0 Hypertensive chronic kidney disease with stage 5 chronic kidney disease or end stage renal disease; N18.6 End stage renal disease; J44.9 Chronic obstructive pulmonary disease, unspecified; I48.92 Unspecified atrial flutter; I45.19 Other right bundle-branch block; Z95.2 Presence of prosthetic heart valve; Z99.2 Dependence on renal dialysis; Z94.0 Kidney transplant status; Z99.81 Dependence on supplemental oxygen; W36.8XXA Explosion and rupture of other gas cylinder, initial encounter; Y93.89 Activity, other specified; Y92.018 Other place in single-family (private) house as the place of occurrence of the external cause
CPT/HCPCS: 00123; 36415; 80048; 80053; 82375; 82805; 93005; 94640; 96374; 96375; 99285; 71045; 83735; 84484; 85025; 93010; J2270; J2919; J3010; J7613; J7620

== ENCOUNTER 2024-01-17 05:38 | Emergency (ER) | payer OTHER, SELFPAY ==
[2024-01-17] VITALS (25 sets, daily range): BP systolic 102–230; BP diastolic 73–119; PULSE 60–79; RESP 11–22; TEMP 36.8; O2SAT 89–100
--- NOTE | 2024-01-17 05:45 | DI.RAD_ITS ---
Exam(s) XR PORTABLE CHEST AP EXAM: XR PORTABLE CHEST AP CLINICAL HISTORY: SOB TECHNIQUE: 2D digital imaging was performed of the chest. One image was obtained. An AP view was ob tained. COMPARISON: CR,XR XR CHEST 2V PA LATERAL from 10/29/2023 CR XR PORTABLE CHEST AP from 12/25/2023 FINDINGS: MEDIASTINUM: Normal. HEART: Cardiomegaly. Prosthetic cardiac valves are again seen. PULMONARY VASCULATURE: Normal. LUNGS: Clear. PLEURAL SPACE: No pleural effusion or pneumothorax. BONE:Within normal limits for the patient's age. Sternal wires are in place. OTHER FINDINGS:Normal. IMPRESSION: 1. No acute pulmonary findings. 2. Cardiomegaly. DATA REPOSITORY: RADIATION DOSE DELIVERED:
--- NOTE | 2024-01-17 05:45 | RT.EKG_ITS ---
APPROVED REPORT Exam: Resting ECG Reason for Exam: SOB Patient Location: E HR:67 bpm ECG Measurements Heart Rate 67 AXIS PA 183 P -29 QRSd 158 QRS 50 QT 486 T -1 QTc 516 Conclusion Sinus rhythm...normal P axis, V-rate 60- 99 Right bundle branch block...QRSd>120, terminal axis(90,270) limited interp 2/t artifact
[2024-01-17 05:52] LABS: BE (Venous) 11 mmol/L (-2-3); HCO3 (Venous) 36 mmol/L (23-28); pCO2 (Venous) 57 mmHg (41-51); pO2 (Venous) 160 mmHg
[2024-01-17 05:53] LABS: O2 Sat (Venous) > 99 %
[2024-01-17 05:59] LABS: Abs Immature Grans 0.02 10^3/uL (0.0-0.06); Absolute Basophil Count 0.07 10^3/uL (0.0-0.2); Absolute Eosinophil Count 0.45 10^3/uL (0.0-0.7); Absolute Lymphocyte Count 0.94 10^3/uL (1.2-3.4); Absolute Monocyte Count 0.64 10^3/uL (0.1-0.8); Absolute Neutrophil Count 3.28 10^3/uL (1.2-6.7); Basophils % 1.3 %; Eosinophils % 8.3 %; HCT 32.7 % (36.0-46.0); HGB 10.2 g/dL (11.2-15.7); Immature Grans % 0.4 %; Lymphocytes % 17.4 %; MCH 30.6 pg (27.0-33.0); MCHC 31.2 % (32.0-36.0); MCV 98 fL (80-95); Monocytes % 11.9 %; Neutrophils % 60.7 %; RBC 3.33 10^6/uL (3.93-5.22); RDW 14.8 % (11.7-14.6); RDW-SD 53.9 fL
[2024-01-17 06:11] LABS: INR 1.3 (0.9-1.1); PTT Activated 28.5 sec (23.6-32.8); Prothrombin Time 12.6 sec (9.1-11.1)
[2024-01-17 06:18] LABS: ALT 20 U/L (14-59); AST 24 U/L (15-37); Albumin 3.7 g/dL (3.4-5.0); Alkaline Phosphatase 136 U/L (46-116); Anion Gap 6.3 mmol/L (3-11); BUN 57 mg/dL (7-18); Bilirubin, Total 0.68 mg/dL (0.2-1.0); CO2 35.7 mmol/L (21.0-32.0); Calcium 8.2 mg/dL (8.5-10.1); Chloride 102 mmol/L (98-107); Estimated GFR 5.94 (mL/min/1.73m2); Glucose 121 mg/dL (74-106); Potassium 4.8 mmol/L (3.5-5.1); Sodium 144 mmol/L (136-145); Total Protein 7.1 g/dL (6.4-8.2); Troponin I 28 ng/L (<or=51)
[2024-01-17 06:25] LABS: CREATININE 7.3 mg/dL (0.55-1.02)
[2024-01-17] MEDS: Lidocaine 2% Multi-Dose 50 ML VIAL (06:26)
[2024-01-17] MEDS: Gelatin SPONGE 12-7 MM PKT 1 EACH TP ×2 (06:26→08:55)
[2024-01-17] MEDS: Albuterol/Ipratropium 3 ML UPD VIAL UPD ×2 (06:27→06:28)
[2024-01-17] MEDS: Metoprolol CR 100 MG TABCR PO (06:29)
[2024-01-17] MEDS: Tranexamic Acid 1,000 MG/10 ML VIAL 500 MG NS (06:29)
[2024-01-17 06:31] LABS: Platelet Count 85 10^3/uL (130-400)
[2024-01-17 06:32] LABS: Diff Comment Diff Reviewed; RBC Morphology Normal
[2024-01-17 06:50] LABS: NT-proBNP > 35000 pg/mL (<300)
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
--- NOTE | 2024-01-17 07:49 | DI.VRAD_ITS ---
PROCEDURE INFORMATION: Exam: XR Chest Exam date and time: 01/17/2024 6:13 AM Age: 58 years old Clinical indication: Shortness of breath; Prior surgery; Surgery date: 6+ months; Surgery type: Cabg; Patient HX: SOB TECHNIQUE: Imaging protocol: Radiologic exam of the chest. Views: 1 view. COMPARISON: CR XR PORTABLE CHEST AP 12/25/2023 4:59 PM FINDINGS: Lungs: Stable interstitial prominence. Pleural spaces: Unremarkable. No pleural effusion. No pneumothorax. Heart/Mediastinum: Stable cardiomediastinal appearance. Stable cardiomegaly. Bones/joints: Status post midline sternotomy. IMPRESSION: 1. Stable cardiomegaly status post sternotomy changes. 2. No focal consolidation. 3. Unchanged appearance from 12/25/2023. Dictated and Authenticated by: Cristian Lovelace MD. Ordering:YVON Burnett MD
--- NOTE | 2024-01-17 07:53 | NUR.NOTE ---
pt cleaned up from nosebleed nasal packing inserted by MD Nursing Note:
[2024-01-17] MEDS: Lidocaine/Epinephri/Tetracaine Topical Gel 3 ML (08:10)
--- NOTE | 2024-01-17 09:13 | W.EDPROG ---
Date of service: 01/17/24 Time of Service: 09:13 Medical Decision Making Patient was signed out to me pending reevaluation after nasal packing was placed. Patient's laboratory workup and already been evaluated, patient's hemodynamic status and laboratory status is stable for her baseline. Nasal packing was placed in the left nose prior to my arrival. This has been doing well, however the patient does have mild ooze coming from her right nose as well. Nasal packing was placed in that and patient had complete hemostasis of the bleeding. Patient tolerated well. Patient was observed for an extended amount of time and had no repeat bleeding. Patient stable for discharge. Patient is to go to dialysis for her 10:00 appointment. Patient will be discharged. Discussed red flags which to return. I have extensively reviewed the treatment plan and discharge instructions with the patient. I have addressed all patient concerns at this time. The patient was made aware of what symptoms to monitor for that would warrant a return to the emergency department. Discussed the plan with the patient, they demonstrate verbal understanding and agreement with our assessment and plan at this time. The documentation in this chart was dictated using Gridsum dictation software. Please excuse any dictation errors. At time of discharge patient got up, ambulated well and remained hemodynamically stable. Quality:SDOH Health Related Social Needs: No Data to Display Procedures Epistaxis Control Time Out Performed: Yes Nostril: right Nose Prepped With: lidocaine Direct Inspection: yes Clots Removed by: blowing nose Cautery Used: none Device Inserted: nasal tampon Device Size: 4 Patient Tolerated Procedure: well and no complications Sign Out Sign Out Data: Sign Out Comment: Epistaxis; anterior RR in place left nares. Reassess in ~30 minutes for bleeding control Was also SOB on arrival, improved after duoneb, labs/CXR/EKG all baseline for pt. Last updated by Hortencia Childers MD at 01/17/24 07:43 Discharge Plan Disposition Patient Disposition: Home Condition: Good Discharge Details Chief Complaint: Epistaxis Clinical Impression: Acute anterior epistaxis Primary Care Provider: Chano Neves ED Provider: Bhanu Mayorga Home Meds and New Rx's Prescriptions: No Action tiotropium bromide [Spiriva with HandiHaler] 18 mcg capsule, w/inhalation device 1 cap inhalation DAILY Qty: 1 0RF Rx Instructions: puncture 1 cap using device; one dose = 2 inhalations from [facility] trazodone 50 mg tablet 100 mg PO HS PRN Rx Instructions: 1 TAB HS fluoxetine 10 mg tablet 10 mg PO DAILY Qty: 30 1RF tramadol 50 mg tablet 50 mg PO Q6H PRN (Reason: pain) Qty: 10 0RF Eliquis 5 mg tablet 5 mg PO BID Qty: 60 2RF metoprolol succinate 100 mg tablet extended release 24 hr 100 mg PO DAILY Qty: 90 3RF Rx Instructions: per pt report aspirin 81 MG tablet,chewable 81 mg PO DAILY epinephrine 0.3 mg/0.3 mL auto-injector 0.3 mg IM ONCE PRN Rx Instructions: as a single dose; may repeat once albuterol sulfate [Ventolin HFA] 90 mcg/actuation HFA aerosol inhaler 2 puff inhalation QID PRN (Reason: shortness of breath or wheezing) Qty: 8.5 5RF ipratropium-albuterol 0.5 mg-3 mg(2.5 mg base)/3 mL solution for nebulization 3 ml inhalation Q4H PRN (Reason: shortness of breath or wheezing) Qty: 180 3RF minoxidil 2.5 mg tablet 2.5 mg PO QHS atorvastatin 40 mg tablet 40 mg PO DAILY prazosin 1 mg capsule 1 mg PO QHS Qty: 30 2RF omeprazole 40 mg Capsule,Delayed Release(Dr/Ec) 40 mg PO BID albuterol sulfate 2.5 mg /3 mL (0.083 %) solution for nebulization 2.5 mg inhalation Q6H PRN (Reason: shortness of breath or wheezing) Qty: 3 0RF Rx Instructions: [facility] (D[facility]) Aerochamber MV Spacer MISCELLANEOUS doxycycline hyclate 100 mg capsule 100 mg PO BID Qty: 14 0RF prednisone 20 mg tablet 40 mg PO DAILY Qty: 10 0RF Discharge Instructions Instructions: Nosebleeds ED Additional Instructions: At this time your nosebleeds have stopped. Please keep the nasal tampons in for the next 5 days. Please follow-up closely with your primary care provider or ENT to have these removed. If you notice any worsening of your symptoms, or any new symptoms such as vomiting, diarrhea, fever, chills, shortness of breath, chest pain, numbness, weakness, or fainting , please return immediately to the emergency department for reevaluation. Please follow up with your primary care provider as soon as possible for reassessment and reevaluation. As always, it was a pleasure participating in your medical care today. Referrals: Grant David MD [ [facility] STAFF PHYSICIAN] - Chano Neves MD [Primary Care Provider] -
== END 2024-01-17 09:37 | disposition home or self-care (01) ==
PROVIDERS: Student in an Organized Health Care Education/Training Program; Emergency Provider Student in an Organized Health Care Education/Training Program; PCP Family Medicine
DX: R04.0 Epistaxis (principal); I12.0 Hypertensive chronic kidney disease with stage 5 chronic kidney disease or end stage renal disease; N18.6 End stage renal disease; J44.9 Chronic obstructive pulmonary disease, unspecified; I45.19 Other right bundle-branch block; Z79.01 Long term (current) use of anticoagulants; Z99.81 Dependence on supplemental oxygen; Z99.2 Dependence on renal dialysis; Z94.0 Kidney transplant status; Z95.2 Presence of prosthetic heart valve
CPT/HCPCS: 00123; 30903; 36415; 80053; 82805; 93005; 94640; 96374; 99285; 71045; 83880; 84484; 85025; 85610; 85730; 93010; 99284; J2003; J7620

== ENCOUNTER 2024-01-18 12:50 | Emergency (ER) | payer OTHER, SELFPAY ==
[2024-01-18 12:52] VITALS: BP 119/58; PULSE 59; RESP 20; TEMP 37.5; O2SAT 95
[2024-01-18] MEDS: Oxymetazolone 0.05% SPRAY 15 ML BTL NS (13:15)
[2024-01-18 13:47] VITALS: O2SAT 98
[2024-01-18] MEDS: Albuterol/Ipratropium 3 ML UPD VIAL (13:47)
[2024-01-18 14:16] VITALS: BP 132/59; PULSE 66; O2SAT 96
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
== END 2024-01-18 14:22 | disposition home or self-care (01) ==
PROVIDERS: Emergency Provider Emergency Medicine; PCP Family Medicine
DX: R04.0 Epistaxis (principal); J44.9 Chronic obstructive pulmonary disease, unspecified; Z99.81 Dependence on supplemental oxygen; F17.210 Nicotine dependence, cigarettes, uncomplicated; T20.00XD Burn of unspecified degree of head, face, and neck, unspecified site, subsequent encounter; X08.8XXD Exposure to other specified smoke, fire and flames, subsequent encounter
CPT/HCPCS: 94640; 99284; J7620

== ENCOUNTER 2024-02-15 16:09 | Emergency (ER) | payer OTHER, SELFPAY ==
[2024-02-15 16:11] VITALS: BP 88/57; PULSE 80; RESP 16; TEMP 36.4; O2SAT 97
--- NOTE | 2024-02-15 18:00 | DI.RAD_ITS ---
Exam(s) XR CHEST 2V PA LATERAL EXAM: XR CHEST 2V PA LATERAL CLINICAL HISTORY: Cough, Fever, SOB TECHNIQUE: 2D digital imaging was performed of the chest. Two images were obtained. PA and lateral views were obtained. COMPARISON: CR,XR XR PORTABLE CHEST AP from 01/17/2024 FINDINGS: MEDIASTINUM: Normal. HEART: Cardiomegaly. Cardiac valve replacements are present. PULMONARY VASCULATURE: Normal. LUNGS: The lungs are hyperinflated with flattened diaphragms suggesting underlying COPD. No focal co nsolidating infiltrates are seen. PLEURAL SPACE: No pleural effusion or pneumothorax. BONE:Within normal limits for the patient's age. Sternal wires are in place. OTHER FINDINGS:Normal. IMPRESSION: No acute pulmonary findings. DATA REPOSITORY: RADIATION DOSE DELIVERED:
--- NOTE | 2024-02-15 18:06 | ED.GENADUL_ITS ---
Discharge Plan Disposition Patient Disposition: Home Condition: Stable Discharge Details Clinical Impression: Acute exacerbation of chronic obstructive pulmonary disease Primary Care Provider: Chano Neves ED Provider: Lyn Márquez [place] Meds and New Rx's Prescriptions: New azithromycin 250 mg tablet See Rx Instructions .ROUTE .COMPLEX 6 Days Qty: 6 0RF Rx Instructions: For 250 mg dose pack: take 500 mg today (day 1), then 250 mg for 4 days (days 2-5) prednisone 20 mg tablet 60 mg PO DAILY 5 Days Qty: 15 0RF No Action tiotropium bromide [Spiriva with HandiHaler] 18 mcg capsule, w/inhalation device 1 cap inhalation DAILY Qty: 1 0RF Rx Instructions: puncture 1 cap using device; one dose = 2 inhalations from [facility] trazodone 50 mg tablet 100 mg PO HS PRN Rx Instructions: 1 TAB HS fluoxetine 10 mg tablet 10 mg PO DAILY Qty: 30 1RF tramadol 50 mg tablet 50 mg PO Q6H PRN (Reason: pain) Qty: 10 0RF Eliquis 5 mg tablet 5 mg PO BID Qty: 60 2RF metoprolol succinate 100 mg tablet extended release 24 hr 100 mg PO DAILY Qty: 90 3RF Rx Instructions: per pt report aspirin 81 MG tablet,chewable 81 mg PO DAILY epinephrine 0.3 mg/0.3 mL auto-injector 0.3 mg IM ONCE PRN Rx Instructions: as a single dose; may repeat once albuterol sulfate [Ventolin HFA] 90 mcg/actuation HFA aerosol inhaler 2 puff inhalation QID PRN (Reason: shortness of breath or wheezing) Qty: 8.5 5RF ipratropium-albuterol 0.5 mg-3 mg(2.5 mg base)/3 mL solution for nebulization 3 ml inhalation Q4H PRN (Reason: shortness of breath or wheezing) Qty: 180 3RF minoxidil 2.5 mg tablet 2.5 mg PO QHS atorvastatin 40 mg tablet 40 mg PO DAILY prazosin 1 mg capsule 1 mg PO QHS Qty: 30 2RF omeprazole 40 mg Capsule,Delayed Release(Dr/Ec) 40 mg PO BID albuterol sulfate 2.5 mg /3 mL (0.083 %) solution for nebulization 2.5 mg inhalation Q6H PRN (Reason: shortness of breath or wheezing) Qty: 3 0RF Rx Instructions: [facility] (D[facility]) Aerochamber MV Spacer MISCELLANEOUS Discharge Instructions Instructions: COPD Exacerbation, Adult ED Additional Instructions: Congratulations on not smoking for the last 5 days! :) This can explain the increased phlegm. Could also have a viral URI that is going around. No evidence of pneumonia on the x-ray, no evidence of heart attack or problems with your heart. The remainder of your workup is at your baseline. Please take the medications as prescribed. Prednisone for the next 5 days and the azithromycin. Please keep your appointment for dialysis tomorrow as previously scheduled. Follow up with primary care provider in 3-5 days. Return to ED sooner if any worsening or concerns. Please take Tylenol with food every 4-6 hours as needed for pain, fever . . Thank you for allowing us to care for you today. Referrals: Chano Neves MD [Primary Care Provider] - 3 days HPI General Mode of arrival: ambulatory . Date/Time Provider Initiated Documentation: 02/15/24 16:23 . Limitations to Documentation: no limitations . Information obtained by: patient, RN notes reviewed and old records reviewed . HPI Narrative: 58-year-old female with past medical history of renal failure on dialysis, COPD, cardiovascular disease, right sided heart failure, hyperlipidemia and hypertension reports to the ER with a chief complaint of increased shortness of breath, chest heaviness and increased need for continuous oxygen today. She normally only wears it at night. She states that the chest pressure is allevi ated with oxygen. She also reports fever at home of 101 per her home health nurse, increased productive cough with white phlegm, and headache. She also states 2 days of diarrhea which is light brown and watery. She is slightly hypotensive upon arrival unable to get a blood pressure in the upper arms triage nurse got a blood pressure on her lower left extremity. Related Data Home Medications ?Medication ?Instructions ?Recorded ?Confirmed aspirin 81 mg chewable tablet 81 mg PO DAILY 05/24/16 02/15/24 inhalational spacing device 01/26/19 02/15/24 (Aerochamber MV spacer) omeprazole 40 mg capsule,delayed 40 mg PO BID 03/18/19 02/15/24 release tiotropium bromide 18 mcg capsule 1 cap inhalation DAILY #1 inh 02/16/21 02/15/24 with inhalation device (Spiriva with HandiHaler) epinephrine 0.3 mg/0.3 mL 0.3 mg IM ONCE PRN 01/04/23 02/15/24 injection, auto-injector albuterol sulfate 2.5 mg/3 mL 2.5 mg (3 mL) inhalation Q6H PRN 01/16/23 02/15/24 (0.083 %) solution for nebulization shortness of breath or wheezing #3 mL albuterol sulfate 90 mcg/actuation 2 puff inhalation QID PRN 01/24/23 02/15/24 aerosol inhaler (Ventolin HFA) shortness of breath or wheezing #8.5 grams ipratropium 0.5 mg-albuterol 3 mg 3 ml inhalation Q4H PRN shortness 06/27/23 02/15/24 (2.5 mg base)/3 mL nebulization of breath or wheezing #180 mL soln minoxidil 2.5 mg tablet 2.5 mg PO QHS 06/30/23 02/15/24 fluoxetine 10 mg tablet 10 mg PO DAILY #30 tabs 10/05/23 02/15/24 tramadol 50 mg tablet 50 mg PO Q6H PRN pain #10 tabs 11/09/23 02/15/24 atorvastatin 40 mg tablet 40 mg PO DAILY 11/14/23 02/15/24 trazodone 50 mg tablet 100 mg PO HS PRN 11/14/23 01/19/24 apixaban 5 mg tablet (Eliquis) 5 mg PO BID #60 tabs 12/19/23 02/15/24 metoprolol succinate 100 mg 100 mg PO DAILY #90 tabs 12/19/23 02/15/24 tablet,extended release 24 hr prazosin 1 mg capsule 1 mg PO QHS PTSD #30 caps 01/04/24 02/15/24 azithromycin 250 mg tablet See Rx Instructions PO .COMPLEX 6 02/15/24 days #6 tabs prednisone 20 mg tablet 60 mg (3 x 20 mg) PO DAILY 5 days 02/15/24 #15 tabs Previous Rx's ?Medication ?Instructions ?Recorded tiotropium bromide 18 mcg capsule 1 cap inhalation DAILY #1 inh 02/16/21 with inhalation device (Spiriva with HandiHaler) albuterol sulfate 2.5 mg/3 mL 2.5 mg (3 mL) inhalation Q6H PRN 01/16/23 (0.083 %) solution for nebulization shortness of breath or wheezing #3 mL albuterol sulfate 90 mcg/actuation 2 puff inhalation QID PRN 01/24/23 aerosol inhaler (Ventolin HFA) shortness of breath or wheezing #8.5 grams ipratropium 0.5 mg-albuterol 3 mg 3 ml inhalation Q4H PRN shortness 06/27/23 (2.5 mg base)/3 mL nebulization of breath or wheezing #180 mL soln fluoxetine 10 mg tablet 10 mg PO DAILY #30 tabs 10/05/23 tramadol 50 mg tablet 50 mg PO Q6H PRN pain #10 tabs 11/09/23 apixaban 5 mg tablet (Eliquis) 5 mg PO BID #60 tabs 12/19/23 metoprolol succinate 100 mg 100 mg PO DAILY #90 tabs 12/19/23 tablet,extended release 24 hr prazosin 1 mg capsule 1 mg PO QHS PTSD #30 caps 01/04/24 azithromycin 250 mg tablet See Rx Instructions PO .COMPLEX 6 02/15/24 days #6 tabs prednisone 20 mg tablet 60 mg (3 x 20 mg) PO DAILY 5 days 02/15/24 #15 tabs Allergies Allergy/AdvReac Type Severity Reaction Status Date / Time cephalexin monohydrate (From Allergy Severe trouble Verified 02/15/24 16:22 Keflex) breathing colchicine Allergy Unknown Verified 02/15/24 16:22 allopurinol AdvReac Intermediate gout Verified 02/15/24 16:22 breakout erythromycin base AdvReac Intermediate gout Verified 02/15/24 16:22 breakout General Stated Complaint: RespSymp AWA: 3 Review of Systems All systems reviewed & are unremarkable except as noted in HPI and below Constitutional Constitutional: Reports as per HPI, Reports fever(s) and Reports headache(s) ENT Ears, Nose, Mouth, and Throat: Reports headache(s) Cardiovascular Cardiovascular: Reports chest pain (Describes as heaviness), Reports dyspnea and Reports dyspnea on exertion Respiratory Respiratory: Reports change in phlegm color, Reports cough, Denies hemoptysis, Reports dyspnea and Reports dyspnea on exertion Gastrointestinal Gastrointestinal: Denies abdominal pain and Reports diarrhea Neurologic Neurologic: Reports headache(s) Exam Narrative Exam Narrative: Constitutional: Alert and oriented x3. Appears older than stated age. Thin body habitus. Appears chronically ill. Head: Normocephalic, no trauma. Eyes: Pupils PERRL, Red reflex noted, EOM's intact. Eyelids symmetrical without lesions, discharge, or swelling. ENT: Bilateral TM's WNL, External ear normal to inspection, no mastoid TTP, swelling, or erythema, Nasal turbinates WNL, no nasal discharge. Normal dentitio n, Posterior pharynx WNL, no exudate. Chest: RRR, Normal S1, S2, distal pulses intact. Resp: Lungs diminished to auscultation bilaterally, no wheezes, rales, or rhonchi. Coughing up thick white phlegm. Abdomen: Soft, non-distended, Normoactive bowel sounds all 4 quads. Musculoskeletal: Normal gait, Moves all 4 extremities without difficulty. Has a intact dialysis shunt noted to her right upper extremity. Old dialysis shunt to left upper extremity. Skin: No suspicious rashes or lesions. Capillary refill less than 2 sec. Neurologic: Cranial nerves II-XII intact. Alert and oriented x 3. Motor: No deficits noted. Sensory: Intact bilaterally all 4 extremities. Hematologic/Lymphatic: No ecchymosis, no lymphadenopathy. Course Vital Signs Vital signs: Vital Signs Temperature 36.4 C 02/15/24 16:11 Pulse 80 02/15/24 16:11 Respiratory Rate 16 02/15/24 16:11 Blood Pressure 88/57 L 02/15/24 16:11 Pulse Oximetry 97 02/15/24 16:11 Temperature 36.4 C 02/15/24 16:11 Temperature Source Oral 02/15/24 16:11 Pulse 80 02/15/24 16:11 Respiratory Rate 16 02/15/24 16:11 Respiratory Effort Normal 02/15/24 16:21 Blood Pressure 88/57 L 02/15/24 16:11 Pulse Oximetry 97 02/15/24 16:11 Oxygen Delivery Method Nasal Cannula 02/15/24 16:11 Oxygen Flow Rate 3 02/15/24 16:11 Pain Level 3 02/15/24 16:11 Medical Decision Making 58-year-old female with past medical history of renal failure on dialysis, COPD, cardiovascular disease, right sided heart failure, hyperlipidemia and hypertension reports to the ER with a chief complaint of increased shortness of breath, chest heaviness and increased need for continuous oxygen today. She normally only wears it at night. She states that the chest pressure is alleviated with oxygen. She also reports fever at home of 101 per her home health nurse, increased productive cough with white phlegm, and headache. She also states 2 days of diarrhea which is light brown and watery. She is slightly hypotensive upon arrival unable to get a blood pressure in the upper arms triage nurse got a blood pressure on her lower left extremity. Workup ordered including CBC CMP, lactate proBNP troponins, chest x-ray and Fluvid swab. Patient is satting 95% on 2 L nasal cannula, differential diagnosis includes amounted to viral illness, pneumonia, COPD exacerbation, electrolyte abnormality due to the diarrhea, dehydration. Patient given a DuoNeb here in the department. She is usually due for 1 around 1800. Reevaluation after nebulizer patient reports that she feels somewhat better. Patient's workup is at her baseline, proBNP is greater than 35,000 which is at patient's baseline, no evidence of pneumonia noted on x-ray. I do suspect that this is an acute on chronic COPD exacerbation. She also reports that she quit smoking 5 days ago which could explain the increased phlegm production. Please see labs and x-ray results below. Will give patient a 5-day stent of 60 mg of prednisone patient is requesting doxycycline or similar states that every time she gets a COPD exacerbation they do also give her doxycycline. Will give azithromycin to treat empirically for possible early pneumonia due to the fever that was reported by her. Discussed home care strict return instructions and follow-up care. At this time pending rapid COVID and flu swab. Expected disposition is discharge. Patient received a DuoNeb here she reports feeling better after the nebulizer. Patient discharged in hemodynamically stable condition. COVID and flu negative. This text was generated using LOANZation system, please disregard any oddities of phrase or misspellings. Medical Records Medical records reviewed: Yes I reviewed the patient's medical records. Imaging Data Radiologic Study: Imaging: X-Ray Radiologist's impression: Imaging protocol: Radiologic exam of the chest. Views: 2 views. COMPARISON: CR XR PORTABLE CHEST AP 01/17/2024 and 12/25/2023 FINDINGS: Lungs: No alveolar infiltrate. Pleural spaces: No pneumothorax. No pleural fluid collection. Heart/Mediastinum: Cardiomegaly. Prior heart valve replacements. Vasculature: Calcific thoracic aorta. Bones/joints: Spinal degenerative changes. Prior median sternotomy. IMPRESSION: No active pulmonary disease. No acute change compared to prior examinations dated 01/17/2024 and 12/25/2023. Thank you for allowing us to participate in the care of your patient. Dictated and Authenticated by: Cody Siegel MD Lab Data Lab results reviewed: Yes I reviewed the patient's lab results. Labs: Laboratory Tests Range/Units 02/15/24 18:44 WBC (4.4-10.8) 10^3/uL 4.82 RBC (3.93-5.22) 10^6/uL 3.04 L Hgb (11.2-15.7) g/dL 9.4 L Hct (36.0-46.0) % 31.4 L MCV (80-95) fL 103 H MCH (27.0-33.0) pg 30.9 MCHC (32.0-36.0) % 29.9 L RDW (11.7-14.6) % 16.6 H Plt Count (130-400) 10^3/uL 138 MPV (8.0-11.0) fL 11.7 H Immature Gran % % 1.0 Neutrophils % % 65.8 Lymphocytes % % 13.9 Monocytes % % 10.8 Eosinophils % % 7.3 Basophils % % 1.2 Nucleated RBC % (0.0-0.3) % 0.0 Absolute Neutrophils (1.2-6.7) 10^3/uL 3.17 Absolute Lymphocytes (1.2-3.4) 10^3/uL 0.67 L Absolute Monocytes (0.1-0.8) 10^3/uL 0.52 Absolute Eosinophils (0.0-0.7) 10^3/uL 0.35 Absolute Basophils (0.0-0.2) 10^3/uL 0.06 VBG Lactate (0.6-1.4) mmol/L 0.6 Sodium (136-145) mmol/L 139 Potassium (3.5-5.1) mmol/L 5.7 H Chloride (98-107) mmol/L 97 L Carbon Dioxide (21.0-32.0) mmol/L 33.7 H Anion Gap (3-11) mmol/L 8.3 BUN (7-18) mg/dL 25 H Creatinine (0.55-1.02) mg/dL 4.9 H* Est GFR (CKD-EPI 2020) (mL/min/1.73m2) 9.58 Glucose (74-106) mg/dL 83 Calcium (8.5-10.1) mg/dL 8.8 Total Bilirubin (0.2-1.0) mg/dL 0.84 AST (15-37) U/L 30 ALT (14-59) U/L 25 Alkaline Phosphatase (46-116) U/L 184 H Troponin I (<or=51) ng/L 32 NT-Pro-B Natriuret Pep (<300) pg/mL > 16907 H Total Protein (6.4-8.2) g/dL 6.9 Albumin (3.4-5.0) g/dL 3.6 Quality:SDOH Health Related Social Needs: No Data to Display PFSH All Active Problems (Updated 02/15/24 @ 20:36 by Lyn Márquez NP) Acute exacerbation of chronic obstructive pulmonary disease (Acute) Acute anterior epistaxis (Acute) Tibial plateau fracture, left (Acute 10/27/23) PTSD (post-traumatic stress disorder) (Acute) Thoracic aortic aneurysm (Acute) 4 cm 09/2023 Anxiety disorder (Acute) Shoulder pain, right (Acute) Vaginal bleeding (Acute) Thrombocytopenia (Chronic) Angioedema (Acute) Vaginal lesion (Acute) ESRD on dialysis (Chronic) On hemodialysis currently using central catheter-nephrology at [facility] receives dialysis at [facility] Depression (Acute 08/28/14) Gallstones (Acute) COPD (chronic obstructive pulmonary disease) (Chronic) Pulmonary at [facility] Central venous catheter in place (Acute ~10/29/19) [facility], right subclavian-dialysis Tricuspid regurgitation (Acute) s/p tricuspid valve replacement 02/2020, bovine Cirrhosis, alcoholic (Acute) POLST (Physician Orders for Life-Sustaining Treatment) (Acute) COLST completed 02/13/2020, DNR/DNI. Hemorrhage of arteriovenous fistula (Acute) Ventral hernia (Acute) Hypertension (Chronic) Aortic valve replaced (Acute) Bovine-with [facility] Personal history of nicotine dependence (Acute) 02/2021 Tobacco abuse (Acute) Lung nodule, solitary (Acute) Hemoptysis (Acute) Open abdominal wall wound (Acute) Fever (Acute) Neck pain (Acute) Right upper quadrant abdominal pain (Acute) Medical History Axillary lymphadenopathy Secondary hyperparathyroidism (of renal origin) Right heart failure CVD (cardiovascular disease) Macular degeneration of left eye (~10/17/19) [facility] Nail dystrophy Cannabis dependence Cyst of ovary (08/20/12) Depression (09/14/12) Recurrent urinary tract infection Upper GI bleed (05/17/14) 05/15/14 [facility] EGD, HH, esophagitis, gastric ulcer and duodenitis Umbilical hernia repaired 1995,1997,2001,2003 Hyperparathyroidism, unspecified (02/09/11) 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[facility] Hyperlipidemia Gastroesophageal reflux disease with esophagitis (02/03/15) Essential hypertension (01/16/13) severe and labile Diverticulitis of large intestine without perforation or abscess with bleeding Bleeding hemorrhoids (01/08/13) rectal bleeding (colonoscopy [facility] 01/01/13 internal hemorrhoids and diverticuli) Surgical History H/O aortic valve replacement History of kidney transplant TRANSPLANT, KIDNEY (~1997) LEFT Abdominal hysterectomy (~2006) s/p hyst, but cervix still present and needs yearly PAP due to transplant Repair of umbilical hernia 1995,1997,2001,2003 Family History Mother Essential hypertension Personal history of malignant neoplasm KIDNEY Heart disease Pulmonary emphysema Father Personal history of malignant neoplasm Pulmonary emphysema Brother Hyperlipidemia Brother Hyperlipidemia Brother No problems noted. Social History Smoking/Tobacco Use Status: Current every day Tobacco Type: cigarettes Smoking risk assessment performed?: Yes Alcohol Intake: former Drug use: Daily Substance use type: marijuana Details: mostly edibles Housing: apartment Current gender identity: female Do you feel safe at home: Yes Do you feel safe in your relationship?: Yes
[2024-02-15 18:49] LABS: Lactate 0.6 mmol/L (0.6-1.4)
[2024-02-15 18:52] LABS: Abs Immature Grans 0.05 10^3/uL (0.0-0.06); Absolute Basophil Count 0.06 10^3/uL (0.0-0.2); Absolute Eosinophil Count 0.35 10^3/uL (0.0-0.7); Absolute Lymphocyte Count 0.67 10^3/uL (1.2-3.4); Absolute Monocyte Count 0.52 10^3/uL (0.1-0.8); Absolute Neutrophil Count 3.17 10^3/uL (1.2-6.7); Basophils % 1.2 %; Eosinophils % 7.3 %; HCT 31.4 % (36.0-46.0); HGB 9.4 g/dL (11.2-15.7); Lymphocytes % 13.9 %; MCH 30.9 pg (27.0-33.0); MCHC 29.9 % (32.0-36.0); MCV 103 fL (80-95); MPV 11.7 fL (8.0-11.0); Monocytes % 10.8 %; Neutrophils % 65.8 %; Platelet Count 138 10^3/uL (130-400); RBC 3.04 10^6/uL (3.93-5.22); RDW 16.6 % (11.7-14.6); RDW-SD 61.8 fL; WBC 4.82 10^3/uL (4.4-10.8)
[2024-02-15 19:20] LABS: ALT 25 U/L (14-59); AST 30 U/L (15-37); Albumin 3.6 g/dL (3.4-5.0); Alkaline Phosphatase 184 U/L (46-116); Anion Gap 8.3 mmol/L (3-11); BUN 25 mg/dL (7-18); Bilirubin, Total 0.84 mg/dL (0.2-1.0); CO2 33.7 mmol/L (21.0-32.0); Calcium 8.8 mg/dL (8.5-10.1); Chloride 97 mmol/L (98-107); Estimated GFR 9.58 (mL/min/1.73m2); Glucose 83 mg/dL (74-106); Potassium 5.7 mmol/L (3.5-5.1); Sodium 139 mmol/L (136-145); Total Protein 6.9 g/dL (6.4-8.2); Troponin I 32 ng/L (<or=51)
[2024-02-15 19:23] LABS: CREATININE 4.9 mg/dL (0.55-1.02)
[2024-02-15 19:43] LABS: NT-proBNP > 35000 pg/mL (<300)
--- NOTE | 2024-02-15 20:09 | DI.VRAD_ITS ---
PROCEDURE INFORMATION: Exam: XR Chest Exam date and time: 02/15/2024 7:15 PM Age: 58 years old Clinical indication: Fever and SOB TECHNIQUE: Imaging protocol: Radiologic exam of the chest. Views: 2 views. COMPARISON: CR XR PORTABLE CHEST AP 01/17/2024 and 12/25/2023 FINDINGS: Lungs: No alveolar infiltrate. Pleural spaces: No pneumothorax. No pleural fluid collection. Heart/Mediastinum: Cardiomegaly. Prior heart valve replacements. Vasculature: Calcific thoracic aorta. Bones/joints: Spinal degenerative changes. Prior median sternotomy. IMPRESSION: No active pulmonary disease. No acute change compared to prior examinations dated 01/17/2024 and 12/25/2023. Dictated and Authenticated by: Cody Siegel MD. Ordering:LUPE Nicholson MD
[2024-02-15 20:11] VITALS: O2SAT 96
[2024-02-15 20:11] LABS: Troponin I 31 ng/L (<or=51)
[2024-02-15] MEDS: Albuterol/Ipratropium 3 ML UPD VIAL UPD (20:11)
[2024-02-15] MEDS: predniSONE 20 MG TAB 60 MG PO (20:40)
[2024-02-15 21:27] VITALS: BP 148/87; PULSE 68; RESP 16; TEMP 37.1; O2SAT 98
== END 2024-02-15 21:27 | disposition home or self-care (01) ==
PROVIDERS: Emergency Provider Registered Nurse Emergency; PCP Family Medicine
DX: J44.1 Chronic obstructive pulmonary disease with (acute) exacerbation (principal); I12.0 Hypertensive chronic kidney disease with stage 5 chronic kidney disease or end stage renal disease; N18.6 End stage renal disease; E78.5 Hyperlipidemia, unspecified; E89.2 Postprocedural hypoparathyroidism; Z95.2 Presence of prosthetic heart valve; Z99.2 Dependence on renal dialysis; Z94.0 Kidney transplant status; Z79.01 Long term (current) use of anticoagulants; Z79.82 Long term (current) use of aspirin; Z87.891 Personal history of nicotine dependence
CPT/HCPCS: 80053; 87426; 87637; 94640; 99285; 71046; 83605; 83880; 84484; 85025; 99284; J7512; J7620

== ENCOUNTER 2024-02-27 17:32 | Emergency (ER) | payer OTHER, SELFPAY ==
[2024-02-27] VITALS (22 sets, daily range): BP systolic 176–205; BP diastolic 80–103; PULSE 57–76; RESP 20; TEMP 36.4; O2SAT 95–99
--- NOTE | 2024-02-27 17:15 | DI.RAD_ITS ---
Exam(s) XR KNEE LT 3V AP,LAT,RUBIA EXAM: XR KNEE LT 3V AP,LAT,RUBIA CLINICAL HISTORY: fall, hit knee, swelling, eval for fx. TECHNIQUE: 2D digital imaging was performed. COMPARISON: CR XR KNEE LT 2V AP,LAT from 11/14/2023 FINDINGS: 3 views There is prominent soft tissue swelling anteriorly but no evidence of patellar fracture. There is a small joint effusion noted. Pole tibial plateau is intact. No joint space narrowing. No fractures nor osteochondral defects evident. No radiopaque foreign bodies. No soft tissue gas. IMPRESSION: Prominent anterior soft tissue swelling. No fractures but there does appear to be a small joint effu kristy. DATA REPOSITORY: RADIATION DOSE DELIVERED:
[2024-02-27] MEDS: ACETAMINOPHEN 1,000 MG/100 ML BAG 400 MG IVPB (17:45)
[2024-02-27 17:52] LABS: Abs Immature Grans 0.05 10^3/uL (0.0-0.06); Absolute Basophil Count 0.04 10^3/uL (0.0-0.2); Absolute Eosinophil Count 0.31 10^3/uL (0.0-0.7); Absolute Lymphocyte Count 0.49 10^3/uL (1.2-3.4); Absolute Monocyte Count 0.65 10^3/uL (0.1-0.8); Absolute Neutrophil Count 3.47 10^3/uL (1.2-6.7); Basophils % 0.8 %; Eosinophils % 6.2 %; HCT 34.6 % (36.0-46.0); HGB 10.6 g/dL (11.2-15.7); Lymphocytes % 9.8 %; MCH 31.2 pg (27.0-33.0); MCHC 30.6 % (32.0-36.0); MCV 102 fL (80-95); MPV 12.9 fL (8.0-11.0); Neutrophils % 69.2 %; Platelet Count 128 10^3/uL (130-400); RDW 16.6 % (11.7-14.6); RDW-SD 60.1 fL; WBC 5.01 10^3/uL (4.4-10.8)
[2024-02-27] MEDS: Normal Saline - Diluent 50 ML VIAL IJ (17:59)
[2024-02-27] MEDS: Omnipaque 350 MG/ML 100 ML BTL IJ (18:00)
[2024-02-27 18:07] LABS: INR 1.3 (0.9-1.1); PTT Activated 28.3 sec (23.6-32.8); Prothrombin Time 12.7 sec (9.1-11.1)
[2024-02-27 18:13] LABS: ALT 39 U/L (14-59); AST 32 U/L (15-37); Albumin 3.5 g/dL (3.4-5.0); Alkaline Phosphatase 256 U/L (46-116); Anion Gap 8.9 mmol/L (3-11); BUN 50 mg/dL (7-18); Bilirubin, Total 0.94 mg/dL (0.2-1.0); CO2 37.1 mmol/L (21.0-32.0); Calcium 7.7 mg/dL (8.5-10.1); Chloride 97 mmol/L (98-107); Glucose 124 mg/dL (74-106); Potassium 4.3 mmol/L (3.5-5.1); Sodium 143 mmol/L (136-145)
[2024-02-27 18:14] LABS: CREATININE 6.6 mg/dL (0.55-1.02)
--- NOTE | 2024-02-27 18:32 | DI.CT_ITS ---
Exam(s) CT CHEST/ABD/PEL W EXAM: CT CHEST/ABD/PEL W CLINICAL HISTORY: fall, hit abd, eval spleen. TECHNIQUE: Imaging Protocol: Axial computed tomography images with coronal and sagittal reformatted images were created and reviewed CONTRAST MATERIAL: Intravenous: Omnipaque 350 Contrast volume:100 ml Oral: None COMPARISON: CT CT CHEST PE CTA from 12/08/2023 FINDINGS: CHEST: LUNGS: There is no evidence of lung contusion, confluent infiltrates, nor pleural effusions and there is no pneumothorax. No ominous pulmonary nodules.. Pulmonary arterial trunk is enlarged as is the diameter of the main pulmonary arteries indicating lexy ment of pulmonary artery hypertension. No intraluminal filling defects evident in the main pulmonary arteries. MEDIASTINUM: None and there are sternotomy wires with nonunion of the sternotomy. No acute sternal f racture evident. No evidence of mediastinal hematoma. No hilar nor mediastinal adenopathy. CARDIAC: Sternotomy wires. Cardiomegaly. No pericardial effusion. Prosthetic aortic and tricuspid valves.Diameter of the ascending thoracic aorta is prominent measuring 4 cm. There is no evidence of dissection. Diameter of the aortic arch and descending thoracic aorta are normal. Coronary artery calcification is noted. OSSEOUS: No significant osseous lesions.No fractures.. ABDOMEN: There is mild perihepatic ascites. There is also moderate symmetrical anasarca. LIVER: Liver is enlarged and somewhat cirrhotic in appearance. There are no discrete focal hepatic l esions evident GALLBLADDER/BILIARY: There are numerous gallstones within the nondistended gallbladder lumen. There are no gallstones evident within the CBD. CBD diameter is upper normal. CBD is not dilated. PANCREAS: No evidence of pancreatic mass nor dilatation of the pancreatic duct. SPLEEN: There is mild splenomegaly. No splenic laceration or splenic lesions. Splenic and portal ve ins are patent. ADRENALS: There are no significant adrenal masses. KIDNEYS: Both kidneys are severely atrophic/barely visible.. No cysts nor solid renal masses. The s everely attenuated cortex of both kidneys exhibit some calcification. ABDOMINAL AORTA: The abdominal aorta is heavily calcified. Mild aneurysmal dilatation inferiorly wit h maximum diameter only 2.5 cm. Common iliac arteries are also heavily calcified but not enlarged. LYMPH NODES: There is no retroperitoneal nor paraaortic adenopathy. ABDOMINAL WALL: No evidence of significant anterior abdominal wall nor inguinal hernia. GI: There is no evidence of bowel obstruction. PELVIS: LYMPH NODES: There is no intrapelvic nor inguinal adenopathy. GI: No evidence of appendicitis.No evidence of sigmoid diverticulitis. URINARY BLADDER: Collapsed REPRODUCTIVE: Uterus is atrophic or surgically absent. There are no abnormal adnexal masses. There is a small amount of ascitic fluid in the and aspect of the pelvis OSSEOUS: No significant osseous lesions. No fractures. IMPRESSION: 1. No aczute intrathoracic findings. There are sternotomy wires and cardiomegaly and prosthetic aort ic and tricuspid valves. No pericardial effusion. No aortic dissection. Pulmonary artery trunks ar e in large indicating element of pulmonary arterial hypertension. 2. Sternotomy wires. Nonunion sternotomy. No mediastinal hematoma. No acute fractures. 3. Hepatic cirrhosis and mild splenomegaly and mild ascites as well as symmetrical moderate anasarca. 4. Severely atrophic bilateral kidneys. The urinary bladder is collapsed most probably due to lack o f urine production, given the appearance of the kidneys.. 5. Cholelithiasis. The multiple gallstones. No obvious evidence of acute cholecystitis nor dilatat ion of the biliary tree. Report called by myself to ER physician 02/27/2024 6:50 p.m. RADIATION DOSE DELIVERED: 470.06mGy.cm Total DLP DATA REPOSITORY: All CT scans at this facility are submitted to the National Radiology Data Registry (NRDR) Dose Index Registry (DIR) with the [employer] (A[employer]). RADIATION OPTIMIZATION: All CT scans at this facility use at least one of these dose optimization te chniques: automated exposure control; mA and/or kV adjustment per patient size (includes targeted exa ms where dose is matched to clinical indication); or iterative reconstruction.
--- NOTE | 2024-02-27 18:32 | DI.CT_ITS ---
Exam(s) CT HEAD CERV SPINE FACIAL WO EXAM: CT HEAD CERV SPINE FACIAL WO CLINICAL HISTORY: fall, hit front head. TECHNIQUE: Imaging Protocol: Axial computed tomography images with coronal and sagittal reformatted images were created and reviewed COMPARISON: CT CT HEAD CERVICAL SPINE WO from 10/27/2023 FINDINGS: CT BRAIN: There are no skull fractures nor fluid in the visualized paranasal sinuses. There is no evidence of intracranial hemorrhage, mass effect, or shift of midline structures. There are no extra-axial fluid collections. The ventricles are not enlarged or shifted and there is no blo od within the ventricular system nor within the basal cisterns. There is a moderate amount of bilateral periventricular hypodensity consistent with chronic small ves kimberly disease. CT MAXILLOFACIAL BONES: There is no evidence of facial fractures nor fluid in the visualized paranasal sinuses. there is no evidence of orbital blowout fracture. No evidence of nasal bone fracture. Orbits appear unremarkable. No evidence of orbital blowout fracture. Orbital globes and retro conal compartments appear unremarkable as do the optic nerves. 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 Indeed, the condyle appears to be absent on this side. This finding is unchanged from prior CT scan of . It appears to be present on the opposite-right side. There is no evidence of mandible fracture. CT CERVICAL SPINE: There is no evidence of acute fracture nor new listhesis. No significant prevertebral soft tissue sw elling. There is mild degenerative anterolisthesis of C2 upon C3 again noted. Also again noted is a dvanced chronic disc space narrowing at C3-4, C4-5, and C5-6 levels, unchanged. Also some facet arth ropathy at these levels but no facet malalignment. C1 arch and odontoid process appear intact. No facet malalignment evident. No significant osseous lesions evident. Incidentally noted is a surgical clip on the right side of the esophagus posterior to the right thyro id lobe, of questionable significance. IMPRESSION: No acute intracranial findings on this noninfused CT scan of the brain. 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 No evidence of cervical spine fracture, malalignment, nor acute compromise of the cervical spinal can al. Chronic degenerative disc disease and facet arthropathy again noted. Report called by myself to ER on 02/27/2024 at 7:05 p.m. RADIATION DOSE DELIVERED: 1,539.97mGy.cm Total DLP DATA REPOSITORY: All CT scans at this facility are submitted to the National Radiology Data Registry (NRDR) Dose Index Registry (DIR) with the [employer] ([employer]). RADIATION OPTIMIZATION: All CT scans at this facility use at least one of these dose optimization te chniques: automated exposure control; mA and/or kV adjustment per patient size (includes targeted exa ms where dose is matched to clinical indication); or iterative reconstruction.
--- NOTE | 2024-02-27 19:41 | ED.GENADUL_ITS ---
Discharge Plan Disposition Patient Disposition: Home Condition: Good Discharge Details Clinical Impression: Contusion of knee, left, Fall, Contusion of head Primary Care Provider: Chano Neves ED Provider: Bhanu Mayorga Home Meds and New Rx's Prescriptions: No Action tiotropium bromide [Spiriva with HandiHaler] 18 mcg capsule, w/inhalation device 1 cap inhalation DAILY Qty: 1 0RF Rx Instructions: puncture 1 cap using device; one dose = 2 inhalations from [facility] trazodone 50 mg tablet 100 mg PO HS PRN Rx Instructions: 1 TAB HS fluoxetine 10 mg tablet 10 mg PO DAILY Qty: 30 1RF tramadol 50 mg tablet 50 mg PO Q6H PRN (Reason: pain) Qty: 10 0RF Eliquis 5 mg tablet 5 mg PO BID Qty: 60 2RF metoprolol succinate 100 mg tablet extended release 24 hr 100 mg PO DAILY Qty: 90 3RF Rx Instructions: per pt report aspirin 81 MG tablet,chewable 81 mg PO DAILY epinephrine 0.3 mg/0.3 mL auto-injector 0.3 mg IM ONCE PRN Rx Instructions: as a single dose; may repeat once albuterol sulfate [Ventolin HFA] 90 mcg/actuation HFA aerosol inhaler 2 puff inhalation QID PRN (Reason: shortness of breath or wheezing) Qty: 8.5 5RF ipratropium-albuterol 0.5 mg-3 mg(2.5 mg base)/3 mL solution for nebulization 3 ml inhalation Q4H PRN (Reason: shortness of breath or wheezing) Qty: 180 3RF minoxidil 2.5 mg tablet 2.5 mg PO QHS atorvastatin 40 mg tablet 40 mg PO DAILY prazosin 1 mg capsule 1 mg PO QHS Qty: 30 2RF omeprazole 40 mg Capsule,Delayed Release(Dr/Ec) 40 mg PO BID albuterol sulfate 2.5 mg /3 mL (0.083 %) solution for nebulization 2.5 mg inhalation Q6H PRN (Reason: shortness of breath or wheezing) Qty: 3 0RF Rx Instructions: [facility] (D[facility]) Aerochamber MV Spacer MISCELLANEOUS Discharge Instructions Instructions: Acute Pain, Adult Additional Instructions: At this time your CT imaging and x-rays do not show any evidence of fracture. However you have experience notable contusions over your knee head and flank. Please take Tylenol as needed for pain. Please use ice and wrap the knee regularly to help keep the swelling down. If you notice any worsening of your symptoms, or any new symptoms such as vomiting, diarrhea, fever, chills, shortness of breath, chest pain, numbness, weakness, or fainting , please return immediately to the emergency department for reevaluation. Please follow up with your primary care provider as soon as possible for reassessment and reevaluation. As always, it was a pleasure participating in your medical care today. Referrals: Chano Neves MD [Primary Care Provider] - [facility] General Date/Time Provider Initiated Documentation: 02/27/24 18:57 . HPI Narrative: This is a 58-year-old female with a past medical history of renal failure on dialysis, thrombocytopenia, reactive airway disease, GERD, high cholesterol, hypertension, aortic valve replacement, kidney transplant in the past, thoracic aortic aneurysm, previous left-sided tibial plateau fracture, who presents today for evaluation after fall. Patient was walking outside when she slipped on the ice, fell forward and slammed her head into a car, she also hit her left knee on the ground fairly hard, and hit her abdomen on the left-hand side against the car and ground as well. She has pain in these areas, as well as some mild neck pain. She denies any vomiting or diarrhea. She denies any loss of consciousness. She denies any numbness tingling or weakness. No other complaints at this time. Related Data Home Medications ?Medication ?Instructions ?Recorded ?Confirmed aspirin 81 mg chewable tablet 81 mg PO DAILY 05/24/16 02/27/24 inhalational spacing device 01/26/19 02/27/24 (Aerochamber MV spacer) omeprazole 40 mg capsule,delayed 40 mg PO BID 03/18/19 02/27/24 release tiotropium bromide 18 mcg capsule 1 cap inhalation DAILY #1 inh 02/16/21 with inhalation device (Spiriva with HandiHaler) epinephrine 0.3 mg/0.3 mL 0.3 mg IM ONCE PRN 01/04/23 02/27/24 injection, auto-injector albuterol sulfate 2.5 mg/3 mL 2.5 mg (3 mL) inhalation Q6H PRN 01/16/23 02/27/24 (0.083 %) solution for nebulization shortness of breath or wheezing #3 mL albuterol sulfate 90 mcg/actuation 2 puff inhalation QID PRN 01/24/23 02/27/24 aerosol inhaler (Ventolin HFA) shortness of breath or wheezing #8.5 grams ipratropium 0.5 mg-albuterol 3 mg 3 ml inhalation Q4H PRN shortness 06/27/23 02/27/24 (2.5 mg base)/3 mL nebulization of breath or wheezing #180 mL soln minoxidil 2.5 mg tablet 2.5 mg PO QHS 06/30/23 02/27/24 fluoxetine 10 mg tablet 10 mg PO DAILY #30 tabs 10/05/23 02/27/24 tramadol 50 mg tablet 50 mg PO Q6H PRN pain #10 tabs 11/09/23 02/27/24 atorvastatin 40 mg tablet 40 mg PO DAILY 11/14/23 02/27/24 trazodone 50 mg tablet 100 mg PO HS PRN 11/14/23 02/16/24 apixaban 5 mg tablet (Eliquis) 5 mg PO BID #60 tabs 12/19/23 02/27/24 metoprolol succinate 100 mg 100 mg PO DAILY #90 tabs 12/19/23 02/27/24 tablet,extended release 24 hr prazosin 1 mg capsule 1 mg PO QHS PTSD #30 caps 01/04/24 02/27/24 Previous Rx's ?Medication ?Instructions ?Recorded tiotropium bromide 18 mcg capsule 1 cap inhalation DAILY #1 inh 02/16/21 with inhalation device (Spiriva with HandiHaler) albuterol sulfate 2.5 mg/3 mL 2.5 mg (3 mL) inhalation Q6H PRN 01/16/23 (0.083 %) solution for nebulization shortness of breath or wheezing #3 mL albuterol sulfate 90 mcg/actuation 2 puff inhalation QID PRN 01/24/23 aerosol inhaler (Ventolin HFA) shortness of breath or wheezing #8.5 grams ipratropium 0.5 mg-albuterol 3 mg 3 ml inhalation Q4H PRN shortness 06/27/23 (2.5 mg base)/3 mL nebulization of breath or wheezing #180 mL soln fluoxetine 10 mg tablet 10 mg PO DAILY #30 tabs 10/05/23 tramadol 50 mg tablet 50 mg PO Q6H PRN pain #10 tabs 11/09/23 apixaban 5 mg tablet (Eliquis) 5 mg PO BID #60 tabs 12/19/23 metoprolol succinate 100 mg 100 mg PO DAILY #90 tabs 12/19/23 tablet,extended release 24 hr prazosin 1 mg capsule 1 mg PO QHS PTSD #30 caps 01/04/24 Allergies Allergy/AdvReac Type Severity Reaction Status Date / Time cephalexin monohydrate (From Allergy Severe trouble Verified 02/15/24 16:22 Keflex) breathing colchicine Allergy Unknown Verified 02/15/24 16:22 allopurinol AdvReac Intermediate gout Verified 02/15/24 16:22 breakout erythromycin base AdvReac Intermediate gout Verified 02/15/24 16:22 breakout General Stated Complaint: Fall/Non TraumaCriteria AWA: 3 Exam Narrative Exam Narrative: 1.Const: Well-nourished, Well-developed, appearing stated age 2.Eyes: PERRL, no conjunctival injection, and symmetrical lids. 3.ENT: Atraumatic external nose and ears. Moist MM. Neck: Symmetric, trachea midline, No thyromegaly. There is no evidence of raccoon eyes, hardwick sign, CSF rhinorrhea, mastoid tenderness, cranial crepitus, hemotympanum, exophthalmos, or hyphema. Patient demonstrates intact dentition with no signs of tooth avulsion or fracture, no signs of jaw deformity, no evidence of a LeFort's fracture, with an intact palate, nose and orbital region. There is no evidence of a nasal septal hematoma. No proptosis. Jaw closes symmetrically. Airway is clear. Minimal contusion noted on the frontal forehead. 4.CVS: +S1/S2, Peripheral pulses 2+ and equal in all extremities. Brisk capillary refill in all extremities. 5.RESP: Unlabored respiratory effort. Clear to auscultation bilaterally. No wheezes rales or rhonchi. No rib pain or tenderness 6.GI: Soft, Nondistended, No hepatosplenomegaly. No guarding or rebound. Mild left-sided flank tenderness. No right-sided tenderness. 7.MSK: Swelling is present in the left knee, swelling over the patella. Tenderness there as well. Minimal tenderness over the tibial plateau, mild tenderness over the lateral and medial aspect of the knee. No significant fibular or tibial tenderness otherwise. No significant femur tenderness. Right lower extremity is nontender with no signs of trauma. Upper extremities show no evidence of tenderness or trauma. No shoulder pain. No rib pain. Minimal midline cervical spine tenderness around C4-5 and 6. No midline thoracic or lumbar spine tenderness. 8.Skin: Warm, Dry. No rashes or lesions. 9.Neuro: technologist development II-XII grossly intact. Sensation grossly intact, no focal neurologic deficits. 10.Psych: (AAO) x3. Appropriate mood and affect Course Vital Signs Vital signs: Vital Signs Temperature 36.4 C L 02/27/24 17:14 Pulse 76 02/27/24 17:14 Respiratory Rate 20 02/27/24 17:14 Pulse Oximetry 96 02/27/24 17:14 Temperature 36.4 C L 02/27/24 17:14 Pulse 76 02/27/24 17:14 Respiratory Rate 20 02/27/24 17:14 Blood Pressure Position Supine 02/27/24 17:14 Pulse Oximetry 96 02/27/24 17:14 Oxygen Delivery Method Room Air 02/27/24 17:14 Oxygen Flow Rate 0 02/27/24 17:14 Pain Level 8 02/27/24 17:14 Lab/Test Results Lab/Test Results: Laboratory Tests Range/Units 02/27/24 17:40 WBC (4.4-10.8) 10^3/uL 5.01 RBC (3.93-5.22) 10^6/uL 3.40 L Hgb (11.2-15.7) g/dL 10.6 L Hct (36.0-46.0) % 34.6 L MCV (80-95) fL 102 H MCH (27.0-33.0) pg 31.2 MCHC (32.0-36.0) % 30.6 L RDW (11.7-14.6) % 16.6 H Plt Count (130-400) 10^3/uL 128 L MPV (8.0-11.0) fL 12.9 H Immature Gran % % 1.0 Neutrophils % % 69.2 Lymphocytes % % 9.8 Monocytes % % 13.0 Eosinophils % % 6.2 Basophils % % 0.8 Nucleated RBC % (0.0-0.3) % 0.0 Absolute Neutrophils (1.2-6.7) 10^3/uL 3.47 Absolute Lymphocytes (1.2-3.4) 10^3/uL 0.49 L Absolute Monocytes (0.1-0.8) 10^3/uL 0.65 Absolute Eosinophils (0.0-0.7) 10^3/uL 0.31 Absolute Basophils (0.0-0.2) 10^3/uL 0.04 PT (9.1-11.1) sec 12.7 H INR (0.9-1.1) 1.3 H APTT (23.6-32.8) sec 28.3 Sodium (136-145) mmol/L 143 Potassium (3.5-5.1) mmol/L 4.3 Chloride (98-107) mmol/L 97 L Carbon Dioxide (21.0-32.0) mmol/L 37.1 H Anion Gap (3-11) mmol/L 8.9 BUN (7-18) mg/dL 50 H Creatinine (0.55-1.02) mg/dL 6.6 H* Est GFR (CKD-EPI 2020) (mL/min/1.73m2) 6.70 Glucose (74-106) mg/dL 124 H Calcium (8.5-10.1) mg/dL 7.7 L Total Bilirubin (0.2-1.0) mg/dL 0.94 AST (15-37) U/L 32 ALT (14-59) U/L 39 Alkaline Phosphatase (46-116) U/L 256 H Total Protein (6.4-8.2) g/dL 7.0 Albumin (3.4-5.0) g/dL 3.5 Medical Decision Making This is a 58-year-old female with a past medical history of renal failure on dialysis, thrombocytopenia, reactive airway disease, GERD, high cholesterol, hypertension, aortic valve replacement, kidney transplant in the past, thoracic aortic aneurysm, previous left-sided tibial plateau fracture, who presents today for evaluation after fall. Patient was walking outside when she slipped on the ice, fell forward and slammed her head into a car, she also hit her left knee on the ground fairly hard, and hit her abdomen on the left-hand side against the car and ground as well. She has pain in these areas, as well as some mild neck pain. She denies any vomiting or diarrhea. She denies any loss of consciousness. She denies any numbness tingling or weakness. No other complaints at this time. Exam demonstrates a swollen and tender left knee, mild midline cervical spine tenderness, mild left-sided flank pain. Differential includes splenic injury, rib contusions, C-spine injury, knee fracture, exacerbation of previous tibial plateau fracture, sprain, contusion and concussion. Will evaluate for concerning etiologies with a CT scan of the head neck chest abdomen pelvis and x-ray of the left knee. Will monitor closely and reassess. [address] imaging has returned, no evidence of acute process. Patient's laboratory workup shows a stable hemoglobin at 10.6, platelets are 128, electrolytes stable, creatinine near baseline. Calcium slightly low at 7.7. Alk phos elevated. On reassessment patient feels much better. Her knee was wrapped with an Ed wrap. She still does have some mild achiness. We will give her a mild dose of morphine as needed for pain. Patient otherwise notably hemodynamically stable. No signs of significant altered mental status, we did get the patient up and ambulated her throughout the ED. She did this well without signs of significant limping or pain. Symptoms inconsistent with a new tibial plateau fracture. Patient stable for discharge. Discussed red flags for which to return. Recommend continued Tylenol at home, ice, and rest. I have extensively reviewed the treatment plan and discharge instructions with the patient. I have addressed all patient concerns at this time. The patient was made aware of what symptoms to monitor for that would warrant a return to the emergency department. Discussed the plan with the patient, they demonstrate verbal understanding and agreement with our assessment and plan at this time. The documentation in this chart was dictated using [employer] dictation software. Please excuse any dictation errors. FINDINGS: 3 views There is prominent soft tissue swelling anteriorly but no evidence of patellar fracture. There is a small joint effusion noted. Pole tibial plateau is intact. No joint space narrowing. No fractures nor osteochondral defects evident. No radiopaque foreign bodies. No soft tissue gas. IMPRESSION: Prominent anterior soft tissue swelling. No fractures but there does appear to be a small joint effusion. FINDINGS: CHEST: LUNGS: There is no evidence of lung contusion, confluent infiltrates, nor pleural effusions and there is no pneumothorax. No ominous pulmonary nodules.. Pulmonary arterial trunk is enlarged as is the diameter of the main pulmonary arteries indicating element of pulmonary artery hypertension. No intraluminal filling defects evident in the main pulmonary arteries. MEDIASTINUM: None and there are sternotomy wires with nonunion of the sternotomy . No acute sternal fracture evident. No evidence of mediastinal hematoma. No hilar nor mediastinal adenopathy. CARDIAC: Sternotomy wires. Cardiomegaly. No pericardial effusion. Prosthetic aortic and tricuspid valves.Diameter of the ascending thoracic aorta is prominent measuring 4 cm. There is no evidence of dissection. Diameter of the aortic arch and descending thoracic aorta are normal. Coronary artery calcification is noted. OSSEOUS: No significant osseous lesions.No fractures.. ABDOMEN: There is mild perihepatic ascites. There is also moderate symmetrical anasarca. LIVER: Liver is enlarged and somewhat cirrhotic in appearance. There are no discrete focal hepatic lesions evident GALLBLADDER/BILIARY: There are numerous gallstones within the nondistended gallbladder lumen. There are no gallstones evident within the CBD. CBD diameter is upper normal. CBD is not dilated. PANCREAS: No evidence of pancreatic mass nor dilatation of the pancreatic duct. SPLEEN: There is mild splenomegaly. No splenic laceration or splenic lesions. Splenic and portal veins are patent. ADRENALS: There are no significant adrenal masses. KIDNEYS: Both kidneys are severely atrophic/barely visible.. No cysts nor solid renal masses. The severely attenuated cortex of both kidneys exhibit some calcification. ABDOMINAL AORTA: The abdominal aorta is heavily calcified. Mild aneurysmal dilatation inferiorly with maximum diameter only 2.5 cm. Common iliac arteries are also heavily calcified but not enlarged. LYMPH NODES: There is no retroperitoneal nor paraaortic adenopathy. ABDOMINAL WALL: No evidence of significant anterior abdominal wall nor inguinal hernia. GI: There is no evidence of bowel obstruction. PELVIS: LYMPH NODES: There is no intrapelvic nor inguinal adenopathy. GI: No evidence of appendicitis.No evidence of sigmoid diverticulitis. URINARY BLADDER: Collapsed REPRODUCTIVE: Uterus is atrophic or surgically absent. There are no abnormal ad nexal masses. There is a small amount of ascitic fluid in the and aspect of the pelvis OSSEOUS: No significant osseous lesions. No fractures. IMPRESSION: 1. No aczute intrathoracic findings. There are sternotomy wires and cardiomegaly and prosthetic aortic and tricuspid valves. No pericardial effusion. No aortic dissection. Pulmonary artery trunks are in large indicating element of pulmonary arterial hypertension. 2. Sternotomy wires. Nonunion sternotomy. No mediastinal hematoma. No acute fractures. 3. Hepatic cirrhosis and mild splenomegaly and mild ascites as well as symmetric al moderate anasarca. 4. Severely atrophic bilateral kidneys. The urinary bladder is collapsed most probably due to lack of urine production, given the appearance of the kidneys.. 5. Cholelithiasis. The multiple gallstones. No obvious evidence of acute cholecystitis nor dilatation of the biliary tree. FINDINGS: CT BRAIN: There are no skull fractures nor fluid in the visualized paranasal sinuses. There is no evidence of intracranial hemorrhage, mass effect, or shift of midline structures. There are no extra-axial fluid collections. The ventricles are not enlarged or shifted and there is no blood within the ventricular system nor within the basal cisterns. There is a moderate amount of bilateral periventricular hypodensity consistent with chronic small vessel disease. CT MAXILLOFACIAL BONES: There is no evidence of facial fractures nor fluid in the visualized paranasal sinuses. there is no evidence of orbital blowout fracture. No evidence of nasal bone fracture. Orbits appear unremarkable. No evidence of orbital blowout fracture. Orbital globes and retro conal compartments appear unremarkable as do the optic nerves. 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 Indeed, the condyle appears to be absent on this side. This finding is unchanged from prior CT scan of 10/27/2023. It appears to be present on the op posite-right side. There is no evidence of mandible fracture. CT CERVICAL SPINE: There is no evidence of acute fracture nor new listhesis. No significant prevertebral soft tissue swelling. There is mild degenerative anterolisthesis of C2 upon C3 again noted. Also again noted is advanced chronic disc space narrowing at C3-4, C4-5, and C5-6 levels, unchanged. Also some facet arthropathy at these levels but no facet malalignment. C1 arch and odontoid process appear intact. No facet malalignment evident. No significant osseous lesions evident. Incidentally noted is a surgical clip on the right side of the esophagus posterior to the right thyroid lobe, of questionable significance. IMPRESSION: No acute intracranial findings on this noninfused CT scan of the brain. 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 No evidence of cervical spine fracture, malalignment, nor acute compromise of the cervical spinal canal. Chronic degenerative disc disease and facet arthropathy again noted. Quality:[facility] Health Related Social Needs: No Data to Display PFSH All Active Problems (Updated 02/27/24 @ 19:52 by Bhanu Mayorga DO) Contusion of head (Acute) Fall (Acute) Contusion of knee, left (Acute) Acute exacerbation of chronic obstructive pulmonary disease (Acute) Tibial plateau fracture, left (Acute 10/27/23) PTSD (post-traumatic stress disorder) (Acute) Thoracic aortic aneurysm (Acute) 4 cm 09/2023 Anxiety disorder (Acute) Shoulder pain, right (Acute) Vaginal bleeding (Acute) Thrombocytopenia (Chronic) Angioedema (Acute) Vaginal lesion (Acute) ESRD on dialysis (Chronic) On hemodialysis currently using central catheter-nephrology at [facility] receives dialysis at [facility] Depression (Acute 08/28/14) Gallstones (Acute) COPD (chronic obstructive pulmonary disease) (Chronic) Pulmonary at [facility] Central venous catheter in place (Acute ~10/29/19) [facility], right subclavian-dialysis Tricuspid regurgitation (Acute) s/p tricuspid valve replacement 02/2020, bovine Cirrhosis, alcoholic (Acute) POLST (Physician Orders for Life-Sustaining Treatment) (Acute) COLST completed 02/13/2020, DNR/DNI. Hemorrhage of arteriovenous fistula (Acute) Ventral hernia (Acute) Hypertension (Chronic) Aortic valve replaced (Acute) Bovine-with [facility] Personal history of nicotine dependence (Acute) 02/2021 Tobacco abuse (Acute) Lung nodule, solitary (Acute) Hemoptysis (Acute) Open abdominal wall wound (Acute) Fever (Acute) Neck pain (Acute) Right upper quadrant abdominal pain (Acute) Medical History Axillary lymphadenopathy Secondary hyperparathyroidism (of renal origin) Right heart failure CVD (cardiovascular disease) Macular degeneration of left eye (~10/17/19) [facility] Nail dystrophy Cannabis dependence Cyst of ovary (08/20/12) Depression (09/14/12) Recurrent urinary tract infection Upper GI bleed (05/17/14) 05/15/14 [facility] EGD, HH, esophagitis, gastric ulcer and duodenitis Umbilical hernia repaired 1995,1997,2001,2003 Hyperparathyroidism, unspecified (02/09/11) 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[facility] Hyperlipidemia Gastroesophageal reflux disease with esophagitis (02/03/15) Essential hypertension (01/16/13) severe and labile Diverticulitis of large intestine without perforation or abscess with bleeding Bleeding hemorrhoids (01/08/13) rectal bleeding (colonoscopy [facility] 01/01/13 internal hemorrhoids and diverticuli) Surgical History H/O aortic valve replacement History of kidney transplant TRANSPLANT, KIDNEY (~1997) LEFT Abdominal hysterectomy (~2006) s/p hyst, but cervix still present and needs yearly PAP due to transplant Repair of umbilical hernia 1995,1997,2001,2003 Family History Mother Essential hypertension Personal history of malignant neoplasm KIDNEY Heart disease Pulmonary emphysema Father Personal history of malignant neoplasm Pulmonary emphysema Brother Hyperlipidemia Brother Hyperlipidemia Brother No problems noted. Social History Smoking/Tobacco Use Status: Current every day Tobacco Type: cigarettes Smoking risk assessment performed?: Yes Alcohol Intake: former Drug use: Daily Substance use type: marijuana Details: mostly edibles Housing: apartment Current gender identity: female Do you feel safe at home: Yes Do you feel safe in your relationship?: Yes
[2024-02-27] MEDS: MORPHine 4 MG/ML SYR IVP (20:04)
== END 2024-02-27 20:07 | disposition home or self-care (01) ==
PROVIDERS: Emergency Provider Student in an Organized Health Care Education/Training Program; PCP Family Medicine
DX: S80.02XA Contusion of left knee, initial encounter (principal); S00.83XA Contusion of other part of head, initial encounter; I12.0 Hypertensive chronic kidney disease with stage 5 chronic kidney disease or end stage renal disease; N18.6 End stage renal disease; E78.5 Hyperlipidemia, unspecified; Z95.2 Presence of prosthetic heart valve; Z99.2 Dependence on renal dialysis; Z94.0 Kidney transplant status; Z79.01 Long term (current) use of anticoagulants; Z79.82 Long term (current) use of aspirin; W01.198A Fall on same level from slipping, tripping and stumbling with subsequent striking against other object, initial encounter; Y93.01 Activity, walking, marching and hiking; Y92.89 Other specified places as the place of occurrence of the external cause
CPT/HCPCS: 73562; 74177; 80053; 96365; 96375; 99285; 70450; 70486; 71260; 72125; 85025; 85610; 85730; 99284; J0131; J2270; J3490

== ENCOUNTER 2024-03-19 01:02 | Outpatient (CLI) | payer OTHER, SELFPAY ==
--- NOTE | 2024-03-19 | DI.RAD_ITS ---
Exam(s) XR KNEE LT 4V AP,LAT,RUBIA,PAT EXAM: XR KNEE LT 4V AP,LAT,RUBIA,PAT CLINICAL HISTORY: Lt knee pain and swelling s/p fall, M25.562; [id number]. TECHNIQUE: 2D digital imaging was performed of the left knee. Four images were obtained. Merchant, AP, lateral and PA tunnel views were obtained. COMPARISON: CT CT LOWER EXTREMITY LT WO from 10/27/2023 CR XR KNEE LT 2V AP,LAT from 11/14/2023 CR XR KNEE LT 3V AP,LAT,RUBIA from 02/27/2024 FINDINGS: BONES: No acute or healing fracture is identified. No bony destructive lesion is seen. The patient has a history of a lateral tibial plateau fracture in October 2023. JOINTS: The knee is normally aligned. There may be a small joint effusion. No loose body. SOFT TISSUE: There is persistent soft tissue swelling anterior to the patella. No soft tissue gas is seen. Vascular calcifications are present. IMPRESSION: 1. No evidence of an acute or healing fracture or dislocation. 2. Persistent soft tissue swelling anterior to the patella. If there is concern for internal derange ment, an MRI should be considered for further evaluation. DATA REPOSITORY: RADIATION DOSE DELIVERED:
== END 2024-03-19 01:22 ==
PROVIDERS: PCP Family Medicine; Visit Provider Physician Assistant
DX: R22.42 Localized swelling, mass and lump, left lower limb (principal)
CPT/HCPCS: 73564

== ENCOUNTER 2024-03-22 15:15 | Inpatient (IN) | payer OTHER, SELFPAY ==
[2024-03-22] VITALS (94 sets, daily range): BP systolic 121–204; BP diastolic 21–117; PULSE 66–121; RESP 9–27; TEMP 36.9–37.2; O2SAT 2–100
--- NOTE | 2024-03-22 15:15 | RT.EKG_ITS ---
APPROVED REPORT Exam: Resting ECG Reason for Exam: Dyspnea Patient Location: E HR:93 bpm ECG Measurements Heart Rate 93 AXIS VT 120 P -82 QRSd 156 QRS 76 QT 425 T 26 QTc 530 Conclusion Sinus 93 RBBB no stemi
--- NOTE | 2024-03-22 15:30 | DI.RAD_ITS ---
Exam(s) XR CHEST 2V PA LATERAL EXAM: XR CHEST 2V PA LATERAL CLINICAL HISTORY: cough, SOB. TECHNIQUE: 2D digital imaging was performed. COMPARISON: CR XR PORTABLE CHEST AP from 12/25/2023 CR,XR XR CHEST 2V PA LATERAL from 02/15/[address] CHEST/ABD/PEL W from 02/27/2024 FINDINGS: 2 views: Sternotomy wires as well as to prosthetic cardiac valves are again noted. These are probably aortic and tricuspid valves. There are no obvious infiltrates nor airspace pulmonary edema. No Lluvia B lines. Slight blunting o f left costophrenic angle noted either related to pleural thickening or small amount of pleural fluid . IMPRESSION: Cardiomegaly. Sternotomy. Prosthetic aortic and tricuspid valves again evident.No confluent infiltr ates. Possible small left pleural effusion. No airspace pulmonary edema. DATA REPOSITORY: RADIATION DOSE DELIVERED:
[2024-03-22 15:47] LABS: Abs Immature Grans 0.02 10^3/uL (0.0-0.06); Absolute Basophil Count 0.05 10^3/uL (0.0-0.2); Absolute Eosinophil Count 0.21 10^3/uL (0.0-0.7); Absolute Monocyte Count 0.33 10^3/uL (0.1-0.8); Absolute Neutrophil Count 1.95 10^3/uL (1.2-6.7); Basophils % 1.6 %; Eosinophils % 6.6 %; HCT 25.2 % (36.0-46.0); HGB 7.8 g/dL (11.2-15.7); Immature Grans % 0.6 %; MCH 31.1 pg (27.0-33.0); MCV 100 fL (80-95); MPV 12.9 fL (8.0-11.0); Monocytes % 10.4 %; Neutrophils % 61.8 %; Platelet Count 101 10^3/uL (130-400); RBC 2.51 10^6/uL (3.93-5.22); RDW 16.7 % (11.7-14.6); RDW-SD 60.7 fL; WBC 3.16 10^3/uL (4.4-10.8)
[2024-03-22 15:58] LABS: Anisocytosis 1+; Diff Comment RBC Morph Reviewed
[2024-03-22 16:01] LABS: BE (Venous) 14 mmol/L (-2-3); HCO3 (Venous) 38 mmol/L (23-28); Lactate 0.9 mmol/L (0.6-1.4); O2 Sat (Venous) 76 %; TCO2 (Venous) 36 mmol/L (24-29); pCO2 (Venous) 54 mmHg (41-51); pH (Venous) 7.45 (7.31-7.41); pO2 (Venous) 42 mmHg
[2024-03-22] MEDS: Albuterol/Ipratropium 3 ML UPD VIAL 9 ML UPD (16:06)
[2024-03-22] MEDS: methylPREDNISolone SUCC 125 MG VIAL IVP (16:07)
[2024-03-22 16:17] LABS: ALT 30 U/L (14-59); AST 70 U/L (15-37); Albumin 3.5 g/dL (3.4-5.0); Alkaline Phosphatase 138 U/L (46-116); Anion Gap 4.2 mmol/L (3-11); BUN 29 mg/dL (7-18); Bilirubin, Total 0.64 mg/dL (0.2-1.0); CO2 38.8 mmol/L (21.0-32.0); CREATININE 2.8 mg/dL (0.55-1.02); Calcium 8.4 mg/dL (8.5-10.1); Chloride 98 mmol/L (98-107); Estimated GFR 18.75 (mL/min/1.73m2); Glucose 79 mg/dL (74-106); Lipase 43 U/L (<78); Magnesium 1.9 mg/dL (1.8-2.4); Potassium 4.5 mmol/L (3.5-5.1); Sodium 141 mmol/L (136-145); Total Protein 7.1 g/dL (6.4-8.2); Troponin I 40 ng/L (<or=51)
[2024-03-22 16:37] LABS: COVID-19 PCR Negative (Negative); Influenza A PCR Negative (Negative); Influenza B PCR Negative (Negative); RSV PCR Negative (Negative); Source Nasopharynx
[2024-03-22 17:09] LABS: Troponin I 51 ng/L (<or=51)
--- NOTE | 2024-03-22 18:00 | ED.GENADUL_ITS ---
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 Alcohol Intake: former Drug use: Daily Substance use type: marijuana Details: mostly edibles Housing: apartment Current gender identity: female Do you feel safe at home: Yes Do you feel safe in your relationship?: Yes
--- NOTE | 2024-03-22 18:15 | RT.EKG_ITS ---
APPROVED REPORT Exam: Resting ECG Reason for Exam: baseline/screening Patient Location: E HR:117 bpm ECG Measurements Heart Rate 117 AXIS MN 110 P 19 QRSd 148 QRS 79 QT 382 T 5 QTc 534 Conclusion Sinus tachycardia 117 RBBB no stemi
[2024-03-22] MEDS: diphenhydrAMINE 25 MG CAP PO (18:41)
[2024-03-22] MEDS: Acetaminophen 325 MG TAB 650 MG PO (18:41)
[2024-03-22 19:14] LABS: INR 1.2 (0.9-1.1); PTT Activated 24.5 sec (20.6-30.2); Prothrombin Time 11.6 sec (9.1-11.1)
[2024-03-22 19:21] LABS: Troponin I 61 ng/L (<or=51)
[2024-03-22] MEDS: Pantoprazole 40 MG VIAL IVP (20:50)
[2024-03-23] VITALS (39 sets, daily range): BP systolic 107–185; BP diastolic 39–85; PULSE 61–94; RESP 16–22; TEMP 36.2–37.6; O2SAT 86–100
--- NOTE | 2024-03-23 00:24 | ED.PROG_ITS ---
Date of service: 03/23/24 Time of Service: 00:36 Medical Decision Making Patient was signed out to me by Bhanu Hamilton. Please refer to his extensive history and physical, assessment and plan. At time of signout we are waiting to reengage with the hospitalist service. Dr. Anthony is called back, [facility] not have any beds available at this time but may tomorrow. Patient has been placed on the waiting list urgently for [facility] with hopeful bed transfer tomorrow. Patient remains hemodynamically stable here. She has received a unit of blood, heart rate blood pressure and oxygenation are excellent. Electrolytes normal. Patient has had a nearly 3 point drop in her hemoglobin but remains hemodynamically stable. Patient does need nonemergent endoscopy. However she would not be an ideal candidate for prolonged outpatient course. After having a notable discussion with the hospitalist service weighing the risks and benefits of continued ED observation versus inpatient admission, Dr. Anthony feels inclined that an inpatient observation would be better for the patient at this time. I do feel that this is very reasonable, especially with the expectant transition/transfer over the next 24 to 36 hours. Patient agrees with this. Patient feels quite uncomfortable here in the ED with a bed, and this will also help resolve that component. Patient will be admitted to the hospitalist service for continued management and observation until transfer can be established. Patient has received her dialysis today, and does not have any indication for emergent dialysis need currently. I have extensively reviewed the treatment plan with the patient. I have addressed all patient concerns at this time. I have also discussed the plan with the admitting physician and they agree with the current assessment and plan and have agreed to assume responsibility for the patient. All parties demonstrate verbal understanding and agreement with our assessment and plan at this time. The documentation in this chart was dictated using [employer] dictation software. Please excuse any dictation errors. Quality:SDOH Health Related Social Needs: Health related social needs feeling lonely/isolated (Z 60.8) Discharge Plan Disposition Patient Disposition: Admit to [facility] Condition: Stable Discharge Details Chief Complaint: SOB Clinical Impression: Anemia, End stage renal disease, COPD exacerbation, GI bleeding, Non-ST elevation VT (NSTEMI) Primary Care Provider: Chano Neves ED Provider: Bhanu Mayorga Home Meds and New Rx's Prescriptions: No Action tiotropium bromide [Spiriva with HandiHaler] 18 mcg capsule, w/inhalation d evice 1 cap inhalation DAILY Qty: 1 0RF Rx Instructions: puncture 1 cap using device; one dose = 2 inhalations from [facility] trazodone 50 mg tablet 100 mg PO HS PRN Rx Instructions: 1 TAB HS Eliquis 5 mg tablet 5 mg PO BID Qty: 60 2RF metoprolol succinate 100 mg tablet extended release 24 hr 100 mg PO DAILY Qty: 90 3RF Rx Instructions: per pt report aspirin 81 MG tablet,chewable 81 mg PO DAILY epinephrine 0.3 mg/0.3 mL auto-injector 0.3 mg IM ONCE PRN Rx Instructions: as a single dose; may repeat once albuterol sulfate [Ventolin HFA] 90 mcg/actuation HFA aerosol inhaler 2 puff inhalation QID PRN (Reason: shortness of breath or wheezing) Qty: 8.5 5RF ipratropium-albuterol 0.5 mg-3 mg(2.5 mg base)/3 mL solution for nebulization 3 ml inhalation Q4H PRN (Reason: shortness of breath or wheezing) Qty: 180 3RF minoxidil 2.5 mg tablet 2.5 mg PO QHS atorvastatin 40 mg tablet 40 mg PO DAILY prazosin 1 mg capsule 1 mg PO QHS Qty: 30 2RF Breztri Aerosphere 160-9-4.8 mcg/actuation HFA aerosol inhaler 2 inh inhalation BID mupirocin 2 % ointment 1 applic topical TID mometasone-formoterol 200-5 mcg/actuation HFA aerosol inhaler 2 puff inhalation BID benzonatate 100 mg capsule 200 mg PO TID PRN tramadol 50 mg tablet 50 mg PO Q6H PRN (Reason: pain) Qty: 15 0RF omeprazole 40 mg Capsule,Delayed Release(Dr/Ec) 40 mg PO BID albuterol sulfate 2.5 mg /3 mL (0.083 %) solution for nebulization 2.5 mg inhalation Q6H PRN (Reason: shortness of breath or wheezing) Qty: 3 0RF Rx Instructions: [facility] (D[facility]) Aerochamber MV Spacer MISCELLANEOUS
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
--- NOTE | 2024-03-23 02:08 | W.PC.ACHO ---
Registration Status: Primary Language: Preferred Language: ED Information & Data Chief Complaint SOB 03/22/24 18:01 Triage Note Patient here with severe sob 03/22/24 15:18 . Had dialysis with no improvement of respiratory status. 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 Other specified housing or economic circumstances Sleep apnea History of attempted suicide Axillary lymphadenopathy Secondary hyperparathyroidism (of renal origin) Right heart failure CVD (cardiovascular disease) Macular degeneration of left eye (~10/17/19) Nail dystrophy Cannabis dependence Cyst of ovary (08/20/12) Depression (09/14/12) Recurrent urinary tract infection Upper GI bleed (05/17/14) Umbilical hernia Hyperparathyroidism, unspecified (02/09/11) Hyperlipidemia Gastroesophageal reflux disease with esophagitis (02/03/15) Essential hypertension (01/16/13) Diverticulitis of large intestine without perforation or abscess with bleeding Bleeding hemorrhoids (01/08/13) (Last Reviewed 03/23/24 @ 00:41 by Willard Holt) H/O aortic valve replacement History of kidney transplant TRANSPLANT, KIDNEY (~1997) Abdominal hysterectomy (~2006) Repair of umbilical hernia Most Recent Vital Signs Temperature 37.2 C 03/22/24 20:39 Temperature Source Oral 03/22/24 15:18 Pulse 79 03/23/24 01:32 Pulse 82 03/23/24 01:32 Respiratory Rate 19 03/23/24 01:32 Respiratory Effort Short of Breath, Labored 03/22/24 15:52 Respiratory Depth Normal 03/22/24 15:52 Respiratory Pattern Tachypnea 03/22/24 15:52 Blood Pressure 143/53 H 03/23/24 01:32 Blood Pressure Mean 88 03/23/24 01:32 Blood Pressure Position Sitting 03/22/24 15:18 Pulse Oximetry 100 03/23/24 01:32 Oxygen Delivery Method Nasal Cannula 03/22/24 19:17 Oxygen Flow Rate 2 03/22/24 19:17 Pain Level 5 03/22/24 18:41 Allergies cephalexin monohydrate (From Keflex) Allergy (Severe, Verified 03/22/24 15:29) trouble breathing oxycodone Allergy (Unknown, Unverified 03/22/24 15:29) Unknown colchicine Allergy (Verified 03/22/24 15:29) Unknown allopurinol Adverse Reaction (Intermediate, Verified 03/22/24 15:29) gout breakout erythromycin base Adverse Reaction (Intermediate, Verified 03/22/24 15:29) gout breakout Precautions Isolation PUI 03/22/24 15:51 Active Medications Generic Name Dose Route Start Last Admin Trade Name Lucretia PRN Reason Stop Dose Admin Acetaminophen 650 mg 03/22/24 19:00 03/22/24 18:41 Acetaminophen 325 Mg Tab PO 650 mg TODAY CHRISTINA Administration Diphenhydramine HCl 0 mg 03/22/24 18:30 03/22/24 18:41 Diphenhydramine 25 Mg Cap PO 25 mg TODAY CHRISTINA Administration IV IV Catheter Type [Left Hand] Saline Lock IV Catheter Gauge [Left Hand] 20 Diet Orders Category Date Time Status Renal [DIET] Nutrition 03/23/24 Breakfast Active Diagnostics 03/23/24 03/23/24 03/23/24 Range/Units 05:35 03:26 01:26 WBC Pending (4.4-10.8) 10^3/uL RBC Pending (3.93-5.22) 10^6/uL Hgb Pending (11.2-15.7) g/dL Hct Pending (36.0-46.0) % MCV Pending (80-95) fL MCH Pending (27.0-33.0) pg MCHC Pending (32.0-36.0) % RDW Pending (11.7-14.6) % Plt Count Pending (130-400) 10^3/uL MPV Pending (8.0-11.0) fL Immature Gran % % Neutrophils % % Lymphocytes % % Monocytes % % Eosinophils % % Basophils % % Nucleated RBC % (0.0-0.3) % Absolute Neutrophils (1.2-6.7) 10^3/uL Absolute Lymphocytes (1.2-3.4) 10^3/uL Absolute Monocytes (0.1-0.8) 10^3/uL Absolute Eosinophils (0.0-0.7) 10^3/uL Absolute Basophils (0.0-0.2) 10^3/uL RBC Morphology Anisocytosis PT (9.1-11.1) sec INR (0.9-1.1) APTT (20.6-30.2) sec VBG pH (7.31-7.41) VBG pCO2 (41-51) mmHg VBG pO2 mmHg VBG HCO3 (23-28) mmol/L VBG Total CO2 (24-29) mmol/L VBG O2 Saturation % VBG Base Excess (-2-3) mmol/L VBG Lactate (0.6-1.4) mmol/L Sodium Pending (136-145) mmol/L Potassium Pending (3.5-5.1) mmol/L Chloride Pending (98-107) mmol/L Carbon Dioxide Pending (21.0-32.0) mmol/L Anion Gap Pending (3-11) mmol/L BUN Pending (7-18) mg/dL Creatinine Pending (0.55-1.02) mg/dL Est GFR (CKD-EPI 2020) Pending (mL/min/1.73m2) Glucose Pending (74-106) mg/dL Calcium Pending (8.5-10.1) mg/dL Magnesium (1.8-2.4) mg/dL Total Bilirubin (0.2-1.0) mg/dL AST (15-37) U/L ALT (14-59) U/L Alkaline Phosphatase (46-116) U/L Troponin I Pending Cancelled Cancelled (<or=51) ng/L Total Protein (6.4-8.2) g/dL Albumin (3.4-5.0) g/dL Lipase (<78) U/L COVID-19 Source SARS-CoV-2 (PCR) (Negative) Influenza Type A (PCR) (Negative) Influenza Type B (PCR) (Negative) RSV (PCR) (Negative) ABO/Rh Antibody Screen Crossmatch 03/22/24 03/22/24 03/22/24 Range/Units 18:52 16:46 16:16 WBC (4.4-10.8) 10^3/uL RBC (3.93-5.22) 10^6/uL Hgb (11.2-15.7) g/dL Hct (36.0-46.0) % MCV (80-95) fL MCH (27.0-33.0) pg MCHC (32.0-36.0) % RDW (11.7-14.6) % Plt Count (130-400) 10^3/uL MPV (8.0-11.0) fL Immature Gran % % Neutrophils % % Lymphocytes % % Monocytes % % Eosinophils % % Basophils % % Nucleated RBC % (0.0-0.3) % Absolute Neutrophils (1.2-6.7) 10^3/uL Absolute Lymphocytes (1.2-3.4) 10^3/uL Absolute Monocytes (0.1-0.8) 10^3/uL Absolute Eosinophils (0.0-0.7) 10^3/uL Absolute Basophils (0.0-0.2) 10^3/uL RBC Morphology Anisocytosis PT 11.6 H (9.1-11.1) sec INR 1.2 H (0.9-1.1) APTT 24.5 (20.6-30.2) sec VBG pH (7.31-7.41) VBG pCO2 (41-51) mmHg VBG pO2 mmHg VBG HCO3 (23-28) mmol/L VBG Total CO2 (24-29) mmol/L VBG O2 Saturation % VBG Base Excess (-2-3) mmol/L VBG Lactate (0.6-1.4) mmol/L Sodium (136-145) mmol/L Potassium (3.5-5.1) mmol/L Chloride (98-107) mmol/L Carbon Dioxide (21.0-32.0) mmol/L Anion Gap (3-11) mmol/L BUN (7-18) mg/dL Creatinine (0.55-1.02) mg/dL Est GFR (CKD-EPI 2020) (mL/min/1.73m2) Glucose (74-106) mg/dL Calcium (8.5-10.1) mg/dL Magnesium (1.8-2.4) mg/dL Total Bilirubin (0.2-1.0) mg/dL AST (15-37) U/L ALT (14-59) U/L Alkaline Phosphatase (46-116) U/L Troponin I 61 H* 51 (<or=51) ng/L Total Protein (6.4-8.2) g/dL Albumin (3.4-5.0) g/dL Lipase (<78) U/L COVID-19 Source SARS-CoV-2 (PCR) (Negative) Influenza Type A (PCR) (Negative) Influenza Type B (PCR) (Negative) RSV (PCR) (Negative) ABO/Rh A Positive Antibody Screen NEGATIVE Crossmatch See Detail 03/22/24 03/22/24 Range/Units 15:48 15:42 WBC 3.16 L (4.4-10.8) 10^3/uL RBC 2.51 L (3.93-5.22) 10^6/uL Hgb 7.8 L (11.2-15.7) g/dL Hct 25.2 L (36.0-46.0) % MCV 100 H (80-95) fL MCH 31.1 (27.0-33.0) pg MCHC 31.0 L (32.0-36.0) % RDW 16.7 H (11.7-14.6) % Plt Count 101 L (130-400) 10^3/uL MPV 12.9 H (8.0-11.0) fL Immature Gran % 0.6 % Neutrophils % 61.8 % Lymphocytes % 19.0 % Monocytes % 10.4 % Eosinophils % 6.6 % Basophils % 1.6 % Nucleated RBC % 0.0 (0.0-0.3) % Absolute Neutrophils 1.95 (1.2-6.7) 10^3/uL Absolute Lymphocytes 0.60 L (1.2-3.4) 10^3/uL Absolute Monocytes 0.33 (0.1-0.8) 10^3/uL Absolute Eosinophils 0.21 (0.0-0.7) 10^3/uL Absolute Basophils 0.05 (0.0-0.2) 10^3/uL RBC Morphology See Below Anisocytosis 1+ PT (9.1-11.1) sec INR (0.9-1.1) APTT (20.6-30.2) sec VBG pH 7.45 H (7.31-7.41) VBG pCO2 54 H (41-51) mmHg VBG pO2 42 mmHg VBG HCO3 38 H (23-28) mmol/L VBG Total CO2 36 H (24-29) mmol/L VBG O2 Saturation 76 % VBG Base Excess 14 H (-2-3) mmol/L VBG Lactate 0.9 (0.6-1.4) mmol/L Sodium 141 (136-145) mmol/L Potassium 4.5 (3.5-5.1) mmol/L Chloride 98 (98-107) mmol/L Carbon Dioxide 38.8 H (21.0-32.0) mmol/L Anion Gap 4.2 (3-11) mmol/L BUN 29 H (7-18) mg/dL Creatinine 2.8 H (0.55-1.02) mg/dL Est GFR (CKD-EPI 2020) 18.75 (mL/min/1.73m2) Glucose 79 (74-106) mg/dL Calcium 8.4 L (8.5-10.1) mg/dL Magnesium 1.9 (1.8-2.4) mg/dL Total Bilirubin 0.64 (0.2-1.0) mg/dL AST 70 H (15-37) U/L ALT 30 (14-59) U/L Alkaline Phosphatase 138 H (46-116) U/L Troponin I 40 (<or=51) ng/L Total Protein 7.1 (6.4-8.2) g/dL Albumin 3.5 (3.4-5.0) g/dL Lipase 43 (<78) U/L COVID-19 Source Nasopharynx SARS-CoV-2 (PCR) Negative (Negative) Influenza Type A (PCR) Negative (Negative) Influenza Type B (PCR) Negative (Negative) RSV (PCR) Negative (Negative) ABO/Rh Antibody Screen Crossmatch Intake and Output - 24 Hour Total 03/22/24 15:15 thru 03/22/24 20:42 Intake Total 300 Balance 300 Weight 51 kg Intake: Blood Product 300 Rbc Leuko Reduced Unit 300 [id number] Falls Risk Assessment History of Falls No History 03/22/24 15:51 Contributing Factors Confusion,Unstable, 03/22/24 15:51 Impairments,Incontinence, Medications Ambulatory Aids Uses ambulatory device + 03/22/24 15:51 Tubes/Lines With any additional score 03/22/24 15:51 Gait Evaluation No gait disturbance 03/22/24 15:51 Cognition No cognitive impairment 03/22/24 15:51 Fall Total Score 65 03/22/24 15:51 Level of Risk High Risk 03/22/24 15:51 Problems (Last Reviewed 03/23/24 @ 00:41 by Willard Holt) Discharge planning issues (Acute) DVT prophylaxis (Acute) Non-ST elevation [place] (NSTEMI) (Acute) GI bleeding (Chronic) COPD exacerbation (Acute) End stage renal disease (Acute) Anemia (Chronic) ESRD on dialysis (Chronic) COPD (chronic obstructive pulmonary disease) (Chronic) Cirrhosis, alcoholic (Acute) Hypertension (Chronic) Tobacco abuse (Acute) v v v v v v v v v Sending and/or Receiving Nurses: Please use comment section below to note any information pertinent to the patient hand-off not included above. Information / Comments: Report received from: Anibal ROSENBERG at [id number]
[2024-03-23 06:25] LABS: HCT 22.5 % (36.0-46.0); MCHC 31.1 % (32.0-36.0); MCV 97 fL (80-95); MPV 12.7 fL (8.0-11.0); Platelet Count 82 10^3/uL (130-400); RBC 2.33 10^6/uL (3.93-5.22); RDW 20.9 % (11.7-14.6); RDW-SD 73.5 fL
[2024-03-23 06:40] LABS: Anion Gap 5.1 mmol/L (3-11); BUN 64 mg/dL (7-18); CO2 34.9 mmol/L (21.0-32.0); Chloride 99 mmol/L (98-107); Estimated GFR 9.82 (mL/min/1.73m2); Glucose 129 mg/dL (74-106); Sodium 139 mmol/L (136-145)
[2024-03-23 06:48] LABS: Potassium 5.6 mmol/L (3.5-5.1)
[2024-03-23 06:50] LABS: CREATININE 4.8 mg/dL (0.55-1.02); Troponin I 63 ng/L (<or=51)
[2024-03-23] MEDS: Tiotropium Bromide-Respimat 10 PUFF INH 2 PUFF IH (08:03)
[2024-03-23] MEDS: Budesonide/Formoterol 160/4.5 6 GM 60 PUFF INH IH ×2 (08:03→19:49)
[2024-03-23] MEDS: Pantoprazole 40 MG VIAL IVP ×2 (08:08→20:30)
[2024-03-23] MEDS: Atorvastatin 40 MG TAB PO (08:08)
[2024-03-23] MEDS: Metoprolol CR 100 MG TABCR PO (08:08)
[2024-03-23] MEDS: Acetaminophen 325 MG TAB 650 MG PO ×2 (08:12→20:27)
[2024-03-23] MEDS: diphenhydrAMINE 25 MG CAP PO (08:13)
[2024-03-23] MEDS: Normal Saline Flush 10 ML SYR IVP ×3 (08:22→20:55)
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
[2024-03-23 13:12] LABS: HCT 25.1 % (36.0-46.0)
[2024-03-23 13:32] LABS: Troponin I 74 ng/L (<or=51)
--- NOTE | 2024-03-23 15:30 | RT.EKG_ITS ---
APPROVED REPORT Exam: Resting ECG Reason for Exam: hyperkalemia Patient Location: I HR:77 bpm ECG Measurements Heart Rate 77 AXIS VA [id number] P [id number] QRSd 157 QRS 58 QT 453 T -9 QTc 513 Conclusion Accelerated junctional rhythm...absent P waves, accele'd V-rate Right bundle branch block...QRSd>120, terminal axis(90,270) Baseline wander in lead(s) V5
[2024-03-23] MEDS: Sodium Zirconium Cyclosilicate 10 GM PKT PO ×2 (15:55→18:21)
[2024-03-23 16:11] LABS: Potassium 5.7 mmol/L (3.5-5.1)
[2024-03-23] MEDS: Dextrose 50%-Water 25 GM/50 ML SYR IVP (18:10)
[2024-03-23 18:22] LABS: HCT 23.3 % (36.0-46.0); HGB 7.3 g/dL (11.2-15.7); MCH 29.8 pg (27.0-33.0); MCHC 31.3 % (32.0-36.0); MCV 95 fL (80-95); MPV 12.4 fL (8.0-11.0); RBC 2.45 10^6/uL (3.93-5.22); RDW-SD 72.7 fL; WBC 4.64 10^3/uL (4.4-10.8)
--- NOTE | 2024-03-23 18:22 | W.PM.PROGNOT ---
Date of Service Date of service: 03/23/24 Time of Service: 18:22 Assessment and Plan Assessment and plan (1) GI bleeding: Status: Chronic Assessment and plan: No further melena but stool guaiac positive Continue to hold aspirin and Eliquis Status post 2 PRBC H&H 8 and 25 CBC at 1800 showed downtrend at 7.3 and 23 -Will give 1 additional PRBC and recheck an H&H at 2359 -Will premedicate with acetaminophen and diphenhydramine Known cirrhosis with signs of portal HTN on recent CT imaging. Will transition from Toprol XL to carvedilol twice a day Still pending transfer to [facility] status post surgical consult at [facility] with recommendation for endoscopy at tertiary care. Will most likely not be done today status post Discussion with Dr. Alicia hospitalist and Dr. Pike assistant professor of biology at [facility] regarding hyperkalemia and uptrend in systolic blood pressure combined with initial drop in hemoglobin status post first PRBC. See point on hyperkalemia [facility] declined again today. Consult with cardiology at [facility]: -Apixaban and ASA were held on admission in the setting of past AVR and TVR and history of A-flutter/fib with past cardioversion in acute GIB. As per patient's report the valves were bioprosthetic, replacement completed over a year ago at least, and was only on ASA initially. Apixaban was added later and most likely for atrial- flutter/fib. As per consultation with [facility] cardiology PHYSICIAN SURGEON Pratik once bleeding has stabilized X 48 hours, DOAC and ASA could be restarted without bridging with heparin prior to resumption unless there is high concerns for GIB. Decision on DOAC resumption to be completed as per evaluation of risk of bleeding VS risk of ischemic event and this could be done outpatient. Continue IV pantoprazole twice daily. Continue to monitor BMs (2) Anemia: Status: Chronic Assessment and plan: As above (3) Non-ST elevation [place] (NSTEMI): Status: Acute Assessment and plan: Troponin 60-74, repeat at 1800 was 72 and appears to be drawn downtrending Patient was initially symptomatic and is most likely experiencing a type II non-STEMI or demand ischemia. No report of chest pain and improved shortness of breath (4) Hyperkalemia: Status: Inactive Assessment and plan: K at 5.6 then 5.7 s/p lokelma, D50 and insulin K is now 4.9 The patient is an uric and furosemide was considered but not used Calcium gluconate recommended by Dr. Pike assistant professor of biology at [facility] despite myocardial site not appearing unstable on EKG; cardioprotective for HD patient (5) Hypertension: Status: Chronic Assessment and plan: As per previous note h/o labile BP. Uptrend noted in blood pressure with SBP 183 without signs and symptoms of hypoperfusion at this time. Will continue to monitor (6) Tobacco abuse: Status: Acute Assessment and plan: Continue nicotine replacement therapy l (7) Cirrhosis, alcoholic: Status: Acute Assessment and plan: Known cirrhosis with recent CT noted cirrhotic liver and large spleen and mild ascites, suggesting portal hypertension, which is c/w her thrombocytopenia. The patient might have to consider s banding as noted as previously mentioned Transition to carvedilol from metoprolol succinate Monitor clinically (8) ESRD on dialysis: Status: Chronic Assessment and plan: As previously mentioned by admitting physician, we typically don't admit ESRD patients but she just had dialysis, is at her dry weight, HD not due until Monday. Patient is anuric Transfer still pending status post discussion with hospitalist and assistant professor of biology at [facility] no update in transfer acuity at this time BMP in a.m. (9) COPD (chronic obstructive pulmonary disease): Status: Chronic Assessment and plan: Resolution of shortness of breath status post blood transfusion and no exacerbation at this time, will continue home inhalers (10) DVT prophylaxis: Status: Acute Assessment and plan: Ongoing TEDS/scds due to active bleed (11) Discharge planning issues: Status: Acute Assessment and plan: Continue care on medical floor pending transfer to [facility], see ED notes Patient was to maintain full CODE STATUS as she wants CPR, intubation and states that she has multiple grandchildren Might benefit from palliative care consultation if the patient is still at [facility] on Monday Discussed with Dr. Hinds Subjective Subjective Patient reports: no new complaints, feels better, tolerating liquids well and bowel movement; denies voiding w/o difficulty (anuric), blood in stool (guaiac positive), nausea, vomiting, shortness of breath (At rest ) or fever Exam Narrative Exam Narrative: HENMT: Facial structures with normal appearance Neuro:alert and oriented to self, person, place time and situation. No neurological focal deficit, PERRLA Chest:Chest is symmetrical and normal appearance Resp: Clear lungs Cardio: Tele sinus HR 80 regular rhythm, +murmur, thrill and bruit + to RUE fistula GI: Abdomen is not distended, soft and non tender, bowel sounds are present : Negative Costovertebral angle tenderness Back/spine/Pelvis: No back tenderness, normal alignment Integumentary: scattered bruises to arms Extremities: generalized weakness Psych: RASS 0-1, congruent mood and normal affect. Objective Last Vital Signs Temp 36.5 C 03/23/24 15:46 Pulse 70 03/23/24 15:46 Resp 16 03/23/24 15:46 BP 183/65 H 03/23/24 16:17 Pulse Ox 92 03/23/24 16:17 Laboratory Results - last 24 hr 03/22/24 03/22/24 03/23/24 16:16 18:52 01:26 WBC RBC Hgb Hct MCV MCH MCHC RDW Plt Count MPV PT 11.6 H INR 1.2 H APTT 24.5 Sodium Potassium Chloride Carbon Dioxide Anion Gap BUN Creatinine Est GFR (CKD-EPI 2020) Glucose Calcium Troponin I 61 H* Cancelled ABO/Rh A Positive Antibody Screen NEGATIVE Crossmatch See Detail 03/23/24 03/23/24 03/23/24 03:26 06:11 13:02 WBC 2.20 L RBC 2.33 L Hgb 7.0 L* 8.0 L Hct 22.5 L 25.1 L MCV 97 H MCH 30.0 MCHC 31.1 L RDW 20.9 H Plt Count 82 L MPV 12.7 H PT INR APTT Sodium 139 Potassium 5.6 H D Chloride 99 Carbon Dioxide 34.9 H Anion Gap 5.1 BUN 64 H Creatinine 4.8 H* D Est GFR (CKD-EPI 2020) 9.82 Glucose 129 H Calcium 8.0 L Troponin I Cancelled 63 H* 74 H* ABO/Rh Antibody Screen Crossmatch 03/23/24 16:00 WBC RBC Hgb Hct MCV MCH MCHC RDW Plt Count MPV PT INR APTT Sodium Potassium 5.7 H Chloride Carbon Dioxide Anion Gap BUN Creatinine Est GFR (CKD-EPI 2020) Glucose Calcium Troponin I ABO/Rh Antibody Screen Crossmatch Time Spent with Patient Time Spent with Patient: >50 minutes Time was spent: preparing to see the patient(eg.review tests), obtaining and/or reviewing separately otained hiistory, ordering medications,tests, procedures, referring, communicating with other health healthcare applications analyst, indepentently interpreting results, counseling the patient and care coordination
[2024-03-23] MEDS: Insulin REGULAR-Human 100 UNITS/ML UNIT 10 UNITS IV (18:27)
[2024-03-23 18:29] LABS: Anion Gap 10.5 mmol/L (3-11); CO2 28.5 mmol/L (21.0-32.0); Calcium 7.7 mg/dL (8.5-10.1); Chloride 94 mmol/L (98-107); Estimated GFR 7.66 (mL/min/1.73m2); Glucose 163 mg/dL (74-106); Potassium 4.9 mmol/L (3.5-5.1); Sodium 133 mmol/L (136-145)
--- NOTE | 2024-03-23 18:31 | NUR.NOTE ---
Nursing Note: Call placed to audio production manager pharmacist with [facility] to clarify insulin order. Insulin verified by [facility], but med will not scan, box or vial. PHA recommended hard documentation. Primary nurse notified.
[2024-03-23 18:35] LABS: BUN 84 mg/dL (7-18); CREATININE 5.9 mg/dL (0.55-1.02)
[2024-03-23 18:41] LABS: Platelet Count 92 10^3/uL (130-400); RDW 20.8 % (11.7-14.6)
[2024-03-23 18:47] LABS: Troponin I 72 ng/L (<or=51)
[2024-03-23] MEDS: CALCIUM GLUCONATE in NaCl 1 GM/50 ML BAG IVPB (18:59)
[2024-03-23] MEDS: diphenhydrAMINE 50 MG/ML VIAL 25 MG IVP (20:28)
[2024-03-23] MEDS: Minoxidil 2.5 MG TAB PO (20:31)
[2024-03-23] MEDS: Prazosin 1 MG CAP PO (21:04)
[2024-03-23] MEDS: traMADol 50 MG TAB PO (21:38)
[2024-03-23] MEDS: Benzonatate 100 MG CAP 200 MG PO (21:38)
[2024-03-24] VITALS (15 sets, daily range): BP systolic 101–139; BP diastolic 49–75; PULSE 59–72; RESP 9–22; TEMP 36.6–37.5; O2SAT 90–100
[2024-03-24] MEDS: Normal Saline Flush 10 ML SYR IVP ×4 (00:10→12:27)
[2024-03-24 02:16] LABS: HCT 23.7 % (36.0-46.0); HGB 7.7 g/dL (11.2-15.7); MCH 30.2 pg (27.0-33.0); MCHC 32.5 % (32.0-36.0); MCV 93 fL (80-95); MPV 11.8 fL (8.0-11.0); RBC 2.55 10^6/uL (3.93-5.22); RDW 19.3 % (11.7-14.6); RDW-SD 65.1 fL
[2024-03-24 02:24] LABS: Platelet Count 80 10^3/uL (130-400)
[2024-03-24] MEDS: Sodium Zirconium Cyclosilicate 10 GM PKT PO (06:41)
[2024-03-24] MEDS: Tiotropium Bromide-Respimat 10 PUFF INH 2 PUFF IH (07:29)
[2024-03-24] MEDS: Budesonide/Formoterol 160/4.5 6 GM 60 PUFF INH IH (07:29)
[2024-03-24 07:37] LABS: Anion Gap 4.5 mmol/L (3-11); CO2 34.5 mmol/L (21.0-32.0); Calcium 7.4 mg/dL (8.5-10.1); Chloride 93 mmol/L (98-107); Glucose 86 mg/dL (74-106); Potassium 5.7 mmol/L (3.5-5.1); Sodium 132 mmol/L (136-145)
--- NOTE | 2024-03-24 07:39 | RESPIRATORY ---
Pt's baseline is 2L at night only, room air during the day. DME: [facility]. Pt has E tank from [facility] in her room with 1000psi for discharge.
[2024-03-24 07:40] LABS: BUN 92 mg/dL (7-18)
[2024-03-24 07:41] LABS: CREATININE 6.6 mg/dL (0.55-1.02)
[2024-03-24] MEDS: Carvedilol 12.5 MG TAB PO (08:21)
[2024-03-24] MEDS: Pantoprazole 40 MG VIAL IVP (08:21)
[2024-03-24] MEDS: Atorvastatin 40 MG TAB PO (08:21)
[2024-03-24] MEDS: Metoprolol CR 100 MG TABCR PO (08:22)
[2024-03-24] MEDS: traMADol 50 MG TAB PO (09:31)
[2024-03-24] MEDS: Albuterol 2.5 MG/3 ML INH SOLN VIAL IH (10:53)
--- NOTE | 2024-03-24 11:05 | PGE_ITS ---
Date of Service Date of service: 03/24/24 Time of Service: 11:05 Assessment and Plan Assessment and plan (1) GI bleeding: Status: Chronic Assessment and plan: No further melena but stool guaiac positive Continue to hold aspirin and Eliquis Status post 2 PRBC H&H 8 and 25 CBC at 1800 showed downtrend at 7.3 and 23 -Will give 1 additional PRBC and recheck an H&H at 2359 -Will premedicate with acetaminophen and diphenhydramine Known cirrhosis with signs of portal HTN on recent CT imaging. Will transition from Toprol XL to carvedilol twice a day Still pending transfer to [facility] status post surgical consult at [facility] with recommendation for endoscopy at tertiary care. Will most likely not be done today status post Discussion with Dr. Alicia hospitalist and Dr. Pike plant attendant or assistant operator at [facility] regarding hyperkalemia and uptrend in systolic blood pressure combined with initial drop in hemoglobin status post first PRBC. See point on hyperkalemia [facility] declined again today. Consult with cardiology at [facility]: -Apixaban and ASA were held on admission in the setting of past AVR and TVR and history of A-flutter/fib with past cardioversion in acute GIB. As per patient's report the valves were bioprosthetic, replacement completed over a year ago at least, and was only on ASA initially. Apixaban was added later and most likely for atrial- flutter/fib. As per consultation with [facility] cardiology MAT MAKING MACHINE TENDER Pratik once bleeding has stabilized X 48 hours, DOAC and ASA could be restarted without bridging with heparin prior to resumption unless there is high concerns for GIB. Decision on DOAC resumption to be completed as per evaluation of risk of bleeding VS risk of ischemic event and this could be done outpatient. Continue IV pantoprazole twice daily. Continue to monitor BMs (2) Anemia: Status: Chronic Assessment and plan: As above (3) Non-ST elevation [place] (NSTEMI): Status: Acute Assessment and plan: Troponin 60-74, repeat at 1800 was 72 and appears to be drawn downtrending Patient was initially symptomatic and is most likely experiencing a type II non- STEMI or demand ischemia. No report of chest pain and improved shortness of breath (4) Hyperkalemia: Status: Inactive Assessment and plan: K at 5.6 then 5.7 s/p lokelma, D50 and insulin K is now 4.9 The patient is an uric and furosemide was considered but not used Calcium gluconate recommended by Dr. Pike plant attendant or assistant operator at [facility] despite myocardial site not appearing unstable on EKG; cardioprotective for HD patient (5) Hypertension: Status: Chronic Assessment and plan: As per previous note h/o labile BP. Uptrend noted in blood pressure with SBP 183 without signs and symptoms of hypoperfusion at this time. Will continue to monitor (6) Tobacco abuse: Status: Acute Assessment and plan: Continue nicotine replacement therapy l (7) Cirrhosis, alcoholic: Status: Acute Assessment and plan: Known cirrhosis with recent CT noted cirrhotic liver and large spleen and mild ascites, suggesting portal hypertension, which is c/w her thrombocytopenia. The patient might have to consider s banding as noted as previously mentioned Transition to carvedilol from metoprolol succinate Monitor clinically (8) ESRD on dialysis: Status: Chronic Assessment and plan: As previously mentioned by admitting physician, we typically don't admit ESRD lisa staton but she just had dialysis, is at her dry weight, HD not due until Monday. Patient is anuric Transfer still pending status post discussion with hospitalist and plant attendant or assistant operator at [facility] no update in transfer acuity at this time BMP in a.m. (9) COPD (chronic obstructive pulmonary disease): Status: Chronic Assessment and plan: Resolution of shortness of breath status post blood transfusion and no exacerbation at this time, will continue home inhalers (10) DVT prophylaxis: Status: Acute Assessment and plan: Ongoing TEDS/scds due to active bleed (11) Discharge planning issues: Status: Acute Assessment and plan: Continue care on medical floor pending transfer to [facility], see ED notes Patient was to maintain full CODE STATUS as she wants CPR, intubation and states that she has multiple grandchildren Might benefit from palliative care consultation if the patient is still at [facility] on Monday Discussed with Dr. Hinds Subjective Subjective Patient reports: no new complaints, feels better, tolerating liquids well and bowel movement; denies voiding w/o difficulty (anuric), blood in stool (guaiac positive), nausea, vomiting, shortness of breath (At rest ) or fever Exam Narrative Exam Narrative: HENMT: Facial structures with normal appearance Neuro:alert and oriented to self, person, place time and situation. No neurological focal deficit, PERRLA Chest:Chest is symmetrical and normal appearance Resp: Clear lungs Cardio: Tele sinus HR 60 regular rhythm, +murmur, thrill and bruit + to RUE fistula GI: Abdomen is not distended, soft and non tender, bowel sounds are present : Negative Costovertebral angle tenderness Back/spine/Pelvis: No back tenderness, normal alignment Integumentary: scattered bruises to arms Extremities: generalized weakness Psych: RASS 0-1, congruent mood and normal affect. Objective Last Vital Signs Temp 37.1 C 03/24/24 09:32 Pulse 66 03/24/24 11:00 Resp 17 03/24/24 11:00 BP 135/72 03/24/24 09:32 Pulse Ox 94 03/24/24 11:00 Laboratory Results - last 24 hr 03/22/24 03/23/24 03/23/24 16:16 13:02 16:00 WBC RBC Hgb 8.0 L Hct 25.1 L MCV MCH MCHC RDW Plt Count MPV Sodium Potassium 5.7 H Chloride Carbon Dioxide Anion Gap BUN Creatinine Est GFR (CKD-EPI 2020) Glucose Calcium Troponin I 74 H* ABO/Rh A Positive Antibody Screen NEGATIVE Crossmatch See Detail 03/23/24 03/24/24 03/24/24 18:06 02:00 07:13 WBC 4.64 4.30 L RBC 2.45 L 2.55 L Hgb 7.3 L 7.7 L Hct 23.3 L 23.7 L MCV 95 93 MCH 29.8 30.2 MCHC 31.3 L 32.5 RDW 20.8 H 19.3 H Plt Count 92 L 80 L MPV 12.4 H 11.8 H Sodium 133 L 132 L Potassium 4.9 5.7 H Chloride 94 L 93 L Carbon Dioxide 28.5 34.5 H Anion Gap 10.5 4.5 BUN 84 H* 92 H* Creatinine 5.9 H* 6.6 H* Est GFR (CKD-EPI 2020) 7.66 6.70 Glucose 163 H 86 Calcium 7.7 L 7.4 L Troponin I 72 H* ABO/Rh Antibody Screen Crossmatch
[2024-03-24] MEDS: Sucralfate 1 GM TAB PO (11:43)
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
[2024-03-24 13:28] LABS: MCH 29.8 pg (27.0-33.0); MCV 90 fL (80-95); RBC 2.99 10^6/uL (3.93-5.22); RDW-SD 66.8 fL; WBC 5.22 10^3/uL (4.4-10.8)
[2024-03-24 13:42] LABS: RDW 20.4 % (11.7-14.6)
[2024-03-24 13:43] LABS: HGB 8.9 g/dL (11.2-15.7); Platelet Count 89 10^3/uL (130-400)
[2024-03-24 13:48] LABS: ALT 21 U/L (14-59); AST 25 U/L (15-37); Alkaline Phosphatase 99 U/L (46-116); Anion Gap 8.1 mmol/L (3-11); CO2 29.9 mmol/L (21.0-32.0); Calcium 7.4 mg/dL (8.5-10.1); Chloride 91 mmol/L (98-107); Estimated GFR 6.24 (mL/min/1.73m2); Glucose 99 mg/dL (74-106); Magnesium 1.8 mg/dL (1.8-2.4); Potassium 5.7 mmol/L (3.5-5.1); Sodium 129 mmol/L (136-145); Total Protein 5.8 g/dL (6.4-8.2)
[2024-03-24 13:54] LABS: BUN 100 mg/dL (7-18)
== END 2024-03-24 13:41 | disposition short-term general hospital (02) | DRG 377 ==
LOC: ER 03-23 00:39 → MS 03-23 02:38
PROVIDERS: Nurse Practitioner Acute Care; Physician Assistant; Admitting Provider Family Medicine; Emergency Provider Student in an Organized Health Care Education/Training Program; PCP Family Medicine; Visit Provider Family Medicine
DX: K92.1 Melena (principal); I21.A1 Myocardial infarction type 2; N18.6 End stage renal disease; K76.6 Portal hypertension; Z94.0 Kidney transplant status; I13.2 Hypertensive heart and chronic kidney disease with heart failure and with stage 5 chronic kidney disease, or end stage renal disease; K70.31 Alcoholic cirrhosis of liver with ascites; D69.59 Other secondary thrombocytopenia; D63.1 Anemia in chronic kidney disease; J44.9 Chronic obstructive pulmonary disease, unspecified; F17.210 Nicotine dependence, cigarettes, uncomplicated; Z79.01 Long term (current) use of anticoagulants; Z79.82 Long term (current) use of aspirin; Z99.2 Dependence on renal dialysis; F10.11 Alcohol abuse, in remission; Z87.11 Personal history of peptic ulcer disease; F41.9 Anxiety disorder, unspecified; F43.10 Post-traumatic stress disorder, unspecified; I71.20 Thoracic aortic aneurysm, without rupture, unspecified; Z95.3 Presence of xenogenic heart valve; F32.A Depression, unspecified; E89.2 Postprocedural hypoparathyroidism; E78.5 Hyperlipidemia, unspecified; K21.9 Gastro-esophageal reflux disease without esophagitis; F12.90 Cannabis use, unspecified, uncomplicated; I45.10 Unspecified right bundle-branch block; E87.5 Hyperkalemia; Z99.81 Dependence on supplemental oxygen; I50.810 Right heart failure, unspecified
CPT/HCPCS: 00123; 36415; 36430; 80048; 80053; 82805; 83690; 85027; 86850; 86900; 86901; 86920; 87637; 93005; 94640; 96374; 96375; 99285; 71046; 83605; 83735; 84100; 84132; 84484; 85014; 85018; 85025; 85610; 85730; 93010; 94664; 94760; 99223; 99239; J0613; J1200; J1815; J2470; J2919; J7613; J7620; P9016

== ENCOUNTER 2024-04-10 14:34 | Emergency (ER) | payer OTHER, SELFPAY ==
--- NOTE | 2024-04-10 14:30 | RT.EKG_ITS ---
APPROVED REPORT Exam: Resting ECG Reason for Exam: SOB Patient Location: E HR:79 bpm ECG Measurements Heart Rate 79 AXIS [place] 133 P 62 QRSd 166 QRS -141 QT 463 T 56 QTc 530 Conclusion Sinus rhythm, rate 79 RBBB unchanged from priors No STEMI
[2024-04-10 14:31] VITALS: BP 155/78; PULSE 91; RESP 18; TEMP 36.4; O2SAT 100
--- NOTE | 2024-04-10 14:45 | DI.RAD_ITS ---
Exam(s) XR CHEST 2V PA LATERAL EXAM: XR CHEST 2V PA LATERAL CLINICAL HISTORY: cough, SOB. TECHNIQUE: 2D digital imaging was performed. COMPARISON: CR XR CHEST 2V PA LATERAL from 03/22/2024 FINDINGS: 2 views: There is sternotomy wires and cardiomegaly and there are 2 prosthetic cardiac valves again noted. Mediastinum is unchanged. There are prominent main pulmonary arteries bilaterally probably indicatin g element of pulmonary artery hypertension. There are no confluent infiltrates nor large pleural effusions. Mild blunting of the right costophre vanessa angle probably indicates a small amount of right pleural fluid. No evidence of pulmonary edema. IMPRESSION: Cardiomegaly. Sternotomy. Two prosthetic cardiac valves again noted. Enlarged bilateral pulmonary arteries probably indicating an element of pulmonary arterial hypertensi on. However, there are no confluent infiltrates and no evidence of pulmonary edema. There is blunti ng of the right costophrenic angle which probably indicates a small right pleural effusion. DATA REPOSITORY: RADIATION DOSE DELIVERED:
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
[2024-04-10 15:17] LABS: Abs Immature Grans 0.01 10^3/uL (0.0-0.06); Absolute Basophil Count 0.03 10^3/uL (0.0-0.2); Absolute Eosinophil Count 0.27 10^3/uL (0.0-0.7); Absolute Lymphocyte Count 0.32 10^3/uL (1.2-3.4); Absolute Monocyte Count 0.33 10^3/uL (0.1-0.8); Absolute Neutrophil Count 1.54 10^3/uL (1.2-6.7); Basophils % 1.2 %; Eosinophils % 10.8 %; HCT 27.8 % (36.0-46.0); HGB 8.6 g/dL (11.2-15.7); Immature Grans % 0.4 %; Lymphocytes % 12.8 %; MCH 30.2 pg (27.0-33.0); MCHC 30.9 % (32.0-36.0); MCV 98 fL (80-95); MPV 11.6 fL (8.0-11.0); Monocytes % 13.2 %; Neutrophils % 61.6 %; Platelet Count 117 10^3/uL (130-400); RBC 2.85 10^6/uL (3.93-5.22); RDW 16.9 % (11.7-14.6); RDW-SD 61.1 fL
[2024-04-10] MEDS: methylPREDNISolone SUCC 125 MG VIAL IVP (15:33)
[2024-04-10 15:43] LABS: ALT 46 U/L (14-59); AST 36 U/L (15-37); Albumin 3.2 g/dL (3.4-5.0); Alkaline Phosphatase 313 U/L (46-116); Anion Gap 2.1 mmol/L (3-11); BUN 11 mg/dL (7-18); Bilirubin, Total 0.68 mg/dL (0.2-1.0); CO2 38.9 mmol/L (21.0-32.0); CREATININE 2.6 mg/dL (0.55-1.02); Calcium 8.5 mg/dL (8.5-10.1); Chloride 100 mmol/L (98-107); Estimated GFR 20.49 (mL/min/1.73m2); Glucose 79 mg/dL (74-106); Magnesium 1.6 mg/dL (1.8-2.4); Potassium 3.4 mmol/L (3.5-5.1); Sodium 141 mmol/L (136-145); Total Protein 6.8 g/dL (6.4-8.2); Troponin I 51 ng/L (<or=51)
[2024-04-10 16:06] LABS: NT-proBNP > 35000 pg/mL (<300)
[2024-04-10 16:28] VITALS: BP 155/78; PULSE 91; RESP 18; TEMP 36.4; O2SAT 100
[2024-04-10] MEDS: Albuterol/Ipratropium 3 ML UPD VIAL 6 ML UPD (16:29)
[2024-04-10] MEDS: Magnesium Oxide 400 MG TAB PO (16:31)
[2024-04-10 16:45] LABS: Troponin I 48 ng/L (<or=51)
[2024-04-10 17:05] LABS: COVID-19 PCR Negative (Negative); Influenza A PCR Negative (Negative); Influenza B PCR Negative (Negative); RSV PCR Negative (Negative)
[2024-04-10 17:07] LABS: Source Nasopharynx
[2024-04-10] MEDS: Doxycycline Hyclate 100 MG CAP PO (19:13)
[2024-04-10 19:16] VITALS: BP 155/78; PULSE 91; RESP 15; RESP 18; TEMP 36.4; O2SAT 100
== END 2024-04-10 19:30 | disposition home or self-care (01) ==
PROVIDERS: Nurse Practitioner Family; Emergency Provider Physician Assistant; PCP Family Medicine
DX: J44.1 Chronic obstructive pulmonary disease with (acute) exacerbation (principal); I13.0 Hypertensive heart and chronic kidney disease with heart failure and stage 1 through stage 4 chronic kidney disease, or unspecified chronic kidney disease; N18.6 End stage renal disease; I50.9 Heart failure, unspecified; Z95.2 Presence of prosthetic heart valve; Z99.2 Dependence on renal dialysis; Z94.0 Kidney transplant status; Z99.81 Dependence on supplemental oxygen
CPT/HCPCS: 36415; 80053; 87637; 93005; 94640; 96374; 99285; 71046; 83735; 83880; 84484; 85025; 93010; J2919; J7620

== ENCOUNTER 2024-04-26 14:32 | Emergency (ER) | payer OTHER, SELFPAY ==
[2024-04-26] VITALS (19 sets, daily range): BP systolic 156–197; BP diastolic 68–151; PULSE 65–83; RESP 15–23; TEMP 36.8; O2SAT 92–100
--- NOTE | 2024-04-26 14:15 | RT.EKG_ITS ---
APPROVED REPORT Exam: Resting ECG Reason for Exam: HTN,DYSPNEA Patient Location: E HR:74 bpm ECG Measurements Heart Rate 74 AXIS HI 118 P 19 QRSd 163 QRS 76 QT 471 T 13 QTc 524 Conclusion Sinus rhythm 74 RBBB no stemi no change from prior
--- NOTE | 2024-04-26 14:30 | DI.RAD_ITS ---
Exam(s) XR PORTABLE CHEST AP EXAM: XR PORTABLE CHEST AP CLINICAL HISTORY: sob TECHNIQUE: 2D digital imaging was performed. COMPARISON: CR XR CHEST 2V PA LATERAL from 04/10/2024 FINDINGS: LUNGS: Clear. No pleural abnormality seen. HEART: Markedly enlarged. Two prostatic valves. Pulmonary arteries are again prominent. AORTA: Normal diameter. BONES: Sternal wires. Soft tissues: Unremarkable. IMPRESSION: Stable cardiomegaly. No acute findings. DATA REPOSITORY: RADIATION DOSE DELIVERED:
[2024-04-26 15:29] LABS: BE (Venous) 14 mmol/L (-2-3); HCO3 (Venous) 39 mmol/L (23-28); O2 Sat (Venous) 80 %; TCO2 (Venous) 36 mmol/L (24-29); pCO2 (Venous) 60 mmHg (41-51); pH (Venous) 7.42 (7.31-7.41); pO2 (Venous) 44 mmHg
[2024-04-26 15:32] LABS: Abs Immature Grans 0.01 10^3/uL (0.0-0.06); Absolute Basophil Count 0.04 10^3/uL (0.0-0.2); Absolute Eosinophil Count 0.38 10^3/uL (0.0-0.7); Absolute Lymphocyte Count 0.42 10^3/uL (1.2-3.4); Absolute Monocyte Count 0.41 10^3/uL (0.1-0.8); Basophils % 1.2 %; Eosinophils % 11.3 %; HGB 10.4 g/dL (11.2-15.7); Immature Grans % 0.3 %; Lymphocytes % 12.5 %; MCH 29.2 pg (27.0-33.0); MCHC 29.7 % (32.0-36.0); MCV 98 fL (80-95); MPV 12.9 fL (8.0-11.0); Monocytes % 12.2 %; Neutrophils % 62.5 %; RBC 3.56 10^6/uL (3.93-5.22); RDW-SD 54.1 fL; WBC 3.36 10^3/uL (4.4-10.8)
[2024-04-26 15:47] LABS: Platelet Count 84 10^3/uL (130-400)
[2024-04-26 15:52] LABS: ALT 30 U/L (14-59); AST 44 U/L (15-37); Albumin 3.7 g/dL (3.4-5.0); Alkaline Phosphatase 210 U/L (46-116); BUN 12 mg/dL (7-18); Bilirubin, Total 0.85 mg/dL (0.2-1.0); Calcium 8.7 mg/dL (8.5-10.1); Chloride 98 mmol/L (98-107); Estimated GFR 17.26 (mL/min/1.73m2); Glucose 92 mg/dL (74-106); Potassium 3.9 mmol/L (3.5-5.1); Sodium 139 mmol/L (136-145); Total Protein 7.4 g/dL (6.4-8.2)
[2024-04-26 16:22] LABS: NT-proBNP 32778 pg/mL (<300)
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
== END 2024-04-26 16:30 | disposition home or self-care (01) ==
PROVIDERS: Emergency Provider Emergency Medicine; PCP Family Medicine
DX: J44.1 Chronic obstructive pulmonary disease with (acute) exacerbation (principal); I12.0 Hypertensive chronic kidney disease with stage 5 chronic kidney disease or end stage renal disease; N18.6 End stage renal disease; I45.10 Unspecified right bundle-branch block; Z95.2 Presence of prosthetic heart valve; Z99.2 Dependence on renal dialysis; Z94.0 Kidney transplant status
CPT/HCPCS: 80053; 82805; 93005; 71045; 83880; 85025; 93010

== ENCOUNTER 2024-04-28 12:23 | Inpatient (IN) | payer OTHER, SELFPAY ==
[2024-04-28] VITALS (92 sets, daily range): BP systolic 116–185; BP diastolic 60–93; PULSE 16–100; RESP 3–78; TEMP 36.6–37; O2SAT 85–100
--- NOTE | 2024-04-28 12:15 | RT.EKG_ITS ---
APPROVED REPORT Exam: Resting ECG Reason for Exam: sob Patient Location: E HR:83 bpm ECG Measurements Heart Rate 83 AXIS OR 166 P 12 QRSd 156 QRS 6 QT 416 T -1 QTc 490 Conclusion Sinus rhythm...normal P axis, V-rate 60- 99 Right bundle branch block...QRSd>120, terminal axis(90,270) Physician: no stemi
--- NOTE | 2024-04-28 12:30 | DI.RAD_ITS ---
Exam(s) XR PORTABLE CHEST AP EXAM: XR PORTABLE CHEST AP CLINICAL HISTORY: cough, sob, eval for pneumonia. TECHNIQUE: 2D digital imaging was performed. COMPARISON: Prior chest x-ray of 04/26/2024. FINDINGS: Single AP portable view. Again noted are sternotomy wires and 2 prosthetic cardiac valves. Mild cardiomegaly again noted. Mediastinum unchanged. No infiltrates nor pleural effusions. No pul monary edema. No pneumothorax. No fractures. Lungs are clear. No infiltrates nor obvious pleural effusions. IMPRESSION: No acute pulmonary findings on this single AP portable view of the chest.Cardiomegaly and prosthetic aortic valve is again noted DATA REPOSITORY: RADIATION DOSE DELIVERED:
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
[2024-04-28 12:58] LABS: BE (Venous) 6 mmol/L (-2-3); HCO3 (Venous) 31 mmol/L (23-28); O2 Sat (Venous) 100 %; TCO2 (Venous) 29 mmol/L (24-29); pCO2 (Venous) 51 mmHg (41-51); pH (Venous) 7.39 (7.31-7.41); pO2 (Venous) 124 mmHg
[2024-04-28 13:20] LABS: HCT 33.6 % (36.0-46.0); HGB 10.3 g/dL (11.2-15.7); MCH 29.3 pg (27.0-33.0); MCHC 30.7 % (32.0-36.0); MCV 96 fL (80-95); RBC 3.51 10^6/uL (3.93-5.22); RDW 14.8 % (11.7-14.6); RDW-SD 51.8 fL; WBC 4.52 10^3/uL (4.4-10.8)
[2024-04-28] MEDS: methylPREDNISolone SUCC 125 MG VIAL IVP (13:32)
[2024-04-28] MEDS: MAGNESIUM SULFATE 4 GM/100 ML BAG IV_INF (13:33)
[2024-04-28] MEDS: Albuterol/Ipratropium 3 ML UPD VIAL 9 ML UPD (13:36)
[2024-04-28 13:44] LABS: Platelet Count 94 10^3/uL (130-400)
--- NOTE | 2024-04-28 13:48 | DI.VRAD_ITS ---
PROCEDURE INFORMATION: Exam: XR Chest Exam date and time: 04/28/2024 1:28 PM Age: 58 years old Clinical indication: Other: Cough, SOB, eval for pneumonia; Prior surgery; Surgery date: 6+ months; Surgery type: Open heart TECHNIQUE: Imaging protocol: Radiologic exam of the chest. Views: 1 view. COMPARISON: CR XR PORTABLE CHEST AP 04/26/2024 3:14 PM FINDINGS: Tubes, catheters and devices: Sternal wires Lungs: Pulmonary vascular congestion has significantly improved from the previous exam. Lungs remain slightly hyperinflated. No focal infiltrate. Pleural spaces: Unremarkable. No pleural effusion. No pneumothorax. Heart/Mediastinum: Cardiomegaly Bones/joints: Unremarkable. IMPRESSION: Improved pulmonary vascular congestion. Dictated and Authenticated by: Kirt Zhu MD. Orderin Mukesh Drummond MD
[2024-04-28 13:51] LABS: Absolute Basophil Count 0.05 10^3/uL (0.0-0.2); Absolute Eosinophil Count 0.09 10^3/uL (0.0-0.7); Absolute Monocyte Count 0.59 10^3/uL (0.1-0.8); Anisocytosis 1+; Diff Comment Manual Differential
[2024-04-28 13:51] LABS: INR 1.2 (0.9-1.1); PTT Activated 25.1 sec (20.6-30.2); Prothrombin Time 12.3 sec (9.1-11.1)
[2024-04-28 13:54] LABS: ALT 32 U/L (14-59); AST 28 U/L (15-37); Albumin 3.9 g/dL (3.4-5.0); Alkaline Phosphatase 198 U/L (46-116); Anion Gap 8.2 mmol/L (3-11); BUN 55 mg/dL (7-18); Bilirubin, Total 0.64 mg/dL (0.2-1.0); CO2 31.8 mmol/L (21.0-32.0); Calcium 8.6 mg/dL (8.5-10.1); Chloride 93 mmol/L (98-107); Estimated GFR 6.24 (mL/min/1.73m2); Glucose 98 mg/dL (74-106); Potassium 4.6 mmol/L (3.5-5.1); Sodium 133 mmol/L (136-145); Total Protein 7.4 g/dL (6.4-8.2); Troponin I 45 ng/L (<or=51)
[2024-04-28 14:01] LABS: Procalcitonin 0.45 ng/mL
[2024-04-28 14:37] LABS: COVID-19 PCR Negative (Negative); Influenza A PCR Negative (Negative); Influenza B PCR Negative (Negative); RSV PCR Negative (Negative)
[2024-04-28 14:43] LABS: Source Nasopharynx
[2024-04-28 14:52] LABS: Troponin I 47 ng/L (<or=51)
--- NOTE | 2024-04-28 15:18 | NUR.NOTE ---
Nursing Note: per patient's request, daughter was notified about patient being in the ED. Also updated daughter to patient being transferred to another facility
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
[2024-04-28] MEDS: Enoxaparin 40 MG/0.4 ML SYR SC (17:00)
[2024-04-28] MEDS: cefTRIAXone 2 GM/50 ML BAG IVPB (17:01)
[2024-04-28 17:06] LABS: Troponin I 41 ng/L (<or=51)
--- NOTE | 2024-04-28 17:16 | W.PC.ACHO ---
Registration Status: Primary Language: Preferred Language: ED Information & Data Chief Complaint RespSymp 04/28/24 13:26 Chief Complaint RespSymp 04/28/24 12:45 Triage Note was seen here wiliam for 04/28/24 12:26 cough, diff breathing. in today for increased s/s. needing 3l increased of baseline 2, still feels it is hard to breath. 6 nebs at home w/ no improvement, cont albuterol via ems en route Medical / Surgical History (Last Updated 03/26/24 @ 15:12 by Delfina Dubon) GI bleeding Fall Neck pain Right upper quadrant abdominal pain Open abdominal wall wound Personal history of nicotine dependence History of attempted suicide Axillary lymphadenopathy Nail dystrophy Cannabis dependence Cyst of ovary (08/20/12) Depression (09/14/12) Recurrent urinary tract infection Upper GI bleed (05/17/14) Umbilical hernia Hyperparathyroidism, unspecified (02/09/11) Diverticulitis of large intestine without perforation or abscess with bleeding Bleeding hemorrhoids (01/08/13) (Last Updated 03/26/24 @ 15:12 by Delfina Dubon) Aortic valve replaced H/O aortic valve replacement History of kidney transplant TRANSPLANT, KIDNEY (~1997) Abdominal hysterectomy (~2006) Repair of umbilical hernia Most Recent Vital Signs Temperature 36.9 C 04/28/24 13:26 Pulse 84 04/28/24 16:10 Pulse 84 04/28/24 16:10 Respiratory Rate 21 04/28/24 16:10 Respiratory Effort Short of Breath, Labored, Accessory Muscle Use, Tripod 04/28/24 13:28 Respiratory Depth Normal 04/28/24 13:28 Blood Pressure 162/93 H 04/28/24 15:30 Blood Pressure Mean 110 04/28/24 15:30 Pulse Oximetry 97 04/28/24 16:24 Oxygen Delivery Method Nasal Cannula 04/28/24 16:24 Oxygen Flow Rate 0.5 04/28/24 16:24 Fraction of Inspired Oxygen (FIO2) 21 04/28/24 14:32 Pain Level 0 04/28/24 12:26 Allergies cephalexin monohydrate (From Keflex) Allergy (Severe, Verified 04/10/24 14:36) trouble breathing oxycodone Allergy (Unknown, Unverified 04/10/24 14:36) Unknown colchicine Allergy (Verified 04/10/24 14:36) Unknown allopurinol Adverse Reaction (Intermediate, Verified 04/10/24 14:36) gout breakout erythromycin base Adverse Reaction (Intermediate, Verified 04/10/24 14:36) gout breakout Active Medications Generic Name Dose Route Start Last Admin Trade Name Lucretia PRN Reason Stop Dose Admin Ceftriaxone Sodium/Dextrose 2 gm in 50 mls @ 100 mls/hr 04/28/24 16:30 04/28/24 17:01 Rocephin IVPB 100 mls/hr Q24H CHRISTINA Administration IV IV Catheter Type [Left Wrist] Saline Lock IV Catheter Gauge [Left Wrist] 20 Diet Orders Category Date Time Status Regular/Normal [DIET] Nutrition 04/28/24 Dinner Active Diagnostics 04/28/24 04/28/24 04/28/24 Range/Units 16:35 14:29 13:55 WBC RBC Hgb Hct MCV MCH MCHC RDW Plt Count MPV Immature Gran % Neutrophils % Band Neutrophils % Lymphocytes % Atypical Lymphs % Monocytes % Eosinophils % Basophils % Metamyelocytes % Myelocytes % Promyelocytes % Other Cells % Nucleated RBC % Absolute Neutrophils Absolute Lymphocytes Absolute Monocytes Absolute Eosinophils Absolute Basophils RBC Morphology Polychromasia Hypochromasia Poikilocytosis Basophilic Stippling Anisocytosis Microcytosis Macrocytosis Spherocytes Tear Drop Cells Ovalocytes Stomatocytes [place] Bodies Gigi Cells/Echinocytes Acanthocytes (Spur) Schistocytes PT INR APTT VBG pH (7.31-7.41) VBG pCO2 (41-51) mmHg VBG pO2 mmHg VBG HCO3 (23-28) mmol/L VBG Total CO2 (24-29) mmol/L VBG O2 Saturation % VBG Base Excess (-2-3) mmol/L Sodium Potassium Chloride Carbon Dioxide Anion Gap BUN Creatinine Est GFR (CKD-EPI 2020) Glucose Calcium Total Bilirubin AST ALT Alkaline Phosphatase Troponin I 41 47 Total Protein Albumin Procalcitonin COVID-19 Source Nasopharynx SARS-CoV-2 (PCR) Negative (Negative) Influenza Type A (PCR) Negative (Negative) Influenza Type B (PCR) Negative (Negative) RSV (PCR) Negative (Negative) 04/28/24 04/28/24 04/28/24 Range/Units 13:30 13:10 12:50 WBC 4.52 Cancelled RBC 3.51 L Cancelled Hgb 10.3 L Cancelled Hct 33.6 L Cancelled MCV 96 H Cancelled MCH 29.3 Cancelled MCHC 30.7 L Cancelled RDW 14.8 H Cancelled Plt Count 94 L Cancelled MPV Cancelled Immature Gran % See Differential Cancelled Neutrophils % 73.0 Cancelled Band Neutrophils % Cancelled Lymphocytes % 11.0 Cancelled Atypical Lymphs % Cancelled Monocytes % 13.0 Cancelled Eosinophils % 2.0 Cancelled Basophils % 1.0 Cancelled Metamyelocytes % Cancelled Myelocytes % Cancelled Promyelocytes % Cancelled Other Cells % Cancelled Nucleated RBC % 0.0 Cancelled Absolute Neutrophils 3.30 Cancelled Absolute Lymphocytes 0.50 L Cancelled Absolute Monocytes 0.59 Cancelled Absolute Eosinophils 0.09 Cancelled Absolute Basophils 0.05 Cancelled RBC Morphology See Below Cancelled Polychromasia Cancelled Hypochromasia Cancelled Poikilocytosis Cancelled Basophilic Stippling Cancelled Anisocytosis 1+ Cancelled Microcytosis Cancelled Macrocytosis Cancelled Spherocytes Cancelled Tear Drop Cells Cancelled Ovalocytes Cancelled Stomatocytes Cancelled [place] Bodies Cancelled Gigi Cells/Echinocytes Cancelled Acanthocytes (Spur) Cancelled Schistocytes Cancelled PT 12.3 H Cancelled INR 1.2 H Cancelled APTT 25.1 Cancelled VBG pH 7.39 (7.31-7.41) VBG pCO2 51 (41-51) mmHg VBG pO2 124 mmHg VBG HCO3 31 H (23-28) mmol/L VBG Total CO2 29 (24-29) mmol/L VBG O2 Saturation 100 % VBG Base Excess 6 H (-2-3) mmol/L Sodium 133 L Cancelled Potassium 4.6 Cancelled Chloride 93 L Cancelled Carbon Dioxide 31.8 Cancelled Anion Gap 8.2 Cancelled BUN 55 H Cancelled Creatinine 7.0 H* D Cancelled Est GFR (CKD-EPI 2020) 6.24 Cancelled Glucose 98 Cancelled Calcium 8.6 Cancelled Total Bilirubin 0.64 Cancelled AST 28 Cancelled ALT 32 Cancelled Alkaline Phosphatase 198 H Cancelled Troponin I 45 Cancelled Total Protein 7.4 Cancelled Albumin 3.9 Cancelled Procalcitonin 0.45 Cancelled COVID-19 Source SARS-CoV-2 (PCR) (Negative) Influenza Type A (PCR) (Negative) Influenza Type B (PCR) (Negative) RSV (PCR) (Negative) Intake and Output - 24 Hour Total 04/28/24 12:06 thru 04/28/24 16:14 Intake Total 100 Balance 100 Weight 57.3 kg Intake: IV 100 Falls Risk Assessment History of Falls No History 04/28/24 13:26 Contributing Factors No Factors 04/28/24 13:26 Ambulatory Aids Independent 04/28/24 13:26 Tubes/Lines None 04/28/24 13:26 Gait Evaluation No gait disturbance 04/28/24 13:26 Cognition No cognitive impairment 04/28/24 13:26 Fall Total Score 0 04/28/24 13:26 Level of Risk Standard/Low Risk 04/28/24 13:26 Problems (Last Updated 03/26/24 @ 15:12 by Delfina Dubon) CVD (cardiovascular disease) (Chronic) Stage 5 chronic kidney disease with transplanted kidney (Chronic) COPD (chronic obstructive pulmonary disease) (Chronic) Central venous catheter in place (Chronic ~10/29/19) Notes 04/28/24 15:18 Nursing Notes by Supriya Wynne Nursing Note: per patient's request, daughter was notified about patient being in the ED. Also updated daughter to patient being transferred to another facility Initialized on 04/28/24 15:18 - END OF NOTE v v v v v v v v v Sending and/or Receiving Nurses: Please use comment section below to note any information pertinent to the patient hand-off not included above. Information / Comments: Report received from: Malathi Guajardo RN
[2024-04-28] MEDS: Albuterol/Ipratropium 3 ML UPD VIAL UPD (18:05)
[2024-04-28] MEDS: Sucralfate 1 GM TAB PO ×2 (18:41→21:49)
[2024-04-28] MEDS: Heparin 5,000 UNITS/ML VIAL 5000 UNITS SC (18:41)
[2024-04-28] MEDS: Albuterol/Ipratropium 3 ML UPD VIAL IH (21:30)
[2024-04-28] MEDS: traMADol 50 MG TAB PO (21:48)
[2024-04-28] MEDS: traZODone 100 MG TAB PO (21:48)
[2024-04-28] MEDS: Prazosin 1 MG CAP PO (21:49)
[2024-04-28] MEDS: Minoxidil 2.5 MG TAB PO (22:16)
[2024-04-28] MEDS: Budesonide/Formoterol 160/4.5 6 GM 60 PUFF INH IH (22:42)
[2024-04-29] VITALS (45 sets, daily range): BP systolic 101–129; BP diastolic 52–70; PULSE 64–76; RESP 3–36; TEMP 36.6–36.7; O2SAT 79–100
[2024-04-29] MEDS: Albuterol/Ipratropium 3 ML UPD VIAL UPD ×3 (02:55→12:49)
[2024-04-29] MEDS: methylPREDNISolone SUCC 125 MG VIAL 60 MG IVP (05:38)
[2024-04-29] MEDS: Sucralfate 1 GM TAB PO ×2 (05:38→12:01)
[2024-04-29] MEDS: Heparin 5,000 UNITS/ML VIAL 5000 UNITS SC (05:39)
[2024-04-29 06:32] LABS: Abs Immature Grans 0.03 10^3/uL (0.0-0.06); Absolute Basophil Count 0.04 10^3/uL (0.0-0.2); Absolute Eosinophil Count 0.02 10^3/uL (0.0-0.7); Absolute Lymphocyte Count 0.31 10^3/uL (1.2-3.4); Absolute Monocyte Count 0.45 10^3/uL (0.1-0.8); Absolute Neutrophil Count 2.57 10^3/uL (1.2-6.7); Basophils % 1.2 %; Eosinophils % 0.6 %; HCT 29.3 % (36.0-46.0); HGB 9.1 g/dL (11.2-15.7); Immature Grans % 0.9 %; Lymphocytes % 9.1 %; MCH 29.6 pg (27.0-33.0); MCHC 31.1 % (32.0-36.0); MCV 95 fL (80-95); Monocytes % 13.2 %; RBC 3.07 10^6/uL (3.93-5.22); RDW 14.6 % (11.7-14.6); RDW-SD 50.7 fL; WBC 3.42 10^3/uL (4.4-10.8)
[2024-04-29] MEDS: Normal Saline Flush 10 ML SYR ×2 (06:36→07:52)
[2024-04-29 06:50] LABS: ALT 26 U/L (14-59); AST 27 U/L (15-37); Albumin 3.4 g/dL (3.4-5.0); Alkaline Phosphatase 171 U/L (46-116); Anion Gap 9.3 mmol/L (3-11); BUN 69 mg/dL (7-18); Bilirubin, Total 0.52 mg/dL (0.2-1.0); CO2 28.7 mmol/L (21.0-32.0); Chloride 93 mmol/L (98-107); Estimated GFR 5.24 (mL/min/1.73m2); Glucose 99 mg/dL (74-106); Sodium 131 mmol/L (136-145); Total Protein 6.5 g/dL (6.4-8.2)
[2024-04-29 06:58] LABS: CREATININE 8.1 mg/dL (0.55-1.02); Potassium 5.6 mmol/L (3.5-5.1)
[2024-04-29 07:02] LABS: Platelet Count 96 10^3/uL (130-400)
[2024-04-29 07:03] LABS: Diff Comment Diff Reviewed; RBC Morphology Normal
[2024-04-29] MEDS: Metoprolol CR 100 MG TABCR PO (07:52)
[2024-04-29] MEDS: Atorvastatin 40 MG TAB PO (07:53)
[2024-04-29] MEDS: Pantoprazole 40 MG TABCR PO (07:53)
[2024-04-29] MEDS: Budesonide/Formoterol 160/4.5 6 GM 60 PUFF INH IH (08:17)
[2024-04-29] MEDS: Tiotropium Bromide-Respimat 10 PUFF INH IH (08:18)
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
--- NOTE | 2024-04-29 16:43 | PDOC.CMDIS ---
Date of service: 04/29/24 Time of Service: 16:43 LACE Index Scoring Tool Questions: Length of Stay (in days): 1 Was the patient admitted via the E.D.?: Yes Comorbidities: Congestive Heart Failure, Chronic Pulmonary Disease and Liver or Renal Disease E.D. Visits: 14 Answers: Total Score: 13 Risk of Readmission: High Risk Care Management Discharge Plan Reason for Hospitalization: COPD Discharge Plan: Earlene is being transferred to [facility]. She will be transported via EMS and follow up with the facility providers and plan of care. Patient/Family Education Needs: Review discharge instructions, expectations. Services Needed at Discharge: Transportation (EMS) SDOH Health Related Social Needs: Health related social needs problems related to housing/economic circumstances (Z59.89), problems with daily activities (Z73.9), feeling lonely/isolated (Z60.8)
== END 2024-04-29 14:18 | disposition short-term general hospital (02) | DRG 191 ==
LOC: ER 17:11 → ICU 04-29 06:33 → MS 04-29 06:36
PROVIDERS: Admitting Provider Hospitalist; Emergency Provider Student in an Organized Health Care Education/Training Program; PCP Family Medicine; Responsible Provider Hospitalist; Visit Provider Hospitalist
DX: J44.1 Chronic obstructive pulmonary disease with (acute) exacerbation (principal); I12.0 Hypertensive chronic kidney disease with stage 5 chronic kidney disease or end stage renal disease; Z94.0 Kidney transplant status; N25.81 Secondary hyperparathyroidism of renal origin; I25.10 Atherosclerotic heart disease of native coronary artery without angina pectoris; Z99.2 Dependence on renal dialysis; Z79.899 Other long term (current) drug therapy; D69.6 Thrombocytopenia, unspecified; Z99.81 Dependence on supplemental oxygen; I71.20 Thoracic aortic aneurysm, without rupture, unspecified; Z95.3 Presence of xenogenic heart valve; K21.00 Gastro-esophageal reflux disease with esophagitis, without bleeding; I51.89 Other ill-defined heart diseases; D64.9 Anemia, unspecified; F43.10 Post-traumatic stress disorder, unspecified; F41.9 Anxiety disorder, unspecified; F32.A Depression, unspecified; Z95.828 Presence of other vascular implants and grafts; K70.30 Alcoholic cirrhosis of liver without ascites; R91.1 Solitary pulmonary nodule; F12.90 Cannabis use, unspecified, uncomplicated
CPT/HCPCS: 00123; 36415; 80053; 82805; 84145; 87637; 93005; 94640; 96365; 96366; 96367; 96372; 96375; 99291; J1650; 71045; 84484; 85025; 85610; 85730; 93010; 94664; 94760; 99223; 99239; J0696; J1644; J2919; J3475; J7620

== ENCOUNTER 2024-05-18 12:10 | Emergency (ER) | payer OTHER, SELFPAY ==
[2024-05-18] VITALS (120 sets, daily range): BP systolic 134–230; BP diastolic 61–107; PULSE 57–80; RESP 12–27; TEMP 36.6; O2SAT 94–100
--- NOTE | 2024-05-18 12:00 | RT.EKG_ITS ---
APPROVED REPORT Exam: Resting ECG Reason for Exam: Chest Pain Patient Location: E HR:69 bpm ECG Measurements Heart Rate 69 AXIS WV 149 P 36 QRSd 158 QRS 66 QT 467 T 6 QTc 500 Conclusion Sinus rhythm, rate 69 RBBB unchanged from priors No STEMI
[2024-05-18 12:50] LABS: Abs Immature Grans 0.01 10^3/uL (0.0-0.06); Absolute Basophil Count 0.04 10^3/uL (0.0-0.2); Absolute Eosinophil Count 0.28 10^3/uL (0.0-0.7); Absolute Lymphocyte Count 0.26 10^3/uL (1.2-3.4); Absolute Neutrophil Count 2.63 10^3/uL (1.2-6.7); Basophils % 1.2 %; Eosinophils % 8.2 %; HCT 32.4 % (36.0-46.0); HGB 10.2 g/dL (11.2-15.7); Immature Grans % 0.3 %; Lymphocytes % 7.6 %; MCH 29.6 pg (27.0-33.0); MCHC 31.5 % (32.0-36.0); MCV 94 fL (80-95); Monocytes % 5.8 %; Neutrophils % 76.9 %; RBC 3.45 10^6/uL (3.93-5.22); RDW 13.7 % (11.7-14.6); RDW-SD 46.6 fL; WBC 3.42 10^3/uL (4.4-10.8)
[2024-05-18] MEDS: MORPHine 10 MG/ML VIAL 2 MG IVP ×2 (12:57→13:49)
[2024-05-18] MEDS: Prochlorperazine 10 MG/2 ML VIAL 2.5 MG IVP (12:58)
[2024-05-18 13:00] LABS: Lipase 43 U/L (<78)
[2024-05-18 13:06] LABS: ALT 22 U/L (14-59); AST 20 U/L (15-37); Albumin 3.6 g/dL (3.4-5.0); Alkaline Phosphatase 201 U/L (46-116); Anion Gap 7.1 mmol/L (3-11); BUN 28 mg/dL (7-18); Bilirubin, Total 0.6 mg/dL (0.2-1.0); CO2 33.9 mmol/L (21.0-32.0); Calcium 9.2 mg/dL (8.5-10.1); Chloride 99 mmol/L (98-107); Estimated GFR 9.82 (mL/min/1.73m2); Glucose 107 mg/dL (74-106); Platelet Count 92 10^3/uL (130-400); Potassium 4.1 mmol/L (3.5-5.1); Sodium 140 mmol/L (136-145); Troponin I 37 ng/L (<or=51)
[2024-05-18 13:07] LABS: MPV 13.3 fL (8.0-11.0)
[2024-05-18 13:09] LABS: CREATININE 4.8 mg/dL (0.55-1.02)
[2024-05-18] MEDS: hydrALAZINE 20 MG/ML VIAL 10 MG IVP (13:48)
[2024-05-18 13:50] LABS: COVID-19 PCR Negative (Negative); Influenza A PCR Negative (Negative); Influenza B PCR Negative (Negative); RSV PCR Negative (Negative)
[2024-05-18 13:51] LABS: Source Nasopharynx
[2024-05-18 14:08] LABS: Troponin I 39 ng/L (<or=51)
[2024-05-18] MEDS: Omnipaque 350 MG/ML 100 ML BTL 80 ML IJ (14:13)
[2024-05-18] MEDS: Normal Saline - Diluent 50 ML VIAL IJ (14:14)
--- NOTE | 2024-05-18 14:16 | DI.CT_ITS ---
Exam(s) CT THORAX ABD/PEL CTA EXAM: CT THORAX ABD/PEL CTA CLINICAL HISTORY: chest, abd, pelvis pain, hx of valve rep x2. TECHNIQUE: Imaging Protocol: Axial computed tomography images with coronal and sagittal reformatted images were created and reviewed CONTRAST MATERIAL: Intravenous: Omnipaque 350 Contrast volume:80 mL Oral: None COMPARISON: CT CT CHEST/ABD/PEL W from 02/27/2024 FINDINGS: CHEST: AORTA: The diameter of the ascending thoracic aorta is enlarged, measuring 4.0 cm. There is no Arcti c valve prosthesis. The diameter of the aortic arch and descending thoracic aorta are normal. There is no evidence of aortic dissection. No pericardial effusion. The abdominal aorta is calcified and there is a mild fusiform infrarenal abdominal aortic aneurysm which exhibits maximum diameter of 2.7 cm. The diameter of the abdominal aorta of above this level is 1.8 cm and below this level 1.7 cm. There is no aneurysmal dilatation of the common iliac arteries. However, there is a peripherally ca lcified fusiform aneurysm in the mid aspect of the left external iliac artery which exhibits maximum diameter 1.5 cm. This is peripherally calcified. Similar findings not seen on the opposite right ex ternal iliac artery.. There are also no aneurysms of the internal iliac arteries on either side. Th ere are no aneurysms of the bilateral common femoral arteries. PULMONARY ARTERIES: The main pulmonary arteries are enlarged indicating an element of pulmonary arter y hypertension. There are no obvious intraluminal filling defects to suggest pulmonary emboli. LUNGS: There are COPD findings but no confluent infiltrates nor pleural effusions. No ominous pulmon nate nodules. No significant findings in the trachea and mainstem bronchi.. MEDIASTINUM: There is no hilar adenopathy. There is a mildly enlarged lymph node anterior to the car andrey. Also mildly enlarged subcarinal lymph node noted. No significant hiatal hernia. No thyroid ma sses. CARDIAC: There is cardiomegaly. There is no pericardial effusion. There are sternotomy wires and th ere is a prosthetic aortic valve as well as prosthetic tricuspid valve. ABDOMEN There is no ascites. LIVER: The liver appears somewhat cirrhotic. There are no obvious discrete focal hepatic lesions sylvain ntified. GALLBLADDER/BILIARY: There are multiple gallstones on the dependent wall the gallbladder. The gallbl adder wall is not edematous and there is no pericholecystic fluid. The CBD is not dilated. PANCREAS: No evidence of pancreatic mass nor dilatation of the pancreatic duct. SPLEEN: Spleen size is upper normal. There are no splenic lesions. ADRENALS: No obvious adrenal masses. KIDNEYS: Both kidneys are severely atrophic and exhibit cortical calcification in the very thin bilat eral cortices. Ureters are not dilated. Urinary bladder is collapsed. ABDOMINAL AORTA: Abdominal aorta is heavily calcified and there is a focal infrarenal abdominal aorti c aneurysm as described above. LYMPH NODES: There is no retroperitoneal nor para-aortic adenopathy. No obvious mesenteric masses. ABDOMINAL WALL: There is an anterior abdominal wall midline hernia mesh supraumbilical location. Ano ther hernia mesh is seen in the anterior left side of the pelvis no significant anterior abdominal he rnia evident. GI: There is no evidence of bowel obstruction, free air, nor abscess. PELVIS: LYMPH NODES: There is no intrapelvic nor inguinal adenopathy. GI: No evidence of appendicitis.There is sigmoid diverticulosis without evidence of obvious acute div erticulitis although there does appear to be a small amount of free fluid in the pelvis (series 26/im age 59). URINARY BLADDER: Bladder is collapsed. Does not contain radiopaque calculi. REPRODUCTIVE: Uterus is atrophic or surgically absent. There are no abnormal adnexal masses. OSSEOUS: No significant osseous lesions. No fractures. Mild disc space narrowing L4-5. No listhesis. IMPRESSION: 1. There is cardiomegaly and dilatation of the ascending thoracic aorta to 4 cm. No evidence of diss ection. The aortic arch and descending thoracic aorta exhibit normal size. There is heavily calcifi ed abdominal aorta with focal aneurysmal dilatation of the infrarenal abdominal aorta to a diameter o f 2.7 cm. There is also focal aneurysmal dilatation in the mid aspect of the left external iliac art tariq, measuring 1.5 cm at this level. There is no evidence of aortic dissection nor iliac artery diss ection. 2. There is cardiomegaly/sternotomy wires, and there are prosthetic aortic and tricuspid valves. No pericardial effusion. 3. Slightly enlarged lymph nodes anterior and below the kristen. No hilar adenopathy. No generalized adenopathy evident in the abdomen and pelvis and spleen size is upper normal. 4. No significant pulmonary findings nor pleural effusions. 5. Cholelithiasis with no evidence of acute cholecystitis nor significant dilatation of the biliary tree. 6. There is severe atrophy of both kidneys. The very thin remaining cortices are calcified bilatera lly. There is no hydronephrosis nor hydroureter. The urinary bladder is collapsed. 7. Cirrhotic appearing liver. There is no ascites in the upper abdomen but there is a small amount of free fluid in the dependent aspect of the pelvis. First read by [facility]. Final report called by myself to ER on 05/18/2024 at 6:50 p.m. RADIATION DOSE DELIVERED: 352.68mGy.cm Total DLP DATA REPOSITORY: All CT scans at this facility are submitted to the National Radiology Data Registry (NRDR) Dose Index Registry (DIR) with the [employer] (ACR). RADIATION OPTIMIZATION: All CT scans at this facility use at least one of these dose optimization te chniques: automated exposure control; mA and/or kV adjustment per patient size (includes targeted exa ms where dose is matched to clinical indication); or iterative reconstruction.
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
--- NOTE | 2024-05-18 15:10 | DI.VRAD_ITS ---
PROCEDURE INFORMATION: Exam: CTA Chest With Contrast CTA Abdomen and Pelvis With Contrast Exam date and time: 05/18/2024 2:01 PM Age: 58 years old Clinical indication: Other: Abdomen pain; Abdominal pain; Generalized; Abd/pelvic pain HX valve replacement x's 2 TECHNIQUE: Imaging protocol: Computed tomographic angiography of the chest with contrast. Exam focused on the arteries. Computed tomographic angiography of the abdomen and pelvis with contrast. Exam focused on the arteries. 3D rendering (Not supervised by radiologist): MIP and/or 3D reconstructed images were created by the technologist. Radiation optimization: All CT scans at this facility use at least one of these dose optimization techniques: automated exposure control; mA and/or kV adjustment per patient size (includes targeted exams where dose is matched to clinical indication); or iterative reconstruction. Contrast material: OMNI 350; Contrast volume: 80 ml; Contrast route: INTRAVENOUS (IV); COMPARISON: CT CHEST PE CTA 12/08/2023 1:21 PM FINDINGS: VASCULATURE: Pulmonary arteries: No evidence of pulmonary embolus to the segmental level. Aorta: Unruptured aneurysm of the ascending aorta 4 cm. No dissection of the aorta. Celiac trunk and mesenteric arteries: No occlusion or significant stenosis. Renal arteries: No occlusion or significant stenosis. Right iliac arteries: No occlusion or significant stenosis. Left iliac arteries: No occlusion or significant stenosis. CHEST: Lungs: Paraseptal emphysematous changes. Mild panlobular emphysematous changes Pleural spaces: Unremarkable. No pneumothorax. No pleural effusion. Heart: Aortic valve replacement. Tricuspid valve replacement. There is calcification of the mitral valve annulus. ABDOMEN AND PELVIS: Liver: Lobulated liver consistent with cirrhosis. Gallbladder and biliary ducts: Gallstones in the gallbladder. Pancreas: Unremarkable. No mass. No ductal dilation. Spleen: Borderline splenomegaly 13 cm.. Adrenal glands: Unremarkable. No mass. Kidneys and ureters: Unremarkable. No solid mass. No hydronephrosis. Stomach and bowel: Dilated loops of small bowel with air-fluid levels may represent obstruction or ileus. Diverticulosis of the rectosigmoid. No jenny diverticulitis Appendix: No evidence of appendicitis. Intraperitoneal space: Unremarkable. No free air. No significant fluid collection. Urinary bladder: Unremarkable. No mass. Reproductive: Unremarkable as visualized. Lymph nodes: Pathologic node anterior to the kristen 2.65 x 2 cm (series 8, image 25).. Bones/joints: Median sternotomy Soft tissues: Anterior mesh herniorrhaphy. Herniorrhaphy in the anterior left hemipelvis Other findings: The left rectus muscle is atrophic IMPRESSION: 1. No evidence of pulmonary embolus to the segmental level. 2. Unruptured aneurysm of the ascending aorta 4 cm. 3. No dissection of the aorta. 4. Aortic valve replacement. 5. Tricuspid valve replacement. 6. Pathologic node anterior to the kristen 2.65 x 2 cm (series 8, image 25).. 7. Gallstones in the gallbladder. 8. Lobulated liver consistent with cirrhosis. 9. Dilated loops of small bowel with air-fluid levels may represent obstruction or ileus. 10. Borderline splenomegaly 13 cm.. Dictated and Authenticated by: Yao Lanier MD. Orderin Kathryn Broussard MD
[2024-05-18] MEDS: HYDROmorphone 2 MG/ML SYR 0.5 MG IVP (15:23)
[2024-05-18] MEDS: Metoprolol CR 50 MG TABCR 100 MG PO (15:23)
[2024-05-18] MEDS: hydrALAZINE 20 MG/ML VIAL IVP (15:24)
[2024-05-18] MEDS: FAMOTIDINE 20 MG in Normal Saline 100 ML 400 MG IVPB (15:25)
[2024-05-18 16:06] LABS: Troponin I 34 ng/L (<or=51)
--- NOTE | 2024-05-18 16:06 | W.EDPROG ---
Date of service: 05/18/24 Time of Service: 16:06 Medical Decision Making This dictation utilizes [id number] dictation software and may contain unedited grammatical errors. Patient seen in signout from Aarti Peralta PA-C, please see her complete note. Essentially this 58-year-old female who is well-known to the department with end-stage renal disease on dialysis presents with chest pain and a known thoracic aortic aneurysm, she has hypertensive emergency-missed 2 doses of her blood pressure medicine today currently and was started on nicardipine drip shortly before signout due to no response to hydralazine, she has pending [facility] cardiology consult with likely [facility] nephrology consult to follow, she is a [facility] patient and cannot be seen at [place] or [facility] facilities due to dialysis capability. She could possibly be presented to [facility] but has been admitted at [facility] and [facility] in the past. Her CTA of the chest abdomen and pelvis to examine for aortic dissection was negative, questions ileus. She received dialysis yesterday. Patients' medical history: History of GI bleeding, history of attempted suicide, chronic abdominal pain, history of diverticulitis and hemorrhoids, history of aortic valve replacement, history of kidney transplant, COPD, cirrhosis, tricuspid regurgitation, hypertension. Family and social history: [ ]. Pertinent exam findings / vital signs include please see Aarti Peralta note for full evaluation- BP is responding to nicardipine drip at 1610- SBP 163. Differential / pathologies of concern include hypertensive emergency. Diagnostic studies of: -Reviewed prior studies, patient has chronic leukopenia, chronic anemia -CMP shows a creatinine of 4.8 -Stable troponins -Lipase negative -COVID/flu/RSV negative -CTA of the chest abdomen and pelvis shows no change in her known aortic dissection, questions a small ileus. -EKG shows EKG shows sinus rhythm at 69 bpm with an unchanged right bundle branch block and no signs of ischemic changes with normal intervals Interventions of: -[facility] Cardiology/Nephrology consult for chest pain- 1649- Dr. Wasserman & Cardiology - no acute concerns from a Cardiology standpoint with negative troponins and benign EKG, nephrology does not see a need for emergent dialysis- facility is listening for 05/19 (tomorrow). Nephrology recommends giving patients minoxidil, prazosin, they have records she takes 10mg amlodipine, could give this as well and wean off the nicardipine drip. Patient still has symptomatic hypertensive emergency likely needs admission, will pursue other facilities. -Re-evaluated patient @ 1710, she is on 2L NC O2, which she uses intermittently, she states her chest pain is not completely resolved. She is eating a turkey sandwich tolerating PO. -Placed further calls out to [facility], [facility], [facility]- [place] [facility] [place] and accepts patient to ICU @ 1859, accepting Dr. Santana- [facility] had already declined without P2P. Patient is off nicardipine drip with BP ~160s SBP, can likely go by basic level. ED Course/Assessment/Plan: 58-year-old female presents with uncontrolled hypertension after missing doses of her antihypertensive last night, having chest pain, was given her home dose metoprolol and 1 dose of hydralazine here without response of blood pressure, she was placed on nicardipine drip which significantly lowered her chest pain but she still is having lingering chest pain, cardiology at [facility] is unconcerned with her EKG and stable troponins, their restaurant mgr recommended starting p.o. medications, I did give her her 2.5 mg minoxidil, I was saving her prazosin for around bedtime, there is a report that the patient is possibly on 10 mg amlodipine or possibly was prescribed this at a prior visit but has not picked it up. She was weaned off nicardipine drip with systolics remaining stable multiple rechecks systolic 160s, is on oxygen which she uses intermittently at baseline, she was accepted to ICU with hopeful downgrade to floor admission at the [facility] [place]. Disposition of Hypertensive Emergency. Patient verbalized understanding of the plan and return to ED criteria and engaged in shared decision making. Medical Records Medical records reviewed: Yes I reviewed the patient's medical records. Imaging Data Radiologic Study: Attestation: I personally reviewed and interpreted this imaging study as follows: Imaging: CT Scan Radiologist's impression: Exam: CTA Chest With Contrast CTA Abdomen and Pelvis With Contrast Exam date and time: 05/18/2024 2:01 PM Age: 58 years old Clinical indication: Other: Abdomen pain; Abdominal pain; Generalized; Abd/pelvic pain HX valve replacement x's 2 TECHNIQUE: Imaging protocol: Computed tomographic angiography of the chest with contrast. Exam focused on the arteries. Computed tomographic angiography of the abdomen and pelvis with contrast. Exam focused on the arteries. 3D rendering (Not supervised by radiologist): MIP and/or 3D reconstructed images were created by the technologist. Radiation optimization: All CT scans at this facility use at least one of these dose optimization techniques: automated exposure control; mA and/or kV adjustment per patient size (includes targeted exams where dose is matched to clinical indication); or iterative reconstruction. Contrast material: OMNI 350; Contrast volume: 80 ml; Contrast route: INTRAVENOUS (IV); COMPARISON: CT CHEST PE CTA 12/08/2023 1:21 PM FINDINGS: VASCULATURE: Pulmonary arteries: No evidence of pulmonary embolus to the segmental level. Aorta: Unruptured aneurysm of the ascending aorta 4 cm. No dissection of the aorta. Celiac trunk and mesenteric arteries: No occlusion or significant stenosis. Renal arteries: No occlusion or significant stenosis. Right iliac arteries: No occlusion or significant stenosis. Left iliac arteries: No occlusion or significant stenosis. CHEST: Lungs: Paraseptal emphysematous changes. Mild panlobular emphysematous changes Pleural spaces: Unremarkable. No pneumothorax. No pleural effusion. Heart: Aortic valve replacement. Tricuspid valve replacement. There is calcification of the mitral valve annulus. ABDOMEN AND PELVIS: Liver: Lobulated liver consistent with cirrhosis. Gallbladder and biliary ducts: Gallstones in the gallbladder. Pancreas: Unremarkable. No mass. No ductal dilation. Spleen: Borderline splenomegaly 13 cm.. Adrenal glands: Unremarkable. No mass. Kidneys and ureters: Unremarkable. No solid mass. No hydronephrosis. Stomach and bowel: Dilated loops of small bowel with air-fluid levels may represent obstruction or ileus. Diverticulosis of the rectosigmoid. No jenny diverticulitis Appendix: No evidence of appendicitis. Intraperitoneal space: Unremarkable. No free air. No significant fluid collection. Urinary bladder: Unremarkable. No mass. Reproductive: Unremarkable as visualized. Lymph nodes: Pathologic node anterior to the kristen 2.65 x 2 cm (series 8, image 25).. Bones/joints: Median sternotomy Soft tissues: Anterior mesh herniorrhaphy. Herniorrhaphy in the anterior left hemipelvis Other findings: The left rectus muscle is atrophic IMPRESSION: 1. No evidence of pulmonary embolus to the segmental level. 2. Unruptured aneurysm of the ascending aorta 4 cm. 3. No dissection of the aorta. 4. Aortic valve replacement. 5. Tricuspid valve replacement. 6. Pathologic node anterior to the kristen 2.65 x 2 cm (series 8, image 25).. 7. Gallstones in the gallbladder. 8. Lobulated liver consistent with cirrhosis. 9. Dilated loops of small bowel with air-fluid levels may represent obstruction or ileus. 10. Borderline splenomegaly 13 cm.. Dictated and Authenticated by: Yao Lanier MD. Lab Data Lab results reviewed: Yes I reviewed the patient's lab results. Labs: Laboratory Tests Range/Units 05/18/24 05/18/24 05/18/24 12:34 13:13 13:35 WBC (4.4-10.8) 10^3/uL 3.42 L RBC (3.93-5.22) 10^6/uL 3.45 L Hgb (11.2-15.7) g/dL 10.2 L Hct (36.0-46.0) % 32.4 L MCV (80-95) fL 94 MCH (27.0-33.0) pg 29.6 MCHC (32.0-36.0) % 31.5 L RDW (11.7-14.6) % 13.7 Plt Count (130-400) 10^3/uL 92 L MPV (8.0-11.0) fL 13.3 H Immature Gran % % 0.3 Neutrophils % % 76.9 Lymphocytes % % 7.6 Monocytes % % 5.8 Eosinophils % % 8.2 Basophils % % 1.2 Nucleated RBC % (0.0-0.3) % 0.0 Absolute Neutrophils (1.2-6.7) 10^3/uL 2.63 Absolute Lymphocytes (1.2-3.4) 10^3/uL 0.26 L Absolute Monocytes (0.1-0.8) 10^3/uL 0.20 Absolute Eosinophils (0.0-0.7) 10^3/uL 0.28 Absolute Basophils (0.0-0.2) 10^3/uL 0.04 Sodium (136-145) mmol/L 140 Potassium (3.5-5.1) mmol/L 4.1 Chloride (98-107) mmol/L 99 Carbon Dioxide (21.0-32.0) mmol/L 33.9 H Anion Gap (3-11) mmol/L 7.1 BUN (7-18) mg/dL 28 H Creatinine (0.55-1.02) mg/dL 4.8 H* Est GFR (CKD-EPI 2020) (mL/min/1.73m2) 9.82 Glucose (74-106) mg/dL 107 H Calcium (8.5-10.1) mg/dL 9.2 Total Bilirubin (0.2-1.0) mg/dL 0.6 AST (15-37) U/L 20 ALT (14-59) U/L 22 Alkaline Phosphatase (46-116) U/L 201 H Troponin I (<or=51) ng/L 37 39 Total Protein (6.4-8.2) g/dL 7.0 Albumin (3.4-5.0) g/dL 3.6 Lipase (<78) U/L 43 COVID-19 Source Nasopharynx SARS-CoV-2 (PCR) (Negative) Negative Influenza Type A (PCR) (Negative) Negative Influenza Type B (PCR) (Negative) Negative RSV (PCR) (Negative) Negative Range/Units 05/18/24 15:35 WBC (4.4-10.8) 10^3/uL RBC (3.93-5.22) 10^6/uL Hgb (11.2-15.7) g/dL Hct (36.0-46.0) % MCV (80-95) fL MCH (27.0-33.0) pg MCHC (32.0-36.0) % RDW (11.7-14.6) % Plt Count (130-400) 10^3/uL MPV (8.0-11.0) fL Immature Gran % % Neutrophils % % Lymphocytes % % Monocytes % % Eosinophils % % Basophils % % Nucleated RBC % (0.0-0.3) % Absolute Neutrophils (1.2-6.7) 10^3/uL Absolute Lymphocytes (1.2-3.4) 10^3/uL Absolute Monocytes (0.1-0.8) 10^3/uL Absolute Eosinophils (0.0-0.7) 10^3/uL Absolute Basophils (0.0-0.2) 10^3/uL Sodium (136-145) mmol/L Potassium (3.5-5.1) mmol/L Chloride (98-107) mmol/L Carbon Dioxide (21.0-32.0) mmol/L Anion Gap (3-11) mmol/L BUN (7-18) mg/dL Creatinine (0.55-1.02) mg/dL Est GFR (CKD-EPI 2020) (mL/min/1.73m2) Glucose (74-106) mg/dL Calcium (8.5-10.1) mg/dL Total Bilirubin (0.2-1.0) mg/dL AST (15-37) U/L ALT (14-59) U/L Alkaline Phosphatase (46-116) U/L Troponin I (<or=51) ng/L 34 Total Protein (6.4-8.2) g/dL Albumin (3.4-5.0) g/dL Lipase (<78) U/L COVID-19 Source SARS-CoV-2 (PCR) (Negative) Influenza Type A (PCR) (Negative) Influenza Type B (PCR) (Negative) RSV (PCR) (Negative) Quality:SDOH Health Related Social Needs: Health related social needs problems related to housing/economic circumstances (Z59.89), problems with daily activities (Z73.9), feeling lonely/isolated (Z60.8) Discharge Plan Disposition Patient Disposition: Transfer-Acute Inpatient Care Specific Acute Inpt Facility: Other Condition: Stable Discharge Details Clinical Impression: Hypertensive emergency Primary Care Provider: Chano Neves ED Provider: Bhanu Hamilton Home Meds and New Rx's Prescriptions: No Action sucralfate [Carafate] 1 gram tablet 1 g PO QACHS Qty: 120 5RF tramadol 50 mg tablet 50 mg PO Q6H PRN (Reason: pain) Qty: 15 0RF minoxidil 2.5 mg tablet 2.5 mg PO QHS Qty: 90 3RF doxycycline hyclate 100 mg capsule 100 mg PO BID sertraline 50 mg tablet 50 mg PO DAILY Qty: 90 0RF albuterol sulfate [Ventolin HFA] 90 mcg/actuation HFA aerosol inhaler 2 puff inhalation QID PRN (Reason: shortness of breath or wheezing) Qty: 8.5 5RF atorvastatin 40 mg tablet 40 mg PO DAILY Pipe Hollis 160-9-4.8 mcg/actuation HFA aerosol inhaler 2 inh inhalation BID mupirocin 2 % ointment 1 applic topical TID prazosin 1 mg capsule 1 mg PO QHS Qty: 30 2RF albuterol sulfate 2.5 mg /3 mL (0.083 %) solution for nebulization 2.5 mg inhalation Q6H PRN (Reason: shortness of breath or wheezing) Qty: 3 0RF Rx Instructions: [facility] (ESTEBAN) Aerochamber MV Spacer MISCELLANEOUS prednisone 20 mg tablet 40 mg PO ONCE Qty: 11 0RF Rx Instructions: take 2 tablets for 3 days, take 1 tablet for 3 days, take 1/2 tablet for 3 days sevelamer carbonate 800 mg tablet 1,600 mg PO AC Patient Comments: TAKE 2 TABLETS BY MOUTH THREE TIMES DAILY WITH MEALS trazodone 100 mg tablet 100 mg PO QHS PRN metoprolol succinate 100 mg tablet extended release 24 hr 100 mg PO DAILY Patient Comments: TAKE 1 TABLET BY MOUTH EVERY DAY amlodipine 10 mg tablet 10 mg PO DAILY Patient Comments: Pt states she does not believe she has picked up/started this prescription yet 05/18/24. Per [facility] - pt is to take 10 mg of amlodipine daily 05/18/24
[2024-05-18] MEDS: Minoxidil 2.5 MG TAB PO (17:54)
== END 2024-05-18 19:49 | disposition short-term general hospital (02) ==
PROVIDERS: Physician Assistant; Emergency Provider Physician Assistant; PCP Family Medicine
DX: R07.89 Other chest pain (principal); J44.9 Chronic obstructive pulmonary disease, unspecified; Z99.81 Dependence on supplemental oxygen; Z59.89 Other problems related to housing and economic circumstances; Z73.9 Problem related to life management difficulty, unspecified; Z60.8 Other problems related to social environment; F17.210 Nicotine dependence, cigarettes, uncomplicated; N18.6 End stage renal disease; I16.1 Hypertensive emergency
CPT/HCPCS: 00123; 36415; 71275; 80053; 83690; 87637; 93005; 96365; 96366; 96367; 96375; 96376; 99285; 74174; 84484; 85025; 93010; J0360; J0780; J1171; J2270; J2404; J3490

== ENCOUNTER 2024-06-07 14:07 | Emergency (ER) | payer OTHER, SELFPAY ==
[2024-06-07] VITALS (19 sets, daily range): BP systolic 167–187; BP diastolic 76–136; PULSE 60–77; RESP 14–24; TEMP 36–37.1; O2SAT 95–99
--- NOTE | 2024-06-07 14:00 | RT.EKG_ITS ---
APPROVED REPORT Exam: Resting ECG Reason for Exam: dyspnea Patient Location: E HR:73 bpm ECG Measurements Heart Rate 73 AXIS ND 70 P 0 QRSd 161 QRS 75 QT 491 T 18 QTc 540 Conclusion Sinus rhythm...normal P axis, V-rate 60- 99 Right bundle branch block...QRSd>120, terminal axis(90,270)
--- NOTE | 2024-06-07 14:30 | DI.RAD_ITS ---
Exam(s) XR PORTABLE CHEST AP EXAM: XR PORTABLE CHEST AP CLINICAL HISTORY: cough. TECHNIQUE: 2D digital imaging was performed. COMPARISON: CR,XR XR PORTABLE CHEST AP from 04/28/2024 FINDINGS: Single AP portable view. Again noted are sternotomy wires and there are 2 prosthetic cardiac valves which are probably aortic and tricuspid Mild cardiomegaly again noted. Mediastinum is not widened. There are no confluent infiltrates nor obvious pleural effusions although there is slightly increased markings both lung knox. No evidence of pulmonary obvious edema. IMPRESSION: As above. Recommend nonportable PA and lateral views when clinically possible DATA REPOSITORY: RADIATION DOSE DELIVERED:
[2024-06-07] MEDS: Doxycycline Hyclate 100 MG CAP PO (14:58)
[2024-06-07] MEDS: Albuterol/Ipratropium 3 ML UPD VIAL UPD ×2 (14:58→16:12)
[2024-06-07] MEDS: methylPREDNISolone SUCC 125 MG VIAL IVP (14:58)
[2024-06-07 15:17] LABS: Abs Immature Grans 0.01 10^3/uL (0.0-0.06); Absolute Basophil Count 0.03 10^3/uL (0.0-0.2); Absolute Eosinophil Count 0.21 10^3/uL (0.0-0.7); Absolute Lymphocyte Count 0.41 10^3/uL (1.2-3.4); Absolute Monocyte Count 0.34 10^3/uL (0.1-0.8); Eosinophils % 6.8 %; HCT 38.5 % (36.0-46.0); HGB 11.9 g/dL (11.2-15.7); Immature Grans % 0.3 %; Lymphocytes % 13.2 %; MCH 29.5 pg (27.0-33.0); MCHC 30.9 % (32.0-36.0); MCV 95 fL (80-95); MPV 11.5 fL (8.0-11.0); Neutrophils % 67.7 %; RBC 4.04 10^6/uL (3.93-5.22); RDW 15.2 % (11.7-14.6); RDW-SD 51.3 fL
[2024-06-07 15:25] LABS: ALT 22 U/L (14-59); AST 25 U/L (15-37); Albumin 3.8 g/dL (3.4-5.0); Alkaline Phosphatase 163 U/L (46-116); Anion Gap 4.6 mmol/L (3-11); BUN 9 mg/dL (7-18); Bilirubin, Total 0.8 mg/dL (0.2-1.0); CO2 38.4 mmol/L (21.0-32.0); CREATININE 2.8 mg/dL (0.55-1.02); Calcium 8.7 mg/dL (8.5-10.1); Chloride 98 mmol/L (98-107); Estimated GFR 18.75 (mL/min/1.73m2); Glucose 89 mg/dL (74-106); Potassium 3.9 mmol/L (3.5-5.1); Sodium 141 mmol/L (136-145); Total Protein 7.4 g/dL (6.4-8.2); Troponin I 46 ng/L (<or=51)
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
[2024-06-07 15:40] LABS: Platelet Count 90 10^3/uL (130-400)
[2024-06-07 16:29] LABS: Troponin I 42 ng/L (<or=51)
== END 2024-06-07 16:49 | disposition home or self-care (01) ==
PROVIDERS: Emergency Provider Student in an Organized Health Care Education/Training Program; PCP Family Medicine
DX: J44.1 Chronic obstructive pulmonary disease with (acute) exacerbation (principal); I45.19 Other right bundle-branch block; I12.0 Hypertensive chronic kidney disease with stage 5 chronic kidney disease or end stage renal disease; N18.6 End stage renal disease; Z95.2 Presence of prosthetic heart valve; Z94.0 Kidney transplant status; Z99.2 Dependence on renal dialysis
CPT/HCPCS: 80053; 93005; 94640; 96374; 99285; 71045; 83735; 84484; 85025; 93010; J2919; J7620

== ENCOUNTER 2024-07-04 16:02 | Emergency (ER) | payer MEDICARE, SELFPAY ==
--- NOTE | 2024-07-04 16:00 | RT.EKG_ITS ---
APPROVED REPORT Exam: Resting ECG Reason for Exam: dyspnea Patient Location: E HR:81 bpm ECG Measurements Heart Rate 81 AXIS VT 172 P -27 QRSd 152 QRS 71 QT 435 T 2 QTc 506 Conclusion Sinus rhythm...normal P axis, V-rate 60- 99 Right bundle branch block...QRSd>120, terminal axis(90,270) Sinus rhythm with RBBB. No change from prior 06/07/24. WD
[2024-07-04 16:16] VITALS: BP 179/89; PULSE 81; RESP 22; O2SAT 97
[2024-07-04] MEDS: Albuterol/Ipratropium 3 ML UPD VIAL UPD ×2 (16:30→20:22)
--- NOTE | 2024-07-04 16:30 | DI.RAD_ITS ---
Exam(s) XR PORTABLE CHEST AP EXAM: XR PORTABLE CHEST AP CLINICAL HISTORY: SOB. TECHNIQUE: 2D digital imaging was performed. COMPARISON: CR XR PORTABLE CHEST AP from 06/07/2024 FINDINGS: Single AP portable view. Again noted is cardiomegaly, sternotomy wires and prosthetic cardiac valves which are probably aortic and tricuspid. The mediastinum is not widened. There is a pulmonary venous hypertension pattern. No jenny airspace pulmonary edema. No obvious ple ural effusions. IMPRESSION: Cardiomegaly. Prosthetic cardiac valves. Pulmonary venous hypertension pattern. DATA REPOSITORY: RADIATION DOSE DELIVERED:
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
[2024-07-04 18:20] LABS: Abs Immature Grans 0.04 10^3/uL (0.0-0.06); Absolute Basophil Count 0.03 10^3/uL (0.0-0.2); Absolute Eosinophil Count 0.38 10^3/uL (0.0-0.7); Absolute Lymphocyte Count 0.53 10^3/uL (1.2-3.4); Absolute Monocyte Count 0.62 10^3/uL (0.1-0.8); Absolute Neutrophil Count 3.35 10^3/uL (1.2-6.7); Basophils % 0.6 %; Eosinophils % 7.7 %; HCT 32.6 % (36.0-46.0); HGB 10.1 g/dL (11.2-15.7); Immature Grans % 0.8 %; Lymphocytes % 10.7 %; MCH 29.6 pg (27.0-33.0); MCV 96 fL (80-95); Monocytes % 12.5 %; Neutrophils % 67.7 %; RBC 3.41 10^6/uL (3.93-5.22); RDW 15.9 % (11.7-14.6); RDW-SD 55.4 fL; WBC 4.95 10^3/uL (4.4-10.8)
[2024-07-04 18:32] LABS: Diff Comment PLT Morph Reviewed; Platelet Count 97 10^3/uL (130-400); RBC Morphology Normal
[2024-07-04 18:38] LABS: ALT 28 U/L (14-59); AST 25 U/L (15-37); Albumin 3.6 g/dL (3.4-5.0); Alkaline Phosphatase 192 U/L (46-116); Anion Gap 5.9 mmol/L (3-11); BUN 32 mg/dL (7-18); Bilirubin, Total 0.8 mg/dL (0.2-1.0); CO2 34.1 mmol/L (21.0-32.0); Calcium 8.6 mg/dL (8.5-10.1); Chloride 101 mmol/L (98-107); Estimated GFR 8.52 (mL/min/1.73m2); Glucose 90 mg/dL (74-106); Potassium 4.7 mmol/L (3.5-5.1); Sodium 141 mmol/L (136-145)
[2024-07-04 18:39] LABS: CREATININE 5.4 mg/dL (0.55-1.02)
[2024-07-04] MEDS: MAGNESIUM SULFATE 2 GM/50 ML BAG IV_INF (18:46)
[2024-07-04] MEDS: methylPREDNISolone SUCC 125 MG VIAL IVP (18:46)
[2024-07-04] MEDS: Ondansetron 4 MG/2 ML VIAL IVP (19:30)
[2024-07-04 19:57] LABS: COVID-19 PCR Negative (Negative); Influenza A PCR Negative (Negative); Influenza B PCR Negative (Negative); RSV PCR Negative (Negative)
[2024-07-04 19:59] LABS: Source Nasopharynx
[2024-07-04] MEDS: Doxycycline Hyclate 100 MG CAP PO (20:22)
--- NOTE | 2024-07-06 18:35 | W.EDPROG ---
Date of service: 07/06/24 Time of Service: 18:36 Medical Decision Making Patient contacted the emergency department stating that she had run out of DuoNebs, and this was not refilled when she came into the ER. Unfortunately Dr. Ann is no longer here, and so I did send a prescription for additional DuoNeb refills for the patient to her [facility] pharmacy. Quality:SDOH Health Related Social Needs: Health related social needs problems related to housing/economic circumstances (Z59.89), problems with daily activities (Z73.9), feeling lonely/isolated (Z60.8) Discharge Plan Disposition Patient Disposition: Home Condition: Stable Discharge Details Clinical Impression: Acute exacerbation of chronic obstructive pulmonary disease (COPD), ESRD on dialysis, Hypertension Primary Care Provider: Chano Neves ED Provider: Rama Ann Home Meds and New Rx's Prescriptions: New doxycycline hyclate 100 mg capsule 100 mg PO BID Qty: 14 0RF prednisone 10 mg tablet 10 mg PO DIRECTED Qty: 39 0RF Rx Instructions: see taper instructions - 60mg x 3 days, 40mg x 3day, 20mg x 3days, 10mg x 3 days ipratropium-albuterol 0.5 mg-3 mg(2.5 mg base)/3 mL solution for nebulization 3 ml IH Q6H Qty: 90 0RF No Action sucralfate [Carafate] 1 gram tablet 1 g PO QACHS Qty: 120 5RF tramadol 50 mg tablet 50 mg PO Q6H PRN (Reason: pain) Qty: 15 0RF minoxidil 2.5 mg tablet 2.5 mg PO QHS Qty: 90 3RF sertraline 50 mg tablet 50 mg PO DAILY Qty: 90 0RF prednisone 5 mg tablet 5 mg PO DIRECTED Qty: 49 0RF Rx Instructions: 40 mg x 2 days, 30 mg x 2 days, 20 mg x 2 days, 15 mg x 2 days, 10 mg x 2 days, 5 mg x 2 days, 2.5 mg x 2 days, then stop. albuterol sulfate [Ventolin HFA] 90 mcg/actuation HFA aerosol inhaler 2 puff inhalation QID PRN (Reason: shortness of breath or wheezing) Qty: 8.5 5RF atorvastatin 40 mg tablet 40 mg PO DAILY Pipe Aerosphere 160-9-4.8 mcg/actuation HFA aerosol inhaler 2 inh inhalation BID mupirocin 2 % ointment 1 applic topical TID prazosin 1 mg capsule 1 mg PO QHS Qty: 30 2RF apixaban 2.5 mg tablet 2.5 mg PO BID albuterol sulfate 2.5 mg /3 mL (0.083 %) solution for nebulization 2.5 mg inhalation Q6H PRN (Reason: shortness of breath or wheezing) Qty: 3 0RF Rx Instructions: [facility] Aerochamber MV Spacer MISCELLANEOUS sevelamer carbonate 800 mg tablet 1,600 mg PO AC Patient Comments: TAKE 2 TABLETS BY MOUTH THREE TIMES DAILY WITH MEALS trazodone 100 mg tablet 100 mg PO QHS PRN metoprolol succinate 100 mg tablet extended release 24 hr 100 mg PO DAILY Patient Comments: TAKE 1 TABLET BY MOUTH EVERY DAY amlodipine 10 mg tablet 10 mg PO DAILY Patient Comments: Pt states she does not believe she has picked up/started this prescription yet 05/18/24. Per [facility] - pt is to take 10 mg of amlodipine daily 05/18/24 Discharge Instructions Instructions: Exacerbation of COPD (DC), High Blood Pressure ED Additional Instructions: Take antibiotics as prescribed. Take prednisone taper. Please follow-up with your doctor. Referrals: Chano Neves MD [Primary Care Provider] - 3 days Discharge Data Discharge Date/Time-TO BE ENTERED AT DEPARTURE: 07/04/24 20:44 Discharge Physician: Rama Ann
== END 2024-07-04 20:44 | disposition home or self-care (01) ==
PROVIDERS: Emergency Provider Emergency Medicine Emergency Medical Services; PCP Family Medicine
DX: J44.1 Chronic obstructive pulmonary disease with (acute) exacerbation (principal); N18.6 End stage renal disease; Z99.2 Dependence on renal dialysis; I10 Essential (primary) hypertension; Z59.89 Other problems related to housing and economic circumstances; Z73.9 Problem related to life management difficulty, unspecified; Z60.8 Other problems related to social environment
CPT/HCPCS: 99291; 00123; 80053; 87040; 87637; 93005; 94640; 96365; 96375; 71045; 85025; 93010; J2405; J2919; J3475; J7620

== ENCOUNTER 2024-07-20 18:06 | Emergency (ER) | payer MEDICARE, SELFPAY ==
[2024-07-20] VITALS (39 sets, daily range): BP systolic 95–145; BP diastolic 45–65; PULSE 35–75; RESP 8–32; TEMP 36.7; O2SAT 93–98
--- NOTE | 2024-07-20 18:15 | RT.EKG_ITS ---
APPROVED REPORT Exam: Resting ECG Reason for Exam: sob Patient Location: E HR:63 bpm ECG Measurements Heart Rate 63 AXIS HI 173 P 5 QRSd 159 QRS 59 QT 467 T 0 QTc 478 Conclusion Sinus rhythm. 63 RBBB no change from prior
--- NOTE | 2024-07-20 18:15 | DI.RAD_ITS ---
Exam(s) XR PORTABLE CHEST AP EXAM: XR PORTABLE CHEST AP CLINICAL HISTORY: sob. TECHNIQUE: 2D digital imaging was performed. COMPARISON: CR XR PORTABLE CHEST AP from 07/04/2024 FINDINGS: Single AP portable view. Again noted is cardiomegaly, sternotomy wires, and 2 prosthetic cardiac valves which are probably aor tic and tricuspid valves. The mediastinum is not widened. Oxygen tubing noted There are no confluent infiltrates but there does appear to be M mild pulmonary venous hypertension p attern. There are no Lluvia B lines but there is mild blunting of the costophrenic angles indicating small bilateral pleural effusions. IMPRESSION: Cardiomegaly. Sternotomy wires. Prosthetic cardiac valves. Mild CHF DATA REPOSITORY: RADIATION DOSE DELIVERED:
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
[2024-07-20 18:56] LABS: BE (Venous) 13 mmol/L (-2-3); HCO3 (Venous) 39 mmol/L (23-28); O2 Sat (Venous) 78 %; TCO2 (Venous) 36 mmol/L (24-29); pH (Venous) 7.36 (7.31-7.41); pO2 (Venous) 44 mmHg
[2024-07-20 18:59] LABS: pCO2 (Venous) 69 mmHg (41-51)
[2024-07-20 19:00] LABS: Abs Immature Grans 0.02 10^3/uL (0.0-0.06); Absolute Basophil Count 0.02 10^3/uL (0.0-0.2); Absolute Eosinophil Count 0.25 10^3/uL (0.0-0.7); Absolute Lymphocyte Count 0.57 10^3/uL (1.2-3.4); Absolute Neutrophil Count 2.26 10^3/uL (1.2-6.7); Basophils % 0.6 %; Eosinophils % 6.9 %; HCT 35.2 % (36.0-46.0); HGB 10.7 g/dL (11.2-15.7); Immature Grans % 0.6 %; Lymphocytes % 15.7 %; MCH 30.6 pg (27.0-33.0); MCHC 30.4 % (32.0-36.0); MCV 101 fL (80-95); MPV 12.5 fL (8.0-11.0); Monocytes % 13.8 %; Neutrophils % 62.4 %; RDW 18.7 % (11.7-14.6); RDW-SD 67.2 fL; WBC 3.62 10^3/uL (4.4-10.8)
[2024-07-20 19:11] LABS: Anion Gap 2.7 mmol/L (3-11); BUN 24 mg/dL (7-18); CO2 38.3 mmol/L (21.0-32.0); Calcium 8.5 mg/dL (8.5-10.1); Chloride 94 mmol/L (98-107); Estimated GFR 8.47 (mL/min/1.73m2); Glucose 114 mg/dL (74-106); Potassium 4.8 mmol/L (3.5-5.1); Sodium 135 mmol/L (136-145)
[2024-07-20 19:14] LABS: CREATININE 5.4 mg/dL (0.55-1.02)
[2024-07-20 19:20] LABS: Platelet Count 84 10^3/uL (130-400)
[2024-07-20 19:50] LABS: NT-proBNP > 35000 pg/mL (<300)
--- NOTE | 2024-07-20 20:19 | DI.VRAD_ITS ---
PROCEDURE INFORMATION: Exam: XR Chest Exam date and time: 07/20/2024 7:00 PM Age: 59 years old Clinical indication: Shortness of breath TECHNIQUE: Imaging protocol: Radiologic exam of the chest. Views: 1 view. COMPARISON: CR XR PORTABLE CHEST AP 07/04/2024 4:52 PM FINDINGS: Lungs: Pulmonary vascularity borderline redistributed. Pleural spaces: Possible trace bilateral pleural effusions. Heart/Mediastinum: It appears the patient is status post mitral valve replacement. No change cardiomegaly. Bones/joints: Status post median sternotomy. IMPRESSION: Probable trace bilateral pleural effusions. Possible early congestive heart failure. Dictated and Authenticated by: Althea Davis MD. Orderin Pita Barth MD
[2024-07-20 20:53] LABS: BE (Venous) 12 mmol/L (-2-3); HCO3 (Venous) 35 mmol/L (23-28); O2 Sat (Venous) > 99 %; TCO2 (Venous) 32 mmol/L (24-29); pCO2 (Venous) 45 mmHg (41-51); pO2 (Venous) 143 mmHg
[2024-07-20] MEDS: Albuterol/Ipratropium 3 ML UPD VIAL UPD (20:58)
[2024-07-20] MEDS: methylPREDNISolone SUCC 125 MG VIAL IVP (21:10)
== END 2024-07-21 00:06 | disposition home or self-care (01) ==
PROVIDERS: Emergency Provider Emergency Medicine; PCP Family Medicine
DX: J44.1 Chronic obstructive pulmonary disease with (acute) exacerbation (principal); I10 Essential (primary) hypertension; Z59.89 Other problems related to housing and economic circumstances; Z73.9 Problem related to life management difficulty, unspecified; Z60.8 Other problems related to social environment
CPT/HCPCS: 99284 ×2; 96374; 94640; 80048; 82805; 93005; 71045; 83880; 85025; 93010; J2919; J7620

== ENCOUNTER 2024-07-24 14:29 | Emergency (ER) | payer OTHER, SELFPAY ==
[2024-07-24] VITALS (21 sets, daily range): BP systolic 139–167; BP diastolic 77–117; PULSE 65–103; RESP 16–28; TEMP 36.3; O2SAT 94–98
[2024-07-24] MEDS: Albuterol/Ipratropium 3 ML UPD VIAL (14:54)
[2024-07-24] MEDS: Albuterol/Ipratropium 3 ML UPD VIAL UPD (15:13)
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
[2024-07-24] MEDS: predniSONE 20 MG TAB 60 MG PO (15:42)
[2024-07-24] MEDS: LORazepam 1 MG TAB PO (15:42)
== END 2024-07-24 16:57 | disposition home or self-care (01) ==
PROVIDERS: Emergency Provider Emergency Medicine; PCP Family Medicine
DX: J44.1 Chronic obstructive pulmonary disease with (acute) exacerbation (principal); F41.9 Anxiety disorder, unspecified; Z99.81 Dependence on supplemental oxygen; Z59.89 Other problems related to housing and economic circumstances; Z73.9 Problem related to life management difficulty, unspecified; Z60.8 Other problems related to social environment; N18.6 End stage renal disease; Z99.2 Dependence on renal dialysis
CPT/HCPCS: 99284 ×2; 94640; J7512; J7620

== ENCOUNTER 2024-08-03 17:40 | Emergency (ER) | payer MEDICARE, SELFPAY ==
[2024-08-03] VITALS (44 sets, daily range): BP systolic 137–187; BP diastolic 74–122; PULSE 71–91; RESP 5–28; TEMP 36.4; O2SAT 89–100
--- NOTE | 2024-08-03 17:15 | RT.EKG_ITS ---
APPROVED REPORT Exam: Resting ECG Reason for Exam: sob Patient Location: E HR:88 bpm ECG Measurements Heart Rate 88 AXIS MD 168 P 25 QRSd 151 QRS 47 QT 409 T 6 QTc 474 Conclusion Sinus rhythm, rate 88 RBBB, unchanged from priors PACs No STEMI, 1-2mm ST depression V4, new from priors
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
[2024-08-03 18:08] LABS: BE (Venous) 10 mmol/L (-2-3); HCO3 (Venous) 34 mmol/L (23-28); TCO2 (Venous) 31 mmol/L (24-29); pCO2 (Venous) 52 mmHg (41-51); pH (Venous) 7.42 (7.31-7.41); pO2 (Venous) 130 mmHg
[2024-08-03 18:11] LABS: Abs Immature Grans 0.04 10^3/uL (0.0-0.06); Absolute Basophil Count 0.03 10^3/uL (0.0-0.2); Absolute Eosinophil Count 0.41 10^3/uL (0.0-0.7); Absolute Lymphocyte Count 0.87 10^3/uL (1.2-3.4); Absolute Monocyte Count 0.88 10^3/uL (0.1-0.8); Basophils % 0.5 %; Eosinophils % 7.2 %; HCT 36.9 % (36.0-46.0); HGB 11.4 g/dL (11.2-15.7); Immature Grans % 0.7 %; Lymphocytes % 15.2 %; MCH 30.9 pg (27.0-33.0); MCHC 30.9 % (32.0-36.0); MCV 100 fL (80-95); Monocytes % 15.4 %; RBC 3.69 10^6/uL (3.93-5.22); RDW 19.1 % (11.7-14.6); RDW-SD 69.5 fL; WBC 5.73 10^3/uL (4.4-10.8)
[2024-08-03] MEDS: Albuterol/Ipratropium 3 ML UPD VIAL UPD ×2 (18:11→19:32)
[2024-08-03] MEDS: methylPREDNISolone SUCC 125 MG VIAL IVP (18:12)
[2024-08-03 18:45] LABS: Platelet Count 87 10^3/uL (130-400)
[2024-08-03 18:51] LABS: ALT 60 U/L (14-59); AST 52 U/L (15-37); Albumin 3.8 g/dL (3.4-5.0); Alkaline Phosphatase 154 U/L (46-116); Anion Gap 6.1 mmol/L (3-11); BUN 39 mg/dL (7-18); Bilirubin, Total 0.7 mg/dL (0.2-1.0); CO2 33.9 mmol/L (21.0-32.0); Calcium 8.7 mg/dL (8.5-10.1); Chloride 96 mmol/L (98-107); Estimated GFR 8.47 (mL/min/1.73m2); Glucose 70 mg/dL (74-106); Magnesium 1.7 mg/dL (1.8-2.4); Potassium 4.6 mmol/L (3.5-5.1); Sodium 136 mmol/L (136-145); Total Protein 6.9 g/dL (6.4-8.2)
[2024-08-03 18:55] LABS: CREATININE 5.4 mg/dL (0.55-1.02); Troponin I 91 ng/L (<or=51)
[2024-08-03 19:23] LABS: Troponin I 92 ng/L (<or=51)
--- NOTE | 2024-08-03 19:25 | DI.CT_ITS ---
Exam(s) CT CHEST/ABD/PEL WO EXAM: CT CHEST/ABD/PEL WO CLINICAL HISTORY: upper abd pain with SOB. TECHNIQUE: Imaging Protocol: Axial computed tomography images with coronal and sagittal reformatted images were created and reviewed. Computer aided detection (CAD) was utilized. CONTRAST MATERIAL: Noncontrast COMPARISON: CT CT THORAX ABD/PEL CTA from 05/18/2024 CR,XR XR PORTABLE CHEST AP from 07/20/2024 FINDINGS: CHEST: Pulmonary parenchyma: Mild motion artifact. No consolidation. No dominant measurable mass. Modera te centrilobular and paraseptal emphysematous changes greater in the upper lobes. Tracheobronchial tree: No bronchiectasis. No mucous plugging.No bronchial wall thickening. Pleura: No effusion or pneumothorax. Mediastinum: Within normal limits. Cardiovascular: The heart is markedly enlarged. Mitral annular and coronary artery calcifications ar e noted. The are aortic and tricuspid valve replacements. No pericardial effusion. The ascending ao rta measures 4.5 cm. Mild atherosclerotic calcification. Marked dilatation of the pulmonary arterie s consistent with pulmonary hypertension. The main pulmonary artery measures 5.1 cm. Bones: Unremarkable for age. No lytic or blastic lesions.No compression fractures. Sternal wires. Soft tissues: Unremarkable. ABDOMEN and PELVIS: Liver: Nodular contour consistent with cirrhosis. No suspicious mass. The portal vein is prominen t consistent with portal hypertension. Gallbladder and biliary tract: Cholelithiasis again noted. No wall thickening. No biliary dilatatio n. Pancreas: Normal density, no abnormal calcifications or inflammatory process. Spleen: Enlarged. Kidneys: Severely atrophic.. No radiodense stones. No obstructive uropathy. No suspicious masses se en. Adrenal glands: No masses seen. Aorta: Severe atherosclerotic calcification. Mild dilatation of the distal abdominal aorta to 2.7 cm, unchanged. 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 Lymph nodes: Within normal limits. Soft tissues: Edema throughout the soft tissues consistent with anasarca. Upper anterior midline her ann repair with mesh in place. Chronic asymmetry of the rectus abdominus muscles, markedly thinned o n the left. Bladder: Empty, not evaluated. Bowel: Extensive diverticulosis. No evidence of diverticulitis. Mildly dilated fluid-filled loops o f small bowel without visible transition point. Peritoneal cavity: Small amount of fluid in the low pelvis. No focal collection. No mesenteric infl ammatory response. No free air. Bones: Unremarkable for age. Reproductive organs: Hysterectomy. IMPRESSION: No acute abnormality in the chest. Marked cardiomegaly. Emphysema. Cirrhotic liver. Splenomegaly. Anasarca. Trace fluid in the low pelvis. Mild small bowel dilatation, nonspecific. Cholelithiasis. No evidence of acute cholecystitis. The preliminary [facility] report was reviewed. RADIATION DOSE DELIVERED: Total DLP DATA REPOSITORY: All CT scans at this facility are submitted to the National Radiology Data Registry (NRDR) Dose Index Registry (DIR) with the [employer] (A[employer]). RADIATION OPTIMIZATION: All CT scans at this facility use at least one of these dose optimization te chniques: automated exposure control; mA and/or kV adjustment per patient size (includes targeted exa ms where dose is matched to clinical indication); or iterative reconstruction.
[2024-08-03] MEDS: MAGNESIUM SULFATE 1 GM/100 ML BAG IV_INF (20:15)
--- NOTE | 2024-08-03 20:15 | DI.[facility]_ITS ---
PROCEDURE INFORMATION: Exam: CT Chest Without Contrast; Diagnostic Exam date and time: 08/03/2024 7:12 PM Age: 59 years old Clinical indication: Other: Upper abd pain with SOB TECHNIQUE: Imaging protocol: Diagnostic computed tomography of the chest without contrast. 3D rendering (Not supervised by radiologist): MIP and/or 3D reconstructed images were created by the technologist. COMPARISON: CT THORAX ABD/PEL CTA 05/18/2024 2:01 PM FINDINGS: Tubes, catheters and devices: There are sternal wires consistent with previous sternotomy incision. Lungs: Moderate centrilobular emphysematous changes are present. The lungs are hyperinflated, consistent with underlying small airways disease. Scattered patchy ground-glass opacities within the lungs. These findings are nonspecific and may represent hypoventilatory change,edema, hemorrhage, or an infectious/inflammatory process (acute or chronic). Pleural spaces: No pneumothorax. No pleural effusion. Heart: There is pronounced cardiomegaly. There is a tricuspid valve replacement. There is calcification of the cardiac mitral valve annulus. Coronary arteries: There is severe atherosclerotic calcification of the coronary arteries. Lymph nodes: Mild enlargement of the paratracheal and precarinal lymph nodes without definitive lymphadenopathy. Vasculature: The aorta demonstrates mild atherosclerotic calcification. Mild atherosclerosis of the great vessels. The pulmonary artery is severely enlarged at 4.6 cm consider pulmonary hypertension. The aorta demonstrates moderate atherosclerotic calcification. Intraperitoneal space: Please see CT of the abdomen and pelvis. Bones/joints: Unremarkable. No acute fracture. Soft tissues: Unremarkable. IMPRESSION: 1. Moderate centrilobular emphysematous changes are present. The lungs are hyperinflated, consistent with underlying small airways disease. 2. Scattered patchy ground-glass opacities within the lungs. These findings are nonspecific and may represent hypoventilatory change,edema, hemorrhage, or an infectious/inflammatory process (acute or chronic). 3. There is severe atherosclerotic calcification of the coronary arteries. 4. There is pronounced cardiomegaly. 5. The pulmonary artery is severely enlarged at 4.6 cm consider pulmonary hypertension. PROCEDURE INFORMATION: Exam: CT Abdomen And Pelvis Without Contrast Exam date and time: 08/03/2024 7:12 PM Age: 59 years old Clinical indication: Other: Upper abd pain with SOB TECHNIQUE: Imaging protocol: Computed tomography of the abdomen and pelvis without contrast. 3D rendering (Not supervised by radiologist): MIP and/or 3D reconstructed images were created by the technologist. COMPARISON: CT THORAX ABD/PEL CTA 05/18/2024 2:01 PM FINDINGS: Liver: There is a finely nodular contour to the liver and hypertrophy of the caudate lobe, consistent with end-stage cirrhosis. There are no focal liver lesions present. Gallbladder and biliary ducts: There are calcified gallstones present within the gallbladder lumen. There is no wall thickening or pericholecystic fluid. Findings consistant with cholelitiasis without cholecystitis. Pancreas: Normal. No ductal dilation. Spleen: The spleen is enlarged. The spleen otherwise appears normal. Adrenal glands: Normal. No mass. Kidneys and ureters: The kidneys are severely atrophic and hypoplastic consistent with renal failure. Stomach and bowel: Moderate to severe diverticulosis is present in the ascending, transverse, descending and sigmoid colon. No evidence of diverticulitis. There are fluid-filled loops of small bowel with air-fluid levels. No significant bowel wall thickening or inflammatory changes. No evidence of obstruction. Consider early enteritis. There is interposition of the colon anterior lateral to the liver and adjacent to the diaphragm consistent with Chiaiditi syndrome, This may be associated with pain. Appendix: There is no evidence of appendicitis. Intraperitoneal space: There is no free intraperitoneal air. There is no evidence of free intraperitoneal or pelvic fluid. Surgical clips within the pelvis on the left. Vasculature: Portal vein is enlarged consider portal hypertension. Moderate to severe atherosclerotic plaquing of the abdominal aorta. Moderate to severe atherosclerotic plaquing of the peripheral arterial system. Mild ectasia distal abdominal aorta measuring 2.3 cm. Lymph nodes: There is no evidence of lymphadenopathy. Urinary bladder: There is nonspecific bladder wall thickening. This may be related to incomplete bladder filling. Reproductive: There has been a hysterectomy. No adnexal cysts or masses are identified. Bones/joints: No acute fracture. Soft tissues: There is whole body soft tissue edema present, consistent with anasarca. IMPRESSION: 1. Findings consistant with cholelitiasis without cholecystitis. 2. The kidneys are severely atrophic and hypoplastic consistent with renal failure. 3. There are fluid-filled loops of small bowel with air-fluid levels. No significant bowel wall thickening or inflammatory changes. No evidence of obstruction. Consider early enteritis. 4. Anasarca Dictated and Authenticated by: Og Valadez MD. Orderin Qiana Carvajal MD
[2024-08-03 20:27] LABS: COVID-19 PCR Negative (Negative); Influenza A PCR Negative (Negative); Influenza B PCR Negative (Negative); RSV PCR Negative (Negative)
[2024-08-03 20:30] LABS: Source Nasopharynx
[2024-08-03 21:31] LABS: Troponin I 87 ng/L (<or=51)
[2024-08-03] MEDS: traMADol 50 MG TAB PO (21:37)
[2024-08-03] MEDS: Azithromycin 250 MG TAB 500 MG PO (21:37)
[2024-08-03] MEDS: Ondansetron O.D.T. 4 MG TABEF PO (22:43)
[2024-08-03] MEDS: Ondansetron O.D.T. 4 MG TABEF, 3 TABS/BTL PO (22:43)
== END 2024-08-03 23:11 | disposition home or self-care (01) ==
PROVIDERS: Emergency Provider Nurse Practitioner Family; PCP Family Medicine
DX: J44.1 Chronic obstructive pulmonary disease with (acute) exacerbation (principal); R10.31 Right lower quadrant pain; I45.19 Other right bundle-branch block; E78.5 Hyperlipidemia, unspecified; E21.3 Hyperparathyroidism, unspecified; I13.2 Hypertensive heart and chronic kidney disease with heart failure and with stage 5 chronic kidney disease, or end stage renal disease; N18.6 End stage renal disease; I50.812 Chronic right heart failure; Z95.5 Presence of coronary angioplasty implant and graft; Z99.2 Dependence on renal dialysis; Z94.0 Kidney transplant status; F17.210 Nicotine dependence, cigarettes, uncomplicated; Z99.81 Dependence on supplemental oxygen
CPT/HCPCS: 71250; 80053; 82805; 87637; 93005; 94640; 96365; 96375; 99285; 74176; 83735; 84484; 85025; 93010; 99284; J2919; J3475; J7620

== ENCOUNTER 2024-08-30 10:15 | Emergency (ER) | payer OTHER, SELFPAY ==
[2024-08-30] VITALS (16 sets, daily range): BP systolic 85–98; BP diastolic 38–55; PULSE 115–124; RESP 13–27; TEMP 37.1–37.2; O2SAT 95–100
--- NOTE | 2024-08-30 10:00 | RT.EKG_ITS ---
APPROVED REPORT Exam: Resting ECG Reason for Exam: dyspnea Patient Location: E HR:120 bpm ECG Measurements Heart Rate 120 AXIS NC 63 P 0 QRSd 160 QRS 127 QT 418 T -46 QTc 591 Conclusion Sinus tachycardia...rate> 99 RBBB and LPFB...QRSd >120mS, axis(90,210) Physician: unchanged from prior ekg
--- NOTE | 2024-08-30 10:15 | DI.RAD_ITS ---
Exam(s) XR PORTABLE CHEST AP EXAM: XR PORTABLE CHEST AP CLINICAL HISTORY: SOB w/ cough TECHNIQUE: 2D digital imaging was performed. COMPARISON: CR,XR XR PORTABLE CHEST AP from 07/20/[address] CHEST/ABD/PEL WO from 08/03/2024 FINDINGS: LUNGS: Clear. No focal consolidation or evidence of pulmonary edema. No visible effusion or pneumothorax. Right arteries are prominent. HEART: Enlarged, unchanged. Aortic and tricuspid valve prostheses. There calcifications of the mitral annulus. AORTA: Normal diameter. BONES: Unremarkable for age. Soft tissues: Unremarkable. IMPRESSION: Cardiomegaly. No acute findings. DATA REPOSITORY: RADIATION DOSE DELIVERED:
[2024-08-30] MEDS: Albuterol/Ipratropium 3 ML UPD VIAL UPD ×2 (10:47→11:31)
[2024-08-30 10:50] LABS: Abs Immature Grans 0.01 10^3/uL (0.0-0.06); Absolute Basophil Count 0.03 10^3/uL (0.0-0.2); Absolute Eosinophil Count 0.21 10^3/uL (0.0-0.7); Absolute Lymphocyte Count 0.37 10^3/uL (1.2-3.4); Absolute Monocyte Count 0.29 10^3/uL (0.1-0.8); BE (Venous) 13 mmol/L (-2-3); Basophils % 1.4 %; Eosinophils % 9.5 %; HCO3 (Venous) 36 mmol/L (23-28); HCT 31.9 % (36.0-46.0); HGB 10.1 g/dL (11.2-15.7); Immature Grans % 0.5 %; Lymphocytes % 16.7 %; MCH 31.4 pg (27.0-33.0); MCHC 31.7 % (32.0-36.0); MCV 99 fL (80-95); MPV 12.7 fL (8.0-11.0); Monocytes % 13.1 %; Neutrophils % 58.8 %; O2 Sat (Venous) 96 %; RBC 3.22 10^6/uL (3.93-5.22); RDW 14.8 % (11.7-14.6); RDW-SD 54.4 fL; TCO2 (Venous) 33 mmol/L (24-29); WBC 2.21 10^3/uL (4.4-10.8); pCO2 (Venous) 46 mmHg (41-51); pH (Venous) 7.51 (7.31-7.41); pO2 (Venous) 70 mmHg
[2024-08-30 11:15] LABS: Platelet Count 77 10^3/uL (130-400); Troponin I 55 ng/L (<or=51)
[2024-08-30] MEDS: methylPREDNISolone SUCC 125 MG VIAL IVP (11:30)
[2024-08-30 11:36] LABS: ALT 38 U/L (14-59); AST 30 U/L (15-37); Albumin 3.5 g/dL (3.4-5.0); Alkaline Phosphatase 136 U/L (46-116); Anion Gap 6.8 mmol/L (3-11); BUN 8 mg/dL (7-18); Bilirubin, Total 0.7 mg/dL (0.2-1.0); CO2 35.2 mmol/L (21.0-32.0); CREATININE 2.6 mg/dL (0.55-1.02); Calcium 8.6 mg/dL (8.5-10.1); Chloride 98 mmol/L (98-107); Estimated GFR 20.36 (mL/min/1.73m2); Glucose 109 mg/dL (74-106); Potassium 3.3 mmol/L (3.5-5.1); Sodium 140 mmol/L (136-145); Total Protein 6.3 g/dL (6.4-8.2)
[2024-08-30 12:09] LABS: Troponin I 54 ng/L (<or=51)
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
== END 2024-08-30 12:43 | disposition home or self-care (01) ==
PROVIDERS: Emergency Provider Student in an Organized Health Care Education/Training Program; PCP Family Medicine
DX: J44.1 Chronic obstructive pulmonary disease with (acute) exacerbation (principal); I45.2 Bifascicular block; I12.0 Hypertensive chronic kidney disease with stage 5 chronic kidney disease or end stage renal disease; N18.6 End stage renal disease; Z95.2 Presence of prosthetic heart valve; Z94.0 Kidney transplant status; Z99.2 Dependence on renal dialysis; F17.210 Nicotine dependence, cigarettes, uncomplicated
CPT/HCPCS: 80053; 82805; 93005; 94640; 96374; 99285; 71045; 84484; 85025; 93010; 94667; J2919; J7620

== ENCOUNTER 2024-09-03 00:54 | Emergency (ER) | payer OTHER, SELFPAY ==
[2024-09-03] VITALS (53 sets, daily range): BP systolic 151; BP diastolic 37; PULSE 121–136; RESP 13–27; TEMP 35.5; O2SAT 91–100
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
--- NOTE | 2024-09-03 01:00 | RT.EKG_ITS ---
APPROVED REPORT Exam: Resting ECG Reason for Exam: Patient Location: E HR:123 bpm ECG Measurements Heart Rate 123 AXIS MI 51 P 91 QRSd 152 QRS 103 QT 400 T -41 QTc 573 Conclusion Sinus tachycardia...rate> 99 RBBB and LPFB...QRSd >120mS, axis(90,210) There are no significant changes compared to prior EKG performed on 08/30/2024 at 10:27.
--- NOTE | 2024-09-03 01:00 | DI.RAD_ITS ---
Exam(s) XR PORTABLE CHEST AP EXAM: XR PORTABLE CHEST AP CLINICAL HISTORY: SOB/COPD TECHNIQUE: 2D digital imaging was performed. COMPARISON: No exams were available for comparison FINDINGS: Overlying monitoring leads and oxygen tubing. LUNGS: Mild peribronchial thickening increased interstitial markings consistent with mild CHF. No focal area of consolidation. HEART: Enlarged, unchanged. Aortic valve prosthesis. Pulmonary arteries are prominent. AORTA: Normal diameter. BONES: Unremarkable for age. Soft tissues: Unremarkable. IMPRESSION: Cardiomegaly and mild CHF The preliminary [facility] report was reviewed. DATA REPOSITORY: RADIATION DOSE DELIVERED:
[2024-09-03 01:26] LABS: BE (Venous) 11 mmol/L (-2-3); HCO3 (Venous) 36 mmol/L (23-28); O2 Sat (Venous) 76 %; TCO2 (Venous) 33 mmol/L (24-29); pH (Venous) 7.38 (7.31-7.41); pO2 (Venous) 44 mmHg
[2024-09-03] MEDS: Albuterol/Ipratropium 3 ML UPD VIAL UPD (01:26)
[2024-09-03] MEDS: methylPREDNISolone SUCC 125 MG VIAL IVP (01:26)
[2024-09-03] MEDS: Albuterol 2.5 MG/3 ML INH SOLN VIAL UPD ×3 (01:26→05:56)
[2024-09-03 01:29] LABS: Abs Immature Grans 0.04 10^3/uL (0.0-0.06); Absolute Basophil Count 0.02 10^3/uL (0.0-0.2); Absolute Eosinophil Count 0.38 10^3/uL (0.0-0.7); Absolute Lymphocyte Count 0.44 10^3/uL (1.2-3.4); Absolute Monocyte Count 0.48 10^3/uL (0.1-0.8); Absolute Neutrophil Count 2.73 10^3/uL (1.2-6.7); Basophils % 0.5 %; Eosinophils % 9.3 %; HCT 35.6 % (36.0-46.0); HGB 10.8 g/dL (11.2-15.7); Lymphocytes % 10.8 %; MCH 30.6 pg (27.0-33.0); MCHC 30.3 % (32.0-36.0); MCV 101 fL (80-95); MPV 12.3 fL (8.0-11.0); Monocytes % 11.7 %; Neutrophils % 66.7 %; Platelet Count 117 10^3/uL (130-400); RBC 3.53 10^6/uL (3.93-5.22); RDW 15.3 % (11.7-14.6); RDW-SD 56.2 fL; WBC 4.09 10^3/uL (4.4-10.8)
[2024-09-03 01:31] LABS: pCO2 (Venous) 61 mmHg (41-51)
[2024-09-03 01:50] LABS: Anion Gap 6.8 mmol/L (3-11); BUN 29 mg/dL (7-18); CO2 36.2 mmol/L (21.0-32.0); Calcium 9.4 mg/dL (8.5-10.1); Chloride 98 mmol/L (98-107); Estimated GFR 9.52 (mL/min/1.73m2); Glucose 102 mg/dL (74-106); Potassium 4.1 mmol/L (3.5-5.1); Sodium 141 mmol/L (136-145)
[2024-09-03 01:53] LABS: CREATININE 4.9 mg/dL (0.55-1.02)
[2024-09-03 01:54] LABS: Troponin I 53 ng/L (<or=51)
[2024-09-03] MEDS: Amoxicillin 500/Clav. 125 TAB PO (02:01)
--- NOTE | 2024-09-03 02:47 | DI.[facility]_ITS ---
PROCEDURE INFORMATION: Exam: XR Chest Exam date and time: 09/03/2024 1:38 AM Age: 59 years old Clinical indication: Shortness of breath; Prior surgery; Surgery date: 6+ months; Surgery type: H/o aortic valve replacement; SOB, copd TECHNIQUE: Imaging protocol: Radiologic exam of the chest. Views: 1 view. COMPARISON: CR XR PORTABLE CHEST AP 08/30/2024 11:14 AM FINDINGS: Lungs: Pulmonary vascular congestion and mild interstitial edema. Pleural spaces: Unremarkable. No pleural effusion. No pneumothorax. Heart/Mediastinum: Heart is enlarged. Bones/joints: Patient is status post sternotomy. IMPRESSION: 1. Cardiomegaly. 2. Pulmonary vascular congestion/interstitial edema. Dictated and Authenticated by: Agusto Wynn MD. Orderin Chapin Diaz MD
[2024-09-03 03:12] LABS: Troponin I 46 ng/L (<or=51)
[2024-09-03] MEDS: predniSONE 20 MG TAB 40 MG PO (07:22)
== END 2024-09-03 09:22 | disposition home or self-care (01) ==
PROVIDERS: Emergency Provider Emergency Medicine; PCP Family Medicine
DX: J44.1 Chronic obstructive pulmonary disease with (acute) exacerbation (principal); I45.2 Bifascicular block; E78.5 Hyperlipidemia, unspecified; I12.0 Hypertensive chronic kidney disease with stage 5 chronic kidney disease or end stage renal disease; N18.6 End stage renal disease; Z94.0 Kidney transplant status; Z99.2 Dependence on renal dialysis; Z99.81 Dependence on supplemental oxygen; Z95.2 Presence of prosthetic heart valve
CPT/HCPCS: 80048; 82805; 93005; 94640; 96374; 99285; 71045; 84484; 85025; 93010; J2919; J7512; J7613; J7620

== ENCOUNTER 2024-09-06 13:54 | Emergency (ER) | payer OTHER, SELFPAY ==
[2024-09-06] VITALS (78 sets, daily range): BP systolic 76–100; BP diastolic 16–58; PULSE 38–149; RESP 13–31; TEMP 36.9; O2SAT 86–99
--- NOTE | 2024-09-06 14:00 | RT.EKG_ITS ---
APPROVED REPORT Exam: Resting ECG Reason for Exam: tachycardia Patient Location: E HR:147 bpm ECG Measurements Heart Rate 147 AXIS OH [id number] P 0 QRSd 165 QRS 84 QT 355 T 4 QTc 556 Conclusion Sinus tachycardia 147 RBBB no stemi
--- NOTE | 2024-09-06 14:15 | DI.RAD_ITS ---
Exam(s) XR PORTABLE CHEST AP EXAM: XR PORTABLE CHEST AP CLINICAL HISTORY: sob TECHNIQUE: 2D digital imaging was performed. COMPARISON: CR,XR XR PORTABLE CHEST AP from 09/03/2024 FINDINGS: LUNGS: There is mild peribronchial thickening and interstitial changes consistent with mild CHF. No pleural abnormality seen. HEART: Enlarged, unchanged. Valve prostheses again noted. The pulmonary arteries are prominent. AORTA: Normal diameter. BONES: Sternal wires. Soft tissues: Unremarkable. IMPRESSION: Cardiomegaly and mild CHF. DATA REPOSITORY: RADIATION DOSE DELIVERED:
[2024-09-06] MEDS: Metoprolol 50 MG TAB 100 MG PO (14:58)
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
[2024-09-06] MEDS: Albuterol/Ipratropium 3 ML UPD VIAL UPD (15:10)
[2024-09-06 15:46] LABS: Absolute Basophil Count 0.04 10^3/uL (0.0-0.2); Absolute Eosinophil Count 0.42 10^3/uL (0.0-0.7); Absolute Lymphocyte Count 0.71 10^3/uL (1.2-3.4); Absolute Monocyte Count 0.73 10^3/uL (0.1-0.8); Absolute Neutrophil Count 4.87 10^3/uL (1.2-6.7); BE (Venous) 19 mmol/L (-2-3); Basophils % 0.6 %; Eosinophils % 5.9 %; HCO3 (Venous) 43 mmol/L (23-28); HCT 36.7 % (36.0-46.0); HGB 11.4 g/dL (11.2-15.7); Immature Grans % 4.2 %; MCH 31.8 pg (27.0-33.0); MCHC 31.1 % (32.0-36.0); MCV 102 fL (80-95); MPV 11.8 fL (8.0-11.0); Monocytes % 10.3 %; Nucleated RBC 0.6 % (0.0-0.3); O2 Sat (Venous) 86 %; Platelet Count 146 10^3/uL (130-400); RBC 3.59 10^6/uL (3.93-5.22); RDW 16.7 % (11.7-14.6); RDW-SD 57.1 fL; TCO2 (Venous) 39 mmol/L (24-29); WBC 7.07 10^3/uL (4.4-10.8); pCO2 (Venous) 60 mmHg (41-51); pH (Venous) 7.46 (7.31-7.41); pO2 (Venous) 49 mmHg
[2024-09-06] MEDS: Magnesium Oxide 400 MG TAB 800 MG PO (15:58)
[2024-09-06 16:09] LABS: ALT 40 U/L (14-59); AST 35 U/L (15-37); Albumin 3.7 g/dL (3.4-5.0); Alkaline Phosphatase 155 U/L (46-116); BUN 25 mg/dL (7-18); Bilirubin, Total 0.6 mg/dL (0.2-1.0); CREATININE 3.2 mg/dL (0.55-1.02); Calcium 9.3 mg/dL (8.5-10.1); Chloride 97 mmol/L (98-107); Estimated GFR 15.87 (mL/min/1.73m2); Glucose 96 mg/dL (74-106); Magnesium 1.9 mg/dL (1.8-2.4); Potassium 3.6 mmol/L (3.5-5.1); Sodium 143 mmol/L (136-145); Total Protein 6.9 g/dL (6.4-8.2)
[2024-09-06 16:22] LABS: Troponin I 48 ng/L (<or=51)
[2024-09-06 16:24] LABS: NT-proBNP > 35000 pg/mL (<300)
[2024-09-06] MEDS: Normal Saline 250 ML IV (17:08)
[2024-09-06] MEDS: dilTIAZem 25 MG/5 ML VIAL 10 MG IVP (17:24)
== END 2024-09-06 17:58 | disposition home or self-care (01) ==
PROVIDERS: Emergency Provider Emergency Medicine; PCP Family Medicine
DX: J44.1 Chronic obstructive pulmonary disease with (acute) exacerbation (principal); I12.0 Hypertensive chronic kidney disease with stage 5 chronic kidney disease or end stage renal disease; N18.6 End stage renal disease; R00.0 Tachycardia, unspecified; E78.5 Hyperlipidemia, unspecified; E21.3 Hyperparathyroidism, unspecified; Z99.81 Dependence on supplemental oxygen; Z95.2 Presence of prosthetic heart valve; F17.210 Nicotine dependence, cigarettes, uncomplicated; Z94.0 Kidney transplant status; Z99.2 Dependence on renal dialysis
CPT/HCPCS: 80053; 82805; 93005; 94640; 96374; 99285; 71045; 83735; 83880; 84484; 85025; 93010; 99284; J7620

== ENCOUNTER 2024-09-16 11:36 | Emergency (ER) | payer OTHER, SELFPAY ==
[2024-09-16] VITALS (40 sets, daily range): BP systolic 67–122; BP diastolic 13–64; PULSE 74–122; RESP 15–29; TEMP 36.9; O2SAT 90–100
--- NOTE | 2024-09-16 11:30 | RT.EKG_ITS ---
APPROVED REPORT Exam: Resting ECG Reason for Exam: SOB Patient Location: E HR:109 bpm ECG Measurements Heart Rate 109 AXIS AK 140 P 137 QRSd 206 QRS -99 QT 404 T 19 QTc 544 Conclusion Sinus [address] changes, no stemi
--- NOTE | 2024-09-16 11:30 | DI.RAD_ITS ---
Exam(s) XR PORTABLE CHEST AP EXAM: XR PORTABLE CHEST AP CLINICAL HISTORY: SOB. TECHNIQUE: 2D digital imaging was performed. COMPARISON: CR XR PORTABLE CHEST AP from 09/06/2024 FINDINGS: Single AP portable view. Again noted are sternotomy wires and 2 prosthetic cardiac valve is. Cardiomegaly again noted. Mediastinum unchanged. Right lung is clear but there appears to be infiltrate in the left lower lobe retrocardiac region. The no obvious pleural effusions. IMPRESSION: Left lower lobe infiltrate. Sternotomy wires. Cardiomegaly. Prosthetic valves. No pulmonary edema. DATA REPOSITORY: RADIATION DOSE DELIVERED:
[2024-09-16 12:29] LABS: Abs Immature Grans 0.03 10^3/uL (0.0-0.06); HCT 30.8 % (36.0-46.0); HGB 9.6 g/dL (11.2-15.7); Immature Grans % 0.6 %; MCH 31.9 pg (27.0-33.0); MCHC 31.2 % (32.0-36.0); MCV 102 fL (80-95); MPV 12.2 fL (8.0-11.0); RBC 3.01 10^6/uL (3.93-5.22); RDW 16.1 % (11.7-14.6); RDW-SD 59.4 fL; WBC 5.13 10^3/uL (4.4-10.8)
[2024-09-16 12:47] LABS: Platelet Count 79 10^3/uL (130-400); RBC Morphology Normal
[2024-09-16 12:56] LABS: ALT 32 U/L (14-59); AST 28 U/L (15-37); Albumin 3.7 g/dL (3.4-5.0); Alkaline Phosphatase 156 U/L (46-116); Anion Gap 10.3 mmol/L (3-11); BUN 70 mg/dL (7-18); Bilirubin, Total 0.7 mg/dL (0.2-1.0); CO2 29.7 mmol/L (21.0-32.0); Calcium 8.7 mg/dL (8.5-10.1); Chloride 96 mmol/L (98-107); Estimated GFR 5.21 (mL/min/1.73m2); Glucose 103 mg/dL (74-106); Magnesium 2.3 mg/dL (1.8-2.4); NT-proBNP 33010 pg/mL (<300); Sodium 136 mmol/L (136-145); Total Protein 6.7 g/dL (6.4-8.2)
[2024-09-16 13:04] LABS: Potassium 7.0 mmol/L (3.5-5.1)
[2024-09-16] MEDS: Dextrose 50%-Water 25 GM/50 ML SYR IVP ×2 (13:32→15:13)
[2024-09-16] MEDS: CALCIUM GLUCONATE in NaCl 1 GM/50 ML BAG IVPB ×2 (13:32→15:14)
[2024-09-16] MEDS: Insulin REGULAR-Human 100 UNITS/ML UNIT 10 UNITS IV ×2 (13:33→15:13)
[2024-09-16] MEDS: CEFEPIME 1 GM in Normal Saline 50 ML IVPB (13:54)
[2024-09-16 14:33] LABS: BE (Venous) 1 mmol/L (-2-3); HCO3 (Venous) 28 mmol/L (23-28); O2 Sat (Venous) 87 %; TCO2 (Venous) 26 mmol/L (24-29); pCO2 (Venous) 58 mmHg (41-51); pO2 (Venous) 60 mmHg
[2024-09-16 14:48] LABS: Anion Gap 11.6 mmol/L (3-11); BUN 71 mg/dL (7-18); CO2 27.4 mmol/L (21.0-32.0); Calcium 8.9 mg/dL (8.5-10.1); Chloride 97 mmol/L (98-107); Estimated GFR 5.13 (mL/min/1.73m2); Glucose 56 mg/dL (74-106); Potassium 5.9 mmol/L (3.5-5.1); Sodium 136 mmol/L (136-145)
[2024-09-16] MEDS: VANCOMYCIN/WATER (PEG) 1 GM/200 ML BAG IVPB (14:51)
[2024-09-16 15:19] LABS: Procalcitonin 0.45 ng/mL
[2024-09-16 15:22] LABS: COVID-19 PCR Negative (Negative); RSV PCR Negative (Negative)
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
== END 2024-09-16 15:38 | disposition short-term general hospital (02) ==
PROVIDERS: Emergency Provider Emergency Medicine; PCP Family Medicine
DX: I12.0 Hypertensive chronic kidney disease with stage 5 chronic kidney disease or end stage renal disease (principal); N18.6 End stage renal disease; J44.9 Chronic obstructive pulmonary disease, unspecified; I48.4 Atypical atrial flutter; E78.5 Hyperlipidemia, unspecified; E89.2 Postprocedural hypoparathyroidism; I45.19 Other right bundle-branch block; F17.210 Nicotine dependence, cigarettes, uncomplicated; Z95.2 Presence of prosthetic heart valve; Z99.81 Dependence on supplemental oxygen
CPT/HCPCS: 36415; 80048; 80053; 82805; 84145; 87637; 93005; 96365; 96368; 99285; 71045; 83605; 83735; 83880; 85025; 93010; 99284; J0613; J0692; J1815; J3373

== ENCOUNTER 2024-10-02 12:16 | Emergency (ER) | payer MEDICARE, SELFPAY ==
[2024-10-02] VITALS (61 sets, daily range): BP systolic 84–156; BP diastolic 49–114; PULSE 94–141; RESP 0–49; TEMP 35.5; O2SAT 87–99
--- NOTE | 2024-10-02 12:15 | RT.EKG_ITS ---
APPROVED REPORT Exam: Resting ECG Reason for Exam: tachycardia Patient Location: E HR:135 bpm ECG Measurements Heart Rate 135 AXIS NC 55 P 0 QRSd 146 QRS 135 QT 367 T -47 QTc 551 Conclusion Sinus tachycardia...rate> 99 Right bundle branch block...QRSd>120, terminal axis(90,270) ST depr, consider ischemia, anterolateral lds...ST <-0.10mV, I aVL V2-V6 No Occlusion MS
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
--- NOTE | 2024-10-02 12:30 | DI.RAD_ITS ---
Exam(s) XR PORTABLE CHEST AP EXAM: XR PORTABLE CHEST AP CLINICAL HISTORY: Shortness of breath TECHNIQUE: 2D digital imaging was performed. COMPARISON: CR XR PORTABLE CHEST AP from 09/16/2024 FINDINGS: LUNGS: Pulmonary vascular prominence. Mildly increased interstitial markings may indicate CHF. Question of trace pleural effusions. HEART: Norm enlarged, unchanged. Two prosthetic valves are again noted. The pulmonary vasculature is prominent. AORTA: Normal diameter. BONES: Unremarkable for age. Soft tissues: Unremarkable. IMPRESSION: Cardiomegaly and CHF. DATA REPOSITORY: RADIATION DOSE DELIVERED:
[2024-10-02 12:39] LABS: BE 12 mmol/L (-2-3); HCO3 36 mmol/L (22-26)
[2024-10-02 12:42] LABS: FIO2 28 %
[2024-10-02 13:25] LABS: BE (Venous) 13 mmol/L (-2-3); HCO3 (Venous) 36 mmol/L (23-28); O2 Sat (Venous) 97 %; TCO2 (Venous) 33 mmol/L (24-29); pCO2 (Venous) 47 mmHg (41-51); pO2 (Venous) 72 mmHg
[2024-10-02 13:30] LABS: Abs Immature Grans 0.01 10^3/uL (0.0-0.06); HCT 32.1 % (36.0-46.0); HGB 9.8 g/dL (11.2-15.7); Immature Grans % 0.3 %; MCH 30.8 pg (27.0-33.0); MCHC 30.5 % (32.0-36.0); MCV 101 fL (80-95); MPV 12.4 fL (8.0-11.0); RBC 3.18 10^6/uL (3.93-5.22); RDW 15.2 % (11.7-14.6); RDW-SD 56.1 fL; WBC 2.90 10^3/uL (4.4-10.8)
[2024-10-02] MEDS: Normal Saline 250 ML IV ×2 (13:37→17:31)
[2024-10-02] MEDS: methylPREDNISolone SUCC 125 MG VIAL IVP (13:39)
[2024-10-02 13:48] LABS: Platelet Count 96 10^3/uL (130-400); RBC Morphology Normal
[2024-10-02 14:00] LABS: Magnesium 2.0 mg/dL (1.8-2.4)
[2024-10-02 14:12] LABS: Anion Gap 7.0 mmol/L (3-11); BUN 6 mg/dL (7-18); CO2 37.0 mmol/L (21.0-32.0); Calcium 8.6 mg/dL (8.5-10.1); Chloride 96 mmol/L (98-107); Estimated GFR 22.42 (mL/min/1.73m2); Glucose 81 mg/dL (74-106); Potassium 3.6 mmol/L (3.5-5.1); Sodium 140 mmol/L (136-145); Troponin I 31 ng/L (<or=51)
[2024-10-02] MEDS: CLINDAMYCIN 300 MG/50 ML BAG 100 MG IVPB (14:28)
[2024-10-02] MEDS: LORazepam 1 MG TAB PO (14:28)
[2024-10-02] MEDS: Doxycycline Hyclate 100 MG CAP PO (14:28)
[2024-10-02] MEDS: Metoprolol 50 MG TAB 100 MG PO (14:28)
[2024-10-02 14:43] LABS: NT-proBNP > 35000 pg/mL (<300)
[2024-10-02 14:48] LABS: Troponin I 32 ng/L (<or=51)
[2024-10-02] MEDS: VANCOMYCIN/WATER (PEG) 1 GM/200 ML BAG IVPB (15:04)
[2024-10-02 16:51] LABS: Troponin I 31 ng/L (<or=51)
--- NOTE | 2024-10-02 17:05 | ED.PROG_ITS ---
Date of service: 10/02/24 Time of Service: 17:05 Medical Decision Making Care assumed from outgoing provider. Patient is a 59-year-old female with multiple medical comorbidities, well-known to this department presented with shortness of breath after dialysis today. Discussed patient transfer with [facility], but patient not excepted. At this time we reached out to [facility] and they have accepted the patient for transfer. Accepting physician Dr. Carroll Johnson. Will go ED to ED. I have given the patient an additional bronchodilator treatment as well as additional fluids. Her blood pressure is slightly improving but she is still persistently tachycardic. Patient will be transferred emergently to outside facility for further management. Quality:SDOH Health Related Social Needs: Health related social needs house/econ circumstance da ying activities lonely/isolated Discharge Plan Disposition Patient Disposition: Transfer-Acute Inpatient Care Specific Acute Inpt Facility: [facility] Condition: Serious Discharge Details Clinical Impression: Acute and chronic respiratory failure with hypoxia, Tachycardia, Hypotension, ESRD on dialysis Primary Care Provider: Chano Neves ED Provider: [place] Lema Home Meds and New Rx's Prescriptions: No Action lorazepam 1 mg tablet 1 mg PO DAILY Qty: 30 1RF sertraline 50 mg tablet 50 mg PO DAILY Qty: 90 0RF albuterol sulfate [Ventolin HFA] 90 mcg/actuation HFA aerosol inhaler 2 puff inhalation QID PRN (Reason: shortness of breath or wheezing) Qty: 8.5 5RF atorvastatin 40 mg tablet 40 mg PO DAILY Breztri Aerosphere 160-9-4.8 mcg/actuation HFA aerosol inhaler 2 inh inhalation BID prazosin 1 mg capsule 1 mg PO QHS Qty: 30 2RF albuterol sulfate 2.5 mg /3 mL (0.083 %) solution for nebulization 2.5 mg inhalation Q6H PRN (Reason: shortness of breath or wheezing) Qty: 3 0RF Rx Instructions: [facility] Aerochamber MV Spacer MISCELLANEOUS sevelamer carbonate 800 mg tablet 1,600 mg PO AC Patient Comments: TAKE 2 TABLETS BY MOUTH THREE TIMES DAILY WITH MEALS trazodone 100 mg tablet 100 mg PO QHS PRN metoprolol succinate 100 mg tablet extended release 24 hr 100 mg PO DAILY Patient Comments: TAKE 1 TABLET BY MOUTH EVERY DAY ipratropium-albuterol 0.5 mg-3 mg(2.5 mg base)/3 mL solution for nebulization 3 ml IH Q6H Qty: 90 0RF prednisone 50 mg tablet 50 mg PO DAILY Qty: 5 0RF Eliquis 2.5 mg tablet 2.5 mg PO BID minoxidil 2.5 mg tablet 2.5 mg PO BID Patient Comments: TAKE 1 TABLET BY MOUTH EVERY DAY AT BEDTIME amlodipine 10 mg tablet 10 mg PO DAILY aspirin [Adult Aspirin Regimen] 81 mg tablet,delayed release (DR/EC) 81 mg PO DAILY benzonatate 100 mg capsule 100 mg PO TID PRN epinephrine [Auvi-Q] 0.3 mg/0.3 mL auto-injector 0.3 ml subcut Q5-15M PRN Rx Instructions: do not exceed 2 doses per episode meclizine 12.5 mg tablet 12.5 mg PO TID PRN nifedipine 60 mg tablet extended release 120 mg PO DAILY omeprazole 40 mg capsule,delayed release(DR/EC) 40 mg PO DAILY sucralfate 1 gram tablet 1 g PO QID Patient Comments: TAKE 1 TABLET BY MOUTH BEFORE MEALS AND AT BEDTIME tiotropium bromide 18 mcg capsule, w/inhalation device 1 cap inhalation DAILY Rx Instructions: puncture 1 cap using device; one dose = 2 inhalations
[2024-10-02] MEDS: Albuterol/Ipratropium 3 ML UPD VIAL UPD (18:20)
== END 2024-10-02 19:43 | disposition short-term general hospital (02) ==
PROVIDERS: Emergency Medicine; Emergency Provider Emergency Medicine; PCP Family Medicine
DX: J96.21 Acute and chronic respiratory failure with hypoxia (principal); I12.0 Hypertensive chronic kidney disease with stage 5 chronic kidney disease or end stage renal disease; N18.6 End stage renal disease; I45.19 Other right bundle-branch block; I10 Essential (primary) hypertension; E78.5 Hyperlipidemia, unspecified; I25.10 Atherosclerotic heart disease of native coronary artery without angina pectoris; I48.92 Unspecified atrial flutter; Z79.01 Long term (current) use of anticoagulants; Z79.82 Long term (current) use of aspirin; Z99.2 Dependence on renal dialysis; Z94.0 Kidney transplant status; Z99.81 Dependence on supplemental oxygen
CPT/HCPCS: 00123; 36415; 80048; 82805; 87040; 87426; 87637; 93005; 93308; 94640; 96361; 96365; 96366; 96367; 96375; 99285; 71045; 83605; 83735; 83880; 84484; 85025; 93010; J0736; J2919; J3373; J7620

== ENCOUNTER 2024-10-18 11:03 | Emergency (ER) | payer MEDICARE, SELFPAY ==
[2024-10-18] VITALS (29 sets, daily range): BP systolic 98–134; BP diastolic 47–94; PULSE 83–128; RESP 11–29; TEMP 36.6; O2SAT 92–100
--- NOTE | 2024-10-18 11:15 | DI.CT_ITS ---
Exam(s) CT ABDOMEN PELVIS CTA EXAM: CT ABDOMEN PELVIS CTA CLINICAL HISTORY: black stool, GI bleeding. TECHNIQUE: Imaging Protocol: Axial computed tomography images with coronal and sagittal reformatted images were created and reviewed CONTRAST MATERIAL: Intravenous: Omnipaque 350 Contrast volume:100 ml Oral: None COMPARISON: CT CT CHEST/ABD/PEL WO from 08/03/2024 FINDINGS: ABDOMEN: There is some ascites now evident-mild, this in addition to symmetrical anasarca. LIVER: Cirrhotic appearing liver again noted. No obvious focal mass in the liver GALLBLADDER/BILIARY: Multiple gallstones in the gallbladder lumen are again noted. Although there is some fluid around the gallbladder of the small probably related to the generalized ascites, more so than actual acute gallbladder disease. CBD diameter is upper normal. There are no radiopaque calculi evident in the CBD. PANCREAS: No evidence of pancreatic mass nor dilatation of the pancreatic duct. SPLEEN: The splenic artery is again noted to be serpiginous and heavily calcified but without evidence of focal aneurysm. Spleen is mildly enlarged. There are no splenic lesions evident. Splenic and portal veins are patent. Splenic vein diameter is prominent, measuring 1.1 cm. No splenic vein thro mbosis. ADRENALS: There are no significant adrenal masses. KIDNEYS: Advanced atrophy of both kidneys again noted. No calculi nor hydronephrosis. No solid renal masses. ABDOMINAL AORTA: Heavily calcified. There is a mild fusiform infrarenal abdominal aortic aneurysm with maximum diameter 2.8 cm. Common iliac arteries are also calcified but not enlarged. LYMPH NODES: There is no retroperitoneal nor para-aortic adenopathy. No obvious focal mesenteric masses. ABDOMINAL WALL: There is midline anterior abdominal wall hernia repair. No obvious acute hernias evident. Generalized anasarca in the subcutaneous fat again noted. GI: There is no evidence of bowel obstruction, free air, nor abscess.There are no obvious ischemic appearing bowel loops. There is no intraluminal extravasation of intravenous contrast to suggest bleeding source in the duct lumen. PELVIS: LYMPH NODES: There is no intrapelvic nor inguinal adenopathy. GI: No evidence of appendicitis.Sigmoid diverticulosis. No obvious acute diverticulitis URINARY BLADDER: Collapsed REPRODUCTIVE: Uterus is small and retroverted. No abnormal adnexal masses. OSSEOUS: No significant osseous lesions. No fractures. IMPRESSION: 1. There is no visible culprit duct location exhibiting intraluminal contrast extravasation, as per request. Such a finding would suggest GI bleed origin site. 2. Severely atrophic bilateral kidneys. Cirrhotic liver. Splenomegaly. Mild ascites. Anasarca. 3. No gallstones without evidence of obvious acute cholecystitis. 4. Heavily calcified abdominal aorta and iliac arteries. There is a mild abdominal aortic aneurysm with maximum external diameter of 2.8 cm. Also calcified iliac arteries. 5. Extensive sigmoid diverticulosis. No obvious acute diverticulitis although would be not difficult to miss a subtle case of diverticulitis given the extensive involvement of the sigmoid and the ascites and anasarca. 6. Other findings as above. Report called by myself to ER provider 10/18/2024 at 1:30 p.m. RADIATION DOSE DELIVERED: 799.76mGy.cm Total DLP DATA REPOSITORY: All CT scans at this facility are submitted to the National Radiology Data Registry (NRDR) Dose Index Registry (DIR) with the [employer] (A[employer]). RADIATION OPTIMIZATION: All CT scans at this facility use at least one of these dose optimization techniques: automated exposure control; mA and/or kV adjustment per patient size (includes targeted exams where dose is matched to clinical indication); or iterative reconstruction.
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
--- NOTE | 2024-10-18 11:45 | RT.EKG_ITS ---
APPROVED REPORT Exam: Resting ECG Reason for Exam: screening Patient Location: E HR:114 bpm ECG Measurements Heart Rate 114 AXIS [place] [id number] P [id number] QRSd 151 QRS 105 QT 369 T -18 QTc 513 Conclusion Atrial flutter with predominant 2:1 AV block...A-rate 238, multiple Ps RBBB and LPFB...QRSd >120mS, axis(90,210) No Occlusion PR
[2024-10-18 11:56] LABS: Abs Immature Grans 0.02 10^3/uL (0.0-0.06); HCT 28.3 % (36.0-46.0); HGB 8.9 g/dL (11.2-15.7); Immature Grans % 0.5 %; MCH 31.3 pg (27.0-33.0); MCHC 31.4 % (32.0-36.0); MCV 100 fL (80-95); MPV 13.1 fL (8.0-11.0); RBC 2.84 10^6/uL (3.93-5.22); RDW 15.2 % (11.7-14.6); RDW-SD 55.3 fL; WBC 3.74 10^3/uL (4.4-10.8)
[2024-10-18 12:08] LABS: INR 1.2 (0.9-1.1); PTT Activated 27.6 sec (20.6-30.2); Prothrombin Time 11.6 sec (9.1-11.1)
[2024-10-18 12:22] LABS: ALT 29 U/L (14-59); AST 30 U/L (15-37); Albumin 3.8 g/dL (3.4-5.0); Alkaline Phosphatase 194 U/L (46-116); Anion Gap 4.3 mmol/L (3-11); BUN 12 mg/dL (7-18); Bilirubin, Total 0.6 mg/dL (0.2-1.0); CO2 37.7 mmol/L (21.0-32.0); Calcium 8.5 mg/dL (8.5-10.1); Chloride 97 mmol/L (98-107); Estimated GFR 17.86 (mL/min/1.73m2); Glucose 90 mg/dL (74-106); Lipase 37 U/L (<78); Magnesium 1.8 mg/dL (1.8-2.4); Potassium 3.5 mmol/L (3.5-5.1); Sodium 139 mmol/L (136-145); Total Protein 7.1 g/dL (6.4-8.2); Troponin I 37 ng/L (<or=51)
[2024-10-18 12:31] LABS: Platelet Count 78 10^3/uL (130-400)
[2024-10-18] MEDS: Normal Saline - Diluent 50 ML VIAL IJ (12:34)
[2024-10-18] MEDS: Omnipaque 350 MG/ML 500 ML BTL-Imaging package IJ (12:35)
[2024-10-18] MEDS: Metoprolol CR 50 MG TABCR 100 MG PO (14:28)
[2024-10-18] MEDS: Albuterol/Ipratropium 3 ML UPD VIAL UPD (14:29)
== END 2024-10-18 15:20 | disposition home or self-care (01) ==
PROVIDERS: Emergency Provider Physician Assistant; PCP Family Medicine
DX: K57.30 Diverticulosis of large intestine without perforation or abscess without bleeding (principal); D64.9 Anemia, unspecified; K92.1 Melena
CPT/HCPCS: 99285; 99284; 36415; 80053; 83690; 86850; 86900; 86901; 93005; 74174; 83605; 83735; 84484; 85025; 85610; 85730; 93010; J7620

== ENCOUNTER 2024-10-24 10:56 | Outpatient (CLI) | payer MEDICARE, SELFPAY ==
[2024-10-24 12:22] LABS: Abs Immature Grans 0.03 10^3/uL (0.0-0.06); HCT 31.5 % (36.0-46.0); HGB 9.4 g/dL (11.2-15.7); Immature Grans % 0.6 %; MCH 31.2 pg (27.0-33.0); MCHC 29.8 % (32.0-36.0); MCV 105 fL (80-95); MPV 12.4 fL (8.0-11.0); Platelet Count 124 10^3/uL (130-400); RBC 3.01 10^6/uL (3.93-5.22); RDW 16.2 % (11.7-14.6); RDW-SD 59.4 fL; WBC 5.07 10^3/uL (4.4-10.8)
[2024-10-24 12:26] LABS: Mono Screening Negative (Negative)
== END 2024-10-24 10:57 | disposition home or self-care (01) ==
LOC: LOS 10:56
PROVIDERS: PCP Family Medicine; Visit Provider Family Medicine
DX: D64.9 Anemia, unspecified (principal); R59.1 Generalized enlarged lymph nodes
CPT/HCPCS: 36415; 85025; 86308

== ENCOUNTER 2024-10-31 13:53 | Emergency (ER) | payer MEDICARE, SELFPAY ==
[2024-10-31] VITALS (112 sets, daily range): BP systolic 74–148; BP diastolic 20–85; PULSE 94–146; RESP 14–35; TEMP 36.9–37.5; O2SAT 93–100
--- NOTE | 2024-10-31 13:45 | RT.EKG_ITS ---
APPROVED REPORT Exam: Resting ECG Reason for Exam: sob, tachycardia Patient Location: E HR:134 bpm ECG Measurements Heart Rate 134 AXIS LA 76 P 0 QRSd 158 QRS 54 QT 355 T -34 QTc 530 Conclusion Sinus tachycardia...rate> 99 Right bundle branch block...QRSd>120, terminal axis(90,270) No STEMI
--- NOTE | 2024-10-31 14:00 | DI.CT_ITS ---
Exam(s) CT CHEST PE CTA EXAM: CT CHEST PE CTA CLINICAL HISTORY: tachycardia, SOB. TECHNIQUE: Imaging Protocol: Axial CT angiography was performed with multi- slice acquisition and multi-planar reconstructions as well as axial, coronal and sagittal MIP reconstructions. Computer aided detection (CAD) was utilized. CONTRAST MATERIAL: Intravenous: Omnipaque 350 Contrast volume:70 ml COMPARISON: CR,XR XR PORTABLE CHEST AP from 07/20/[address] CHEST/ABD/PEL WO from 08/03/2024 FINDINGS: Pulmonary Arteries: Again noted to be dilated 2 5 cm. No evidence of filling defect to suggest pulmonary emboli. Mediastinum and Mag[place]: No dominant adenopathy or fluid collection. Pulmonary parenchyma: Evaluation somewhat limited due to respiratory motion. No consolidation or dominant measurable mass. Emphysematous changes. Expiratory changes. Pleura: Trace right pleural effusion. No pneumothorax. Heart: The heart is markedly dilated. Aortic and tricuspid valve prostheses. Mitral annular calcifications. Coronary artery calcifications are seen. Aorta: Ascending aorta measures 4.5 cm. No dissection. Upper abdomen: Small amount of ascites noted around the liver. Bones: Unremarkable for age. Sternal wires. Tubes, Catheters, and Lines: None Soft tissues: Diffuse body wall edema. IMPRESSION: No evidence of pulmonary embolism. The heart is markedly enlarged. Pulmonary arteries are also markedly enlarged. Body wall edema and mild amount of ascites. Findings called to Dr. Stroey of the emergency department. RADIATION DOSE DELIVERED: Total DLP DATA REPOSITORY: All CT scans at this facility are submitted to the National Radiology Data Registry (NRDR) Dose Index Registry (DIR) with the [employer] ([employer]). RADIATION OPTIMIZATION: All CT scans at this facility use at least one of these dose optimization techniques: automated exposure control; mA and/or kV adjustment per patient size (includes targeted exams where dose is matched to clinical indication); or iterative reconstruction.
--- NOTE | 2024-10-31 14:12 | DI.RAD_ITS ---
Exam(s) XR CHEST 1V IN DI DEPT EXAM: XR CHEST 1V IN DI DEPT CLINICAL HISTORY: SOB TECHNIQUE: 2D digital imaging was performed. COMPARISON: CR XR PORTABLE CHEST AP from 10/02/2024 FINDINGS: LUNGS: Overlying monitoring leads. The lungs are grossly clear. No pleural abnormality seen. HEART: Markedly enlarged. Valve prostheses. Pulmonary vascular prominence. AORTA: Normal diameter. BONES: Sternal wires. Soft tissues: Unremarkable. IMPRESSION: Cardiomegaly. No visible acute abnormality. DATA REPOSITORY: RADIATION DOSE DELIVERED:
[2024-10-31 14:27] LABS: BE (Venous) 9 mmol/L (-2-3); HCO3 (Venous) 34 mmol/L (23-28); O2 Sat (Venous) 94 %; TCO2 (Venous) 31 mmol/L (24-29); pCO2 (Venous) 52 mmHg (41-51); pO2 (Venous) 67 mmHg
[2024-10-31 14:30] LABS: Abs Immature Grans 0.04 10^3/uL (0.0-0.06); HCT 31.6 % (36.0-46.0); HGB 9.5 g/dL (11.2-15.7); Immature Grans % 0.6 %; MCH 30.6 pg (27.0-33.0); MCHC 30.1 % (32.0-36.0); MCV 102 fL (80-95); MPV 12.9 fL (8.0-11.0); Platelet Count 106 10^3/uL (130-400); RBC 3.10 10^6/uL (3.93-5.22); RDW 16.4 % (11.7-14.6); RDW-SD 61.1 fL; WBC 6.78 10^3/uL (4.4-10.8)
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
[2024-10-31] MEDS: Metoprolol 50 MG TAB 100 MG PO (14:58)
[2024-10-31] MEDS: amLODIPine 10 MG TAB PO (14:58)
[2024-10-31 15:02] LABS: ALT 23 U/L (14-59); AST 29 U/L (15-37); Albumin 4.1 g/dL (3.4-5.0); Alkaline Phosphatase 122 U/L (46-116); Anion Gap 10.1 mmol/L (3-11); BUN 38 mg/dL (7-18); Bilirubin, Total 0.6 mg/dL (0.2-1.0); CO2 32.9 mmol/L (21.0-32.0); Calcium 9.1 mg/dL (8.5-10.1); Chloride 97 mmol/L (98-107); Estimated GFR 9.07 (mL/min/1.73m2); Glucose 101 mg/dL (74-106); Magnesium 2.2 mg/dL (1.8-2.4); Potassium 4.4 mmol/L (3.5-5.1); Sodium 140 mmol/L (136-145); Total Protein 7.3 g/dL (6.4-8.2); Troponin I 44 ng/L (<or=51)
[2024-10-31] MEDS: Normal Saline Flush 10 ML SYR IVP (15:34)
[2024-10-31] MEDS: Omnipaque 350 MG/ML 100 ML BTL IJ (15:34)
[2024-10-31] MEDS: Normal Saline - Diluent 50 ML VIAL IJ (15:34)
[2024-10-31 15:57] LABS: COVID-19 PCR Negative (Negative); RSV PCR Negative (Negative)
[2024-10-31 15:58] LABS: Troponin I 44 ng/L (<or=51)
[2024-10-31] MEDS: Normal Saline 250 ML IV (16:46)
--- NOTE | 2024-10-31 18:00 | RT.EKG_ITS ---
APPROVED REPORT Exam: Resting ECG Reason for Exam: rhythm change Patient Location: E HR:127 bpm ECG Measurements Heart Rate 127 AXIS OK [id number] P [id number] QRSd 153 QRS 97 QT 381 T 3 QTc 555 Conclusion Atrial flutter with predominant 2:1 AV block...A-rate 241, multiple Ps RBBB and LPFB...QRSd >120mS, axis(90,210) No STEMI
--- NOTE | 2024-10-31 18:07 | NUR.NOTE ---
Nursing Note: Noticed rhythm change on monitor at the nurses station, notified, EKG ordered and in progress, pt. states after she ate dinner, she started feeling pressure in her chest thats radiating to her R shoulder. Denies pain at this time, pt. is alert.
[2024-10-31] MEDS: Ondansetron 4 MG/2 ML VIAL IM (18:26)
[2024-10-31 18:52] LABS: Troponin I 44 ng/L (<or=51)
[2024-10-31] MEDS: fentaNYL 100 MCG/2 ML VIAL 50 MCG IVP (19:44)
[2024-10-31] MEDS: Albuterol/Ipratropium 3 ML UPD VIAL UPD ×2 (20:52→23:38)
[2024-10-31] MEDS: MORPHine 4 MG/ML SYR IVP (21:06)
[2024-10-31] MEDS: Acetaminophen 500 MG TAB 1000 MG PO (21:06)
[2024-11-01] VITALS (101 sets, daily range): BP systolic 85–115; BP diastolic 46–80; PULSE 108–121; RESP 12–28; O2SAT 92–100
--- NOTE | 2024-11-01 01:15 | W.EDPROG ---
Date of service: 11/01/24 Time of Service: 01:15 Medical Decision Making This patient was signed out to me. Please see previous notes for H&P and initial eval. In brief, 59yo F ESRD diaylsis M/W/F presenting with respiratory distress, volume overload. Intermittenly soft pressures with consideration for starting of pressors however ultimately pt with MAP consistently >65 and so remains off pressors at time of signout. Accepted to [facility]; no transport available until 0900. Will remain in the ED until then. On my assessment pt non-toxic appearing, no significant respiratory distress, BP, in good spirits. Remains tachycardiac to 110's which is consistent with prior [facility] vital signs from earlier this month as well as September; given fluid status and tenuous hemodynamics would not intervene on this. Overnight no acute events. BP remains adequate, HR continues in 110's. Plan for transport via [place] at around 0900. Oncoming physician will be made aware of patient; a follow-on note will be written if there is a change in patient status or condition. Quality:SDOH Health Related Social Needs: Health related social needs house/econ circumstance daily activities lonely/isolated Discharge Plan Disposition Patient Disposition: Transfer-Acute Inpatient Care Specific Acute Inpt Facility: Other Condition: Fair Discharge Details Clinical Impression: Respiratory failure, Volume overload, End-stage renal disease (ESRD) Primary Care Provider: Chano Neves ED Provider: Hortencia Childers Home Meds and New Rx's Prescriptions: Continued lorazepam 1 mg tablet 1 mg PO DAILY Qty: 30 1RF prednisone 20 mg tablet 40 mg PO DAILY Qty: 10 0RF sertraline 50 mg tablet 50 mg PO DAILY Qty: 90 0RF prazosin 1 mg capsule 1 mg PO QHS Qty: 30 2RF albuterol sulfate [Ventolin HFA] 90 mcg/actuation HFA aerosol inhaler 2 puff inhalation QID PRN (Reason: shortness of breath or wheezing) Qty: 8.5 5RF atorvastatin 40 mg tablet 40 mg PO DAILY Breztri Aerosphere 160-9-4.8 mcg/actuation HFA aerosol inhaler 2 inh inhalation BID ipratropium-albuterol 0.5 mg-3 mg(2.5 mg base)/3 mL solution for nebulization 3 ml IH Q6H Qty: 90 0RF albuterol sulfate 2.5 mg /3 mL (0.083 %) solution for nebulization 2.5 mg inhalation Q6H PRN (Reason: shortness of breath or wheezing) Qty: 3 0RF Rx Instructions: [facility] ([facility]) Aerochamber MV Spacer MISCELLANEOUS sevelamer carbonate 800 mg tablet 1,600 mg PO AC Patient Comments: TAKE 2 TABLETS BY MOUTH THREE TIMES DAILY WITH MEALS trazodone 100 mg tablet 100 mg PO QHS PRN metoprolol succinate 100 mg tablet extended release 24 hr 100 mg PO DAILY Patient Comments: TAKE 1 TABLET BY MOUTH EVERY DAY prednisone 50 mg tablet 50 mg PO DAILY Qty: 5 0RF Eliquis 2.5 mg tablet 2.5 mg PO BID minoxidil 2.5 mg tablet 2.5 mg PO BID Patient Comments: TAKE 1 TABLET BY MOUTH EVERY DAY AT BEDTIME amlodipine 10 mg tablet 10 mg PO DAILY aspirin [Adult Aspirin Regimen] 81 mg tablet,delayed release (DR/EC) 81 mg PO DAILY benzonatate 100 mg capsule 100 mg PO TID PRN epinephrine [Auvi-Q] 0.3 mg/0.3 mL auto-injector 0.3 ml subcut Q5-15M PRN Rx Instructions: do not exceed 2 doses per episode meclizine 12.5 mg tablet 12.5 mg PO TID PRN nifedipine 60 mg tablet extended release 120 mg PO DAILY omeprazole 40 mg capsule,delayed release(DR/EC) 40 mg PO DAILY tiotropium bromide 18 mcg capsule, w/inhalation device 1 cap inhalation DAILY Rx Instructions: puncture 1 cap using device; one dose = 2 inhalations Discharge Instructions Instructions: Hemodialysis
--- NOTE | 2024-11-01 02:11 | NUR.NOTE ---
assumed care of PT from PD PMNursing Note:
[2024-11-01] MEDS: Albuterol/Ipratropium 3 ML UPD VIAL UPD (03:43)
--- NOTE | 2024-11-01 10:34 | NUR.NOTE ---
Access chart to reconcile EKG's in [facility] with EKG orders. EKG needs to be read. Nursing Note:
== END 2024-11-01 09:40 | disposition short-term general hospital (02) ==
PROVIDERS: General Practice; Emergency Provider Student in an Organized Health Care Education/Training Program; PCP Family Medicine
DX: J96.90 Respiratory failure, unspecified, unspecified whether with hypoxia or hypercapnia (principal); N18.6 End stage renal disease; E87.70 Fluid overload, unspecified
CPT/HCPCS: 00123; 36415; 71275; 80053; 82805; 87637; 93005; 93308; 96361; 96372; 96374; 96375; 99285; 71045; 83735; 84484; 85025; 93010; J2270; J2405; J3010; J3490; J7620

== ENCOUNTER 2024-11-17 16:20 | Emergency (ER) | payer MEDICARE, SELFPAY ==
[2024-11-17] VITALS (10 sets, daily range): BP systolic 44–134; BP diastolic 26–79; PULSE 125–179; RESP 15–18; O2SAT 92–97
--- NOTE | 2024-11-17 16:00 | DI.RAD_ITS ---
Exam(s) XR PORTABLE CHEST AP EXAM: XR PORTABLE CHEST AP CLINICAL HISTORY: tube placement. TECHNIQUE: 2D digital imaging was performed. COMPARISON: No exams were available for comparison FINDINGS: Single AP portable view. The patient is intubated. The distal tip of the endotracheal tube is in the right mainstem bronchus and needs to be repositioned to level of the kristen. NG tube is in the stomach. There is sternotomy wires again noted and there are prosthetic aortic valves again noted. No infiltrates nor pleural effusions. No pulmonary edema. No fractures. No pneumothorax. IMPRESSION: Endotracheal tube is in the proximal aspect of the right mainstem bronchus and needs to be repositioned above the level the kristen. NG tube is in satisfactory position in the stomach. No acute pulmonary findings. DATA REPOSITORY: RADIATION DOSE DELIVERED:
[2024-11-17] MEDS: PROPOFOL 1,000 MG/100 ML BTL 1.5 MG IV_INF (16:24)
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
[2024-11-17] MEDS: Norepinephrine in D5W 8 MG/250 ML BAG 9.3 MG IV (16:38)
[2024-11-17 16:39] LABS: Abs Immature Grans 0.12 10^3/uL (0.0-0.06); HCT 30.6 % (36.0-46.0); HGB 9.7 g/dL (11.2-15.7); Immature Grans % 1.2 %; MCH 33.1 pg (27.0-33.0); MCHC 31.7 % (32.0-36.0); MCV 104 fL (80-95); MPV 12.5 fL (8.0-11.0); Platelet Count 110 10^3/uL (130-400); RBC 2.93 10^6/uL (3.93-5.22); RDW 18.3 % (11.7-14.6); RDW-SD 69.6 fL; WBC 9.69 10^3/uL (4.4-10.8)
[2024-11-17 16:40] LABS: BE (Venous) 3 mmol/L (-2-3); HCO3 (Venous) 31 mmol/L (23-28); O2 Sat (Venous) 76 %; TCO2 (Venous) 30 mmol/L (24-29); pO2 (Venous) 50 mmHg
[2024-11-17 16:41] LABS: Carboxyhemoglobin 5.0 % (0.5-1.5)
[2024-11-17] MEDS: fentaNYL 1,000 MCG in Normal Saline 80 ML 2.5 MCG IV_INF (16:41)
[2024-11-17 16:44] LABS: pCO2 (Venous) 75 mmHg (41-51)
--- NOTE | 2024-11-17 17:00 | DI.RAD_ITS ---
Exam(s) XR PORTABLE CHEST AP POST LINE EXAM: XR PORTABLE CHEST AP POST LINE CLINICAL HISTORY: tube placement. TECHNIQUE: 2D digital imaging was performed. COMPARISON: CR XR PORTABLE CHEST AP from 11/17/2024 FINDINGS: Single AP portable view. The endotracheal tube has been repositioned 2 level just above the kristen. NG tube remains in good position in the stomach. Sternotomy wires, cardiomegaly, and to prosthetic heart valves are again noted. Lungs are clear. No infiltrates nor obvious pleural effusions. No evidence of pulmonary edema. IMPRESSION: No acute pulmonary findings on this single AP portable view of the chest. Endotracheal tube is now just above the level the kristen. NG tube remains in good position in the gastric fundus. DATA REPOSITORY: RADIATION DOSE DELIVERED:
[2024-11-17 17:06] LABS: ALT 32 U/L (14-59); AST 43 U/L (15-37); Albumin 3.5 g/dL (3.4-5.0); Alkaline Phosphatase 116 U/L (46-116); Anion Gap 7.1 mmol/L (3-11); BUN 50 mg/dL (7-18); Bilirubin, Total 1.0 mg/dL (0.2-1.0); CO2 32.9 mmol/L (21.0-32.0); Calcium 7.0 mg/dL (8.5-10.1); Chloride 92 mmol/L (98-107); Creatine Kinase 145 U/L (26-192); Estimated GFR 7.18 (mL/min/1.73m2); Glucose 144 mg/dL (74-106); Magnesium 1.9 mg/dL (1.8-2.4); Potassium 5.4 mmol/L (3.5-5.1); Sodium 132 mmol/L (136-145); Total Protein 6.6 g/dL (6.4-8.2)
[2024-11-17 17:37] LABS: INR 1.2 (0.9-1.1); PTT Activated 23.4 sec (20.6-30.2); Prothrombin Time 12.0 sec (9.1-11.1)
--- NOTE | 2024-11-17 17:54 | DI.VRAD_ITS ---
PROCEDURE INFORMATION: Exam: XR Chest Exam date and time: 11/17/2024 4:48 PM Age: 59 years old Clinical indication: Device placement; Ett placement (vent status); Tube placement TECHNIQUE: Imaging protocol: Radiologic exam of the chest. Views: 1 view. COMPARISON: CR XR CHEST 1V IN DI DEPT 10/31/2024 3:57 PM FINDINGS: Tubes, catheters and devices: There is an endotracheal catheter in-situ with its tip located at the takeoff of the right mainstem bronchus. This catheter should be pulled back proximally 2 cm. There is a nasogastric/orogastric catheter entering from above and terminating in the left upper quadrant in the expected location of the gastric fundus. Lungs: No gross focal pulmonary consolidation is seen. Pleural spaces: No right-sided pleural effusion is demonstrated. The left costophrenic angle is partially obscured, probably from overlying soft tissue although a small pleural effusion would be difficult to exclude. No pneumothorax is seen. Heart/Mediastinum: The heart is enlarged. There are prosthetic mitral and aortic valves. There has been a prior median sternotomy. Bones/joints: The visualized bony structures appear grossly intact. Gastrointestinal tract: There is unusual heterogeneous somewhat hyperdense material projecting over the left upper quadrant with a tangled tubular appearance, uncertain etiology. Gastric contents ? IMPRESSION: Endotracheal catheter in-situ with its tip at the takeoff of the right mainstem bronchus. This catheter should be pulled back 2 cm. Dictated and Authenticated by: Cash Rodriguez MD. Orderin Kwame Walker MD
--- NOTE | 2024-11-17 17:58 | DI.VRAD_ITS ---
PROCEDURE INFORMATION: Exam: XR Chest Exam date and time: 11/17/2024 4:48 PM Age: 59 years old Clinical indication: Screening exam; Other screening; Tube placement post retracting per phys instruction TECHNIQUE: Imaging protocol: Radiologic exam of the chest. Views: 1 view. COMPARISON: 1. CR XR CHEST 1V IN DI DEPT 10/31/2024 3:57 PM 2. CR XR PORTABLE CHEST AP 11/17/2024 4:49 p.m. FINDINGS: Tubes, catheters and devices: An endotracheal catheter has been pulled back since the prior exam and now terminates 2.5 cm above the kristen. A nasogastric/orogastric catheter enters from above and terminates in the left upper quadrant in the expected location of the gastric fundus. Lungs: No gross focal pulmonary consolidation is seen. No gross focal pulmonary consolidation is seen. Pleural spaces: No right-sided pleural effusion is demonstrated. The left costophrenic angle is somewhat obscured, possibly from overlying soft tissue although a small left-sided pleural effusion is not excluded. No pneumothorax is demonstrated. Heart/Mediastinum: Cardiomegaly is redemonstrated with prosthetic mitral and aortic valves and median sternotomy wires. Bones/joints: The visualized bony structures appear grossly intact. Gastrointestinal tract: Amorphous hyperdense material projecting over the left upper quadrant has a tangled, tubular appearance. This finding is of uncertain chronicity but could represent vascular calcification or gastric contents. Notes: The current exam was obtained at 4:57 p.m. IMPRESSION: An endotracheal catheter has been pulled back since the recent prior exam and now terminates 2.5 cm above the kristen. Dictated and Authenticated by: Cash Rodriguez MD. Orderin Kwame Walker MD
== END 2024-11-17 17:37 ==
PROVIDERS: Emergency Provider Emergency Medicine; PCP Family Medicine
DX: T20.39XA Burn of third degree of multiple sites of head, face, and neck, initial encounter (principal); X04.XXXA Exposure to ignition of highly flammable material, initial encounter; Z99.81 Dependence on supplemental oxygen; Z79.01 Long term (current) use of anticoagulants; Z59.89 Other problems related to housing and economic circumstances; Z60.8 Other problems related to social environment; Z72.0 Tobacco use
CPT/HCPCS: 96375; 99291; 96374; 71045; 80053; 82375; 82550; 82805; 83605; 83735; 85025; 85610; 85730; J2704; J3010

== ENCOUNTER 2024-11-21 15:27 | Emergency (ER) | payer MEDICARE, SELFPAY ==
[2024-11-21] VITALS (8 sets, daily range): BP systolic 101–133; BP diastolic 31–97; PULSE 116–124; RESP 22; O2SAT 98–100
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
--- NOTE | 2024-11-21 15:30 | RT.EKG_ITS ---
APPROVED REPORT Exam: Resting ECG Reason for Exam: Difficulty Breathing Patient Location: E HR:124 bpm ECG Measurements Heart Rate 124 AXIS MD 62 P 0 QRSd 161 QRS 48 QT 397 T -56 QTc 571 Conclusion Sinus tachycardia, rate 124 RBBB unchanged from priors No STEMI
[2024-11-21] MEDS: Albuterol/Ipratropium 3 ML UPD VIAL UPD ×2 (16:00→17:11)
[2024-11-21] MEDS: methylPREDNISolone SUCC 125 MG VIAL IVP (16:25)
[2024-11-21] MEDS: HYDROmorphone 2 MG/ML SYR 0.5 MG IVP ×2 (16:28→17:11)
[2024-11-21 16:34] LABS: Abs Immature Grans 0.02 10^3/uL (0.0-0.06); HCT 29.5 % (36.0-46.0); HGB 8.8 g/dL (11.2-15.7); Immature Grans % 0.5 %; MCH 29.9 pg (27.0-33.0); MCHC 29.8 % (32.0-36.0); MCV 100 fL (80-95); MPV 11.6 fL (8.0-11.0); Platelet Count 104 10^3/uL (130-400); RBC 2.94 10^6/uL (3.93-5.22); RDW 17.6 % (11.7-14.6); RDW-SD 65.6 fL; WBC 4.36 10^3/uL (4.4-10.8)
[2024-11-21 16:59] LABS: ALT 21 U/L (14-59); AST 17 U/L (15-37); Albumin 3.4 g/dL (3.4-5.0); Alkaline Phosphatase 151 U/L (46-116); Anion Gap 8.3 mmol/L (3-11); BUN 33 mg/dL (7-18); Bilirubin, Total 0.7 mg/dL (0.2-1.0); CO2 31.7 mmol/L (21.0-32.0); Calcium 8.3 mg/dL (8.5-10.1); Chloride 94 mmol/L (98-107); Estimated GFR 9.29 (mL/min/1.73m2); Glucose 97 mg/dL (74-106); Magnesium 2.0 mg/dL (1.8-2.4); Potassium 4.8 mmol/L (3.5-5.1); Sodium 134 mmol/L (136-145); Total Protein 6.6 g/dL (6.4-8.2)
[2024-11-21] MEDS: Acetaminophen 500 MG TAB 1000 MG PO (17:11)
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
[2024-11-21] MEDS: oxyCODONE 5 MG TAB PO ×2 (18:04→18:42)
[2024-11-21 18:29] LABS: NT-proBNP > 35000 pg/mL (<300)
[2024-11-21] MEDS: Gabapentin 300 MG CAP PO (18:42)
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
[2024-11-21] MEDS: MORPHine IR 15 MG TAB, 4 TABS/BTL PO (19:55)
== END 2024-11-21 20:54 | disposition home or self-care (01) ==
PROVIDERS: Emergency Medicine; Emergency Provider General Practice; PCP Family Medicine
DX: N18.6 End stage renal disease (principal); I50.9 Heart failure, unspecified; T20.04XD Burn of unspecified degree of nose (septum), subsequent encounter
CPT/HCPCS: 94640; 96374; 96375; 96376; 00123; 80053; 93005; 99285; 71046; 83605; 83735; 83880; 85025; 93010; 99284; J1171; J2919; J7620

== ENCOUNTER 2024-12-02 15:44 | Outpatient (REF) | payer MEDICARE, SELFPAY | END 2024-12-02 15:45 | disposition home or self-care (01) | LOC: NCHCN 15:44 | PROVIDERS: PCP Family Medicine; Visit Provider Family Medicine | DX: N98.8 Other complications associated with artificial fertilization (principal); N93.9 Abnormal uterine and vaginal bleeding, unspecified | CPT/HCPCS: 87480; 87510; 87660 ==

== ENCOUNTER 2024-12-19 09:02 | Emergency (ER) | payer OTHER, SELFPAY ==
[2024-12-19] VITALS (30 sets, daily range): BP systolic 105–177; BP diastolic 22–123; PULSE 105–144; RESP 15–32; TEMP 36.4; O2SAT 93–97
--- NOTE | 2024-12-19 09:00 | RT.EKG_ITS ---
APPROVED REPORT Exam: Resting ECG Reason for Exam: SOB Patient Location: E HR:138 bpm ECG Measurements Heart Rate 138 AXIS WA 71 P -14 QRSd 141 QRS 118 QT 350 T -3 QTc 530 Conclusion Sinus tachycardia vs A-flutter, rate 138 RBBB No significant changes from priors No STEMI
--- NOTE | 2024-12-19 09:19 | DI.RAD_ITS ---
Exam(s) XR PORTABLE CHEST AP EXAM: XR PORTABLE CHEST AP CLINICAL HISTORY: shortness of breath TECHNIQUE: 2D digital imaging was performed of the chest. One image was obtained. An AP view was obtained. COMPARISON: CR,XR XR PORTABLE CHEST AP POST LINE from 11/17/2024 CR XR CHEST 2V PA LATERAL from 11/21/2024 FINDINGS: MEDIASTINUM: Normal. HEART: The heart is enlarged. There are again seen cardiac valvular prostheses. PULMONARY VASCULATURE: Normal. LUNGS: Clear. PLEURAL SPACE: No pleural effusion or pneumothorax. BONE:Within normal limits for the patient's age. OTHER FINDINGS:Normal. IMPRESSION: No acute pulmonary findings. DATA REPOSITORY: RADIATION DOSE DELIVERED:
[2024-12-19] MEDS: Levalbuterol 1.25 MG/3 ML UPD VIAL 2.5 MG UPD (09:27)
[2024-12-19 09:30] LABS: BE (Venous) 8 mmol/L (-2-3); HCO3 (Venous) 33 mmol/L (23-28); O2 Sat (Venous) 86 %; TCO2 (Venous) 31 mmol/L (24-29); pCO2 (Venous) 56 mmHg (41-51); pO2 (Venous) 55 mmHg
[2024-12-19] MEDS: methylPREDNISolone SUCC 125 MG VIAL 80 MG IVP (09:44)
[2024-12-19] MEDS: MAGNESIUM SULFATE 1 GM/100 ML BAG IV_INF (09:45)
[2024-12-19 09:58] LABS: Magnesium 2.1 mg/dL (1.8-2.4); TSH (W/Ref FT4) 4.56 uIU/mL (0.36-3.74); Troponin I 38 ng/L (<or=51)
[2024-12-19 09:59] LABS: NT-proBNP > 35000 pg/mL (<300)
[2024-12-19] MEDS: Normal Saline 500 ML 250 ML IV (10:32)
[2024-12-19] MEDS: Metoprolol 5 MG/5 ML VIAL IVP ×3 (11:11→12:17)
[2024-12-19] MEDS: PIPERACILLIN/TAZO 2.25 GM in Normal Saline 50 ML IVPB (11:12)
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
[2024-12-19 11:13] LABS: COVID-19 PCR Negative (Negative); RSV PCR Negative (Negative)
[2024-12-19 11:22] LABS: Lab Add On Test DONE
[2024-12-19 11:25] LABS: BE (Venous) 7 mmol/L (-2-3); HCO3 (Venous) 31 mmol/L (23-28); O2 Sat (Venous) 93 %; TCO2 (Venous) 29 mmol/L (24-29); pCO2 (Venous) 50 mmHg (41-51); pO2 (Venous) 67 mmHg
[2024-12-19 11:30] LABS: HCT 38.3 % (36.0-46.0); HGB 11.3 g/dL (11.2-15.7); MCH 30.5 pg (27.0-33.0); MCHC 29.5 % (32.0-36.0); MCV 104 fL (80-95); MPV 13.4 fL (8.0-11.0); RBC 3.70 10^6/uL (3.93-5.22); RDW 17.2 % (11.7-14.6); RDW-SD 66.5 fL; WBC 4.97 10^3/uL (4.4-10.8)
[2024-12-19 11:32] LABS: Platelet Count 95 10^3/uL (130-400)
[2024-12-19 11:34] LABS: ALT 22 U/L (14-59); AST 48 U/L (15-37); Albumin 3.9 g/dL (3.4-5.0); Alkaline Phosphatase 179 U/L (46-116); Anion Gap 13.4 mmol/L (3-11); BUN 32 mg/dL (7-18); Bilirubin, Total 0.8 mg/dL (0.2-1.0); CO2 30.6 mmol/L (21.0-32.0); Calcium 9.4 mg/dL (8.5-10.1); Chloride 97 mmol/L (98-107); Estimated GFR 9.76 (mL/min/1.73m2); Glucose 96 mg/dL (74-106); Potassium 5.4 mmol/L (3.5-5.1); Sodium 141 mmol/L (136-145); Total Protein 7.7 g/dL (6.4-8.2)
[2024-12-19 11:46] LABS: Troponin I 38 ng/L (<or=51)
[2024-12-19 13:29] LABS: Anion Gap 13.5 mmol/L (3-11); BUN 32 mg/dL (7-18); CO2 30.5 mmol/L (21.0-32.0); Calcium 9.2 mg/dL (8.5-10.1); Chloride 98 mmol/L (98-107); Estimated GFR 9.76 (mL/min/1.73m2); Glucose 106 mg/dL (74-106); Potassium 5.2 mmol/L (3.5-5.1); Sodium 142 mmol/L (136-145)
== END 2024-12-19 16:24 | disposition short-term general hospital (02) ==
PROVIDERS: Emergency Provider Physician Assistant; PCP Family Medicine
DX: I50.9 Heart failure, unspecified (principal); J96.90 Respiratory failure, unspecified, unspecified whether with hypoxia or hypercapnia; N18.6 End stage renal disease; R06.02 Shortness of breath
CPT/HCPCS: 99285 ×2; 94640; 96375; 96376; 80048; 80053; 82805; 85027; 87040; 87637; 93005; 96365; 96367; 71045; 83605; 83735; 83880; 84439; 84443; 84484; 93010; J2543; J2919; J3475; J7614

== ENCOUNTER 2024-12-29 11:42 | Emergency (ER) | payer OTHER, SELFPAY ==
[2024-12-29] VITALS (47 sets, daily range): BP systolic 101–161; BP diastolic 51–105; PULSE 109–143; RESP 14–26; TEMP 36.6; O2SAT 93–100
--- NOTE | 2024-12-29 12:15 | RT.EKG_ITS ---
APPROVED REPORT Exam: Resting ECG Reason for Exam: abd pain Patient Location: E HR:120 bpm ECG Measurements Heart Rate 120 AXIS NE 118 P 78 QRSd 144 QRS -35 QT 377 T -26 QTc 533 Conclusion Sinus tachycardia...rate> 99 Right bundle branch block...QRSd>120, terminal axis(90,270) No STEMI
--- NOTE | 2024-12-29 12:28 | DI.CT_ITS ---
Exam(s) CT ABDOMEN PELVIS CTA EXAM: CT ABDOMEN PELVIS CTA CLINICAL HISTORY: abd pain, gi bleed. TECHNIQUE: Imaging Protocol: Axial CT angiography was performed with multi- slice acquisition and multi-planar and/or 3D reconstructions. CONTRAST MATERIAL: Intravenous: Omnipaque 350 Contrast volume:60 ml Oral: no COMPARISON: CT CT ABDOMEN PELVIS CTA from 10/18/2024 FINDINGS: Heart: Cardiomegaly again noted. Both aortic and mitral valve prostheses are present. Aorta: Stable mild dilatation to 26.8 cm. Severe atherosclerotic calcification no dissection. No significant stenosis. Iliac Arteries: Severe atherosclerotic calcification. Severe stenosis in the proximal external iliac artery. Common Femoral Arteries: No evidence of stenosis. Celiac Gilmer:No evidence of stenosis. SMA: No evidence of stenosis. Renal Arteries: No evidence of stenosis. There is a single renal artery perfusing each kidney. DEANNE: Patent. Venous structures: Patent. Dilated IVC and portal vein. Lung bases:Limited evaluation due to respiratory motion. No acute findings. Small hiatal hernia Liver: Cirrhotic appearing liver. No measurable mass. Gallbladder and biliary tract: Cholelithiasis again noted.. No gallbladder wall thickening. No biliary dilation. Pancreas: Normal density, no abnormal calcifications or inflammatory process. Small cyst in the head of the pancreas not well evaluated due to motion and adjacent duodenum. Stable from prior. Spleen: Enlarged. Kidneys: Severe bilateral renal atrophy. No obstructive uropathy. No masses seen. No evidence of calculi. Adrenal glands: No masses seen. Bladder: Empty, not well evaluated. Bowel: Diverticulum of the descending duodenum. No obstruction or bowel wall thickening. No abnormal contrast extravasation. Severe diverticulosis. Peritoneal cavity: Mild amount ascites. No focal collection. No mesenteric inflammatory response. Lymph nodes: Within normal limits. Reproductive: Unremarkable. Soft Tissues:Diffuse edema. Atrophy of the left rectus muscle. Small fat containing right upper quadrant hernia. Upper anterior midline abdominal wall hernia repair. Bones: No acute findings. IMPRESSION: Stable severe stenosis of the left external iliac artery. No evidence of GI bleed. Cirrhotic liver. Mild ascites. Anasarca. Splenomegaly. Stable small cyst in the head of the pancreas. The preliminary [facility] report was reviewed. RADIATION DOSE DELIVERED: Total DLP DATA REPOSITORY: All CT scans at this facility are submitted to the National Radiology Data Registry (NRDR) Dose Index Registry (DIR) with the [employer] (ACR). RADIATION OPTIMIZATION: All CT scans at this facility use at least one of these dose optimization techniques: automated exposure control; mA and/or kV adjustment per patient size (includes targeted exams where dose is matched to clinical indication); or iterative reconstruction.
--- NOTE | 2024-12-29 12:30 | DI.RAD_ITS ---
Exam(s) XR CHEST 2V PA LATERAL EXAM: XR CHEST 2V PA LATERAL CLINICAL HISTORY: shortness of breath, gi bleed TECHNIQUE: 2D digital imaging was performed. Two views. COMPARISON: CR XR PORTABLE CHEST AP from 12/19/2024 FINDINGS: HEART: Enlarged. Aortic and mitral valve prostheses. Aorta: Mildly tortuous. PULMONARY VASCULATURE: Prominent. MEDIASTINUM: Unremarkable. LUNGS: Clear. PLEURAL SPACE: No pleural effusion or pneumothorax. BONE:Sternal wires. SOFT TISSUES: Unremarkable. IMPRESSION: Cardiomegaly. Pulmonary vascular congestion. No evidence of overt pulmonary edema or focal infiltrate. The preliminary [facility] report was reviewed. DATA REPOSITORY: RADIATION DOSE DELIVERED:
[2024-12-29 13:02] LABS: Abs Immature Grans 0.01 10^3/uL (0.0-0.06); HCT 31.1 % (36.0-46.0); HGB 9.5 g/dL (11.2-15.7); Immature Grans % 0.2 %; MCH 30.0 pg (27.0-33.0); MCHC 30.5 % (32.0-36.0); MCV 98 fL (80-95); MPV 12.9 fL (8.0-11.0); Platelet Count 107 10^3/uL (130-400); RBC 3.17 10^6/uL (3.93-5.22); RDW 15.5 % (11.7-14.6); RDW-SD 55.8 fL; WBC 4.57 10^3/uL (4.4-10.8)
[2024-12-29 13:21] LABS: Prothrombin Time 12.4 sec (9.1-11.1)
[2024-12-29 13:23] LABS: INR 1.2 (0.9-1.1)
[2024-12-29] MEDS: Normal Saline - Diluent 50 ML VIAL IJ (13:24)
[2024-12-29] MEDS: Omnipaque 350 MG/ML 100 ML BTL IJ (13:24)
[2024-12-29] MEDS: Normal Saline Flush 10 ML SYR IVP (13:24)
[2024-12-29] MEDS: ACETAMINOPHEN 500 MG/50 ML BAG 200 MG IVPB (13:25)
[2024-12-29] MEDS: Pantoprazole 40 MG VIAL IVP (13:40)
[2024-12-29 13:50] LABS: ALT 26 U/L (14-59); AST 33 U/L (15-37); Albumin 3.7 g/dL (3.4-5.0); Alkaline Phosphatase 212 U/L (46-116); Anion Gap 12.4 mmol/L (3-11); BUN 51 mg/dL (7-18); Bilirubin, Total 0.6 mg/dL (0.2-1.0); CO2 29.6 mmol/L (21.0-32.0); Calcium 9.4 mg/dL (8.5-10.1); Chloride 98 mmol/L (98-107); Estimated GFR 7.32 (mL/min/1.73m2); Glucose 98 mg/dL (74-106); Lipase 40 U/L (<78); Sodium 140 mmol/L (136-145); Total Protein 6.9 g/dL (6.4-8.2)
[2024-12-29 13:53] LABS: Potassium 6.1 mmol/L (3.5-5.1)
[2024-12-29] MEDS: Calcium Gluconate 4.65 MEQ/10 ML VIAL 4.65 MG IVP (14:35)
[2024-12-29] MEDS: Normal Saline 50 ML (14:42)
[2024-12-29] MEDS: DEXTROSE 10%-WATER 500 ML 30 ML IV (14:50)
[2024-12-29] MEDS: Insulin REGULAR-Human 100 UNITS/ML UNIT 10 UNITS IV (14:53)
[2024-12-29] MEDS: Sodium Zirconium Cyclosilicate 10 GM PKT PO (14:53)
[2024-12-29] MEDS: Dextrose 50%-Water 25 GM/50 ML SYR IVP (14:53)
--- NOTE | 2024-12-29 15:40 | DI.[facility]_ITS ---
PROCEDURE INFORMATION: Exam: CTA Abdomen and Pelvis With Contrast Exam date and time: 12/29/2024 1:24 PM Age: 59 years old Clinical indication: Other: Abd pain, gi bleed TECHNIQUE: Imaging protocol: Computed tomographic angiography of the abdomen and pelvis with contrast. Exam focused on the arteries. 3D rendering (Not supervised by radiologist): MIP and/or 3D reconstructed images were created by the technologist. Contrast material: OMNIPAQUE 350; Contrast volume: 60 ml; Contrast route: INTRAVENOUS (IV); COMPARISON: CT ABDOMEN PELVIS CTA 10/18/2024 12:14 PM FINDINGS: Heart: Cardiomegaly. Aortic and mitral valve replacements Esophagus: Distal esophageal wall thickening and small hiatal hernia. Aorta: Mild bulge of infrarenal abdominal aorta, measures up to 2.8 cm. No abdominal aortic aneurysm. Dense calcified atherosclerosis of iliac arteries and aortic branch vessels. Celiac and mesenteric arteries: Patent mesenteric vessels. Atherosclerosis at the origins. Renal arteries: No occlusion or significant stenosis. Atherosclerosis at origin. Right iliac arteries: No occlusion or significant stenosis. Moderate calcified atherosclerosis. Left iliac arteries: No occlusion or significant stenosis. Severe calcified atherosclerosis, unchanged. A segment of the proximal external iliac artery is severely narrowed however, more distally is patent. Liver: Cirrhotic liver morphology. intrahepatic IVC and hepatic veins, suggestive of increased right-sided pressures. Gallbladder and biliary ducts: Contracted stone filled gallbladder with mild wall thickening and mild pericholecystic stranding which may be reactive. Pancreas: No main duct dilatation. A 1.3 cm cystic lesion in the uncinate process on coronal image 24-28 adjacent to the main duct may represent a branch duct type IPMN. Spleen: Imyc-ae-wolxizrb splenomegaly. Adrenal glands: Unremarkable adrenal glands. Kidneys and ureters: Very severe bilateral renal atrophy. Stomach and bowel: No extravascular iodinated contrast or evidence of active GI bleed. Diverticulosis without diverticulitis. No bowel obstruction. No evidence of pneumatosis, portal venous gas or pneumoperitoneum. Appendix: No evidence of appendicitis. Intraperitoneal space: Mild ascites. Simple free fluid in the posterior pelvis, greater than physiologic amounts character Lymph nodes: Unremarkable. No enlarged lymph nodes. Urinary bladder: Empty urinary bladder Reproductive: Unremarkable as visualized. Bones/joints: Mild degenerative change of the spine. No aggressive bone lesion. Soft tissues: Anasarca. Very small fat containing hernia of the right upper abdomen with mild stranding of herniated fat, series 8, image 8. Asymmetric atrophy of the left rectus musculature, possibly post CVA IMPRESSION: 1. No active GI bleed identified 2. Cirrhotic liver morphology. Irey-cr-zmdpbopy splenomegaly and mild ascites, suggesting portal hypertension decompensated cirrhosis. 3. Diverticulosis without evidence of diverticulitis. 4. Multiple additional nonacute findings, including probable small branch duct type IPMN in the uncinate process of the pancreas, there is small fat containing ventral hernia, severe bilateral renal atrophy. Dictated and Authenticated by: Alyssa Beach MD. Orderin Kathryn Broussard MD
--- NOTE | 2024-12-29 15:46 | DI.[facility]_ITS ---
PROCEDURE INFORMATION: Exam: XR Chest Exam date and time: 12/29/2024 1:43 PM Age: 59 years old Clinical indication: Other: Shortness of breath, gi bleed TECHNIQUE: Imaging protocol: Radiologic exam of the chest. Views: 2 views. COMPARISON: CR XR PORTABLE CHEST AP 12/19/2024 9:56 AM FINDINGS: Tubes, catheters and devices: Prosthetic mitral and aortic valves Lungs: No focal consolidation. Pulmonary vascular congestion. Probable mild subsegmental atelectasis in the right lower lung zone. Pleural spaces: Unremarkable. No pleural effusion. No pneumothorax. Heart/Mediastinum: Enlarged cardiac silhouette. Vasculature: Tortuous atheromatous aorta. Bones/joints: Post median sternotomy. IMPRESSION: 1. Enlarged cardiac silhouette. 2. No focal consolidation. Pulmonary vascular congestion. Dictated and Authenticated by: Alyssa Beach MD. Orderin Kathryn Broussard MD
[2024-12-29] MEDS: MORPHine 10 MG/ML VIAL 2 MG IVP (15:56)
[2024-12-29 16:02] LABS: Abs Immature Grans 0.02 10^3/uL (0.0-0.06); HCT 32.4 % (36.0-46.0); HGB 10.0 g/dL (11.2-15.7); Immature Grans % 0.3 %; MCH 30.2 pg (27.0-33.0); MCHC 30.9 % (32.0-36.0); MCV 98 fL (80-95); MPV 12.6 fL (8.0-11.0); Platelet Count 123 10^3/uL (130-400); RBC 3.31 10^6/uL (3.93-5.22); RDW 15.5 % (11.7-14.6); RDW-SD 55.8 fL; WBC 7.03 10^3/uL (4.4-10.8)
[2024-12-29 16:14] LABS: Anion Gap 12.8 mmol/L (3-11); BUN 54 mg/dL (7-18); CO2 30.2 mmol/L (21.0-32.0); Calcium 9.3 mg/dL (8.5-10.1); Chloride 94 mmol/L (98-107); Estimated GFR 7.32 (mL/min/1.73m2); Glucose 96 mg/dL (74-106); Potassium 4.9 mmol/L (3.5-5.1); Sodium 137 mmol/L (136-145)
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
--- NOTE | 2024-12-29 18:10 | NUR.NOTE ---
Nursing Note: Contacted patients daughter Hortencia at patients request to lease picker her bright fob and vehicle. Hortencia states she will be by tonight or tomorrow AM depending on when she can get a ride and requested it be left at the check in desk. Bright Fob placed in a bag with a patient label on it and given to Access for Hortencia to lease picker- security is aware
== END 2024-12-29 18:17 | disposition short-term general hospital (02) ==
LOC: ER 14:12
PROVIDERS: Emergency Provider Physician Assistant; PCP Family Medicine
DX: E87.5 Hyperkalemia (principal); N18.9 Chronic kidney disease, unspecified; K92.2 Gastrointestinal hemorrhage, unspecified
CPT/HCPCS: 36415; 36416; 80048; 80053; 82962; 83690; 86850; 86900; 86901; 87077; 93005; 96365; 96375; 99291; 71046; 74174; 85025; 85610; 87070; 87186; 87205; 93010; J0131; J0612; J1815; J2270; J2470; J3490

== ENCOUNTER 2025-01-10 11:11 | Emergency (ER) | payer OTHER, SELFPAY ==
[2025-01-10] VITALS (77 sets, daily range): BP systolic 59–113; BP diastolic 14–91; PULSE 109–158; RESP 8–29; O2SAT 93–100
--- NOTE | 2025-01-10 10:45 | RT.EKG_ITS ---
APPROVED REPORT Exam: Resting ECG Reason for Exam: afib, hypotension Patient Location: E HR:135 bpm ECG Measurements Heart Rate 135 AXIS KS 61 P 0 QRSd 150 QRS 120 QT 377 T 15 QTc 566 Conclusion Sinus tachycardia vs A flutter, rate 135 Prolonged QTc at 566ms RBBB and LAFB, unchanged from priors ST depression lateral leads, likely rate related No STEMI
--- NOTE | 2025-01-10 11:00 | DI.RAD_ITS ---
Exam(s) XR PORTABLE CHEST AP EXAM: XR PORTABLE CHEST AP CLINICAL HISTORY: SOB. TECHNIQUE: 2D digital imaging was performed. COMPARISON: CR,XR XR CHEST 2V PA LATERAL from 12/29/2024 FINDINGS: Single AP portable view. Chest leads and cardiac pad in place Again or sternotomy wires, mild cardiomegaly and prosthetic mitral and aortic valves. Mediastinum is not widened. There is pulmonary vascular congestion and Lluvia B lines noted. Consistent with interstitial pulmonary edema. Small right pleural effusion noted IMPRESSION: Mild interstitial pulmonary edema. Small right pleural effusion. Prosthetic mitral and aortic valves. DATA REPOSITORY: RADIATION DOSE DELIVERED:
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
[2025-01-10 11:55] LABS: BE (Venous) 14 mmol/L (-2-3); HCO3 (Venous) 37 mmol/L (23-28); TCO2 (Venous) 35 mmol/L (24-29); pCO2 (Venous) 48 mmHg (41-51); pO2 (Venous) 109 mmHg
[2025-01-10] MEDS: Lactated Ringers 500 ML IV (11:55)
[2025-01-10 11:58] LABS: Abs Immature Grans 0.02 10^3/uL (0.0-0.06); HCT 29.5 % (36.0-46.0); HGB 9.2 g/dL (11.2-15.7); Immature Grans % 0.5 %; MCH 30.2 pg (27.0-33.0); MCHC 31.2 % (32.0-36.0); MCV 97 fL (80-95); MPV 12.3 fL (8.0-11.0); Platelet Count 95 10^3/uL (130-400); RBC 3.05 10^6/uL (3.93-5.22); RDW 16.5 % (11.7-14.6); RDW-SD 58.0 fL; WBC 4.08 10^3/uL (4.4-10.8)
[2025-01-10 12:10] LABS: INR 1.2 (0.9-1.1); Prothrombin Time 12.1 sec (9.1-11.1)
[2025-01-10 12:11] LABS: O2 Sat (Venous) > 99 %
[2025-01-10 12:20] LABS: ALT 31 U/L (14-59); AST 30 U/L (15-37); Albumin 3.7 g/dL (3.4-5.0); Alkaline Phosphatase 207 U/L (46-116); Anion Gap 8.7 mmol/L (3-11); BUN 17 mg/dL (7-18); Bilirubin, Total 0.6 mg/dL (0.2-1.0); CO2 36.3 mmol/L (21.0-32.0); Calcium 8.4 mg/dL (8.5-10.1); Chloride 96 mmol/L (98-107); Glucose 95 mg/dL (74-106); Magnesium 1.7 mg/dL (1.8-2.4); Potassium 4.0 mmol/L (3.5-5.1); Sodium 141 mmol/L (136-145); Total Protein 7.1 g/dL (6.4-8.2)
[2025-01-10 12:21] LABS: Troponin I 116 ng/L (<or=51)
[2025-01-10 12:28] LABS: COVID-19 PCR Negative (Negative); RSV PCR Negative (Negative)
[2025-01-10] MEDS: Albuterol/Ipratropium 3 ML UPD VIAL UPD (13:30)
[2025-01-10 13:35] LABS: Troponin I 111 ng/L (<or=51)
[2025-01-10 15:37] LABS: Troponin I 100 ng/L (<or=51)
== END 2025-01-10 16:43 | disposition short-term general hospital (02) ==
PROVIDERS: Emergency Provider Emergency Medicine; PCP Family Medicine
DX: I48.92 Unspecified atrial flutter (principal); I95.9 Hypotension, unspecified; N18.6 End stage renal disease; Z99.2 Dependence on renal dialysis; J44.9 Chronic obstructive pulmonary disease, unspecified; Z99.81 Dependence on supplemental oxygen; Z59.89 Other problems related to housing and economic circumstances; Z60.8 Other problems related to social environment; Z73.9 Problem related to life management difficulty, unspecified
CPT/HCPCS: 36415; 80053; 82805; 87637; 93005; 93308; 94640; 96360; 99285; 71045; 83735; 83880; 84484; 85025; 85610; 93010; J7620

== ENCOUNTER 2025-01-18 13:16 | Emergency (ER) | payer OTHER, SELFPAY ==
[2025-01-18 13:19] VITALS: BP 144/79; PULSE 81; RESP 22; TEMP 36.9; O2SAT 98
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
[2025-01-18] MEDS: Phenylephrine SPRAY 1% 15 ML BTL NS (13:50)
[2025-01-18] MEDS: Tranexamic Acid 1,000 MG/10 ML VIAL 500 MG NS (13:52)
[2025-01-18 15:27] VITALS: BP 140/84; PULSE 73; O2SAT 100
== END 2025-01-18 15:36 | disposition home or self-care (01) ==
PROVIDERS: Emergency Provider Registered Nurse Emergency; PCP Family Medicine
DX: R04.0 Epistaxis (principal)
CPT/HCPCS: 30901

== ENCOUNTER 2025-01-20 15:11 | Emergency (ER) | payer OTHER, SELFPAY ==
[2025-01-20] VITALS (75 sets, daily range): BP systolic 102–126; BP diastolic 56–75; PULSE 67–88; RESP 14–31; TEMP 37.4; O2SAT 88–100
--- NOTE | 2025-01-20 15:15 | RT.EKG_ITS ---
APPROVED REPORT Exam: Resting ECG Reason for Exam: Chest Pain Patient Location: E HR:81 bpm ECG Measurements Heart Rate 81 AXIS LA 149 P 53 QRSd 154 QRS 90 QT 450 T 43 QTc 525 Conclusion Sinus rhythm...normal P axis, V-rate 60- 99 RBBB and LPFB...QRSd >120mS, axis(90,210)
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
[2025-01-20] MEDS: Albuterol/Ipratropium 3 ML UPD VIAL UPD (15:35)
[2025-01-20 15:46] LABS: Abs Immature Grans 0.01 10^3/uL (0.0-0.06); HCT 25.4 % (36.0-46.0); HGB 7.8 g/dL (11.2-15.7); Immature Grans % 0.2 %; MCH 29.3 pg (27.0-33.0); MCHC 30.7 % (32.0-36.0); MCV 96 fL (80-95); MPV 11.8 fL (8.0-11.0); Platelet Count 103 10^3/uL (130-400); RBC 2.66 10^6/uL (3.93-5.22); RDW 16.9 % (11.7-14.6); RDW-SD 58.4 fL; WBC 4.57 10^3/uL (4.4-10.8)
[2025-01-20 15:55] LABS: INR 1.2 (0.9-1.1); Prothrombin Time 11.8 sec (9.1-11.1)
[2025-01-20] MEDS: methylPREDNISolone SUCC 125 MG VIAL IVP (15:58)
[2025-01-20 16:03] LABS: ALT 16 U/L (14-59); AST 29 U/L (15-37); Albumin 3.6 g/dL (3.4-5.0); Alkaline Phosphatase 190 U/L (46-116); Anion Gap 9.2 mmol/L (3-11); BUN 26 mg/dL (7-18); Bilirubin, Total 0.8 mg/dL (0.2-1.0); CO2 33.8 mmol/L (21.0-32.0); Calcium 8.5 mg/dL (8.5-10.1); Chloride 96 mmol/L (98-107); Glucose 73 mg/dL (74-106); Lipase 30 U/L (<78); Magnesium 1.9 mg/dL (1.8-2.4); Potassium 3.8 mmol/L (3.5-5.1); Sodium 139 mmol/L (136-145); Total Protein 7.2 g/dL (6.4-8.2)
[2025-01-20 16:08] LABS: Troponin I 139 ng/L (<or=51)
--- NOTE | 2025-01-20 16:21 | DI.RAD_ITS ---
Exam(s) XR CHEST 2V PA LATERAL EXAM: XR CHEST 2V PA LATERAL CLINICAL HISTORY: Chest pain TECHNIQUE: 2D digital imaging was performed. Two views. COMPARISON: CR,XR XR CHEST 2V PA LATERAL from 12/29/2024 CR XR PORTABLE CHEST AP from 01/10/2025 FINDINGS: HEART: Markedly enlarged, unchanged. Valve prostheses again noted. Aorta: Not dilated. PULMONARY VASCULATURE: Prominent. MEDIASTINUM: Unremarkable. LUNGS: Clear. PLEURAL SPACE: Tiny bilateral pleural effusions. No pneumothorax. BONE:Unremarkable for age. Sternal wires. SOFT TISSUES: Unremarkable. IMPRESSION: Cardiomegaly in part prominent pulmonary vascular. Small bilateral pleural effusions. The findings are consistent with mild CHF. DATA REPOSITORY: RADIATION DOSE DELIVERED:
[2025-01-20 17:28] LABS: COVID-19 PCR Negative (Negative); RSV PCR Negative (Negative)
[2025-01-20 17:32] LABS: Troponin I 141 ng/L (<or=51)
[2025-01-20] MEDS: DOXYCYCLINE 100 MG in Normal Saline 100 ML IVPB (18:09)
== END 2025-01-20 19:35 | disposition home or self-care (01) ==
PROVIDERS: Emergency Provider Emergency Medicine; PCP Family Medicine
DX: J44.1 Chronic obstructive pulmonary disease with (acute) exacerbation (principal); R07.9 Chest pain, unspecified; N18.6 End stage renal disease; Z99.2 Dependence on renal dialysis; Z99.81 Dependence on supplemental oxygen; Z86.79 Personal history of other diseases of the circulatory system; Z59.89 Other problems related to housing and economic circumstances; Z60.8 Other problems related to social environment; Z73.9 Problem related to life management difficulty, unspecified
CPT/HCPCS: 36415; 80053; 83690; 87637; 93005; 94640; 96365; 96375; 99284; 71046; 83735; 84484; 85025; 85610; 93010; J2919; J7620

== ENCOUNTER 2025-01-24 20:20 | Emergency (ER) | payer MEDICARE, SELFPAY ==
[2025-01-24] VITALS (30 sets, daily range): BP systolic 91–144; BP diastolic 41–80; PULSE 71–88; RESP 20; O2SAT 94–98
--- NOTE | 2025-01-24 20:15 | RT.EKG_ITS ---
APPROVED REPORT Exam: Resting ECG Reason for Exam: abd pain Patient Location: E HR:83 bpm ECG Measurements Heart Rate 83 AXIS ME 164 P -40 QRSd 157 QRS 32 QT 433 T -12 QTc 509 Conclusion Sinus rhythm...normal P axis, V-rate 60- 99 Right bundle branch block...QRSd>120, terminal axis(90,270) No STEMI
--- NOTE | 2025-01-24 20:22 | DI.RAD_ITS ---
Exam(s) XR CHEST 1V IN DI DEPT EXAM: XR CHEST 1V IN DI DEPT CLINICAL HISTORY: abdominal elizabeth. TECHNIQUE: 2D digital imaging was performed. COMPARISON: CR XR CHEST 2V PA LATERAL from 01/20/2025 FINDINGS: Single AP portable view. Sternotomy wires again noted Cardiomegaly again noted with 2 prosthetic aortic valves again evident. Mediastinum is not widened. Mild increased markings but no confluent infiltrates nor airspace pulmonary edema. There is slight blunting of both costophrenic angles may indicate small bilateral pleural effusions. IMPRESSION: Cardiomegaly. Sternotomy. Prosthetic heart valves.Small bilateral pleural effusions. DATA REPOSITORY: RADIATION DOSE DELIVERED:
--- NOTE | 2025-01-24 21:02 | NUR.NOTE ---
Pt is awake and alert. She answers questions readily, I live in a house, of course, where else would I live? I bought it myself, can't count on anyone anymore Pt states she no longer makes urine and pointed out the only place for IV access is her left arm as her right arm is for HD.Nursing Note:
[2025-01-24 21:47] LABS: Abs Immature Grans 0.02 10^3/uL (0.0-0.06); BE (Venous) 13 mmol/L (-2-3); HCO3 (Venous) 37 mmol/L (23-28); HCT 28.0 % (36.0-46.0); HGB 8.2 g/dL (11.2-15.7); Immature Grans % 0.4 %; MCH 28.9 pg (27.0-33.0); MCHC 29.3 % (32.0-36.0); MCV 99 fL (80-95); MPV 12.6 fL (8.0-11.0); O2 Sat (Venous) 66 %; Platelet Count 106 10^3/uL (130-400); RBC 2.84 10^6/uL (3.93-5.22); RDW 15.9 % (11.7-14.6); RDW-SD 57.4 fL; TCO2 (Venous) 36 mmol/L (24-29); WBC 4.85 10^3/uL (4.4-10.8); pCO2 (Venous) 58 mmHg (41-51); pO2 (Venous) 37 mmHg
[2025-01-24] MEDS: MORPHine 10 MG/ML VIAL 2 MG IVP (21:58)
[2025-01-24] MEDS: ACETAMINOPHEN 1,000 MG/100 ML BAG 400 MG IVPB (21:59)
[2025-01-24 22:05] LABS: Magnesium 1.8 mg/dL (1.6-2.6)
[2025-01-24 22:06] LABS: ALT 23 U/L (10-49); AST 36 U/L (<34); Albumin 4.4 g/dL (3.4-5.0); Alkaline Phosphatase 182 U/L (46-116); Anion Gap 9.9 mmol/L (3-11); BUN 24 mg/dL (9-23); Bilirubin, Total 0.50 mg/dL (0.2-1.2); CO2 35.8 mmol/L (20.0-31.0); Calcium 9.5 mg/dL (8.3-10.6); Chloride 97 mmol/L (98-107); Glucose 100 mg/dL (74-106); Potassium 3.6 mmol/L (3.5-5.1); Sodium 143 mmol/L (136-145); Total Protein 7.1 g/dL (5.7-8.2)
[2025-01-24 22:24] LABS: Troponin I 100 ng/L (<35)
--- NOTE | 2025-01-24 23:16 | DI.CT_ITS ---
Exam(s) CT ABDOMEN PELVIS CTA EXAM: CT ABDOMEN PELVIS CTA CLINICAL HISTORY: GI bleed. TECHNIQUE: Imaging Protocol: Axial computed tomography images with coronal and sagittal reformatted images were created and reviewed CONTRAST MATERIAL: Intravenous: Omnipaque 350 Contrast volume:75 mL Oral: None COMPARISON: CT CT ABDOMEN PELVIS CTA from 12/29/2024 FINDINGS: ABDOMEN: There is generalized anasarca. There is only minimal ascites. GI: There is no evidence of intraluminal contrast extravasation into the stomach, small bowel, and large bowel lumen to indicate culprit location for GI bleed. No evidence of obvious esophageal varices LIVER: Liver is again noted to be enlarged and cirrhotic. There are no focal hepatic lesions nor dilated intrahepatic ducts. The amount of perihepatic ascites has somewhat decreased when compared to 12/29/2024 CT images. There is no recanalization umbilical vein. GALLBLADDER/BILIARY: Multiple small gallstones are again noted in the gallbladder lumen. The gallbladder is not edematous nor distended. CBD diameter is upper normal and there are no radiopaque calculi in the CBD. PANCREAS: No evidence of pancreatic mass nor dilatation of the pancreatic duct. No evidence of acute nor chronic pancreatitis. No pancreatic calcifications evident. The adjacent serpiginous splenic artery is again noted be heavily calcified but without aneurysm. SPLEEN: There is splenomegaly again noted. No splenic lesions evident. Splenic and portal veins are patent. ADRENALS: There are no significant adrenal masses. KIDNEYS: Severely atrophic bilateral kidneys again noted. No hydronephrosis. No hydroureter.. ABDOMINAL AORTA: Abdominal AA aorta and iliac arteries are heavily calcified. Maximum diameter of the abdominal aorta is 2.6 cm. There is also no significant aneurysmal dilatation of the iliac arteries. LYMPH NODES: There is no retroperitoneal nor para-aortic adenopathy. No obvious mesenteric masses. ABDOMINAL WALL: Again noted is anterior abdominal wall midline supraumbilical hernia mesh. No associated fluid collection nor abscess in this region. There is also hernia mesh over the anterior left abdominal-pelvic wall. GI: There is no evidence of bowel obstruction, free air, nor abscess. PELVIS: LYMPH NODES: There is no intrapelvic nor inguinal adenopathy. GI: No evidence of appendicitis.No evidence of sigmoid diverticulitis. URINARY BLADDER: Collapsed. REPRODUCTIVE: Smaller surgically absent uterus. No abnormal adnexal masses. OSSEOUS: No significant osseous lesions. IMPRESSION: 1. Hepatomegaly and hepatic cirrhosis again noted. Also splenomegaly. There is mild ascites. The amount of ascites is actually slightly decreased when compared to the most recent CT scan of 12/29/2024. There is, however, diffuse symmetrical anasarca again evident. 2. There is no demonstrated intra lumen extravasation of injected contrast to indicate site of active GI hemorrhage. There are no esophageal varices and no evidence of recanalization of the umbilical vein. 3. Cholelithiasis without evidence of acute cholecystitis nor significant dilatation of the biliary tree. 4. Severely atrophic bilateral kidneys (dialysis patient). Other findings as above. Preliminary virtual Radiology report was reviewed RADIATION DOSE DELIVERED: 893.87mGy.cm Total DLP DATA REPOSITORY: All CT scans at this facility are submitted to the National Radiology Data Registry (NRDR) Dose Index Registry (DIR) with the [employer] (A[employer]). RADIATION OPTIMIZATION: All CT scans at this facility use at least one of these dose optimization techniques: automated exposure control; mA and/or kV adjustment per patient size (includes targeted exams where dose is matched to clinical indication); or iterative reconstruction.
[2025-01-24] MEDS: HYDROmorphone 2 MG/ML SYR 0.5 MG IVP (23:20)
[2025-01-24] MEDS: Omnipaque 350 MG/ML 100 ML BTL IJ (23:39)
[2025-01-24] MEDS: Normal Saline - Diluent 50 ML VIAL IJ (23:40)
[2025-01-24] MEDS: Normal Saline Flush 10 ML SYR IVP (23:40)
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
--- NOTE | 2025-01-24 23:52 | DI.VRAD_ITS ---
PROCEDURE INFORMATION: Exam: XR Chest Exam date and time: 01/24/2025 11:23 PM Age: 59 years old Clinical indication: Other: Abdominal pain; Prior surgery; Surgery date: 6+ months; Surgery type: Aortic valve replacement TECHNIQUE: Imaging protocol: Radiologic exam of the chest. Views: 1 view. COMPARISON: CR XR CHEST 2V PA LATERAL 01/20/2025 4:17 PM FINDINGS: Lungs: Unremarkable. No consolidation. Pleural spaces: Unremarkable. No pleural effusion. No pneumothorax. Heart/Mediastinum: Prosthetic aortic valve. Bones/joints: Unremarkable. IMPRESSION: No acute findings. Dictated and Authenticated by: Tu Smith MD. Orderin Cordelia Alfaro MD
--- NOTE | 2025-01-24 23:58 | DI.VRAD_ITS ---
PROCEDURE INFORMATION: Exam: CTA Abdomen and Pelvis With Contrast Exam date and time: 01/24/2025 11:08 PM Age: 59 years old Clinical indication: Other: Gi bleed; Prior surgery; Surgery date: 6+ months; Surgery type: Kidney transplant TECHNIQUE: Imaging protocol: Computed tomographic angiography of the abdomen and pelvis with contrast. Exam focused on the arteries. 3D rendering (Not supervised by radiologist): MIP and/or 3D reconstructed images were created by the technologist. Contrast material: OMNJPAQUE 350; Contrast volume: 75 ml; Contrast route: INTRAVENOUS (IV); COMPARISON: CT ABDOMEN PELVIS CTA 12/29/2024 1:24 PM FINDINGS: Aorta: 2.2 cm abdominal aortic aneurysm. No rupture. No aortic dissection. Cholelithiasis. No cholecystitis or biliary ductal dilatation. 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 Renal arteries: No contrast opacification of the bilateral renal arteries. Right iliac arteries: No occlusion or significant stenosis. Left iliac arteries: No occlusion or significant stenosis. Liver: Hepatic cirrhosis. Gallbladder and biliary ducts: See Aorta finding. Pancreas: Unremarkable. No mass. No ductal dilation. Spleen: Splenomegaly. Adrenal glands: Unremarkable. No mass. Kidneys and ureters: End-stage renal disease of the [place] kidneys. Stomach and bowel: Colonic diverticulosis. No diverticulitis. No extravasation of contrast into the lumen of the GI tract to indicate active GI hemorrhage. No bowel wall thickening or intestinal obstruction. No pneumatosis or portal/mesenteric venous gas. Appendix: No evidence of appendicitis. Intraperitoneal space: No pneumoperitoneum or abscess. Lymph nodes: Unremarkable. No enlarged lymph nodes. Urinary bladder: Unremarkable. No mass. Reproductive: Hysterectomy. Bones/joints: No acute fracture. Soft tissues: Diffuse subcutaneous edema. IMPRESSION: 1. Hepatic cirrhosis. 2. Splenomegaly. 3. No extravasation of contrast into the lumen of the GI tract to indicate active GI hemorrhage. 4. Diffuse subcutaneous edema. Dictated and Authenticated by: Tu Smith MD. Orderin Cordelia Alfaro MD
[2025-01-25] VITALS (14 sets, daily range): BP systolic 123–163; BP diastolic 45–95; PULSE 66–88; RESP 20; O2SAT 94–100
[2025-01-25] MEDS: oxyCODONE 5 MG TAB PO (00:27)
[2025-01-25] MEDS: Albuterol/Ipratropium 3 ML UPD VIAL UPD (00:29)
--- NOTE | 2025-01-25 01:17 | ED.PROG_ITS ---
Date of service: 01/25/25 Time of Service: 01:20 Medical Decision Making Patient was signed out to me by Dr. Storey. Please refer to his HPI, physical exam, assessment and plan. At time of signout the patient CT scan results have returned normal with no signs of acute bleed, or acute intra-abdominal process requiring surgical intervention. Patient's hemoglobin level had normalized and showed no evidence of drop. She remains hemodynamically stable. On reassessment her pain appears to be focally located in the superficial tissues. There is no evidence of cellulitis or abscess. On reassessment it appears in conjunction with the CT scan that the symptomatology is associated with the location of the inferior aspect of her mesh. I suspect there may be some chronic irritation secondary to this. Otherwise there is no evidence of an acute surgical etiology. With the initial potential bleeding that she did have, there is concern for a gastric ulcer which I believe is unrelated to the pain given the location and her symptoms. We will give a prescription of Carafate for home, and recommend continued antacid use. Patient otherwise stable. Discussed red flags which to return. I have extensively reviewed the treatment plan and discharge instructions with the patient. I have addressed all patient concerns at this time. The patient was made aware of what symptoms to monitor for that would warrant a return to the emergency department. Discussed the plan with the patient, they demonstrate verbal understanding and agreement with our assessment and plan at this time. The documentation in this chart was dictated using [employer] dictation software. Please excuse any dictation errors. Quality:SDOH Health Related Social Needs: Health related social needs house/econ circumstance da ying activities lonely/isolated Discharge Plan Disposition Patient Disposition: Home Condition: Good Discharge Details Clinical Impression: Abdominal pain Primary Care Provider: Chano Neves ED Provider: Bhanu Mayorga Home Meds and New Rx's Prescriptions: New sucralfate [Carafate] 1 gram tablet 1 g PO BID Qty: 60 0RF No Action calcium acetate(phosphat bind) 667 mg capsule 667 mg PO QDAY metoprolol succinate [Toprol XL] 50 mg tablet extended release 24 hr 50 mg PO DAILY prazosin 1 mg capsule 1 mg PO QHS Qty: 30 2RF albuterol sulfate [Ventolin HFA] 90 mcg/actuation HFA aerosol inhaler 2 puff inhalation QID PRN (Reason: shortness of breath or wheezing) Qty: 8.5 5RF Breztri Aerosphere 160-9-4.8 mcg/actuation HFA aerosol inhaler 2 inh inhalation BID ipratropium-albuterol 0.5 mg-3 mg(2.5 mg base)/3 mL solution for nebulization 3 ml IH Q6H Qty: 90 0RF minoxidil 2.5 mg tablet 2.5 mg PO DAILY Patient Comments: TAKE 1 TABLET BY MOUTH EVERY DAY AT BEDTIME omeprazole 40 mg capsule,delayed release(DR/EC) 40 mg PO BID acetaminophen 500 mg capsule 500 mg PO Q6H PRN Rx Instructions: 12/10/2024: Per Med Reconciliation. -hb atorvastatin [Lipitor] 80 mg tablet 80 mg PO QHS Rx Instructions: 12/10/2024: Per Med Reconciliation. -hb epinephrine [Auvi-Q] 0.3 mg/0.3 mL auto-injector 0.3 mg IM Q5-15M PRN Rx Instructions: do not exceed 3 doses per episode 12/10/2024: Per Med Reconciliation. -hb trazodone 100 mg tablet 100 mg PO QHS PRN Rx Instructions: 12/10/2024: Per Med Reconciliation. -hb (DME) Aerochamber MV Spacer MISCELLANEOUS sevelamer carbonate 800 mg tablet 1,600 mg PO AC Patient Comments: TAKE 2 TABLETS BY MOUTH THREE TIMES DAILY WITH MEALS Eliquis 2.5 mg tablet 2.5 mg PO BID doxycycline monohydrate 100 mg capsule 100 mg PO BID 5 Days Qty: 10 0RF Discharge Instructions Instructions: Abdominal pain Additional Instructions: At this stage your CT scan shows no evidence of significant abnormality. There were no signs of active bleeding. Your hemoglobin levels are normal. Please continue to take your antiacid medications at home. I have sent you a new prescription of Carafate to take for the next month to help act as a salve for the inner lining of your stomach. Please take this as prescribed. If you have any repeat bleeding you may require further evaluation with an EGD. Please follow-up closely with your surgeon for reassessment. If you notice any worsening of your symptoms, or any new symptoms such as vomiting, diarrhea, fever, chills, shortness of breath, chest pain, numbness, weakness, or fainting , please return immediately to the emergency department for reevaluation. Please follow up with your primary care provider as soon as possible for reassessment and reevaluation. As always, it was a pleasure participating in your medical care today. Stand Alone Forms: Portal Information Referrals: Chano Neves MD [Primary Care Provider, Medicine]
[2025-01-25] MEDS: HYDROmorphone 2 MG/ML SYR 1 MG IVP (01:34)
[2025-01-25] MEDS: Pantoprazole 40 MG VIAL IVP (01:35)
[2025-01-25] MEDS: Sucralfate 1 GM TAB 2 GM PO (01:36)
== END 2025-01-25 02:30 | disposition home or self-care (01) ==
PROVIDERS: General Practice; Emergency Provider Student in an Organized Health Care Education/Training Program; PCP Family Medicine
DX: R10.33 Periumbilical pain (principal); Z59.89 Other problems related to housing and economic circumstances; Z60.8 Other problems related to social environment; Z73.9 Problem related to life management difficulty, unspecified
CPT/HCPCS: 00123; 80053; 82805; 86850; 86900; 86901; 93005; 94640; 96365; 96366; 96375; 99285; 71045; 74174; 83605; 83735; 84484; 85025; 93010; 99284; J0131; J1171; J2270; J2470; J3490; J7620

== ENCOUNTER 2025-01-29 16:15 | Inpatient (IN) | payer OTHER, SELFPAY ==
[2025-01-29] VITALS (37 sets, daily range): BP systolic 94–130; BP diastolic 35–76; PULSE 59–80; RESP 8–21; TEMP 35.7–36.9; O2SAT 95–100
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
[2025-01-29] MEDS: HYDROmorphone 2 MG/ML SYR 0.5 MG IVP (16:58)
[2025-01-29 17:07] LABS: Abs Immature Grans 0.06 10^3/uL (0.0-0.06); HCT 21.8 % (36.0-46.0); Immature Grans % 1.3 %; MCH 29.5 pg (27.0-33.0); MCHC 29.8 % (32.0-36.0); MCV 99 fL (80-95); MPV 11.3 fL (8.0-11.0); Platelet Count 169 10^3/uL (130-400); RBC 2.20 10^6/uL (3.93-5.22); RDW 17.2 % (11.7-14.6); RDW-SD 58.0 fL; WBC 4.46 10^3/uL (4.4-10.8)
[2025-01-29 17:08] LABS: HGB 6.5 g/dL (11.2-15.7)
[2025-01-29 17:11] LABS: INR 1.3 (0.9-1.1); Prothrombin Time 12.7 sec (9.1-11.1)
[2025-01-29 17:15] LABS: Lipase 33 U/L (<53)
[2025-01-29 17:16] LABS: Magnesium 1.7 mg/dL (1.6-2.6)
[2025-01-29 17:18] LABS: ALT 17 U/L (10-49); AST 25 U/L (<34); Albumin 3.8 g/dL (3.4-5.0); Alkaline Phosphatase 116 U/L (46-116); Anion Gap 6.3 mmol/L (3-11); BUN 15 mg/dL (9-23); Bilirubin, Total 0.50 mg/dL (0.2-1.2); CO2 37.8 mmol/L (20.0-31.0); Calcium 8.3 mg/dL (8.3-10.6); Chloride 97 mmol/L (98-107); Glucose 79 mg/dL (74-106); Potassium 3.8 mmol/L (3.5-5.1); Sodium 141 mmol/L (136-145); Total Protein 5.9 g/dL (5.7-8.2)
--- NOTE | 2025-01-29 17:20 | DI.CT_ITS ---
Exam(s) CT ABDOMEN PELVIS WO EXAM: CT ABDOMEN PELVIS WO CLINICAL HISTORY: anterior abd pain, BRBPR. TECHNIQUE: Imaging Protocol: Axial computed tomography images with coronal and sagittal reformatted images were created and reviewed. Oral: no COMPARISON: CR,XR XR CHEST 1V IN DI DEPT from 01/24/[address] ABDOMEN PELVIS CTA from 01/24/2025 FINDINGS: The exam is limited by motion particularly at the level of the pancreas.. Lung Bases: No acute findings. The heart is enlarged. Liver: Cirrhotic appearance, with nodular contour and enlargement of the caudate lobe. Normal density. No suspicious mass. Gallbladder and biliary tract: Cholelithiasis. No biliary dilation. Pancreas: Normal density. No abnormal calcifications or inflammatory process. Spleen: Stable splenomegaly. Kidneys: Extremely atrophic kidneys. Adrenal glands: No masses seen. Lymph nodes: Within normal limits. Vasculature: Abdominal aorta non-dilated. The aorta and branch vessels are heavily calcified. Soft tissues: Anasarca again noted. Small fat containing hernia in the right upper abdomen beneath the level of the ribs. Hernia mesh again noted in the midline above the umbilical region. Other hernia repair noted in the left mid abdomen. Bladder: Empty Bowel: No obstruction or bowel wall thickening. The appendix is normal. Diverticulosis is present from the descending through sigmoid regions. No evidence of diverticulitis. Peritoneal cavity: There is a trace amount of ascites noted around the liver. There is a small pocket of ascites in the low pelvis, increasing when compared to the previous exam. No focal collection. No mesenteric inflammatory response. Reproductive organs: Hysterectomy. Bones: Unremarkable for age. IMPRESSION: No acute abnormality identified. Cirrhotic liver. Splenomegaly. Mildly increased ascites compared to the prior exam. Anasarca again noted. Cholelithiasis. Diverticulosis. RADIATION DOSE DELIVERED: Total DLP DATA REPOSITORY: All CT scans at this facility are submitted to the National Radiology Data Registry (NRDR) Dose Index Registry (DIR) with the [employer] (ACR). RADIATION OPTIMIZATION: All CT scans at this facility use at least one of these dose optimization techniques: automated exposure control; mA and/or kV adjustment per patient size (includes targeted exams where dose is matched to clinical indication); or iterative reconstruction.
[2025-01-29] MEDS: HYDROmorphone 2 MG/ML SYR 1 MG IVP ×2 (17:40→21:06)
[2025-01-29 17:48] LABS: Troponin I 177 ng/L (<35)
[2025-01-29] MEDS: Oxymetazolone 0.05% SPRAY 15 ML BTL NS (19:34)
[2025-01-29 19:50] LABS: Troponin I 175 ng/L (<35)
[2025-01-29] MEDS: Tranexamic Acid 1,000 MG/10 ML VIAL 1000 MG IVP (20:32)
[2025-01-29 22:24] LABS: Troponin I 158 ng/L (<35)
[2025-01-29] MEDS: Ondansetron 4 MG/2 ML VIAL IVP (23:03)
[2025-01-29 23:14] LABS: HCT 25.5 % (36.0-46.0); HGB 7.6 g/dL (11.2-15.7)
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
[2025-01-29] MEDS: Albuterol/Ipratropium 3 ML UPD VIAL UPD (23:35)
[2025-01-30] VITALS (9 sets, daily range): BP systolic 90–115; BP diastolic 53–68; PULSE 62–79; RESP 12–22; TEMP 36.4–36.9; O2SAT 92–99
--- NOTE | 2025-01-30 00:21 | W.PC.ACHO ---
Registration Status: REG ER Primary Language: Preferred Language: Luxembourgish ED Information & Data Chief Complaint GI Bleed 01/29/25 16:24 Triage Note ISABELLA Lopez from HD with c/o 01/29/25 16:18 blood in stool. Pt seen for same. Hgb 7.1 at HD today. Pt had full dialysis. Medical / Surgical History (Last Reviewed 01/30/25 @ 00:17 by Willard Holt) POLST (Physician Orders for Life-Sustaining Treatment) Post-traumatic stress disorder, unspecified Unspecified cirrhosis of liver Personal history of suicidal behavior Atypical atrial flutter Alcohol abuse, in remission GI bleeding Fall Neck pain Right upper quadrant abdominal pain Open abdominal wall wound Personal history of nicotine dependence History of attempted suicide Axillary lymphadenopathy Nail dystrophy Cannabis dependence Cyst of ovary (08/20/12) Depression (09/14/12) Recurrent urinary tract infection Upper GI bleed (05/17/14) Umbilical hernia Hyperparathyroidism, unspecified (02/09/11) Diverticulitis of large intestine without perforation or abscess with bleeding Bleeding hemorrhoids (01/08/13) (Last Reviewed 01/30/25 @ 00:17 by Willard Holt) Aortic valve replaced H/O aortic valve replacement History of kidney transplant TRANSPLANT, KIDNEY (~1997) Abdominal hysterectomy (~2006) Repair of umbilical hernia Most Recent Vital Signs Temperature 36.9 C 01/29/25 18:53 Temperature Source Oral 01/29/25 16:18 Pulse 80 01/29/25 19:36 Pulse Rhythm Regular 01/29/25 17:43 Pulse Strength Normal 01/29/25 17:43 Pulse 66 01/29/25 19:32 Respiratory Rate 20 01/29/25 19:36 Respiratory Effort Normal 01/29/25 17:43 Respiratory Depth Normal 01/29/25 17:43 Respiratory Pattern Normal 01/29/25 17:43 Blood Pressure 119/76 01/29/25 19:36 Blood Pressure Mean 90 01/29/25 19:36 Blood Pressure Position Supine 01/29/25 17:43 Pulse Oximetry 95 01/29/25 19:36 Oxygen Delivery Method Nasal Cannula 01/29/25 18:53 Oxygen Flow Rate 3 01/29/25 18:53 Pain Level 9 01/29/25 21:06 Allergies cephalexin monohydrate (From Keflex) Allergy (Severe, Verified 01/24/25 20:31) trouble breathing colchicine Allergy (Verified 01/24/25 20:31) Unknown allopurinol Adverse Reaction (Intermediate, Verified 01/24/25 20:31) gout breakout erythromycin base Adverse Reaction (Intermediate, Verified 01/24/25 20:31) gout breakout Precautions Isolation Standard precaution 01/29/25 16:23 IV IV Catheter Type [Left Forearm Saline Lock ] IV Catheter Gauge [Left 20 Forearm] Diet Orders Category Date Time Status Nothing Per Oral [DIET] Nutrition 01/30/25 00:01 Active Diagnostics 01/30/25 01/29/25 01/29/25 Range/Units 05:35 23:06 21:34 WBC Pending (4.4-10.8) 10^3/uL RBC Pending (3.93-5.22) 10^6/uL Hgb Pending 7.6 L (11.2-15.7) g/dL Hct Pending 25.5 L (36.0-46.0) % MCV Pending (80-95) fL MCH Pending (27.0-33.0) pg MCHC Pending (32.0-36.0) % RDW Pending (11.7-14.6) % Plt Count Pending (130-400) 10^3/uL MPV Pending (8.0-11.0) fL Immature Gran % % Neutrophils % % Lymphocytes % % Monocytes % % Eosinophils % % Basophils % % Nucleated RBC % (0.0-0.3) % Absolute Neutrophils (1.2-6.7) 10^3/uL Absolute Lymphocytes (1.2-3.4) 10^3/uL Absolute Monocytes (0.1-0.8) 10^3/uL Absolute Eosinophils (0.0-0.7) 10^3/uL Absolute Basophils (0.0-0.2) 10^3/uL PT (9.1-11.1) sec INR (0.9-1.1) Sodium (136-145) mmol/L Potassium (3.5-5.1) mmol/L Chloride (98-107) mmol/L Carbon Dioxide (20.0-31.0) mmol/L Anion Gap (3-11) mmol/L BUN (9-23) mg/dL Creatinine (0.55-1.02) mg/dL Est GFR (CKD-EPI 2020) (mL/min/1.73m2) Glucose (74-106) mg/dL Calcium (8.3-10.6) mg/dL Magnesium (1.6-2.6) mg/dL Total Bilirubin (0.2-1.2) mg/dL AST (<34) U/L ALT (10-49) U/L Alkaline Phosphatase (46-116) U/L Troponin I 158 H* (<35) ng/L Total Protein (5.7-8.2) g/dL Albumin (3.4-5.0) g/dL Lipase (<53) U/L ABO/Rh Antibody Screen Crossmatch 01/29/25 01/29/25 Range/Units 19:09 16:44 WBC 4.46 (4.4-10.8) 10^3/uL RBC 2.20 L (3.93-5.22) 10^6/uL Hgb 6.5 L* (11.2-15.7) g/dL Hct 21.8 L (36.0-46.0) % MCV 99 H (80-95) fL MCH 29.5 (27.0-33.0) pg MCHC 29.8 L (32.0-36.0) % RDW 17.2 H (11.7-14.6) % Plt Count 169 (130-400) 10^3/uL MPV 11.3 H (8.0-11.0) fL Immature Gran % 1.3 % Neutrophils % 72.1 % Lymphocytes % 9.4 % Monocytes % 9.2 % Eosinophils % 7.6 % Basophils % 0.4 % Nucleated RBC % 0.0 (0.0-0.3) % Absolute Neutrophils 3.21 (1.2-6.7) 10^3/uL Absolute Lymphocytes 0.42 L (1.2-3.4) 10^3/uL Absolute Monocytes 0.41 (0.1-0.8) 10^3/uL Absolute Eosinophils 0.34 (0.0-0.7) 10^3/uL Absolute Basophils 0.02 (0.0-0.2) 10^3/uL PT 12.7 H (9.1-11.1) sec INR 1.3 H (0.9-1.1) Sodium 141 (136-145) mmol/L Potassium 3.8 (3.5-5.1) mmol/L Chloride 97 L (98-107) mmol/L Carbon Dioxide 37.8 H (20.0-31.0) mmol/L Anion Gap 6.3 (3-11) mmol/L BUN 15 (9-23) mg/dL Creatinine 1.9 H (0.55-1.02) mg/dL Est GFR (CKD-EPI 2020) 26.66 (mL/min/1.73m2) Glucose 79 (74-106) mg/dL Calcium 8.3 (8.3-10.6) mg/dL Magnesium 1.7 (1.6-2.6) mg/dL Total Bilirubin 0.50 (0.2-1.2) mg/dL AST 25 (<34) U/L ALT 17 (10-49) U/L Alkaline Phosphatase 116 (46-116) U/L Troponin I 175 H* 177 H* (<35) ng/L Total Protein 5.9 (5.7-8.2) g/dL Albumin 3.8 (3.4-5.0) g/dL Lipase 33 (<53) U/L ABO/Rh A Positive Antibody Screen NEGATIVE Crossmatch See Detail Intake and Output - 24 Hour Total 01/29/25 16:13 thru 01/29/25 16:26 Weight 57 kg Other: Emesis Description None Falls Risk Assessment History of Falls No History 01/29/25 16:26 Contributing Factors No Factors 01/29/25 16:26 Ambulatory Aids Independent 01/29/25 16:26 Tubes/Lines W/no contributing factors 01/29/25 16:26 Gait Evaluation No gait disturbance 01/29/25 16:26 Cognition No cognitive impairment 01/29/25 16:26 Fall Total Score 10 01/29/25 16:26 Level of Risk Standard/Low Risk 01/29/25 16:26 Attestation Statement: By documenting the first initial, last name, and credentials of the reporting nurse below, both parties acknowledge that all relevant information regarding the patient handoff has been communicated, and that all questions have been addressed to ensure continuity and safety of care. Additional Patient Information/Comments: Report Received From: Ivy Zarate
[2025-01-30] MEDS: Prazosin 1 MG CAP PO (02:29)
[2025-01-30] MEDS: Atorvastatin 40 MG TAB 80 MG PO (02:29)
[2025-01-30] MEDS: Acetaminophen 325 MG TAB 650 MG PO ×2 (05:46→14:03)
[2025-01-30 06:35] LABS: HCT 22.2 % (36.0-46.0); MCH 29.6 pg (27.0-33.0); MCHC 30.2 % (32.0-36.0); MCV 98 fL (80-95); MPV 11.3 fL (8.0-11.0); Platelet Count 167 10^3/uL (130-400); RBC 2.26 10^6/uL (3.93-5.22); RDW 18.6 % (11.7-14.6); RDW-SD 61.5 fL; WBC 5.68 10^3/uL (4.4-10.8)
[2025-01-30 06:40] LABS: HGB 6.7 g/dL (11.2-15.7)
[2025-01-30 06:55] LABS: Anion Gap 7.4 mmol/L (3-11); BUN 27 mg/dL (9-23); CO2 34.8 mmol/L (20.0-31.0); Calcium 8.0 mg/dL (8.3-10.6); Chloride 96 mmol/L (98-107); Glucose 77 mg/dL (74-106); Potassium 5.2 mmol/L (3.5-5.1); Sodium 138 mmol/L (136-145)
[2025-01-30] MEDS: Metoprolol CR 50 MG TABCR PO (09:08)
[2025-01-30] MEDS: Omeprazole 20 MG CAPCR 40 MG PO (09:08)
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
--- NOTE | 2025-01-30 17:30 | PDOC.CMDIS ---
Date of service: 01/30/25 Time of Service: 17:30 LACE Index Scoring Tool Questions: Length of Stay (in days): 1 Was the patient admitted via the E.D.?: Yes Comorbidities: Congestive Heart Failure, Chronic Pulmonary Disease and Liver or Renal Disease E.D. Visits: 16 Answers: Total Score: 13 Risk of Readmission: High Risk Care Management Discharge Plan Reason for Hospitalization: GIB and epistaxis. Discharge Plan: Earlene presented to the ED yesterday afternoon with a GIB and a nose bleed. Hgb below 7, and she received 2 units of PRBS. Earlene is a dialysis patient, and was transferred to [facility] for continued care and evaluation. Earlene was transported via EMS. CM was not able to meet with Earlene prior to her discharge. SDOH Health Related Social Needs: Health related social needs house/econ circumstance daily activities lonely/isolated
== END 2025-01-30 14:30 | disposition short-term general hospital (02) | DRG 377 ==
LOC: ER 23:32 → MS 01-30 00:27
PROVIDERS: Admitting Provider Family Medicine; Emergency Provider Emergency Medicine; PCP Family Medicine; Responsible Provider Family Medicine; Visit Provider Family Medicine
DX: K27.4 Chronic or unspecified peptic ulcer, site unspecified, with hemorrhage (principal); N18.6 End stage renal disease; I12.0 Hypertensive chronic kidney disease with stage 5 chronic kidney disease or end stage renal disease; K76.6 Portal hypertension; I48.92 Unspecified atrial flutter; Z94.0 Kidney transplant status; K21.01 Gastro-esophageal reflux disease with esophagitis, with bleeding; K70.31 Alcoholic cirrhosis of liver with ascites; D63.1 Anemia in chronic kidney disease; Z99.2 Dependence on renal dialysis; R04.0 Epistaxis; J44.9 Chronic obstructive pulmonary disease, unspecified; Z79.899 Other long term (current) drug therapy; Z79.01 Long term (current) use of anticoagulants; F17.210 Nicotine dependence, cigarettes, uncomplicated; R10.9 Unspecified abdominal pain; R74.8 Abnormal levels of other serum enzymes; I48.91 Unspecified atrial fibrillation; Z95.3 Presence of xenogenic heart valve; R59.0 Localized enlarged lymph nodes; Z66 Do not resuscitate; G47.30 Sleep apnea, unspecified; Z59.89 Other problems related to housing and economic circumstances; F10.11 Alcohol abuse, in remission; E89.2 Postprocedural hypoparathyroidism; K80.20 Calculus of gallbladder without cholecystitis without obstruction; K57.30 Diverticulosis of large intestine without perforation or abscess without bleeding; R45.89 Other symptoms and signs involving emotional state
CPT/HCPCS: 00123; 30903; 36415; 80048; 80053; 83690; 85027; 86850; 86900; 86901; 86920; 94640; 96374; 96375; 96376; 99291; 74176; 83735; 84484; 85014; 85018; 85025; 85610; 99222; 99238; J1171; J2405; J7620; P9016